=== PATIENT | female | born 1955 | race Caucasian/White ===

== ENCOUNTER 2017-12-22 17:22 | Emergency (ER) | payer SELFPAY ==
--- NOTE | 2017-12-22 18:23 | EDPHYS ---
Physician Documentation [facility] Name: Lisa Acosta Age: 62 yrs Sex: Female : 1955 Arrival Date: 12/22/2017 Time: 17:23 Bed 19 Private MD: ED Physician Gideon Cobos HPI: 12/22 18:12 This 62 yrs old Female presents to ER via Ambulatory with complaints of cp Insect Bite. 18:12 The patient presents with a bite, by an insect. The complaints affect the left gluteal cp fold. Onset: The symptoms/episode began/occurred noticed today. Associated signs and symptoms: Pertinent positives: drainage, Pertinent negatives fever. Historical: - Allergies: 17:40 Bactrim DS; aj - Home Meds: 17:40 metformin 500 mg Oral tab 2 times per day [Active]; morphine 15 mg Oral TbER 1 tab aj every 6 hours [Active]; - PMHx: 17:40 colon cancer (February 10, 2016); Diabetes - NIDDM; Hypertension; aj - PSHx: 17:40 None; aj - Immunization history:: Adult Immunizations up to date. - Social history:: Smoking status: Patient uses tobacco products, smokes one-half pack cigarettes per day. ROS: 18:13 Eyes: Negative for injury, pain, redness, and discharge. cp 18:13 Constitutional: Negative for body aches, chills, fever, poor PO intake. 18:13 ENT: Negative for drainage from ear(s), ear pain, sore throat, difficulty swallowing, difficulty handling secretions. 18:13 Cardiovascular: Negative for chest pain, edema, palpitations. 18:13 Respiratory: Negative for cough, shortness of breath, wheezing. 18:13 Abdomen/GI: Negative for abdominal pain, nausea, vomiting, and diarrhea. 18:13 Skin: Positive for cellulitis, of the left gluteal fold. 18:13 All other systems are negative. Exam: 18:19 Head/Face: Normocephalic, atraumatic. cp 18:19 Constitutional: The patient appears in no acute distress, alert, awake, non-toxic, well developed, well nourished. 18:19 Eyes: Periorbital structures: appear normal, Conjunctiva: normal, no exudate, no injection, Lids and lashes: appear normal, bilaterally. 18:19 ENT: External ear(s): are unremarkable, Nose: is normal, Mouth: is normal. 18:19 Chest/axilla: Inspection: normal, Palpation: is normal, no crepitus, no tenderness. 18:19 Cardiovascular: Rate: normal. 18:19 Respiratory: the patient does not display signs of respiratory distress, Respirations: normal, no use of accessory muscles, no retractions, no splinting, no tachypnea. 18:19 Abdomen/GI: Exam negative for discomfort, distension, guarding, Inspection: abdomen appears normal. 18:19 Skin: cellulitis, that is mild, well demarcated, on the left gluteal fold. Vital Signs: 17:40 BP 97 / 82; Pulse 90; Resp 21; Temp 98.2; Pulse Ox 96% on R/A; Weight 52.62 kg; Height aj 5 ft. 5 in. (165.10 cm); 17:40 Body Mass Index 19.30 (52.62 kg, 165.10 cm) MDM: 18:04 Patient medically screened. cp 18:20 Differential diagnosis: abscess, cellulitis, insect bite. cp 18:22 Data reviewed: vital signs, nurses notes, and as a result, I will discharge patient. cp 18:22 Counseling: I had a detailed discussion with the patient and/or guardian regarding: the cp historical points, exam findings, and any diagnostic results supporting the discharge/admit diagnosis, to return to the emergency department if symptoms worsen or persist or if there are any questions or concerns that arise at home. 12/22 18:18 Order name: Wound Culture cp Administered Medications: No medications were administered Disposition: 19:03 Co-signature as Attending Physician, Gideon Cobos MD. rn Disposition: 12/22/17 18:23 Discharged to Home. Impression: Cellulitis of left lower limb. - Condition is Stable. - Discharge Instructions: Cellulitis. - Prescriptions for Clindamycin HCl 300 mg Oral Capsule - take 1 capsule by ORAL route every 6 hours for 7 days; 28 capsule. - Medication Reconciliation Form, Thank You Letter, Antibiotic Education, Prescription Opioid Use form. - Follow up: Private Physician; When: 2 - 3 days; Reason: Recheck today's complaints. - Problem is new. - Symptoms are unchanged. Signatures: Dispatcher [employer] EDMS Jackson, Gisselle, RN RN Gideon Spencer MD MD rn Page, Corey, PA PA cp Elliott, Andrea, TANI RN ae1
--- NOTE | 2017-12-22 18:23 | ER ---
Nurse's Notes [facility] Name: Lisa Acosta Age: 62 yrs Sex: Female : 1955 Arrival Date: 12/22/2017 Time: 17:23 Bed 19 Private MD: Diagnosis: Cellulitis of left lower limb Presentation: 12/22 17:39 Presenting complaint: Patient states: Abscess to posterior left thigh that started 2 aj days ago. Transition of care: patient was not received from another setting of care. Onset of symptoms was December 20, 2017. Initial Sepsis Screen: Does the patient meet any 2 criteria? No. Patient's initial sepsis screen is negative. Does the patient have a suspected source of infection? No. Patient's initial sepsis screen is negative. Care prior to arrival: None. 17:39 Method Of Arrival: Ambulatory 17:39 Acuity: KIRAN 4 aj Triage Assessment: 17:40 Bite description: bite sustained to left hamstring by an unknown animal, animal aj information: vaccination(s) is not applicable. General: Appears in no apparent distress. comfortable, Behavior is calm, cooperative, appropriate for age. Pain: Complains of pain in left hamstring. Neuro: Level of Consciousness is awake, alert, obeys commands, Oriented to person, place, time, situation. Respiratory: Airway is patent Respiratory effort is even, unlabored, Respiratory pattern is regular, symmetrical. Derm: Skin is intact, is healthy with good turgor, Skin is pink, warm \T\ dry. normal. Derm: Abscess located on left hamstring is dime sized. Historical: - Allergies: 17:40 Bactrim DS; aj - Home Meds: 17:40 metformin 500 mg Oral tab 2 times per day [Active]; morphine 15 mg Oral TbER 1 tab aj every 6 hours [Active]; - PMHx: 17:40 colon cancer (February 10, 2016); Diabetes - NIDDM; Hypertension; aj - PSHx: 17:40 None; aj - Immunization history:: Adult Immunizations up to date. - Social history:: Smoking status: Patient uses tobacco products, smokes one-half pack cigarettes per day. Screenin:17 Abuse screen: Denies threats or abuse. Nutritional screening: No deficits noted. ae1 Tuberculosis screening: No symptoms or risk factors identified. Fall Risk None identified. Assessment: 18:15 General: Appears uncomfortable, slender, unkempt, Behavior is cooperative, anxious. ae1 Pain: Complains of pain in left hamstring. Neuro: Level of Consciousness is awake, alert, obeys commands, Oriented to person, place, time, situation. Cardiovascular: Patient's skin is warm and dry. Respiratory: Airway is patent Respiratory effort is even, unlabored, Respiratory pattern is regular, symmetrical. GI: No signs and/or symptoms were reported involving the gastrointestinal system. : No signs and/or symptoms were reported regarding the genitourinary system. EENT: No signs and/or symptoms were reported regarding the EENT system. Derm: Wound noted left hamstring Wound is Lesion is about the size of a dime with purulent drainage and surrounding redness, mild swelling to the circumference of the lesion. Derm: Musculoskeletal: No signs and/or symptoms reported regarding the musculoskeletal system. Vital Signs: 17:40 BP 97 / 82; Pulse 90; Resp 21; Temp 98.2; Pulse Ox 96% on R/A; Weight 52.62 kg; Height aj 5 ft. 5 in. (165.10 cm); 17:40 Body Mass Index 19.30 (52.62 kg, 165.10 cm) aj ED Course: 17:23 Patient arrived in ED. as 17:40 Triage completed. aj 17:40 Arm band placed on left wrist. Patient placed in an exam room. aj 18:03 Jeb March PA is PHCP. cp 18:03 Gideon Cobos MD is Attending Physician. cp 18:14 Fidencio Pinto, TANI is Primary Nurse. ae1 18:17 Placed in gown. Bed in low position. Call light in reach. Side rails up X 1. Pulse ox ae1 on. NIBP on. Warm blanket given. 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 ae1 18:36 Patient did not have IV access during this emergency room visit. ae1 Administered Medications: No medications were administered Outcome: 18:23 Discharge ordered by . cp 18:36 Discharged to home ambulatory. ae1 18:36 Condition: stable 18:36 Discharge instructions given to patient, Instructed on discharge instructions, follow up and referral plans. medication usage, Demonstrated understanding of instructions, Prescriptions given X 1. 18:37 Patient left the ED. ae1 Addendum: 12/25/2017 10:16 Addendum: Culture Results: Positive wound culture. Bacteria is resistant to, has i w intermediate sensitivity, or is not tested against prescribed antibiotics. Report given to BRE for further evaluation and then to tobacco scrap sifter for follow up with patient. Phone call Attempt #1 called in Doxycycline 100 mg PO BID X 7 days, #14, no refills, called in to [facility]. Signatures: Gisselle Jackson RN RN Aarti Helm Irene, RN RN Jeb Shin PA PA cp Elliott, Andrea, RN RN ae1
== END 2017-12-22 18:37 | disposition home or self-care (01) ==
LOC: ER 17:22
DX: L03.317 Cellulitis of buttock (principal); E11.9 Type 2 diabetes mellitus without complications; I10 Essential (primary) hypertension; Z88.1 Allergy status to other antibiotic agents
CPT/HCPCS: 87070; 87077; 87186; 87205; 99283

== ENCOUNTER 2018-03-14 13:23 | Inpatient (IN) | payer OTHER, SELFPAY ==
[2018-03-14] MEDS ORDERED: NA CHLORIDE 0.9% 1,000 ML ONE ×2 (14:30→21:32)
[2018-03-14 14:53] LABS: ALT/SGPT 14 U/L (12-78); AST/SGOT 16 U/L (15-37); Albumin 3.1 g/dL (3.4-5.0); Alkaline Phosphatase 63 U/L (45-117); BUN Blood Urea Nitrogen 11 mg/dL (7-18); Bicarbonate 27 mmol/L (21-32); Bilirubin Direct < 0.1 mg/dL (0-0.2); Bilirubin Total 0.3 mg/dL (0.2-1.0); Glucose Level 140 mg/dL (74-106); Lipase 63 U/L (73-393); Potassium 3.6 mmol/L (3.5-5.1); Protein, Total 5.8 g/dL (6.4-8.2); Sodium Level 138 mmol/L (136-145)
[2018-03-14 15:03] LABS: Absolute Lymphocytes (CBC) 0.4 K/uL (0.7-4.9); Absolute Monocytes 0.2 K/uL (0.1-1.3); Basophils % 0.4 % (0-1.3); Eosinophils % 0.3 % (0-4.4); Lymphocytes % 6.3 % (15.3-44.8); MCH 37.7 pg (27.0-35.0); MCV 109.7 fL (80-100); MPV 7.8 fL (7.6-11.3); Monocytes % 3.8 % (3.3-12.3); RBC Red Blood Cell Count 1.88 M/uL (3.86-4.86)
[2018-03-14 15:22] LABS: Hematocrit 20.6 % (36.0-45.0)
[2018-03-14 15:34] LABS: Urine Blood 2+ (NEG); Urine Glucose NEGATIVE (NEG); Urine Protein NEGATIVE (NEG); Urine Specific Gravity 1.025 (1.005-1.030); Urine pH 5.5 (5.0-7.0)
[2018-03-14 15:39] LABS: Protime INR 0.96
[2018-03-14 15:46] LABS: Urine Bacteria <20 /HPF (<20)
[2018-03-14 15:47] LABS: Urine Culture Reflex Order NOT NEEDED
--- NOTE | 2018-03-14 17:10 | RAD REPORT ---
EXAM DESCRIPTION: CT - Abdomen Pelvis W Contrast - 03/14/2018 4:38 pm CLINICAL HISTORY: Abdominal pain/hematochezia/colon cancer COMPARISON: 2016 TECHNIQUE: Computed axial tomography of the abdomen pelvis was obtained. 100 cc Isovue-300 was admin istered intravenously. Oral contrast was not requested which limits evaluation of bowel. All CT scans are performed using dose optimization technique as appropriate and may include automated exposure control or mA/KV adjustment according to patient size. FINDINGS: The liver, spleen, pancreas, adrenal and right kidney appear unremarkable. 5 millimeter no nobstructing left renal calculus is present. Gallstones are seen without gallbladder wall thickening. The wall of the rectum is thickened. No perirectal lymph nodes are visualized. The wall of a segment of ascending colon appears thickened The appendix is normal No omental/ mesenteric nodules are seen. A lipoma along the right lateral abdominal wall is unchanged IMPRESSION: The wall of the rectum is thickened. This could indicate a proctitis or recurrent neopla sm Apparent thickening of the the wall of the ascending colon probably secondary to incomplete distentio n with a mass considered less likely Endoscopy may be helpful
[2018-03-14] MEDS ORDERED: ACETAMINOPHEN 500 MG TAB PO PRN (17:39)
--- NOTE | 2018-03-14 17:42 | ER ---
Nurse's Notes [facility] Name: Lisa Acosta Age: 62 yrs Sex: Female : 1955 Arrival Date: 03/14/2018 Time: 13:26 Bed 8 Private MD: None, None Diagnosis: Gastrointestinal hemorrhage, unspecified Presentation: 03/14 13:35 Presenting complaint: Patient states: on third round of treatment for colon cancer, had iw radiation treatment X 2 years ago and was told she may have blood in stool but today she has had large clots of bright and dark red blood. Transition of care: patient was not received from another setting of care. Onset of symptoms was March 14, 2018. Risk Assessment: Do you want to hurt yourself or someone else? Patient reports no desire to harm self or others. Initial Sepsis Screen: Does the patient meet any 2 criteria? No. Patient's initial sepsis screen is negative. Does the patient have a suspected source of infection? No. Patient's initial sepsis screen is negative. Care prior to arrival: None. 13:35 Method Of Arrival: Ambulatory iw 13:35 Acuity: KIRAN 3 iw Historical: - Allergies: 13:39 Bactrim DS; iw - Home Meds: 13:39 morphine 30 mg oral tab every 4 hours [Active]; Hydrocodone-Acetaminophen Oral iw [Active]; metformin 500 mg Oral tab 2 times per day [Active]; 03/15 00:07 ondansetron HCl 4 mg oral tab every 6 hours for Cancer Chemotherapy-Induced Nausea and tl3 Vomiting [Active]; Valtrex 1 gram Oral tab 1 tab 3 times per day for as needed [Active]; nystatin 100,000 unit/mL Oral susp 5 mL 3 times a day [Active]; morphine 15 mg Oral TbER 1 tab every 12 hours [Active]; diphenoxylate-atropine 2.5-0.025 mg Oral tab 2 tabs 2 times per day for Diarrhea [Active]; voltaren gel daily [Active]; bupropion HCl 150 mg Oral TbER 1 tab 2 times per day [Active]; lorazepam 1 mg Oral tab 1 tab 2 times per day for Anxiety [Active]; hydrocodone-acetaminophen 10-325 mg/15 mL(15 mL) oral soln every 6 hours for Pain [Active]; lisinopril 5 mg Oral tab 1 tab once daily [Active]; Lidocaine Viscous 2 % Oral soln 15 mL every 3 hours [Active]; - PMHx: 03/14 13:39 colon cancer (February 10, 2016); Diabetes - NIDDM; Hypertension; iw - PSHx: 13:39 Hysterectomy; Hernia repair; iw - Immunization history:: Adult Immunizations. - Social history:: Smoking status: Patient uses tobacco products, smokes one-half pack cigarettes per day. - Ebola Screening: : Patient negative for fever greater than or equal to 101.5 degrees Fahrenheit, and additional compatible Ebola Virus Disease symptoms Patient denies exposure to infectious person Patient denies travel to an Ebola-affected area in the 21 days before illness onset No symptoms or risks identified at this time. Screenin:45 Abuse screen: Denies threats or abuse. Nutritional screening: No deficits noted. tl3 Tuberculosis screening: No symptoms or risk factors identified. Fall Risk None identified. Assessment: 13:45 General: Appears uncomfortable, slender, well groomed, well developed, well nourished, tl3 Behavior is calm, cooperative, appropriate for age. Pain: Denies pain. Neuro: Level of Consciousness is awake, alert, obeys commands, Oriented to person, place, time, situation, Appropriate for age. Cardiovascular: Heart tones S1 S2 present Patient's skin is warm and dry. Respiratory: Airway is patent Respiratory effort is even, unlabored, Respiratory pattern is regular, symmetrical, Breath sounds are clear bilaterally. GI: Reports rectal bleeding, since yesterday had only one or two episodes but today has had nine or so, clot are bright red, pt on Chemo for colon cancer. : No signs and/or symptoms were reported regarding the genitourinary system. EENT: No signs and/or symptoms were reported regarding the EENT system. Derm: No signs and/or symptoms reported regarding the dermatologic system. 16:14 Reassessment: Patient appears in no apparent distress at this time. No changes from tl3 previously documented assessment. Patient and/or family updated on plan of care and expected duration. Pain level reassessed. Patient is alert, oriented x 3, equal unlabored respirations, skin warm/dry/pink. pt resting quietly. 17:15 Reassessment: Patient appears in no apparent distress at this time. No changes from tl3 previously documented assessment. Patient and/or family updated on plan of care and expected duration. Pain level reassessed. Patient is alert, oriented x 3, equal unlabored respirations, skin warm/dry/pink. pt has made several trips to the restroom for BM with blood clots present, last one was dime sized. 19:00 Reassessment: Patient appears in no apparent distress at this time. No changes from tl3 previously documented assessment. Patient and/or family updated on plan of care and expected duration. Pain level reassessed. Patient is alert, oriented x 3, equal unlabored respirations, skin warm/dry/pink. awaiting room assignment, ER Hold. Vital Signs: 13:39 BP 97 / 77; Pulse 100; Resp 18; Temp 98.0; Pulse Ox 100% on R/A; Weight 50.35 kg; iw Height 5 ft. 5 in. (165.10 cm); Pain 7/10; 13:45 BP 98 / 63; Pulse 73; Resp 18; Pulse Ox 100% on R/A; tl3 16:14 Pulse 74; Resp 18; Pulse Ox 98% ; tl3 17:23 BP 121 / 71; Pulse 84; Resp 18; Pulse Ox 100% ; tl3 18:00 BP 101 / 64; Pulse 87; Resp 18; Pulse Ox 100% ; tl3 19:00 BP 122 / 72; Pulse 98; Resp 16; Pulse Ox 100% ; tl3 07/17 03:59 BP 99 / 66; Pulse 75; Resp 16; Pulse Ox 99% on R/A; mt 06:52 BP 107 / 69; Pulse 95; Resp 18; Pulse Ox 96% on R/A; mt 03/14 13:39 Body Mass Index 18.47 (50.35 kg, 165.10 cm) iw ED Course: 03/14 13:26 Patient arrived in ED. mr 13:26 None, None is Private Physician. mr 13:38 Triage completed. iw 13:39 Arm band placed on. iw 13:41 Ranjeet Malcolm MD is Attending Physician. gs 13:45 Patient has correct armband on for positive identification. Placed in gown. Bed in low tl3 position. Call light in reach. Side rails up X 1. Pulse ox on. NIBP on. 13:45 No provider procedures requiring assistance completed. Inserted saline lock: 20 gauge tl3 in right forearm, using aseptic technique. 13:56 Jenifer Santos, RN is Primary Nurse. tl3 15:27 Notified ED physician of a critical lab result(s). Hgb=7.1, Hct=20.6. iw 16:17 Urine Dipstick--Ancillary (enter results) Sent. tl3 16:[address] tl3 16:39 CT Abd/Pelvis - W/Contrast In Process Unspecified. EDMS 16:39 CT completed. Patient tolerated procedure well. Patient moved back from CT. in 17:41 Thais Viveros MD is Hospitalizing Provider. gs 23:28 Patient admitted, IV remains in place. bb 03/15 05:43 Primary Nurse role handed off by Jenifer Santos RN rg2 Administered Medications: 03/14 14:30 Drug: NS 0.9% 1000 ml Route: IV; Rate: 1 bolus; Site: right forearm; Delivery: Primary tl3 tubing; 16:13 Follow up: IV Status: Completed infusion; IV Intake: 1000ml tl3 Intake: 16:13 IV: 1000ml; Total: 1000ml. tl3 Outcome: 17:42 Decision to Hospitalize by Provider. gs 20:00 Admitted to ER Hold. Please see [facility] for further documentation. 23:28 Condition: unchanged bb 03/15 08:39 Patient left the ED. ae1 Signatures: Dispatcher [employer] EDMS Kay Ardon rg2 Agnes Lin Brenda, RN RN bb Kathy Gotti RN RN Fidencio Pinto RN RN ae1 [place] mt Starr, Gregory, MD MD Jenifer Santos, RN RN tl3 Corrections: (The following items were deleted from the chart) 03/14 16:12 13:45 GI: Reports rectal bleeding, since yesterday had only one or two episodes but tl3 today has had nine or so, clot are bright red tl3 03/15 00:11 03/14 13:39 Home Meds: Ondansetron Oral; iw tl3
--- NOTE | 2018-03-14 17:43 | EDPHYS ---
Physician Documentation [facility] Name: Lisa Acosta Age: 62 yrs Sex: Female : 1955 Arrival Date: 03/14/2018 Time: 13:26 Bed 8 Private MD: None, None ED Physician Ranjeet Malcolm HPI: 03/14 17:58 This 62 yrs old Female presents to ER via Ambulatory with complaints of gs Bloody Stools. 17:58 The patient presents to the emergency department with rectal bleeding, a moderate gs amount. Onset: The symptoms/episode began/occurred yesterday. Abdominal pain: none is appreciated. Modifying factors: The symptoms are alleviated by nothing, the symptoms are aggravated by nothing. Associated signs and symptoms: Pertinent negatives: fever. Severity of symptoms: At their worst the symptoms were moderate in the emergency department the symptoms are unchanged. The patient has experienced similar episodes in the past, a few times. Historical: - Allergies: 13:39 Bactrim DS; iw - Home Meds: 13:39 morphine 30 mg oral tab every 4 hours [Active]; Hydrocodone-Acetaminophen Oral iw [Active]; metformin 500 mg Oral tab 2 times per day [Active]; 03/15 00:07 ondansetron HCl 4 mg oral tab every 6 hours for Cancer Chemotherapy-Induced Nausea and tl3 Vomiting [Active]; Valtrex 1 gram Oral tab 1 tab 3 times per day for as needed [Active]; nystatin 100,000 unit/mL Oral susp 5 mL 3 times a day [Active]; morphine 15 mg Oral TbER 1 tab every 12 hours [Active]; diphenoxylate-atropine 2.5-0.025 mg Oral tab 2 tabs 2 times per day for Diarrhea [Active]; voltaren gel daily [Active]; bupropion HCl 150 mg Oral TbER 1 tab 2 times per day [Active]; lorazepam 1 mg Oral tab 1 tab 2 times per day for Anxiety [Active]; hydrocodone-acetaminophen 10-325 mg/15 mL(15 mL) oral soln every 6 hours for Pain [Active]; lisinopril 5 mg Oral tab 1 tab once daily [Active]; Lidocaine Viscous 2 % Oral soln 15 mL every 3 hours [Active]; - PMHx: 03/14 13:39 colon cancer (February 10, 2016); Diabetes - NIDDM; Hypertension; iw - PSHx: 13:39 Hysterectomy; Hernia repair; iw - Immunization history:: Adult Immunizations. - Social history:: Smoking status: Patient uses tobacco products, smokes one-half pack cigarettes per day. - Ebola Screening: : Patient negative for fever greater than or equal to 101.5 degrees Fahrenheit, and additional compatible Ebola Virus Disease symptoms Patient denies exposure to infectious person Patient denies travel to an Ebola-affected area in the 21 days before illness onset No symptoms or risks identified at this time. ROS: 17:58 All other systems are negative. gs Exam: 17:58 Head/Face: Normocephalic, atraumatic. Eyes: Pupils equal round and reactive to light, gs extra-ocular motions intact. Lids and lashes normal. Conjunctiva and sclera are non-icteric and not injected. Cornea within normal limits. Periorbital areas with no swelling, redness, or edema. ENT: Nares patent. No nasal discharge, no septal abnormalities noted. Tympanic membranes are normal and external auditory canals are clear. Oropharynx with no redness, swelling, or masses, exudates, or evidence of obstruction, uvula midline. Mucous membranes moist. Neck: Trachea midline, no thyromegaly or masses palpated, and no cervical lymphadenopathy. Supple, full range of motion without nuchal rigidity, or vertebral point tenderness. No Meningismus. Chest/axilla: Normal chest wall appearance and motion. Nontender with no deformity. No lesions are appreciated. Cardiovascular: Regular rate and rhythm with a normal S1 and S2. No gallops, murmurs, or rubs. Normal PMI, no JVD. No pulse deficits. Respiratory: Lungs have equal breath sounds bilaterally, clear to auscultation and percussion. No rales, rhonchi or wheezes noted. No increased work of breathing, no retractions or nasal flaring. Abdomen/GI: Soft, non-tender, with normal bowel sounds. No distension or tympany. No guarding or rebound. No evidence of tenderness throughout. Back: No spinal tenderness. No costovertebral tenderness. Full range of motion. Skin: Warm, dry with normal turgor. Normal color with no rashes, no lesions, and no evidence of cellulitis. MS/ Extremity: Pulses equal, no cyanosis. Neurovascular intact. Full, normal range of motion. Neuro: Awake and alert, GCS 15, oriented to person, place, time, and situation. Cranial nerves II-XII grossly intact. Motor strength 5/5 in all extremities. Sensory grossly intact. Cerebellar exam normal. Normal gait. 17:58 Constitutional: The patient appears alert, awake. Vital Signs: 13:39 BP 97 / 77; Pulse 100; Resp 18; Temp 98.0; Pulse Ox 100% on R/A; Weight 50.35 kg; iw Height 5 ft. 5 in. (165.10 cm); Pain 7/10; 13:45 BP 98 / 63; Pulse 73; Resp 18; Pulse Ox 100% on R/A; tl3 16:14 Pulse 74; Resp 18; Pulse Ox 98% ; tl3 17:23 BP 121 / 71; Pulse 84; Resp 18; Pulse Ox 100% ; tl3 18:00 BP 101 / 64; Pulse 87; Resp 18; Pulse Ox 100% ; tl3 19:00 BP 122 / 72; Pulse 98; Resp 16; Pulse Ox 100% ; tl3 03/15 03:59 BP 99 / 66; Pulse 75; Resp 16; Pulse Ox 99% on R/A; mt 06:52 BP 107 / 69; Pulse 95; Resp 18; Pulse Ox 96% on R/A; mt 03/14 13:39 Body Mass Index 18.47 (50.35 kg, 165.10 cm) iw MDM: 03/14 13:51 Patient medically screened. 17:58 Differential diagnosis: gastritis, diverticulitis, hemorrhoids, tumor. Data reviewed: vital signs, nurses notes. Physician consultation: Oswald Martinez MD and will see patient in inpatient room. ED course: last chemo . 17:58 Physician consultation: Thais Viveros MD and will see patient in ED. 03/14 13:55 Order name: Basic Metabolic Panel; Complete Time: 16:02 03/14 13:55 Order name: CBC with Diff; Complete Time: 16:02 03/14 13:55 Order name: Hepatic Function; Complete Time: 16:02 03/14 13:55 Order name: Lipase; Complete Time: 16:02 03/14 13:55 Order name: Urine Microscopic Only; Complete Time: 16:02 03/14 13:55 Order name: Type And Screen 03/14 13:55 Order name: PT-INR; Complete Time: 16:02 03/14 15:25 Order name: Urine Dipstick--Ancillary (enter results) 03/14 15:25 Order name: Urine Dipstick-Ancillary; Complete Time: 16:02 EDND 03/14 15:36 Order name: ABO/RH no charge; Complete Time: 16:02 EDND 03/14 17:43 Order name: Basic Metabolic Panel EDND 03/14 17:43 Order name: Basic Metabolic Panel [facility] 03/14 17:43 Order name: Basic Metabolic Panel [facility] 03/14 17:43 Order name: Basic Metabolic Panel [facility] 03/14 16:03 Order name: CT Abd/Pelvis - W/Contrast; Complete Time: 17:11 03/14 17:43 Order name: CBC with Automated Diff EDND 03/14 17:43 Order name: CBC with Automated Diff [facility]ND 03/14 17:43 Order name: CBC with Automated Diff EDND 03/14 17:43 Order name: CBC with Automated Diff [facility] 03/14 17:43 Order name: Hematocrit [facility] 03/14 17:43 Order name: Hematocrit [facility] 03/14 17:43 Order name: Hematocrit [facility] 03/14 17:43 Order name: Hematocrit [facility] 03/14 17:43 Order name: Hemoglobin [facility] 03/14 17:43 Order name: Hemoglobin [facility] 03/14 17:43 Order name: Hemoglobin [facility] 03/14 17:43 Order name: Hemoglobin EDND 03/14 22:43 Order name: Glucose, Ancillary Testing EDND 03/15 06:59 Order name: Manual Differential [facility] 03/14 13:55 Order name: IV Saline Lock; Complete Time: 15:14 03/14 13:55 Order name: Labs collected and sent; Complete Time: 15:14 03/14 13:55 Order name: Urine Dipstick-Ancillary (obtain specimen); Complete Time: 15:14 03/14 17:43 Order name: CONS Pharmacy Consult [facility] 03/14 17:43 Order name: CONS Physician Consult [facility] 03/14 17:43 Order name: NPO; Complete Time: 19:47 EDMS Administered Medications: 14:30 Drug: NS 0.9% 1000 ml Route: IV; Rate: 1 bolus; Site: right forearm; Delivery: Primary tl3 tubing; 16:13 Follow up: IV Status: Completed infusion; IV Intake: 1000ml tl3 Disposition: 03/14/18 17:42 Hospitalization ordered by Thais Viveros for Inpatient Admission. Preliminary diagnosis is Gastrointestinal hemorrhage, unspecified. - Bed requested for Intensive Care Unit. - Status is Inpatient Admission. ae1 - Condition is Stable. - Problem is an acute exacerbation. - Symptoms have improved. UTI on Admission? No Critical care time excluding procedures: 17:58 Critical care time: Bedside Care: 10 minutes, Consultation: 10 minutes, Family gs Intervention: 10 minutes. Total time: 30 minutes Signatures: Dispatcher [employer] EDMS Kay Ardon rg2 Tania Rabago RN RN Kathy Gotti RN TANI Fidencio Pinto RN RN ae1 Ranjeet Malcolm MD MD Jenifer Santos RN RN tl3 Jazmyne Das Corrections: (The following items were deleted from the chart) 17:49 17:42 Hospitalization Ordered by Thais Viveros MD for Inpatient Admission. Preliminary eb diagnosis is Gastrointestinal hemorrhage, unspecified. Bed requested for Telemetry/MedSurg (Inpatient). Status is Inpatient Admission. Condition is Stable. Problem is an acute exacerbation. Symptoms have improved. UTI on Admission? No. gs 19:24 17:49 03/14/2018 17:42 Hospitalization Ordered by Thais Viveros MD for Inpatient rg2 Admission. Preliminary diagnosis is Gastrointestinal hemorrhage, unspecified. Bed requested for Telemetry/MedSurg (Inpatient). Status is Inpatient Admission. Condition is Stable. Problem is an acute exacerbation. Symptoms have improved. UTI on Admission? No. eb 03/15 00:11 03/14 13:39 Home Meds: Ondansetron Oral; tl3 03/15 05:46 03/14 19:24 03/14/2018 17:42 Hospitalization Ordered by Thais Viveros MD for Inpatient kl Admission. Preliminary diagnosis is Gastrointestinal hemorrhage, unspecified. Bed requested for [facility] ER HOLD. Status is Inpatient Admission. Condition is Stable. Problem is an acute exacerbation. Symptoms have improved. UTI on Admission? No. rg2 03/15 08:39 05:46 03/14/2018 17:42 Hospitalization Ordered by Thais Viveros MD for Inpatient ae1 Admission. Preliminary diagnosis is Gastrointestinal hemorrhage, unspecified. Bed requested for Intensive Care Unit. Status is Inpatient Admission. Condition is Stable. Problem is an acute exacerbation. Symptoms have improved. UTI on Admission? No. kl
[2018-03-14] MEDS ORDERED: D50W 25 GM/50 ML SYRINGE IV PRN (17:57)
[2018-03-14] MEDS ORDERED: GLUCAGON 1 MG/VIAL IM PRN (17:57)
[2018-03-14] MEDS ORDERED: NA CHLORIDE 0.9% 250 ML IV SCH (18:00)
[2018-03-14] MEDS: NA CHLORIDE 0.9% 1,000 ML IV SCH (18:00)
[2018-03-14] MEDS ORDERED: FUROSEMIDE 20 MG/ 2ML VIAL IV SCH (18:50)
[2018-03-14 19:52] LABS: Hematocrit 20.8 % (36.0-45.0)
[2018-03-14] MEDS ORDERED: NA CHLORIDE 0.9% 100 ML IV ONE (20:14)
[2018-03-14] MEDS ORDERED: NA CHLORIDE 0.9% 500 ML ONE (20:31)
[2018-03-14] MEDS: PANTOPRAZOLE 40 MG INJ IVP SCH (21:00)
[2018-03-14] MEDS: INSULIN -REGULAR HUMAN 50 UNIT/0.5 ML ML SQ SCH (21:00)
[2018-03-14 21:19] VITALS: BMI 18.4
[2018-03-14] MEDS ORDERED: HYDROCORTISONE SUC 100 MG INJ IV ONE (21:31)
[2018-03-14] MEDS ORDERED: PANTOPRAZOLE 40 MG INJ ONE (21:32)
[2018-03-14] MEDS ORDERED: NA CHLORIDE 0.9% 250 ML IV ONE (21:36)
[2018-03-14] MEDS ORDERED: HYDROCORTISONE SUC 100 MG INJ ONE (22:20)
[2018-03-15] MEDS ORDERED: FUROSEMIDE 20 MG/ 2ML VIAL ONE (01:25)
[2018-03-15 02:38] LABS: Hematocrit 30.4 % (36.0-45.0)
--- NOTE | 2018-03-15 04:32 | HP ---
Date of Admission: 03/14/2018 Primary Care Physician: Out of town. Chief Complaint: GI bleed. History Of Present Illness: The patient is a 62-year-old female with past medical history of colon cancer diagnosed 2 years ago, currently on chemotherapy at [facility] with last treatment on . The patient comes in with multiple episodes of GI bleeds today with bright red blood per rectum. The patient otherwise denies any nausea, vomiting, fever, or chills. Does report a little bit of lightheadedness. No dizziness or loss of consciousness. The patient's symptoms are constant, moderate, progressively worsening. No alleviating or aggravating factor. The patient came into the ER for further evaluation. Upon workup, her hemoglobin was 7.1. The patient was referred for admission for GI bleed. Dr. Martinez was consulted by the ER, who said he would evaluate the patient. The patient was then referred for admission. Past Medical History: History of colon cancer diagnosed 2 years ago. Currently on chemotherapy, diabetes, and hypertension. Past Surgical History: Hysterectomy and hernia repair bilaterally. Allergies: BACTRIM. Medications: List reviewed. Social History: The patient denies any alcohol use. Does smoke 2 packs per day , now cutting down to less than half a pack per day. Has been smoking for many years. Family History: Sister has leukemia. Review of Systems: An 11-point system reviewed, negative except as per HPI. Physical Examination: Vital Signs: Blood pressure 97/77, pulse 100, respirations 18, temperature 98, O2 100% on room air. General: Awake, alert, oriented x3, some mild distress, appears older than stated age female. HEENT: Normocephalic, atraumatic. PERRLA. EOMI. Dry mucous membranes. Oropharynx is clear. Poor dentition. Conjunctivae are anicteric. Neck: Supple. No JVD. Trachea midline. CV: S1, S2. Positive for murmur. Peripheral pulses are weak bilaterally. Respiratory: Moving air well bilaterally. No wheezing. No stridor. Gastrointestinal: Abdomen is soft. Mild tenderness to palpation in the suprapubic region. No guarding or rigidity. Bowel sounds positive. Extremities: No clubbing, cyanosis, or edema. Neuro: Cranial nerves 2 through 12 intact grossly. No focal neurological deficits. Speech is normal. Strength is symmetric in bilateral upper and lower extremities. Skin: No rashes. Normal skin turgor. Psych: Mood is okay. Affect is full. Insight and judgment are good. Laboratory Data: UA; negative nitrite, negative leukocyte, 5-10 rbc, 10-20 squamous epithelial cells, less than 20 bacteria. Sodium 138, potassium 3.6, chloride 104, CO2 of 27, BUN 11, creatinine 0.5, glucose 140, calcium 8, AST 16 , ALT is 14, albumin 3.1, INR 0.96. WBC 5.6, H and H 7.1 and 20.6, platelets 174. CT scan of the abdomen and pelvis personally reviewed, shows wall of the rectum is thickened. This could indicate a proctitis or recurrent neoplasm, apparent thickening of the wall of the ascending colon, probably secondary to incomplete distention with the mass considered less likely, endoscopy may be helpful. Assessment: A 62-year-old female with; 1. Acute gastrointestinal bleed. 2. Possible colitis. 3. Hypotension. 4. Diabetes mellitus type 2, non-insulin dependent. 5. Gastrointestinal, deep vein thrombosis prophylaxis addressed. No chemical anticoagulation due to gastrointestinal bleed. 6. Acute blood loss anemia: transfuse PRBCs. Monitor HH Plan: Consult GI. The patient will need blood transfusion. We will monitor H and H. Overall prognosis is poor. We will admit to ICU. We will obtain echocardiogram for murmur. MICHELLE Voice ID: [id number] DERIK
[2018-03-15] MEDS: NA CHLORIDE 0.9% 1,000 ML IV SCH ×2 (05:30→15:24)
[2018-03-15] MEDS ORDERED: NA CHLORIDE 0.9% 1,000 ML ONE (06:18)
[2018-03-15 06:19] LABS: Absolute Lymphocytes (CBC) 0.4 K/uL (0.7-4.9); Absolute Monocytes 0.2 K/uL (0.1-1.3); Absolute Neutrophil 2.7 K/uL (1.8-8.0); Basophils % 0.5 % (0-1.3); Eosinophils % 0.1 % (0-4.4); Hematocrit 25.3 % (36.0-45.0); Lymphocytes % 10.8 % (15.3-44.8); MCH 34.6 pg (27.0-35.0); MCV 98.4 fL (80-100); MPV 7.7 fL (7.6-11.3); Monocytes % 7.2 % (3.3-12.3); RBC Red Blood Cell Count 2.57 M/uL (3.86-4.86)
[2018-03-15 06:29] LABS: BUN Blood Urea Nitrogen 9 mg/dL (7-18); Bicarbonate 29 mmol/L (21-32); Glucose Level 128 mg/dL (74-106); Potassium 3.5 mmol/L (3.5-5.1); Sodium Level 141 mmol/L (136-145)
[2018-03-15 06:58] LABS: Platelet Estimate ADEQ
[2018-03-15 06:59] LABS: Anisocytosis 1+; Blood Morphology Comment NOTED (NOT SEEN); Poikilocytosis 1+
[2018-03-15] MEDS: INSULIN -REGULAR HUMAN 50 UNIT/0.5 ML ML SQ SCH ×4 (07:30→20:36)
[2018-03-15] MEDS: PANTOPRAZOLE 40 MG INJ IVP SCH ×2 (08:59→20:14)
--- NOTE | 2018-03-15 15:12 | PN ---
Date of Progress Note: 03/15/2018 Subjective: The patient is seen and examined, chart reviewed, and case discussed with RN. The patient had 1 further episode of bright red blood per rectum. She denies any lightheadedness or dizziness. Transferred up to the ICU this morning. Review of Systems: Negative except as above. Medications: List reviewed. Objective: Vital Signs: Temperature 97.8, heart rate 79, blood pressure 121/78 , respirations 17, O2 saturation 99% on room air. General: Awake, alert, oriented x3. Some mild distress, appears older than stated age. Cachectic female. BMI 18. CV: S1, S2. Positive murmur. Systolic ejection murmur, 3/6. Peripheral pulses present. Respiratory: Moving air well bilaterally. No wheezing. No stridor . Gastrointestinal: Abdomen is soft, nontender, nondistended. Positive bowel sounds. No guarding or rigidity. Extremities: No clubbing, cyanosis, or edema. No calf tenderness. Neuro: Cranial nerves 2 through 12 intact grossly. No focal deficits. Speech is normal. Skin: No rashes. Normal skin turgor. Laboratory Data: Sodium 141, potassium 3.5, chloride 106, CO2 29, BUN 9, creatinine 0.5, glucose 128, and calcium 8. H and H after transfusion went up to 10.6 this morning. WBC 3.3, H and H is 8.9, 25.3, platelets 131, and neutrophils 81%. Assessment And Plan: A 62-year-old female with; 1. Acute gastrointestinal bleed. The patient has bright red blood per rectum. We will keep n.p.o. for now. The patient will likely need scope. Dr. Martinez has been consulted. We will monitor for signs of bleeding. 2. Acute blood loss anemia secondary to above. The patient has been transfused 2 units of PRBCs. We will continue to monitor H and H, transfuse as needed. 3. hypotension. 4. Diabetes mellitus type 2, non-insulin dependent. We will continue with sliding scale insulin and Accu-Cheks. 5. Gastrointestinal and deep venous thrombosis prophylaxis addressed. No chemical anticoagulation due to gastrointestinal bleed. ADDENDUM: Spoke w Dr. Laws. Monitor HH for now, transfuse as needed. No immediate intervention planned. /LINDA Voice ID: [id number] Report ID: [id number] MTDD
[2018-03-15] MEDS ORDERED: DIPHENOX/ATROP SULF 1 TAB PO PRN (17:11)
[2018-03-15] MEDS ORDERED: VALACYCLOVIR 500 MG TAB PO PRN (17:11)
[2018-03-15] MEDS ORDERED: NYSTATIN 500,000 UNIT/5 ML UDC PO PRN (17:11)
[2018-03-15] MEDS ORDERED: BUPROPION HCL XL 150 MG TAB PO PRN (17:11)
[2018-03-15 17:13] LABS: Hematocrit 28.7 % (36.0-45.0)
[2018-03-15] MEDS: METRONIDAZOLE 500mg IVPB 500 MG/100 ML BAG IV SCH (17:30)
[2018-03-15] MEDS: MORPHINE *EXTENDED RELEASE* 15 MG TAB PO PRN (19:54)
[2018-03-15] MEDS: ENSURE ENLIVE 237 ML CAN PO SCH (20:12)
[2018-03-15] MEDS: CIPROFLOXACIN 400mg IV 400 MG/200 ML BAG IV SCH (20:12)
[2018-03-15] MEDS: LIDOCAINE VISCOUS 2% SOLN 15 ML UDC PO SCH (20:14)
[2018-03-16] MEDS: METRONIDAZOLE 500mg IVPB 500 MG/100 ML BAG IV SCH ×3 (01:06→16:56)
[2018-03-16] MEDS: NA CHLORIDE 0.9% 1,000 ML IV SCH (01:07)
[2018-03-16] MEDS: LORAZEPAM 1 MG TABLET PO PRN (02:48)
[2018-03-16 05:20] LABS: Absolute Lymphocytes (CBC) 0.3 K/uL (0.7-4.9); Absolute Monocytes 0.3 K/uL (0.1-1.3); Absolute Neutrophil 3.4 K/uL (1.8-8.0); Basophils % 0.3 % (0-1.3); Eosinophils % 1.2 % (0-4.4); Hematocrit 23.4 % (36.0-45.0); Lymphocytes % 7.6 % (15.3-44.8); MCH 34.8 pg (27.0-35.0); MCV 99.4 fL (80-100); MPV 7.6 fL (7.6-11.3); Monocytes % 7.6 % (3.3-12.3); RBC Red Blood Cell Count 2.36 M/uL (3.86-4.86)
[2018-03-16 07:01] LABS: BUN Blood Urea Nitrogen 7 mg/dL (7-18); Bicarbonate 28 mmol/L (21-32); Glucose Level 114 mg/dL (74-106); Sodium Level 144 mmol/L (136-145)
[2018-03-16 07:11] LABS: Potassium 2.8 mmol/L (3.5-5.1)
[2018-03-16] MEDS: INSULIN -REGULAR HUMAN 50 UNIT/0.5 ML ML SQ SCH ×4 (07:30→21:00)
[2018-03-16] MEDS: MORPHINE *EXTENDED RELEASE* 15 MG TAB PO PRN ×2 (07:38→21:38)
[2018-03-16] MEDS ORDERED: POTASSIUM CL 40 MEQ in NA CHLORIDE 0.9% 500 ML IV SCH (08:00)
[2018-03-16] MEDS: LISINOPRIL 5 MG TAB PO SCH (08:05)
[2018-03-16] MEDS: PANTOPRAZOLE 40 MG INJ IVP SCH ×2 (08:05→21:34)
[2018-03-16] MEDS: CIPROFLOXACIN 400mg IV 400 MG/200 ML BAG IV SCH ×2 (08:06→21:34)
[2018-03-16] MEDS: ENSURE ENLIVE 237 ML CAN PO SCH ×2 (08:06→21:00)
[2018-03-16] MEDS: LIDOCAINE VISCOUS 2% SOLN 15 ML UDC PO SCH ×3 (08:07→21:35)
--- NOTE | 2018-03-16 14:46 | PN ---
Date of Progress Note: 03/16/2018 Subjective: The patient seen and examined. Chart reviewed and case discussed with RN and Dr. Rodger pearce. The patient states her bloody diarrhea is improving and not having any bright red blood, but gurvinder e clots. She feels better. The patient received a total of 2 units of blood yesterday. Review of Systems: Negative except as above. Medications: List reviewed. Physical Examination: Vital signs: Temperature 98.5, heart rate 68, blood pressure 115/98, respirations 15, O2 98% on room air. General: Awake, alert, oriented x3 some mild distress, appears older than her stated age. Cachectic ill-appearing female. CV: S1 and S2. No murmurs. Regular rate and rhythm. Peripheral pulses present. Respiratory: Clear to auscultation bilaterally. No wheezing. No stridor. No use of accessory musc les. Gastrointestinal: Abdomen is soft, nontender, nondistended. Positive bowel sounds. Extremities: No clubbing, cyanosis, edema. Neurologic: Nonfocal. Laboratory Data: Sodium 144, potassium 2.8, chloride 110, CO2 of 28, BUN 7, creatinine 0.4, glucose 114, calcium 8. WBC 4, H and H 8.2 and 23.4, platelets 123, neutrophils 83%. Stool studies pending. Assessment And Plan: A 62-year-old female with: 1.Acute gastrointestinal bleed. The patient's bleeding has slowed down, may be secondary to colitis versus effects of chemotherapy and radiation. GI on the case. The patient had recent complete work up at [facility]. No intervention at this time. 2.Acute blood loss anemia secondary to above. The patient has received 4 units of blood total. We will continue to monitor H and H and transfuse as needed. 3.Hypertension, improving. Blood pressure now stable. 4.Diabetes mellitus type 2, non-insulin dependent with hyperglycemia. Continue sliding scale insuli n, Accu-Cheks. 5.Hypokalemia. We will replace and monitor. Check magnesium level. 6.GI and DVT prophylaxis. PPI and SCDs. No chemical anticoagulation. Plan: Continue IV PPI. We will transfer down to floor. Monitor closely. /LINDA Voice ID: [id number] Report ID: [id number]
[2018-03-17] MEDS: METRONIDAZOLE 500mg IVPB 500 MG/100 ML BAG IV SCH ×3 (00:39→16:42)
[2018-03-17] MEDS: LORAZEPAM 1 MG TABLET PO PRN (00:41)
[2018-03-17 05:27] LABS: BUN Blood Urea Nitrogen 5 mg/dL (7-18); Bicarbonate 30 mmol/L (21-32); Glucose Level 126 mg/dL (74-106); Potassium 3.5 mmol/L (3.5-5.1); Sodium Level 145 mmol/L (136-145)
[2018-03-17 05:32] LABS: Absolute Lymphocytes (CBC) 0.4 K/uL (0.7-4.9); Absolute Monocytes 0.4 K/uL (0.1-1.3); Absolute Neutrophil 2.9 K/uL (1.8-8.0); Basophils % 0.2 % (0-1.3); Eosinophils % 2.4 % (0-4.4); Hematocrit 22.6 % (36.0-45.0); MCH 34.8 pg (27.0-35.0); MCV 100.4 fL (80-100); MPV 7.8 fL (7.6-11.3); Monocytes % 9.8 % (3.3-12.3); RBC Red Blood Cell Count 2.25 M/uL (3.86-4.86)
[2018-03-17] MEDS: INSULIN -REGULAR HUMAN 50 UNIT/0.5 ML ML SQ SCH ×4 (07:30→21:00)
[2018-03-17] MEDS: CIPROFLOXACIN 400mg IV 400 MG/200 ML BAG IV SCH ×2 (09:25→21:46)
[2018-03-17] MEDS: ENSURE ENLIVE 237 ML CAN PO SCH ×2 (09:26→21:47)
[2018-03-17] MEDS: LISINOPRIL 5 MG TAB PO SCH (09:27)
[2018-03-17] MEDS: PANTOPRAZOLE 40 MG INJ IVP SCH ×2 (09:28→21:47)
[2018-03-17] MEDS: LIDOCAINE VISCOUS 2% SOLN 15 ML UDC PO SCH ×3 (09:28→21:47)
[2018-03-17 15:06] LABS: Hematocrit 24.8 % (36.0-45.0)
[2018-03-17] MEDS: MORPHINE *EXTENDED RELEASE* 15 MG TAB PO PRN (16:41)
--- NOTE | 2018-03-17 18:24 | PN ---
Date of Progress Note: 03/17/2018 Subjective: The patient seen and examined. Chart reviewed and case discussed with RN. The patient moved out of ICU yesterday, doing well, had several bouts of diarrhea, however, very little clot blee ding. Review of Systems: Negative except as above. Medications: Reviewed. Physical Examination: Vital Signs: Temperature 97.3, heart rate 72, blood pressure 124/74, respirations 12, O2 of 97% on r oom air. General: Awake, alert, oriented, no acute distress. CV: S1, S2. No murmurs. Respiratory: Moving air well bilaterally. Gastrointestinal: Abdomen is soft. Mild tenderness to palpation in the epigastric region. No rebou nd or guarding. No distention. Bowel sounds positive. Extremities: No clubbing, cyanosis, edema. Neurologic: Nonfocal. Laboratory Data: WBC 3.8, H and H are 7.8 and 22.6, platelets 115, neutrophils 76%. Sodium 145, pot assium 3.5, chloride 112, CO2 of 30, BUN 5, creatinine 0.5, glucose 126, calcium 8.3. C. diff is neg ative. Fecal leukocyte stain is few. Assessment And Plan: A 62-year-old female with: 1.Gastrointestinal bleed, acute, improving. This is likely secondary to chemotherapy and colitis. 2.Acute colitis. We will continue with IV antibiotics. Clostridium difficile ruled out. Stool cul tures pending. 3.Acute blood loss anemia secondary to gastrointestinal bleed, status post 4 units to packed red blo od cells. Continue to monitor H and H. hemoglobin is down to 7.8 today, however, improved overall. We will continue to monitor. 4.Hypotension, improving. Blood pressure now stable. 5.Diabetes mellitus type 2, non-insulin dependent with hyperglycemia. We will continue sliding-scal e insulin. 6.Hypokalemia, replaced. We will continue to monitor. 7.Gastrointestinal, deep vein thrombosis prophylaxis with proton-pump inhibitor and SCDs. No chemic al anticoagulation secondary to gastrointestinal bleed. SA/MODL Voice ID: [id number] Report ID: [id number]
[2018-03-18] MEDS: METRONIDAZOLE 500mg IVPB 500 MG/100 ML BAG IV SCH ×3 (00:43→16:08)
[2018-03-18] MEDS: LORAZEPAM 1 MG TABLET PO PRN ×2 (00:45→22:09)
[2018-03-18] MEDS: INSULIN -REGULAR HUMAN 50 UNIT/0.5 ML ML SQ SCH ×4 (07:30→21:00)
[2018-03-18] MEDS: CIPROFLOXACIN 400mg IV 400 MG/200 ML BAG IV SCH ×2 (08:47→20:27)
[2018-03-18] MEDS: PANTOPRAZOLE 40 MG INJ IVP SCH ×2 (08:48→20:28)
[2018-03-18] MEDS: LIDOCAINE VISCOUS 2% SOLN 15 ML UDC PO SCH ×3 (08:48→20:28)
[2018-03-18] MEDS: LISINOPRIL 5 MG TAB PO SCH (08:48)
[2018-03-18] MEDS: ENSURE ENLIVE 237 ML CAN PO SCH ×2 (08:49→20:27)
[2018-03-18] MEDS ORDERED: VANCOMYCIN 1 GM in NA CHLORIDE 0.9% 500 ML IVPB SCH (09:00)
[2018-03-18] MEDS: VANCOMYCIN/NS 1 gm 1 GM/250 ML BAG IV SCH ×2 (09:39→21:24)
[2018-03-18 10:30] LABS: Absolute Lymphocytes (CBC) 0.3 K/uL (0.7-4.9); Absolute Monocytes 0.4 K/uL (0.1-1.3); Absolute Neutrophil 3.6 K/uL (1.8-8.0); Basophils % 0.1 % (0-1.3); Eosinophils % 1.7 % (0-4.4); Hematocrit 25.6 % (36.0-45.0); Lymphocytes % 7.7 % (15.3-44.8); MCH 34.4 pg (27.0-35.0); MCV 101.1 fL (80-100); MPV 7.9 fL (7.6-11.3); Monocytes % 8.9 % (3.3-12.3); RBC Red Blood Cell Count 2.53 M/uL (3.86-4.86)
[2018-03-18 10:42] LABS: BUN Blood Urea Nitrogen 9 mg/dL (7-18); Bicarbonate 29 mmol/L (21-32); Glucose Level 121 mg/dL (74-106); Potassium 3.6 mmol/L (3.5-5.1); Sodium Level 141 mmol/L (136-145)
[2018-03-18 13:20] LABS: Blood Morphology Comment NOT SEEN (NOT SEEN); Platelet Estimate DECR; Urine White Blood Cell Casts OK
--- NOTE | 2018-03-18 13:31 | PN ---
Date of Progress Note: 03/18/2018 Subjective: The patient is seen and examined, chart reviewed, and case discussed with RN and Dr. Laws. The patient not having any further GI bleed. Feels better. Able to tolerate diet. Review of Systems: Negative except as above. Medications: List reviewed. Objective: Vital Signs: Temperature 97.9, heart rate 73, blood pressure 110/70 , respirations 16, and O2 96% on room air. General: Awake, alert, oriented x3, not in any acute distress. Somewhat ill- appearing, appears older than stated age. Cachectic. BMI 18. CV: S1, S2. No murmurs. Positive murmur, systolic ejection, 3/6. Respiratory: Clear to auscultation bilaterally. No wheezing. Gastrointestinal: Abdomen is soft, nontender, nondistended. Positive bowel sounds. Extremities: No clubbing, cyanosis, edema. Neurologic: Nonfocal. Laboratory Data: WBC 4.4, H and H 8.7 and 25.6, platelets 115, and neutrophils 81%. Sodium 141, potassium 3.6, chloride 106, CO2 29, BUN 9, and creatinine 0.6. Stool culture showing MRSA, sensitive to clinda and vanc. Assessment: A 62-year-old female with; 1. Acute gastrointestinal bleed, resolving, likely secondary to colitis related to chemotherapy. Clostridium difficile ruled out. 2. Acute colitis. Stool culture now showing methicillin-resistant Staphylococcus. We will add vancomycin. We will discontinue Cipro and Flagyl. 3. Acute blood loss anemia secondary to gastrointestinal bleed, status post 4 units PRBCs in total. H and H are stable. No further bleeding. Continue to monitor. 4. Hypotension. Blood pressure improving. 5. Diabetes mellitus type 2, noninsulin dependent with hyperglycemia. Continue sliding scale insulin. 6. Hypokalemia, improved. 7. Gastrointestinal and deep venous thrombosis prophylaxis with PPI and SCDs. No chemical anticoagulation due to gastrointestinal bleed. 8. Thrombocytopenia. Plan: 1. Likely discharge in the next 24-48 hours once improving and the patient tolerating diet. 2. Systolic ejection murmur. We will obtain echocardiogram to rule out any vegetation. /LINDA Voice ID: [id number] Report ID: [id number] DERIK
[2018-03-18] MEDS: MORPHINE *EXTENDED RELEASE* 15 MG TAB PO PRN (16:09)
[2018-03-19] MEDS: METRONIDAZOLE 500mg IVPB 500 MG/100 ML BAG IV SCH ×2 (00:43→10:33)
[2018-03-19 05:31] LABS: Absolute Lymphocytes (CBC) 0.2 K/uL (0.7-4.9); Absolute Monocytes 0.5 K/uL (0.1-1.3); Absolute Neutrophil 2.9 K/uL (1.8-8.0); Basophils % 0.2 % (0-1.3); Eosinophils % 1.6 % (0-4.4); Hematocrit 22.4 % (36.0-45.0); Lymphocytes % 5.4 % (15.3-44.8); MCH 33.8 pg (27.0-35.0); MCV 101.1 fL (80-100); MPV 7.9 fL (7.6-11.3); RBC Red Blood Cell Count 2.22 M/uL (3.86-4.86)
[2018-03-19 05:35] LABS: BUN Blood Urea Nitrogen 11 mg/dL (7-18); Bicarbonate 27 mmol/L (21-32); Glucose Level 124 mg/dL (74-106); Potassium 3.4 mmol/L (3.5-5.1); Sodium Level 143 mmol/L (136-145)
[2018-03-19] MEDS: INSULIN -REGULAR HUMAN 50 UNIT/0.5 ML ML SQ SCH ×4 (07:30→20:50)
[2018-03-19] MEDS: MORPHINE *EXTENDED RELEASE* 15 MG TAB PO PRN ×2 (07:39→19:47)
[2018-03-19 08:24] LABS: Blood Morphology Comment NOT SEEN (NOT SEEN); Platelet Estimate DECR; Urine White Blood Cell Casts OK
[2018-03-19] MEDS: ENSURE ENLIVE 237 ML CAN PO SCH ×2 (09:00→19:48)
[2018-03-19] MEDS: PANTOPRAZOLE 40 MG INJ IVP SCH (09:00)
[2018-03-19] MEDS: LISINOPRIL 5 MG TAB PO SCH (09:00)
[2018-03-19] MEDS: VANCOMYCIN/NS 1 gm 1 GM/250 ML BAG IV SCH (10:00)
[2018-03-19] MEDS: CIPROFLOXACIN 400mg IV 400 MG/200 ML BAG IV SCH (10:33)
[2018-03-19] MEDS: LIDOCAINE VISCOUS 2% SOLN 15 ML UDC PO SCH ×3 (10:34→19:47)
[2018-03-19] MEDS: ONDANSETRON 4 MG/2 ML VIAL IV PRN ×2 (10:34→19:47)
--- NOTE | 2018-03-19 11:41 | P.PN ---
Subjective Date of Service: 03/19/18 Chief Complaint: Anemia GI bleed Subjective: Improving (Patient is improving GI bleeding has stopped he does have a history of anorectal cancer started bleeding after chemotherapy) Review of Systems General: Weakness Physical Examination - Vital Signs Temperature: 98.9 F Blood Pressure: 82/63 Pulse: 72 Respirations: 17 Pulse Ox (%): 95 - Physical Exam General: Alert, Oriented x3 Neck: Supple Respiratory: Clear to auscultation bilaterally Cardiovascular: No edema, Normal S1 S2 Assessment & Plan - Problems (Diagnosis) (1) GIB (gastrointestinal bleeding) Onset Date: 03/15/18 Current Visit: Yes Status: Acute Plan: Patient is 62 years of age with a history of anorectal cancer status post chemotherapy admitted with GI bleeding patient was transfused still anemic continue to monitor transfuse another unit of packed red blood cells no clinical evidence of sepsis possible discharge tomorrow discuss with GI Qualifiers: GI bleed type/associated pathology: anorectal hemorrhage Qualified Code(s) : K62.5 - Hemorrhage of anus and rectum (2) Aortic stenosis Current Visit: Yes Status: Acute Plan: According to Cardiology patient has severe aortic stenosis and will need an outpatient cardiac catheterization report is still pending
[2018-03-19] MEDS ORDERED: NA CHLORIDE 0.9% 250 ML ONE (14:52)
[2018-03-19] MEDS: LORAZEPAM 1 MG TABLET PO PRN (22:03)
[2018-03-20 05:06] LABS: Hematocrit 24.3 % (36.0-45.0); MCH 33.7 pg (27.0-35.0); MCV 98.4 fL (80-100); MPV 8.2 fL (7.6-11.3); RBC Red Blood Cell Count 2.47 M/uL (3.86-4.86)
[2018-03-20] MEDS: INSULIN -REGULAR HUMAN 50 UNIT/0.5 ML ML SQ SCH ×4 (07:30→21:00)
[2018-03-20] MEDS: LISINOPRIL 5 MG TAB PO SCH (08:57)
[2018-03-20] MEDS: MORPHINE *EXTENDED RELEASE* 15 MG TAB PO PRN ×2 (08:57→21:00)
[2018-03-20] MEDS: ENSURE ENLIVE 237 ML CAN PO SCH ×2 (09:00→21:01)
[2018-03-20] MEDS: LIDOCAINE VISCOUS 2% SOLN 15 ML UDC PO SCH ×3 (09:01→21:00)
--- NOTE | 2018-03-20 10:07 | P.PN ---
Subjective Date of Service: 03/20/18 Chief Complaint: Anemia GI bleed Subjective: Worsening (Patient had another episode of GI bleed) Review of Systems Unremarkable Physical Examination - Vital Signs Temperature: 98.3 F Blood Pressure: 90/51 Pulse: 72 Respirations: 18 Pulse Ox (%): 96 - Physical Exam General: Alert, Oriented x3 Respiratory: Clear to auscultation bilaterally Cardiovascular: No edema, Normal pulses Gastrointestinal: Normal bowel sounds, Soft and benign Assessment & Plan - Problems (Diagnosis) (1) GIB (gastrointestinal bleeding) Onset Date: 03/15/18 Current Visit: Yes Status: Acute Plan: Patient is 62 years of age admitted with the anal cancer recurrent episode of GI bleeding discuss with GI Consul general surgery hemoglobin is stable continue to monitor recheck H&H Qualifiers: GI bleed type/associated pathology: anorectal hemorrhage Qualified Code(s) : K62.5 - Hemorrhage of anus and rectum (2) Aortic stenosis Current Visit: Yes Status: Acute Plan: According to Cardiology patient has severe aortic stenosis and will need an outpatient cardiac catheterization report is still pending
[2018-03-20 12:47] LABS: Hematocrit 27.9 % (36.0-45.0)
--- NOTE | 2018-03-20 16:26 | CON ---
Date of Consultation: 03/20/2018 Brief History Of Present Illness: The patient is a 62-year-old female with past medical hi story of anal cancer diagnosed 2 years ago. She has received Angy protocol mitomycin-C radiation tr eatment beginning 2 years ago and is continuously receiving mitomycin-based chemotherapy and received a dose several weeks ago. She is unsure and I am unsure of her exact therapeutic end point. She st ates that she has had her last endoscopy/colonoscopy biopsy approximately 8 months ago, which showed a few cancer cells remaining, but otherwise with good treatment effect. She presents with approximat johnny 2-3 week history of bright red blood per rectum and worsening anal pain. She had 1 episode of di zziness and lightheadedness. No syncopal episodes. No shortness of breath. She came to the [facility] about a week ago with the above-stated complaints of dizziness, fatigue, and bright red blood per r ectum on several occasions and from what she describes a current jelly type stool as well. Her hemog lobin was 7.1. She has been resuscitated with blood products during her admission to the hospital. GI, Dr. Martinez is following her currently as well. Past Medical History: Significant for anal cancer, not colon cancer, on chemotherapy with what sound s like Angy protocol type. She has a history of diabetes and hypertension. Past Surgical History: She had a hysterectomy and bilateral hernia repair in her 20s. Allergies: TO BACTRIM. Social History: She denies alcohol, but does smoke 2 packs per day for 30 plus years. Family History: Sister had leukemia. Home Medications: Include Wellbutrin, Voltaren, diphenoxylate/atropine, viscous lidocaine, lisinopri l, Ativan, Glucophage, MS Contin, morphine, nystatin, Zofran, and Valtrex. Review of Systems: A 10-point review of systems other than HPI denies. Physical Examination: Vital Signs: At the time of my examination, her BMI is 18.2. Her blood pressure is 90/51, pulse is 72, respiratory rate 18, temperature 98.3. General: She is awake, alert, oriented. Psychiatric: She is appropriate and conversive. HEENT: She is normocephalic. Her sclerae are anicteric. Her mucous membranes are moist. Oropharyn x clear. Neck: Supple. No JVD. Chest: Normal expansion and excursion. Cardiovascular: Regular rate and rhythm. Pulmonary: Clear to auscultation bilaterally. Abdomen: Soft, nontender, nondistended. No rebound. No guarding. Anal: Large external anal hemorrhoids and what appears to be small fissures in the area and there is radiation effect to the anus with some soilage of the area. Extremities: No clubbing, cyanosis, or edema. Laboratory Data: She had a laboratory exam, which reveals a white blood cell count of 3.8, hemoglobi n is 8.3 over hematocrit of 24.3, platelet count is 83. She had an abdomen and pelvis CT on 03/14, w [facility] officially read as the wall of the rectum is thickened, could indicate proctitis or recurrent ne oplasm. Apparent thickening of the wall of the ascending colon, probably secondary to incomplete dis tention with a mass considered less likely. Endoscopy may be helpful. Assessment And Plan: This is a 62-year-old female, who comes in with anal pain and anemia with activ e hemorrhoids and likely a fissure of the anus. 1.Continue medical management. 2.Sitz baths t.i.d. and after every bowel movement. 3.Colace p.r.n. as needed for constipation, Metamucil and fiber supplementation b.i.d. 4.We will see how she responds with sitz baths and adjunct will likely be either nifedipine or nifed ipine cream to the anus to help with fissure management, possibly nitroglycerin based ointment for an al sphincter relaxation to allow for healing of the mucosa. However, with radiation effect, I have e xplained that this could be a long protracted course and recovery for her. She is due to get endosco py with Dr. Martinez per his recommendations. I will follow along with you. Thank you for this interesting consult. SHERLY/LINDA Voice ID: [id number] Report ID: [id number]
[2018-03-20] MEDS ORDERED: FUROSEMIDE 20 MG TABLET PO ONE (18:30)
[2018-03-20] MEDS: PSYLLIUM 1 PKT PO SCH (21:00)
[2018-03-20 22:01] VITALS: O2SAT 96
[2018-03-20] MEDS: ONDANSETRON 4 MG/2 ML VIAL IV PRN (22:27)
[2018-03-20] MEDS: LORAZEPAM 1 MG TABLET PO PRN (22:27)
[2018-03-21] MEDS: LORAZEPAM 1 MG TABLET PO PRN (07:27)
[2018-03-21] MEDS: INSULIN -REGULAR HUMAN 50 UNIT/0.5 ML ML SQ SCH ×2 (07:30→11:30)
--- NOTE | 2018-03-21 07:59 | ECHO ---
HEIGHT: 5 ft 5 in WEIGHT: 110 lb 0 oz DATE OF STUDY: 03/18/[address]: Thais Viveros MD 2-DIMENSIONAL: YES M.MODE: YES DOPPLER: YES COLOR FLOW: YES TDS: NO PORTABLE: NO DEFINITY: NO BUBBLE STUDY: NO DIAGNOSIS: MURMUR CARDIAC HISTORY: CATHERIZATION: NO SURGERY: NO PROSTHETIC VALVE: NO PACEMAKER: NO MEASUREMENTS (cm) DIASTOLIC (NORMALS) SYSTOLIC (NORMALS) IVSd 0.9 (0.6-1.2) LA Diam 3.1 (1.9-4.0) LVEF 63% LVIDd 3.9 (3.5-5.7) LVIDs 2.6 (2.0-3.5) %FS 34% LVPWd 1.1 (0.6-1.2) Ao Diam 2.7 (2.0-3.7) 2 DIMENSIONAL ASSESSMENT: RIGHT ATRIUM: NORMAL LEFT ATRIUM: NORMAL RIGHT VENTRICLE: NORMAL LEFT VENTRICLE: NORMAL TRICUSPID VALVE: NORMAL MITRAL VALVE: NORMAL PULMONIC VALVE: NORMAL AORTIC VALVE: STENOTIC PERICARDIAL EFFUSION: NONE AORTIC ROOT: NORMAL LEFT VENTRICULAR WALL MOTION: NORMAL DOPPLER/COLOR FLOW: SEVERE AORTIC STENOSIS. AORTIC VALVE AREA 0.8 CENTIMETERS SQUARED. MAXIMUM GRADIENT 88mmHg. PEAK VELOCITY 4.7 M/SEC COMMENTS: SEVERE AORTIC STENOSIS. AORTIC VALVE AREA 0.8 CENTIMETERS SQUARED. MAXIMUM GRADIENT 88mmHg. NORMAL LEFT VENTRICULAR SIZE AND FUNCTION. NO WALL MOTION ABNORMALITY. TECHNOLOGIST: Amy SEGOVIA
[2018-03-21] MEDS: ENSURE ENLIVE 237 ML CAN PO SCH (09:00)
[2018-03-21] MEDS: PSYLLIUM 1 PKT PO SCH (09:00)
[2018-03-21] MEDS: LISINOPRIL 5 MG TAB PO SCH (09:23)
[2018-03-21] MEDS: MORPHINE *EXTENDED RELEASE* 15 MG TAB PO PRN (09:23)
[2018-03-21] MEDS: LIDOCAINE VISCOUS 2% SOLN 15 ML UDC PO SCH (09:25)
[2018-03-21 14:40] VITALS: BP 92/62
[2018-03-21 16:04] VITALS: TEMP 98.8
--- NOTE | 2018-03-22 03:36 | DS ---
Date of Discharge: 03/21/2018 Consultants: Dr. Ashley with General Surgery, Dr. Martinez with GI. Procedures: None. Admitting Diagnoses: 1. Acute gastrointestinal bleed. 2. Acute blood loss anemia. 3. Colitis. 4. Hypertension. 5. Diabetes mellitus type 2, non-insulin dependent with hyperglycemia. Discharge Diagnoses: 1. Gastrointestinal bleed secondary to anal cancer. 2. Acute colitis, methicillin-resistant Staphylococcus aureus in stool cultures likely contaminant. 3. Acute blood loss anemia, status post transfusions. 4. Hypotension secondary to above. 5. Anal cancer on chemotherapy and radiation therapy at [place]. 6. Diabetes mellitus type 2, non-insulin dependent with hyperglycemia. 7. Hypokalemia, corrected. 8. Thrombocytopenia. 9. Severe aortic stenosis. Hospital Course: The patient is a 62-year-old female with history of anal cancer, receiving treatment in [place], comes in with GI bleed. The patient was found to have hemoglobin of 7.1. The patient did eventually need transfusion of a total of 4 units of PRBCs. GI was consulted, seen by Dr. Martinez and Dr. Laws. No intervention was planned at that time. This is secondary to colitis and radiation and chemotherapy. The patient had improvement in her condition. She was placed on IV antibiotics for colitis. Her stool cultures did show MRSA, which was likely contaminant. The patient has severe fissures and hemorrhoids. Dr. Ashley was also involved in the care of the patient. No surgical intervention at this time. Sitz baths were implemented, which did help improve the patient's condition and she will follow up with him as an outpatient for possible further treatment including nitroglycerin or even Botox injection. The patient otherwise did well. Her C. diff came back negative. Her electrolytes were replaced. Her platelets were low, however did not require any transfusion. The patient was then cleared for discharge. The patient did have murmur, which was evaluated by echocardiogram, which showed severe aortic stenosis. I spoke with Dr. Wood, who stated that the patient will need outpatient followup with them. The patient was then cleared for discharge and was sent home in a stable condition. Activity: As tolerated. Medications: As per medication reconciliation list. Diet: Diabetic diet. Activity: As tolerated. Followup: Follow up with primary care physician in 2-3 days. Follow up with cancer doctor in [place] as scheduled. Follow up with GI, Dr. Martinez, in 1 week. Follow up with surgeon, Dr. Ashley, in 2 weeks. F/up w [employer] Dr. Wood in 2 weeks. Return to ER for worsening condition. Physical Examination: General: Awake, alert, oriented, in no acute distress. CV: S1, S2. No murmurs. Respiratory: Clear to auscultation bilaterally. No wheezing. Gastrointestinal: Abdomen is soft, nontender, nondistended. Positive bowel sounds. Extremities: No clubbing, cyanosis, edema. Neurologic: Nonfocal. Total time spent discharging the patient was 37 minutes. /LINDA Voice ID: [id number] Report ID: [id number] MTDD
== END 2018-03-21 15:00 | disposition home or self-care (01) | DRG 378 ==
LOC: ER 13:23 → ERHOLD 17:39 → 3RD-ICU 03-15 06:49 → 2ND 03-16 11:20
PROVIDERS: ADMIT Family Medicine; ATTEND Family Medicine
PROC: 30233N1 Transfusion of Nonautologous Red Blood Cells into Peripheral Vein, Percutaneous Approach (ICD-10-PCS; principal; 2018-03-14)
DX: K92.2 Gastrointestinal hemorrhage, unspecified (principal); D62 Acute posthemorrhagic anemia; C21.8 Malignant neoplasm of overlapping sites of rectum, anus and anal canal; K52.9 Noninfective gastroenteritis and colitis, unspecified; I95.9 Hypotension, unspecified; E11.65 Type 2 diabetes mellitus with hyperglycemia; E87.6 Hypokalemia; I35.0 Nonrheumatic aortic (valve) stenosis; Z88.1 Allergy status to other antibiotic agents; I10 Essential (primary) hypertension; F17.210 Nicotine dependence, cigarettes, uncomplicated; Z88.2 Allergy status to sulfonamides; Z79.84 Long term (current) use of oral hypoglycemic drugs; D69.6 Thrombocytopenia, unspecified; K64.9 Unspecified hemorrhoids; K60.2 Anal fissure, unspecified
CPT/HCPCS: 36415; 74177; 80048; 80076; 80202; 81003; 81015; 82962; 83690; 84132; 85014; 85018; 85025; 85027; 85610; 86850; 86900; 86901; 87045; 87046; 87077; 87177; 87186; 87209; 87493; 89055; 93306; 94760; 96360; 96361; 99285; C9113; J0744; J1720; J1940; J2405; J3370; J7030; P9016; P9040; Q9967

== ENCOUNTER 2018-10-04 10:44 | Emergency (ER) | payer OTHER ==
[2018-10-04 12:24] LABS: Absolute Lymphocytes (CBC) 0.4 K/uL (0.7-4.9); Absolute Monocytes 0.4 K/uL (0.1-1.3); Basophils % 0.4 % (0-1.3); Eosinophils % 0.4 % (0-4.4); Hematocrit 40.1 % (36.0-45.0); Lymphocytes % 7.2 % (15.3-44.8); MPV 7.2 fL (7.6-11.3); Monocytes % 6.4 % (3.3-12.3); RBC Red Blood Cell Count 3.83 M/uL (3.86-4.86)
[2018-10-04 12:44] LABS: Albumin 4.2 g/dL (3.4-5.0); Bilirubin Total 0.8 mg/dL (0.2-1.0); Potassium 3.7 mmol/L (3.5-5.1); Protein, Total 7.5 g/dL (6.4-8.2)
--- NOTE | 2018-10-04 13:37 | RAD REPORT ---
EXAM DESCRIPTION: RAD - Foot Right 3 View - 10/04/2018 1:30 pm CLINICAL HISTORY: Right foot pain FINDINGS: No fracture or dislocation is seen The bones are osteoporotic. No bony destructive lesions seen
--- NOTE | 2018-10-04 13:56 | ER ---
Nurse's Notes [facility] Name: Lisa Acosta Age: 63 yrs Sex: Female : 1955 Arrival Date: 10/04/2018 Time: 10:47 Bed 19 Private MD: None, None Diagnosis: Cellulitis of toe Presentation: 10/04 10:51 Presenting complaint: Patient states: Redness to top of right 4th toe for 2 months, got aj worse yesterday. Transition of care: patient was not received from another setting of care. Onset of symptoms was October 03, 2018. Risk Assessment: Do you want to hurt yourself or someone else? Patient reports no desire to harm self or others. Initial Sepsis Screen: Does the patient meet any 2 criteria? No. Patient's initial sepsis screen is negative. Does the patient have a suspected source of infection? No. Patient's initial sepsis screen is negative. Care prior to arrival: None. 10:51 Method Of Arrival: Ambulatory aj 10:51 Acuity: KIRAN 4 aj Triage Assessment: 10:53 General: Appears in no apparent distress. comfortable, Behavior is calm, cooperative, aj appropriate for age. Pain: Denies pain. Neuro: Level of Consciousness is awake, alert, obeys commands, Oriented to person, place, time, situation, Appropriate for age. Respiratory: Airway is patent Respiratory effort is even, unlabored, Respiratory pattern is regular, symmetrical. Derm: Skin is intact, is healthy with good turgor, Skin is pink, warm \T\ dry. normal, Wound noted right fourth toe Wound is red. Musculoskeletal: Circulation, motion, and sensation intact. Historical: - Allergies: 10:53 Bactrim DS; aj - Home Meds: 10:53 bupropion HCl 150 mg Oral TbTQ 1 tab 2 times per day [Active]; diphenoxylate-atropine aj 2.5-0.025 mg Oral tab 2 tabs 2 times per day for diarrhea [Active]; hydrocodone-acetaminophen 10-325 mg/15 mL(15 mL) Oral soln every 6 hours for Pain [Active]; Lidocaine Viscous 2 % MM soln 15 mL every 3 hours [Active]; lisinopril 5 mg Oral tab 1 tab once daily [Active]; lorazepam 1 mg Oral tab 1 tab 2 times per day for Anxiety [Active]; metformin 500 mg Oral tab 2 times per day [Active]; morphine 30 mg Oral tab every 4 hours [Active]; morphine 15 mg Oral TbTQ 1 tab every 12 hours [Active]; nystatin 100,000 unit/mL Oral susp 5 mL 3 TIMES A DAY [Active]; ondansetron HCl 4 mg Oral tab every 6 hours for Cancer Chemotherapy-Induced Nausea and Vomiting [Active]; Valtrex 1 gram Oral tab 1 tab 3 times per day for as needed [Active]; voltaren gel daily [Active]; - PMHx: 10:53 colon cancer (February 10, 2016); Diabetes - NIDDM; Hypertension; aj - PSHx: 10:53 Hysterectomy; Hernia repair; aj - Immunization history:: Adult Immunizations up to date, Last tetanus immunization: up to date. - Social history:: Smoking status: Patient uses tobacco products, smokes one pack cigarettes per day. - Ebola Screening: : Patient negative for fever greater than or equal to 101.5 degrees Fahrenheit, and additional compatible Ebola Virus Disease symptoms Patient denies exposure to infectious person Patient denies travel to an Ebola-affected area in the 21 days before illness onset No symptoms or risks identified at this time. Screenin:05 Abuse screen: Denies threats or abuse. Denies injuries from another. Nutritional sv screening: No deficits noted. Tuberculosis screening: No symptoms or risk factors identified. Fall Risk None identified. Assessment: 12:05 General: Appears in no apparent distress. comfortable, slender, Behavior is calm, sv cooperative, appropriate for age. Pain: Denies pain. Neuro: Level of Consciousness is awake, alert, obeys commands, Oriented to person, place, time, situation, Moves all extremities. Full function Gait is steady. Respiratory: Respiratory effort is even, unlabored, Respiratory pattern is regular, symmetrical. Derm: Wound noted right fourth toe Wound is scab noted with redness surrounding it. Other: Pt stated that she had bought some boots and they were rubbing against her toe and that's when she started with the wound. Musculoskeletal: Range of motion: intact in all extremities. 13:10 Reassessment: Patient appears in no apparent distress at this time. No changes from sv previously documented assessment. Patient and/or family updated on plan of care and expected duration. Pain level reassessed. Patient is alert, oriented x 3, equal unlabored respirations, skin warm/dry/pink. 14:24 Reassessment: Patient appears in no apparent distress at this time. No changes from sv previously documented assessment. Patient and/or family updated on plan of care and expected duration. Pain level reassessed. Patient is alert, oriented x 3, equal unlabored respirations, skin warm/dry/pink. Vital Signs: 10:53 BP 157 / 96; Pulse 90; Resp 20; Temp 98.1; Pulse Ox 96% on R/A; Weight 53.52 kg; Height aj 5 ft. 5 in. (165.10 cm); 14:24 BP 142 / 88; Pulse 88; Resp 18; Pulse Ox 97% ; sv 10:53 Body Mass Index 19.64 (53.52 kg, 165.10 cm) aj ED Course: 10:47 Patient arrived in ED. dl4 10:47 None, None is Private Physician. dl4 10:52 Triage completed. aj 10:53 Arm band placed on left wrist. Patient placed in waiting room, Patient notified of wait aj time. 11:33 Jorge Adhikari PA is PHCP. jm 11:33 Gideon Cobos MD is Attending Physician. jmm 12:05 Patient has correct armband on for positive identification. Placed in gown. Bed in low sv position. Call light in reach. Door closed. 12:05 Patient has correct armband on for positive identification. sv 12:08 Sayda Killian, RN is Primary Nurse. sv 12:10 Initial lab(s) drawn, by nj, sent to lab. Inserted saline lock: 20 gauge in right sv forearm, using aseptic technique. Blood collected. Flushed right forearm with 5 ml normal saline. 13:09 Awaiting for x-ray. sv 13:18 X-ray(s) taken. sv 13:30 X-ray completed. Portable x-ray completed in exam room. Patient tolerated procedure jb2 well. 13:31 Foot Right 3 View XRAY In Process Unspecified. EDMS 13:55 Ulises Hyde DPM is Referral Physician. jmm 14:24 No provider procedures requiring assistance completed. IV discontinued, intact, sv bleeding controlled, No redness/swelling at site. Pressure dressing applied. Administered Medications: No medications were administered Outcome: 13:56 Discharge ordered by . jmm 14:24 Discharged to home ambulatory. sv 14:24 Condition: stable 14:24 Discharge instructions given to patient, Instructed on discharge instructions, follow up and referral plans. medication usage, Demonstrated understanding of instructions, follow-up care, medications, Prescriptions given X 3. 14:25 Patient left the ED. sv Signatures: Dispatcher [employer] EDSayda Lara RN RN sv Myers, Amanda, RN RN aj Mickail, Joel, PA PA jmm Buechter, Jesse jbParminder Pimentel dl4
--- NOTE | 2018-10-04 13:57 | EDPHYS ---
Physician Documentation [facility] Name: Lisa Acosta Age: 63 yrs Sex: Female : 1955 Arrival Date: 10/04/2018 Time: 10:47 Bed 19 Private MD: None, None ED Physician Gideon Cobos HPI: 10/04 11:53 This 63 yrs old Female presents to ER via Ambulatory with complaints of Foot jmm Injury. 11:53 The patient presents with swelling. Onset: The symptoms/episode began/occurred today. jmm Modifying factors: The symptoms are alleviated by nothing. the symptoms are aggravated by nothing. Associated signs and symptoms: Pertinent positives: swelling, Pertinent negatives fever, numbness. This is a 63 year old female with a history of colon cancer, dm that presents to the ED with complaints of swelling to her right 4th toe beginning this morning. Patient states she previously had an episode of swelling which resolved after a course of abx this past June. Patient denies fever or chills. Patient's most recent chemo was in July. . Historical: - Allergies: 10:53 Bactrim DS; aj - Home Meds: 10:53 bupropion HCl 150 mg Oral TbTQ 1 tab 2 times per day [Active]; diphenoxylate-atropine aj 2.5-0.025 mg Oral tab 2 tabs 2 times per day for diarrhea [Active]; hydrocodone-acetaminophen 10-325 mg/15 mL(15 mL) Oral soln every 6 hours for Pain [Active]; Lidocaine Viscous 2 % MM soln 15 mL every 3 hours [Active]; lisinopril 5 mg Oral tab 1 tab once daily [Active]; lorazepam 1 mg Oral tab 1 tab 2 times per day for Anxiety [Active]; metformin 500 mg Oral tab 2 times per day [Active]; morphine 30 mg Oral tab every 4 hours [Active]; morphine 15 mg Oral TbTQ 1 tab every 12 hours [Active]; nystatin 100,000 unit/mL Oral susp 5 mL 3 TIMES A DAY [Active]; ondansetron HCl 4 mg Oral tab every 6 hours for Cancer Chemotherapy-Induced Nausea and Vomiting [Active]; Valtrex 1 gram Oral tab 1 tab 3 times per day for as needed [Active]; voltaren gel daily [Active]; - PMHx: 10:53 colon cancer (February 10, 2016); Diabetes - NIDDM; Hypertension; aj - PSHx: 10:53 Hysterectomy; Hernia repair; aj - Immunization history:: Adult Immunizations up to date, Last tetanus immunization: up to date. - Social history:: Smoking status: Patient uses tobacco products, smokes one pack cigarettes per day. - Ebola Screening: : Patient negative for fever greater than or equal to 101.5 degrees Fahrenheit, and additional compatible Ebola Virus Disease symptoms Patient denies exposure to infectious person Patient denies travel to an Ebola-affected area in the 21 days before illness onset No symptoms or risks identified at this time. ROS: 11:53 Constitutional: Negative for fever, chills, and weight loss, Cardiovascular: Negative jmm for chest pain, palpitations, and edema, Respiratory: Negative for shortness of breath, cough, wheezing, and pleuritic chest pain. 11:53 MS/extremity: Positive for pain, swelling. 11:53 All other systems are negative. Exam: 11:53 Constitutional: This is a well developed, well nourished patient who is awake, alert, jmm and in no acute distress. Head/Face: atraumatic. Eyes: EOMI, no conjunctival erythema appreciated ENT: Moist Mucus Membranes Neck: Trachea midline, Supple Chest/axilla: Normal chest wall appearance and motion. Cardiovascular: Regular rate and rhythm. No edema appreciated Respiratory: Normal respirations, no respiratory distress appreciated Abdomen/GI: Non distended, soft Back: Normal ROM 11:53 Skin: erythema and swelling noted to the right 4th toe. < 2 sec distal cap refill, NVI. 11:53 Neuro: Orientation: is normal, Mentation: is normal, Memory: is normal. 11:53 Psych: Behavior/mood is pleasant, cooperative. Vital Signs: 10:53 BP 157 / 96; Pulse 90; Resp 20; Temp 98.1; Pulse Ox 96% on R/A; Weight 53.52 kg; Height aj 5 ft. 5 in. (165.10 cm); 14:24 BP 142 / 88; Pulse 88; Resp 18; Pulse Ox 97% ; sv 10:53 Body Mass Index 19.64 (53.52 kg, 165.10 cm) aj MDM: 11:53 Patient medically screened. etta 13:54 Data reviewed: vital signs, nurses notes. Counseling: I had a detailed discussion with etta the patient and/or guardian regarding: the historical points, exam findings, and any diagnostic results supporting the discharge/admit diagnosis, lab results, radiology results, the need for outpatient follow up, to return to the emergency department if symptoms worsen or persist or if there are any questions or concerns that arise at home. ED course: Patient is alert and non toxic in appearance in the ED. Patient will be prescribed oral antibiotics and advised to closely follow up with podiatry for reevaluation. patient is otherwise given strict return precautions. patient understood and agrees with the plan of care. . 10/04 12:04 Order name: CBC with Diff; Complete Time: 12:27 [facility] 10/04 12:04 Order name: CMP; Complete Time: 12:46 [facility] 10/04 12:04 Order name: Foot Right 3 View XRAY; Complete Time: 13:49 [facility] 10/04 12:04 Order name: Saline Lock; Complete Time: 12:24 [facility] Administered Medications: No medications were administered Disposition: 17:19 Co-signature as Attending Physician, Gideon Cobos MD. rn Disposition: 10/04/18 13:56 Discharged to Home. Impression: Cellulitis of toe. - Condition is Stable. - Discharge Instructions: Cellulitis, Adult. - Prescriptions for Clindamycin HCl 300 mg Oral Capsule - take 1 capsule by ORAL route every 6 hours for 10 days; 40 capsule. Doxycycline Hyclate 100 mg Oral Tablet - take 1 tablet by ORAL route every 12 hours; 20 tablet. Albuterol Sulfate 90 mcg/actuation - inhale 1-2 puff by INHALATION route every 4-6 hours; 1 Inhaler. - Medication Reconciliation Form, Thank You Letter, Antibiotic Education, Prescription Opioid Use form. - Follow up: Ulises Hyde DPM; When: 2 - 3 days; Reason: Recheck today's complaints, Continuance of care, Re-evaluation by your physician. Signatures: Dispatcher [employer] Sayda Tanner RN RN sv Myers, Amanda, RN RN aj Mickail, Joel, PA PA jmm Nieto, Roman, MD MD garnett mechanic: (The following items were deleted from the chart) 14:25 13:56 10/04/2018 13:56 Discharged to Home. Impression: Cellulitis of toe. Condition is sv Stable. Forms are Medication Reconciliation Form, Thank You Letter, Antibiotic Education, Prescription Opioid Use. Follow up: Ulises Hyde; When: 2 - 3 days; Reason: Recheck today's complaints, Continuance of care, Re-evaluation by your physician. etta
[2018-10-04 14:38] VITALS: TEMP 98.1
[2018-10-04 14:41] VITALS: BP 142/88; O2SAT 97
== END 2018-10-04 14:25 | disposition home or self-care (01) ==
LOC: ER 10:44
DX: L03.031 Cellulitis of right toe (principal); E11.9 Type 2 diabetes mellitus without complications; I10 Essential (primary) hypertension; Z88.1 Allergy status to other antibiotic agents; Z79.84 Long term (current) use of oral hypoglycemic drugs; Z85.038 Personal history of other malignant neoplasm of large intestine
CPT/HCPCS: 36415; 80053; 85025; 99284

== ENCOUNTER 2018-11-18 13:45 | Emergency (ER) | payer OTHER ==
--- NOTE | 2018-11-18 15:17 | RAD REPORT ---
EXAM DESCRIPTION: RAD - Chest Pa And Lat (2 Views) - 11/18/2018 3:08 pm CLINICAL HISTORY: Cough and congestion COMPARISON: December 2015 TECHNIQUE: PA and lateral views of the chest were obtained. FINDINGS: The lungs are fibrotic as a baseline. No peripheral mass or consolidation. Interstitial pa ttern is not substantially different from comparison. A right-sided Port-A-Cath has been placed since prior imaging. Diaphragm is flattened with increased retrosternal space. No failure or volume overl oad findings. Heart size is normal and central vasculature is within normal limits. No pleural effus ion or pneumothorax seen. No acute bone findings seen. There is prominent right convex scoliosis wit h the apex in the lower thoracic spine. This matches prior imaging. No aortic abnormality. IMPRESSION: Chronic interstitial lung disease without an acute cardiopulmonary finding seen.
[2018-11-18] MEDS ORDERED: ALBUTEROL 2.5 MG/3 ML NEB SOL ONE (15:29)
[2018-11-18] MEDS ORDERED: IPRATROPIUM BROM 0.5MG/2.5ML ONE (15:29)
[2018-11-18 15:42] LABS: Absolute Lymphocytes (CBC) 0.6 K/uL (0.7-4.9); Absolute Monocytes 0.4 K/uL (0.1-1.3); Absolute Neutrophil 5.2 K/uL (1.8-8.0); Basophils % 0.3 % (0-1.3); Eosinophils % 1.2 % (0-4.4); Hematocrit 38.4 % (36.0-45.0); Lymphocytes % 9.7 % (15.3-44.8); MPV 7.3 fL (7.6-11.3); Monocytes % 6.8 % (3.3-12.3); RBC Red Blood Cell Count 3.64 M/uL (3.86-4.86)
[2018-11-18 15:53] LABS: ALT/SGPT 18 U/L (12-78); AST/SGOT 11 U/L (15-37); Albumin 3.4 g/dL (3.4-5.0); Alkaline Phosphatase 96 U/L (45-117); BUN Blood Urea Nitrogen 8 mg/dL (7-18); Bicarbonate 30 mmol/L (21-32); Bilirubin Total 0.4 mg/dL (0.2-1.0); Glucose Level 166 mg/dL (74-106); Potassium 3.4 mmol/L (3.5-5.1); Protein, Total 6.3 g/dL (6.4-8.2); Sodium Level 139 mmol/L (136-145)
--- NOTE | 2018-11-18 16:11 | EDPHYS ---
Physician Documentation [facility] Name: Lisa Acosta Age: 63 yrs Sex: Female : 1955 Arrival Date: 11/18/2018 Time: 13:46 Bed 23 Private MD: ED Physician Jeb Dietrich HPI: 11/18 15:30 This 63 yrs old Female presents to ER via Ambulatory with complaints of pm1 Congestion, Cough. 15:30 The patient or guardian reports cough, with productive sputum, that is yellow. Onset: pm1 The symptoms/episode began/occurred yesterday. Severity of symptoms: in the emergency department the symptoms are actually worse. Modifying factors: The symptoms are alleviated by nothing, the symptoms are aggravated by nothing. Associated signs and symptoms: Pertinent positives: post nasal drainage, Pertinent negatives: chest pain, diarrhea, ear ache, fever, nausea, rhinorrhea, vomiting. The patient has not experienced similar symptoms in the past. The patient has not recently seen a physician. Patient with post nasal drainage and sinus tenderness and pressure. Patient coughing up post nasal drainage that is yellow. No fevers. Patient also has a wound to right 4th toe that is improved and would like a prior I\T\D to right labia evaluated. No swelling present to labia at the moment, she just feels a small bump. 15:30 Patient currently taking clindamycin from PCP for localized skin infections. pm1 Historical: - Allergies: 14:07 Bactrim DS; ch - PMHx: 14:07 colon cancer (February 10, 2016); Diabetes - NIDDM; Hypertension; 36 radiations and 15 ch months of chemo after colon cancer.; - PSHx: 14:07 Hysterectomy; Hernia repair; ch - Immunization history:: Adult Immunizations up to date. - Social history:: Smoking status: Patient uses tobacco products, denies chronic smoking, but will smoke occasionally. - Ebola Screening: : Patient negative for fever greater than or equal to 101.5 degrees Fahrenheit, and additional compatible Ebola Virus Disease symptoms Patient denies exposure to infectious person Patient denies travel to an Ebola-affected area in the 21 days before illness onset No symptoms or risks identified at this time. ROS: 15:30 Constitutional: Negative for fever, chills, and weight loss, Eyes: Negative for injury, pm1 pain, redness, and discharge, Neck: Negative for injury, pain, and swelling, Cardiovascular: Negative for chest pain, palpitations, and edema. 15:30 Abdomen/GI: Negative for abdominal pain, nausea, vomiting, diarrhea, and constipation, Back: Negative for injury and pain, : Negative for injury, bleeding, discharge, and swelling, MS/Extremity: Negative for injury and deformity, Skin: Negative for injury, rash, and discoloration, Neuro: Negative for headache, weakness, numbness, tingling, and seizure. 15:30 ENT: Positive for sinus congestion, sinus pain, Negative for sore throat, dental pain, difficulty swallowing, difficulty handling secretions, hoarseness. 15:30 Respiratory: Positive for cough, Negative for wheezing. Exam: 15:30 Constitutional: This is a well developed, well nourished patient who is awake, alert, pm1 and in no acute distress. Head/Face: Normocephalic, atraumatic. Eyes: Pupils equal round and reactive to light, extra-ocular motions intact. Lids and lashes normal. Conjunctiva and sclera are non-icteric and not injected. Cornea within normal limits. Periorbital areas with no swelling, redness, or edema. ENT: Nares patent. No nasal discharge, no septal abnormalities noted. Tympanic membranes are normal and external auditory canals are clear. Oropharynx with no redness, swelling, or masses, exudates, or evidence of obstruction, uvula midline. Mucous membranes moist. Neck: Trachea midline, no thyromegaly or masses palpated, and no cervical lymphadenopathy. Supple, full range of motion without nuchal rigidity, or vertebral point tenderness. No Meningismus. Chest/axilla: Normal chest wall appearance and motion. Nontender with no deformity. No lesions are appreciated. Cardiovascular: Regular rate and rhythm with a normal S1 and S2. No gallops, murmurs, or rubs. Normal PMI, no JVD. No pulse deficits. Respiratory: Lungs have equal breath sounds bilaterally, clear to auscultation and percussion. No rales, rhonchi or wheezes noted. No increased work of breathing, no retractions or nasal flaring. Abdomen/GI: Soft, non-tender, with normal bowel sounds. No distension or tympany. No guarding or rebound. No evidence of tenderness throughout. Back: No spinal tenderness. No costovertebral tenderness. Full range of motion. 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 15:30 Skin: Appearance: normal except for affected area, Wound recheck: no absces or cellulitis present to right foot. Healing wound to dorsal aspect of right fourth toe. Vital Signs: 14:07 BP 117 / 91; Pulse 91; Resp 16; Temp 98.6(O); Pulse Ox 97% on R/A; Weight 53.52 kg; ch Height 5 ft. 5 in. (165.10 cm); Pain 6/10; 15:44 BP 121 / 80; Pulse 89; Resp 18; Pulse Ox 100% on R/A; ph 15:50 BP 108 / 80; Pulse 91; Resp 16; Pulse Ox 99% ; lt1 14:07 Body Mass Index 19.64 (53.52 kg, 165.10 cm) ch MDM: 14:20 Patient medically screened. pm1 16:10 Data reviewed: vital signs. Data interpreted: Pulse oximetry: on room air is 99 %. pm1 Interpretation: normal. Counseling: I had a detailed discussion with the patient and/or guardian regarding: the historical points, exam findings, and any diagnostic results supporting the discharge/admit diagnosis, lab results, radiology results, the need for outpatient follow up, to return to the emergency department if symptoms worsen or persist or if there are any questions or concerns that arise at home. 11/18 14:51 Order name: Flu; Complete Time: 16:06 pm1 11/18 14:52 Order name: CBC with Diff pm1 11/18 14:51 Order name: Chest Pa And Lat (2 Views) XRAY; Complete Time: 15:21 pm1 11/18 14:52 Order name: CMP; Complete Time: 16:06 pm1 11/18 14:52 Order name: IV Saline Lock; Complete Time: 15:39 pm1 Administered Medications: 15:25 Drug: Albuterol - atroVENT (3:1) (2.5 mg - 0.5 mg) 3 ml Route: Nebulizer; ph 15:44 Follow up: Response: No adverse reaction ph Disposition: 11/18/18 16:11 Discharged to Home. Impression: Acute sinusitis, Local infection of the skin and subcutaneous tissue, unspecified - right foot. - Condition is Stable. - Discharge Instructions: Sinusitis, Adult. - Prescriptions for Augmentin 875- 125 mg Oral Tablet - take 1 tablet by ORAL route every 12 hours for 10 days; 20 tablet. Albuterol Sulfate 90 mcg/actuation - inhale 1-2 puff by INHALATION route every 4-6 hours; 1 Inhaler. - Medication Reconciliation Form, Thank You Letter, Antibiotic Education, Prescription Opioid Use form. - Follow up: Emergency Department; When: As needed; Reason: Worsening of condition. Follow up: Private Physician; When: 2 - 3 days; Reason: Recheck today's complaints, Continuance of care, Re-evaluation by your physician. - Problem is new. - Symptoms have improved. Addendum: 11/21/2018 07:15 Co-signature as Attending Physician, Jeb Dietrich MD I agree with the assessment and c daugherty plan of care. Signatures: Dispatcher [employer] EDMachelle Cruz RN RN ch Anderson, Corey, MD MD cha Hall, Patricia, RN RN ph Marinas, Patrick, SHIKHA STRIPPING CUTTER AND WINDER pm1 Corrections: (The following items were deleted from the chart) 11/18 16:12 16:11 11/18/2018 16:11 Discharged to Home. Impression: Acute sinusitis. Condition is pm1 Stable. Forms are Medication Reconciliation Form, Thank You Letter, Antibiotic Education, Prescription Opioid Use. Follow up: Emergency Department; When: As needed; Reason: Worsening of condition. Follow up: Private Physician; When: 2 - 3 days; Reason: Recheck today's complaints, Continuance of care, Re-evaluation by your physician. Problem is new. Symptoms have improved. pm1 16:29 16:12 11/18/2018 16:11 Discharged to Home. Impression: Acute sinusitis; Local infection ph of the skin and subcutaneous tissue, unspecified - right foot. Condition is Stable. Discharge Instructions: Sinusitis, Adult. Prescriptions for Augmentin 875-125 mg Oral Tablet - take 1 tablet by ORAL route every 12 hours for 10 days; 20 tablet. and Forms are Medication Reconciliation Form, Thank You Letter, Antibiotic Education, Prescription Opioid Use. Follow up: Emergency Department; When: As needed; Reason: Worsening of condition. Follow up: Private Physician; When: 2 - 3 days; Reason: Recheck today's complaints, Continuance of care, Re-evaluation by your physician. Problem is new. Symptoms have improved. pm1
--- NOTE | 2018-11-18 16:11 | ER ---
Nurse's Notes [facility] Name: Lisa Acosta Age: 63 yrs Sex: Female : 1955 Arrival Date: 11/18/2018 Time: 13:46 Bed 23 Private MD: Diagnosis: Acute sinusitis;Local infection of the skin and subcutaneous tissue, unspecified-right foot Presentation: 11/18 14:04 Presenting complaint: Patient states: cough, congestion, productive cough since yesterday, worse today at 0430 I felt like I couldn't breathe. but I also get staph infections. and my toe has a blister I want it checked. I am a diabetic. as well I had colon cancer and I am getting an abscess down on my genitals. Transition of care: patient was not received from another setting of care. Onset of symptoms was November 18, 2018 at 04:30. Risk Assessment: Do you want to hurt yourself or someone else? Patient reports no desire to harm self or others. Initial Sepsis Screen: Does the patient meet any 2 criteria? No. Patient's initial sepsis screen is negative. Does the patient have a suspected source of infection? No. Patient's initial sepsis screen is negative. Care prior to arrival: None. 14:04 Method Of Arrival: Ambulatory 14:04 Acuity: KIRAN 3 ch Triage Assessment: 14:07 General: Appears in no apparent distress. uncomfortable, Behavior is cooperative, ch appropriate for age, anxious, restless. Historical: - Allergies: 14:07 Bactrim DS; ch - PMHx: 14:07 colon cancer (February 10, 2016); Diabetes - NIDDM; Hypertension; 36 radiations and 15 ch months of chemo after colon cancer.; - PSHx: 14:07 Hysterectomy; Hernia repair; ch - Immunization history:: Adult Immunizations up to date. - Social history:: Smoking status: Patient uses tobacco products, denies chronic smoking, but will smoke occasionally. - Ebola Screening: : Patient negative for fever greater than or equal to 101.5 degrees Fahrenheit, and additional compatible Ebola Virus Disease symptoms Patient denies exposure to infectious person Patient denies travel to an Ebola-affected area in the 21 days before illness onset No symptoms or risks identified at this time. Screenin:35 Abuse screen: Denies threats or abuse. Denies injuries from another. Nutritional ph screening: No deficits noted. Tuberculosis screening: No symptoms or risk factors identified. Fall Risk None identified. Assessment: 14:36 General: Appears in no apparent distress. comfortable, slender, well groomed, Behavior ph is calm, cooperative, appropriate for age. Pain: Denies pain. Neuro: Level of Consciousness is awake, alert, obeys commands, Oriented to person, place, time, situation. 14:36 Cardiovascular: Denies chest pain. Cardiovascular: Capillary refill < 3 seconds ph Patient's skin is warm and dry. Respiratory: Reports shortness of breath at rest cough that is productive, Airway is patent Respiratory effort is even, unlabored, Respiratory pattern is regular, symmetrical, Breath sounds are clear bilaterally. GI: No signs and/or symptoms were reported involving the gastrointestinal system. EENT: Reports nasal congestion nasal discharge pain in forehead, right eye, right cheek, nose, left cheek and left eye. Derm: Skin is healthy with good turgor, Skin is pink, warm \T\ dry. Abscess located on right labia majora and right labia minora is nickel sized, has no drainage, is raised. Musculoskeletal: Circulation, motion, and sensation intact. Range of motion: intact in all extremities. 15:00 Reassessment: Patient appears in no apparent distress at this time. Patient and/or ph family updated on plan of care and expected duration. Pain level reassessed. Patient is alert, oriented x 3, equal unlabored respirations, skin warm/dry/pink. Pt taken for CXR via wheelchair. 15:54 Reassessment: Patient appears in no apparent distress at this time. Patient and/or ph family updated on plan of care and expected duration. Pain level reassessed. Patient is alert, oriented x 3, equal unlabored respirations, skin warm/dry/pink. Pt resting quietly, awaiting lab and CXR results, reports that SOB has improved after neb tx. Vital Signs: 14:07 BP 117 / 91; Pulse 91; Resp 16; Temp 98.6(O); Pulse Ox 97% on R/A; Weight 53.52 kg; ch Height 5 ft. 5 in. (165.10 cm); Pain 6/10; 15:44 BP 121 / 80; Pulse 89; Resp 18; Pulse Ox 100% on R/A; ph 15:50 BP 108 / 80; Pulse 91; Resp 16; Pulse Ox 99% ; lt1 14:07 Body Mass Index 19.64 (53.52 kg, 165.10 cm) ED Course: 13:46 Patient arrived in ED. as 14:06 Triage completed. 14:07 Arm band placed on left wrist. Patient placed in an exam room, on a stretcher. 14:19 Raymond Martin NP is PHCP. pm1 14:19 Jeb Dietrich MD is Attending Physician. pm1 14:34 Rina Browne RN is Primary Nurse. ph 14:35 Patient has correct armband on for positive identification. Placed in gown. Bed in low ph position. Call light in reach. Side rails up X 1. Pulse ox on. NIBP on. Warm blanket given. 14:58 Flu and/or RSV swab sent to lab. lt1 14:59 Flu Sent. lt1 15:05 X-ray completed. Patient tolerated procedure well. Patient moved back from radiology. [facility] 15:06 Chest Pa And Lat (2 Views) XRAY In Process Unspecified. EDMS 15:30 Initial lab(s) drawn, by ca, sent to lab. Inserted saline lock: 22 gauge in right lt1 antecubital area, using aseptic technique. 15:44 No provider procedures requiring assistance completed. ph 16:29 IV discontinued, intact, bleeding controlled, No redness/swelling at site. Pressure ph dressing applied. Administered Medications: 15:25 Drug: Albuterol - atroVENT (3:1) (2.5 mg - 0.5 mg) 3 ml Route: Nebulizer; ph 15:44 Follow up: Response: No adverse reaction ph Outcome: 16:11 Discharge ordered by . pm1 16:29 Patient left the ED. ph 16:29 Discharged to home ambulatory. ph 16:29 Condition: good 16:29 Discharge instructions given to patient, Instructed on discharge instructions, follow up and referral plans. medication usage, Demonstrated understanding of instructions, follow-up care, medications, Prescriptions given X 1. Signatures: Dispatcher [employer] EDMS Machelle Moore RN RN Juju Luna 1 Aarti Palumbo as Rina Browne RN RN Raymond Martin NP DOOR PERSON pm1 Elyssa Carbajal 1
[2018-11-18 16:37] VITALS: TEMP 98.6
[2018-11-18 16:40] VITALS: BP 108/80; O2SAT 99
[2018-11-18 18:51] LABS: Blood Morphology Comment NOTED (NOT SEEN); Macrocytosis 1+; Platelet Estimate ADEQ; Urine White Blood Cell Casts OK
== END 2018-11-18 16:29 | disposition home or self-care (01) ==
LOC: ER 13:45
DX: J01.90 Acute sinusitis, unspecified (principal); L08.9 Local infection of the skin and subcutaneous tissue, unspecified; Z72.0 Tobacco use
CPT/HCPCS: 36415; 71046; 80053; 85025; 87804; 94640; 99284

== ENCOUNTER 2018-12-15 13:26 | Emergency (ER) | payer OTHER ==
--- NOTE | 2018-12-15 14:21 | EDPHYS ---
Physician Documentation [facility] Name: Lisa Acosta Age: 63 yrs Sex: Female : 1955 Arrival Date: 12/15/2018 Time: 13:29 Bed 19 Private MD: ED Physician Ranjeet Malcolm HPI: 12/15 14:10 This 63 yrs old Female presents to ER via Ambulatory with complaints of pm1 Abscess. 14:10 the patient presents with a swollen area of the groin. pm1 14:10 Description: swollen. Onset: The symptoms/episode began/occurred 3 day(s) ago. Possible pm1 cause(s): unknown. Associated signs and symptoms: Pertinent negatives: discharge, drainage, fever. Modifying factors: the symptoms are alleviated by nothing, the symptoms are aggravated by touching. Severity of symptoms: in the emergency department the symptoms are actually worse. The patient has experienced a previous episode, approximately 1 months ago, and the symptoms today are exactly the same, improved with antibiotics given last month. The patient has not recently seen a physician. Historical: - Allergies: 13:30 Bactrim DS; sg - PMHx: 13:30 36 radiations and 15 months of chemo after colon cancer.; colon cancer (February 10, 2016); sg Diabetes - NIDDM; Hypertension; - PSHx: 13:30 Hysterectomy; Hernia repair; sg - Immunization history:: Adult Immunizations unknown. - Social history:: Smoking status: unknown. - Ebola Screening: : No symptoms or risks identified at this time. ROS: 14:10 Constitutional: Negative for fever, chills, and weight loss, Eyes: Negative for injury, pm1 pain, redness, and discharge, ENT: Negative for injury, pain, and discharge, Neck: Negative for injury, pain, and swelling, Cardiovascular: Negative for chest pain, palpitations, and edema, Respiratory: Negative for shortness of breath, cough, wheezing, and pleuritic chest pain, Abdomen/GI: Negative for abdominal pain, nausea, vomiting, diarrhea, and constipation, Back: Negative for injury and pain, MS/Extremity: Negative for injury and deformity. 14:10 : Negative for injury, bleeding, discharge, and swelling. 14:10 Neuro: Negative for headache, weakness, numbness, tingling, and seizure. 14:10 Skin: Positive for swelling, of the groin, Negative for cellulitis, rash. Exam: 14:10 Constitutional: This is a well developed, well nourished patient who is awake, alert, pm1 and in no acute distress. Head/Face: Normocephalic, atraumatic. Neck: Trachea midline, no thyromegaly or masses palpated, and no cervical lymphadenopathy. Supple, full range of motion without nuchal rigidity, or vertebral point tenderness. No Meningismus. Chest/axilla: Normal chest wall appearance and motion. Nontender with no deformity. No lesions are appreciated. Cardiovascular: Regular rate and rhythm with a normal S1 and S2. No gallops, murmurs, or rubs. Normal PMI, no JVD. No pulse deficits. Respiratory: Lungs have equal breath sounds bilaterally, clear to auscultation and percussion. No rales, rhonchi or wheezes noted. No increased work of breathing, no retractions or nasal flaring. Abdomen/GI: Soft, non-tender, with normal bowel sounds. No distension or tympany. No guarding or rebound. No evidence of tenderness throughout. Back: No spinal tenderness. No costovertebral tenderness. Full range of motion. 14:10 MS/ Extremity: Pulses equal, no cyanosis. Neurovascular intact. Full, normal range of motion. 14:10 : Pelvic Exam: External exam: localized phegmon present to left and right labia majora, no flutuance, pointing, surrounding cellulitis, no appreciated Bartholin's cyst, not excoriated, no evidence of foreign body, no lesions, no ulcerations, no warts seen, discharge, is not appreciated, Stephen FREIRE. 14:10 Neuro: Orientation: is normal, Motor: is normal, moves all fours. Vital Signs: 13:29 BP 106 / 58; Pulse 87; Resp 16; Temp 98.3; Pulse Ox 100% ; Weight 61.23 kg; sg MDM: 13:42 Patient medically screened. pm1 14:18 Data reviewed: vital signs. Data interpreted: Pulse oximetry: on room air is 100 %. pm1 Interpretation: normal. Counseling: I had a detailed discussion with the patient and/or guardian regarding: the historical points, exam findings, and any diagnostic results supporting the discharge/admit diagnosis, the need for outpatient follow up, to return to the emergency department if symptoms worsen or persist or if there are any questions or concerns that arise at home. Administered Medications: No medications were administered Disposition: 12/15/18 14:20 Discharged to Home. Impression: Local infection of the skin and subcutaneous tissue, unspecified - groin. - Condition is Stable. - Discharge Instructions: Cellulitis, Adult. - Prescriptions for Keflex 500 mg Oral Capsule - take 1 capsule by ORAL route every 6 hours for 10 days; 40 capsule. Doxycycline Hyclate 100 mg Oral Tablet - take 1 tablet by ORAL route every 12 hours; 20 tablet. - Medication Reconciliation Form, Thank You Letter, Antibiotic Education, Prescription Opioid Use form. - Follow up: Emergency Department; When: As needed; Reason: Worsening of condition. Follow up: Private Physician; When: 2 - 3 days; Reason: Recheck today's complaints, Continuance of care, Re-evaluation by your physician. - Problem is new. - Symptoms have improved. Addendum: 12/18/2018 00:11 Co-signature as Attending Physician, Ranjeet Malcolm MD. g s Signatures: Manfred Breen, RN RN sg Raymond Martin, SHIKHA LEATHER CRAFTER pm1 Stephen Mclaughlin RN RN jl7 Ranjeet Malcolm MD MD Corrections: (The following items were deleted from the chart) 12/15 14:37 14:20 12/15/2018 14:20 Discharged to Home. Impression: Local infection of the skin and jl7 subcutaneous tissue, unspecified - groin. Condition is Stable. Forms are Medication Reconciliation Form, Thank You Letter, Antibiotic Education, Prescription Opioid Use. Follow up: Emergency Department; When: As needed; Reason: Worsening of condition. Follow up: Private Physician; When: 2 - 3 days; Reason: Recheck today's complaints, Continuance of care, Re-evaluation by your physician. Problem is new. Symptoms have improved. pm1 17:02 17:02 Description: swollen, pm1 pm1
--- NOTE | 2018-12-15 14:21 | ER ---
Nurse's Notes [facility] Name: Lisa Acosta Age: 63 yrs Sex: Female : 1955 Arrival Date: 12/15/2018 Time: 13:29 Bed 19 Private MD: Diagnosis: Local infection of the skin and subcutaneous tissue, unspecified-groin Presentation: 12/15 13:29 Presenting complaint: Patient states: I have an abscess that I need to get looked at, i sg think its a pretty bad infection. Transition of care: patient was not received from another setting of care. Onset of symptoms was December 15, 2018. Risk Assessment: Do you want to hurt yourself or someone else? Patient reports no desire to harm self or others. Initial Sepsis Screen: Does the patient meet any 2 criteria? No. Patient's initial sepsis screen is negative. Does the patient have a suspected source of infection? Yes: Skin breakdown/wound. Care prior to arrival: None. 13:29 Method Of Arrival: Ambulatory sg 13:29 Acuity: KIRAN 4 sg Historical: - Allergies: 13:30 Bactrim DS; sg - PMHx: 13:30 36 radiations and 15 months of chemo after colon cancer.; colon cancer (February 10, 2016); sg Diabetes - NIDDM; Hypertension; - PSHx: 13:30 Hysterectomy; Hernia repair; sg - Immunization history:: Adult Immunizations unknown. - Social history:: Smoking status: unknown. - Ebola Screening: : No symptoms or risks identified at this time. Screenin:52 Abuse screen: Denies threats or abuse. Denies injuries from another. Nutritional jl7 screening: No deficits noted. Tuberculosis screening: No symptoms or risk factors identified. Fall Risk None identified. Assessment: 13:52 General: Appears in no apparent distress. uncomfortable, Behavior is calm, cooperative, jl7 appropriate for age. Pain: Complains of pain in left labia majora Quality of pain is described as tender. Neuro: Level of Consciousness is awake, alert, obeys commands, Oriented to person, place, time, situation. Cardiovascular: Patient's skin is warm and dry. Respiratory: Airway is patent Respiratory effort is even, unlabored, Respiratory pattern is regular, symmetrical. : Swelling noted on labia. Derm: Abscess located on left labia majora is dime sized, has no drainage, is red. Vital Signs: 13:29 BP 106 / 58; Pulse 87; Resp 16; Temp 98.3; Pulse Ox 100% ; Weight 61.23 kg; sg ED Course: 13:29 Patient arrived in ED. mr 13:29 Arm band placed on. sg 13:30 Triage completed. sg 13:31 Stephen Mclaughlin RN is Primary Nurse. jl7 13:33 Raymond Martin NP is PHCP. pm1 13:33 Ranjeet Malcolm MD is Attending Physician. pm1 13:45 Patient has correct armband on for positive identification. Placed in gown. Bed in low jl7 position. Call light in reach. Side rails up X 1. 14:36 No provider procedures requiring assistance completed. Patient did not have IV access jl7 during this emergency room visit. Administered Medications: No medications were administered Outcome: 14:20 Discharge ordered by . pm1 14:36 Discharged to home ambulatory, with friend. jl7 14:36 Condition: stable 14:36 Discharge instructions given to patient, family, Instructed on discharge instructions, follow up and referral plans. medication usage, Demonstrated understanding of instructions, follow-up care, medications, Prescriptions given X 2. 14:37 Patient left the ED. jl7 Signatures: Manfred Breen, RN RN Marcia Lin mr Raymond Martin, SHIKHA LICENSED PHYSICAL THERAPY ASSISTANT pm1 Stephen Mclaughlin, TANI jj7
[2018-12-15 14:54] VITALS: BP 106/58; TEMP 98.3; O2SAT 100
== END 2018-12-15 14:37 | disposition home or self-care (01) ==
LOC: ER 13:26
DX: L08.9 Local infection of the skin and subcutaneous tissue, unspecified (principal); I10 Essential (primary) hypertension; Z88.1 Allergy status to other antibiotic agents; Z85.038 Personal history of other malignant neoplasm of large intestine
CPT/HCPCS: 99282

== ENCOUNTER 2019-01-13 13:37 | Emergency (ER) | payer OTHER ==
--- NOTE | 2019-01-13 15:32 | ER ---
Nurse's Notes [facility] Name: Lisa Acosta Age: 63 yrs Sex: Female : 1955 Arrival Date: 01/13/2019 Time: 13:50 Bed 10 Private MD: Diagnosis: Conjunctivitis-Right eye Presentation: 01/13 13:51 Presenting complaint: Patient states: Redness to R eye that began yesterday. Denies ss pain/ itching. Reports dryness. Transition of care: patient was not received from another setting of care. Onset of symptoms was January 12, 2019. Risk Assessment: Do you want to hurt yourself or someone else? Patient reports no desire to harm self or others. Initial Sepsis Screen: Does the patient meet any 2 criteria? No. Patient's initial sepsis screen is negative. Does the patient have a suspected source of infection? No. Patient's initial sepsis screen is negative. Care prior to arrival: None. 13:51 Method Of Arrival: Ambulatory ss 13:51 Acuity: KIRAN 5 ss Historical: - Allergies: 13:52 Bactrim DS; ss - PMHx: 13:52 colon cancer (February 10, 2016); 36 radiations and 15 months of chemo after colon cancer.; ss Diabetes - NIDDM; Hypertension; - PSHx: 13:52 Hysterectomy; Hernia repair; ss - Immunization history:: Adult Immunizations unknown. - Social history:: Smoking status: Patient uses tobacco products, smokes one-half pack cigarettes per day. - Ebola Screening: : Patient denies exposure to infectious person Patient denies travel to an Ebola-affected area in the 21 days before illness onset. Screenin:59 Abuse screen: Denies threats or abuse. Denies injuries from another. Nutritional iw screening: No deficits noted. Tuberculosis screening: No symptoms or risk factors identified. Fall Risk None identified. Assessment: 14:57 General: Appears in no apparent distress. comfortable, Behavior is calm, cooperative. iw Pain: Complains of pain in right eye. Neuro: Level of Consciousness is awake, alert, obeys commands, Oriented to person, place, time, situation. Cardiovascular: Patient's skin is warm and dry. Respiratory: Respiratory effort is even, unlabored, Respiratory pattern is regular, symmetrical. GI: Abdomen is flat. EENT: Eyes redness to right sclera. Denies blurred vision. Derm: Skin is intact, is healthy with good turgor. Musculoskeletal: Range of motion: intact in all extremities. Vital Signs: 13:52 BP 140 / 96; Pulse 93; Resp 18; Temp 98.6(O); Pulse Ox 97% on R/A; Weight 75.75 kg; ss Height 5 ft. 5 in. (165.10 cm); Pain 0/10; 15:40 BP 140 / 88; Pulse 92; Resp 17; Temp 98.2; Pulse Ox 98% on R/A; sg 13:52 Body Mass Index 27.79 (75.75 kg, 165.10 cm) ED Course: 13:50 Patient arrived in ED. as 13:52 Triage completed. ss 13:52 Arm band placed on left wrist. ss 14:57 No provider procedures requiring assistance completed. Patient did not have IV access sg during this emergency room visit. 14:58 Manfred Breen, RN is Primary Nurse. sg 15:08 Raymond Martin [facility]. pm1 15:08 Ranjeet Malcolm MD is Attending Physician. pm1 15:30 Pulse ox on. NIBP on. sg 15:43 Patient has correct armband on for positive identification. Bed in low position. Call sg light in reach. Administered Medications: No medications were administered Outcome: 15:31 Discharge ordered by . pm1 15:40 Discharged to home ambulatory, with friend. sg 15:40 Condition: good 15:40 Discharge instructions given to patient, Instructed on discharge instructions, follow up and referral plans. safety practices, Demonstrated understanding of instructions, follow-up care, Prescriptions given X 1. 15:42 Patient left the ED. dm5 Signatures: Calli Rodriguez RN RN dmManfred Ramírez RN RN sg Martinez, Amelia as Williams, Irene, RN RN Cherelle Gao RN RN Raymond Martin NP STEAM TRAIN DRIVER pm1
--- NOTE | 2019-01-13 15:33 | EDPHYS ---
Physician Documentation [facility] Name: Lisa Acosta Age: 63 yrs Sex: Female : 1955 Arrival Date: 01/13/2019 Time: 13:50 Bed 10 Private MD: ED Physician Ranjeet Malcolm HPI: 01/13 15:30 This 63 yrs old Female presents to ER via Ambulatory with complaints of Eye pm1 Problem. 15:30 The patient is experiencing redness, to the right eye, caused by an unknown mechanism. pm1 Onset: The symptoms/episode began/occurred yesterday. Duration: the symptoms are continuous. Aggravated by nothing. Alleviated by nothing. Associated signs and symptoms: Pertinent negatives: chills, ear ache, fever, headache, runny nose. Patient does not utilize any form of vision correction. Severity of symptoms: in the emergency department the symptoms are unchanged. The patient has not experienced similar symptoms in the past. The patient has not recently seen a physician. Historical: - Allergies: 13:52 Bactrim DS; ss - PMHx: 13:52 colon cancer (February 10, 2016); 36 radiations and 15 months of chemo after colon cancer.; ss Diabetes - NIDDM; Hypertension; - PSHx: 13:52 Hysterectomy; Hernia repair; ss - Immunization history:: Adult Immunizations unknown. - Social history:: Smoking status: Patient uses tobacco products, smokes one-half pack cigarettes per day. - Ebola Screening: : Patient denies exposure to infectious person Patient denies travel to an Ebola-affected area in the 21 days before illness onset. ROS: 15:30 Constitutional: Negative for fever, chills, and weight loss, ENT: Negative for injury, pm1 pain, and discharge. 15:30 Neck: Negative for injury, pain, and swelling, Cardiovascular: Negative for chest pain, palpitations, and edema, Respiratory: Negative for shortness of breath, cough, wheezing, and pleuritic chest pain, Abdomen/GI: Negative for abdominal pain, nausea, vomiting, diarrhea, and constipation, Back: Negative for injury and pain, MS/Extremity: Negative for injury and deformity, Skin: Negative for injury, rash, and discoloration, Neuro: Negative for headache, weakness, numbness, tingling, and seizure. 15:30 Eyes: Positive for itching, matting, redness, Negative for blurry vision, foreign body sensation, pain, swelling, tearing, vision loss, visual disturbance. Exam: 15:30 Constitutional: This is a well developed, well nourished patient who is awake, alert, pm1 and in no acute distress. Head/Face: Normocephalic, atraumatic. 15:30 ENT: Nares patent. No nasal discharge, no septal abnormalities noted. Tympanic membranes are normal and external auditory canals are clear. Oropharynx with no redness, swelling, or masses, exudates, or evidence of obstruction, uvula midline. Mucous membranes moist. Neck: Trachea midline, no thyromegaly or masses palpated, and no cervical lymphadenopathy. Supple, full range of motion without nuchal rigidity, or vertebral point tenderness. No Meningismus. Chest/axilla: Normal chest wall appearance and motion. Nontender with no deformity. No lesions are appreciated. Cardiovascular: Regular rate and rhythm with a normal S1 and S2. No gallops, murmurs, or rubs. Normal PMI, no JVD. No pulse deficits. Respiratory: Lungs have equal breath sounds bilaterally, clear to auscultation and percussion. No rales, rhonchi or wheezes noted. No increased work of breathing, no retractions or nasal flaring. Abdomen/GI: Soft, non-tender, with normal bowel sounds. No distension or tympany. No guarding or rebound. No evidence of tenderness throughout. Back: No spinal tenderness. No costovertebral tenderness. Full range of motion. Skin: Warm, dry with normal turgor. Normal color with no rashes, no lesions, and no evidence of cellulitis. MS/ Extremity: Pulses equal, no cyanosis. Neurovascular intact. Full, normal range of motion. 15:30 Eyes: Periorbital structures: appear normal, Pupils: no acute changes, normal size, normal reaction to light, Extraocular movements: no acute changes, Conjunctiva: injected, in the right eye, subconjunctival hemorrhage(s), seen in the right eye, at 6 o'clock, Corneas: are normal, no evidence of abrasion, no foreign body, Lids and lashes: appear normal, bilaterally. 15:30 Neuro: Orientation: is normal, Motor: is normal, moves all fours, Gait: is steady, at a normal pace, without difficulty. Vital Signs: 13:52 BP 140 / 96; Pulse 93; Resp 18; Temp 98.6(O); Pulse Ox 97% on R/A; Weight 75.75 kg; ss Height 5 ft. 5 in. (165.10 cm); Pain 0/10; 15:40 BP 140 / 88; Pulse 92; Resp 17; Temp 98.2; Pulse Ox 98% on R/A; sg 13:52 Body Mass Index 27.79 (75.75 kg, 165.10 cm) ss MDM: 15:28 Patient medically screened. pm1 15:29 ED course: Appears to be a subconjuctival hemorrhage but patient reports itching with pm1 yellow matting to right eye this AM, therefore will treat as conjunctivitis. . 15:30 Data reviewed: vital signs. Data interpreted: Pulse oximetry: on room air is 97 %. pm1 Interpretation: normal. Counseling: I had a detailed discussion with the patient and/or guardian regarding: the historical points, exam findings, and any diagnostic results supporting the discharge/admit diagnosis, the need for outpatient follow up, to return to the emergency department if symptoms worsen or persist or if there are any questions or concerns that arise at home. Administered Medications: No medications were administered Disposition: 01/13/19 15:31 Discharged to Home. Impression: Conjunctivitis - Right eye. - Condition is Stable. - Discharge Instructions: Bacterial Conjunctivitis, Subconjunctival Hemorrhage. - Prescriptions for Erythromycin 5 mg/gram (0.5 %) Ophthalmic Ointment - apply 1 centimeter by OPHTHALMIC route every 8 hours for 7 days; 1 tube. - Work release form, Medication Reconciliation Form, Thank You Letter, Antibiotic Education, Prescription Opioid Use form. - Follow up: Emergency Department; When: As needed; Reason: Worsening of condition. Follow up: Private Physician; When: 2 - 3 days; Reason: Recheck today's complaints, Continuance of care, Re-evaluation by your physician. - Problem is new. - Symptoms have improved. Addendum: 01/14/2019 16:32 Co-signature as Attending Physician, Ranjeet Malcolm MD. g s Signatures: Calli Rodriguez, RN RN dm5 Cherelle Gao RN RN ss Raymond Martin, SHIKHA HOSE OPERATOR pm1 Ranjeet Malcolm MD MD gs Corrections: (The following items were deleted from the chart) 01/13 15:42 15:31 01/13/2019 15:31 Discharged to Home. Impression: Conjunctivitis - Right eye. dm5 Condition is Stable. Forms are Medication Reconciliation Form, Thank You Letter, Antibiotic Education, Prescription Opioid Use. Follow up: Emergency Department; When: As needed; Reason: Worsening of condition. Follow up: Private Physician; When: 2 - 3 days; Reason: Recheck today's complaints, Continuance of care, Re-evaluation by your physician. Problem is new. Symptoms have improved. pm1
[2019-01-13 16:02] VITALS: BP 140/96; TEMP 98.6; O2SAT 97
== END 2019-01-13 15:42 | disposition home or self-care (01) ==
LOC: ER 13:37
DX: N30.90 Cystitis, unspecified without hematuria (principal); Z88.0 Allergy status to penicillin; Z88.8 Allergy status to other drugs, medicaments and biological substances
CPT/HCPCS: 99283

== ENCOUNTER 2019-03-12 18:07 | Emergency (ER) | payer OTHER ==
[2019-03-12 18:55] LABS: Absolute Lymphocytes (CBC) 0.5 K/uL (0.7-4.9); Basophils % 0.5 % (0-1.3); Hematocrit 39.8 % (36.0-45.0); Lymphocytes % 12.1 % (15.3-44.8); MPV 7.6 fL (7.6-11.3); Monocytes % 9.5 % (3.3-12.3)
[2019-03-12 19:10] LABS: ALT/SGPT 32 U/L (12-78); AST/SGOT 31 U/L (15-37); Albumin 3.6 g/dL (3.4-5.0); Alkaline Phosphatase 92 U/L (45-117); BUN Blood Urea Nitrogen 10 mg/dL (7-18); Bicarbonate 29 mmol/L (21-32); Bilirubin Total 0.5 mg/dL (0.2-1.0); Glucose Level 96 mg/dL (74-106); Potassium 3.6 mmol/L (3.5-5.1); Protein, Total 6.9 g/dL (6.4-8.2); Sodium Level 141 mmol/L (136-145)
--- NOTE | 2019-03-12 19:58 | RAD REPORT ---
EXAM DESCRIPTION: RAD -Hand Left 3 View - 03/12/2019 7:35 pm CLINICAL HISTORY: Left hand pain FINDINGS: Mildly to moderately displaced comminuted fracture involves distal second metacarpal which may be subacute. Osteoporosis Moderate osteoarthritis first carpometacarpal joint No dislocation
[2019-03-12] MEDS ORDERED: HYDROCODONE/APAP 10/325 TAB ONE (20:34)
--- NOTE | 2019-03-12 20:50 | ER ---
Nurse's Notes [facility] Name: Lisa Acosta Age: 63 yrs Sex: Female : 1955 Arrival Date: 03/12/2019 Time: 18:09 Bed 13 Private MD: Diagnosis: 2nd Metacarpal Fracture Presentation: 03/12 18:11 Presenting complaint: Patient states: I woke up with swelling, bruising, and pain to me la1 left hand. Transition of care: patient was not received from another setting of care. Onset of symptoms was March 12, 2019. Risk Assessment: Do you want to hurt yourself or someone else? Patient reports no desire to harm self or others. Initial Sepsis Screen: Does the patient meet any 2 criteria? No. Patient's initial sepsis screen is negative. Does the patient have a suspected source of infection? No. Patient's initial sepsis screen is negative. Care prior to arrival: None. 18:11 Method Of Arrival: Ambulatory la1 18:11 Acuity: KIRAN 3 la1 Historical: - Allergies: 18:12 Bactrim DS; la1 - PMHx: 18:12 36 radiations and 15 months of chemo after colon cancer.; colon cancer (February 10, 2016); la1 Diabetes - NIDDM; Hypertension; - Immunization history:: Adult Immunizations up to date. - Social history:: Smoking status: Patient uses tobacco products, smokes one pack cigarettes per day. - Ebola Screening: : No symptoms or risks identified at this time. Screenin:15 Abuse screen: Denies threats or abuse. Nutritional screening: No deficits noted. rb1 Tuberculosis screening: No symptoms or risk factors identified. Fall Risk None identified. Assessment: 18:15 General: Appears uncomfortable, Behavior is calm, cooperative, Denies fever. Pain: rb1 Complains of pain in left hand Pain currently is 7 out of 10 on a pain scale. Pain began 1 day ago. Neuro: Level of Consciousness is awake, alert, obeys commands, Oriented to person, place, time, situation. Cardiovascular: Capillary refill < 3 seconds is brisk in bilateral fingers. Respiratory: Airway is patent Respiratory effort is even, unlabored, Respiratory pattern is regular, symmetrical. GI: No signs and/or symptoms were reported involving the gastrointestinal system. : No signs and/or symptoms were reported regarding the genitourinary system. Derm: Bruising that is dark purple, on left hand and left forearm. Musculoskeletal: Swelling present in left hand. 19:30 Reassessment: Patient appears in no apparent distress at this time. Patient and/or jb4 family updated on plan of care and expected duration. Pain level reassessed. Patient is alert, oriented x 3, equal unlabored respirations, skin warm/dry/pink. 20:30 Reassessment: Patient appears in no apparent distress at this time. Patient and/or jb4 family updated on plan of care and expected duration. Pain level reassessed. Patient is alert, oriented x 3, equal unlabored respirations, skin warm/dry/pink. 21:09 Reassessment: Patient appears in no apparent distress at this time. Patient and/or jb4 family updated on plan of care and expected duration. Pain level reassessed. Patient is alert, oriented x 3, equal unlabored respirations, skin warm/dry/pink. Patient states feeling better. Vital Signs: 18:12 BP 107 / 79; Pulse 81; Resp 16; Temp 97.6; Pulse Ox 98% on R/A; Weight 53.52 kg; Height la1 5 ft. 0 in. (152.40 cm); 20:00 BP 133 / 87; Pulse 80; Resp 16; Pulse Ox 96% on R/A; jb4 21:00 BP 134 / 97; Pulse 75; Resp 18; Pulse Ox 97% on R/A; jb4 18:12 Body Mass Index 23.05 (53.52 kg, 152.40 cm) la1 ED Course: 18:09 Patient arrived in ED. as 18:12 Triage completed. la1 18:12 Arm band placed on right wrist. la1 18:13 Allyn Dalton, TANI is Primary Nurse. rb1 18:15 Patient has correct armband on for positive identification. Bed in low position. Call rb1 light in reach. Side rails up X 1. Pulse ox on. NIBP on. 18:26 Jorge Adhikari PA is PHCP. m 18:26 Gideon Cobos MD is Attending Physician. jmm 18:45 Inserted saline lock: 22 gauge in right antecubital area, using aseptic technique. rb1 Blood collected. 19:05 Report given to TANI Maya. rb1 19:36 Hand Left 3 View XRAY In Process Unspecified. EDMS 20:47 Orthoglass splint: Ulnar gutter/Boxer splint applied on left forearm. oe 20:48 Osvaldo Kohler MD is Referral Physician. jmm 21:00 No provider procedures requiring assistance completed. IV discontinued, intact, jb4 bleeding controlled, No redness/swelling at site. Administered Medications: 20:20 Drug: [place] 10 mg-325 mg 1 tabs Route: PO; jb4 21:08 Follow up: Response: No adverse reaction; Pain is decreased jb4 Outcome: 20:48 Discharge ordered by MD. jmm 21:00 Discharged to home ambulatory, with family. jb4 21:00 Condition: stable 21:00 Discharge instructions given to patient, family, Instructed on discharge instructions, follow up and referral plans. medication usage, Demonstrated understanding of instructions, follow-up care, medications, Prescriptions given X 1. 21:12 Patient left the ED. jb4 Signatures: Dispatcher [employer] EDMS Jorge Adhikari PA PA Aarti Barreto Lee RN RN la1 Allyn Dalton, TANI RN rb1 Balwinder Bailey RN RN jb4 Hermes Kelly oe Corrections: (The following items were deleted from the chart) 18:31 18:11 Acuity: KIRAN 4 la1 la1
--- NOTE | 2019-03-12 20:50 | EDPHYS ---
Physician Documentation [facility] Name: Lisa Acosta Age: 63 yrs Sex: Female : 1955 Arrival Date: 03/12/2019 Time: 18:09 Bed 13 Private MD: ED Physician Gideon Cobos HPI: 03/12 18:28 This 63 yrs old Female presents to ER via Ambulatory with complaints of Hand jmm Swelling. 18:28 The patient or guardian reports pain, swelling. Onset: The symptoms/episode jmm began/occurred gradually, today. Modifying factors: The symptoms are alleviated by nothing, the symptoms are aggravated by movement. Associated signs and symptoms: Pertinent negatives: fever. This is a 63 year old female with a history of colon cancer that presents to the ED with complaints of left hand swelling. Patient states she felt something hit her hand yesterday while doing yard work. Patient is unsure what hit her. Patient denies fever or chills. . Historical: - Allergies: 18:12 Bactrim DS; la1 - PMHx: 18:12 36 radiations and 15 months of chemo after colon cancer.; colon cancer (February 10, 2016); la1 Diabetes - NIDDM; Hypertension; - Immunization history:: Adult Immunizations up to date. - Social history:: Smoking status: Patient uses tobacco products, smokes one pack cigarettes per day. - Ebola Screening: : No symptoms or risks identified at this time. ROS: 18:28 Constitutional: Negative for fever, chills, and weight loss, Cardiovascular: Negative jmm for chest pain, palpitations, and edema, Respiratory: Negative for shortness of breath, cough, wheezing, and pleuritic chest pain. 18:28 MS/extremity: Positive for pain, swelling. 18:28 All other systems are negative. Exam: 18:28 Constitutional: This is a well developed, well nourished patient who is awake, alert, jmm and in no acute distress. Head/Face: atraumatic. Eyes: EOMI, no conjunctival erythema appreciated ENT: Moist Mucus Membranes Neck: Trachea midline, Supple Chest/axilla: Normal chest wall appearance and motion. Cardiovascular: Regular rate and rhythm. No edema appreciated Respiratory: Normal respirations, no respiratory distress appreciated Back: Normal ROM 18:28 Musculoskeletal/extremity: ROM: intact in all extremities, painful rom noted to the left 2nd mcp joint, the joint is ttp, < 2 sec dist cap refill, compartments are soft, NVI. 18:28 Skin: erythema noted to the dorsum of the left hand, TTP. 18:28 Neuro: Orientation: is normal, Mentation: is normal, Memory: is normal. 18:28 Psych: Behavior/mood is pleasant, cooperative. Vital Signs: 18:12 BP 107 / 79; Pulse 81; Resp 16; Temp 97.6; Pulse Ox 98% on R/A; Weight 53.52 kg; Height la1 5 ft. 0 in. (152.40 cm); 20:00 BP 133 / 87; Pulse 80; Resp 16; Pulse Ox 96% on R/A; jb4 21:00 BP 134 / 97; Pulse 75; Resp 18; Pulse Ox 97% on R/A; jb4 18:12 Body Mass Index 23.05 (53.52 kg, 152.40 cm) la1 Procedures: 20:47 Splinting: Splint applied to left hand using ulnar gutter. applied by tech. Examined by etta me, post splint application: neurovascular intact, 2+ distal pulses palpable, brisk capillary refill noted, Patient tolerated well. MDM: 18:28 Patient medically screened. etta 20:47 Data reviewed: vital signs, nurses notes. Counseling: I had a detailed discussion with etta the patient and/or guardian regarding: the historical points, exam findings, and any diagnostic results supporting the discharge/admit diagnosis, lab results, radiology results, the need for outpatient follow up, to return to the emergency department if symptoms worsen or persist or if there are any questions or concerns that arise at home. ED course: Patient given f/uy info for hand surgery. Patient given compartment syndrome return precautions. Patient understood and agrees with the plan of care. . 03/12 18:31 Order name: CBC with Diff; Complete Time: 18:58 [facility] 03/12 18:31 Order name: CMP; Complete Time: 19:11 [facility] 03/12 18:31 Order name: Hand Left 3 View XRAY; Complete Time: 19:59 [facility] 03/12 18:31 Order name: Saline Lock; Complete Time: 18:51 [facility] 03/12 19:59 Order name: Ulnar Gutter splint; Complete Time: 21:08 [facility] Administered Medications: 20:20 Drug: [place] 10 mg-325 mg 1 tabs Route: PO; jb4 21:08 Follow up: Response: No adverse reaction; Pain is decreased jb4 Disposition: 03/12/19 20:48 Discharged to Home. Impression: 2nd Metacarpal Fracture. - Condition is Stable. - Discharge Instructions: Metacarpal Fracture. - Prescriptions for Tylenol- Codeine #3 300-30 mg Oral Tablet - take 1 tablet by ORAL route every 6 hours As needed; 20 tablet. - Medication Reconciliation Form, Thank You Letter, Antibiotic Education, Prescription Opioid Use form. - Follow up: Osvaldo Kohler MD; When: 1 - 2 days; Reason: Recheck today's complaints, Continuance of care, Re-evaluation by your physician. Addendum: 03/15/2019 15:57 Co-signature as Attending Physician, Gideon Cobos MD. r n Signatures: Dispatcher [employer] EDMS Jorge Adhikari PA PA [facility] Gideon Cobos MD MD rn Attema, Lee, RN RN laBalwinder Santos RN RN jb4 Corrections: (The following items were deleted from the chart) 03/12 21:12 20:48 03/12/2019 20:48 Discharged to Home. Impression: 2nd Metacarpal Fracture. jb4 Condition is Stable. Forms are Medication Reconciliation Form, Thank You Letter, Antibiotic Education, Prescription Opioid Use. Follow up: Osvaldo Kohler; When: 1 - 2 days; Reason: Recheck today's complaints, Continuance of care, Re-evaluation by your physician. [facility]
[2019-03-12 21:22] VITALS: TEMP 97.6
[2019-03-12 21:24] VITALS: BP 134/97; O2SAT 97
== END 2019-03-12 21:12 | disposition home or self-care (01) ==
LOC: ER 18:07
DX: S62.391A Other fracture of second metacarpal bone, left hand, initial encounter for closed fracture (principal); W20.8XXA Other cause of strike by thrown, projected or falling object, initial encounter; Y93.H2 Activity, gardening and landscaping; Y92.007 Garden or yard of unspecified non-institutional (private) residence as the place of occurrence of the external cause; Z88.1 Allergy status to other antibiotic agents; Z85.038 Personal history of other malignant neoplasm of large intestine; F17.210 Nicotine dependence, cigarettes, uncomplicated
CPT/HCPCS: 36415; 80053; 85025; 99284

== ENCOUNTER 2019-03-16 10:07 | Day surgery (SDC) | payer OTHER ==
--- NOTE | 2019-03-15 15:34 | RAD REPORT ---
EXAM DESCRIPTION: RAD - Chest Pa And Lat (2 Views) - 03/15/2019 3:26 pm CLINICAL HISTORY: preop Chest pain. COMPARISON: Chest Pa And Lat (2 Views) dated 11/18/2018; Abdomen Acute Series dated 02/02/2016; CHEST S ADRIENNE VIEW dated 10/29/2015 FINDINGS: Diffuse COPD. A rounded density/ nodularity in the right apex. The heart is normal in size . Dextroscoliosis thoracic spine. IMPRESSION: COPD. Rounded nodule/ density seen in the right apex, new since comparative study. Recommend CT chest follo wup assessment.
[2019-03-15 16:00] LABS: Urine Appearance CLEAR; Urine Bilirubin NEGATIVE (NEG); Urine Blood NEGATIVE (NEG); Urine Color YELLOW; Urine Glucose NEGATIVE (NEG); Urine Protein NEGATIVE (NEG); Urine Specific Gravity <=1.005 (1.005-1.030); Urine Urobilinogen 0.2 mg/dL (0.2-1.0); Urine pH 5.5 (5.0-7.0)
[2019-03-15 16:00] LABS: Absolute Lymphocytes (CBC) 0.6 K/uL (0.7-4.9); Basophils % 0.4 % (0-1.3); Eosinophils % 2.3 % (0-4.4); Lymphocytes % 10.4 % (15.3-44.8); MPV 7.4 fL (7.6-11.3); Monocytes % 12.4 % (3.3-12.3); RBC Red Blood Cell Count 3.97 M/uL (3.86-4.86)
[2019-03-15 16:31] LABS: Urine Microscopic Reflex NO UMIC
[2019-03-15 16:35] LABS: Blood Morphology Comment NOTED (NOT SEEN); Macrocytosis 1+; Platelet Estimate ADEQ; Urine White Blood Cell Casts OK
--- NOTE | 2019-03-16 07:22 | EKG ---
Test Date: 2019-03-15 Test Time: 15:30:13 Bumboater: BABAK MEASUREMENT RESULTS: Intervals: Rate: 82 IN: 142 QRSD: 88 QT: 384 QTc: 448 [place]: P: 65 IN: 142 QRS: 37 T: 57 INTERPRETIVE STATEMENTS: Normal sinus rhythm Possible Left atrial enlargement Borderline ECG Compared to ECG 04/03/2017 21:48:31 Myocardial infarct finding no longer present Electronically Signed On 03-16-19 07:20:41 CDT by Marcial Wood
[2019-03-16] MEDS ORDERED: CEFAZOLIN/SWI 1gm 1 GM/10 ML SYR ONE (10:29)
[2019-03-16] MEDS ORDERED: NA CHLORIDE 0.9% 1,000 ML ONE (10:29)
[2019-03-16] MEDS ORDERED: PROPOFOL 200 MG/20 ML VIAL IV ONE (10:32)
[2019-03-16] MEDS ORDERED: MIDAZOLAM HCL 2 MG/2 ML INJ ONE (10:33)
[2019-03-16] MEDS ORDERED: FENTANYL CITR 100 MCG/2 ML ONE (10:33)
[2019-03-16] MEDS ORDERED: LIDOCAINE 2% MPF 5 ML VIAL ONE (10:33)
[2019-03-16] MEDS ORDERED: ONDANSETRON 4 MG/2 ML VIAL ONE (10:35)
--- NOTE | 2019-03-16 11:12 | RAD REPORT ---
EXAM DESCRIPTION: RAD - Hand Left 2 View - 03/16/2019 11:03 am CLINICAL HISTORY: LEFT SECOND MC PINNING COMPARISON: Hand Left 3 View dated 03/12/2019 FINDINGS: Total fluoro time 0.4 minutes
[2019-03-16 12:43] VITALS: BP 102/70; TEMP 97.6; O2SAT 99
--- NOTE | 2019-03-16 15:50 | OP ---
Surgeon: Osvaldo Kohler MD Preoperative Diagnosis: Fracture of the left index finger, metacarpal head. Postoperative Diagnosis: Fracture of the left index finger, metacarpal head. Procedure Performed: Percutaneous pinning, closed reduction splint. Anesthesia: General. Description Of Procedure: After satisfactory induction of general anesthesia, left arm was prepped w ith DuraPrep, dry sterile drapes placed in the usual manner. The arm was elevated, exsanguinated wit h an Esmarch, tourniquet inflated to 250 mmHg. 0.045 K-wire was placed from distal to proximal with MCP at 90 degrees, reduced the fracture. C-arm was used. K-wires were cut and bent and then tourniq uet released. Dressed with Xeroform, Kerlix, and a splint holding the wrist 10 degrees dorsiflexion, MCP 90, PIP and DIP 0. Patient tolerated the procedure well and returned to Recovery. XIN/LINDA Voice ID: [id number] Report ID: [id number]
== END 2019-03-16 12:30 | disposition home or self-care (01) ==
LOC: OR 10:07
PROVIDERS: ATTEND Specialist
PROC: 0PSQ34Z Reposition Left Metacarpal with Internal Fixation Device, Percutaneous Approach (ICD-10-PCS; principal; 2019-03-16 11:00)
DX: S62.391A Other fracture of second metacarpal bone, left hand, initial encounter for closed fracture (principal); X58.XXXA Exposure to other specified factors, initial encounter
CPT/HCPCS: 26608; 93005; 85025; 36415; 82962 ×2; 81003; 71046; 73120; J2704; J2250; J3010; J0690; J7030; J2405

== ENCOUNTER 2019-05-03 18:01 | Emergency (ER) | payer OTHER ==
[2019-05-03 19:15] LABS: Absolute Lymphocytes (CBC) 0.7 K/uL (0.7-4.9); Basophils % 1.5 % (0-1.3); Hematocrit 41.4 % (36.0-45.0); Lymphocytes % 8.9 % (15.3-44.8); RBC Red Blood Cell Count 3.99 M/uL (3.86-4.86)
[2019-05-03 19:17] LABS: Protime INR 0.9
[2019-05-03 19:19] LABS: Urine Blood 2+ (NEG); Urine Glucose NEGATIVE (NEG); Urine Protein NEGATIVE (NEG); Urine pH 5.5 (5.0-7.0)
--- NOTE | 2019-05-03 19:22 | RAD REPORT ---
EXAM DESCRIPTION: RAD - Chest Single View - 05/03/2019 7:16 pm CLINICAL HISTORY: syncope Chest pain. COMPARISON: Chest Pa And Lat (2 Views) dated 03/15/2019; Chest Pa And Lat (2 Views) dated 11/18/2018; Abdomen Acute Series dated 02/02/2016; CHEST SINGLE VIEW dated 10/29/2015 FINDINGS: Portable technique limits examination quality. The lungs are grossly clear. The heart is normal in size. Mild thoracic dextroscoliosis.Right-sided p ort catheter tip in the SVC. IMPRESSION: No acute intrathoracic process suspected.
[2019-05-03 19:36] LABS: ALT/SGPT 33 U/L (12-78); AST/SGOT 28 U/L (15-37); Albumin 3.8 g/dL (3.4-5.0); Alkaline Phosphatase 117 U/L (45-117); BUN Blood Urea Nitrogen 12 mg/dL (7-18); Bicarbonate 22 mmol/L (21-32); Bilirubin Direct < 0.1 mg/dL (0-0.2); Bilirubin Total 0.2 mg/dL (0.2-1.0); Glucose Level 90 mg/dL (74-106); Magnesium 2.3 mg/dL (1.8-2.4); NT PRO-BNP 244 pg/mL (<125); Protein, Total 7.6 g/dL (6.4-8.2); Sodium Level 140 mmol/L (136-145); Troponin (Emerg Dept Use Only) < 0.02 ng/mL (0.0-0.045)
[2019-05-03 19:52] LABS: Urine Bacteria 20-50 /HPF (<20); Urine Culture Reflex Order REFLEXED
--- NOTE | 2019-05-03 20:29 | RAD REPORT ---
EXAM DESCRIPTION: CT - Head Brain Wo Cont - 05/03/2019 8:20 pm CLINICAL HISTORY: SYNCOPE Headache, drowsiness, syncope COMPARISON: No comparisons TECHNIQUE: All CT scans are performed using dose optimization technique as appropriate and may inclu de automated exposure control or mA/KV adjustment according to patient size. FINDINGS: No intracranial hemorrhage, hydrocephalus or extra-axial fluid collection.No areas of brai n edema or evidence of midline shift. The paranasal sinuses and mastoids are clear. The calvarium is intact. IMPRESSION: No acute intracranial abnormality.
--- NOTE | 2019-05-03 20:33 | RAD REPORT ---
EXAM DESCRIPTION: CT - Chest For Pe Angio - 05/03/2019 8:24 pm CLINICAL HISTORY: Chest pain. syncope COMPARISON: Chest Single View dated 05/03/2019; Chest Pa And Lat (2 Views) dated 03/15/2019; Head Brain Wo Cont dated 05/03/2019 TECHNIQUE: CT angiogram of the pulmonary arteries was performed with MIP. All CT scans are performed using dose optimization technique as appropriate and may include automated exposure control or mA/KV adjustment according to patient size. FINDINGS: No evidence of pulmonary thromboembolism. No acute aortic finding demonstrated. Irregular right apical mass noted measuring 27 x 26 mm. Diffuse COPD is present. No significant pericardial or pleural fluid. Right-sided port catheter noted. No lytic or blastic bone lesion. IMPRESSION: No evidence of pulmonary thromboembolism. COPD with irregular 27 mm right apical mass likely neoplastic in etiology.
[2019-05-03] MEDS ORDERED: NA CHLORIDE 0.9% 1,000 ML ONE (20:54)
--- NOTE | 2019-05-03 21:47 | ER ---
Nurse's Notes [facility] Name: Lisa Acosta Age: 63 yrs Sex: Female : 1955 Arrival Date: 05/03/2019 Time: 18:04 Bed 18 Private MD: Diagnosis: Syncope and collapse Presentation: 05/03 18:06 Presenting complaint: Patient states: i went out in my yard about 330pm today and then tw2 i woke up about 11 minutes later, i blacked out, i just freaked out because Wednesday i got the call that my cancer is back in my pancreas, about 430pm i just blacked out and dont know what happened, but i had 2 drinks before i got here because i was so sad, i am a diabetic as well, i am having pain in my lower stomach, i have had colon cancer before. Transition of care: patient was not received from another setting of care. Onset of symptoms was May 03, 2019. Risk Assessment: Do you want to hurt yourself or someone else? Patient reports no desire to harm self or others. Initial Sepsis Screen: Does the patient meet any 2 criteria? No. Patient's initial sepsis screen is negative. Does the patient have a suspected source of infection? No. Patient's initial sepsis screen is negative. Care prior to arrival: None. 18:06 Method Of Arrival: Wheelchair tw2 18:06 Acuity: KIRAN 3 tw2 18:20 Note pts brother outside ER with can of beer and a cigarette trying to come inside to tw2 see his sister, registration instructed pts brother he cannot have either item on our campus, security notified. Triage Assessment: 18:09 General: Appears in no apparent distress. slender, Behavior is cooperative, appropriate tw2 for age. Pain: Complains of pain in abdomen. Historical: - Allergies: 18:11 Bactrim DS; tw2 18:11 Sulfa (Sulfonamide Antibiotics); tw2 - Home Meds: 18:11 metformin 500 mg Oral tab 2 times per day [Active]; morphine 15 mg Oral TbTQ 1 tab tw2 every 12 hours [Active]; lisinopril 5 mg Oral tab 1 tab once daily [Active]; - PMHx: 18:11 36 radiations and 15 months of chemo after colon cancer.; colon cancer (February 10, 2016); tw2 Diabetes - NIDDM; Hypertension; - Immunization history:: Adult Immunizations. - Social history:: Smoking status: Patient uses tobacco products, smokes one-half pack cigarettes per day. - Ebola Screening: : Patient denies travel to an Ebola-affected area in the 21 days before illness onset. Screenin:10 Abuse screen: Denies threats or abuse. Denies injuries from another. Nutritional jl7 screening: No deficits noted. Tuberculosis screening: No symptoms or risk factors identified. Fall Risk IV access (20 points). Total Souza Fall Scale indicates No Risk (0-24 pts). Assessment: 18:30 General: Appears in no apparent distress. comfortable, Behavior is calm, cooperative, jl7 appropriate for age, Smells of alcohol. Pain: Denies pain. Neuro: Level of Consciousness is awake, alert, obeys commands, Oriented to person, place, time, situation, Moves all extremities. Full function Gait is steady, Speech is normal, Facial symmetry appears normal. Cardiovascular: Patient's skin is warm and dry. Respiratory: Airway is patent Respiratory effort is even, unlabored, Respiratory pattern is regular, symmetrical. Derm: Skin is pink, warm \T\ dry. 19:05 Reassessment: Patient appears in no apparent distress at this time. Patient and/or aa1 family updated on plan of care and expected duration. Pain level reassessed. Patient is alert, oriented x 3, equal unlabored respirations, skin warm/dry/pink. Awaiting blood work results. 20:04 Reassessment: Patient appears in no apparent distress at this time. Patient and/or aa1 family updated on plan of care and expected duration. Pain level reassessed. Patient is alert, oriented x 3, equal unlabored respirations, skin warm/dry/pink. Awaiting CT scan. 21:02 Reassessment: Patient appears in no apparent distress at this time. Patient and/or aa1 family updated on plan of care and expected duration. Pain level reassessed. Patient is alert, oriented x 3, equal unlabored respirations, skin warm/dry/pink. NS bolus infusing. Will reassess for d/c once complete Patient states feeling better. 22:06 Reassessment: Patient appears in no apparent distress at this time. Patient is alert, aa1 oriented x 3, equal unlabored respirations, skin warm/dry/pink. Discussed d/c \T\ f/u instructions with pt; denies questions or concerns at this time. Ambulates to lobby with steady gait Patient denies pain at this time. Patient states feeling better. Vital Signs: 18:08 BP 105 / 79; Pulse 109; Resp 18; Temp 98.4(TE); Pulse Ox 96% on R/A; Weight 52.62 kg tw2 (R); Height 5 ft. 5 in. (165.10 cm); Pain 8/10; 19:05 BP 104 / 83; Pulse 94; Resp 20; Pulse Ox 99% on R/A; Pain 0/10; aa1 20:06 BP 113 / 84; Pulse 91; Resp 20; Temp 98.1; Pulse Ox 98% on R/A; Pain 0/10; aa1 21:02 BP 107 / 68; Pulse 90; Resp 18; Pulse Ox 99% on R/A; Pain 0/10; aa1 22:06 BP 125 / 84; Pulse 89; Resp 18; Temp 98.3; Pulse Ox 100% on R/A; Pain 2/10; aa1 18:08 Body Mass Index 19.30 (52.62 kg, 165.10 cm) tw2 ED Course: 18:04 Patient arrived in ED. mr 18:08 Triage completed. tw2 18:08 Arm band placed on. tw2 18:28 Stephen Mclaughlin, TANI is Primary Nurse. jl7 18:41 Jeb March PA is PHCP. cp 18:41 Gideon Cobos MD is Attending Physician. cp 19:02 EKG done, by ED staff, reviewed by Jeb PRABHAKAR. dh3 19:10 Patient has correct armband on for positive identification. Placed in gown. Bed in low jl7 position. Call light in reach. Side rails up X 1. school bus monitor on. Pulse ox on. NIBP on. Warm blanket given. 19:10 Initial lab(s) drawn, by me, sent to lab. Inserted saline lock: 22 gauge in right jl7 forearm, using aseptic technique. Blood collected. 19:11 Urine collected: clean catch specimen, clear. dh3 19:17 XRAY Chest (1 view) In Process Unspecified. EDMS 19:38 Notified Nurse Practitioner and/or Physician Vice President [employer]ent Management of a critical lab result(s), chava D-dimer 805 Notified primary nurse of D-dimer 805. 20:[address] via stretcher. nj 20:22 CT Head Brain wo Cont In Process Unspecified. EDMS 20:25 CT Chest For PE Angio In Process Unspecified. EDMS 21:02 No provider procedures requiring assistance completed. aa1 21:46 Josue Moseley MD is Referral Physician. cp 21:51 Biju Can MD is Attending Physician. cp 22:06 IV discontinued, intact, bleeding controlled, No redness/swelling at site. Pressure aa1 dressing applied. Administered Medications: 20:56 Drug: NS 0.9% 1000 ml Route: IV; Rate: 1 bolus; Site: right forearm; aa1 Outcome: 21:47 Discharge ordered by MD. cp 22:06 Discharged to home ambulatory. aa1 22:06 Condition: good 22:06 Discharge instructions given to patient, Instructed on discharge instructions, follow up and referral plans. medication usage, Demonstrated understanding of instructions, follow-up care, medications. 22:08 Patient left the ED. aa1 Signatures: Dispatcher [employer] EDMS Alexandra Ugalde, RN RN aa1 Marcia Lin mr Jeb March, PA PA Mary Lou Polanco, RN RN tw2 Balwinder Bailey, RN RN jb4 Maverick Mills Jahala RN RN jl7 Honey Sherman 3 Corrections: (The following items were deleted from the chart) 18:09 18:06 Presenting complaint: Patient states: i went out in my yard about 330pm today and tw2 then i woke up about 11 minutes later, i blacked out, i just freaked out because Wednesday i got the call that my cancer is back in my pancreas, about 430pm i just blacked out and dont know what happened, but i had 2 drinks before i got here because i was so sad, i am a diabetic as well tw2
--- NOTE | 2019-05-03 21:48 | EDPHYS ---
Physician Documentation [facility] Name: Lisa Acosta Age: 63 yrs Sex: Female : 1955 Arrival Date: 05/03/2019 Time: 18:04 Bed 18 Private MD: ED Physician Biju Can HPI: 05/03 19:00 This 63 yrs old Female presents to ER via Wheelchair with complaints of cp Passed Out Prior To Arrival. 19:00 The patient has experienced syncope, lost consciousness. Onset: The symptoms/episode cp began/occurred today. Duration: The patient has had multiple episodes, that last an unknown period of time. Context: occurred at home, while walking in yard, Just prior to the episode the patient experienced no apparent symptoms. Associated injury: The patient did not suffer any apparent associated injury. Associated signs and symptoms: Pertinent negatives: abdominal pain, chest pain, headache, lightheadedness, palpitations, shortness of breath, vomiting, weakness. Current symptoms: Currently, the patient is not experiencing any symptoms. Patient admits to drinking alcohol prior to ED arrival. Historical: - Allergies: 18:11 Bactrim DS; tw2 18:11 Sulfa (Sulfonamide Antibiotics); tw2 - Home Meds: 18:11 metformin 500 mg Oral tab 2 times per day [Active]; morphine 15 mg Oral TbTQ 1 tab tw2 every 12 hours [Active]; lisinopril 5 mg Oral tab 1 tab once daily [Active]; - PMHx: 18:11 36 radiations and 15 months of chemo after colon cancer.; colon cancer (February 10, 2016); tw2 Diabetes - NIDDM; Hypertension; - Immunization history:: Adult Immunizations. - Social history:: Smoking status: Patient uses tobacco products, smokes one-half pack cigarettes per day. - Ebola Screening: : Patient denies travel to an Ebola-affected area in the 21 days before illness onset. ROS: 19:05 Constitutional: Negative for body aches, chills, fever, poor PO intake. cp 19:05 Eyes: Negative for injury, pain, redness, and discharge. cp 19:05 Neck: Negative for pain with movement, pain at rest, stiffness. 19:05 Cardiovascular: Negative for chest pain, edema, palpitations. 19:05 Respiratory: Negative for cough, shortness of breath, wheezing. 19:05 Abdomen/GI: Negative for abdominal pain, nausea, vomiting, and diarrhea, constipation, black/tarry stool, rectal bleeding. 19:05 Back: Negative for pain at rest, pain with movement, radiated pain. 19:05 Neuro: Positive for syncope, Negative for altered mental status, dizziness, headache, seizure activity, weakness. 19:05 All other systems are negative. Exam: 19:10 Constitutional: The patient appears in no acute distress, alert, awake, comfortable, cp non-diaphoretic, non-toxic, well developed, well nourished. 19:10 Head/Face: Normocephalic, atraumatic. cp 19:10 Eyes: Periorbital structures: appear normal, Pupils: equal, round, and reactive to light and accomodation, Extraocular movements: intact throughout, Conjunctiva: normal, no exudate, no injection, Sclera: no appreciated abnormality, Lids and lashes: appear normal, bilaterally. 19:10 ENT: External ear(s): are unremarkable, Ear canal(s): are normal, clear, TM's: dullness, bilaterally, Nose: is normal, Mouth: is normal, Posterior pharynx: is normal, airway is patent, no erythema, no exudate. 19:10 Neck: C-spine: vertebral tenderness, is not appreciated, crepitus, is not appreciated, ROM/movement: is normal, is supple, without pain, no range of motions limitations, no nuchal rigidity. 19:10 Chest/axilla: Inspection: normal, Palpation: is normal, no crepitus, no tenderness. 19:10 Cardiovascular: Rate: normal, Rhythm: regular, Edema: is not appreciated, JVD: is not appreciated. 19:10 Respiratory: the patient does not display signs of respiratory distress, Respirations: normal, no use of accessory muscles, no retractions, no splinting, no tachypnea, labored breathing, is not present, Breath sounds: are clear throughout, no decreased breath sounds, no stridor, no wheezing. 19:10 Abdomen/GI: Inspection: abdomen appears normal, Palpation: abdomen is soft and non-tender, in all quadrants. 19:10 Back: pain, is absent, ROM is normal. 19:10 Skin: no rash present. 19:10 Neuro: Orientation: to person, place \T\ time. Mentation: is normal, Cerebellar function: is grossly normal, Motor: moves all fours, strength is normal, Sensation: is normal, Gait: is steady, at a normal pace, without difficulty. Vital Signs: 18:08 BP 105 / 79; Pulse 109; Resp 18; Temp 98.4(TE); Pulse Ox 96% on R/A; Weight 52.62 kg tw2 (R); Height 5 ft. 5 in. (165.10 cm); Pain 8/10; 19:05 BP 104 / 83; Pulse 94; Resp 20; Pulse Ox 99% on R/A; Pain 0/10; aa1 20:06 BP 113 / 84; Pulse 91; Resp 20; Temp 98.1; Pulse Ox 98% on R/A; Pain 0/10; aa1 21:02 BP 107 / 68; Pulse 90; Resp 18; Pulse Ox 99% on R/A; Pain 0/10; aa1 22:06 BP 125 / 84; Pulse 89; Resp 18; Temp 98.3; Pulse Ox 100% on R/A; Pain 2/10; aa1 18:08 Body Mass Index 19.30 (52.62 kg, 165.10 cm) tw2 MDM: 18:53 Patient medically screened. cp 21:45 Data reviewed: vital signs, nurses notes, lab test result(s), radiologic studies, CT cp scan, plain films. 21:45 Counseling: I had a detailed discussion with the patient and/or guardian regarding: the cp historical points, exam findings, and any diagnostic results supporting the discharge/admit diagnosis, lab results, radiology results, the need for outpatient follow up, a director regulatory compliance, to return to the emergency department if symptoms worsen or persist or if there are any questions or concerns that arise at home. Response to treatment: the patient's symptoms have markedly improved after treatment. Refusal of service: The patient/guardian displays adequate decision making capability and despite a detailed discussion of alternatives, benefits, risks, and consequences refuses: Admission to the hospital for further work-up and treatment. ED course: Patient observed in ED and given IV fluids. Patient clinically sober and refuses admission for continued monitoring. Patient reminded of lung mass and need for f/u. 05/03 18:50 Order name: Basic Metabolic Panel; Complete Time: 19:58 cp 05/03 18:50 Order name: CBC with Diff; Complete Time: 19:58 05/03 19:58 Interpretation: Normal except: MCV 103.6; MPV 7.0; YING% 80.0; LYM% 8.9; BASO% 1.5. / 18:50 Order name: LFT's; Complete Time: 19:58 05/03 18:50 Order name: Magnesium; Complete Time: 19:58 05/03 18:50 Order name: NT PRO-BNP; Complete Time: 19:58 05/03 20:50 Interpretation: Abnormal: NT PRO-BNP 244. cp 05/03 18:50 Order name: PT-INR; Complete Time: 19:58 05/03 18:50 Order name: Troponin (emerg Dept Use Only); Complete Time: 19:58 05/03 18:50 Order name: XRAY Chest (1 view); Complete Time: 20:43 05/03 18:52 Order name: Urine Microscopic Only; Complete Time: 19:58 05/03 20:50 Interpretation: Reviewed. 05/03 18:54 Order name: D-Dimer; Complete Time: 19:58 05/03 19:09 Order name: ETOH Level; Complete Time: 19:58 05/03 19:13 Order name: Urine Dipstick--Ancillary (enter results) [facility] 05/03 19:14 Order name: Urine Dipstick-Ancillary; Complete Time: 19:58 [facility] 05/03 19:58 Interpretation: Normal except: UBLD 2+; UESTR 1+. 05/03 19:55 Order name: Urine Culture [facility] 05/03 18:50 Order name: EKG; Complete Time: 18:51 05/03 18:50 Order name: Cardiac monitoring; Complete Time: 19:05 05/03 18:50 Order name: EKG - Nurse/Tech; Complete Time: 19:05 05/03 18:50 Order name: IV Saline Lock; Complete Time: 19:05 05/03 18:50 Order name: Labs collected and sent; Complete Time: 19:06 05/03 18:50 Order name: O2 Per Protocol; Complete Time: 19:06 05/03 18:50 Order name: O2 Sat Monitoring; Complete Time: 19:06 05/03 18:52 Order name: Urine Dipstick-Ancillary (obtain specimen); Complete Time: 19:05 05/03 19:59 Order name: CT Head Brain wo Cont; Complete Time: 20:43 05/03 20:43 Interpretation: Report reviewed. 05/03 20:00 Order name: CT Chest For PE Angio; Complete Time: 20:43 cp Administered Medications: 20:56 Drug: NS 0.9% 1000 ml Route: IV; Rate: 1 bolus; Site: right forearm; aa1 Disposition: 05/03/19 21:47 Discharged to Home. Impression: Syncope and collapse. - Condition is Stable. - Discharge Instructions: Syncope, Aspirin and Your Heart. - Medication Reconciliation Form, Thank You Letter, Antibiotic Education, Prescription Opioid Use form. - Follow up: Josue Moseley MD; When: 1 - 2 days; Reason: syncope. - Problem is new. - Symptoms have improved. - Notes: take baby aspirin daily Signatures: Dispatcher [employer] EDMS Alexandra Ugalde, RN RN aa1 Jeb March PA PA cp Mary Lou Rivero, RN RN tw2 Corrections: (The following items were deleted from the chart) 22:08 21:47 05/03/2019 21:47 Discharged to Home. Impression: Syncope and collapse. Condition aa1 is Stable. Forms are Medication Reconciliation Form, Thank You Letter, Antibiotic Education, Prescription Opioid Use. Follow up: Josue Moseley; When: 1 - 2 days; Reason: syncope. Problem is new. Symptoms have improved. cp
[2019-05-03 23:11] VITALS: BP 125/84; TEMP 98.3; O2SAT 100
--- NOTE | 2019-05-04 07:34 | EKG ---
Test Date: 2019-05-03 Test Time: 19:02:35 Seismograph Supervisor: MILVIA MEASUREMENT RESULTS: Intervals: Rate: 86 DE: 148 QRSD: 86 QT: 386 QTc: 461 [place]: P: 72 DE: 148 QRS: 28 T: 72 INTERPRETIVE STATEMENTS: Normal sinus rhythm Possible Left atrial enlargement Nonspecific T wave abnormality Abnormal ECG Compared to ECG 03/15/2019 15:30:13 T-wave abnormality now present Electronically Signed On 05-04-19 07:32:51 CDT by Josue Moseley
== END 2019-05-03 22:08 | disposition home or self-care (01) ==
LOC: ER 18:01
DX: R55 Syncope and collapse (principal); F17.210 Nicotine dependence, cigarettes, uncomplicated; I10 Essential (primary) hypertension; E11.9 Type 2 diabetes mellitus without complications; Z88.1 Allergy status to other antibiotic agents; Z88.2 Allergy status to sulfonamides; Z85.038 Personal history of other malignant neoplasm of large intestine
CPT/HCPCS: 93005; 87088; 85025; 87086; 80048; 36415; 80320; 83735; 85610; 85379; 80076; 84484; 83880; 70450; 71275; 71045; 99285; Q9967; J7030; 81003; 81015

== ENCOUNTER 2019-10-11 09:27 | Observation (INO) | payer OTHER ==
--- NOTE | 2019-10-11 10:49 | RAD REPORT ---
EXAM DESCRIPTION: RAD - Chest Single View - 10/11/2019 10:44 am CLINICAL HISTORY: SOB Chest pain. COMPARISON: Chest Single View dated 05/03/2019; Chest Pa And Lat (2 Views) dated 03/15/2019; Chest Pa A nd Lat (2 Views) dated 11/18/2018; Abdomen Acute Series dated 02/02/2016; Chest For Pe Angio dated 019 FINDINGS: Portable technique limits examination quality. Emphysematous changes are present with rounded pulmonary mass in the right apex. Right-sided port cat heter its tip in the SVC. The heart is normal in size. No displaced fractures. IMPRESSION: No acute intrathoracic process suspected.
[2019-10-11 11:09] LABS: Absolute Lymphocytes (CBC) 0.3 K/uL (0.7-4.9); Basophils % 0.3 % (0-1.3); Hematocrit 41.5 % (36.0-45.0); Lymphocytes % 4.9 % (15.3-44.8); MPV 7.7 fL (7.6-11.3)
[2019-10-11 11:16] LABS: Protime INR 0.79
[2019-10-11 11:32] LABS: Albumin 3.4 g/dL (3.4-5.0); Bilirubin Direct 0.2 mg/dL (0-0.2); Bilirubin Total 0.5 mg/dL (0.2-1.0); Magnesium 1.8 mg/dL (1.8-2.4); Potassium 3.3 mmol/L (3.5-5.1); Protein, Total 6.9 g/dL (6.4-8.2); Troponin (Emerg Dept Use Only) 0.26 ng/mL (0.0-0.045)
--- NOTE | 2019-10-11 12:39 | EDPHYS ---
Physician Documentation [facility] Name: Lisa Acosta Age: 64 yrs Sex: Female : 1955 Arrival Date: 10/11/2019 Time: 09:30 Bed 14 Private MD: ED Physician Preet De Souza HPI: 10/11 10:31 This 64 yrs old Female presents to ER via Ambulatory with complaints of Skin snw Sore(s), Ankle Swelling. 10:31 Onset: The symptoms/episode began/occurred acutely. Associated signs and symptoms: The snw patient has no apparent associated signs or symptoms. It is unknown whether or not the patient has had similar symptoms in the past. The patient has not recently seen a physician. Historical: - Allergies: 10:07 Bactrim DS; ca1 10:07 Sulfa (Sulfonamide Antibiotics); ca1 - Home Meds: 10:07 metformin 500 mg Oral tab 2 times per day [Active]; aspirin 81 mg Oral chew 1 tab once ca1 daily [Active]; - PMHx: 10:07 36 radiations and 15 months of chemo after colon cancer.; colon cancer (February 10, 2016); ca1 Diabetes - NIDDM; Hypertension; - PSHx: 10:07 Hysterectomy; Hernia repair; ca1 - Immunization history:: Adult Immunizations up to date, Pneumococcal vaccine is up to date, Flu vaccine is not up to date. - Coronavirus screen:: The patient has NOT traveled to [place] in the past 14 days. The patient has NOT had contact with known/suspected case of Coronavirus?. - Social history:: Smoking status: Patient reports the use of cigarette tobacco products, smokes one pack cigarettes per day. - Ebola Screening: : Patient negative for fever greater than or equal to 101.5 degrees Fahrenheit, and additional compatible Ebola Virus Disease symptoms Patient denies exposure to infectious person Patient denies travel to an Ebola-affected area in the 21 days before illness onset No symptoms or risks identified at this time. ROS: 10:30 Constitutional: Negative for fever, chills, and weight loss, Eyes: Negative for injury, snw pain, redness, and discharge, ENT: Negative for injury, pain, and discharge, Neck: Negative for injury, pain, and swelling, Cardiovascular: Negative for chest pain, palpitations, and edema. 10:30 Abdomen/GI: Negative for abdominal pain, nausea, vomiting, diarrhea, and constipation, Back: Negative for injury and pain, : Negative for injury, bleeding, discharge, and swelling, MS/Extremity: Negative for injury and deformity, Neuro: Negative for headache, weakness, numbness, tingling, and seizure, Psych: Negative for depression, anxiety, suicide ideation, homicidal ideation, and hallucinations. 10:30 Respiratory: Positive for shortness of breath, on exertion. 10:30 Skin: Positive for rash. Exam: 10:29 Constitutional: This is a well developed, well nourished patient who is awake, alert, snw and in no acute distress. Head/Face: Normocephalic, atraumatic. Eyes: Pupils equal round and reactive to light, extra-ocular motions intact. Lids and lashes normal. Conjunctiva and sclera are non-icteric and not injected. Cornea within normal limits. Periorbital areas with no swelling, redness, or edema. ENT: Nares patent. No nasal discharge, no septal abnormalities noted. Tympanic membranes are normal and external auditory canals are clear. Oropharynx with no redness, swelling, or masses, exudates, or evidence of obstruction, uvula midline. Mucous membranes moist. Neck: Trachea midline, no thyromegaly or masses palpated, and no cervical lymphadenopathy. Supple, full range of motion without nuchal rigidity, or vertebral point tenderness. No Meningismus. Chest/axilla: Normal chest wall appearance and motion. Nontender with no deformity. No lesions are appreciated. 10:29 Respiratory: Lungs have equal breath sounds bilaterally, clear to auscultation and percussion. No rales, rhonchi or wheezes noted. No increased work of breathing, no retractions or nasal flaring. Abdomen/GI: Soft, non-tender, with normal bowel sounds. No distension or tympany. No guarding or rebound. No evidence of tenderness throughout. Back: No spinal tenderness. No costovertebral tenderness. Full range of motion. MS/ Extremity: Pulses equal, no cyanosis. Neurovascular intact. Full, normal range of motion. Neuro: Awake and alert, GCS 15, oriented to person, place, time, and situation. Cranial nerves II-XII grossly intact. Motor strength 5/5 in all extremities. Sensory grossly intact. Cerebellar exam normal. Normal gait. Psych: Awake, alert, with orientation to person, place and time. Behavior, mood, and affect are within normal limits. 10:29 Cardiovascular: Rate: normal, Rhythm: regular, Pulses: no pulse deficits are appreciated, Heart sounds: murmur, crescendo - decrescendo, grade 5 over 6, Edema: is not appreciated, JVD: is not appreciated. 10:29 Skin: Appearance: normal except for affected area, petechiae, and are scattered, of the extremities. 10:42 ECG was reviewed by the Attending Physician. snw Vital Signs: 10:07 BP 134 / 94; Pulse 93; Resp 16 S; Temp 97.8(O); Pulse Ox 100% on R/A; Weight 53.52 kg ca1 (R); Height 5 ft. 5 in. (165.10 cm) (R); 11:30 BP 120 / 86; Pulse 91; Resp 18; Pulse Ox 99% on R/A; ph 13:00 BP 122 / 96; Pulse 87; Resp 16; Pulse Ox 99% on R/A; ph 14:00 BP 136 / 108; Pulse 88; Resp 16; Pulse Ox 98% on R/A; ph 15:36 BP 123 / 85; Pulse 89; Resp 18; Pulse Ox 98% on R/A; ph 16:45 BP 124 / 93; Pulse 87; Resp 18; Temp 97.8(TE); Pulse Ox 99% on R/A; ph 10:07 Body Mass Index 19.64 (53.52 kg, 165.10 cm) ca1 MDM: 10:21 Patient medically screened. snw 12:26 Data reviewed: vital signs, nurses notes. Data interpreted: Pulse oximetry: on room air snw is 99 %. Interpretation: normal. Counseling: I had a detailed discussion with the patient and/or guardian regarding: the historical points, exam findings, and any diagnostic results supporting the discharge/admit diagnosis, lab results, radiology results, the need for further work-up and treatment in the hospital. Physician consultation: Danette Soto MD was contacted at 12:15, regarding admission, in the emergency department to see patient at 12:27. 10/11 10:28 Order name: Basic Metabolic Panel snw 10/11 10:28 Order name: CBC with Diff snw 10/11 10:28 Order name: LFT's snw 10/11 10:28 Order name: Magnesium 10/11 10:28 Order name: NT PRO-BNP 10/11 10:28 Order name: PT-INR 10/11 10:28 Order name: Troponin (emerg Dept Use Only) 10/11 10:28 Order name: [facility] 10/11 11:13 Order name: CBC with Automated Diff; Complete Time: 11:14 EDMS 10/11 11:18 Order name: Protime (+INR); Complete Time: 11:22 EDMS 10/11 11:29 Order name: Ammonia; Complete Time: 12:05 EDMS 10/11 11:34 Order name: Basic Metabolic Panel; Complete Time: 12:05 EDMS 10/11 11:34 Order name: Liver (Hepatic) Function; Complete Time: 12:05 EDMS 10/11 11:34 Order name: Troponin (Emerg Dept Use Only); Complete Time: 12:05 EDMS 10/11 10:28 Order name: XRAY Chest (1 view) 10/11 10:28 Order name: EKG; Complete Time: 10:29 w 10/11 10:28 Order name: Cardiac monitoring; Complete Time: 10:32 w 10/11 10:28 Order name: EKG - Nurse/Tech; Complete Time: 11:54 w 10/11 10:28 Order name: IV Saline Lock; Complete Time: 11:54 w 10/11 10:28 Order name: Labs collected and sent; Complete Time: 11:54 w 10/11 10:28 Order name: O2 Per Protocol; Complete Time: 11:54 w 10/11 10:28 Order name: O2 Sat Monitoring; Complete Time: 11:54 w 10/11 10:51 Order name: RAD; Complete Time: 11:05 EDMS 10/11 11:34 Order name: NT PRO-BNP; Complete Time: 12:05 EDMS 10/11 11:34 Order name: Magnesium; Complete Time: 12:05 EDMS 12 12:19 Order name: Urine Drug Screen 10/11 13:18 Order name: Urine Drug Screen; Complete Time: 13:23 EDMS 10/11 14:43 Order name: CT; Complete Time: 14:55 EDMS EC:42 Rate is 79 beats/min. Rhythm is regular. QRS [place] is Normal. SD interval is normal. QT snw interval is normal. Clinical impression: NSR w/ Non-specific ST/T Changes. Interpreted by me. Administered Medications: No medications were administered Disposition: 17:35 Co-signature as Attending Physician, Preet De Souza MD I agree with the assessment and kdr plan of care. Disposition: 10/11/19 12:38 Hospitalization ordered by Danette Soto for Inpatient Admission. Preliminary diagnosis are Chronic obstructive pulmonary disease with (acute) exacerbation, Elevated cardiac enzymes. - Bed requested for Telemetry/MedSurg (Inpatient). - Status is Inpatient Admission. ph - Condition is Stable. - Problem is an acute exacerbation. - Symptoms are unchanged. Signatures: Dispatcher [employer] Shruthi Loo RN RN Preet De Souza MD MD [facility] Elva Dolan, RETAIL MARKETING EXECUTIVE-C RETAIL MARKETING EXECUTIVE-Csnw Rina Browne RN RN Katelynn Chapman RN RN ca1 Corrections: (The following items were deleted from the chart) 15:44 12:38 Hospitalization Ordered by Danette Soto MD for Inpatient Admission. Preliminary dw diagnosis is Chronic obstructive pulmonary disease with (acute) exacerbation; Elevated cardiac enzymes. Bed requested for Telemetry/MedSurg (Inpatient). Status is Inpatient Admission. Condition is Stable. Problem is an acute exacerbation. Symptoms are unchanged. snw 17:04 15:44 10/11/2019 12:38 Hospitalization Ordered by Danette Soto MD for Inpatient Admission. ph Preliminary diagnosis is Chronic obstructive pulmonary disease with (acute) exacerbation; Elevated cardiac enzymes. Bed requested for Telemetry/MedSurg (Inpatient). Status is Inpatient Admission. Condition is Stable. Problem is an acute exacerbation. Symptoms are unchanged. dw
--- NOTE | 2019-10-11 12:39 | ER ---
Nurse's Notes [facility] Name: Lisa Acosta Age: 64 yrs Sex: Female : 1955 Arrival Date: 10/11/2019 Time: 09:30 Bed 14 Private MD: Diagnosis: Chronic obstructive pulmonary disease with (acute) exacerbation;Elevated cardiac enzymes Presentation: 10/11 10:03 Presenting complaint: Patient states: I woke up my ankles are swollen, and red spots on ca1 both legs. I have colon cancer which they say is dormant and I am also diabetic. I am not sure which one is causing all these. Denies fever. Reports feeling clammy, sick and a little SOB. Transition of care: patient was not received from another setting of care. Onset of symptoms was October 11, 2019. Risk Assessment: Do you want to hurt yourself or someone else? Patient reports no desire to harm self or others. Initial Sepsis Screen: Does the patient meet any 2 criteria? No. Patient's initial sepsis screen is negative. Does the patient have a suspected source of infection? No. Patient's initial sepsis screen is negative. Care prior to arrival: None. 10:03 Method Of Arrival: Ambulatory ca1 10:03 Acuity: KIRAN 3 ca1 Historical: - Allergies: 10:07 Bactrim DS; ca1 10:07 Sulfa (Sulfonamide Antibiotics); ca1 - Home Meds: 10:07 metformin 500 mg Oral tab 2 times per day [Active]; aspirin 81 mg Oral chew 1 tab once ca1 daily [Active]; - PMHx: 10:07 36 radiations and 15 months of chemo after colon cancer.; colon cancer (February 10, 2016); ca1 Diabetes - NIDDM; Hypertension; - PSHx: 10:07 Hysterectomy; Hernia repair; ca1 - Immunization history:: Adult Immunizations up to date, Pneumococcal vaccine is up to date, Flu vaccine is not up to date. - Coronavirus screen:: The patient has NOT traveled to [place] in the past 14 days. The patient has NOT had contact with known/suspected case of Coronavirus?. - Social history:: Smoking status: Patient reports the use of cigarette tobacco products, smokes one pack cigarettes per day. - Ebola Screening: : Patient negative for fever greater than or equal to 101.5 degrees Fahrenheit, and additional compatible Ebola Virus Disease symptoms Patient denies exposure to infectious person Patient denies travel to an Ebola-affected area in the 21 days before illness onset No symptoms or risks identified at this time. Screenin:07 Abuse screen: Denies threats or abuse. Denies injuries from another. Nutritional ph screening: No deficits noted. Tuberculosis screening: No symptoms or risk factors identified. Fall Risk None identified. Assessment: 11:00 General: Appears in no apparent distress. comfortable, Behavior is calm, cooperative, ph appropriate for age, Denies fever. Pain: Denies pain. Neuro: Level of Consciousness is awake, alert, obeys commands, Oriented to person, place, time, situation. Cardiovascular: Reports nausea, shortness of breath, Denies chest pain, Capillary refill < 3 seconds in bilateral fingers Patient's skin is warm and dry. Edema is 1+ to left foot and right foot. Respiratory: Airway is patent Respiratory effort is even, unlabored. GI: Reports Patient currently denies abdominal pain, diarrhea, vomiting. Derm: Skin is fragile, is thin, Skin is pink, warm \\T\\ dry. multiple abrasions noted to bilateral arms and legs, pt states, " I guess I scratch them at night.". Musculoskeletal: Circulation, motion, and sensation intact. Range of motion: intact in all extremities. 12:00 Reassessment: Patient appears in no apparent distress at this time. Patient and/or ph family updated on plan of care and expected duration. Pain level reassessed. Patient is alert, oriented x 3, equal unlabored respirations, skin warm/dry/pink. 13:00 Reassessment: Patient appears in no apparent distress at this time. Patient and/or ph family updated on plan of care and expected duration. Pain level reassessed. Patient is alert, oriented x 3, equal unlabored respirations, skin warm/dry/pink. 14:00 Reassessment: Patient appears in no apparent distress at this time. Patient and/or ph family updated on plan of care and expected duration. Pain level reassessed. Patient is alert, oriented x 3, equal unlabored respirations, skin warm/dry/pink. 15:00 Reassessment: Patient appears in no apparent distress at this time. Patient and/or ph family updated on plan of care and expected duration. Pain level reassessed. Patient is alert, oriented x 3, equal unlabored respirations, skin warm/dry/pink. 16:00 Reassessment: Patient appears in no apparent distress at this time. Patient and/or ph family updated on plan of care and expected duration. Pain level reassessed. Patient is alert, oriented x 3, equal unlabored respirations, skin warm/dry/pink. Vital Signs: 10:07 BP 134 / 94; Pulse 93; Resp 16 S; Temp 97.8(O); Pulse Ox 100% on R/A; Weight 53.52 kg ca1 (R); Height 5 ft. 5 in. (165.10 cm) (R); 11:30 BP 120 / 86; Pulse 91; Resp 18; Pulse Ox 99% on R/A; ph 13:00 BP 122 / 96; Pulse 87; Resp 16; Pulse Ox 99% on R/A; ph 14:00 BP 136 / 108; Pulse 88; Resp 16; Pulse Ox 98% on R/A; ph 15:36 BP 123 / 85; Pulse 89; Resp 18; Pulse Ox 98% on R/A; ph 16:45 BP 124 / 93; Pulse 87; Resp 18; Temp 97.8(TE); Pulse Ox 99% on R/A; ph 10:07 Body Mass Index 19.64 (53.52 kg, 165.10 cm) ca1 ED Course: 09:30 Patient arrived in ED. ag5 10:06 Triage completed. ca1 10:07 Arm band placed on right wrist. ca1 10:21 Rina Browne, TANI is Primary Nurse. ph 10:21 Elva Dolan FNP-C is PHCP. snw 10:21 Preet De Souza MD is Attending Physician. snw 10:30 Patient has correct armband on for positive identification. Placed in gown. Bed in low ph position. Call light in reach. Side rails up X 1. Pulse ox on. NIBP on. Door closed. Noise minimized. Warm blanket given. 11:15 Inserted saline lock: 22 gauge in right antecubital area, using aseptic technique. ph 12:37 Danette Soto MD is Hospitalizing Provider. snw 16:47 No provider procedures requiring assistance completed. Patient admitted, IV remains in ph place. 16:49 D Dimer drawn by me and sent to lab. dh3 Administered Medications: No medications were administered Outcome: 12:38 Decision to Hospitalize by Provider. snw 16:57 Admitted to Tele accompanied by tech, via wheelchair, room 212, with chart. ph 16:57 Condition: stable 17:04 Patient left the ED. ph Signatures: Elva Dolan, SENIOR TECHNICAL EDITOR-C SENIOR TECHNICAL EDITOR-Csnw Rina Browne, RN RN [facility] 3 Katelynn Chapman RN RN [facility] Grazyna Jones [facility]
[2019-10-11 13:17] LABS: Barbiturates NEGATIVE (NEGATIVE); Benzodiazepines NEGATIVE (NEGATIVE); Cocaine NEGATIVE (NEGATIVE); METHAMPHETAM NEGATIVE (NEGATIVE); Methadone NEGATIVE (NEGATIVE); Opiates NEGATIVE (NEGATIVE); Phencyclidine NEGATIVE (NEGATIVE); THC Cannibis NEGATIVE (NEGATIVE)
[2019-10-11] MEDS ORDERED: ONDANSETRON 4 MG/2 ML VIAL IV PRN ×2 (13:29→17:43)
[2019-10-11] MEDS ORDERED: ACETAMINOPHEN 500 MG TAB PO PRN ×2 (13:29→17:43)
[2019-10-11] MEDS ORDERED: ALPRAZOLAM 0.25 MG TABLET PO PRN (13:29)
[2019-10-11] MEDS ORDERED: DIPHENHYDRAMINE 25 MG TAB/CAP PO PRN (13:34)
[2019-10-11] MEDS ORDERED: Levofloxacin500mg IV 500 MG/100 ML BAG IV SCH ×2 (14:00→18:30)
[2019-10-11] MEDS ORDERED: IPRATROPIUM BROM 0.5MG/2.5ML NEB SCH (14:00)
[2019-10-11] MEDS ORDERED: ALBUTEROL 2.5 MG/3 ML NEB SOL NEB SCH (14:00)
--- NOTE | 2019-10-11 14:37 | RAD REPORT ---
EXAM DESCRIPTION: CT - Chest Angio - 10/11/2019 2:11 pm CLINICAL HISTORY: SOB COMPARISON: Chest For Pe Angio dated 05/03/2019; Chest Single View dated 10/11/2019 TECHNIQUE: Dynamically enhanced 3 mm thick images of the chest were obtained during administration o f approximately 150mL Isovue 370 IV contrast. Coronal and oblique MIP reconstruction images were gene rated and reviewed. Exam utilizes a protocol to evaluate the pulmonary arterial tree. All CT scans are performed using dose optimization technique as appropriate and may include automated exposure control or mA/KV adjustment according to patient size. FINDINGS: No pulmonary emboli are identified. The aorta as imaged shows no acute or suspicious finding. No pericardial thickening or effusion. In the anterior right upper lobe at the aortic arch level lobulated irregular mass is identified. Mas ses extended to the pleural surface and possibly the chest wall. Mass is approximately 3.6 cm AP x 3. 7 cm TR. This is an increase in size from the April 2019 CT chest. No other worrisome mass. No pleural effusion or pleural thickening. Bilateral mild bronchial wall thi ckening is present. Interstitial pattern is not outside of normal range. No endobronchial lesions see n. No mediastinal or hilar suspicious masses. No chest wall masses or abnormal axillary lymphadenopathy. IMPRESSION: No pulmonary emboli identified. Right upper lobe mass has enlarged since the April 2019 study now measuring 3.6 cm AP x 3.7 cm TR . Mass extends to the lateral pleura and may extend into the chest wall. The chest wall and the mass are isodense. No other mass lesion or abnormal mediastinal process. Bilateral bronchial wall thickening is present and may reflect bronchitis or other viral type infiltr ate.
[2019-10-11] MEDS ORDERED: IPRATROPIUM BROM 0.5MG/2.5ML ONE (14:39)
[2019-10-11] MEDS ORDERED: ALBUTEROL 2.5 MG/3 ML NEB SOL ONE (14:39)
[2019-10-11] MEDS ORDERED: FUROSEMIDE 40 MG/4 ML VIAL IV ONE ×2 (15:00→19:00)
[2019-10-11] MEDS ORDERED: INSULIN -REGULAR HUMAN 50 UNIT/0.5 ML ML SQ SCH (16:30)
--- NOTE | 2019-10-11 17:59 | EKG ---
Test Date: 2019-10-11 Test Time: 10:35:24 Electrostatic Paint Operator: ERICK MEASUREMENT RESULTS: Intervals: Rate: 79 CA: 174 QRSD: 100 QT: 414 QTc: 474 [place]: P: 59 CA: 174 QRS: 13 T: 48 INTERPRETIVE STATEMENTS: Normal sinus rhythm Possible Left atrial enlargement Cannot rule out Anterior infarct, age undetermined Abnormal ECG Compared to ECG 05/03/2019 19:02:35 questionable myocardial infarct finding now present T-wave abnormality no longer present Electronically Signed On 10-11-19 17:58:33 INDUSTRIAL RELATIONS ANALYST by Josue Moseley
[2019-10-11 19:24] LABS: Urine Appearance CLEAR; Urine Bilirubin NEGATIVE (NEG); Urine Blood NEGATIVE (NEG); Urine Color YELLOW; Urine Glucose NEGATIVE (NEG); Urine Protein NEGATIVE (NEG); Urine Urobilinogen 0.2 mg/dL (0.2-1.0); Urine pH 7.5 (5.0-7.0)
[2019-10-11 19:25] LABS: Urine Microscopic Reflex NO UMIC
[2019-10-11] MEDS ORDERED: POTASSIUM CL SA 10 MEQ TAB PO ONE (19:33)
[2019-10-11] MEDS: IPRATROPIUM BROM 0.5MG/2.5ML NEB SCH (19:52)
[2019-10-11] MEDS: ALBUTEROL 2.5 MG/3 ML NEB SOL NEB SCH (19:52)
[2019-10-11 20:07] VITALS: BMI 19.6
[2019-10-11] MEDS: ALPRAZOLAM 0.25 MG TABLET PO PRN (20:49)
[2019-10-11] MEDS: DIPHENHYDRAMINE 25 MG TAB/CAP PO PRN (20:49)
[2019-10-11] MEDS: INSULIN -REGULAR HUMAN 50 UNIT/0.5 ML ML SQ SCH (20:50)
--- NOTE | 2019-10-12 00:03 | HP ---
Date of Admission: 10/11/2019 Chief Complaint: Ankle edema and dyspnea. History Of Present Illness: This patient is a 64-year-old female who presented for ankle swelling and shortness of breath. She has a history of type 2 diabetes, colon cancer, tobacco abuse, and asthma. This patient was diagnosed of colon cancer 1-1/2 years ago, for which she underwent chemotherapy. She did not follow her oncologist for quite a while. She did not receive chemotherapy for quite a few months. Patient has been living by herself. She reported occasional marijuana use. Patient started to experience ankle swelling for last few days. This is associated with some mild pain and tingling. She also reported some exertional dyspnea. Patient reported cough with yellowish sputum for last few days. She also experienced mild fever and sweating. There is no chest pain. No nausea or vomiting. She has chronic diarrhea from colon cancer. She does not have dizziness or syncope. No dysuria or hematuria. In the ED, her vitals are stable. Blood pressure 134/94 , pulse 93, respiratory rate 16, temperature 97.8, oxygen saturation 100% on room air. WBC 6.6, hemoglobin 13.9, sodium 134, and potassium 3.3. Troponin 0.26. Chest x-ray unremarkable. Chest x-ray does not demonstrate acute event. She was admitted for further management. Home Medication: Please see home medication list. Past Medical History: 1. Colon cancer. 2. Type 2 diabetes. 3. Tobacco abuse. 4. Asthma. 5. Marijuana abuse. Surgical History: MediPort placement. Review of Systems: Eleven-point system unremarkable, except mentioned in HPI. Family History: Patient has a family history of cancer. Social History: Patient has been living by herself. She has a history of tobacco abuse and marijuana abuse. She is not alcoholic. Physical Examination: General: Patient awake, alert, in no acute distress. Oriented x3. HEENT: Normocephalic, atraumatic. PERRLA. EOMI. No JVD. Neck: Supple. Chest: Decreased breath sounds. No respiratory distress. No rales or crackles. Heart: Normal S1, S2. Regular rhythm and rate. No murmur. Abdomen: Soft, nontender. Bowel sounds present. Extremities: Trace edema on bilateral ankle. No cyanosis. Neuro: Patient awake and alert, oriented x3. Nonfocal. Skin: Patient has some reddish rashes on bilateral upper and lower extremities with itching. There is some skin lesion likely from scratch. Diagnostic Data: WBC 6.6, hemoglobin 13.9, platelet 166. Sodium 134, potassium 3.3, bicarb 29, glucose 189, magnesium 1.8, AST 119, ALT is 73. Ammonia level less than 10. Troponin 0.26. Assessment And Plan: 1. Dyspnea and lower extremity edema. The etiology is unknown. I will give patient 1 dose of Lasix 40 mg. She has a history of tobacco. Physical examination reviewed. Bilateral decreased breath sounds. I believe she has underlying chronic obstructive pulmonary disease. I started DuoNeb nebulization. Echo was ordered. 2. Elevated troponin. Troponin 0.26. We will follow up. Echo was ordered. May need home stereo equipment installer consult. I started aspirin. 3. Possible bronchopneumonia. Patient reported cough with yellowish sputum. She also complains some fever. CXR is unremakable. I started IV Levaquin empirically. We will screen influenza. 4. Skin rashes. This patient experienced skin rashes on upper and lower extremities, which is itching. I will give Benadryl as needed. I suspect that this is due to allergy versus hygiene issue. 5. Diabetes. We started sliding scale. We will check A1c in the morning. We will review home diabetic medication. 6. Tobacco abuse. I advised her to stop. 7. Possible chronic obstructive pulmonary disease. Patient is never diagnosed of chronic obstructive pulmonary disease. She has decreased breath sound. Highly suspect chronic obstructive pulmonary disease, on DuoNeb nebulization. 8. Colon cancer. This patient has been following oncologist. Instructed her to follow oncologist closely. Further plan will be based on her condition. QT/MODL Voice ID: [id number] MTDD
[2019-10-12] MEDS: IPRATROPIUM BROM 0.5MG/2.5ML NEB SCH ×4 (02:05→20:25)
[2019-10-12] MEDS: ALBUTEROL 2.5 MG/3 ML NEB SOL NEB SCH ×2 (02:05→08:50)
[2019-10-12 05:51] LABS: Absolute Lymphocytes (CBC) 0.5 K/uL (0.7-4.9); Basophils % 0.1 % (0-1.3); Hematocrit 34.8 % (36.0-45.0); Lymphocytes % 10.8 % (15.3-44.8); MPV 8.3 fL (7.6-11.3); RBC Red Blood Cell Count 3.34 M/uL (3.86-4.86)
[2019-10-12 06:44] LABS: ALT/SGPT 50 U/L (12-78); AST/SGOT 46 U/L (15-37); Albumin 2.7 g/dL (3.4-5.0); Alkaline Phosphatase 134 U/L (45-117); BUN Blood Urea Nitrogen 5 mg/dL (7-18); Bicarbonate 31 mmol/L (21-32); Bilirubin Total 0.4 mg/dL (0.2-1.0); Glucose Level 239 mg/dL (74-106); HDL Cholesterol 81 mg/dL (40-60); LDL Cholesterol, Calculated 15 (<130); Magnesium 1.9 mg/dL (1.8-2.4); Phosphorus 3.1 mg/dL (2.5-4.9); Potassium 3.4 mmol/L (3.5-5.1); Protein, Total 5.8 g/dL (6.4-8.2); Sodium Level 138 mmol/L (136-145)
[2019-10-12] MEDS: INSULIN -REGULAR HUMAN 50 UNIT/0.5 ML ML SQ SCH ×4 (07:30→21:00)
[2019-10-12] MEDS ORDERED: POTASSIUM 25 MEQ EFFERV TAB PO ONE (09:00)
[2019-10-12] MEDS ORDERED: ENOXAPARIN 40 MG/0.4 ML SQ SCH ×2 (09:00)
[2019-10-12] MEDS ORDERED: LOPERAMIDE HCL 2 MG CAPSULE PO PRN (09:26)
--- NOTE | 2019-10-12 09:36 | P.PN ---
Subjective Date of Service: 10/12/19 Chief Complaint: ankle edema and SOB Subjective: No new changes, Doing well Review of Systems General: Weakness Eyes: Unremarkable ENT: Unremarkable Respiratory: Cough, Shortness of Breath, SOB with Excertion Cardiovascular: Edema Gastrointestinal: Diarrhea Genitourinary: Unremarkable Musculoskeletal: Pedal edema Integumentary: Rash, Lesions Neurological: Unremarkable Physical Examination - Vital Signs Temperature: 98.4 F Blood Pressure: 116/79 Pulse: 81 Respirations: 17 Pulse Ox (%): 98 - Physical Exam General: Alert, In no apparent distress, Oriented x3, Cooperative HEENT: Atraumatic, Normocephalic, PERRLA, Mucous membr. moist/pink Neck: Supple, 2+ carotid pulse no bruit, JVD not distended, No LAD Respiratory: Normal air movement, Diminished Cardiovascular: No edema, Normal pulses, Regular rate/rhythm, Normal S1 S2 Gastrointestinal: Normal bowel sounds, Soft and benign, Non-distended, No ascites, No tenderness Musculoskeletal: No clubbing, No swelling Integumentary: Rash(es), Skin breakdown, Skin lesion, Other (skin lesions on both b/l upper and lower ext. ) Neurological: Normal gait, Normal speech, Normal strength at 5/5 x4 extr, Normal tone - Studies Laboratory Data (last 24 hrs) 10/11/19 10:55: PT 9.4 L, INR 0.79 10/11/19 10:55: WBC 6.6, Hgb 13.9, Hct 41.5, Plt Count 166 10/11/19 10:55: Sodium 134 L, Potassium 3.3 L, BUN 5 L, Creatinine 0.67, Glucose 189 H, Magnesium 1.8 D, Total Bilirubin 0.5, AST 119 H, ALT 73, Alkaline Phosphatase 169 H Assessment And Plan - Plan Assessment And Plan: 1. Dyspnea and lower extremity edema. The etiology is unknown. Improving after 1 dose of Lasix 40 mg. She has a history of tobacco. Physical examination reviewed. Bilateral decreased breath sounds. I believe she has underlying chronic obstructive pulmonary disease. I started DuoNeb nebulization. Echo was ordered. 2. Elevated troponin. Troponin 0.26->0.18->0.17. Echo was ordered. I started aspirin. Cap Blocker was consulted and planned for stress test. 3. Possible bronchopneumonia. Patient reported cough with yellowish sputum. She also complains some fever. CXR is unremakable. I started IV Levaquin empirically. Influenza screen negative. 4. Right upper lobe mass. It has enlarged since April 2019. It is measuring 3.6 cm x 3.7 cm. She has been followed by oncologist at [place] with Dr. Bravo. I will consult scientist engineer for 2nd opinion. 5 Skin rashes. This patient experienced skin rashes on upper and lower extremities, which is itching. I will give Benadryl as needed. I suspect that this is due to allergy versus hygiene issue. 5. Diabetes. We started sliding scale. Hemoglobin A1c 5.7. Resumed home metformin. 6. Tobacco abuse. I advised her to stop. 7. Possible chronic obstructive pulmonary disease. Patient is never diagnosed of chronic obstructive pulmonary disease. She has decreased breath sound. Highly suspect chronic obstructive pulmonary disease, on DuoNeb nebulization. 8. Colon cancer. This patient has not been compliant to follow her oncologist. Instructed her to follow Dr. Bravo. Further plan will be based on her condition. Discharge Plan: Home Plan to discharge in: 48 Hours - Code Status/Comfort Care Code Status Assessed: Yes Code Status: Full Code Time Spent Managing PTS Care (In Minutes): 30
[2019-10-12] MEDS ORDERED: REGADENOSON 0.4 MG/5 ML SYR IV ONE (09:53)
--- NOTE | 2019-10-12 12:29 | ECHO ---
HEIGHT: 5 ft 5 in WEIGHT: 118 lb 0 oz DATE OF STUDY: 10/12/[address]: Danette Soto MD 2-DIMENSIONAL: YES M.MODE: YES DOPPLER: YES COLOR FLOW: YES TDS: PORTABLE: DEFINITY: BUBBLE STUDY: DIAGNOSIS: SHORTNESS OF BREATH CARDIAC HISTORY: CATHERIZATION: NO SURGERY: NO PROSTHETIC VALVE: NO PACEMAKER: NO MEASUREMENTS (cm) DIASTOLIC (NORMALS) SYSTOLIC (NORMALS) IVSd 1.0 (0.6-1.2) LA Diam 3.3 (1.9-4.0) LVEF 58% LVIDd 4.4 (3.5-5.7) LVIDs 3.1 (2.0-3.5) %FS 30% LVPWd 0.9 (0.6-1.2) Ao Diam 2.6 (2.0-3.7) 2 DIMENSIONAL ASSESSMENT: RIGHT ATRIUM: NORMAL LEFT ATRIUM: NORMAL RIGHT VENTRICLE: NORMAL LEFT VENTRICLE: NORMAL TRICUSPID VALVE: NORMAL MITRAL VALVE: NORMAL PULMONIC VALVE: NORMAL AORTIC VALVE: STENOSIS PERICARDIAL EFFUSION: NONE AORTIC ROOT: NORMAL LEFT VENTRICULAR WALL MOTION: NORMAL DOPPLER/COLOR FLOW: SEVERE AORTIC STENOSIS. PEAK GRADIENT 80 mmHg. MEAN GRADIENT 49 mmHg. ESTIMATED AORTIC VALVE AREA 0.6 CENTIMETERS SQUARED. MILD TRICUSPID REGURGITATION. NORMAL RIGHT VENTRICULAR SYSTOLIC PRESSURE. NO AORTIC REGURGITATION. COMMENTS: NORMAL LEFT VENTRICULAR EJECTION FRACTION. SEVERE AORTIC SCLEROSIS. MILD TRICUSPID REGURGITATION. TECHNOLOGIST: CINDY CLANCY
--- NOTE | 2019-10-12 12:41 | RAD REPORT ---
EXAM DESCRIPTION: NM - Rest Stress Cardiac Imaging - 10/12/2019 12:33 pm CLINICAL HISTORY: CP Chest pain. COMPARISON: No comparisons TECHNIQUE: The patient was administered approximately 10mCi of Tc 99m Sestamibi prior to resting SPE CT imaging of the heart. The patient was then administered approximately 30 mCi of Tc 99m Sestamibi f ollowing exercise or pharmacologic stress. Multiplanar SPECT images were reviewed. FINDINGS: No stress induced ischemic defect is seen to suggest stress induced ischemia. Small fixed defect is seen in the LV apex on rest and stress compatible with scar tissue from prior infarct. The end diastolic volume is 99 ml, the end systolic volume is 59 ml, and the ejection fraction is 41 %. IMPRESSION: No stress induced ischemia. Fixed defect in the region of the LV apex is likely related to scar tissue from prior infarction.
--- NOTE | 2019-10-12 12:42 | TREADPHA ---
DX: CHEST PAIN Date of Study: 10/12/2019 Ht: 5 5 Wt: 118 lb 0 oz Consulting Physician: CHIO MEDICATIONS: TYLENOL, XANAX, PROVENTIL, LOVENOX, NOVOLIN-R, LEVAQUIN, METFORMIN HISTORY: 64 YEAR OLD FEMALE WITH HISTORY OF CANCER, NON-INSULIN DEPENDENT DIABETES MELLITUS, POSITIVE SMOKER. ADMITTED FOR CHEST PAIN. DENIES PAIN AT TIME OF TESTING. PHYSICIAL EXAMINATION: RESTING B.P.: 118/79 RESTING H.R.: 75 RESTING EKG: NORMAL PROTOCOL: PHARMACOLOGIC EXERCISE TIME: 3:30 B.P. AT PEAK STRESS: 120/82 IMPRESSION: LEXISCAN STRESS TEST PERFORMED. CARDIOLITE INJECTED PER PROTOCOL. NO SUPRAVENTRICULAR TACHCARDIA, NO VENTRICULAR TACHYCARDIA, NO ARRHYTHMIA NOTED. PATIENT DENIED CHEST PAIN. TOLERATED WELL. SEE NUCLEAR MEDICINE REPORT. NON-DIAGNOSTIC ELECTROCARDIOGRAM WITH LEXISCAN STRESS.
--- NOTE | 2019-10-12 12:54 | P.CNS ---
Date of Consult: 10/12/19 Reason for Consult: Right upper lobe lung mass Chief Complaint: Right upper lobe lung mass History of Present Illness: Patient is 64 years of age evaluated my me for a right upper lobe lung mass. She complains of some spots all over body swelling of her lower extremities heavy smoker denies any dyspnea cough sputum hemoptysis chest pain as found to have a large right upper lobe lung mass previously treated for colon cancer Allergies Sulfa (Sulfonamide Antibiotics) Allergy (Verified 10/11/19 17:27) Unknown Bactrim DS Allergy (Uncoded 10/11/19 17:27) Unknown Home Medications: Metformin HCl [Glucophage*] 500 mg PO BID 03/15/18 Loperamide HCl [Anti-Diarrheal] 2 mg PO BID PRN 10/12/19 - Past Medical/Surgical History Diabetic: Yes -: DM-2 -: HTN -: COLON CANCER -: Hernia Repair -: Hysterectomy - Family History Father Medical History: Heart disease, Lung disease, Diabetes Mother Medical History: Diabetes Brother Medical History: Diabetes Notes: IDDM Sister Medical History: Blood disorders - Social History Smoking Status: Current every day smoker Alcohol use: No CD- Drugs: No Caffeine use: Yes Place of Residence: Home Review of Systems 10-point ROS is otherwise unremarkable Physical Examination Temp Pulse Resp BP Pulse Ox 98.4 F 81 17 116/79 98 10/12/19 09:41 10/12/19 09:41 10/12/19 09:41 10/12/19 09:41 10/12/19 09:41 General: Alert, In no apparent distress, Oriented x3 Respiratory: Clear to auscultation bilaterally Cardiovascular: No edema, Normal S1 S2, Systolic murmur Gastrointestinal: Normal bowel sounds, Soft and benign - Problems (1) Lung mass Current Visit: Yes Status: Acute Plan: Patient is 64 years of age evaluated by me for a right upper lobe lung mass heavy smoker was likely she has lung cancer the schedule for a fine-needle biopsy of her right upper lobe advice to quit smoking change to inhaled bronchodilator which she could go home with Dc antibiotics and nebulizer she does not have any shortness of breath vital signs are stable discharged home off to the biopsy to follow with me in 1 or 2 weeks she will need an outpatient workup which includes PFTs and a PET scan I have also order an MRI of the brain with contrast in addition to spirometry
--- NOTE | 2019-10-12 13:31 | CON ---
History Of Present Illness: Mrs. Acosta came to the hospital mainly because she was noticing a lot of spots on her skin. Subcutaneous hemorrhages, some of them burst open and she bleeds a little bit. She has noticed them for a few days. She was not having chest pain. Troponins were ordered and the troponins are normal. There were 3 of them, they are all close to the same 0.26, 0.18, 0.17. Patient has no previous history of myocardial infarction or stroke. She has diabetes. She uses tobacco regularly. She has a history of colon cancer. Apparently, there is some question of wide metastasis from the colon cancer. I am not sure about that. I do not think her oncologists are sure yet. Tests are still pending. Physical Examination: Vital Signs: The patient is 5 feet 5, 118 pounds. General: Underweight, alert, oriented, pleasant, not in distress. She has diffuse subcutaneous hemorrhages that I would not call a petechiae. They are really all over arms, shoulders, legs, back, none on the face. Lungs: Reveal bronchial breath sounds. No wheezes. Heart: Reveals a regular rate and rhythm. Systolic murmur consistent with aortic stenosis. Abdomen: Soft. Extremities: No edema, cyanosis, clubbing. Distal pulses are very diminished. I can barely feel radial and pedal pulses. Impression: The patient has coronary heart disease and aortic stenosis Most likely, she seems to have some kind of problem with her clotting, although the clotting numbers look good. Platelet count is slightly low at 128,000. I am worried about paraneoplastic syndrome causing the problem with her clotting. I do not want to do a cardiac cath until we have a fence supervisor to evaluate her for what looks to me like a clotting disorder. We will do a pharmacologic stress test and echo today to see what we learn about her and try and understand the situation with her colon cancer and possible lung metastasis or new primary lung cancer. She would be an unlikely candidate for doing a coronary intervention, or AVR or TAVR. PRINCE/LINDA Voice ID: [id number] Report ID: [id number] DERIK
--- NOTE | 2019-10-12 16:12 | RAD REPORT ---
EXAM DESCRIPTION: MRI - Brain W/Wo Cont - 10/12/2019 3:54 pm CLINICAL HISTORY: Lung mass, history of colon cancer, lightheadedness COMPARISON: None. TECHNIQUE: Sagittal and axial T1-weighted images were obtained. Axial PD/heavily T2-weighted and T2- FLAIR images were obtained along with axial DWI/ADC mapping sequences. Coronal heavily T2 weighted s equence obtained. Axial and coronal post-contrast T1-weighted images were also obtained. A 12 ml Mul tihance contrast following utilized. FINDINGS: No intracranial hemorrhage, mass or acute infarction. There is no edema or shift of midli ne structures. No extra-axial fluid collections. Regalado-matter/white matter junction is preserved. Sig nal voids are seen as a normal finding in the major intracranial vessels. No significant atrophy nicole ges are identifiable. Ventricles are normal. T2/IR hyperintensities are present in the cerebral white matter. Larger areas in the right parietal lobe have corresponding hypointense T1 signal. There is n o associated edema. These are typical for chronic ischemic change. Postcontrast imaging shows no associated enhancement with the white matter signal abnormalities. Ther e are no brain parenchymal or dural enhancement abnormality seen. No sella or supra sella abnormality. No globe or orbital content abnormality. Mastoid air cells and paranasal sinuses are clear. IMPRESSION: Chronic ischemic changes are seen in the cerebral white matter. No intracranial metastatic disease identified. No acute intracranial process.
[2019-10-12] MEDS: METFORMIN HCL 500 MG TAB PO SCH (16:57)
[2019-10-12] MEDS: DULERA 200/5 (MOMETASONE/FORMOTEROL) INHALER IH SCH (21:23)
[2019-10-12] MEDS: ALPRAZOLAM 0.25 MG TABLET PO PRN (21:26)
[2019-10-13] MEDS: IPRATROPIUM BROM 0.5MG/2.5ML NEB SCH ×4 (02:00→19:50)
[2019-10-13 04:35] LABS: Absolute Lymphocytes (CBC) 0.4 K/uL (0.7-4.9); Basophils % 0.3 % (0-1.3); Lymphocytes % 12.6 % (15.3-44.8); MPV 7.5 fL (7.6-11.3); RBC Red Blood Cell Count 3.32 M/uL (3.86-4.86)
[2019-10-13 04:56] LABS: BUN Blood Urea Nitrogen 5 mg/dL (7-18); Bicarbonate 30 mmol/L (21-32); Glucose Level 121 mg/dL (74-106); Potassium 3.8 mmol/L (3.5-5.1); Sodium Level 142 mmol/L (136-145)
[2019-10-13] MEDS: INSULIN -REGULAR HUMAN 50 UNIT/0.5 ML ML SQ SCH ×4 (07:30→20:15)
[2019-10-13] MEDS: METFORMIN HCL 500 MG TAB PO SCH ×2 (08:00→16:33)
[2019-10-13] MEDS: DULERA 200/5 (MOMETASONE/FORMOTEROL) INHALER IH SCH ×2 (08:59→20:16)
[2019-10-13] MEDS ORDERED: POTASSIUM CL SA 10 MEQ TAB PO ONE (09:00)
[2019-10-13] MEDS ORDERED: NA CHLORIDE 0.9% 1,000 ML IV SCH (10:00)
[2019-10-13] MEDS ORDERED: FENTANYL CITR 100 MCG/2 ML ONE (10:41)
[2019-10-13] MEDS ORDERED: MIDAZOLAM HCL 2 MG/2 ML INJ ONE (10:41)
[2019-10-13] MEDS ORDERED: FLUMAZENIL 0.1 MG/ML (5 mL VIAL) IV ONE (10:42)
[2019-10-13] MEDS ORDERED: NA CHLORIDE 0.9% 0 ML ONE (10:42)
[2019-10-13] MEDS ORDERED: NALOXONE 0.4 MG/ML VIAL ONE (10:42)
--- NOTE | 2019-10-13 12:12 | RAD REPORT ---
EXAM DESCRIPTION: CT - Lung Biopsy Perc w/CT - 10/13/2019 11:57 am CLINICAL HISTORY: RUL lung mass, approximately 3.5 cm in size COMPARISON: CT chest study October 11 TECHNIQUE: Patient presents for image guided biopsy of a 3.5 centimeter mass in the anterior right u pper lobe. IV access and physiologic monitors were already in place. The procedure, risks and alterna tives to the procedure were discussed with the patient in detail. After answering all questions both oral and written consent were obtained. A time-out procedure was performed. PT/ PT/INR studies are wi thin normal range. Platelet count within acceptable limits. Patient was adequately off Lovenox therap y. Preliminary imaging again identified the mass. Access site was selected superior to the patient's rig ht side Port-A-Cath. The patient was pre-medicated with Versed at 2.0 milligrams IV and fentanyl 100 micrograms IV. Upper anterior right chest was prepped and draped in the usual sterile fashion. Skin and deeper tissu es were anesthetized with 1% lidocaine. A 16 gauge introducer needle was advanced into the mass using CT guidance. A 17 gauge Qvolve biopsy needle was advanced through the introducer needle into the mass. A total of 3 core biopsies were obtained. All obtained material was given to pathology for cytology/ histology assessment. At the conclusion of the procedure the needle was withdrawn and hemostasis obt ained at the puncture site. A sterile bandage was placed. Post biopsy imaging showed no pulmonary hemorrhage. There is a very minimal 1% pneumothorax. Patient was in no distress. Vital signs were stable throughout the procedure. Conscious sedation time was 30 minutes. The patient was returned to the floor for continued care. Non re- breather mass was to be placed. IMPRESSION: CT-guided biopsy was performed of the previously detailed right upper lobe mass. All obt ained material was given to pathology for cytology/ histology assessment. Patient has a minimal 1% pneumothorax with no pulmonary hemorrhage. Patient was returned to the floor for continued care. Vital signs were stable throughout the procedure.
--- NOTE | 2019-10-13 15:25 | P.PN ---
Subjective Date of Service: 10/13/19 Chief Complaint: Right upper lobe lung mass Subjective: No new changes, Doing well Review of Systems General: Unremarkable Eyes: Unremarkable ENT: Unremarkable Respiratory: Unremarkable Cardiovascular: Unremarkable Gastrointestinal: Unremarkable Genitourinary: Unremarkable Musculoskeletal: Unremarkable Integumentary: Unremarkable Neurological: Unremarkable Physical Examination - Vital Signs Temperature: 97.8 F Blood Pressure: 115/55 Pulse: 64 Respirations: 17 Pulse Ox (%): 100 - Physical Exam General: Alert, In no apparent distress, Oriented x3, Cachectic HEENT: Atraumatic, Normocephalic, PERRLA, Mucous membr. moist/pink Neck: Supple, 2+ carotid pulse no bruit, JVD not distended Respiratory: Clear to auscultation bilaterally, Normal air movement Cardiovascular: No edema, Normal pulses, Regular rate/rhythm, Normal S1 S2, Abnormal S3 Gastrointestinal: Normal bowel sounds, Soft and benign, Non-distended, No ascites Musculoskeletal: No clubbing, No swelling, No contractures, No erythema, No tenderness, No warmth Integumentary: No rashes, No breakdown, No significant lesion, No tenderness/ swelling Neurological: Normal gait, Normal speech, Normal strength at 5/5 x4 extr, Normal tone, Sensation intact, Cranial nerves 3-12 intact, Normal reflexes 2+ - Studies Medications List Reviewed: Yes Assessment And Plan - Plan Assessment And Plan: 10/13/19: Patient is feeling much better. Less short of breath. She underwent CT-guided lung mass biopsy. Chest x-ray was repeated for rule-out complications. Patient can be discharged to home in the morning. 1. Dyspnea and lower extremity edema. The etiology is unknown. Improving after 1 dose of Lasix 40 mg. She has a history of tobacco. Physical examination reviewed. Bilateral decreased breath sounds. I believe she has underlying chronic obstructive pulmonary disease. I started DuoNeb nebulization. ECHO demonstrated normal ejection fraction.. 2. Elevated troponin. Troponin 0.26->0.18->0.17. I started aspirin. Leather Whitener was consulted and ordered for stress test. Her stress test unremarkable 3. Possible bronchopneumonia. Patient reported cough with yellowish sputum. She also complains some fever. CXR is unremakable. I started IV Levaquin empirically. Influenza screen negative. 4. Right upper lobe mass. It has enlarged since April 2019. It is measuring 3.6 cm x 3.7 cm. She has been followed by oncologist at [place] with Dr. Bravo. Supervisor Stripping was consulted and CT-guided biopsy was performed. Biopsy pending. She will follow window glass installer 5 Skin rashes. This patient experienced skin rashes on upper and lower extremities, which is itching. On Benadryl as needed. I suspect that this is due to allergy versus hygiene issue. This is almost resolved 5. Diabetes. We started sliding scale. Hemoglobin A1c 5.7. Resumed home metformin. 6. Tobacco abuse. I advised her to stop. 7. Possible chronic obstructive pulmonary disease. Patient is never diagnosed of chronic obstructive pulmonary disease. She has decreased breath sound. Highly suspect chronic obstructive pulmonary disease, on DuoNeb nebulization. 8. Colon cancer. This patient has not been compliant to follow her oncologist. Instructed her to follow Dr. Bravo. 9. Aortic stenosis. Echo demonstrated severe aortic stenosis. Instruct her to follow camp assistant as outpatient Discharge Plan: Home Plan to discharge in: 24 Hours - Code Status/Comfort Care Code Status Assessed: Yes Code Status: Full Code Time Spent Managing PTS Care (In Minutes): 32
--- NOTE | 2019-10-13 15:30 | RAD REPORT ---
EXAM DESCRIPTION: [facility] Single View10/13/2019 3:07 pm CLINICAL HISTORY: Pneumothorax IMPRESSION: Patient's previously described 1% right pneumothorax is not visualized on this examinat ion
[2019-10-13] MEDS: ALPRAZOLAM 0.25 MG TABLET PO PRN (21:26)
[2019-10-14] MEDS: IPRATROPIUM BROM 0.5MG/2.5ML NEB SCH ×4 (01:30→20:00)
[2019-10-14 06:24] LABS: BUN Blood Urea Nitrogen 6 mg/dL (7-18); Bicarbonate 27 mmol/L (21-32); Glucose Level 110 mg/dL (74-106); Potassium 4.2 mmol/L (3.5-5.1); Sodium Level 142 mmol/L (136-145)
--- NOTE | 2019-10-14 07:05 | RAD REPORT ---
[facility] CLINICAL HISTORY: Lung mass COMPARISON: October 13 FINDINGS: Right upper lobe mass is unchanged A pneumothorax is not visualized Left lung appears clear The heart is normal size. Centri venous line remains in place
[2019-10-14] MEDS: INSULIN -REGULAR HUMAN 50 UNIT/0.5 ML ML SQ SCH ×4 (07:30→20:15)
[2019-10-14] MEDS: METFORMIN HCL 500 MG TAB PO SCH ×2 (08:09→16:21)
[2019-10-14] MEDS: DULERA 200/5 (MOMETASONE/FORMOTEROL) INHALER IH SCH ×2 (08:09→20:08)
[2019-10-14 15:44] LABS: C.diff Antigen/Toxin Ag neg : Tox neg (NEG : NEG)
--- NOTE | 2019-10-14 19:21 | PN ---
Subjective: Currently, patient lying in bed. She looks comfortable. She does not want to go home b ecause she is having a lot of diarrhea and she is concerned that if she goes home because she lives 2 hours away that she wanted to get it under control and she would like to stay overnight. Objective: Vital Signs: Blood pressure 128/76, respiratory rate 18, pulse 84, temperature 98.1. General: Patient is alert and oriented x3, does not look in any distress. HEENT: Atraumatic, normocephalic. PERRLA. Oral mucosa is moist. Neck: Supple. No JVD. No carotid bruits. Chest: Clear to auscultation. Good air entry. Heart: Regular rate and rhythm. S1, S2 normal. No gallop or murmur. Abdomen: Soft, nontender. No masses. No hepatosplenomegaly. Positive bowel sounds. Extremities: No clubbing, cyanosis, or edema. No calf tenderness. Neurologic: Grossly intact. Laboratory Data: Labs today showed CBC with hemoglobin of 11.8, white blood cells 3.3, platelets 132 . Chemistry within normal limits except for carbon dioxide , creatinine 0.38, BUN 6, gluco se 110, calcium 8.3. Assessment And Plan: 1.Dyspnea with lower extremity edema, improved after diuresis. Patient on room air currently. Cont inue DuoNeb. Echocardiogram showed normal ejection fraction. 2.Elevated troponin. Cardiology has seen patient. She already had a stress test, which was unremar kable. She is on aspirin. 3.Right upper lobe mass since April 2018. Biopsy done and pathology is pending. 4.Diabetes mellitus. Hemoglobin A1c 5.7. She is insulin sliding scale and metformin. 5.Tobacco abuse. Advised patient to stop. 6.Chronic obstructive pulmonary disease, possible. There is no official diagnosis. Patient needs t o follow up with Pulmonary as outpatient. 7.History of colon cancer. Patient was not compliant with her oncologist and she was not receiving surveillance. 8.History of aortic stenosis, severe on echo. She will need to follow up with Cardiology as outpati ent. 9.Diarrhea, new today. We will check Clostridium difficile and if negative, we will start Imodium a nd discharge patient tomorrow. BROOKS/LINDA Voice ID: [id number] Report ID: [id number]
[2019-10-14] MEDS: DIPHENHYDRAMINE 25 MG TAB/CAP PO PRN (22:52)
[2019-10-15] MEDS: ALPRAZOLAM 0.25 MG TABLET PO PRN (00:08)
[2019-10-15] MEDS: IPRATROPIUM BROM 0.5MG/2.5ML NEB SCH ×2 (02:10→08:15)
[2019-10-15] MEDS: INSULIN -REGULAR HUMAN 50 UNIT/0.5 ML ML SQ SCH ×2 (07:30→11:30)
[2019-10-15] MEDS: METFORMIN HCL 500 MG TAB PO SCH (08:03)
[2019-10-15] MEDS: DULERA 200/5 (MOMETASONE/FORMOTEROL) INHALER IH SCH (08:03)
[2019-10-15 12:24] VITALS: O2SAT 98
[2019-10-15 13:37] VITALS: BP 122/72; TEMP 97.4
--- NOTE | 2019-10-16 00:49 | DS ---
Date of Discharge: 10/15/2019 Discharge Diagnoses: 1.Dyspnea, resolved. 2.Right upper lobe lung mass, biopsy done, results pending. 3.Diabetes mellitus. 4.Diarrhea, improved. 5.Borderline troponin. 6.History of aortic stenosis. Consult: Dr. Khan. Procedures: 1.CT of the chest done on the day of admission showed right upper lobe mass in large since April 2019, measuring 3.6 x 3.7 cm mass extending to the visceral pleura and makes into the chest wall and mass were either dense, bilateral bronchial wall thickening presented may reflect bronchitis versus viral infection. 2.Echocardiogram done on 08/11 showed normal left ventricular ejection fraction, severe aortic scler osis and stenosis. Mild tricuspid regurgitation. 3.Lung biopsy done on 10/13. Pathology pending. 4.Stress test done on 10/12 showed no stress-induced ischemia. Fixed defects in the region of the L V apex, likely related to scar tissue from prior infection. History Of Present Illness: Please refer to admission note. Hospital Course: Initially, the patient presented with mild shortness of breath which improved appar ently with 1 dose of Lasix. CAT scan of the chest showed right upper lobe mass. Pulmonary consult r equested. Dr. Khan advised to stop antibiotic and start patient on inhaler as well as proceed wi a biopsy. Biopsy was done on , but the result is pending. Dr. Khan decided to discharge patient home. Follow up with him in the outpatient and he will follow up on the pathology report. R efer patient to see Oncology if needed as well as order a PET scan, MRI of the brain for staging if t his was lung cancer. The patient understands this could be also, which was likely a metastatic from her history of colon cancer. The patient had a remote history of colon cancer, but she has not been following or doing any surveillance scans. She do not even recall when was the last time she had a c olonoscopy. In terms of her shortness of breath, there was no PE on CT scan. Echocardiogram done an d showed severe aortic stenosis. We will refer patient to see Cardiology as outpatient. Patient cur rently asymptomatic since she started on an inhaler. Stress test done on the was negative for isc hemia with scarring on the apex from prior VT may be. The patient yesterday had episode of diarrhea. C diff was checked and was negative. She will be discharged today with a p.r.n. Imodium. Discharge Condition: Stable. Discharge Diet: Cardiac. Discharge Followup: With primary physician next week to discuss pathology report. Follow up with Dr Daniela Khan as outpatient for spirometry, PET and MRI if the biopsy is positive. Follow up with [facility] to be evaluated further for her aortic stenosis. We will give her patient phone number. Discharge Physical Examination: Vital Signs: Blood pressure is 131/77, respiratory rate 16, pulse 7 3, temperature 97.6. Patient saturating 98% on room air. General: Alert, oriented x3. Does not look in any distress. HEENT: Atraumatic, normocephalic. PERRLA. Oral mucosa is moist. Neck: Supple. No JVD. No bruits. Chest: Clear to auscultation. Good air entry. Heart: Regular rate and rhythm. S1, S2 normal. No gallop or murmur. Abdomen: Soft, nontender No masses. No hepatosplenomegaly. Positive bowel sounds. Extremities: No clubbing, cyanosis, or edema. No calf tenderness. Neurologic: Grossly intact. Discharge Medications: 1.Dulera 100 mcg/5 mcg inhaler 2 puffs every 12-hour twice a day. 2.Metformin 500 mg twice a day as before. 3.Loperamide or Imodium 2 mg twice a day as needed. 4.Aspirin 81 mg daily. Again, I advised patient strongly to follow up with Dr. Khan to discuss the pathology report. Follow up with Cardiology for her aortic stenosis and PCP immediately after discharge. BROOKS/LINDA Voice ID: [id number] Report ID: [id number]
== END 2019-10-15 13:39 | disposition home or self-care (01) ==
LOC: ER 09:27 → ERHOLD 13:43 → 2ND 16:57
PROVIDERS: ADMIT Internal Medicine; ATTEND Internal Medicine
DX: C78.01 Secondary malignant neoplasm of right lung (principal); E11.9 Type 2 diabetes mellitus without complications; R19.7 Diarrhea, unspecified; I35.0 Nonrheumatic aortic (valve) stenosis; F17.210 Nicotine dependence, cigarettes, uncomplicated; R79.89 Other specified abnormal findings of blood chemistry; Z85.038 Personal history of other malignant neoplasm of large intestine
CPT/HCPCS: 93005; 93017; 93306; 85025 ×3; 80048 ×3; 36415 ×4; 82140; 83735 ×2; 89055; 87177; 84100; 84132; 85610; 80061; 82947 ×12; 80076; 80307 ×8; 88305; 87209; 81003; 87324; 83036; 84484 ×4; 80053; 83880; 87449; 82705; 87804 ×2; 77012; 32405; 71275; 71045 ×3; 70553; 97161; 94640; 94760 ×8; 78452; 99285; Q9967; A9577; J1940; J1650; J2250; J3010; J2785; G0378 ×7; J7030; A9500; J2310; J7606

== ENCOUNTER 2019-11-29 13:31 | Emergency (ER) | payer OTHER ==
--- OUTSIDE RECORDS SUMMARY | 2019-11-29 13:39 | XMS REPORT ---
:1955 [facility] Oswald Maddox [address] [place] [address] Care Team Providers Name Role Phone DAVIDE AGUILAR Unavailable Unavailable BEN GONZALEZ Unavailable Unavailable Problems This patient has no known problems. Allergies, Adverse Reactions, Alerts This patient has no known allergies or adverse reactions. Medications This patient has no known medications. Results Test Description Test Time Test Comments Text Results Atomic Results Result Comments POCT-GLUCOSE METER 2019-11-26 12:13:00 Test Item Value Reference Range Comments POC-GLUCOSE METER (BEAKER) 142 mg/dL 70-110 : TESTED AT [address] (test flkl=8938) [place], [address]: Property Management Coordinator/Marketing Operations Manager [id number] for RAJESH PEPE POCT-GLUCOSE [id number] 08:40:00 Test Item Value Reference Range Comments POC-GLUCOSE METER (BEAKER) 93 mg/dL 70-110 : TESTED AT [address] (test pktj=4587) [facility], [address]: Property Management Coordinator/Marketing Operations Manager [phone] for RAJESH PEPE [id number] 06:28:00 Test Item Value Reference Range Comments PHOSPHORUS (BEAKER) (test vggn=891) 4.3 mg/dL 2.3-4.7 Property Management Coordinator ID - [id number] 06:28:00 Test Item Value Reference Range Comments MAGNESIUM (BEAKER) (test kkme=070) 2.1 mg/dL 1.6-2.6 Property Management Coordinator ID - DBBASIC METABOLIC [id number] 06:28:00 Test Item Value Reference Range Comments SODIUM (BEAKER) (test 140 meq/L 136-145 ewft=216) POTASSIUM (BEAKER) (test 3.8 meq/L 3.5-5.1 peqq=056) CHLORIDE (BEAKER) (test 109 meq/L 98-107 ftqx=331) CO2 (BEAKER) (test 22 meq/L 22-29 piek=422) BLOOD UREA NITROGEN 18 mg/dL 7-21 (BEAKER) (test nihm=160) CREATININE (BEAKER) (test 0.81 mg/dL 0.57-1.25 lenc=833) GLUCOSE RANDOM (BEAKER) 109 mg/dL 70-105 (test vtnz=008) CALCIUM (BEAKER) (test 9.5 mg/dL 8.4-10.2 jmao=890) EGFR (BEAKER) (test 72 mL/min/1.73 sq m ESTIMATED GFR IS NOT aebl=6328) ACCURATE CREATININE CLEARANCE IN PREDICTING GLOMERULAR FILTRATION RATE. ESTIMATED GFR IS NOT APPLICABLE FOR DIALYSIS PATIENTS. Property Management Coordinator ID - [id number] 05:12:00 Test Item Value Reference Range Comments PARTIAL THROMBOPLASTIN TIME (BEAKER) (test 30.3 seconds 22.5-36.0 uuzl=308) PROTHROMBIN [id number] 05:11:00 Test Item Value Reference Range Comments PROTIME (BEAKER) (test jxfr=690) 12.8 seconds 11.9-14.2 INR (BEAKER) (test fgge=777) 1.0 <=5.9 Effective 01/25/2019: PT Reference Range ChangeNew: 11.9-14.2 Previous: 11.7- 14.7RECOMMENDED COUMADIN/WARFARIN INR THERAPY RANGESSTANDARD DOSE: 2.0-3.0 Includes: PROPHYLAXIS for venous thrombosis, systemic embolization; TREATMENT for venous thrombosis and/or pulmonary embolus.HIGH RISK: Target INR is2.5-3.5 for patients wiht mechanical heart valves.CBC (HEMOGRAM ONLY)2019-11-26 05:07:00 Test Item Value Reference Range Comments WHITE BLOOD CELL COUNT (BEAKER) (test adus=526) 6.8 K/ L 3.5-10.5 RED BLOOD CELL COUNT (BEAKER) (test nnmd=195) 3.46 M/ L 3.93-5.22 HEMOGLOBIN (BEAKER) (test iieb=840) 11.5 GM/DL 11.2-15.7 HEMATOCRIT (BEAKER) (test wsmu=942) 35.9 % 34.1-44.9 MEAN CORPUSCULAR VOLUME (BEAKER) (test icjs=867) 103.8 fL 79.4-94.8 MEAN CORPUSCULAR HEMOGLOBIN (BEAKER) (test 33.2 pg 25.6-32.2 iktt=860) MEAN CORPUSCULAR HEMOGLOBIN CONC (BEAKER) (test 32.0 GM/DL 32.2-35.5 bovw=398) RED CELL DISTRIBUTION WIDTH (BEAKER) (test 14.2 % 11.7-14.4 sqgn=385) PLATELET COUNT (BEAKER) (test vjwf=093) 197 K/CU MM 150-450 MEAN PLATELET VOLUME (BEAKER) (test nhal=445) 9.3 fL 9.4-12.3 NUCLEATED RED BLOOD CELLS (BEAKER) (test 0 /100 WBC 0-0 yrve=703) POCT-GLUCOSE [id number] 21:38:00 Test Item Value Reference Range Comments POC-GLUCOSE METER (BEAKER) 141 mg/dL 70-110 : TESTED AT [address] (test uztm=1988) [facility], [address]: Property Management Coordinator/Marketing Operations Manager [id number] for DANIELLE KISER POCT-GLUCOSE [id number] 18:28:00 Test Item Value Reference Range Comments POC-GLUCOSE METER (BEAKER) 94 mg/dL 70-110 : TESTED AT [address] (test qyrv=3120) [facility], [address]: Property Management Coordinator/Marketing Operations Manager [id number] for RAJESH PEPE POCT-GLUCOSE [id number] 17:00:00 Test Item Value Reference Range Comments POC-GLUCOSE METER (BEAKER) 100 mg/dL 70-110 : TESTED AT [address] (test dkla=6764) [facility], [address]: Property Management Coordinator/Marketing Operations Manager [id number] for RUDOLPH MILDRED POCT-GLUCOSE [id number] 12:02:00 Test Item Value Reference Range Comments POC-GLUCOSE METER (BEAKER) 196 mg/dL 70-110 : TESTED AT [address] (test lvpu=2693) [facility], [address]: Property Management Coordinator/Marketing Operations Manager [id number] for HALEY PEPEA POCT-GLUCOSE [id number] 08:12:00 Test Item Value Reference Range Comments POC-GLUCOSE METER (BEAKER) 119 mg/dL 70-110 : TESTED AT [facility] [address] (test zqss=0319) [facility], [address]: Property Management Coordinator/Marketing Operations Manager [id number] for RAJESH PEPE [id number] 05:45:00 Test Item Value Reference Range Comments PHOSPHORUS (BEAKER) (test lnoh=473) 5.2 mg/dL 2.3-4.7 Property Management Coordinator ID - KESHIA [id number] 05:45:00 Test Item Value Reference Range Comments MAGNESIUM (BEAKER) (test prpc=969) 1.9 mg/dL 1.6-2.6 Property Management Coordinator ID - KESHIA LBASIC METABOLIC [id number] 05:45:00 Test Item Value Reference Range Comments SODIUM (BEAKER) (test 141 meq/L 136-145 aiyl=116) POTASSIUM (BEAKER) (test 3.7 meq/L 3.5-5.1 uyzx=743) CHLORIDE (BEAKER) (test 109 meq/L 98-107 vmxd=061) CO2 (BEAKER) (test 22 meq/L 22-29 lcxb=841) BLOOD UREA NITROGEN 20 mg/dL 7-21 (BEAKER) (test crcf=820) CREATININE (BEAKER) (test 0.94 mg/dL 0.57-1.25 wdmt=831) GLUCOSE RANDOM (BEAKER) 122 mg/dL 70-105 (test lhdn=580) CALCIUM (BEAKER) (test 9.5 mg/dL 8.4-10.2 love=087) EGFR (BEAKER) (test 60 mL/min/1.73 sq m ESTIMATED GFR IS NOT igbi=0423) ACCURATE CREATININE CLEARANCE IN PREDICTING GLOMERULAR FILTRATION RATE. ESTIMATED GFR IS NOT APPLICABLE FOR DIALYSIS PATIENTS. Property Management Coordinator ID - KESHIA LPROTHROMBIN TIME/[id number] 05:42:00 Test Item Value Reference Range Comments PROTIME (BEAKER) (test tbmk=741) 13.3 seconds 11.9-14.2 INR (BEAKER) (test ilus=734) 1.0 <=5.9 Effective 01/25/2019: PT Reference Range ChangeNew: 11.9-14.2 Previous: 11.7- 14.7RECOMMENDED COUMADIN/WARFARIN INR THERAPY RANGESSTANDARD DOSE: 2.0-3.0 Includes: PROPHYLAXIS for venous thrombosis, systemic embolization; TREATMENT for venous thrombosis and/or pulmonary embolus.HIGH RISK: Target INR is2.5-3.5 for patients wiht mechanical heart valves.[id number] 05:42:00 Test Item Value Reference Range Comments PARTIAL THROMBOPLASTIN TIME (BEAKER) (test 30.4 seconds 22.5-36.0 qzqy=099) CBC (HEMOGRAM ONLY)2019-11-25 05:08:00 Test Item Value Reference Range Comments WHITE BLOOD CELL COUNT (BEAKER) (test evrh=480) 7.5 K/ L 3.5-10.5 RED BLOOD CELL COUNT (BEAKER) (test zbmm=093) 3.38 M/ L 3.93-5.22 HEMOGLOBIN (BEAKER) (test jkoa=868) 11.5 GM/DL 11.2-15.7 HEMATOCRIT (BEAKER) (test tmpq=767) 35.0 % 34.1-44.9 MEAN CORPUSCULAR VOLUME (BEAKER) (test gtvu=261) 103.6 fL 79.4-94.8 MEAN CORPUSCULAR HEMOGLOBIN (BEAKER) (test 34.0 pg 25.6-32.2 rxgk=697) MEAN CORPUSCULAR HEMOGLOBIN CONC (BEAKER) (test 32.9 GM/DL 32.2-35.5 viin=433) RED CELL DISTRIBUTION WIDTH (BEAKER) (test 14.6 % 11.7-14.4 lmni=388) PLATELET COUNT (BEAKER) (test umix=384) 184 K/CU MM 150-450 MEAN PLATELET VOLUME (BEAKER) (test dgqw=551) 9.5 fL 9.4-12.3 NUCLEATED RED BLOOD CELLS (BEAKER) (test 0 /100 WBC 0-0 chep=188) POCT-GLUCOSE [id number] 21:27:00 Test Item Value Reference Range Comments POC-GLUCOSE METER (BEAKER) 139 mg/dL 70-110 : TESTED AT [place] [address] [address] (test lafg=7276) [facility], [address]: Property Management Coordinator/Marketing Operations Manager [id number] for DANIELLE KISER POCT-GLUCOSE [id number] 12:27:00 Test Item Value Reference Range Comments POC-GLUCOSE METER (BEAKER) 149 mg/dL 70-110 : TESTED AT [address] (test vpux=9972) [facility], [address]: Property Management Coordinator/Marketing Operations Manager [phone] for MILDRED RUDOLPH CT, BRAIN, WITHOUT [id number] 11:04:00FINAL REPORT CT Head without contrast CLINICAL HISTORY: Altered mental statusTECHNIQUE: Contiguous axial CT images through the head without contrast. This exam was performed according to the departmental dose optimization program which includes automated exposure control, adjustment of the mA and/or kV according to the patient size, and/or use of an iterative reconstruction technique. COMPARISON: None FINDINGS: The study is motion degraded despite repeat imaging. As such, acute infarction cannot be excluded. 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 There is no gross evidence for intracranial hemorrhage. There is generalized parenchymal volume loss without hydrocephalus or midline shift. There are atherosclerotic calcifications of the intracranial circulation. The skull appears intact. IMPRESSION: Motion degraded exam as discussed above. Repeat imaging is recommended when the patient is better able to hold still. Signed: Sabiha Castrejon MDReport Verified Date/Time: 11/24/2019 11:04:11 Reading Location: [address] Neuro Reading Room POCT-GLUCOSE [id number] 08:10:00 Test Item Value Reference Range Comments POC-GLUCOSE METER (BEAKER) 112 mg/dL 70-110 : TESTED AT [address] (test ojpn=1697) [facility], [address]: Property Management Coordinator/Marketing Operations Manager [id number] for MILDRED RUDOLPH [id number] 05:13:00 Test Item Value Reference Range Comments PHOSPHORUS (BEAKER) (test dwkm=741) 3.9 mg/dL 2.3-4.7 Property Management Coordinator ID - KESHIA [id number] 05:13:00 Test Item Value Reference Range Comments MAGNESIUM (BEAKER) (test umvx=828) 2.2 mg/dL 1.6-2.6 Property Management Coordinator ID - KESHIA LBASIC METABOLIC [id number] 05:13:00 Test Item Value Reference Range Comments SODIUM (BEAKER) (test 141 meq/L 136-145 bzqr=699) POTASSIUM (BEAKER) (test 3.8 meq/L 3.5-5.1 eseu=248) CHLORIDE (BEAKER) (test 109 meq/L 98-107 vorp=387) CO2 (BEAKER) (test 25 meq/L 22-29 lmwo=756) BLOOD UREA NITROGEN 9 mg/dL 7-21 (BEAKER) (test bbnk=654) CREATININE (BEAKER) (test 0.59 mg/dL 0.57-1.25 smqz=340) GLUCOSE RANDOM (BEAKER) 119 mg/dL 70-105 (test mhkj=874) CALCIUM (BEAKER) (test 9.3 mg/dL 8.4-10.2 bozd=014) EGFR (BEAKER) (test 103 mL/min/1.73 sq m ESTIMATED GFR IS NOT ilym=1279) ACCURATE CREATININE CLEARANCE IN PREDICTING GLOMERULAR FILTRATION RATE. ESTIMATED GFR IS NOT APPLICABLE FOR DIALYSIS PATIENTS. Property Management Coordinator ID - PIYANELY [id number] 05:06:00 Test Item Value Reference Range Comments PARTIAL THROMBOPLASTIN TIME (BEAKER) (test 31.0 seconds 22.5-36.0 puqo=250) PROTHROMBIN [id number] 05:05:00 Test Item Value Reference Range Comments PROTIME (BEAKER) (test kugf=481) 13.5 seconds 11.9-14.2 INR (BEAKER) (test dfsx=554) 1.1 <=5.9 Effective 01/25/2019: PT Reference Range ChangeNew: 11.9-14.2 Previous: 11.7- 14.7RECOMMENDED COUMADIN/WARFARIN INR THERAPY RANGESSTANDARD DOSE: 2.0-3.0 Includes: PROPHYLAXIS for venous thrombosis, systemic embolization; TREATMENT for venous thrombosis and/or pulmonary embolus.HIGH RISK: Target INR is2.5-3.5 for patients wiht mechanical heart valves.CBC (HEMOGRAM ONLY)2019-11-24 04:53:00 Test Item Value Reference Range Comments WHITE BLOOD CELL COUNT (BEAKER) (test wrlq=809) 7.2 K/ L 3.5-10.5 RED BLOOD CELL COUNT (BEAKER) (test ymhg=926) 3.43 M/ L 3.93-5.22 HEMOGLOBIN (BEAKER) (test eifo=490) 11.9 GM/DL 11.2-15.7 HEMATOCRIT (BEAKER) (test qyfb=305) 35.6 % 34.1-44.9 MEAN CORPUSCULAR VOLUME (BEAKER) (test tthe=826) 103.8 fL 79.4-94.8 MEAN CORPUSCULAR HEMOGLOBIN (BEAKER) (test 34.7 pg 25.6-32.2 lloy=138) MEAN CORPUSCULAR HEMOGLOBIN CONC (BEAKER) (test 33.4 GM/DL 32.2-35.5 ynag=213) RED CELL DISTRIBUTION WIDTH (BEAKER) (test 14.6 % 11.7-14.4 wuli=200) PLATELET COUNT (BEAKER) (test ghvs=073) 150 K/CU MM 150-450 MEAN PLATELET VOLUME (BEAKER) (test kywn=204) 9.4 fL 9.4-12.3 NUCLEATED RED BLOOD CELLS (BEAKER) (test 0 /100 WBC 0-0 xxtn=460) POCT-GLUCOSE [id number] 21:40:00 Test Item Value Reference Range Comments POC-GLUCOSE METER (BEAKER) 89 mg/dL 70-110 : TESTED AT [place] [id number] [facility] (test xekk=3848) [facility], [address]: Property Management Coordinator/Marketing Operations Manager [id number] for CLEVELAND TORRES POCT-GLUCOSE [id number] 13:43:00 Test Item Value Reference Range Comments POC-GLUCOSE METER (BEAKER) 100 mg/dL 70-110 : TESTED AT [place] [id number] [facility] (test lrpb=3683) [facility], [address]: Property Management Coordinator/Marketing Operations Manager [id number] for MILDRED RUDOLPH CBC W/PLT COUNT & AUTO [id number] 03:48:00 Test Item Value Reference Range Comments WHITE BLOOD CELL COUNT (BEAKER) (test rsoy=918) 6.4 K/ L 3.5-10.5 RED BLOOD CELL COUNT (BEAKER) (test riex=045) 3.11 M/ L 3.93-5.22 HEMOGLOBIN (BEAKER) (test mnhk=008) 10.5 GM/DL 11.2-15.7 HEMATOCRIT (BEAKER) (test ufgu=557) 31.9 % 34.1-44.9 MEAN CORPUSCULAR VOLUME (BEAKER) (test iyyu=343) 102.6 fL 79.4-94.8 MEAN CORPUSCULAR HEMOGLOBIN (BEAKER) (test 33.8 pg 25.6-32.2 dbph=328) MEAN CORPUSCULAR HEMOGLOBIN CONC (BEAKER) (test 32.9 GM/DL 32.2-35.5 vjbg=407) RED CELL DISTRIBUTION WIDTH (BEAKER) (test 14.6 % 11.7-14.4 kzzu=320) PLATELET COUNT (BEAKER) (test vquo=813) 151 K/CU MM 150-450 MEAN PLATELET VOLUME (BEAKER) (test ygjq=087) 8.9 fL 9.4-12.3 NUCLEATED RED BLOOD CELLS (BEAKER) (test 0 /100 WBC 0-0 bmmp=572) NEUTROPHILS RELATIVE PERCENT (BEAKER) (test 86 % nnji=831) LYMPHOCYTES RELATIVE PERCENT (BEAKER) (test 6 % pvdh=944) MONOCYTES RELATIVE PERCENT (BEAKER) (test 7 % xtfq=249) EOSINOPHILS RELATIVE PERCENT (BEAKER) (test 1 % zjli=648) BASOPHILS RELATIVE PERCENT (BEAKER) (test 0 % ylvz=810) NEUTROPHILS ABSOLUTE COUNT (BEAKER) (test 5.52 K/ L 1.56-6.13 pejd=525) LYMPHOCYTES ABSOLUTE COUNT (BEAKER) (test 0.40 K/ L 1.18-3.74 npsg=768) MONOCYTES ABSOLUTE COUNT (BEAKER) (test 0.42 K/ L 0.24-0.36 zmfe=522) EOSINOPHILS ABSOLUTE COUNT (BEAKER) (test 0.05 K/ L 0.04-0.36 tbxq=140) BASOPHILS ABSOLUTE COUNT (BEAKER) (test 0.01 K/ L 0.01-0.08 phkp=583) IMMATURE GRANULOCYTES-RELATIVE PERCENT (BEAKER) 1 % 0-1 (test apum=6977) [id number] 03:47:00 Test Item Value Reference Range Comments PHOSPHORUS (BEAKER) (test vknx=223) 3.6 mg/dL 2.3-4.7 Property Management Coordinator ID - VARSHA [id number] 03:47:00 Test Item Value Reference Range Comments MAGNESIUM (BEAKER) (test bgqt=917) 2.2 mg/dL 1.6-2.6 Property Management Coordinator ID - VARSHA MBASIC METABOLIC [id number] 03:47:00 Test Item Value Reference Range Comments SODIUM (BEAKER) (test 140 meq/L 136-145 azor=020) POTASSIUM (BEAKER) (test 3.6 meq/L 3.5-5.1 uwme=774) CHLORIDE (BEAKER) (test 109 meq/L 98-107 pucu=546) CO2 (BEAKER) (test 24 meq/L 22-29 xglq=079) BLOOD UREA NITROGEN 7 mg/dL 7-21 (BEAKER) (test qelu=723) CREATININE (BEAKER) (test 0.55 mg/dL 0.57-1.25 dxwc=987) GLUCOSE RANDOM (BEAKER) 118 mg/dL 70-105 (test itxw=328) CALCIUM (BEAKER) (test 8.5 mg/dL 8.4-10.2 omxj=200) EGFR (BEAKER) (test 112 mL/min/1.73 sq m ESTIMATED GFR IS NOT lpsq=3697) ACCURATE CREATININE CLEARANCE IN PREDICTING GLOMERULAR FILTRATION RATE. ESTIMATED GFR IS NOT APPLICABLE FOR DIALYSIS PATIENTS. Property Management Coordinator ID - VARSHA [id number] 03:43:00 Test Item Value Reference Range Comments PARTIAL THROMBOPLASTIN TIME (BEAKER) (test 29.4 seconds 22.5-36.0 wlrf=939) PROTHROMBIN TIME/[id number] 03:42:00 Test Item Value Reference Range Comments PROTIME (BEAKER) (test qoyp=688) 13.6 seconds 11.9-14.2 INR (BEAKER) (test kfzr=931) 1.1 <=5.9 Effective 01/25/2019: PT Reference Range ChangeNew: 11.9-14.2 Previous: 11.7- 14.7RECOMMENDED COUMADIN/WARFARIN INR THERAPY RANGESSTANDARD DOSE: 2.0-3.0 Includes: PROPHYLAXIS for venous thrombosis, systemic embolization; TREATMENT for venous thrombosis and/or pulmonary embolus.HIGH RISK: Target INR is2.5-3.5 for patients wiht mechanical heart valves.[id number] 14:03:00 Test Item Value Reference Range Comments ACTIVATED CLOTTING TIME 400 sec : 74-137 seconds, Baseline: (BEAKER) (test kxtd=550) TESTED AT [address], [address]: Property Management Coordinator/Marketing Operations Manager [id number] for ALISON SHAHID [id number] 14:02:00 Test Item Value Reference Range Comments ACTIVATED CLOTTING TIME 285 sec : 74-137 seconds, Baseline: (BEAKER) (test kfut=237) TESTED AT [address], [address]: Property Management Coordinator/Marketing Operations Manager [id number] for ALISON SHAHID, CHEST, 1 VIEW, NON [id number] 11:37:00Reason for exam:->Post-op TAVRShould this be performed at the bedside?->YesFINAL REPORT TECHNIQUE: Frontal chest radiograph dated 11/22/2019. CLINICAL HISTORY : Post op TAVR COMPARISON STUDY: Chest radiograph and chest CT both dated 2019 IMPRESSION:Right internal jugular venous catheter is seen with the tip projected over the region of the superior vena cava/right atrial junction. Right -sided MediPort is unchanged in position. Stable right upper lobe mass. No pleural effusion or pneumothorax. Cardiomediastinal silhouette is normal in size. An aortic valve stent is in place. No pulmonary edema. No fracture. Signed : Akbar Grahameport Verified Date/Time: 11/22/2019 11:37:14 Reading Location: [address] Radiology Reading Room [id number] 11:08:00 Test Item Value Reference Range Comments PHOSPHORUS (BEAKER) (test ezad=121) 3.5 mg/dL 2.3-4.7 Property Management Coordinator ID - BRIONNA [id number] 11:08:00 Test Item Value Reference Range Comments MAGNESIUM (BEAKER) (test zoil=676) 2.2 mg/dL 1.6-2.6 Property Management Coordinator ID - BRIONNA FBASIC METABOLIC [id number] 11:08:00 Test Item Value Reference Range Comments SODIUM (BEAKER) (test 139 meq/L 136-145 gmve=688) POTASSIUM (BEAKER) (test 3.9 meq/L 3.5-5.1 bwlk=678) CHLORIDE (BEAKER) (test 108 meq/L 98-107 wujm=217) CO2 (BEAKER) (test 26 meq/L 22-29 brwy=498) BLOOD UREA NITROGEN 10 mg/dL 7-21 (BEAKER) (test fihe=672) CREATININE (BEAKER) (test 0.54 mg/dL 0.57-1.25 gwaj=896) GLUCOSE RANDOM (BEAKER) 122 mg/dL 70-105 (test rxpj=599) CALCIUM (BEAKER) (test 8.4 mg/dL 8.4-10.2 efus=978) EGFR (BEAKER) (test 114 mL/min/1.73 sq m ESTIMATED GFR IS NOT aozp=0143) ACCURATE CREATININE CLEARANCE IN PREDICTING GLOMERULAR FILTRATION RATE. ESTIMATED GFR IS NOT APPLICABLE FOR DIALYSIS PATIENTS. Property Management Coordinator ID - BRIONNA [id number] 11:06:00 Test Item Value Reference Range Comments PARTIAL THROMBOPLASTIN TIME (BEAKER) (test 29.9 seconds 22.5-36.0 lxeq=817) PROTHROMBIN [id number] 11:05:00 Test Item Value Reference Range Comments PROTIME (BEAKER) (test ukyo=634) 13.3 seconds 11.9-14.2 INR (BEAKER) (test quro=790) 1.0 <=5.9 Effective 01/25/2019: PT Reference Range ChangeNew: 11.9-14.2 Previous: 11.7- 14.7RECOMMENDED COUMADIN/WARFARIN INR THERAPY RANGESSTANDARD DOSE: 2.0-3.0 Includes: PROPHYLAXIS for venous thrombosis, systemic embolization; TREATMENT for venous thrombosis and/or pulmonary embolus.HIGH RISK: Target INR is2.5-3.5 for patients wiht mechanical heart valves.CBC W/PLT COUNT & AUTO [id number] 11:03:00 Test Item Value Reference Range Comments WHITE BLOOD CELL COUNT (BEAKER) (test qjwu=457) 6.1 K/ L 3.5-10.5 RED BLOOD CELL COUNT (BEAKER) (test talo=968) 2.99 M/ L 3.93-5.22 HEMOGLOBIN (BEAKER) (test qnkr=919) 10.6 GM/DL 11.2-15.7 HEMATOCRIT (BEAKER) (test jglp=592) 31.6 % 34.1-44.9 MEAN CORPUSCULAR VOLUME (BEAKER) (test fteu=851) 105.7 fL 79.4-94.8 MEAN CORPUSCULAR HEMOGLOBIN (BEAKER) (test 35.5 pg 25.6-32.2 pftb=526) MEAN CORPUSCULAR HEMOGLOBIN CONC (BEAKER) (test 33.5 GM/DL 32.2-35.5 yalx=916) RED CELL DISTRIBUTION WIDTH (BEAKER) (test 14.6 % 11.7-14.4 lgkf=619) PLATELET COUNT (BEAKER) (test xbna=723) 140 K/CU MM 150-450 MEAN PLATELET VOLUME (BEAKER) (test lwbc=180) 9.0 fL 9.4-12.3 NUCLEATED RED BLOOD CELLS (BEAKER) (test 0 /100 WBC 0-0 ibzd=882) NEUTROPHILS RELATIVE PERCENT (BEAKER) (test 80 % tdps=590) LYMPHOCYTES RELATIVE PERCENT (BEAKER) (test 9 % kkhy=048) MONOCYTES RELATIVE PERCENT (BEAKER) (test 7 % cerd=297) EOSINOPHILS RELATIVE PERCENT (BEAKER) (test 2 % quxn=620) BASOPHILS RELATIVE PERCENT (BEAKER) (test 0 % aniv=729) NEUTROPHILS ABSOLUTE COUNT (BEAKER) (test 4.93 K/ L 1.56-6.13 doyz=865) LYMPHOCYTES ABSOLUTE COUNT (BEAKER) (test 0.57 K/ L 1.18-3.74 algk=669) MONOCYTES ABSOLUTE COUNT (BEAKER) (test 0.44 K/ L 0.24-0.36 jwec=270) EOSINOPHILS ABSOLUTE COUNT (BEAKER) (test 0.13 K/ L 0.04-0.36 peje=185) BASOPHILS ABSOLUTE COUNT (BEAKER) (test 0.01 K/ L 0.01-0.08 bfwr=901) IMMATURE GRANULOCYTES-RELATIVE PERCENT (BEAKER) 1 % 0-1 (test fnsk=7413) BLOOD GAS, [id number] 10:54:00 Test Item Value Reference Range Comments PH ARTERIAL (BEAKER) (test sznp=136) 7.41 7.35-7.45 PCO2 ARTERIAL (BEAKER) (test shlr=963) 43 mmHg 35-45 PO2 ARTERIAL (BEAKER) (test qxxn=291) 97 mmHg 80-90 O2 SATURATION ARTERIAL (BEAKER) (test xuau=191) 97.5 % 96.0-97.0 HCO3 ARTERIAL (BEAKER) (test mzrm=242) 27 mmol/L 21-29 BASE EXCESS ARTERIAL (BEAKER) (test kkfn=904) 1.9 mmol/L -2.0-3.0 PATIENT TEMPERATURE (BEAKER) (test bsyt=1078) 36.8 C FIO2 (BEAKER) (test sctl=3244) 36.0 % GLUCOSE-STAT [id number] 10:54:00 Test Item Value Reference Range Comments GLUCOSE RANDOM (BEAKER) (test qpir=003) 121 mg/dL 70-110 HGB/HCT (H&H) - STAT [id number] 10:54:00 Test Item Value Reference Range Comments HEMOGLOBIN (BEAKER) (test quvg=795) 11.0 g/dL 12.0-15.0 HEMATOCRIT (BEAKER) (test lwtx=743) 32.0 % 36.0-45.0 SODIUM NA-STAT [id number] 10:53:00 Test Item Value Reference Range Comments SODIUM (BEAKER) (test tswz=754) 137 meq/L 135-148 POTASSIUM-STAT [id number] 10:53:00 Test Item Value Reference Range Comments POTASSIUM (BEAKER) (test ueje=995) 3.7 meq/L 3.6-5.5 CALCIUM, [id number] 10:53:00 Test Item Value Reference Range Comments CALCIUM IONIZED (BEAKER) (test gnxx=566) 1.14 mmol/L 1.12-1.27 PH, BLOOD (BEAKER) (test fabi=4915) 7.41 [id number] 05:57:00 Test Item Value Reference Range Comments PHOSPHORUS (BEAKER) (test mzno=137) 3.5 mg/dL 2.3-4.7 Property Management Coordinator ID - VARSHA [id number] 05:57:00 Test Item Value Reference Range Comments MAGNESIUM (BEAKER) (test lvli=074) 2.0 mg/dL 1.6-2.6 Property Management Coordinator ID - VARSHA MBASIC METABOLIC [id number] 05:57:00 Test Item Value Reference Range Comments SODIUM (BEAKER) (test 141 meq/L 136-145 kjqm=243) POTASSIUM (BEAKER) (test 3.8 meq/L 3.5-5.1 xtws=167) CHLORIDE (BEAKER) (test 109 meq/L 98-107 ubis=914) CO2 (BEAKER) (test 26 meq/L 22-29 erue=375) BLOOD UREA NITROGEN 10 mg/dL 7-21 (BEAKER) (test chhx=453) CREATININE (BEAKER) (test 0.60 mg/dL 0.57-1.25 pmwu=119) GLUCOSE RANDOM (BEAKER) 117 mg/dL 70-105 (test hroj=879) CALCIUM (BEAKER) (test 9.0 mg/dL 8.4-10.2 zzyc=473) EGFR (BEAKER) (test 101 mL/min/1.73 sq m ESTIMATED GFR IS NOT azsu=4278) ACCURATE CREATININE CLEARANCE IN PREDICTING GLOMERULAR FILTRATION RATE. ESTIMATED GFR IS NOT APPLICABLE FOR DIALYSIS PATIENTS. Property Management Coordinator ID - VARSHA [id number] 05:45:00 Test Item Value Reference Range Comments PARTIAL THROMBOPLASTIN TIME (BEAKER) (test 30.2 seconds 22.5-36.0 pevv=703) PROTHROMBIN [id number] 05:44:00 Test Item Value Reference Range Comments PROTIME (BEAKER) (test xnio=690) 13.1 seconds 11.9-14.2 INR (BEAKER) (test zrpa=325) 1.0 <=5.9 Effective 01/25/2019: PT Reference Range ChangeNew: 11.9-14.2 Previous: 11.7- 14.7RECOMMENDED COUMADIN/WARFARIN INR THERAPY RANGESSTANDARD DOSE: 2.0-3.0 Includes: PROPHYLAXIS for venous thrombosis, systemic embolization; TREATMENT for venous thrombosis and/or pulmonary embolus.HIGH RISK: Target INR is2.5-3.5 for patients wiht mechanical heart valves.CBC W/PLT COUNT & AUTO [id number] 05:40:00 Test Item Value Reference Range Comments WHITE BLOOD CELL COUNT (BEAKER) (test yzjr=737) 4.7 K/ L 3.5-10.5 RED BLOOD CELL COUNT (BEAKER) (test iqzs=240) 3.19 M/ L 3.93-5.22 HEMOGLOBIN (BEAKER) (test jaml=311) 10.9 GM/DL 11.2-15.7 HEMATOCRIT (BEAKER) (test zszw=856) 33.3 % 34.1-44.9 MEAN CORPUSCULAR VOLUME (BEAKER) (test gdby=756) 104.4 fL 79.4-94.8 MEAN CORPUSCULAR HEMOGLOBIN (BEAKER) (test 34.2 pg 25.6-32.2 ubqb=020) MEAN CORPUSCULAR HEMOGLOBIN CONC (BEAKER) (test 32.7 GM/DL 32.2-35.5 fpfh=286) RED CELL DISTRIBUTION WIDTH (BEAKER) (test 14.6 % 11.7-14.4 zlst=974) PLATELET COUNT (BEAKER) (test nsun=699) 172 K/CU MM 150-450 MEAN PLATELET VOLUME (BEAKER) (test rnmq=421) 9.7 fL 9.4-12.3 NUCLEATED RED BLOOD CELLS (BEAKER) (test 0 /100 WBC 0-0 ftlq=399) NEUTROPHILS RELATIVE PERCENT (BEAKER) (test 69 % eubi=320) LYMPHOCYTES RELATIVE PERCENT (BEAKER) (test 15 % rpka=040) MONOCYTES RELATIVE PERCENT (BEAKER) (test 13 % rsmw=461) EOSINOPHILS RELATIVE PERCENT (BEAKER) (test 2 % kioy=383) BASOPHILS RELATIVE PERCENT (BEAKER) (test 0 % rttz=734) NEUTROPHILS ABSOLUTE COUNT (BEAKER) (test 3.21 K/ L 1.56-6.13 crvm=220) LYMPHOCYTES ABSOLUTE COUNT (BEAKER) (test 0.68 K/ L 1.18-3.74 ywmx=406) MONOCYTES ABSOLUTE COUNT (BEAKER) (test 0.62 K/ L 0.24-0.36 vbum=319) EOSINOPHILS ABSOLUTE COUNT (BEAKER) (test 0.11 K/ L 0.04-0.36 nuob=677) BASOPHILS ABSOLUTE COUNT (BEAKER) (test 0.01 K/ L 0.01-0.08 pjwf=901) IMMATURE GRANULOCYTES-RELATIVE PERCENT (BEAKER) 0 % 0-1 (test uhsd=6984) POCT-GLUCOSE [id number] 05:14:00 Test Item Value Reference Range Comments POC-GLUCOSE METER (BEAKER) 117 mg/dL 70-110 : TESTED AT [facility] [address] [facility] (test zxdk=0318) [facility], [address]: Property Management Coordinator/Marketing Operations Manager [id number] for MELISSA C[place]AND POCT-GLUCOSE [id number] 21:22:00 Test Item Value Reference Range Comments POC-GLUCOSE METER (BEAKER) 144 mg/dL 70-110 : TESTED AT [address] (test vmoh=2433) [facility], [address]: Property Management Coordinator/Marketing Operations Manager [id number] for CLEVELAND TORRES POCT-GLUCOSE [id number] 18:38:00 Test Item Value Reference Range Comments POC-GLUCOSE METER (BEAKER) 115 mg/dL 70-110 : TESTED AT [address] (test pbin=4477) [facility], [address]: Property Management Coordinator/Marketing Operations Manager [id number] for MILDRED RUDOLPH POCT-GLUCOSE [id number] 12:07:00 Test Item Value Reference Range Comments POC-GLUCOSE METER (BEAKER) 124 mg/dL 70-110 : TESTED AT [address] (test fqem=6247) [facility], [address]: Property Management Coordinator/Marketing Operations Manager [id number] for MILDRED RUDOLPH POCT-GLUCOSE [id number] 08:04:00 Test Item Value Reference Range Comments POC-GLUCOSE METER (BEAKER) 147 mg/dL 70-110 : TESTED AT [address] (test wzxq=9704) [facility], [id number]: Property Management Coordinator/Marketing Operations Manager [id number] for MILDRED RUDOLPH [id number] 05:49:00 Test Item Value Reference Range Comments PHOSPHORUS (BEAKER) (test lpgi=827) 3.7 mg/dL 2.3-4.7 Property Management Coordinator ID - VARSHA [id number] 05:49:00 Test Item Value Reference Range Comments MAGNESIUM (BEAKER) (test rqig=645) 2.0 mg/dL 1.6-2.6 Property Management Coordinator ID - VARSHA MBASIC METABOLIC [id number] 05:49:00 Test Item Value Reference Range Comments SODIUM (BEAKER) (test 141 meq/L 136-145 zloo=568) POTASSIUM (BEAKER) (test 3.5 meq/L 3.5-5.1 rgej=210) CHLORIDE (BEAKER) (test 108 meq/L 98-107 syjw=622) CO2 (BEAKER) (test 29 meq/L 22-29 alfp=507) BLOOD UREA NITROGEN 10 mg/dL 7-21 (BEAKER) (test duwa=242) CREATININE (BEAKER) (test 0.56 mg/dL 0.57-1.25 efdk=426) GLUCOSE RANDOM (BEAKER) 115 mg/dL 70-105 (test kyhw=860) CALCIUM (BEAKER) (test 8.8 mg/dL 8.4-10.2 hiwx=734) EGFR (BEAKER) (test 110 mL/min/1.73 sq m ESTIMATED GFR IS NOT fpnc=5787) ACCURATE CREATININE CLEARANCE IN PREDICTING GLOMERULAR FILTRATION RATE. ESTIMATED GFR IS NOT APPLICABLE FOR DIALYSIS PATIENTS. Property Management Coordinator ID - VARSHA MPOCT-GLUCOSE [id number] 21:18:00 Test Item Value Reference Range Comments POC-GLUCOSE METER (BEAKER) 133 mg/dL 70-110 : TESTED AT [address] (test dnhe=4358) [facility], [address]: Property Management Coordinator/Marketing Operations Manager [id number] for DANIELLE KSIER POCT-GLUCOSE [id number] 17:21:00 Test Item Value Reference Range Comments POC-GLUCOSE METER (BEAKER) 113 mg/dL 70-110 : TESTED AT [address] (test fubq=7829) [facility], [address]: Property Management Coordinator/Marketing Operations Manager [id number] for MILDRED RUDOLPH POCT-GLUCOSE [id number] 12:13:00 Test Item Value Reference Range Comments POC-GLUCOSE METER (BEAKER) 95 mg/dL 70-110 : TESTED AT [address] (test foff=3819) [facility], [address]: Property Management Coordinator/Marketing Operations Manager [id number] for FAINA OSULLIVAN POCT-GLUCOSE [id number] 08:03:00 Test Item Value Reference Range Comments POC-GLUCOSE METER (BEAKER) 140 mg/dL 70-110 : TESTED AT [address] (test zurx=2769) [facility], [address]: Property Management Coordinator/Marketing Operations Manager [id number] for FAINA OSULLIVAN [id number] 06:24:00 Test Item Value Reference Range Comments PHOSPHORUS (BEAKER) (test lzoj=503) 3.9 mg/dL 2.3-4.7 Property Management Coordinator ID Sheridan SCHMITT [id number] 06:24:00 Test Item Value Reference Range Comments MAGNESIUM (BEAKER) (test oggo=054) 2.0 mg/dL 1.6-2.6 Property Management Coordinator ID Sheridan SCHMITT LBASIC METABOLIC [id number] 06:24:00 Test Item Value Reference Range Comments SODIUM (BEAKER) (test 140 meq/L 136-145 balo=038) POTASSIUM (BEAKER) (test 3.4 meq/L 3.5-5.1 qcze=240) CHLORIDE (BEAKER) (test 106 meq/L 98-107 nrgh=861) CO2 (BEAKER) (test 28 meq/L 22-29 ncti=177) BLOOD UREA NITROGEN 11 mg/dL 7-21 (BEAKER) (test tusd=334) CREATININE (BEAKER) (test 0.60 mg/dL 0.57-1.25 ciog=135) GLUCOSE RANDOM (BEAKER) 113 mg/dL 70-105 (test bief=986) CALCIUM (BEAKER) (test 8.7 mg/dL 8.4-10.2 ubgj=684) EGFR (BEAKER) (test 101 mL/min/1.73 sq m ESTIMATED GFR IS NOT emjb=7505) ACCURATE CREATININE CLEARANCE IN PREDICTING GLOMERULAR FILTRATION RATE. ESTIMATED GFR IS NOT APPLICABLE FOR DIALYSIS PATIENTS. Property Management Coordinator ID - PIAYA LPOCT-GLUCOSE [id number] 21:28:00 Test Item Value Reference Range Comments POC-GLUCOSE METER (BEAKER) 137 mg/dL 70-110 : TESTED AT [address] (test zwrk=7993) [facility], [address]: Property Management Coordinator/Marketing Operations Manager [id number] for CLEVELAND TORRES POCT-GLUCOSE [id number] 17:51:00 Test Item Value Reference Range Comments POC-GLUCOSE METER (BEAKER) 115 mg/dL 70-110 : TESTED AT [address] (test odaz=8672) [facility], [address]: Property Management Coordinator/Marketing Operations Manager [id number] for WELSH, ERANDY POCT-GLUCOSE [id number] 12:30:00 Test Item Value Reference Range Comments POC-GLUCOSE METER (BEAKER) 98 mg/dL 70-110 : TESTED AT [address] (test ldjs=6010) [facility], [address]: Property Management Coordinator/Marketing Operations Manager [id number] for WELSH, ERANDY POCT-GLUCOSE [id number] 07:42:00 Test Item Value Reference Range Comments POC-GLUCOSE METER (BEAKER) 88 mg/dL 70-110 : TESTED AT [address] (test ilal=5945) [facility], [address]: Property Management Coordinator/Marketing Operations Manager [id number] for INDIRA WELSH [id number] 06:09:00 Test Item Value Reference Range Comments PHOSPHORUS (BEAKER) (test oxnc=602) 3.7 mg/dL 2.3-4.7 Property Management Coordinator ID - KESHIA [id number] 06:09:00 Test Item Value Reference Range Comments MAGNESIUM (BEAKER) (test zkif=775) 1.9 mg/dL 1.6-2.6 Property Management Coordinator ID - WILFRIDYANELY LBASIC METABOLIC [id number] 06:09:00 Test Item Value Reference Range Comments SODIUM (BEAKER) (test 140 meq/L 136-145 puoo=425) POTASSIUM (BEAKER) (test 3.6 meq/L 3.5-5.1 btwh=119) CHLORIDE (BEAKER) (test 105 meq/L 98-107 zycc=484) CO2 (BEAKER) (test 28 meq/L 22-29 qjlb=005) BLOOD UREA NITROGEN 10 mg/dL 7-21 (BEAKER) (test uqyk=954) CREATININE (BEAKER) (test 0.57 mg/dL 0.57-1.25 srzu=088) GLUCOSE RANDOM (BEAKER) 122 mg/dL 70-105 (test qlgq=369) CALCIUM (BEAKER) (test 8.7 mg/dL 8.4-10.2 ebof=988) EGFR (BEAKER) (test 107 mL/min/1.73 sq m ESTIMATED GFR IS NOT wdku=7692) ACCURATE CREATININE CLEARANCE IN PREDICTING GLOMERULAR FILTRATION RATE. ESTIMATED GFR IS NOT APPLICABLE FOR DIALYSIS PATIENTS. Property Management Coordinator ID - WILFRIDYANELY LPOCT-GLUCOSE [id number] 21:34:00 Test Item Value Reference Range Comments POC-GLUCOSE METER (BEAKER) 122 mg/dL 70-110 : TESTED AT [address] (test tbdi=8582) [facility], [address]: Property Management Coordinator/Marketing Operations Manager [id number] for CLEVELAND TORRES POCT-GLUCOSE [id number] 17:18:00 Test Item Value Reference Range Comments POC-GLUCOSE METER (BEAKER) 139 mg/dL 70-110 : TESTED AT [address] (test pxaw=6890) [facility], [address]: Property Management Coordinator/Marketing Operations Manager [id number] for INDIRA WELSH POCT-GLUCOSE [id number] 12:23:00 Test Item Value Reference Range Comments POC-GLUCOSE METER (BEAKER) 78 mg/dL 70-110 : TESTED AT [facility] [address] [facility] (test qbdy=3041) [facility], [address]: Property Management Coordinator/Marketing Operations Manager [id number] for INDIRA WELSH POCT-GLUCOSE [id number] 07:53:00 Test Item Value Reference Range Comments POC-GLUCOSE METER (BEAKER) 120 mg/dL 70-110 : TESTED AT [facility] [address] [facility] (test pfyi=9448) [facility], [address]: Property Management Coordinator/Marketing Operations Manager [id number] for INDIRA WELSH [id number] 05:52:00 Test Item Value Reference Range Comments PHOSPHORUS (BEAKER) (test arvp=042) 4.0 mg/dL 2.3-4.7 Property Management Coordinator ID - VARSHA [id number] 05:52:00 Test Item Value Reference Range Comments MAGNESIUM (BEAKER) (test nyqk=362) 2.0 mg/dL 1.6-2.6 Property Management Coordinator ID - VARSHA MBASIC METABOLIC [id number] 05:52:00 Test Item Value Reference Range Comments SODIUM (BEAKER) (test 139 meq/L 136-145 xzrv=059) POTASSIUM (BEAKER) (test 3.8 meq/L 3.5-5.1 xtuo=647) CHLORIDE (BEAKER) (test 106 meq/L 98-107 xbfn=701) CO2 (BEAKER) (test 27 meq/L 22-29 plrs=486) BLOOD UREA NITROGEN 9 mg/dL 7-21 (BEAKER) (test nklc=237) CREATININE (BEAKER) (test 0.64 mg/dL 0.57-1.25 jueq=123) GLUCOSE RANDOM (BEAKER) 116 mg/dL 70-105 (test zvkx=374) CALCIUM (BEAKER) (test 8.9 mg/dL 8.4-10.2 iydm=092) EGFR (BEAKER) (test 94 mL/min/1.73 sq m ESTIMATED GFR IS NOT imyb=4761) ACCURATE CREATININE CLEARANCE IN PREDICTING GLOMERULAR FILTRATION RATE. ESTIMATED GFR IS NOT APPLICABLE FOR DIALYSIS PATIENTS. Property Management Coordinator ID - VARSHA MPROTHROMBIN TIME/[id number] 05:51:00 Test Item Value Reference Range Comments PROTIME (BEAKER) (test tczf=133) 12.8 seconds 11.9-14.2 INR (BEAKER) (test myov=626) 1.0 <=5.9 Effective 01/25/2019: PT Reference Range ChangeNew: 11.9-14.2 Previous: 11.7- 14.7RECOMMENDED COUMADIN/WARFARIN INR THERAPY RANGESSTANDARD DOSE: 2.0-3.0 Includes: PROPHYLAXIS for venous thrombosis, systemic embolization; TREATMENT for venous thrombosis and/or pulmonary embolus.HIGH RISK: Target INR is2.5-3.5 for patients wiht mechanical heart valves.PT/[id number] 05:51:00 Test Item Value Reference Range Comments PROTIME (BEAKER) (test aokl=342) 12.8 seconds 11.9-14.2 INR (BEAKER) (test hqqr=026) 1.0 <=5.9 PARTIAL THROMBOPLASTIN TIME (BEAKER) (test 28.5 seconds 22.5-36.0 qlia=162) Effective 01/25/2019: PT Reference Range ChangeNew: 11.9-14.2 Previous: 11.7- 14.7RECOMMENDED COUMADIN/WARFARIN INR THERAPY RANGESSTANDARD DOSE: 2.0-3.0 Includes: PROPHYLAXIS for venous thrombosis, systemic embolization; TREATMENT for venous thrombosis and/or pulmonary embolus.HIGH RISK: Target INR is2.5-3.5 for patients wiht mechanical heart valves.CBC (HEMOGRAM ONLY)2019-11-18 05:25:00 Test Item Value Reference Range Comments WHITE BLOOD CELL COUNT (BEAKER) (test bcrq=430) 4.5 K/ L 3.5-10.5 RED BLOOD CELL COUNT (BEAKER) (test bpyd=456) 3.17 M/ L 3.93-5.22 HEMOGLOBIN (BEAKER) (test drzh=656) 11.0 GM/DL 11.2-15.7 HEMATOCRIT (BEAKER) (test leto=745) 33.3 % 34.1-44.9 MEAN CORPUSCULAR VOLUME (BEAKER) (test vabd=692) 105.0 fL 79.4-94.8 MEAN CORPUSCULAR HEMOGLOBIN (BEAKER) (test 34.7 pg 25.6-32.2 rzda=971) MEAN CORPUSCULAR HEMOGLOBIN CONC (BEAKER) (test 33.0 GM/DL 32.2-35.5 olbo=612) RED CELL DISTRIBUTION WIDTH (BEAKER) (test 14.9 % 11.7-14.4 zljk=928) PLATELET COUNT (BEAKER) (test xjmw=075) 176 K/CU MM 150-450 MEAN PLATELET VOLUME (BEAKER) (test ilnp=039) 8.8 fL 9.4-12.3 NUCLEATED RED BLOOD CELLS (BEAKER) (test 0 /100 WBC 0-0 pinx=864) POCT-GLUCOSE [id number] 21:17:00 Test Item Value Reference Range Comments POC-GLUCOSE METER (BEAKER) 152 mg/dL 70-110 : TESTED AT [address] (test cegh=6618) [facility], [address]: Property Management Coordinator/Marketing Operations Manager [id number] for CLEVELAND TORRES POCT-GLUCOSE [id number] 11:38:00 Test Item Value Reference Range Comments POC-GLUCOSE METER (BEAKER) 111 mg/dL 70-110 : TESTED AT [address] (test gzpx=7705) [facility], [address]: Property Management Coordinator/Marketing Operations Manager [id number] for FREDISYENNY B-TYPE NATRIURETIC FACTOR (BNP)2019-11-16 11:10:00 Test Item Value Reference Range Comments B-TYPE NATRIURETIC PEPTIDE (BEAKER) (test 157 pg/mL 0-100 qsyh=733) Property Management Coordinator ID - AAHAMIDCOMPREHENSIVE METABOLIC [id number] 11:05:00 Test Item Value Reference Range Comments TOTAL PROTEIN (BEAKER) 6.5 gm/dL 6.0-8.3 (test qutp=685) ALBUMIN (BEAKER) (test 3.7 g/dL 3.5-5.0 jpkv=2558) ALKALINE PHOSPHATASE 113 U/L 40-150 (BEAKER) (test rzky=400) BILIRUBIN TOTAL (BEAKER) 0.4 mg/dL 0.2-1.2 (test dcpe=821) SODIUM (BEAKER) (test 137 meq/L 136-145 zddk=370) POTASSIUM (BEAKER) (test 4.0 meq/L 3.5-5.1 hats=945) CHLORIDE (BEAKER) (test 103 meq/L 98-107 ctks=317) CO2 (BEAKER) (test 27 meq/L 22-29 fcnt=843) BLOOD UREA NITROGEN 7 mg/dL 7-21 (BEAKER) (test alef=617) CREATININE (BEAKER) (test 0.66 mg/dL 0.57-1.25 cmbe=636) GLUCOSE RANDOM (BEAKER) 118 mg/dL 70-105 (test vzoe=460) CALCIUM (BEAKER) (test 8.7 mg/dL 8.4-10.2 rhyc=499) AST (SGOT) (BEAKER) (test 28 U/L 5-34 qgrh=681) ALT (SGPT) (BEAKER) (test 26 U/L 6-55 rbfx=268) EGFR (BEAKER) (test 91 mL/min/1.73 sq m ESTIMATED GFR IS NOT xnjf=2395) ACCURATE CREATININE CLEARANCE IN PREDICTING GLOMERULAR FILTRATION RATE. ESTIMATED GFR IS NOT APPLICABLE FOR DIALYSIS PATIENTS. Property Management Coordinator ID - AAHAMIDPROTHROMBIN TIME/[id number] 10:50:00 Test Item Value Reference Range Comments PROTIME (BEAKER) (test yqmf=646) 12.5 seconds 11.9-14.2 INR (BEAKER) (test lewn=365) 1.0 <=5.9 Effective 01/25/2019: PT Reference Range ChangeNew: 11.9-14.2 Previous: 11.7- 14.7RECOMMENDED COUMADIN/WARFARIN INR THERAPY RANGESSTANDARD DOSE: 2.0-3.0 Includes: PROPHYLAXIS for venous thrombosis, systemic embolization; TREATMENT for venous thrombosis and/or pulmonary embolus.HIGH RISK: Target INR is2.5-3.5 for patients wiht mechanical heart valves.CBC W/PLT COUNT & AUTO [id number] 10:44:00 Test Item Value Reference Range Comments WHITE BLOOD CELL COUNT (BEAKER) (test zhkk=090) 6.8 K/ L 3.5-10.5 RED BLOOD CELL COUNT (BEAKER) (test ijea=966) 3.40 M/ L 3.93-5.22 HEMOGLOBIN (BEAKER) (test opsb=776) 11.7 GM/DL 11.2-15.7 HEMATOCRIT (BEAKER) (test ibdn=240) 35.5 % 34.1-44.9 MEAN CORPUSCULAR VOLUME (BEAKER) (test vuah=208) 104.4 fL 79.4-94.8 MEAN CORPUSCULAR HEMOGLOBIN (BEAKER) (test 34.4 pg 25.6-32.2 melu=938) MEAN CORPUSCULAR HEMOGLOBIN CONC (BEAKER) (test 33.0 GM/DL 32.2-35.5 auep=466) RED CELL DISTRIBUTION WIDTH (BEAKER) (test 14.8 % 11.7-14.4 ddlv=751) PLATELET COUNT (BEAKER) (test jzak=090) 213 K/CU MM 150-450 MEAN PLATELET VOLUME (BEAKER) (test bfyc=585) 8.6 fL 9.4-12.3 NUCLEATED RED BLOOD CELLS (BEAKER) (test 0 /100 WBC 0-0 staq=809) NEUTROPHILS RELATIVE PERCENT (BEAKER) (test 81 % ubyd=476) LYMPHOCYTES RELATIVE PERCENT (BEAKER) (test 8 % vjvo=892) MONOCYTES RELATIVE PERCENT (BEAKER) (test 9 % nwhr=403) EOSINOPHILS RELATIVE PERCENT (BEAKER) (test 1 % nwiy=391) BASOPHILS RELATIVE PERCENT (BEAKER) (test 0 % sskh=225) NEUTROPHILS ABSOLUTE COUNT (BEAKER) (test 5.47 K/ L 1.56-6.13 zmji=563) LYMPHOCYTES ABSOLUTE COUNT (BEAKER) (test 0.55 K/ L 1.18-3.74 inhc=427) MONOCYTES ABSOLUTE COUNT (BEAKER) (test 0.61 K/ L 0.24-0.36 phxy=194) EOSINOPHILS ABSOLUTE COUNT (BEAKER) (test 0.06 K/ L 0.04-0.36 fudv=938) BASOPHILS ABSOLUTE COUNT (BEAKER) (test 0.02 K/ L 0.01-0.08 bswu=720) IMMATURE GRANULOCYTES-RELATIVE PERCENT (BEAKER) 1 % 0-1 (test heue=5027) POCT-GLUCOSE [id number] 08:18:00 Test Item Value Reference Range Comments POC-GLUCOSE METER (BEAKER) 141 mg/dL 70-110 : TESTED AT [facility] [address] [place] [address] (test dogt=2678) [facility], [address]: Property Management Coordinator/Marketing Operations Manager [id number] for MURTAZA NASH POCT-GLUCOSE [id number] 22:29:00 Test Item Value Reference Range Comments POC-GLUCOSE METER (BEAKER) 172 mg/dL 70-110 : TESTED AT [facility] [address] [facility] (test efxh=5251) [facility], [address]: Property Management Coordinator/Marketing Operations Manager [id number] for CHEPE DUPREE POCT-GLUCOSE [id number] 18:30:00 Test Item Value Reference Range Comments POC-GLUCOSE METER (BEAKER) 176 mg/dL 70-110 : TESTED AT [facility] [address] [facility] (test xviz=5802) [facility], [address]: Property Management Coordinator/Marketing Operations Manager [id number] for MURTAZA NASH BONE AND/OR JOINT IMAGING, WHOLE [id number] 16:33:00FINAL REPORT PROCEDURE: BONE SCAN, WHOLE BODY CPT CODE: 17164 INDICATION: Lung cancer PROTOCOL: 21.5 mCi of Tc-99m MDP was injected intravenously. Whole body and selected spot images were obtained approximately 3 hours later. FINDINGS: Tracer activity is diffusely moderately increased within the calvarium. There is thoracolumbar kyphoscoliosis. Distribution within the spine is irregular with greater increase in the mid and lower lumbar region. Focal increase is also noted in the right wrist and to a lesser degree's shoulders, sternoclavicular joints, and feet. IMPRESSION: 1. No specific evidence of bony neoplastic disease.2. Kyphoscoliosis and degenerative changes within the spine. Degenerative disease is noted as well in peripheral joints.3. Benign hyperostosis of the skull. Images for comparison/ correlation were recent chest CT. Signed: Tito Boone MDReport Verified Date/ Time: 11/03/2019 16:33:30 Reading Location: [address] Reading Room CT, CTA [id number] 16:18:00Addendum BeginsREPORT STATUS:A I have reviewed the study for nonvascular components. I agree with the nonvascular findings as described. Additional observations are described below: There is left apical lung scarring. This could be a result of old granulomatous disease. A large right upper lobe mass with spiculated/lobulated border, internal calcifications and possible invasionof the anterior chest wall is noted again as described. It measures approximately 3.5 cm AP by 3.8 cm transverse by 5 cm craniocaudad and is worrisome for primary lung cancer. There is central necrosis. There is no significant mediastinal or hilar lymphadenopathy. There is no evidence of lesions in the adrenal glands or liver. There is presence of bilateral diffuse centrilobular type emphysema. The gallbladder is thick walled. At one point it measures 4 mm. There is diffuse wall enhancement. There is presence of a calcified large calculus in the gallbladder. This is worrisome. Further evaluation ofthe gallbladder is recommended with an ultrasound examination. There is dilatation of the common bile duct. Just above the pancreatic head measures approximately 11 mm. There is no apparent obstructivelesion or calculus seen on this examination. Further evaluation should be performed. The gallbladderand the biliary tree can be evaluated best via MRCP examination. There is high density cystic area in the middle pole of the right kidney. This is entirely intramural renal. It measures approximately 2x 2 centimeters. It shows significant contrast enhancement. Precontrast attenuation is 41. Post contrast attenuation value is 72. This is also worrisome. A urological consultation is requested. The study is not optimal for evaluation of the bowel. The cecum and especially the ascending colon appears thick-walled. This is abnormal. The patient has a history of colonic malignancy. Correlation with the clinical history or further evaluation of the ascending colon is recommended. The patient appears to be status post hysterectomy and bilateral salpingo-oophorectomy. Signed: David Mirandaeport Verified Date/Time: 11/03/2019 16:18:17 Reading Location: [facility] P048 Angio Body Reading RoomAddendum EndsFINAL REPORT CT angiography of the thoracoabdominal aorta and pelvic arteries, 02 November 2019 INDICATION: This is a 64 year old female with a diagnosis of aortic stenosis, presents for preprocedure TAVR assessment. TECHNIQUE: Spiral acquisition before and during intravenous contrast administration using a Rich multidetector CT scanner. Images were obtained before and during the dynamic passage of intravenous contrast material. Multi-planar 3-D volume-rendering reconstruction was performed using an independent workstation interactively by the interpreting physician as well as the 3-D specialist for optimal visualisation of the thoracoabdominal aorta, the pelvic arteriesas well as its proximal branches. Please refer to the contrast sheet scanned in the EPIC system for the amount and route of contrast given. This exam was performed according to our departmental dose-optimisation programme, which includes automated exposure control, adjustment of the mA and/or kV according to patient size and/or use of iterative reconstruction technique. Dose modulation, iterative reconstruction, and/or weight based adjustment of the mA/kV was utilized to reduce the radiation dose toas low as reasonably achievable. FINDINGS: VASCULAR: A central venous catheter is identified, with tip identified in the right atrial level. No pericardial effusion is identified. The central pulmonary artery is normal in calibre. The cardiac chambers demonstrate normal atrioventricular and ventriculoarterial concordance, and systemic and pulmonary venous return. The left ventricle is normal in size. No mitral annular calcification is identified. Left atrial size appears to be unremarkable. 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 Coronary artery origins are normal. Calcification is identifiedin the proximal and mid LAD, proximal LCx. Patient has a diagnosis of aortic stenosis. The aortic valve appears to be bicuspid. Correlate with echocardiography. The aortic Agatston score is 3000. Theaortic valve area is 92 mm2. The location of aortic valvular calcification can be seen in reformatted data set sent to PACS. Regarding the aorta, the aortic root is free of calcification. The ascendingthoracic aorta, is also free of calcification. Mild calcification is seen in the transverse arch anddescending thoracic aorta. In the abdominal aorta, scattered calcification is identified. No ectasiaor aneurysmal dilation is seen. There is no evidence of acute aortic pathology, specifically, there is no dissection, intramural hematoma, or contained rupture. The arch vessel branching pattern is normal and the visualised arch vessels are widely patent proximally. The left subclavian artery, has mild calcification identified at its takeoff and is widely patent. At image 20, it measures 6 mm in diameter. The right subclavian artery also has mild calcification identified. At image 13, it measures 5.7 mm in diameter. There are single left and right renal arteries that are widely patent. The coeliacaxis, SMA, and RE are widely patent. The common iliac, external iliac, common femoral, and the visualised superficial femoral arteries , bilaterally, are widely patent, with nonobstructive calcification, seen predominantly in the common iliac level. Dimensions that may be helpful for TAVR as follows: There is no calcification seen in the aortic root/ascending thoracic aorta. The major and minor aortic annulus diameter measures 26.9 and 20.9 mm, respectively. The aortic annulus perimeter measured 76 mm and the cross -sectional area measures 436 mm2. The aortic annulus diameter at the traditional LVOT and coronal LVOT measures 21.9 and 23.1 mm, respectively. For reference purpose, per [employer] S3 brochure, recommendation are as follows: CT area between 273 to 345 mm2 (20 mm valve); 338 to 430 mm2 (23 mm valve); 430 to 546 mm2 (26 mm valve); 540 to 683 mm2 (29 mm valve). For reference purpose, per CoreValve Evolut R brochure, recommendation are as follows: CT perimeter between 56.5-62.8 mm (23 mm valve); 62.8-72.3 mm (26 mm valve); 72.3-81.7 mm ( 29 mm valve); and 81.7-94.2. mm (34 mm valve). For reference purpose, per Anali Edge brochure, recommendation are as follows: 23mm valve is recommended for CT perimeter between 62.8-72.3 mm; diameter between 20-23 mm; or area between 314- 415.5 mm2. For 25mm valve, it is recommended for CT perimeter between 72.3-78.5 mm; diameter between 23-25 mm; or area between 415.5-490.9 mm2. For 27mm valve , it is recommended for CT perimeter between 78.5-84.8 mm;diameter between 25- 27 mm; or area between 490.9-572.6 mm2. Agatston Score is 3000. The aortic valve area is 92. The distance between the take off of the RCA and the annulus (systole): 10.1 mmThe distance between the take off of the LM1 and the annulus (systole): 10.4 mm Sinus of Valsalva orthogonal no diameter, measured in systole, is approximately 29.9 x 34.4 mm. The sinotubular junction measures, 31.6 x 30.5 mm. The aortic root angulation measures 37.5 degrees. The minimal and perpendicular abdominal aortic diameter measure 11.1 and 14.4 mm, respectively. There is no evidence of thoracoabdominal aortic aneurysm or stent placement present. The minimum and the perpendicular left common iliac artery measures 6.7 and 6.8 mm, respectively with mild tortuosity and mild calcific atherosclerosis present. The minimum and the perpendicular left external iliac artery measures 6.1 and 6.2 mm, respectively with minimal tortuosity and no calcific atherosclerosis present. The minimum and the perpendicular left femoral artery measures 70 and 7.5 mm, respectively with no tortuosity and no calcific atherosclerosis present. The minimum and the perpendicular right common iliac artery measures 6.7and 7.0 mm, respectively with mild tortuosity and mild calcific atherosclerosis present. The minimum and the perpendicular right external iliac artery measures 5.2 and 6.1 mm, respectively with minimal tortuosity and no calcific atherosclerosis present. The minimum and the perpendicular right femoral artery measures 7.3 and 7.5 mm, respectively with minimal tortuosity and no calcific atherosclerosis present. NON-VASCULAR: The visualised thyroid gland is unremarkable. The chest wall and mediastinum appear normal ; no significant adenopathy is identified. In fact, patient only has a formal chest CT scan performed a few days ago by the Hand Cutter Apprentice Radiologist. Refer to formal dictation for details, specifically, there is diffuse emphysematous changes, as well as a right upper lobe mass at image 61, measuring at least 3.9 x 3.6 cm in diameter with irregular margin, concern for lung malignancy.Correlate clinically. In the abdomen, the liver and spleen appears unremarkable. The liver edge is smooth. No abnormal enhancing structure is identified. The gallbladder wall is contracted and small gallstones are seen. No biliary ductal dilation is identified. The adrenal glands are not enlarged. The pancreas appears unremarkable. No acute renal pathology is seen and no hydronephrosis or perirenal fluid collection is identified. Small nonobstructive renal stone is identified in the left kidney, at image 69, measure 2 to 3 mm in diameter. In addition, in the posterior aspect of the right kidney,at image 335, a hypodensity is seen, that measure 1.7 x 1.9 cm in diameter. There appears to be enhancement noted after contrast administration. An addendum will be dictated thereafter, for optimal recommendation. Bowel is not well assessed by CT angiography as enteric contrast is not given. No obvious by dilation is identified. No free air is identified abdomen and pelvis. Trace free fluid is identified in the dependent portion of the pelvis. No significant retroperitoneal adenopathy is identified.In the bony windows, no acute bony pathology is identified. However, degenerative changes is noted. No obvious blastic or lytic lesions identified. However, at L3 and L4 level, potential degenerative changes is noted. In fact, a total body bone/joint imaging has been arranged. CONCLUSIONS: 1. Patient has a diagnosis of aortic stenosis. The aortic valve appears to be bicuspid. Correlate with echocardiography. The aortic Agatston Score is 3000 and aortic valve area is 92 mm2. No mitral annular calcification is identified. There is no calcification seen in the ascending thoracic aorta. Dimensions that may be helpful for TAVR as described above. 2. Coronary artery origins are normal. Scattered calcification is seen in the LAD and LCx territories. 3. Pulmonary findings has been described in formal CT scan a few days ago. Refer to formal CT report by Hand Cutter Apprentice Radiologist for details. Pertinentfindings include emphysematous changes as well as lung mass identified in the right upper lobe measure at least 3.9 x 3.6 cm with regular margin. Lung malignancy. 4. Other findings as described above.A hypodensity is identified in the posterior aspect of the right kidney that may demonstrate some enhancement. 5. An addendum will be dictated regarding the non-vascular findings by the Hand Cutter Apprentice Radiologist. Signed: Ricardo Broussard MDReport Verified Date/Time: 11/03/2019 07:39:57 CT, CTA , [id number] 16:18:00Addendum BeginsREPORT STATUS:A I have reviewed the study for nonvascular components. I agree with the nonvascular findings as described. Additional observations are described below: There is left apical lung scarring. This could be a result of old granulomatous disease. A large right upper lobe mass with spiculated/lobulated border, internal calcifications and possible invasionof the anterior chest wall is noted again as described. It measures approximately 3.5 cm AP by 3.8 cm transverse by 5 cm craniocaudad and is worrisome for primary lung cancer. There is central necrosis. There is no significant mediastinal or hilar lymphadenopathy. There is no evidence of lesions in the adrenal glands or liver. There is presence of bilateral diffuse centrilobular type emphysema. The gallbladder is thick walled. At one point it measures 4 mm. There is diffuse wall enhancement. There is presence of a calcified large calculus in the gallbladder. This is worrisome. Further evaluation ofthe gallbladder is recommended with an ultrasound examination. There is dilatation of the common bile duct. Just above the pancreatic head measures approximately 11 mm. There is no apparent obstructivelesion or calculus seen on this examination. Further evaluation should be performed. The gallbladderand the biliary tree can be evaluated best via MRCP examination. There is high density cystic area in the middle pole of the right kidney. This is entirely intramural renal. It measures approximately 2x 2 centimeters. It shows significant contrast enhancement. Precontrast attenuation is 41. Post contrast attenuation value is 72. This is also worrisome. A urological consultation is requested. The study is not optimal for evaluation of the bowel. The cecum and especially the ascending colon appears thick-walled. This is abnormal. The patient has a history of colonic malignancy. Correlation with the clinical history or further evaluation of the ascending colon is recommended. The patient appears to be status post hysterectomy and bilateral salpingo-oophorectomy. Signed: David Miranda MDReport Verified Date/Time: 11/03/2019 16:18:17 Reading Location: [place] [address] Angio Body Reading RoomAddendum EndsFINAL REPORT CT angiography of the thoracoabdominal aorta and pelvic arteries, 02 November 2019 INDICATION: This is a 64 year old female with a diagnosis of aortic stenosis, presents for preprocedure TAVR assessment. TECHNIQUE: Spiral acquisition before and during intravenous contrast administration using a Rich multidetector CT scanner. Images were obtained before and during the dynamic passage of intravenous contrast material. Multi-planar 3-D volume-rendering reconstruction was performed using an independent workstation interactively by the interpreting physician as well as the 3-D specialist for optimal visualisation of the thoracoabdominal aorta, the pelvic arteriesas well as its proximal branches. Please refer to the contrast sheet scanned in the EPIC system for the amount and route of contrast given. This exam was performed according to our departmental dose-optimisation programme, which includes automated exposure control, adjustment of the mA and/or kV according to patient size and/or use of iterative reconstruction technique. Dose modulation, iterative reconstruction, and/or weight based adjustment of the mA/kV was utilized to reduce the radiation dose toas low as reasonably achievable. FINDINGS: VASCULAR: A central venous catheter is identified, with tip identified in the right atrial level. No pericardial effusion is identified. The central pulmonary artery is normal in calibre. The cardiac chambers demonstrate normal atrioventricular and ventriculoarterial concordance, and systemic and pulmonary venous return. The left ventricle is normal in size. No mitral annular calcification is identified. Left atrial size appears to be unremarkable. 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 Coronary artery origins are normal. Calcification is identifiedin the proximal and mid LAD, proximal LCx. Patient has a diagnosis of aortic stenosis. The aortic valve appears to be bicuspid. Correlate with echocardiography. The aortic Agatston score is 3000. Theaortic valve area is 92 mm2. The location of aortic valvular calcification can be seen in reformatted data set sent to PACS. Regarding the aorta, the aortic root is free of calcification. The ascendingthoracic aorta, is also free of calcification. Mild calcification is seen in the transverse arch anddescending thoracic aorta. In the abdominal aorta, scattered calcification is identified. No ectasiaor aneurysmal dilation is seen. There is no evidence of acute aortic pathology, specifically, there is no dissection, intramural hematoma, or contained rupture. The arch vessel branching pattern is normal and the visualised arch vessels are widely patent proximally. The left subclavian artery, has mild calcification identified at its takeoff and is widely patent. At image 20, it measures 6 mm in diameter. The right subclavian artery also has mild calcification identified. At image 13, it measures 5.7 mm in diameter. There are single left and right renal arteries that are widely patent. The coeliacaxis, SMA, and RE are widely patent. The common iliac, external iliac, common femoral, and the visualised superficial femoral arteries , bilaterally, are widely patent, with nonobstructive calcification, seen predominantly in the common iliac level. Dimensions that may be helpful for TAVR as follows: There is no calcification seen in the aortic root/ascending thoracic aorta. The major and minor aortic annulus diameter measures 26.9 and 20.9 mm, respectively. The aortic annulus perimeter measured 76 mm and the cross -sectional area measures 436 mm2. The aortic annulus diameter at the traditional LVOT and coronal LVOT measures 21.9 and 23.1 mm, respectively. For reference purpose, per [employer] S3 brochure, recommendation are as follows: CT area between 273 to 345 mm2 (20 mm valve); 338 to 430 mm2 (23 mm valve); 430 to 546 mm2 (26 mm valve); 540 to 683 mm2 (29 mm valve). For reference purpose, per [employer]Valve Evolut R brochure, recommendation are as follows: CT perimeter between 56.5-62.8 mm (23 mm valve); 62.8-72.3 mm (26 mm valve); 72.3-81.7 mm ( 29 mm valve); and 81.7-94.2. mm (34 mm valve). For reference purpose, per [employer] brochure, recommendation are as follows: 23mm valve is recommended for CT perimeter between 62.8-72.3 mm; diameter between 20-23 mm; or area between 314- 415.5 mm2. For 25mm valve, it is recommended for CT perimeter between 72.3-78.5 mm; diameter between 23-25 mm; or area between 415.5-490.9 mm2. For 27mm valve , it is recommended for CT perimeter between 78.5-84.8 mm;diameter between 25- 27 mm; or area between 490.9-572.6 mm2. Agatston Score is 3000. The aortic valve area is 92. The distance between the take off of the RCA and the annulus (systole): 10.1 mmThe distance between the take off of the LM1 and the annulus (systole): 10.4 mm Sinus of Valsalva orthogonal no diameter, measured in systole, is approximately 29.9 x 34.4 mm. The sinotubular junction measures, 31.6 x 30.5 mm. The aortic root angulation measures 37.5 degrees. The minimal and perpendicular abdominal aortic diameter measure 11.1 and 14.4 mm, respectively. There is no evidence of thoracoabdominal aortic aneurysm or stent placement present. The minimum and the perpendicular left common iliac artery measures 6.7 and 6.8 mm, respectively with mild tortuosity and mild calcific atherosclerosis present. The minimum and the perpendicular left external iliac artery measures 6.1 and 6.2 mm, respectively with minimal tortuosity and no calcific atherosclerosis present. The minimum and the perpendicular left femoral artery measures 70 and 7.5 mm, respectively with no tortuosity and no calcific atherosclerosis present. The minimum and the perpendicular right common iliac artery measures 6.7and 7.0 mm, respectively with mild tortuosity and mild calcific atherosclerosis present. The minimum and the perpendicular right external iliac artery measures 5.2 and 6.1 mm, respectively with minimal tortuosity and no calcific atherosclerosis present. The minimum and the perpendicular right femoral artery measures 7.3 and 7.5 mm, respectively with minimal tortuosity and no calcific atherosclerosis present. NON-VASCULAR: The visualised thyroid gland is unremarkable. The chest wall and mediastinum appear normal ; no significant adenopathy is identified. In fact, patient only has a formal chest CT scan performed a few days ago by the Hand Cutter Apprentice Radiologist. Refer to formal dictation for details, specifically, there is diffuse emphysematous changes, as well as a right upper lobe mass at image 61, measuring at least 3.9 x 3.6 cm in diameter with irregular margin, concern for lung malignancy.Correlate clinically. In the abdomen, the liver and spleen appears unremarkable. The liver edge is smooth. No abnormal enhancing structure is identified. The gallbladder wall is contracted and small gallstones are seen. No biliary ductal dilation is identified. The adrenal glands are not enlarged. The pancreas appears unremarkable. No acute renal pathology is seen and no hydronephrosis or perirenal fluid collection is identified. Small nonobstructive renal stone is identified in the left kidney, at image 69, measure 2 to 3 mm in diameter. In addition, in the posterior aspect of the right kidney,at image 335, a hypodensity is seen, that measure 1.7 x 1.9 cm in diameter. There appears to be enhancement noted after contrast administration. An addendum will be dictated thereafter, for optimal recommendation. Bowel is not well assessed by CT angiography as enteric contrast is not given. No obvious by dilation is identified. No free air is identified abdomen and pelvis. Trace free fluid is identified in the dependent portion of the pelvis. No significant retroperitoneal adenopathy is identified.In the bony windows, no acute bony pathology is identified. However, degenerative changes is noted. No obvious blastic or lytic lesions identified. However, at L3 and L4 level, potential degenerative changes is noted. In fact, a total body bone/joint imaging has been arranged. CONCLUSIONS: 1. Patient has a diagnosis of aortic stenosis. The aortic valve appears to be bicuspid. Correlate with echocardiography. The aortic Agatston Score is 3000 and aortic valve area is 92 mm2. No mitral annular calcification is identified. There is no calcification seen in the ascending thoracic aorta. Dimensions that may be helpful for TAVR as described above. 2. Coronary artery origins are normal. Scattered calcification is seen in the LAD and LCx territories. 3. Pulmonary findings has been described in formal CT scan a few days ago. Refer to formal CT report by Hand Cutter Apprentice Radiologist for details. Pertinentfindings include emphysematous changes as well as lung mass identified in the right upper lobe measure at least 3.9 x 3.6 cm with regular margin. Lung malignancy. 4. Other findings as described above.A hypodensity is identified in the posterior aspect of the right kidney that may demonstrate some enhancement. 5. An addendum will be dictated regarding the non-vascular findings by the Hand Cutter Apprentice Radiologist. Signed: Ricardo Broussard MDReport Verified Date/Time: 11/03/2019 07:39:57 POCT- GLUCOSE [id number] 11:34:00 Test Item Value Reference Range Comments POC-GLUCOSE METER (BEAKER) 109 mg/dL 70-110 : TESTED AT [address] (test ulrn=6563) [facility], [id number]: Property Management Coordinator/Marketing Operations Manager [id number] for MURTAZA NASH POCT-GLUCOSE [id number] 08:10:00 Test Item Value Reference Range Comments POC-GLUCOSE METER (BEAKER) 115 mg/dL 70-110 : TESTED AT [address] (test sznx=0884) [facility], [address]: Property Management Coordinator/Marketing Operations Manager [id number] for MURTAZA NASH CBC W/PLT COUNT & AUTO [id number] 05:57:00 Test Item Value Reference Range Comments WHITE BLOOD CELL COUNT (BEAKER) (test otsj=610) 7.1 K/ L 3.5-10.5 RED BLOOD CELL COUNT (BEAKER) (test uawn=262) 3.24 M/ L 3.93-5.22 HEMOGLOBIN (BEAKER) (test ivep=785) 11.4 GM/DL 11.2-15.7 HEMATOCRIT (BEAKER) (test sufv=033) 34.2 % 34.1-44.9 MEAN CORPUSCULAR VOLUME (BEAKER) (test llja=791) 105.6 fL 79.4-94.8 MEAN CORPUSCULAR HEMOGLOBIN (BEAKER) (test 35.2 pg 25.6-32.2 fcgp=151) MEAN CORPUSCULAR HEMOGLOBIN CONC (BEAKER) (test 33.3 GM/DL 32.2-35.5 xpal=821) RED CELL DISTRIBUTION WIDTH (BEAKER) (test 16.0 % 11.7-14.4 dtbv=160) PLATELET COUNT (BEAKER) (test awzy=091) 221 K/CU MM 150-450 MEAN PLATELET VOLUME (BEAKER) (test ofax=725) 9.5 fL 9.4-12.3 NUCLEATED RED BLOOD CELLS (BEAKER) (test 0 /100 WBC 0-0 ygek=798) NEUTROPHILS RELATIVE PERCENT (BEAKER) (test 83 % zfxu=324) LYMPHOCYTES RELATIVE PERCENT (BEAKER) (test 7 % aphx=150) MONOCYTES RELATIVE PERCENT (BEAKER) (test 9 % qoyc=609) EOSINOPHILS RELATIVE PERCENT (BEAKER) (test 1 % hqdi=541) BASOPHILS RELATIVE PERCENT (BEAKER) (test 0 % ssnx=044) NEUTROPHILS ABSOLUTE COUNT (BEAKER) (test 5.87 K/ L 1.56-6.13 ohoe=727) LYMPHOCYTES ABSOLUTE COUNT (BEAKER) (test 0.52 K/ L 1.18-3.74 zrkt=755) MONOCYTES ABSOLUTE COUNT (BEAKER) (test 0.62 K/ L 0.24-0.36 huef=904) EOSINOPHILS ABSOLUTE COUNT (BEAKER) (test 0.04 K/ L 0.04-0.36 rjma=694) BASOPHILS ABSOLUTE COUNT (BEAKER) (test 0.01 K/ L 0.01-0.08 efwd=214) IMMATURE GRANULOCYTES-RELATIVE PERCENT (BEAKER) 0 % 0-1 (test jayv=8247) [id number] 05:13:00 Test Item Value Reference Range Comments PHOSPHORUS (BEAKER) (test pmmy=102) 3.4 mg/dL 2.3-4.7 Property Management Coordinator ID - KESHIA [id number] 05:13:00 Test Item Value Reference Range Comments MAGNESIUM (BEAKER) (test avvb=835) 2.0 mg/dL 1.6-2.6 Property Management Coordinator ID - PIAYA LCOMPREHENSIVE METABOLIC [id number] 05:13:00 Test Item Value Reference Range Comments TOTAL PROTEIN (BEAKER) 5.8 gm/dL 6.0-8.3 (test ihny=223) ALBUMIN (BEAKER) (test 3.2 g/dL 3.5-5.0 jhza=5118) ALKALINE PHOSPHATASE 97 U/L 40-150 (BEAKER) (test tgif=068) BILIRUBIN TOTAL (BEAKER) 0.4 mg/dL 0.2-1.2 (test boxg=045) SODIUM (BEAKER) (test 137 meq/L 136-145 mdag=946) POTASSIUM (BEAKER) (test 3.6 meq/L 3.5-5.1 fhcm=861) CHLORIDE (BEAKER) (test 107 meq/L 98-107 jvvm=163) CO2 (BEAKER) (test 23 meq/L 22-29 zwlg=215) BLOOD UREA NITROGEN 11 mg/dL 7-21 (BEAKER) (test cwxv=539) CREATININE (BEAKER) (test 0.54 mg/dL 0.57-1.25 rswe=400) GLUCOSE RANDOM (BEAKER) 134 mg/dL 70-105 (test gilj=489) CALCIUM (BEAKER) (test 8.7 mg/dL 8.4-10.2 onmv=865) AST (SGOT) (BEAKER) (test 21 U/L 5-34 orkb=589) ALT (SGPT) (BEAKER) (test 23 U/L 6-55 sqef=195) EGFR (BEAKER) (test 114 mL/min/1.73 sq ESTIMATED GFR IS NOT jrwm=2320) m ACCURATE CREATININE CLEARANCE IN PREDICTING GLOMERULAR FILTRATION RATE. ESTIMATED GFR IS NOT APPLICABLE FOR DIALYSIS PATIENTS. Property Management Coordinator ID - PIAYA LPOCT-GLUCOSE [id number] 22:07:00 Test Item Value Reference Range Comments POC-GLUCOSE METER (BEAKER) 157 mg/dL 70-110 : Notified RN/MD: TESTED AT (test zjnv=9083) [facility] [address] [facility], [address]: Property Management Coordinator/Marketing Operations Manager [id number] for CHEN JACK POCT-GLUCOSE [id number] 17:42:00 Test Item Value Reference Range Comments POC-GLUCOSE METER (BEAKER) 111 mg/dL 70-110 : TESTED AT [address] (test vwpg=9075) [facility], [address]: Property Management Coordinator/Marketing Operations Manager [id number] for YULIA SALAZAR POCT-GLUCOSE [id number] 13:32:00 Test Item Value Reference Range Comments POC-GLUCOSE METER (BEAKER) 125 mg/dL 70-110 : TESTED AT [address] (test putf=7184) [facility], [address]: Property Management Coordinator/Marketing Operations Manager [id number] for YULIA SALAZAR POCT-GLUCOSE [id number] 13:17:00 Test Item Value Reference Range Comments POC-GLUCOSE METER (BEAKER) 123 mg/dL 70-110 : Notified RN/MD: TESTED AT (test msiv=2532) [address], [address]: Property Management Coordinator/Marketing Operations Manager [id number] for MARCO BENAVIDEZ POCT-GLUCOSE [id number] 10:19:00 Test Item Value Reference Range Comments POC-GLUCOSE METER (BEAKER) 116 mg/dL 70-110 : TESTED AT [address] (test fjfq=2339) [facility], [address]: Property Management Coordinator/Marketing Operations Manager [id number] for MARCO BENAVIDEZ [id number] 05:40:00 Test Item Value Reference Range Comments PHOSPHORUS (BEAKER) (test yovg=892) 3.0 mg/dL 2.3-4.7 Property Management Coordinator ID - RAMIRO [id number] 05:40:00 Test Item Value Reference Range Comments MAGNESIUM (BEAKER) (test usin=577) 2.1 mg/dL 1.6-2.6 Property Management Coordinator ID - RAMIRO WCOMPREHENSIVE METABOLIC [id number] 05:40:00 Test Item Value Reference Range Comments TOTAL PROTEIN (BEAKER) 5.6 gm/dL 6.0-8.3 (test wuxy=807) ALBUMIN (BEAKER) (test 3.1 g/dL 3.5-5.0 ellp=2887) ALKALINE PHOSPHATASE 100 U/L 40-150 (BEAKER) (test sxtj=271) BILIRUBIN TOTAL (BEAKER) 0.2 mg/dL 0.2-1.2 (test plvs=476) SODIUM (BEAKER) (test 140 meq/L 136-145 vumh=408) POTASSIUM (BEAKER) (test 3.9 meq/L 3.5-5.1 fqup=464) CHLORIDE (BEAKER) (test 109 meq/L 98-107 qbva=793) CO2 (BEAKER) (test 25 meq/L 22-29 stey=400) BLOOD UREA NITROGEN 10 mg/dL 7-21 (BEAKER) (test gmrc=633) CREATININE (BEAKER) (test 0.57 mg/dL 0.57-1.25 gbix=510) GLUCOSE RANDOM (BEAKER) 162 mg/dL 70-105 (test lloc=032) CALCIUM (BEAKER) (test 8.6 mg/dL 8.4-10.2 garo=748) AST (SGOT) (BEAKER) (test 27 U/L 5-34 dkhk=678) ALT (SGPT) (BEAKER) (test 30 U/L 6-55 iuff=159) EGFR (BEAKER) (test 107 mL/min/1.73 sq ESTIMATED GFR IS NOT eknj=0553) m ACCURATE CREATININE CLEARANCE IN PREDICTING GLOMERULAR FILTRATION RATE. ESTIMATED GFR IS NOT APPLICABLE FOR DIALYSIS PATIENTS. Property Management Coordinator ID - RAMIRO WCBC W/PLT COUNT & AUTO [id number] 05:22:00 Test Item Value Reference Range Comments WHITE BLOOD CELL COUNT (BEAKER) (test cyik=877) 5.7 K/ L 3.5-10.5 RED BLOOD CELL COUNT (BEAKER) (test gjlu=616) 3.28 M/ L 3.93-5.22 HEMOGLOBIN (BEAKER) (test zpcw=886) 11.5 GM/DL 11.2-15.7 HEMATOCRIT (BEAKER) (test hidw=384) 35.1 % 34.1-44.9 MEAN CORPUSCULAR VOLUME (BEAKER) (test obtk=796) 107.0 fL 79.4-94.8 MEAN CORPUSCULAR HEMOGLOBIN (BEAKER) (test 35.1 pg 25.6-32.2 hswz=730) MEAN CORPUSCULAR HEMOGLOBIN CONC (BEAKER) (test 32.8 GM/DL 32.2-35.5 docq=352) RED CELL DISTRIBUTION WIDTH (BEAKER) (test 16.3 % 11.7-14.4 tzxa=872) PLATELET COUNT (BEAKER) (test kuws=485) 207 K/CU MM 150-450 MEAN PLATELET VOLUME (BEAKER) (test kxvg=319) 9.4 fL 9.4-12.3 NUCLEATED RED BLOOD CELLS (BEAKER) (test 0 /100 WBC 0-0 lvhc=746) NEUTROPHILS RELATIVE PERCENT (BEAKER) (test 79 % nysk=256) LYMPHOCYTES RELATIVE PERCENT (BEAKER) (test 10 % qmwn=572) MONOCYTES RELATIVE PERCENT (BEAKER) (test 10 % klzd=975) EOSINOPHILS RELATIVE PERCENT (BEAKER) (test 1 % dnnk=758) BASOPHILS RELATIVE PERCENT (BEAKER) (test 0 % dxxl=485) NEUTROPHILS ABSOLUTE COUNT (BEAKER) (test 4.53 K/ L 1.56-6.13 ndmp=827) LYMPHOCYTES ABSOLUTE COUNT (BEAKER) (test 0.55 K/ L 1.18-3.74 dntk=831) MONOCYTES ABSOLUTE COUNT (BEAKER) (test 0.56 K/ L 0.24-0.36 fzgu=155) EOSINOPHILS ABSOLUTE COUNT (BEAKER) (test 0.05 K/ L 0.04-0.36 hwyz=461) BASOPHILS ABSOLUTE COUNT (BEAKER) (test 0.01 K/ L 0.01-0.08 ifil=793) IMMATURE GRANULOCYTES-RELATIVE PERCENT (BEAKER) 1 % 0-1 (test ngxt=4876) POCT-GLUCOSE [id number] 22:30:00 Test Item Value Reference Range Comments POC-GLUCOSE METER (BEAKER) 173 mg/dL 70-110 : TESTED AT [address] (test bjba=9453) [facility], [id number]: Property Management Coordinator/Marketing Operations Manager [id number] for BIBIANA GALE POCT-GLUCOSE [id number] 13:31:00 Test Item Value Reference Range Comments POC-GLUCOSE METER (BEAKER) 187 mg/dL 70-110 : Notified RN/MD: TESTED AT (test sfgy=1011) [address], [id number]: Property Management Coordinator/Marketing Operations Manager [id number] for MARCO BENAVIDEZ POCT-GLUCOSE [id number] 06:37:00 Test Item Value Reference Range Comments POC-GLUCOSE METER (BEAKER) 130 mg/dL 70-110 : TESTED AT [address] (test ilfw=7381) [facility], [address]: Property Management Coordinator/Marketing Operations Manager [id number] for ISHAN CARMONA [id number] 06:06:00 Test Item Value Reference Range Comments PHOSPHORUS (BEAKER) (test laee=287) 3.8 mg/dL 2.3-4.7 Property Management Coordinator ID - RAMIRO [id number] 06:06:00 Test Item Value Reference Range Comments MAGNESIUM (BEAKER) (test tote=126) 2.1 mg/dL 1.6-2.6 Property Management Coordinator ID - RAMIRO WCOMPREHENSIVE METABOLIC [id number] 06:06:00 Test Item Value Reference Range Comments TOTAL PROTEIN (BEAKER) 5.6 gm/dL 6.0-8.3 (test vste=121) ALBUMIN (BEAKER) (test 3.1 g/dL 3.5-5.0 oplq=8194) ALKALINE PHOSPHATASE 104 U/L 40-150 (BEAKER) (test bljy=070) BILIRUBIN TOTAL (BEAKER) 0.4 mg/dL 0.2-1.2 (test spzh=620) SODIUM (BEAKER) (test 140 meq/L 136-145 jbfw=447) POTASSIUM (BEAKER) (test 3.6 meq/L 3.5-5.1 cecd=922) CHLORIDE (BEAKER) (test 107 meq/L 98-107 tdmd=942) CO2 (BEAKER) (test 28 meq/L 22-29 veyi=296) BLOOD UREA NITROGEN 7 mg/dL 7-21 (BEAKER) (test uhwl=530) CREATININE (BEAKER) (test 0.56 mg/dL 0.57-1.25 xgoh=913) GLUCOSE RANDOM (BEAKER) 126 mg/dL 70-105 (test uegj=411) CALCIUM (BEAKER) (test 8.9 mg/dL 8.4-10.2 atld=149) AST (SGOT) (BEAKER) (test 39 U/L 5-34 ysrd=015) ALT (SGPT) (BEAKER) (test 36 U/L 6-55 lxyp=107) EGFR (BEAKER) (test 110 mL/min/1.73 sq ESTIMATED GFR IS NOT yybe=2847) m ACCURATE CREATININE CLEARANCE IN PREDICTING GLOMERULAR FILTRATION RATE. ESTIMATED GFR IS NOT APPLICABLE FOR DIALYSIS PATIENTS. Property Management Coordinator ID - RAMIRO WPROTHROMBIN [id number] 06:00:00 Test Item Value Reference Range Comments PROTIME (BEAKER) (test zlxg=957) 12.5 seconds 11.9-14.2 INR (BEAKER) (test onyx=382) 1.0 <=5.9 Effective 01/25/2019: PT Reference Range ChangeNew: 11.9-14.2 Previous: 11.7- 14.7RECOMMENDED COUMADIN/WARFARIN INR THERAPY RANGESSTANDARD DOSE: 2.0-3.0 Includes: PROPHYLAXIS for venous thrombosis, systemic embolization; TREATMENT for venous thrombosis and/or pulmonary embolus.HIGH RISK: Target INR is2.5-3.5 for patients wiht mechanical heart valves.CBC W/PLT COUNT & AUTO [id number] 05:30:00 Test Item Value Reference Range Comments WHITE BLOOD CELL COUNT (BEAKER) (test tkwb=647) 4.7 K/ L 3.5-10.5 RED BLOOD CELL COUNT (BEAKER) (test vxlc=393) 3.07 M/ L 3.93-5.22 HEMOGLOBIN (BEAKER) (test merx=024) 10.8 GM/DL 11.2-15.7 HEMATOCRIT (BEAKER) (test dtqy=776) 32.6 % 34.1-44.9 MEAN CORPUSCULAR VOLUME (BEAKER) (test foru=860) 106.2 fL 79.4-94.8 MEAN CORPUSCULAR HEMOGLOBIN (BEAKER) (test 35.2 pg 25.6-32.2 ebki=388) MEAN CORPUSCULAR HEMOGLOBIN CONC (BEAKER) (test 33.1 GM/DL 32.2-35.5 fsdf=619) RED CELL DISTRIBUTION WIDTH (BEAKER) (test 16.3 % 11.7-14.4 iymv=949) PLATELET COUNT (BEAKER) (test nmju=167) 189 K/CU MM 150-450 MEAN PLATELET VOLUME (BEAKER) (test thdw=140) 9.4 fL 9.4-12.3 NUCLEATED RED BLOOD CELLS (BEAKER) (test 0 /100 WBC 0-0 vuxt=324) NEUTROPHILS RELATIVE PERCENT (BEAKER) (test 77 % mhat=256) LYMPHOCYTES RELATIVE PERCENT (BEAKER) (test 10 % wzve=153) MONOCYTES RELATIVE PERCENT (BEAKER) (test 11 % cvcc=654) EOSINOPHILS RELATIVE PERCENT (BEAKER) (test 1 % gdsf=879) BASOPHILS RELATIVE PERCENT (BEAKER) (test 0 % pudd=737) NEUTROPHILS ABSOLUTE COUNT (BEAKER) (test 3.64 K/ L 1.56-6.13 wfwy=312) LYMPHOCYTES ABSOLUTE COUNT (BEAKER) (test 0.49 K/ L 1.18-3.74 atdc=415) MONOCYTES ABSOLUTE COUNT (BEAKER) (test 0.51 K/ L 0.24-0.36 dllr=000) EOSINOPHILS ABSOLUTE COUNT (BEAKER) (test 0.04 K/ L 0.04-0.36 roqu=435) BASOPHILS ABSOLUTE COUNT (BEAKER) (test 0.01 K/ L 0.01-0.08 ydbu=569) IMMATURE GRANULOCYTES-RELATIVE PERCENT (BEAKER) 0 % 0-1 (test flsx=3343) POCT-GLUCOSE [id number] 00:13:00 Test Item Value Reference Range Comments POC-GLUCOSE METER (BEAKER) 148 mg/dL 70-110 : TESTED AT [address] (test hsry=5903) [facility], [address]: Property Management Coordinator/Marketing Operations Manager [id number] for KRISTINE, ISHAN POCT-GLUCOSE [id number] 22:12:00 Test Item Value Reference Range Comments POC-GLUCOSE METER (BEAKER) 140 mg/dL 70-110 : TESTED AT [address] (test zssv=1475) [facility], [address]: Property Management Coordinator/Marketing Operations Manager [id number] for KRISTINE, ISHAN POCT-GLUCOSE [id number] 17:48:00 Test Item Value Reference Range Comments POC-GLUCOSE METER (BEAKER) 136 mg/dL 70-110 : TESTED AT [address] (test rqgt=2390) [facility], [address]: Property Management Coordinator/Marketing Operations Manager [id number] for MELISSA, KEYAIRA POCT-GLUCOSE [id number] 08:06:00 Test Item Value Reference Range Comments POC-GLUCOSE METER (BEAKER) 186 mg/dL 70-110 : TESTED AT [address] (test vawy=3878) [facility], [address]: Property Management Coordinator/Marketing Operations Manager [id number] for MELISSA, KEYAIRA POCT-GLUCOSE [id number] 06:43:00 Test Item Value Reference Range Comments POC-GLUCOSE METER (MIKE) 118 mg/dL 70-110 : TESTED AT [facility] [address] (test fqmx=4492) [facility], [address]: Property Management Coordinator/Marketing Operations Manager [id number] for MESERET MORA CT, CHEST WITH IV CONTRAST- PE TEST [id number] 18:23:00Reason for exam:-& gt;chest painWhat is the patient's sedation requirement?->No SedationFINAL REPORT TECHNIQUE: CT of the chest WITH intravenous contrast (pulmonary embolism protocol). Dose modulation, iterative reconstruction, and/or weight-based adjustment of the mA/kV was utilized to reduce the radiation dose to as low as reasonably achievable. INDICATION: 64- year-old woman with chest pain, shortness of breath, and history of cancer. COMPARISON: Chest radiograph from earlier same date. FINDINGS: LINES/TUBES: The tip of a right internal jugular chest port terminates in the cavoatrial junction. PULMONARY ARTERIES: Proximal to the bifurcation of the main pulmonary artery, the main pulmonary artery is 2.5 cm in diameter. No filling defects within the pulmonary arteries to suggest pulmonary embolus. LUNGS AND AIRWAYS: Trace mucus in the right and left mainstem bronchi with mildly thickened bronchial walsh. Centrilobular emphysema. 3.9 x 3.8 cm mass in the right upper lobe (axial lung window series image 12). 4 mm noncalcified nodule in the left upper lobe (axial lung window series image 13). 3 mm noncalcified nodules in the right lower lobe (axial lung window series images 38 and 44). Mild dependent atelectasis in the left lower lobe. PLEURA: The pleural spaces are clear. HEART AND MEDIASTINUM: The visualized thyroid gland is normal. No significant mediastinal, hilar, or axillary lymphadenopathy. The heart and pericardium are within normal limits. Atherosclerotic calcifications in the thoracic aorta and coronary arteries. SOFT TISSUES AND BONES: Unremarkable. UPPER ABDOMEN: Unremarkable. IMPRESSION:No pulmonary embolus. Centrilobular emphysema with suspected bronchitis. 3.9 cm mass in the right upper lobe, suspicious for primary lung malignancy. Additional differential consideration includes metastasis given the reported history of colon cancer. Indeterminate 3- 4 mm bilateral pulmonary nodules. Signed: Vale Cox MDReport Verified Date /Time:10/30/2019 18:23:35 Reading Location: [facility] C013Y CT Body Reading Room B- TYPE NATRIURETIC FACTOR (BNP)2019-10-30 16:35:00 Test Item Value Reference Range Comments B-TYPE NATRIURETIC PEPTIDE (BEAKER) (test 360 pg/mL 0-100 aukg=226) Property Management Coordinator ID - BSTROPONIN [id number] 16:34:00 Test Item Value Reference Range Comments TROPONIN I (BEAKER) (test qful=620) < ng/mL 0.00-0.03 Troponin I (TnI) levels must be interpreted in the context of the presenting symptoms and the clinical findings. Elevated TnI levels indicate myocardial damage, but are not specific for ischemic heart disease. Elevated TnI levels are seen in patients with other cardiac conditions (including myocarditis and congestive heart failure), and slight TnI elevations occur in patients with other conditions, including sepsis, renal failure, acidosis, acute neurological disease, and persistent tachyarrhythmia.Property Management Coordinator ID - [id number] 16: 28:00 Test Item Value Reference Range Comments MAGNESIUM (BEAKER) (test npkg=557) 1.9 mg/dL 1.6-2.6 Property Management Coordinator ID - BSBASIC METABOLIC [id number] 16:28:00 Test Item Value Reference Range Comments SODIUM (BEAKER) (test 137 meq/L 136-145 hnhy=811) POTASSIUM (BEAKER) (test 3.7 meq/L 3.5-5.1 kgow=719) CHLORIDE (BEAKER) (test 101 meq/L 98-107 lrjh=538) CO2 (BEAKER) (test 31 meq/L 22-29 cnyf=806) BLOOD UREA NITROGEN 5 mg/dL 7-21 (BEAKER) (test ytjr=234) CREATININE (BEAKER) (test 0.65 mg/dL 0.57-1.25 yqem=398) GLUCOSE RANDOM (BEAKER) 106 mg/dL 70-105 (test hqxk=533) CALCIUM (BEAKER) (test 8.8 mg/dL 8.4-10.2 bmtj=867) EGFR (BEAKER) (test 92 mL/min/1.73 sq m ESTIMATED GFR IS NOT etue=7463) ACCURATE CREATININE CLEARANCE IN PREDICTING GLOMERULAR FILTRATION RATE. ESTIMATED GFR IS NOT APPLICABLE FOR DIALYSIS PATIENTS. Property Management Coordinator ID - [id number] 16:26:00 Test Item Value Reference Range Comments PROTIME (BEAKER) (test tkdh=160) 12.0 seconds 11.9-14.2 INR (BEAKER) (test qrzb=751) 0.9 <=5.9 PARTIAL THROMBOPLASTIN TIME (BEAKER) (test 27.7 seconds 22.5-36.0 pypf=135) Effective 01/25/2019: PT Reference Range ChangeNew: 11.9-14.2 Previous: 11.7- 14.7RECOMMENDED COUMADIN/WARFARIN INR THERAPY RANGESSTANDARD DOSE: 2.0-3.0 Includes: PROPHYLAXIS for venous thrombosis, systemic embolization; TREATMENT for venous thrombosis and/or pulmonary embolus.HIGH RISK: Target INR is2.5-3.5 for patients wiht mechanical heart valves.CBC W/PLT COUNT & AUTO [id number] 16:21:00 Test Item Value Reference Range Comments WHITE BLOOD CELL COUNT (BEAKER) (test mrmh=463) 6.2 K/ L 3.5-10.5 RED BLOOD CELL COUNT (BEAKER) (test tohd=173) 3.36 M/ L 3.93-5.22 HEMOGLOBIN (BEAKER) (test atck=119) 11.8 GM/DL 11.2-15.7 HEMATOCRIT (BEAKER) (test wlic=503) 35.2 % 34.1-44.9 MEAN CORPUSCULAR VOLUME (BEAKER) (test obwc=416) 104.8 fL 79.4-94.8 MEAN CORPUSCULAR HEMOGLOBIN (BEAKER) (test 35.1 pg 25.6-32.2 iksj=959) MEAN CORPUSCULAR HEMOGLOBIN CONC (BEAKER) (test 33.5 GM/DL 32.2-35.5 revr=659) RED CELL DISTRIBUTION WIDTH (BEAKER) (test 16.1 % 11.7-14.4 bemx=674) PLATELET COUNT (BEAKER) (test xfhk=101) 168 K/CU MM 150-450 MEAN PLATELET VOLUME (BEAKER) (test eojv=648) 9.0 fL 9.4-12.3 NUCLEATED RED BLOOD CELLS (BEAKER) (test 0 /100 WBC 0-0 acqy=128) NEUTROPHILS RELATIVE PERCENT (BEAKER) (test 81 % lbtg=228) LYMPHOCYTES RELATIVE PERCENT (BEAKER) (test 7 % qzwe=126) MONOCYTES RELATIVE PERCENT (BEAKER) (test 11 % txqy=085) EOSINOPHILS RELATIVE PERCENT (BEAKER) (test 1 % xgsq=454) BASOPHILS RELATIVE PERCENT (BEAKER) (test 0 % gtgb=737) NEUTROPHILS ABSOLUTE COUNT (BEAKER) (test 5.02 K/ L 1.56-6.13 safk=148) LYMPHOCYTES ABSOLUTE COUNT (BEAKER) (test 0.40 K/ L 1.18-3.74 anpa=228) MONOCYTES ABSOLUTE COUNT (BEAKER) (test 0.68 K/ L 0.24-0.36 qmil=787) EOSINOPHILS ABSOLUTE COUNT (BEAKER) (test 0.04 K/ L 0.04-0.36 gyse=767) BASOPHILS ABSOLUTE COUNT (BEAKER) (test 0.01 K/ L 0.01-0.08 yzcu=548) IMMATURE GRANULOCYTES-RELATIVE PERCENT (BEAKER) 1 % 0-1 (test qejp=8178) RAD, CHEST, 1 VIEW, NON [id number] 15:21:00Reason for exam:->chest painFINAL REPORT INDICATION: chest pain COMPARISON: None TECHNIQUE: AP and lateral view of the chest. FINDINGS: Lungs and pleura: Clear lungs. No effusion.Heart and mediastinum: Normal heart size. Unremarkable mediastinal contours.Osseous structures: No acute abnormality.Other: Tipoverlies the SVC. IMPRESSION: No acute intrathoracic abnormality. Signed: Drake Mayo MDReport Verified Date/Time: 10/30/2019 15:21:39 Reading Location: [facility] Radiology Reading Room
--- NOTE | 2019-11-29 14:17 | RAD REPORT ---
EXAM DESCRIPTION: CT - Ct Stroke Brain Wo Cont - 11/29/2019 2:06 pm CLINICAL HISTORY: aphasia COMPARISON: 09/2019 TECHNIQUE: Computed axial tomography of the head was obtained. All CT scans are performed using dose optimization technique as appropriate and may include automated exposure control or mA/KV adjustment according to patient size. FINDINGS: An intracranial bleed is not seen . The ventricles are normal in caliber. No extra-axial fluid collection is noted. 10 mm low-density area is present within the left thalamus. Fluid within the sinuses/ mastoids is not seen. IMPRESSION: 10 millimeter low-density area within the left thalamus consistent with either an acute or subacute infarct Dr Elizabeth of the emergency room was notified at 205 p.m. 11/29/2019
[2019-11-29 14:47] LABS: Absolute Lymphocytes (CBC) 0.8 K/uL (0.7-4.9); Basophils % 0.4 % (0-1.3); Hematocrit 35.5 % (36.0-45.0); Lymphocytes % 13.3 % (15.3-44.8); MPV 7.6 fL (7.6-11.3); RBC Red Blood Cell Count 3.51 M/uL (3.86-4.86)
[2019-11-29 14:51] LABS: Protime INR 0.96
--- NOTE | 2019-11-29 14:52 | RAD REPORT ---
EXAM DESCRIPTION: Saroj Single View11/29/2019 2:36 pm CLINICAL HISTORY: Chest pain COMPARISON: 09/2019 FINDINGS: The lungs appear clear of acute infiltrate. The heart is normal size . A central venous line has its tip in the superior vena cava IMPRESSION: No acute abnormalities displayed
[2019-11-29 14:56] LABS: BUN Blood Urea Nitrogen 12 mg/dL (7-18); Bicarbonate 30 mmol/L (21-32); Glucose Level 123 mg/dL (74-106); Potassium 3.6 mmol/L (3.5-5.1); Sodium Level 142 mmol/L (136-145)
--- NOTE | 2019-11-29 14:56 | ER ---
Nurse's Notes [facility] [place] Name: Lisa Acosta Age: 64 yrs Sex: Female : 1955 Arrival Date: 11/29/2019 Time: 13:37 Bed 6 Private MD: Diagnosis: Cerebral infarction-L thalamic ;Aphasia-expressive Presentation: 11/28 13:42 Chief complaint: Patient states: "I was in the hospital about a week ago for a valve aa5 replacement". Pt's sister reports sx was at [facility] (Jonathan Morillo MD completed surgery). Pt's sister states "since she was in the hospital she seems like she has trouble answering questions and she seems forgetful and it's just getting worse". Pt is A\\T\\O x 4. Coronavirus screen: Patient denies fever greater than 100.4F, cough, shortness of breath, or difficulty breathing. Ebola Screen: Patient negative for fever greater than or equal to 101.5 degrees Fahrenheit, and additional compatible Ebola Virus Disease symptoms. Initial Sepsis Screen: Does the patient meet any 2 criteria? No. Patient's initial sepsis screen is negative. Does the patient have a suspected source of infection? No. Patient's initial sepsis screen is negative. Risk Assessment: Do you want to hurt yourself or someone else? Patient reports no desire to harm self or others. 13:42 Acuity: KIRAN 2 aa5 13:42 Method Of Arrival: Ambulatory aa5 Historical: - Allergies: 13:46 Bactrim DS; aa5 13:46 Sulfa (Sulfonamide Antibiotics); aa5 - PMHx: 13:46 36 radiations and 15 months of chemo after colon cancer.; colon cancer (February 10, 2016); aa5 Diabetes - NIDDM; Hypertension; - PSHx: 13:46 Hysterectomy; Hernia repair; aa5 13:47 Heart Valve replacement; aa5 - Immunization history:: Flu vaccine status is unknown. - Social history:: Smoking status: Patient reports the use of cigarette tobacco products. - Family history:: not pertinent. Screenin:14 Abuse screen: Denies threats or abuse. Nutritional screening: No deficits noted. tw2 Tuberculosis screening: No symptoms or risk factors identified. Fall Risk None identified. 14:32 Patient has been NPO before screening. The patient is alert, able to follow commands. hb The patient does not exhibit slurred or garbled speech The patient is not exhibiting difficulty speaking. The patient does not exhibit difficulty understanding words. The patient is able to swallow own secretions with no drooling or need for suction. Patient tolerated one teaspoon of water. No drooling, immediate coughing, gurgling, or clearing of the throat was noted. The patient tolerated 90mL of water. No drooling, immediate coughing, gurgling, or clearing of the throat was noted. The patient passed the bedside swallow screening. Oral medications may be given as ordered. Contact Physician for further diet orders. Assessment: 14:22 General: Appears in no apparent distress. Behavior is calm, cooperative. Pain: Denies hb pain. Neuro: Level of Consciousness is awake, alert, obeys commands, Oriented to person, place, time, situation, Reports dizziness. Cardiovascular: Heart tones S1 S2 present Capillary refill < 3 seconds Patient's skin is warm and dry. Respiratory: Airway is patent Respiratory effort is even, unlabored, Respiratory pattern is regular, symmetrical, Breath sounds are clear bilaterally. GI: No signs and/or symptoms were reported involving the gastrointestinal system. : No signs and/or symptoms were reported regarding the genitourinary system. EENT: No signs and/or symptoms were reported regarding the EENT system. Derm: Skin is pink, warm \\T\\ dry. Musculoskeletal: No signs and/or symptoms reported regarding the musculoskeletal system. 15:15 Reassessment: Patient appears in no apparent distress at this time. Patient and/or hb family updated on plan of care and expected duration. Pain level reassessed. Patient is alert, oriented x 3, equal unlabored respirations, skin warm/dry/pink. 16:15 Reassessment: Patient appears in no apparent distress at this time. Patient and/or hb family updated on plan of care and expected duration. Pain level reassessed. Patient is alert, oriented x 3, equal unlabored respirations, skin warm/dry/pink. 17:02 Reassessment: Patient appears in no apparent distress at this time. Patient and/or hb family updated on plan of care and expected duration. Pain level reassessed. Patient is alert, oriented x 3, equal unlabored respirations, skin warm/dry/pink. Vital Signs: 13:42 BP 112 / 67; Pulse 72; Resp 16 S; Temp 97.8(TE); Pulse Ox 96% on R/A; aa5 15:00 BP 106 / 76; Pulse 66; Resp 15; Pulse Ox 99% ; hb 16:00 BP 102 / 71; Pulse 68; Resp 16; Pulse Ox 98% on R/A; hb 17:00 BP 112 / 72; Pulse 66; Resp 15; Pulse Ox 99% on R/A; hb NIH Stroke Scale Scores: 14:30 NIHSS Score: 1 hb ED Course: 13:37 Patient arrived in ED. fj1 13:42 Arm band placed on. aa5 13:45 Triage completed. aa5 13:47 Brannon Elizabeth DO is Attending Physician. ms3 13:47 Bed in low position. Call light in reach. Side rails up X2. seed buyer on. Pulse tw2 ox on. NIBP on. 14:00 Hillary Damon, RN is Primary Nurse. hb 14:06 CT Stroke Brain w/o Contrast In Process Unspecified. EDMS 14:20 Inserted Missed attempt(s): 22 gauge in right forearm. Bleeding controlled, band aid hb applied, catheter tip intact. 14:23 Initial lab(s) drawn, by vt, sent to lab. Missed attempt(s): 20 gauge in right wrist. jp3 Bleeding controlled, band aid applied, catheter tip intact. 14:26 Inserted saline lock: 20 gauge in left antecubital area, using aseptic technique. hb ,using aseptic technique. by DUSTIN Blood collected. 14:36 Stroke CXR 1 View In Process Unspecified. EDMS 14:43 EKG done, by dermatology technician. reviewed by Brannon Elizabeth DO. hb 17:18 No provider procedures requiring assistance completed. Patient transferred, IV remains hb in place. Administered Medications: 15:40 Drug: Aspirin 81 mg Route: PO; hb 18:46 Follow up: Response: Medication administered at discharge. hb Outcome: 14:55 ER care complete, transfer ordered by . ms3 17:18 Transferred by ground EMS to [facility]. hb 17:18 Condition: stable 17:18 Instructed on the need for transfer, Demonstrated understanding of instructions. 17:19 Patient left the ED. hb NIH Stroke Scale - NIH Stroke Score Date: 11/29/2019 Time: 14:30 Total Score = 1 1a. Level of Consciousness (LOC) - 0(Alert) 1b. Level of Consciousness (LOC) (Year \\T\\ Age) - 0(Both) 1c. LOC Commands (Open \\T\\ Closes Eyes/Civil Engineering Intern) - 0(Both) 2. Best Gaze (Lateral Gaze Paresis) - 0(Normal) 3. Visual Field Loss - 0(No visual loss) 4. Facial Palsy - 0(Normal) 5a. Left Arm: Motor (10-second hold) - 0(No drift) 5b. Right Arm: Motor (10-second hold) - 0(No drift) 6a. Left Leg: Motor (5-second hold - always test supine) - 0(No drift) 6b. Right Leg: Motor (5-second hold - always test supine) - 0(No drift) 7. Limb Ataxia (finger/nose \\T\\ heel/mckinney - test with eyes open) - 0(Absent) 8. Sensory Loss (pinprick arms/legs/face) - 0(Normal) 9. Best Language: Aphasia (description/naming/reading) - 1(Mild to moderate aphasia) 10. Dysarthria (speech clarity - read or repeat words) - 0(Normal) 11. Extinction and Inattention (visual/tactile/auditory/spatial/personal) - 0(No abnormality) Initials: Signatures: Dispatcher [employer] Allyn Robert, RN RN aa5 Hillary Damon RN RN hb Mary Lou Rivero RN RN tw2 Kartik Villavicencio jp3 [place] Britt fj1 Brannon Elizabeth, DO ms3
--- NOTE | 2019-11-29 14:56 | EDPHYS ---
Physician Documentation [facility] Name: Lisa Acosta Age: 64 yrs Sex: Female : 1955 Arrival Date: 11/29/2019 Time: 13:37 Bed 6 Private MD: ED Physician Brannon Elizabeth HPI: 11/28 14:05 This 64 yrs old Female presents to ER via Ambulatory with complaints of ms3 BALANCE AND OTHER PROBLEMS/COMPLICATIONS THAT SEEM TO BE ASSOCIATED WITH A PROCEDURE THAT WAS HAD A COUPLE OF WEEKS AGO.. 14:05 The patient presents with Difficulty finding words. Onset: The symptoms/episode ms3 began/occurred 2 week(s) ago, Pt states she is having difficulty speaking since she had a procedure on her heart valve.. 14:14 Possible causes:. Associated signs and symptoms: Pertinent positives: Difficulty ms3 speaking, Pertinent negatives: abdominal pain, blurred vision, chest pain, headache, lightheadedness, nausea. Current symptoms: In the emergency department the patient's symptoms are unchanged from the initial presentation. Patient's baseline: Neuro: alert and fully oriented, Motor: no deficits, Ambulation: walks without assistance, Speech: normal. Historical: - Allergies: 13:46 Bactrim DS; aa5 13:46 Sulfa (Sulfonamide Antibiotics); aa5 - PMHx: 13:46 36 radiations and 15 months of chemo after colon cancer.; colon cancer (February 10, 2016); aa5 Diabetes - NIDDM; Hypertension; - PSHx: 13:46 Hysterectomy; Hernia repair; aa5 13:47 Heart Valve replacement; aa5 - Immunization history:: Flu vaccine status is unknown. - Social history:: Smoking status: Patient reports the use of cigarette tobacco products. - Family history:: not pertinent. ROS: 14:14 Constitutional: Negative for fever, and chills. Eyes: Negative for injury, pain, ms3 redness, and discharge, Neck: Negative for injury, pain, and swelling, Cardiovascular: Negative for chest pain, and palpitations. Respiratory: Negative for shortness of breath, cough, wheezing, and pleuritic chest pain, Abdomen/GI: Negative for abdominal pain, nausea, vomiting, diarrhea, and constipation, Back: Negative for injury and pain, Neuro: Negative for headache, weakness, numbness, tingling. Exam: 14:40 Constitutional: This is a well developed, well nourished patient who is awake, alert, ms3 and in no acute distress. Head/Face: Normocephalic, atraumatic. Neck: Trachea midline, no cervical lymphadenopathy. Supple, full range of motion without nuchal rigidity, or vertebral point tenderness. No Meningismus. Chest/axilla: Normal chest wall appearance and motion. Nontender with no deformity. Cardiovascular: Regular rate and rhythm with a normal S1 and S2. No gallops, murmurs, or rubs. Normal PMI, no JVD. No pulse deficits. Respiratory: Lungs have equal breath sounds bilaterally, clear to auscultation and percussion. No rales, rhonchi or wheezes noted. No increased work of breathing, no retractions or nasal flaring. Abdomen/GI: Soft, non-tender, with normal bowel sounds. No distension or tympany. No guarding or rebound. No evidence of tenderness throughout. Back: No spinal tenderness. No costovertebral tenderness. Full range of motion. 14:40 Neuro: Orientation: is normal, appropriate for stated age, to person, place, time \T\ situation. Mentation: is normal, Memory: Cranial nerves: CN II- XII are normal as tested, Motor: is normal, Sensation: is normal, Gait: not tested. 14:51 ECG was reviewed by the Attending Physician. ms3 Vital Signs: 13:42 BP 112 / 67; Pulse 72; Resp 16 S; Temp 97.8(TE); Pulse Ox 96% on R/A; aa5 15:00 BP 106 / 76; Pulse 66; Resp 15; Pulse Ox 99% ; hb 16:00 BP 102 / 71; Pulse 68; Resp 16; Pulse Ox 98% on R/A; hb 17:00 BP 112 / 72; Pulse 66; Resp 15; Pulse Ox 99% on R/A; hb NIH Stroke Scale Scores: 14:30 NIHSS Score: 1 hb MDM: 13:56 Patient medically screened. ms3 14:40 Data reviewed: vital signs, nurses notes, lab test result(s), EKG, radiologic studies, ms3 CT scan, plain films. 14:40 Differential Diagnosis: CVA, electrolyte abnormality, UTI. ms3 14:40 ED course: Radiology called stating L thalamic stroke- acute vs subacute. Pt states sx ms3 began 2 weeks ago. Will transfer pt to [facility] [place]. 15:00 Physician consultation:. ED course: Discussed case with Dr Hogan at [facility] [place]. ms3 Agrees with floor admission. Hospitalist will call back.. 15:06 ED course: Discussed case with hospitalist, Dr Lopez, and he accepts patient.. ms3 15:08 ED course: Discussed transfer with pt. Pt agrees with plan.. ms3 11/28 13:58 Order name: Basic Metabolic Panel; Complete Time: 14:58 ms3 11/28 13:58 Order name: CBC with Diff; Complete Time: 14:55 ms3 11/28 13:58 Order name: Protime (+inr); Complete Time: 14:55 ms3 11/28 13:58 Order name: Ptt, Activated; Complete Time: 14:55 ms3 11/28 13:58 Order name: CT Stroke Brain w/o Contrast; Complete Time: 14:55 ms3 11/28 14:38 Order name: Glucose, Ancillary Testing; Complete Time: 14:55 EDMS 11/28 13:58 Order name: Stroke Swallow Screen; Complete Time: 14:58 ms3 11/28 13:58 Order name: Stroke CXR 1 View; Complete Time: 14:55 ms3 11/28 13:58 Order name: EKG; Complete Time: 13:59 ms3 11/28 13:58 Order name: Accucheck; Complete Time: 14:27 ms3 11/28 13:58 Order name: Cardiac monitoring; Complete Time: 14:27 ms3 11/28 13:58 Order name: EKG - Nurse/Tech; Complete Time: 14:27 ms3 11/28 13:58 Order name: IV Saline Lock; Complete Time: 14:27 ms3 11/28 13:58 Order name: Labs collected and sent; Complete Time: 14:27 ms3 11/28 13:58 Order name: NPO; Complete Time: 14:27 ms3 11/28 13:58 Order name: O2 Per Protocol; Complete Time: 14:27 ms3 11/28 13:58 Order name: O2 Sat Monitoring; Complete Time: 14:27 ms3 EC:40 Rate is 73 beats/min. Rhythm is regular. QRS [place] is Normal. VA interval is normal. QRS ms3 interval is normal. QT interval is normal. T waves are Flattened in leads I, II, III, aVL, aVF, aVR, V4, V5. Clinical impression: NSR w/ Non-specific ST/T Changes. Administered Medications: 15:40 Drug: Aspirin 81 mg Route: PO; hb 18:46 Follow up: Response: Medication administered at discharge. hb Disposition: 15:08 Co-signature as Attending Physician, Brannon Elizabeth DO. ms3 Disposition: 11/29/19 14:[address] [facility]. Diagnosis are Cerebral infarction - L thalamic , Aphasia - expressive. - Reason for transfer: Higher level of care. - Accepting physician is Dr lopez. - Condition is Stable. - Problem is new. - Symptoms are unchanged. NIH Stroke Scale - NIH Stroke Score Date: 11/29/2019 Time: 14:30 Total Score = 1 1a. Level of Consciousness (LOC) - 0(Alert) 1b. Level of Consciousness (LOC) (Year \T\ Age) - 0(Both) 1c. LOC Commands (Open \T\ Closes Eyes/Box Toe Flanger Stitchdowns) - 0(Both) 2. Best Gaze (Lateral Gaze Paresis) - 0(Normal) 3. Visual Field Loss - 0(No visual loss) 4. Facial Palsy - 0(Normal) 5a. Left Arm: Motor (10-second hold) - 0(No drift) 5b. Right Arm: Motor (10-second hold) - 0(No drift) 6a. Left Leg: Motor (5-second hold - always test supine) - 0(No drift) 6b. Right Leg: Motor (5-second hold - always test supine) - 0(No drift) 7. Limb Ataxia (finger/nose \T\ heel/mckinney - test with eyes open) - 0(Absent) 8. Sensory Loss (pinprick arms/legs/face) - 0(Normal) 9. Best Language: Aphasia (description/naming/reading) - 1(Mild to moderate aphasia) 10. Dysarthria (speech clarity - read or repeat words) - 0(Normal) 11. Extinction and Inattention (visual/tactile/auditory/spatial/personal) - 0(No abnormality) Initials: Signatures: Dispatcher [employer] Allyn Robert RN RN aa5 Hillary Damon RN RN Brannon Elizabeth, DO ms3 Corrections: (The following items were deleted from the chart) 15:07 14:55 11/29/2019 14:55 Transfer ordered to [place] [address] [facility]. Diagnosis is Cerebral infarction - L thalamic ; Aphasia - expressive. Reason for transfer: Higher level of care. Accepting physician is [facility]. Condition is Stable. Problem is new. Symptoms are unchanged. ms3 17:19 15:07 11/29/2019 14:55 Transfer ordered to [facility]. Diagnosis is Cerebral infarction - L thalamic ; Aphasia - expressive. Reason for transfer: Higher level of care. Accepting physician is Dr lopez. Condition is Stable. Problem is new. Symptoms are unchanged. ms3
--- NOTE | 2019-11-29 15:28 | EKG ---
Test Date: 2019-11-29 Test Time: 14:34:10 Talent Scout: ERICK MEASUREMENT RESULTS: Intervals: Rate: 73 CA: 174 QRSD: 86 QT: 384 QTc: 423 [place]: P: 64 CA: 174 QRS: 37 T: 240 INTERPRETIVE STATEMENTS: Normal sinus rhythm ST & T wave abnormality, consider inferolateral ischemia Abnormal ECG Compared to ECG 10/11/2019 10:35:24 ST (T wave) deviation now present Possible ischemia now present Myocardial infarct finding no longer present Electronically Signed On 11-29-19 15:27:55 CDT by Marcial Wood
[2019-11-29] MEDS ORDERED: ASPIRIN 81 MG CHEWABLE TABLET ONE (16:28)
[2019-11-29 17:26] VITALS: TEMP 97.8
[2019-11-29 17:30] VITALS: BP 112/72; O2SAT 99
== END 2019-11-29 17:19 | disposition short-term general hospital (02) ==
LOC: ER 13:31
DX: I63.9 Cerebral infarction, unspecified (principal); I10 Essential (primary) hypertension; R29.701 NIHSS score 1; Z72.0 Tobacco use; Z88.1 Allergy status to other antibiotic agents; Z88.2 Allergy status to sulfonamides; Z95.2 Presence of prosthetic heart valve; Z85.038 Personal history of other malignant neoplasm of large intestine
CPT/HCPCS: 36415; 70450; 71045; 80048; 82947; 85025; 85610; 85730; 93005; 99285

== ENCOUNTER 2020-03-24 17:38 | Emergency (ER) | payer OTHER ==
--- OUTSIDE RECORDS SUMMARY | 2020-03-24 17:42 | XMS REPORT | Clinical Summary ---
:[address] [facility] [place], [place] Address [address] [place] [address] Care Team Providers Name Role Phone Pcp Primary Care Provider Unavailable Param Grissom Unavailable Allergies Active Allergy Reactions Severity Noted Date Comments Sulfamethoxazole-Trimethoprim Swelling 11/16/2019 Sulfamethoxazole Anaphylaxis High 04/10/2016 Medications Medication Sig Dispensed Refills Start Date End Date Status metFORMIN Take 500 mg by 0 04/16/2016 Acti ve (GLUCOPHAGE) 500 mouth 2 (two) MG tablet times daily with breakfast and dinner . ascorbic acid, Take 1,000 mg 0 A ctive vitamin C, by mouth daily (VITAMIN C) 1000 . MG tablet mometasone-formote Inhale 2 puffs 0 Active rol (DULERA) 200-5 by mouth via mcg/actuation inhaler 2 (two) inhaler times daily. diphenhydrAMINE-zi Apply topically 28.4 g 0 11/26/201910/29 Active nc acetate 3 (three) times 1 (BENADRYL EXTRA daily as needed STRENGTH) 2-0.1 % for Itching. cream clopidogreL Take 1 tablet 90 tablet 0 12/07/2019 Act krystal (PLAVIX) 75 mg (75 mg total) 1 tablet by mouth daily. atorvastatin Take 1 tablet 90 tablet 0 12/07/2019 Ac tive (LIPITOR) 40 MG (40 mg total) 1 tablet by mouth nightly. valACYclovir Take 1 tablet 30 tablet 0 12/08/2019 Ac tive (VALTREX) 500 MG (500 mg total) tablet by mouth daily. aspirin 81 MG EC Take 1 tablet 90 tablet 1 01/13/2020 01/13/20 2 Active tablet (81 mg total) 1 by mouth daily. nicotine (NICODERM Place 1 patch 28 patch 0 11/04/2019 04/09/ 202 Discontinued CQ) 21 mg/24 hr onto the skin 0 patch daily for 30 days. albuterol HFA Inhale 1 puff 1 Inhaler 0 11/04/2019 D iscontinued (VENTOLIN HFA) 90 by mouth via 0 mcg/actuation inhaler every 6 inhaler (six) hours as needed for Wheezing for up to 30 days. furosemide (LASIX) Take 1 tablet 20 tablet 0 11/04/2019 Discontinued 20 MG tablet (20 mg total) 0 by mouth daily as needed for up to 30 days. traZODone Take 1 tablet 30 tablet 0 11/04/2019 Disco ntinued (DESYREL) 50 MG (50 mg total) 0 tablet by mouth every night as needed for Sleep for up to 30 days. aspirin 81 MG EC Take 81 mg by 0 Discontinued tablet mouth daily. 0 clopidogreL Take 1 tablet 360 tablet 0 11/27/2019 Di scontinued (PLAVIX) 75 mg (75 mg total) 0 tablet by mouth daily. albuterol HFA Inhale 1 puff 1 Inhaler 0 12/07/2019 E xpired (VENTOLIN HFA) 90 by mouth via 0 mcg/actuation inhaler every 6 inhaler (six) hours as needed for Wheezing for up to 30 days. traZODone Take 1 tablet 30 tablet 0 12/07/2019 Expir ed (DESYREL) 50 MG (50 mg total) 0 tablet by mouth every night as needed for Sleep for up to 30 days. warfarin Take 1 tablet 30 tablet 0 12/08/2019 Disco ntinued (COUMADIN, (7.5 mg total) 0 JANTOVEN) 7.5 MG by mouth daily. tablet Active Problems Problem Noted Date PFO (patent foramen ovale) 01/11/2020 Thalamic stroke 11/30/2019 HTN (hypertension) chronic arterial 11/22/2019 Diabetes mellitus, type II (HCC) (home Metformin) 10/29 Genital herpes 11/19/2019 Aortic valve stenosis, severe S/P TAVR (Medtronic Evol ut PRO+ 29mm) ( 11/17/2019 Coselli, 11/22/2019) Malignant neoplasm of upper lobe of right lung 020 COPD exacerbation 10/31/2019 Colorectal cancer (HCC) S/P chemoradiation in 2016 10/2019 Resolved Problems Problem Noted Date Resolved Date SOB (shortness of breath) 10/30/2019 11/22/2019 Encounters Date Type Specialty Care Team Description 01/11/2020 Surgery Minna, TRANSCATHETER C GEORGEURE Helio OF ASD MD Shama 01/11/2020 Anesthesia Event Yoko Olmos MD 01/11/2020 Hospital Encounter Cardiac Intensive Buitrago, Aort ic valve stenosis, severe (Primary Dx); - Care Helio Hypertension, u nspecified type; 01/12/2020 MD Shama PFO (patent for amen ovale); Thalamic stroke ([facility]); Type 2 diabetes mellitus without complication, without long-term current use of insulin ([facility]) 01/11/2020 Travel 01/11/2020 Orders Only General Internal Medicine 01/08/2020 Office Visit Cardiology Minna, Preop cardiovas cular Helio exam (Primary D x) MD Abel Sesay Mae, LVN 01/05/2020 Telephone Cardiology Ash, Pre-op Exam Fransisca Hawley 11/29/2019 Hospital Encounter General Internal Franco Gordon stroke ([facility]); - Medicine MD Yasmine Anticoagulated; 12/07/2019 Nicolasa S/P TAVR (trans catheter aortic valve replacement); Nickolas Arizmendi, Type 2 diabe bushra mellitus without complication, without long- term current use of insulin ([facility]); Essential hypertension; Tito, Aortic valve st enosis, severe; Tania Gay, COPD exacerbat ion (HCC); Malignant neopl asm of upper lobe of right lung (HCC); Cerebrovascular accident (CVA) due to embolism of precerebral artery (HCC); Colorectal canc er (HCC); Malignant neopl asm of lung, unspecified laterality, unspecified part of lung (HCC); Hypertension, u nspecified type; Hyponatremia 11/29/2019 Travel 11/23/2019 Orders Only General Internal Medicine 11/22/2019 Surgery Jonathan Pepper, TRANSCRIMA Morillo MD ER CORE AORTIC VALVE (TAVR/ANN MARIE) 11/22/2019 Anesthesia Event Murphy Kingston AA 11/17/2019 Anesthesia Event Murphy Kingston, EUN 11/17/2019 Hospital Encounter Cardiology Jonathan Pepper Nonrhe umatic aortic valve stenosis (Primary Dx); - MD Yisel COPD exacerbat ion (HCC); 11/26/2019 Lung mass; Malignant neopl asm of upper lobe of right lung (HCC); Severe aortic s tenosis; SOB (shortness of breath); Recurrent genit al herpes; Immunocompromis ed patient ([facility]); Acute respirato ry insufficiency; Type 2 diabetes mellitus without complication, without long-term current use of insulin (HCC); Anemia, unspeci fied type; S/p TAVR (trans catheter aortic valve replacement), bioprosthetic 11/16/2019 Hospital Encounter Jonathan Pepper MD 11/16/2019 Orders Only Cardiology Marina Allan MA 11/07/2019 Documentation Research Winsome Merritt 11/01/2019 Surgery Minna, R & L CATH / CO HUSSAIN Cadet ANGIOS (+/- LV) MD Shama 10/31/2019 Travel 10/30/2019 Hospital Encounter Cardiology Daniel Sinclair SOB (sh ortness of breath) (Primary Dx); - MD Ronnie COPD exacerbation ([facility]); 11/04/2019 Jude Overton Lung mass; MD Coty Smoker; Non-rheumatic a ortic stenosis; Chronic obstruc tive pulmonary disease, unspecified COPD type ([facility]); Nonrheumatic ao rtic valve stenosis; Colorectal canc er ([facility]); Squamous cell l brina cancer, right ([facility]) 10/30/2019 Orders Only General Internal Medicine 10/30/2019 Travel after 03/24/2019 Social History Tobacco Use Types Packs/Day Years Used Date Current Every Day Smoker 0.5 35 Smokeless Tobacco: Never Used Alcohol Use Drinks/Week oz/Week Comments Yes Occasional Sex Assigned at Date Recorded Not on file Job Start Date Occupation Industry Not on file Not on file Not on file Travel History Travel Start Travel End No recent travel history available. Last Filed Vital Signs Vital Sign Reading Time Taken Blood Pressure 129/85 01/12/2020 1:00 PM CDT Pulse 65 01/12/2020 1:00 PM CDT Temperature 36.8 C (98.2 F) 01/12/2020 12:00 PM CDT Respiratory Rate 17 01/12/2020 1:00 PM CDT Oxygen Saturation 99% 01/12/2020 1:00 PM CDT Inhaled Oxygen Concentration 21% 11/24/2019 8:18 AM CDT Weight 56 kg (123 lb 7.3 oz) 01/12/2020 5:00 A M CDT Height 167.6 cm (5' 6") 01/11/2020 6:16 AM CDT Body Mass Index 19.93 01/12/2020 5:00 AM CDT Plan of Treatment Health Maintenance Due Date Last Done Comments BREAST CANCER SCREENING 1955 COLON CANCER SCREENING COLONOSCOPY 1955 PNEUMOCOCCAL VACCINE 2-64 YEARS AT RISK (1 of 1 - 1963 PPSV23) DIABETIC EYE EXAM 1967 DIABETIC FOOT EXAM 1967 URINE MICROALBUMIN 1967 CERVICAL CANCER SCREENING PAP ONLY (Age 21-65) 1978 MEDICARE ANNUAL WELLNESS (YEAR 2 or FIRST YEAR if no 01/29/2019 IPPE) INFLUENZA VACCINE (#1) 2020 HEMOGLOBIN A1C 05/30/2020 11/29/2019 Implants Implanted Type Area Glue Size Machine Operator Device Identifier Shelf Model / Expiration Serial / Date Lot Occl Pfo Amplatzer 25mm 9-[id number]-025 - [id number] IMPLANTS N/A: AGA MED [id number] 08/29/2024 [id number] / Implanted: Qty: 1 on 01/11/2020 by Helio Buitrago MD Heart / [id number] Evolut Pro + Trancatheter Aortic Valve Valves N/A: MEDTRONI C [id number] 05/28/2020 [id number] / Implanted: Qty: 1 on 11/22/2019 by Jonathan Pepper MD Heart [id number] / Procedures Procedure Name Priority Date/Time Associated Comments Diagnosis RHYTHM STRIP - SCAN 01/15/2020 1:50 PM CDT CARDIAC CATH REPORT - 01/15/2020 1:50 SCAN PM CDT 2D ECHO W/ DOPPLER STAT 01/12/2020 9:23 Resul ts for this (CW/PW/COLOR) AM CDT procedure are in the results section. BASIC METABOLIC PANEL Routine 01/12/2020 4:56 Re sults for this (7) AM CDT procedure are i n the results section. CBC (HEMOGRAM ONLY) Routine 01/12/2020 4:55 Resu lts for this AM CDT procedure are i n the results section. XR CHEST 1 VIEW Routine 01/12/2020 3:27 Results for this PORTABLE/BEDSIDE AM CDT procedure a re in the results section. POCT-ACT Routine 01/11/2020 10:51 Results for this AM CDT procedure are i n the results section. CONT WAVE PULSED Routine 01/11/2020 10:00 DOPPLER AM CDT COLOR-FLOW MAPPING Routine 01/11/2020 10:00 AM CDT TRANSCATHETER CLOSURE 01/11/2020 9:41 Patent foramen OF ASD AM CDT ovale Case Notes 6TOP / ANESTHESIA / LINDA / 41 3mgy Special Needs REQ. @ 10AM TRANSESOPHAGEAL ECHO Routine 01/11/2020 9:12 AM CDT ECG 12-LEAD Routine 01/11/2020 7:34 AM CDT Procedure Note - Interface, External Ris In - 01/11/2020 7:45 AM CDT Ventricular Rate 66 BPM Atrial Rate 66 BPM P-R Interval 160 ms QRS Duration 90 ms Q-T Interval 426 ms QTC Calculation(Bazett) 446 ms P Swoope 76 degrees R Swoope 49 degrees T Swoope 51 degrees Normal sinus rhythm Low voltage QRS Borderline ECG When compared with ECG of 11:50, Significant changes have occ urred ECG 12-LEAD STAT 01/11/2020 7:34 AM CDT Resu lts for this procedure are i n the results section . TRANSFUSION SERVICE REPORT - 01/09/2020 5:53 PM CDT SCAN SARS-COV2/RT-PCR ([facility] & REF Routine 01/08/2020 10:31 AM CDT Results for this LABS) procedure are i n the results section . TYPE AND SCREEN, AUTOMATED Routine 01/08/2020 9:29 AM CDT Results for this procedure are i n the results section . PROTHROMBIN TIME/INR STAT 01/08/2020 9:29 AM CDT Results for this procedure are i n the results section . CBC (HEMOGRAM ONLY) STAT 01/08/2020 9:29 AM CDT Results for this procedure are i n the results section . BASIC METABOLIC PANEL (7) STAT 01/08/2020 9:29 AM CDT Results for this procedure are i n the results section . RHYTHM STRIP - SCAN 12/27/2019 12:20 PM CDT RHYTHM STRIP - SCAN 12/08/2019 12:40 PM CDT POCT-GLUCOSE METER Routine 12/07/2019 8:02 AM CDT Results for this procedure are i n the results section . APTT Routine 12/07/2019 3:47 AM CDT Resu lts for this procedure are i n the results section . PROTHROMBIN TIME/INR Routine 12/07/2019 3:47 AM CDT Results for this procedure are i n the results section . CBC (HEMOGRAM ONLY) Routine 12/07/2019 3:47 AM CDT Results for this procedure are i n the results section . POCT-GLUCOSE METER Routine 12/06/2019 9:10 PM CDT Results for this procedure are i n the results section . APTT Routine 12/06/2019 8:30 PM CDT Resu lts for this procedure are i n the results section . POCT-GLUCOSE METER Routine 12/06/2019 5:07 PM CDT Results for this procedure are i n the results section . APTT Routine 12/06/2019 1:08 PM CDT Resu lts for this procedure are i n the results section . POCT-GLUCOSE METER Routine 12/06/2019 11:33 AM CDT Results for this procedure are i n the results section . POCT-GLUCOSE METER Routine 12/06/2019 8:10 AM CDT Results for this procedure are i n the results section . APTT Routine 12/06/2019 5:47 AM CDT Resu lts for this procedure are i n the results section . PROTHROMBIN TIME/INR Routine 12/06/2019 5:47 AM CDT Results for this procedure are i n the results section . CBC (HEMOGRAM ONLY) Routine 12/06/2019 5:47 AM CDT Results for this procedure are i n the results section . BASIC METABOLIC PANEL (7) Routine 12/06/2019 5:47 AM CDT Results for this procedure are i n the results section . APTT Routine 12/05/2019 11:09 PM CDT Resu lts for this procedure are i n the results section . POCT-GLUCOSE METER Routine 12/05/2019 9:20 PM CDT Results for this procedure are i n the results section . ECHOCARDIOGRAM REPORT - SCAN 12/05/2019 9:11 PM CDT APTT Routine 12/05/2019 8:56 PM CDT Resu lts for this procedure are i n the results section . POCT-GLUCOSE METER Routine 12/05/2019 4:22 PM CDT Results for this procedure are i n the results section . POCT-GLUCOSE METER Routine 12/05/2019 1:13 PM CDT Results for this procedure are i n the results section . APTT Routine 12/05/2019 12:35 PM CDT Resu lts for this procedure are i n the results section . TRANSESOPHAGEAL ECHO Routine 12/05/2019 9:26 AM CDT Results for this procedure are i n the results section . POCT-GLUCOSE METER Routine 12/05/2019 7:31 AM CDT Results for this procedure are i n the results section . APTT Routine 12/05/2019 4:33 AM CDT Resu lts for this procedure are i n the results section . PROTHROMBIN TIME/INR Routine 12/05/2019 4:33 AM CDT Results for this procedure are i n the results section . CBC (HEMOGRAM ONLY) Routine 12/05/2019 4:33 AM CDT Results for this procedure are i n the results section . POCT-GLUCOSE METER Routine 12/04/2019 9:01 PM CDT Results for this procedure are i n the results section . POCT-GLUCOSE METER Routine 12/04/2019 4:46 PM CDT Results for this procedure are i n the results section . CONT WAVE PULSED DOPPLER Routine 12/04/2019 2:54 PM CDT COLOR-FLOW MAPPING Routine 12/04/2019 2:54 PM CDT APTT Routine 12/04/2019 2:34 PM CDT Resu lts for this procedure are i n the results section . POCT-GLUCOSE METER Routine 12/04/2019 11:33 AM CDT Results for this procedure are i n the results section . BASIC METABOLIC PANEL (7) Routine 12/04/2019 7:46 AM CDT Results for this procedure are i n the results section . POCT-GLUCOSE METER Routine 12/04/2019 7:36 AM CDT Results for this procedure are i n the results section . PROTHROMBIN TIME/INR Routine 12/04/2019 6:13 AM CDT Results for this procedure are i n the results section . CBC (HEMOGRAM ONLY) Routine 12/04/2019 6:13 AM CDT Results for this procedure are i n the results section . PT/APTT Routine 12/04/2019 6:13 AM CDT Resu lts for this procedure are i n the results section . PT/APTT Routine 12/03/2019 11:33 PM CDT Resu lts for this procedure are i n the results section . POCT-GLUCOSE METER Routine 12/03/2019 9:02 PM CDT Results for this procedure are i n the results section . POCT-GLUCOSE METER Routine 12/03/2019 4:55 PM CDT Results for this procedure are i n the results section . PT/APTT Routine 12/03/2019 4:02 PM CDT Resu lts for this procedure are i n the results section . POCT-GLUCOSE METER Routine 12/03/2019 11:26 AM CDT Results for this procedure are i n the results section . POCT-GLUCOSE METER Routine 12/03/2019 7:40 AM CDT Results for this procedure are i n the results section . PROTHROMBIN TIME/INR Routine 12/03/2019 5:39 AM CDT Results for this procedure are i n the results section . CBC (HEMOGRAM ONLY) Routine 12/03/2019 5:39 AM CDT Results for this procedure are i n the results section . PT/APTT Routine 12/03/2019 5:39 AM CDT Resu lts for this procedure are i n the results section . POCT-GLUCOSE METER Routine 12/02/2019 8:37 PM CDT Results for this procedure are i n the results section . POCT-GLUCOSE METER Routine 12/02/2019 4:23 PM CDT Results for this procedure are i n the results section . POCT-GLUCOSE METER Routine 12/02/2019 12:04 PM CDT Results for this procedure are i n the results section . POCT-GLUCOSE METER Routine 12/02/2019 9:15 AM CDT Results for this procedure are i n the results section . POCT-GLUCOSE METER Routine 12/02/2019 7:40 AM CDT Results for this procedure are i n the results section . CBC (HEMOGRAM ONLY) Routine 12/02/2019 5:16 AM CDT Results for this procedure are i n the results section . PT/APTT Routine 12/02/2019 5:15 AM CDT Resu lts for this procedure are i n the results section . PROTHROMBIN TIME/INR Routine 12/02/2019 5:15 AM CDT Results for this procedure are i n the results section . D-DIMER Routine 12/02/2019 5:15 AM CDT Resu lts for this procedure are i n the results section . APTT Routine 12/01/2019 11:35 PM CDT Resu lts for this procedure are i n the results section . PERIPHERAL VASCULAR REPORT - 12/01/2019 9:20 PM CDT SCAN POCT-GLUCOSE METER Routine 12/01/2019 8:32 PM CDT Results for this procedure are i n the results section . APTT Routine 12/01/2019 5:24 PM CDT Resu lts for this procedure are i n the results section . POCT-GLUCOSE METER Routine 12/01/2019 5:06 PM CDT Results for this procedure are i n the results section . POCT-GLUCOSE METER Routine 12/01/2019 12:39 PM CDT Results for this procedure are i n the results section . APTT Routine 12/01/2019 10:03 AM CDT Resu lts for this procedure are i n the results section . CBC (HEMOGRAM ONLY) Routine 12/01/2019 10:03 AM CDT Results for this procedure are i n the results section . VENOUS DOPPLER LEGS BILATERAL Routine 12/01/2019 9:59 AM CDT Results for this procedure are i n the results section . POCT-GLUCOSE METER Routine 12/01/2019 7:46 AM CDT Results for this procedure are i n the results section . APTT Routine 12/01/2019 12:25 AM CDT Resu lts for this procedure are i n the results section . PT/APTT Routine 11/30/2019 11:21 PM CDT Resu lts for this procedure are i n the results section . ECHOCARDIOGRAM REPORT - SCAN 11/30/2019 9:10 PM CDT POCT-GLUCOSE METER Routine 11/30/2019 9:03 PM CDT Results for this procedure are i n the results section . POCT-GLUCOSE METER Routine 11/30/2019 5:47 PM CDT Results for this procedure are i n the results section . 2D ECHO W/ DOPPLER Routine 11/30/2019 4:13 PM CDT Results for this (CW/PW/COLOR) procedure are in the results section . APTT Routine 11/30/2019 3:29 PM CDT Resu lts for this procedure are i n the results section . POCT-GLUCOSE METER Routine 11/30/2019 12:30 PM CDT Results for this procedure are i n the results section . POCT-GLUCOSE METER Routine 11/30/2019 8:00 AM CDT Results for this procedure are i n the results section . CBC (HEMOGRAM ONLY) Routine 11/30/2019 3:40 AM CDT Results for this procedure are i n the results section . APTT Routine 11/30/2019 3:40 AM CDT Resu lts for this procedure are i n the results section . MR BRAIN WITHOUT IV CONTRAST Routine 11/29/2019 11:06 PM CDT Results for this procedure are i n the results section . MRA NECK WITHOUT IV CONTRAST Routine 11/29/2019 11:06 PM CDT Results for this procedure are i n the results section . MRA HEAD WITHOUT IV CONTRAST Routine 11/29/2019 11:06 PM CDT Results for this procedure are i n the results section . HEMOGLOBIN A1C Routine 11/29/2019 9:09 PM CDT Re sults for this procedure are i n the results section . LIPID PANEL Routine 11/29/2019 9:09 PM CDT Resu lts for this procedure are i n the results section . PLATELET COUNT Routine 11/29/2019 9:09 PM CDT Re sults for this procedure are i n the results section . VITAMIN B12 AND FOLATE Routine 11/29/2019 9:08 PM CDT Results for this procedure are i n the results section . TSH/FREE T4 IF INDICATED Routine 11/29/2019 9:08 PM CDT Results for this procedure are i n the results section . APTT Routine 11/29/2019 9:08 PM CDT Resu lts for this procedure are i n the results section . POCT-GLUCOSE METER Routine 11/29/2019 7:40 PM CDT Results for this procedure are i n the results section . RHYTHM STRIP - SCAN 11/29/2019 11:52 AM CDT RHYTHM STRIP - SCAN 11/27/2019 1:31 PM CDT VASCULAR DIAGRAM -SCAN 11/27/2019 1:31 PM CDT POCT-GLUCOSE METER Routine 11/26/2019 12:01 PM CDT Results for this procedure are i n the results section . POCT-GLUCOSE METER Routine 11/26/2019 8:28 AM CDT Results for this procedure are i n the results section . CBC (HEMOGRAM ONLY) Routine 11/26/2019 4:39 AM CDT Results for this procedure are i n the results section . APTT Routine 11/26/2019 4:39 AM CDT Resu lts for this procedure are i n the results section . PROTHROMBIN TIME/INR Routine 11/26/2019 4:39 AM CDT Results for this procedure are i n the results section . PHOSPHORUS Routine 11/26/2019 4:39 AM CDT Resu lts for this procedure are i n the results section . MAGNESIUM Routine 11/26/2019 4:39 AM CDT Resu lts for this procedure are i n the results section . BASIC METABOLIC PANEL (7) Routine 11/26/2019 4:39 AM CDT Results for this procedure are i n the results section . POCT-GLUCOSE METER Routine 11/25/2019 9:27 PM CDT Results for this procedure are i n the results section . POCT-GLUCOSE METER Routine 11/25/2019 6:16 PM CDT Results for this procedure are i n the results section . POCT-GLUCOSE METER Routine 11/25/2019 11:50 AM CDT Results for this procedure are i n the results section . POCT-GLUCOSE METER Routine 11/25/2019 7:59 AM CDT Results for this procedure are i n the results section . CBC (HEMOGRAM ONLY) Routine 11/25/2019 4:16 AM CDT Results for this procedure are i n the results section . APTT Routine 11/25/2019 4:16 AM CDT Resu lts for this procedure are i n the results section . PROTHROMBIN TIME/INR Routine 11/25/2019 4:16 AM CDT Results for this procedure are i n the results section . PHOSPHORUS Routine 11/25/2019 4:16 AM CDT Resu lts for this procedure are i n the results section . MAGNESIUM Routine 11/25/2019 4:16 AM CDT Resu lts for this procedure are i n the results section . BASIC METABOLIC PANEL (7) Routine 11/25/2019 4:16 AM CDT Results for this procedure are i n the results section . POCT-GLUCOSE METER Routine 11/24/2019 9:15 PM CDT Results for this procedure are i n the results section . POCT-GLUCOSE METER Routine 11/24/2019 12:15 PM CDT Results for this procedure are i n the results section . CT BRAIN WITHOUT IV CONTRAST STAT 11/24/2019 10:45 AM CDT Results for this procedure are i n the results section . POCT-GLUCOSE METER Routine 11/24/2019 7:58 AM CDT Results for this procedure are i n the results section . CBC (HEMOGRAM ONLY) Routine 11/24/2019 4:39 AM CDT Results for this procedure are i n the results section . APTT Routine 11/24/2019 4:39 AM CDT Resu lts for this procedure are i n the results section . PROTHROMBIN TIME/INR Routine 11/24/2019 4:39 AM CDT Results for this procedure are i n the results section . PHOSPHORUS Routine 11/24/2019 4:39 AM CDT Resu lts for this procedure are i n the results section . MAGNESIUM Routine 11/24/2019 4:39 AM CDT Resu lts for this procedure are i n the results section . BASIC METABOLIC PANEL (7) Routine 11/24/2019 4:39 AM CDT Results for this procedure are i n the results section . POCT-GLUCOSE METER Routine 11/23/2019 9:27 PM CDT Results for this procedure are i n the results section . ECHOCARDIOGRAM REPORT - SCAN 11/23/2019 9:11 PM CDT POCT-GLUCOSE METER Routine 11/23/2019 5:19 PM CDT Results for this procedure are i n the results section . POCT-GLUCOSE METER Routine 11/23/2019 1:32 PM CDT Results for this procedure are i n the results section . 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 rate has decreased BY 32 BPM Septal infarct is now Presen t Nonspecific T wave abnormali ty now evident in Inferior leads T wave inversion now evident in Lateral leads ECG 12-LEAD Routine 11/23/2019 11:50 AM Results for this CDT procedure are i n the results section. 2D ECHO W/ DOPPLER STAT 11/23/2019 8:55 AM Re sults for this (CW/PW/COLOR) CDT procedure are in the results section. CBC W/PLT COUNT & AUTO Routine 11/23/2019 3:23 AM Results for this DIFFERENTIAL CDT procedure are i n the results section. APTT Routine 11/23/2019 3:23 AM Results for this CDT procedure are i n the results section. PROTHROMBIN TIME/INR Routine 11/23/2019 3:23 AM Results for this CDT procedure are i n the results section. CBC W/PLT COUNT & AUTO Routine 11/23/2019 3:23 AM Results for this DIFFERENTIAL CDT procedure are i n the results section. PHOSPHORUS Routine 11/23/2019 3:23 AM Results for this CDT procedure are i n the results section. MAGNESIUM Routine 11/23/2019 3:23 AM Results for this CDT procedure are i n the results section. BASIC METABOLIC PANEL Routine 11/23/2019 3:23 AM Results for this (7) CDT procedure are i n the results section. TRANSFUSION SERVICE 11/22/2019 5:50 PM REPORT - SCAN CDT XR CHEST 1 VIEW STAT 11/22/2019 11:09 AM Resul ts for this PORTABLE/BEDSIDE CDT procedure a re in the results section. CBC W/PLT COUNT & AUTO STAT 11/22/2019 10:45 AM Results for this DIFFERENTIAL CDT procedure are i n the results section. HGB/HCT (H&H) - STAT STAT 11/22/2019 10:45 AM Results for this LAB CDT procedure are i n the results section. GLUCOSE-STAT LAB STAT 11/22/2019 10:45 AM Resu lts for this CDT procedure are i n the results section. POTASSIUM-STAT LAB STAT 11/22/2019 10:45 AM Re sults for this CDT procedure are i n the results section. SODIUM NA-STAT LAB STAT 11/22/2019 10:45 AM Re sults for this CDT procedure are i n the results section. BLOOD GAS, ARTERIAL STAT 11/22/2019 10:45 AM R esults for this CDT procedure are i n the results section. APTT STAT 11/22/2019 10:45 AM Results for this CDT procedure are i n the results section. PROTHROMBIN TIME/INR STAT 11/22/2019 10:45 AM Results for this CDT procedure are i n the results section. CALCIUM, IONIZED STAT 11/22/2019 10:45 AM Resu lts for this CDT procedure are i n the results section. RRL CRITICAL LABS STAT 11/22/2019 10:45 AM Res ults for this (ABG,NA,K,H&H,GLUCOSE) CDT proce dure are in the results section. PHOSPHORUS STAT 11/22/2019 10:45 AM Results for this CDT procedure are i n the results section. MAGNESIUM STAT 11/22/2019 10:45 AM Results for this CDT procedure are i n the results section. CBC W/PLT COUNT & AUTO STAT 11/22/2019 10:45 AM Results for this DIFFERENTIAL CDT procedure are i n the results section. BASIC METABOLIC PANEL STAT 11/22/2019 10:45 AM Results for this (7) CDT procedure are i n the results section. POCT-ACT Routine 11/22/2019 9:46 AM Results for this CDT procedure are i n the results section. POCT-ACT Routine 11/22/2019 9:26 AM Results for this CDT procedure are i n the results section. 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 CBC W/PLT COUNT & AUTO Routine 11/22/2019 4:54 R esults for this DIFFERENTIAL AM CDT procedure are i n the results section. APTT Routine 11/22/2019 4:54 Results for this AM CDT procedure are i n the results section. PROTHROMBIN TIME/INR Routine 11/22/2019 4:54 Res ults for this AM CDT procedure are i n the results section. CBC W/PLT COUNT & AUTO Routine 11/22/2019 4:54 R esults for this DIFFERENTIAL AM CDT procedure are i n the results section. PHOSPHORUS Routine 11/22/2019 4:54 Results for this AM CDT procedure are i n the results section. MAGNESIUM Routine 11/22/2019 4:54 Results for this AM CDT procedure are i n the results section. BASIC METABOLIC PANEL Routine 11/22/2019 4:54 Re sults for this (7) AM CDT procedure are i n the results section. POCT-GLUCOSE METER Routine 11/21/2019 9:07 Resul ts for this PM CDT procedure are i n the results section. POCT-GLUCOSE METER Routine 11/21/2019 6:26 Resul ts for this PM CDT procedure are i n the results section. PREPARE RBC Routine 11/21/2019 5:44 Results for this PM CDT procedure are i n the results section. POCT-GLUCOSE METER Routine 11/21/2019 11:55 Resul ts for this AM CDT procedure are i n the results section. POCT-GLUCOSE METER Routine 11/21/2019 7:49 Resul ts for this AM CDT procedure are i n the results section. PHOSPHORUS Routine 11/21/2019 5:08 Results for this AM CDT procedure are i n the results section. MAGNESIUM Routine 11/21/2019 5:08 Results for this AM CDT procedure are i n the results section. BASIC METABOLIC PANEL Routine 11/21/2019 5:08 Re sults for this (7) AM CDT procedure are i n the results section. POCT-GLUCOSE METER Routine 11/20/2019 9:06 Resul ts for this PM CDT procedure are i n the results section. POCT-GLUCOSE METER Routine 11/20/2019 5:09 Resul ts for this PM CDT procedure are i n the results section. POCT-GLUCOSE METER Routine 11/20/2019 12:00 Resul ts for this PM CDT procedure are i n the results section. POCT-GLUCOSE METER Routine 11/20/2019 7:51 Resul ts for this AM CDT procedure are i n the results section. PHOSPHORUS Routine 11/20/2019 5:04 Results for this AM CDT procedure are i n the results section. MAGNESIUM Routine 11/20/2019 5:04 Results for this AM CDT procedure are i n the results section. BASIC METABOLIC PANEL Routine 11/20/2019 5:04 Re sults for this (7) AM CDT procedure are i n the results section. POCT-GLUCOSE METER Routine 11/19/2019 9:15 Resul ts for this PM CDT procedure are i n the results section. POCT-GLUCOSE METER Routine 11/19/2019 5:39 Resul ts for this PM CDT procedure are i n the results section. POCT-GLUCOSE METER Routine 11/19/2019 12:18 Resul ts for this PM CDT procedure are i n the results section. POCT-GLUCOSE METER Routine 11/19/2019 7:30 Resul ts for this AM CDT procedure are i n the results section. PHOSPHORUS Routine 11/19/2019 5:19 Results for this AM CDT procedure are i n the results section. MAGNESIUM Routine 11/19/2019 5:19 Results for this AM CDT procedure are i n the results section. BASIC METABOLIC PANEL Routine 11/19/2019 5:19 Re sults for this (7) AM CDT procedure are i n the results section. POCT-GLUCOSE METER Routine 11/18/2019 9:22 Resul ts for this PM CDT procedure are i n the results section. TRANSFUSION SERVICE 11/18/2019 5:50 REPORT - SCAN PM CDT POCT-GLUCOSE METER Routine 11/18/2019 5:06 Resul ts for this PM CDT procedure are i n the results section. POCT-GLUCOSE METER Routine 11/18/2019 12:10 Resul ts for this PM CDT procedure are i n the results section. POCT-GLUCOSE METER Routine 11/18/2019 7:41 Resul ts for this AM CDT procedure are i n the results section. CBC (HEMOGRAM ONLY) Routine 11/18/2019 5:11 Resu lts for this AM CDT procedure are i n the results section. PROTHROMBIN TIME/INR Routine 11/18/2019 5:11 Res ults for this AM CDT procedure are i n the results section. PT/APTT Routine 11/18/2019 5:11 Results for this AM CDT procedure are i n the results section. PHOSPHORUS Routine 11/18/2019 5:11 Results for this AM CDT procedure are i n the results section. MAGNESIUM Routine 11/18/2019 5:11 Results for this AM CDT procedure are i n the results section. BASIC METABOLIC PANEL Routine 11/18/2019 5:11 Re sults for this (7) AM CDT procedure are i n the results section. POCT-GLUCOSE METER Routine 11/17/2019 9:06 Resul ts for this PM CDT procedure are i n the results section. TRANSFUSION SERVICE 11/17/2019 5:51 REPORT - SCAN PM CDT CARDIAC CATH REPORT - 11/17/2019 5:20 SCAN PM CDT POCT-GLUCOSE METER Routine 11/17/2019 11:26 Resul ts for this AM CDT procedure are i n the results section. PREPARE RBC STAT 11/17/2019 3:53 Results for this AM CDT procedure are i n the results section. CBC W/PLT COUNT & AUTO Routine 11/16/2019 10:32 R esults for this DIFFERENTIAL AM CDT procedure are i n the results section. TYPE AND SCREEN, Routine 11/16/2019 10:32 Results for this AUTOMATED AM CDT procedure are i n the results section. COMPREHENSIVE METABOLIC Routine 11/16/2019 10:32 Results for this PANEL AM CDT procedure are i n the results section. PROTHROMBIN TIME/INR Routine 11/16/2019 10:32 Res ults for this AM CDT procedure are i n the results section. CBC W/PLT COUNT & AUTO Routine 11/16/2019 10:32 R esults for this DIFFERENTIAL AM CDT procedure are i n the results section. B-TYPE NATRIURETIC Routine 11/16/2019 10:32 Resul ts for this FACTOR (BNP) AM CDT procedure are i n the results section. VASCULAR DIAGRAM -SCAN 11/15/2019 4:10 PM CDT RHYTHM STRIP - SCAN 11/06/2019 11:52 AM CDT REPORT OF PROCEDURE - 11/06/2019 11:52 ENDOSCOPY SCAN AM CDT VASCULAR DIAGRAM -SCAN 11/06/2019 11:52 AM CDT CARDIAC CATH REPORT - 11/06/2019 11:52 SCAN AM CDT CARDIAC CATH REPORT - 11/06/2019 11:52 SCAN AM CDT POCT-GLUCOSE METER Routine 11/04/2019 7:40 Resul ts for this AM FOIL [employer]OL[employer] procedure are i n the results section. POCT-GLUCOSE METER Routine 11/03/2019 10:17 Resul ts for this PM FOIL SPOOLER procedure are i n the results section. POCT-GLUCOSE METER Routine 11/03/2019 6:18 Resul ts for this PM FOIL [employer]PO[employer] procedure are i n the results section. NM BONE SCAN WHOLE BODY Routine 11/03/2019 3:57 Results for this PM [employer]IL [employer]PO[employer] procedure are i n the results section. POCT-GLUCOSE METER Routine 11/03/2019 11:20 Resul ts for this AM FOIL [employer]PO[employer] procedure are i n the results section. POCT-GLUCOSE METER Routine 11/03/2019 7:51 Resul ts for this AM FOIL [employer] procedure are i n the results section. CBC W/PLT COUNT & AUTO Routine 11/03/2019 3:56 R esults for this DIFFERENTIAL AM [employer] procedure are i n the results section. PHOSPHORUS Routine 11/03/2019 3:56 Results for this AM FOIL [employer] procedure are i n the results section. MAGNESIUM Routine 11/03/2019 3:56 Results for this AM [employer] procedure are i n the results section. COMPREHENSIVE METABOLIC Routine 11/03/2019 3:56 Results for this PANEL AM [employer]IL [employer] procedure are i n the results section. CBC W/PLT COUNT & AUTO Routine 11/03/2019 3:56 R esults for this DIFFERENTIAL AM [employer] procedure are i n the results section. POCT-GLUCOSE METER Routine 11/02/2019 9:55 Resul ts for this PM [employer] procedure are i n the results section. PERIPHERAL VASCULAR 11/02/2019 9:11 REPORT - SCAN PM FOIL S[employer]ER CTA CHEST Routine 11/02/2019 7:17 Results for this PM [employer] procedure are i n the results section. CTA ABDOMEN & PELVIS Routine 11/02/2019 7:17 Res ults for this PM [employer] procedure are i n the results section. TRANSFUSION SERVICE 11/02/2019 5:52 REPORT - SCAN PM [employer]IL [employer]ER POCT-GLUCOSE METER Routine 11/02/2019 5:30 Resul ts for this PM [employer] procedure are i n the results section. PULMONARY FUNCTION - 11/02/2019 3:02 SCAN PM FOIL S[employer]ER POCT-GLUCOSE METER Routine 11/02/2019 1:16 Resul ts for this PM [employer]IL [employer] procedure are i n the results section. POCT-GLUCOSE METER Routine 11/02/2019 1:06 Resul ts for this PM [employer]IL [employer] procedure are i n the results section. POCT-GLUCOSE METER Routine 11/02/2019 10:08 Resul ts for this AM [employer] procedure are i n the results section. CAROTID DOPPLER Routine 11/02/2019 9:27 Results for this BILATERAL AM [employer] procedure are i n the results section. CBC W/PLT COUNT & AUTO Routine 11/02/2019 4:38 R esults for this DIFFERENTIAL AM [employer] procedure are i n the results section. PHOSPHORUS Routine 11/02/2019 4:38 Results for this AM [employer] procedure are i n the results section. MAGNESIUM Routine 11/02/2019 4:38 Results for this AM [employer] procedure are i n the results section. COMPREHENSIVE METABOLIC Routine 11/02/2019 4:38 Results for this PANEL AM [employer] procedure are i n the results section. CBC W/PLT COUNT & AUTO Routine 11/02/2019 4:38 R esults for this DIFFERENTIAL AM [employer] procedure are i n the results section. POCT-GLUCOSE METER Routine 11/01/2019 10:18 Resul ts for this PM [employer] procedure are i n the results section. ECHOCARDIOGRAM REPORT - 11/01/2019 9:20 SCAN PM FOIL [employer]ER SPIROMETRY Routine 11/01/2019 5:02 Results for this PM [employer] procedure are i n the results section. 2D ECHO W/ DOPPLER STAT 11/01/2019 1:22 Resul ts for this (CW/PW/COLOR) PM [employer] procedure are in the results section. POCT-GLUCOSE METER Routine 11/01/2019 1:20 Resul ts for this PM [employer] procedure are i n the results section. R & L CATH / CORONARY 11/01/2019 7:35 Aortic valve ANGIOS (+/- LV) AM [employer]IL [employer] stenosis, etiology of cardiac valve disease unspecified POCT-GLUCOSE METER Routine 11/01/2019 6:25 Resul ts for this AM [employer] procedure are i n the results section. ABORH, MANUAL STAT 11/01/2019 5:53 Results fo r this AM [employer] procedure are i n the results section. CBC W/PLT COUNT & AUTO Routine 11/01/2019 4:44 R esults for this DIFFERENTIAL AM [employer] procedure are i n the results section. TYPE AND SCREEN, Routine 11/01/2019 4:44 Results for this AUTOMATED AM [employer] procedure are i n the results section. PROTHROMBIN TIME/INR Routine 11/01/2019 4:44 Res ults for this AM [employer] procedure are i n the results section. PHOSPHORUS Routine 11/01/2019 4:44 Results for this AM [employer] procedure are i n the results section. MAGNESIUM Routine 11/01/2019 4:44 Results for this AM [employer] procedure are i n the results section. COMPREHENSIVE METABOLIC Routine 11/01/2019 4:44 Results for this PANEL AM [employer] procedure are i n the results section. CBC W/PLT COUNT & AUTO Routine 11/01/2019 4:44 R esults for this DIFFERENTIAL AM [employer] procedure are i n the results section. POCT-GLUCOSE METER Routine 11/01/2019 12:02 Resul ts for this AM [employer] procedure are i n the results section. POCT-GLUCOSE METER Routine 10/31/2019 10:01 Resul ts for this PM [employer]IL [employer]PO[employer] procedure are i n the results section. POCT-GLUCOSE METER Routine 10/31/2019 5:34 Resul ts for this PM [employer]IL [employer]PO[employer] procedure are i n the results section. POCT-GLUCOSE METER Routine 10/31/2019 7:52 Resul ts for this AM [employer] procedure are i n the results section. POCT-GLUCOSE METER Routine 10/31/2019 6:30 Resul ts for this AM [employer] procedure are i n the results section. VENOUS DOPPLER LEGS STAT 10/30/2019 6:00 Resu lts for this BILATERAL PM [employer]IL [employer] procedure are i n the results section. CT CHEST PE TEST DESIGN STAT 10/30/2019 5:29 Results for this PM [employer] procedure are i n the results section. CBC W/PLT COUNT & AUTO STAT 10/30/2019 4:04 R esults for this DIFFERENTIAL PM [employer] procedure are i n the results section. PT/APTT STAT 10/30/2019 4:04 Results for this PM [employer] procedure are i n the results section. CBC W/PLT COUNT & AUTO STAT 10/30/2019 4:04 R esults for this DIFFERENTIAL PM [employer] procedure are i n the results section. TROPONIN I STAT 10/30/2019 4:04 Results for this PM [employer] procedure are i n the results section. B-TYPE NATRIURETIC STAT 10/30/2019 4:04 Resul ts for this FACTOR (BNP) PM [employer] procedure are i n the results section. MAGNESIUM STAT 10/30/2019 4:04 Results for this PM [employer] procedure are i n the results section. BASIC METABOLIC PANEL STAT 10/30/2019 4:04 Re sults for this (7) PM [employer] procedure are i n the results section. XR CHEST 1 VIEW STAT 10/30/2019 3:16 Results for this PORTABLE/BEDSIDE PM [employer] procedure a re in the results section. ECG 12-LEAD Routine 10/30/2019 1:25 PM FOIL SPOOLER Procedure Note - Interface, External Ris In - 10/30/2019 6:59 PM FOIL SPOOLER Ventricular Rate 88 BPM Atrial Rate 88 BPM P-R Interval 162 ms QRS Duration 92 ms Q-T Interval 384 ms QTC Calculation(Bazett) 464 ms P Swoope 67 degrees R Swoope 32 degrees T Swoope 53 degrees Normal sinus rhythm Possible Left atrial enlarge ment Nonspecific ST abnormality Abnormal ECG No previous ECGs available ECG 12-LEAD STAT 10/30/2019 1:25 PM FOIL SPOOLER Resu lts for this procedure are in the results section . after 03/24/2019 Results RHYTHM STRIP - SCAN (01/15/2020 1:50 PM CDT)Only the most recent of6 results within the time period is included. Narrative Performed At This result has an attachment that is no t available. CARDIAC CATH REPORT - SCAN (01/15/2020 1:50 PM CDT) Narrative Performed At This result has an attachment that is no t available. 2D Echo W/Doppler(CW/PW/Color) (01/12/2020 9:23 AM CDT) Ejection Fraction [facility] Specimen Narrative Performed At Transthoracic Echocardiography Report (T TE) [facility] ECHO HEARTLAB [facility] Demographics Patient NameHYLTON, CARADate of Study01/12/2020 KARINA Female Visit [id number] Room [id number] Number Date of 1955Referring Phys ician Age 64 year(s)[employer] In[employer] Viola Hargrove Interpreting Donato Beth MD Physician Procedure Type of Study TTE procedure:2DECHO W DOPPLER(CW/PW/COLOR) (STAT) Indications:Valvular Disease with change in clinical symptoms and Patent foramen ovale (PFO). Clinical History HGB 11.1 HCT 34.3 % Acid Reflux Asthma Colon Cancer Diabetes II Hypertension TAVR Contrast Medium: Definity. Amount - 2 ml Height: 66 inches Weight: 56.7 kg (125 lbs) BSA: 1.64 m^2 BMI: 20.18 kg/m^2 HR: 72 bpm BP: 121/65 mmHg Summary 1. The left ventricle is chamber size (by vol index) is mildly enlarged. Normal LV wall thickness. All of the LV segments have normal contractility . Estimated LVEF by qualitative assessment is lower limits of normal (55%). Grade 1 diastolic dysfunction (impaired relaxation and low-normal LA pressure). 2. Normal right ventricle structure and function. Normal right atrium. Unable to estimate peak systolic PA pressure; inadequate TR velocity signal. 3. A percutaneous (TAVR) biologic AoV prosthesis is visualized and appears well-seated with normal function by Doppler. AoV dimensionless obstructive index (DOI)) is 0.5. Prosthetic AoV regurgitaton is mild. 4. An PFO septal occluder device appears normally deployed with no evidence of shunting on color Doppler. Previous Study S/p PFO closure device. Signature Findings Technical Quality: Technically adequate exam. Left Ventricle The left ventricle is chamber size (by vol index) is mildly enlarged (female - LVED 62-70ml/m 2). No rmal LV wall thickness. All of the LV se gments daugherty ve normal contractility . Estimated LVEF by qu alitative assessment is normal (55%) . Gr sigrid 1 diastolic dysfunction (impaired re laxation an d low-normal LA pressure). Left AtriumLA size is normal . Right VentricleNormal right ventricle structure and function. Right Atrium Normal right atrium. Atrial SeptumAn PFO septal occluder device appears normally de ployed with no evidence of shunting on c olor Do ppler. Aortic Valve A percutaneous (TAVR) biologic AoV prosthesis is vi sualized . The prosthetic AoV appears we ll-seated wi th normal function by Doppler. Prostheti c AoV re gurgitaton is mild . Prosthetic AR locat ions(s) ar e paravalvular at approximately 5 o''amber ck. . Ao V dimensionless obstructive index (DOI)) is 0.5. Pe ak Grad;16 mmHg,Mean Grad; 8 mmHg. Mitral Valve Mild MV leaflet thickening. Trace mitral re gurgitation. Tricuspid ValveA trace of tricuspid regurgitation. Un able to estimate peak systolic PA pressu re; in adequate TR velocity signal. Pulmonic Valve Normal PV structure and function by limited views an d Doppler. AortaAortic root size (SInus of Valsalva diameter) i s no rmal . PericardiumNo evidence of pericardial effusion. IVC/SVC/PA/PV/PleuralThe estimated RA pressure by IVC dynamics 5-10mmHg . Chambers/Structures Left Atrium LA Volume: 38.58 ml LA Area: 15.79 cm^2 LA Vol. Index: 24 ml/m^2 Left Ventricle LVIDd: 3.94 cm LV Septum Diastolic: 0.92 cm LV PW Diastolic: 0.89 cm LVEDV Gutierrez's:100.64 ml LVESV Gutierrez's:40.18 ml LVEF Gutierrez's: 60.1 %LVEDV I: 61 ml/m^2 LVESVI: 24 ml/m^2 LVOT Diameter: 1.95 cm Doppler/Quantitative Measurements Mitral Valve MV Peak E-Wave: 0.69 m/sMV Peak A-Wave: 1.06 m/s E/A Ratio: 0. 65 Peak Gradient: 1.92 mmHg Deceleration Time: 195.9 msec MV Michael. Peak: Tissue Doppler E' Lateral Velocity: 0.06 m/s E/E': 11.01 Aortic Valve Peak Velocity: 2.07 m/sMean Velocity: 1.51 m/s Peak Gradient: 17.06 mmHgMean Gradient: 9.79 mmHg AV Area (continuity): 1.6 cm^2 AV VTI: 44.88 cm AV DVI: 0.54 LVOT Peak Velocity: 0.77 m/s Peak Gradient: 2.34 mmHg Mean Velocity: 0.58 m/s Mean Gradient: 1.45 mmHg LVOT Diameter: 1.95 cmLVOT VTI: 24.09 cm LVOT Area: 2.99 cm^2LVOT SV:71.91 ml LVOT CO: 5.18 l/min LVOT CI: 3.16 l/min/m^2 Procedure Note Interface, External Ris In - 01/12/2020 11:03 AM CDT Transthoracic Echocardiography Report (TTE) Demographics Patient Name QUIANA VALLADARES Date of Study 01/12/2020 KARINA Gende r Female Visit Number [id number] Race Room Number [id number] Number Date of 1955 Refer ring Physician Age 64 year(s) Sonog marily Beth MD Physi logan Procedure Type of Study TTE procedure:2DECHO W DOPPLE R(CW/PW/COLOR) (STAT) Indications:Valvular Disease with change in clinical symptoms and Patent foramen ovale (PFO). Clinical History HGB 11.1 HCT 34.3 % Acid Reflux Asthma Colon Cancer Diabetes II Hypertension TAVR Contrast Medium: Definity. Amount - 2 ml Height: 66 inches Weight: 56.7 kg (125 l bs) BSA: 1.64 m^2 BMI: 20.18 kg/m^2 HR: 72 bpm BP: 121/65 mmHg Summary 1. The left ventricle is chamber size ( by vol index) is mildly enlarged. Normal LV wall thickness. All of the LV segments have normal contractility . Estimated LVEF by qualitative assessm ent is lower limits of normal (55%). Grade 1 diastolic dysfunction (i mpaired relaxation and low-normal LA pressure). 2. Normal right ventricle structure and function. Normal right atrium. Unable to estimate peak systolic PA pre ssure; inadequate TR velocity signal. 3. A percutaneous (TAVR) biologic AoV p rosthesis is visualized and appears well-seated with normal function by Dop pler. AoV dimensionless obstructive index (DOI)) is 0.5. Prosthetic AoV reg urgitaton is mild. 4. An PFO septal occluder device appear s normally deployed with no evidence of shunting on color Doppler. Previous Study S/p PFO closure device. Signature Findings Technical Quality: Technically adequate exam. Left Ventricle The left ventric le is chamber size (by vol index) is mildly enlarg ed (female - LVED 62-70ml/m2). Normal LV wall t hickness. All of the LV segments have normal cont ractility . Estimated LVEF by qualitative asse ssment is normal (55%) . Grade 1 diastoli c dysfunction (impaired relaxation and low-normal L A pressure). Left Atrium LA size is sherie l . Right Ventricle Normal right [place] tricle structure and function. Right Atrium Normal right atr ium. Atrial Septum An PFO septal oc cluder device appears normally deployed with no evidence of shunting on color Doppler. Aortic Valve A percutaneous ( TAVR) biologic AoV prosthesis is visualized . The prosthetic AoV appears well-seated with normal func tion by Doppler. Prosthetic AoV regurgitaton is mild . Prosthetic AR locations(s) are paravalvular at approximately 5 o''clock. . AoV dimensionles s obstructive index (DOI)) is 0.5. Peak Grad;16 mmH g,Mean Grad; 8 mmHg. Mitral Valve Mild MV leaflet thickening. Trace mitral regurgitation. Tricuspid Valve A trace of tricu spid regurgitation. Unable to estima te peak systolic PA pressure; inadequate TR ve locity signal. Pulmonic Valve Normal PV struct ure and function by limited views and Doppler. Aorta Aortic root size (SInus of Valsalva diameter) is normal . Pericardium No evidence of p ericardial effusion. IVC/SVC/PA/PV/Pleural The estimated RA pressure by IVC dynamics 5-10mmHg . Chambers/Structures Left Atrium LA Volume: 38.58 ml LA Area: 15.79 cm^2 LA Vol. Index: 24 ml/m^2 Left Ventricle LVIDd: 3.94 cm LV Septum Diastolic: 0.92 cm LV PW Diastolic: 0.89 cm LVEDV Gutierrez's:100.64 ml LVESV Gutierrez's:40.18 ml LVEF Gutierrez's: 60.1 % LVEDVI: 61 ml/m^2 LVESVI: 24 ml/m^2 LVOT Diameter: 1.95 cm Doppler/Quantitative Measurements Mitral Valve MV Peak E-Wave: 0.69 m/s M V Peak A-Wave: 1.06 m/s E /A Ratio: 0.65 P eak Gradient: 1.92 mmHg D eceleration Time: 195.9 msec MV Michael. Peak: Tissue Doppler E' Lateral Velocity: 0.06 m/s E /E': 11.01 Aortic Valve Peak Velocity: 2.07 m/s Mean Velocity: 1.51 m/s Peak Gradient: 17.06 mmHg Mean Gradient: 9.79 mmHg AV Area (continuity): 1.6 cm^2 AV VTI: 44.88 cm AV DVI: 0.54 LVOT Peak Velocity: 0.77 m/s Pea k Gradient: 2.34 mmHg Mean Velocity: 0.58 m/s Lin n Gradient: 1.45 mmHg LVOT Diameter: 1.95 cm LVO T VTI: 24.09 cm LVOT Area: 2.99 cm^2 LVO T SV:71.91 ml LVOT CO: 5.18 l/min LVO T CI: 3.16 l/min/m^2 Performing Organization Address [facility] Phone Number [facility] MKCKESSON CPACS Basic metabolic panel (01/12/2020 4:56 AM CDT)Only the most recent of15 results within the time period is included. Sodium 136 136 - 145 meq/L [facility] Potassium 3.7Comment: Specimen slightly 3.5 - 5.1 meq/L I [facility] Chloride 106 98 - 107 meq/L [facility] CO2 22 22 - 29 meq/L [facility] BUN 9 7 - 21 mg/dL [facility] Creatinine 0.67Comment: Specimen 0.57 - 1.25 mg/dL [facility] slightly [facility]olyzed [facility] Glucose 146 (H) 70 - 105 mg/dL [facility] Calcium 8.2 (L) 8.4 - 10.2 mg/dL [facility] EGFR 89Comment: ESTIMATED GFR IS mL/min/1.73 sq m [facility] NOT ACCURATE CREATININE [facility] CLEARANCE IN PREDICTING GLOMERULAR FILTRATION RATE. ESTIMATED GFR IS NOT APPLICABLE FOR DIALYSIS PATIENTS. Specimen Blood Narrative Performed At Job Change Crew Member ID - PIYANELY L [facility] MED ICA CENTER Performing Organization Address City/[facility] Phone Number [place] [phone] [place] [address] CENTER CBC (Hemogram only) (01/12/2020 4:55 AM CDT)Only the most recent of14 results within the time period is included. WBC 4.2 3.5 - 10.5 K/L [facility] RBC 3.45 (L) 3.93 - 5.22 M/L [facility] Hemoglobin 11.1 (L) 11.2 - 15.7 GM/DL [facility] Hematocrit 34.3 34.1 - 44.9 % [facility] MCV 99.4 (H) 79.4 - 94.8 fL [facility] MCH 32.2 25.6 - 32.2 pg [facility] MCHC 32.4 32.2 - 35.5 GM/DL [facility] RDW 14.6 (H) 11.7 - 14.4 % [facility] Platelets 186 150 - 450 K/CU MM [facility] MPV 9.1 (L) 9.4 - 12.3 fL [facility] nRBC 0 0 - 0 /100 WBC [facility] Specimen Blood Performing Organization Address City/State/Zipcode Phone Number [facility] [address] [place] [address] CENTER XR chest 1 view portable / bedside (01/12/2020 3:27 AM CDT)Only the most recent of3 resultswithin the time period is included. Specimen Narrative Performed At FINAL REPORT [facility] ([place], [place]) RAD, CHEST, 1 VIEW, NON DEPT INDICATION: s/p PFO closure, SOB COMPARISON: November 22, 2019 FINDINGS: Portable frontal view of the c hest. IMPRESSION: Support Lines: Right chest Port-A-Cath s table. Previously noted right IJ catheter has been removed. Lungs and pleura: Right upper lobe massl nemo consolidation 4 cm again noted. Left lower lobe and right lung at electasis or scarring.No pneumothorax. Heart and mediastinum: Stable contours. Stable post procedure changes. Additional findings: None. Signed: Silvano Kirby MD Report Verified Date/Time:01/12/2020 04:42:15 Procedure Note Interface, External Ris In - 01/12/2020 4:44 AM CDT FINAL REPORT RAD, CHEST, 1 VIEW, NON DEPT INDICATION: s/p PFO closure, SOB COMPARISON: November 22, 2019 FINDINGS: Portable frontal view of the c hest. IMPRESSION: Support Lines: Right chest Port-A-Cath s table. Previously noted right IJ catheter has been removed. Lungs and pleura: Right upper lobe massl nemo consolidation 4 cm again noted. Left lower lobe and right lung at electasis or scarring. No pneumothorax. Heart and mediastinum: Stable contours. Stable post procedure changes. Additional findings: None. Signed: Silvano Kirby MD Report Verified Date/Time: 01/12/2020 0 4:42:15 Performing Organization Address [facility] Phone Number RIS POC ACTIVATED CLOTTING TIME (01/11/2020 10:51 AM CDT)Only the most recent of3 resultswithin the time period is included. Activated Clotting Time 362Comment: : 74-137 sec [facility] seconds, Baseline: [facility]ED [facility] [address], [address]: Job Change Crew Member/Cartography/Mapping Technician ID = [id number] for TY RODARTE Specimen Blood Performing Organization Address [facility] Phone Number [facility] MEDICAL [address] [place] [address] CENTER Transesophageal echo (01/11/2020 9:12 AM CDT) Ejection Fraction [facility] ECHO HEAR TLAB MKCitymapsON [facility] Specimen Narrative Performed At Transesophageal Echocardiography Report (LINDA) [facility] ECHO HEARTLAB MK[facility]ON CPA Demographics Patient Name QUIANA VALLADARES Date of Study 01/11/2020 KARINA [id number] GenderFem edwin Visit Number [id number] RaceCauc [id number] Number [id number] Number Date of Birth1955 Referring Physician Helio Buitrago MD Age64 year(s) Outdoor Adventure Instructor Rob murphy MD Physician Procedure Type of Study LINDA procedure:TRANSESOPHA GEAL ECHO Indications:Patent foramen ovale (PFO). Clinical History ACID REFLUX,ASTHMA,COLON CANCER,DM,HTN,S/P TAVR 11/22/19 Height: 66 inches Weight: 56.7 kg (125 lbs) BSA: 1.64 m^2 BMI: 20.18 kg/m^2 HR: 73 bpm BP: 147/85 mmHg Summary Procedural LINDA to guide PFO closure by Amplatzer device. Pre procedural LINDA 1. Aneurysmal, hypermobile, redundant interatrial septum is noted. Atrial septal position continuously bows ivig-hz-ozord, consistent with elevated LA pressure. There was a PFO noted. 2. A percutaneous (TAVR) biologic AoV prosthesis is visualized and appears well-seated. Normal leaflet excursion noted. Mild paravalvular aortic regurgitation. 3. Low Normal overall left ventricular systolic function. The right ventricular chamber size and systolic function are within normal limits. 4. No significant pericardial effusion is visualized. Intra and post procedural LINDA 1. Successfully deployed Ampltzer device with no evidence of residual shunting. 2. Stable LV and RV systolic function. 3. No pericardial effusion noted. Signature Findings Rhythm/BP Interventional LINDA (cpt 39233) for guidance of percutaneous intracardiac procedure. LeftNormal left ventricular chamber size. Normal wall thickness. Ventricle Low Normal overall left ventricular systolic function. No apparent segmental wall motion abnormalities. Left Atrium LA is enlarged. LA appendage morphology is simple (wind sock). No LA appendage Thrombus visualized. LA append age velocities are normal range (>40 cm/s) . Right The right ventricular chamber size and systolic function are Ventricle within normal limits. Right AtriumRA size is normal. Atrial Septum Aneurysmal, hypermobile, redundant interatrial septum is noted. Atrial septal position continuously bows [id number], consistent with elevated LA pressure. PF O noted. Aortic ValveA percutaneous (TAVR) biologic AoV prosthesis is visualized . The prosthetic AoV appears well-seated. Mild paravalvular aortic regurgitation. Mitral ValveNormal MV structure and function by available views and Doppler. Tricuspid Normal TV structure and function by available views and Valve Doppler. Unable to estimate peak systolic PA pressure; inadequate TR velocity si gnal. PulmonicNormal PV structure and function by limited views and Valve Doppler. Pericardium No significant pericardial effusion is visualized. Procedure Note Interface, External Ris In - 01/11/2020 8:46 PM CDT Transesophageal Echocardiography Report (LINDA) Demographics Patient Name QUIANA VALLADARES Date of Study 01/11/2020 KARINA Gender Female Visit Number [id number] Race [place] [address] Number Date of 1955 Referri Physician Helio Buitrago MD Age 64 year(s) Baldemar Rivas [facility] Intermd eting Donato Beth MD Physici an Procedure Type of Study LINDA procedure:TRANSESOPHAGEAL ECHO Indications:Patent foramen ovale (PFO). Clinical History ACID REFLUX,ASTHMA,COLON CANCER,DM,HTN,S /P TAVR 11/22/19 Height: 66 inches Weight: 56.7 kg (125 l bs) BSA: 1.64 m^2 BMI: 20.18 kg/m^2 HR: 73 bpm BP: 147/85 mmHg Summary Procedural LINDA to guide PFO closure by Amplatzer device. Pre procedural LINDA 1. Aneurysmal, hypermobile, redundant i nteratrial septum is noted. Atrial septal position continuously bows left- to-right, consistent with elevated LA pressure. There was a PFO noted. 2. A percutaneous (TAVR) biologic AoV p rosthesis is visualized and appears well-seated. Normal leaflet excursion n oted. Mild paravalvular aortic regurgitation. 3. Low Normal overall left ventricular systolic function. The right ventricular chamber size and systolic f unction are within normal limits. 4. No significant pericardial effusion is visualized. Intra and post procedural LINDA 1. Successfully deployed Ampltzer devic e with no evidence of residual shunting. 2. Stable LV and RV systolic function. 3. No pericardial effusion noted. Signature Findings Rhythm/BP Interventional LINDA (cpt 9 3157) for guidance of percutaneous intracardiac procedure. Left Normal left ventricular c hamber size. Normal wall thickness. Ventricle Low Normal overall left v entricular systolic function. No apparent segmental wall m otion abnormalities. Left Atrium LA is enlarged. LA append age morphology is simple (wind sock). No LA appendage Th rombus visualized. LA appendage velocities are normal ran ge (>40 cm/s) . Right The right ventricular charito mber size and systolic function are Ventricle within normal limits. Right Atrium RA size is normal. Atrial Septum Aneurysmal, hypermobile, redundant interatrial septum is noted. Atrial septal posi tion continuously bows [id number]-[id number], consistent with elevated LA pressure. PFO noted. Aortic Valve A percutaneous (TAVR) bio logic AoV prosthesis is visualized . The prosthetic AoV appear s well-seated. Mild paravalvular aortic regurgitation. Mitral Valve Normal MV structure and f unction by available views and Doppler. Tricuspid Normal TV structure and f unction by available views and Valve Doppler. Unable to estimate peak s ystolic PA pressure; inadequate TR velocity signal. Pulmonic Normal PV structure and f unction by limited views and Valve Doppler. Pericardium No significant pericardia l effusion is visualized. Performing Organization Address City/State/Zipcode Phone Number [facility] ECHO HEARTLAB MKCKESSON CPACS ECG 12 lead (01/11/2020 7:34 AM CDT)Only the most recent of3 resultswithin the time period is included. Specimen Narrative Performed At Ventricular Rate 66 BPM [facility] Atrial Rate 66 BPM P-R Interval 160 ms QRS Duration 90 ms Q-T Interval 426 ms QTC Calculation(Bazett) 446 ms P Swoope 76 degrees R Swoope 49 degrees T Swoope 51 degrees Normal sinus rhythm Low voltage QRS Within normal limits When compared with ECG of 23-NOV-2019 11 :50, Significant changes have occurred Confirmed by MD Orellana Roberto ([id number]) on 01/10 1:40:18 PM Procedure Note Interface, External Ris In - 01/11/2020 1:40 PM CDT Ventricular Rate 66 BPM Atrial Rate 66 BPM P-R Interval 160 ms QRS Duration 90 ms Q-T Interval 426 ms QTC Calculation(Bazett) 446 ms P Swoope 76 degrees R Swoope 49 degrees T Swoope 51 degrees Normal sinus rhythm Low voltage QRS Within normal limits When compared with ECG of 23-NOV-2019 11 :50, Significant changes have occurred Confirmed by MD Orellana Roberto ([id number]) on 01/11/2020 1:40:18 PM Performing Organization Address City/[facility] Phone Number [facility] TRANSFUSION SERVICE REPORT - SCAN (01/09/2020 5:53 PM CDT)Only the most recent of5 resultswithin the time period is included. Narrative Performed At This result has an attachment that is no t available. SARS-CoV2/RT-PCR (Asymptomatic ONLY) (01/08/2020 10:31 AM CDT) SARS-COV2/RT-PCR Negative Not Detected, Negative [facility] NON -INTERFACED REFERENCE LABS SARS-COV-2 PERFORMING LAB CPL [facility] N ON-INTERFACED REFERENCE LABS Specimen Other Performing Organization Address City/State/Zipcode Phone Number [facility] NON-INTERFACED REFERENCE LABS Type and screen, automated (01/08/2020 9:29 AM CDT)Only the most recent of3 resultswithin the time period is included. ABO/RH AUTOMATED (BEAKER) O POSITIVE [facility] Ab Scrn NEGATIVE [facility] Specimen Blood Performing Organization Address [facility] Phone Number [address] [phone] Prothrombin time/INR (01/08/2020 9:29 AM CDT)Only the most recent of16 results within the time period is included. Protime 13.7 11.9 - 14.2 seconds [facility] INR 1.1 <=5.9 [facility] Specimen Blood Narrative Performed At Effective 01/25/2019: PT Reference Range [facility] Change New: 11.9-14.2Previous: 11.7-14.7 RECOMMENDED COUMADIN/WARFARIN INR THERAPY RANGES STANDARD DOSE: 2.0-3.0Includes: PROPHYLAXIS for venous thrombosis, systemic embolization; TREATMENT for venous thrombosis and/or pulmonary embolus. HIGH RISK: Target INR is 2.5-3.5 for patients wiht mechanical heart valves. Performing Organization Address [facility] Phone Number [address] [address] CENTER POC-Glucose meter (12/07/2019 8:02 AM CDT)Only the most recent of80 results within the time period is included. POC-Glucose Meter 115 (H)Comment: : TESTED 70 - 110 mg/dL [facility] AT [address], [address]: Job Change Crew Member/Cartography/Mapping Technician ID = [id number] for VIVIANE KINGSTON Specimen Blood Performing Organization Address [facility] Phone Number [address] [phone] CENTER aPTT (12/07/2019 3:47 AM CDT)Only the most recent of22 resultswithin the time period is included. PTT 82.1 (H) 22.5 - 36.0 seconds [facility] Specimen Blood Narrative Performed At While on warfarin. [facility] Performing Organization Address City/State/Zipcode Phone Number [facility] [address] [place] [address] CENTER ECHOCARDIOGRAM REPORT - SCAN (12/05/2019 9:11 PM CDT) Narrative Performed At This result has an attachment that is no t available. Transesophageal echo (12/05/2019 9:26 AM CDT) Ejection Fraction [facility] ECHO HEAR TLAB MKCKESSON CPA Specimen Narrative Performed At Transesophageal Echocardiography Report (LINDA) [facility] ECHO HEARTLAB [facility] CPACS Demographics Patient Name QUIANA VALLADARES Date of Study 12/05/2019 KARINA [id number] GenderFem edwin Visit Number [id number] RaceCauc [id number] Number [id number] Number Date of Birth1955 Referring Physician Helio Buitrago MD Age64 year(s) Outdoor Adventure Instructor Rob murphy MD Physician Fellow Valery Chirinos Procedure Type of Study LINDA procedure:TRANSESOPHA GEAL ECHO Indications:Stroke . Clinical History ACID REFLUX,ASTHMA,CANCER,DMII,HTN,S/P TAVR 11/22/2019 Height: 65 inches Weight: 50.35 kg (111 lbs) BSA: 1.54 m^2 BMI: 18.47 kg/m^2 HR: 52 bpm BP: 109/56 mmHg Procedure Informed Consent LINDA procedure notes Under my direct supervision, intravenous moderate sedation was administered during the course of this procedure, with continuous monitoring of hemodynamic parameters. Moderation sedation was achieved with 3 mgs of Versed and 75 mg of Fentanyl. Monitoring of the patients vital signs, EKG and respiratory status was provided by trained nursing staff during the entire course of the procedures and under my supervision and recoded in the patient's medical record. Total time of sedation was > 30 minutes.. Summary 1. Aneurysmal, hypermobile, redundant interatrial septum is noted. Atrial septal position continuously bows wwxh-yb-czrnl, consistent with elevated LA pressure. Intermittently, with coughing - the interatrial septum would bow to the left. - There was a small amount of right to left shunting with bubble study at rest and with valsalva, but we were unable to capture it to the same degree as was noted on the TTE (which was significant at rest and with valsalva). 2. A percutaneous (TAVR) biologic AoV prosthesis is visualized and appears well-seated. Normal leaflet excursion noted. Mild paravalvular aortic regurgitation. 3. Low Normal overall left ventricular systolic function. The right ventricular chamber size and systolic function are within normal limits. 4. No significant pericardial effusion is visualized. Previous Study Compared to prior study dated 11/30/2019, PFO was better demonstrated on prior study. Signature Findings Rhythm/BPSinus bradycardia during the exam. 3D imaging (cpt 13191) rendering with interpretation was performed. Left Normal left ventricular chamber size. Normal wall thickness. VentricleLow Normal overall left ventricular systolic function. No apparent segmental wall motion abnormalities. Left AtriumLA is enlarged. LA appendage morphology is simple (wind sock). No LA appendage Thrombus visualized. LA appendage velocities are normal range (>40 cm/s) . RightThe right ventricular chamber size and systolic function are Ventriclewithin normal limits. Right Atrium RA size is normal. Atrial Aneurysmal, hypermobile, redundant interatrial septum is Septum noted. Atrial septal position continuously bows [id number]-aa-[id number], consistent with elevated LA pressure. Intermittently, with coughing - the interatrial septum would bow to the l eft. There was a small amount of right to left shunting with bubble study at rest and with valsalva, but we were unable to capture it to the same degree as was noted on the TTE (which was significant at rest and with valsalva). Aortic Valve A percutaneous (TAVR) biologic AoV prosthesis is visualized . The prosthetic AoV appears well-seated. Mild paravalvular aortic regurgitation. Mitral Valve Normal MV structure and function by available views and Doppler. TricuspidNormal TV structure and function by available views and ValveDoppler. Unable to estimate peak systolic PA pressure; inadequate TR velocity sig nal. Pulmonic Normal PV structure and function by limited views and ValveDoppler. AortaAortic root size (SInus of Valsalva diameter) is normal . The aortic sinotubular junction appears normal . Proximal ascending aorta size is normal . Grade 3 plaque (atheroma < 2mm) in the aortic arch. PericardiumNo significant pericardial effusion is visualized. Procedure Note Interface, External Ris In - 12/05/2019 12:16 PM CDT Transesophageal Echocardiography Report (LINDA) Demographics Patient Name QUIANA VALLADARES Date of Study 12/05/2019 KARINA Gender Female Visit Number [id number] Race [place] [address] Number Date of 1955 Referri Physician Helio Buitrago MD Age 64 year(s) Baldemar Zurita Interpr eting Donato Beth MD Physici an Fellow Valery Chirinos Procedure Type of Study LINDA procedure:TRANSESOPHAGEAL ECHO Indications:Stroke . Clinical History ACID REFLUX,ASTHMA,CANCER,DMII,HTN,S/P T AVR 11/22/2019 Height: 65 inches Weight: 50.35 kg (111 lbs) BSA: 1.54 m^2 BMI: 18.47 kg/m^2 HR: 52 bpm BP: 109/56 mmHg Procedure Informed Consent LINDA procedure notes Under my direct supervision, intravenou s moderate sedation was administered during the course of this procedure, with continuous monitoring of hemodynamic parameters. M oderation sedation was achieved with 3 mgs of Versed and 75 mg of Fenta nyl. Monitoring of the patients vital signs, EKG and respiratory status was provided by trained nursing staff during the entire course of the p rocedures and under my supervision and recoded in the patient's medical re cord. Total time of sedation was > 30 minutes.. Summary 1. Aneurysmal, hypermobile, redundant i nteratrial septum is noted. Atrial septal position continuously bows left- to-right, consistent with elevated LA pressure. Intermittently, with cough ing - the interatrial septum would bow to the left. - There was a small amount of right to left shunting with bubble study at rest and with valsalva, but we were fred ble to capture it to the same degree as was noted on the TTE (which w as significant at rest and with valsalva). 2. A percutaneous (TAVR) biologic AoV p rosthesis is visualized and appears well-seated. Normal leaflet excursion n oted. Mild paravalvular aortic regurgitation. 3. Low Normal overall left ventricular systolic function. The right ventricular chamber size and systolic f unction are within normal limits. 4. No significant pericardial effusion is visualized. Previous Study Compared to prior study dated 11/30/2019, PFO was better demonstrated on prior study. Signature Findings Rhythm/BP Sinus bradycardia during t he exam. 3D imaging (cpt 13543) miquel kyeing with interpretation was performed. Left Normal left ventricular ch estefanía size. Normal wall thickness. Ventricle Low Normal overall left ve ntricular systolic function. No apparent segmental wall mo tion abnormalities. Left Atrium LA is enlarged. LA appenda ge morphology is simple (wind sock). No LA appendage Thr ombus visualized. LA appendage velocities are normal rang e (>40 cm/s) . Right The right ventricular heidi prince size and systolic function are Ventricle within normal limits. Right Atrium RA size is normal. Atrial Aneurysmal, hypermobile, r edundant interatrial septum is Septum noted. Atrial septal posit ion continuously bows [id number]-zu-[id number], consistent with elevated LA pressure. Intermittently, with cough ing - the interatrial septum would bow to the left. There was a small amount o f right to left shunting with bubble study at rest and w ith valsalva, but we were unable to capture it to the same deg ree as was noted on the TTE (which was significant at rest an d with valsalva). Aortic Valve A percutaneous (TAVR) biol ogic AoV prosthesis is visualized . The prosthetic AoV appears well-seated. Mild paravalvular aortic r egurgitation. Mitral Valve Normal MV structure and fu nction by available views and Doppler. Tricuspid Normal TV structure and fu nction by available views and Valve Doppler. Unable to estimate peak sy stolic PA pressure; inadequate TR velocity signal. Pulmonic Normal PV structure and fu nction by limited views and Valve Doppler. Aorta Aortic root size (SInus of Valsalva diameter) is normal . The aortic sinotubular neela ction appears normal . Proximal ascending aorta s ize is normal . Grade 3 plaque (atheroma < 2mm) in the aortic arch. Pericardium No significant pericardial effusion is visualized. Performing Organization Address City/State/Zipcode Phone Number [facility] CPACS PT/aPTT (12/04/2019 6:13 AM CDT)Only the most recent of8 resultswithin the time period is included. Protime 15.9 (H) 11.9 - 14.2 seconds [facility] INR 1.3 <=5.9 [facility] PTT 90.4 (H) 22.5 - 36.0 seconds [facility] Specimen Blood Narrative Performed At Effective 01/25/2019: PT Reference Range [facility] Change New: 11.9-14.2Previous: 11.7-14.7 RECOMMENDED COUMADIN/WARFARIN INR THERAPY RANGES STANDARD DOSE: 2.0-3.0Includes: PROPHYLAXIS for venous thrombosis, systemic embolization; TREATMENT for venous thrombosis and/or pulmonary embolus. HIGH RISK: Target INR is 2.5-3.5 for patients wiht mechanical heart valves. While on warfarin. While on warfarin. Performing Organization Address City/State/Zipcode Phone Number [place] [phone] [place], [place] [phone] MCGREW D-dimer (12/02/2019 5:15 AM CDT) D-Dimer, Quant 0.42 <0.50 MG/L FEU [facility] Specimen Blood Narrative Performed At Intended Use: The D-Dimer Assay can be used [facility] to aid in the diagnosis of Deep Vein Thrombosis (DVT) and Pulmonary Embolism Disease (PED). In patients with low pre-test probability, various studies concerning STA Liatest D-dimer test have reported that with a cutoff value of 0.50 MG/L FEU, the Negative Predictive Value (NPV) regarding the exclusion of thrombosis is within 95-100% range. While on warfarin. Performing Organization Address [facility]/Zipcode Phone Number [address] [address] [place] PERIPHERAL VASCULAR REPORT - SCAN (12/01/2019 9:20 PM CDT)Only the most recent of2 resultswithin the time period is included. Narrative Performed At This result has an attachment that is no t available. Venous doppler legs bilateral (12/01/2019 9:59 AM CDT)Only the most recent of2 resultswithin the time period is included. Ejection Fraction [facility] ECHO HEAR TLAB [facility] Specimen Impressions Performed At Right Impression [facility]ART[facility] 1. There is no deep venous obstruction in the common femoral, profunda femoral, femoral, popliteal, posterior tibial or peroneal veins. 2. There is no superficial venous obstruction in the great saphenous vein. Left Impression 1. There is no deep venous obstruction in the common femoral, profunda femoral, femoral, popliteal, posterior tibial or peroneal veins. 2. There is no superficial venous obstruction in the great saphenous vein. Conclusions Summary Venous duplex imaging and compression of the bilateral lower extremities were performed. The veins were adequately visualized. The bilateral venous systems were patent and compressible with no evidence of thrombus. The venous Doppler waveforms were phasic with respiration . Signature Velocities are measured in cm/s ; Diameters are measured in cm Narrative Performed At LAB - Lower Extremities DVT Study [facility]CHO HEARTLAB [facility] Demographics Patient Name QUIANA VALLADARES Date of Study12/01/2019 [id number] 2 Visit Number [id number] Female Accession Number [id number] [facility]1955 [id number] Stuart SonographerNomi Lara [facility] Interpreting Christa Carter Physician Procedure Type of Study: Veins: Lower Extremities DVT Study, VENOUS DOPPLER LEG, BILATERAL. Indications for Study:Stroke and PFO . Patient Status:Routine. Study Location:Portable. Technical Quality:Adequate visualization . Risk Factors History of Disease + +----+ + !Diagnosis!Date!Co mments ! + +----+ + !History/Risk Factors:!!Cancer, HTN, DM ! + +----+ + !Other! !Acid Reflux, Asthma, Heart Cath! + +----+ + Procedure Note Interface, External Ris In - 12/01/2019 1:06 PM CDT PV LAB - Lower Extremities DVT Study Demographics Patient Name QUIANA VALLADARES Da te of Study 12/01/2019 Ag e 64 Visit Number [id number] Ge nder Female Accession Number [id number] Da te of 1955 Referring Nickolas Coffey om Number [id number] Physician MD Nicolasa Outdoor Adventure Instructor Nomi Lara RVT In terpreting Christa Carter Ph ysician Procedure Type of Study: Veins: Lower Extremities DVT Study, MARIA DEL ROSARIO OUS DOPPLER LEG, BILATERAL. Indications for Study:Stroke and PFO . Patient Status:Routine. Study Location:Portable. Technical Quality:Adequate visualization . Risk Factors History of Disease + +----+-------- + !Diagnosis !Date!Comments ! + +----+-------- + !History/Risk Factors: ! !Cancer, HTN, DM ! + +----+-------- + !Other ! !Acid Ref lux, Asthma, Heart Cath ! + +----+-------- + Impressions Right Impression 1. There is no deep venous obstruction i n the common femoral, profunda femoral, femoral, popliteal, posterior t ibial or peroneal veins. 2. There is no superficial venous obstru ction in the great saphenous vein. Left Impression 1. There is no deep venous obstruction i n the common femoral, profunda femoral, femoral, popliteal, posterior t ibial or peroneal veins. 2. There is no superficial venous obstru ction in the great saphenous vein. Conclusions Summary Venous duplex imaging and compression o f the bilateral lower extremities were performed. The veins were adequate ly visualized. The bilateral venous systems were patent and compressible wi th no evidence of thrombus. The venous Doppler waveforms were phasic wi th respiration . Signature Velocities are measured in cm/s ; Diamet ers are measured in cm Performing Organization Address City/State/Zipcode Phone Number [facility] - SCAN (11/30/2019 9:10 PM CDT) Narrative Performed At This result has an attachment that is no t available. 2D Echo W/Doppler(CW/PW/Color) (11/30/2019 4:13 PM CDT) Ejection Fraction [facility] ECHO HEAR TLAB [facility] Specimen Narrative Performed At Transthoracic Echocardiography Report (T TE) [facility]CHO [facility] Demographics Patient Name Viji VALLADARES of Study 11/30/2019 KARINA [id number] Gender Female Visit Number [id number] [id number] Room Number [id number] Number Date of Birth1955Referring Physician Briseida Vo MD Age64 year(s)Outdoor Adventure Instructor Viola Beth MD Physician Procedure Type of Study TTE procedure:2DECHO W DOPPLER(CW/PW/COLOR) (Routine) Indications:Suspected cardiac source of emboli. Clinical History Former Smoker, R/L Cath (11/01/19), TAVR (11/22/19), Colon Cancer, DMII, HTN Contrast Medium: Bubble Study. Height: 65 inches Weight: 50.35 kg (111 lbs) BSA: 1.54 m^2 BMI: 18.47 kg/m^2 HR: 54 bpm BP: 104/65 mmHg Summary 1. The left ventricle is chamber size (by vol index) is mildly enlarged. Normal LV wall thickness. All of the LV segments have low normal contractility . Estimated LVEF by qualitative assessment is lower limits of normal (50-55%). Grade 1 diastolic dysfunction (impaired relaxation with mildly elevated LA pressure). 2. Normal right ventricle structure and function. Normal right atrium. Unable to estimate peak systolic PA pressure; inadequate TR velocity signal. 3. A percutaneous (TAVR) biologic AoV prosthesis is visualized and appears well-seated with normal function by Doppler. AoV dimensionless obstructive index (DOI)) is 0.5. Prosthetic AoV regurgitaton is mild. 4. Hypermobile, redundant interatrial septum is noted. IV saline contrast injection demonstrates a large PFO (patent foramen ovale) at rest and post Valsalva . Previous Study In comparison with the prior exam 11/22/2019 the following changes are noted: PFO noted . Signature Findings Left Ventricle The left ventricle is chamber size (by vol index) is mildly enlarged (female - LVED 62-70ml/m 2). No rmal LV wall thickness. All of the LV se gments daugherty ve low normal contractility . Estimated LVEF by qu alitative assessment is lower limits of normal (5 0-55%) . Grade 1 diastolic dysfunction ( impaired re laxation with mildly elevated LA pressur e). Left AtriumLA size is normal . Right VentricleNormal right ventricle structure and function. Right Atrium Normal right atrium. Atrial SeptumHypermobile, redundant interatrial septum is noted. IV saline contrast injection demonstrates a PFO (p atent foramen ovale) at rest and post Va lsalva . Aortic Valve A percutaneous (TAVR) biologic AoV prosthesis is vi sualized . The prosthetic AoV appears we ll-seated wi th normal function by Doppler. Prostheti c AoV re gurgitaton is mild . Prosthetic AR locat ions(s) ar e paravalvular at approximately 5 o''amber ck. . Ao V dimensionless obstructive index (DOI)) is 0.5. Pe ak Grad;16 mmHg,Mean Grad; 8 mmHg. Mitral Valve Mild MV leaflet thickening. Trace mitral re gurgitation. Tricuspid ValveA trace of tricuspid regurgitation. Un able to estimate peak systolic PA pressu re; in adequate TR velocity signal. Pulmonic Valve Normal PV structure and function by limited views an d Doppler. PericardiumNo evidence of pericardial effusion. IVC/SVC/PA/PV/PleuralThe estimated RA pressure by IVC dynamics 5-10mmHg . Chambers/Structures Left Atrium LA Volume: 36.04 ml LA Area: 15.41 cm^2 LA Vol. Index: 23 ml/m^2 Left Ventricle LVIDd: 4.79 cm LV Septum Diastolic: 1.1 cm LV PW Diastolic: 0.82 cm LVEDV Gutierrez's:122.71 ml LVESV Gutierrez's:60.91 ml LVEF Gutierrez's: 50.1 % LVEDVI: 80 ml/m^2 LVESVI: 40 ml/m^2 LVOT Diameter: 1.91 cm Aorta Ascending Aorta: 3.7 cm Doppler/Quantitative Measurements Mitral Valve MV Peak E-Wave: 0.8 m/s MV Peak A-Wave: 1.04 m/s E/A Ratio: 0. 78 Peak Gradient: 2.59 mmHg Deceleration Time: 237.9 msec MV Michael. Peak: Tissue Doppler E' Lateral Velocity: 0.07 m/s E/E': 11.52 Aortic Valve Peak Velocity: 2 m/s Mean Velocity: 1.31 m/s Peak Gradient: 15.98 mmHgMean Gradient: 7.99 mmHg AV Area (continuity): 1.42 cm^2 AV VTI: 45.35 cm AV DVI: 0.5 LVOT Peak Velocity: 0.78 m/s Peak Gradient: 2.41 mmHg Mean Velocity: 0.52 m/s Mean Gradient: 1.26 mmHg LVOT Diameter: 1.91 cmLVOT VTI: 22.53 cm LVOT Area: 2.87 cm^2LVOT SV:64.52 ml LVOT CO: 3.48 l/min LVOT CI: 2.26 l/min/m^2 Procedure Note Interface, External Ris In - 11/30/2019 5:12 PM CDT Transthoracic Echocardiography Report (TTE) Demographics Patient Name QUIANA VALLADARES Date o Study 11/30/2019 KARINA Gender Female Visit Number [id number] [address] [place] [address] Number Date of 1955 Referr ing Physician Briseida Vo MD Age 64 year(s) Sonogr apher Viola Hargrove Interp reting Donato Beth MD Physic markos Procedure Type of Study TTE procedure:2DECHO W DOPPLE R(CW/PW/COLOR) (Routine) Indications:Suspected cardiac source of emboli. Clinical History Former Smoker, R/L Cath (11/01/19), TAVR ( 11/22/19), Colon Cancer, DMII, HTN Contrast Medium: Bubble Study. Height: 65 inches Weight: 50.35 kg (111 lbs) BSA: 1.54 m^2 BMI: 18.47 kg/m^2 HR: 54 bpm BP: 104/65 mmHg Summary 1. The left ventricle is chamber size ( by vol index) is mildly enlarged. Normal LV wall thickness. All of the LV segments have low normal contractility . Estimated LVEF by quali tative assessment is lower limits of normal (50-55%). Grade 1 diastolic d ysfunction (impaired relaxation with mildly elevated LA pressure). 2. Normal right ventricle structure and function. Normal right atrium. Unable to estimate peak systolic PA pre ssure; inadequate TR velocity signal. 3. A percutaneous (TAVR) biologic AoV p rosthesis is visualized and appears well-seated with normal function by Dop pler. AoV dimensionless obstructive index (DOI)) is 0.5. Prosthetic AoV reg urgitaton is mild. 4. Hypermobile, redundant interatrial s eptum is noted. IV saline contrast injection demonstrates a large PFO (pat ent foramen ovale) at rest and post Valsalva . Previous Study In comparison with the prior exam 2019 the following changes are noted: PFO noted . Signature Findings Left Ventricle The left ventric le is chamber size (by vol index) is mildly enlarg ed (female - LVED 62-70ml/m2). Normal LV wall t hickness. All of the LV segments have low normal contractility . Estimated LVEF by qualitative asse ssment is lower limits of normal (50-55%) . Grade 1 diastolic dysfunction (impaired relaxation with mildly elevated LA pressure). Left Atrium LA size is sherie l . Right Ventricle Normal right maria del rosario tricle structure and function. Right Atrium Normal right atr ium. Atrial Septum Hypermobile, red undant interatrial septum is noted. IV saline contra st injection demonstrates a PFO (patent foramen ovale) at rest and post Valsalva . Aortic Valve A percutaneous ( TAVR) biologic AoV prosthesis is visualized . The prosthetic AoV appears well-seated with normal func tion by Doppler. Prosthetic AoV regurgitaton is mild . Prosthetic AR locations(s) are paravalvular at approximately 5 o''clock. . AoV dimensionles s obstructive index (DOI)) is 0.5. Peak Grad;16 mmH g,Mean Grad; 8 mmHg. Mitral Valve Mild MV leaflet thickening. Trace mitral regurgitation. Tricuspid Valve A trace of tricu spid regurgitation. Unable to estima te peak systolic PA pressure; inadequate TR ve locity signal. Pulmonic Valve Normal PV struct ure and function by limited views and Doppler. Pericardium No evidence of p ericardial effusion. IVC/SVC/PA/PV/Pleural The estimated RA pressure by IVC dynamics 5-10mmHg . Chambers/Structures Left Atrium LA Volume: 36.04 ml LA Area: 15.41 cm^2 LA Vol. Index: 23 ml/m^2 Left Ventricle LVIDd: 4.79 cm LV Septum Diastolic: 1.1 cm LV PW Diastolic: 0.82 cm LVEDV Gutierrez's:122.71 ml LVESV Gutierrez's:60.91 ml LVEF Gutierrez's: 50.1 % LVEDVI: 80 ml/m^2 LVESVI: 40 ml/m^2 LVOT Diameter: 1.91 cm Aorta Ascending Aorta: 3.7 cm Doppler/Quantitative Measurements Mitral Valve MV Peak E-Wave: 0.8 m/s M V Peak A-Wave: 1.04 m/s E /A Ratio: 0.78 P eak Gradient: 2.59 mmHg D eceleration Time: 237.9 msec MV Michael. Peak: Tissue Doppler E' Lateral Velocity: 0.07 m/s E /E': 11.52 Aortic Valve Peak Velocity: 2 m/s Mean Velocity: 1.31 m/s Peak Gradient: 15.98 mmHg Mean Gradient: 7.99 mmHg AV Area (continuity): 1.42 cm^2 AV VTI: 45.35 cm AV DVI: 0.5 LVOT Peak Velocity: 0.78 m/s Pea k Gradient: 2.41 mmHg Mean Velocity: 0.52 m/s Lin n Gradient: 1.26 mmHg LVOT Diameter: 1.91 cm LVO T VTI: 22.53 cm LVOT Area: 2.87 cm^2 LVO T SV:64.52 ml LVOT CO: 3.48 l/min LVO T CI: 2.26 l/min/m^2 Performing Organization Address City/State/Zipcode Phone Number [facility] ECHO HEARTLAB [facility] MR brain without IV contrast (11/29/2019 11:06 PM CDT) Specimen Narrative Performed At FINAL REPORT [facility] MR, BRAIN, WITHOUT CONTRAST, MR, MRA, NE CK, WITHOUT IV CONTRAST, MR, MRA, BRAIN, WITHOUT CONTRAST INDICATION: Ischemic Stroke Evaluation thalamic stroke on CT TECHNIQUE: Multiplanar, multisequence MR images of the brain.3-D time of flight MRA of the cranial and ce rvical circulation. 2-D time of flight MRA of the neck. 3D MIP angiog raphic post-processing was performed. Stenosis evaluation utilized NASCET criteria. COMPARISON: Noncontrast brain CT of the same date FINDINGS: MRI BRAIN: Well-demarcated 2 cm DWI hyperintensity within the medial left thalamus associated with T2 FLAIR hyperi ntensity. Additional 3 mm infarct within the right parietal subcor tical white matter. No midline shift or hydrocephalus. No acute intracranial hemorrhage. Tmax-ri-mwkfthka nonspecific supratentor ial and infratentorial white matter T2 FLAIR hyperintensities. Orbits , globes, paranasal sinuses, mastoid air cells and calvarium are unre markable. MRA BRAIN: Internal carotid arteries: Patent. Middle cerebral arteries: Patent to dist al branches. Anterior cerebral arteries: Intact. Basilar system: Patent vertebrobasilar s ystem. Posterior cerebral arteries:Patent beyon d the quadrigeminal segments. Additional findings: None. MRA NECK: Common carotid arteries: Unremarkable. Bifurcations: No flow-limiting stenosis. Cervical internal carotid arteries: No f low limiting stenosis. Vertebral arteries: Codominant. No origi n or extracranial stenosis. IMPRESSION: Left thalamic acute ischemic infarct. Ad ditional 3 mm right parietal lobe subcortical acute infarct. Mild to moderate chronic microvascular i schemic changes No flow limiting stenosis in the major b ranch vessels of the cervical or cranial circulation. Signed: Silvano Kirby MD Report Verified Date/Time:11/29/2019 23:14:20 Procedure Note Interface, External Ris In - 11/29/2019 11:16 PM CDT FINAL REPORT MR, BRAIN, WITHOUT CONTRAST, MR, MRA, NE CK, WITHOUT IV CONTRAST, MR, MRA, BRAIN, WITHOUT CONTRAST INDICATION: Ischemic Stroke Evaluation thalamic stroke on CT TECHNIQUE: Multiplanar, multisequence MR images of the brain. 3-D time of flight MRA of the cranial and ce rvical circulation. 2-D time of flight MRA of the neck. 3D MIP angiog raphic post-processing was performed. Stenosis evaluation utilized NASCET criteria. COMPARISON: Noncontrast brain CT of the same date FINDINGS: MRI BRAIN: Well-demarcated 2 cm DWI hyperintensity within the medial left thalamus associated with T2 FLAIR hyperi ntensity. Additional 3 mm infarct within the right parietal subcor tical white matter. No midline shift or hydrocephalus. No acute intracranial hemorrhage. Zdbb-eu-qplscejm nonspecific supratentor ial and infratentorial white matter T2 FLAIR hyperintensities. Orbits , globes, paranasal sinuses, mastoid air cells and calvarium are unre markable. MRA BRAIN: Internal carotid arteries: Patent. Middle cerebral arteries: Patent to dist al branches. Anterior cerebral arteries: Intact. Basilar system: Patent vertebrobasilar s ystem. Posterior cerebral arteries:Patent beyon d the quadrigeminal segments. Additional findings: None. MRA NECK: Common carotid arteries: Unremarkable. Bifurcations: No flow-limiting stenosis. Cervical internal carotid arteries: No f low limiting stenosis. Vertebral arteries: Codominant. No origi n or extracranial stenosis. IMPRESSION: Left thalamic acute ischemic infarct. Ad ditional 3 mm right parietal lobe subcortical acute infarct. Mild to moderate chronic microvascular i schemic changes No flow limiting stenosis in the major b ranch vessels of the cervical or cranial circulation. Signed: Silvano Kirby MD Report Verified Date/Time: 11/29/2019 2 3:14:20 Performing Organization Address City/State/Zipcode Phone Number [place] MRA neck without IV contrast (11/29/2019 11:06 PM CDT) Specimen Narrative Performed At FINAL REPORT [place] MR, BRAIN, WITHOUT CONTRAST, MR, MRA, NE CK, WITHOUT IV CONTRAST, MR, MRA, BRAIN, WITHOUT CONTRAST INDICATION: Ischemic Stroke Evaluation thalamic stroke on CT TECHNIQUE: Multiplanar, multisequence MR images of the brain.3-D time of flight MRA of the cranial and ce rvical circulation. 2-D time of flight MRA of the neck. 3D MIP angiog raphic post-processing was performed. Stenosis evaluation utilized NASCET criteria. COMPARISON: Noncontrast brain CT of the same date FINDINGS: MRI BRAIN: Well-demarcated 2 cm DWI hyperintensity within the medial left thalamus associated with T2 FLAIR hyperi ntensity. Additional 3 mm infarct within the right parietal subcor tical white matter. No midline shift or hydrocephalus. No acute intracranial hemorrhage. Pqsf-fc-uqkazymg nonspecific supratentor ial and infratentorial white matter T2 FLAIR hyperintensities. Orbits , globes, paranasal sinuses, mastoid air cells and calvarium are unre markable. MRA BRAIN: Internal carotid arteries: Patent. Middle cerebral arteries: Patent to dist al branches. Anterior cerebral arteries: Intact. Basilar system: Patent vertebrobasilar s ystem. Posterior cerebral arteries:Patent beyon d the quadrigeminal segments. Additional findings: None. MRA NECK: Common carotid arteries: Unremarkable. Bifurcations: No flow-limiting stenosis. Cervical internal carotid arteries: No f low limiting stenosis. Vertebral arteries: Codominant. No origi n or extracranial stenosis. IMPRESSION: Left thalamic acute ischemic infarct. Ad ditional 3 mm right parietal lobe subcortical acute infarct. Mild to moderate chronic microvascular i schemic changes No flow limiting stenosis in the major b ranch vessels of the cervical or cranial circulation. Signed: Silvano Kirby MD Report Verified Date/Time:11/29/2019 23:14:20 Procedure Note Interface, External Ris In - 11/29/2019 11:16 PM CDT FINAL REPORT MR, BRAIN, WITHOUT CONTRAST, MR, MRA, NE CK, WITHOUT IV CONTRAST, MR, MRA, BRAIN, WITHOUT CONTRAST INDICATION: Ischemic Stroke Evaluation thalamic stroke on CT TECHNIQUE: Multiplanar, multisequence MR images of the brain. 3-D time of flight MRA of the cranial and ce rvical circulation. 2-D time of flight MRA of the neck. 3D MIP angiog raphic post-processing was performed. Stenosis evaluation utilized NASCET criteria. COMPARISON: Noncontrast brain CT of the same date FINDINGS: MRI BRAIN: Well-demarcated 2 cm DWI hyperintensity within the medial left thalamus associated with T2 FLAIR hyperi ntensity. Additional 3 mm infarct within the right parietal subcor tical white matter. No midline shift or hydrocephalus. No acute intracranial hemorrhage. Xbnj-be-kliesodb nonspecific supratentor ial and infratentorial white matter T2 FLAIR hyperintensities. Orbits , globes, paranasal sinuses, mastoid air cells and calvarium are unre markable. MRA BRAIN: Internal carotid arteries: Patent. Middle cerebral arteries: Patent to dist al branches. Anterior cerebral arteries: Intact. Basilar system: Patent vertebrobasilar s ystem. Posterior cerebral arteries:Patent beyon d the quadrigeminal segments. Additional findings: None. MRA NECK: Common carotid arteries: Unremarkable. Bifurcations: No flow-limiting stenosis. Cervical internal carotid arteries: No f low limiting stenosis. Vertebral arteries: Codominant. No origi n or extracranial stenosis. IMPRESSION: Left thalamic acute ischemic infarct. Ad ditional 3 mm right parietal lobe subcortical acute infarct. Mild to moderate chronic microvascular i schemic changes No flow limiting stenosis in the major b ranch vessels of the cervical or cranial circulation. Signed: Silvano Kirby MD Report Verified Date/Time: 11/29/2019 2 3:14:20 Performing Organization Address City/State/Zipcode Phone Number [facility] ([place], [place]) MRA head without IV contrast (11/29/2019 11:06 PM CDT) Specimen Narrative Performed At FINAL REPORT [facility] ([place], [place]) MR, BRAIN, WITHOUT CONTRAST, MR, MRA, NE CK, WITHOUT IV CONTRAST, MR, MRA, BRAIN, WITHOUT CONTRAST INDICATION: Ischemic Stroke Evaluation thalamic stroke on CT TECHNIQUE: Multiplanar, multisequence MR images of the brain.3-D time of flight MRA of the cranial and ce rvical circulation. 2-D time of flight MRA of the neck. 3D MIP angiog raphic post-processing was performed. Stenosis evaluation utilized NASCET criteria. COMPARISON: Noncontrast brain CT of the same date FINDINGS: MRI BRAIN: Well-demarcated 2 cm DWI hyperintensity within the medial left thalamus associated with T2 FLAIR hyperi ntensity. Additional 3 mm infarct within the right parietal subcor tical white matter. No midline shift or hydrocephalus. No acute intracranial hemorrhage. Bqry-eg-brtunlri nonspecific supratentor ial and infratentorial white matter T2 FLAIR hyperintensities. Orbits , globes, paranasal sinuses, mastoid air cells and calvarium are unre markable. MRA BRAIN: Internal carotid arteries: Patent. Middle cerebral arteries: Patent to dist al branches. Anterior cerebral arteries: Intact. Basilar system: Patent vertebrobasilar s ystem. Posterior cerebral arteries:Patent beyon d the quadrigeminal segments. Additional findings: None. MRA NECK: Common carotid arteries: Unremarkable. Bifurcations: No flow-limiting stenosis. Cervical internal carotid arteries: No f low limiting stenosis. Vertebral arteries: Codominant. No origi n or extracranial stenosis. IMPRESSION: Left thalamic acute ischemic infarct. Ad ditional 3 mm right parietal lobe subcortical acute infarct. Mild to moderate chronic microvascular i schemic changes No flow limiting stenosis in the major b ranch vessels of the cervical or cranial circulation. Signed: Silvano Kirby MD Report Verified Date/Time:11/29/2019 23:14:20 Procedure Note Interface, External Ris In - 11/29/2019 11:16 PM CDT FINAL REPORT MR, BRAIN, WITHOUT CONTRAST, MR, MRA, NE CK, WITHOUT IV CONTRAST, MR, MRA, BRAIN, WITHOUT CONTRAST INDICATION: Ischemic Stroke Evaluation thalamic stroke on CT TECHNIQUE: Multiplanar, multisequence MR images of the brain. 3-D time of flight MRA of the cranial and ce rvical circulation. 2-D time of flight MRA of the neck. 3D MIP angiog raphic post-processing was performed. Stenosis evaluation utilized NASCET criteria. COMPARISON: Noncontrast brain CT of the same date FINDINGS: MRI BRAIN: Well-demarcated 2 cm DWI hyperintensity within the medial left thalamus associated with T2 FLAIR hyperi ntensity. Additional 3 mm infarct within the right parietal subcor tical white matter. No midline shift or hydrocephalus. No acute intracranial hemorrhage. Pcce-lq-ugjwolmj nonspecific supratentor ial and infratentorial white matter T2 FLAIR hyperintensities. Orbits , globes, paranasal sinuses, mastoid air cells and calvarium are unre markable. MRA BRAIN: Internal carotid arteries: Patent. Middle cerebral arteries: Patent to dist al branches. Anterior cerebral arteries: Intact. Basilar system: Patent vertebrobasilar s ystem. Posterior cerebral arteries:Patent beyon d the quadrigeminal segments. Additional findings: None. MRA NECK: Common carotid arteries: Unremarkable. Bifurcations: No flow-limiting stenosis. Cervical internal carotid arteries: No f low limiting stenosis. Vertebral arteries: Codominant. No origi n or extracranial stenosis. IMPRESSION: Left thalamic acute ischemic infarct. Ad ditional 3 mm right parietal lobe subcortical acute infarct. Mild to moderate chronic microvascular i schemic changes No flow limiting stenosis in the major b ranch vessels of the cervical or cranial circulation. Signed: Silvano Kirby MD Report Verified Date/Time: 11/29/2019 2 3:14:20 Performing Organization Address City/State/Zipcode Phone Number [facility] ([place], [place]) Platelet count (11/29/2019 9:09 PM CDT) Platelets 256 150 - 450 K/CU MM [facility] Specimen Blood Narrative Performed At Job Change Crew [facility] Performing Organization Address City/State/Zipcode Phone Number [facility] MEDICAL [address] [place] [address] CENTER Hemoglobin A1c (11/29/2019 9:09 PM CDT) Hemoglobin A1C 5.7 4.3 - 6.1 % [facility] Specimen Blood Performing Organization Address City/[facility]/Zipcode Phone Number [address] [address] [place] Lipid panel (11/29/2019 9:09 PM CDT) Triglycerides 143 mg/dL [facility] Cholesterol 158 mg/dL [facility] HDL 45 mg/dL [facility] LDL Calculated 84 mg/dL [facility] Specimen Blood Narrative Performed At Triglyceride Reference Range: [facility] Low Risk <150 [id number] High Risk 200-499 Very High Risk>=500 Cholesterol Reference Range: Low Risk <200 [id number] High Risk>240 HDL Cholesterol Reference Range: Low Risk >=60 High Risk <40 LDL Cholesterol Reference Range: Optimal<100 Near Kmlveyg840-330 Xzewowjzmz084-119 Mjfv103-043 Very High >=190 Job Change Crew Member ID - DB Performing Organization Address City/[facility] Phone Number [address] [address] CENTER Vitamin B12 and Folate (11/29/2019 9:08 PM CDT) Vitamin B12 335 213 - 816 pg/mL [facility] Folate 11.7 >=7.0 ng/mL [facility] Specimen Blood Narrative Performed At Job Change Crew Member ID - DB [facility] Performing Organization Address City/[facility]/Zipcode Phone Number [address] [address] CENTER TSH/Free T4 If Indicated (11/29/2019 9:08 PM CDT) TSH 0.87 0.35 - 4.94 uIU/mL [facility] Specimen Blood Narrative Performed At Job Change Crew Member ID - DB [facility] Performing Organization Address City/State/Zipcode Phone Number [facility] [address] [place] [address] CENTER VASCULAR DIAGRAM -SCAN (11/27/2019 1:31 PM CDT)Only the most recent of3 results within the time period is included. Narrative Performed At This result has an attachment that is no t available. Phosphorus (11/26/2019 4:39 AM CDT)Only the most recent of13 resultswithin the time period is included. Phosphorus 4.3 2.3 - 4.7 mg/dL [facility] Specimen Blood Narrative Performed At Job Change Crew Member ID - DB [facility] Performing Organization Address [facility] Phone Number [address] [address] [place] Magnesium (11/26/2019 4:39 AM CDT)Only the most recent of14 resultswithin the time period is included. Magnesium 2.1 1.6 - 2.6 mg/dL [facility] Specimen Blood Narrative Performed At Job Change Crew Member ID - DB [facility] Performing Organization Address City/[facility] Phone Number [phone] [place] CT brain without IV contrast (11/24/2019 10:45 AM CDT) Specimen Narrative Performed At FINAL REPORT [facility] CT Head without contrast CLINICAL HISTORY: Altered mental status TECHNIQUE: Contiguous axial CT images th rough the head without contrast. This exam was performed accord ing to the departmental dose optimization program which includes auto mated exposure control, adjustment of the mA and/or kV according to the patient size, and/or use of an iterative reconstruction techn ique. COMPARISON: None FINDINGS: The study is motion degraded despite rep eat imaging. As such, acute infarction cannot be excluded. 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 There is no gross evidence for intracran ial hemorrhage. There is generalized parenchymal volume loss with out hydrocephalus or midline shift. There are atherosclerotic calcifi cations of the intracranial circulation. The skull appears intact. IMPRESSION: Motion degraded exam as discussed above. Repeat imaging is recommended when the patient is better a ble to hold still. Signed: Sabiha Sun MD Report Verified Date/Time:11/24/2019 11:04:11 Reading Location: [address] Procedure Note Interface, External Ris In - 11/24/2019 11:06 AM CDT FINAL REPORT CT Head without contrast CLINICAL HISTORY: Altered mental status TECHNIQUE: Contiguous axial CT images th rough the head without contrast. This exam was performed accord ing to the departmental dose optimization program which includes auto mated exposure control, adjustment of the mA and/or kV according to the patient size, and/or use of an iterative reconstruction techn ique. COMPARISON: None FINDINGS: The study is motion degraded despite rep eat imaging. As such, acute infarction cannot be excluded. 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 There is no gross evidence for intracran ial hemorrhage. There is generalized parenchymal volume loss with out hydrocephalus or midline shift. There are atherosclerotic calcifi cations of the intracranial circulation. The skull appears intact. IMPRESSION: Motion degraded exam as discussed above. Repeat imaging is recommended when the patient is better a ble to hold still. Signed: Sabiha Sun MD Report Verified Date/Time: 11/24/2019 1 1:04:11 Reading Location: [address] Room Performing Organization Address City/State/Zipcode Phone Number [place] ECHOCARDIOGRAM REPORT - SCAN (11/23/2019 9:11 PM CDT) Narrative Performed At This result has an attachment that is no t available. 2D Echo W/Doppler(CW/PW/Color) (11/23/2019 8:55 AM CDT) Ejection Fraction [facility] ECHO HEAR TLAB MKCKESSON CPA Specimen Narrative Performed At Transthoracic Echocardiography Report (T TE) [facility] ECHO HEARTLAB MKCKESSON CPA Demographics Patient NameHYLTON, QUIANA Date of Study11/23/2019 KARINA Gender Female Visit [id number] Race Long molina [id number] Number Date of 1955 ReferringJoseph Syeda Amato MD Age 64 year(s) SonAndrea Quintero, [facility] Structural Steel Erection Supervisor Remy Beth MD Physician Procedure Type of Study TTE procedure:2DECHO W DOPPLER(CW/PW/COLOR) (STAT) Indications:S/P TAVR. Clinical History HGB 10.5 HCT 31.9 % Asthma, Colon CA, DM, HTN, COPD, , Her pes s/p TAVR (11/22/2019, 29 mm Evolut PRO) Height: 65 inches Weight: 53.52 kg (118 lbs) BSA: 1.58 m^2 BMI: 19.64 kg/m^2 HR: 67 bpm BP: 116/47 mmHg Summary 1. The left ventricle is chamber size (by vol index) is mildly enlarged. Normal LV wall thickness. All of the LV segments have low normal contractility . Estimated LVEF by qualitative assessment is lower limits of normal (50-55%). Grade 1 diastolic dysfunction (impaired relaxation with mildly elevated LA pressure). 2. Normal right ventricle structure and function. Normal right atrium. Unable to estimate peak systolic PA pressure; inadequate TR velocity signal. 3. A percutaneous (TAVR) biologic AoV prosthesis is visualized and appears well-seated with normal function by Doppler. AoV dimensionless obstructive index (DOI)) is 0.53. Prosthetic AoV regurgitaton is mild. Previous Study In comparison with the prior exam 11/01/2019 the following changes are noted: S/P TAVR . Signature Findings Technical Quality: Technically adequate exam. Left Ventricle The left ventricle is chamber size (by vol index) is mildly enlarged (female - LVED 62-70ml/m 2). No rmal LV wall thickness. All of the LV se gments daugherty ve low normal contractility . Estimated LVEF by qu alitative assessment is lower limits of normal (5 0-55%) . Grade 1 diastolic dysfunction ( impaired re laxation with mildly elevated LA pressur e). Left AtriumLA size is normal . Right VentricleNormal right ventricle structure and function. Right Atrium Normal right atrium. Aortic Valve A percutaneous (TAVR) biologic AoV prosthesis is vi sualized . Th e prosthetic AoV appears well-seated wit h normal fu nction by Doppler. Pr osthetic AoV regurgitaton is mild . Pr osthetic AR locations(s) are paravalvula r at ap proximately 5 o''clock. . Ao V dimensionless obstructive index (DOI)) is 0.53 .P eak Grad; 17.7 mmHg,Mean Grad; 8.9 mmHg. Mitral Valve Mild MV leaflet thickening. Trace mitral re gurgitation. Tricuspid ValveA trace of tricuspid regurgitation. Un able to estimate peak systolic PA pressu re; in adequate TR velocity signal. Pulmonic Valve Normal PV structure and function by limited views an d Doppler. AortaAortic root size (SInus of Valsalva diameter) i s no rmal . PericardiumNo evidence of pericardial effusion. IVC/SVC/PA/PV/PleuralThe estimated RA pressure by IVC dynamics 5-10mmHg . Chambers/Structures Left Atrium LA Dimension: 3.96 cmLA Area: 19.35 cm^2 LA Volume: 52.32 ml LA Vol. Index: 33 ml/m^2 Left Ventricle LVIDd: 4.56 cm LV Septum Diastolic: 1.08 cm LV PW Diastolic: 1.04 cm LVEDV Gutierrez's:107.07 ml LVESV Gutierrez's:58.21 ml LVEF Gutierrez's: 50.6 %LVEDV I: 68 ml/m^2 LVESVI: 37 ml/m^2 LVOT Diameter: 1.78 cm Aorta Ao Root S of Ulisses.: 3.15 cm Doppler/Quantitative Measurements Mitral Valve MV Peak E-Wave: 0.98 m/sMV Peak A-Wave: 1.03 m/s E/A Ratio: 0. 95 Peak Gradient: 3.85 mmHg Deceleration Time: 283.4 msec MV Michael. Peak: Tissue Doppler E' Septal Velocity: 0.05 m/sA' Septal Velocity: 0.08 m/s E/E': 18.13 Aortic Valve Peak Velocity: 2.1 m/s Mean Velocity: 1.37 m/s Peak Gradient: 17.7 mmHg Mean Gradient: 8.92 mmHg AV Area (continuity): 1.31 cm^2 AV VTI: 45.48 cm AV DVI: 0.53 LVOT Peak Velocity: 1.06 m/s Peak Gradient: 4.5 mmHg Mean Velocity: 0.63 m/s Mean Gradient: 2.01 mmHg LVOT Diameter: 1.78 cmLVOT VTI: 23.88 cm LVOT Area: 2.49 cm^2LVOT SV:59.39 ml LVOT CO: 3.98 l/min LVOT CI: 2.52 l/min/m^2 Procedure Note Interface, External Ris In - 11/23/2019 3:20 PM CDT Transthoracic Echocardiography Report (TTE) Demographics Patient Name QUIANA VALLADARES Date of Study 11/23/2019 KARINA Gender Female Visit Number [id number] Race Room Num [facility] [id number] Number Date of 1955 Referrin joo Morillo Physicia n MD Shantelle Age 64 year(s) Sonograp her Karla Quintero, [facility] Structural Steel Erection Supervisor Remy Beth MD Physicia n Procedure Type of Study TTE procedure:2DECHO W DOPPLE R(CW/PW/COLOR) (STAT) Indications:S/P TAVR. Clinical History HGB 10.5 HCT 31.9 % Asthma, Colon CA, DM, HTN, COPD, , Her pes s/p TAVR (11/22/2019, 29 mm Evolut PRO) Height: 65 inches Weight: 53.52 kg (118 lbs) BSA: 1.58 m^2 BMI: 19.64 kg/m^2 HR: 67 bpm BP: 116/47 mmHg Summary 1. The left ventricle is chamber size ( by vol index) is mildly enlarged. Normal LV wall thickness. All of the LV segments have low normal contractility . Estimated LVEF by quali tative assessment is lower limits of normal (50-55%). Grade 1 diastolic d ysfunction (impaired relaxation with mildly elevated LA pressure). 2. Normal right ventricle structure and function. Normal right atrium. Unable to estimate peak systolic PA pre ssure; inadequate TR velocity signal. 3. A percutaneous (TAVR) biologic AoV p rosthesis is visualized and appears well-seated with normal function by Dop pler. AoV dimensionless obstructive index (DOI)) is 0.53. Prosthetic AoV re gurgitaton is mild. Previous Study In comparison with the prior exam 020 the following changes are noted: S/P TAVR . Signature Findings Technical Quality: Technically adequate exam. Left Ventricle The left ventric le is chamber size (by vol index) is mildly enlarg ed (female - LVED 62-70ml/m2). Normal LV wall t hickness. All of the LV segments have low normal contractility . Estimated LVEF by qualitative asse ssment is lower limits of normal (50-55%) . Grade 1 diastolic dysfunction (impaired relaxation with mildly elevated LA pressure). Left Atrium LA size is sherie l . Right Ventricle Normal right [place]ia [place] tricle structure and function. Right Atrium Normal right atr ium. Aortic Valve A percutaneous ( TAVR) biologic AoV prosthesis is visualized . The prosthetic A oV appears well-seated with normal function by Dopp ler. Prosthetic AoV r egurgitaton is mild . Prosthetic AR lo cations(s) are paravalvular at approximately 5 o''clock. . AoV dimensionles s obstructive index (DOI)) is 0.53 .Peak Grad; 17.7 mmHg,Mean Grad; 8.9 mmHg. Mitral Valve Mild MV leaflet thickening. Trace mitral regurgitation. Tricuspid Valve A trace of tricu spid regurgitation. Unable to estima te peak systolic PA pressure; inadequate TR ve locity signal. Pulmonic Valve Normal PV struct ure and function by limited views and Doppler. Aorta Aortic root size (SInus of Valsalva diameter) is normal . Pericardium No evidence of p ericardial effusion. IVC/SVC/PA/PV/Pleural The estimated RA pressure by IVC dynamics 5-10mmHg . Chambers/Structures Left Atrium LA Dimension: 3.96 cm LA Area: 19.35 cm^2 LA Volume: 52.32 ml LA Vol. Index: 33 ml/m^2 Left Ventricle LVIDd: 4.56 cm LV Septum Diastolic: 1.08 cm LV PW Diastolic: 1.04 cm LVEDV Gutierrez's:107.07 ml LVESV Gutierrez's:58.21 ml LVEF Gutierrez's: 50.6 % LVEDVI: 68 ml/m^2 LVESVI: 37 ml/m^2 LVOT Diameter: 1.78 cm Aorta Ao Root S of Ulisses.: 3.15 cm Doppler/Quantitative Measurements Mitral Valve MV Peak E-Wave: 0.98 m/s M V Peak A-Wave: 1.03 m/s E /A Ratio: 0.95 P eak Gradient: 3.85 mmHg D eceleration Time: 283.4 msec MV Michael. Peak: Tissue Doppler E' Septal Velocity: 0.05 m/s A ' Septal Velocity: 0.08 m/s E /E': 18.13 Aortic Valve Peak Velocity: 2.1 m/s Mean Velocity: 1.37 m/s Peak Gradient: 17.7 mmHg Mean Gradient: 8.92 mmHg AV Area (continuity): 1.31 cm^2 AV VTI: 45.48 cm AV DVI: 0.53 LVOT Peak Velocity: 1.06 m/s Pea k Gradient: 4.5 mmHg Mean Velocity: 0.63 m/s Lin n Gradient: 2.01 mmHg LVOT Diameter: 1.78 cm LVO T VTI: 23.88 cm LVOT Area: 2.49 cm^2 LVO T SV:59.39 ml LVOT CO: 3.98 l/min LVO T CI: 2.52 l/min/m^2 Performing Organization Address City/State/Zipcode Phone Number [facility] HEARTLAB MKTIMOTHY CPACS CBC with platelet count + automated diff (11/23/2019 3:23 AM CDT)Only the most recent of8 resultswithin the time period is included. WBC 6.4 3.5 - 10.5 K/L [facility] RBC 3.11 (L) 3.93 - 5.22 M/L [facility] Hemoglobin 10.5 (L) 11.2 - 15.7 GM/DL [facility] Hematocrit 31.9 (L) 34.1 - 44.9 % [facility] MCV 102.6 (H) 79.4 - 94.[address] [facility] MCH 33.8 (H) 25.6 - 32.[address] [facility] MCHC 32.9 32.2 - 35.5 GM/DL [facility] RDW 14.6 (H) 11.7 - 14.4 % [facility] Platelets 151 150 - 450 K/CU MM [facility] MPV 8.9 (L) 9.4 - 12.[address] [facility] nRBC 0 0 - 0 /[address] [facility] % Neutros 86 % [facility] % Lymphs 6 % [facility] % Monos 7 % [facility] % Eos 1 % [facility] % Baso 0 % [facility] # Neutros 5.52 1.56 - 6.13 K/L [facility] # Lymphs 0.40 (L) 1.18 - 3.74 K/L [facility] # Monos 0.42 (H) 0.24 - 0.36 K/L [facility] # Eos 0.05 0.04 - 0.36 K/L [facility] # Baso 0.01 0.01 - 0.08 K/L [facility] Immature 1 0 - 1 % [facility] Granulocytes-Relative MEDICAL CE NTER Specimen Blood Performing Organization Address [facility] Phone Number [address] [address] [place] Potassium-Stat Lab (11/22/2019 10:45 AM CDT) Potassium 3.7 3.6 - 5.5 meq/L [facility] Specimen Blood, Arterial Performing Organization Address [facility] Phone Number [address] [address] [place] Sodium Na-Stat Lab (11/22/2019 10:45 AM CDT) Sodium 137 135 - 148 meq/L [facility] Specimen Blood, Arterial Performing Organization Address [facility] Phone Number [address] [address] [place] Glucose-Stat Lab (11/22/2019 10:45 AM CDT) Glucose 121 (H) 70 - 110 mg/dL [facility] Specimen Blood, Arterial Performing Organization Address [facility] Phone Number [address] [address] [place] HGB/HCT (H&H)-Stat Lab (11/22/2019 10:45 AM CDT) Hemoglobin 11.0 (L) 12.0 - 15.0 g/dL [facility] Hematocrit 32.0 (L) 36.0 - 45.0 % [facility] Specimen Blood, Arterial Performing Organization Address City/[facility] Phone Number [address] [address] [place] Calcium, Ionized (11/22/2019 10:45 AM CDT) Calcium, Ion 1.14 1.12 - 1.27 mmol/L [facility] pH, Blood 7.41 [facility] Specimen Blood Performing Organization Address [facility] Phone Number [address] [address] [place] Blood gas, arterial (11/22/2019 10:45 AM CDT) pH, Arterial 7.41 7.35 - 7.45 [facility] pCO2, Arterial 43 35 - 45 mmHg [facility] pO2, Arterial 97 (H) 80 - 90 mmHg [facility] O2 Sat, Arterial 97.5 (H) 96.0 - 97.0 % [facility] HCO3, Arterial 27 21 - 29 mmol/L [facility] Base Excess, Arterial 1.9 -2.0 - 3.0 mmol/L [facility] Patient Temperature 36.8 C [facility] FIO2 36.0 % [facility] Specimen Blood, Arterial Performing Organization Address City/[facility] Phone Number [address] [address] [place] Prepare RBC (11/21/2019 5:44 PM CDT)Only the most recent of2 resultswithin the time period is included. CROSSMATCH COMPATIBLE SAFETRACE TX Unit ABO O Pos SAFETRACE TX UNIT NUMBER [id number] SAFETRACE TX Status READY SAFETRACE TX Blood Bank Product RED BLOOD CELLS SAFETRACE TX PRODUCT CODE [id number] SAFETRACE TX CROSSMATCH COMPATIBLE SAFETRACE TX Unit ABO O Pos SAFETRACE TX UNIT NUMBER [id number] SAFETRACE TX Status READY SAFETRACE TX Blood Bank Product RED BLOOD CELLS SAFETRACE TX PRODUCT CODE [id number] SAFETRACE TX Performing Organization Address City/[facility]/Zipcode Phone Number SAFETRACE TX CARDIAC CATH REPORT - SCAN (11/17/2019 5:20 PM CDT) Narrative Performed At This result has an attachment that is no t available. B-type Natriuretic Factor (BNP) (11/16/2019 10:32 AM CDT)Only the most recent of 2 resultswithin the time period is included. BNP 157 (H) 0 - 100 pg/mL [facility] Specimen Blood Narrative Performed At Job Change Crew Member ID - AAHAMID [facility] Performing Organization Address City/[facility] Phone Number [address] [address] CENTER Comprehensive metabolic panel (11/16/2019 10:32 AM CDT)Only the most recent of4 resultswithin the time period is included. Protein, Total 6.5 6.0 - 8.3 gm/dL [facility] Albumin 3.7 3.5 - 5.0 g/dL [facility] Alkaline Phosphatase 113 40 - 150 U/L [facility] Total Bilirubin 0.4 0.2 - 1.2 mg/dL [facility] Sodium 137 136 - 145 meq/L [facility] Potassium 4.0 3.5 - 5.1 meq/L [facility] Chloride 103 98 - 107 meq/L [facility] CO2 27 22 - 29 meq/L [facility] BUN 7 7 - 21 mg/dL [facility] Creatinine 0.66 0.57 - 1.25 mg/dL [facility] Glucose 118 (H) 70 - 105 mg/dL [facility] Calcium 8.7 8.4 - 10.2 mg/dL [facility] AST 28 5 - 34 U/L [facility] ER ALT 26 6 - 55 U/L [facility] ER EGFR 91Comment: ESTIMATED GFR mL/min/1.[address] [facility] IS NOT ACCURATE [facility] CREATININE CLEARANCE IN PREDICTING GLOMERULAR FILTRATION RATE. ESTIMATED GFR IS NOT APPLICABLE FOR DIALYSIS PATIENTS. Specimen Blood Narrative Performed At Job Change Crew Member ID - AAHAMID [facility] Performing Organization Address City/State/Zipcode Phone Number [place] [phone] [place] [address] CENTER EKG-SCANNED (11/06/2019 11:52 AM CDT) Narrative Performed At This result has an attachment that is no t available. CARDIAC CATH REPORT - SCAN (11/06/2019 11:52 AM CDT) Narrative Performed At This result has an attachment that is no t available. CARDIAC CATH REPORT - SCAN (11/06/2019 11:52 AM CDT) Narrative Performed At This result has an attachment that is no t available. NM bone scan whole body (11/03/2019 3:57 PM FOIL SPOOLER) Specimen Narrative Performed At FINAL REPORT [place] PROCEDURE: BONE SCAN, WHOLE BODY CPT CODE:[id number] INDICATION:Lung cancer PROTOCOL:21.5 mCi of Tc-99m MDP was injected intravenously. Whole body and selected spot images were obtained approximately 3 hours later. FINDINGS: Tracer activity is diffusely moderately increased within the calvarium. There is thoracolu mbar kyphoscoliosis. Distribution within the spine is irregul ar with greater increase in the mid and lower lumbar region. Focal i ncrease is also noted in the right wrist and to a lesser degree's marium ulders, sternoclavicular joints, and feet. IMPRESSION: 1. No specific evidence of bony neoplast ic disease. 2. Kyphoscoliosis and degenerative sun es within the spine. Degenerative disease is noted as well in peripheral joints. 3. Benign hyperostosis of the skull. Images for comparison/correlation were r ecent chest CT. Signed: Blane Booen MD Report Verified Date/Time:11/03/2019 16:33:30 Reading Location: [address] [facility] Reading Room Procedure Note Interface, External Ris In - 11/03/2019 4:35 PM FOIL SPOOLER FINAL REPORT PROCEDURE: BONE SCAN, WHOLE BODY CPT CODE: [id number] INDICATION: Lung cancer PROTOCOL: 21.5 mCi of Tc-99m MDP wa s injected intravenously. Whole body and selected spot images were obtained approximately 3 hours later. FINDINGS: Tracer activity is dif fusely moderately increased within the calvarium. There is thoracolu mbar kyphoscoliosis. Distribution within the spine is irregul ar with greater increase in the mid and lower lumbar region. Focal i ncrease is also noted in the right wrist and to a lesser degree's marium ulders, sternoclavicular joints, and feet. IMPRESSION: 1. No specific evidence of bony neoplast ic disease. 2. Kyphoscoliosis and degenerative sun es within the spine. Degenerative disease is noted as well in peripheral joints. 3. Benign hyperostosis of the skull. Images for comparison/correlation were r ecent chest CT. Signed: Blane Boone MD Report Verified Date/Time: 11/03/2019 1 6:33:30 Reading Location: [address] [facility] Reading Room Performing Organization Address City/State/Zipcode Phone Number [place] CTA chest (11/02/2019 7:17 PM FOIL SPOOLER) Specimen Narrative Performed At Addendum Begins [place] REPORT STATUS:A I have reviewed the study for nonvascula r components. I agree with the nonvascular findings as described. A dditional observations are described below: There is left apical lung scarring. This could be a result of old granulomatous disease. A large right upp er lobe mass with spiculated/lobulated border, internal ca lcifications and possible invasion of the anterior chest wall is n oted again as described. It measures approximately 3.5 cm AP by 3.8 cm transverse by 5 cm craniocaudad and is worrisome for primar y lung cancer. There is central necrosis. There is no significan t mediastinal or hilar lymphadenopathy. There is no evidence of lesions in the adrenal glands or liver. There is presence of bilateral diffuse c entrilobular type emphysema. The gallbladder is thick walled. At one point it measures 4 mm. There is diffuse wall enhancement. There is pr esence of a calcified large calculus in the gallbladder. This is wor risome. Further evaluation of the gallbladder is recommended with an u ltrasound examination. There is dilatation of the common bile duct. J ust above the pancreatic head measures approximately 11 mm. There is n o apparent obstructive lesion or calculus seen on this examination. Fu rther evaluation should be performed. The gallbladder and the bilia ry tree can be evaluated best via MRCP examination. There is high density cystic area in the middle pole of the right kidney. This is entirely intramural león l. It measures approximately 2 x 2 centimeters. It shows significant contrast enhancement. Precontrast attenuation is 41. Post cont rast attenuation value is 72. This is also worrisome. A urological con sultation is requested. The study is not optimal for evaluation of the bowel. The cecum and especially the ascending colon appears t hick-walled. This is abnormal. The patient has a history of c olonic malignancy. Correlation with the clinical history or further evaluation of the ascending colon is recommended. The patient appears to be status post hy sterectomy and bilateral salpingo-oophorectomy. Signed: David Miranda MD Report Verified Date/Time:11/03/2019 16:18:17 Reading Location: [place] [id number] Angio Body Reading Room Addendum Ends FINAL REPORT CT angiography of the thoracoabdominal a bill and pelvic arteries, 02 November 2019 INDICATION: This is a 64 year old female with a diagnosis of aortic stenosis, presents for preprocedure TAVR assessment. TECHNIQUE: Spiral acquisition before and during intravenous contrast administration using a Rich multidete ctor CT scanner. Images were obtained before and during the dynamic p assage of intravenous contrast material.Multi-planar 3-D v olume-rendering reconstruction was performed using an independent works tation interactively by the interpreting physician as well as the 3- D specialist for optimal visualisation of the thoracoabdominal ao rta, the pelvic arteries as well as its proximal branches. Please refer to the contrast sheet scann ed in the [employer] system for the amount and route of contrast given. This exam was performed according to our departmental dose-optimisation programme, which inclu hafsa automated exposure control, adjustment of the mA and/or kV according to patient size and/or use of iterative reconstruction t echnique. Dose modulation, iterative reconstruction, and/or weight based adjustment of the mA/kV was utilized to reduce the radiation dos e to as low as reasonably achievable. FINDINGS: VASCULAR: A central venous catheter is identified, with tip identified in the right atrial level. No pericardial effusion is identified. The central pulmonary artery is normal i n calibre. The cardiac chambers demonstrate normal atrioventricular and ventriculoarterial concordance, and syst emic and pulmonary venous return. The left ventricle is normal in size. No mitral annular calcification is identified. Left atrial size appears to be unremarkable. 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 Coronary artery origins are normal. Calc ification is identified in the proximal and mid LAD, proximal LCx. Patient has a diagnosis of aortic stenos is.The aortic valve appears to be bicuspid. Correlate with echocardi ography. The aortic Agatston score is 3000.The aortic valve area is 92 mm2. The location of aortic valvular calcification can be see n in reformatted data set sent to PACS. Regarding the aorta, the aortic root is free of calcification. The ascending thoracic aorta, is also free o f calcification. Mild calcification is seen in the transverse arch and descending thoracic aorta. In the abdominal aorta, scattered calcification is identified. No ectasia or aneurysmal dilation is see n. There is no evidence of acute aortic pat hology, specifically, there is no dissection, intramural hematoma, o r contained rupture. The arch vessel branching pattern is nor mal and the visualised arch vessels are widely patent proximally. Th e left subclavian artery, has mild calcification identified at its joana eoff and is widely patent. At image 20, it measures 6 mm in diameter. The right subclavian artery also has mild calcification identified. At image 13, it measures 5.7 mm in diameter. There are single left and right renal ar teries that are widely patent. The coeliac axis, SMA, and RE a re widely patent. The common iliac, external iliac, common femoral, and the visualised superficial femoral arteries, bilaterall y, are widely patent, with nonobstructive calcification, seen predo minantly in the common iliac level. Dimensions that may be helpful for TAVR as follows: There is no calcification seen in the ao rtic root/ascending thoracic aorta. The major and minor aortic annulus diame ter measures 26.9 and 20.9 mm, respectively. The aortic annulus per imeter measured 76 mm and the cross-sectional area measures 436 mm2. T he aortic annulus diameter at the traditional LVOT and coronal LVOT me asures 21.9 and 23.1 mm, respectively. For reference purpose, per HENSLEY S3 halley martínez, recommendation are as follows: CT area between 273 to 345 mm2 (20 mm valve); 338 to 430 mm2 (23 mm valve); 430 to 546 mm2 (26 mm ulisses ve); 540 to 683 mm2 (29 mm valve). For reference purpose, per [employer] Elliot lut R noel, recommendation are as follows: CT perime ter between 56.5-62.8 mm (23 mm valve); 62.8-72.3 mm (26 mm valve); 7 2.3-81.7 mm (29 mm valve); and 81.7-94.2. mm (34 mm valve). For reference purpose, per Anali Edge halley martínez, recommendation are as follows: 23mm valve is recommended for C T perimeter between 62.8-72.3 mm; diameter between 20-23 mm; or area b etween 314-415.5 mm2. For 25mm valve, it is recommended for CT per imeter between 72.3-78.5 mm; diameter between 23-25 mm; or area betwe en 415.5-490.9 mm2.For 27mm valve, it is recommended for CT perimete r between 78.5-84.8 mm; diameter between 25-27 mm; or area betwe en 490.9-572.6 mm2. Agatston Score is 3000. The aortic valve area is 92. The distance between the take off of the RCA and the annulus (systole): 10.1 mm The distance between the take off of the LM1 and the annulus (systole): 10.4 mm Sinus of Valsalva orthogonal no diameter , measured in systole, is approximately 29.9 x 34.4 mm. The sinotubular junction measures, 31.6 x 30.5 mm. The aortic root angulation measures 37.5 degrees. The minimal and perpendicular abdominal aortic diameter measure 11.1 and 14.4 mm, respectively. There is no evidence of thoracoabdominal aortic aneurysm or stent placement present. The minimum and the perpendicular left c ommon iliac artery measures 6.7 and 6.8 mm, respectively with mildtortuosity a nd mildcalcific atherosclerosis present. The minimum and the perpendicular left external iliac artery measures 6.1 and 6 .2 mm, respectively with minimaltortuosity and nocalcific atherosclerosis present. The minimum and the perpendicular left femor al artery measures 70 and 7.5 mm, respectively with notortuosity and nocalci fic atherosclerosis present. The minimum and the perpendicular right common iliac artery measures 6.7 and 7.0 mm, respectively with mildtortuosity a nd mildcalcific atherosclerosis present. The minimum and the perpendicular right external iliac artery measures 5.2 and 6 .1 mm, respectively with minimaltortuosity and nocalcific atherosclerosis present. The minimum and the perpendicular right femo ral artery measures 7.3 and 7.5 mm, respectively with minimaltor tuosity and nocalcific atherosclerosis present. NON-VASCULAR: The visualised thyroid gland is unremark able. The chest wall and mediastinum appear no rmal ; no significant adenopathy is identified. In fact, patient only has a formal chest CT scan performed a few days ago by the [employer] Radiologist. Refer to formal dictation for details, specifically, there is diffuse emphysematous changes, as well as a right upper lobe mass at image 61, measuring at least 3.9 x 3.6 cm in diameter with irregular margin , concern for lung malignancy. Correlate clinically. In the abdomen, the liver and spleen anni ears unremarkable. The liver edge is smooth. No abnormal enhancing st ructure is identified. The gallbladder wall is contracted and s mall gallstones are seen. No biliary ductal dilation is identified. The adrenal glands are not enlarged. The pancreas appears unremarka ble. No acute renal pathology is seen and no hydronephrosis or perirenal fluid collection is identified. Small no nobstructive renal stone is identified in the left kidney, at image 69, measure 2 to 3 mm in diameter. In addition, in the posterior aspect of the right kidney, at image 335, a hypodensity is seen, that measure 1.7 x 1.9 cm in diameter. There appears to be enhancement noted af ter contrast administration. An addendum will be dictated thereafter, for optimal recommendation. Bowel is not well assessed by CT angiogr aphy as enteric contrast is not given. No obvious by dilation is kam ntified. No free air is identified abdomen and pe lvis. Trace free fluid is identified in the dependent portion of t he pelvis. No significant retroperitoneal adenopath y is identified. In the bony windows, no acute bony patho logy is identified. However, degenerative changes is noted. No obviou s blastic or lytic lesions identified. However, at L3 and L4 level, potential degenerative changes is noted. In fact, a total body bone/joint imaging has been arranged. CONCLUSIONS: 1. Patient has a diagnosis of aortic stenosis. The aortic valve appears to be bicuspid. Correlate with e chocardiography. The aortic Agatston Score is 3000and aortic ulisses ve area is 92 mm2. No mitral annular calcification is identified. There is no calcification seen in the as cending thoracic aorta. Dimensions that may be helpful for TAVR as described above. 2.Coronary artery origins are normal .Scattered calcification is seen in the LAD and LCx territories. 3.Pulmonary findings has been descri bed in formal CT scan a few days ago. Refer to formal CT report by C onsultant Radiologist for details. Pertinent findings include emphysematous changes as well as lung mass identified in the right upper lobe measu re at least 3.9 x 3.6 cm with regular margin. Lung malignancy. 4.Other findings as described above. A hypodensity is identified in the poste rior aspect of the right kidney that may demonstrate some enhance ment. 5.An addendum will be dictated regar ding the non-vascular findings by the [employer] Tech Radiologist. Signed: Ricardo Broussard MD Report Verified Date/Time:11/03/2019 07:39:57 Procedure Note Interface, External Ris In - 11/03/2019 4:20 PM [employer]IL S[employer] Addendum Begins REPORT STATUS:A I have reviewed the study for nonvascula r components. I agree with the nonvascular findings as described. A dditional observations are described below: There is left apical lung scarring. This could be a result of old granulomatous disease. A large right upp er lobe mass with spiculated/lobulated border, internal ca lcifications and possible invasion of the anterior chest wall is n oted again as described. It measures approximately 3.5 cm AP by 3.8 cm transverse by 5 cm craniocaudad and is worrisome for primar y lung cancer. There is central necrosis. There is no significan t mediastinal or hilar lymphadenopathy. There is no evidence of lesions in the adrenal glands or liver. There is presence of bilateral diffuse c entrilobular type emphysema. The gallbladder is thick walled. At one point it measures 4 mm. There is diffuse wall enhancement. There is pr esence of a calcified large calculus in the gallbladder. This is wor risome. Further evaluation of the gallbladder is recommended with an u ltrasound examination. There is dilatation of the common bile duct. J ust above the pancreatic head measures approximately 11 mm. There is n o apparent obstructive lesion or calculus seen on this examination. Fu rther evaluation should be performed. The gallbladder and the bilia ry tree can be evaluated best via MRCP examination. There is high density cystic area in the middle pole of the right kidney. This is entirely intramural león l. It measures approximately 2 x 2 centimeters. It shows significant contrast enhancement. Precontrast attenuation is 41. Post cont rast attenuation value is 72. This is also worrisome. A urological con sultation is requested. The study is not optimal for evaluation of the bowel. The cecum and especially the ascending colon appears t hick-walled. This is abnormal. The patient has a history of c olonic malignancy. Correlation with the clinical history or further evaluation of the ascending colon is recommended. The patient appears to be status post hy sterectomy and bilateral salpingo-oophorectomy. Signed: David Miranda MD Report Verified Date/Time: 11/03/2019 1 6:18:17 Reading Location: [place] [id number] Angio Body Reading Room Addendum Ends FINAL REPORT CT angiography of the thoracoabdominal a bill and pelvic arteries, 02 November 2019 INDICATION: This is a 64 year old female with a diagnosis of aortic stenosis, presents for preprocedure TAVR assessment. TECHNIQUE: Spiral acquisition before and during intravenous contrast administration using a Rich multidete ctor CT scanner. Images were obtained before and during the dynamic p assage of intravenous contrast material. Multi-planar 3-D vol ume-rendering reconstruction was performed using an independent works tation interactively by the interpreting physician as well as the 3- D specialist for optimal visualisation of the thoracoabdominal ao rta, the pelvic arteries as well as its proximal branches. Please refer to the contrast sheet scann ed in the [employer] system for the amount and route of contrast given. This exam was performed according to our departmental dose-optimisation programme, which inclu hafsa automated exposure control, adjustment of the mA and/or kV according to patient size and/or use of iterative reconstruction t echnique. Dose modulation, iterative reconstruction, and/or weight based adjustment of the mA/kV was utilized to reduce the radiation dos e to as low as reasonably achievable. FINDINGS: VASCULAR: A central venous catheter is identified, with tip identified in the right atrial level. No pericardial effusion is identified. The central pulmonary artery is normal i n calibre. The cardiac chambers demonstrate normal atrioventricular and ventriculoarterial concordance, and syst emic and pulmonary venous return. The left ventricle is normal in size. No mitral annular calcification is identified. Left atrial size appears to be unremarkable. 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 Coronary artery origins are normal. Calc ification is identified in the proximal and mid LAD, proximal LCx. Patient has a diagnosis of aortic stenos is. The aortic valve appears to be bicuspid. Correlate with echocardi ography. The aortic Agatston score is 3000. The aortic valve area is 92 mm2. The location of aortic valvular calcification can be see n in reformatted data set sent to PACS. Regarding the aorta, the aortic root is free of calcification. The ascending thoracic aorta, is also free o f calcification. Mild calcification is seen in the transverse arch and descending thoracic aorta. In the abdominal aorta, scattered calcification is identified. No ectasia or aneurysmal dilation is see n. There is no evidence of acute aortic pat hology, specifically, there is no dissection, intramural hematoma, o r contained rupture. The arch vessel branching pattern is nor mal and the visualised arch vessels are widely patent proximally. Th e left subclavian artery, has mild calcification identified at its joana eoff and is widely patent. At image 20, it measures 6 mm in diameter. The right subclavian artery also has mild calcification identified. At image 13, it measures 5.7 mm in diameter. There are single left and right renal ar teries that are widely patent. The coeliac axis, SMA, and RE a re widely patent. The common iliac, external iliac, common femoral, and the visualised superficial femoral arteries, bilaterall y, are widely patent, with nonobstructive calcification, seen predo minantly in the common iliac level. Dimensions that may be helpful for TAVR as follows: There is no calcification seen in the ao rtic root/ascending thoracic aorta. The major and minor aortic annulus diame ter measures 26.9 and 20.9 mm, respectively. The aortic annulus per imeter measured 76 mm and the cross-sectional area measures 436 mm2. T he aortic annulus diameter at the traditional LVOT and coronal LVOT me asures 21.9 and 23.1 mm, respectively. For reference purpose, per HENSLEY S3 halley martínez, recommendation are as follows: CT area between 273 to 345 mm2 (20 mm valve); 338 to 430 mm2 (23 mm valve); 430 to 546 mm2 (26 mm ulisses ve); 540 to 683 mm2 (29 mm valve). For reference purpose, per [employer] Elliot coleman R noel, recommendation are as follows: CT perime ter between 56.5-62.8 mm (23 mm valve); 62.8-72.3 mm (26 mm valve); 7 2.3-81.7 mm (29 mm valve); and 81.7-94.2. mm (34 mm valve). For reference purpose, per Anali Edge halley martínez, recommendation are as follows: 23mm valve is recommended for C T perimeter between 62.8-72.3 mm; diameter between 20-23 mm; or area b etween 314-415.5 mm2. For 25mm valve, it is recommended for CT per imeter between 72.3-78.5 mm; diameter between 23-25 mm; or area betwe en 415.5-490.9 mm2. For 27mm valve, it is recommended for CT perimete r between 78.5-84.8 mm; diameter between 25-27 mm; or area betwe en 490.9-572.6 mm2. Agatston Score is 3000. The aortic valve area is 92. The distance between the take off of the RCA and the annulus (systole): 10.1 mm The distance between the take off of the LM1 and the annulus (systole): 10.4 mm Sinus of Valsalva orthogonal no diameter , measured in systole, is approximately 29.9 x 34.4 mm. The sinotubular junction measures, 31.6 x 30.5 mm. The aortic root angulation measures 37.5 degrees. The minimal and perpendicular abdominal aortic diameter measure 11.1 and 14.4 mm, respectively. There is no evidence of thoracoabdominal aortic aneurysm or stent placement present. The minimum and the perpendicular left c ommon iliac artery measures 6.7 and 6.8 mm, respectively with mild tortuosity and mild calcific atherosclerosis present. The minimum and the perpendicular left external iliac artery measures 6.1 and 6 .2 mm, respectively with minimal tortuosity and no calcific ath erosclerosis present. The minimum and the perpendicular left femor al artery measures 70 and 7.5 mm, respectively with no tortuosity and no calcific atherosclerosis present. The minimum and the perpendicular right common iliac artery measures 6.7 and 7.0 mm, respectively with mild tortuosity and mild calcific atherosclerosis present. The minimum and the perpendicular right external iliac artery measures 5.2 and 6 .1 mm, respectively with minimal tortuosity and no calcific ath erosclerosis present. The minimum and the perpendicular right femo ral artery measures 7.3 and 7.5 mm, respectively with minimal tortu osity and no calcific atherosclerosis present. NON-VASCULAR: The visualised thyroid gland is unremark able. The chest wall and mediastinum appear no rmal ; no significant adenopathy is identified. In fact, patient only has a formal chest CT scan performed a few days ago by the [employer] Radiologist. Refer to formal dictation for details, specifically, there is diffuse emphysematous changes, as well as a right upper lobe mass at image 61, measuring at least 3.9 x 3.6 cm in diameter with irregular margin , concern for lung malignancy. Correlate clinically. In the abdomen, the liver and spleen anni ears unremarkable. The liver edge is smooth. No abnormal enhancing st ructure is identified. The gallbladder wall is contracted and s mall gallstones are seen. No biliary ductal dilation is identified. The adrenal glands are not enlarged. The pancreas appears unremarka ble. No acute renal pathology is seen and no hydronephrosis or perirenal fluid collection is identified. Small no nobstructive renal stone is identified in the left kidney, at image 69, measure 2 to 3 mm in diameter. In addition, in the posterior aspect of the right kidney, at image 335, a hypodensity is seen, that measure 1.7 x 1.9 cm in diameter. There appears to be enhancement noted af ter contrast administration. An addendum will be dictated thereafter, for optimal recommendation. Bowel is not well assessed by CT angiogr aphy as enteric contrast is not given. No obvious by dilation is kam ntified. No free air is identified abdomen and pe lvis. Trace free fluid is identified in the dependent portion of t he pelvis. No significant retroperitoneal adenopath y is identified. In the bony windows, no acute bony patho logy is identified. However, degenerative changes is noted. No obviou s blastic or lytic lesions identified. However, at L3 and L4 level, potential degenerative changes is noted. In fact, a total body bone/joint imaging has been arranged. CONCLUSIONS: 1. Patient has a diagnosis of aortic s tenosis. The aortic valve appears to be bicuspid. Correlate with e chocardiography. The aortic Agatston Score is 3000 and aortic valve area is 92 mm2. No mitral annular calcification is identified. There is no calcification seen in the as cending thoracic aorta. Dimensions that may be helpful for TAVR as described above. 2. Coronary artery origins are normal. Scattered calcification is seen in the LAD and LCx territories. 3. Pulmonary findings has been describe d in formal CT scan a few days ago. Refer to formal CT report by C onsultant Radiologist for details. Pertinent findings include emphysematous changes as well as lung mass identified in the right upper lobe measu re at least 3.9 x 3.6 cm with regular margin. Lung malignancy. 4. Other findings as described above. A hypodensity is identified in the poste rior aspect of the right kidney that may demonstrate some enhance ment. 5. An addendum will be dictated regardi ng the non-vascular findings by the [employer] Tech Radiologist. 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 I agree with the nonvascular findings as described. A dditional observations are described below: There is left apical lung scarring. This could be a result of old granulomatous disease. A large right upp er lobe mass with spiculated/lobulated border, internal ca lcifications and possible invasion of the anterior chest wall is n oted again as described. It measures approximately 3.5 cm AP by 3.8 cm transverse by 5 cm craniocaudad and is worrisome for primar y lung cancer. There is central necrosis. There is no significan t mediastinal or hilar lymphadenopathy. There is no evidence of lesions in the adrenal glands or liver. There is presence of bilateral diffuse c entrilobular type emphysema. The gallbladder is thick walled. At one point it measures 4 mm. There is diffuse wall enhancement. There is pr esence of a calcified large calculus in the gallbladder. This is wor risome. Further evaluation of the gallbladder is recommended with an u ltrasound examination. There is dilatation of the common bile duct. J ust above the pancreatic head measures approximately 11 mm. There is n o apparent obstructive lesion or calculus seen on this examination. Fu rther evaluation should be performed. The gallbladder and the bilia ry tree can be evaluated best via MRCP examination. There is high density cystic area in the middle pole of the right kidney. This is entirely intramural león l. It measures approximately 2 x 2 centimeters. It shows significant contrast enhancement. Precontrast attenuation is 41. Post cont rast attenuation value is 72. This is also worrisome. A urological con sultation is requested. The study is not optimal for evaluation of the bowel. The cecum and especially the ascending colon appears t hick-walled. This is abnormal. The patient has a history of c olonic malignancy. Correlation with the clinical history or further evaluation of the ascending colon is recommended. The patient appears to be status post hy sterectomy and bilateral salpingo-oophorectomy. Signed: David Miranda MD Report Verified Date/Time:11/03/2019 16:18:17 Reading Location: [place] [id number] Angio Body Reading Room Addendum Ends FINAL REPORT CT angiography of the thoracoabdominal a bill and pelvic arteries, 02 November 2019 INDICATION: This is a 64 year old female with a diagnosis of aortic stenosis, presents for preprocedure TAVR assessment. TECHNIQUE: Spiral acquisition before and during intravenous contrast administration using a Rich multidete ctor CT scanner. Images were obtained before and during the dynamic p assage of intravenous contrast material.Multi-planar 3-D v olume-rendering reconstruction was performed using an independent works tation interactively by the interpreting physician as well as the 3- D specialist for optimal visualisation of the thoracoabdominal ao rta, the pelvic arteries as well as its proximal branches. Please refer to the contrast sheet scann ed in the [employer] system for the amount and route of contrast given. This exam was performed according to our departmental dose-optimisation programme, which inclu hafsa automated exposure control, adjustment of the mA and/or kV according to patient size and/or use of iterative reconstruction t echnique. Dose modulation, iterative reconstruction, and/or weight based adjustment of the mA/kV was utilized to reduce the radiation dos e to as low as reasonably achievable. FINDINGS: VASCULAR: A central venous catheter is identified, with tip identified in the right atrial level. No pericardial effusion is identified. The central pulmonary artery is normal i n calibre. The cardiac chambers demonstrate normal atrioventricular and ventriculoarterial concordance, and syst emic and pulmonary venous return. The left ventricle is normal in size. No mitral annular calcification is identified. Left atrial size appears to be unremarkable. 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 Coronary artery origins are normal. Calc ification is identified in the proximal and mid LAD, proximal LCx. Patient has a diagnosis of aortic stenos is.The aortic valve appears to be bicuspid. Correlate with echocardi ography. The aortic Agatston score is 3000.The aortic valve area is 92 mm2. The location of aortic valvular calcification can be see n in reformatted data set sent to PACS. Regarding the aorta, the aortic root is free of calcification. The ascending thoracic aorta, is also free o f calcification. Mild calcification is seen in the transverse arch and descending thoracic aorta. In the abdominal aorta, scattered calcification is identified. No ectasia or aneurysmal dilation is see n. There is no evidence of acute aortic pat hology, specifically, there is no dissection, intramural hematoma, o r contained rupture. The arch vessel branching pattern is nor mal and the visualised arch vessels are widely patent proximally. Th e left subclavian artery, has mild calcification identified at its joana eoff and is widely patent. At image 20, it measures 6 mm in diameter. The right subclavian artery also has mild calcification identified. At image 13, it measures 5.7 mm in diameter. There are single left and right renal ar teries that are widely patent. The coeliac axis, SMA, and RE a re widely patent. The common iliac, external iliac, common femoral, and the visualised superficial femoral arteries, bilaterall y, are widely patent, with nonobstructive calcification, seen predo minantly in the common iliac level. Dimensions that may be helpful for TAVR as follows: There is no calcification seen in the ao rtic root/ascending thoracic aorta. The major and minor aortic annulus diame ter measures 26.9 and 20.9 mm, respectively. The aortic annulus per imeter measured 76 mm and the cross-sectional area measures 436 mm2. T he aortic annulus diameter at the traditional LVOT and coronal LVOT me asures 21.9 and 23.1 mm, respectively. For reference purpose, per HENSLEY S3 halley martínez, recommendation are as follows: CT area between 273 to 345 mm2 (20 mm valve); 338 to 430 mm2 (23 mm valve); 430 to 546 mm2 (26 mm ulisses ve); 540 to 683 mm2 (29 mm valve). For reference purpose, per [employer] Elliot coleman cohen, recommendation are as follows: CT perime ter between 56.5-62.8 mm (23 mm valve); 62.8-72.3 mm (26 mm valve); 7 2.3-81.7 mm (29 mm valve); and 81.7-94.2. mm (34 mm valve). For reference purpose, per Anali Yani lombardoure, recommendation are as follows: 23mm valve is recommended for C T perimeter between 62.8-72.3 mm; diameter between 20-23 mm; or area b etween 314-415.5 mm2. For 25mm valve, it is recommended for CT per imeter between 72.3-78.5 mm; diameter between 23-25 mm; or area betwe en 415.5-490.9 mm2.For 27mm valve, it is recommended for CT perimete r between 78.5-84.8 mm; diameter between 25-27 mm; or area betwe en 490.9-572.6 mm2. Agatston Score is 3000. The aortic valve area is 92. The distance between the take off of the RCA and the annulus (systole): 10.1 mm The distance between the take off of the LM1 and the annulus (systole): 10.4 mm Sinus of Valsalva orthogonal no diameter , measured in systole, is approximately 29.9 x 34.4 mm. The sinotubular junction measures, 31.6 x 30.5 mm. The aortic root angulation measures 37.5 degrees. The minimal and perpendicular abdominal aortic diameter measure 11.1 and 14.4 mm, respectively. There is no evidence of thoracoabdominal aortic aneurysm or stent placement present. The minimum and the perpendicular left c ommon iliac artery measures 6.7 and 6.8 mm, respectively with mildtortuosity a nd mildcalcific atherosclerosis present. The minimum and the perpendicular left external iliac artery measures 6.1 and 6 .2 mm, respectively with minimaltortuosity and nocalcific atherosclerosis present. The minimum and the perpendicular left femor al artery measures 70 and 7.5 mm, respectively with notortuosity and nocalci fic atherosclerosis present. The minimum and the perpendicular right common iliac artery measures 6.7 and 7.0 mm, respectively with mildtortuosity a nd mildcalcific atherosclerosis present. The minimum and the perpendicular right external iliac artery measures 5.2 and 6 .1 mm, respectively with minimaltortuosity and nocalcific atherosclerosis present. The minimum and the perpendicular right femo ral artery measures 7.3 and 7.5 mm, respectively with minimaltor tuosity and nocalcific atherosclerosis present. NON-VASCULAR: The visualised thyroid gland is unremark able. The chest wall and mediastinum appear no rmal ; no significant adenopathy is identified. In fact, patient only has a formal chest CT scan performed a few days ago by the [employer] Tech Radiologist. Refer to formal dictation for details, specifically, there is diffuse emphysematous changes, as well as a right upper lobe mass at image 61, measuring at least 3.9 x 3.6 cm in diameter with irregular margin , concern for lung malignancy. Correlate clinically. In the abdomen, the liver and spleen anni ears unremarkable. The liver edge is smooth. No abnormal enhancing st ructure is identified. The gallbladder wall is contracted and s mall gallstones are seen. No biliary ductal dilation is identified. The adrenal glands are not enlarged. The pancreas appears unremarka ble. No acute renal pathology is seen and no hydronephrosis or perirenal fluid collection is identified. Small no nobstructive renal stone is identified in the left kidney, at image 69, measure 2 to 3 mm in diameter. In addition, in the posterior aspect of the right kidney, at image 335, a hypodensity is seen, that measure 1.7 x 1.9 cm in diameter. There appears to be enhancement noted af ter contrast administration. An addendum will be dictated thereafter, for optimal recommendation. Bowel is not well assessed by CT angiogr aphy as enteric contrast is not given. No obvious by dilation is kam ntified. No free air is identified abdomen and pe lvis. Trace free fluid is identified in the dependent portion of t he pelvis. No significant retroperitoneal adenopath y is identified. In the bony windows, no acute bony patho logy is identified. However, degenerative changes is noted. No obviou s blastic or lytic lesions identified. However, at L3 and L4 level, potential degenerative changes is noted. In fact, a total body bone/joint imaging has been arranged. CONCLUSIONS: 1. Patient has a diagnosis of aortic stenosis. The aortic valve appears to be bicuspid. Correlate with e chocardiography. The aortic Agatston Score is 3000and aortic ulisses ve area is 92 mm2. No mitral annular calcification is identified. There is no calcification seen in the as cending thoracic aorta. Dimensions that may be helpful for TAVR as described above. 2.Coronary artery origins are normal .Scattered calcification is seen in the LAD and LCx territories. 3.Pulmonary findings has been descri bed in formal CT scan a few days ago. Refer to formal CT report by C onsultant Radiologist for details. Pertinent findings include emphysematous changes as well as lung mass identified in the right upper lobe measu re at least 3.9 x 3.6 cm with regular margin. Lung malignancy. 4.Other findings as described above. A hypodensity is identified in the poste rior aspect of the right kidney that may demonstrate some enhance ment. 5.An addendum will be dictated regar ding the non-vascular findings by the [employer] Tech Radiologist. Signed: Ricardo Broussard MD Report Verified Date/Time:11/03/2019 07:39:57 Procedure Note Interface, External Ris In - 11/03/2019 4:20 PM FOIL SPOOLER Addendum Begins REPORT STATUS:A I have reviewed the study for nonvascula r components. I agree with the nonvascular findings as described. A dditional observations are described below: There is left apical lung scarring. This could be a result of old granulomatous disease. A large right upp er lobe mass with spiculated/lobulated border, internal ca lcifications and possible invasion of the anterior chest wall is n oted again as described. It measures approximately 3.5 cm AP by 3.8 cm transverse by 5 cm craniocaudad and is worrisome for primar y lung cancer. There is central necrosis. There is no significan t mediastinal or hilar lymphadenopathy. There is no evidence of lesions in the adrenal glands or liver. There is presence of bilateral diffuse c entrilobular type emphysema. The gallbladder is thick walled. At one point it measures 4 mm. There is diffuse wall enhancement. There is pr esence of a calcified large calculus in the gallbladder. This is wor risome. Further evaluation of the gallbladder is recommended with an u ltrasound examination. There is dilatation of the common bile duct. J ust above the pancreatic head measures approximately 11 mm. There is n o apparent obstructive lesion or calculus seen on this examination. Fu rther evaluation should be performed. The gallbladder and the bilia ry tree can be evaluated best via MRCP examination. There is high density cystic area in the middle pole of the right kidney. This is entirely intramural león l. It measures approximately 2 x 2 centimeters. It shows significant contrast enhancement. Precontrast attenuation is 41. Post cont rast attenuation value is 72. This is also worrisome. A urological con sultation is requested. The study is not optimal for evaluation of the bowel. The cecum and especially the ascending colon appears t hick-walled. This is abnormal. The patient has a history of c olonic malignancy. Correlation with the clinical history or further evaluation of the ascending colon is recommended. The patient appears to be status post hy sterectomy and bilateral salpingo-oophorectomy. Signed: David Miranda MD Report Verified Date/Time: 11/03/2019 1 6:18:17 Reading Location: [place] [id number] Angio Body Reading Room Addendum Ends FINAL REPORT CT angiography of the thoracoabdominal a bill and pelvic arteries, 02 November 2019 INDICATION: This is a 64 year old female with a diagnosis of aortic stenosis, presents for preprocedure TAVR assessment. TECHNIQUE: Spiral acquisition before and during intravenous contrast administration using a Rich multidete ctor CT scanner. Images were obtained before and during the dynamic p assage of intravenous contrast material. Multi-planar 3-D vol ume-rendering reconstruction was performed using an independent works tation interactively by the interpreting physician as well as the 3- D specialist for optimal visualisation of the thoracoabdominal ao rta, the pelvic arteries as well as its proximal branches. Please refer to the contrast sheet scann ed in the [employer] system for the amount and route of contrast given. This exam was performed according to our departmental dose-optimisation programme, which inclu hafsa automated exposure control, adjustment of the mA and/or kV according to patient size and/or use of iterative reconstruction t echnique. Dose modulation, iterative reconstruction, and/or weight based adjustment of the mA/kV was utilized to reduce the radiation dos e to as low as reasonably achievable. FINDINGS: VASCULAR: A central venous catheter is identified, with tip identified in the right atrial level. No pericardial effusion is identified. The central pulmonary artery is normal i n calibre. The cardiac chambers demonstrate normal atrioventricular and ventriculoarterial concordance, and syst emic and pulmonary venous return. The left ventricle is normal in size. No mitral annular calcification is identified. Left atrial size appears to be unremarkable. 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 Coronary artery origins are normal. Calc ification is identified in the proximal and mid LAD, proximal LCx. Patient has a diagnosis of aortic stenos is. The aortic valve appears to be bicuspid. Correlate with echocardi ography. The aortic Agatston score is 3000. The aortic valve area is 92 mm2. The location of aortic valvular calcification can be see n in reformatted data set sent to PACS. Regarding the aorta, the aortic root is free of calcification. The ascending thoracic aorta, is also free o f calcification. Mild calcification is seen in the transverse arch and descending thoracic aorta. In the abdominal aorta, scattered calcification is identified. No ectasia or aneurysmal dilation is see n. There is no evidence of acute aortic pat hology, specifically, there is no dissection, intramural hematoma, o r contained rupture. The arch vessel branching pattern is nor mal and the visualised arch vessels are widely patent proximally. Th e left subclavian artery, has mild calcification identified at its joana eoff and is widely patent. At image 20, it measures 6 mm in diameter. The right subclavian artery also has mild calcification identified. At image 13, it measures 5.7 mm in diameter. There are single left and right renal ar teries that are widely patent. The coeliac axis, SMA, and RE a re widely patent. The common iliac, external iliac, common femoral, and the visualised superficial femoral arteries, bilaterall y, are widely patent, with nonobstructive calcification, seen predo minantly in the common iliac level. Dimensions that may be helpful for TAVR as follows: There is no calcification seen in the ao rtic root/ascending thoracic aorta. The major and minor aortic annulus diame ter measures 26.9 and 20.9 mm, respectively. The aortic annulus per imeter measured 76 mm and the cross-sectional area measures 436 mm2. T he aortic annulus diameter at the traditional LVOT and coronal LVOT me asures 21.9 and 23.1 mm, respectively. For reference purpose, per HENSLEY Maycol martínez, recommendation are as follows: CT area between 273 to 345 mm2 (20 mm valve); 338 to 430 mm2 (23 mm valve); 430 to 546 mm2 (26 mm ulisses ve); 540 to 683 mm2 (29 mm valve). For reference purpose, per [employer] Elliot coleman cohen, recommendation are as follows: CT perime ter between 56.5-62.8 mm (23 mm valve); 62.8-72.3 mm (26 mm valve); 7 2.3-81.7 mm (29 mm valve); and 81.7-94.2. mm (34 mm valve). For reference purpose, per Anali Yani martínez, recommendation are as follows: 23mm valve is recommended for C T perimeter between 62.8-72.3 mm; diameter between 20-23 mm; or area b etween 314-415.5 mm2. For 25mm valve, it is recommended for CT per imeter between 72.3-78.5 mm; diameter between 23-25 mm; or area betwe en 415.5-490.9 mm2. For 27mm valve, it is recommended for CT perimete r between 78.5-84.8 mm; diameter between 25-27 mm; or area betwe en 490.9-572.6 mm2. Agatston Score is 3000. The aortic valve area is 92. The distance between the take off of the RCA and the annulus (systole): 10.1 mm The distance between the take off of the LM1 and the annulus (systole): 10.4 mm Sinus of Valsalva orthogonal no diameter , measured in systole, is approximately 29.9 x 34.4 mm. The sinotubular junction measures, 31.6 x 30.5 mm. The aortic root angulation measures 37.5 degrees. The minimal and perpendicular abdominal aortic diameter measure 11.1 and 14.4 mm, respectively. There is no evidence of thoracoabdominal aortic aneurysm or stent placement present. The minimum and the perpendicular left c ommon iliac artery measures 6.7 and 6.8 mm, respectively with mild tortuosity and mild calcific atherosclerosis present. The minimum and the perpendicular left external iliac artery measures 6.1 and 6 .2 mm, respectively with minimal tortuosity and no calcific ath erosclerosis present. The minimum and the perpendicular left femor al artery measures 70 and 7.5 mm, respectively with no tortuosity and no calcific atherosclerosis present. The minimum and the perpendicular right common iliac artery measures 6.7 and 7.0 mm, respectively with mild tortuosity and mild calcific atherosclerosis present. The minimum and the perpendicular right external iliac artery measures 5.2 and 6 .1 mm, respectively with minimal tortuosity and no calcific ath erosclerosis present. The minimum and the perpendicular right femo ral artery measures 7.3 and 7.5 mm, respectively with minimal tortu osity and no calcific atherosclerosis present. NON-VASCULAR: The visualised thyroid gland is unremark able. The chest wall and mediastinum appear no rmal ; no significant adenopathy is identified. In fact, patient only has a formal chest CT scan performed a few days ago by the [employer] Tech Radiologist. Refer to formal dictation for details, specifically, there is diffuse emphysematous changes, as well as a right upper lobe mass at image 61, measuring at least 3.9 x 3.6 cm in diameter with irregular margin , concern for lung malignancy. Correlate clinically. In the abdomen, the liver and spleen anni ears unremarkable. The liver edge is smooth. No abnormal enhancing st ructure is identified. The gallbladder wall is contracted and s mall gallstones are seen. No biliary ductal dilation is identified. The adrenal glands are not enlarged. The pancreas appears unremarka ble. No acute renal pathology is seen and no hydronephrosis or perirenal fluid collection is identified. Small no nobstructive renal stone is identified in the left kidney, at image 69, measure 2 to 3 mm in diameter. In addition, in the posterior aspect of the right kidney, at image 335, a hypodensity is seen, that measure 1.7 x 1.9 cm in diameter. There appears to be enhancement noted af ter contrast administration. An addendum will be dictated thereafter, for optimal recommendation. Bowel is not well assessed by CT angiogr aphy as enteric contrast is not given. No obvious by dilation is kam ntified. No free air is identified abdomen and pe lvis. Trace free fluid is identified in the dependent portion of t he pelvis. No significant retroperitoneal adenopath y is identified. In the bony windows, no acute bony patho logy is identified. However, degenerative changes is noted. No obviou s blastic or lytic lesions identified. However, at L3 and L4 level, potential degenerative changes is noted. In fact, a total body bone/joint imaging has been arranged. CONCLUSIONS: 1. Patient has a diagnosis of aortic s tenosis. The aortic valve appears to be bicuspid. Correlate with e chocardiography. The aortic Agatston Score is 3000 and aortic valve area is 92 mm2. No mitral annular calcification is identified. There is no calcification seen in the as cending thoracic aorta. Dimensions that may be helpful for TAVR as described above. 2. Coronary artery origins are normal. Scattered calcification is seen in the LAD and LCx territories. 3. Pulmonary findings has been describe d in formal CT scan a few days ago. Refer to formal CT report by C onsultant Radiologist for details. Pertinent findings include emphysematous changes as well as lung mass identified in the right upper lobe measu re at least 3.9 x 3.6 cm with regular margin. Lung malignancy. 4. Other findings as described above. A hypodensity is identified in the poste rior aspect of the right kidney that may demonstrate some enhance ment. 5. An addendum will be dictated regardi ng the non-vascular findings by the [employer] Tech Radiologist. Signed: Ricardo Broussard MD Report Verified Date/Time: 11/03/2019 0 7:39:57 Performing Organization Address City/State/Zipcode Phone Number [place] PULMONARY FUNCTION - SCAN (11/02/2019 3:02 PM FOIL SPOOLER) Narrative Performed At This result has an attachment that is no t available. Carotid doppler bilateral (11/02/2019 9:27 AM FOIL SPOOLER) Ejection Fraction [facility] ECHO HEAR TLAB [facility] CPACS Specimen Impressions Performed At Right Impression [facility] ECHO HEARTLAB [facility] CPACS 1. There is <50% diameter reduction (approximately 11% by 2-D measurement) in the internal carotid artery with a peak velocity of 69/26 cm/sec and heterogeneous plaque. 2. There is no stenosis in the external carotid artery. 3. The common carotid artery is within normal limits. 4. The vertebral artery flow is antegrad e. 5. The subclavian artery is within normal limits where visualized. Left Impression 1. The internal carotid artery is within normal limits. 2. There is no stenosis in the external carotid artery. 3. The common carotid artery is within normal limits. 4. The vertebral artery flow is antegrad e. 5. The subclavian artery is within normal limits where visualized. Conclusions Summary Carotid duplex scanning and color flow imaging were performed bilaterally. The arteries were adequately visualized. The right internal carotid artery had <50% hemodynamically insignificant stenosis (approximately 11% by 2-D measurement) with heterogeneous plaque. The left internal carotid artery had no areas of stenosis. The vertebral artery flow was antegrade bilaterally. Signature Velocities are measured in cm/s ; Diameters are measured in cm Carotid Right Measurements +---------+----+----+-----+ +--------- + + !Location !PSV !EDV !Angle!%Stenosis 2D !%Stenosis Doppler !Tortuosity ! +---------+----+----+-----+ +--------- + + !Prox CCA !88!40.9!60 ! !! ! +---------+----+----+-----+ +--------- + + !Mid CCA!50.3!!60 ! !! ! +---------+----+----+-----+ +--------- + + !Dist CCA !53.4!33.8!60 ! !! ! +---------+----+----+-----+ +--------- + + !Prox ICA !69.5!26.7!60 !11%!<50% ! ! +---------+----+----+-----+ +--------- + + !Dist ICA !51.9!31.4!60 ! !! ! +---------+----+----+-----+ +--------- + + !Prox ECA !39.3!16.5!60 ! !! ! +---------+----+----+-----+ +--------- + + !Vertebral!39.7!17.7!60 ! !! ! +---------+----+----+-----+ +--------- + + - There is antegrade vertebral flow noted on the right side. - Additional Measurements:ICAPSV/CCAPSV 1.3.ICAEDV/CCAEDV 0.77. Carotid Left Measurements + +----+----+-----+ +---- + + !Location !PSV !EDV !Angle!%Stenosis 2D!%Stenosis Doppler!Tortuosity ! + +----+----+-----+ +---- + + !Prox CCA !88.5!35.2!60 !! ! ! + +----+----+-----+ +---- + + !Dist CCA !76.8!31.1!60 !! ! ! + +----+----+-----+ +---- + + !Prox ICA !57.5!27!60 !!Normal ! ! + +----+----+-----+ +---- + + !Dist ICA !61!33.4!60 !! ! ! + +----+----+-----+ +---- + + !Prox ECA !56.3!21.7!60 !! ! ! + +----+----+-----+ +---- + + !Vertebral!62.1!21.7!60 !! ! ! + +----+----+-----+ +---- + + !Prox Subclavian!63.3!11.1!60 !! ! ! + +----+----+-----+ +---- + + - There is antegrade vertebral flow noted on the left side. - Additional Measurements:ICAPSV/CCAPSV 0.79.ICAEDV/CCAEDV 0.95. Narrative Performed At LAB - Carotid Duplex Study [facility] Demographics Patient Name QUIANA VALLADARES of Study11/02/2019 [id number] Visit Number [id number] Gender Female Accession Number [id number] Date of Birth1955 ReferringMinna TaraNehemias CludpnU479 Eleanor SonographerAmy De La Paz Interpreting Christa Carter , RN, Nikki DE LA CRUZ Procedure Type of Study: Cerebral: Carotid, CAROTID DOPPLER, JOY ATERAL. Indications for Study:Pre op TVAR. Patient Status:Routine. Study Location:Vascular Lab. Technical Quality:Adequate visualization . Risk Factors History of Disease + +----+---- + !Diagnosis !Date!Comments ! + +----+---- + !History/Risk Factors:! !Cancer, HTN, DM ! + +----+---- + Procedure Note Interface, External Ris In - 11/02/2019 6:12 PM FOIL SPOOLER PV LAB - Carotid Duplex Study Demographics Patient Name QUIANA VALLADARES ate of Study 11/02/2019 A ge 64 Visit Number [id number] G lionel Female Accession Number [id number] D ate of 1955 Referring Minna lara Number [id number] Physician [place] Outdoor Adventure Instructor Amy De La Paz I nterpreting Christa Carter RN, RVT P glenny DE LA CRUZ Procedure Type of Study: Cerebral: Carotid, CAROTID DOPPLER, JOY ATERAL. Indications for Study:Pre op TVAR. Patient Status:Routine. Study Location:Vascular Lab. Technical Quality:Adequate visualization . Risk Factors History of Disease + +----+ + !Diagnosis !Date!Comments ! + +----+ + !History/Risk Factors: ! !Cancer, HTN, DM ! + +----+ + Impressions Right Impression 1. There is <50% diameter reduction (anni roximately 11% by 2-D measurement) in the internal carotid artery with a pe ak velocity of 69/26 cm/sec and heterogeneous plaque. 2. There is no stenosis in the external carotid artery. 3. The common carotid artery is within n ormal limits. 4. The vertebral artery flow is antegrad e. 5. The subclavian artery is within sherie l limits where visualized. Left Impression 1. The internal carotid artery is within normal limits. 2. There is no stenosis in the external carotid artery. 3. The common carotid artery is within n ormal limits. 4. The vertebral artery flow is antegrad e. 5. The subclavian artery is within sherie l limits where visualized. Conclusions Summary Carotid duplex scanning and color flow imaging were performed bilaterally. The arteries were adequately visualized . The right internal carotid artery had <50% hemodynamically insignificant stenosis (approximately 11% by 2-D measurement) with heterogeneous plaque. The left internal carotid artery had no areas of stenosis. The vertebral artery flow was antegrade bilaterally. Signature Velocities are measured in cm/s ; Diamet ers are measured in cm Carotid Right Measurements +---------+----+----+-----+ + + + !Location !PSV !EDV !Angle!%Stenosis 2D !%Stenosis Doppler !Tortuosity ! +---------+----+----+-----+ + + + !Prox CCA !88 !40.9!60 ! ! ! ! +---------+----+----+-----+ + + + !Mid CCA !50.3! !60 ! ! ! ! +---------+----+----+-----+ + + + !Dist CCA !53.4!33.8!60 ! ! ! ! +---------+----+----+-----+ + + + !Prox ICA !69.5!26.7!60 !11% !<50% ! ! +---------+----+----+-----+ + + + !Dist ICA !51.9!31.4!60 ! ! ! ! +---------+----+----+-----+ + + + !Prox ECA !39.3!16.5!60 ! ! ! ! +---------+----+----+-----+ + + + !Vertebral!39.7!17.7!60 ! ! ! ! +---------+----+----+-----+ + + + - There is antegrade vertebral flow no nicky on the right side. - Additional Measurements:ICAPSV/CCAPS V 1.3.ICAEDV/CCAEDV 0.77. Carotid Left Measurements + +----+----+-----+------- -----+ + + !Location !PSV !EDV !Angle!%Stenos is 2D!%Stenosis Doppler!Tortuosity ! + +----+----+-----+------- -----+ + + !Prox CCA !88.5!35.2!60 ! ! ! ! + +----+----+-----+------- -----+ + + !Dist CCA !76.8!31.1!60 ! ! ! ! + +----+----+-----+------- -----+ + + !Prox ICA !57.5!27 !60 ! !Normal ! ! + +----+----+-----+------- -----+ + + !Dist ICA !61 !33.4!60 ! ! ! ! + +----+----+-----+------- -----+ + + !Prox ECA !56.3!21.7!60 ! ! ! ! + +----+----+-----+------- -----+ + + !Vertebral !62.1!21.7!60 ! ! ! ! + +----+----+-----+------- -----+ + + !Prox Subclavian!63.3!11.1!60 ! ! ! ! + +----+----+-----+------- -----+ + + - There is antegrade vertebral flow no nicky on the left side. - Additional Measurements:ICAPSV/CCAPS V 0.79.ICAEDV/CCAEDV 0.95. Performing Organization Address City/State/Zipcode Phone Number [facility] ECHOCARDIOGRAM REPORT - SCAN (11/01/2019 9:20 PM FOIL SPOOLER) Narrative Performed At This result has an attachment that is no t available. Pulmonary Funct Lab Spirometry (11/01/2019 5:02 PM FOIL SPOOLER) Narrative Performed At Leny Almonte THERON, HEALTH SAFETY INSTRUCTOR 0205:45 PM [facility] PFT CHARTING REPORT Infection Control/Hand Hygiene procedure s followed throughout the encounter with patient: Yes Patient Identification Method: Patient n simin verified on armband, and Medical record on armband, Is the order complete?: Yes Account ID#: [id number] Patient Name: Quiana Valldaares Birthdate: 1955 Age: 64 y.o.Sex: female Admission Date: 10/30/2019 Patient Status: Inpatient Reasons/Symptom for having the Test?: a history/complaint of a dyspnea Type of study/treatment ordered by physi logan: Bedside Spirometry with bronchodilators Lab Results Component Value Date HGB 10.8 (L) 11/01/2019 Ranges: Adult Male 13 - 16.8 g/dlA dult Female 12 - 15 g/dl 6 Minute Walk (read only) 11/01/2019 020 11/01/2019 Pulse - 86 69 SpO2 98 98 - Study Date: 11/01/19 Study Time: 1702 ASSESSMENT History & Physical Mode of Arrival: Testing was performed at patient bedside Pulse: 82 Resp: 19SPO2: 98 %on RA Pain Assessment Pain:None TESTING/THERAPEUTICS Medications ordered or required for pro cedure: Albuterol, PT EDUCATION/INSTRUCTIONS Barriers to learning: No known barriers to learning. Learning need identified: Yes, Patient/ Family/Guradian was informed of the ordered study by the moy bond Barriers to performing study or treatme nt: Patient has no known disability to perform the study or treat ment. DISCHARGE The study was completed in accordance wi th the physician's order and patient released from the lab withou t adverse outcome. 2D Echo W/Doppler(CW/PW/Color) (11/01/2019 1:22 PM FOIL SPOOLER) Ejection Fraction [facility] Specimen Narrative Performed At Transthoracic Echocardiography Report (T TE) [facility] Demographics Patient Name QUIANA VALLADARES Date of Study 11/01/2019 KARINA [id number] GenderFem edwin Visit Number [id number] RaceCauc [id number] m Number [id number] Number Date of Birth1955 Referring Physician Helio Buitrago MD Age64 year(s) Outdoor Adventure Instructor Delmar Odonnell ms CS Mani Poole Deborasandra InterpretingStPhysician JONO Lewis Procedure Type of Study TTE procedure:2DECHO W DOPPLER(CW/PW/COLOR) (STAT) Indications:Routine follow up of valve stenosis with no clinical change. Clinical History HGB 10.8 HCT 32.6 % , COLORECTAL CA (S/P CHEMORADIATION 2015), NEWLY DX LUNG MASS, COPD, R/L CATH (11/01/19) Height: 65 inches Weight: 52.62 kg (116 lbs) BSA: 1.57 m^2 BMI: 19.3 kg/m^2 HR: 80 bpm BP: 120/75 mmHg Summary HGB 10.8 HCT 32.6 % 1. Normal LV size and function. All segments contract low normally. LVEF is lower limits of normal (50-55%) . 2. Normal RV size and function. 3. Severe aortic stenosis. AoV area at rest by continuity equation is in the range of 0.66 cm2 AoV resting Peak/Mean Gradient 84.66/54 .08mmHg. 4. Estimated peak systolic pressure is at least 30-35 mmHg. 5. Grade 1 diastolic dysfunction (impaired relaxation and low-normal LA pressure) Previous Study No prior exam available for comparison. Signature Findings Left Ventricle The left ventricle is chamber size (by vol index) is moderately enlarged (female - LVED vol -7 1-80ml/m2). No rmal LV wall thickness. Al l of the LV segments contract low normal ly . Gl obal LV systolic function lower limits o f normal . LV EF by Gutierrez's method of disk assessmen t is lo wer limits of normal (50-55%) . Th e LVEF was measured using Gutierrez's bi-p klarissa me thod of disk . Gr sigrid 1 diastolic dysfunction (impaired re laxation an d low-normal LA pressure). Left AtriumLA size is mildly enlarged (35-41 ml/m2) . Right VentricleThe right ventricular chamber size and systolic fu nction are within normal limits. Right Atrium RA cavity size is normal . Aortic Valve Severe AoV cusp calcification. Ao V cusp mobility is severely decreased . Se chito aortic stenosis. Ao V area at rest by continuity equation is in the ra nge of 0.66 cm2. Ao V resting dimensionless obstructive inde x (DOI) 0. 19. Ao V resting Peak/Mean Gradient 84.66/54.08 mmHg. Mitral Valve Mild mitral annular calcification. Tricuspid ValveMild tricuspid regurgitation. Pe ak systolic pressure may be underestimat ed; pa rtial TR signal. Es timated peak systolic pressure is at lissette st 30-35 mm Hg. Pulmonic Valve PV is not well visualized; function appears normal by Doppler visualized. AortaAortic root size (SInus of Valsalva diameter) i s no rmal . PericardiumNo significant pericardial effusion is visualized. IVC/SVC/PA/PV/PleuralThe estimated RA pressure by IVC dynamics 5-10mmHg . Th e right upper pulmonary vein (RUPV) is n ormal . Chambers/Structures Left Atrium LA Volume: 59.81 mlLA Area: 16.6 cm^2 LA Vol. Index: 38 ml/m^2 Left Ventricle LVIDd: 4.39 cm LV Septum Diastolic: 1.11 cm LV PW Diastolic: 0.93 cm LVEDV Gutierrez's:112.22 mlLV Length: 7.74 cm LVESV Guteirrez's:55.95 ml LVEF Gutierrez's: 50.2 % LVEDVI: 71 ml/m^2 LVESVI: 36 ml/m^2 LVOT Diameter: 2.13 cm Right Atrium RA Vol. (Sngl Plane): 3 8.31 ml Right Ventricle RV Diast Dim.: 3.91 cm TAPS E: 2.51 cm Aorta Ao Root S of Ulisses.: 2.87 cm Doppler/Quantitative Measurements Mitral Valve MV Peak E-Wave: 0.74 m/sMV Peak A-Wave: 1.19 m/s E/A Ratio: 0. 63 Peak Gradient : 2.2 mmHg Deceleration Time: 266.9 msec MV Michael. Peak: Tissue Doppler E' Septal Velocity: 0.08 m/sE/E': 9.21 E' Lateral Velocity: 0.09 m/s Aortic Valve Peak Velocity: 4.6 m/s Mean Velocity: 3.47 m/s Peak Gradient: 84.66 mmHgMean Gradient: 54.08 mmHg AV Area (continuity): 0.66 cm^2 AV VTI: 110.58 cm AV DVI: 0.19 LVOT Peak Velocity: 0.8 m/sPeak Gradient: 2.53 mmHg Mean Velocity: 0.66 m/s Mean Gradient: 1.84 mmHg LVOT Diameter: 2.13 cmLVOT VTI: 20.51 cm LVOT Area: 3.56 cm^2LVOT SV:73.05 ml LVOT CO: 5.84 l/min LVOT CI: 3.72 l/min/m^2 Tricuspid Valve TR Velocity: 2.39 m/s TR Gradient: 22.84 mmHg Procedure Note Interface, External Ris In - 11/01/2019 4:22 PM FOIL SPOOLER Transthoracic Echocardiography Report (TTE) Demographics Patient Name QUIANA VALLADARES Date of Study 11/01/2019 KARINA Gender Female Visit Number [id number] Race [facility] [id number] Number Date of 1955 Referri Physician Helio Buitrago MD Age 64 year(s) Sonogra pher Delmar Gotti [facility] Structural Steel Erection Supervisor Asaf Rankin Interpr etiKeara Shaver MD Procedure Type of Study TTE procedure:2DECHO W DOPPLE R(CW/PW/COLOR) (STAT) Indications:Routine follow up of valve s tenosis with no clinical change. Clinical History HGB 10.8 HCT 32.6 % , COLORECTAL CA (S/P CHEMORADIATION 20 16), NEWLY DX LUNG MASS, COPD, R/L CATH (11/01/19) Height: 65 inches Weight: 52.62 kg (116 lbs) BSA: 1.57 m^2 BMI: 19.3 kg/m^2 HR: 80 bpm BP: 120/75 mmHg Summary HGB 10.8 HCT 32.6 % 1. Normal LV size and function. All seg ments contract low normally. LVEF is lower limits of normal (50-55%) . 2. Normal RV size and function. 3. Severe aortic stenosis. AoV area at rest by continuity equation is in the range of 0.66 cm2 AoV resting Peak/Mean Gradient 84.66/54 .08mmHg. 4. Estimated peak systolic pressure is at least 30-35 mmHg. 5. Grade 1 diastolic dysfunction (impai red relaxation and low-normal LA pressure) Previous Study No prior exam available for comparison. Signature Findings Left Ventricle The left ventric le is chamber size (by vol index) is moderately en larged (female - LVED vol -71-80ml/m2). Normal LV wall t hickness. All of the LV se gments contract low normally . Global LV systol ic function lower limits of normal . LVEF by Gutierrez' s method of disk assessment is lower limits of normal (50-55%) . The LVEF was lin sured using Gutierrez's bi-plane method of disk . Grade 1 diastoli c dysfunction (impaired relaxation and low-normal L A pressure). Left Atrium LA size is mildl y enlarged (35-41 ml/m2) . Right Ventricle The right ventri cular chamber size and systolic function are wit hin normal limits. Right Atrium RA cavity size i s normal . Aortic Valve Severe AoV cusp calcification. AoV cusp mobilit y is severely decreased . Severe aortic st enosis. AoV area at rest by continuity equation is in the range of 0.66 cm 2. AoV resting dime nsionless obstructive index (DOI) 0.19. AoV resting Peak /Mean Gradient 84.66/54.08mmHg. Mitral Valve Mild mitral margarito lar calcification. Tricuspid Valve Mild tricuspid r egurgitation. Peak systolic pr essure may be underestimated; partial TR signa l. Estimated peak s ystolic pressure is at least 30-35 mmHg. Pulmonic Valve PV is not well v isualized; function appears normal by Doppler visua lized. Aorta Aortic root size (SInus of Valsalva diameter) is normal . Pericardium No significant p ericardial effusion is visualized. IVC/SVC/PA/PV/Pleural The estimated RA pressure by IVC dynamics 5-10mmHg . The right upper pulmonary vein (RUPV) is normal . Chambers/Structures Left Atrium LA Volume: 59.81 ml LA Area: 16.6 cm^2 LA Vol. Index: 38 ml/m^2 Left Ventricle LVIDd: 4.39 cm LV Septum Diastolic: 1.11 cm LV PW Diastolic: 0.93 cm LVEDV Gutierrez's:112.22 ml LV Length: 7.74 cm LVESV Gutierrez's:55.95 ml LVEF Gutierrez's: 50.2 % LVEDVI: 71 ml/m^2 LVESVI: 36 ml/m^2 LVOT Diameter: 2.13 cm Right Atrium RA Vol. (Sngl Plane): 38.31 ml Right Ventricle RV Diast Dim.: 3.91 cm TAPSE: 2.51 cm Aorta Ao Root S of Ulisses.: 2.87 cm Doppler/Quantitative Measurements Mitral Valve MV Peak E-Wave: 0.74 m/s M V Peak A-Wave: 1.19 m/s E /A Ratio: 0.63 P eak Gradient: 2.2 mmHg D eceleration Time: 266.9 msec MV Michael. Peak: Tissue Doppler E' Septal Velocity: 0.08 m/s E /E': 9.21 E' Lateral Velocity: 0.09 m/s Aortic Valve Peak Velocity: 4.6 m/s Mean Velocity: 3.47 m/s Peak Gradient: 84.66 mmHg Mean Gradient: 54.08 mmHg AV Area (continuity): 0.66 cm^2 AV VTI: 110.58 cm AV DVI: 0.19 LVOT Peak Velocity: 0.8 m/s Pea k Gradient: 2.53 mmHg Mean Velocity: 0.66 m/s Lin n Gradient: 1.84 mmHg LVOT Diameter: 2.13 cm LVO T VTI: 20.51 cm LVOT Area: 3.56 cm^2 LVO T SV:73.05 ml LVOT CO: 5.84 l/min LVO T CI: 3.72 l/min/m^2 Tricuspid Valve TR Velocity: 2.39 m/s TR Gradient: 22.84 mmHg Performing Organization Address City/[facility] Phone Number [facility] ABORH, manual (11/01/2019 5:53 AM FOIL SPOOLER) ABO Grouping O [facility], [place] Rh Factor POS [facility], [place] Specimen Blood Performing Organization Address City/[facility] Hospitalc[facility]y Phone Number [facility] [address] [place] [address] CT chest for pulmonary embolus (10/30/2019 5:29 PM FOIL SPOOLER) Specimen Narrative Performed At FINAL REPORT [facility] TECHNIQUE: CT of the chest WITH intraven ous contrast (pulmonary embolism protocol). Dose modulation, ite rative reconstruction, and/or weight-based adjustment of the mA/kV was utilized to reduce the radiation dose to as low as reasonably a chievable. INDICATION: 64-year-old woman with chest pain, shortness of breath, and history of cancer. COMPARISON: Chest radiograph from [facility] same date. FINDINGS: LINES/TUBES: The tip of a right internal jugular chest port terminates in the cavoatrial junction. PULMONARY ARTERIES: Proximal to the bifu rcation of the main pulmonary artery, the main pulmonary artery is 2.5 cm in diameter.No filling defects within the pulmonary arteries to suggest pulmonary embolus. LUNGS AND AIRWAYS: Trace mucus in the ri ght and left mainstem bronchi with mildly thickened bronchial walsh. C entrilobular emphysema. 3.9 x 3.8 cm mass in the right upper lobe (axi al lung window series image 12). 4 mm noncalcified nodule in the lef t upper lobe (axial lung window series image 13). 3 mm noncalcifi ed nodules in the right lower lobe (axial lung window series images 38 and 44). Mild dependent atelectasis in the left lower lobe. PLEURA: The pleural spaces are clear. HEART AND MEDIASTINUM: The visualized th yroid gland is normal. No significant mediastinal, hilar, or axill perla lymphadenopathy. The heart and pericardium are within normal limits. Atherosclerotic calcifications in the thoracic aorta and coronary arteries. SOFT TISSUES AND BONES: Unremarkable. UPPER ABDOMEN: Unremarkable. IMPRESSION: No pulmonary embolus. Centrilobular emphysema with suspected b ronchitis. 3.9 cm mass in the right upper lobe, romeo picious for primary lung malignancy. Additional differential cons ideration includes metastasis given the reported history of colon canc er. Indeterminate 3-4 mm bilateral pulmonary nodules. Signed: Vale Cox MD Report Verified Date/Time:10/30/2019 18:23:35 Reading Location: [address] Body R ding Room Procedure Note Interface, External Ris In - 10/30/2019 6:25 PM FOIL SPOOLER FINAL REPORT TECHNIQUE: CT of the chest WITH intraven ous contrast (pulmonary embolism protocol). Dose modulation, ite rative reconstruction, and/or weight-based adjustment of the mA/kV was utilized to reduce the radiation dose to as low as reasonably a chievable. INDICATION: 64-year-old woman with chest pain, shortness of breath, and history of cancer. COMPARISON: Chest radiograph from [facility] same date. FINDINGS: LINES/TUBES: The tip of a right internal jugular chest port terminates in the cavoatrial junction. PULMONARY ARTERIES: Proximal to the bifu rcation of the main pulmonary artery, the main pulmonary artery is 2.5 cm in diameter. No filling defects within the pulmonary arteries to suggest pulmonary embolus. LUNGS AND AIRWAYS: Trace mucus in the ri ght and left mainstem bronchi with mildly thickened bronchial walsh. C entrilobular emphysema. 3.9 x 3.8 cm mass in the right upper lobe (axi al lung window series image 12). 4 mm noncalcified nodule in the lef t upper lobe (axial lung window series image 13). 3 mm noncalcifi ed nodules in the right lower lobe (axial lung window series images 38 and 44). Mild dependent atelectasis in the left lower lobe. PLEURA: The pleural spaces are clear. HEART AND MEDIASTINUM: The visualized th yroid gland is normal. No significant mediastinal, hilar, or axill perla lymphadenopathy. The heart and pericardium are within normal limits. Atherosclerotic calcifications in the thoracic aorta and coronary arteries. SOFT TISSUES AND BONES: Unremarkable. UPPER ABDOMEN: Unremarkable. IMPRESSION: No pulmonary embolus. Centrilobular emphysema with suspected b ronchitis. 3.9 cm mass in the right upper lobe, romeo picious for primary lung malignancy. Additional differential cons ideration includes metastasis given the reported history of colon canc er. Indeterminate 3-4 mm bilateral pulmonary nodules. Signed: Vale Cox MD Report Verified Date/Time: 10/30/2019 1 8:23:35 Reading Location: [facility] [id number] CT Body R eading Room Performing Organization Address City/State/Zipcode Phone Number [facility] RIS Troponin I (10/30/2019 4:04 PM FOIL SPOOLER) Troponin I <0.01 0.00 - 0.03 ng/mL [facility] Specimen Blood Narrative Performed At Troponin I (TnI) levels must be interpreted [facility] in the context of the presenting symptoms and the clinical findings. Elevated TnI levels indicate myocardial damage, but are not specific for ischemic heart disease. Elevated TnI levels are seen in patients with other cardiac conditions (including myocarditis and congestive heart failure), and slight TnI elevations occur in patients with other conditions, including sepsis, renal failure, acidosis, acute neurological disease, and persistent tachyarrhythmia. Job Change Crew Member ID - BS Performing Organization Address City/State/Zipcode Phone Number [address] [address] CENTER after 03/24/2019 Insurance Payer Benefit Plan / Group Subscriber ID Type Phone A ddress MEDICARE MEDICARE A B xxxxxxxxxxx Medicare CDC REVIEW CDC REVIEW xxxxxxxx [address] [place], [place] [phone] Advance Directives For more information, please contact:[place] [id number] [place], [place] [phone] Code Status Date Activated Date Inactivated Comments Full Code 01/11/2020 6:46 AM 01/12/2020 4:51 PM This code status was determined by: Patient Full Code 12/05/2019 9:38 AM 12/07/2019 4:40 PM This code status was determined by: Patient Full Code 11/29/2019 8:09 PM 12/05/2019 9:37 AM This code status was determined by: Patient Full Code 11/17/2019 12:30 PM 11/26/2019 5:38 PM This code status was determined by: Patient Full Code 11/17/2019 8:30 AM 11/17/2019 12:30 PM This code status was determined by: Patient
--- OUTSIDE RECORDS SUMMARY | 2020-03-24 17:47 | XMS REPORT | Continuity of Care Document ---
:1955 Author Organization [facility] t Address [address] [place] [address] [address] [place] [address] Care Team Providers Name Role Phone Pcp Primary Care Physician Unavailable Rodrigo Buitrago MD Attending Clinician Nickolas DE LA CRUZ Attending Clinician RODRIGO BUITRAGO Attending Clinician Unavailable Abel VOGEL Attending Clinician Unavailable Chandan Aleman Attending Clinician Unavailable Yasmine Cartagena MD Attending Clinician Zayda Mcbride MD Attending Clinician Deidra Francis MD Attending Clinician Yasmine CARTAGENA Attending Clinician Unavailable Yisel Aguilar MD Attending Clinician Sabiha Bauman Attending Clinician YISEL AGUILAR Attending Clinician Unavailable Jerrell PATEL I Attending Clinician Unavailable René Attending Clinician Unavailable Ronnie Gonzalez MD Attending Clinician Coty Overton MD Attending Clinician RONNIE GONZALEZ Attending Clinician Unavailable RODRIGO BUITRAGO Admitting Clinician Unavailable ZAYDA MCBRIDE Admitting Clinician Unavailable YISEL AGUILAR Admitting Clinician Unavailable Coty OVERTON Admitting Clinician Unavailable Payers Payer Name Policy Policy Number Effective Expiration Source Type Date Date MEDICAREMEDICARE A xxxxxxxxxxx [facility] CDC REVIEWCDC xxxxxxxx [facility] REVIEWxxxxxxxxPO ANGELIQUE [facility] [id number] [place] Problems Condition Condition Condition Status Onset Resolution Last Treating Co mments Source Name Details Category Date Date Treatment Clinician Date PFO PFO Disease Active [facility] (patent (patent 5-14 [facility] foramen foramen 00:00: Medical ovale) ovale) 00 Center Thalamic Thalamic Disease Active 2019- [facility] stroke stroke 4-02 [facility] - [facility] Medical 00 [place] HTN HTN Disease Active [facility] (hypertens (hypertens 3-25 Kristi kes - ion) ion) 00:00: Medical chronic chronic 00 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 Aguilar, Shantelle, 11/22/2019 11/22/2019 ) ) Malignant Malignant Disease Active [facility] neoplasm neoplasm 3-07 [facility] - of upper of upper 00:00: Medica l lobe of lobe of 00 [place] right lung right lung COPD COPD Disease Active [facility] exacerbati exacerbati 3-03 Kristi kes - on on 00:00: Medical 00 [place] Colorectal Colorectal Disease Active [facility] cancer cancer 3-03 [facility] - (HCC) S/P (HCC) S/P 00:00: Medi hamlet chemoradia chemoradia 00 Ce nter tion in tion in 2016 2016 History of Past Illness Condition Condition Condition Status Onset Resolution Last Treating Co mments Source Name Details Category Date Date Treatment Clinician Date SOB SOB Disease Resolve 2019-11-22 2019-11-[address] [facility] (shortness (shortness d 3-02 00:00:00 11:35:28 [facility] - of breath) of breath) 00:00: Me dical [address] [place] [address] Allergies, Adverse Reactions, Alerts Allergy Allergy Status Severity Reaction(s) Onset Inactive Treating Comm ents Source Name Type Date Date Clinician Sulfamet Propensi Active Swelling [facility] hoxazole ty to 3-19 [facility] - -Trimeth adverse 00:00: Medical oprim reaction 00 Center s Sulfamet Propensi Active Anaphylaxis [facility] hoxazole ty to 8-12 [facility] - adverse 00:00: Medical reaction 00 Center s Social History Social Habit Start Date Stop Date Quantity Comments Source Sex Assigned At [facility] Cigarettes smoked 2020-01-15 2020-01-15 [facility] - current (pack per 00:00:00 00:00:00 [facility] Center day) - Reported Cigarette pack-years 2020-01-15 2020-01-15 [facility] - 00:00:00 00:00:00 [facility] Alcohol Comment 2019-11-16 2019-11-16 Occasional [facility] - 00:00:00 00:00:00 [facility] Smoking Status Start Date Stop Date Source Current every day smoker 2020-01-15 00:00:00 [facility] Medications Ordered Filled Start Stop Current Ordering Indication Dosage Frequency Signature Comments Components Source Medication Medication Date Date Medication? Clinician (SIG) Name Name aspirin 81 2020- Yes 81mg QD Take [address] [facility] MG EC 5-16 05-16 tablet (81 [facility] - tablet 00:00: 23:59 mg total) Medic al 00 :00 by mouth Center daily. valACYclovi Yes 500mg QD Take [address] [facility] r (VALTREX) 4-10 tablet [facility] - 500 MG 00:00: (500 mg Medical tablet 00 total) by Center mouth daily. warfarin 2019- No 7.5mg QD Take 1 [facility] (COUMADIN, 4-10 05-15 tablet [facility] - JANTOVEN) 00:00: 00:00 (7.5 mg Medi hamlet 7.5 MG 00 :00 total) by Center tablet mouth daily. aspirin 81 2020- No 81mg QD Take [address] MG EC -05 03-09 by mouth [facility] - tablet 11:27: 00:00 daily. Medical 38 :00 Center clopidogreL 2020- No 75mg QD Take [address] [facility] (PLAVIX) 75 12-06 tablet (75 L ukes - mg tablet 00:00: 23:59 mg total) Me dical 00 :00 by mouth Center daily. atorvastati 2019- No 40mg QD Take [address] [facility] n (LIPITOR) 12-06- tablet (40 L ukes - 40 MG 00:00: 23:59 mg total) Medica l tablet 00 :00 by mouth Center nightly. albuterol 2019-2019- No 1{puff} Inhale [address] HFA 12-06 puff by [facility] - (VENTOLIN 00:00: 23:59 mouth via Me dical HFA) 90 00 :00 inhaler Center mcg/actuati every 6 on inhaler (six) hours as needed for Wheezing for up to 30 days. traZODone 2019- No 50mg Take 1 [facility] (DESYREL) 12-06 tablet (50 Stephanie es - 50 MG 00:00: 23:59 mg total) Medica l tablet 00 :00 by mouth Center every night as needed for Sleep for up to 30 days. clopidogreL 2019- No 75mg QD Take [address] [facility] (PLAVIX) 75 30 -09 tablet (75 L ukes - mg tablet 00:00: 00:00 mg total) Me dical 00 :00 by mouth Center daily. diphenhydrA 2020- No Apply [facility] MINE-zinc 11-25 03-29 topically Luke [facility] - acetate 00:00: 23:59 3 (three) Medi hamlet (BENADRYL 00 :00 times Center EXTRA daily as STRENGTH) needed for 2-0.1 % Itching. cream mometasone- 2019-0 Yes 2{puff} Q.5D Inhale [address] formoterol 3-19 puffs by [facility] - (DULERA) 10:36: mouth via Medi hamlet 200-5 24 inhaler 2 Center mcg/actuati (two) on inhaler times daily. ascorbic 2019-0 Yes 1000mg QD Take 1,[address] acid, 3-19 mg by [facility] - vitamin C, 10:33: mouth Medica l (VITAMIN C) 53 daily . Cente r 1000 MG tablet nicotine 2019-2019- No 1{patch Q24H Place [address] (NICODERM 3-07 04-09 } patch onto Stephanie es - CQ) 21 00:00: 00:00 the skin Medica l mg/24 hr 00 :00 daily for Center patch 30 days. albuterol No 1{puff} Inhale [address] [facility] HFA 11-03 puff by [facility] - (VENTOLIN 00:00: 00:00 mouth via Me dical HFA) 90 00 :00 inhaler Center mcg/actuati every 6 on inhaler (six) hours as needed for Wheezing for up to 30 days. traZODone No 50mg Take 1 [facility] (DESYREL) 11-03 tablet (50 Stephanie es - 50 MG 00:00: 00:00 mg total) Medica l tablet 00 :00 by mouth Center every night as needed for Sleep for up to 30 days. furosemide No 20mg Take [address] [facility] (LASIX) 20 11-03 tablet (20 Kristi kes - MG tablet 00:00: 00:00 mg total) Me dical 00 :00 by mouth Center daily as needed for up to 30 days. metFORMIN Yes 500mg Take [address] [facility] [facility] (GLUCOPHAGE 8-18 mg by [facility] - ) 500 MG 00:00: mouth 2 Medica l tablet 00 (two) Center times daily with breakfast and dinner . Vital Signs Vital Name Observation Time Observation Value Comments Source Systolic blood 2020-01-12 13:00:00 129 mm[Hg] [facility] Diastolic blood 2020-01-12 13:00:00 85 mm[Hg] [facility] Heart rate 2020-01-12 13:00:00 65 /min [facility] Respiratory rate 2020-01-12 13:00:00 17 /min [facility] Oxygen saturation in 2020-01-12 13:00:00 99 /min [facility] Arterial blood by Medical Ce nter Pulse oximetry Body temperature 2020-01-12 12:00:00 36.78 Gracia [facility] Body weight Measured 2020-01-12 05:00:00 56 kg [facility] BMI 2020-01-12 05:00:00 19.93 kg/m2 [facility] Body height 2020-01-11 06:16:00 167.6 cm [facility] Procedures Procedure Date / Time Performing Clinician Source Performed RHYTHM STRIP - SCAN 2020-01-15 13:50:19 Provider, [facility] CARDIAC CATH REPORT - SCAN 2020-01-15 13:50:17 Provider, [facility] 2D ECHO W/ DOPPLER 2020-01-12 09:23:02 Helio Buitrago [facility] (CW/PW/COLOR) [facility] BASIC METABOLIC PANEL (7) 2020-01-12 04:56:00 [facility] CBC (HEMOGRAM ONLY) 2020-01-12 04:55:00 [facility] XR CHEST 1 VIEW 2020-01-12 03:27:00 [facility] PORTABLE/BEDSIDE Medical Center POCT-ACT 2020-01-11 10:51:00 Helio Buitrago [facility] COLOR-FLOW MAPPING 2020-01-11 10:00:20 Helio Buitrago [facility] CONT WAVE PULSED DOPPLER 2020-01-11 10:00:[address] [facility] TRANSCATHETER CLOSURE OF 2020-01-11 09:41:[address] [facility] ASD [facility] TRANSESOPHAGEAL ECHO 2020-01-11 09:12:59 Helio Buitrago [facility] ECG 12-LEAD 2020-01-11 07:34:20 Unknown, Hl7 Doctor [facility] TRANSFUSION SERVICE REPORT 2020-01-09 17:53:54 Provider, [facility] SARS-COV2/RT-PCR ([facility] & 2020-01-08 10:31:00 Helio Buitrago [facility] - REF LABS) [facility] BASIC METABOLIC PANEL (7) 2020-01-08 09:29:00 Helio Buitrago [facility] CBC (HEMOGRAM ONLY) 2020-01-08 09:29:00 Buitrago [facility] PROTHROMBIN TIME/INR 2020-01-08 09:29:00 [facility] TYPE AND SCREEN, AUTOMATED 2020-01-08 09:29:00 Minna [facility] RHYTHM STRIP - SCAN 2019-12-27 12:20:32 Provider, [facility] RHYTHM STRIP - SCAN 2019-12-08 12:40:21 Provider, [facility] POCT-GLUCOSE METER 2019-12-07 08:02:00 Tito [facility] CBC (HEMOGRAM ONLY) 2019-12-07 03:47:00 Briseida Vo [facility] PROTHROMBIN TIME/INR 2019-12-07 03:47:00 Bjorn Klein [facility] APTT 2019-12-07 03:47:00 Tito [facility] POCT-GLUCOSE METER 2019-12-06 21:10:00 Tito [facility] APTT 2019-12-06 20:30:00 Tito [facility] POCT-GLUCOSE METER 2019-12-06 17:07:00 Tito [facility] APTT 2019-12-06 13:08:00 Briseida Vo [facility] POCT-GLUCOSE METER 2019-12-06 11:33:00 Tania Francis [facility] POCT-GLUCOSE METER 2019-12-06 08:10:00 Tito [place] Deidra [facility] BASIC METABOLIC PANEL (7) 2019-12-06 05:47:00 Minna Helio [facility] CBC (HEMOGRAM ONLY) 2019-12-06 05:47:00 Briseida Vo [facility] PROTHROMBIN TIME/INR 2019-12-06 05:47:00 Bjorn Klein [facility] APTT 2019-12-06 05:47:00 Tito, [facility] APTT 2019-12-05 23:09:00 Tito, [facility] POCT-GLUCOSE METER 2019-12-05 21:20[facility] - 2019-12-05 21:11:06 Compa Egan [facility] APTT 2019-12-05 20:56:00 Tito [facility] POCT-GLUCOSE METER 2019-12-05 16:22:00 Tito [facility] POCT-GLUCOSE METER 2019-12-05 13:13:00 Tito [facility] APTT 2019-12-05 12:35:00 Briseida Vo [facility] TRANSESOPHAGEAL ECHO 2019-12-05 09:26:16 Elizabeth Buitragoherme [facility] POCT-GLUCOSE METER 2019-12-05 07:31:00 Tito [facility] CBC (HEMOGRAM ONLY) 2019-12-05 04:33:00 Briseida Vo [facility] PROTHROMBIN TIME/INR 2019-12-05 04:33:00 Bjorn Klein [facility] APTT 2019-12-05 04:33:00 Briseida Vo [facility] POCT-GLUCOSE METER 2019-12-04 21:01:00 Tito [facility] POCT-GLUCOSE METER 2019-12-04 16:46:00 Tito [facility] COLOR-FLOW MAPPING 2019-12-04 14:54:50 Minna [facility] CONT WAVE PULSED DOPPLER 2019-12-04 14:54:[address] [facility] APTT 2019-12-04 14:34:00 Briseida Vo [facility] POCT-GLUCOSE METER 2019-12-04 11:33:00 Tania Francis [facility] BASIC METABOLIC PANEL (7) 2019-12-04 07:46:00 Tania Francis [facility] POCT-GLUCOSE METER 2019-12-04 07:36:00 Tania Francis [facility] PT/APTT 2019-12-04 06:13:00 [facility] 2019-12-04 06:13:00 Briseida Vo [facility] PROTHROMBIN TIME/INR 2019-12-04 06:13:00 Bjorn Klein [facility] PT/APTT 2019-12-03 23:33:00 Nicolasa [facility] POCT-GLUCOSE METER 2019-12-03 21:02:00 Nicolasa [facility] POCT-GLUCOSE METER 2019-12-03 16:55:00 Nicolasa, [facility] PT/APTT 2019-12-03 16:02:00 Nicolasa [facility] POCT-GLUCOSE METER 2019-12-03 11:26:00 Nicolasa [facility] POCT-GLUCOSE METER 2019-12-03 07:40:00 Nicolasa [facility] PT/APTT 2019-12-03 05:39:00 Nicolasa [facility] CBC (HEMOGRAM ONLY) 2019-12-03 05:39:00 Briseida Vo [facility] PROTHROMBIN TIME/INR 2019-12-03 05:39:00 Bjorn Klein [facility] POCT-GLUCOSE METER 2019-12-02 20:37:00 Nicolasa [facility] POCT-GLUCOSE METER 2019-12-02 16:23:00 Nicolasa [facility] POCT-GLUCOSE METER 2019-12-02 12:04:00 Nicolasa [facility] POCT-GLUCOSE METER 2019-12-02 09:15:00 Nicolasa [facility] POCT-GLUCOSE METER 2019-12-02 07:40:00 Nicolasa [facility] CBC (HEMOGRAM ONLY) 2019-12-02 05:16:00 Briseida Vo [facility] D-DIMER 2019-12-02 05:15:00 Manfred Parra [facility] PROTHROMBIN TIME/INR 2019-12-02 05:15:00 Bjorn Klein [facility] PT/APTT 2019-12-02 05:15:00 Nicolasa [facility] APTT 2019-12-01 23:35:00 Briseida Vo [facility] PERIPHERAL VASCULAR REPORT 2019-12-01 21:20:08 Compa Egan [facility] POCT-GLUCOSE METER 2019-12-01 20:32:00 Nicolasa [facility] APTT 2019-12-01 17:24:00 Briseida Vo [facility] POCT-GLUCOSE METER 2019-12-01 17:06:00 Nicolasa [facility] POCT-GLUCOSE METER 2019-12-01 12:39:00 [facility] ([facility] ONLY[facility] 2019-12-01 10:03:00 Briseida Vo [facility] APTT 2019-12-01 10:03:00 Nicolasa [facility] VENOUS DOPPLER LEGS 2019-12-01 09:59:00 Manfred Parra I [facility] POCT-GLUCOSE METER 2019-12-01 07:46:00 Nicolasa [facility] APTT 2019-12-01 00:25:00 Nicolasa [facility] PT/APTT 2019-11-30 23:21:00 Nicolasa [facility] ECHOCARDIOGRAM REPORT - 2019-11-30 21:10:41 Jignesh, Compa SANTORO I [facility] POCT-GLUCOSE METER 2019-11-30 21:03:00 Nicolasa [facility] POCT-GLUCOSE METER 2019-11-30 17:47:00 Nicolasa [facility] 2D ECHO W/ DOPPLER 2019-11-30 16:13:17 Briseida Vo [facility] (CW/PW/COLOR) [facility] APTT 2019-11-30 15:29:00 Briseida Vo [facility] POCT-GLUCOSE METER 2019-11-30 12:30:00 Nicolasa [facility] POCT-GLUCOSE METER 2019-11-30 08:00:00 Franco Cartagena [facility] APTT 2019-11-30 03:40:00 Franco Cartagena [facility] CBC (HEMOGRAM ONLY) 2019-11-30 03:40:00 Briseida Vo [facility] MRA HEAD WITHOUT IV 2019-11-29 23:06:[address] [facility] MRA NECK WITHOUT IV 2019-11-29 23:06:[address] [facility] MR BRAIN WITHOUT IV 2019-11-29 23:06:[address] [facility] PLATELET COUNT 2019-11-29 21:09:00 Briseida Vo [facility] LIPID PANEL 2019-11-29 21:09:00 Briseida Vo [facility] HEMOGLOBIN A1C 2019-11-29 21:09:00 Briseida Vo [facility] APTT 2019-11-29 21:08:00 Briseida Vo [facility] TSH/FREE T4 IF INDICATED 2019-11-29 21:08:00 Briseida Vo [facility] VITAMIN B12 AND FOLATE 2019-11-29 21:08:00 [facility] POCT-GLUCOSE METER 2019-11-29 19:40:00 Franco Cartagena [facility] RHYTHM STRIP - SCAN 2019-11-29 11:52:24 Provider, [facility] RHYTHM STRIP - SCAN 2019-11-27 13:31:11 Provider, [facility] VASCULAR DIAGRAM -SCAN 2019-11-27 13:31:02 Provider, [facility] POCT-GLUCOSE METER 2019-11-26 12:01:00 Shantelle [facility] POCT-GLUCOSE METER 2019-11-26 08:28:00 [facility] BASIC METABOLIC PANEL (7) 2019-11-26 04:39:00 Amos Tavares [facility] MAGNESIUM 2019-11-26 04:39:00 Amos Tavares [facility] PHOSPHORUS 2019-11-26 04:39:00 Amos Tavares [facility] PROTHROMBIN TIME/INR 2019-11-26 04:39:00 Lennox [facility] APTT 2019-11-26 04:39:00 Lennox [facility] CBC (HEMOGRAM ONLY) 2019-11-26 04:39:00 Stephany-Do [facility] POCT-GLUCOSE METER 2019-11-25 21:27:00 [facility] 2019-11-25 18:16:00 [facility] POCT-GLUCOSE METER 2019-11-25 11:50:00 [facility] POCT-GLUCOSE METER 2019-11-25 07:59:00 [facility] BASIC METABOLIC PANEL (7) 2019-11-25 04:16:00 Amos Tavares [facility] MAGNESIUM 2019-11-25 04:16:00 Amos Tavares [facility] PHOSPHORUS 2019-11-25 04:16:00 [facility]/INR 2019-11-25 04:16:00 [facility] APTT 2019-11-25 04:16:00 [facility] CBC (HEMOGRAM ONLY) 2019-11-25 04:16:00 [facility] POCT-GLUCOSE METER 2019-11-24 21:15:00 [facility] POCT-GLUCOSE METER 2019-11-24 12:15:[address] [facility] CT BRAIN WITHOUT IV 2019-11-24 10:45:00 [facility] POCT-GLUCOSE METER 2019-11-24 07:58:00 [facility] BASIC METABOLIC PANEL (7) 2019-11-24 04:39:00 Amos Tavares [facility] MAGNESIUM 2019-11-24 04:39:00 Amos Tavares [facility] PHOSPHORUS 2019-11-24 04:39:00 Amos Tavares [facility] PROTHROMBIN TIME/INR 2019-11-24 04:39:00 Hudefi [facility] APTT 2019-11-24 04:39:00 [facility] CBC (HEMOGRAM ONLY) 2019-11-24 04:39:00 Stephany-Debbie Do [facility] POCT-GLUCOSE METER 2019-11-23 21:27:00 [facility] ECHOCARDIOGRAM REPORT - 2019-11-23 21:11:05 Provider, Default Blake [facility] POCT-GLUCOSE METER 2019-11-23 17:19:00 [facility] POCT-GLUCOSE METER 2019-11-23 13:32:00 [facility] ECG 12-LEAD 2019-11-23 11:50:37 Unknown, Hl7 Doctor [facility] 2D ECHO W/ DOPPLER 2019-11-23 08:55:[address] [facility] (CW/PW/COLOR) [facility] BASIC METABOLIC PANEL (7) 2019-11-23 03:23:00 Amos Tavares [facility] MAGNESIUM 2019-11-23 03:23:00 Amos Tavares [facility] PHOSPHORUS 2019-11-23 03:23:00 Amos Tavares [facility] PROTHROMBIN TIME/INR 2019-11-23 03:23:00 [facility] APTT 2019-11-23 03:23:00 [facility] CBC W/PLT COUNT & AUTO 2019-11-23 03:23:00 [facility] TRANSFUSION SERVICE REPORT 2019-11-22 17:50:20 Provider, Default [facility] XR CHEST 1 VIEW 2019-11-22 11:09:00 Wally Bruno [facility] PORTABLE/BEDSIDE Medical Center BASIC METABOLIC PANEL (7) 2019-11-22 10:45:00 Wally Bruno [facility] MAGNESIUM 2019-11-22 10:45:00 Kiana, Wally [facility] PHOSPHORUS 2019-11-22 10:45:00 Kiana, Wally [facility] CALCIUM, IONIZED 2019-11-22 10:45:00 Kiana, Wally [place] [facility] PROTHROMBIN TIME/INR 2019-11-22 10:45:00 Kiana, Wally Zurita [facility] APTT 2019-11-22 10:45:00 Kiana, Wally [facility] BLOOD GAS, ARTERIAL 2019-11-22 10:45:00 Kiana, Wally Zur[place] [facility] SODIUM NA-STAT LAB 2019-11-22 10:45:00 Kiana, Wally [facility] POTASSIUM-STAT LAB 2019-11-22 10:45:00 Kiana, Wally [facility] GLUCOSE-STAT LAB 2019-11-22 10:45:00 Kiana, Wally Zur[place] [facility] HGB/HCT (H&H) - STAT LAB 2019-11-22 10:45:00 Kiana, Wally [place] [facility] CBC W/PLT COUNT & AUTO 2019-11-22 10:45:00 Kiana, Wally [facility] POCT-ACT 2019-11-22 09:46:00 [facility] POCT-ACT 2019-11-22 09:26:00 Shantelle [facility] REPLACEMENT,TRANSCATHETER 2019-11-22 08:00:00 Jonathan Agiular I [facility] AORTIC VALVE [facility] (TAVR/ANN MARIE) POCT-GLUCOSE METER 2019-11-22 05:02:00 Shantelle [facility] BASIC METABOLIC PANEL (7) 2019-11-22 04:54:00 Amos Tavares [facility] MAGNESIUM 2019-11-22 04:54:00 Amos Tavares [facility] PHOSPHORUS 2019-11-22 04:54:00 Amos Tavares [facility] PROTHROMBIN TIME/INR 2019-11-22 04:54:00 Cirilo [facility] APTT 2019-11-22 04:54:00 [facility] CBC W/PLT COUNT & AUTO 2019-11-22 04:54:00 [facility] POCT-GLUCOSE METER 2019-11-21 21:07:00 [facility]UCOSE METER 2019-11-21 18:26:00 [facility] RBC 2019-11-21 17:44:[facility]SE [facility]ER 2019-11-21 11:55:00 [facility] POCT-GLUCOSE METER 2019-11-21 07:49:00 [facility] BASIC METABOLIC PANEL (7) 2019-11-21 05:08:00 Amos Tavares [facility] MAGNESIUM 2019-11-21 05:08:00 Amos Tavares [facility] PHOSPHORUS 2019-11-21 05:08:00 Amos Tavares [facility] POCT-GLUCOSE METER 2019-11-20 21:06:00 Shantelle [facility] POCT-GLUCOSE METER 2019-11-20 17:09:00 [facility]UCOSE METER 2019-11-20 12:00:00 [facility] POCT-GLUCOSE METER 2019-11-20 07:51:00 [facility] BASIC METABOLIC PANEL (7) 2019-11-20 05:04:00 Amos Tavares [facility] MAGNESIUM 2019-11-20 05:04:00 Amos Tavares [facility] PHOSPHORUS 2019-11-20 05:04:00 Amos Tavares [facility] POCT-GLUCOSE METER 2019-11-19 21:15:00 Shantelle [facility] POCT-GLUCOSE METER 2019-11-19 17:39:00 Shantelle [facility] POCT-GLUCOSE METER 2019-11-19 12:18:00 Cosvaldemar [facility] POCT-GLUCOSE METER 2019-11-19 07:30:00 Shantelle [facility] BASIC METABOLIC PANEL (7) 2019-11-19 05:19:00 Amos Tavares [facility] MAGNESIUM 2019-11-19 05:19:00 Amos Tavares [facility] PHOSPHORUS 2019-11-19 05:19:00 Amos Tavares [facility] POCT-GLUCOSE METER 2019-11-18 21:22:00 Shantelle [facility] TRANSFUSION SERVICE REPORT 2019-11-18 17:50:44 Jignesh [facility] POCT-GLUCOSE METER 2019-11-18 17:06:00 [facility]SE MET[facility] 2019-11-18 12:10:00 [facility] POCT-GLUCOSE METER 2019-11-18 07:41:00 Shantelle [facility] BASIC METABOLIC PANEL (7) 2019-11-18 05:11:00 Amos Tavares [facility] MAGNESIUM 2019-11-18 05:11:00 Amos Tavares [facility] PHOSPHORUS 2019-11-18 05:11:00 Amos Tavares [facility] PT/APTT 2019-11-18 05:11:00 Amos Tavares [facility] PROTHROMBIN TIME/INR 2019-11-18 05:11:00 BlairAmos pierce [facility] CBC (HEMOGRAM ONLY) 2019-11-18 05:11:00 BlairkariAmos Polo [facility] POCT-GLUCOSE METER 2019-11-17 21:06:00 [facility]SFUSION SERVICE REPORT 2019-11-17 17:51:57 Provider, [facility] - - SCAN [facility] CARDIAC CATH REPORT - SCAN 2019-11-17 17:20:03 Provider, [facility] POCT-GLUCOSE METER 2019-11-17 11:26:00 Shantelle [facility] PREPARE RBC 2019-11-17 03:53:00 [facility] B-TYPE NATRIURETIC FACTOR 2019-11-16 10:32:00 Raven [facility] (BNP) [facility] PROTHROMBIN TIME/INR 2019-11-16 10:32:00 Raven [facility] COMPREHENSIVE METABOLIC 2019-11-16 10:32:00 Raven [facility] TYPE AND SCREEN, AUTOMATED 2019-11-16 10:32:00 Raven [facility] CBC W/PLT COUNT & AUTO 2019-11-16 10:32:00 Raven [facility] VASCULAR DIAGRAM -SCAN 2019-11-15 16:10:52 Provider, [facility] RHYTHM STRIP - SCAN 2019-11-06 11:52:53 Provider, [facility] REPORT OF PROCEDURE - 2019-11-06 11:52:51 Provider, [facility] ENDOSCOPY SCAN [facility] VASCULAR DIAGRAM -SCAN 2019-11-06 11:52:47 Provider, [facility] CARDIAC CATH REPORT - SCAN 2019-11-06 11:52:39 Provider, [facility] CARDIAC CATH REPORT - SCAN 2019-11-06 11:52:37 Provider, [facility] POCT-GLUCOSE METER 2019-11-04 07:40:00 Adio, Jude Ansari [facility] POCT-GLUCOSE METER 2019-11-03 22:17:00 Adio, Jude Ansari [facility] POCT-GLUCOSE METER 2019-11-03 18:18:00 Adio, Jude Ansari [facility] NM BONE SCAN WHOLE BODY 2019-11-03 15:57:00 Adio, Jude Ansari [facility] POCT-GLUCOSE METER 2019-11-03 11:20:00 Adio, Jude Ansari [facility] POCT-GLUCOSE METER 2019-11-03 07:51:00 Adio, Jude Ansari [facility] COMPREHENSIVE METABOLIC 2019-11-03 03:56:00 Farrah Bhakta [facility] MAGNESIUM 2019-11-03 03:56:00 Farrah Bhakta [facility] PHOSPHORUS 2019-11-03 03:56:00 Farrah Bhakta [facility] CBC W/PLT COUNT & AUTO 2019-11-03 03:56:00 Farrah Bhakta [facility] POCT-GLUCOSE METER 2019-11-02 21:55:00 Jude Overton [facility] PERIPHERAL VASCULAR REPORT 2019-11-02 21:11:20 Provider, [facility] CTA ABDOMEN & PELVIS 2019-11-02 19:17:00 Minna Helio [facility] CTA CHEST 2019-11-02 19:17:00 Minna [facility] TRANSFUSION SERVICE REPORT 2019-11-02 17:52:21 Provider, [facility] POCT-GLUCOSE METER 2019-11-02 17:30:00 Jude Overton [facility] PULMONARY FUNCTION - SCAN 2019-11-02 15:02:13 Provider, [facility] POCT-GLUCOSE METER 2019-11-02 13:16:00 Jude Overton [facility] POCT-GLUCOSE METER 2019-11-02 13:06:00 Brooklynn, Jude Ansari [facility] POCT-GLUCOSE METER 2019-11-02 10:08:00 Brooklynn, Jude Ansari [facility] CAROTID DOPPLER BILATERAL 2019-11-02 09:27:00 Helio Buitrago [facility] COMPREHENSIVE METABOLIC 2019-11-02 04:38:00 Farrah Bhakta [facility] MAGNESIUM 2019-11-02 04:38:00 Farrah Bhakta [facility] PHOSPHORUS 2019-11-02 04:38:00 Farrah Bhakta [facility] CBC W/PLT COUNT & AUTO 2019-11-02 04:38:00 Farrah Bhakta [facility] POCT-GLUCOSE METER 2019-11-01 22:18:00 Jude Overton [facility] ECHOCARDIOGRAM REPORT - 2019-11-01 21:20:03 Provider, [facility] I [facility] SPIROMETRY 2019-11-01 17:02:00 Helio Buitrago [facility] 2D ECHO W/ DOPPLER 2019-11-01 13:22:01 [facility] POCT-GLUCOSE METER 2019-11-01 13:20:00 Jude Overton [facility] R & L CATH / CORONARY 2019-11-01 07:35:00 Helio Buitrago [facility] - ANGIOS (+/- LV) [facility] POCT-GLUCOSE METER 2019-11-01 06:25:00 Jude Overton [facility] ABORH, MANUAL 2019-11-01 05:53:00 Sangeetha Gunderson [facility] COMPREHENSIVE METABOLIC 2019-11-01 04:44:00 Farrah Bhakta Kyerewaa [facility] MAGNESIUM 2019-11-01 04:44:00 [facility] 2019-11-01 04:44:00 [facility] PROTHROMBIN TIME/INR 2019-11-01 04:44:00 Minna [facility] TYPE AND SCREEN, AUTOMATED 2019-11-01 04:44:00 Minna [facility] CBC W/PLT COUNT & AUTO 2019-11-01 04:44:00 Farrah Bhakta [facility] POCT-GLUCOSE METER 2019-11-01 00:02:00 Adguillermo, [facility] POCT-GLUCOSE METER 2019-10-31 22:01:00 Adio, [facility] POCT-GLUCOSE METER 2019-10-31 17:34:00 Adio, [facility] POCT-GLUCOSE METER 2019-10-31 07:52:00 Adio, [facility] POCT-GLUCOSE METER 2019-10-31 06:30:00 [facility] VENOUS DOPPLER LEGS 2019-10-30 18:00:00 Daniel Gonzalez [facility] CHEST PE TEST DESIGN 2019-10-30 17:29:00 Daniel Gonzalez [facility] BASIC METABOLIC PANEL (7) 2019-10-30 16:04:00 Bjorn Umana [facility] MAGNESIUM 2019-10-30 16:04:00 Dong [facility] B-TYPE NATRIURETIC FACTOR 2019-10-30 16:04:00 Dong [facility] (BNP) [facility] TROPONIN I 2019-10-30 16:04:00 Dong [facility] PT/APTT 2019-10-30 16:04:00 DongBjorn [facility] CBC W/PLT COUNT & AUTO 2019-10-30 16:04:[address] [facility] [facility] XR CHEST 1 VIEW 2019-10-30 15:16:[address] [facility] - PORTABLE[facility]BEDSIDE Medical Center ECG 12-LEAD 2019-10-30 13:25:58 Unknown, Hl7 Doctor [facility] Plan of Care Planned Activity Planned Date Details Comments Source Future Scheduled 2020-05-[address] [facility] Test 00:00:00 measurement Medical Center (procedure) [code = 02334460] Future Scheduled 2020-04-30 INFLUENZA VACCINE (#1) [facility] 00:[facility]00 [code = INFLUENZA Medical Ce nter VACCINE (#1)] Future Scheduled 2019-01-[address] [facility] - Test 00:00:00 WELLNESS (YEAR 2 or Medical Center FIRST YEAR if no IPPE) [code = MEDICARE ANNUAL WELLNESS (YEAR 2 or FIRST YEAR if no IPPE)] Future Scheduled [address] [facility] Test 00:00:00 [facility] cervix (procedure) [code = 444968491] Future Scheduled [address] DIABETIC EYE EXAM [facility] - Test 00:00:00 [code = DIABETIC EYE Medical Center EXAM] Future Scheduled [address] [facility] - Test 00:00:00 examination Medical Center (regime/therapy) [code = 603973783] Future Scheduled 1967 Urine screening for [facility] - Test 00:00:00 protein (procedure) Medical Center [code = 751204105] Future Scheduled [address] [facility] - Test 00:00:00 2-64 YEARS AT RISK (1 Medica l Center of 1 - PPSV23) [code = PNEUMOCOCCAL VACCINE 2-64 YEARS AT RISK (1 of 1 - PPSV23)] Future Scheduled [address] [facility] Test 00:00:00 [facility] breast (procedure) [code = 489042568] Future Scheduled [address] [facility] Test 00:00:00 [facility] colon (procedure) [code = 229067815] Results Test Test Test Results Result Source Description Time Comments Comments 2D Echo 2019-12- Ejection FractionSLEH ECHO [facility]/Doppler(CW/PW 15 HEART[facility] MKCKESSON [facility] - /Color) 11:03:32 CPACSInterface, External Ris Medical In - 01/12/2020 11:03 AM Center CDTTransthoracic Echocardiography Report (TTE) Demographics Patient Name QUIANA VALLADARES Date of Study 01/12/2020 KARINA Gender Female Visit Number [id number] Race Room Number 6102 Number Date of 1955 Referring Physician Age 64 year(s) Swager Operator Viola Hargrove Interpreting Donato Beth MD Physician Procedure Type of Study TTE procedure:2DECHO W DOPPLER(CW/PW/COLOR) (STAT) Indications:Valvular Disease with change in clinical symptoms and Patentforamen ovale (PFO).Clinical HistoryHGB 11.1HCT 34.3 %Acid RefluxAsthmaColon CancerDiabetes IIHypertensionTAVRContrast Medium: Definity. Amount - 2 mlHeight: 66 inches Weight: 56.7 kg (125 lbs) BSA: 1.64 m^2 BMI: 20.18 kg/m^2HR: 72 bpm BP: 121/65 mmHg Summary 1. [...] Previous Study S/p PFO closure device. Signature ------ ------ Findings Technical Quality: Technically adequate exam. Left Ventricle The left ventricle is chamber size (by vol index) is mildly enlarged (female - LVED 62-70ml/m2). Normal LV wall thickness. All of the LV segments have normal contractility . Estimated LVEF by qualitative assessment is normal (55%) . Grade 1 diastolic dysfunction (impaired relaxation and low-normal LA pressure). Left Atrium LA size is normal . Right Ventricle Normal right ventricle structure and function. Right Atrium Normal right atrium. Atrial Septum An PFO septal occluder device appears normally deployed with no evidence of shunting on color Doppler. Aortic Valve A percutaneous (TAVR) biologic AoV prosthesis is visualized . The prosthetic AoV appears well-seated with normal function by Doppler. Prosthetic AoV regurgitaton is mild . Prosthetic AR locations(s) are paravalvular at approximately 5 o''clock. . AoV dimensionless obstructive index (DOI)) is 0.5. Peak Grad;16 mmHg,Mean Grad; 8 mmHg. Mitral Valve Mild MV leaflet thickening. Trace mitral regurgitation. Tricuspid Valve A trace of tricuspid regurgitation. Unable to estimate peak systolic PA pressure; inadequate TR velocity signal. Pulmonic Valve Normal PV structure and function by limited views and Doppler. Aorta Aortic root size (SInus of Valsalva diameter) is normal . Pericardium No evidence of pericardial effusion. IVC/SVC/PA/PV/Pleural The estimated RA pressure by [...] Mitral Valve MV Peak E-Wave: 0.69 m/s MV Peak A-Wave: 1.06 m/s E/A Ratio: 0.65 Peak Gradient: 1.92 mmHg Deceleration Time: 195.9 msec MV Michael. Peak: Tissue Doppler E' Lateral Velocity: 0.06 m/s E/E': 11.01 Aortic Valve Peak Velocity: 2.07 m/s Mean Velocity: 1.51 m/s Peak Gradient: 17.06 mmHg Mean Gradient: 9.79 mmHg AV Area (continuity): 1.6 cm^2 AV VTI: 44.88 cm AV DVI: 0.54 LVOT Peak Velocity: 0.77 m/s Peak Gradient: 2.34 mmHg Mean Velocity: 0.58 m/s Mean Gradient: 1.45 mmHg LVOT Diameter: 1.95 cm LVOT VTI: 24.09 cm LVOT Area: 2.99 cm^2 LVOT SV:71.91 ml LVOT CO: 5.18 l/min LVOT CI: 3.16 l/min/m^2 Basic metabolic panel 2020-01-12 05:44:00 Test Item Value Reference Range Interpretation Comme nts Sodium (test code = 136 meq/L 437-809 0873-2) Potassium (test code = 3.7 meq/L 3.5-5.1 Speci men slightly 2823-3) hemolyzed Chloride (test code = 106 meq/L 98-107 2075-0) CO2 (test code = 2027-9) 22 meq/L 22-29 BUN (test code = 3094-0) 9 mg/dL 7-21 Creatinine (test code = 0.67 mg/dL 0.57-1.25 Spec imen slightly 2160-0) hemolyzed Glucose (test code = 146 mg/dL 70-105 H 2345-7) Calcium (test code = 8.2 mg/dL 8.4-10.2 L 31346-7) EGFR (test code = 67195-1) 89 mL/min/1.73 sq m ESTIMATED GFR IS NOT ACCURATE CREATININE GARY KENYETTA IN PREDICTING GLOMERULAR FILT RATION RATE. ESTIMATED GFR IS NOT APPLICAB LE FOR DIALYSIS PATIEN TS. JANETTE (test code = JANETET) Fur Finisher ID - PIAYA L Lab Interpretation (test Abnormal code = 19443-8) [facility] [id number] 05:44:00 Test Item Value Reference Range Interpretation Comments SODIUM (BEAKER) 136 meq/L 136-145 (test code = 381) POTASSIUM (BEAKER) 3.7 meq/L 3.5-5.1 Specimen slightly (test code = 379) hemolyzed CHLORIDE (BEAKER) 106 meq/L 98-107 (test code = 382) CO2 (BEAKER) (test 22 meq/L 22-29 code = 355) BLOOD UREA NITROGEN 9 mg/dL 7-21 (BEAKER) (test code = 354) CREATININE (BEAKER) 0.67 mg/dL 0.57-1.25 Specimen slightly (test code = 358) hemolyzed GLUCOSE RANDOM 146 mg/dL 70-105 H (BEAKER) (test code = 652) CALCIUM (BEAKER) 8.2 mg/dL 8.4-10.2 L (test code = 697) EGFR (BEAKER) (test 89 mL/min/1.73 ESTIMA AMANDA GFR IS code = 1092) sq m NOT ACCURATE CREATININE CLEARANCE IN PREDICTING GLOMERULAR FILTRATION RATE . ESTIMATED GFR I S NOT APPLICABLE FOR DIALYSIS PATIEN TS. Fur Finisher ID - PIAYA LCBC (Hemogram only)2020-01-12 05:09:00 Test Item Value Reference Range Interpretation Comments WBC (test code = 6690-2) 4.2 3.5- 10.5 K/L RBC (test code = 789-8) 3.45 3.93- 5.22 M/L L MCHC (test code = 786-4) 32.4 32.2- 35.5 GM/DL L Hematocrit (test code = 4544-3) 34.3 % 34.1-44.9 MCV (test code = 787-2) 99.4 fL 79.4-94.8 H MCH (test code = 785-6) 32.2 pg 25.6-32.2 RDW (test code = 788-0) 14.6 % 11.7-14.4 H Platelets (test code = 777-3) 186 150- 450 K/CU MM MPV (test code = 01814-8) 9.1 fL 9.4-12.3 L nRBC (test code = 413) 0 0- 0 /100 WBC Lab Interpretation (test code = Abnormal 63117-8) [facility] (HEMOGRAM ONLY)2020-01-12 05:09:00 Test Item Value Reference Range Interpretation Comments WHITE BLOOD CELL COUNT (BEAKER) 4.2 K/ L 3.5-10.5 (test code = 775) RED BLOOD CELL COUNT (BEAKER) 3.45 M/ L 3.93-5.22 L (test code = 761) HEMOGLOBIN (BEAKER) (test code = 11.1 GM/DL 11.2-15.7 L 410) HEMATOCRIT (BEAKER) (test code = 34.3 % 34.1-44.9 411) MEAN CORPUSCULAR VOLUME (BEAKER) 99.4 fL 79.4-94.8 H (test code = 753) MEAN CORPUSCULAR HEMOGLOBIN 32.2 pg 25.6-32.2 (BEAKER) (test code = 751) MEAN CORPUSCULAR HEMOGLOBIN CONC 32.4 GM/DL 32.2-35.5 (BEAKER) (test code = 752) RED CELL DISTRIBUTION WIDTH 14.6 % 11.7-14.4 H (BEAKER) (test code = 412) PLATELET COUNT (BEAKER) (test 186 K/CU MM 150-450 code = 756) MEAN PLATELET VOLUME (BEAKER) 9.1 fL 9.4-12.3 L (test code = 754) NUCLEATED RED BLOOD CELLS 0 /100 WBC 0-0 (BEAKER) (test code = 413) RAD, CHEST, 1 VIEW, NON [id number] 04:42:00Reason for exam:->s/p PFO closure, SOBShould this be performed at the bedside?->YesFINAL REPORT RAD, CHEST, 1 VIEW, NON DEPT INDICATION: s/p PFO closure, SOB COM PARISON: November 22, 2019 FINDINGS: Portable frontal view of the chest. IMPRESSION: Support Lines: Right chest Port-A-Cath stable. Previously noted right IJ catheter has been removed. Lungs and pleura: Right upper lobe masslike consolidation 4 cm again noted. Left lower lobe and right lung atelectasis or scarring. No pneumothorax.Heart and mediastinum: Stable contours. Stable post procedure changes.Additional findings: None. Signed: Silvano Bruce MDReport Verified Date/Time: 01/12/2020 04:42:15 XR chest 1 view portable / bedside 2020-01-12 04:42:00Interface, External Ris In - 01/12/2020 4:44 AM CDTFINAL REPORT RAD, CHEST, 1 VIEW, NON DEPT INDICATION: s/p PFO closure, SOB COMPARISON: November 22, 2019 FINDINGS: Portable frontal view of the chest. IMPRESSION: Support Lines: Right chest Port-A-Cath stable. Previously noted right IJ catheter has been removed. Lungs and pleura: Right upper lobe masslike consolidation 4 cm again noted. Left lower lobe and right lung atelectasis or scarring. No pneumothorax.Heart and mediastinum: Stable contours. Stable post procedure changes.Additional findings: None. Signed: Silvano Bruce MDReport Verified Date/Time: 01/12/2020 04:42:15 [facility] [id number] 20:46:03Ejection [facility] ECHO HEARTLAB MKCKESSON CPACSInterface, External Ris In - 01/11/2020 8:46 PM C DTTransesophageal Echocardiography Report (LINDA) Demographics Patient Name QUIANA VALLADARES Date of Study 01/11/2020 KARINA Gender Female Visit Number [id number] Race Room Number 6102 Number Date of 1955 Referring Physician Helio Buitrago MD Age 64 year(s) Swager Operator Rob Beth MD Physician Procedure Type of Study LINDA procedure:TRANSESOPHAGEAL ECHO Indications:Patent foramen ovale (PFO).Clinical HistoryACID REFLUX,ASTHMA,COLON CANCER,DM,HTN,S/P TAVR 11/22/19Height: 66 inches Weight: 56.7 kg (125 lbs) BSA: 1.64 m^2 BMI: 20.18 kg/m^2HR: 73 bpm BP: 147/85 mmHg Summary Procedural LINDA to guide PFO closure by Amplatzer device. Pre procedural LINDA 1. Aneurysmal, hypermobile, redundant interatrial septum is noted. Atrial septal position jim nuously bows [id number], consistent with elevated LA pressure. There was [...] noted. Signature Findings Rhythm/BP Interventional LINDA (cpt 94634) for guidance of percutaneous intracardiac procedure. Left Normal left ventricular chamber size. Normal [...] is noted. Atrial septal position continuously bows [id number], consistent with elevated LA pressure. PFO noted. Aortic Valve A percutaneous (TAVR) biologic AoV prosthesis is visualized . The prosthetic AoV appears well-seated. Mild paravalvular aortic regurgitation. Mitral Valve Normal MV structure and function byavailable views and Doppler. Tricuspid Normal TV structure and function by available views and Valve Doppler. Unable to estimate peak systolic PA pressure; inadequate TR velocity signal. Pulmonic Normal PV structure and function by limited views and Valve Doppler. Pericardium No significant pericardial effusion is visualized.[facility] 12 [id number] 13:40:23Interface, External Ris In - 01/11/2020 1:40 PM CDTVentricular Rate 66 BPMAtrial Rate 66 BPMP-R Interval 160 msQRS Duration 90 msQ-T Interval 426 msQTC Calculation(Bazett) 446 msP [place] 76 degreesR [place] 49 degreesT [place] 51 degreesNormal sinus rhythmLow voltage QRSWithin normal limitsWhen compared withECG of 23-NOV-2019 11:50,Significant changes have occurredConfirmed by MD Orellana Roberto ([id number]) on 01/11/2020 1:40:18 [facility] ACTIVATED CLOTTING [id number] 11:12:00 Test Item Value Reference Range Interpretation Comments Activated Clotting Time 362 sec : 74 -137 seconds, (test code = 441) Baseline: TESTED AT [address], [address]: Fur Finisher/Techni logan ID = [id number] for TY BHATT [facility][id number] 11:12:00 Test Item Value Reference Range Interpretation Comments ACTIVATED CLOTTING TIME 362 sec : 74 -137 seconds, (BEAKER) (test code = Baseli ne: TESTED AT 441) [facility] [address] [facility], [address]: Fur Finisher/Techni logan ID = [id number] for TY BHATT SARS-CoV2/RT-PCR (Asymptomatic ONLY)2020-01-09 16:43:00 Test Item Value Reference Range Interpretation Comments SARS-COV2/RT-PCR (test code = Negative Not Detected, Negative 71733-9) SARS-COV-2 PERFORMING LAB CPL (test code = 39328-9) [facility] REF LABS)2020-01-09 16:43:00 Test Item Value Reference Range Interpretation Comments SARS-COV2/RT-PCR (test code = Negative Not Detected, Negative 5781859) SARS-COV-2 PERFORMING LAB CPL (test code = 3015946) Type and screen, [id number] 10:33:00 Test Item Value Reference Range Interpretation Comments ABO/RH AUTOMATED (BEAKER) (test O POSITIVE code = 2260) Ab Scrn (test code = 890-4) NEGATIVE [facility] [id number] 10:02:00 Test Item Value Reference Range Interpretation Comments SODIUM (BEAKER) 137 meq/L 136-145 (test code = 381) POTASSIUM (BEAKER) 4.3 meq/L 3.5-5.1 (test code = 379) CHLORIDE (BEAKER) 105 meq/L 98-107 (test code = 382) CO2 (BEAKER) (test 28 meq/L 22-29 code = 355) BLOOD UREA NITROGEN 11 mg/dL 7-21 (BEAKER) (test code = 354) CREATININE (BEAKER) 0.64 mg/dL 0.57-1.25 (test code = 358) GLUCOSE RANDOM 94 mg/dL 70-105 (BEAKER) (test code = 652) CALCIUM (BEAKER) 8.6 mg/dL 8.4-10.2 (test code = 697) EGFR (BEAKER) (test 94 mL/min/1.73 ESTIMA AMANDA GFR IS code = 1092) sq m NOT ACCURATE CREATININE CLEARANCE IN PREDICTING GLOMERULAR FILTRATION RATE . ESTIMATED GFR I S NOT APPLICABLE FOR DIALYSIS PATIEN TS. Fur Finisher ID - VARSHA [facility] (HEMOGRAM ONLY)2020-01-08 10:00:00 Test Item Value Reference Range Interpretation Comments WHITE BLOOD CELL COUNT (BEAKER) 6.4 K/ L 3.5-10.5 (test code = 775) RED BLOOD CELL COUNT (BEAKER) 3.42 M/ L 3.93-5.22 L (test code = 761) HEMOGLOBIN (BEAKER) (test code = 11.2 GM/DL 11.2-15.7 410) HEMATOCRIT (BEAKER) (test code = 34.3 % 34.1-44.9 411) MEAN CORPUSCULAR VOLUME (BEAKER) 100.3 fL 79.4-94.8 H (test code = 753) MEAN CORPUSCULAR HEMOGLOBIN 32.7 pg 25.6-32.2 H (BEAKER) (test code = 751) MEAN CORPUSCULAR HEMOGLOBIN CONC 32.7 GM/DL 32.2-35.5 (BEAKER) (test code = 752) RED CELL DISTRIBUTION WIDTH 14.4 % 11.7-14.4 (BEAKER) (test code = 412) PLATELET COUNT (BEAKER) (test 205 K/CU MM 150-450 code = 756) MEAN PLATELET VOLUME (BEAKER) 9.0 fL 9.4-12.3 L (test code = 754) NUCLEATED RED BLOOD CELLS 0 /100 WBC 0-0 (BEAKER) (test code = 413) Prothrombin time/[id number] 09:55:00 Test Item Value Reference Range Interpretation Comments Protime (test code = 13.7 11.9- 14.2 5902-2) seconds INR (test code = 1.1 <=5.9 6301-6) JANETTE (test code = JANETTE) Effective 01/25/2019: PT Reference Range ChangeNew: 11.9-14.2 Previous: 11.7-14.7 RECOMMENDED COUMADIN/WARFARIN INR THERAPY RANGESSTANDARD DOSE: 2.0-3.0 Includes: PROPHYLAXIS for venous thrombosis, systemic embolization; TREATMENT for venous thrombosis and/or pulmonary embolus.HIGH RISK: Target INR is 2.5-3.5 for patients wiht mechanical heart valves. Lab Interpretation Normal (test code = 66590-1) [facility] CampusPROTHROMBIN TIME/[id number] 09:55:00 Test Item Value Reference Range Interpretation Comments PROTIME (BEAKER) (test code = 13.7 seconds 11.9-14.2 759) INR (BEAKER) (test code = 370) 1.1 <=5.9 Effective 01/25/2019: PT Reference Range ChangeNew: 11.9-14.2 Previous: 11.7- 14.7RECOMMENDED COUMADIN/WARFARIN INR THERAPY RANGESSTANDARD DOSE: 2.0-3.0 Includes: PROPHYLAXIS for venous thrombosis, systemic embolization; TREATMENT for venous thrombosis and/or pulmonary embolus.HIGH RISK: Target INR is2.5-3.5 for patients wiht mechanical heart valves.POC-Glucose [id number] 08:22:00 Test Item Value Reference Range Interpretation Comments POC-Glucose Meter (test 115 mg/dL 70-110 H : TE STED AT [facility] code = 1538) [address] [facility], [address]: Fur Finisher/Techni logan ID = [id number] for VIVIANE KINGSTON Lab Interpretation (test Abnormal code = 60327-5) [facility]SE [id number] 08:22:00 Test Item Value Reference Range Interpretation Comments POC-GLUCOSE METER 115 mg/dL 70-110 H : TESTED A T [facility] [address] (BEAKER) (test code = LORELEI Jordan [facility], [address]) [address]: Fur Finisher/Techni logan ID = [id number] for VIVIANE PEREZ [id number] 04:20:00 Test Item Value Reference Range Interpretation Comments PTT (test code = 82.1 22.5- 36.0 seconds H 52786-3) JANETTE (test code = JANETTE) While on warfarin. Lab Interpretation (test Abnormal code = 22529-1) [facility] CampusAPTT2020-04-09 04:20:00 Test Item Value Reference Range Interpretation Comments PARTIAL THROMBOPLASTIN TIME 82.1 seconds 22.5-36.0 H (BEAKER) (test code = 760) While on warfarin.PROTHROMBIN TIME/[id number] 04:18:00 Test Item Value Reference Range Interpretation Comments PROTIME (BEAKER) (test code = 18.5 seconds 11.9-14.2 H 759) INR (AKER) (test code = 370) 1.6 <=5.9 Effective 01/25/2019: PT Reference Range ChangeNew: 11.9-14.2 Previous: 11.7- 14.7RECOMMENDED COUMADIN/WARFARIN INR THERAPY RANGESSTANDARD DOSE: 2.0-3.0 Includes: PROPHYLAXIS for venous thrombosis, systemic embolization; TREATMENT for venous thrombosis and/or pulmonary embolus.HIGH RISK: Target INR is2.5-3.5 for patients wiht mechanical heart valves.While on warfarin.CBC (HEMOGRAM ONLY) 2019-12-07 04:06:00 Test Item Value Reference Range Interpretation Comments WHITE BLOOD CELL COUNT (BEAKER) 5.9 K/ L 3.5-10.5 (test code = 775) RED BLOOD CELL COUNT (BEAKER) 3.00 M/ L 3.93-5.22 L (test code = 761) HEMOGLOBIN (BEAKER) (test code = 10.1 GM/DL 11.2-15.7 L 410) HEMATOCRIT (BEAKER) (test code = 30.3 % 34.1-44.9 L 411) MEAN CORPUSCULAR VOLUME (BEAKER) 101.0 fL 79.4-94.8 H (test code = 753) MEAN CORPUSCULAR HEMOGLOBIN 33.7 pg 25.6-32.2 H (BEAKER) (test code = 751) MEAN CORPUSCULAR HEMOGLOBIN CONC 33.3 GM/DL 32.2-35.5 (BEAKER) (test code = 752) RED CELL DISTRIBUTION WIDTH 13.7 % 11.7-14.4 (BEAKER) (test code = 412) PLATELET COUNT (BEAKER) (test 295 K/CU MM 150-450 code = 756) MEAN PLATELET VOLUME (BEAKER) 9.4 fL 9.4-12.3 (test code = 754) NUCLEATED RED BLOOD CELLS 0 /100 WBC 0-0 (BEAKER) (test code = 413) POCT-GLUCOSE [id number] 21:22:00 Test Item Value Reference Range Interpretation Comments POC-GLUCOSE METER 139 mg/dL 70-110 H : TESTED A T [facility] 6720 (BEAKER) (test code = [facility], 1538) [address]: Fur Finisher/Techni logan ID = [id number] for DE NNIS, ANNIE [id number] 20:50:00 Test Item Value Reference Range Interpretation Comments PARTIAL THROMBOPLASTIN TIME 69.4 seconds 22.5-36.0 H (BEAKER) (test code = 760) POCT-GLUCOSE [id number] 17:20:00 Test Item Value Reference Range Interpretation Comments POC-GLUCOSE METER 134 mg/dL 70-110 H : TESTED A T [facility] 6720 (BEAKER) (test code [facility], = 1538) [id number]: Fur Finisher/Techni logan ID = [id number] for DAYNE BAPTISTE [id number] 13:35:00 Test Item Value Reference Range Interpretation Comments PARTIAL THROMBOPLASTIN TIME 73.2 seconds 22.5-36.0 H (BEAKER) (test code = 760) POCT-GLUCOSE [id number] 11:44:00 Test Item Value Reference Range Interpretation Comments POC-GLUCOSE METER 81 mg/dL 70-110 : TESTED A T [facility] 6720 (BEAKER) (test code [facility], = 1538) [id number]: Fur Finisher/Techni logan ID = [id number] for DAYNE BAPTISTE POCT-GLUCOSE [id number] 08:22:00 Test Item Value Reference Range Interpretation Comments POC-GLUCOSE METER 105 mg/dL 70-110 : TESTED A T [facility] 6720 (BEAKER) (test code [facility], = 1538) [id number]: Fur Finisher/Techni logan ID = [id number] for DAYNE BAPTISTE [id number] 06:26:00 Test Item Value Reference Range Interpretation Comments PARTIAL THROMBOPLASTIN TIME 97.4 seconds 22.5-36.0 H (BEAKER) (test code = 760) While on warfarin.PROTHROMBIN [id number] 06:24:00 Test Item Value Reference Range Interpretation Comments PROTIME (BEAKER) (test code = 17.4 seconds 11.9-14.2 H 759) INR (BEAKER) (test code = 370) 1.5 <=5.9 Effective 01/25/2019: PT Reference Range ChangeNew: 11.9-14.2 Previous: 11.7- 14.7RECOMMENDED COUMADIN/WARFARIN INR THERAPY RANGESSTANDARD DOSE: 2.0-3.0 Includes: PROPHYLAXIS for venous thrombosis, systemic embolization; TREATMENT for venous thrombosis and/or pulmonary embolus.HIGH RISK: Target INR is2.5-3.5 for patients wiht mechanical heart valves.While on warfarin.BASIC METABOLIC [id number] 06:22:00 Test Item Value Reference Range Interpretation Comments SODIUM (BEAKER) 140 meq/L 136-145 (test code = 381) POTASSIUM (BEAKER) 3.8 meq/L 3.5-5.1 (test code = 379) CHLORIDE (BEAKER) 110 meq/L 98-107 H (test code = 382) CO2 (BEAKER) (test 22 meq/L 22-29 code = 355) BLOOD UREA NITROGEN 12 mg/dL 7-21 (BEAKER) (test code = 354) CREATININE (BEAKER) 0.61 mg/dL 0.57-1.25 (test code = 358) GLUCOSE RANDOM 110 mg/dL 70-105 H (BEAKER) (test code = 652) CALCIUM (BEAKER) 9.0 mg/dL 8.4-10.2 (test code = 697) EGFR (BEAKER) (test 99 mL/min/1.73 ESTIMA AMANDA GFR IS code = 1092) sq m NOT ACCURATE CREATININE CLEARANCE IN PREDICTING GLOMERULAR FILTRATION RATE . ESTIMATED GFR I S NOT APPLICABLE FOR DIALYSIS PATIEN TS. Fur Finisher ID - [id number] (HEMOGRAM ONLY)2019-12-06 05:55:00 Test Item Value Reference Range Interpretation Comments WHITE BLOOD CELL COUNT (BEAKER) 6.6 K/ L 3.5-10.5 (test code = 775) RED BLOOD CELL COUNT (BEAKER) 3.13 M/ L 3.93-5.22 L (test code = 761) HEMOGLOBIN (BEAKER) (test code = 10.4 GM/DL 11.2-15.7 L 410) HEMATOCRIT (BEAKER) (test code = 31.8 % 34.1-44.9 L 411) MEAN CORPUSCULAR VOLUME (BEAKER) 101.6 fL 79.4-94.8 H (test code = 753) MEAN CORPUSCULAR HEMOGLOBIN 33.2 pg 25.6-32.2 H (BEAKER) (test code = 751) MEAN CORPUSCULAR HEMOGLOBIN CONC 32.7 GM/DL 32.2-35.5 (BEAKER) (test code = 752) RED CELL DISTRIBUTION WIDTH 13.7 % 11.7-14.4 (BEAKER) (test code = 412) PLATELET COUNT (BEAKER) (test 281 K/CU MM 150-450 code = 756) MEAN PLATELET VOLUME (BEAKER) 9.1 fL 9.4-12.3 L (test code = 754) NUCLEATED RED BLOOD CELLS 0 /100 WBC 0-0 (BEAKER) (test code = 413) [id number] 23:28:00 Test Item Value Reference Range Interpretation Comments PARTIAL THROMBOPLASTIN TIME 41.2 seconds 22.5-36.0 H (BEAKER) (test code = 760) POCT-GLUCOSE [id number] 21:32:00 Test Item Value Reference Range Interpretation Comments POC-GLUCOSE METER 123 mg/dL 70-110 H : TESTED A T [facility] 67[facility] ([facility]) (test code = [facility]INE Jordan [facility], 1538) [address]: Fur Finisher/Techni logan ID = [id number] for DE ANNIE [address] [id number] 21:24:00 Test Item Value Reference Range Interpretation Comments PARTIAL THROMBOPLASTIN TIME 75.2 seconds 22.5-36.0 H (BEAKER) (test code = 760) POCT-GLUCOSE [id number] 16:35:00 Test Item Value Reference Range Interpretation Comments POC-GLUCOSE METER 174 mg/dL 70-110 H : Notified RN/MD: TESTED ([facility]) ([facility] = 1538) [facility], [address]: Fur Finisher/Techni logan ID = [id number] for TSEG GAI, TSIGHEREDA POCT-GLUCOSE [id number] 13:25:00 Test Item Value Reference Range Interpretation Comments POC-GLUCOSE METER 136 mg/dL 70-110 H : TESTED A T [facility] ([facility]) (test code [facility], = 1538) [address]: Fur Finisher/Techni logan ID = [id number] for TSEG GAI, TSIGHEREDA [id number] 13:02:00 Test Item Value Reference Range Interpretation Comments PARTIAL THROMBOPLASTIN TIME 102.3 seconds 22.5-36.0 H ([facility]) (test code = 760) Transesophageal [id number] 12:16:29Ejection FractionSLEH ECHO HEARTLAB MKCKESSON CPACSInterface, External Ris In - 12/05/2019 12:16 PM C DTTransesophageal Echocardiography Report (LINDA) Demographics Patient Name QUIANA VALLADARES Date of Study 12/05/2019 KARINA Gender Female Visit Number [id number] Race Room Number 2223 Number Date of 1955 Referring Physician Helio Buitrago MD Age 64 year(s) Swager Operator Rob Zurita Interpreting Donato Beth MD Physician Fellow Valery Chirinos Procedure Type of Study LINDA procedure:TRANSESOPHAGEAL ECHO Indications:Stroke .Clinical HistoryACID REFLUX,ASTHMA,CANCER,DMII,HTN,S/P TAVR 11/22/2019Height: 65 inches Weight: 50.35 kg (111 lbs) BSA: 1.54 m^2 BMI: 18.47 kg/m^2HR: 52 bpm BP: 109/56 mmHg Procedure Informed [...] course of the procedures and under my s upervision and recoded in the patient's medical record. Total time of sedation was > 30 minutes.. Summary 1. Aneurysmal, hypermobile, redundant interatrial septum is noted. Atrial septal position continuously bows vfav-xn-fzsms, consistent with elevated LA pressure. Intermittently, with coughing -the interatrial septum would bow to the left. [...] appears well-seated. Normal leaflet excursion noted. Mild paraval vular aortic regurgitation. 3. Low Normal overall left ventricular systolic function. The right ventricular chamber size and systolic function are within normal limits. 4. No significant pericardial effusion is visualized. Previous Study Compared to prior study dated 11/30/2019, PFO was better demonstrated on prior study. Signature Findings Rhythm/BP Sinus bradycardia during the exam. 3D imaging (cpt 42232) rendering with interpretation was performed. Left Normal left ventricular chamber size. Normal wall thickness. Ventricle Low Normal overall left ventricular systolic function. No apparent segmental wall motion abnormalities. Left Atrium LA is enlarged. LA appendage morphology is simple (wind sock). Amalia appendage Thrombus visualized. LA appendage velocities are normal range (>40 cm/s) . Right The right ventricular chamber size and systolic function are Ventricle within normal limits. Right Atrium RA size is normal. Atrial Aneurysmal, hypermobile, redundant interatrial septum is Septum noted. Atrial septal position continuously bows amkq-ka-naome, consistent with elevated LA pressure. Intermittently, with coughing - the interatrial septum would bow to the left. There was a small amount of right [...] systolic PA pressure; inadequate TR velocity signal. Pulmonic Normal PV structure and function by limited views and Valve Doppler. Aorta Aortic root size(SInus of Valsalva diameter) is normal . The aortic sinotubular junction appears normal. Proximal ascending aorta size is normal . Grade 3 plaque (atheroma < 2mm) in the aortic arch. Pericardium No significant pericardial effusion is visualized.[facility] POCT-GLUCOSE [id number] 07:44:00 Test Item Value Reference Range Interpretation Comments POC-GLUCOSE METER 122 mg/dL 70-110 H : TESTED A T [facility] 6720 ([employer]) (test code [facility], = 1538) [id number]: Fur Finisher/Techni logan ID = [id number] for DAYNE BAPTISTE [id number] 05:43:00 Test Item Value Reference Range Interpretation Comments PARTIAL THROMBOPLASTIN TIME 63.8 seconds 22.5-36.0 H (BEAKER) (test code = 760) While on warfarin.PROTHROMBIN [id number] 05:42:00 Test Item Value Reference Range Interpretation Comments PROTIME (BEAKER) (test code = 16.7 seconds 11.9-14.2 H 759) INR (BEAKER) (test code = 370) 1.4 <=5.9 Effective 01/25/2019: PT Reference Range ChangeNew: 11.9-14.2 Previous: 11.7- 14.7RECOMMENDED COUMADIN/WARFARIN INR THERAPY RANGESSTANDARD DOSE: 2.0-3.0 Includes: PROPHYLAXIS for venous thrombosis, systemic embolization; TREATMENT for venous thrombosis and/or pulmonary embolus.HIGH RISK: Target INR is2.5-3.5 for patients wiht mechanical heart valves.While on warfarin.CBC (HEMOGRAM ONLY) 2019-12-05 05:26:00 Test Item Value Reference Range Interpretation Comments WHITE BLOOD CELL COUNT (BEAKER) 7.0 K/ L 3.5-10.5 (test code = 775) RED BLOOD CELL COUNT (BEAKER) 3.15 M/ L 3.93-5.22 L (test code = 761) HEMOGLOBIN (BEAKER) (test code = 10.8 GM/DL 11.2-15.7 L 410) HEMATOCRIT (BEAKER) (test code = 32.6 % 34.1-44.9 L 411) MEAN CORPUSCULAR VOLUME (BEAKER) 103.5 fL 79.4-94.8 H (test code = 753) MEAN CORPUSCULAR HEMOGLOBIN 34.3 pg 25.6-32.2 H (BEAKER) (test code = 751) MEAN CORPUSCULAR HEMOGLOBIN CONC 33.1 GM/DL 32.2-35.5 (BEAKER) (test code = 752) RED CELL DISTRIBUTION WIDTH 13.6 % 11.7-14.4 (BEAKER) (test code = 412) PLATELET COUNT (BEAKER) (test 284 K/CU MM 150-450 code = 756) MEAN PLATELET VOLUME (BEAKER) 9.6 fL 9.4-12.3 (test code = 754) NUCLEATED RED BLOOD CELLS 0 /100 WBC 0-0 (BEAKER) (test code = 413) POCT-GLUCOSE [id number] 21:15:00 Test Item Value Reference Range Interpretation Comments POC-GLUCOSE METER 131 mg/dL 70-110 H : TESTED A T [facility] 6720 (BEAKER) (test code = [facility], 1538) [address]: Fur Finisher/Techni logan ID = [id number] for DE NNIS, ANNIE POCT-GLUCOSE [id number] 17:03:00 Test Item Value Reference Range Interpretation Comments POC-GLUCOSE METER 115 mg/dL 70-110 H : TESTED A T [facility] 6720 (BEAKER) (test code [facility], = 1538) [address]: Fur Finisher/Techni logan ID = [id number] for DAYNE BAPTISTE [id number] 15:42:00 Test Item Value Reference Range Interpretation Comments PARTIAL THROMBOPLASTIN TIME 79.2 seconds 22.5-36.0 H (BEAKER) (test code = 760) POCT-GLUCOSE [id number] 11:47:00 Test Item Value Reference Range Interpretation Comments POC-GLUCOSE METER 106 mg/dL 70-110 : TESTED A T [facility] 6720 (BEAKER) (test code [facility], = 1538) [address]: Fur Finisher/Techni logan ID = [id number] for DECLAN BAPTISTEA BASIC METABOLIC [id number] 08:29:00 Test Item Value Reference Range Interpretation Comments SODIUM (BEAKER) 131 meq/L 136-145 L (test code = 381) POTASSIUM (BEAKER) 4.2 meq/L 3.5-5.1 Specimen slightly (test code = 379) hemolyzed CHLORIDE (BEAKER) 101 meq/L 98-107 (test code = 382) CO2 (BEAKER) (test 25 meq/L 22-29 code = 355) BLOOD UREA NITROGEN 12 mg/dL 7-21 (BEAKER) (test code = 354) CREATININE (BEAKER) 0.58 mg/dL 0.57-1.25 Specimen slightly (test code = 358) hemolyzed GLUCOSE RANDOM 107 mg/dL 70-105 H (BEAKER) (test code = 652) CALCIUM (BEAKER) 9.0 mg/dL 8.4-10.2 (test code = 697) EGFR (BEAKER) (test 105 mL/min/1.73 ESTIM ATED GFR IS code = 1092) sq m NOT ACCURATE CREATININE CLEARANCE IN PREDICTING GLOMERULAR FILTRATION RATE . ESTIMATED GFR I S NOT APPLICABLE FOR DIALYSIS PATIEN TS. Fur Finisher ID - EMERSONPOCT-GLUCOSE [id number] 08:24:00 Test Item Value Reference Range Interpretation Comments POC-GLUCOSE METER 111 mg/dL 70-110 H : TESTED A T [facility] 6720 (BEAKER) (test code [facility], = 1538) [address]: Fur Finisher/Techni logan ID = [id number] for DAYNE BAPTISTE [id number] 08:04:00 Test Item Value Reference Range Interpretation Comments Protime (test code = 15.9 11.9- 14.2 H 5902-2) seconds INR (test code = 1.3 <=5.9 6301-6) PTT (test code = 90.4 22.5- 36.0 H 13299-7) seconds JANETTE (test code = JANETTE) Effective 01/25/2019: PT Reference Range ChangeNew: 11.9-14.2 Previous: 11.7-14.7 RECOMMENDED COUMADIN/WARFARIN INR THERAPY RANGESSTANDARD DOSE: 2.0-3.0 Includes: PROPHYLAXIS for venous thrombosis, systemic embolization; TREATMENT for venous thrombosis and/or pulmonary embolus.HIGH RISK: Target INR is 2.5-3.5 for patients wiht mechanical heart valves. While on warfarin.While on warfarin. Lab Interpretation Abnormal (test code = 05995-3) [id number] 08:04:00 Test Item Value Reference Range Interpretation Comments PROTIME (BEAKER) (test code = 15.9 seconds 11.9-14.2 H 759) INR (BEAKER) (test code = 370) 1.3 <=5.9 PARTIAL THROMBOPLASTIN TIME 90.4 seconds 22.5-36.0 H (BEAKER) (test code = 760) Effective 01/25/2019: PT Reference Range ChangeNew: 11.9-14.2 Previous: 11.7- 14.7RECOMMENDED COUMADIN/WARFARIN INR THERAPY RANGESSTANDARD DOSE: 2.0-3.0 Includes: PROPHYLAXIS for venous thrombosis, systemic embolization; TREATMENT for venous thrombosis and/or pulmonary embolus.HIGH RISK: Target INR is2.5-3.5 for patients wiht mechanical heart valves.While on warfarin.While on warfarin. PROTHROMBIN [id number] 08:02:00 Test Item Value Reference Range Interpretation Comments PROTIME (BEAKER) (test code = 15.9 seconds 11.9-14.2 H 759) INR (BEAKER) (test code = 370) 1.3 <=5.9 Effective 01/25/2019: PT Reference Range ChangeNew: 11.9-14.2 Previous: 11.7- 14.7RECOMMENDED COUMADIN/WARFARIN INR THERAPY RANGESSTANDARD DOSE: 2.0-3.0 Includes: PROPHYLAXIS for venous thrombosis, systemic embolization; TREATMENT for venous thrombosis and/or pulmonary embolus.HIGH RISK: Target INR is2.5-3.5 for patients wiht mechanical heart valves.CBC (HEMOGRAM ONLY)2019-12-04 07:53:00 Test Item Value Reference Range Interpretation Comments WHITE BLOOD CELL COUNT (BEAKER) 6.1 K/ L 3.5-10.5 (test code = 775) RED BLOOD CELL COUNT (BEAKER) 3.23 M/ L 3.93-5.22 L (test code = 761) HEMOGLOBIN (BEAKER) (test code = 10.8 GM/DL 11.2-15.7 L 410) HEMATOCRIT (BEAKER) (test code = 32.6 % 34.1-44.9 L 411) MEAN CORPUSCULAR VOLUME (BEAKER) 100.9 fL 79.4-94.8 H (test code = 753) MEAN CORPUSCULAR HEMOGLOBIN 33.4 pg 25.6-32.2 H (BEAKER) (test code = 751) MEAN CORPUSCULAR HEMOGLOBIN CONC 33.1 GM/DL 32.2-35.5 (BEAKER) (test code = 752) RED CELL DISTRIBUTION WIDTH 13.6 % 11.7-14.4 (BEAKER) (test code = 412) PLATELET COUNT (BEAKER) (test 301 K/CU MM 150-450 code = 756) MEAN PLATELET VOLUME (BEAKER) 9.4 fL 9.4-12.3 (test code = 754) NUCLEATED RED BLOOD CELLS 0 /100 WBC 0-0 (BEAKER) (test code = 413) [id number] 23:55:00 Test Item Value Reference Range Interpretation Comments PROTIME (BEAKER) (test code = 14.8 seconds 11.9-14.2 H 759) INR (BEAKER) (test code = 370) 1.2 <=5.9 PARTIAL THROMBOPLASTIN TIME 98.2 seconds 22.5-36.0 H (BEAKER) (test code = 760) Effective 01/25/2019: PT Reference Range ChangeNew: 11.9-14.2 Previous: 11.7- 14.7RECOMMENDED COUMADIN/WARFARIN INR THERAPY RANGESSTANDARD DOSE: 2.0-3.0 Includes: PROPHYLAXIS for venous thrombosis, systemic embolization; TREATMENT for venous thrombosis and/or pulmonary embolus.HIGH RISK: Target INR is2.5-3.5 for patients wiht mechanical heart valves.POCT-GLUCOSE [id number] 21:15:00 Test Item Value Reference Range Interpretation Comments POC-GLUCOSE METER 112 mg/dL 70-110 H : TESTED A T [facility] 6720 (BEAKER) (test code = [place], 1538) [address]: Fur Finisher/Techni logan ID = [id number] for CIELO HERNANDEZ PT/[id number] 17:19:00 Test Item Value Reference Range Interpretation Comments PROTIME (BEAKER) (test code = 14.0 seconds 11.9-14.2 759) INR (BEAKER) (test code = 370) 1.1 <=5.9 PARTIAL THROMBOPLASTIN TIME 89.9 seconds 22.5-36.0 H (BEAKER) (test code = 760) Effective 01/25/2019: PT Reference Range ChangeNew: 11.9-14.2 Previous: 11.7- 14.7RECOMMENDED COUMADIN/WARFARIN INR THERAPY RANGESSTANDARD DOSE: 2.0-3.0 Includes: PROPHYLAXIS for venous thrombosis, systemic embolization; TREATMENT for venous thrombosis and/or pulmonary embolus.HIGH RISK: Target INR is2.5-3.5 for patients wiht mechanical heart valves.POCT-GLUCOSE [id number] 17:06:00 Test Item Value Reference Range Interpretation Comments POC-GLUCOSE METER 143 mg/dL 70-110 H : TESTED A T [facility] 6720 (BEAKER) (test code = [facility], 1538) [address]: Fur Finisher/Techni logan ID = [id number] for MATIAS CASTELLANO, SHANIQUA POCT-GLUCOSE [id number] 11:39:00 Test Item Value Reference Range Interpretation Comments POC-GLUCOSE METER 128 mg/dL 70-110 H : TESTED A T [facility] 6720 (BEAKER) (test code = [facility], 1538) [address]: Fur Finisher/Techni logan ID = [id number] for MATIAS CASTELLANO, JUANJOSETERA POCT-GLUCOSE [id number] 08:01:00 Test Item Value Reference Range Interpretation Comments POC-GLUCOSE METER 96 mg/dL 70-110 : TESTED A T [facility] 6720 (BEAKER) (test code = [facility], 1538) [address]1987: Fur Finisher/Techni logan ID = [id number] for SHANIQUA FERRER PT/[id number] 06:28:00 Test Item Value Reference Range Interpretation Comments PROTIME (BEAKER) (test code = 14.1 seconds 11.9-14.2 759) INR (BEAKER) (test code = 370) 1.1 <=5.9 PARTIAL THROMBOPLASTIN TIME 106.5 seconds 22.5-36.0 H (BEAKER) (test code = 760) Effective 01/25/2019: PT Reference Range ChangeNew: 11.9-14.2 Previous: 11.7- 14.7RECOMMENDED COUMADIN/WARFARIN INR THERAPY RANGESSTANDARD DOSE: 2.0-3.0 Includes: PROPHYLAXIS for venous thrombosis, systemic embolization; TREATMENT for venous thrombosis and/or pulmonary embolus.HIGH RISK: Target INR is2.5-3.5 for patients wiht mechanical heart valves.While on warfarin.While on warfarin. PROTHROMBIN TIME/[id number] 06:12:00 Test Item Value Reference Range Interpretation Comments PROTIME (BEAKER) (test code = 14.1 seconds 11.9-14.2 759) INR (BEAKER) (test code = 370) 1.1 <=5.9 Effective 01/25/2019: PT Reference Range ChangeNew: 11.9-14.2 Previous: 11.7- 14.7RECOMMENDED COUMADIN/WARFARIN INR THERAPY RANGESSTANDARD DOSE: 2.0-3.0 Includes: PROPHYLAXIS for venous thrombosis, systemic embolization; TREATMENT for venous thrombosis and/or pulmonary embolus.HIGH RISK: Target INR is2.5-3.5 for patients wiht mechanical heart valves.CBC (HEMOGRAM ONLY)2019-12-03 05:59:00 Test Item Value Reference Range Interpretation Comments WHITE BLOOD CELL COUNT (BEAKER) 6.0 K/ L 3.5-10.5 (test code = 775) RED BLOOD CELL COUNT (BEAKER) 3.21 M/ L 3.93-5.22 L (test code = 761) HEMOGLOBIN (BEAKER) (test code = 10.6 GM/DL 11.2-15.7 L 410) HEMATOCRIT (BEAKER) (test code = 32.7 % 34.1-44.9 L 411) MEAN CORPUSCULAR VOLUME (BEAKER) 101.9 fL 79.4-94.8 H (test code = 753) MEAN CORPUSCULAR HEMOGLOBIN 33.0 pg 25.6-32.2 H (BEAKER) (test code = 751) MEAN CORPUSCULAR HEMOGLOBIN CONC 32.4 GM/DL 32.2-35.5 (BEAKER) (test code = 752) RED CELL DISTRIBUTION WIDTH 13.5 % 11.7-14.4 (BEAKER) (test code = 412) PLATELET COUNT (BEAKER) (test 289 K/CU MM 150-450 code = 756) MEAN PLATELET VOLUME (BEAKER) 9.2 fL 9.4-12.3 L (test code = 754) NUCLEATED RED BLOOD CELLS 0 /100 WBC 0-0 (BEAKER) (test code = 413) POCT-GLUCOSE [id number] 20:49:00 Test Item Value Reference Range Interpretation Comments POC-GLUCOSE METER 102 mg/dL 70-110 : TESTED A T [facility] 6720 (BEAKER) (test code = [place], 1538) [address]: Fur Finisher/Techni logan ID = [id number] for CIELO HERNANDEZ POCT-GLUCOSE [id number] 18:32:00 Test Item Value Reference Range Interpretation Comments POC-GLUCOSE METER 132 mg/dL 70-110 H : TESTED A T [facility] 6720 (BEAKER) (test code = [facility], [facility]8) [address]: Fur Finisher/Techni logan ID = [id number] for AK INSONU, PEEWEE POCT-GLUCOSE [id number] 18:28:00 Test Item Value Reference Range Interpretation Comments POC-GLUCOSE METER 85 mg/dL 70-110 : TESTED A T [facility] 6720 (BEAKER) (test code = [facility], 1538) 98[address]: Fur Finisher/Techni logan ID = [id number] for LUPE TAYO, PEEWEE POCT-GLUCOSE [id number] 18:26:00 Test Item Value Reference Range Interpretation Comments POC-GLUCOSE METER 111 mg/dL 70-110 H : TESTED A T [facility] 6720 (BEAKER) (test code = [facility], [facility]8) [address]: Fur Finisher/Techni logan ID = [id number] for Sebastian Soto POCT-GLUCOSE [id number] 18:24:00 Test Item Value Reference Range Interpretation Comments POC-GLUCOSE METER 104 mg/dL 70-110 : TESTED A T [facility] 6720 (BEAKER) (test code = [facility], [facility]8) [id number]: Fur Finisher/Techni logan ID = [id number] for AK INSONU, PEEWEE [id number] 06:50:00 Test Item Value Reference Range Interpretation Comments D-Dimer, Quant (test code 0.42 <0.50 MG/L FEU = 83054-2) JANETTE (test code = JANETTE) Intended Use: The D-Dimer Assay can be used to aid in the diagnosis of Deep Vein Thrombosis (DVT) and Pulmonary Embolism Disease (PED).In patients with low pre-test probability, various studies concerning STA Liatest D-dimer test have reported that with a cutoff value of 0.50 MG/L FEU, the Negative Predictive Value (NPV) regarding the exclusion of thrombosis is within 95-100% range.While on warfarin. Lab Interpretation (test Normal code = 31557-7) [id number] 06:50:00 Test Item Value Reference Range Interpretation Comments D-DIMER QUANTITATIVE (BEAKER) 0.42 MG/L FEU <0.50 (test code = 671) Intended Use: The D-Dimer Assay can be used to aid in the diagnosis of Deep Vein Thrombosis (DVT) and Pulmonary Embolism Disease (PED).In patients with low pre- test probability, various studies concerning STA Liatest D-dimer test have reported that with a cutoff value of 0.50 MG/L FEU, the Negative Predictive Value (NPV) regarding the exclusion of thrombosis is within 95-100% range.While on warfarin.PT/[id number] 06:49:00 Test Item Value Reference Range Interpretation Comments PROTIME (BEAKER) (test code = 13.2 seconds 11.9-14.2 759) INR (BEAKER) (test code = 370) 1.0 <=5.9 PARTIAL THROMBOPLASTIN TIME 77.5 seconds 22.5-36.0 H (BEAKER) (test code = 760) Effective 01/25/2019: PT Reference Range ChangeNew: 11.9-14.2 Previous: 11.7- 14.7RECOMMENDED COUMADIN/WARFARIN INR THERAPY RANGESSTANDARD DOSE: 2.0-3.0 Includes: PROPHYLAXIS for venous thrombosis, systemic embolization; TREATMENT for venous thrombosis and/or pulmonary embolus.HIGH RISK: Target INR is2.5-3.5 for patients wiht mechanical heart valves.While on warfarin.While on warfarin. PROTHROMBIN TIME/[id number] 06:47:00 Test Item Value Reference Range Interpretation Comments PROTIME (BEAKER) (test code = 13.2 seconds 11.9-14.2 759) INR (BEAKER) (test code = 370) 1.0 <=5.9 Effective 01/25/2019: PT Reference Range ChangeNew: 11.9-14.2 Previous: 11.7- 14.7RECOMMENDED COUMADIN/WARFARIN INR THERAPY RANGESSTANDARD DOSE: 2.0-3.0 Includes: PROPHYLAXIS for venous thrombosis, systemic embolization; TREATMENT for venous thrombosis and/or pulmonary embolus.HIGH RISK: Target INR is2.5-3.5 for patients wiht mechanical heart valves.CBC (HEMOGRAM ONLY)2019-12-02 06:40:00 Test Item Value Reference Range Interpretation Comments WHITE BLOOD CELL COUNT (BEAKER) 5.3 K/ L 3.5-10.5 (test code = 775) RED BLOOD CELL COUNT (BEAKER) 3.09 M/ L 3.93-5.22 L (test code = 761) HEMOGLOBIN (BEAKER) (test code = 10.6 GM/DL 11.2-15.7 L 410) HEMATOCRIT (BEAKER) (test code = 31.6 % 34.1-44.9 L 411) MEAN CORPUSCULAR VOLUME (BEAKER) 102.3 fL 79.4-94.8 H (test code = 753) MEAN CORPUSCULAR HEMOGLOBIN 34.3 pg 25.6-32.2 H (BEAKER) (test code = 751) MEAN CORPUSCULAR HEMOGLOBIN CONC 33.5 GM/DL 32.2-35.5 (BEAKER) (test code = 752) RED CELL DISTRIBUTION WIDTH 13.8 % 11.7-14.4 (BEAKER) (test code = 412) PLATELET COUNT (BEAKER) (test 297 K/CU MM 150-450 code = 756) MEAN PLATELET VOLUME (BEAKER) 9.5 fL 9.4-12.3 (test code = 754) NUCLEATED RED BLOOD CELLS 0 /100 WBC 0-0 (BEAKER) (test code = 413) [id number] 01:34:00 Test Item Value Reference Range Interpretation Comments PARTIAL THROMBOPLASTIN TIME 91.6 seconds 22.5-36.0 H (BEAKER) (test code = 760) POCT-GLUCOSE [id number] 20:46:00 Test Item Value Reference Range Interpretation Comments POC-GLUCOSE METER 118 mg/dL 70-110 H : TESTED A T [facility] 67[address] (BEAKER) (test code = [place], [address]38) [id number]: Fur Finisher/Techni logan ID = [id number] for DE NNIS, ANNIE [id number] 17:59:00 Test Item Value Reference Range Interpretation Comments PARTIAL THROMBOPLASTIN TIME 78.3 seconds 22.5-36.0 H (BEAKER) (test code = 760) POCT-GLUCOSE [id number] 17:22:00 Test Item Value Reference Range Interpretation Comments POC-GLUCOSE METER 144 mg/dL 70-110 H : TESTED A T [facility] 67[address] (MIKE) (test code = [place], [address]38) [id number]: Fur Finisher/Techni logan ID = [id number] for PEEWEE OTERO Venous doppler legs [id number] 13:05:55Ejection FractionSLEH ECHO HEARTLAB MKCKESSON CPACSRight Impression1. There is no deep venous obstruction in the common femoral, profundafemoral, femoral, popliteal, posterior tibial or peroneal veins.2. There is no superficial venous obstruction in the great saphenous vein.Left Impression1. There is no deep venous obstruction in the common femoral, profundafemoral, femoral, popliteal, posterior tibial or peroneal veins.2. There is no superficial venous obstruction in the great saphenous vein. Conclusions Summary Venous duplex imaging and compression of the bilateral lower extremities were performed. The veins were adequately visualized. The bilateral venous systems were patent and compressiblewith no evidence of thrombus. The venous Doppler waveforms were phasic with respiration . Signature Velocities are measured in cm/s ; Diameters are measured in cm Interface, External Ris In - 12/01/2019 1:06 PM CDTPV LAB - Lower Extremities DVT Study Demographics Patient Name QUIANA VALLADARES Date of Study 12/01/2019 Age 64 Visit Number [id number] Gender Female Accession Number [id number] Date of 1955 Referring [facility] Room Number 2223 Physician MD Nicolasa Swager Operator Nomi Lara RVT Interpreting Christa Carter Physician ProcedureType of Study: Veins: Lower Extremities DVT Study, VENOUS DOPPLER LEG, BILATERAL. Indications for Study:Stroke and PFO .Patient Status:Routine.Study Location:Portable.Technical Quality:Adequate visualization.Risk FactorsHistoryof Disease+ +----+ --+!Diagnosis !Date!Comments !+ +----+-------- +!History/Risk Factors: ! !Cancer, HTN, DM !+ +----+ +!Ot her ! !Acid Reflux, Asthma, Heart Cath !+ +----+------- +ImpressionsRight Impression1. There is no deep venous obstruction in the common femoral, profundafemoral, femoral, popliteal, posterior tibial or peroneal veins.2. There is no superficial venous obstruction in the great saphenous vein.Left Impression1. There is no deep venous obstruction in the common femoral, profundafemoral, femoral, popliteal, posterior tibial or peroneal veins.2. There is no superficial venous obstruction in the great saphenous vein. Conclusions Summary Venous duplex imaging and compression of the bilateral lower extremities were performed. The veins were adequately visualized. The bilateral venous systems were patent and compressible with no evidence of thrombus. The venous Doppler waveforms were phasic with respiration . Signature --- Velocities are measured in cm/s ; Diameters are measured in [facility] POCT-GLUCOSE [id number] 12:55:00 Test Item Value Reference Range Interpretation Comments POC-GLUCOSE METER 100 mg/dL 70-110 : [facility] (BEAKER) (test code = [facility], 1538) [id number]: Fur Finisher/Techni logan ID = [id number] for PEEWEE OTERO [id number] 10:36:00 Test Item Value Reference Range Interpretation Comments PARTIAL THROMBOPLASTIN TIME 52.8 seconds 22.5-36.0 H (BEAKER) (test code = 760) CBC (HEMOGRAM ONLY)2019-12-01 10:34:00 Test Item Value Reference Range Interpretation Comments WHITE BLOOD CELL COUNT (BEAKER) 6.4 K/ L 3.5-10.5 (test code = 775) RED BLOOD CELL COUNT (BEAKER) 3.31 M/ L 3.93-5.22 L (test code = 761) HEMOGLOBIN (BEAKER) (test code = 11.1 GM/DL 11.2-15.7 L 410) HEMATOCRIT (BEAKER) (test code = 33.5 % 34.1-44.9 L 411) MEAN CORPUSCULAR VOLUME (BEAKER) 101.2 fL 79.4-94.8 H (test code = 753) MEAN CORPUSCULAR HEMOGLOBIN 33.5 pg 25.6-32.2 H (BEAKER) (test code = 751) MEAN CORPUSCULAR HEMOGLOBIN CONC 33.1 GM/DL 32.2-35.5 (BEAKER) (test code = 752) RED CELL DISTRIBUTION WIDTH 13.5 % 11.7-14.4 (BEAKER) (test code = 412) PLATELET COUNT (BEAKER) (test 271 K/CU MM 150-450 code = 756) MEAN PLATELET VOLUME (BEAKER) 9.1 fL 9.4-12.3 L (test code = 754) NUCLEATED RED BLOOD CELLS 0 /100 WBC 0-0 (BEAKER) (test code = 413) POCT-GLUCOSE [id number] 08:11:00 Test Item Value Reference Range Interpretation Comments POC-GLUCOSE METER 99 mg/dL 70-110 : TESTED A [employer] [facility] 67[address] (BEAKER) (test code = [place], [address]) [id number]: Fur Finisher/Techni logan ID = [id number] for PEEWEE WILSON [id number] 02:54:00 Test Item Value Reference Range Interpretation Comments PARTIAL THROMBOPLASTIN TIME 42.2 seconds 22.5-36.0 H (BEAKER) (test code = 760) [id number] 00:16:00 Test Item Value Reference Range Interpretation Comments PROTIME (BEAKER) (test code = 13.4 seconds 11.9-14.2 759) INR (BEAKER) (test code = 370) 1.1 <=5.9 PARTIAL THROMBOPLASTIN TIME 152.4 seconds 22.5-36.0 HH (BEAKER) (test code = 760) Effective 01/25/2019: PT Reference Range ChangeNew: 11.9-14.2 Previous: 11.7- 14.7RECOMMENDED COUMADIN/WARFARIN INR THERAPY RANGESSTANDARD DOSE: 2.0-3.0 Includes: PROPHYLAXIS for venous thrombosis, systemic embolization; TREATMENT for venous thrombosis and/or pulmonary embolus.HIGH RISK: Target INR is2.5-3.5 for patients wiht mechanical heart valves.POCT-GLUCOSE [id number] 21:16:00 Test Item Value Reference Range Interpretation Comments POC-GLUCOSE METER 125 mg/dL 70-110 H : TESTED A T [facility] 6720 (BEAKER) (test code = [place], [address]) [id number]: Fur Finisher/Techni logan ID = [id number] for DE NNIS, ANNIE POCT-GLUCOSE [id number] 18:00:00 Test Item Value Reference Range Interpretation Comments POC-GLUCOSE METER 126 mg/dL 70-110 H : TESTED A T [facility] 6720 ([employer]) (test code = [place], [address]38) [id number]: Fur Finisher/Techni logan ID = [id number] for RO MAMIE SHIRLEY 2D Echo W/Doppler(CW/PW/Color)2019-11-30 17:12:06Ejection FractionSLEH ECHO HEARTLAB MKCKESSON CPACSInterface, External Ris In - 11/30/2019 5:12 PM C DTTransthoracic Echocardiography Report (TTE) Demographics Patient Name QUIANA VALLADARES Date ofStudy 11/30/2019 KARINA Gender Female Visit Number [id number] Race Room Number 2223 Number Date of 1955 Referring Physician Briseida blunt MD Age 64 year(s) Swager Operator Viola Hargrove Interpreting Donato Beth MD Physician Procedure Type of Study TTE procedure:2DSHAMIRO Charlie SHEPHERD(CW/PW/COLOR) (Routine) Indications:Suspected cardiac source of emboli.Clinical HistoryFormer Smoker, R/L Cath (11/01/19), TAVR (11/22/19), Colon Cancer, DMII, HTNContrast Medium: Bubble Study.Height: 65 inches Weight: 50.35 kg (111 lbs) BSA: 1.54 m^2 BMI: 18.47 kg/m^2HR: 54 bpm BP: 104/65 mmHg Summary 1. The left ventricle is chamber size (by vol index) is mildly enlarged. Normal LV wall thickness. All of the LV segments have low normal contractility . Estimated LVEF by qualitative assessment islower limits of normal (50-55%). Grade 1 diastolic dysfunction (impaired relaxation with mildly elevated LA pressure). 2. Normal right ventricle structure and function. Normal right atrium. Unable to estimate peak systolic PA pressure; inadequate TR velocity signal. 3. A percutaneous (TAVR) biologicAoV prosthesis is visualized and appears well-seated with [...] size (by vol index) is mildly enlarged (female- LVED 62-70ml/m2). Normal LV wall thickness. All of the LV segments have low normal contractility . Estimated LVEF by qualitative assessment is lower limits of normal (50-55%) . Grade 1 diastolic dysfunction (impaired relaxation with mildly elevated LA pressure). Left AtriumLA size is normal . Right Ventricle Normal right ventricle structure and function. Right Atrium Normal right atrium. Atrial Septum Hypermobile, redundant interatrial septumis noted. IV saline contrast injection demonstrates a PFO (patent foramen ovale) at rest and post Valsalva . Aortic Valve A percutaneous (TAVR) biologic AoV prosthesis is visualized . The prosthetic AoV appears well-seated with normal function by Doppler. Prosthetic AoV regurgitaton is mild . Prosthetic AR locations(s) are paravalvular at approximately 5 o''clock. . AoV dimensionless obstructive index (DOI)) is 0.5. Peak Grad;16 mmHg,Mean Grad; 8 mmHg. Mitral Valve Mild MV leaflet thickening. Trace mitral regurgitation. Tricuspid Valve A trace of tricuspid regurgitation. Unable to estimate peak systolic PA pressure; inadequate TR velocity signal. Pulmonic Valve Normal PV structure and function by limited views and Doppler. Pericardium No evidence of pericardial effusion. IVC/SVC/PA/PV/Pleural The estimated RA pressure by IVC dynamics 5-10mmHg . Tania mbers/Structures Left Atrium LA Volume: 36.04 ml LA [...] MV Peak A-Wave: 1.04 m/s E/A Ratio: 0.78 Peak Gradient: 2.59 mmHg Deceleration Time: 237.9 msec MV Michael. Peak: Tissue Doppler E' Lateral Velocity: 0.07 m/s E/E': 11.52Aortic Valve Peak Velocity: 2 m/s Mean Velocity: 1.31 m/s Peak Gradient: 15.98 mmHg Mean Gradient: 7.99 mmHg AV Area (continuity): 1.42 cm^2 AV VTI: 45.35 cm AV DVI: 0.5 LVOT Peak Velocity: 0.78 m/s Peak Gradient: 2.41 mmHg Mean Velocity: 0.52 m/s Mean Gradient: 1.26 mmHg LVOT Diameter: 1.91 cm LVOT VTI: 22.53 cm LVOT Area: 2.87 cm^2 LVOT SV:64.52 ml LVOT CO: 3.48 l/min LVOT CI: 2.26 l/min/m^2CH[facility] HospitalAPTT2020-[facility] 16:10:00 Test Item Value Reference Range Interpretation Comments PARTIAL THROMBOPLASTIN TIME 28.0 seconds 22.5-36.0 (BEAKER) (test code = 760) POCT-GLUCOSE [id number] 12:43:00 Test Item Value Reference Range Interpretation Comments POC-GLUCOSE METER 94 mg/dL 70-110 : TESTED A T [facility] 6720 (BEAKER) ([facility] = [facility] [place], [address]) [id number]: Fur Finisher/Techni logan ID = [id number] for MAMIE RIGGS POCT-GLUCOSE [id number] 08:13:00 Test Item Value Reference Range Interpretation Comments POC-GLUCOSE METER 121 mg/dL 70-110 H : TESTED A T [facility] 6720 (BEAKER) (test code = [place] [facility], 1538) [id number]: Fur Finisher/Techni logan ID = [id number] for MAMIE UMAÑA [id number] 04:38:00 Test Item Value Reference Range Interpretation Comments PARTIAL THROMBOPLASTIN TIME 42.1 seconds 22.5-36.0 H (BEAKER) (test code = 760) CBC (HEMOGRAM ONLY)2019-11-30 04:22:00 Test Item Value Reference Range Interpretation Comments WHITE BLOOD CELL COUNT (BEAKER) 6.4 K/ L 3.5-10.5 (test code = 775) RED BLOOD CELL COUNT (BEAKER) 3.26 M/ L 3.93-5.22 L (test code = 761) HEMOGLOBIN (BEAKER) (test code = 11.2 GM/DL 11.2-15.7 410) HEMATOCRIT (BEAKER) (test code = 33.2 % 34.1-44.9 L 411) MEAN CORPUSCULAR VOLUME (BEAKER) 101.8 fL 79.4-94.8 H (test code = 753) MEAN CORPUSCULAR HEMOGLOBIN 34.4 pg 25.6-32.2 H (BEAKER) (test code = 751) MEAN CORPUSCULAR HEMOGLOBIN CONC 33.7 GM/DL 32.2-35.5 (BEAKER) (test code = 752) RED CELL DISTRIBUTION WIDTH 13.7 % 11.7-14.4 (BEAKER) (test code = 412) PLATELET COUNT (BEAKER) (test 272 K/CU MM 150-450 code = 756) MEAN PLATELET VOLUME (BEAKER) 9.4 fL 9.4-12.3 (test code = 754) NUCLEATED RED BLOOD CELLS 0 /100 WBC 0-0 (BEAKER) (test code = 413) MR, MRA, BRAIN, WITHOUT [id number] 23:14:00Reason for exam:->Ischemic Stroke EvaluationFINAL REPORT MR, BRAIN, WITHOUT CONTRAST, MR, MRA, NECK, WITHOUT IV CONTRAST, MR, MRA, BRAIN, WITHOUT CONTRAST INDICATION: Ischemic Stroke Evaluationthalamic stroke on CT TECHNIQUE: Multiplanar, multisequence MR images of the brain. 3-D time of flight MRA of the cranial and cervical circulation. 2-D time of flight MRA of the neck. 3D MIP angiographic post-processing was performed. Stenosis evaluation utilized NASCET criteria. COMPARISON: Noncontrast brain CT of the same date FINDINGS: MRI BRAIN: Well-demarcated 2 cm DWI hyperintensity within the medial left thalamus associated with T2 FLAIR hyperintensity. Additional 3 mm infarct within the right parietal subcortical white matter. No midline shift or hydrocephalus. No acute intracranial hemorrhage. Etob-vo-etmztgua nonspecific supratentorial and infratentorial white matter T2 FLAIR hyperintensities. Orbits, globes, paranasal sinuses, mastoid air cells and calvarium are unremarkable. MRA BRAIN:Internal carotid arteries: Patent. Middle cerebral arteries: Patent to distal branches.Anterior cerebral arteries: Intact.Basilar system: Patent vertebrobasilar system.Posterior cerebral arteries:Patent beyond the quadrigeminalsegments.Additional findings: None. MRA NECK:Common carotid arteries: Unremarkable. Bifurcations: Noflow-limiting stenosis. Cervical internal carotid arteries: No flow limiting stenosis.Vertebral arteries: Codominant. No origin or extracranial stenosis. IMPRESSION: Left thalamic acute ischemic infarct. Additional 3 mm right parietal lobe subcortical acute infarct. Mild to moderate chronic microvascular ischemic changes No flow limiting stenosis in the major branch vessels of the cervical or cranial circulation. Signed: Silvano Bruce MDReport Verified Date/Time: 11/29/2019 23:14:20 MR, MRA, NECK, WITHOUT IV [id number] 23:14:00Reason for exam:->Ischemic Stroke EvaluationFINAL REPORT MR, BRAIN, WITHOUT CONTRAST, MR, MRA, NECK, WITHOUT IV CONTRAST, MR, MRA, BRAIN, WITHOUT CONTRAST INDICATION: Ischemic Stroke Evaluationthalamic stroke on CT TECHNIQUE: Multiplanar, multisequence MR images of the brain. 3-D time of flight MRA of the cranial and cervical circulation. 2-D time of flight MRA of the neck. 3D MIP angiographic post-processing was performed. Stenosis evaluation utilized NASCET criteria. COMPARISON: Noncontrast brain CT of the same date FINDINGS: MRI BRAIN: Well-demarcated 2 cm DWI hyperintensity within the medial left thalamus associated with T2 FLAIR hyperintensity. Additional 3 mm infarct within the right parietal subcortical white matter. No midline shift or hydrocephalus. No acute intracranial hemorrhage. Sdmd-ig-utferhck nonspecific supratentorial and infratentorial white matter T2 FLAIR hyperintensities. Orbits, globes, paranasal sinuses, mastoid air cells and calvarium are unremarkable. MRA BRAIN:Internal carotid arteries: Patent. Middle cerebral arteries: Patent to distal branches.Anterior cerebral arteries: Intact.Basilar system: Patent vertebrobasilar system.Posterior cerebral arteries:Patent beyond the quadrigeminalsegments.Additional findings: None. MRA NECK:Common carotid arteries: Unremarkable. Bifurcations: Noflow-limiting stenosis. Cervical internal carotid arteries: No flow limiting stenosis.Vertebral arteries: Codominant. No origin or extracranial stenosis. IMPRESSION: Left thalamic acute ischemic infarct. Additional 3 mm right parietal lobe subcortical acute infarct. Mild to moderate chronic microvascular ischemic changes No flow limiting stenosis in the major branch vessels of the cervical or cranial circulation. Signed: Silvano Bruce MDReport Verified Date/Time: 11/29/2019 23:14:20 MR, BRAIN, WITHOUT [id number] 23:14:00Reason for exam:->Ischemic Stroke EvaluationFINAL REPORT MR, BRAIN, WITHOUT CONTRAST, MR, MRA, NECK, WITHOUT IV CONTRAST, MR, MRA, BRAIN, WITHOUT CONTRAST INDICATION: Ischemic Stroke Evaluationthalamic stroke on CT TECHNIQUE: Multiplanar, multisequence MR images of the brain. 3-D time of flight MRA of the cranial and cervical circulation. 2-D time of flight MRA of the neck. 3D MIP angiographic post-processing was performed. Stenosis evaluation utilized NASCET criteria. COMPARISON: Noncontrast brain CT of the same date FINDINGS: MRI BRAIN: Well- demarcated 2 cm DWI hyperintensity within the medial left thalamus associated with T2 FLAIR hyperintensity. Additional 3 mm infarct within the right parietal subcortical white matter. No midline shift or hydrocephalus. No acute intracranial hemorrhage. Wjxr-xq-irngrigj nonspecific supratentorial and infratentorial white matter T2 FLAIR hyperintensities. Orbits, globes, paranasal sinuses, mastoid air cells and calvarium are unremarkable. MRA BRAIN:Internal carotid arteries: Patent. Middle cerebral arteries: Patent to distal branches.Anterior cerebral arteries: Intact.Basilar system: Patent vertebrobasilar system.Posterior cerebral arteries:Patent beyond the quadrigeminalsegments.Additional findings: None. MRA NECK:Common carotid arteries: Unremarkable. Bifurcations: Noflow-limiting stenosis. Cervical internal carotid arteries: No flow limiting stenosis.Vertebral arteries: Codominant. No origin or extracranial stenosis. IMPRESSION: Left thalamic acute ischemic infarct. Additional 3 mm right parietal lobe subcortical acute infarct. Mild to moderate chronic microvascular ischemic changes No flow limiting stenosis in the major branch vessels of the cervical or cranial circulation. Signed: Silvano Bruce MDReport Verified Date/Time: 11/29/2019 23:14:20 MRA head without IV [id number] 23:14:00Interface, External Ris In - 11/29/2019 11:16 PM CDTFINAL REPORT MR, BRAIN,WITHOUT CONTRAST, MR, MRA, NECK, WITHOUT IV CONTRAST, MR, MRA, BRAIN, WITHOUT CONTRAST INDICATION: Ischemic Stroke Evaluationthalamic stroke on CT TECHNIQUE: Multiplanar, multisequence MR images of thebrain. 3-D time of flight MRA of the cranial and cervical circulation. 2-D time of flight MRA of the neck. 3D MIP angiographic post-processing was performed. Stenosis evaluation utilized NASCET criteria. COMPARISON: Noncontrast brain CT of the same date FINDINGS: MRI BRAIN: Well-demarcated 2 cm DWI hyperintensity within the medial left thalamus associated with T2 FLAIR hyperintensity. Additional 3 mm infarct within the right parietal subcortical white matter. No midline shift or hydrocephalus. No a cute intracranial hemorrhage. Bnbk-oz-zmjivmua nonspecific supratentorial and infratentorial white matter T2 FLAIR hyperintensities. Orbits, globes, paranasal sinuses, mastoid air cells and calvarium are unremarkable. MRA BRAIN:Internal carotid arteries: Patent. Middle cerebral arteries: Patent to distal branches.Anterior cerebral arteries: Intact.Basilar system: Patent vertebrobasilar system.Posterior cerebral arteries:Patent beyond the quadrigeminal segments.Additional findings: None. MRA NECK:Common carotid arteries: Unremarkable. Bifurcations: No flow-limiting stenosis. Cervical internal carotid arteries: No flow limiting stenosis.Vertebral arteries: Codominant. No origin or extracranial stenosis. IMPRESSION: Left thalamic acute ischemic infarct. Additional 3 mm right parietal lobe subcortical acute infarct. Mild to moderate chronic microvascular ischemic changes No flow limiting stenosis in the major branch vessels of the cervical or cranial circulation. Signed: Silvano Bruce MDReport Verified Date/Time: 11/29/2019 23:14:20 [facility] [id number] 23:14:00Interface, External Ris In - 11/29/2019 11:16 PM CDTFINAL REPORT MR, BRAIN,WITHOUT CONTRAST, MR, MRA, NECK, WITHOUT IV CONTRAST, MR, MRA, BRAIN, WITHOUT CONTRAST INDICATION: Ischemic Stroke Evaluationthalamic stroke on CT TECHNIQUE: Multiplanar, multisequence MR images of thebrain. 3-D time of flight MRA of the cranial and cervical circulation. 2-D time of flight MRA of the neck. 3D MIP angiographic post-processing was performed. Stenosis evaluation utilized NASCET criteria. COMPARISON: Noncontrast brain CT of the same date FINDINGS: MRI BRAIN: Well-demarcated 2 cm DWI hyperintensity within the medial left thalamus associated with T2 FLAIR hyperintensity. Additional 3 mm infarct within the right parietal subcortical white matter. No midline shift or hydrocephalus. No acute intracranial hemorrhage. Mqbt-is-vungkpsn nonspecific supratentorial and infratentorial white matter T2 FLAIR hyperintensities. Orbits, globes, paranasal sinuses, mastoid air cells and calvarium are unremarkable. MRA BRAIN:Internal carotid arteries: Patent. Middle cerebral arteries: Patent to distal branches.Anterior cerebral arteries: Intact.Basilar system: Patent vertebrobasilar system.Posterior cerebral arteries:Patent beyond the quadrigeminal segments.Additional findings: None. MRA NECK:Common carotid arteries: Unremarkable. Bifurcations: No flow-limiting stenosis. Cervical internal carotid arteries: No flow limiting stenosis.Vertebral arteries: Codominant. No origin or extracranial stenosis. IMPRESSION: Left thalamic acute ischemic infarct. Additional 3 mm right parietal lobe subcortical acute infarct. Mild to moderate chronic microvascular ischemic changes No flow limiting stenosis in the major branch vessels of the cervical or cranial circulation. Signed: Silvano Bruce MDRadamort Verified Date/Time: 11/29/2019 23:14:20 [facility] [id number] 23:14:00Interface, External Ris In - 11/29/2019 11:16 PM CDTFINAL REPORT MR, BRAIN,WITHOUT CONTRAST, MR, MRA, NECK, WITHOUT IV CONTRAST, MR, MRA, BRAIN, WITHOUT CONTRAST INDICATION: Ischemic Stroke Evaluationthalamic stroke on CT TECHNIQUE: Multiplanar, multisequence MR images of thebrain. 3-D time of flight MRA of the cranial and cervical circulation. 2-D time of flight MRA of the neck. 3D MIP angiographic post-processing was performed. Stenosis evaluation utilized NASCET criteria. COMPARISON: Noncontrast brain CT of the same date FINDINGS: MRI BRAIN: Well-demarcated 2 cm DWI hyperintensity within the medial left thalamus associated with T2 FLAIR hyperintensity. Additional 3 mm infarct within the right parietal subcortical white matter. No midline shift or hydrocephalus. No acute intracranial hemorrhage. Buvx-ll-hvmpzclh nonspecific supratentorial and infratentorial white matter T2 FLAIR hyperintensities. Orbits, globes, paranasal sinuses, mastoid air cells and calvarium are unremarkable. MRA BRAIN:Internal carotid arteries: Patent. Middle cerebral arteries: Patent to distal branches.Anterior cerebral arteries: Intact.Basilar system: Patent vertebrobasilar system.Posterior cerebral arteries:Patent beyond the quadrigeminal segments.Additional findings: None. MRA NECK:Common carotid arteries: Unremarkable. Bifurcations: No flow-limiting stenosis. Cervical internal carotid arteries: No flow limiting stenosis.Vertebral arteries: Codominant. No origin or extracranial stenosis. IMPRESSION: Left thalamic acute ischemic infarct. Additional 3 mm right parietal lobe subcortical acute infarct. Mild to moderate chronic microvascular ischemic changes No flow limiting stenosis in the major branch vessels of the cervical or cranial circulation. Signed: Silvano Bruce MDReport Verified Date/Time: 11/29/2019 23:14:20 [facility] If [id number] 22:52:00 Test Item Value Reference Range Interpretation Comments TSH (test code = 29311-0) 0.87 0.35- 4.94 uIU/mL JANETTE (test code = JANETTE) Fur Finisher ID - DB Lab Interpretation (test Normal code = 69234-0) [facility] [id number] 22:52:00 Test Item Value Reference Range Interpretation Comments Vitamin B12 (test code = 335 pg/mL 823-710 1491-9) Folate (test code = 2284-8) 11.7 ng/mL >=7.0 JANETTE (test code = JANETTE) Fur Finisher ID - DB Lab Interpretation (test Normal code = 94058-6) [facility] T4 IF [id number] 22:52:00 Test Item Value Reference Range Interpretation Comments THYROID STIMULATING HORMONE 0.87 uIU/mL 0.35-4.94 (BEAKER) (test code = 772) Fur Finisher ID - DBVITAMIN B12 AND [id number] 22:52:00 Test Item Value Reference Range Interpretation Comments VITAMIN B12 (BEAKER) (test code = 335 pg/mL 213-816 774) FOLATE (BEAKER) (test code = 362) 11.7 ng/mL >=7.0 Fur Finisher ID - DBHemoglobin [id number] 22:12:00 Test Item Value Reference Range Interpretation Comments Hemoglobin A1C (test code = 4548-4) 5.7 % 4.3-6.1 Lab Interpretation (test code = Normal 99872-9) [facility] [id number] 22:12:00 Test Item Value Reference Range Interpretation Comments HEMOGLOBIN A1C (BEAKER) (test code = 5.7 % 4.3-6.1 368) Lipid [id number] 21:49:00 Test Item Value Reference Range Interpretation Comments Triglycerides (test 143 mg/dL code = 2571-8) Cholesterol (test code 158 mg/dL = 2093-3) HDL (test code = 45 mg/dL 5-9) LDL Calculated (test 84 mg/dL code = 07154-8) JANETTE (test code = JANETTE) Triglyceride Reference Range: Low Risk <150 Borderline 150-199 High Risk 200-499 Very High Risk >=500 Cholesterol Reference Range: Low Risk <200 Borderline 200-239 High Risk >240 HDL Cholesterol Reference Range: Low Risk >=60 High Risk <40 LDL Cholesterol Reference Range: Optimal <100 Near Optimal 100-129 Borderline 130-159 High 160-189 Very High >=190 Fur Finisher ID - DB [facility] [id number] 21:49:00 Test Item Value Reference Range Interpretation Comments TRIGLYCERIDES (BEAKER) (test code = 143 mg/dL 540) CHOLESTEROL (BEAKER) (test code = 158 mg/dL 631) HDL CHOLESTEROL (BEAKER) (test code 45 mg/dL = 976) LDL CHOLESTEROL CALCULATED ([facility]) 84 mg/dL (test code = 633) Triglyceride Reference Range: Low Risk <150 Borderline 150-199 High Risk 200-499 Very High Risk >=500Cholesterol Reference Range: Low Risk <200 Borderline 200-239 High Risk >240HDL Cholesterol Reference Range: Low Risk >=60 High Risk <40LDL Cholesterol Reference Range: Optimal <100 Near Optimal 100-129 Borderline 130-159 High 160-189 Very High >=190 Fur Finisher ID - [id number] 21:41:00 Test Item Value Reference Range Interpretation Comments PARTIAL THROMBOPLASTIN TIME 29.8 seconds 22.5-36.0 (BEAKER) (test code = 760) 6 hours after starting heparin infusion and as indicated per sliding scale Platelet [id number] 21:32:00 Test Item Value Reference Range Interpretation Comments Platelets (test code = 256 150- 450 K/CU MM 777-3) JANETTE (test code = JANETTE) Fur Finisher ID - [id number] Lab Interpretation (test Normal code = 99422-3) [facility]ATELET [id number] 21:32:00 Test Item Value Reference Range Interpretation Comments PLATELET COUNT (BEAKER) (test 256 K/CU MM 150-450 code = 756) Fur Finisher ID - [id number]-GLUCOSE [id number] 20:07:00 Test Item Value Reference Range Interpretation Comments POC-GLUCOSE METER 114 mg/dL 70-110 H : TESTED A T [facility] 6720 (BEAKER) (test code = [facility], 1538) 88594: Fur Finisher/Techni logan ID = [id number] for AZIZA HILTON POCT-GLUCOSE [id number] 12:13:00 Test Item Value Reference Range Interpretation Comments POC-GLUCOSE METER 142 mg/dL 70-110 H : TESTED A T [facility] 6720 (BEAKER) (test code = [facility], 1538) 86395: Fur Finisher/Techni logan ID = [id number] for RAJESH MIMS POCT-GLUCOSE [id number] 08:40:00 Test Item Value Reference Range Interpretation Comments POC-GLUCOSE METER 93 mg/dL 70-110 : TESTED A T [facility] 6720 (BEAKER) (test code = [facility], 1538) 53663: Fur Finisher/Techni logan ID = [id number] for MURIEL MORRISSEYWITHA [id number] 06:28:00 Test Item Value Reference Range Interpretation Comments Magnesium (test code = 2.1 mg/dL 1.6-2.6 41257-1) JANETTE (test code = JANETTE) Fur Finisher ID - DB Lab Interpretation (test Normal code = 83582-8) [facility]osphorus[facility] 06:28:00 Test Item Value Reference Range Interpretation Comments Phosphorus (test code = 4.3 mg/dL 2.3-4.7 2777-1) JANETTE (test code = JANETTE) Fur Finisher ID - DB Lab Interpretation (test Normal code = 46537-2) [facility]PHOSPHORUS2020-03-29 06:28:00 Test Item Value Reference Range Interpretation Comments PHOSPHORUS (BEAKER) (test code = 4.3 mg/dL 2.3-4.7 604) Fur Finisher ID - [id number] 06:28:00 Test Item Value Reference Range Interpretation Comments MAGNESIUM (BEAKER) (test code = 2.1 mg/dL 1.6-2.6 627) Fur Finisher ID - DBBASIC METABOLIC [id number] 06:28:00 Test Item Value Reference Range Interpretation Comments SODIUM (BEAKER) 140 meq/L 136-145 (test code = 381) POTASSIUM (BEAKER) 3.8 meq/L 3.5-5.1 (test code = 379) CHLORIDE (BEAKER) 109 meq/L 98-107 H (test code = 382) CO2 (BEAKER) (test 22 meq/L 22-29 code = 355) BLOOD UREA NITROGEN 18 mg/dL 7-21 (BEAKER) (test code = 354) CREATININE (BEAKER) 0.81 mg/dL 0.57-1.25 (test code = 358) GLUCOSE RANDOM 109 mg/dL 70-105 H (BEAKER) (test code = 652) CALCIUM (BEAKER) 9.5 mg/dL 8.4-10.2 (test code = 697) EGFR (BEAKER) (test 72 mL/min/1.73 ESTIMA AMANDA GFR IS code = 1092) sq m NOT ACCURATE CREATININE CLEARANCE IN PREDICTING GLOMERULAR FILTRATION RATE . ESTIMATED GFR I S NOT APPLICABLE FOR DIALYSIS PATIEN TS. Fur Finisher ID - [id number] 05:12:00 Test Item Value Reference Range Interpretation Comments PARTIAL THROMBOPLASTIN TIME 30.3 seconds 22.5-36.0 (BEAKER) (test code = 760) PROTHROMBIN [id number] 05:11:00 Test Item Value Reference Range Interpretation Comments PROTIME (BEAKER) (test code = 12.8 seconds 11.9-14.2 759) INR (BEAKER) (test code = 370) 1.0 <=5.9 Effective 01/25/2019: PT Reference Range ChangeNew: 11.9-14.2 Previous: 11.7- 14.7RECOMMENDED COUMADIN/WARFARIN INR THERAPY RANGESSTANDARD DOSE: 2.0-3.0 Includes: PROPHYLAXIS for venous thrombosis, systemic embolization; TREATMENT for venous thrombosis and/or pulmonary embolus.HIGH RISK: Target INR is2.5-3.5 for patients wiht mechanical heart valves.CBC (HEMOGRAM ONLY)2019-11-26 05:07:00 Test Item Value Reference Range Interpretation Comments WHITE BLOOD CELL COUNT (BEAKER) 6.8 K/ L 3.5-10.5 (test code = 775) RED BLOOD CELL COUNT (BEAKER) 3.46 M/ L 3.93-5.22 L (test code = 761) HEMOGLOBIN (BEAKER) (test code = 11.5 GM/DL 11.2-15.7 410) HEMATOCRIT (BEAKER) (test code = 35.9 % 34.1-44.9 411) MEAN CORPUSCULAR VOLUME (BEAKER) 103.8 fL 79.4-94.8 H (test code = 753) MEAN CORPUSCULAR HEMOGLOBIN 33.2 pg 25.6-32.2 H (BEAKER) (test code = 751) MEAN CORPUSCULAR HEMOGLOBIN CONC 32.0 GM/DL 32.2-35.5 L (BEAKER) (test code = 752) RED CELL DISTRIBUTION WIDTH 14.2 % 11.7-14.4 (BEAKER) (test code = 412) PLATELET COUNT (BEAKER) (test 197 K/CU MM 150-450 code = 756) MEAN PLATELET VOLUME (BEAKER) 9.3 fL 9.4-12.3 L (test code = 754) NUCLEATED RED BLOOD CELLS 0 /100 WBC 0-0 (BEAKER) (test code = 413) POCT-GLUCOSE [id number] 21:38:00 Test Item Value Reference Range Interpretation Comments POC-GLUCOSE METER 141 mg/dL 70-110 H : TESTED A T [facility] 6720 (BEAKER) (test code = [facility], 153) 39347: Fur Finisher/Techni logan ID = [id number] for DANIELLE CARTER SE POCT-GLUCOSE [id number] 18:28:00 Test Item Value Reference Range Interpretation Comments POC-GLUCOSE METER 94 mg/dL 70-110 : TESTED A T [facility] 6720 (BEAKER) (test code = [facility], 153) 61968: Fur Finisher/Techni logan ID = [id number] for RAJESH MORRISSEY POCT-GLUCOSE [id number] 17:00:00 Test Item Value Reference Range Interpretation Comments POC-GLUCOSE METER 100 mg/dL 70-110 : TESTED A T [facility] 6720 (BEAKER) (test code = [facility], 153) 71632: Fur Finisher/Techni logan ID = [id number] for KELLY RUDOLPH POCT-GLUCOSE [id number] 12:02:00 Test Item Value Reference Range Interpretation Comments POC-GLUCOSE METER 196 mg/dL 70-110 H : TESTED A T [facility] 6720 (BEAKER) (test code = [facility] [place], 1538) 818[address]: Fur Finisher/Techni logan ID = [id number] for MOOKIE NTER, MURIELWITHA POCT-GLUCOSE [id number] 08:12:00 Test Item Value Reference Range Interpretation Comments POC-GLUCOSE METER 119 mg/dL 70-110 H : TESTED A T [facility] 6720 (BEAKER) (test code = [facility] [place], 1538) 67[address]: Fur Finisher/Techni logan ID = [id number] for MOOKIE NTER, HIWITHA [id number] 05:45:00 Test Item Value Reference Range Interpretation Comments PHOSPHORUS (BEAKER) (test code = 5.2 mg/dL 2.3-4.7 H 604) Fur Finisher ID - KESHIA [id number] 05:45:00 Test Item Value Reference Range Interpretation Comments MAGNESIUM (BEAKER) (test code = 1.9 mg/dL 1.6-2.6 627) Fur Finisher ID - KESHIA LBASIC METABOLIC [id number] 05:45:00 Test Item Value Reference Range Interpretation Comments SODIUM (BEAKER) 141 meq/L 136-145 (test code = 381) POTASSIUM (BEAKER) 3.7 meq/L 3.5-5.1 (test code = 379) CHLORIDE (BEAKER) 109 meq/L 98-107 H (test code = 382) CO2 (BEAKER) (test 22 meq/L 22-29 code = 355) BLOOD UREA NITROGEN 20 mg/dL 7-21 (BEAKER) (test code = 354) CREATININE (BEAKER) 0.94 mg/dL 0.57-1.25 (test code = 358) GLUCOSE RANDOM 122 mg/dL 70-105 H (BEAKER) (test code = 652) CALCIUM (BEAKER) 9.5 mg/dL 8.4-10.2 (test code = 697) EGFR (BEAKER) (test 60 mL/min/1.73 ESTIMA AMANDA GFR IS code = 1092) sq m NOT ACCURATE CREATININE CLEARANCE IN PREDICTING GLOMERULAR FILTRATION RATE . ESTIMATED GFR I S NOT APPLICABLE FOR DIALYSIS PATIEN TS. Fur Finisher ID - KESHIA LPROTHROMBIN TIME/[id number] 05:42:00 Test Item Value Reference Range Interpretation Comments PROTIME (BEAKER) (test code = 13.3 seconds 11.9-14.2 759) INR (BEAKER) (test code = 370) 1.0 <=5.9 Effective 01/25/2019: PT Reference Range ChangeNew: 11.9-14.2 Previous: 11.7- 14.7RECOMMENDED COUMADIN/WARFARIN INR THERAPY RANGESSTANDARD DOSE: 2.0-3.0 Includes: PROPHYLAXIS for venous thrombosis, systemic embolization; TREATMENT for venous thrombosis and/or pulmonary embolus.HIGH RISK: Target INR is2.5-3.5 for patients wiht mechanical heart valves.[id number] 05:42:00 Test Item Value Reference Range Interpretation Comments PARTIAL THROMBOPLASTIN TIME 30.4 seconds 22.5-36.0 (BEAKER) (test code = 760) CBC (HEMOGRAM ONLY)2019-11-25 05:08:00 Test Item Value Reference Range Interpretation Comments WHITE BLOOD CELL COUNT (BEAKER) 7.5 K/ L 3.5-10.5 (test code = 775) RED BLOOD CELL COUNT (BEAKER) 3.38 M/ L 3.93-5.22 L (test code = 761) HEMOGLOBIN (BEAKER) (test code = 11.5 GM/DL 11.2-15.7 410) HEMATOCRIT (BEAKER) (test code = 35.0 % 34.1-44.9 411) MEAN CORPUSCULAR VOLUME (BEAKER) 103.6 fL 79.4-94.8 H (test code = 753) MEAN CORPUSCULAR HEMOGLOBIN 34.0 pg 25.6-32.2 H (BEAKER) (test code = 751) MEAN CORPUSCULAR HEMOGLOBIN CONC 32.9 GM/DL 32.2-35.5 (BEAKER) (test code = 752) RED CELL DISTRIBUTION WIDTH 14.6 % 11.7-14.4 H (BEAKER) (test code = 412) PLATELET COUNT (BEAKER) (test 184 K/CU MM 150-450 code = 756) MEAN PLATELET VOLUME (BEAKER) 9.5 fL 9.4-12.3 (test code = 754) NUCLEATED RED BLOOD CELLS 0 /100 WBC 0-0 (BEAKER) (test code = 413) POCT-GLUCOSE [id number] 21:27:00 Test Item Value Reference Range Interpretation Comments POC-GLUCOSE METER 139 mg/dL 70-110 H : TESTED A T [facility] 6720 (BEAKER) (test code = [facility], 1538) 53696: Fur Finisher/Techni logan ID = [id number] for DANIELLE CARTER SE POCT-GLUCOSE [id number] 12:27:00 Test Item Value Reference Range Interpretation Comments POC-GLUCOSE METER 149 mg/dL 70-110 H : TESTED A T [facility] 6720 (BEAKER) (test code = LORELEI Jordan [facility], 1538) 81137: Fur Finisher/Techni logna ID = [id number] for KELLY RUDOLPH CT, BRAIN, WITHOUT [id number] 11:04:00FINAL REPORT CT Head without contrast CLINICAL HISTORY: Altered mental status TECHNIQUE: Contiguous axial CT images through the head [...] 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 There is no gross evidence for intracranial hemorrhage. There is generalized parenchymal volume loss without hydrocephalus or midline shift. There are atherosclerotic calcifications of the intracranial circulation. The skull appears intact. IMPRESSION: Motion degraded exam as discussed above. Repeat imaging is recommended when the patient is better able to hold still. 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 There is no gross evidence for intracranial hemorrhage. There is generalized parenchymal volume loss without hydrocephalus or midline shift. There are atherosclerotic calcifications of the intracranial circulation. Theskull appears intact. IMPRESSION: Motion degraded exam as discussed above. Repeat imaging is recommen ded when the patient is better able to hold still. Signed: Sabiha Iyer MDReport Verified Date/Time: 11/24/2019 11:04:11 Reading Location: [address] [facility] [id number] 08:10:00 Test Item Value Reference Range Interpretation Comments POC-GLUCOSE METER 112 mg/dL 70-110 H : TESTED A T [facility] 6720 (BEAKER) (test code = LORELEI Jordan [facility], 1538) 63207: Fur Finisher/Techni logan ID = [id number] for KELLY RUDOLPH [id number] 05:13:00 Test Item Value Reference Range Interpretation Comments PHOSPHORUS (BEAKER) (test code = 3.9 mg/dL 2.3-4.7 604) Fur Finisher ID - WILFRIDYANELY [id number] 05:13:00 Test Item Value Reference Range Interpretation Comments MAGNESIUM (BEAKER) (test code = 2.2 mg/dL 1.6-2.6 627) Fur Finisher ID - KESHIA LBASIC METABOLIC [id number] 05:13:00 Test Item Value Reference Range Interpretation Comments SODIUM (BEAKER) 141 meq/L 136-145 (test code = 381) POTASSIUM (BEAKER) 3.8 meq/L 3.5-5.1 (test code = 379) CHLORIDE (BEAKER) 109 meq/L 98-107 H (test code = 382) CO2 (BEAKER) (test 25 meq/L 22-29 code = 355) BLOOD UREA NITROGEN 9 mg/dL 7-21 (BEAKER) (test code = 354) CREATININE (BEAKER) 0.59 mg/dL 0.57-1.25 (test code = 358) GLUCOSE RANDOM 119 mg/dL 70-105 H (BEAKER) (test code = 652) CALCIUM (BEAKER) 9.3 mg/dL 8.4-10.2 (test code = 697) EGFR (BEAKER) (test 103 mL/min/1.73 ESTIM ATED GFR IS code = 1092) sq m NOT ACCURATE CREATININE CLEARANCE IN PREDICTING GLOMERULAR FILTRATION RATE . ESTIMATED GFR I S NOT APPLICABLE FOR DIALYSIS PATIEN TS. Fur Finisher ID - PIAYA [id number] 05:06:00 Test Item Value Reference Range Interpretation Comments PARTIAL THROMBOPLASTIN TIME 31.0 seconds 22.5-36.0 (BEAKER) (test code = 760) PROTHROMBIN TIME/[id number] 05:05:00 Test Item Value Reference Range Interpretation Comments PROTIME (BEAKER) (test code = 13.5 seconds 11.9-14.2 759) INR (BEAKER) (test code = 370) 1.1 <=5.9 Effective 01/25/2019: PT Reference Range ChangeNew: 11.9-14.2 Previous: 11.7- 14.7RECOMMENDED COUMADIN/WARFARIN INR THERAPY RANGESSTANDARD DOSE: 2.0-3.0 Includes: PROPHYLAXIS for venous thrombosis, systemic embolization; TREATMENT for venous thrombosis and/or pulmonary embolus.HIGH RISK: Target INR is2.5-3.5 for patients wiht mechanical heart valves.CBC (HEMOGRAM ONLY)2019-11-24 04:53:00 Test Item Value Reference Range Interpretation Comments WHITE BLOOD CELL COUNT (BEAKER) 7.2 K/ L 3.5-10.5 (test code = 775) RED BLOOD CELL COUNT (BEAKER) 3.43 M/ L 3.93-5.22 L (test code = 761) HEMOGLOBIN (BEAKER) (test code = 11.9 GM/DL 11.2-15.7 410) HEMATOCRIT (BEAKER) (test code = 35.6 % 34.1-44.9 411) MEAN CORPUSCULAR VOLUME (BEAKER) 103.8 fL 79.4-94.8 H (test code = 753) MEAN CORPUSCULAR HEMOGLOBIN 34.7 pg 25.6-32.2 H (BEAKER) (test code = 751) MEAN CORPUSCULAR HEMOGLOBIN CONC 33.4 GM/DL 32.2-35.5 (BEAKER) (test code = 752) RED CELL DISTRIBUTION WIDTH 14.6 % 11.7-14.4 H (BEAKER) (test code = 412) PLATELET COUNT (BEAKER) (test 150 K/CU MM 150-450 code = 756) MEAN PLATELET VOLUME (BEAKER) 9.4 fL 9.4-12.3 (test code = 754) NUCLEATED RED BLOOD CELLS 0 /100 WBC 0-0 (BEAKER) (test code = 413) POCT-GLUCOSE [id number] 21:40:00 Test Item Value Reference Range Interpretation Comments POC-GLUCOSE METER 89 mg/dL 70-110 : TESTED A T [facility] 6720 ([facility]) (test code = LORELEI Jordan [facility], 1538) 31911: Fur Finisher/Techni logan ID = [id number] for [place] DIAMOND 2D Echo W/Doppler(CW/PW/Color)2019-11-23 15:20:12Ejection FractionSLEH ECHO HEARTLAB MKCKESSON CPACSInterface, External Ris In - 11/23/2019 3:20 PM C DTTransthoracic Echocardiography Report (TTE) Demographics Patient Name QUIANA VALLADARES Date of Study 11/23/2019 KARINA Gender Female Visit Number [id number] Race Room Number 2CV24 Number Date of 1955 Referring Jonathan Morillo Physician MD Shantelle Age 64 year(s) 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 The left ventricle is chamber size (by vol index) is mildly enlarged. Normal LV wall thickness. All of the LV segments have low normal con tractility . Estimated LVEF by qualitative assessment is [...] changes are noted: S/P TAVR . Signature - Findings Technical Quality: Technically adequate exam. Left Ventricle The left ventricle is chamber size (by vol index) is mildly enlarged (female - LVED 62-70ml/m2). Normal LV wall thickness. All of the LV segments have low normal contractility . Estimated LVEF by qualitative assessment is lower limits of normal (50-55%) . Grade 1 diastolic dysfunction (impaired relaxation with mildly elevated LA pressure). Left Atrium LA size is normal . Right Ventricle Normal right ventricle structure and function. Right Atrium Normal right atrium. Aortic Valve A percutaneous (TAVR) biologic AoV prosthesis is visualized . The prosthetic AoV appears well-seated with normal function by Doppler. Prosthetic AoV regurgitaton is mild . Prosthetic AR locations(s) are paravalvular at approximately 5 o''clock. . AoV dimensionless obstructive index (DOI)) is 0.53 .Peak Grad; 17.7 mmHg,Mean Grad; 8.9 mmHg. Mitral Valve Mild MV leaflet thickening. Trace mitral regurgitation. Tricuspid Valve A trace of tricuspid regurgitation. Unable to estimate peak systolic PA pressure; inadequate TR velocity signal. Pulmonic Valve Normal PV structure and function by limited views and Doppler. Aorta Aortic root size (SInus of Valsalva diameter) is normal . Pericardium No evidence of pericardial effusion. IVC/SVC/PA/PV/Pleural The estimated RA pressure by IVC dynamics 5-10mmHg . Chambers/Structures Left Atrium LA Dimension: 3.96 cm LA Area: 19.35 cm^2 LA Volume: 52.32 ml LA Vol. Index:33 ml/m^2 Left Ventricle LVIDd: 4.56 cm LV Septum Diastolic: 1.08 cm LV PW Diastolic: 1.04 cm LVEDV Gutierrez's:107.07 ml LVESV Gutierrez's:58.21 ml LVEF Gutierrez's: 50.6 % LVEDVI: 68ml/m^2 LVESVI: 37 ml/m^2 LVOT Diameter: 1.78 cm Aorta Ao Root S of Xenia.: 3.15 cm Doppler/Quantitative Measurements Mitral Valve MV Peak E-Wave: 0.98 m/s MV Peak A-Wave: 1.03 m/s E/A Ratio: 0.95 Peak Gradient: 3.85 mmHg Deceleration Time: 283.4 msec MV Michael. Peak: Tissue Doppler E' Septal Velocity: 0.05 m/s A' Septal Velocity: 0.08 m/s E/E': 18.13 Aortic Valve Peak Velocity: 2.1 m/s Mean Velocity: 1.37 m/s Peak Gradient: 17.7 mmHg Mean Gradient: 8.92 mmHg AV Area (continuity): 1.31 cm^2 AV VTI: 45.48 cm AV DVI: 0.53 LVOT Peak Velocity: 1.06 m/s Peak Gradient: 4.5 mmHg Mean Velocity: 0.63 m/s Mean Gradient: 2.01 mmHg LVOT Diameter: 1.78 cm LVOT VTI: 23.88 cm LVOT Area: 2.49 cm^2 LVOT SV:59.39 ml LVOT CO: 3.98 l/min LVOT CI: 2.52 l/min/m^[facility] [id number] 13:43:00 Test Item Value Reference Range Interpretation Comments POC-GLUCOSE METER 100 mg/dL 70-110 : TESTED A T [facility] 6720 (BEAKER) (test code = [place], 1538) [address]: Fur Finisher/Techni logan ID = [id number] for KELLY RDUOLPH CBC with platelet count + automated [id number] 03:48:00 Test Item Value Reference Range Interpretation Comments WBC (test code = 6690-2) 6.4 3.5- 10.5 K/L RBC (test code = 789-8) 3.11 3.93- 5.22 M/L L MCHC (test code = 786-4) 32.9 32.2- 35.5 GM/DL L Hematocrit (test code = 4544-3) 31.9 % 34.1-44.9 L MCV (test code = 787-2) 102.6 fL 79.4-94.8 H MCH (test code = 785-6) 33.8 pg 25.6-32.2 H RDW (test code = 788-0) 14.6 % 11.7-14.4 H Platelets (test code = 777-3) 151 150- 450 K/CU MM MPV (test code = 31452-7) 8.9 fL 9.4-12.3 L nRBC (test code = 413) 0 0- 0 /100 WBC % Neutros (test code = 429) 86 % % Lymphs (test code = 430) 6 % % Monos (test code = 431) 7 % % Eos (test code = 432) 1 % % Baso (test code = 437) 0 % # Neutros (test code = 670) 5.52 1.56- 6.13 K/L # Lymphs (test code = 414) 0.40 1.18- 3.74 K/L L # Monos (test code = 415) 0.42 0.24- 0.36 K/L H # Eos (test code = 416) 0.05 0.04- 0.36 K/L # Baso (test code = 417) 0.01 0.01- 0.08 K/L Immature Granulocytes-Relative 1 % 0-1 (test code = 2801) Lab Interpretation (test code = Abnormal 43034-3) [facility] W/PLT COUNT & AUTO [id number] 03:48:00 Test Item Value Reference Range Interpretation Comments WHITE BLOOD CELL COUNT (BEAKER) 6.4 K/ L 3.5-10.5 (test code = 775) RED BLOOD CELL COUNT (BEAKER) 3.11 M/ L 3.93-5.22 L (test code = 761) HEMOGLOBIN (BEAKER) (test code = 10.5 GM/DL 11.2-15.7 L 410) HEMATOCRIT (BEAKER) (test code = 31.9 % 34.1-44.9 L 411) MEAN CORPUSCULAR VOLUME (BEAKER) 102.6 fL 79.4-94.8 H (test code = 753) MEAN CORPUSCULAR HEMOGLOBIN 33.8 pg 25.6-32.2 H (BEAKER) (test code = 751) MEAN CORPUSCULAR HEMOGLOBIN CONC 32.9 GM/DL 32.2-35.5 (BEAKER) (test code = 752) RED CELL DISTRIBUTION WIDTH 14.6 % 11.7-14.4 H (BEAKER) (test code = 412) PLATELET COUNT (BEAKER) (test 151 K/CU MM 150-450 code = 756) MEAN PLATELET VOLUME (BEAKER) 8.9 fL 9.4-12.3 L (test code = 754) NUCLEATED RED BLOOD CELLS 0 /100 WBC 0-0 (BEAKER) (test code = 413) NEUTROPHILS RELATIVE PERCENT 86 % (BEAKER) (test code = 429) LYMPHOCYTES RELATIVE PERCENT 6 % (BEAKER) (test code = 430) MONOCYTES RELATIVE PERCENT 7 % (BEAKER) (test code = 431) EOSINOPHILS RELATIVE PERCENT 1 % (BEAKER) (test code = 432) BASOPHILS RELATIVE PERCENT 0 % (BEAKER) (test code = 437) NEUTROPHILS ABSOLUTE COUNT 5.52 K/ L 1.56-6.13 (BEAKER) (test code = 670) LYMPHOCYTES ABSOLUTE COUNT 0.40 K/ L 1.18-3.74 L (BEAKER) (test code = 414) MONOCYTES ABSOLUTE COUNT (BEAKER) 0.42 K/ L 0.24-0.36 H (test code = 415) EOSINOPHILS ABSOLUTE COUNT 0.05 K/ L 0.04-0.36 (BEAKER) (test code = 416) BASOPHILS ABSOLUTE COUNT (BEAKER) 0.01 K/ L 0.01-0.08 (test code = 417) IMMATURE GRANULOCYTES-RELATIVE 1 % 0-1 PERCENT (BEAKER) (test code = 2801) [id number] 03:47:00 Test Item Value Reference Range Interpretation Comments PHOSPHORUS (BEAKER) (test code = 3.6 mg/dL 2.3-4.7 604) Fur Finisher ID - VARSHA [id number] 03:47:00 Test Item Value Reference Range Interpretation Comments MAGNESIUM (BEAKER) (test code = 2.2 mg/dL 1.6-2.6 627) Fur Finisher ID - VARSHA MBASIC METABOLIC [id number] 03:47:00 Test Item Value Reference Range Interpretation Comments SODIUM (BEAKER) 140 meq/L 136-145 (test code = 381) POTASSIUM (BEAKER) 3.6 meq/L 3.5-5.1 (test code = 379) CHLORIDE (BEAKER) 109 meq/L 98-107 H (test code = 382) CO2 (BEAKER) (test 24 meq/L 22-29 code = 355) BLOOD UREA NITROGEN 7 mg/dL 7-21 (BEAKER) (test code = 354) CREATININE (BEAKER) 0.55 mg/dL 0.57-1.25 L (test code = 358) GLUCOSE RANDOM 118 mg/dL 70-105 H (BEAKER) (test code = 652) CALCIUM (BEAKER) 8.5 mg/dL 8.4-10.2 (test code = 697) EGFR (BEAKER) (test 112 mL/min/1.73 ESTIM ATED GFR IS code = 1092) sq m NOT ACCURATE CREATININE CLEARANCE IN PREDICTING GLOMERULAR FILTRATION RATE . ESTIMATED GFR I S NOT APPLICABLE FOR DIALYSIS PATIEN TS. Fur Finisher ID - VARSHA [id number] 03:43:00 Test Item Value Reference Range Interpretation Comments PARTIAL THROMBOPLASTIN TIME 29.4 seconds 22.5-36.0 (BEAKER) (test code = 760) PROTHROMBIN [id number] 03:42:00 Test Item Value Reference Range Interpretation Comments PROTIME (BEAKER) (test code = 13.6 seconds 11.9-14.2 759) INR (BEAKER) (test code = 370) 1.1 <=5.9 Effective 01/25/2019: PT Reference Range ChangeNew: 11.9-14.2 Previous: 11.7- 14.7RECOMMENDED COUMADIN/WARFARIN INR THERAPY RANGESSTANDARD DOSE: 2.0-3.0 Includes: PROPHYLAXIS for venous thrombosis, systemic embolization; TREATMENT for venous thrombosis and/or pulmonary embolus.HIGH RISK: Target INR is2.5-3.5 for patients wiht mechanical heart valves.[id number] 14:03:00 Test Item Value Reference Range Interpretation Comments ACTIVATED CLOTTING TIME 400 sec : 74 -137 seconds, (BEAKER) (test code = Baseli ne: TESTED AT 441) [facility] [address] [place] [address], [facility] 30: Fur Finisher/Techni logan ID = [id number] for ALISON BROUSSARD [id number] 14:02:00 Test Item Value Reference Range Interpretation Comments ACTIVATED CLOTTING TIME 285 sec : 74 -137 seconds, (BEAKER) (test code = Baseli ne: TESTED AT 441) [address], [facility] 30: Fur Finisher/Techni logan ID = [id number] for ALISON BROUSSARD RAD, CHEST, 1 VIEW, NON [id number] 11:37:00Reason for exam:->Post-op TAVRShould this be performed at the bedside?->YesFINAL REPORT TECHNIQUE: Frontal chest radiograph dated 11/22/2019. CLINICAL HISTORY: Post op TAVR COMPARISON STUDY: Chest radiograph and chest CT both dated 10/30/2019 IMPRESSION:Right internal jugular venous catheter is seen with the tip projected over the region of the superior vena cava/right atrial junction. Right-sided MediPort is unchanged in position. Stable right upper lobe mass. No pleural effusion or pneumothorax. Cardiomediastinal silhouette is normal in size. An aortic valve stent is in place. No pulmonary edema. No fracture. Signed: Akbar Graham Verified Date/Time: 11/22/2019 11:37:14 Reading Location: [address] Radiology Reading Room [id number] 11:08:00 Test Item Value Reference Range Interpretation Comments PHOSPHORUS (BEAKER) (test code = 3.5 mg/dL 2.3-4.7 604) Fur Finisher ID - BRIONNA [id number] 11:08:00 Test Item Value Reference Range Interpretation Comments MAGNESIUM (BEAKER) (test code = 2.2 mg/dL 1.6-2.6 627) Fur Finisher ID Sheridan STATON FBASIC METABOLIC [id number] 11:08:00 Test Item Value Reference Range Interpretation Comments SODIUM (BEAKER) 139 meq/L 136-145 (test code = 381) POTASSIUM (BEAKER) 3.9 meq/L 3.5-5.1 (test code = 379) CHLORIDE (BEAKER) 108 meq/L 98-107 H (test code = 382) CO2 (BEAKER) (test 26 meq/L 22-29 code = 355) BLOOD UREA NITROGEN 10 mg/dL 7-21 (BEAKER) (test code = 354) CREATININE (BEAKER) 0.54 mg/dL 0.57-1.25 L (test code = 358) GLUCOSE RANDOM 122 mg/dL 70-105 H (BEAKER) (test code = 652) CALCIUM (BEAKER) 8.4 mg/dL 8.4-10.2 (test code = 697) EGFR (BEAKER) (test 114 mL/min/1.73 ESTIM ATED GFR IS code = 1092) sq m NOT ACCURATE CREATININE CLEARANCE IN PREDICTING GLOMERULAR FILTRATION RATE . ESTIMATED GFR I S NOT APPLICABLE FOR DIALYSIS PATIEN TS. Fur Finisher ID Sheridan STATON [id number] 11:06:00 Test Item Value Reference Range Interpretation Comments PARTIAL THROMBOPLASTIN TIME 29.9 seconds 22.5-36.0 (BEAKER) (test code = 760) PROTHROMBIN [id number] 11:05:00 Test Item Value Reference Range Interpretation Comments PROTIME (BEAKER) (test code = 13.3 seconds 11.9-14.2 759) INR (BEAKER) (test code = 370) 1.0 <=5.9 Effective 01/25/2019: PT Reference Range ChangeNew: 11.9-14.2 Previous: 11.7- 14.7RECOMMENDED COUMADIN/WARFARIN INR THERAPY RANGESSTANDARD DOSE: 2.0-3.0 Includes: PROPHYLAXIS for venous thrombosis, systemic embolization; TREATMENT for venous thrombosis and/or pulmonary embolus.HIGH RISK: Target INR is2.5-3.5 for patients wiht mechanical heart valves.CBC W/PLT COUNT & AUTO [id number] 11:03:00 Test Item Value Reference Range Interpretation Comments WHITE BLOOD CELL COUNT (BEAKER) 6.1 K/ L 3.5-10.5 (test code = 775) RED BLOOD CELL COUNT (BEAKER) 2.99 M/ L 3.93-5.22 L (test code = 761) HEMOGLOBIN (BEAKER) (test code = 10.6 GM/DL 11.2-15.7 L 410) HEMATOCRIT (BEAKER) (test code = 31.6 % 34.1-44.9 L 411) MEAN CORPUSCULAR VOLUME (BEAKER) 105.7 fL 79.4-94.8 H (test code = 753) MEAN CORPUSCULAR HEMOGLOBIN 35.5 pg 25.6-32.2 H (BEAKER) (test code = 751) MEAN CORPUSCULAR HEMOGLOBIN CONC 33.5 GM/DL 32.2-35.5 (BEAKER) (test code = 752) RED CELL DISTRIBUTION WIDTH 14.6 % 11.7-14.4 H (BEAKER) (test code = 412) PLATELET COUNT (BEAKER) (test 140 K/CU MM 150-450 L code = 756) MEAN PLATELET VOLUME (BEAKER) 9.0 fL 9.4-12.3 L (test code = 754) NUCLEATED RED BLOOD CELLS 0 /100 WBC 0-0 (BEAKER) (test code = 413) NEUTROPHILS RELATIVE PERCENT 80 % (BEAKER) (test code = 429) LYMPHOCYTES RELATIVE PERCENT 9 % (BEAKER) (test code = 430) MONOCYTES RELATIVE PERCENT 7 % (BEAKER) (test code = 431) EOSINOPHILS RELATIVE PERCENT 2 % (BEAKER) (test code = 432) BASOPHILS RELATIVE PERCENT 0 % (BEAKER) (test code = 437) NEUTROPHILS ABSOLUTE COUNT 4.93 K/ L 1.56-6.13 (BEAKER) (test code = 670) LYMPHOCYTES ABSOLUTE COUNT 0.57 K/ L 1.18-3.74 L (BEAKER) (test code = 414) MONOCYTES ABSOLUTE COUNT (BEAKER) 0.44 K/ L 0.24-0.36 H (test code = 415) EOSINOPHILS ABSOLUTE COUNT 0.13 K/ L 0.04-0.36 (BEAKER) (test code = 416) BASOPHILS ABSOLUTE COUNT (BEAKER) 0.01 K/ L 0.01-0.08 (test code = 417) IMMATURE GRANULOCYTES-RELATIVE 1 % 0-1 PERCENT (BEAKER) (test code = 2801) Blood gas, [id number] 10:54:00 Test Item Value Reference Range Interpretation Comments pH, Arterial (test code = 2744-1) 7.41 7.35-7.45 pCO2, Arterial (test code = 43 35- 45 mmHg 2019-03) pO2, Arterial (test code = 2703-7) 97 80- 90 mmHg H O2 Sat, Arterial (test code = 97.5 % 96-97 H 6) HCO3, Arterial (test code = 27 mmol/L 21-29 1959-4) Base Excess, Arterial (test code = 1.9 mmol/L -2-3 1925-7) Patient Temperature (test code = 36.8 C 8310-5) FIO2 (test code = 1819) 36 % Lab Interpretation (test code = Abnormal 12315-2) [facility] [id number] 10:54:00 Test Item Value Reference Range Interpretation Comments Hemoglobin (test code = 786-4) 11.0 g/dL 12-15 L Hematocrit (test code = 4544-3) 32.0 % 36-45 L Lab Interpretation (test code = Abnormal 49854-1) [facility] [id number] 10:54:00 Test Item Value Reference Range Interpretation Comments Glucose (test code = 2345-7) 121 mg/dL 70-110 H Lab Interpretation (test code = Abnormal 70282-2) [facility] [id number] 10:54:00 Test Item Value Reference Range Interpretation Comments PH ARTERIAL (BEAKER) (test code = 7.41 7.35-7.45 383) PCO2 ARTERIAL (BEAKER) (test code 43 mmHg 35-45 = 384) PO2 ARTERIAL (BEAKER) (test code = 97 mmHg 80-90 H 385) O2 SATURATION ARTERIAL (BEAKER) 97.5 % 96.0-97.0 H (test code = 386) HCO3 ARTERIAL (BEAKER) (test code 27 mmol/L 21-29 = 388) BASE EXCESS ARTERIAL (BEAKER) 1.9 mmol/L -2.0-3.0 (test code = 387) PATIENT TEMPERATURE (BEAKER) (test 36.8 C code = 1818) FIO2 (BEAKER) (test code = 1819) 36.0 % GLUCOSE-STAT [id number] 10:54:00 Test Item Value Reference Range Interpretation Comments GLUCOSE RANDOM (BEAKER) (test code 121 mg/dL 70-110 H = 652) HGB/HCT (H&H) - STAT [id number] 10:54:00 Test Item Value Reference Range Interpretation Comments HEMOGLOBIN (BEAKER) (test code = 11.0 g/dL 12.0-15.0 L 410) HEMATOCRIT (BEAKER) (test code = 32.0 % 36.0-45.0 L 411) Calcium, [id number] 10:53:00 Test Item Value Reference Range Interpretation Comments Calcium, Ion (test code = 1994-3) 1.14 mmol/L 1.12-1.27 pH, Blood (test code = 17698-3) 7.41 [facility] [id number] 10:53:00 Test Item Value Reference Range Interpretation Comments Sodium (test code = 2951-2) 137 meq/L 135-148 Lab Interpretation (test code = Normal 22335-2) [facility] [id number] 10:53:00 Test Item Value Reference Range Interpretation Comments Potassium (test code = 2823-3) 3.7 meq/L 3.6-5.5 Lab Interpretation (test code = Normal 42305-8) [facility] [id number] 10:53:00 Test Item Value Reference Range Interpretation Comments SODIUM (BEAKER) (test code = 381) 137 meq/L 135-148 POTASSIUM-STAT [id number] 10:53:00 Test Item Value Reference Range Interpretation Comments POTASSIUM (BEAKER) (test code = 3.7 meq/L 3.6-5.5 379) CALCIUM, [id number] 10:53:00 Test Item Value Reference Range Interpretation Comments CALCIUM IONIZED (BEAKER) (test 1.14 mmol/L 1.12-1.27 code = 698) PH, BLOOD (BEAKER) (test code = 7.41 1810) [id number] 05:57:00 Test Item Value Reference Range Interpretation Comments PHOSPHORUS (BEAKER) (test code = 3.5 mg/dL 2.3-4.7 604) Fur Finisher ID - VARSHA [id number] 05:57:00 Test Item Value Reference Range Interpretation Comments MAGNESIUM (BEAKER) (test code = 2.0 mg/dL 1.6-2.6 627) Fur Finisher ID - VARSHA MBASIC METABOLIC [id number] 05:57:00 Test Item Value Reference Range Interpretation Comments SODIUM (BEAKER) 141 meq/L 136-145 (test code = 381) POTASSIUM (BEAKER) 3.8 meq/L 3.5-5.1 (test code = 379) CHLORIDE (BEAKER) 109 meq/L 98-107 H (test code = 382) CO2 (BEAKER) (test 26 meq/L 22-29 code = 355) BLOOD UREA NITROGEN 10 mg/dL 7-21 (BEAKER) (test code = 354) CREATININE (BEAKER) 0.60 mg/dL 0.57-1.25 (test code = 358) GLUCOSE RANDOM 117 mg/dL 70-105 H (BEAKER) (test code = 652) CALCIUM (BEAKER) 9.0 mg/dL 8.4-10.2 (test code = 697) EGFR (BEAKER) (test 101 mL/min/1.73 ESTIM ATED GFR IS code = 1092) sq m NOT ACCURATE CREATININE CLEARANCE IN PREDICTING GLOMERULAR FILTRATION RATE . ESTIMATED GFR I S NOT APPLICABLE FOR DIALYSIS PATIEN TS. Fur Finisher ID - VARSHA [id number] 05:45:00 Test Item Value Reference Range Interpretation Comments PARTIAL THROMBOPLASTIN TIME 30.2 seconds 22.5-36.0 (BEAKER) (test code = 760) PROTHROMBIN [id number] 05:44:00 Test Item Value Reference Range Interpretation Comments PROTIME (BEAKER) (test code = 13.1 seconds 11.9-14.2 759) INR (BEAKER) (test code = 370) 1.0 <=5.9 Effective 01/25/2019: PT Reference Range ChangeNew: 11.9-14.2 Previous: 11.7- 14.7RECOMMENDED COUMADIN/WARFARIN INR THERAPY RANGESSTANDARD DOSE: 2.0-3.0 Includes: PROPHYLAXIS for venous thrombosis, systemic embolization; TREATMENT for venous thrombosis and/or pulmonary embolus.HIGH RISK: Target INR is2.5-3.5 for patients wiht mechanical heart valves.CBC W/PLT COUNT & AUTO [id number] 05:40:00 Test Item Value Reference Range Interpretation Comments WHITE BLOOD CELL COUNT (BEAKER) 4.7 K/ L 3.5-10.5 (test code = 775) RED BLOOD CELL COUNT (BEAKER) 3.19 M/ L 3.93-5.22 L (test code = 761) HEMOGLOBIN (BEAKER) (test code = 10.9 GM/DL 11.2-15.7 L 410) HEMATOCRIT (BEAKER) (test code = 33.3 % 34.1-44.9 L 411) MEAN CORPUSCULAR VOLUME (BEAKER) 104.4 fL 79.4-94.8 H (test code = 753) MEAN CORPUSCULAR HEMOGLOBIN 34.2 pg 25.6-32.2 H (BEAKER) (test code = 751) MEAN CORPUSCULAR HEMOGLOBIN CONC 32.7 GM/DL 32.2-35.5 (BEAKER) (test code = 752) RED CELL DISTRIBUTION WIDTH 14.6 % 11.7-14.4 H (BEAKER) (test code = 412) PLATELET COUNT (BEAKER) (test 172 K/CU MM 150-450 code = 756) MEAN PLATELET VOLUME (BEAKER) 9.7 fL 9.4-12.3 (test code = 754) NUCLEATED RED BLOOD CELLS 0 /100 WBC 0-0 (BEAKER) (test code = 413) NEUTROPHILS RELATIVE PERCENT 69 % (BEAKER) (test code = 429) LYMPHOCYTES RELATIVE PERCENT 15 % (BEAKER) (test code = 430) MONOCYTES RELATIVE PERCENT 13 % (BEAKER) (test code = 431) EOSINOPHILS RELATIVE PERCENT 2 % (BEAKER) (test code = 432) BASOPHILS RELATIVE PERCENT 0 % (BEAKER) (test code = 437) NEUTROPHILS ABSOLUTE COUNT 3.21 K/ L 1.56-6.13 (BEAKER) (test code = 670) LYMPHOCYTES ABSOLUTE COUNT 0.68 K/ L 1.18-3.74 L (BEAKER) (test code = 414) MONOCYTES ABSOLUTE COUNT (BEAKER) 0.62 K/ L 0.24-0.36 H (test code = 415) EOSINOPHILS ABSOLUTE COUNT 0.11 K/ L 0.04-0.36 (BEAKER) (test code = 416) BASOPHILS ABSOLUTE COUNT (BEAKER) 0.01 K/ L 0.01-0.08 (test code = 417) IMMATURE GRANULOCYTES-RELATIVE 0 % 0-1 PERCENT (BEAKER) (test code = 2801) POCT-GLUCOSE [id number] 05:14:00 Test Item Value Reference Range Interpretation Comments POC-GLUCOSE METER 117 mg/dL 70-110 H : TESTED A T [facility] 6720 (BEAKER) (test code = [facility], 153) [address]: Fur Finisher/Techni logan ID = [id number] for DA VIS, [place] POCT-GLUCOSE [id number] 21:22:00 Test Item Value Reference Range Interpretation Comments POC-GLUCOSE METER 144 mg/dL 70-110 H : TESTED A T [facility] 6720 (BEAKER) (test code = [facility], 153) [address]: Fur Finisher/Techni logan ID = [id number] for DA VIS, [place] POCT-GLUCOSE [id number] 18:38:00 Test Item Value Reference Range Interpretation Comments POC-GLUCOSE METER 115 mg/dL 70-110 H : TESTED A T [facility] 6720 (BEAKER) (test code = [facility], 153) [address]: Fur Finisher/Techni logan ID = [id number] for KELLY RUDOLPH Prepare [id number] 17:44:00 Test Item Value Reference Range Interpretation Comments CROSSMATCH (test code = 2264) COMPATIBLE Unit ABO (test code = O Pos 0053320) UNIT NUMBER (test code = [id number] 934-0) Status (test code = 7891674) READY Blood Bank Product (test code RED BLOOD CELLS = 2263) PRODUCT CODE (test code = F5981E75 933-2) [facility] [id number] 12:07:00 Test Item Value Reference Range Interpretation Comments POC-GLUCOSE METER 124 mg/dL 70-110 H : TESTED A T [facility] 6720 (BEAKER) (test code = LORELEI Jordan [facility], 1538) [address]: Fur Finisher/Techni logan ID = [id number] for KELLY RUDOLPH POCT-GLUCOSE [id number] 08:04:00 Test Item Value Reference Range Interpretation Comments POC-GLUCOSE METER 147 mg/dL 70-110 H : TESTED A T [facility] 6720 (BEAKER) (test code = [facility] Nikki [facility], 1538) [address]: Fur Finisher/Techni logan ID = [id number] for KELLY RUDOLPH [id number] 05:49:00 Test Item Value Reference Range Interpretation Comments PHOSPHORUS (BEAKER) (test code = 3.7 mg/dL 2.3-4.7 604) Fur Finisher ID - VARSHA [id number] 05:49:00 Test Item Value Reference Range Interpretation Comments MAGNESIUM (BEAKER) (test code = 2.0 mg/dL 1.6-2.6 627) Fur Finisher ID - VARSHA MBASIC METABOLIC [id number] 05:49:00 Test Item Value Reference Range Interpretation Comments SODIUM (BEAKER) 141 meq/L 136-145 (test code = 381) POTASSIUM (BEAKER) 3.5 meq/L 3.5-5.1 (test code = 379) CHLORIDE (BEAKER) 108 meq/L 98-107 H (test code = 382) CO2 (BEAKER) (test 29 meq/L 22-29 code = 355) BLOOD UREA NITROGEN 10 mg/dL 7-21 (BEAKER) (test code = 354) CREATININE (BEAKER) 0.56 mg/dL 0.57-1.25 L (test code = 358) GLUCOSE RANDOM 115 mg/dL 70-105 H (BEAKER) (test code = 652) CALCIUM (BEAKER) 8.8 mg/dL 8.4-10.2 (test code = 697) EGFR (BEAKER) (test 110 mL/min/1.73 ESTIM ATED GFR IS code = 1092) sq m NOT ACCURATE CREATININE CLEARANCE IN PREDICTING GLOMERULAR FILTRATION RATE . ESTIMATED GFR I S NOT APPLICABLE FOR DIALYSIS PATIEN TS. Fur Finisher ID - VARSHA MPOCT-GLUCOSE [id number] 21:18:00 Test Item Value Reference Range Interpretation Comments POC-GLUCOSE METER 133 mg/dL 70-110 H : TESTED A T [facility] 6720 (BEAKER) (test code = [facility], 1538) [address]: Fur Finisher/Techni logan ID = [id number] for DANIELLE CARTER SE POCT-GLUCOSE [id number] 17:21:00 Test Item Value Reference Range Interpretation Comments POC-GLUCOSE METER 113 mg/dL 70-110 H : TESTED A T [facility] 6720 (BEAKER) (test code = [facility], 1538) [address]: Fur Finisher/Techni logan ID = [id number] for KELLY RUDOLPH POCT-GLUCOSE [id number] 12:13:00 Test Item Value Reference Range Interpretation Comments POC-GLUCOSE METER 95 mg/dL 70-110 : TESTED A T [facility] 6720 (BEAKER) (test code = [facility], 1538) [address]: Fur Finisher/Techni logan ID = [id number] for FAINA MORGAN POCT-GLUCOSE [id number] 08:03:00 Test Item Value Reference Range Interpretation Comments POC-GLUCOSE METER 140 mg/dL 70-110 H : TESTED A T [facility] 6720 (BEAKER) (test code = [facility], 1538) 56858: Fur Finisher/Techni logan ID = [id number] for FAINA FOSTER [id number] 06:24:00 Test Item Value Reference Range Interpretation Comments PHOSPHORUS (BEAKER) (test code = 3.9 mg/dL 2.3-4.7 604) Fur Finisher ID - KESHIA [id number] 06:24:00 Test Item Value Reference Range Interpretation Comments MAGNESIUM (BEAKER) (test code = 2.0 mg/dL 1.6-2.6 627) Fur Finisher ID - KESHIA LBASIC METABOLIC [id number] 06:24:00 Test Item Value Reference Range Interpretation Comments SODIUM (BEAKER) 140 meq/L 136-145 (test code = 381) POTASSIUM (BEAKER) 3.4 meq/L 3.5-5.1 L (test code = 379) CHLORIDE (BEAKER) 106 meq/L 98-107 (test code = 382) CO2 (BEAKER) (test 28 meq/L 22-29 code = 355) BLOOD UREA NITROGEN 11 mg/dL 7-21 (BEAKER) (test code = 354) CREATININE (BEAKER) 0.60 mg/dL 0.57-1.25 (test code = 358) GLUCOSE RANDOM 113 mg/dL 70-105 H (BEAKER) (test code = 652) CALCIUM (BEAKER) 8.7 mg/dL 8.4-10.2 (test code = 697) EGFR (BEAKER) (test 101 mL/min/1.73 ESTIM ATED GFR IS code = 1092) sq m NOT ACCURATE CREATININE CLEARANCE IN PREDICTING GLOMERULAR FILTRATION RATE . ESTIMATED GFR I S NOT APPLICABLE FOR DIALYSIS PATIEN TS. Fur Finisher ID - PIAYA LPOCT-GLUCOSE [id number] 21:28:00 Test Item Value Reference Range Interpretation Comments POC-GLUCOSE METER 137 mg/dL 70-110 H : TESTED A T [facility] 6720 ([email or web address]) (test code = [facility], 153) 324[address]: Fur Finisher/Techni logan ID = [id number] for DA VIS, [place] POCT-GLUCOSE [id number] 17:51:00 Test Item Value Reference Range Interpretation Comments POC-GLUCOSE METER 115 mg/dL 70-110 H : TESTED A T [facility] 6720 (BEAKER) (test code = [facility], 1538) 6[address]: Fur Finisher/Techni logan ID = [id number] for ZA VALA, ERANDY POCT-GLUCOSE [id number] 12:30:00 Test Item Value Reference Range Interpretation Comments POC-GLUCOSE METER 98 mg/dL 70-110 : TESTED A T [facility] 6720 (BEAKER) (test code = [facility] [employer] [facility], 1538) 45097: Fur Finisher/Techni logan ID = [id number] for ZAVA LA, ERANDY POCT-GLUCOSE [id number] 07:42:00 Test Item Value Reference Range Interpretation Comments POC-GLUCOSE METER 88 mg/dL 70-110 : TESTED A T [facility] 6720 (BEAKER) (test code = [facility], 1538) 15156: Fur Finisher/Techni logan ID = [id number] for INDIRA MOODY [id number] 06:09:00 Test Item Value Reference Range Interpretation Comments PHOSPHORUS (BEAKER) (test code = 3.7 mg/dL 2.3-4.7 604) Fur Finisher ID Sheridan SCHMITT [id number] 06:09:00 Test Item Value Reference Range Interpretation Comments MAGNESIUM (BEAKER) (test code = 1.9 mg/dL 1.6-2.6 627) Fur Finisher ID - KESHIA LBASIC METABOLIC [id number] 06:09:00 Test Item Value Reference Range Interpretation Comments SODIUM (BEAKER) 140 meq/L 136-145 (test code = 381) POTASSIUM (BEAKER) 3.6 meq/L 3.5-5.1 (test code = 379) CHLORIDE (BEAKER) 105 meq/L 98-107 (test code = 382) CO2 (BEAKER) (test 28 meq/L 22-29 code = 355) BLOOD UREA NITROGEN 10 mg/dL 7-21 (BEAKER) (test code = 354) CREATININE (BEAKER) 0.57 mg/dL 0.57-1.25 (test code = 358) GLUCOSE RANDOM 122 mg/dL 70-105 H (BEAKER) (test code = 652) CALCIUM (BEAKER) 8.7 mg/dL 8.4-10.2 (test code = 697) EGFR (BEAKER) (test 107 mL/min/1.73 ESTIM ATED GFR IS code = 1092) sq m NOT ACCURATE CREATININE CLEARANCE IN PREDICTING GLOMERULAR FILTRATION RATE . ESTIMATED GFR I S NOT APPLICABLE FOR DIALYSIS PATIEN TS. Fur Finisher ID - KESHIA LPOCT-GLUCOSE [id number] 21:34:00 Test Item Value Reference Range Interpretation Comments POC-GLUCOSE METER 122 mg/dL 70-110 H : TESTED A T [facility] 6720 (BEAKER) (test code = [facility], 1538) 89448: Fur Finisher/Techni logan ID = [id number] for [place] PANG POCT-GLUCOSE [id number] 17:18:00 Test Item Value Reference Range Interpretation Comments POC-GLUCOSE METER 139 mg/dL 70-110 H : TESTED A T [facility] 6720 (BEAKER) (test code = [facility], 1538) 42131: Fur Finisher/Techni logan ID = [id number] for INDIRA SCHERER POCT-GLUCOSE [id number] 12:23:00 Test Item Value Reference Range Interpretation Comments POC-GLUCOSE METER 78 mg/dL 70-110 : TESTED A T [facility] 6720 (BEAKER) (test code = [facility], 1538) 63784: Fur Finisher/Techni logan ID = [id number] for INDIRA MOODY POCT-GLUCOSE [id number] 07:53:00 Test Item Value Reference Range Interpretation Comments POC-GLUCOSE METER 120 mg/dL 70-110 H : TESTED A T [facility] 6720 (BEAKER) (test code = [facility], 1538) 20335: Fur Finisher/Techni logan ID = [id number] for INDIRA SCHERER [id number] 05:52:00 Test Item Value Reference Range Interpretation Comments PHOSPHORUS (BEAKER) (test code = 4.0 mg/dL 2.3-4.7 604) Fur Finisher ID - VARSHA [id number] 05:52:00 Test Item Value Reference Range Interpretation Comments MAGNESIUM (BEAKER) (test code = 2.0 mg/dL 1.6-2.6 627) Fur Finisher ID - VARSHA MBASIC METABOLIC [id number] 05:52:00 Test Item Value Reference Range Interpretation Comments SODIUM (BEAKER) 139 meq/L 136-145 (test code = 381) POTASSIUM (BEAKER) 3.8 meq/L 3.5-5.1 (test code = 379) CHLORIDE (BEAKER) 106 meq/L 98-107 (test code = 382) CO2 (BEAKER) (test 27 meq/L 22-29 code = 355) BLOOD UREA NITROGEN 9 mg/dL 7-21 (BEAKER) (test code = 354) CREATININE (BEAKER) 0.64 mg/dL 0.57-1.25 (test code = 358) GLUCOSE RANDOM 116 mg/dL 70-105 H (BEAKER) (test code = 652) CALCIUM (BEAKER) 8.9 mg/dL 8.4-10.2 (test code = 697) EGFR (BEAKER) (test 94 mL/min/1.73 ESTIMA AMANDA GFR IS code = 1092) sq m NOT ACCURATE CREATININE CLEARANCE IN PREDICTING GLOMERULAR FILTRATION RATE . ESTIMATED GFR I S NOT APPLICABLE FOR DIALYSIS PATIEN TS. Fur Finisher ID - VARSHA MPROTHROMBIN [id number] 05:51:00 Test Item Value Reference Range Interpretation Comments PROTIME (BEAKER) (test code = 12.8 seconds 11.9-14.2 759) INR (BEAKER) (test code = 370) 1.0 <=5.9 Effective 01/25/2019: PT Reference Range ChangeNew: 11.9-14.2 Previous: 11.7- 14.7RECOMMENDED COUMADIN/WARFARIN INR THERAPY RANGESSTANDARD DOSE: 2.0-3.0 Includes: PROPHYLAXIS for venous thrombosis, systemic embolization; TREATMENT for venous thrombosis and/or pulmonary embolus.HIGH RISK: Target INR is2.5-3.5 for patients wiht mechanical heart valves.[id number] 05:51:00 Test Item Value Reference Range Interpretation Comments PROTIME (BEAKER) (test code = 12.8 seconds 11.9-14.2 759) INR (BEAKER) (test code = 370) 1.0 <=5.9 PARTIAL THROMBOPLASTIN TIME 28.5 seconds 22.5-36.0 (BEAKER) (test code = 760) Effective 01/25/2019: PT Reference Range ChangeNew: 11.9-14.2 Previous: 11.7- 14.7RECOMMENDED COUMADIN/WARFARIN INR THERAPY RANGESSTANDARD DOSE: 2.0-3.0 Includes: PROPHYLAXIS for venous thrombosis, systemic embolization; TREATMENT for venous thrombosis and/or pulmonary embolus.HIGH RISK: Target INR is2.5-3.5 for patients wiht mechanical heart valves.CBC (HEMOGRAM ONLY)2019-11-18 05:25:00 Test Item Value Reference Range Interpretation Comments WHITE BLOOD CELL COUNT (BEAKER) 4.5 K/ L 3.5-10.5 (test code = 775) RED BLOOD CELL COUNT (BEAKER) 3.17 M/ L 3.93-5.22 L (test code = 761) HEMOGLOBIN (BEAKER) (test code = 11.0 GM/DL 11.2-15.7 L 410) HEMATOCRIT (BEAKER) (test code = 33.3 % 34.1-44.9 L 411) MEAN CORPUSCULAR VOLUME (BEAKER) 105.0 fL 79.4-94.8 H (test code = 753) MEAN CORPUSCULAR HEMOGLOBIN 34.7 pg 25.6-32.2 H (BEAKER) (test code = 751) MEAN CORPUSCULAR HEMOGLOBIN CONC 33.0 GM/DL 32.2-35.5 (BEAKER) (test code = 752) RED CELL DISTRIBUTION WIDTH 14.9 % 11.7-14.4 H (BEAKER) (test code = 412) PLATELET COUNT (BEAKER) (test 176 K/CU MM 150-450 code = 756) MEAN PLATELET VOLUME (BEAKER) 8.8 fL 9.4-12.3 L (test code = 754) NUCLEATED RED BLOOD CELLS 0 /100 WBC 0-0 (BEAKER) (test code = 413) POCT-GLUCOSE [id number] 21:17:00 Test Item Value Reference Range Interpretation Comments POC-GLUCOSE METER 152 mg/dL 70-110 H : TESTED A T [facility] 6720 (BEAKER) (test code = [facility], 1538) [id number]: Fur Finisher/Techni logan ID = [id number] for [place]AND PANG POCT-GLUCOSE [id number] 11:38:00 Test Item Value Reference Range Interpretation Comments POC-GLUCOSE METER 111 mg/dL 70-110 H : TESTED A T [facility] 6720 (BEAKER) (test code = [facility], 1538) 452[address]: Fur Finisher/Techni logan ID = [id number] for JOELLE RHONDA YENNY B-type Natriuretic Factor (BNP)2019-11-16 11:10:00 Test Item Value Reference Range Interpretation Comments BNP (test code = 18674-6) 157 pg/mL 0-100 H JANETTE (test code = JANETTE) Fur Finisher ID - [id number] Lab Interpretation (test Abnormal code = 05127-8) [facility] (BNP)2019-11-16 11:10:00 Test Item Value Reference Range Interpretation Comments B-TYPE NATRIURETIC PEPTIDE (BEAKER) 157 pg/mL 0-100 H (test code = 700) Fur Finisher ID - AADANIEComprehensive metabolic [id number] 11:05:00 Test Item Value Reference Range Interpretation Comments Protein, Total (test 6.5 6.0- 8.3 gm/dL code = 2885-2) Albumin (test code = 3.7 g/dL 3.5-5 33097-0) Alkaline Phosphatase 113 U/L 40-150 (test code = 6768-6) Total Bilirubin (test 0.4 mg/dL 0.2-1.2 code = 1975-2) Sodium (test code = 137 meq/L 817-555 7389-2) Potassium (test code = 4.0 meq/L 3.5-5.1 2823-3) Chloride (test code = 103 meq/L 98-107 2075-0) CO2 (test code = 27 meq/L 22-29 2028-9) BUN (test code = 7 mg/dL 7-21 3094-0) Creatinine (test code 0.66 mg/dL 0.57-1.25 = 2160-0) Glucose (test code = 118 mg/dL 70-105 H 2345-7) Calcium (test code = 8.7 mg/dL 8.4-10.2 77426-6) AST (test code = 28 U/L 5-34 1920-8) ALT (test code = 26 U/L 6-55 1742-6) EGFR (test code = 91 mL/min/1.73 sq m [facility] [place] [address]-4) NOT ACCURATE CREATININE CLEARANCE IN PREDICTING GLOMERULAR FILTRATION RATE . ESTIMATED GFR I S NOT APPLICABLE FOR DIALYSIS PATIENTS. JANETTE (test code = JANETTE) Fur Finisher ID - AAHAMID Lab Interpretation Abnormal (test code = 27731-0) [facility]COMPRE[facility]ENSIVE METABOLIC [id number] 11:05:00 Test Item Value Reference Range Interpretation Comments TOTAL PROTEIN 6.5 gm/dL 6.0-8.3 (BEAKER) (test code = 770) ALBUMIN (BEAKER) 3.7 g/dL 3.5-5.0 (test code = 1145) ALKALINE PHOSPHATASE 113 U/L 40-150 (BEAKER) (test code = 346) BILIRUBIN TOTAL 0.4 mg/dL 0.2-1.2 (BEAKER) (test code = 377) SODIUM (BEAKER) (test 137 meq/L 136-145 code = 381) POTASSIUM (BEAKER) 4.0 meq/L 3.5-5.1 (test code = 379) CHLORIDE (BEAKER) 103 meq/L 98-107 (test code = 382) CO2 (BEAKER) (test 27 meq/L 22-29 code = 355) BLOOD UREA NITROGEN 7 mg/dL 7-21 (BEAKER) (test code = 354) CREATININE (BEAKER) 0.66 mg/dL 0.57-1.25 (test code = 358) GLUCOSE RANDOM 118 mg/dL 70-105 H (BEAKER) (test code = 652) CALCIUM (BEAKER) 8.7 mg/dL 8.4-10.2 (test code = 697) AST (SGOT) (BEAKER) 28 U/L 5-34 (test code = 353) ALT (SGPT) (BEAKER) 26 U/L 6-55 (test code = 347) EGFR (BEAKER) (test 91 mL/min/1.73 ESTIMA AMANDA GFR IS code = 1092) sq m NOT ACCURATE CREATININE CLEARANCE IN PREDICTING GLOMERULAR FILTRATION RATE . ESTIMATED GFR I S NOT APPLICABLE FOR DIALYSIS PATIEN TS. Fur Finisher ID - AAHAMIDPROTHROMBIN TIME/[id number] 10:50:00 Test Item Value Reference Range Interpretation Comments PROTIME (BEAKER) (test code = 12.5 seconds 11.9-14.2 759) INR (BEAKER) (test code = 370) 1.0 <=5.9 Effective 01/25/2019: PT Reference Range ChangeNew: 11.9-14.2 Previous: 11.7- 14.7RECOMMENDED COUMADIN/WARFARIN INR THERAPY RANGESSTANDARD DOSE: 2.0-3.0 Includes: PROPHYLAXIS for venous thrombosis, systemic embolization; TREATMENT for venous thrombosis and/or pulmonary embolus.HIGH RISK: Target INR is2.5-3.5 for patients wiht mechanical heart valves.CBC W/PLT COUNT & AUTO [id number] 10:44:00 Test Item Value Reference Range Interpretation Comments WHITE BLOOD CELL COUNT (BEAKER) 6.8 K/ L 3.5-10.5 (test code = 775) RED BLOOD CELL COUNT (BEAKER) 3.40 M/ L 3.93-5.22 L (test code = 761) HEMOGLOBIN (BEAKER) (test code = 11.7 GM/DL 11.2-15.7 410) HEMATOCRIT (BEAKER) (test code = 35.5 % 34.1-44.9 411) MEAN CORPUSCULAR VOLUME (BEAKER) 104.4 fL 79.4-94.8 H (test code = 753) MEAN CORPUSCULAR HEMOGLOBIN 34.4 pg 25.6-32.2 H (BEAKER) (test code = 751) MEAN CORPUSCULAR HEMOGLOBIN CONC 33.0 GM/DL 32.2-35.5 (BEAKER) (test code = 752) RED CELL DISTRIBUTION WIDTH 14.8 % 11.7-14.4 H (BEAKER) (test code = 412) PLATELET COUNT (BEAKER) (test 213 K/CU MM 150-450 code = 756) MEAN PLATELET VOLUME (BEAKER) 8.6 fL 9.4-12.3 L (test code = 754) NUCLEATED RED BLOOD CELLS 0 /100 WBC 0-0 (BEAKER) (test code = 413) NEUTROPHILS RELATIVE PERCENT 81 % (BEAKER) (test code = 429) LYMPHOCYTES RELATIVE PERCENT 8 % (BEAKER) (test code = 430) MONOCYTES RELATIVE PERCENT 9 % (BEAKER) (test code = 431) EOSINOPHILS RELATIVE PERCENT 1 % (BEAKER) (test code = 432) BASOPHILS RELATIVE PERCENT 0 % (BEAKER) (test code = 437) NEUTROPHILS ABSOLUTE COUNT 5.47 K/ L 1.56-6.13 (BEAKER) (test code = 670) LYMPHOCYTES ABSOLUTE COUNT 0.55 K/ L 1.18-3.74 L (BEAKER) (test code = 414) MONOCYTES ABSOLUTE COUNT (BEAKER) 0.61 K/ L 0.24-0.36 H (test code = 415) EOSINOPHILS ABSOLUTE COUNT 0.06 K/ L 0.04-0.36 (BEAKER) (test code = 416) BASOPHILS ABSOLUTE COUNT (BEAKER) 0.02 K/ L 0.01-0.08 (test code = 417) IMMATURE GRANULOCYTES-RELATIVE 1 % 0-1 PERCENT (BEAKER) (test code = 2801) POCT-GLUCOSE [id number] 08:18:00 Test Item Value Reference Range Interpretation Comments POC-GLUCOSE METER 141 mg/dL 70-110 H : TESTED A T [facility] 6720 (BEAKER) (test code = LORELEI Jordan [facility], 1538) [address]: Fur Finisher/Techni logan ID = [id number] for MATHUR MURTAZA WEINER POCT-GLUCOSE [id number] 22:29:00 Test Item Value Reference Range Interpretation Comments POC-GLUCOSE METER 172 mg/dL 70-110 H : TESTED A T [facility] 6720 (BEAKER) (test code = [facility] Nikki [facility], 1538) [address]: Fur Finisher/Techni logan ID = [id number] for PH CHEPE LUBIN POCT-GLUCOSE [id number] 18:30:00 Test Item Value Reference Range Interpretation Comments POC-GLUCOSE METER 176 mg/dL 70-110 H : TESTED A T [facility] 6720 (BEAKER) (test code = [facility] Nikki [facility], 1538) [address]22[address]: Fur Finisher/Techni lgoan ID = [id number] for MATHUR MURTAZA WEINER BONE AND/OR JOINT IMAGING, WHOLE [id number] 16:33:00FINAL REPORT PROCEDURE: BONE SCAN, WHOLE BODY CPT CODE: 81480 PAT CATION: Lung cancer PROTOCOL: 21.5 mCi of Tc-99m [...] of the skull. Images for comparison/correlation were recent chest CT. Signed: Blane Townsend MDReport Verified Date/Time: 11/03/2019 16:33:30 Reading Location: [address] [place] [address] Reading Room NM bone scan whole [id number] 16:33:00Interface, External Ris In - 11/03/2019 4:35 PM CSTFINAL REPORT PROCEDURE: BONE SCAN, WHOLE BODY CPT CODE: 16615 INDICATION: Lung cancer PROTOCOL: 21.5 mCi of [...] of the skull. Images for comparison/correlation were recent chest CT. Signed: Blane Townsend MDReport Verified Date/Time: 11/03/2019 16:33:30 Reading Location: [address] [facility] [id number] 16:18:00Addendum BeginsREPORT STATUS:A I have reviewed the study for nonvascular components. I agree with the nonvascular findings as described. Additional observations are described below: There is left apical lung scarring. This could be a result of old granulomatous disease. A large r ight upper lobe mass with spiculated/lobulated border, internal [...] to be status post hysterectomy and bilateral salpingo- oophorectomy. Signed: David Miranda Verified Date/Time: 11/03/2019 16:18:17 Reading Location: [place] [address] Angio Body Reading RoomAddendum EndsFINAL REPORT CT [...] the dynamic passage of intravenous contrast material. Multi- planar 3-D volume-rendering reconstruction was performed using an [...] femoral, and the visualised superficial femoral arteries, bilaterally, are widely patent, with nonobstructive calcification, seen predominantly in the common iliac level. Dimensions that may be helpful for TAVR as follows: There is no calcification seen in the aortic root/ascending thoracic aorta. The major and minor aortic annulus diameter measures 26.9 and 20.9 mm, respectively. The aortic annulus perimeter measured 76 mm and the cross-sectional area measures 436 mm2. The aortic annulus [...] 62.8-72.3 mm (26 mm valve); 72.3-81.7 mm (29 mm valve); and 81.7-94.2. mm (34 mm valve). For reference purpose, per Analius Yani cohen, recommendation are as follows: 23mm valve is recommended for CT perimeter between 62.8-72.3 mm; diameter between 20-23 mm; or area between 314-415.5 mm2. For 25mm valve, it is recommended for CT perimeter between 72.3-78.5 mm; diameter between 23-25 mm; or area between 415.5-490.9 mm2. For 27mm valve, it is recommended for CT perimeter between 78.5-84.8 mm;diameter between 25-27 mm; or area between 490.9- 572.6 mm2. Agatston Score is 3000. The aortic [...] iliac artery measures 6.1 and 6.2 mm, res pectively with minimal tortuosity and no calcific atherosclerosis [...] performed a few days ago by the Security Architect Radiologist. Refer to formal dictation for details, [...] The gallbladder wall is contracted and small ga llstones are seen. No biliary ductal dilation is [...] area is 92 mm2. No mitral annular calci fication is identified. There is no calcification seen in the ascending thoracic aorta. Dimensions that may be helpful for TAVR as described above. 2. Coronary artery origins are normal. Scattered calcification is seen in the LAD and LCx territories. 3. Pulmonary findings has been described in formal CT scan a few days ago. Refer to formal CT report by Security Architect Radiologist for details. Pertinentfindings include emphysematous changes [...] dictated regarding the non-vascular findings by the Security Architect Radiologist. Signed: Ricardo Broussard MDReport Verified Date/Time: 11/03/2019 07:39:57 CT, CTA, [id number] 16:18:00Addendum BeginsREPORT STATUS:A I have reviewed the study for nonvascular compo nents. I agree with the nonvascular findings as [...] status post hysterectomy and bilateral salpingo-oophorectomy. Signed: NicaJeffreyir MDReport Verified Date/Time: 11/03/2019 16:18:17 Reading Location: [facility] P[address] Angio Body Reading RoomAddendum EndsFINAL REPORT [...] The cardiac chambers demonstrate normal atrioventricular and ventriculo arterial concordance, and systemic and pulmonary venous return. [...] femoral, and the visualised superficial femoral arteries, bilaterally, are widely patent, with nonobstructive calcification, seen predominantly in the common iliac level. Dimensions that may be helpful for TAVR as follows: There is no calcification seen in the aortic root/ascending thoracic aorta. The major and minor aortic annulus diameter measures 26.9 and 20.9 mm, respectively. The aortic annulus perimeter measured 76 mm and the cross-sectional area measures 436 mm2. The aortic annulus [...] 62.8-72.3 mm (26 mm valve); 72.3-81.7 mm (29 mm valve); and 81.7-94.2. mm (34 mm valve). For reference purpose, per [employer] brochure, recommendation are as follows: 23mm valve is recommended for CT perimeter between 62.8-72.3 mm; diameter between 20- 23 mm; or area between 314-415.5 mm2. For 25mm valve, it is recommended for CT perimeter between 72.3-78.5 mm; diameter between 23-25 mm; or area between 415.5-490.9 mm2. For 27mm valve, it is recommended for CT perimeter between 78.5-84.8 mm;diameter between 25-27 mm; or area between 490.9-572.6 mm2. Agatston [...] mm, respectively. There is no evidence of thoracoabd ominal aortic aneurysm or stent placement present. The minimum and the perpendicular left common iliac artery measures 6.7 and 6.8 mm, respectively with mild tortuosity and mild calcific atherosclerosis present. The minimum and the perpendicular left external iliac artery measures 6.1 and 6.2 mm, res pectively with minimal tortuosity and no calcific atherosclerosis [...] performed a few days ago by the Security Architect Radiologist. Refer to formal dictation for details, [...] The gallbladder wall is contracted and small ga llstones are seen. No biliary ductal dilation is [...] area is 92 mm2. No mitral annular calci fication is identified. There is no calcification seen in the ascending thoracic aorta. Dimensions that may be helpful for TAVR as described above. 2. Coronary artery origins are normal. Scattered calcification is seen in the LAD and LCx territories. 3. Pulmonary findings has been described in formal CT scan a few days ago. Refer to formal CT report by Security Architect Radiologist for details. Pertinentfindings include emphysematous changes [...] dictated regarding the non-vascular findings by the Security Architect Radiologist. Signed: Ricardo Broussard MDReport Verified Date/Time: 11/03/2019 07:39:57 POCT-GLUCOSE [id number] 11:34:00 Test Item Value Reference Range Interpretation Comments POC-GLUCOSE METER 109 mg/dL 70-110 : TESTED A T [facility] 6720 ([employer]) (test code = [employer] [place], 1538) [id number]: Fur Finisher/Techni logan ID = [id number] for MURTAZA MEDINA POCT-GLUCOSE [id number] 08:10:00 Test Item Value Reference Range Interpretation Comments POC-GLUCOSE METER 115 mg/dL 70-110 H : TESTED A T [facility] 6720 ([employer]) (test code = [employer] [place], 1538) 80[address]: Fur Finisher/Techni logan ID = [id number] for MURTAZA MEDINA CTA abdomen & [id number] 07:39:00Interface, External Ris In - 11/03/2019 4:20 PM CSTAddendum BeginsREPORT STATUS:A I have reviewed the study for nonvascular components. I agree with the nonvascular findings as described. Additional observations are described below: There is left apical lung scarring. This could be a result of old granulomatous disease. A large right upper lobe mass with spiculated/lobulated border, internal calcifications and possible invasion of the anterior chest wall is noted again as described. It measures approximately 3.5 cm AP by 3.8 cm transverse by 5 cm craniocaudad and is worrisome for primary lung cancer. There is central necrosis. There is no significant mediastinal or hilar lymphadenopathy. There is no evidence of lesions in the adrenal glands or liver. There is presence of bi lateral diffuse centrilobular type emphysema. The gallbladder is thick walled. At one point it measures 4 mm. There is diffuse wall enhancement. There is presence of a calcified large calculus in the gallbladder. This is worrisome. Further evaluation of the gallbladder is recommended with an ultrasound examination. There is dilatation of the common bile duct. Just above the pancreatic head measures approximately 11 mm. There is no apparent obstructive lesion or calculus seen on this examination. Further evaluation should be performed. The gallbladder and the biliary tree can be evaluated best via MRCP examination. There is high density cystic area in the middle pole of the right kidney. This is entirely intramural renal. It measures approximately 2 x 2 centimeters. [...] Mirandaeport Verified Date/Time: 11/03/2019 16:18:17 Reading Location: [place] [address] Angio Body Reading RoomAddendum EndsFINAL REPORT CT angiography of the thoracoabdominal aorta and pelvic arteries, 02 November 2019 INDICATION: This is a 64 year old female with a diagnosis of aortic stenosis, presents for preprocedure TAVR assessment. TECHNIQUE:Spiral acquisition before and during intravenous contrast administration using a Rich multidetector CT scanner. Images were obtained before and during the dynamic passage of intravenous contrast material. Multi-planar 3-D volume-rendering reconstruction was performed using an independent workstation interactively by the interpreting physician as well as the 3-D specialist for optimal visualisation of the thoracoabdominal aorta, the pelvic arteries as well as its proximal branches. Please refer to the contrast sheet scanned in the EPIC system for the amount and route of contrast given. This examwas performed according to our departmental dose-optimisation programme, which includes automated exposure control, adjustment of the mA and/or kV according to patient size and/or use of iterative reconstruction technique. Dose modulation, iterative reconstruction, and/or weight based adjustment of the mA/kV was utilized to reduce the radiation dose to as low as reasonably achievable. FINDINGS: VASCULAR: A central venous catheter is identified, with tip identified in the right atrial level. No peric ardial effusion is identified. The central pulmonary artery is normal in calibre. The cardiac chambers demonstrate normal atrioventricular and ventriculoarterial concordance, and systemic and pulmonaryvenous return. The left ventricle is normal in size. No mitral annular calcification is identified. Left atrial size appears to be unremarkable. 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 Coronary artery origins are normal. Calcification is identified in the proximal and mid LAD, proximal LCx. Patient has a diagnosis of aortic stenosis. The aortic valve appears to be bicuspid. Correlate with echoca rdiography. The aortic Agatston score is 3000. The aortic valve area is 92 mm2. The location of aortic valvular calcification can be seen in reformatted data set sent to PACS. Regarding the aorta, theaortic root is free of calcification. The ascending thoracic aorta, is also free of calcification. Mild calcification is seen in the transverse arch and descending thoracic aorta. In the abdominal aorta, scattered calcification is identified. No ectasia or aneurysmal dilation is seen. There is no evidence of acute aortic pathology, specifically, there is no dissection, intramural hematoma, or contained rupture. The arch vessel branching pattern is normal and the visualised arch vessels are widely patent proximally. The left subclavian artery, has mild calcification identified at its takeoff and iswidely patent. At image 20, it measures 6 mm in diameter. The right subclavian artery also has mild calcification identified. At image 13, it measures 5.7 mm in diameter. There are single left and right renal arteries that are widely patent. The coeliac axis, SMA, and RE are widely patent. The commo n iliac, external iliac, common femoral, and the visualised superficial femoral arteries, bilaterally, are widely patent, with nonobstructive calcification, seen predominantly in the common iliac level. Dimensions that may be helpful for TAVR as follows: There is no calcification seen in the aortic root/ascending thoracic aorta. The major and minor aortic annulus diameter measures 26.9 and 20.9 mm, respectively. The aortic annulus perimeter measured 76 mm and the cross-sectional area measures 436 mm2. The aortic annulus [...] 62.8-72.3 mm (26 mm valve); 72.3-81.7 mm (29 mm valve); and 81.7-94.2. mm [...] or area between 415.5-490.9 mm2. For 27mm valve, it is recommended for CT perimeter between 78.5-84.8 mm; diameter between 25-27 mm; or area between 490.9-572.6 mm2. Agatston Score is 3000. The aortic valve area is 92. The distance between the take offof the RCA and the annulus (systole): 10.1 [...] calcific atherosclerosis present. The minimum and the p erpendicular right common iliac artery measures 6.7 and 7.0 mm, respectively with mild tortuosity and mild calcific atherosclerosis present. The minimum and the perpendicular right external iliac artery measures 5.2 and 6.1 mm, respectively with minimal tortuosity and no calcific atherosclerosis present. The minimum and the perpendicular right femoral artery measures 7.3 and 7.5 mm, respectivelywith minimal tortuosity and no calcific atherosclerosis present. NON-VASCULAR: The visualised thyroid gland is unremarkable. The chest wall and mediastinum appear normal ; no significant adenopathy is identified. In fact, patient only has a formal chest CT scan performed a few days ago by the Consult ant Radiologist. Refer to formal dictation for details, specifically, there is diffuse emphysematouschanges, as well as a right upper lobe mass at image 61, measuring at least 3.9 x 3.6 cm in diameterwith irregular margin, concern for lung malignancy. Correlate clinically. In the abdomen, the liver and spleen appears unremarkable. The liver edge is smooth. No abnormal enhancing structure is identified. The gallbladder wall is contracted and small gallstones are seen. No biliary ductal dilation isidentified. The adrenal glands are not enlarged. The pancreas appears unremarkable. No acute renalpathology is seen and no hydronephrosis or perirenal [...] the pelvis. No significant retroperitoneal adenopathy is identified. In the bony windows, no acute bony pathology is identified. However, degenerative changes is noted. No obvious blastic or lytic lesions identified. However, at L3 and L4 level, potential degenerative changes is noted. In fact, a total body bone/jointimaging has been arranged. CONCLUSIONS: 1. Patient has a diagnosis of aortic stenosis. The aortic valve appears to be bicuspid. Correlate with echocardiography. The aortic Agatston Score is 3000 andaortic valve area is 92 mm2. No mitral [...] ago. Refer to formal CT report by Security Architect Radiologist for details. Pertinent findings include emphysematous changes as well as lung mass identified in the right upper lobe measure at least 3.9 x 3.6 cm with regular margin. Lung malignancy. 4. Other findings as described above. A hypodensity is identified in the posterior aspect of the right kidney that may demonstrate some enhancement. 5. An addendum will be dictated regarding the non-vascular findings by the Security Architect Radiologist. Signed: Ricardo Broussard [facility] ed Date/Time: 11/03/2019 07:39:57 [facility] 07[facility]39:00Interface, External Ris In - 11/03/2019 4:20 PM CSTAddendum BeginsREPORT STATUS:A I have reviewed the study for nonvascular components. I agree with the nonvascular findings as described. Additional observations are described below: There is left apical lung scarring. This could be a result of old granulomatous disease. A large right upper lobe mass with spiculated/lobulated border, internal calcifications and possible invasion of the anterior chest wall is noted again [...] the gallbladder. This is worrisome. Further evaluation of the gallbladder is recommended with an ultrasound examination. There is dilatation of the common bile duct. Just above the pancreatic head measures approximately 11 mm. There is no apparent obstructive lesion or calculus seen on this examination. Further evaluation should be performed. The gallbladder and the biliary tree can be evaluated best via MRCP examination. There is high density cystic area in the middle pole of the right kidney. This is entirely intramural renal. It measures approximately 2 x 2 centimeters. [...] to be status post hysterectomy and bilateral salpingo- oophorectomy. Signed: David Miranda Verified Date/Time: 11/03/2019 16:18:17 Reading Location: [place] [address] Angio Body Reading RoomAddendum EndsFINAL REPORT CT angiography of the thoracoabdominal aorta and pelvic arteries, 02 November 2019 INDICATION: This is a 64 year old female with a diagnosis of aortic stenosis, presents for preprocedure TAVR assessment. TECHNIQUE:Spiral acquisition before and during intravenous contrast administration using a Rich multidetector CT scanner. Images were obtained before and during the dynamic passage of intravenous contrast material. Multi- planar 3-D volume-rendering reconstruction was performed using an independent workstation interactively by the interpreting physician as well as the 3-D specialist for optimal visualisation of the thoracoabdominal aorta, the pelvic arteries as well as its [...] dose to as low as reasonably achievable. FINDINGS: VASCULAR: A central venous catheter is identified, with tip identified in the right atrial level. No pericardial effusion is identified. The central pulmonary artery is normal in calibre. The cardiac chambers demonstrate normal atrioventricular and ventriculoarterial concordance, and systemic and pulmonaryvenous return. The left ventricle is normal in size. No mitral annular calcification is identified. Left atrial size appears to be unremarkable. 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 Coronary artery origins are normal. Calcification is identified in the proximal and mid LAD, proximal LCx. Patient has a diagnosis of aortic stenosis. The aortic valve appears to be bicuspid. Correlate with echocardiography. The aortic Agatston score is 3000. The aortic valve area is 92 mm2. The location of aortic valvular calcification can be seen in reformatted data set sent to PACS. Regarding the aorta, theaortic root is free of calcification. The ascending thoracic aorta, is also free of calcification. Mild calcification is seen in the transverse arch and descending thoracic aorta. In the abdominal aorta, scattered calcification is identified. No ectasia or aneurysmal dilation is seen. There is no evidence of acute aortic pathology, specifically, there is no dissection, intramural hematoma, or contained rupture. The arch vessel branching pattern is normal and the visualised arch vessels are widely patent proximally. The left subclavian artery, has mild calcification identified at its takeoff and iswidely patent. At image 20, it measures 6 mm in diameter. The right subclavian artery also has mild calcification identified. At image 13, it measures 5.7 mm in diameter. There are single left and right renal arteries that are widely patent. The coeliac axis, SMA, and RE are widely patent. The common iliac, external iliac, common femoral, and the visualised superficial femoral arteries, bilaterally, are widely patent, with nonobstructive calcification, seen predominantly in the common iliac level. Dimensions that may be helpful for TAVR as follows: There is no calcification seen in the aortic root/ascending thoracic aorta. The major and minor aortic annulus diameter measures 26.9 and 20.9 mm, re spectively. The aortic annulus perimeter measured 76 mm and the cross-sectional area measures 436 mm2. The aortic annulus [...] 62.8-72.3 mm (26 mm valve); 72.3-81.7 mm (29 mm valve); and 81.7- 94.2. mm (34 mm valve). For reference purpose, per Anlai cohen, recomm endation are as follows: 23mm valve is recommended for CT perimeter between 62.8-72.3 mm; diameter between 20-23 mm; or area between 314-415.5 mm2. For 25mm valve, it is recommended for CT perimeter between 72.3-78.5 mm; diameter between 23-25 mm; or area between 415.5-490.9 mm2. For 27mm valve, it is recommended for CT perimeter between 78.5-84.8 mm; diameter between 25-27 mm; or area between 490.9-572.6 mm2. Agatston Score is 3000. The aortic valve area is 92. The distance between the take offof the RCA and the annulus (systole): 10.1 mmThe distance between the take off of the LM1 and the annulus (systole): 10.4 mm Sinus of Valsalva orthogonal no diameter, measured in systole, is approximate ly 29.9 x 34.4 mm. The sinotubular junction [...] femoral artery measures 7.3 and 7.5 mm, respectivelywith minimal tortuosity and no calcific atherosclerosis present. NON-VASCULAR: The visualised thyroid gland is unremarkable. The chest wall and mediastinum appear normal ; no significant adenopathy is identified. In fact, patient only has a formal chest CT scan performed a few days ago by the Security Architect Radiologist. Refer to formal dictation for details, specifically, there is diffuse emphysematouschanges, as well as a right upper lobe mass at image 61, measuring at least 3.9 x 3.6 cm in diameterwith irregular margin, concern for lung malignancy. Correlate clinically. In the abdomen, the liver and spleen appears unremarkable. The liver edge is smooth. No abnormal enhancing structure is identified. The gallbladder wall is contracted and small gallstones are seen. No biliary ductal dilation is identified. The adrenal glands are not enlarged. The pancreas appears unremarkable. No acute renalpathology is seen and no hydronephrosis or perirenal [...] Bowel is not well assessed by CT cameron ography as enteric contrast is not given. No obvious by dilation is identified. No free air is identified abdomen and pelvis. Trace free fluid is identified in the dependent portion of the pelvis. No significant retroperitoneal adenopathy is identified. In the bony windows, no acute bony pathology is identified. However, degenerative changes is noted. No obvious blastic or lytic lesions identified. However, at L3 and L4 level, potential degenerative changes is noted. In fact, a total body bone/jointimaging has been arranged. CONCLUSIONS: 1. Patient has a diagnosis of aortic stenosis. The aortic valve appears to be bicuspid. Correlate with echocardiography. The aortic Agatston Score is 3000 andaortic valve area is 92 mm2. No mitral [...] ago. Refer to formal CT report by Security Architect Radiologist for details. Pertinent findings include emphysematous changes as well as lung mass identified in the right upper lobe measure at least 3.9 x 3.6 cm with regular margin. Lung malignancy. 4. Other findings as described above. A hypodensity is identified in the posterior aspect of the right kidney that may demonstrate some enhancement. 5. An addendum will be dictated regarding the non-vascular findings by the Security Architect Radiologist. Signed: Ricardo Broussard MDReport Verified Date/Time: 11/03/2019 07:39:57 [facility] W/PLT COUNT & AUTO DIFFERENTIAL 2019-11-03 05:57:00 Test Item Value Reference Range Interpretation Comments WHITE BLOOD CELL COUNT (BEAKER) 7.1 K/ L 3.5-10.5 (test code = 775) RED BLOOD CELL COUNT (BEAKER) 3.24 M/ L 3.93-5.22 L (test code = 761) HEMOGLOBIN (BEAKER) (test code = 11.4 GM/DL 11.2-15.7 410) HEMATOCRIT (BEAKER) (test code = 34.2 % 34.1-44.9 411) MEAN CORPUSCULAR VOLUME (BEAKER) 105.6 fL 79.4-94.8 H (test code = 753) MEAN CORPUSCULAR HEMOGLOBIN 35.2 pg 25.6-32.2 H (BEAKER) (test code = 751) MEAN CORPUSCULAR HEMOGLOBIN CONC 33.3 GM/DL 32.2-35.5 (BEAKER) (test code = 752) RED CELL DISTRIBUTION WIDTH 16.0 % 11.7-14.4 H (BEAKER) (test code = 412) PLATELET COUNT (BEAKER) (test 221 K/CU MM 150-450 code = 756) MEAN PLATELET VOLUME (BEAKER) 9.5 fL 9.4-12.3 (test code = 754) NUCLEATED RED BLOOD CELLS 0 /100 WBC 0-0 (BEAKER) (test code = 413) NEUTROPHILS RELATIVE PERCENT 83 % (BEAKER) (test code = 429) LYMPHOCYTES RELATIVE PERCENT 7 % (BEAKER) (test code = 430) MONOCYTES RELATIVE PERCENT 9 % (BEAKER) (test code = 431) EOSINOPHILS RELATIVE PERCENT 1 % (BEAKER) (test code = 432) BASOPHILS RELATIVE PERCENT 0 % (BEAKER) (test code = 437) NEUTROPHILS ABSOLUTE COUNT 5.87 K/ L 1.56-6.13 (BEAKER) (test code = 670) LYMPHOCYTES ABSOLUTE COUNT 0.52 K/ L 1.18-3.74 L (BEAKER) (test code = 414) MONOCYTES ABSOLUTE COUNT (BEAKER) 0.62 K/ L 0.24-0.36 H (test code = 415) EOSINOPHILS ABSOLUTE COUNT 0.04 K/ L 0.04-0.36 (BEAKER) (test code = 416) BASOPHILS ABSOLUTE COUNT (BEAKER) 0.01 K/ L 0.01-0.08 (test code = 417) IMMATURE GRANULOCYTES-RELATIVE 0 % 0-1 PERCENT (BEAKER) (test code = 2801) [id number] 05:13:00 Test Item Value Reference Range Interpretation Comments PHOSPHORUS (BEAKER) (test code = 3.4 mg/dL 2.3-4.7 604) Fur Finisher ID - PIAYA [id number] 05:13:00 Test Item Value Reference Range Interpretation Comments MAGNESIUM (BEAKER) (test code = 2.0 mg/dL 1.6-2.6 627) Fur Finisher ID - PIAYA LCOMPREHENSIVE METABOLIC [id number] 05:13:00 Test Item Value Reference Range Interpretation Comments TOTAL PROTEIN 5.8 gm/dL 6.0-8.3 L (BEAKER) (test code = 770) ALBUMIN (BEAKER) 3.2 g/dL 3.5-5.0 L (test code = 1145) ALKALINE PHOSPHATASE 97 U/L 40-150 (BEAKER) (test code = 346) BILIRUBIN TOTAL 0.4 mg/dL 0.2-1.2 (BEAKER) (test code = 377) SODIUM (BEAKER) (test 137 meq/L 136-145 code = 381) POTASSIUM (BEAKER) 3.6 meq/L 3.5-5.1 (test code = 379) CHLORIDE (BEAKER) 107 meq/L 98-107 (test code = 382) CO2 (BEAKER) (test 23 meq/L 22-29 code = 355) BLOOD UREA NITROGEN 11 mg/dL 7-21 (BEAKER) (test code = 354) CREATININE (BEAKER) 0.54 mg/dL 0.57-1.25 L (test code = 358) GLUCOSE RANDOM 134 mg/dL 70-105 H (BEAKER) (test code = 652) CALCIUM (BEAKER) 8.7 mg/dL 8.4-10.2 (test code = 697) AST (SGOT) (BEAKER) 21 U/L 5-34 (test code = 353) ALT (SGPT) (BEAKER) 23 U/L 6-55 (test code = 347) EGFR (BEAKER) (test 114 ESTIMATE D GFR IS code = 1092) mL/min/1.73 sq NOT ACCURA TE m CREATININE CLEARANCE IN PREDICTING GLOMERULAR FILTRATION RATE . ESTIMATED GFR I S NOT APPLICABLE FOR DIALYSIS PATIEN TS. Fur Finisher ID - PIAYA LPOCT-GLUCOSE [id number] 22:07:00 Test Item Value Reference Range Interpretation Comments POC-GLUCOSE METER 157 mg/dL 70-110 H : Notified RN/MD: (MIKE) (test code = TESTED AT [facility] 6720 1538) [facility], [id number]: Fur Finisher/Techni logan ID = [id number] for CHEN LI Carotid doppler [id number] 18:11:58Ejection FractionSLEH ECHO HEARTLAB MKCKESSON CPACSRight Impression1. There is <50% diameter reduction (approximately 11% by 2-D measurement)in the internal carotid artery with a peak velocity of 69/26 cm/sec andheterogeneous plaque.2. There is no stenosis in the external carotid artery.3. The common carotid artery is within normal limits.4. The vertebral artery flow is antegrade.5. The subclavianartery is within normal limits where visualized.Left Impression1. The internal carotid artery is within normal limits.2. There is no stenosis in the external carotid artery.3. The common carotid arteryis within normal limits.4. The vertebral artery flow is antegrade.5. The subclavian artery is withinnormal limits where visualized. Conclusions Summary Carotid duplex scanning and color flow imaging were performed bilaterally. The arteries were adequately visualized. The right internal carotid artery had <50% hemodynamically insignificant stenosis (approximately 11% by 2-D measurement) with heterogeneous plaque. The left internal carotid artery had no areas of stenosis. The vertebral artery flow was antegrade bilaterally. Signature --- Velocities are measured in cm/s ; Diameters are measured in cm Carotid Right Measurements+---------+----+----+-----+ + + +!Location !PSV !EDV !Angle!%Stenosis 2D !%Stenosis Doppler !Tortuosity ! +---------+----+----+-----+ + + +!Pro x CCA !88 !40.9!60 ! ! ! !+---------+----+----+-----+ +--------- + +!Mid CCA !50.3! !60 ! ! ! !+---------+----+----+-----+ + + +!Di st CCA !53.4!33.8!60 ! ! ! !+---------+----+----+-----+ +-------- + +!Prox ICA !69.5!26.7!60 !11% !<50% ! !+---------+----+----+-----+ + + +!Di st ICA !51.9!31.4!60 ! ! ! !+---------+----+----+-----+ +---- + +!Prox ECA !39.3!16.5!60 ! ! ! !+---------+----+----+-----+ + + +!Ve rtebral!39.7!17.7!60 ! ! ! !+---------+----+----+-----+ + + + - There is antegrade vertebral flow noted on the right side. - Additional Measurements:ICAPSV/CCAPSV 1.3.ICAEDV/CCAEDV 0.77. Carotid Left Measurements+ -+----+----+-----+ + + +!Location !PSV !EDV !Angle!%Stenosis 2D!%Stenosis Doppler!Tortuosity !+ +----+----+-----+ + +- +!Prox CCA !88.5!35.2!60 ! ! ! !+ --+----+----+-----+ + + +!Dist CCA !76.8!31.1!60 ! ! ! !+ +----+----+-----+ + + +!Prox ICA !57.5!27 !60 ! !Normal ! !+ ---+----+----+-----+ + + +!Dist ICA !61 !33.4!60 ! ! ! !+ +----+----+-----+ + + +!Prox ECA !56.3!21.7!60 ! ! ! !+ ----+----+----+-----+ + + +!Vertebral !62.1!21.7!60 ! ! ! !+ +----+----+-----+ + -+ +!Prox Subclavian!63.3!11.1!60 ! ! ! !+ -----+----+----+-----+ + + + - There is antegrade vertebral flow noted on the left side. - Additional Measurements:ICAPSV/CCAPSV 0.79.ICAEDV/CCAEDV 0.95. Interface, External Ris In - 11/02/2019 6:12 PM [facility] LAB - Carotid Duplex Study Demographics Patient Name QUIANA VALLADARES Date of Study 11/02/2019 Age 64 Visit Number [id number] Gender Female Accession Number [id number] Date of 1955 Referring Minna Cadet Room Number C634 Physician Rodrigo Swager Operator Amy De La Paz Interpreting Christa Carter RN, T Physician ProcedureType of Study: Cerebral: Carotid, CAROTID DOPPLER, BILATERAL. Indications for Study:Pre op TVAR.Patient Status:Routine.Study Location:Vascular Lab.Technical Quality:Adequate visualization.Risk FactorsHistory of Disease+----- +----+ +!Diagnosis !Date!Comments !+ +----+ +!History/Risk Factors: ! !Cancer, HTN, DM !+---- +----+ +Impressio nsRight Impression1.There is <50% diameter reduction (approximately 11% by 2- D measurement)in the internal carotid artery with a peak velocity of 69/26 cm/sec andheterogeneous plaque.2. There is no stenosis in the external carotid artery.3. The common carotid artery is within normal limits.4. The vertebral artery flowis antegrade.5. The subclavian artery is within normal limits where visualized.Left Impression1. Theinternal carotid artery is within normal limits.2. There is no stenosis in the external carotid artery.3. The common carotid artery is within normal limits.4. The vertebral artery flow is antegrade.5. The subclavian artery is within normal limits [...] in cm/s ; Diameters are measured in cmCarotid Right Measurements+---------+----+----+- ----+ + + +!Location !PSV !EDV !Angle!%Stenosis 2D !%Stenosis Doppler !Tortuosity !+---------+----+----+-----+ + +-------- ---+!Prox CCA !88 !40.9!60 ! ! ! !+---------+----+----+ -----+ + + +!Mid CCA !50.3! !60 ! ! ! !+---------+----+----+-----+ + +------- ----+!Dist CCA !53.4!33.8!60 ! ! ! !+---------+----+---- +-----+ + + +!Prox ICA !69.5!26.7!60 !11% !<50% ! !+---------+----+----+-----+ + +--- --------+!Dist ICA !51.9!31.4!60 ! ! ! !+---------+----+ ----+-----+ + + +!Prox ECA !39.3!16.5!60 ! ! ! !+---------+----+----+-----+ + +-- ---------+!Vertebral!39.7!17.7!60 ! ! ! !+---------+---- +----+-----+ + + + - There is antegrade vertebral flow noted on the right side. - Additional Measurements:ICAPSV/CCAPSV 1.3.ICAEDV/CCAEDV 0.77.Carotid Left M easurements+ +----+----+-----+ + +----- ------+!Location !PSV !EDV !Angle!%Stenosis 2D!%Stenosis Doppler!Tortuosity !+ +----+----+-----+------ ------+ + +!Prox CCA !88.5!35.2!60 ! ! ! !+ +----+----+-----+ + + +!Di st CCA !76.8!31.1!60 ! ! ! !+ +----+----+-----+----- -------+ + +!Prox ICA !57.5!27 !60 ! !Normal! !+ +----+----+-----+ + + +!Di st ICA !61 !33.4!60 ! ! ! !+ +----+----+-----+---- --------+ + +!Prox ECA !56.3!21.7!60 ! ! ! !+ +----+----+-----+ + + +!Ve rtebral !62.1!21.7!60 ! ! ! !+ +----+----+-----+--- ---------+ + +!Prox Subclavian!63.3!11.1!60 ! ! ! !+ +----+----+-----+ + + + - Thereis antegrade vertebral flow noted on the left side. - Additional Measurements:ICAPSV/CCAPSV 0.79.ICAEDV/CCAEDV 0.95.[facility] POCT-GLUCOSE [id number] 17:42:00 Test Item Value Reference Range Interpretation Comments POC-GLUCOSE METER 111 mg/dL 70-110 H : [facility]ER[facility] (test code = [facility], 1538) [address]: Fur Finisher/Techni logan ID = [id number] for YULIA OJEDA POCT-GLUCOSE [id number] 13:32:00 Test Item Value Reference Range Interpretation Comments POC-GLUCOSE METER 125 mg/dL 70-110 H : [facility] ([facility]AKER[facility] (test code = [facility], 1538) [address]: Fur Finisher/Techni logan ID = [id number] for YULIA OJEDA POCT-GLUCOSE [id number] 13:17:00 Test Item Value Reference Range Interpretation Comments POC-GLUCOSE METER 123 mg/dL 70-110 H : Notified RN/MD: ([facility]) (test code = TESTED AT [place] [id number] 1538) [facility], [address]: Fur Finisher/Techni logan ID = [id number] for NADIA LANTIGUA, COSHA POCT-GLUCOSE [id number] 10:19:00 Test Item Value Reference Range Interpretation Comments POC-GLUCOSE METER 116 mg/dL 70-110 H : [facility] (BEAKER) (test code = [facility], 1538) [address]: Fur Finisher/Techni logan ID = [id number] for NADIA OMAS, COSHA [id number] 05:40:00 Test Item Value Reference Range Interpretation Comments PHOSPHORUS (BEAKER) (test code = 3.0 mg/dL 2.3-4.7 604) Fur Finisher ID - RAMIRO [id number] 05:40:00 Test Item Value Reference Range Interpretation Comments MAGNESIUM (BEAKER) (test code = 2.1 mg/dL 1.6-2.6 627) Fur Finisher ID - RAMIRO WCOMPREHENSIVE METABOLIC [id number] 05:40:00 Test Item Value Reference Range Interpretation Comments TOTAL PROTEIN 5.6 gm/dL 6.0-8.3 L (BEAKER) (test code = 770) ALBUMIN (BEAKER) 3.1 g/dL 3.5-5.0 L (test code = 1145) ALKALINE PHOSPHATASE 100 U/L 40-150 (BEAKER) (test code = 346) BILIRUBIN TOTAL 0.2 mg/dL 0.2-1.2 (BEAKER) (test code = 377) SODIUM (BEAKER) (test 140 meq/L 136-145 code = 381) POTASSIUM (BEAKER) 3.9 meq/L 3.5-5.1 (test code = 379) CHLORIDE (BEAKER) 109 meq/L 98-107 H (test code = 382) CO2 (BEAKER) (test 25 meq/L 22-29 code = 355) BLOOD UREA NITROGEN 10 mg/dL 7-21 (BEAKER) (test code = 354) CREATININE (BEAKER) 0.57 mg/dL 0.57-1.25 (test code = 358) GLUCOSE RANDOM 162 mg/dL 70-105 H (BEAKER) (test code = 652) CALCIUM (BEAKER) 8.6 mg/dL 8.4-10.2 (test code = 697) AST (SGOT) (BEAKER) 27 U/L 5-34 (test code = 353) ALT (SGPT) (BEAKER) 30 U/L 6-55 (test code = 347) EGFR (BEAKER) (test 107 ESTIMATE D GFR IS code = 1092) mL/min/1.73 sq NOT ACCURA TE m CREATININE CLEARANCE IN PREDICTING GLOMERULAR FILTRATION RATE . ESTIMATED GFR I S NOT APPLICABLE FOR DIALYSIS PATIEN TS. Fur Finisher ID - RAMIRO WCBC W/PLT COUNT & AUTO [id number] 05:22:00 Test Item Value Reference Range Interpretation Comments WHITE BLOOD CELL COUNT (BEAKER) 5.7 K/ L 3.5-10.5 (test code = 775) RED BLOOD CELL COUNT (BEAKER) 3.28 M/ L 3.93-5.22 L (test code = 761) HEMOGLOBIN (BEAKER) (test code = 11.5 GM/DL 11.2-15.7 410) HEMATOCRIT (BEAKER) (test code = 35.1 % 34.1-44.9 411) MEAN CORPUSCULAR VOLUME (BEAKER) 107.0 fL 79.4-94.8 H (test code = 753) MEAN CORPUSCULAR HEMOGLOBIN 35.1 pg 25.6-32.2 H (BEAKER) (test code = 751) MEAN CORPUSCULAR HEMOGLOBIN CONC 32.8 GM/DL 32.2-35.5 (BEAKER) (test code = 752) RED CELL DISTRIBUTION WIDTH 16.3 % 11.7-14.4 H (BEAKER) (test code = 412) PLATELET COUNT (BEAKER) (test 207 K/CU MM 150-450 code = 756) MEAN PLATELET VOLUME (BEAKER) 9.4 fL 9.4-12.3 (test code = 754) NUCLEATED RED BLOOD CELLS 0 /100 WBC 0-0 (BEAKER) (test code = 413) NEUTROPHILS RELATIVE PERCENT 79 % (BEAKER) (test code = 429) LYMPHOCYTES RELATIVE PERCENT 10 % (BEAKER) (test code = 430) MONOCYTES RELATIVE PERCENT 10 % (BEAKER) (test code = 431) EOSINOPHILS RELATIVE PERCENT 1 % (BEAKER) (test code = 432) BASOPHILS RELATIVE PERCENT 0 % (BEAKER) (test code = 437) NEUTROPHILS ABSOLUTE COUNT 4.53 K/ L 1.56-6.13 (BEAKER) (test code = 670) LYMPHOCYTES ABSOLUTE COUNT 0.55 K/ L 1.18-3.74 L (BEAKER) (test code = 414) MONOCYTES ABSOLUTE COUNT (BEAKER) 0.56 K/ L 0.24-0.36 H (test code = 415) EOSINOPHILS ABSOLUTE COUNT 0.05 K/ L 0.04-0.36 (BEAKER) (test code = 416) BASOPHILS ABSOLUTE COUNT (BEAKER) 0.01 K/ L 0.01-0.08 (test code = 417) IMMATURE GRANULOCYTES-RELATIVE 1 % 0-1 PERCENT (BEAKER) (test code = 2801) POCT-GLUCOSE [id number] 22:30:00 Test Item Value Reference Range Interpretation Comments POC-GLUCOSE METER 173 mg/dL 70-110 H : TESTED A T [facility] 6720 (BEAKER) (test code = [place], 1538) [address]: Fur Finisher/Techni logan ID = [id number] for BIBIANA ACOSTA Pulmonary Funct Lab [id number] 17:02:00Leny Almonte, ROUSTABOUT PUSHER, PUMP TESTER 11/01/2019 5:[address] [facility] PFT CHARTING REPORT Infection Control/Hand Hygiene procedures followed throughout the encounter with patient: YesPatient Identification Method: Patient name verified on armband, and Medical record on armband, Is the order complete?: Yes Account ID#: [id number] Name: Quiana Valladares Birthdate: 1955 Age: 64 y.o. Sex: female Admission Date: 10/30/2019 Patient Status: Inpatient Reasons/Symptom for having the Test?: a history/complaint of a dyspnea Type of study/treatment ordered by physician: Bedside Spirometry with bronchodilators Lab Results Component Value Date HGB 10.8 (L) 11/01/2019 Ranges: Adult Male 13 - 16.8 g/dl Adult Female 12 - 15 g/dl 6 Minute Walk (read only) 11/01/2019 11/01/2019 11/01/2019 Pulse - 86 69 SpO2 98 98 - StudyDate: 11/01/19 Study Time: 1702 ASSESSMENT History & Physical Mode of Arrival: Testing was performed at patient bedside Pulse: 82 Resp: 19 SPO2: 98 % on RA Pain Assessment Pain:None TESTING/THERAPEUTICS Medications ordered or required for procedure: Albuterol, PT EDUCATION/INSTRUCTIONS Barriers to learning: No known barriers to learning. Learning need identified: Yes, Patient/Family/Guradian was informed of the ordered study by the physician Barriers to performing study or treatment: Patient has no known disability to perform the study or treatment. DISCHARGE The study was completed in accordance with the physician's order and patient released from the lab without adverse outcome.[facility] W/Doppler(CW/PW/Color)2019-11-01 16:21:59Ejection FractionSLEH ECHO HEARTLAB MKCKESSON CPACSInterface, External Ris In - 11/01/2019 4:22 PM CSTTransthoracic Echocardiography Report (TTE) Demographics Patient Name QUIANA VALLADARES Date of Study 11/01/2019 KARINA Gender Female Visit Number [id number] Race Room Number C634-2 Number Date of 1955 Referring Physician Helio Buitrago MD Age 64 year(s) Swager Operator Delmar Gotti [facility] Machine Quilt Stuffer Asaf Rankin Interpreting Physician JONO Deluca Procedure Type of Study TTE procedure:2DECHO W DOPPLER(CW/PW/COLOR) (STAT) Indications:Routine follow up of valve stenosis with no clinical change.Clinical HistoryHGB 10.8HCT 32.6 %, COLORECTAL CA (S/P CHEMORADIATION 2015), NEWLY DX LUNG MASS, COPD, R/LCATH (11/01/19)Height: 65 inches Weight: 52.62 kg (116 lbs) BSA: 1.57 m^2 BMI: 19.3 kg/m^2HR: 80 bpm BP: 120/75 mmHg Summary HGB 10.8 HCT 32.6 % 1. Normal LV size and function. Allsegments contract low normally. LVEF is lower limits of normal (50-55%) . 2. Normal RV size and function. 3. Severe aortic stenosis. AoV area at rest by continuity equation is in the range of 0.66 cm2 AoV resting Peak/Mean Gradient 84.66/54.08mmHg. 4. Estimated peak systolic pressure is at least 30-35 mmHg. 5. Grade 1 diastolic dysfunction (impaired relaxation and low-normal LA pressure) Previous Study No prior exam available for comparison. Signature Findings Left Ventricle The left ventricle is chamber size (by vol index) is moderately enlarged (female - LVED vol -71-80ml/m2). Normal LVwall thickness. All of the LV segments contract low normally . Global LV systolic function lower limits of normal . LVEF by Gutierrez's method of disk assessment is lower limits of normal (50- 55%) . The LVEF was measured using Gutierrez's bi-plane method of disk . Grade 1 diastolic dysfunction (impaired relaxation and low-normal LA pressure). Left Atrium LA size is mildly enlarged (35-41ml/m2) . Right Ventricle The right ventricular chamber size and systolic function are within normal limits. Right Atrium RA cavity size is normal . Aortic Valve Severe AoV cusp calcification. AoV cusp mobility is severely decreased . Severe aortic stenosis. AoV area at rest by continuity equation is in the range of 0.66 cm2. AoV resting dimensionless obstructive index (DOI) 0.19. AoV resting Peak/Mean Gradient 84.66/54.08mmHg. Mitral Valve Mild mitral annular calcification. Tricuspid Valve Mild tricuspid regurgitation. Peak systolic pressure maybe underestimated; partial TR signal. Estimated peak systolic pressure is at least 30-35 mmHg. Pulmonic Valve PV is not well visualized; function appears normal by Doppler visualized. Aorta Aortic root size (SInus of Valsalva diameter) is normal . Pericardium No significant pericardial effusion is visualized. IVC/SVC/PA/PV/Pleural The estimated RA [...] 2.51 cm Aorta Ao Root S of Xenia.: 2.87 cm Doppler/Quantitative Measurements Mitral Valve MV Peak E-Wave: 0.74 m/s MV Peak A-Wave: 1.19 m/sE/A Ratio: 0.63 Peak Gradient: 2.2 mmHg Deceleration Time: 266.9 msec MV Michael. Peak: Tissue Doppler E' Septal Velocity: 0.08 m/s E/E': 9.21 E' Lateral Velocity: 0.09 m/s Aortic Valve Peak Velocity: 4.6 m/s Mean Velocity: 3.47 m/s Peak Gradient: 84.66 mmHg Mean Gradient: 54.08 mmHgAV Area (continuity): 0.66 cm^2 AV VTI: 110.58 cm AV DVI: 0.19 LVOT Peak Velocity: 0.8 m/s Peak Gradient: 2.53 mmHg Mean Velocity: 0.66 m/s Mean Gradient: 1.84 mmHg LVOT Diameter: 2.13 cm LVOT VTI: 20.51 cm LVOT Area: 3.56 cm^2 LVOT SV:73.05 ml LVOT CO: 5.84 l/min LVOT CI: 3.72 l/min/m^2 Tricuspid Valve TR Velocity: 2.39 m/s TRGradient: 22.84 mmHgCHI [facility] CampusCT-GLUCOSE [id number] 13:31:00 Test Item Value Reference Range Interpretation Comments POC-GLUCOSE METER 187 mg/dL 70-110 H : Not[facility] RN[facility]MD: [facility] (test code = TESTED AT [place] [address] 1538) [facility], [address]: Fur Finisher/Techni logan ID = [id number] for MARCO RIVERA, [id number] 06:53:00 Test Item Value Reference Range Interpretation Comments ABO Grouping (test code = 2588) O Rh Factor (test code = 2589) POS [facility] CampusCT-GLUCOSE [id number] 06:37:00 Test Item Value Reference Range Interpretation Comments POC-GLUCOSE METER 130 mg/dL 70-110 H : TESTED A T [place] [address] ([facility]) (test code = LORELEI Jordan [facility], 1538) [address]: Fur Finisher/Techni logan ID = [id number] for ISHAN JENSEN [id number] 06:06:00 Test Item Value Reference Range Interpretation Comments PHOSPHORUS ([facility]) (test code = 3.8 mg/dL 2.3-4.7 604) Fur Finisher ID - RAMIRO [id number] 06:06:00 Test Item Value Reference Range Interpretation Comments MAGNESIUM ([facility]) (test code = 2.1 mg/dL 1.6-2.6 627) Fur Finisher ID - RAMIRO WCOMPREHENSIVE METABOLIC [id number] 06:06:00 Test Item Value Reference Range Interpretation Comments TOTAL PROTEIN 5.6 gm/dL 6.0-8.3 L (BEAKER) (test code = 770) ALBUMIN (BEAKER) 3.1 g/dL 3.5-5.0 L (test code = 1145) ALKALINE PHOSPHATASE 104 U/L 40-150 (BEAKER) (test code = 346) BILIRUBIN TOTAL 0.4 mg/dL 0.2-1.2 (BEAKER) (test code = 377) SODIUM (BEAKER) (test 140 meq/L 136-145 code = 381) POTASSIUM (BEAKER) 3.6 meq/L 3.5-5.1 (test code = 379) CHLORIDE (BEAKER) 107 meq/L 98-107 (test code = 382) CO2 (BEAKER) (test 28 meq/L 22-29 code = 355) BLOOD UREA NITROGEN 7 mg/dL 7-21 (BEAKER) (test code = 354) CREATININE (BEAKER) 0.56 mg/dL 0.57-1.25 L (test code = 358) GLUCOSE RANDOM 126 mg/dL 70-105 H (BEAKER) (test code = 652) CALCIUM (BEAKER) 8.9 mg/dL 8.4-10.2 (test code = 697) AST (SGOT) (BEAKER) 39 U/L 5-34 H (test code = 353) ALT (SGPT) (BEAKER) 36 U/L 6-55 (test code = 347) EGFR (BEAKER) (test 110 ESTIMATE D GFR IS code = 1092) mL/min/1.73 sq NOT ACCURA TE m CREATININE CLEARANCE IN PREDICTING GLOMERULAR FILTRATION RATE . ESTIMATED GFR I S NOT APPLICABLE FOR DIALYSIS PATIEN TS. Fur Finisher ID - RAMIRO WPROTHROMBIN [id number] 06:00:00 Test Item Value Reference Range Interpretation Comments PROTIME (BEAKER) (test code = 12.5 seconds 11.9-14.2 759) INR (BEAKER) (test code = 370) 1.0 <=5.9 Effective 01/25/2019: PT Reference Range ChangeNew: 11.9-14.2 Previous: 11.7- 14.7RECOMMENDED COUMADIN/WARFARIN INR THERAPY RANGESSTANDARD DOSE: 2.0-3.0 Includes: PROPHYLAXIS for venous thrombosis, systemic embolization; TREATMENT for venous thrombosis and/or pulmonary embolus.HIGH RISK: Target INR is2.5-3.5 for patients wiht mechanical heart valves.CBC W/PLT COUNT & AUTO [id number] 05:30:00 Test Item Value Reference Range Interpretation Comments WHITE BLOOD CELL COUNT (BEAKER) 4.7 K/ L 3.5-10.5 (test code = 775) RED BLOOD CELL COUNT (BEAKER) 3.07 M/ L 3.93-5.22 L (test code = 761) HEMOGLOBIN (BEAKER) (test code = 10.8 GM/DL 11.2-15.7 L 410) HEMATOCRIT (BEAKER) (test code = 32.6 % 34.1-44.9 L 411) MEAN CORPUSCULAR VOLUME (BEAKER) 106.2 fL 79.4-94.8 H (test code = 753) MEAN CORPUSCULAR HEMOGLOBIN 35.2 pg 25.6-32.2 H (BEAKER) (test code = 751) MEAN CORPUSCULAR HEMOGLOBIN CONC 33.1 GM/DL 32.2-35.5 (BEAKER) (test code = 752) RED CELL DISTRIBUTION WIDTH 16.3 % 11.7-14.4 H (BEAKER) (test code = 412) PLATELET COUNT (BEAKER) (test 189 K/CU MM 150-450 code = 756) MEAN PLATELET VOLUME (BEAKER) 9.4 fL 9.4-12.3 (test code = 754) NUCLEATED RED BLOOD CELLS 0 /100 WBC 0-0 (BEAKER) (test code = 413) NEUTROPHILS RELATIVE PERCENT 77 % (BEAKER) (test code = 429) LYMPHOCYTES RELATIVE PERCENT 10 % (BEAKER) (test code = 430) MONOCYTES RELATIVE PERCENT 11 % (BEAKER) (test code = 431) EOSINOPHILS RELATIVE PERCENT 1 % (BEAKER) (test code = 432) BASOPHILS RELATIVE PERCENT 0 % (BEAKER) (test code = 437) NEUTROPHILS ABSOLUTE COUNT 3.64 K/ L 1.56-6.13 (BEAKER) (test code = 670) LYMPHOCYTES ABSOLUTE COUNT 0.49 K/ L 1.18-3.74 L (BEAKER) (test code = 414) MONOCYTES ABSOLUTE COUNT (BEAKER) 0.51 K/ L 0.24-0.36 H (test code = 415) EOSINOPHILS ABSOLUTE COUNT 0.04 K/ L 0.04-0.36 (BEAKER) (test code = 416) BASOPHILS ABSOLUTE COUNT (BEAKER) 0.01 K/ L 0.01-0.08 (test code = 417) IMMATURE GRANULOCYTES-RELATIVE 0 % 0-1 PERCENT (BEAKER) (test code = 2801) POCT-GLUCOSE [id number] 00:13:00 Test Item Value Reference Range Interpretation Comments POC-GLUCOSE METER 148 mg/dL 70-110 H : TESTED A T [facility] 6720 (BEAKER) (test code = [facility], [facility]8) [address]: Fur Finisher/Techni logan ID = [id number] for PE ISIAH, ISHAN POCT-GLUCOSE [id number] 22:12:00 Test Item Value Reference Range Interpretation Comments POC-GLUCOSE METER 140 mg/dL 70-110 H : TESTED A T [facility] 6720 (BEAKER) (test code = [facility], [facility]8) [address]: Fur Finisher/Techni logan ID = [id number] for PE ISIAH, ISHAN POCT-GLUCOSE [id number] 17:48:00 Test Item Value Reference Range Interpretation Comments POC-GLUCOSE METER 136 mg/dL 70-110 H : TESTED A T [facility] 6720 (BEAKER) (test code = [facility], [facility]8) [address]: Fur Finisher/Techni logan ID = [id number] for DA VIS, KEYAIRA POCT-GLUCOSE [id number] 08:06:00 Test Item Value Reference Range Interpretation Comments POC-GLUCOSE METER 186 mg/dL 70-110 H : TESTED A T [facility] 6720 (BEAKER) (test code = [facility], [facility]8) [address]: Fur Finisher/Techni logan ID = [id number] for DA VIS, KEYAIRA POCT-GLUCOSE [id number] 06:43:00 Test Item Value Reference Range Interpretation Comments POC-GLUCOSE METER 118 mg/dL 70-110 H : TESTED A T [facility] 6720 (BEAKER) (test code = [facility], [facility]8) [address]: Fur Finisher/Techni logan ID = [id number] for MESERET IVORY CT, CHEST WITH IV CONTRAST- PE TEST [id number] 18:23:00Reason for exam:- >chest painWhat is the patient's sedation requirement?->No SedationFINAL REPORT TECHNIQUE: CT of the chest WITH intravenous contrast (pulmonary embolism protocol). Dose modulation, iterative reconstruction, and/or weight-based adjustment of the mA/kV was utilized to reduce the radiation dose to as low as reasonably achievable. INDICATION: 64-yea r-old woman with chest pain, shortness of breath, [...] visualized thyroid gland is normal. No significant medias tinal, hilar, or axillary lymphadenopathy. The heart and pericardium are within normal limits. Atherosclerotic calcifications in the thoracic aorta and coronary arteries. SOFT TISSUES AND BONES: Unremarkable. UPPER ABDOMEN: Unremarkable. IMPRESSION:No pulmonary embolus. Centrilobular emphysema with suspected bronchitis. 3.9 cm mass in the right upper lobe, suspicious for primary lung malignancy. Additional differential consideration includes metastasis given the reported history of colon cancer. Indeterminate 3-4 mm bilateral pulmonary nodules. Signed: Vale Cox MDReport Verified Date/Time:10/30/2019 18:23:35 Reading Location: [facility] B1 C013Y CT Body Reading Room CT chest for pulmonary embolus 2019-10-30 18:23:00Interface, External Ris In - 10/30/2019 6:25 PM CSTFINAL REPORT TECHNIQUE: CT of the chest WITH intravenous contrast (pulmonary embolism protocol). Dose modulation, iterative rec onstruction, and/or weight-based adjustment of the mA/kV was utilized to reduce the radiation dose to as low as reasonably achievable. INDICATION: 64-year-old woman with chest pain, shortness [...] the reported history of colon cancer. Indeterminate 3-4 mm bilateral pulmonary nodules. Signed: Vale Cox MDReport Verified Date/Time: 10/30/2019 18:23:35 Reading Location: [facility] C013Y CT Body [facility] NATRIURETIC FACTOR (BNP)2019-10-30 16:35:00 Test Item Value Reference Range Interpretation Comments B-TYPE NATRIURETIC PEPTIDE (BEAKER) 360 pg/mL 0-100 H (test code = 700) Fur Finisher ID - BSTroponin [id number] 16:34:00 Test Item Value Reference Range Interpretation Comments Troponin I (test code = <0.01 0-0.03 72552-4) JANETTE (test code = JANETTE) Troponin I (TnI) levels must be interpreted [...] failure, acidosis, acute neurological disease, and persistent tachyarrhythmia.Opera tor ID - BS Lab Interpretation (test Normal code = 78075-5) [facility] [id number] 16:34:00 Test Item Value Reference Range Interpretation Comments TROPONIN I (BEAKER) (test code = 397) < ng/mL 0.00-0.03 Troponin I (TnI) levels [...] failure, acidosis, acute neurological disease, and persistent tachyarrhythmia.Fur Finisher ID - [id number] 16:28:00 Test Item Value Reference Range Interpretation Comments MAGNESIUM (BEAKER) (test code = 1.9 mg/dL 1.6-2.6 627) Fur Finisher ID - BSBASIC METABOLIC [id number] 16:28:00 Test Item Value Reference Range Interpretation Comments SODIUM (BEAKER) 137 meq/L 136-145 (test code = 381) POTASSIUM (BEAKER) 3.7 meq/L 3.5-5.1 (test code = 379) CHLORIDE (BEAKER) 101 meq/L 98-107 (test code = 382) CO2 (BEAKER) (test 31 meq/L 22-29 H code = 355) BLOOD UREA NITROGEN 5 mg/dL 7-21 L (BEAKER) (test code = 354) CREATININE (BEAKER) 0.65 mg/dL 0.57-1.25 (test code = 358) GLUCOSE RANDOM 106 mg/dL 70-105 H (BEAKER) (test code = 652) CALCIUM (BEAKER) 8.8 mg/dL 8.4-10.2 (test code = 697) EGFR (BEAKER) (test 92 mL/min/1.73 ESTIMA AMANDA GFR IS code = 1092) sq m NOT ACCURATE CREATININE CLEARANCE IN PREDICTING GLOMERULAR FILTRATION RATE . ESTIMATED GFR I S NOT APPLICABLE FOR DIALYSIS PATIEN TS. Fur Finisher ID - [id number] 16:26:00 Test Item Value Reference Range Interpretation Comments PROTIME (BEAKER) (test code = 12.0 seconds 11.9-14.2 759) INR (BEAKER) (test code = 370) 0.9 <=5.9 PARTIAL THROMBOPLASTIN TIME 27.7 seconds 22.5-36.0 (BEAKER) (test code = 760) Effective 01/25/2019: PT Reference Range ChangeNew: 11.9-14.2 Previous: 11.7- 14.7RECOMMENDED COUMADIN/WARFARIN INR THERAPY RANGESSTANDARD DOSE: 2.0-3.0 Includes: PROPHYLAXIS for venous thrombosis, systemic embolization; TREATMENT for venous thrombosis and/or pulmonary embolus.HIGH RISK: Target INR is2.5-3.5 for patients wiht mechanical heart valves.CBC W/PLT COUNT & AUTO [id number] 16:21:00 Test Item Value Reference Range Interpretation Comments WHITE BLOOD CELL COUNT (BEAKER) 6.2 K/ L 3.5-10.5 (test code = 775) RED BLOOD CELL COUNT (BEAKER) 3.36 M/ L 3.93-5.22 L (test code = 761) HEMOGLOBIN (BEAKER) (test code = 11.8 GM/DL 11.2-15.7 410) HEMATOCRIT (BEAKER) (test code = 35.2 % 34.1-44.9 411) MEAN CORPUSCULAR VOLUME (BEAKER) 104.8 fL 79.4-94.8 H (test code = 753) MEAN CORPUSCULAR HEMOGLOBIN 35.1 pg 25.6-32.2 H (BEAKER) (test code = 751) MEAN CORPUSCULAR HEMOGLOBIN CONC 33.5 GM/DL 32.2-35.5 (BEAKER) (test code = 752) RED CELL DISTRIBUTION WIDTH 16.1 % 11.7-14.4 H (BEAKER) (test code = 412) PLATELET COUNT (BEAKER) (test 168 K/CU MM 150-450 code = 756) MEAN PLATELET VOLUME (BEAKER) 9.0 fL 9.4-12.3 L (test code = 754) NUCLEATED RED BLOOD CELLS 0 /100 WBC 0-0 (BEAKER) (test code = 413) NEUTROPHILS RELATIVE PERCENT 81 % (BEAKER) (test code = 429) LYMPHOCYTES RELATIVE PERCENT 7 % (BEAKER) (test code = 430) MONOCYTES RELATIVE PERCENT 11 % (BEAKER) (test code = 431) EOSINOPHILS RELATIVE PERCENT 1 % (BEAKER) (test code = 432) BASOPHILS RELATIVE PERCENT 0 % (BEAKER) (test code = 437) NEUTROPHILS ABSOLUTE COUNT 5.02 K/ L 1.56-6.13 (BEAKER) (test code = 670) LYMPHOCYTES ABSOLUTE COUNT 0.40 K/ L 1.18-3.74 L (BEAKER) (test code = 414) MONOCYTES ABSOLUTE COUNT (BEAKER) 0.68 K/ L 0.24-0.36 H (test code = 415) EOSINOPHILS ABSOLUTE COUNT 0.04 K/ L 0.04-0.36 (BEAKER) (test code = 416) BASOPHILS ABSOLUTE COUNT (BEAKER) 0.01 K/ L 0.01-0.08 (test code = 417) IMMATURE GRANULOCYTES-RELATIVE 1 % 0-1 PERCENT (BEAKER) (test code = 2801) RAD, CHEST, 1 VIEW, NON [id number] 15:21:00Reason for exam:->chest pain FINAL REPORT INDICATION: chest pain COMPARISON: None TECHNIQUE: AP and lateral view of the chest. FINDINGS: Lungs and pleura: Clear lungs. No effusion.Heart and mediastinum: Normal heart size. Unremarkable mediastinal contours.Osseous structures: No acute abnormality.Other: Tip overlies the SVC. IMPRESSION: No acute intrathoracic abnormality. Signed: Arlyn Persaud MDReport Verified Date/Time: 10/30/2019 15:21:39 Reading Location: [facility] Radiology Reading Room
[2020-03-24] MEDS ORDERED: HYDROCODONE/APAP 10/325 TAB ONE (18:30)
[2020-03-24] MEDS ORDERED: DIAZEPAM 5 MG TABLET ONE (18:31)
[2020-03-24] MEDS ORDERED: IBUPROFEN 400 MG TAB ONE (18:31)
--- NOTE | 2020-03-24 18:51 | RAD REPORT ---
EXAM DESCRIPTION: RAD - Lumbar Spine 3 Views - 03/24/2020 6:35 pm CLINICAL HISTORY: Back pain FINDINGS: Moderate scoliosis No fracture or dislocation is seen. Marked spondylosis L2-3 consisting of disc space narrowing, subchondral sclerosis and osteophytes
--- NOTE | 2020-03-24 18:52 | RAD REPORT ---
EXAM DESCRIPTION: RAD - Pelvis - 03/24/2020 6:34 pm CLINICAL HISTORY: Pelvic pain status post injury FINDINGS: No fracture or dislocation is seen. The bones are osteoporotic If the patient continues to have symptoms to suggest an occult fracture then MRI would be recommended
--- NOTE | 2020-03-24 18:58 | EDPHYS ---
Physician Documentation [facility] Name: Lisa Acosta Age: 64 yrs Sex: Female : 1955 Arrival Date: 03/24/2020 Time: 17:40 Bed 17 Private MD: FADI Physician Jeb Dietrich HPI: 03/24 18:14 This 64 yrs old Female presents to ER via Ambulatory with complaints of Fall charito Injury, Leg Pain, Foot Pain. 18:14 Details of fall: The patient fell from an upright position, while walking. Onset: The charito symptoms/episode began/occurred 2 day(s) ago. Associated injuries: The patient sustained injury to the low back, decreased range of motion, pain. Severity of symptoms: At their worst the symptoms were mild, moderate, in the emergency department the symptoms are unchanged. The patient has not experienced similar symptoms in the past. Historical: - Allergies: 17:48 Bactrim DS; hb 17:48 Sulfa (Sulfonamide Antibiotics); hb - Home Meds: 17:48 aspirin 81 mg Oral chew 1 tab once daily [Active]; metformin 500 mg Oral tab 2 times hb per day [Active]; - PMHx: 17:48 36 radiations and 15 months of chemo after colon cancer.; colon cancer (February 10, 2016); hb Diabetes - NIDDM; Hypertension; - PSHx: 17:48 Hysterectomy; Hernia repair; Heart Valve replacement; hb - Immunization history:: Adult Immunizations up to date. - Social history:: Smoking status: Patient reports the use of cigarette tobacco products, smokes one-half pack cigarettes per day. ROS: 18:15 Constitutional: Negative for fever, chills, and weight loss, Eyes: Negative for injury, charito pain, redness, and discharge, ENT: Negative for injury, pain, and discharge, Neck: Negative for injury, pain, and swelling, Cardiovascular: Negative for chest pain, palpitations, and edema, Respiratory: Negative for shortness of breath, cough, wheezing, and pleuritic chest pain, Abdomen/GI: Negative for abdominal pain, nausea, vomiting, diarrhea, and constipation, : Negative for injury, bleeding, discharge, and swelling, MS/Extremity: Negative for injury and deformity, Skin: Negative for injury, rash, and discoloration, Neuro: Negative for headache, weakness, numbness, tingling, and seizure. 18:15 Back: Positive for decreased range of motion, pain at rest, pain with movement, of the lumbar area and sacrum. Exam: 18:15 Constitutional: This is a well developed, well nourished patient who is awake, alert, charito and in no acute distress. Head/Face: Normocephalic, atraumatic. Eyes: Pupils equal round and reactive to light, extra-ocular motions intact. Lids and lashes normal. Conjunctiva and sclera are non-icteric and not injected. Cornea within normal limits. Periorbital areas with no swelling, redness, or edema. ENT: Nares patent. No nasal discharge, no septal abnormalities noted. Tympanic membranes are normal and external auditory canals are clear. Oropharynx with no redness, swelling, or masses, exudates, or evidence of obstruction, uvula midline. Mucous membranes moist. Neck: Trachea midline, no thyromegaly or masses palpated, and no cervical lymphadenopathy. Supple, full range of motion without nuchal rigidity, or vertebral point tenderness. No Meningismus. Chest/axilla: Normal chest wall appearance and motion. Nontender with no deformity. No lesions are appreciated. Cardiovascular: Regular rate and rhythm with a normal S1 and S2. No gallops, murmurs, or rubs. Normal PMI, no JVD. No pulse deficits. Respiratory: Lungs have equal breath sounds bilaterally, clear to auscultation and percussion. No rales, rhonchi or wheezes noted. No increased work of breathing, no retractions or nasal flaring. Abdomen/GI: Soft, non-tender, with normal bowel sounds. No distension or tympany. No guarding or rebound. No evidence of tenderness throughout. Female : Normal external genitalia. Skin: Warm, dry with normal turgor. Normal color with no rashes, no lesions, and no evidence of cellulitis. MS/ Extremity: Pulses equal, no cyanosis. Neurovascular intact. Full, normal range of motion. Neuro: Awake and alert, GCS 15, oriented to person, place, time, and situation. Cranial nerves II-XII grossly intact. Motor strength 5/5 in all extremities. Sensory grossly intact. Cerebellar exam normal. Normal gait. Psych: Awake, alert, with orientation to person, place and time. Behavior, mood, and affect are within normal limits. 18:15 Back: pain, that is moderate, ROM is painful, normal spinal alignment noted, CVA tenderness, is absent, vertebral tenderness, is not appreciated. Vital Signs: 17:46 BP 148 / 88; Pulse 112; Resp 16; Temp 98.2; Pulse Ox 100% on R/A; Weight 58.97 kg; hb Height 5 ft. 5 in. (165.10 cm); Pain 10/10; 19:05 BP 92 / 65; Pulse 98; Resp 18; Temp 98.3(TE); Pulse Ox 100% on R/A; Pain 4/10; ks7 17:46 Body Mass Index 21.63 (58.97 kg, 165.10 cm) hb MDM: 17:53 Patient medically screened. [facility] 18:18 Data reviewed: vital signs, nurses notes. [facility] 18:24 Differential diagnosis: bursitis, arthritis, strain, chronic back pain, Fatigue charito Fracture. Differential diagnosis: contusion, fracture, sprain, strain. Data interpreted: monitoring analyst: rate is 112 beats/min, rhythm is regular, Pulse oximetry: on room air is 100 %. Test interpretation: by ED physician or midlevel provider: plain radiologic studies. Counseling: I had a detailed discussion with the patient and/or guardian regarding: the historical points, exam findings, and any diagnostic results supporting the discharge/admit diagnosis, lab results, radiology results, the need for outpatient follow up. 18:55 ED course: pt stable, pain improved, will dc and pt will follow up . [facility] 03/24 18:14 Order name: Pelvis XRAY [facility] 03/24 18:14 Order name: Lumbar Spine (3 Views) XRAY [facility] Administered Medications: 18:23 Drug: [place] 10 mg-325 mg 1 tabs Route: PO; ks7 18:23 Drug: Motrin 400 mg Route: PO; ks7 18:24 Drug: Valium 5 mg Route: PO; ks7 Disposition: 03/24/20 18:57 Discharged to Home. Impression: Fall due to bumping against object, Low back pain, Scoliosis. - Condition is Stable. - Discharge Instructions: Back Pain, Adult, Chronic Back Pain, Musculoskeletal Pain, Back Injury Prevention, Wdai-[id number], Back Pain, Adult, Zprd-[id number]. - Prescriptions for Tylenol- Codeine #3 300-30 mg Oral Tablet - take 2 tablets by ORAL route every 6 hours As needed; 24 tablet. Motrin IB 200 mg Oral Tablet - take 2 tablet by ORAL route every 6 hours As needed as needed with food; 30 tablet. Cyclobenzaprine 5 mg Oral Tablet - take 1 tablet by ORAL route 3 times per day As needed; 15 tablet. - Medication Reconciliation Form, Thank You Letter, Antibiotic Education, Prescription Opioid Use form. - Follow up: Private Physician; When: 2 - 3 days; Reason: Recheck today's complaints, Continuance of care, Re-evaluation by your physician. - Problem is new. - Symptoms have improved. Signatures: Dispatcher [employer] EDMS Jeb Dietrich MD MD cha Baxter, Heather, RN RN Arabella Jordan RN RN ks7 Corrections: (The following items were deleted from the chart) 19:09 18:57 03/24/2020 18:57 Discharged to Home. Impression: Fall due to bumping against ks7 object; Low back pain; Scoliosis. Condition is Stable. Forms are Medication Reconciliation Form, Thank You Letter, Antibiotic Education, Prescription Opioid Use. Follow up: Private Physician; When: 2 - 3 days; Reason: Recheck today's complaints, Continuance of care, Re-evaluation by your physician. Problem is new. Symptoms have improved. charito
--- NOTE | 2020-03-24 18:58 | ER ---
Nurse's Notes [facility] Name: Lsia Acosta Age: 64 yrs Sex: Female : 1955 Arrival Date: 03/24/2020 Time: 17:40 Bed 17 Private MD: Diagnosis: Fall due to bumping against object;Low back pain;Scoliosis Presentation: 03/24 17:46 Chief complaint: Bilateral hip and lower leg pain after mechanical fall from standing 8 hb days ago. Denies other injuries. Negative LOC. Coronavirus screen: Proceed with normal triage. Ebola Screen: No symptoms or risks identified at this time. Initial Sepsis Screen: Does the patient meet any 2 criteria? No. Patient's initial sepsis screen is negative. Does the patient have a suspected source of infection? No. Patient's initial sepsis screen is negative. Risk Assessment: Do you want to hurt yourself or someone else? Patient reports no desire to harm self or others. Onset of symptoms was March 16, 2020. 17:46 Method Of Arrival: Ambulatory 17:46 Acuity: KIRAN 4 hb Triage Assessment: 18:10 General: Appears in no apparent distress. uncomfortable, slender, Behavior is calm, ks7 cooperative. Pain: Complains of pain in left leg Pain currently is 8 out of 10 on a pain scale. Quality of pain is described as aching, sharp, Pain began 8 days ago. Musculoskeletal: Reports pain in left leg from fall 8 days ago. pt denies dizziness, reports mechanical fall, tripped on her dog while carrying groceries. Historical: - Allergies: 17:48 Bactrim DS; hb 17:48 Sulfa (Sulfonamide Antibiotics); hb - Home Meds: 17:48 aspirin 81 mg Oral chew 1 tab once daily [Active]; metformin 500 mg Oral tab 2 times hb per day [Active]; - PMHx: 17:48 36 radiations and 15 months of chemo after colon cancer.; colon cancer (February 10, 2016); hb Diabetes - NIDDM; Hypertension; - PSHx: 17:48 Hysterectomy; Hernia repair; Heart Valve replacement; hb - Immunization history:: Adult Immunizations up to date. - Social history:: Smoking status: Patient reports the use of cigarette tobacco products, smokes one-half pack cigarettes per day. Screenin:12 Abuse screen: Denies threats or abuse. Denies injuries from another. Nutritional ks7 screening: No deficits noted. Tuberculosis screening: No symptoms or risk factors identified. Fall Risk None identified. Assessment: 18:12 General: Reports pt comes in for continued pain to L leg after mechanical fall 8 days ks7 ago. aaox4, ambulatory. 19:05 Reassessment: Patient states feeling better. pain improved. ks7 Vital Signs: 17:46 BP 148 / 88; Pulse 112; Resp 16; Temp 98.2; Pulse Ox 100% on R/A; Weight 58.97 kg; hb Height 5 ft. 5 in. (165.10 cm); Pain 10/10; 19:05 BP 92 / 65; Pulse 98; Resp 18; Temp 98.3(TE); Pulse Ox 100% on R/A; Pain 4/10; ks7 17:46 Body Mass Index 21.63 (58.97 kg, 165.10 cm) hb ED Course: 17:40 Patient arrived in ED. ag5 17:48 Triage completed. hb 17:48 Arm band placed on. hb 17:53 Jeb Dietrich MD is Attending Physician. charito 18:06 Arabella Jordan, TANI is Primary Nurse. ks7 18:12 Patient has correct armband on for positive identification. Bed in low position. Call ks7 light in reach. Side rails up X2. 18:12 No provider procedures requiring assistance completed. Patient did not have IV access ks7 during this emergency room visit. 18:24 Patient moved to radiology. ks7 18:24 Lumbar Spine (3 Views) XRAY Sent. ks7 18:24 Pelvis XRAY Sent. ks7 18:34 Pelvis XRAY In Process Unspecified. EDMS 18:34 Lumbar Spine (3 Views) XRAY In Process Unspecified. EDMS 19:05 Resting quietly. ks7 Administered Medications: 18:23 Drug: [place] 10 mg-325 mg 1 tabs Route: PO; ks7 18:23 Drug: Motrin 400 mg Route: PO; ks7 18:24 Drug: Valium 5 mg Route: PO; ks7 Outcome: 18:57 Discharge ordered by . charito 19:05 Discharged to home ambulatory. ks7 19:05 Condition: improved 19:05 Discharge instructions given to patient, Instructed on discharge instructions, medication usage, Demonstrated understanding of instructions, medications, Prescriptions given X 3. 19:09 Patient left the ED. ks7 Signatures: Dispatcher [employer] EDWA Jeb Dietrich MD MD cha Baxter, Heather, RN RN Grazyna Abreu Kathleen, RN RN ks7
[2020-03-24 19:16] VITALS: O2SAT 100
[2020-03-24 19:18] VITALS: BP 92/65; TEMP 98.3
== END 2020-03-24 19:09 | disposition home or self-care (01) ==
LOC: ER 17:38
DX: M41.9 Scoliosis, unspecified (principal); W18.00XA Striking against unspecified object with subsequent fall, initial encounter; Y93.01 Activity, walking, marching and hiking; Y92.9 Unspecified place or not applicable; I10 Essential (primary) hypertension; E11.9 Type 2 diabetes mellitus without complications; F17.210 Nicotine dependence, cigarettes, uncomplicated; Z88.1 Allergy status to other antibiotic agents; Z88.2 Allergy status to sulfonamides; Z79.82 Long term (current) use of aspirin; Z95.4 Presence of other heart-valve replacement; Z85.038 Personal history of other malignant neoplasm of large intestine
CPT/HCPCS: 72100; 72170; 99283

== ENCOUNTER 2020-04-01 19:24 | Inpatient (IN) | payer OTHER ==
--- OUTSIDE RECORDS SUMMARY | 2020-04-01 19:29 | XMS REPORT | Clinical Summary ---
:1955 Author Organization [facility] Address [address] [place] [address] Care Team Providers Name Role Phone Pcp [...] PFO (patent for amen ovale); Thalamic stroke ([facility]); Type 2 diabetes mellitus without complication, without long-term current use of insulin ([facility]) 01/11/2020 Travel 01/11/2020 Orders Only General Internal Medicine 01/08/2020 Office Visit Cardiology Minna, Preop cardiovas cular Helio exam (Primary D x) MD Abel Sesay Mae, LVN 01/05/2020 Telephone Cardiology Ash, Pre-op Exam Fransisca Hawley 11/29/2019 Hospital Encounter General Internal Franco Gordon stroke ([facility]); - Medicine MD Yasmine Anticoagulated; 12/07/2019 Nicolasa S/P TAVR (trans catheter aortic valve replacement); Nickolas Arizmendi, Type 2 diabe bushra mellitus without complication, without long- term current use of insulin ([facility]); Essential hypertension; Tito, Aortic valve st [...] Recurrent genit al herpes; Immunocompromis ed patient ([facility]); Acute respirato ry insufficiency; Type 2 [...] (Primary Dx); - MD Ronnie COPD exacerbation ([facility]); 11/04/2019 Jude Overton Lung mass; MD Coty Smoker; Non-rheumatic a ortic stenosis; Chronic obstruc tive pulmonary disease, unspecified COPD type ([facility]); Nonrheumatic ao rtic valve stenosis; Colorectal canc er ([facility]); Squamous cell l brina cancer, right (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 Device Identifier Shelf Model / Expiration Serial / Date Lot Occl Pfo Amplatzer 25mm 9-[id number]-025 - [id number] IMPLANTS N/A: AGA MED [id number] 08/29/2024 9-[id number]-025 / Implanted: Qty: 1 on 01/11/2020 by Helio Buitrago MD Heart / [id number] Evolut Pro + Trancatheter Aortic Valve Valves N/A: MEDTRONI C [id number] 05/28/2020 [id number] / Implanted: Qty: 1 on 11/22/2019 by Jonathan Pepper MD Heart [id number] / Procedures Procedure Name Priority Date/Time Associated [...] 426 ms QTC Calculation(Bazett) 446 ms P Groton 76 degrees R Groton 49 degrees T Groton 51 degrees Normal sinus rhythm Low voltage [...] 438 ms QTC Calculation(Bazett) 422 ms R Groton 8 degrees T Groton 199 degrees Junctional rhythm Septal infarct , age undeter mined ST & T wave abnormality, 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 POCT-GLUCOSE METER Routine 11/03/2019 10:17 Resul ts for this PM [employer]BAL REGULATORY AFFAIRS MANAGER procedure are i n the results section. POCT-GLUCOSE METER Routine 11/03/2019 6:18 Resul ts for this PM [employer]LOBAL REGULATORY AFFAIRS MANAGER procedure are i n the results section. NM BONE SCAN WHOLE BODY Routine 11/03/2019 3:57 Results for this PM [employer] REGULATORY AFFAIRS MANAGER procedure are i n the results section. POCT-GLUCOSE METER Routine 11/03/2019 11:20 Resul ts for this AM [employer]BAL REGULATORY AFFAIRS MANAGER procedure are i n the results section. POCT-GLUCOSE METER Routine 11/03/2019 7:51 Resul ts for this AM [employer]BAL REGULATORY AFFAIRS MANAGER procedure are i n the results section. CBC W/PLT COUNT & AUTO Routine 11/03/2019 3:56 R esults for this DIFFERENTIAL AM GLOBAL REGULATORY AFFAIRS MANAGER procedure are i n the results section. PHOSPHORUS Routine 11/03/2019 3:56 Results for this AM GLOBAL REGULATORY AFFAIRS MANAGER procedure are i n the results section. MAGNESIUM Routine 11/03/2019 3:56 Results for this AM GLOBAL REGULATORY AFFAIRS MANAGER procedure are i n the results section. COMPREHENSIVE METABOLIC Routine 11/03/2019 3:56 Results for this PANEL AM GLOBAL REGULATORY AFFAIRS MANAGER procedure are i n the results section. CBC W/PLT COUNT & AUTO Routine 11/03/2019 3:56 R esults for this DIFFERENTIAL AM G[employer]BAL REGULATORY AFFAIRS MANAGER procedure are i n the results section. POCT-GLUCOSE METER Routine 11/02/2019 9:55 Resul ts for this PM [employer]LOBAL REGULATORY AFFAIRS MANAGER procedure are i n the results section. PERIPHERAL VASCULAR 11/02/2019 9:11 REPORT - SCAN PM GLOBAL REGULATORY AFFAIRS MANAGER CTA CHEST Routine 11/02/2019 7:17 Results for this PM GLOBAL REGULATORY AFFAIRS MANAGER procedure are i n the results section. CTA ABDOMEN & PELVIS Routine 11/02/2019 7:17 Res ults for this PM [employer]BAL REGULATORY AFFAIRS MANAGER procedure are i n the results section. TRANSFUSION SERVICE 11/02/2019 5:52 REPORT - SCAN PM [employer]BAL REGULATORY AFFAIRS MANAGER POCT-GLUCOSE METER Routine 11/02/2019 5:30 Resul ts for this PM [employer] REGULATORY AFFAIRS MANAGER procedure are i n the results section. PULMONARY FUNCTION - 11/02/2019 3:02 SCAN PM [employer]BAL REGULATORY AFFAIRS MANAGER POCT-GLUCOSE METER Routine 11/02/2019 1:16 Resul ts for this PM [employer] REGULATORY AFFAIRS MANAGER procedure are i n the results section. POCT-GLUCOSE METER Routine 11/02/2019 1:06 Resul ts for this PM [employer] REGULATORY AFFAIRS MANAGER procedure are i n the results section. POCT-GLUCOSE METER Routine 11/02/2019 10:08 Resul ts for this AM [employer]BAL REGULATORY AFFAIRS MANAGER procedure are i n the results section. CAROTID DOPPLER Routine 11/02/2019 9:27 Results for this BILATERAL AM [employer] REGULATORY AFFAIRS MANAGER procedure are i n the results section. CBC W/PLT COUNT & AUTO Routine 11/02/2019 4:38 R esults for this DIFFERENTIAL AM [employer] REGULATORY AFFAIRS MANAGER procedure are i n the results section. PHOSPHORUS Routine 11/02/2019 4:38 Results for this AM GLOBAL REGULATORY AFFAIRS MANAGER procedure are i n the results section. MAGNESIUM Routine 11/02/2019 4:38 Results for this AM [employer]BAL REGULATORY AFFAIRS MANAGER procedure are i n the results section. COMPREHENSIVE METABOLIC Routine 11/02/2019 4:38 Results for this PANEL AM GLOBAL REGULATORY AFFAIRS MANAGER procedure are i n the results section. CBC W/PLT COUNT & AUTO Routine 11/02/2019 4:38 R esults for this DIFFERENTIAL AM [employer]BAL REGULATORY AFFAIRS MANAGER procedure are i n the results section. POCT-GLUCOSE METER Routine 11/01/2019 10:18 Resul ts for this PM [employer] REGULATORY AFFAIRS MANAGER procedure are i n the results section. ECHOCARDIOGRAM REPORT - 11/01/2019 9:20 SCAN PM GLOBAL REGULATORY AFFAIRS MANAGER SPIROMETRY Routine 11/01/2019 5:02 Results for this PM [employer]BAL REGULATORY AFFAIRS MANAGER procedure are i n the results section. 2D ECHO W/ DOPPLER STAT 11/01/2019 1:22 Resul ts for this (CW/PW/COLOR) PM [employer] REGULATORY AFFAIRS MANAGER procedure are in the results section. POCT-GLUCOSE METER Routine 11/01/2019 1:20 Resul ts for this PM [employer]BAL REGULATORY AFFAIRS MANAGER procedure are i n the results section. R & L CATH / CORONARY 11/01/2019 7:35 Aortic valve ANGIOS (+/- LV) AM GLOBAL REGULATORY AFFAIRS MANAGER stenosis, etiology of cardiac valve disease unspecified POCT-GLUCOSE METER Routine 11/01/2019 6:25 Resul ts for this AM GLOBAL REGULATORY AFFAIRS MANAGER procedure are i n the results section. ABORH, MANUAL STAT 11/01/2019 5:53 Results fo r this AM GLOBAL REGULATORY AFFAIRS MANAGER procedure are i n the results section. CBC W/PLT COUNT & AUTO Routine 11/01/2019 4:44 R esults for this DIFFERENTIAL AM GLOBAL REGULATORY AFFAIRS MANAGER procedure are i n the results section. TYPE AND SCREEN, Routine 11/01/2019 4:44 Results for this AUTOMATED AM GLOBAL REGULATORY AFFAIRS MANAGER procedure are i n the results section. PROTHROMBIN TIME/INR Routine 11/01/2019 4:44 Res ults for this AM GLOBAL REGULATORY AFFAIRS MANAGER procedure are i n the results section. PHOSPHORUS Routine 11/01/2019 4:44 Results for this AM [employer] REGULATORY AFFAIRS MANAGER procedure are i n the results section. MAGNESIUM Routine 11/01/2019 4:44 Results for this AM GLOBAL REGULATORY AFFAIRS MANAGER procedure are i n the results section. COMPREHENSIVE METABOLIC Routine 11/01/2019 4:44 Results for this PANEL AM [employer]BAL REGULATORY AFFAIRS MANAGER procedure are i n the results section. CBC W/PLT COUNT & AUTO Routine 11/01/2019 4:44 R esults for this DIFFERENTIAL AM [employer] REGULATORY AFFAIRS MANAGER procedure are i n the results section. POCT-GLUCOSE METER Routine 11/01/2019 12:02 Resul ts for this AM GLOBAL REGULATORY AFFAIRS MANAGER procedure are i n the results section. POCT-GLUCOSE METER Routine 10/31/2019 10:01 Resul ts for this PM [employer] REGULATORY AFFAIRS MANAGER procedure are i n the results section. POCT-GLUCOSE METER Routine 10/31/2019 5:34 Resul ts for this PM [employer]BAL REGULATORY AFFAIRS MANAGER procedure are i n the results section. POCT-GLUCOSE METER Routine 10/31/2019 7:52 Resul ts for this AM GLOBAL REGULATORY AFFAIRS MANAGER procedure are i n the results section. POCT-GLUCOSE METER Routine 10/31/2019 6:30 Resul ts for this AM GLOBAL REGULATORY AFFAIRS MANAGER procedure are i n the results section. VENOUS DOPPLER LEGS STAT 10/30/2019 6:00 Resu lts for this BILATERAL PM GLOBAL REGULATORY AFFAIRS MANAGER procedure are i n the results section. CT CHEST PE TEST DESIGN STAT 10/30/2019 5:29 Results for this PM GLOBAL REGULATORY AFFAIRS MANAGER procedure are i n the results section. CBC W/PLT COUNT & AUTO STAT 10/30/2019 4:04 R esults for this DIFFERENTIAL PM GLOBAL REGULATORY AFFAIRS MANAGER procedure are i n the results section. PT/APTT STAT 10/30/2019 4:04 Results for this PM GLOBAL REGULATORY AFFAIRS MANAGER procedure are i n the results section. CBC W/PLT COUNT & AUTO STAT 10/30/2019 4:04 R esults for this DIFFERENTIAL PM GLOBAL REGULATORY AFFAIRS MANAGER procedure are i n the results section. TROPONIN I STAT 10/30/2019 4:04 Results for this PM [employer] REGULATORY AFFAIRS MANAGER procedure are i n the results section. B-TYPE NATRIURETIC STAT 10/30/2019 4:04 Resul ts for this FACTOR (BNP) PM G[employer]BAL REGULATORY AFFAIRS MANAGER procedure are i n the results section. MAGNESIUM STAT 10/30/2019 4:04 Results for this PM [employer] REGULATORY AFFAIRS MANAGER procedure are i n the results section. BASIC METABOLIC PANEL STAT 10/30/2019 4:04 Re sults for this (7) PM GLOBAL REGULATORY AFFAIRS MANAGER procedure are i n the results section. XR CHEST 1 VIEW STAT 10/30/2019 3:16 Results for this PORTABLE/BEDSIDE PM GLOBAL REGULATORY AFFAIRS MANAGER procedure a re in the results section. ECG 12-LEAD Routine 10/30/2019 1:25 PM GLOBAL REGULATORY AFFAIRS MANAGER Procedure Note - Interface, External Ris In - 10/30/2019 6:59 PM GLOBAL REGULATORY AFFAIRS MANAGER Ventricular Rate 88 BPM Atrial Rate 88 BPM P-R Interval 162 ms QRS Duration 92 ms Q-T Interval 384 ms QTC Calculation(Bazett) 464 ms P Groton 67 degrees R Groton 32 degrees T Groton 53 degrees Normal sinus rhythm Possible Left atrial enlarge ment Nonspecific ST abnormality Abnormal ECG No previous ECGs available ECG 12-LEAD STAT 10/30/2019 1:25 PM GLOBAL REGULATORY AFFAIRS MANAGER Resu lts for this procedure are in the results section . after 04/01/2019 Results RHYTHM STRIP - SCAN (01/15/2020 1:50 [...] W/Doppler(CW/PW/Color) (01/12/2020 9:23 AM CDT) Ejection Fraction [facility] ECHO HEAR TLAB MKCKESSON [facility] Specimen Narrative Performed At Transthoracic Echocardiography Report (T TE) [facility] ECHO HEARTLAB CKESSON [facility] Demographics Patient NameHYLTON, CARADate of Study01/12/2020 KARINA Female Visit [id number] Room [id number] Number Date of 1955Referring Phys ician Age 64 year(s)Mainspring Winder Viola Hargrove Interpreting Donato Beth MD Physician [...] 01/12/2020 KARINA Gende r Female Visit Number [id number] Race Room Number 6102 Number Date of [...] T CI: 3.16 l/min/m^2 Performing Organization Address [facility] Phone Number [facility] ECHO HEARTLAB MKCKESSON CPACS Basic metabolic panel (01/12/2020 4:56 AM CDT)Only the most recent of15 results within the time period is included. Sodium 136 136 - 145 meq/L [facility] Potassium 3.7Comment: Specimen slightly 3.5 - 5.1 meq/L I [facility] hem[facility]Van [facility]ess campus Chloride 106 98 - 107 meq/L [facility] CO2 22 22 - 29 meq/L [facility] BUN 9 7 - 21 mg/dL [facility] Creatinine 0.67Comment: Specimen 0.57 - 1.25 mg/dL [facility]zed [facility] Glucose 146 (H) 70 - 105 mg/dL [facility] Calcium 8.2 (L) 8.4 - 10.2 mg/dL [facility] EGFR 89Comment: ESTIMATED GFR IS mL/min/1.73 sq m [facility] NOT ACCURATE CREATININE [facility] CLEARANCE IN PREDICTING GLOMERULAR FILTRATION RATE. ESTIMATED GFR IS NOT APPLICABLE FOR DIALYSIS PATIENTS. Specimen Blood Narrative Performed At Sales Engineer ID - PIYANELY L [facility] MED ICA CENTER Performing Organization Address City/[facility] Phone Number [place] [phone] [place] [address] CENTER CBC (Hemogram only) (01/12/2020 4:55 AM CDT)Only the most recent of14 results within the time period is included. WBC 4.2 3.5 - 10.5 K/L [facility] RBC 3.45 (L) 3.93 - 5.22 M/L [facility] Hemoglobin 11.1 (L) 11.2 - 15.7 GM/DL [facility] Hematocrit 34.3 34.1 - 44.9 % [facility] MCV 99.4 (H) 79.4 - 94.8 fL [facility] MCH 32.2 25.6 - 32.2 pg [facility] MCHC 32.4 32.2 - 35.5 GM/DL [facility] RDW 14.6 (H) 11.7 - 14.4 % [facility] Platelets 186 150 - 450 K/CU MM [facility] MPV 9.1 (L) 9.4 - 12.3 fL [facility] nRBC 0 0 - 0 /100 WBC [facility] Specimen Blood Performing Organization Address City/State/Zipcode Phone Number [facility] [address] [place] [address] CENTER XR chest 1 view portable / bedside (01/12/2020 3:27 AM CDT)Only the most recent of3 resultswithin the time period is included. Specimen Narrative Performed At FINAL REPORT [facility] RAD, CHEST, 1 VIEW, NON DEPT INDICATION: [...] Date/Time: 01/12/2020 0 4:42:15 Performing Organization Address [facility] Centercoct Phone Number RIS POC ACTIVATED CLOTTING TIME (01/11/2020 10:51 AM CDT)Only the most recent of3 resultswithin the time period is included. Activated Clotting Time 362Comment: : 74-137 sec [facility] seconds, Baseline: TESTED [facility] [address], [address]: Sales Engineer/Leather Stamper ID = [id number] for TY RODARTE Specimen Blood Performing Organization Address [facility] Centercode Phone Number [facility] MEDICAL [address] [place] [id number] CENTER Transesophageal echo (01/11/2020 9:12 AM CDT) Ejection Fraction [facility] ECHO HEAR TLAB [facility]AirizuON [facility] Specimen Narrative Performed At Transesophageal Echocardiography Report (LINDA) [facility] ECHO HEARTLAB MKCKESSON [facility] Demographics Patient Name QUIANA VALLADARES Date of Study 01/11/2020 KARINA [id number] GenderFem dewin Visit Number [id number] RaceCauc [id number] Number [id number] Number Date of Birth1955 Referring Physician Helio Buitrago MD Age64 year(s) Mainspring Winder Rob murphy MD Physician Procedure Type of [...] is noted. Atrial septal position continuously bows ljos-kt-[id number], consistent with elevated LA pressure. There was [...] noted. Signature Findings Rhythm/BP Interventional LINDA (cpt 81176) for guidance of percutaneous intracardiac procedure. LeftNormal [...] is noted. Atrial septal position continuously bows kpxt-cn-oahjh, consistent with elevated LA pressure. PF O [...] Study 01/11/2020 KARINA Gender Female Visit Number [id number] Race [place] [address] Number Date of 1955 Referri Physician Helio Buitrago MD Age 64 year(s) Baldemar Rivas [facility] Interia eting Donato Beth MD Physici an Procedure [...] Signature Findings Rhythm/BP Interventional LINDA (cpt 9 9068) for guidance of percutaneous intracardiac procedure. Left [...] noted. Atrial septal posi tion continuously bows jxhm-hq-[id number], consistent with elevated LA pressure. PFO noted. [...] visualized. Performing Organization Address City/State/Zipcode Phone Number [facility] ECHO HEARTLAB [facility] ECG 12 lead (01/11/2020 7:34 AM CDT)Only the most recent of3 resultswithin the time period is included. Specimen Narrative Performed At Ventricular Rate 66 BPM [facility] Atrial Rate 66 BPM P-R Interval 160 ms QRS Duration 90 ms Q-T Interval 426 ms QTC Calculation(Bazett) 446 ms P Groton 76 degrees R Groton 49 degrees T Groton 51 degrees Normal sinus rhythm Low voltage [...] 426 ms QTC Calculation(Bazett) 446 ms P Groton 76 degrees R Groton 49 degrees T Groton 51 degrees Normal sinus rhythm Low voltage QRS Within normal limits When compared with ECG of 23-NOV-2019 11 :50, Significant changes have occurred Confirmed by MD Orellana Roberto ([id number]) on 01/11/2020 1:40:18 PM Performing Organization Address City/[facility] Cent[facility]ode Phone Number [facility] TRANSFUSION SERVICE REPORT - SCAN (01/09/2020 5:53 PM CDT)Only the most recent of5 resultswithin the time period is included. Narrative Performed At This result has an attachment that is no t available. SARS-CoV2/RT-PCR (Asymptomatic ONLY) (01/08/2020 10:31 AM CDT) SARS-COV2/RT-PCR Negative Not Detected, Negative [facility] NON -INTERFACED REFERENCE LABS SARS-COV-2 PERFORMING LAB CPL [facility] N ON-INTERFACED REFERENCE LABS Specimen Other Performing Organization Address City/State/Zipcode Phone Number [facility] NON-INTERFACED REFERENCE LABS Type and screen, automated (01/08/2020 9:29 AM CDT)Only the most recent of3 resultswithin the time period is included. ABO/RH AUTOMATED (BEAKER) O POSITIVE [facility] Ab Scrn NEGATIVE [facility] Specimen Blood Performing Organization Address [facility] Centercode Phone Number [address] [phone] Prothrombin time/INR (01/08/2020 9:29 AM CDT)Only the most recent of16 results within the time period is included. Protime 13.7 11.9 - 14.2 seconds [facility] INR 1.1 <=5.9 [facility] Specimen Blood Narrative Performed At Effective 01/25/2019: PT Reference Range [facility] Change New: 11.9-14.2Previous: 11.7-14.7 RECOMMENDED COUMADIN/WARFARIN INR THERAPY RANGES STANDARD DOSE: 2.0-3.0Includes: PROPHYLAXIS for venous thrombosis, systemic embolization; TREATMENT for venous thrombosis and/or pulmonary embolus. HIGH RISK: Target INR is 2.5-3.5 for patients wiht mechanical heart valves. Performing Organization Address [facility] Phone Number [address] [address] CENTER POC-Glucose meter (12/07/2019 8:02 AM CDT)Only the most recent of80 results within the time period is included. POC-Glucose Meter 115 (H)Comment: : TESTED 70 - 110 mg/dL [facility] AT [address], [address]: Sales Engineer/Leather Stamper ID = [id number] for VIVIANE KINGSTON Specimen Blood Performing Organization Address [facility] Centercode Phone Number [address] [phone] CENTER aPTT (12/07/2019 3:47 AM CDT)Only the most recent of22 resultswithin the time period is included. PTT 82.1 (H) 22.5 - 36.0 seconds [facility] Specimen Blood Narrative Performed At While on warfarin. [facility] Performing Organization Address City/State/Zipcode Phone Number [facility] [address] [place] [address] CENTER ECHOCARDIOGRAM REPORT - SCAN (12/05/2019 9:11 PM CDT) Narrative Performed At This result has an attachment that is no t available. Transesophageal echo (12/05/2019 9:26 AM CDT) Ejection Fraction [facility] ECHO HEAR TLAB [facility]ON [facility] Specimen Narrative Performed At Transesophageal Echocardiography Report (LINDA) [facility] ECHO HEARTLAB [facility] Demographics Patient Name QUIANA VALLADARES Date of Study 12/05/2019 KARINA [id number] GenderFem edwin Visit Number [id number] RaceCauc [id number] m Number [id number] Number Date of Birth1955 Referring Physician Helio Buitrago MD Age64 year(s) Mainspring Winder Rob murphy MD Physician Fellow Valery Chirinos [...] is noted. Atrial septal position continuously bows odbj-ll-dvvjk, consistent with elevated LA pressure. Intermittently, with [...] bradycardia during the exam. 3D imaging (cpt 74849) rendering with interpretation was performed. Left Normal [...] Septum noted. Atrial septal position continuously bows wyut-zu-usivw, consistent with elevated LA pressure. Intermittently, with [...] Study 12/05/2019 KARINA Gender Female Visit Number [id number] Race [place] [address] Number Date of 1955 Referri Physician Helio [...] during t he exam. 3D imaging (cpt 74016) miquel kyeing with interpretation was performed. Left [...] noted. Atrial septal posit ion continuously bows yaed-he-gamau, consistent with elevated LA pressure. Intermittently, with [...] Protime 15.9 (H) 11.9 - 14.2 seconds [facility] INR 1.3 <=5.9 [facility] PTT 90.4 (H) 22.5 - 36.0 seconds [facility] Specimen Blood Narrative Performed At Effective 01/25/2019: PT Reference Range [facility] Change New: 11.9-14.2Previous: 11.7-14.7 RECOMMENDED COUMADIN/WARFARIN INR THERAPY RANGES STANDARD DOSE: 2.0-3.0Includes: PROPHYLAXIS for venous thrombosis, systemic embolization; TREATMENT for venous thrombosis and/or pulmonary embolus. HIGH RISK: Target INR is 2.5-3.5 for patients wiht mechanical heart valves. While on warfarin. While on warfarin. Performing Organization Address City/State/Zipcode Phone Number [address] [phone] [place], [place] [phone] [facility] D-dimer (12/02/2019 5:15 AM CDT) D-Dimer, Quant 0.42 <0.50 MG/L FEU [facility] Specimen Blood Narrative Performed At Intended Use: The D-Dimer Assay can be used [facility] to aid in the diagnosis of Deep Vein Thrombosis (DVT) and Pulmonary Embolism Disease (PED). In patients with low pre-test probability, various studies concerning STA Liatest D-dimer test have reported that with a cutoff value of 0.50 MG/L FEU, the Negative Predictive Value (NPV) regarding the exclusion of thrombosis is within 95-100% range. While on warfarin. Performing Organization Address [facility]/Zipcode Phone Number [address] [address] [facility] PERIPHERAL VASCULAR REPORT - SCAN (12/01/2019 9:20 PM CDT)Only the most recent of2 resultswithin the time period is included. Narrative Performed At This result has an attachment that is no t available. Venous doppler legs bilateral (12/01/2019 9:59 AM CDT)Only the most recent of2 resultswithin the time period is included. Ejection Fraction [facility] ECHO HEAR TLAB [facility] Specimen Impressions Performed At Right Impression [facility] 1. There is no deep venous [...] At LAB - Lower Extremities DVT Study [facility] ECHO HEARTLAB [facility] Demographics Patient Name QUIANA VALLADARES Date of Study12/01/2019 [id number] Age8 2 Visit Number [id number] Female Accession Number [id number] of Birth1955 [facility] [id number] MD Stuart SonographerNomi Lara [facility] Interpreting Christa Carter Physician Procedure Type of [...] Study 12/01/2019 Ag e 64 Visit Number [id number] Ge nder Female Accession Number [id number] Da te of 1955 Referring Nickolas Coffey om Number [id number] Physician MD Nicolasa Mainspring Winder Nomi Lara RVT In terpreting Christa Carter [...] cm Performing Organization Address City/State/Zipcode Phone Number [facility] E[facility] REPORT - SCAN (11/30/2019 9:10 PM CDT) Narrative Performed At This result has an attachment that is no t available. 2D Echo W/Doppler(CW/PW/Color) (11/30/2019 4:13 PM CDT) Ejection Fraction [facility] Specimen Narrative Performed At Transthoracic Echocardiography Report (T TE) [facility] Patient Name Viji VALLADARES of Study 11/30/2019 KARINA [id number] Gender Female Visit Number [id number] [id number] Room Number [id number] Number Date of Birth1955Referring Physician Briseida Vo MD Age64 year(s)Mainspring Winder Viola Beth MD Physician Procedure Type of [...] Study 11/30/2019 KARINA Gender Female Visit Number [id number] Race [place] [address] Number Date of 1955 Referr ing Physician [...] Address City/State/Zipcode Phone Number [facility] MR brain without IV contrast (11/29/2019 11:06 PM CDT) Specimen Narrative Performed At FINAL REPORT Subtext [facility] MR, BRAIN, WITHOUT CONTRAST, MR, MRA, [...] shift or hydrocephalus. No acute intracranial hemorrhage. Zesp-lc-pilxcrqi nonspecific supratentor ial and infratentorial white matter [...] shift or hydrocephalus. No acute intracranial hemorrhage. Kukn-sh-ojhzaxjk nonspecific supratentor ial and infratentorial white matter [...] 3:14:20 Performing Organization Address City/State/Zipcode Phone Number [employer] MRA neck without IV contrast (11/29/2019 11:06 PM CDT) Specimen Narrative Performed At FINAL REPORT [employer] MR, BRAIN, WITHOUT CONTRAST, MR, MRA, NE [...] shift or hydrocephalus. No acute intracranial hemorrhage. Kken-gg-jmpiaoty nonspecific supratentor ial and infratentorial white matter [...] shift or hydrocephalus. No acute intracranial hemorrhage. Jxxz-yv-odeunvkt nonspecific supratentor ial and infratentorial white matter [...] 3:14:20 Performing Organization Address City/State/Zipcode Phone Number [facility] MRA head without IV contrast (11/29/2019 11:06 PM CDT) Specimen Narrative Performed At FINAL REPORT [facility] MR, BRAIN, WITHOUT CONTRAST, MR, MRA, NE [...] shift or hydrocephalus. No acute intracranial hemorrhage. Oseb-jg-irbfxtsx nonspecific supratentor ial and infratentorial white matter [...] shift or hydrocephalus. No acute intracranial hemorrhage. Rltz-mh-qcacaali nonspecific supratentor ial and infratentorial white matter [...] 3:14:20 Performing Organization Address City/State/Zipcode Phone Number [facility] Platelet count (11/29/2019 9:09 PM CDT) Platelets 256 150 - 450 K/CU MM [facility] Specimen Blood Narrative Performed At Sales Engineer ID - [id number] [facility] Performing Organization Address City/State/Zipcode Phone Number [facility] [address] [place] [address] CENTER Hemoglobin A1c (11/29/2019 9:09 PM CDT) Hemoglobin A1C 5.7 4.3 - 6.1 % [facility] Specimen Blood Performing Organization Address City/[facility]/Zipcode Phone Number [address] [address] [place] Lipid panel (11/29/2019 9:09 PM CDT) Triglycerides 143 mg/dL [facility] Cholesterol 158 mg/dL [facility] HDL 45 mg/dL [facility] LDL Calculated 84 mg/dL [facility] Specimen Blood Narrative Performed At Triglyceride Reference Range: [facility] Low Risk <150 [id number] High Risk 200-499 Very High Risk>=500 Cholesterol Reference Range: Low Risk <200 Wtutjcffxd411-055 High Risk>240 HDL Cholesterol Reference Range: Low Risk >=60 High Risk <40 LDL Cholesterol Reference Range: Optimal<100 Near Vypeyoa704-655 Hcqdfkbdsz575-715 Qcgf625-014 Very High >=190 Sales Engineer ID - DB Performing Organization Address City/[facility] Phone Number [address] [address] CENTER Vitamin B12 and Folate (11/29/2019 9:08 PM CDT) Vitamin B12 335 213 - 816 pg/mL [facility] Folate 11.7 >=7.0 ng/mL [facility] Specimen Blood Narrative Performed At Sales Engineer ID - DB [facility] Performing Organization Address City/[facility]/Zipcode Phone Number [address] [address] CENTER TSH/Free T4 If Indicated (11/29/2019 9:08 PM CDT) TSH 0.87 0.35 - 4.94 uIU/mL [facility] Specimen Blood Narrative Performed At Sales Engineer ID - DB [facility] Performing Organization Address City/State/Zipcode Phone Number [facility] [address] [place] [address] CENTER VASCULAR DIAGRAM -SCAN (11/27/2019 1:31 PM CDT)Only the most recent of3 results within the time period is included. Narrative Performed At This result has an attachment that is no t available. Phosphorus (11/26/2019 4:39 AM CDT)Only the most recent of13 resultswithin the time period is included. Phosphorus 4.3 2.3 - 4.7 mg/dL [facility] Specimen Blood Narrative Performed At Sales Engineer ID - DB [facility] Performing Organization Address [facility] Centercode Phone Number [address] [address] [place] Magnesium (11/26/2019 4:39 AM CDT)Only the most recent of14 resultswithin the time period is included. Magnesium 2.1 1.6 - 2.6 mg/dL [facility] Specimen Blood Narrative Performed At Sales Engineer ID - DB [facility] Performing Organization Address City/[facility] Cent[facility]ode Phone Number [phone] [place] CT brain without IV contrast (11/24/2019 10:45 AM CDT) Specimen Narrative Performed At FINAL REPORT Subtext [facility] CT Head without contrast CLINICAL HISTORY: [...] MD Report Verified Date/Time:11/24/2019 11:04:11 Reading Location: [address] Procedure Note Interface, External Ris In [...] Verified Date/Time: 11/24/2019 1 1:04:11 Reading Location: [address] Room Performing Organization Address City/State/Zipcode Phone Number [employer] ECHOCARDIOGRAM REPORT - SCAN (11/23/2019 9:11 PM CDT) Narrative Performed At This result has an attachment that is no t available. 2D Echo W/Doppler(CW/PW/Color) (11/23/2019 8:55 AM CDT) Ejection Fraction [facility] Specimen Narrative Performed At Transthoracic Echocardiography Report (T TE) [facility] Demographics Patient NameHYLTON, QUIANA Date of Study11/23/2019 KARINA Gender Female Visit [id number] Race Long molina [id number] Number Date of 1955 ReferringJoseph Syeda Amato MD Age 64 year(s) SonAndrea Quintero, [facility] Mft Remy Beth MD Physician Procedure Type of [...] Study 11/23/2019 KARINA Gender Female Visit Number [id number] Race [id number] Number Date of 1955 Referrin joo Morillo Physicia n MD Shantelle Age 64 year(s) Sonograp her Karla Quintero, [facility] Mft Remy Beth MD Physicia n Procedure Type [...] included. WBC 6.4 3.5 - 10.5 K/L [facility] RBC 3.11 (L) 3.93 - 5.22 M/L [facility] Hemoglobin 10.5 (L) 11.2 - 15.7 GM/DL [facility] Hematocrit 31.9 (L) 34.1 - 44.9 % [facility] MCV 102.6 (H) 79.4 - 94.8 fL [facility] MCH 33.8 (H) 25.6 - 32.2 pg [facility] MCHC 32.9 32.2 - 35.5 GM/DL [facility] RDW 14.6 (H) 11.7 - 14.4 % [facility] Platelets 151 150 - 450 K/CU MM [facility] MPV 8.9 (L) 9.4 - 12.3 fL [facility] nRBC 0 0 - 0 /100 WBC [facility] % Neutros 86 % [facility] % Lymphs 6 % [facility] % Monos 7 % [facility] % Eos 1 % [facility] % Baso 0 % [facility] # Neutros 5.52 1.56 - 6.13 K/L [facility] # Lymphs 0.40 (L) 1.18 - 3.74 K/L [facility] # Monos 0.42 (H) 0.24 - 0.36 K/L [facility] # Eos 0.05 0.04 - 0.36 K/L [facility] # Baso 0.01 0.01 - 0.08 K/L [facility] Immature 1 0 - 1 % [facility] Granulocytes-Relative [facility] Specimen Blood Performing Organization Address [facility] Centercode Phone Number [address] [address] [place] Potassium-Stat Lab (11/22/2019 10:45 AM CDT) Potassium 3.7 3.6 - 5.5 meq/L [facility] Specimen Blood, Arterial Performing Organization Address [facility] Phone Number [address] [address] [place] Sodium Na-Stat Lab (11/22/2019 10:45 AM CDT) Sodium 137 135 - 148 meq/L [facility] Specimen Blood, Arterial Performing Organization Address [facility] Phone Number [address] [address] [place] Glucose-Stat Lab (11/22/2019 10:45 AM CDT) Glucose 121 (H) 70 - 110 mg/dL [facility] Specimen Blood, Arterial Performing Organization Address [facility] Phone Number [address] [address] [place] HGB/HCT (H&H)-Stat Lab (11/22/2019 10:45 AM CDT) Hemoglobin 11.0 (L) 12.0 - 15.0 g/dL [facility] Hematocrit 32.0 (L) 36.0 - 45.0 % [facility] Specimen Blood, Arterial Performing Organization Address City/[facility] Centercode Phone Number [address] [address] [place] Calcium, Ionized (11/22/2019 10:45 AM CDT) Calcium, Ion 1.14 1.12 - 1.27 mmol/L [facility] pH, Blood 7.41 [facility] Specimen Blood Performing Organization Address [facility] Centercode Phone Number [address] [address] [place] Blood gas, arterial (11/22/2019 10:45 AM CDT) pH, Arterial 7.41 7.35 - 7.45 [facility] pCO2, Arterial 43 35 - 45 mmHg [facility] pO2, Arterial 97 (H) 80 - 90 mmHg [facility] O2 Sat, Arterial 97.5 (H) 96.0 - 97.0 % [facility] HCO3, Arterial 27 21 - 29 mmol/L [facility] Base Excess, Arterial 1.9 -2.0 - 3.0 mmol/L [facility] Patient Temperature 36.8 C [facility] FIO2 36.0 % [facility] Specimen Blood, Arterial Performing Organization Address City/[facility] Centercode Phone Number [address] [address] [place] Prepare RBC (11/21/2019 5:44 PM CDT)Only the most recent of2 resultswithin the time period is included. CROSSMATCH COMPATIBLE SAFETRACE TX Unit ABO O Pos SAFETRACE TX UNIT NUMBER [id number] SAFETRACE TX Status READY SAFETRACE TX Blood Bank Product RED BLOOD CELLS SAFETRACE TX PRODUCT CODE [id number] SAFETRACE TX CROSSMATCH COMPATIBLE SAFETRACE TX Unit ABO O Pos SAFETRACE TX UNIT NUMBER [id number] SAFETRACE TX Status READY SAFETRACE TX Blood Bank Product RED BLOOD CELLS SAFETRACE TX PRODUCT CODE [id number] SAFETRACE TX Performing Organization Address City/[facility]/Zipcode Phone Number SAFETRACE TX CARDIAC CATH REPORT - SCAN (11/17/2019 5:20 PM CDT) Narrative Performed At This result has an attachment that is no t available. B-type Natriuretic Factor (BNP) (11/16/2019 10:32 AM CDT)Only the most recent of 2 resultswithin the time period is included. BNP 157 (H) 0 - 100 pg/mL [facility] Specimen Blood Narrative Performed At Sales Engineer ID - AAHAMID [facility] Performing Organization Address City/[facility] Centercoct Phone Number [address] [address] CENTER Comprehensive metabolic panel (11/16/2019 10:32 AM CDT)Only the most recent of4 resultswithin the time period is included. Protein, Total 6.5 6.0 - 8.3 gm/dL [facility] Albumin 3.7 3.5 - 5.0 g/dL [facility] Alkaline Phosphatase 113 40 - 150 U/L [facility] Total Bilirubin 0.4 0.2 - 1.2 mg/dL [facility] Sodium 137 136 - 145 meq/L [facility] Potassium 4.0 3.5 - 5.1 meq/L [facility] Chloride 103 98 - 107 meq/L [facility] CO2 27 22 - 29 meq/L [facility] BUN 7 7 - 21 mg/dL [facility] Creatinine 0.66 0.57 - 1.25 mg/dL [facility] ER Glucose 118 (H) 70 - 105 mg/dL [facility] ER Calcium 8.7 8.4 - 10.2 mg/dL [facility] ER AST 28 5 - 34 U/L [facility]ICAL [facility] ER ALT 26 6 - 55 U/L [facility] ER EGFR 91Comment: ESTIMATED GFR mL/min/1.[address] [facility] IS NOT ACCURATE [facility] CREATININE CLEARANCE IN PREDICTING GLOMERULAR FILTRATION RATE. ESTIMATED GFR IS NOT APPLICABLE FOR DIALYSIS PATIENTS. Specimen Blood Narrative Performed At Sales Engineer ID - AAHAMID [facility] Performing Organization Address City/State/Zipcode Phone Number [place] [phone] [place] [address] CENTER EKG-SCANNED (11/06/2019 11:52 AM CDT) Narrative [...] bone scan whole body (11/03/2019 3:57 PM GLOBAL REGULATORY AFFAIRS MANAGER) Specimen Narrative Performed At FINAL REPORT [employer] PROCEDURE: BONE SCAN, WHOLE BODY CPT CODE:91687 INDICATION:Lung cancer PROTOCOL:21.5 mCi of Tc-99m MDP [...] CT. Signed: Blane Boone MD Report Verified Date/Time:11/03/2019 16:33:30 Reading Location: [address] [employer] [facility] Reading Room Procedure Note Interface, External Ris In - 11/03/2019 4:35 PM GLOBAL REGULATORY AFFAIRS MANAGER FINAL REPORT PROCEDURE: BONE SCAN, WHOLE BODY CPT CODE: 23150 INDICATION: Lung cancer PROTOCOL: 21.5 mCi of [...] Verified Date/Time: 11/03/2019 1 6:33:30 Reading Location: [address] [employer] [facility] Reading Room Performing Organization Address City/State/Zipcode Phone Number [employer] CTA chest (11/02/2019 7:17 PM GLOBAL REGULATORY AFFAIRS MANAGER) Specimen Narrative Performed At Addendum Begins [employer] REPORT STATUS:A I have reviewed the study [...] MD Report Verified Date/Time:11/03/2019 16:18:17 Reading Location: [place] [id number] Angio Body Reading Room Addendum Ends FINAL [...] the contrast sheet scann ed in the [employer] system for the amount and route of [...] performed a few days ago by the Teachers Aide Radiologist. Refer to formal dictation for details, [...] regar ding the non-vascular findings by the Teachers Aide Radiologist. Signed: Ricardo Broussard MD Report Verified Date/Time:11/03/2019 07:39:57 Procedure Note Interface, External Ris In - 11/03/2019 4:20 PM GLOBAL REGULATORY AFFAIRS MANAGER Addendum Begins REPORT STATUS:A I have reviewed [...] Verified Date/Time: 11/03/2019 1 6:18:17 Reading Location: [place] [address] Angio Body Reading Room Addendum Ends FINAL [...] the contrast sheet scann ed in the [employer] system for the amount and route of [...] performed a few days ago by the Teachers Aide Radiologist. Refer to formal dictation for details, [...] regardi ng the non-vascular findings by the Teachers Aide Radiologist. Signed: Ricardo Broussard MD Report Verified Date/Time: 11/03/2019 0 7:39:57 Performing Organization Address City/State/Zipcode Phone Number [employer] CTA abdomen & pelvis (11/02/2019 7:17 PM GLOBAL REGULATORY AFFAIRS MANAGER) Specimen Narrative Performed At Addendum Begins GE [...] MD Report Verified Date/Time:11/03/2019 16:18:17 Reading Location: [place] [id number] Angio Body Reading Room Addendum Ends FINAL [...] the contrast sheet scann ed in the [employer] system for the amount and route of [...] performed a few days ago by the Teachers Aide Radiologist. Refer to formal dictation for details, [...] regar ding the non-vascular findings by the Teachers Aide Radiologist. Signed: Ricardo Broussard MD Report Verified Date/Time:11/03/2019 07:39:57 Procedure Note Interface, External Ris In - 11/03/2019 4:20 PM GLOBAL REGULATORY AFFAIRS MANAGER Addendum Begins REPORT STATUS:A I have reviewed [...] Verified Date/Time: 11/03/2019 1 6:18:17 Reading Location: [place] [address] Angio Body Reading Room Addendum Ends FINAL [...] performed a few days ago by the Teachers Aide Radiologist. Refer to formal dictation for details, [...] regardi ng the non-vascular findings by the Teachers Aide Radiologist. Signed: Ricardo Broussard MD Report Verified Date/Time: 11/03/2019 0 7:39:57 Performing Organization Address City/State/Zipcode Phone Number [employer] PULMONARY FUNCTION - SCAN (11/02/2019 3:02 PM GLOBAL REGULATORY AFFAIRS MANAGER) Narrative Performed At This result has an attachment that is no t available. Carotid doppler bilateral (11/02/2019 9:27 AM GLOBAL REGULATORY AFFAIRS MANAGER) Ejection Fraction [facility] Specimen Impressions Performed At Right Impression [facility] 1. There [...] Performed At LAB - Carotid Duplex Study [facility] Demographics Patient Name QUIANA VALLADARES of Study11/02/2019 [id number] Visit Number [id number] Gender Female Accession Number [id number] Date of Birth1955 ReferringMinna TaraNehemias [id number] Eleanor SonographerAmy De La Paz Interpreting Christa [...] External Ris In - 11/02/2019 6:12 PM GLOBAL REGULATORY AFFAIRS MANAGER PV LAB - Carotid Duplex Study Demographics Patient Name QUIANA VALLADARES ate of Study 11/02/2019 A ge 64 Visit Number [id number] G lionel Female Accession Number [id number] D ate of 1955 Referring Minna lara Number [id number] Physician Sesay Mainspring Winder Amy De La Paz I nterpreting Christa [...] City/State/Zipcode Phone Number [facility] ECHOCARDIOGRAM REPORT - SCAN (11/01/2019 9:20 PM GLOBAL REGULATORY AFFAIRS MANAGER) Narrative Performed At This result has an attachment that is no t available. Pulmonary Funct Lab Spirometry (11/01/2019 5:02 PM GLOBAL REGULATORY AFFAIRS MANAGER) Narrative Performed At Leny Almonte THERON, SHEET COMBINING OPERATOR 0205:45 PM [facility] PFT CHARTING REPORT Infection Control/Hand Hygiene procedure s followed throughout the encounter with patient: Yes Patient Identification Method: Patient n simin verified on armband, and Medical record on armband, Is the order complete?: Yes Account ID#: [id number] Patient Name: Quiana Valladares Birthdate: 1955 Age: 64 y.o.Sex: female Admission [...] outcome. 2D Echo W/Doppler(CW/PW/Color) (11/01/2019 1:22 PM GLOBAL REGULATORY AFFAIRS MANAGER) Ejection Fraction [facility] Specimen Narrative Performed At Transthoracic Echocardiography Report (T TE) [facility] Demographics Patient Name QUIANA VALLADARES Date of Study 11/01/2019 KARINA [id number] GenderFem edwin Visit Number [id number] RaceCauc [id number] m Number [id number] Number Date of Birth1955 Referring Physician Helio Buitrago MD Age64 year(s) Mainspring Winder Delmar Odonnell ms CS Mani Poole Deborasandra [...] LVEDV Gutierrez's:112.22 mlLV Length: 7.74 cm LVESV Gutierrez's:55.95 ml LVEF [...] External Ris In - 11/01/2019 4:22 PM GLOBAL REGULATORY AFFAIRS MANAGER Transthoracic Echocardiography Report (TTE) Demographics Patient Name QUIANA VALLADARES Date of Study 11/01/2019 KARINA Gender Female Visit Number [id number] Race [facility] [id number] Number Date of 1955 Referri Physician Helio Buitrago MD Age 64 year(s) Sonogra pher Delmar Gotti [facility] Mft Asaf Rankin Interpr etiKeara Shaver MD Procedure [...] TR Gradient: 22.84 mmHg Performing Organization Address City/[facility] Cent[facility]ode Phone Number [facility] ABORH, manual (11/01/2019 5:53 AM GLOBAL REGULATORY AFFAIRS MANAGER) ABO Grouping O [facility] Rh Factor POS [facility] Specimen Blood Performing Organization Address City/[facility] Phone Number [facility] [address] [place] [address] CT chest for pulmonary embolus (10/30/2019 5:29 PM GLOBAL REGULATORY AFFAIRS MANAGER) Specimen Narrative Performed At FINAL REPORT Subtext [facility] TECHNIQUE: CT of the chest WITH intraven ous contrast (pulmonary embolism protocol). Dose modulation, ite rative reconstruction, and/or weight-based adjustment of the mA/kV was utilized to reduce the radiation dose to as low as reasonably a chievable. INDICATION: 64-year-old woman with chest pain, shortness of breath, and history of cancer. COMPARISON: Chest radiograph from [facility] same date. FINDINGS: LINES/TUBES: The tip of [...] MD Report Verified Date/Time:10/30/2019 18:23:35 Reading Location: [address] Body R ding Room Procedure Note Interface, External Ris In - 10/30/2019 6:25 PM GLOBAL REGULATORY AFFAIRS MANAGER FINAL REPORT TECHNIQUE: CT of the chest WITH intraven ous contrast (pulmonary embolism protocol). Dose modulation, ite rative reconstruction, and/or weight-based adjustment of the mA/kV was utilized to reduce the radiation dose to as low as reasonably a chievable. INDICATION: 64-year-old woman with chest pain, shortness of breath, and history of cancer. COMPARISON: Chest radiograph from [facility] same date. FINDINGS: LINES/TUBES: The tip of [...] Verified Date/Time: 10/30/2019 1 8:23:35 Reading Location: [facility] [id number] CT Body R eading Room Performing Organization Address City/State/Zipcode Phone Number Subtext RIS Troponin I (10/30/2019 4:04 PM GLOBAL REGULATORY AFFAIRS MANAGER) Troponin I <0.01 0.00 - 0.03 ng/mL [facility] Specimen Blood Narrative Performed At Troponin I (TnI) levels must be interpreted [facility] in the context of the presenting [...] acidosis, acute neurological disease, and persistent tachyarrhythmia. Sales Engineer ID - BS Performing Organization Address City/State/Zipcode Phone Number [address] [address] CENTER after 04/01/2019 Insurance Payer Benefit Plan / Group Subscriber ID Type Phone A ddress MEDICARE MEDICARE A B xxxxxxxxxxx Medicare CDC REVIEW CDC REVIEW xxxxxxxx [address] [place], [place] [phone] Advance Directives For more information, please contact:[id number] [place], [place] [phone] Code Status Date Activated Date Inactivated Comments [...]
--- OUTSIDE RECORDS SUMMARY | 2020-04-01 19:34 | XMS REPORT | Continuity of Care Document ---
:1955 Author Organization [facility] t Address [address] [place] [address] [address] [place] [address] Care Team Providers Name Role Phone Pcp [...] xxxxxxxx [facility] RE[facility]PO ANGELIQUE Solorzano [facility] [id number] Olar Problems Condition Condition Condition Status Onset Resolution Last Treating Co mments Source Name Details Category Date Date Treatment Clinician Date PFO PFO Disease Active [facility] (patent (patent 5-14 [facility] - foramen foramen 00:00: Medical ovale) ovale) 00 Center Thalamic Thalamic Disease Active 2019- [facility]02 [facility] - [facility] Medical 00 [facility] HTN HTN Disease Active [facility] (hypertens (hypertens 3-25 Kristi kes - ion) ion) 00:00: Medical chronic chronic 00 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, mellitus, 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 00:00: Medical (HCC) (HCC) 00 Center (home (home Metformin) Metformin) Genital Genital Disease Active [facility] herpes herpes 3-22 [facility] - 00:00: Medical 00 [place] Aortic Aortic Disease Active [facility] valve [...] Medica l lobe of lobe of 00 O[facility] right lung right lung COPD COPD Disease Active [facility] exacerbati exacerbati 3-03 Kristi kes - on on 00:00: Medical 00 Olar Colorectal Colorectal Disease Active C [facility] [...] of breath) of breath) 00:00: Me dical [address] [place] [address] Allergies, Adverse Reactions, Alerts Allergy Allergy Status [...] Date Quantity Comments Source Sex Assigned At [facility] Cigarettes smoked 2020-01-15 2020-01-15 [facility] - current (pack per 00:00:00 00:00:00 [facility] Center day) - Reported Cigarette pack-years 2020-01-15 2020-01-15 [facility] - 00:00:00 00:00:00 [facility] Alcohol Comment 2019-11-16 2019-11-[address] [facility] - 00:00:00 00:00:00 [facility] Smoking Status Start Date Stop Date Source Current every day smoker 2020-01-15 00:00:00 [facility] Medications Ordered Filled Start Stop Current Ordering [...] [address] [facility] HFA 11-03 puff by [facility] Source - (VENTOLIN 00:00: 00:00 mouth via Me [...] [address] [facility] (GLUCOPHAGE 8-18 mg by LuVision Source - ) 500 MG 00:00: mouth 2 Medica l tablet 00 (two) Center times daily with breakfast and dinner . Vital Signs Vital Name Observation Time Observation Value Comments Source Systolic blood 2020-01-12 13:00:00 129 mm[Hg] [facility] Diastolic blood 2020-01-12 13:00:00 85 mm[Hg] [facility] S t [facility] Heart rate 2020-01-12 13:00:00 65 /min [facility] Respiratory rate 2020-01-12 13:00:00 17 /min [facility] Oxygen saturation in 2020-01-12 13:00:00 99 /min [facility] Arterial blood by Medical Ce nter Pulse oximetry Body temperature 2020-01-12 12:00:00 36.78 Gracia [facility] Body weight Measured 2020-01-12 05:00:00 56 kg [facility] BMI 2020-01-12 05:00:00 19.93 kg/m2 [facility] Body height 2020-01-11 06:16:00 167.6 cm [facility] Procedures Procedure Date / Time Performing Clinician Source Performed RHYTHM STRIP - SCAN 2020-01-15 13:50:19 Provider, [facility] CARDIAC CATH REPORT - SCAN 2020-01-15 13:50:17 Provider, [facility] 2D ECHO W/ DOPPLER 2020-01-12 09:23:[address] [facility] (CW/PW/COLOR) [facility] BASIC METABOLIC PANEL (7) 2020-01-12 04:56:00 [facility] CBC (HEMOGRAM ONLY) 2020-01-12 04:55:00 [facility] XR CHEST 1 VIEW 2020-01-12 03:27:00 [facility] PORTABLE/BEDSIDE Medical Center POCT-ACT 2020-01-11 10:51:00 Helio Buitrago [facility] COLOR-FLOW MAPPING 2020-01-11 10:00:[address] [facility] CONT WAVE PULSED DOPPLER 2020-01-11 10:00:[address] [facility] TRANSCATHETER CLOSURE OF 2020-01-11 09:41:00 Helio Buitrago [facility] ASD [facility] TRANSESOPHAGEAL ECHO 2020-01-11 09:12:59 Helio Buitrago [facility] ECG 12-LEAD 2020-01-11 07:34:20 Unknown, Hl7 Doctor [facility] TRANSFUSION SERVICE REPORT 2020-01-09 17:53:54 Provider, [facility] SARS-COV2/RT-PCR ([facility] & 2020-01-08 10:31:00 Helio Buitrago [facility] - REF LABS) [facility] BASIC METABOLIC PANEL (7) 2020-01-08 09:29:00 Helio Buitrago [facility] CBC (HEMOGRAM ONLY) 2020-01-08 09:29:00 Buitrago [facility] PROTHROMBIN TIME/INR 2020-01-08 09:29:00 [facility] TYPE AND SCREEN, AUTOMATED 2020-01-08 09:29:00 Minna [facility] RHYTHM STRIP - SCAN 2019-12-27 12:20:32 Provider, [facility] RHYTHM STRIP - SCAN 2019-12-08 12:40:21 Provider, [facility] POCT-GLUCOSE METER 2019-12-07 08:02:00 Tito [facility] CBC (HEMOGRAM ONLY) 2019-12-07 03:47:00 Briseida Vo [facility] PROTHROMBIN TIME/INR 2019-12-07 03:47:00 Bjorn Klein [facility] APTT 2019-12-07 03:47:00 Tito [facility] POCT-GLUCOSE METER 2019-12-06 21:10:00 Tito [facility] APTT 2019-12-06 20:30:00 Tito [facility] POCT-GLUCOSE METER 2019-12-06 17:07:00 Tito [facility] APTT 2019-12-06 13:08:00 Briseida Vo [facility] POCT-GLUCOSE METER 2019-12-06 11:33:00 Tania Francis [facility] POCT-GLUCOSE METER 2019-12-06 08:10:00 Tito Bolivar Deidra [facility] BASIC METABOLIC PANEL (7) 2019-12-06 05:47:00 Minna Helio [facility] CBC (HEMOGRAM ONLY) 2019-12-06 05:47:00 Briseida Vo [facility] PROTHROMBIN TIME/INR 2019-12-06 05:47:00 Bjorn Klein [facility] APTT 2019-12-06 05:47:00 Tito, [facility] APTT 2019-12-05 23:09:00 Tito, [facility] POCT-GLUCOSE METER 2019-12-05 [facility]:20[facility] - 2019-12-05 21:11:06 Compa Egan [facility] APTT 2019-12-05 20:56:00 Tito [facility] POCT-GLUCOSE METER 2019-12-05 16:22:00 Tito [facility] POCT-GLUCOSE METER 2019-12-05 13:13:00 Tito [facility] APTT 2019-12-05 12:35:00 Briseida Vo [facility] TRANSESOPHAGEAL ECHO 2019-12-05 09:26:16 Elizabeth Buitragoherme [facility] POCT-GLUCOSE METER 2019-12-05 07:31:00 Tito [facility] CBC (HEMOGRAM ONLY) 2019-12-05 04:33:00 Briseida Vo [facility] PROTHROMBIN TIME/INR 2019-12-05 04:33:00 Bjorn Klein [facility] APTT 2019-12-05 04:33:00 Briseida Vo [facility] POCT-GLUCOSE METER 2019-12-04 21:01:00 Tito [facility] POCT-GLUCOSE METER 2019-12-04 16:46:00 Tito [facility] COLOR-FLOW MAPPING 2019-12-04 14:54:50 Minna [facility] CONT WAVE PULSED DOPPLER 2019-12-04 14:54:[address] [facility] APTT 2019-12-04 14:34:00 Briseida Vo [facility] POCT-GLUCOSE METER 2019-12-04 11:33:00 Tania Francis [facility] BASIC METABOLIC PANEL (7) 2019-12-04 07:46:00 Tania Francis [facility] POCT-GLUCOSE METER 2019-12-04 07:36:00 Tania Francis [facility] PT/APTT 2019-12-04 06:13:00 [facility] ([facility] 2019-12-04 06:13:00 Briseida Vo [facility] PROTHROMBIN TIME/INR 2019-12-04 06:13:00 Bjorn Klein [facility] PT/APTT 2019-12-03 23:33:00 Nicolasa [facility] POCT-GLUCOSE METER 2019-12-03 21:02:00 Nicolasa [facility] POCT-GLUCOSE METER 2019-12-03 16:55:00 Nicolasa, [facility] PT/APTT 2019-12-03 16:02:00 Nicolasa [facility] POCT-GLUCOSE METER 2019-12-03 11:26:00 Nicolasa [facility] POCT-GLUCOSE METER 2019-12-03 07:40:00 Nicolasa [facility] PT/APTT 2019-12-03 05:39:00 Nicolasa [facility] CBC (HEMOGRAM ONLY) 2019-12-03 05:39:00 Briseida Vo [facility] PROTHROMBIN TIME/INR 2019-12-03 05:39:00 Bjorn Klein [facility] POCT-GLUCOSE METER 2019-12-02 20:37:00 Nicolasa [facility] POCT-GLUCOSE METER 2019-12-02 16:23:00 Nicolasa [facility] POCT-GLUCOSE METER 2019-12-02 12:04:00 Nicolasa [facility] POCT-GLUCOSE METER 2019-12-02 09:15:00 Nicolasa [facility] POCT-GLUCOSE METER 2019-12-02 07:40:00 Nicolasa [facility] CBC (HEMOGRAM ONLY) 2019-12-02 05:16:00 Briseida Vo [facility] D-DIMER 2019-12-02 05:15:00 Manfred Parra [facility] PROTHROMBIN TIME/INR 2019-12-02 05:15:00 Bjorn Klein [facility] PT/APTT 2019-12-02 05:15:00 Nicolasa [facility] APTT 2019-12-01 23:35:00 Briseida Vo [facility] PERIPHERAL VASCULAR REPORT 2019-12-01 21:20:08 Compa Egan [facility] POCT-GLUCOSE METER 2019-12-01 20:32:00 Nicolasa [facility] APTT 2019-12-01 17:24:00 Briseida Vo [facility] POCT-GLUCOSE METER 2019-12-01 17:06:00 Nicolasa [facility] POCT-GLUCOSE METER 2019-12-01 12:39:00 [facility] 2019-12-01 10:03:00 Briseida Vo [facility] APTT 2019-12-01 10:03:00 Nicolasa [facility] VENOUS DOPPLER LEGS 2019-12-01 09:59:00 Manfred Parra I [facility] POCT-GLUCOSE METER 2019-12-01 07:46:00 Nicolasa [facility] APTT 2019-12-01 00:25:00 Nicolasa [facility] PT/APTT 2019-11-30 23:21:00 Nicolasa [facility] ECHOCARDIOGRAM REPORT - 2019-11-30 21:10:41 Jignesh, Compa SANTORO I [facility] POCT-GLUCOSE METER 2019-11-30 21:03:00 Nicolasa [facility] POCT-GLUCOSE METER 2019-11-30 17:47:00 Nicolasa [facility] 2D ECHO W/ DOPPLER 2019-11-30 16:13:17 Briseida Vo [facility] (CW/PW/COLOR) [facility] APTT 2019-11-30 15:29:00 Briseida Vo [facility] POCT-GLUCOSE METER 2019-11-30 12:30:00 Nicolasa [facility] POCT-GLUCOSE METER 2019-11-30 08:00:00 Franco Cartagena [facility] APTT 2019-11-30 03:40:00 Franco Cartagena [facility] CBC (HEMOGRAM ONLY) 2019-11-30 03:40:00 Briseida Vo [facility] MRA HEAD WITHOUT IV 2019-11-29 23:06:00 Briseida Vo [facility] MRA NECK WITHOUT IV 2019-11-29 23:06:00 Briseida Vo [facility] MR BRAIN WITHOUT IV 2019-11-29 23:06:00 Briseida Vo [facility] PLATELET COUNT 2019-11-29 21:09:00 Briseida Vo [facility] LIPID PANEL 2019-11-29 21:09:00 Briseida Vo [facility] HEMOGLOBIN A1C 2019-11-29 21:09:00 Brsieida Vo [facility] APTT 2019-11-29 21:08:00 Briseida Vo [facility] TSH/FREE T4 IF INDICATED 2019-11-29 21:08:00 Briseida Vo [facility] VITAMIN B12 AND FOLATE 2019-11-29 21:08:00 [facility] POCT-GLUCOSE METER 2019-11-29 19:40:00 Franco Cartagena [facility] RHYTHM STRIP - SCAN 2019-11-29 11:52:24 Provider, [facility] RHYTHM STRIP - SCAN 2019-11-27 13:31:11 Provider, [facility] VASCULAR DIAGRAM -SCAN 2019-11-27 13:31:02 Provider, [facility] POCT-GLUCOSE METER 2019-11-26 12:01:00 Shantelle [facility] POCT-GLUCOSE METER 2019-11-26 08:28:00 [facility] BASIC METABOLIC PANEL (7) 2019-11-26 04:39:00 Amos Tavares [facility] MAGNESIUM 2019-11-26 04:39:00 Amos Tavares [facility] PHOSPHORUS 2019-11-26 04:39:00 Amos Tavares [facility] PROTHROMBIN TIME/INR 2019-11-26 04:39:00 [facility] [facility] APTT 2019-11-26 04:39:00 [facility] CBC (HEMOGRAM ONLY) 2019-11-26 04:39:00 Stephany-Do Lewis [facility] POCT-GLUCOSE METER 2019-11-25 21:27:00 [facility] POCT-GLUCOSE METER 2019-11-25 18:16:00 [facility] POCT-GLUCOSE METER 2019-11-25 11:50:00 [facility] POCT-GLUCOSE METER 2019-11-25 07:59:00 [facility] BASIC METABOLIC PANEL (7) 2019-11-25 04:16:00 Amos Tavares [facility] MAGNESIUM 2019-11-25 04:16:00 Amos Tavares [facility] PHOSPHORUS 2019-11-25 04:16:00 [facility]/INR 2019-11-25 04:16:00 [facility] APTT 2019-11-25 04:16:00 [facility] CBC (HEMOGRAM ONLY) 2019-11-25 04:16:00 [facility] POCT-GLUCOSE METER 2019-11-24 21:15:00 [facility] POCT-GLUCOSE METER 2019-11-24 12:15:[address] [facility] [address] BRAIN WITHOUT IV 2019-11-24 10:45:00 [facility] POCT-GLUCOSE METER 2019-11-24 07:58:00 [facility] BASIC METABOLIC PANEL (7) 2019-11-24 04:39:00 Amos Tavares [facility] MAGNESIUM 2019-11-24 04:39:00 Amos Tavares [facility] PHOSPHORUS 2019-11-24 04:39:00 Amos Tavares [facility] PROTHROMBIN TIME/INR 2019-11-24 04:39:00 Hudefi [facility] APTT 2019-11-24 04:39:00 [facility] CBC (HEMOGRAM ONLY) 2019-11-24 04:39:00 Stephany-Debbie Do [facility] POCT-GLUCOSE METER 2019-11-23 21:27:00 [facility] ECHOCARDIOGRAM REPORT - 2019-11-23 21:11:05 Provider, Default Blake [facility] POCT-GLUCOSE METER 2019-11-23 17:19:00 [facility] POCT-GLUCOSE METER 2019-11-23 13:32:00 [facility] ECG 12-LEAD 2019-11-23 11:50:37 Unknown, Hl7 Doctor [facility] 2D ECHO W/ DOPPLER 2019-11-23 08:55:00 [facility] (CW/PW/COLOR) [facility] BASIC METABOLIC PANEL (7) 2019-11-23 03:23:00 Amos Tavares [facility] MAGNESIUM 2019-11-23 03:23:00 Amos Tavares [facility] PHOSPHORUS 2019-11-23 03:23:00 Amos Tavares [facility] PROTHROMBIN TIME/INR 2019-11-23 03:23:00 [facility] APTT 2019-11-23 03:23:00 [facility] CBC W/PLT COUNT & AUTO 2019-11-23 03:23:00 [facility] TRANSFUSION SERVICE REPORT 2019-11-22 17:50:20 Provider, Default [facility] XR CHEST 1 VIEW 2019-11-22 11:09:[address] [facility] PORTABLE/BEDSIDE Medical Center BASIC METABOLIC PANEL (7) 2019-11-22 10:45:00 Wally Bruno [facility] MAGNESIUM 2019-11-22 10:45:00 Kiana, Wally Zurita [facility] PHOSPHORUS 2019-11-22 10:45:00 Kiana, Wally Zurita [facility] CALCIUM, IONIZED 2019-11-22 10:45:00 Kiana, Wally Zurita [facility] PROTHROMBIN TIME/INR 2019-11-22 10:45:00 Kiana, Wally Zurita [facility] APTT 2019-11-22 10:45:00 Kiana, Wally Zurita [facility] BLOOD GAS, ARTERIAL 2019-11-22 10:45:00 Kiana, Wally Zurita [facility] SODIUM NA-STAT LAB 2019-11-22 10:45:00 Kiana, Wally Zurita [facility] POTASSIUM-STAT LAB 2019-11-22 10:45:00 Kiana, Wally Zurita [facility] GLUCOSE-STAT LAB 2019-11-22 10:45:00 Kiana, Wally Zurita [facility] HGB/HCT (H&H) - STAT LAB 2019-11-22 10:45:00 Kiana, Wally Zurita [facility] CBC W/PLT COUNT & AUTO 2019-11-22 10:45:00 Kiana, Wally [facility] POCT-ACT 2019-11-22 09:46:00 [facility] POCT-ACT 2019-11-22 09:26:00 Shantelle [facility] REPLACEMENT,TRANSCATHETER 2019-11-22 08:00:[address] [facility] AORTIC VALVE [facility] (TAVR/ANN MARIE) POCT-GLUCOSE METER 2019-11-22 05:02:00 Shantelle [facility] BASIC METABOLIC PANEL (7) 2019-11-22 04:54:00 Amos Tavares [facility] MAGNESIUM 2019-11-22 04:54:00 Amos Tavares [facility] PHOSPHORUS 2019-11-22 04:54:00 Amos Tavares [facility] PROTHROMBIN TIME/INR 2019-11-22 04:54:00 Cirilo [facility] APTT 2019-11-22 04:54:00 [facility] CBC W/PLT COUNT & AUTO 2019-11-22 04:54:[address] [facility] POCT-GLUCOSE METER 2019-11-21 21:07:00 [facility] POCT-GLUCOSE METER 2019-11-21 18:26:00 [facility] PREPARE RBC 2019-11-21 17:44:[facility] PO[facility]SE METER 2019-11-21 11:55:00 [facility] POCT-GLUCOSE METER 2019-11-21 07:49:00 [facility] BASIC METABOLIC PANEL (7) 2019-11-21 05:08:00 Amos Tavares [facility] MAGNESIUM 2019-11-21 05:08:00 Amos Tavares [facility] PHOSPHORUS 2019-11-21 05:08:00 Amos Tavares [facility] POCT-GLUCOSE METER 2019-11-20 21:06:00 Shantelle [facility] POCT-GLUCOSE METER 2019-11-20 17:09:00 [facility]SE [facility]ER 2019-11-20 12:00:00 [facility] POCT-GLUCOSE METER 2019-11-20 07:51:00 [facility] BASIC METABOLIC PANEL (7) 2019-11-20 05:04:00 Amos Tavares [facility] MAGNESIUM 2019-11-20 05:04:00 Amos Tavares [facility] PHOSPHORUS 2019-11-20 05:04:00 Amos Tavares [facility] POCT-GLUCOSE METER 2019-11-19 21:15:00 Shantelle [facility] POCT-GLUCOSE METER 2019-11-19 17:39:00 Shantelle [facility] POCT-GLUCOSE METER 2019-11-19 12:18:00 Cosvaldemar [facility] POCT-GLUCOSE METER 2019-11-19 07:30:00 Shantelle [facility] BASIC METABOLIC PANEL (7) 2019-11-19 05:19:00 Amos Tavares [facility] MAGNESIUM 2019-11-19 05:19:00 Amos Tavares [facility] PHOSPHORUS 2019-11-19 05:19:00 Amos Tavares [facility] POCT-GLUCOSE METER 2019-11-18 21:22:00 Shantelle [facility] TRANSFUSION SERVICE REPORT 2019-11-18 17:50:44 Jignesh [facility] POCT-GLUCOSE METER 2019-11-18 17:06:00 [facility] POCT-GLUCOSE METER 2019-11-18 12:10:00 [facility] POCT-GLUCOSE METER 2019-11-18 07:41:00 Shantelle [facility] BASIC METABOLIC PANEL (7) 2019-11-18 05:11:00 Amos Tavares [facility] MAGNESIUM 2019-11-18 05:11:00 Amos Tavares [facility] PHOSPHORUS 2019-11-18 05:11:00 Amos Tavares [facility] PT/APTT 2019-11-18 05:11:00 Amos Tavares [facility] PROTHROMBIN TIME/INR 2019-11-18 05:11:00 BlairAmos pierce [facility] CBC (HEMOGRAM ONLY) 2019-11-18 05:11:00 BlairkariAmos Polo [facility] POCT-GLUCOSE METER 2019-11-17 21:06:00 [facility]SF[facility]ION SERVICE REPORT 2019-11-17 17:51:57 Provider, [facility] - - SCAN [facility] CARDIAC CATH REPORT - SCAN 2019-11-17 17:20:03 Provider, [facility] POCT-GLUCOSE METER 2019-11-17 11:26:00 Shantelle [facility] PREPARE RBC 2019-11-17 03:53:00 [facility]-TYPE NATRIURETIC FACTOR 2019-11-16 10:32:00 Raven [facility] (BNP) [facility] PROTHROMBIN TIME/INR 2019-11-16 10:32:00 Raven [facility] COMPREHENSIVE METABOLIC 2019-11-16 10:32:00 Raven [facility] TYPE AND SCREEN, AUTOMATED 2019-11-16 10:32:00 Raven [facility] CBC W/PLT COUNT & AUTO 2019-11-16 10:32:00 Raven [facility] VASCULAR DIAGRAM -SCAN 2019-11-15 16:10:52 Provider, [facility] RHYTHM STRIP - SCAN 2019-11-06 11:52:53 Provider, [facility] REPORT OF PROCEDURE - 2019-11-06 11:52:51 Provider, [facility] ENDOSCOPY SCAN [facility] VASCULAR DIAGRAM -SCAN 2019-11-06 11:52:47 Provider, [facility] CARDIAC CATH REPORT - SCAN 2019-11-06 11:52:39 Provider, [facility] CARDIAC CATH REPORT - SCAN 2019-11-06 11:52:37 Provider, [facility] POCT-GLUCOSE METER 2019-11-04 07:40:00 Adio, Jude Ansari [facility] POCT-GLUCOSE METER 2019-11-03 22:17:00 Adio, Jude Ansari [facility] POCT-GLUCOSE METER 2019-11-03 18:18:00 Adio, Jude Ansari [facility] NM BONE SCAN WHOLE BODY 2019-11-03 15:57:00 Adio, Jude Ansari [facility] POCT-GLUCOSE METER 2019-11-03 11:20:00 Adio, Jude Ansari [facility] POCT-GLUCOSE METER 2019-11-03 07:51:00 Adio, Jude Ansari [facility] COMPREHENSIVE METABOLIC 2019-11-03 03:56:00 Farrah Bhakta [facility] MAGNESIUM 2019-11-03 03:56:00 Farrah Bhakta [facility] PHOSPHORUS 2019-11-03 03:56:00 Farrah Bhakta [facility] CBC W/PLT COUNT & AUTO 2019-11-03 03:56:[address] [facility] POCT-GLUCOSE METER 2019-11-02 21:55:00 Jude Overton [facility] PERIPHERAL VASCULAR REPORT 2019-11-02 21:11:20 Provider, [facility] CTA ABDOMEN & PELVIS 2019-11-02 19:17:00 Minna Helio [facility] CTA CHEST 2019-11-02 19:17:00 Minna [facility] TRANSFUSION SERVICE REPORT 2019-11-02 17:52:21 Provider, [facility] POCT-GLUCOSE METER 2019-11-02 17:30:00 Jude Overton [facility] PULMONARY FUNCTION - SCAN 2019-11-02 15:02:13 Provider, [facility] POCT-GLUCOSE METER 2019-11-02 13:16:00 Jude Overton [facility] POCT-GLUCOSE METER 2019-11-02 13:06:00 Brooklynn, Jude Ansari [facility] POCT-GLUCOSE METER 2019-11-02 10:08:00 Brooklynn, Jude Ansari [facility] CAROTID DOPPLER BILATERAL 2019-11-02 09:27:00 Helio Buitrago [facility] COMPREHENSIVE METABOLIC 2019-11-02 04:38:00 Farrah Bhakta [facility] MAGNESIUM 2019-11-02 04:38:00 Farrah Bhakta [facility] PHOSPHORUS 2019-11-02 04:38:00 Farrah Bhakta [facility] CBC W/PLT COUNT & AUTO 2019-11-02 04:38:[address] [facility] POCT-GLUCOSE METER 2019-11-01 22:18:00 Jude Overton [facility] ECHOCARDIOGRAM REPORT - 2019-11-01 21:20:03 Provider, [facility] I [facility] SPIROMETRY 2019-11-01 17:02:00 Helio Buitrago [facility] 2D ECHO W/ DOPPLER 2019-11-01 13:22:01 [facility] POCT-GLUCOSE METER 2019-11-01 13:20:00 Jude Overton [facility] R & L CATH / CORONARY 2019-11-01 07:35:00 Helio Buitrago [facility] - ANGIOS (+/- LV) [facility] POCT-GLUCOSE METER 2019-11-01 06:25:00 Jude Overton [facility] ABORH, MANUAL 2019-11-01 05:53:00 Sangeetha Gunderson [facility] COMPREHENSIVE METABOLIC 2019-11-01 04:44:00 Farrah Bhakta Kyerewaa [facility] MAGNESIUM 2019-11-01 04:44:00 [facility] PHOS[facility] 2019-11-01 04:44:00 [facility] PROT[facility] TIME/INR 2019-11-01 04:44:00 Minna [facility] TYPE AND SCREEN, AUTOMATED 2019-11-01 04:44:00 Minna [facility] CBC W/PLT COUNT & AUTO 2019-11-01 04:44:[address] [facility] POCT-GLUCOSE METER 2019-11-01 00:02:00 Adguillermo, [facility] POCT-GLUCOSE METER 2019-10-31 22:01:00 Adio, [facility] POCT-GLUCOSE METER 2019-10-31 17:34:00 Adio, [facility] POCT-GLUCOSE METER 2019-10-31 07:52:00 Adio, [facility] POCT-GLUCOSE METER 2019-10-31 06:30:00 [facility] VENOUS DOPPLER LEGS 2019-10-30 18:00:00 Daniel Gonzalez [facility] CT CHEST PE TEST DESIGN 2019-10-30 17:29:00 Daniel Gonzalez [facility] BASIC METABOLIC PANEL (7) 2019-10-30 16:04:00 Bjorn Umana [facility] MAGNESIUM 2019-10-30 16:04:00 Dong [facility] B-TYPE NATRIURETIC FACTOR 2019-10-30 16:04:00 Dong [facility] (BNP) [facility] TROPONIN I 2019-10-30 16:04:00 Dong [facility] PT/APTT 2019-10-30 16:04:00 DongBjorn [facility] CBC W/PLT COUNT & AUTO 2019-10-30 16:04:[address] [facility] XR CHEST 1 VIEW 2019-10-30 15:16:[address] [facility] - PORTABLE/BEDSIDE [facility] ECG 12-LEAD 2019-10-30 13:25:58 Unknown, Hl7 Doctor [facility] - [facility] Plan of Care Planned Activity Planned Date Details Comments Source Future Scheduled 2020-05-[address] [facility] - Test 00:00:00 measurement Medical Center (procedure) [code = 88688505] Future Scheduled 2020-04-30 INFLUENZA VACCINE (#1) C [...] es - Test 00:00:00 [facility] cervix (procedure) [code = 473414631] Future Scheduled 1965 DIABETIC EYE EXAM [facility] - Test 00:00:00 [code = DIABETIC EYE Medical Center EXAM] Future Scheduled [address] [facility] - Test 00:00:00 examination Medical Center (regime/therapy) [code = 516161149] Future Scheduled 1967 Urine screening for [facility] - Test 00:00:00 protein (procedure) Medical Center [code = 065068944] Future Scheduled [address] [facility] - Test 00:00:00 2-64 YEARS AT RISK (1 Medica l Center of 1 - PPSV23) [code = PNEUMOCOCCAL VACCINE 2-64 YEARS AT RISK (1 of 1 - PPSV23)] Future Scheduled [address] [facility] - Test 00:00[facility]00 [facility] breast (procedure) [code = 326402509] Future Scheduled [address] [facility] - Test 00:00:00 [facility] colon (procedure) [code = 417263064] Results Test Test Test Results Result Source Description Time Comments Comments 2D Echo 2019-12- Ejection FractionSLEH ECHO [facility] W/Doppler(CW/PW 15 HEART[facility] MKCKESSON L ukes - /Color) 11:03:32 CPACSInterface, External Ris Medical In - 01/12/2020 11:03 AM Center CDTTransthoracic Echocardiography Report (TTE) Demographics Patient Name QUIANA VALLADARES Date of Study 01/12/2020 KARINA Gender Female Visit Number [id number] Race Room Number 6102 Number Date of 1955 Referring Physician Age 64 year(s) 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 ESTIMATED GFR IS NOT APPLICAB LE FOR DIALYSIS PATIEN TS. JANETTE (test code = JANETTE) Power Equipment Mechanics Instructor ID - PIAYA L Lab Interpretation (test Abnormal code = 25698-9) [facility] METABOLIC [id number] 05:44:00 Test Item Value Reference Range Interpretation [...] S NOT APPLICABLE FOR DIALYSIS PATIEN TS. Power Equipment Mechanics Instructor ID - PIAYA LCBC (Hemogram only)2020-01-12 05:09:00 [...] 450 K/CU MM MPV (test code = 01652-1) 9.1 fL 9.4-12.3 L nRBC (test code = 413) 0 0- 0 /100 WBC Lab Interpretation (test code = Abnormal 61316-5) [facility] (HEMOGRAM ONLY)2020-01-12 05:09:00 Test Item Value Reference [...] = 413) RAD, CHEST, 1 VIEW, NON [id number] 04:42:00Reason for exam:->s/p PFO closure, SOBShould this [...] Silvano Bruce MDReport Verified Date/Time: 01/12/2020 04:42:15 [facility] [id number] 20:46:03Ejection [facility] ECHO HEARTLAB MKCKESSON CPACSInterface, External Ris In - 01/11/2020 8:46 PM C DTTransesophageal Echocardiography Report (LINDA) Demographics Patient Name QUIANA VALLADARES Date of Study 01/11/2020 KARINA Gender Female Visit Number [id number] Race Room Number 6102 Number Date of 1955 Referring Physician Helio Buitrago MD Age 64 year(s) Gas 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 Atrial septal position jim nuously bows irbh-bn-etcki, consistent with elevated LA pressure. There was [...] noted. Signature Findings Rhythm/BP Interventional LINDA (cpt 39058) for guidance of percutaneous intracardiac procedure. Left [...] is noted. Atrial septal position continuously bows vzxf-dp-wwxnl, consistent with elevated LA pressure. PFO noted. [...] Doppler. Pericardium No significant pericardial effusion is visualized.[facility]ilion[facility] 12 [id number] 13:40:23Interface, External Ris In - 01/11/2020 1:40 PM CDTVentricular Rate 66 BPMAtrial Rate 66 BPMP-R Interval 160 msQRS Duration 90 msQ-T Interval 426 msQTC Calculation(Bazett) 446 msP [place] 76 degreesR [place] 49 degreesT [place] 51 degreesNormal sinus rhythmLow voltage QRSWithin normal limitsWhen compared withECG of 23-NOV-2019 11:50,Significant changes have occurredConfirmed by MD Orellana Roberto ([id number]) on 01/11/2020 1:40:18 [facility] ACTIVATED CLOTTING [id number] 11:12:00 Test Item Value Reference Range Interpretation Comments Activated Clotting Time 362 sec : 74 -137 seconds, (test code = 441) Baseline: TESTED AT [address], [address]: Power Equipment Mechanics Instructor/Techni logan ID = [id number] for TY BHATT [facility]ilionPOCT-[id number] 11:12:00 Test Item Value Reference Range Interpretation Comments ACTIVATED CLOTTING TIME 362 sec : 74 -137 seconds, (BEAKER) (test code = Baseli ne: TESTED AT [address]) [facility] [address] [facility], [address]: Power Equipment Mechanics Instructor/Techni logan ID = [id number] for TY BHATT SARS-CoV2/RT-PCR (Asymptomatic ONLY)2020-01-09 16:43:00 Test Item Value Reference Range Interpretation Comments SARS-COV2/RT-PCR (test code = Negative Not Detected, Negative 71719-9) SARS-COV-2 PERFORMING LAB CPL (test code = 23204-1) [facility] (HS & REF LABS)2020-01-09 16:43:00 Test Item Value Reference Range Interpretation Comments SARS-COV2/RT-PCR (test code = Negative Not Detected, Negative 3367047) SARS-COV-2 PERFORMING LAB CPL (test code = 1672109) Type and screen, [id number] 10:33:00 Test Item Value Reference Range Interpretation Comments ABO/RH AUTOMATED (BEAKER) (test O POSITIVE code = 2260) Ab Scrn (test code = 890-4) [facility]GATIVE [facility] [id number] 10:02:00 Test Item Value Reference Range Interpretation [...] S NOT APPLICABLE FOR DIALYSIS PATIEN TS. Power Equipment Mechanics Instructor ID - VARSHA MCBC (HEMOGRAM ONLY)2020-01-08 10:00:00 [...] 0-0 (BEAKER) (test code = 413) Prothrombin time/[id number] 09:55:00 Test Item Value Reference Range Interpretation [...] valves. Lab Interpretation Normal (test code = 47021-2) [facility]ilionPROTHROMBIN TIME/[id number] 09:55:00 Test Item Value Reference Range Interpretation [...] is2.5-3.5 for patients wiht mechanical heart valves.POC-Glucose [id number] 08:22:00 Test Item Value Reference Range Interpretation Comments POC-Glucose Meter (test 115 mg/dL 70-110 H : TE STED AT [facility] code = 1538) [address] [facility], [address]: Power Equipment Mechanics Instructor/Techni logan ID = [id number] for VIVIANE KINGSTON Lab Interpretation (test Abnormal code = 98080-8) [facility]ilionPOCT-GLUCOSE [id number] 08:22:00 Test Item Value Reference Range Interpretation Comments POC-GLUCOSE METER 115 mg/dL 70-110 H : TESTED A T [facility] [address] (BEAKER) (test code = LORELEI Jordan [facility], 1538) [address]: Power Equipment Mechanics Instructor/Techni logan ID = [id number] for VIVIANE PEREZ [id number] 04:20:00 Test Item Value Reference Range Interpretation Comments PTT (test code = 82.1 22.5- 36.0 seconds H 24711-9) JANETTE (test code = JANETTE) While on warfarin. Lab Interpretation (test Abnormal code = 60382-2) [facility]ilionAPTT2020-04-09 04:20:00 Test Item Value Reference Range Interpretation Comments PARTIAL THROMBOPLASTIN TIME 82.1 seconds 22.5-36.0 H (BEAKER) (test code = 760) While on warfarin.PROTHROMBIN TIME/[id number] 04:18:00 Test Item Value Reference Range Interpretation [...] 0-0 (BEAKER) (test code = 413) POCT-GLUCOSE [id number] 21:22:00 Test Item Value Reference Range Interpretation Comments POC-GLUCOSE METER 139 mg/dL 70-110 H : TESTED A T [facility] 67[address] (BEAKER) ([facility] = [facility], 1538) [address]: Power Equipment Mechanics Instructor/Techni logan ID = [id number] for DE NNIS, ANNIE [id number] 20:50:00 Test Item Value Reference Range Interpretation Comments PARTIAL THROMBOPLASTIN TIME 69.4 seconds 22.5-36.0 H (BEAKER) (test code = 760) POCT-GLUCOSE [id number] 17:20:00 Test Item Value Reference Range Interpretation Comments POC-GLUCOSE METER 134 mg/dL 70-110 H : TESTED A T [facility] 6720 (BEAKER) (test code [facility], = 1538) [address]: Power Equipment Mechanics Instructor/Techni logan ID = [id number] for DAYNE BAPTISTE [id number] 13:35:00 Test Item Value Reference Range Interpretation Comments PARTIAL THROMBOPLASTIN TIME 73.2 seconds 22.5-36.0 H (BEAKER) (test code = 760) POCT-GLUCOSE [id number] 11:44:00 Test Item Value Reference Range Interpretation Comments POC-GLUCOSE METER 81 mg/dL 70-110 : TESTED A T [facility] 6720 (BEAKER) (test code [facility], = 1538) [address]: Power Equipment Mechanics Instructor/Techni logan ID = [id number] for DAYNE BAPTISTE POCT-GLUCOSE [id number] 08:22:00 Test Item Value Reference Range Interpretation Comments POC-GLUCOSE METER 105 mg/dL 70-110 : TESTED A T [facility] 6720 (BEAKER) (test code [facility], = 1538) [address]: Power Equipment Mechanics Instructor/Techni logan ID = [id number] for DAYNE BAPTISTE [id number] 06:26:00 Test Item Value Reference Range Interpretation Comments PARTIAL THROMBOPLASTIN TIME 97.4 seconds 22.5-36.0 H (BEAKER) (test code = 760) While on warfarin.PROTHROMBIN TIME/[id number] 06:24:00 Test Item Value Reference Range Interpretation [...] wiht mechanical heart valves.While on warfarin.BASIC METABOLIC [id number] 06:22:00 Test Item Value Reference Range Interpretation [...] S NOT APPLICABLE FOR DIALYSIS PATIEN TS. Power Equipment Mechanics Instructor ID - VARSHA MCBC (HEMOGRAM ONLY)2019-12-06 05:55:00 [...] WBC 0-0 (BEAKER) (test code = 413) [id number] 23:28:00 Test Item Value Reference Range Interpretation Comments PARTIAL THROMBOPLASTIN TIME 41.2 seconds 22.5-36.0 H (BEAKER) (test code = 760) POCT-GLUCOSE [id number] 21:32:00 Test Item Value Reference Range Interpretation Comments POC-GLUCOSE METER 123 mg/dL 70-110 H : TESTED A T [facility] [address] ([facility]) (test code = [facility]ASMINE Jordan [facility], 1538) [address]: Power Equipment Mechanics Instructor/Techni logan ID = [id number] for DE ANNIE WAY [id number] 21:24:00 Test Item Value Reference Range Interpretation Comments PARTIAL THROMBOPLASTIN TIME 75.2 seconds 22.5-36.0 H (BEAKER) (test code = 760) POCT-GLUCOSE [id number] 16:35:00 Test Item Value Reference Range Interpretation Comments POC-GLUCOSE METER 174 mg/dL 70-110 H : Notified RN/MD: TESTED ([facility]) ([facility] = 1538) [facility], [address]: Power Equipment Mechanics Instructor/Techni logan ID = [id number] for TSEG GAI, TSIGHEREDA POCT-GLUCOSE [id number] 13:25:00 Test Item Value Reference Range Interpretation Comments POC-GLUCOSE METER 136 mg/dL 70-110 H : TESTED A T [facility] [address] ([facility]) ([facility], = 1538) [address]: Power Equipment Mechanics Instructor/Techni logan ID = [id number] for TSEG GAI, TSIGHEREDA [id number] 13:02:00 Test Item Value Reference Range Interpretation Comments PARTIAL THROMBOPLASTIN TIME 102.3 seconds 22.5-36.0 H ([facility]) (test code = 760) Transesophageal [id number] 12:16:29Ejection FractionSLEH ECHO HEARTLAB MKCKESSON CPACSInterface, External Ris In - 12/05/2019 12:16 PM C DTTransesophageal Echocardiography Report (LINDA) Demographics Patient Name QUIANA VALLADARES Date of Study 12/05/2019 KARINA Gender Female Visit Number [id number] Race Room Number 2223 Number Date of 1955 Referring Physician Helio Buitrago MD Age 64 year(s) Gas Main Fitter Helper Rob Zurita Interpreting Donato Beth MD Physician [...] is noted. Atrial septal position continuously bows culw-ha-jjtwe, consistent with elevated LA pressure. Intermittently, with [...] bradycardia during the exam. 3D imaging (cpt 99330) rendering with interpretation was performed. Left Normal [...] Septum noted. Atrial septal position continuously bows ayaw-dt-ojguq, consistent with elevated LA pressure. Intermittently, with [...] arch. Pericardium No significant pericardial effusion is visualized.[facility] POCT-GLUCOSE [id number] 07:44:00 Test Item Value Reference Range Interpretation Comments POC-GLUCOSE METER 122 mg/dL 70-110 H : TESTED A T [facility] [address] ([employer]) (test code [facility], = 1538) [address]: Power Equipment Mechanics Instructor/Techni logan ID = [id number] for DAYNE BAPTISTE [id number] 05:43:00 Test Item Value Reference Range Interpretation Comments PARTIAL THROMBOPLASTIN TIME 63.8 seconds 22.5-36.0 H (BEAKER) (test code = 760) While on warfarin.PROTHROMBIN TIME/[id number] 05:42:00 Test Item Value Reference Range Interpretation [...] 0-0 (BEAKER) (test code = 413) POCT-GLUCOSE [id number] 21:15:00 Test Item Value Reference Range Interpretation Comments POC-GLUCOSE METER 131 mg/dL 70-110 H : TESTED A T [facility] 67[address] (BEAKER) (test code = [facility], 1538) [address]: Power Equipment Mechanics Instructor/Techni logan ID = [id number] for DE NNIS, ANNIE POCT-GLUCOSE [id number] 17:03:00 Test Item Value Reference Range Interpretation Comments POC-GLUCOSE METER 115 mg/dL 70-110 H : TESTED A T [facility] 6720 (BEAKER) (test code [facility], = 1538) [address]: Power Equipment Mechanics Instructor/Techni logan ID = [id number] for DAYNE BAPTISTE [id number] 15:42:00 Test Item Value Reference Range Interpretation Comments PARTIAL THROMBOPLASTIN TIME 79.2 seconds 22.5-36.0 H (BEAKER) (test code = 760) POCT-GLUCOSE [id number] 11:47:00 Test Item Value Reference Range Interpretation Comments POC-GLUCOSE METER 106 mg/dL 70-110 : TESTED A T [facility] 6720 (BEAKER) (test code [facility], = 1538) 24[address]: Power Equipment Mechanics Instructor/Techni logan ID = [id number] for DECLAN BAPTISTEA BASIC METABOLIC [id number] 08:29:00 Test Item Value Reference Range Interpretation [...] S NOT APPLICABLE FOR DIALYSIS PATIEN TS. Power Equipment Mechanics Instructor ID - EMERSONPOCT-GLUCOSE [id number] 08:24:00 Test Item Value Reference Range Interpretation Comments POC-GLUCOSE METER 111 mg/dL 70-110 H : TESTED A T [facility] [address] (BEAKER) (test code [facility], = 1538) [address]: Power Equipment Mechanics Instructor/Techni logan ID = [id number] for DAYNE BAPTISTE PT/[id number] 08:04:00 Test Item Value Reference Range Interpretation Comments Protime (test code = 15.9 11.9- 14.2 H 5902-2) seconds INR (test code = 1.3 <=5.9 6301-6) PTT (test code = 90.4 22.5- 36.0 H 81155-9) seconds JANETTE (test code = JANETTE) Effective 01/25/2019: PT Reference Range ChangeNew: 11.9-14.2 Previous: 11.7-14.7 RECOMMENDED COUMADIN/WARFARIN INR THERAPY RANGESSTANDARD DOSE: 2.0-3.0 Includes: PROPHYLAXIS for venous thrombosis, systemic embolization; TREATMENT for venous thrombosis and/or pulmonary embolus.HIGH RISK: Target INR is 2.5-3.5 for patients wiht mechanical heart valves. While on warfarin.While on warfarin. Lab Interpretation Abnormal (test code = 83933-6) [facility]ilionPT/[id number] 08:04:00 Test Item Value Reference Range Interpretation [...] heart valves.While on warfarin.While on warfarin. PROTHROMBIN TIME/[id number] 08:02:00 Test Item Value Reference Range Interpretation [...] WBC 0-0 (BEAKER) (test code = 413) [id number] 23:55:00 Test Item Value Reference Range Interpretation [...] is2.5-3.5 for patients wiht mechanical heart valves.POCT-GLUCOSE [id number] 21:15:00 Test Item Value Reference Range Interpretation Comments POC-GLUCOSE METER 112 mg/dL 70-110 H : TESTED A T [facility] [address] (BEAKER) (test code = [place], 1538) [address]: Power Equipment Mechanics Instructor/Techni logan ID = [id number] for CIELO HERNANDEZ PT/[id number] 17:19:00 Test Item Value Reference Range Interpretation [...] is2.5-3.5 for patients wiht mechanical heart valves.POCT-GLUCOSE [id number] 17:06:00 Test Item Value Reference Range Interpretation Comments POC-GLUCOSE METER 143 mg/dL 70-110 H : TESTED A T [facility] 6720 (BEAKER) (test code = [facility], 1538) 227[address]: Power Equipment Mechanics Instructor/Techni logan ID = [id number] for MATIAS CASTELLANO, SHANIQUA POCT-GLUCOSE [id number] 11:39:00 Test Item Value Reference Range Interpretation Comments POC-GLUCOSE METER 128 mg/dL 70-110 H : TESTED A T [facility] 6720 (BEAKER) (test code = [facility], 1538) 54[address]: Power Equipment Mechanics Instructor/Techni logan ID = [id number] for MATIAS CASTELLANO, JUANJOSETERA POCT-GLUCOSE [id number] 08:01:00 Test Item Value Reference Range Interpretation Comments POC-GLUCOSE METER 96 mg/dL 70-110 : TESTED A T [facility] 6720 (BEAKER) (test code = [facility], 1538) [address]: Power Equipment Mechanics Instructor/Techni logan ID = [id number] for SHANIQUA FERRER PT/[id number] 06:28:00 Test Item Value Reference Range Interpretation [...] heart valves.While on warfarin.While on warfarin. PROTHROMBIN TIME/[id number] 06:12:00 Test Item Value Reference Range Interpretation [...] 0-0 (BEAKER) (test code = 413) POCT-GLUCOSE [id number] 20:49:00 Test Item Value Reference Range Interpretation Comments POC-GLUCOSE METER 102 mg/dL 70-110 : TESTED A T [facility] [address] (BEAKER) (test code = [place], 1538) [address]: Power Equipment Mechanics Instructor/Techni logan ID = [id number] for CIELO HERNANDEZ POCT-GLUCOSE [id number] 18:32:00 Test Item Value Reference Range Interpretation Comments POC-GLUCOSE METER 132 mg/dL 70-110 H : TESTED A T [facility] 6720 (BEAKER) (test code = [facility], [facility]) [address]: Power Equipment Mechanics Instructor/Techni logan ID = [id number] for AK INSONU, PEEWEE POCT-GLUCOSE [id number] 18:28:00 Test Item Value Reference Range Interpretation Comments POC-GLUCOSE METER 85 mg/dL 70-110 : TESTED A T [facility] 6720 (BEAKER) (test code = [facility], 1538) 25688: Power Equipment Mechanics Instructor/Techni logan ID = [id number] for LUPE TAYO, PEEWEE POCT-GLUCOSE [id number] 18:26:00 Test Item Value Reference Range Interpretation Comments POC-GLUCOSE METER 111 mg/dL 70-110 H : TESTED A T [facility] 6720 (BEAKER) (test code = [facility], [facility]) [address]2860: Power Equipment Mechanics Instructor/Techni logan ID = [id number] for Sebastian Soto POCT-GLUCOSE [id number] 18:24:00 Test Item Value Reference Range Interpretation Comments POC-GLUCOSE METER 104 mg/dL 70-110 : TESTED A T [facility] 6720 (BEAKER) (test code = [facility], [facility]) 48441: Power Equipment Mechanics Instructor/Techni logan ID = [id number] for AK INSONU, PEEWEE [id number] 06:50:00 Test Item Value Reference Range Interpretation Comments D-Dimer, Quant (test code 0.42 <0.50 MG/L FEU = 91887-2) JANETTE (test code = JANETTE) Intended Use: [...] warfarin. Lab Interpretation (test Normal code = 29573-6) [facility]ilionD-[id number] 06:50:00 Test Item Value Reference Range Interpretation [...] of thrombosis is within 95-100% range.While on warfarin.PT/[id number] 06:49:00 Test Item Value Reference Range Interpretation [...] heart valves.While on warfarin.While on warfarin. PROTHROMBIN TIME/[id number] 06:47:00 Test Item Value Reference Range Interpretation [...] WBC 0-0 (BEAKER) (test code = 413) [id number] 01:34:00 Test Item Value Reference Range Interpretation Comments PARTIAL THROMBOPLASTIN TIME 91.6 seconds 22.5-36.0 H (BEAKER) (test code = 760) POCT-GLUCOSE [id number] 20:46:00 Test Item Value Reference Range Interpretation Comments POC-GLUCOSE METER 118 mg/dL 70-110 H : TESTED A T [facility] [address] (BEAKER) (test code = [place], 1538) [address]: Power Equipment Mechanics Instructor/Techni logan ID = [id number] for DE NNIS, ANNIE [id number] 17:59:00 Test Item Value Reference Range Interpretation Comments PARTIAL THROMBOPLASTIN TIME 78.3 seconds 22.5-36.0 H (BEAKER) (test code = 760) POCT-GLUCOSE [id number] 17:22:00 Test Item Value Reference Range Interpretation Comments POC-GLUCOSE METER 144 mg/dL 70-110 H : TESTED A T [facility] [address] (MIKE) (test code = [place] [place], 1538) [address]: Power Equipment Mechanics Instructor/Techni logan ID = [id number] for PEEWEE OTERO Venous doppler legs [id number] 13:05:55Ejection FractionSLEH ECHO HEARTLAB MKCKESSON CPACSRight Impression1. [...] of Study 12/01/2019 Age 64 Visit Number [id number] Gender Female Accession Number [id number] Date of 1955 Referring [facility] Room Number 2223 Physician MD Nicolasa Gas Main Fitter Helper Nomi Lara RVT Interpreting Christa Carter Physician [...] in cm/s ; Diameters are measured in [facility] POCT-GLUCOSE [id number] 12:55:00 Test Item Value Reference Range Interpretation Comments POC-GLUCOSE METER 100 mg/dL 70-110 : [facility]ER[facility] (test code = [facility], 1538) 53163: Power Equipment Mechanics Instructor/Techni logan ID = [id number] for PEEWEE OTERO [id number] 10:36:00 Test Item Value Reference Range Interpretation [...] 0-0 (BEAKER) (test code = 413) POCT-GLUCOSE [id number] 08:11:00 Test Item Value Reference Range Interpretation Comments POC-GLUCOSE METER 99 mg/dL 70-110 : TESTED [facility] 6720 (BEAKER) (test code = [place], 1538) 72793: Power Equipment Mechanics Instructor/Techni logan ID = [id number] for PEEWEE WILSON [id number] 02:54:00 Test Item Value Reference Range Interpretation Comments PARTIAL THROMBOPLASTIN TIME 42.2 seconds 22.5-36.0 H (BEAKER) (test code = 760) [id number] 00:16:00 Test Item Value Reference Range Interpretation [...] is2.5-3.5 for patients wiht mechanical heart valves.POCT-GLUCOSE [id number] 21:16:00 Test Item Value Reference Range Interpretation Comments POC-GLUCOSE METER 125 mg/dL 70-110 H : TESTED A T [facility] 6720 (BEAKER) (test code = [place], 1538) 23394: Power Equipment Mechanics Instructor/Techni logan ID = [id number] for DE NNIS, ANNIE POCT-GLUCOSE [id number] 18:00:00 Test Item Value Reference Range Interpretation Comments POC-GLUCOSE METER 126 mg/dL 70-110 H : TESTED A T [facility] 6720 ([employer]) (test code = [place], 1538) 14573: Power Equipment Mechanics Instructor/Techni logan ID = [id number] for RO MAMIE SHIRLEY 2D Echo W/Doppler(CW/PW/Color)2019-11-30 17:12:06Ejection FractionSLEH ECHO HEARTLAB MKCKESSON CPACSInterface, External Ris In - 11/30/2019 5:12 PM C DTTransthoracic Echocardiography Report (TTE) Demographics Patient Name QUIANA VALLADARES Date ofStudy 11/30/2019 KARINA Gender Female Visit Number [id number] Race Room Number 2223 Number Date of 1955 Referring Physician Briseida blunt MD Age 64 year(s) Gas Main Fitter Helper Viola Hargrove Interpreting Donato Beth MD Physician [...] CO: 3.48 l/min LVOT CI: 2.26 l/min/m^2[facility] 16:10:00 Test Item Value Reference Range Interpretation Comments PARTIAL THROMBOPLASTIN TIME 28.0 seconds 22.5-36.0 (BEAKER) (test code = 760) POCT-GLUCOSE [id number] 12:43:00 Test Item Value Reference Range Interpretation Comments POC-GLUCOSE METER 94 mg/dL 70-110 : TESTED A T [facility] 6720 (BEAKER) (test code = [facility] [place], 1538) 069[address]: Power Equipment Mechanics Instructor/Techni olgan ID = [id number] for MAMIE RIGGS POCT-GLUCOSE [id number] 08:13:00 Test Item Value Reference Range Interpretation Comments POC-GLUCOSE METER 121 mg/dL 70-110 H : TESTED A T [facility] 6720 (BEAKER) (test code = LORELEI [place] [facility], 1538) 45829: Power Equipment Mechanics Instructor/Techni logan ID = [id number] for MAMIE UMAÑA [id number] 04:38:00 Test Item Value Reference Range Interpretation [...] code = 413) MR, MRA, BRAIN, WITHOUT [id number] 23:14:00Reason for exam:->Ischemic Stroke EvaluationFINAL REPORT MR, [...] shift or hydrocephalus. No acute intracranial hemorrhage. Gayd-jd-idxcntlo nonspecific supratentorial and infratentorial white matter T2 [...] 11/29/2019 23:14:20 MR, MRA, NECK, WITHOUT IV [id number] 23:14:00Reason for exam:->Ischemic Stroke EvaluationFINAL REPORT MR, [...] shift or hydrocephalus. No acute intracranial hemorrhage. Pxwz-uj-olmgktzk nonspecific supratentorial and infratentorial white matter T2 [...] Verified Date/Time: 11/29/2019 23:14:20 MR, BRAIN, WITHOUT [id number] 23:14:00Reason for exam:->Ischemic Stroke EvaluationFINAL REPORT MR, [...] shift or hydrocephalus. No acute intracranial hemorrhage. Jnix-yy-aqbyjyiz nonspecific supratentorial and infratentorial white matter T2 [...] Date/Time: 11/29/2019 23:14:20 MRA head without IV [id number] 23:14:00Interface, External Ris In - 11/29/2019 11:16 [...] or hydrocephalus. No a cute intracranial hemorrhage. Xacy-rl-jygqqhyj nonspecific supratentorial and infratentorial white matter T2 [...] Silvano Bruce MDReport Verified Date/Time: 11/29/2019 23:14:20 [facility] [id number] 23:14:00Interface, External Ris In - 11/29/2019 11:16 [...] shift or hydrocephalus. No acute intracranial hemorrhage. Qowe-ax-pjfznkyr nonspecific supratentorial and infratentorial white matter T2 [...] Silvano Bruce MDRadamort Verified Date/Time: 11/29/2019 23:14:20 [facility] CenterMR brain without IV [id number] 23:14:00Interface, External Ris In - 11/29/2019 11:16 [...] shift or hydrocephalus. No acute intracranial hemorrhage. Xdhx-ux-xdlsdmqb nonspecific supratentorial and infratentorial white matter T2 [...] Silvano Bruce MDReport Verified Date/Time: 11/29/2019 23:14:20 [facility] CenterTS/Free T4 If [id number] 22:52:00 Test Item Value Reference Range Interpretation Comments TSH (test code = 56302-4) 0.87 0.35- 4.94 uIU/mL JANETTE (test code = JANETTE) Power Equipment Mechanics Instructor ID - DB Lab Interpretation (test Normal code = 30184-8) [facility]ilionVitamin B12 and [id number] 22:52:00 Test Item Value Reference Range Interpretation Comments Vitamin B12 (test code = 335 pg/mL 040-852 3436-9) Folate (test code = 2284-8) 11.7 ng/mL >=7.0 JANETTE (test code = JANETTE) Power Equipment Mechanics Instructor ID - DB Lab Interpretation (test Normal code = 75279-5) [facility]ilionTS/FREE T4 IF [id number] 22:52:00 Test Item Value Reference Range Interpretation Comments THYROID STIMULATING HORMONE 0.87 uIU/mL 0.35-4.94 (BEAKER) (test code = 772) Power Equipment Mechanics Instructor ID - DBVITAMIN B12 AND [id number] 22:52:00 Test Item Value Reference Range Interpretation Comments VITAMIN B12 (BEAKER) (test code = 335 pg/mL 213-816 774) FOLATE (BEAKER) (test code = 362) 11.7 ng/mL >=7.0 Power Equipment Mechanics Instructor ID - DBHemoglobin [id number] 22:12:00 Test Item Value Reference Range Interpretation Comments Hemoglobin A1C (test code = 4548-4) 5.7 % 4.3-6.1 Lab Interpretation (test code = Normal 06590-1) [facility]ilionHEMOGLOBIN [id number] 22:12:00 Test Item Value Reference Range Interpretation Comments HEMOGLOBIN A1C (BEAKER) (test code = 5.7 % 4.3-6.1 368) Lipid [id number] 21:49:00 Test Item Value Reference Range Interpretation Comments Triglycerides (test 143 mg/dL code = 2571-8) Cholesterol (test code 158 mg/dL = 2093-3) HDL (test code = 45 mg/dL 5-9) LDL Calculated (test 84 mg/dL code = 02449-7) JANETTE (test code = JANETTE) Triglyceride Reference Range: Low Risk <150 Borderline 150-199 High Risk 200-499 Very High Risk >=500 Cholesterol Reference Range: Low Risk <200 Borderline 200-239 High Risk >240 HDL Cholesterol Reference Range: Low Risk >=60 High Risk <40 LDL Cholesterol Reference Range: Optimal <100 Near Optimal 100-129 Borderline 130-159 High 160-189 Very High >=190 Power Equipment Mechanics Instructor ID - DB [facility] PavilionLIPID [id number] 21:49:00 Test Item Value Reference Range Interpretation Comments TRIGLYCERIDES (BEAKER) (test code = 143 mg/dL 540) CHOLESTEROL (BEAKER) (test code = 158 mg/dL 631) HDL CHOLESTEROL (BEAKER) (test code 45 mg/dL = 976) LDL CHOLESTEROL CALCULATED ([facility]) 84 mg/dL (test code = 633) Triglyceride Reference Range: Low Risk <150 Borderline 150-199 High Risk 200-499 Very High Risk >=500Cholesterol Reference Range: Low Risk <200 Borderline 200-239 High Risk >240HDL Cholesterol Reference Range: Low Risk >=60 High Risk <40LDL Cholesterol Reference Range: Optimal <100 Near Optimal 100-129 Borderline 130-159 High 160-189 Very High >=190 Power Equipment Mechanics Instructor ID - [id number] 21:41:00 Test Item Value Reference Range Interpretation Comments PARTIAL THROMBOPLASTIN TIME 29.8 seconds 22.5-36.0 (BEAKER) (test code = 760) 6 hours after starting heparin infusion and as indicated per sliding scale Platelet [id number] 21:32:00 Test Item Value Reference Range Interpretation Comments Platelets (test code = 256 150- 450 K/CU MM 777-3) JANETTE (test code = JANETTE) Power Equipment Mechanics Instructor ID - [id number] Lab Interpretation (test Normal code = 14646-3) [facility] PavilionPLATELET [id number] 21:32:00 Test Item Value Reference Range Interpretation Comments PLATELET COUNT (BEAKER) (test 256 K/CU MM 150-450 code = 756) Power Equipment Mechanics Instructor ID - [id number]-GLUCOSE [id number] 20:07:00 Test Item Value Reference Range Interpretation Comments POC-GLUCOSE METER 114 mg/dL 70-110 H : TESTED A T [facility] 6720 (BEAKER) (test code = [facility], 1538) 41911: Power Equipment Mechanics Instructor/Techni logan ID = [id number] for AZIZA HILTON POCT-GLUCOSE [id number] 12:13:00 Test Item Value Reference Range Interpretation Comments POC-GLUCOSE METER 142 mg/dL 70-110 H : TESTED A T [facility] 6720 (BEAKER) (test code = [facility], 1538) 12732: Power Equipment Mechanics Instructor/Techni logan ID = [id number] for RAJESH MIMS POCT-GLUCOSE [id number] 08:40:00 Test Item Value Reference Range Interpretation Comments POC-GLUCOSE METER 93 mg/dL 70-110 : TESTED A T [facility] 6720 (BEAKER) (test code = [facility], 1538) 40367: Power Equipment Mechanics Instructor/Techni logan ID = [id number] for MURIEL MORRISSEYWITHA [id number] 06:28:00 Test Item Value Reference Range Interpretation Comments Magnesium (test code = 2.1 mg/dL 1.6-2.6 49310-3) JANETTE (test code = JANETTE) Power Equipment Mechanics Instructor ID - DB Lab Interpretation (test Normal code = 87797-1) [facility]ilionPhosphorus2020-03-29 06:28:00 Test Item Value Reference Range Interpretation Comments Phosphorus (test code = 4.3 mg/dL 2.3-4.7 2777-1) JANETTE (test code = JANETTE) Power Equipment Mechanics Instructor ID - DB Lab Interpretation (test Normal code = 98497-8) [facility] PavilionPHOSPHORUS2020-03-29 06:28:00 Test Item Value Reference Range Interpretation Comments PHOSPHORUS (BEAKER) (test code = 4.3 mg/dL 2.3-4.7 604) Power Equipment Mechanics Instructor ID - [id number] 06:28:00 Test Item Value Reference Range Interpretation Comments MAGNESIUM (BEAKER) (test code = 2.1 mg/dL 1.6-2.6 627) Power Equipment Mechanics Instructor ID - DBBASIC METABOLIC [id number] 06:28:00 Test Item Value Reference Range Interpretation [...] S NOT APPLICABLE FOR DIALYSIS PATIEN TS. Power Equipment Mechanics Instructor ID - [id number] 05:12:00 Test Item Value Reference Range Interpretation Comments PARTIAL THROMBOPLASTIN TIME 30.3 seconds 22.5-36.0 (BEAKER) (test code = 760) PROTHROMBIN TIME/[id number] 05:11:00 Test Item Value Reference Range Interpretation [...] 0-0 (BEAKER) (test code = 413) POCT-GLUCOSE [id number] 21:38:00 Test Item Value Reference Range Interpretation Comments POC-GLUCOSE METER 141 mg/dL 70-110 H : TESTED A T [facility] 6720 (BEAKER) (test code = [facility], 153) 40627: Power Equipment Mechanics Instructor/Techni logan ID = [id number] for DANIELLE CARTER SE POCT-GLUCOSE [id number] 18:28:00 Test Item Value Reference Range Interpretation Comments POC-GLUCOSE METER 94 mg/dL 70-110 : TESTED A T [facility] 6720 (BEAKER) (test code = [facility], 153) 75504: Power Equipment Mechanics Instructor/Techni logan ID = [id number] for RAJESH MORRISSEY POCT-GLUCOSE [id number] 17:00:00 Test Item Value Reference Range Interpretation Comments POC-GLUCOSE METER 100 mg/dL 70-110 : TESTED A T [facility] 6720 (BEAKER) (test code = [facility], 153) 31352: Power Equipment Mechanics Instructor/Techni logan ID = [id number] for KELLY RUDOLPH POCT-GLUCOSE [id number] 12:02:00 Test Item Value Reference Range Interpretation Comments POC-GLUCOSE METER 196 mg/dL 70-110 H : TESTED A T [facility] 6720 (BEAKER) (test code = [place], 1538) 42208: Power Equipment Mechanics Instructor/Techni logan ID = [id number] for MOOKIE NTER, MURIELWITHA POCT-GLUCOSE [id number] 08:12:00 Test Item Value Reference Range Interpretation Comments POC-GLUCOSE METER 119 mg/dL 70-110 H : TESTED A T [facility] 6720 (BEAKER) (test code = [place], 1538) 43782: Power Equipment Mechanics Instructor/Techni logan ID = [id number] for MOOKIE NTER, HIWITHA [id number] 05:45:00 Test Item Value Reference Range Interpretation Comments PHOSPHORUS (BEAKER) (test code = 5.2 mg/dL 2.3-4.7 H 604) Power Equipment Mechanics Instructor ID - KESHIA [id number] 05:45:00 Test Item Value Reference Range Interpretation Comments MAGNESIUM (BEAKER) (test code = 1.9 mg/dL 1.6-2.6 627) Power Equipment Mechanics Instructor ID - KESHIA LBASIC METABOLIC [id number] 05:45:00 Test Item Value Reference Range Interpretation [...] S NOT APPLICABLE FOR DIALYSIS PATIEN TS. Power Equipment Mechanics Instructor ID - KESHIA LPROTHROMBIN TIME/[id number] 05:42:00 Test Item Value Reference Range Interpretation [...] INR is2.5-3.5 for patients wiht mechanical heart valves.[id number] 05:42:00 Test Item Value Reference Range Interpretation [...] 0-0 (BEAKER) (test code = 413) POCT-GLUCOSE [id number] 21:27:00 Test Item Value Reference Range Interpretation Comments POC-GLUCOSE METER 139 mg/dL 70-110 H : TESTED A T [facility] 6720 (BEAKER) (test code = LORELEI Jordan [facility], 1538) 25671: Power Equipment Mechanics Instructor/Techni logan ID = [id number] for DANIELLE CARTER SE POCT-GLUCOSE [id number] 12:27:00 Test Item Value Reference Range Interpretation Comments POC-GLUCOSE METER 149 mg/dL 70-110 H : TESTED A T [facility] 6720 (BEAKER) (test code = LORELEI Jordan [facility], 1538) 64666: Power Equipment Mechanics Instructor/Techni logan ID = [id number] for KELLY RUDOLPH CT, BRAIN, WITHOUT [id number] 11:04:00FINAL REPORT CT Head without contrast CLINICAL [...] MDReport Verified Date/Time: 11/24/2019 11:04:11 Reading Location: [facility] B1 C013V Neuro Reading Room CT brain without IV [id number] 11:04:00Interface, External Ris In - 11/24/2019 11:06 [...] MDReport Verified Date/Time: 11/24/2019 11:04:11 Reading Location: [address] Neuro [facility] [id number] 08:10:00 Test Item Value Reference Range Interpretation Comments POC-GLUCOSE METER 112 mg/dL 70-110 H : TESTED A T [facility] 6720 (BEAKER) (test code = LORELEI Jordan [facility], 1538) 44955: Power Equipment Mechanics Instructor/Techni logan ID = [id number] for KELLY RUDOLPH [id number] 05:13:00 Test Item Value Reference Range Interpretation Comments PHOSPHORUS (BEAKER) (test code = 3.9 mg/dL 2.3-4.7 604) Power Equipment Mechanics Instructor ID - WILFRIDYANELY [id number] 05:13:00 Test Item Value Reference Range Interpretation Comments MAGNESIUM (BEAKER) (test code = 2.2 mg/dL 1.6-2.6 627) Power Equipment Mechanics Instructor ID - KESHIA LBASIC METABOLIC [id number] 05:13:00 Test Item Value Reference Range Interpretation [...] S NOT APPLICABLE FOR DIALYSIS PATIEN TS. Power Equipment Mechanics Instructor ID - PIAYA [id number] 05:06:00 Test Item Value Reference Range Interpretation Comments PARTIAL THROMBOPLASTIN TIME 31.0 seconds 22.5-36.0 (BEAKER) (test code = 760) PROTHROMBIN TIME/[id number] 05:05:00 Test Item Value Reference Range Interpretation [...] 0-0 (BEAKER) (test code = 413) POCT-GLUCOSE [id number] 21:40:00 Test Item Value Reference Range Interpretation Comments POC-GLUCOSE METER 89 mg/dL 70-110 : TESTED A T [facility] 6720 ([facility]) (test code = LORELEI Jordan [facility], 1538) 30700: Power Equipment Mechanics Instructor/Techni logan ID = [id number] for CLEVELAND DIAMOND 2D Echo W/Doppler(CW/PW/Color)2019-11-23 15:20:12Ejection FractionSLEH ECHO HEARTLAB MKCKESSON CPACSInterface, External Ris In - 11/23/2019 3:20 PM C DTTransthoracic Echocardiography Report (TTE) Demographics Patient Name QUIANA VALLADARES Date of Study 11/23/2019 KARINA Gender Female Visit Number [id number] Race Room Number 2CV24 Number Date of 1955 Referring Jonathan Morillo Physician MD Shantelle Age 64 year(s) 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 6720 (BEAKER) (test code = [place], 1538) 49180: Power Equipment Mechanics Instructor/Techni logan ID = [id number] for KELLY RUDOLPH CBC with platelet count + automated [id number] 03:48:00 Test Item Value Reference Range Interpretation [...] 450 K/CU MM MPV (test code = 69872-8) 8.9 fL 9.4-12.3 L nRBC (test code [...] 2801) Lab Interpretation (test code = Abnormal 53751-4) [facility] W/PLT COUNT & AUTO [id number] 03:48:00 Test Item Value Reference Range Interpretation [...] 0-1 PERCENT (BEAKER) (test code = 2801) [id number] 03:47:00 Test Item Value Reference Range Interpretation Comments PHOSPHORUS (BEAKER) (test code = 3.6 mg/dL 2.3-4.7 604) Power Equipment Mechanics Instructor ID - VARSHA [id number] 03:47:00 Test Item Value Reference Range Interpretation Comments MAGNESIUM (BEAKER) (test code = 2.2 mg/dL 1.6-2.6 627) Power Equipment Mechanics Instructor ID - VARSHA MBASIC METABOLIC [id number] 03:47:00 Test Item Value Reference Range Interpretation [...] S NOT APPLICABLE FOR DIALYSIS PATIEN TS. Power Equipment Mechanics Instructor ID - VARSHA [id number] 03:43:00 Test Item Value Reference Range Interpretation Comments PARTIAL THROMBOPLASTIN TIME 29.4 seconds 22.5-36.0 (BEAKER) (test code = 760) PROTHROMBIN TIME/[id number] 03:42:00 Test Item Value Reference Range Interpretation [...] INR is2.5-3.5 for patients wiht mechanical heart valves.WEUR-[id number] 14:03:00 Test Item Value Reference Range Interpretation Comments ACTIVATED CLOTTING TIME 400 sec : 74 -137 seconds, (BEAKER) (test code = Baseli ne: TESTED AT 441) [facility] [address] [place] [address], [facility] 30: Power Equipment Mechanics Instructor/Techni logan ID = [id number] for ALISON BROUSSARD [id number] 14:02:00 Test Item Value Reference Range Interpretation Comments ACTIVATED CLOTTING TIME 285 sec : 74 -137 seconds, (BEAKER) (test code = Baseli ne: TESTED AT 441) [address], [facility] 30: Power Equipment Mechanics Instructor/Techni logan ID = [id number] for ALISON BROUSSARD RAD, CHEST, 1 VIEW, NON [id number] 11:37:00Reason for exam:->Post-op TAVRShould this be performed [...] Graham Verified Date/Time: 11/22/2019 11:37:14 Reading Location: [address] Radiology Reading Room [id number] 11:08:00 Test Item Value Reference Range Interpretation Comments PHOSPHORUS (BEAKER) (test code = 3.5 mg/dL 2.3-4.7 604) Power Equipment Mechanics Instructor ID - BRIONNA [id number] 11:08:00 Test Item Value Reference Range Interpretation Comments MAGNESIUM (BEAKER) (test code = 2.2 mg/dL 1.6-2.6 627) Power Equipment Mechanics Instructor ID Sheridan STATON FBASIC METABOLIC [id number] 11:08:00 Test Item Value Reference Range Interpretation [...] S NOT APPLICABLE FOR DIALYSIS PATIEN TS. Power Equipment Mechanics Instructor ID Sheridan STATON [id number] 11:06:00 Test Item Value Reference Range Interpretation Comments PARTIAL THROMBOPLASTIN TIME 29.9 seconds 22.5-36.0 (BEAKER) (test code = 760) PROTHROMBIN TIME/[id number] 11:05:00 Test Item Value Reference Range Interpretation [...] mechanical heart valves.CBC W/PLT COUNT & AUTO [id number] 11:03:00 Test Item Value Reference Range Interpretation [...] (BEAKER) (test code = 2801) Blood gas, [id number] 10:54:00 Test Item Value Reference Range Interpretation [...] % Lab Interpretation (test code = Abnormal 91283-7) [facility]ilionHGB/HCT (H&H)-Stat [id number] 10:54:00 Test Item Value Reference Range Interpretation Comments Hemoglobin (test code = 786-4) 11.0 g/dL 12-15 L Hematocrit (test code = 4544-3) 32.0 % 36-45 L Lab Interpretation (test code = Abnormal 07000-2) [facility]ilionGlucose-Stat [id number] 10:54:00 Test Item Value Reference Range Interpretation Comments Glucose (test code = 2345-7) 121 mg/dL 70-110 H Lab Interpretation (test code = Abnormal 62656-6) [facility]ilionBLOOD GAS, [id number] 10:54:00 Test Item Value Reference Range Interpretation [...] (test code = 1819) 36.0 % GLUCOSE-STAT [id number] 10:54:00 Test Item Value Reference Range Interpretation Comments GLUCOSE RANDOM (BEAKER) (test code 121 mg/dL 70-110 H = 652) HGB/HCT (H&H) - STAT [id number] 10:54:00 Test Item Value Reference Range Interpretation Comments HEMOGLOBIN (BEAKER) (test code = 11.0 g/dL 12.0-15.0 L 410) HEMATOCRIT (BEAKER) (test code = 32.0 % 36.0-45.0 L 411) Calcium, [id number] 10:53:00 Test Item Value Reference Range Interpretation Comments Calcium, Ion (test code = 1994-3) 1.14 mmol/L 1.12-1.27 pH, Blood (test code = 28592-2) 7.41 [facility] [id number] 10:53:00 Test Item Value Reference Range Interpretation Comments Sodium (test code = 2951-2) 137 meq/L 135-148 Lab Interpretation (test code = Normal 17899-0) [facility]ilionPotassium-Stat [id number] 10:53:00 Test Item Value Reference Range Interpretation Comments Potassium (test code = 2823-3) 3.7 meq/L 3.6-5.5 Lab Interpretation (test code = Normal 59517-7) [facility] CenterODIUM NA-STAT [id number] 10:53:00 Test Item Value Reference Range Interpretation Comments SODIUM (BEAKER) (test code = 381) 137 meq/L 135-148 POTASSIUM-STAT [id number] 10:53:00 Test Item Value Reference Range Interpretation Comments POTASSIUM (BEAKER) (test code = 3.7 meq/L 3.6-5.5 379) CALCIUM, [id number] 10:53:00 Test Item Value Reference Range Interpretation Comments CALCIUM IONIZED (BEAKER) (test 1.14 mmol/L 1.12-1.27 code = 698) PH, BLOOD (BEAKER) (test code = 7.41 1810) [id number] 05:57:00 Test Item Value Reference Range Interpretation Comments PHOSPHORUS (BEAKER) (test code = 3.5 mg/dL 2.3-4.7 604) Power Equipment Mechanics Instructor ID - VARSHA [id number] 05:57:00 Test Item Value Reference Range Interpretation Comments MAGNESIUM (BEAKER) (test code = 2.0 mg/dL 1.6-2.6 627) Power Equipment Mechanics Instructor ID - VARSHA MBASIC METABOLIC [id number] 05:57:00 Test Item Value Reference Range Interpretation [...] S NOT APPLICABLE FOR DIALYSIS PATIEN TS. Power Equipment Mechanics Instructor ID - VARSHA [id number] 05:45:00 Test Item Value Reference Range Interpretation Comments PARTIAL THROMBOPLASTIN TIME 30.2 seconds 22.5-36.0 (BEAKER) (test code = 760) PROTHROMBIN TIME/[id number] 05:44:00 Test Item Value Reference Range Interpretation [...] mechanical heart valves.CBC W/PLT COUNT & AUTO [id number] 05:40:00 Test Item Value Reference Range Interpretation [...] PERCENT (BEAKER) (test code = 2801) POCT-GLUCOSE [id number] 05:14:00 Test Item Value Reference Range Interpretation Comments POC-GLUCOSE METER 117 mg/dL 70-110 H : TESTED A T [facility] 6720 (BEAKER) (test code = [place] [facility], 153) 28188: Power Equipment Mechanics Instructor/Techni logan ID = [id number] for DA VIS, [place] POCT-GLUCOSE [id number] 21:22:00 Test Item Value Reference Range Interpretation Comments POC-GLUCOSE METER 144 mg/dL 70-110 H : TESTED A T [facility] 6720 (BEAKER) (test code = [facility], 153) 74410: Power Equipment Mechanics Instructor/Techni logan ID = [id number] for DA VIS, [place] POCT-GLUCOSE [id number] 18:38:00 Test Item Value Reference Range Interpretation Comments POC-GLUCOSE METER 115 mg/dL 70-110 H : TESTED A T [facility] 6720 (BEAKER) (test code = [facility], 153) 58267: Power Equipment Mechanics Instructor/Techni logan ID = [id number] for KELLY RUDOLPH Prepare [id number] 17:44:00 Test Item Value Reference Range Interpretation Comments CROSSMATCH (test code = 2264) COMPATIBLE Unit ABO (test code = O Pos 9472321) UNIT NUMBER (test code = U199975039309 934-0) Status (test code = 6426787) READY Blood Bank Product (test code RED BLOOD CELLS = 2263) PRODUCT CODE (test code = T3877K60 933-2) [facility] [id number] 12:07:00 Test Item Value Reference Range Interpretation Comments POC-GLUCOSE METER 124 mg/dL 70-110 H : TESTED A T [facility] 6720 (BEAKER) (test code = LORELEI Jordan [facility], 1538) 66079: Power Equipment Mechanics Instructor/Techni logan ID = [id number] for KELLY RUDOLPH POCT-GLUCOSE [id number] 08:04:00 Test Item Value Reference Range Interpretation Comments POC-GLUCOSE METER 147 mg/dL 70-110 H : TESTED A T [facility] 6720 (BEAKER) (test code = [facility] Nikki [facility], 1538) 86374: Power Equipment Mechanics Instructor/Techni logan ID = [id number] for KELLY RUDOLPH [id number] 05:49:00 Test Item Value Reference Range Interpretation Comments PHOSPHORUS (BEAKER) (test code = 3.7 mg/dL 2.3-4.7 604) Power Equipment Mechanics Instructor ID - VARSHA [id number] 05:49:00 Test Item Value Reference Range Interpretation Comments MAGNESIUM (BEAKER) (test code = 2.0 mg/dL 1.6-2.6 627) Power Equipment Mechanics Instructor ID - VARSHA MBASIC METABOLIC [id number] 05:49:00 Test Item Value Reference Range Interpretation [...] S NOT APPLICABLE FOR DIALYSIS PATIEN TS. Power Equipment Mechanics Instructor ID - VARSHA MPOCT-GLUCOSE [id number] 21:18:00 Test Item Value Reference Range Interpretation Comments POC-GLUCOSE METER 133 mg/dL 70-110 H : TESTED A T [facility] 6720 (BEAKER) (test code = [facility], 1538) 03698: Power Equipment Mechanics Instructor/Techni logan ID = [id number] for DANIELLE CARTER SE POCT-GLUCOSE [id number] 17:21:00 Test Item Value Reference Range Interpretation Comments POC-GLUCOSE METER 113 mg/dL 70-110 H : TESTED A T [facility] 6720 (BEAKER) (test code = [facility], 1538) 26477: Power Equipment Mechanics Instructor/Techni logan ID = [id number] for KELLY RUDOLPH POCT-GLUCOSE [id number] 12:13:00 Test Item Value Reference Range Interpretation Comments POC-GLUCOSE METER 95 mg/dL 70-110 : TESTED A T [facility] 6720 (BEAKER) (test code = [facility], 1538) 59339: Power Equipment Mechanics Instructor/Techni logan ID = [id number] for FAINA MORGAN POCT-GLUCOSE [id number] 08:03:00 Test Item Value Reference Range Interpretation Comments POC-GLUCOSE METER 140 mg/dL 70-110 H : TESTED A T [facility] 6720 (BEAKER) (test code = [facility], 1538) 66435: Power Equipment Mechanics Instructor/Techni logan ID = [id number] for FAINA FOSTER [id number] 06:24:00 Test Item Value Reference Range Interpretation Comments PHOSPHORUS (BEAKER) (test code = 3.9 mg/dL 2.3-4.7 604) Power Equipment Mechanics Instructor ID - KESHIA [id number] 06:24:00 Test Item Value Reference Range Interpretation Comments MAGNESIUM (BEAKER) (test code = 2.0 mg/dL 1.6-2.6 627) Power Equipment Mechanics Instructor ID - KESHIA LBASIC METABOLIC [id number] 06:24:00 Test Item Value Reference Range Interpretation [...] S NOT APPLICABLE FOR DIALYSIS PATIEN TS. Power Equipment Mechanics Instructor ID - PIAYA LPOCT-GLUCOSE [id number] 21:28:00 Test Item Value Reference Range Interpretation Comments POC-GLUCOSE METER 137 mg/dL 70-110 H : TESTED A T [facility] 6720 (BEKapost) (test code = [facility], 153) 14734: Power Equipment Mechanics Instructor/Techni logan ID = [id number] for DA VIS, [place] POCT-GLUCOSE [id number] 17:51:00 Test Item Value Reference Range Interpretation Comments POC-GLUCOSE METER 115 mg/dL 70-110 H : TESTED A T [facility] 6720 (BEAKER) (test code = [facility], 1538) 40365: Power Equipment Mechanics Instructor/Techni logan ID = [id number] for ZA VALA, ERANDY POCT-GLUCOSE [id number] 12:30:00 Test Item Value Reference Range Interpretation Comments POC-GLUCOSE METER 98 mg/dL 70-110 : TESTED A T [facility] 6720 (BEAKER) (test code = [facility] EXFO [facility], 1538) 59078: Power Equipment Mechanics Instructor/Techni logan ID = [id number] for ZAVA LA, ERANDY POCT-GLUCOSE [id number] 07:42:00 Test Item Value Reference Range Interpretation Comments POC-GLUCOSE METER 88 mg/dL 70-110 : TESTED A T [facility] 6720 (BEAKER) (test code = [facility], 1538) 58109: Power Equipment Mechanics Instructor/Techni logan ID = [id number] for INDIRA MOODY [id number] 06:09:00 Test Item Value Reference Range Interpretation Comments PHOSPHORUS (BEAKER) (test code = 3.7 mg/dL 2.3-4.7 604) Power Equipment Mechanics Instructor ID Sheridan SCHMITT [id number] 06:09:00 Test Item Value Reference Range Interpretation Comments MAGNESIUM (BEAKER) (test code = 1.9 mg/dL 1.6-2.6 627) Power Equipment Mechanics Instructor ID - KESHIA LBASIC METABOLIC [id number] 06:09:00 Test Item Value Reference Range Interpretation [...] S NOT APPLICABLE FOR DIALYSIS PATIEN TS. Power Equipment Mechanics Instructor ID - KESHIA LPOCT-GLUCOSE [id number] 21:34:00 Test Item Value Reference Range Interpretation Comments POC-GLUCOSE METER 122 mg/dL 70-110 H : TESTED A T [facility] 6720 (BEAKER) (test code = [facility], 1538) 56122: Power Equipment Mechanics Instructor/Techni logan ID = [id number] for [place] PANG POCT-GLUCOSE [id number] 17:18:00 Test Item Value Reference Range Interpretation Comments POC-GLUCOSE METER 139 mg/dL 70-110 H : TESTED A T [facility] 6720 (BEAKER) (test code = [facility], 1538) 19044: Power Equipment Mechanics Instructor/Techni logan ID = [id number] for INDIRA SCHERER POCT-GLUCOSE [id number] 12:23:00 Test Item Value Reference Range Interpretation Comments POC-GLUCOSE METER 78 mg/dL 70-110 : TESTED A T [facility] 6720 (BEAKER) (test code = [facility], 1538) 30878: Power Equipment Mechanics Instructor/Techni logan ID = [id number] for INDIRA MOODY POCT-GLUCOSE [id number] 07:53:00 Test Item Value Reference Range Interpretation Comments POC-GLUCOSE METER 120 mg/dL 70-110 H : TESTED A T [facility] 6720 (BEAKER) (test code = [facility], 1538) 07358: Power Equipment Mechanics Instructor/Techni logan ID = [id number] for INDIRA SCHERER [id number] 05:52:00 Test Item Value Reference Range Interpretation Comments PHOSPHORUS (BEAKER) (test code = 4.0 mg/dL 2.3-4.7 604) Power Equipment Mechanics Instructor ID - VARSHA [id number] 05:52:00 Test Item Value Reference Range Interpretation Comments MAGNESIUM (BEAKER) (test code = 2.0 mg/dL 1.6-2.6 627) Power Equipment Mechanics Instructor ID - VARSHA MBASIC METABOLIC [id number] 05:52:00 Test Item Value Reference Range Interpretation [...] S NOT APPLICABLE FOR DIALYSIS PATIEN TS. Power Equipment Mechanics Instructor ID - VARSHA MPROTHROMBIN TIME/[id number] 05:51:00 Test Item Value Reference Range Interpretation [...] INR is2.5-3.5 for patients wiht mechanical heart valves.PT/[id number] 05:51:00 Test Item Value Reference Range Interpretation [...] 0-0 (BEAKER) (test code = 413) POCT-GLUCOSE [id number] 21:17:00 Test Item Value Reference Range Interpretation Comments POC-GLUCOSE METER 152 mg/dL 70-110 H : TESTED A T [facility] 6720 (BEAKER) (test code = [facility], 1538) 02500: Power Equipment Mechanics Instructor/Techni logan ID = [id number] for [place] PANG POCT-GLUCOSE [id number] 11:38:00 Test Item Value Reference Range Interpretation Comments POC-GLUCOSE METER 111 mg/dL 70-110 H : TESTED A T [facility] 6720 (BEAKER) (test code = [facility], 1538) 78421: Power Equipment Mechanics Instructor/Techni logan ID = [id number] for JOELLE RHONDA YENNY B-type Natriuretic Factor (BNP)2019-11-16 11:10:00 Test Item Value Reference Range Interpretation Comments BNP (test code = 15465-3) 157 pg/mL 0-100 H JANETTE (test code = JANETTE) Power Equipment Mechanics Instructor ID - AAISACID Lab Interpretation (test Abnormal code = 86891-6) [facility]ilion[facility]-TYPE NATRIURETIC FACTOR (BNP)2019-11-16 11:10:00 Test Item Value Reference Range Interpretation Comments B-TYPE NATRIURETIC PEPTIDE (BEAKER) 157 pg/mL 0-100 H (test code = 700) Power Equipment Mechanics Instructor ID - AADANIEComprehensive metabolic [id number] 11:05:00 Test Item Value Reference Range Interpretation Comments Protein, Total (test 6.5 6.0- 8.3 gm/dL code = 2885-2) Albumin (test code = 3.7 g/dL 3.5-5 35725-8) Alkaline Phosphatase 113 U/L 40-150 (test code = 6768-6) Total Bilirubin (test 0.4 mg/dL 0.2-1.2 code = 1975-2) Sodium (test code = 137 meq/L 139-120 1331-2) Potassium (test code = 4.0 meq/L 3.5-5.1 2823-3) Chloride (test code = 103 meq/L 98-107 2075-0) CO2 (test code = 27 meq/L 22-29 2028-9) BUN (test code = 7 mg/dL 7-21 3094-0) Creatinine (test code 0.66 mg/dL 0.57-1.25 = 2160-0) Glucose (test code = 118 mg/dL 70-105 H 2345-7) Calcium (test code = 8.7 mg/dL 8.4-10.2 88029-9) AST (test code = 28 U/L 5-34 1920-8) ALT (test code = 26 U/L 6-55 1742-6) EGFR (test code = 91 mL/min/1.73 sq [place] [address]-1) NOT ACCURATE CREATININE CLEARANCE IN PREDICTING GLOMERULAR FILTRATION RATE . ESTIMATED GFR I S NOT APPLICABLE FOR DIALYSIS PATIENTS. JANETTE (test code = JANETTE) Power Equipment Mechanics Instructor ID - AAHAMID Lab Interpretation Abnormal (test code = 05823-1) [facility]ilionCOMPREHENSIVE METABOLIC [id number] 11:05:00 Test Item Value Reference Range Interpretation [...] S NOT APPLICABLE FOR DIALYSIS PATIEN TS. Power Equipment Mechanics Instructor ID - AAHAMIDPROTHROMBIN TIME/[id number] 10:50:00 Test Item Value Reference Range Interpretation [...] mechanical heart valves.CBC W/PLT COUNT & AUTO [id number] 10:44:00 Test Item Value Reference Range Interpretation [...] PERCENT (BEAKER) (test code = 2801) POCT-GLUCOSE [id number] 08:18:00 Test Item Value Reference Range Interpretation Comments POC-GLUCOSE METER 141 mg/dL 70-110 H : TESTED A T [facility] 6720 (BEAKER) (test code = LORELEI Jordan [facility], 1538) 20710: Power Equipment Mechanics Instructor/Techni logan ID = [id number] for MATHUR MURTAZA WEINER POCT-GLUCOSE [id number] 22:29:00 Test Item Value Reference Range Interpretation Comments POC-GLUCOSE METER 172 mg/dL 70-110 H : TESTED A T [facility] 6720 (BEAKER) (test code = [facility] Nikki [facility], 1538) 76762: Power Equipment Mechanics Instructor/Techni logan ID = [id number] for PH CHEPE LUBIN POCT-GLUCOSE [id number] 18:30:00 Test Item Value Reference Range Interpretation Comments POC-GLUCOSE METER 176 mg/dL 70-110 H : TESTED A T [facility] 6720 (BEAKER) (test code = [facility] Nikki [facility], 1538) 59268: Power Equipment Mechanics Instructor/Techni logan ID = [id number] for MATHUR MURTAZA WEINER BONE AND/OR JOINT IMAGING, WHOLE [id number] 16:33:00FINAL REPORT PROCEDURE: BONE SCAN, WHOLE BODY CPT CODE: 08221 PAT CATION: Lung cancer PROTOCOL: 21.5 mCi [...] MDReport Verified Date/Time: 11/03/2019 16:33:30 Reading Location: [address] [place] [address] Reading Room NM bone scan whole [id number] 16:33:00Interface, External Ris In - 11/03/2019 4:35 PM CSTFINAL REPORT PROCEDURE: BONE SCAN, WHOLE BODY CPT CODE: 83445 INDICATION: Lung cancer PROTOCOL: 21.5 mCi of [...] MDReport Verified Date/Time: 11/03/2019 16:33:30 Reading Location: [address] Reading [facility] [id number] 16:18:00Addendum BeginsREPORT STATUS:A I have reviewed the [...] Miranda Verified Date/Time: 11/03/2019 16:18:17 Reading Location: [place] [address] Angio Body Reading RoomAddendum EndsFINAL REPORT CT [...] performed a few days ago by the Video Game Developer Radiologist. Refer to formal dictation for details, [...] ago. Refer to formal CT report by Video Game Developer Radiologist for details. Pertinentfindings include emphysematous changes [...] dictated regarding the non-vascular findings by the Video Game Developer Radiologist. Signed: Ricardo Broussard MDReport Verified Date/Time: 11/03/2019 07:39:57 CT, CTA, [id number] 16:18:00Addendum BeginsREPORT STATUS:A I have reviewed the [...] MDReport Verified Date/Time: 11/03/2019 16:18:17 Reading Location: [facility] P048 Angio Body Reading RoomAddendum EndsFINAL REPORT [...] performed a few days ago by the Video Game Developer Radiologist. Refer to formal dictation for details, [...] ago. Refer to formal CT report by Video Game Developer Radiologist for details. Pertinentfindings include emphysematous changes [...] dictated regarding the non-vascular findings by the Video Game Developer Radiologist. Signed: Ricardo Broussard MDReport Verified Date/Time: 11/03/2019 07:39:57 POCT-GLUCOSE [id number] 11:34:00 Test Item Value Reference Range Interpretation Comments POC-GLUCOSE METER 109 mg/dL 70-110 : TESTED A T [facility] 6720 ([employer]) (test code = [employer] [place], 1538) 22430: Power Equipment Mechanics Instructor/Techni logan ID = [id number] for MURTAZA MEDINA POCT-GLUCOSE [id number] 08:10:00 Test Item Value Reference Range Interpretation Comments POC-GLUCOSE METER 115 mg/dL 70-110 H : TESTED A T [facility] 6720 ([employer]) (test code = [employer] [place], 1538) 18956: Power Equipment Mechanics Instructor/Techni logan ID = [id number] for MURTAZA MEDINA CTA abdomen & [id number] 07:39:00Interface, External Ris In - 11/03/2019 4:20 [...] Mirandaeport Verified Date/Time: 11/03/2019 16:18:17 Reading Location: [place] [address] Angio Body Reading RoomAddendum EndsFINAL REPORT CT [...] ago. Refer to formal CT report by Video Game Developer Radiologist for details. Pertinent findings include emphysematous [...] dictated regarding the non-vascular findings by the Video Game Developer Radiologist. Signed: Ricardo Broussard [facility] ed Date/Time: 11/03/2019 07:39:57 [facility] 2019-11-03 07:39:00Interface, External Ris In - [...] Miranda Verified Date/Time: 11/03/2019 16:18:17 Reading Location: [place] [address] Angio Body Reading RoomAddendum EndsFINAL REPORT CT [...] mm valve). For reference purpose, per Anali cohen, recomm endation are as follows: 23mm [...] performed a few days ago by the Video Game Developer Radiologist. Refer to formal dictation for details, [...] ago. Refer to formal CT report by Video Game Developer Radiologist for details. Pertinent findings include emphysematous [...] dictated regarding the non-vascular findings by the Video Game Developer Radiologist. Signed: Ricardo Broussard MDReport Verified Date/Time: 11/03/2019 07:39:57 [facility] W/PLT COUNT & AUTO DIFFERENTIAL 2019-11-03 05:57:00 [...] 0-1 PERCENT (BEAKER) (test code = 2801) [id number] 05:13:00 Test Item Value Reference Range Interpretation Comments PHOSPHORUS (BEAKER) (test code = 3.4 mg/dL 2.3-4.7 604) Power Equipment Mechanics Instructor ID - PIAYA [id number] 05:13:00 Test Item Value Reference Range Interpretation Comments MAGNESIUM (BEAKER) (test code = 2.0 mg/dL 1.6-2.6 627) Power Equipment Mechanics Instructor ID - PIAYA LCOMPREHENSIVE METABOLIC [id number] 05:13:00 Test Item Value Reference Range Interpretation [...] S NOT APPLICABLE FOR DIALYSIS PATIEN TS. Power Equipment Mechanics Instructor ID - PIAYA LPOCT-GLUCOSE [id number] 22:07:00 Test Item Value Reference Range Interpretation Comments POC-GLUCOSE METER 157 mg/dL 70-110 H : Notified RN/MD: (MIKE) (test code = TESTED AT [facility] 6720 1538) [facility], [address]: Power Equipment Mechanics Instructor/Techni logan ID = [id number] for CHEN LI Carotid doppler [id number] 18:11:58Ejection FractionSLEH ECHO HEARTLAB MKCKESSON CPACSRight Impression1. [...] of Study 11/02/2019 Age 64 Visit Number [id number] Gender Female Accession Number [id number] Date of 1955 Referring Minna Cadet Room Number C634 Physician Rodrigo Gas Main Fitter Helper Amy De La Paz Interpreting Christa Carter [...] the left side. - Additional Measurements:ICAPSV/CCAPSV 0.79.ICAEDV/CCAEDV 0.95.[facility] POCT-GLUCOSE [id number] 17:42:00 Test Item Value Reference Range Interpretation Comments POC-GLUCOSE METER 111 mg/dL 70-110 H : [facility] (test code = [facility], 1538) 56625: Power Equipment Mechanics Instructor/Techni logan ID = [id number] for YULIA OJEDA POCT-GLUCOSE [id number] 13:32:00 Test Item Value Reference Range Interpretation Comments POC-GLUCOSE METER 125 mg/dL 70-110 H : [facility] (BEAKER) (test code = [facility], 1538) 01259: Power Equipment Mechanics Instructor/Techni logan ID = [id number] for YULIA OJEDA POCT-GLUCOSE [id number] 13:17:00 Test Item Value Reference Range Interpretation Comments POC-GLUCOSE METER 123 mg/dL 70-110 H : Notified RN/MD: ([facility]) (test code = TESTED AT [place] [id number] 1538) [facility], [address]: Power Equipment Mechanics Instructor/Techni logan ID = [id number] for NADIA LANTIGUA, COSHA POCT-GLUCOSE [id number] 10:19:00 Test Item Value Reference Range Interpretation Comments POC-GLUCOSE METER 116 mg/dL 70-110 H : [facility] (BEAKER[facility] (test code = [facility], 1538) 13565: Power Equipment Mechanics Instructor/Techni logan ID = [id number] for NADIA OMAS, COSHA [id number] 05:40:00 Test Item Value Reference Range Interpretation Comments PHOSPHORUS (BEAKER) (test code = 3.0 mg/dL 2.3-4.7 604) Power Equipment Mechanics Instructor ID - RAMIRO [id number] 05:40:00 Test Item Value Reference Range Interpretation Comments MAGNESIUM (BEAKER) (test code = 2.1 mg/dL 1.6-2.6 627) Power Equipment Mechanics Instructor ID - RAMIRO WCOMPREHENSIVE METABOLIC [id number] 05:40:00 Test Item Value Reference Range Interpretation [...] S NOT APPLICABLE FOR DIALYSIS PATIEN TS. Power Equipment Mechanics Instructor ID - RAMIRO WCBC W/PLT COUNT & AUTO [id number] 05:22:00 Test Item Value Reference Range Interpretation [...] PERCENT (BEAKER) (test code = 2801) POCT-GLUCOSE [id number] 22:30:00 Test Item Value Reference Range Interpretation Comments POC-GLUCOSE METER 173 mg/dL 70-110 H : TESTED A T [facility] 6720 (BEAKER) (test code = [place], 1538) [address]: Power Equipment Mechanics Instructor/Techni logan ID = [id number] for BIBIANA ACOSTA Pulmonary Funct Lab [id number] 17:02:00Leny Almonte, SUPERVISOR, INSTALLER TECHNICIAN 11/01/2019 5:45 [facility] PFT CHARTING REPORT Infection Control/Hand Hygiene procedures followed throughout the encounter with patient: YesPatient Identification Method: Patient name verified on armband, and Medical record on armband, Is the order complete?: Yes Account ID#: [id number] Name: Quiana Valladares Birthdate: 1955 Age: 64 [...] patient released from the lab without adverse outcome.[facility]2D Echo W/Doppler(CW/PW/Color)2019-11-01 16:21:59Ejection FractionSLEH ECHO HEARTLAB MKCKESSON CPACSInterface, External Ris In - 11/01/2019 4:22 PM CSTTransthoracic Echocardiography Report (TTE) Demographics Patient Name QUIANA VALLADARES Date of Study 11/01/2019 KARINA Gender Female Visit Number [id number] Race Room Number C634-2 Number Date of 1955 Referring Physician Helio Buitrago MD Age 64 year(s) Gas Main Fitter Helper Delmar Gotti [facility] Pressure Controller Asaf Rankin Interpreting Physician JONO Deluca Procedure [...] TR Velocity: 2.39 m/s TRGradient: 22.84 mmHgCHI Pomerado HospitalCT-GLUCOSE [id number] 13:31:00 Test Item Value Reference Range Interpretation Comments POC-GLUCOSE METER 187 mg/dL 70-110 H : Notified RN/MD: ([facility] (test code = TESTED AT [place] [address] 1538) [facility], [address]: Power Equipment Mechanics Instructor/Techni logan ID = [id number] for MARCO RIVERA, [id number] 06:53:00 Test Item Value Reference Range Interpretation Comments ABO Grouping (test code = 2588) O Rh Factor (test code = 2589) POS [facility]CT[facility] [id number] 06:37:00 Test Item Value Reference Range Interpretation Comments POC-GLUCOSE METER 130 mg/dL 70-110 H : TESTED A T [place] [address] ([facility]) (test code = LORELEI Jordan [facility], 1538) [address]: Power Equipment Mechanics Instructor/Techni logan ID = [id number] for ISHAN JENSEN [id number] 06:06:00 Test Item Value Reference Range Interpretation Comments PHOSPHORUS ([facility]) (test code = 3.8 mg/dL 2.3-4.7 604) Power Equipment Mechanics Instructor ID - RAMIRO [id number] 06:06:00 Test Item Value Reference Range Interpretation Comments MAGNESIUM ([facility]) (test code = 2.1 mg/dL 1.6-2.6 627) Power Equipment Mechanics Instructor ID - RAMIRO WCOMPREHENSIVE METABOLIC [id number] 06:06:00 Test Item Value Reference Range Interpretation [...] S NOT APPLICABLE FOR DIALYSIS PATIEN TS. Power Equipment Mechanics Instructor ID - RAMIRO WPROTHROMBIN TIME/[id number] 06:00:00 Test Item Value Reference Range Interpretation [...] mechanical heart valves.CBC W/PLT COUNT & AUTO [id number] 05:30:00 Test Item Value Reference Range Interpretation [...] PERCENT (BEAKER) (test code = 2801) POCT-GLUCOSE [id number] 00:13:00 Test Item Value Reference Range Interpretation Comments POC-GLUCOSE METER 148 mg/dL 70-110 H : TESTED A T [facility] 6720 (BEAKER) (test code = [facility], [facility]) [address]: Power Equipment Mechanics Instructor/Techni logan ID = [id number] for PE ISIAH, ISHAN POCT-GLUCOSE [id number] 22:12:00 Test Item Value Reference Range Interpretation Comments POC-GLUCOSE METER 140 mg/dL 70-110 H : TESTED A T [facility] 6720 (BEAKER) (test code = [facility], [facility]) [address]: Power Equipment Mechanics Instructor/Techni logan ID = [id number] for PE ISIAH, ISHAN POCT-GLUCOSE [id number] 17:48:00 Test Item Value Reference Range Interpretation Comments POC-GLUCOSE METER 136 mg/dL 70-110 H : TESTED A T [facility] 6720 (BEAKER) (test code = [facility], [facility]) [address]: Power Equipment Mechanics Instructor/Techni logan ID = [id number] for DA VIS, KEYAIRA POCT-GLUCOSE [id number] 08:06:00 Test Item Value Reference Range Interpretation Comments POC-GLUCOSE METER 186 mg/dL 70-110 H : TESTED A T [facility] 6720 (BEAKER) (test code = [facility], [facility]) [address]72: Power Equipment Mechanics Instructor/Techni logan ID = [id number] for DA VIS, KEYAIRA POCT-GLUCOSE [id number] 06:43:00 Test Item Value Reference Range Interpretation Comments POC-GLUCOSE METER 118 mg/dL 70-110 H : TESTED A T [facility] 6720 (BEAKER) (test code = [facility], [facility]) [address]: Power Equipment Mechanics Instructor/Techni logan ID = [id number] for MESERET IVORY CT, CHEST WITH IV CONTRAST- PE TEST [id number] 18:23:00Reason for exam:- >chest painWhat is the [...] [facility] MDReport Verified Date/Time:10/30/2019 18:23:35 Reading Location: [facility] B1 C013Y CT Body Reading Room CT [...] MDReport Verified Date/Time: 10/30/2019 18:23:35 Reading Location: [facility] C013Y CT [facility]BNP)2019-10-30 16:35:00 Test Item Value Reference Range Interpretation Comments B-TYPE NATRIURETIC PEPTIDE (BEAKER) 360 pg/mL 0-100 H (test code = 700) Power Equipment Mechanics Instructor ID - BSTroponin [id number] 16:34:00 Test Item Value Reference Range Interpretation Comments Troponin I (test code = <0.01 0-0.03 12135-0) JANETTE (test code = JANETTE) Troponin I [...] BS Lab Interpretation (test Normal code = 26439-4) [facility] [id number] 16:34:00 Test Item Value Reference Range Interpretation [...] failure, acidosis, acute neurological disease, and persistent tachyarrhythmia.Power Equipment Mechanics Instructor ID - [id number] 16:28:00 Test Item Value Reference Range Interpretation Comments MAGNESIUM (BEAKER) (test code = 1.9 mg/dL 1.6-2.6 627) Power Equipment Mechanics Instructor ID - BSBASIC METABOLIC [id number] 16:28:00 Test Item Value Reference Range Interpretation [...] S NOT APPLICABLE FOR DIALYSIS PATIEN TS. Power Equipment Mechanics Instructor ID - [id number] 16:26:00 Test Item Value Reference Range Interpretation [...] mechanical heart valves.CBC W/PLT COUNT & AUTO [id number] 16:21:00 Test Item Value Reference Range Interpretation [...] = 2801) RAD, CHEST, 1 VIEW, NON [id number] 15:21:00Reason for exam:->chest pain FINAL REPORT INDICATION: chest pain COMPARISON: None TECHNIQUE: AP and lateral view of the chest. FINDINGS: Lungs and pleura: Clear lungs. No effusion.Heart and mediastinum: Normal heart size. Unremarkable mediastinal contours.Osseous structures: No acute abnormality.Other: Tip overlies the SVC. IMPRESSION: No acute intrathoracic abnormality. Signed: Arlyn Persaud MDReport Verified Date/Time: 10/30/2019 15:21:39 Reading Location: [facility] Radiology Reading Room
[2020-04-01] MEDS ORDERED: NA CHLORIDE 0.9% 1,000 ML ONE ×3 (20:19→23:49)
--- NOTE | 2020-04-01 20:30 | RAD REPORT ---
EXAM DESCRIPTION: ROSALBADeet Single View04/01/2020 8:14 pm CLINICAL HISTORY: sob COMPARISON: September 2019 FINDINGS: Right upper lobe mass appears mildly enlarged Left lung clear of acute infiltrate Heart is normal size A central venous catheter has its tip in superior vena cava
--- NOTE | 2020-04-01 20:35 | RAD REPORT ---
EXAM DESCRIPTION: CT - Head Brain Wo Cont - 04/01/2020 8:14 pm CLINICAL HISTORY: Dizziness COMPARISON: November 2019 TECHNIQUE: Computed axial tomography of the head was obtained. IV contrast was not requested. All CT scans are performed using dose optimization technique as appropriate and may include automated exposure control or mA/KV adjustment according to patient size. FINDINGS: An intracranial bleed is not seen . The ventricles are normal in caliber. No extra-axial fluid collection is noted. 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 . Mild low-density within deep and subcortical white matter probably ischemic changes secondary to smal l vessel disease Fluid within the sinuses/ mastoids is not seen. IMPRESSION: No acute intracranial abnormality is seen. If patient's symptoms persist MRI of the bra in would be recommended.
[2020-04-01 20:49] LABS: Absolute Lymphocytes (CBC) 0.6 K/uL (0.7-4.9); Hematocrit 30.8 % (36.0-45.0); Lymphocytes % 5.3 % (15.3-44.8); MPV 7.8 fL (7.6-11.3); RBC Red Blood Cell Count 3.58 M/uL (3.86-4.86)
[2020-04-01 20:52] LABS: Albumin 2.5 g/dL (3.4-5.0); Bilirubin Direct 0.3 mg/dL (0-0.2); Bilirubin Total 0.8 mg/dL (0.2-1.0); Potassium 3.4 mmol/L (3.5-5.1); Protein, Total 7.8 g/dL (6.4-8.2)
[2020-04-01 21:06] LABS: Protime INR 0.97
[2020-04-01 21:19] LABS: Anisocytosis 2+; Blood Morphology Comment NOTED (NOT SEEN); Platelet Estimate ADEQ
--- NOTE | 2020-04-01 23:12 | ER ---
Nurse's Notes [facility] Name: Lisa Acosta Age: 64 yrs Sex: Female : 1955 Arrival Date: 04/01/2020 Time: 19:29 Bed Treatment Private MD: Diagnosis: Hypotension, unspecified;Left sided colitis with rectal bleeding Presentation: 04/01 19:32 Chief complaint: Patient states: "I don't feel good. I feel tired, Can't stay awake" ca1 SOB at rest. Denies cough and fever. Denies N/V. Reports diarrhea. Coronavirus screen: Client denies travel out of the [place] in the last 14 days. diarrhea, fatigue, shortness of breath, Client presents with at least one sign or symptom that may indicate coronavirus-19. Standard/surgical mask placed on the client. Provider contacted for isolation considerations. Ebola Screen: Patient negative for fever greater than or equal to 101.5 degrees Fahrenheit, and additional compatible Ebola Virus Disease symptoms Patient denies exposure to infectious person. Patient denies travel to an Ebola-affected area in the 21 days before illness onset. No symptoms or risks identified at this time. Initial Sepsis Screen: Does the patient meet any 2 criteria? No. Patient's initial sepsis screen is negative. Does the patient have a suspected source of infection? No. Patient's initial sepsis screen is negative. Risk Assessment: Do you want to hurt yourself or someone else? Patient reports no desire to harm self or others. Onset of symptoms was April 01, 2020. 19:32 Method Of Arrival: Wheelchair ca1 19:32 Acuity: KIRAN 3 ca1 19:43 Acuity: KIRAN 2 ca1 Historical: - Allergies: 19:35 Bactrim DS; ca1 19:35 Sulfa (Sulfonamide Antibiotics); ca1 - Home Meds: 23:52 aspirin 81 mg Oral chew 1 tab once daily [Active]; metformin 500 mg Oral tab 2 times mg2 per day [Active]; - PMHx: 19:35 36 radiations and 15 months of chemo after colon cancer.; colon cancer (February 10, 2016); ca1 Diabetes - NIDDM; Hypertension; - PSHx: 19:35 Hysterectomy; Hernia repair; Heart Valve replacement; ca1 - Immunization history:: Adult Immunizations up to date. - Social history:: Smoking status: Patient reports the use of cigarette tobacco products, smokes one pack cigarettes per day. - Family history:: not pertinent. - Hospitalizations: : No recent hospitalization is reported. Screenin:13 Abuse screen: Denies threats or abuse. Denies injuries from another. Nutritional mg2 screening: No deficits noted. Tuberculosis screening: No symptoms or risk factors identified. Fall Risk IV access (20 points). Assessment: 20:05 General: Appears in no apparent distress. comfortable, Behavior is calm, cooperative. mg2 Pain: Denies pain. Neuro: Level of Consciousness is awake, obeys commands, lethargic, Oriented to person, place, time, situation. Cardiovascular: Capillary refill < 3 seconds Patient's skin is warm and dry. 20:05 Respiratory: Airway is patent Respiratory effort is even, unlabored, Respiratory mg2 pattern is regular, symmetrical. GI: No signs and/or symptoms were reported involving the gastrointestinal system. : No signs and/or symptoms were reported regarding the genitourinary system. EENT: No signs and/or symptoms were reported regarding the EENT system. Derm: Skin old wound in the left arm with band aids. Musculoskeletal: Circulation, motion, and sensation intact. Capillary refill < 3 seconds. 20:14 Reassessment: sent to CT Scan via stretcher. mg2 22:11 Reassessment: updated- [id number]. mg2 23:06 Reassessment: Patient appears in no apparent distress at this time. Patient and/or mg2 family updated on plan of care and expected duration. Pain level reassessed. Patient is alert, oriented x 3, equal unlabored respirations, skin warm/dry/pink. 23:47 Reassessment: seen by Dr Hernandez-hospitalist and patient agreed to be hospitalized. mg2 04/02 00:32 Reassessment: patient's blood pressure is in low side. dr Hernandez informed and ordered mg2 to give 1 L NS bolus. 01:26 Reassessment: informed Dr Hernandez about the patient's low blood pressure and he agreed mg2 to shift the patient to the floor. patient's MAP is above 65. 03:10 Reassessment: debra Matute RN reports pt transported back to ED for ER hold sg status due to hypotension, ordering Levophed at this time, pt to be ER hold. 03:28 Reassessment: notified pt ER hold VS at this time. sg Vital Signs: 04/01 19:32 BP 109 / 96; Pulse 92; Resp 18 S; Temp 97.9(O); Pulse Ox 99% on R/A; Weight 56.7 kg ca1 (R); Height 5 ft. 4 in. (162.56 cm) (R); 19:43 BP 89 / 65; ca1 20:19 BP 93 / 63; Pulse 79; Resp 18; Pulse Ox 99% on R/A; mg2 21:22 BP 89 / 61; Pulse 87; Resp 18; Pulse Ox 100% on R/A; mg2 22:30 BP 96 / 70; Pulse 94; Resp 18; Pulse Ox 99% on R/A; mg2 23:06 BP 99 / 48; Pulse 94; Resp 18; Pulse Ox 97% on R/A; mg2 04/02 00:44 BP 83 / 60; Pulse 100; Resp 18; Pulse Ox 100% on 3 lpm NC; mg2 01:26 BP 88 / 68; Pulse 98; Resp 18; Pulse Ox 100% on 3 lpm NC; mg2 03:20 BP 70 / 48; Pulse 92; Resp 17; Pulse Ox 100% on 3 lpm NC; sg 04:04 BP 97 / 64; Pulse 90; Resp 16; Pulse Ox 100% on 3 lpm NC; sg 04/01 19:32 Body Mass Index 21.46 (56.70 kg, 162.56 cm) ca1 ED Course: 04/01 19:29 Patient arrived in ED. ca1 19:35 Triage completed. ca1 19:35 Arm band placed on right wrist. ca1 19:49 Gideon Cobos MD is Attending Physician. rn 19:52 Kimani Alamo, TANI is Primary Nurse. mg2 20:13 XRAY Chest (1 view) In Process Unspecified. EDMS 20:13 Inserted saline lock: 20 gauge in right forearm, using aseptic technique. Blood ds4 collected. by FADI Leonard tech. 20:14 CT Head Brain wo Cont In Process Unspecified. EDMS 20:14 Patient has correct armband on for positive identification. equipment monitor phototypesetting on. Pulse mg2 ox on. NIBP on. Door closed. Warm blanket given. 20:14 Inserted saline lock: 20 gauge in left antecubital area, using aseptic technique. Blood mg2 collected. 21:22 Served as a user experience architect during rectal exam. Patient admitted, IV remains in place. mg2 22:19 CT Abd/Pelvis - IV Contrast Only In Process Unspecified. EDMS 23:09 Urine Culture Sent. ds4 23:09 Urine Microscopic Only Sent. ds4 23:10 Jonathan Hernandez is Hospitalizing Provider. rn 23:30 Urine Microscopic Only Sent. ds4 23:30 Urine Culture Sent. ds4 23:31 Urine Dipstick--Ancillary (enter results) Sent. ds4 04/02 01:30 Inserted saline lock: 20 gauge in left hand, using aseptic technique. mg2 02:58 Primary Nurse role handed off by Kimani Alamo RN sg Administered Medications: 04/01 20:20 Drug: NS 0.9% 1000 ml Route: IV; Rate: 1000 ml; Site: right forearm; mg2 04/02 00:45 Follow up: Response: No adverse reaction; IV Status: Completed infusion; IV Intake: mg2 1000ml 04/01 21:21 Drug: NS 0.9% 1000 ml Route: IV; Rate: 1000 ml; Site: right forearm; mg2 23:47 Follow up: Response: No adverse reaction; IV Status: Completed infusion; IV Intake: mg2 1000ml 23:28 Drug: Zofran (Ondansetron) 4 mg Route: IVP; Site: right antecubital; mg2 04/02 00:44 Follow up: Response: No adverse reaction mg2 04/01 23:30 Drug: Flagyl 500 mg Volume: 100 ml; Route: IVPB; Rate: 200 ml/hr; Infused Over: 30 mg2 mins; Site: right antecubital; 04/02 00:45 Follow up: Response: No adverse reaction; IV Status: Completed infusion; IV Intake: mg2 200ml 04/01 23:30 Drug: Tylenol 650 mg Route: PO; mg2 04/02 00:45 Follow up: Response: No adverse reaction mg2 04/01 23:35 Drug: Cipro 400 mg Volume: 200 ml; Route: IVPB; Infused Over: 60 mins; Site: right mg2 antecubital; 04/02 00:45 Follow up: Response: No adverse reaction; IV Status: Completed infusion; IV Intake: mg2 100ml 04/01 23:46 Drug: NS 0.9% 1000 ml Route: IV; Rate: 100 ml/hr; Site: right antecubital; mg2 04/02 00:45 Follow up: Response: No adverse reaction; IV Status: Completed infusion; IV Intake: mg2 1000ml 00:33 Drug: NS 0.9% 500 ml Route: IV; Rate: bolus; Site: right antecubital; mg2 01:29 Follow up: Response: No adverse reaction; IV Status: Completed infusion; IV Intake: mg2 500ml 00:44 Drug: NS 0.9% 500 ml Route: IV; Rate: bolus; Site: right antecubital; mg2 01:29 Follow up: Response: No adverse reaction; IV Status: Completed infusion; IV Intake: mg2 500ml Point of Care Testing: Guaiac: 04/01 21:21 Stool Guaiac: Positive; Stool Hemoccult Control: Pass; rn 21:22 Stool Guaiac: Positive; Stool Hemoccult Control: Pass; mg2 Intake: 23:47 IV: 1000ml; Total: 1000ml. mg2 04/02 00:45 IV: 1000ml; Total: 2000ml. mg2 00:45 IV: 200ml; Total: 2200ml. mg2 00:45 IV: 100ml; Total: 2300ml. mg2 00:45 IV: 1000ml; Total: 3300ml. mg2 01:29 IV: 500ml; Total: 3800ml. mg2 01:29 IV: 500ml; Total: 4300ml. mg2 Outcome: 04/01 23:11 Decision to Hospitalize by Provider. rn 04/02 01:27 Admitted to Med/surg accompanied by tech, via wheelchair, room 228, with oxygen, with mg2 chart, Report called to TANI Marion Condition: stable Instructed on the need for admit, Demonstrated understanding of instructions. 01:35 Patient left the ED. mg2 07:40 Admitted to ICU accompanied by nurse, via stretcher, room treatment room in ED, with mg2 oxygen, on monitor, with chart, Report called to Ma. Swapna RN 07:40 Condition: stable 07:40 Instructed on the need for admit, Demonstrated understanding of instructions. Signatures: Dispatcher [employer] EDMS Manfred Breen RN TANI Gideon Cobos MD MD rn Calderon, Audri, RN RN aa5 Horacio Mcmahan4 Kimani Alamo RN RN mg2 Katelynn Chapman RN RN ca1 Corrections: (The following items were deleted from the chart) 04/01 19:47 19:32 Chief complaint: Patient states: "I don't feel good. I feel tired, Can't stay ca1 awake" SOB at rest. Denies cough and fever. Denies N/V. Reports diarrhea ca1 20:32 20:13 Inserted saline lock: 20 gauge in right antecubital area, using aseptic ds4 technique. Blood collected. by Horacio, extractions technologist mg2 21:22 20:13 No provider procedures requiring assistance completed. mg2 mg2 04/02 18:58 18:55 Patient left the ED. aa5 aa5
--- NOTE | 2020-04-01 23:13 | EDPHYS ---
Physician Documentation [facility] Name: Lisa Acosta Age: 64 yrs Sex: Female : 1955 Arrival Date: 04/01/2020 Time: 19:29 Bed Treatment Private MD: ED Physician Gideon Cobos HPI: 04/01 19:58 This 64 yrs old Female presents to ER via Wheelchair with complaints of rn dizziness, weakness. 19:58 The patient presents with dizziness, feeling faint, generalized weakness. Onset: The rn symptoms/episode began/occurred 2 week(s) ago. Modifying factors: The symptoms are alleviated by nothing, the symptoms are aggravated by standing up, changing position. Severity of symptoms: At their worst the symptoms were moderate in the emergency department the symptoms are unchanged. It is unknown whether or not the patient has had similar symptoms in the past. Reports 2 weeks of generalized weakness, fatigue, dizziness. Denies sob or chest pain/abd pain/vomiting/diarrhea. NO head injury recently. No fever. + smoker and chronic cough. No urinary symptoms. No longer getting chemo/radiation. . Historical: - Allergies: 19:35 Bactrim DS; ca1 19:35 Sulfa (Sulfonamide Antibiotics); ca1 - Home Meds: 23:52 aspirin 81 mg Oral chew 1 tab once daily [Active]; metformin 500 mg Oral tab 2 times mg2 per day [Active]; - PMHx: 19:35 36 radiations and 15 months of chemo after colon cancer.; colon cancer (February 10, 2016); ca1 Diabetes - NIDDM; Hypertension; - PSHx: 19:35 Hysterectomy; Hernia repair; Heart Valve replacement; ca1 - Immunization history:: Adult Immunizations up to date. - Social history:: Smoking status: Patient reports the use of cigarette tobacco products, smokes one pack cigarettes per day. - Family history:: not pertinent. - Hospitalizations: : No recent hospitalization is reported. ROS: 19:58 Constitutional: Negative for fever, chills, and weight loss, Eyes: Negative for injury, rn pain, redness, and discharge, Neck: Negative for injury, pain, and swelling, Cardiovascular: Negative for chest pain, palpitations, and edema, Respiratory: Negative for shortness of breath,wheezing, and pleuritic chest pain, Abdomen/GI: Negative for abdominal pain, nausea, vomiting, diarrhea, and constipation, Back: Negative for injury and pain, : Negative for injury, bleeding, discharge, and swelling, MS/Extremity: Negative for injury and deformity, Skin: Negative for injury, rash, and discoloration, Neuro: Negative for headache, numbness, tingling, and seizure. Exam: 19:58 Constitutional: Thin female, no acute distress, appears sleepy but awake Head/Face: rn Normocephalic, atraumatic. ENT: dry MM Neck: Trachea midline, no masses palpated, and no cervical lymphadenopathy. Supple, full range of motion without nuchal rigidity, or vertebral point tenderness. No Meningismus. Cardiovascular: Regular rate and rhythm. No pulse deficits. Respiratory: No increased work of breathing, no retractions or nasal flaring. Abdomen/GI: soft, non-tender Skin: + linear petechial lesions bilateral lower extremities MS/ Extremity: Pulses equal, no cyanosis. Neurovascular intact. Full, normal range of motion. Equal circumference. Neuro: Awake and alert, GCS 15, oriented to person, place, time, and situation. Cranial nerves II-XII grossly intact. Motor strength 4/5 in all extremities. Sensory grossly intact. 20:39 ECG was reviewed by the Attending Physician. rn Vital Signs: 19:32 BP 109 / 96; Pulse 92; Resp 18 S; Temp 97.9(O); Pulse Ox 99% on R/A; Weight 56.7 kg ca1 (R); Height 5 ft. 4 in. (162.56 cm) (R); 19:43 BP 89 / 65; ca1 20:19 BP 93 / 63; Pulse 79; Resp 18; Pulse Ox 99% on R/A; mg2 21:22 BP 89 / 61; Pulse 87; Resp 18; Pulse Ox 100% on R/A; mg2 22:30 BP 96 / 70; Pulse 94; Resp 18; Pulse Ox 99% on R/A; mg2 23:06 BP 99 / 48; Pulse 94; Resp 18; Pulse Ox 97% on R/A; mg2 08/04 00:44 BP 83 / 60; Pulse 100; Resp 18; Pulse Ox 100% on 3 lpm NC; mg2 01:26 BP 88 / 68; Pulse 98; Resp 18; Pulse Ox 100% on 3 lpm NC; mg2 03:20 BP 70 / 48; Pulse 92; Resp 17; Pulse Ox 100% on 3 lpm NC; sg 04:04 BP 97 / 64; Pulse 90; Resp 16; Pulse Ox 100% on 3 lpm NC; sg 04/01 19:32 Body Mass Index 21.46 (56.70 kg, 162.56 cm) ca1 MDM: 04/01 19:49 Patient medically screened. rn 23:09 Differential diagnosis: generalized weakness, hypovolemia, idiopathic dizziness, rn sepsis, dehydration, colitis, proctitis, recurrent cancer. Data reviewed: vital signs, nurses notes, lab test result(s), radiologic studies, CT scan, plain films, and as a result, I will admit patient. Counseling: I had a detailed discussion with the patient and/or guardian regarding: the historical points, exam findings, and any diagnostic results supporting the discharge/admit diagnosis, lab results, radiology results, the need for further work-up and treatment in the hospital. Admission orders: after a detailed discussion of the patient's condition and case, the admit orders are written by me. ED course: Pt with possible infectious process in abdomen/rectum vs recurrent colon cancer, + mucous stool + for blood on exam, will admit for abx and GI consultation. BP improving with fluids, admitted to Dr. Hernandez. . 04/01 19:56 Order name: Basic Metabolic Panel; Complete Time: 21:10 rn 04/01 19:56 Order name: CBC with Diff; Complete Time: 22:21 rn 04/01 19:56 Order name: Hepatic Function; Complete Time: 21:10 rn 04/01 19:56 Order name: Lipase; Complete Time: 21:10 rn 04/01 19:56 Order name: Type And Screen; Complete Time: 23:08 rn 04/01 19:56 Order name: Protime (+inr); Complete Time: 21:10 rn 04/01 19:56 Order name: Ptt, Activated; Complete Time: 21:10 rn 04/01 19:56 Order name: Procalcitonin; Complete Time: 22:21 rn 04/01 19:56 Order name: Blood Culture Adult (2) rn 04/01 19:56 Order name: Lactate; Complete Time: 22:21 rn 04/01 19:57 Order name: AMMONIA; Complete Time: 21:10 rn 04/01 20:55 Order name: Manual Differential; Complete Time: 22:21 EDMS 04/01 23:08 Order name: Urine Microscopic Only; Complete Time: 00:24 ds4 04/01 23:08 Order name: Urine Culture ds4 04/01 23:09 Order name: Urine Dipstick--Ancillary (enter results); Complete Time: 00:24 ds4 04/02 00:32 Order name: Lactate Sepsis 2 HR Follow-up; Complete Time: 00:32 EDMS 04/02 02:59 Order name: Glucose, Ancillary Testing; Complete Time: 04:01 EDMS 04/02 04:25 Order name: Lactate EDMS 04/02 04:30 Order name: Thyroid Stimulating Hormone EDMS 04/02 06:59 Order name: CBC with Automated Diff EDMS 04/02 07:08 Order name: Basic Metabolic Panel EDMS 04/02 07:08 Order name: Phosphorus EDMS 04/02 07:08 Order name: Magnesium EDMS 04/02 08:11 Order name: Glucose, Ancillary Testing EDMS 04/02 10:37 Order name: CBC Smear Scan EDMS 04/02 11:35 Order name: Glucose, Ancillary Testing EDMS 04/02 14:34 Order name: Gram Stain--Aerobic Bottle EDMS 04/02 14:34 Order name: Gram Stain--Anaerobic Bottle EDMS 04/02 14:37 Order name: Gram Stain--Aerobic Bottle EDMS 04/02 14:37 Order name: Gram Stain--Anaerobic Bottle EDMS 04/01 19:56 Order name: IV Saline Lock; Complete Time: 20:12 rn 04/01 19:56 Order name: Labs collected and sent; Complete Time: 20:12 rn 04/01 19:56 Order name: XRAY Chest (1 view); Complete Time: 20:37 rn /03 19:56 Order name: EKG; Complete Time: 19:57 rn 04/01 19:56 Order name: EKG - Nurse/Tech; Complete Time: 20:32 rn /03 20:01 Order name: CT Head Brain wo Cont; Complete Time: 20:37 rn /03 21:18 Order name: CT Abd/Pelvis - IV Contrast Only rn 04/02 00:18 Order name: CONS Physician Consult EDMS 04/02 16:47 Order name: Glucose, Ancillary Testing EDMS EC:39 Rate is 78 beats/min. Rhythm is regular. QRS [place] is Normal. [place] interval is normal. QRS rn interval is normal. QT interval is normal. No Q waves. T waves are Normal. No ST changes noted. Clinical impression: Normal ECG. Interpreted by me. Reviewed by me. Administered Medications: 20:20 Drug: NS 0.9% 1000 ml Route: IV; Rate: 1000 ml; Site: right forearm; mg2 04/02 00:45 Follow up: Response: No adverse reaction; IV Status: Completed infusion; IV Intake: mg2 1000ml 04/01 21:21 Drug: NS 0.9% 1000 ml Route: IV; Rate: 1000 ml; Site: right forearm; mg2 23:47 Follow up: Response: No adverse reaction; IV Status: Completed infusion; IV Intake: mg2 1000ml 23:28 Drug: Zofran (Ondansetron) 4 mg Route: IVP; Site: right antecubital; mg2 04/02 00:44 Follow up: Response: No adverse reaction mg2 04/01 23:30 Drug: Flagyl 500 mg Volume: 100 ml; Route: IVPB; Rate: 200 ml/hr; Infused Over: 30 mg2 mins; Site: right antecubital; 04/02 00:45 Follow up: Response: No adverse reaction; IV Status: Completed infusion; IV Intake: mg2 200ml 04/01 23:30 Drug: Tylenol 650 mg Route: PO; mg2 04/02 00:45 Follow up: Response: No adverse reaction mg2 04/01 23:35 Drug: Cipro 400 mg Volume: 200 ml; Route: IVPB; Infused Over: 60 mins; Site: right mg2 antecubital; 04/02 00:45 Follow up: Response: No adverse reaction; IV Status: Completed infusion; IV Intake: mg2 100ml 04/01 23:46 Drug: NS 0.9% 1000 ml Route: IV; Rate: 100 ml/hr; Site: right antecubital; mg2 04/02 00:45 Follow up: Response: No adverse reaction; IV Status: Completed infusion; IV Intake: mg2 1000ml 00:33 Drug: NS 0.9% 500 ml Route: IV; Rate: bolus; Site: right antecubital; mg2 01:29 Follow up: Response: No adverse reaction; IV Status: Completed infusion; IV Intake: mg2 500ml 00:44 Drug: NS 0.9% 500 ml Route: IV; Rate: bolus; Site: right antecubital; mg2 01:29 Follow up: Response: No adverse reaction; IV Status: Completed infusion; IV Intake: mg2 500ml Point of Care Testing: Guaiac: 04/01 21:21 Stool Guaiac: Positive; Stool Hemoccult Control: Pass; rn 21:22 Stool Guaiac: Positive; Stool Hemoccult Control: Pass; mg2 Disposition: 04/01/20 23:11 Hospitalization ordered by Jonathan Hernandez for Inpatient Admission. Preliminary diagnosis are Hypotension, unspecified, Left sided colitis with rectal bleeding. - Bed requested for [facility] ER HOLD. - Status is Inpatient Admission. aa5 - Condition is Stable. - Problem is new. - Symptoms have improved. Signatures: Dispatcher [employer] EDMS Juju Mercado RN TANI Gideon Cobos MD MD rn Calderon, Audri RN TANI aa5 Kimani Alamo RN RN mg2 Katelynn Chapman RN TANI ca1 Corrections: (The following items were deleted from the chart) 23:36 23:11 Hospitalization Ordered by Jonathan Hernandez for Inpatient Admission. Preliminary mw diagnosis is Hypotension, unspecified; Left sided colitis with rectal bleeding. Bed requested for Telemetry/MedSurg (Inpatient). Status is Inpatient Admission. Condition is Stable. Problem is new. Symptoms have improved. rn 04/02 01:35 08 23:36 04/01/2020 23:11 Hospitalization Ordered by Jonathan Hernandez for Inpatient mg2 Admission. Preliminary diagnosis is Hypotension, unspecified; Left sided colitis with rectal bleeding. Bed requested for Telemetry/MedSurg (Inpatient). Status is Inpatient Admission. Condition is Stable. Problem is new. Symptoms have improved. mw 04/02 03:07 01:35 04/01/2020 23:11 Hospitalization Ordered by Jonathan Hernandez for Inpatient mw Admission. Preliminary diagnosis is Hypotension, unspecified; Left sided colitis with rectal bleeding. Bed requested for Telemetry/MedSurg (Inpatient). Status is Inpatient Admission. Condition is Stable. Problem is new. Symptoms have improved. mg2 18:55 03:07 04/01/2020 23:11 Hospitalization Ordered by Jonathan Hernandez for Inpatient aa5 Admission. Preliminary diagnosis is Hypotension, unspecified; Left sided colitis with rectal bleeding. Bed requested for [facility] ER HOLD. Status is Inpatient Admission. Condition is Stable. Problem is new. Symptoms have improved. mw
[2020-04-01] MEDS ORDERED: ACETAMINOPHEN 325 MG TABLET ONE (23:28)
[2020-04-01] MEDS ORDERED: ONDANSETRON 4 MG/2 ML VIAL ONE (23:29)
[2020-04-01] MEDS ORDERED: CIPROFLOXACIN 400mg IV 400 MG/200 ML BAG IV ONE (23:29)
[2020-04-01] MEDS ORDERED: METRONIDAZOLE 500mg IVPB 500 MG/100 ML BAG IV ONE (23:29)
[2020-04-02 00:02] LABS: Urine Bacteria >50 /HPF (<20); Urine Culture Reflex Order NOT NEEDED
[2020-04-02 00:04] LABS: Urine Blood 2+ (NEG); Urine Glucose NEGATIVE (NEG)
[2020-04-02 00:05] LABS: Urine Protein 1+ (NEG); Urine pH 5.5 (5.0-7.0)
--- NOTE | 2020-04-02 00:12 | P.HP ---
Certification for Inpatient Patient admitted to: Inpatient With expected LOS: >2 Midnights Practitioner: I am a practitioner with admitting privileges, knowledge of patient current condition, hospital course, and medical plan of care. Services: Services provided to patient in accordance with Admission requirements found in Title 42 Section 412.3 of the Code of Federal Regulations Patient History Date of Service: 04/02/20 Reason for admission: Lightheadedness History of Present Illness: 64-year-old woman with a medical history diabetes mellitus type 2, history of colon cancer status post chemotherapy in the past presented emergency department with a complaint of generalized weakness, lightheadedness, nausea, general malaise about 2 weeks duration. Patient reports falling 2 weeks ago. She was in the emergency department 1 week ago because of the fall. Imaging done and the report any fracture. Patient was discharged home. She reports feeling lightheaded today. Patient was hypotensive in the ED with systolic blood pressure in the 80s. She was given IV normal saline bolus which improved her systolic blood pressure to the 90s. She was complaining of abdominal pain. CT abdomen and pelvis done report thickened of a segment of colon which may indicate proctitis, malignancy not ruled out. CT abdomen and pelvis also reports possible metastatic lesion in the liver and the right kidney. Her lactic acid is elevated to 4.8. Patient is admitted for further management. Allergies Sulfa (Sulfonamide Antibiotics) Allergy (Verified 10/11/19 17:27) Unknown Bactrim DS Allergy (Uncoded 10/11/19 17:27) Unknown Home Medications: Metformin HCl [Glucophage*] 500 mg PO BID 03/15/18 Loperamide HCl [Anti-Diarrheal] 2 mg PO BID PRN 10/12/19 Aspirin [Aspir-Low] 81 mg PO DAILY #30 tablet. 10/15/19 - Past Medical/Surgical History Diabetic: Yes -: DM-2 -: HTN -: COLON CANCER -: Hernia Repair -: Hysterectomy - Family History Father -: Heart disease, Lung disease, Diabetes Mother -: Diabetes Brother -: Diabetes Notes: IDDM Sister -: Blood disorders - Social History Alcohol use: No CD- Drugs: No Caffeine use: Yes Review of Systems Other: Except as the all other systems reviewed and negative. Physical Examination - Physical Exam General: Alert, In no apparent distress, Oriented x3 HEENT: Mucous membr. moist/pink, Sclerae nonicteric Neck: Supple, JVD not distended Respiratory: Clear to auscultation bilaterally, Normal air movement Cardiovascular: No edema, Regular rate/rhythm, Normal S1 S2 Capillary refill: <2 Seconds Gastrointestinal: Normal bowel sounds, Soft and benign, No tenderness Musculoskeletal: No swelling, No erythema Integumentary: No rashes, No erythema Neurological: Normal strength at 5/5 x4 extr, Cranial nerves 3-12 intact - Studies Laboratory Data (last 24 hrs) 04/01/20 20:00: PT 11.5, INR 0.97, APTT 31.6 04/01/20 20:00: WBC 10.5, Hgb 10.3 L, Hct 30.8 L, Plt Count 129 L 04/01/20 20:00: Sodium 133 L, Potassium 3.4 L, BUN 16, Creatinine 0.97, Glucose 109 H, Total Bilirubin 0.8, AST 46 H, ALT 23, Alkaline Phosphatase 145 H, Lipase 27 L Assessment and Plan - Problems (Diagnosis) (1) Near syncope Current Visit: Yes Status: Acute (2) Hypotension Current Visit: Yes Status: Acute (3) Multiple lesions of metastatic malignancy Current Visit: Yes Status: Acute (4) History of colon cancer Current Visit: Yes Status: Acute (5) Anemia Current Visit: Yes Status: Acute (6) UTI (urinary tract infection) Current Visit: Yes Status: Acute - Plan Admit to the medical floor Resuscitated with IV normal saline. Start IV Rocephin for UTI Check orthostatics vitals Telemetry. Hold BP meds Hold metformin Blood glucose management with insulin sliding scale Monitor electrolytes and renal function. Consult hematology oncology - Advance Directives Does patient have a Living Will: No Does patient have a Durable POA for Healthcare: No
[2020-04-02] MEDS ORDERED: NA CHLORIDE 0.9% 1,000 ML ONE ×3 (00:45→20:29)
[2020-04-02] MEDS ORDERED: ONDANSETRON 4 MG/2 ML VIAL IV PRN (01:51)
[2020-04-02] MEDS ORDERED: NA CHLORIDE 0.9% 1,000 ML IV SCH (01:51)
[2020-04-02] MEDS ORDERED: NA CHLORIDE 0.9% 250 ML IV ONE (02:35)
[2020-04-02 02:36] VITALS: BMI 20.5
[2020-04-02] MEDS ORDERED: CEFTRIAXONE/SWI 1gm 1 GM/10 ML SYR IV SCH (03:00)
[2020-04-02] MEDS ORDERED: NOREPINEPHRINE 4mg/D5W 250mL 4 MG/250 ML BAG IV ONE (05:00)
[2020-04-02] MEDS ORDERED: NOREPINEPHRINE 4 MG in D5W 250 ML IV PRN (05:40)
[2020-04-02 06:50] LABS: BUN Blood Urea Nitrogen 12 mg/dL (7-18); Bicarbonate 23 mmol/L (21-32); Glucose Level 92 mg/dL (74-106); Magnesium 2.2 mg/dL (1.8-2.4); Phosphorus 2.7 mg/dL (2.5-4.9); Potassium 3.5 mmol/L (3.5-5.1); Sodium Level 140 mmol/L (136-145)
[2020-04-02 06:56] LABS: Absolute Lymphocytes (CBC) 0.3 K/uL (0.7-4.9); Basophils % 0.2 % (0-1.3); Hematocrit 25.1 % (36.0-45.0); Lymphocytes % 4.2 % (15.3-44.8); MPV 7.6 fL (7.6-11.3)
[2020-04-02] MEDS: INSULIN -REGULAR HUMAN 50 UNIT/0.5 ML ML SQ SCH ×4 (07:30→21:00)
[2020-04-02] MEDS ORDERED: POTASSIUM CL SA 10 MEQ TAB PO ONE ×2 (08:18→09:25)
--- NOTE | 2020-04-02 08:18 | P.PN ---
Date of Service: 04/02/20 Patient seen and examined. She was persistently hypotensive. Patient started on Levophed drip after she had gotten 3,250 ml NS bolus. UA suggest the presence of UTI. Patient is awake and alert. Will change antibiotics to IV cefepime and vanco. Continue Levophed and titrate Continue IV hydration Patient to be seen by hematology oncology for abdominal metastasis. Drop in hemoglobin noted. Follow CBC and transfuse p.r.n. for hemoglobin less than 7.
[2020-04-02] MEDS ORDERED: CEFEPIME 1 GM/VIAL IV SCH (09:00)
[2020-04-02] MEDS: NA CHLORIDE 0.9% 1,000 ML IV SCH ×2 (09:16→16:24)
[2020-04-02] MEDS: VANCOMYCIN/NS 1 gm 1 GM/250 ML BAG IVPB SCH ×2 (09:24→21:00)
[2020-04-02] MEDS: CEFEPIME/SWI 1gm 10 ML IV SCH ×2 (09:25→21:00)
[2020-04-02] MEDS ORDERED: CEFEPIME 2 GM VIAL ONE (09:28)
[2020-04-02] MEDS ORDERED: VANCOMYCIN 1 GM/VIAL ONE ×2 (09:29→20:25)
[2020-04-02] MEDS ORDERED: NS 0.9% VIAL 0 ML ONE (09:31)
[2020-04-02] MEDS ORDERED: NA CHLORIDE 0.9% 0 ML ONE (09:31)
[2020-04-02 10:36] LABS: Anisocytosis 2+; Blood Morphology Comment NOTED (NOT SEEN); Platelet Estimate DECR; Urine White Blood Cell Casts OK
--- NOTE | 2020-04-02 11:02 | EKG ---
Test Date: 2020-04-01 Test Time: 20:32:17 Organ Grinder: MG MEASUREMENT RESULTS: Intervals: Rate: 78 MO: 154 QRSD: 100 QT: 408 QTc: 465 Filion: P: 66 MO: 154 QRS: 38 T: 44 INTERPRETIVE STATEMENTS: Normal sinus rhythm Possible Anterior infarct, age undetermined Abnormal ECG Compared to ECG 04/01/2020 20:31:31 No significant changes Electronically Signed On 04-02-20 11:01:00 CDT by Marcial Wood
[2020-04-02] MEDS ORDERED: HYDROMORPHONE HCL 1 MG/ML INJ IV ONE (11:12)
[2020-04-02] MEDS ORDERED: HYDROMORPHONE HCL 1 MG/ML INJ ONE (11:29)
[2020-04-02] MEDS: HYDROCODONE/APAP 5/325 MG TAB PO PRN (17:09)
[2020-04-02] MEDS ORDERED: HYDROCODONE/APAP 5/325 MG TAB ONE (17:19)
[2020-04-02] MEDS ORDERED: NA CHLORIDE 0.9% 250 ML ONE (20:26)
[2020-04-02] MEDS ORDERED: INSULIN -REGULAR HUMAN 50 UNIT/0.5 ML ML ONE (21:27)
[2020-04-03] MEDS: HYDROCODONE/APAP 5/325 MG TAB PO PRN ×4 (00:34→18:50)
[2020-04-03] MEDS ORDERED: HYDROCODONE/APAP 5/325 MG TAB ONE ×4 (00:41→19:00)
[2020-04-03 04:48] LABS: Absolute Lymphocytes (CBC) 0.3 K/uL (0.7-4.9); Basophils % 0.2 % (0-1.3); Lymphocytes % 5.3 % (15.3-44.8); MPV 7.5 fL (7.6-11.3); RBC Red Blood Cell Count 2.58 M/uL (3.86-4.86)
[2020-04-03 04:56] LABS: BUN Blood Urea Nitrogen 9 mg/dL (7-18); Bicarbonate 26 mmol/L (21-32); Glucose Level 142 mg/dL (74-106); Magnesium 1.8 mg/dL (1.8-2.4); Potassium 3.4 mmol/L (3.5-5.1); Sodium Level 138 mmol/L (136-145)
[2020-04-03 05:03] LABS: Protime INR 1.08
[2020-04-03] MEDS ORDERED: MAGNESIUM SULFATE 1 gm IVPB 1 GM/100 ML BAG IV ONE ×2 (05:12→06:37)
--- NOTE | 2020-04-03 05:24 | P.PN ---
Subjective Date of Service: 04/03/20 Chief Complaint: Lightheadedness Patient reports feeling much better today. She is off Levophed. Blood pressure has improved. Patient is afebrile. She has good urine output. Physical Examination - Vital Signs Temperature: 98.8 F Blood Pressure: 111/61 Pulse: 80 Respirations: 14 Pulse Ox (%): 94 - Physical Exam General: Alert, In no apparent distress HEENT: Mucous membr. moist/pink Neck: Supple, JVD not distended Respiratory: Clear to auscultation bilaterally, Normal air movement Cardiovascular: No edema, Regular rate/rhythm, Normal S1 S2, No murmurs Gastrointestinal: Normal bowel sounds, Soft and benign, Non-distended, No tenderness Musculoskeletal: No erythema Integumentary: No rashes, No erythema Neurological: Other (Nonfocal) Assessment And Plan - Current Problems (Diagnosis) (1) Near syncope Current Visit: Yes Status: Acute (2) Hypotension Current Visit: Yes Status: Acute (3) Multiple lesions of metastatic malignancy Current Visit: Yes Status: Acute (4) History of colon cancer Current Visit: Yes Status: Acute (5) Anemia Current Visit: Yes Status: Acute (6) UTI (urinary tract infection) Current Visit: Yes Status: Acute - Plan Continue IV fluid Continue current antibiotics Telemetry. Obtain echocardiogram Drop in hemoglobin noted. Monitor CBC and transfuse for hemoglobin less than 7. Hold BP meds Hold metformin Blood glucose management with insulin sliding scale Monitor electrolytes and renal function. CT-guided biopsy of liver metastasis at the infection has been adequately treated. Most likely as an outpatient. Case discussed with the oncologist-Dr. Chris.
[2020-04-03] MEDS ORDERED: NA CHLORIDE 0.9% 1,000 ML ONE ×2 (06:23→16:44)
[2020-04-03] MEDS ORDERED: POTASSIUM CL SA 10 MEQ TAB PO ONE ×2 (06:30→06:37)
[2020-04-03] MEDS: NA CHLORIDE 0.9% 1,000 ML IV SCH ×3 (06:35→16:35)
[2020-04-03] MEDS: POTASS/SODIUM PHOSPHATE 1 PKT POWD.PACK PO SCH ×3 (06:48→10:05)
[2020-04-03] MEDS ORDERED: POTASS/SODIUM PHOSPHATE 1 PKT POWD.PACK ONE (06:50)
[2020-04-03] MEDS: INSULIN -REGULAR HUMAN 50 UNIT/0.5 ML ML SQ SCH ×4 (07:30→20:20)
--- NOTE | 2020-04-03 08:39 | RAD REPORT ---
EXAM DESCRIPTION: Abdomen Pelvis W Contrast CLINICAL HISTORY: GI BLEED COMPARISON: None Available TECHNIQUE: Contiguous axial images of the abdomen and pelvis were obtained after the administration of intravenous contrast followed by reconstruction images.This exam was performed according to our de partmental dose-optimization program, which includes automated exposure control, adjustment of the mA and/or kV according to patient size and/or use of iterative reconstruction technique. FINDINGS: Linear opacities of the lower lungs may represent scar versus subsegmental atelectasis. In creased opacity in the dependent portion of the lungs may represent atelectasis. There is a hiatal he rnia. There is 3.2 cm mass within the right hepatic parenchyma, axial image 25, 1 cm mass at the righ t hepatic lobe, image 11, 2.8 cm mass adjacent to the left portal vein, and left hepatic lobe measuri ng 1.2 cm. There is mucosal thickening of the rectum, malignancy cannot be excluded. Area of abnormal attenuation within the mid and lower right kidney measuring approximately 6.1 cm wor risome for malignancy. Possibility of an infectious process cannot be completely excluded. Correlatio n with laboratory data recommended. Appendix was not visualized, there is no pericecal inflammation. There is a nonobstructive stone within the left kidney. There are gallstones within the gallbladder. The gallbladder is otherwise unremarkable by CT criteria. Deformity of the endplates and intervertebr al disc space at L3-L4 compatible with discitis of unknown age. The spleen, pancreas and left kidney are otherwise within normal limits. There is no hydronephrosis Adrenal glands are within normal limits. Aorta is of normal caliber and tapering. There is no free fl uid in the abdomen or pelvis. There is no bowel obstruction. IMPRESSION: Mucosal thickening of the rectum could be secondary to an infectious process/colitis. Ma lignancy cannot be excluded.. Hepatic masses compatible with metastatic disease. Right renal mass worrisome for malignancy. Infectious process cannot be completely excluded. Correlat ion with laboratory data recommended. Discitis at the L3/L4 of unknown age. Electronically signed by: Mirza Way MD 04/01/2020 10:44 PM CDT Due to temporary technical issues with the PACS/Fluency reporting system, reports are being signed by the in house radiologist without review as a courtesy to ensure prompt reporting. The interpreting r adiologist is fully responsible for the content of the report.
[2020-04-03] MEDS: CEFEPIME/SWI 1gm 10 ML IV SCH ×2 (10:06→20:26)
[2020-04-03] MEDS: VANCOMYCIN/NS 1 gm 1 GM/250 ML BAG IVPB SCH ×2 (10:06→20:51)
[2020-04-04] MEDS: NA CHLORIDE 0.9% 1,000 ML IV SCH ×4 (00:20→21:02)
[2020-04-04] MEDS: HYDROCODONE/APAP 5/325 MG TAB PO PRN ×4 (00:20→18:46)
[2020-04-04] MEDS ORDERED: HYDROCODONE/APAP 5/325 MG TAB ONE ×4 (00:29→18:21)
[2020-04-04] MEDS ORDERED: NA CHLORIDE 0.9% 1,000 ML ONE ×3 (00:29→21:06)
[2020-04-04 05:06] LABS: Absolute Lymphocytes (CBC) 0.4 K/uL (0.7-4.9); Basophils % 0.2 % (0-1.3); MPV 7.9 fL (7.6-11.3); RBC Red Blood Cell Count 2.44 M/uL (3.86-4.86)
[2020-04-04 05:16] LABS: Hematocrit 20.9 % (36.0-45.0)
[2020-04-04 05:17] LABS: BUN Blood Urea Nitrogen 4 mg/dL (7-18); Bicarbonate 26 mmol/L (21-32); Glucose Level 115 mg/dL (74-106); Magnesium 1.8 mg/dL (1.8-2.4); Potassium 3.5 mmol/L (3.5-5.1); Sodium Level 137 mmol/L (136-145)
[2020-04-04] MEDS ORDERED: POTASSIUM CL SA 10 MEQ TAB PO ONE ×2 (05:55→06:00)
[2020-04-04] MEDS ORDERED: MAGNESIUM SULFATE 1 gm IVPB 1 GM/100 ML BAG IV ONE ×2 (05:55→06:00)
[2020-04-04] MEDS: POTASS/SODIUM PHOSPHATE 1 PKT POWD.PACK PO SCH ×3 (06:10→07:57)
[2020-04-04] MEDS ORDERED: NA CHLORIDE 0.9% 250 ML ONE (06:35)
[2020-04-04] MEDS: INSULIN -REGULAR HUMAN 50 UNIT/0.5 ML ML SQ SCH ×4 (07:30→21:00)
[2020-04-04] MEDS: VANCOMYCIN/NS 1 gm 1 GM/250 ML BAG IVPB SCH (08:30)
[2020-04-04] MEDS: CEFEPIME/SWI 1gm 10 ML IV SCH ×2 (08:35→21:01)
[2020-04-04 11:58] LABS: Hematocrit 24.6 % (36.0-45.0)
--- NOTE | 2020-04-04 18:14 | P.PN ---
Subjective Date of Service: 04/04/20 Chief Complaint: Lightheadedness Subjective: Improving (Patient is reporting dysuria but it's much improved.) Physical Examination - Vital Signs Temperature: 98.8 F Blood Pressure: 116/69 Pulse: 79 Respirations: 16 Pulse Ox (%): 100 - Physical Exam General: Alert, In no apparent distress, Cooperative HEENT: Atraumatic, Normocephalic, EOMI Neck: Supple Respiratory: Clear to auscultation bilaterally, Normal air movement Cardiovascular: Regular rate/rhythm, Normal S1 S2, Other, Systolic murmur Gastrointestinal: Normal bowel sounds, Soft and benign, Non-distended Musculoskeletal: No clubbing, No swelling, No contractures, No erythema, No tenderness, No warmth Integumentary: No rashes, No breakdown, No significant lesion, No tenderness/swelling, No erythema, No warmth, No cyanosis Neurological: Normal speech, Sensation intact, Normal affect - Studies Microbiology Data (last 24 hrs): 04/01/20 20:00 Blood - Blood Aerobic Blood Culture - Final Enterococcus Faecalis 04/01/20 20:00 Blood - Blood Blood Culture Gram Stain - Final 04/01/20 20:00 Blood - Blood Anaerobic Blood Culture - Final Enterococcus Faecalis 04/01/20 20:00 Blood - Blood Gram Stain - Final 04/01/20 20:15 Blood - Blood Aerobic Blood Culture - Final Enterococcus Faecalis 04/01/20 20:15 Blood - Blood Blood Culture Gram Stain - Final 04/01/20 20:15 Blood - Blood Anaerobic Blood Culture - Final Enterococcus Faecalis 04/01/20 20:15 Blood - Blood Gram Stain - Final 04/01/20 22:50 Clean Catch Urine Marble Count - Final >100,000 CFU/ML. 04/01/20 22:50 Clean Catch Urine - Final Escherichia Coli Assessment & Plan - Problems (Diagnosis) (1) Septic shock Current Visit: Yes Status: Acute (2) History of colon cancer Current Visit: Yes Status: Acute (3) Multiple lesions of metastatic malignancy Current Visit: Yes Status: Acute (4) Near syncope Current Visit: Yes Status: Acute (5) UTI (urinary tract infection) Current Visit: Yes Status: Acute (6) Aortic stenosis Current Visit: No Status: Acute (7) Diabetes mellitus type II, non insulin dependent Onset Date: 09/23/15 Current Visit: No Status: Chronic (8) Hiatal hernia with GERD Current Visit: No Status: Chronic Physician Review Additional Text: Assessment Patient is a 64 year old female with type II diabetes mellitus, aortic stenosis s/p recent TAVR, colon cancer s/p chemotherapy who presented to the hospital with pre-syncopal symptoms, dysuria. Developed septic shock and required vasopressors while in the ICU. Work up so far has yielded E. coli UTI and bacteremia with enteroccous faecalis, 2/2. She has been weaned off pressors. In addition, CT abdomen and pelvis showed metastatic lesions to the liver Septic shock E. coli UTI Enteroccous faecalis bacteremia Metastatic lesions to liver Recent TAVR Suspected infective endocarditis Anemia Type II diabetes PLAN: Transfuse pRBC for Hb < 7 Continue vancomycin for suspected infective endocarditis Continue cefepime for UTI CT guided liver biopsy of liver mets NPO after midnigiht, check AM labs and coag panel Downgraded to general floor with telemetry She will need at least 6-weeks for infective endocarditis She will also need to follow up with Hematology upon discharge
[2020-04-04] MEDS: VANCOMYCIN 1.25 GM in NA CHLORIDE 0.9% 250 ML IVPB SCH (21:01)
[2020-04-04] MEDS ORDERED: ATORVASTATIN 20 MG TAB ONE (21:08)
[2020-04-04] MEDS ORDERED: MORPHINE 2 MG/ML SYR IV ONE (23:01)
[2020-04-05] MEDS: HYDROCODONE/APAP 5/325 MG TAB PO PRN ×4 (00:42→20:27)
[2020-04-05] MEDS ORDERED: HYDROCODONE/APAP 5/325 MG TAB ONE ×3 (00:51→14:18)
[2020-04-05] MEDS ORDERED: HYDROCODONE/APAP 5/325 MG TAB PO ONE (01:19)
[2020-04-05 04:56] LABS: Absolute Lymphocytes (CBC) 0.5 K/uL (0.7-4.9); Basophils % 0.2 % (0-1.3); Hematocrit 25.5 % (36.0-45.0); Lymphocytes % 3.9 % (15.3-44.8); MPV 7.6 fL (7.6-11.3); RBC Red Blood Cell Count 2.92 M/uL (3.86-4.86)
[2020-04-05 05:23] LABS: Protime INR 1.13
[2020-04-05 05:28] LABS: BUN Blood Urea Nitrogen 5 mg/dL (7-18); Bicarbonate 25 mmol/L (21-32); Glucose Level 135 mg/dL (74-106); Magnesium 1.6 mg/dL (1.8-2.4); Phosphorus 2.7 mg/dL (2.5-4.9); Potassium 3.7 mmol/L (3.5-5.1); Sodium Level 137 mmol/L (136-145)
[2020-04-05] MEDS ORDERED: KCL 20 MEQ/100 mL IVPB 20 MEQ/100 ML BAG IV SCH (06:00)
[2020-04-05] MEDS ORDERED: MAGNESIUM SULFATE 1 gm IVPB 1 GM/100 ML BAG IV ONE ×2 (06:29→07:00)
[2020-04-05 07:11] LABS: Anisocytosis 1+; Blood Morphology Comment NOTED (NOT SEEN); Platelet Estimate DECR; Rouleau NOTED
[2020-04-05] MEDS: INSULIN -REGULAR HUMAN 50 UNIT/0.5 ML ML SQ SCH ×4 (07:30→21:00)
[2020-04-05] MEDS ORDERED: KCL 20 MEQ/100 mL IVPB 20 MEQ/100 ML BAG IV ONE (07:51)
[2020-04-05] MEDS: VANCOMYCIN 1.25 GM in NA CHLORIDE 0.9% 250 ML IVPB SCH ×2 (09:23→20:22)
[2020-04-05] MEDS: CEFEPIME/SWI 1gm 10 ML IV SCH ×3 (09:23→20:23)
[2020-04-05] MEDS ORDERED: FENTANYL CITR 100 MCG/2 ML ONE (11:30)
[2020-04-05] MEDS ORDERED: MIDAZOLAM HCL 2 MG/2 ML INJ ONE (11:30)
[2020-04-05] MEDS ORDERED: NA CHLORIDE 0.9% 1,000 ML ONE ×2 (11:31→14:32)
--- NOTE | 2020-04-05 12:04 | P.CNS ---
Date of Consult: 04/05/20 Subjective: Patient is a 64-year-old female with past medical history of diabetes myelitis and colon cancer status post chemotherapy who presents with generalized weakness, lightheadedness, nausea, general malaise for about 2 weeks. Patient presented the ED about a week ago after she took a fall. Imaging done did not show fracture. Patient found to have leukocytosis which I have been consulted for. Abd CT showed hepatic mass, Patient down for a liver biopsy at this time. I spoke with the nurse who reports, patient has some c onfusion and complains of generalized pain. Denies fever, nausea and diarrhea. history obtained through medical records. - Past Medical/Surgical History Diabetic: Yes -: DM-2 -: HTN -: COLON CANCER -: Hernia Repair -: Hysterectomy - Family History Father -: Heart disease, Lung disease, Diabetes Mother -: Diabetes Brother -: Diabetes Notes: IDDM Sister -: Blood disorders - Social History Alcohol use: No CD- Drugs: No Caffeine use: Yes Allergies Sulfa (Sulfonamide Antibiotics) Allergy (Verified 04/03/20 21:11) Itching/Hives/Rash sulfamethoxazole [From Bactrim] Allergy (Verified 04/03/20 21:11) Itching/Hives/Rash trimethoprim [From Bactrim] Allergy (Verified 04/03/20 21:11) Itching/Hives/Rash Active Medications Acetaminophen (Tylenol -Extra Strength) 500 mg PO Q4HP PRN PRN Reason: TEMP > 100' F Stop: 05/02/20 01:52 Hydrocodone Bitart/Acetaminophen ([place] 5/325) 1 tab PO Q6H PRN PRN Reason: Pain scale 5-7 (Moderate) Stop: 05/02/20 01:52 Last Admin: 04/05/20 06:21 Dose: 1 tab Documented by: Hydromorphone HCl (Dilaudid) 1 mg IV Q4H PRN PRN Reason: Pain scale 8-10 (Severe) Stop: 05/05/20 10:17 Sodium Chloride (Ns 1000 Ml Ivbag) 1,000 mls @ 125 mls/hr IV .Q8H [facility] Stop: 05/02/20 08:24 Last Admin: 04/04/20 21:02 Dose: 1,000 mls Documented by: Cefepime HCl (Maxipime 1 Gm/10 Ml Ivp) 10 mls @ 200 mls/hr IV Q12HR [facility] Stop: 05/02/20 09:01 Last Admin: 04/05/20 09:23 Dose: 10 mls Documented by: Vancomycin HCl 1.25 gm/ Sodium (Chloride) 250 mls @ 150 mls/hr IVPB Q12HR [facility] Stop: 05/04/20 21:01 Last Admin: 04/05/20 09:23 Dose: 250 mls Documented by: Insulin Human Regular (Novolin -R) 0 unit SQ ACHS [facility]; Protocol Stop: 05/02/20 07:31 Last Admin: 04/05/20 07:30 Dose: Not Given Documented by: Lidocaine (Aspercreme 4% Patch) 1 patch TOP DAILY [facility] Stop: 05/05/20 11:01 Ondansetron HCl (Zofran) 4 mg IV Q6HP PRN PRN Reason: NAUSEA / VOMITING Stop: 05/02/20 01:52 Sodium Chloride (Normal Saline Flush) 10 ml IV BID [facility] Stop: 05/02/20 09:01 Last Admin: 04/05/20 09:27 Dose: 10 ml Documented by: Objective: Temp Pulse Resp BP Pulse Ox 98.2 F 74 20 132/76 98 04/05/20 07:24 04/05/20 07:24 04/05/20 07:24 04/05/20 07:24 04/05/20 07:24 Labs: Sodium 137, potassium 3.7, BUN 5, creatinine 0.45, albumin 2.5, WBC 12.4, hemoglobin 8.4, hematocrit 25.5 ABD/Pelvis CT 04/01: EXAM DESCRIPTION: Abdomen Pelvis W Contrast CLINICAL HISTORY: GI BLEED COMPARISON: None Available TECHNIQUE: Contiguous axial images of the abdomen and pelvis were obtained after the administration of intravenous contrast followed by reconstruction images.This exam was performed according to our departmental dose-optimization program, which includes automated exposure control, adjustment of the mA and/or kV according to patient size and/or use of iterative reconstruction technique. FINDINGS: Linear opacities of the lower lungs may represent scar versus subsegmental atelectasis. Increased opacity in the dependent portion of the lungs may represent atelectasis. There is a hiatal hernia. There is 3.2 cm mass within the right hepatic parenchyma, axial image 25, 1 cm mass at the right hepatic lobe, image 11, 2.8 cm mass adjacent to the left portal vein, and left hepatic lobe measuring 1.2 cm. There is mucosal thickening of the rectum, malignancy cannot be excluded. Area of abnormal attenuation within the mid and lower right kidney measuring approximately 6.1 cm worrisome for malignancy. Possibility of an infectious process cannot be completely excluded. Correlation with laboratory data recommended. Appendix was not visualized, there is no pericecal inflammation. There is a nonobstructive stone within the left kidney. There are gallstones within the gallbladder. The gallbladder is otherwise unremarkable by CT criteria. Deformity of the endplates and intervertebral disc space at L3-L4 compatible with discitis of unknown age. The spleen, pancreas and left kidney are otherwise within normal limits. There is no hydronephrosis Adrenal glands are within normal limits. Aorta is of normal caliber and tapering. There is no free fluid in the abdomen or pelvis. There is no bowel obstruction. IMPRESSION: Mucosal thickening of the rectum could be secondary to an infectious process/colitis. Malignancy cannot be excluded.. Hepatic masses compatible with metastatic disease. Right renal mass worrisome for malignancy. Infectious process cannot be completely excluded. Correlation with laboratory data recommended. Discitis at the L3/L4 of unknown age. Electronically signed by: Mirza Way MD 04/01/2020 10:44 PM CDT Due to temporary technical issues with the PACS/Fluency reporting system, reports are being signed by the in house radiologist without review as a courtesy to ensure prompt reporting. The interpreting radiologist is fully responsible for the content of the report. Assessment and plan: Leukocytosis UTI, urine culture shows E. Coli, sensitive to Maxipime Bacteremia secondary to Enterococcus Faecalis, sensitive to Vancomycin Recommend to continue Maxipime and Vancomycin for total of 2 weeks from negative blood cultures Will repeat blood cultures today Anemia/Thrombocytopenia, Abd/Pelvis CT shows possible metastatic disease Hepatic mass, awaiting results from liver biopsy Protein calorie malnourished Diabetes mellitus, monitor glycemic control Will continue to monitor Thank you for consult Patient discussed with Dr. Conklin
--- NOTE | 2020-04-05 12:16 | RAD REPORT ---
EXAM DESCRIPTION: CT - Liver Biopsy Perc CT - 04/05/2020 12:04 pm CLINICAL HISTORY: r/o malignancy Multiple liver masses, suspected metastatic disease. COMPARISON: Abdomen Pelvis W Contrast dated 04/01/2020 FINDINGS: Preoperative diagnosis: Liver masses, suspect metastasis. Post operative diagnosis: Same Conscious Sedation: 45 minutes of IV conscious sedation utilizing fentanyl and midazolam was performe d.. Patient was continuously monitored by nursing staff. Contrast used: NONE Estimated blood loss: less than 5 mL Specimens: 3 x 2 cm 18 gauge core biopsy specimen The patient was placed prone on the table and the right upper quadrant area was prepped and draped in the usual sterile fashion. 1% lidocaine was infiltrated into the subcutaneous tissues for local anes thesia. Under computed tomographic guidance, a 17 gauge introducer was advanced into the largest lesi on inferior right lobe of the liver. Subsequently, a 18 gauge, 10 cm long, 20 mm throw core biopsy gu n was advanced into the lesion and 3 cores were obtained. Postprocedure imaging demonstrated no complications. Samples were given to pathology for analysis. Th e patient tolerated the procedure without immediate complication and transferred to the recovery room in stable condition. IMPRESSION: Successful CT-guided biopsy of right lobe liver mass. 45 minutes of IV conscious sedation was utilized. All CT scans are performed using dose optimization technique as appropriate and may include automated exposure control or mA/KV adjustment according to patient size.
--- NOTE | 2020-04-05 12:39 | P.PN ---
Subjective Date of Service: 04/05/20 Chief Complaint: Lightheadedness Subjective: Improving (Patient is complaining of back pain this morning. Lidocaine patch and dilaudid ordered. She is NPO for CT guided liver biopsy today.) Physical Examination - Vital Signs Temperature: 98.2 F Blood Pressure: 132/76 Pulse: 74 Respirations: 20 Pulse Ox (%): 98 - Physical Exam General: Cooperative, Cachectic, Moderate distress HEENT: Atraumatic, Normocephalic, EOMI Neck: Supple Respiratory: Clear to auscultation bilaterally, Normal air movement Cardiovascular: No edema, Regular rate/rhythm, Systolic murmur Gastrointestinal: Normal bowel sounds, Soft and benign, Non-distended, No tenderness Musculoskeletal: No clubbing, No swelling, No contractures, No erythema, No tenderness, No warmth Integumentary: No rashes, No breakdown, No significant lesion, No tenderness/swelling, No erythema, No warmth, No cyanosis Neurological: Normal speech, Sensation intact, Normal affect - Studies Microbiology Data (last 24 hrs): 04/01/20 20:00 Blood - Blood Aerobic Blood Culture - Final Enterococcus Faecalis 04/01/20 20:00 Blood - Blood Blood Culture Gram Stain - Final 04/01/20 20:00 Blood - Blood Anaerobic Blood Culture - Final Enterococcus Faecalis 04/01/20 20:00 Blood - Blood Gram Stain - Final 04/01/20 20:15 Blood - Blood Aerobic Blood Culture - Final Enterococcus Faecalis 04/01/20 20:15 Blood - Blood Blood Culture Gram Stain - Final 04/01/20 20:15 Blood - Blood Anaerobic Blood Culture - Final Enterococcus Faecalis 04/01/20 20:15 Blood - Blood Gram Stain - Final 04/01/20 22:50 Clean Catch Urine [place] Count - Final >100,000 CFU/ML. 04/01/20 22:50 Clean Catch Urine - Final Escherichia Coli Assessment & Plan - Problems (Diagnosis) (1) Septic shock Current Visit: Yes Status: Acute (2) History of colon cancer Current Visit: Yes Status: Acute (3) Multiple lesions of metastatic malignancy Current Visit: Yes Status: Acute (4) Near syncope Current Visit: Yes Status: Acute (5) UTI (urinary tract infection) Current Visit: Yes Status: Acute (6) Aortic stenosis Current Visit: No Status: Acute (7) Diabetes mellitus type II, non insulin dependent Onset Date: 09/23/15 Current Visit: No Status: Chronic (8) Hiatal hernia with GERD Current Visit: No Status: Chronic Physician Review Additional Text: Assessment Patient is a 64 year old female with type II diabetes mellitus, aortic stenosis s/p recent TAVR, colon cancer s/p chemotherapy who presented to the hospital with pre-syncopal symptoms, dysuria. Developed septic shock and required vasopressors while in the ICU. Work up so far has yielded E. coli UTI and bacteremia with enteroccous faecalis, 2/2. She has been weaned off pressors. In addition, CT abdomen and pelvis showed metastatic lesions to the liver Septic shock E. coli UTI Enteroccous faecalis bacteremia Metastatic lesions to liver Recent TAVR Suspected infective endocarditis Anemia Type II diabetes PLAN: CT guided liver biopsy Continue vancomycin and cefepime for suspected infective endocarditis Continue cefepime for UTI ID has been consulted Optimize pain regimen Downgrade to general floor with telemetry She will need at least 6-weeks for infective endocarditis She will also need to follow up with Hematology, ID and possibly cardiology upon discharge
[2020-04-05] MEDS: LIDOCAINE 4% PATCH TOP SCH (13:44)
[2020-04-05] MEDS ORDERED: LIDOCAINE 4% PATCH ONE (13:52)
[2020-04-05] MEDS: NA CHLORIDE 0.9% 1,000 ML IV SCH ×3 (14:24→23:51)
[2020-04-05] MEDS: HYDROMORPHONE HCL 1 MG/ML INJ IV PRN ×2 (17:23→23:50)
[2020-04-06 06:05] LABS: BUN Blood Urea Nitrogen 4 mg/dL (7-18); Bicarbonate 26 mmol/L (21-32); Glucose Level 144 mg/dL (74-106); Magnesium 1.9 mg/dL (1.8-2.4); Potassium 3.3 mmol/L (3.5-5.1); Sodium Level 137 mmol/L (136-145)
[2020-04-06] MEDS: INSULIN -REGULAR HUMAN 50 UNIT/0.5 ML ML SQ SCH ×4 (07:30→21:00)
[2020-04-06] MEDS: LIDOCAINE 4% PATCH TOP SCH (08:47)
[2020-04-06] MEDS: NA CHLORIDE 0.9% 1,000 ML IV SCH ×3 (08:47→20:50)
[2020-04-06] MEDS: VANCOMYCIN 1.25 GM in NA CHLORIDE 0.9% 250 ML IVPB SCH ×2 (08:48→22:03)
[2020-04-06] MEDS ORDERED: POTASSIUM CL SA 10 MEQ TAB PO ONE ×2 (09:00→15:22)
[2020-04-06 10:34] LABS: Absolute Lymphocytes (CBC) 0.5 K/uL (0.7-4.9); Basophils % 0.3 % (0-1.3); Hematocrit 22.8 % (36.0-45.0); Lymphocytes % 4.7 % (15.3-44.8); MPV 7.6 fL (7.6-11.3); RBC Red Blood Cell Count 2.66 M/uL (3.86-4.86)
--- NOTE | 2020-04-06 14:30 | P.PN ---
Subjective Date of Service: 04/06/20 Chief Complaint: Lightheadedness Subjective: Improving (No acute events overnight. CT guided liver biopsy well tolerated. I discussed CT findings of abdominal metastasis) Physical Examination - Vital Signs Temperature: 98.4 F Blood Pressure: 128/71 Pulse: 79 Respirations: 18 Pulse Ox (%): 95 - Physical Exam General: Alert, Cooperative, Mild distress HEENT: Atraumatic, Normocephalic, EOMI Neck: Supple Respiratory: Clear to auscultation bilaterally, Normal air movement Cardiovascular: No edema, Regular rate/rhythm, Systolic murmur Gastrointestinal: Other, Tenderness Musculoskeletal: No clubbing, No swelling, No contractures, No erythema, No tenderness, No warmth Integumentary: No rashes, No breakdown, No significant lesion, No tenderness/swelling, No erythema, No warmth, No cyanosis Neurological: Normal speech, Sensation intact, Normal affect Assessment & Plan - Problems (Diagnosis) (1) Septic shock Current Visit: Yes Status: Acute (2) History of colon cancer Current Visit: Yes Status: Acute (3) Multiple lesions of metastatic malignancy Current Visit: Yes Status: Acute (4) Near syncope Current Visit: Yes Status: Acute (5) UTI (urinary tract infection) Current Visit: Yes Status: Acute (6) Aortic stenosis Current Visit: No Status: Acute (7) Diabetes mellitus type II, non insulin dependent Onset Date: 09/23/15 Current Visit: No Status: Chronic (8) Hiatal hernia with GERD Current Visit: No Status: Chronic Physician Review Additional Text: Assessment Patient is a 64 year old female with type II diabetes mellitus, aortic stenosis s/p recent TAVR, colon cancer s/p chemotherapy who presented to the hospital with pre-syncopal symptoms, dysuria. Developed septic shock and required vasopressors while in the ICU. Work up so far has yielded E. coli UTI and bacteremia with enteroccous faecalis, 2/2. She has been weaned off pressors. In addition, CT abdomen and pelvis showed metastatic lesions to the liver. CT guided liver biopsy on 04/05. Pathology pending. Septic shock E. coli UTI Enteroccous faecalis bacteremia Metastatic lesions to liver Recent TAVR Suspected infective endocarditis Anemia Type II diabetes PLAN: Follow up repeat blood cultures Continue vancomycin and cefepime for suspected infective endocarditis Will most likely require long-term IV antibiotics ID is on board I discussed plan of care with case management and possible need for OP IV abx. Optimize pain regimen Downgrade to general floor with telemetry She will need at least 6-weeks for infective endocarditis She will also need to follow up with Hematology, ID and possibly cardiology upon discharge
[2020-04-06] MEDS: HYDROCODONE/APAP 5/325 MG TAB PO PRN ×2 (16:23→22:07)
[2020-04-06] MEDS: CEFEPIME/SWI 1gm 10 ML IV SCH (20:51)
[2020-04-06] MEDS ORDERED: POTASSIUM 25 MEQ EFFERV TAB PO ONE (21:38)
[2020-04-07 06:02] LABS: BUN Blood Urea Nitrogen 4 mg/dL (7-18); Bicarbonate 25 mmol/L (21-32); Glucose Level 116 mg/dL (74-106); Potassium 3.7 mmol/L (3.5-5.1); Sodium Level 137 mmol/L (136-145)
[2020-04-07] MEDS: INSULIN -REGULAR HUMAN 50 UNIT/0.5 ML ML SQ SCH ×4 (07:30→21:00)
[2020-04-07] MEDS: CEFEPIME/SWI 1gm 10 ML IV SCH ×2 (08:23→20:50)
[2020-04-07] MEDS: HYDROCODONE/APAP 5/325 MG TAB PO PRN ×2 (08:24→20:50)
[2020-04-07] MEDS: LIDOCAINE 4% PATCH TOP SCH (08:24)
[2020-04-07] MEDS: NA CHLORIDE 0.9% 1,000 ML IV SCH ×2 (08:27→18:19)
[2020-04-07 08:50] LABS: Absolute Lymphocytes (CBC) 0.4 K/uL (0.7-4.9); Basophils % 0.3 % (0-1.3); Hematocrit 22.8 % (36.0-45.0); Lymphocytes % 3.6 % (15.3-44.8); MPV 7.7 fL (7.6-11.3); RBC Red Blood Cell Count 2.62 M/uL (3.86-4.86)
[2020-04-07] MEDS ORDERED: POTASSIUM 25 MEQ EFFERV TAB PO ONE (09:00)
[2020-04-07] MEDS: VANCOMYCIN 1.25 GM in NA CHLORIDE 0.9% 250 ML IVPB SCH ×2 (09:20→20:50)
[2020-04-07] MEDS ORDERED: HEPARIN SOD 100 UNIT/ML FLUSH IV PRN (10:07)
--- NOTE | 2020-04-07 11:57 | P.PN ---
Subjective Date of Service: 04/07/20 Chief Complaint: Lightheadedness Subjective: No new changes (Feeling much better. BLOOD cultures still positive.) Physical Examination - Vital Signs Temperature: 98.2 F Blood Pressure: 135/68 Pulse: 75 Respirations: 16 Pulse Ox (%): 96 - Physical Exam General: Alert, In no apparent distress, Cooperative HEENT: Atraumatic, Normocephalic, EOMI Neck: Supple Respiratory: Clear to auscultation bilaterally, Normal air movement Cardiovascular: Normal pulses, Regular rate/rhythm, Normal S1 S2, Systolic murmur Gastrointestinal: Normal bowel sounds, Soft and benign, Distended, Hepatosplenomegaly, Hepatomegaly Musculoskeletal: No clubbing, No swelling, No contractures, No erythema, No tenderness, No warmth Neurological: Normal speech, Sensation intact, Normal affect Assessment & Plan - Problems (Diagnosis) (1) Septic shock Current Visit: Yes Status: Acute (2) History of colon cancer Current Visit: Yes Status: Acute (3) Multiple lesions of metastatic malignancy Current Visit: Yes Status: Acute (4) Near syncope Current Visit: Yes Status: Acute (5) UTI (urinary tract infection) Current Visit: Yes Status: Acute (6) Aortic stenosis Current Visit: No Status: Acute (7) Diabetes mellitus type II, non insulin dependent Onset Date: 09/23/15 Current Visit: No Status: Chronic (8) Hiatal hernia with GERD Current Visit: No Status: Chronic Physician Review Additional Text: Assessment Patient is a 64 year old female with type II diabetes mellitus, aortic stenosis s/p recent TAVR, colon cancer s/p chemotherapy who presented to the hospital with pre-syncopal symptoms, dysuria. Developed septic shock and required vasopressors while in the ICU. Work up so far has yielded E. coli UTI and bacteremia with enteroccous faecalis, 2/. She has been weaned off pressors. Her blood cultures, however, are still positive. In addition, CT abdomen and pelvis showed metastatic lesions to the liver. CT guided liver biopsy on 04/05. Pathology pending. Septic shock E. coli UTI Enteroccous faecalis bacteremia Metastatic lesions to liver Recent TAVR Suspected infective endocarditis Anemia Type II diabetes PLAN: Follow up repeat blood cultures inlcuding from the port Continue vancomycin and cefepime for suspected infective endocarditis Will most likely require long-term IV antibiotics ID and mental health social worker on board I discussed plan of care with case management and possible need for at least 6- weeks for infective endocarditis Optimize pain regimen She will also need to follow up with Hematology, ID and possibly cardiology upon discharge
[2020-04-07] MEDS ORDERED: HEPARIN 500 UNIT/5 ML SYR IV PRN (12:05)
[2020-04-08 04:34] LABS: BUN Blood Urea Nitrogen 3 mg/dL (7-18); Bicarbonate 26 mmol/L (21-32); Glucose Level 115 mg/dL (74-106); Potassium 3.3 mmol/L (3.5-5.1); Sodium Level 140 mmol/L (136-145)
[2020-04-08] MEDS: ACETAMINOPHEN 500 MG TAB PO PRN ×2 (05:11→16:47)
[2020-04-08] MEDS: NA CHLORIDE 0.9% 1,000 ML IV SCH ×2 (05:11→08:24)
[2020-04-08] MEDS ORDERED: POTASSIUM 25 MEQ EFFERV TAB PO ONE (06:20)
[2020-04-08 07:26] LABS: Absolute Lymphocytes (CBC) 0.4 K/uL (0.7-4.9); Basophils % 0.9 % (0-1.3); Hematocrit 22.8 % (36.0-45.0); Lymphocytes % 3.1 % (15.3-44.8); MPV 7.7 fL (7.6-11.3); RBC Red Blood Cell Count 2.65 M/uL (3.86-4.86)
[2020-04-08] MEDS: INSULIN -REGULAR HUMAN 50 UNIT/0.5 ML ML SQ SCH ×4 (07:30→21:09)
[2020-04-08] MEDS: VANCOMYCIN 1.25 GM in NA CHLORIDE 0.9% 250 ML IVPB SCH ×2 (09:00→21:10)
[2020-04-08] MEDS: CEFEPIME/SWI 1gm 10 ML IV SCH ×2 (09:12→21:10)
[2020-04-08] MEDS: LIDOCAINE 4% PATCH TOP SCH (09:12)
[2020-04-08] MEDS ORDERED: TRAMADOL HCL 50 MG TAB PO PRN (11:16)
[2020-04-08] MEDS ORDERED: HYDROCODONE/APAP 7.5/325 MG TAB ONE (12:01)
--- NOTE | 2020-04-08 12:57 | P.PN ---
Subjective Date of Service: 04/08/20 Primary Care Provider: unknown Chief Complaint: Lightheadedness Subjective: Improving Physical Examination - Vital Signs Temperature: 96.9 F Blood Pressure: 142/66 Pulse: 78 Respirations: 17 Pulse Ox (%): 96 - Physical Exam General: Alert, Cooperative HEENT: Atraumatic Neck: Supple Respiratory: Clear to auscultation bilaterally Cardiovascular: Normal pulses, Regular rate/rhythm Gastrointestinal: Normal bowel sounds, Non-distended Musculoskeletal: No tenderness, No warmth Integumentary: No warmth, No cyanosis Neurological: Normal speech, Normal strength at 5/5 x4 extr, Normal tone, Normal affect - Studies Medications List Reviewed: Yes Assessment & Plan Physician Review Additional Text: Impression: Septic shock secondary to UTI-urine culture positive for E coli and bacteremia with blood culture positive for Enterococcus faecalis, suspect infective endocarditis History of recent TAVR Anemia of chronic disease Diabetes mellitus type 2 [id number] Metastatic liver disease with history of colon cancer status post chemotherapy, status post liver biopsy performed 04/05/2020 Plan: Septic shock secondary to UTI-urine culture positive for E coli and bacteremia with blood culture positive for Enterococcus faecalis, suspect infective endocarditis: Patient much improved. Continue to monitor closely. Patient on IV vancomycin 1.25 g IV twice daily. Await recommendations by infectious disease for antibiotic choice, dose, and duration. Will discuss with infectious disease. Awaiting repeat culture results. PICC line has been ordered as the patient will likely require long-term IV antibiotic therapy. Suspect patient to continue with IV antibiotic therapy for 2-6 weeks. Will review blood cultures and urine culture. Will discontinue IV fluids. Monitor blood pressure closely. Social work working on skilled placement to continue antibiotic therapy. History of recent TAVR: Overall stable. Anemia of chronic disease: Will transfuse 1 unit of blood. Maintain hemoglobin above 8.0. Will check prior records. Diabetes mellitus type 2 [id number]: Continue to hold metformin. Monitor Accu-Cheks and sliding scale. Will continue to monitor closely. Prior A1c well controlled. Will check A1c. Metastatic liver disease with history of colon cancer status post chemotherapy, status post liver biopsy performed 04/05/2020: Awaiting biopsy report. Will discuss with Oncology. Will provide DVT prophylaxis-heparin. Time Spent Managing Pts Care (In Minutes): 55
[2020-04-08] MEDS ORDERED: NA CHLORIDE 0.9% 250 ML ONE (16:27)
--- NOTE | 2020-04-08 18:03 | P.PN ---
Date of Service: 04/08/20 Subjective: Patient is a 64-year-old female with past medical history of diabetes myelitis and colon cancer status post chemotherapy who presents with generalized weakness, lightheadedness, nausea, general malaise for about 2 weeks. Patient presented the ED about a week ago after she took a fall. Imaging done did not show fracture. Patient found to have leukocytosis which I have been consulted for. Abd CT showed hepatic mass, liver biopsy obtained. Patient examined at bedside. Reports still weak/lightheaded with ambulation. Denies nausea, diarrhea, dysuria and fever. Objective: Temp Pulse Resp BP Pulse Ox 97.6 F 82 18 125/78 95 04/08/20 16:00 04/08/20 16:00 04/08/20 16:00 04/08/20 16:00 04/08/20 16:00 Labs: Sodium 140, potassium 3.3, BUN 3, creatinine 0.40, albumin 2.5, WBC 12.1, hemoglobin 7.5, hematocrit 22.8 ABD/Pelvis CT 04/01: EXAM DESCRIPTION: Abdomen Pelvis W Contrast CLINICAL HISTORY: GI BLEED COMPARISON: None Available TECHNIQUE: Contiguous axial images of the abdomen and pelvis were obtained after the administration of intravenous contrast followed by reconstruction images.This exam was performed according to our departmental dose-optimization program, which includes automated exposure control, adjustment of the mA and/or kV according to patient size and/or use of iterative reconstruction technique. FINDINGS: Linear opacities of the lower lungs may represent scar versus subsegmental atelectasis. Increased opacity in the dependent portion of the lungs may represent atelectasis. There is a hiatal hernia. There is 3.2 cm mass within the right hepatic parenchyma, axial image 25, 1 cm mass at the right hepatic lobe, image 11, 2.8 cm mass adjacent to the left portal vein, and left hepatic lobe measuring 1.2 cm. There is mucosal thickening of the rectum, malignancy cannot be excluded. Area of abnormal attenuation within the mid and lower right kidney measuring approximately 6.1 cm worrisome for malignancy. Possibility of an infectious process cannot be completely excluded. Correlation with laboratory data recommended. Appendix was not visualized, there is no pericecal inflammation. There is a nonobstructive stone within the left kidney. There are gallstones within the gallbladder. The gallbladder is otherwise unremarkable by CT criteria. Deformity of the endplates and intervertebral disc space at L3-L4 compatible with discitis of unknown age. The spleen, pancreas and left kidney are otherwise within normal limits. There is no hydronephrosis Adrenal glands are within normal limits. Aorta is of normal caliber and tapering. There is no free fluid in the abdomen or pelvis. There is no bowel obstruction. IMPRESSION: Mucosal thickening of the rectum could be secondary to an infectious process/colitis. Malignancy cannot be excluded.. Hepatic masses compatible with metastatic disease. Right renal mass worrisome for malignancy. Infectious process cannot be completely excluded. Correlation with laboratory data recommended. Discitis at the L3/L4 of unknown age. Electronically signed by: Mirza Way MD 04/01/2020 10:44 PM CDT Due to temporary technical issues with the PACS/Fluency reporting system, reports are being signed by the in house radiologist without review as a courte sy to ensure prompt reporting. The interpreting radiologist is fully responsible for the content of the report. Assessment and plan: Leukocytosis UTI, urine culture shows E. Coli, sensitive to Maxipime Bacteremia secondary to Enterococcus Faecalis, sensitive to Vancomycin Recommend to continue Maxipime for total of 7 days and Vancomycin for total of 2 weeks from negative blood cultures Anemia/Thrombocytopenia, Abd/Pelvis CT shows possible metastatic disease Hepatic mass, liver biopsy obtained Protein calorie malnourished Diabetes mellitus, monitor glycemic control Will continue to monitor Patient discussed with Dr. Conklin
[2020-04-08] MEDS: HYDROCODONE/APAP 7.5/325 MG TAB PO PRN (18:52)
[2020-04-08] MEDS ORDERED: POTASSIUM CL SA 10 MEQ TAB PO ONE (20:00)
[2020-04-08] MEDS ORDERED: CEFEPIME 1 GM/VIAL IV SCH (21:00)
[2020-04-08 21:03] LABS: Hematocrit 28.6 % (36.0-45.0)
[2020-04-08] MEDS: HEPARIN 5000 UNIT/ML 1 ML VIAL SQ SCH (21:08)
[2020-04-09 04:15] LABS: Absolute Lymphocytes (CBC) 0.6 K/uL (0.7-4.9); Basophils % 0.3 % (0-1.3); Hematocrit 29.5 % (36.0-45.0); Lymphocytes % 4.1 % (15.3-44.8); MPV 7.9 fL (7.6-11.3); RBC Red Blood Cell Count 3.44 M/uL (3.86-4.86)
[2020-04-09 04:27] LABS: BUN Blood Urea Nitrogen 5 mg/dL (7-18); Bicarbonate 28 mmol/L (21-32); Glucose Level 98 mg/dL (74-106); Magnesium 1.7 mg/dL (1.8-2.4); Potassium 3.9 mmol/L (3.5-5.1); Sodium Level 139 mmol/L (136-145)
[2020-04-09 04:54] LABS: Anisocytosis 2+; Blood Morphology Comment NOTED (NOT SEEN); Platelet Estimate ADEQ; Polychromasia 1+
[2020-04-09] MEDS: INSULIN -REGULAR HUMAN 50 UNIT/0.5 ML ML SQ SCH ×4 (07:30→21:00)
[2020-04-09] MEDS: HEPARIN 5000 UNIT/ML 1 ML VIAL SQ SCH ×2 (09:00→21:46)
[2020-04-09] MEDS ORDERED: MAGNESIUM SULFATE 1 gm IVPB 1 GM/100 ML BAG IV ONE (09:00)
[2020-04-09] MEDS ORDERED: POTASSIUM CL SA 10 MEQ TAB PO ONE (09:00)
--- NOTE | 2020-04-09 10:09 | P.PN ---
Date of Service: 04/09/20 Subjective: Patient is a 64-year-old female with past medical history of diabetes myelitis and colon cancer status post chemotherapy who presents with generalized weakness, lightheadedness, nausea, general malaise for about 2 weeks. Patient presented the ED about a week ago after she took a fall. Imaging done did not show fracture. Patient found to have leukocytosis which I have been consulted for. Abd CT showed hepatic mass, liver biopsy obtained. Patient examined at bedside. Reports still weak/lightheaded with ambulation. Patient also reports pain to left calf. Objective: Temp Pulse Resp BP Pulse Ox 98.2 F 83 18 128/64 92 04/09/20 08:00 04/09/20 08:00 04/09/20 08:00 04/09/20 08:00 04/09/20 08:00 Labs: Sodium 139, potassium 3.9, BUN 5, creatinine 0.55, albumin 2.5, WBC 15.5, hemoglobin 9.7, hematocrit 29.5 ABD/Pelvis CT 04/01: EXAM DESCRIPTION: Abdomen Pelvis W Contrast CLINICAL HISTORY: GI BLEED COMPARISON: None Available TECHNIQUE: Contiguous axial images of the abdomen and pelvis were obtained after the administration of intravenous contrast followed by reconstruction images.This exam was performed according to our departmental dose-optimization program, which includes automated exposure control, adjustment of the mA and/or kV according to patient size and/or use of iterative reconstruction technique. FINDINGS: Linear opacities of the lower lungs may represent scar versus subsegmental atelectasis. Increased opacity in the dependent portion of the lungs may represent atelectasis. There is a hiatal hernia. There is 3.2 cm mass within the right hepatic parenchyma, axial image 25, 1 cm mass at the right hepatic lobe, image 11, 2.8 cm mass adjacent to the left portal vein, and left hepatic lobe measuring 1.2 cm. There is mucosal thickening of the rectum, malignancy cannot be excluded. Area of abnormal attenuation within the mid and lower right kidney measuring approximately 6.1 cm worrisome for malignancy. Possibility of an infectious process cannot be completely excluded. Correlation with laboratory data recommended. Appendix was not visualized, there is no pericecal inflammation. There is a nonobstructive stone within the left kidney. There are gallstones within the gallbladder. The gallbladder is otherwise unremarkable by CT criteria. Deformity of the endplates and intervertebral disc space at L3-L4 compatible with discitis of unknown age. The spleen, pancreas and left kidney are otherwise within normal limits. There is no hydronephrosis Adrenal glands are within normal limits. Aorta is of normal caliber and tapering. There is no free fluid in the abdomen or pelvis. There is no bowel obstruction. IMPRESSION: Mucosal thickening of the rectum could be secondary to an infectious process/colitis. Malignancy cannot be excluded.. Hepatic masses compatible with metastatic disease. Right renal mass worrisome for malignancy. Infectious process cannot be completely excluded. Correlation with laboratory data recommended. Discitis at the L3/L4 of unknown age. Electronically signed by: Mirza Way MD 04/01/2020 10:44 PM CDT Due to temporary technical issues with the PACS/Fluency reporting system, reports are being signed by the in house radiologist without review as a courtesy to ensure prompt reporting. The interpreting radiologist is fully responsible for the content of the report. Assessment and plan: Leukocytosis UTI, urine culture shows E. Coli, Maxipime day 7, repeat cultures 04/09 pending Bacteremia secondary to Enterococcus Faecalis, sensitive to Vancomycin, repeat cultures 04/07 positive, will repeat blood cultures today 04/09 Recommend to continue Maxipime for total of 7 days and Vancomycin for total of 2 weeks from negative blood cultures Anemia/Thrombocytopenia, Abd/Pelvis CT shows possible metastatic disease Hepatic mass, liver biopsy obtained Protein calorie malnourished Diabetes mellitus, monitor glycemic control Will continue to monitor Patient discussed with Dr. Conklin
[2020-04-09] MEDS: VANCOMYCIN 1.25 GM in NA CHLORIDE 0.9% 250 ML IVPB SCH (10:21)
[2020-04-09] MEDS: LIDOCAINE 4% PATCH TOP SCH (10:22)
[2020-04-09] MEDS: CEFEPIME/SWI 1gm 10 ML IV SCH ×2 (10:22→21:47)
--- NOTE | 2020-04-09 14:04 | P.PN ---
Subjective Date of Service: 04/09/20 Primary Care Provider: unknown Chief Complaint: Lightheadedness Subjective: Other (Patient doing better. Still without PICC line.) Physical Examination - Vital Signs Temperature: 97.8 F Blood Pressure: 128/68 Pulse: 80 Respirations: 18 Pulse Ox (%): 95 - Physical Exam General: Alert HEENT: Atraumatic Neck: Supple Respiratory: Clear to auscultation bilaterally, Normal air movement Cardiovascular: Normal pulses, Regular rate/rhythm Integumentary: Other (Nurse practitioner reported some tenderness to the left lower extremity calf) Neurological: Normal speech, Normal strength at 5/5 x4 extr, Normal tone - Studies Medications List Reviewed: Yes Assessment & Plan Discharge Plan: Other (prison facility) Plan to discharge in: 24 Hours Physician Review Additional Text: Impression: Septic shock secondary to UTI-urine culture positive for E coli and bacteremia with blood culture positive for Enterococcus faecalis, suspect infective endocarditis History of recent TAVR Anemia of chronic disease Diabetes mellitus type 2 [id number] Metastatic liver disease with history of colon cancer status post chemotherapy, status post liver biopsy performed 04/05/2020 Plan: Septic shock secondary to UTI-urine culture positive for E coli and bacteremia with blood culture positive for Enterococcus faecalis, suspect infective endocarditis: Blood culture still positive. Continue with antibiotic treatment. Patient to finish up UTI treatment today. Can discontinue Maxipime tomorrow. Continue with IV vancomycin. Patient still requires PICC line. Will need to continue with IV vancomycin for at least 2 weeks after blood culture is negative. Will obtain echocardiogram to evaluate for endocarditis. Will discuss with infectious disease on other possible causes. Will also discuss with cardiology. Social work working to get patient approved for skilled placement to continue IV antibiotic therapy. History of recent TAVR: Overall stable. Anemia of chronic disease: Patient transfused. Hemoglobin stable. Continue to maintain hemoglobin above 8.0. Diabetes mellitus type 2 [id number]: Continue to hold metformin. Monitor Accu-Cheks and sliding scale. Will continue to monitor closely. Prior A1c well controlled. Will check A1c. Metastatic liver disease with history of colon cancer status post chemotherapy, status post liver biopsy performed 04/05/2020: Awaiting biopsy report. Will discuss with Oncology. Will provide DVT prophylaxis-heparin. Time Spent Managing Pts Care (In Minutes): 55
[2020-04-09] MEDS: HYDROCODONE/APAP 7.5/325 MG TAB PO PRN (21:45)
[2020-04-09] MEDS: GLUCERNA SHAKE 237 ML CAN PO SCH (21:47)
[2020-04-10 04:43] LABS: Absolute Lymphocytes (CBC) 0.6 K/uL (0.7-4.9); Basophils % 0.3 % (0-1.3); Hematocrit 27.9 % (36.0-45.0); Lymphocytes % 3.9 % (15.3-44.8); MPV 7.7 fL (7.6-11.3); RBC Red Blood Cell Count 3.28 M/uL (3.86-4.86)
[2020-04-10 04:58] LABS: BUN Blood Urea Nitrogen 6 mg/dL (7-18); Bicarbonate 28 mmol/L (21-32); Glucose Level 127 mg/dL (74-106); Phosphorus 3.2 mg/dL (2.5-4.9); Potassium 3.7 mmol/L (3.5-5.1); Sodium Level 138 mmol/L (136-145)
[2020-04-10] MEDS: VANCOMYCIN/NS 1 gm 1 GM/250 ML BAG IV SCH ×2 (05:18→17:01)
[2020-04-10] MEDS: INSULIN -REGULAR HUMAN 50 UNIT/0.5 ML ML SQ SCH ×4 (07:30→21:00)
[2020-04-10] MEDS: HEPARIN 5000 UNIT/ML 1 ML VIAL SQ SCH ×2 (08:51→22:20)
[2020-04-10] MEDS: LIDOCAINE 4% PATCH TOP SCH (08:52)
[2020-04-10] MEDS: HYDROCODONE/APAP 7.5/325 MG TAB PO PRN ×3 (08:52→22:21)
[2020-04-10] MEDS: CEFEPIME/SWI 1gm 10 ML IV SCH ×2 (08:52→22:21)
[2020-04-10] MEDS: GLUCERNA SHAKE 237 ML CAN PO SCH ×2 (08:53→22:22)
[2020-04-10] MEDS ORDERED: POTASSIUM CL SA 10 MEQ TAB PO ONE (09:00)
--- NOTE | 2020-04-10 11:50 | RAD REPORT ---
EXAM DESCRIPTION: US - Extremity Venous Uni Ltd - 04/10/2020 10:50 am CLINICAL HISTORY: Left calf pain, evaluate for DVT COMPARISON: None. TECHNIQUE: Real-time sonographic evaluation of the left lower extremity deep venous system was perfo rmed. FINDINGS: Normal compressibility, flow augmentation, phasic flow and spontaneous flow are identified in the left lower extremity common femoral, superficial femoral, popliteal and posterior tibial vein s. No intraluminal filling defects seen. During the course of the examination echogenic material was observed in the popliteal artery lumen wa s narrowed. No flow could be seen in the posterior tibial artery. Monophasic waveform pattern seen in the common femoral artery. Significant atherosclerotic changes are seen in the walsh. IMPRESSION: No DVT in the left lower extremity. Thrombus in the popliteal artery is evident and no flow could be seen in the posterior tibial artery at the ankle. Correlation is needed with any evidence for arterial symptoms. This was not a full jim rial examination.
--- NOTE | 2020-04-10 13:12 | ECHO ---
HEIGHT: 5 ft 5 in WEIGHT: 123 lb 0 oz DATE OF STUDY: 04/10/[address]: Rafi Bates DO 2-DIMENSIONAL: YES M.MODE: YES DOPPLER: YES COLOR FLOW: YES TDS: NO PORTABLE: NO DEFINITY: NO BUBBLE STUDY: NO DIAGNOSIS: ENDOCARDITIS CARDIAC HISTORY: CATHERIZATION: NO SURGERY: NO PROSTHETIC VALVE: NO PACEMAKER: NO MEASUREMENTS (cm) DIASTOLIC (NORMALS) SYSTOLIC (NORMALS) IVSd 1.1 (0.6-1.2) LA Diam (1.9-4.0) LVEF 51% LVIDd 4.1 (3.5-5.7) LVIDs 3.0 (2.0-3.5) %FS 26% LVPWd 0.9 (0.6-1.2) Ao Diam 2.4 (2.0-3.7) 2 DIMENSIONAL ASSESSMENT: RIGHT ATRIUM: NORMAL LEFT ATRIUM: NOMRAL RIGHT VENTRICLE: NORMAL LEFT VENTRICLE: NORMAL TRICUSPID VALVE: NORMAL MITRAL VALVE: MITRAL ANNULAR CALCIFICATION PULMONIC VALVE: NORMAL AORTIC VALVE: STENOTIC PERICARDIAL EFFUSION: TRACE AORTIC ROOT: NORMAL LEFT VENTRICULAR WALL MOTION: NORMAL. DOPPLER/COLOR FLOW: SEVERE AORTIC STENOSIS. AREA .9 CENTIMETER SQUARED. COMMENTS: SEVERE AORTIC STENOSIS - AREA 0.9 CENTIMETERS SQUARED. TRACE OF PERICARDIAL EFFUSION. CANNOT RULE OUT VEGETATION. SUGGEST A TRANSESOPHAGEAL ECHOCARDIOGRAM IF CLINIALLY SUSPECTED. NORMAL EJECTION FRACTION. TECHNOLOGIST: CINDY VALDEZ
--- NOTE | 2020-04-10 14:02 | P.PN ---
Subjective Date of Service: 04/10/20 Primary Care Provider: unknown Chief Complaint: Lightheadedness Subjective: Doing well Physical Examination - Vital Signs Temperature: 97.7 F Blood Pressure: 110/66 Pulse: 82 Respirations: 18 Pulse Ox (%): 94 - Physical Exam General: Alert HEENT: Atraumatic Neck: Supple Respiratory: Clear to auscultation bilaterally, Normal air movement Cardiovascular: Normal pulses, Regular rate/rhythm Gastrointestinal: Normal bowel sounds Neurological: Normal speech, Normal strength at 5/5 x4 extr, Normal tone, Normal affect - Studies Medications List Reviewed: Yes Assessment & Plan Discharge Plan: Other (Skilled placement facility) Plan to discharge in: 48 Hours Physician Review Additional Text: Impression: Septic shock secondary to UTI-urine culture positive for E coli and bacteremia with blood culture positive for Enterococcus faecalis, suspect infective endocarditis versus etiology from rectal region History of recent TAVR with noted severe aortic stenosis Anemia of chronic disease Diabetes mellitus type 2 [id number] Metastatic liver disease with history of colon cancer status post chemotherapy, status post liver biopsy performed 04/05/2020 Plan: Septic shock secondary to UTI-urine culture positive for E coli and bacteremia with blood culture positive for Enterococcus faecalis, suspect infective endocarditis versus etiology from rectal region: Blood cultures reviewed. Awaiting most recent blood cultures. Will continue with IV vancomycin. Case discussed at length with infectious disease. Infectious disease suspects bacteremia related to colitis. Original CT scan of the lower rectal region showed mucosal thickening of the rectum. Malignancy cannot be ruled out. Will discuss with Oncology. Continue IV vancomycin. Patient will need at least 2 weeks of IV and vancomycin after blood culture negative. Echocardiogram shows significant aortic stenosis. Case discussed with cardiology. Patient may require transesophageal echocardiogram for further evaluation. Cardiology did mention this will not change the course or need for antibiotic therapy. Therefore will continue with process of IV antibiotic therapy. PICC line to be placed today. Continue to pursue skilled placement verses long-term acute care facility placement. Will discuss with social work. History of recent TAVR with noted severe aortic stenosis: Echocardiogram shows severe aortic stenosis. Normal ejection fraction noted. Trace per car fusion no nicky. Patient may require transesophageal echo in the future. Will monitor closely. Case discussed at length with cardiology. Continue as above Anemia of chronic disease: Patient transfused. Hemoglobin stable. Continue to maintain hemoglobin above 8.0. Diabetes mellitus type 2 [id number]: Continue to hold metformin. Monitor Accu-Cheks and sliding scale. Will continue to monitor closely. Prior A1c well controlled. Will check A1c. Metastatic liver disease with history of colon cancer status post chemotherapy, status post liver biopsy performed 04/05/2020: Awaiting biopsy report. Will discuss with Oncology. Will provide DVT prophylaxis-heparin. Original CT scan showed mucosal thickening of the rectum. This may be infectious process versus colitis versus malignancy. Hepatic masses compatible with metastatic disease. Will discuss with Oncology. Discitis at the L3/L4 of unknown age. Time Spent Managing Pts Care (In Minutes): 55
--- NOTE | 2020-04-10 14:41 | P.PN ---
Date of Service: 04/10/20 Subjective: Patient is a 64-year-old female with past medical history of diabetes myelitis and colon cancer status post chemotherapy who presents with generalized weakness, lightheadedness, nausea, general malaise for about 2 weeks. Patient presented the ED about a week ago after she took a fall. Imaging done did not show fracture. Patient found to have leukocytosis which I have been consulted for. Abd CT showed hepatic mass, liver biopsy obtained. Patient examined at bedside. Patient has been up with physical therapy. Reports still weak with ambulation and having pain to left calf. Objective: Temp Pulse Resp BP Pulse Ox 97.7 F 82 18 110/66 94 04/10/20 14:02 04/10/20 14:02 04/10/20 14:02 04/10/20 14:02 04/10/20 14:02 Labs: Sodium 138, potassium 3.7, BUN 6, creatinine 0.51, albumin 2.5, WBC 14.4, hemoglobin 9.0, hematocrit 27.9 ABD/Pelvis CT 04/01: EXAM DESCRIPTION: Abdomen Pelvis W Contrast CLINICAL HISTORY: GI BLEED COMPARISON: None Available TECHNIQUE: Contiguous axial images of the abdomen and pelvis were obtained after the administration of intravenous contrast followed by reconstruction images.This exam was performed according to our departmental dose-optimization program, which includes automated exposure control, adjustment of the mA and/or kV according to patient size and/or use of iterative reconstruction technique. FINDINGS: Linear opacities of the lower lungs may represent scar versus subsegmental atelectasis. Increased opacity in the dependent portion of the lungs may represent atelectasis. There is a hiatal hernia. There is 3.2 cm mass within the right hepatic parenchyma, axial image 25, 1 cm mass at the right hepatic lobe, image 11, 2.8 cm mass adjacent to the left portal vein, and left hepatic lobe measuring 1.2 cm. There is mucosal thickening of the rectum, malignancy cannot be excluded. Area of abnormal attenuation within the mid and lower right kidney measuring approximately 6.1 cm worrisome for malignancy. Possibility of an infectious process cannot be completely excluded. Correlation with laboratory data r ecommended. Appendix was not visualized, there is no pericecal inflammation. There is a nonobstructive stone within the left kidney. There are gallstones within the gallbladder. The gallbladder is otherwise unremarkable by CT criteria. Deformity of the endplates and intervertebral disc space at L3-L4 compatible with discitis of unknown age. The spleen, pancreas and left kidney are otherwise within normal limits. There is no hydronephrosis Adrenal glands are within normal limits. Aorta is of normal caliber and tapering. There is no free fluid in the abdomen or pelvis. There is no bowel obstruction. IMPRESSION: Mucosal thickening of the rectum could be secondary to an infectious process/colitis. Malignancy cannot be excluded.. Hepatic masses compatible with metastatic disease. Right renal mass worrisome for malignancy. Infectious process cannot be completely excluded. Correlation with laboratory data recommended. Discitis at the L3/L4 of unknown age. Electronically signed by: Mirza Way MD 04/01/2020 10:44 PM CDT Due to temporary technical issues with the PACS/Fluency reporting system, reports are being signed by the in house radiologist without review as a courtesy to ensure prompt reporting. The interpreting radiologist is fully responsible for the content of the report. Assessment and plan: Leukocytosis UTI, urine culture shows E. Coli, finished 7 days of Maxipime, can discontinue Bacteremia secondary to Enterococcus Faecalis, most likely from rectosigmoid area, sensitive to Vancomycin Recommend to continue Vancomycin for total of 2 weeks from negative blood cultures Anemia/Thrombocytopenia, Abd/Pelvis CT shows possible metastatic disease Hepatic mass, liver biopsy obtained Protein calorie malnourished Diabetes mellitus, monitor glycemic control Will continue to monitor Patient discussed with Dr. Conklin
[2020-04-11 06:30] LABS: Absolute Lymphocytes (CBC) 0.8 K/uL (0.7-4.9); Basophils % 0.7 % (0-1.3); Hematocrit 28.9 % (36.0-45.0); Lymphocytes % 5.9 % (15.3-44.8); MPV 8.2 fL (7.6-11.3); RBC Red Blood Cell Count 3.39 M/uL (3.86-4.86)
[2020-04-11 06:34] LABS: BUN Blood Urea Nitrogen 6 mg/dL (7-18); Bicarbonate 28 mmol/L (21-32); Glucose Level 112 mg/dL (74-106); Magnesium 2.1 mg/dL (1.8-2.4); Potassium 3.8 mmol/L (3.5-5.1); Sodium Level 139 mmol/L (136-145)
[2020-04-11] MEDS: VANCOMYCIN/NS 1 gm 1 GM/250 ML BAG IV SCH ×2 (06:43→18:00)
[2020-04-11] MEDS: INSULIN -REGULAR HUMAN 50 UNIT/0.5 ML ML SQ SCH ×4 (07:30→21:00)
--- NOTE | 2020-04-11 08:36 | RAD REPORT ---
EXAM DESCRIPTION: RAD - Chest Single View - 04/11/2020 3:21 am CLINICAL HISTORY: Device placement PICC line placement IMPRESSION: PICC line with its tip in the distal superior vena cava
[2020-04-11] MEDS ORDERED: POTASSIUM CL SA 10 MEQ TAB PO ONE (09:00)
[2020-04-11] MEDS: GLUCERNA SHAKE 237 ML CAN PO SCH ×2 (09:00→21:07)
[2020-04-11] MEDS: LIDOCAINE 4% PATCH TOP SCH (09:21)
[2020-04-11] MEDS: HEPARIN 5000 UNIT/ML 1 ML VIAL SQ SCH ×2 (09:23→21:07)
[2020-04-11] MEDS: CEFEPIME/SWI 1gm 10 ML IV SCH ×2 (09:24→21:06)
--- NOTE | 2020-04-11 09:40 | P.PN ---
Date of Service: 04/11/20 Subjective: Patient is a 64-year-old female with past medical history of diabetes myelitis and colon cancer status post chemotherapy who presents with generalized weakness, lightheadedness, nausea, general malaise for about 2 weeks. Patient presented the ED about a week ago after she took a fall. Imaging done did not show fracture. Patient found to have leukocytosis which I have been consulted for. Abd CT showed hepatic mass, liver biopsy obtained. Patient examined at bedside. No new changes. Objective: Temp Pulse Resp BP Pulse Ox 97.9 F 75 16 125/76 94 04/11/20 04:00 04/11/20 04:00 04/11/20 04:00 04/11/20 04:00 04/11/20 04:00 Labs: Sodium 139, potassium 3.8, BUN 6, creatinine 0.51, albumin 2.5, WBC 14.3, hemoglobin 9.4, hematocrit 28.9 ABD/Pelvis CT 04/01: EXAM DESCRIPTION: Abdomen Pelvis W Contrast CLINICAL HISTORY: GI BLEED COMPARISON: None Available TECHNIQUE: Contiguous axial images of the abdomen and pelvis were obtained after the administration of intravenous contrast followed by reconstruction images.This exam was performed according to our departmental dose-optimization program, which includes automated exposure control, adjustment of the mA and/or kV according to patient size and/or use of iterative reconstruction technique. FINDINGS: Linear opacities of the lower lungs may represent scar versus subsegmental atelectasis. Increased opacity in the dependent portion of the lungs may represent atelectasis. There is a hiatal hernia. There is 3.2 cm mass within the right hepatic parenchyma, axial image 25, 1 cm mass at the right hepatic lobe, image 11, 2.8 cm mass adjacent to the left portal vein, and left hepatic lobe measuring 1.2 cm. There is mucosal thickening of the rectum, malignancy cannot be excluded. Area of abnormal attenuation within the mid and lower right kidney measuring approximately 6.1 cm worrisome for malignancy. Possibility of an infectious process cannot be completely excluded. Correlation with laboratory data recommended. Appendix was not visualized, there is no pericecal inflammation. There is a nonobstructive stone within the left kidney. There are gallstones within the gallbladder. The gallbladder is otherwise unremarkable by CT criteria. Deformity of the endplates and intervertebral disc space at L3-L4 compatible with discitis of unknown age. The spleen, pancreas and left kidney are otherwise within normal limits. There is no hydronephrosis Adrenal glands are within normal limits. Aorta is of normal caliber and tapering. There is no free fluid in the abdomen or pelvis. There is no bowel obstruction. IMPRESSION: Mucosal thickening of the rectum could be secondary to an infectious process/colitis. Malignancy cannot be excluded.. Hepatic masses compatible with metastatic disease. Right renal mass worrisome for malignancy. Infectious process cannot be completely excluded. Correlation with laboratory data recommended. Discitis at the L3/L4 of unknown age. Extremity venous study LLE 04/09: EXAM DESCRIPTION: US - Extremity Venous Uni Ltd - 04/10/2020 10:50 am CLINICAL HISTORY: Left calf pain, evaluate for DVT COMPARISON: None. TECHNIQUE: Real-time sonographic evaluation of the left lower extremity deep venous system was performed. FINDINGS: Normal compressibility, flow augmentation, phasic flow and spontaneous flow are identified in the left lower extremity common femoral, superficial femoral, popliteal and posterior tibial veins. No intraluminal filling defects seen. During the course of the examination echogenic material was observed in the popliteal artery lumen was narrowed. No flow could be seen in the posterior ti bial artery. Monophasic waveform pattern seen in the common femoral artery. Significant atherosclerotic changes are seen in the walsh. IMPRESSION: No DVT in the left lower extremity. Thrombus in the popliteal artery is evident and no flow could be seen in the posterior tibial artery at the ankle. Correlation is needed with any evidence for arterial symptoms. This was not a full arterial examination. ROS: General: Awake, alert, oriented CV: S1,S2 RESP: Good breath sounds ABD: nontender, bowel sounds present Extremities: Tenderness to LLE, no edema warmth or swelling Assessment and plan: Leukocytosis UTI, urine culture shows E. Coli, finished 8 days of Maxipime, can discontinue Bacteremia secondary to Enterococcus Faecalis, most likely from rectosigmoid area, Vancomycin day 8 Recommend to continue Vancomycin for total of 2 weeks from negative blood cultures Anemia/Thrombocytopenia, Abd/Pelvis CT shows possible metastatic disease Hepatic mass, liver biopsy obtained Protein calorie malnourished Diabetes mellitus, monitor glycemic control Patient would benefit from LTAC facility or IV antibiotics Will continue to monitor Patient discussed with Dr. Conklin
--- NOTE | 2020-04-11 13:15 | P.PN ---
Subjective Date of Service: 04/11/20 Primary Care Provider: unknown Chief Complaint: Lightheadedness Subjective: Improving Physical Examination - Vital Signs Temperature: 97.7 F Blood Pressure: 131/77 Pulse: 84 Respirations: 18 Pulse Ox (%): 93 - Physical Exam General: Alert HEENT: Atraumatic Neck: Supple Respiratory: Clear to auscultation bilaterally, Normal air movement Cardiovascular: Normal pulses, Regular rate/rhythm Gastrointestinal: Normal bowel sounds Neurological: Normal speech, Normal strength at 5/5 x4 extr, Normal tone - Studies Medications List Reviewed: Yes Assessment & Plan Discharge Plan: LTAC Plan to discharge in: 24 Hours Physician Review Additional Text: Impression: Septic shock secondary to UTI-urine culture positive for E coli and bacteremia with blood culture positive for Enterococcus faecalis, suspect infective endocarditis versus etiology from rectal region History of recent TAVR with noted severe aortic stenosis Anemia of chronic disease Diabetes mellitus type 2 [id number] Metastatic liver disease with history of colon cancer status post chemotherapy, status post liver biopsy performed 04/05/2020 Plan: Septic shock secondary to UTI-urine culture positive for E coli and bacteremia with blood culture positive for Enterococcus faecalis, suspect infective endocarditis versus etiology from rectal region: Awaiting most recent blood culture. Continue IV antibiotic therapy vancomycin for total of 2 weeks. Also getting Maxipime for UTI. Will discuss with infectious disease on when to discontinue Maxipime. Repeat urine culture negative. I suspect this can be possibly discontinued. Due to complexity of her blood cultures, will recommend long-term acute care facility placement. Patient in agreement. PICC line now in place. Patient will also benefit with physical therapy as well. Infectious disease suspects bacteremia related to colitis. Original CT scan of the lower rectal region showed mucosal thickening of the rectum. Malignancy cannot be ruled out. Will discuss with Oncology. She apparently had been seen for colon cancer in [facility]. Her last colonoscopy was about 2 years ago. She has not followed up with Oncology in the area. Will discuss with social work to help with transfer to long-term acute care facility. History of recent TAVR with noted severe aortic stenosis: Echocardiogram shows severe aortic stenosis. Normal ejection fraction noted. Trace pericardial noted. Patient may require transesophageal echo in the future. No need for intervention at this time. Will monitor closely. Case discussed at length with cardiology. Continue as above Anemia of chronic disease: Patient transfused. Hemoglobin stable. Continue to maintain hemoglobin above 8.0. Diabetes mellitus type 2 [id number]: Continue to hold metformin. B lood sugars well controlled with sliding scale. Monitor Accu-Cheks and sliding scale. Will continue to monitor closely. Prior A1c well controlled. Will check A1c. Metastatic liver disease with history of colon cancer status post chemotherapy, status post liver biopsy performed 04/05/2020: Awaiting biopsy report. Will discuss with Oncology. Will provide DVT prophylaxis-heparin. Original CT scan showed mucosal thickening of the rectum. This may be infectious process versus colitis versus malignancy. Hepatic masses compatible with metastatic disease. Patient will need colonoscopy as an outpatient. Last colonoscopy 2 years ago. Time Spent Managing Pts Care (In Minutes): 55
[2020-04-11] MEDS: HYDROCODONE/APAP 7.5/325 MG TAB PO PRN (21:24)
[2020-04-12] MEDS: VANCOMYCIN/NS 1 gm 1 GM/250 ML BAG IV SCH ×2 (05:00→18:23)
[2020-04-12 06:16] LABS: BUN Blood Urea Nitrogen 6 mg/dL (7-18); Bicarbonate 30 mmol/L (21-32); Glucose Level 113 mg/dL (74-106); Potassium 3.5 mmol/L (3.5-5.1); Sodium Level 139 mmol/L (136-145)
[2020-04-12] MEDS: INSULIN -REGULAR HUMAN 50 UNIT/0.5 ML ML SQ SCH ×4 (07:30→20:00)
--- NOTE | 2020-04-12 08:14 | P.PN ---
Date of Service: 04/12/20 Subjective: Patient is a 64-year-old female with past medical history of diabetes myelitis and colon cancer status post chemotherapy who presents with generalized weakness, lightheadedness, nausea, general malaise for about 2 weeks. Patient presented the ED about a week ago after she took a fall. Imaging done did not show fracture. Patient found to have leukocytosis which I have been consulted for. Abd CT showed hepatic mass, liver biopsy obtained. Patient examined at bedside. No new changes. Objective: Temp Pulse Resp BP Pulse Ox 97.6 F 80 18 130/70 93 04/12/20 04:00 04/12/20 04:00 04/12/20 04:00 04/12/20 04:00 04/12/20 04:00 Labs: Sodium 139, potassium 3.5, BUN 6, creatinine 0.38, albumin 2.5, WBC 14.3, hemoglobin 9.4, hematocrit 28.9 ABD/Pelvis CT 04/01: EXAM DESCRIPTION: Abdomen Pelvis W Contrast CLINICAL HISTORY: GI BLEED COMPARISON: None Available TECHNIQUE: Contiguous axial images of the abdomen and pelvis were obtained after the administration of intravenous contrast followed by reconstruction images.This exam was performed according to our departmental dose-optimization program, which includes automated exposure control, adjustment of the mA and/or kV according to patient size and/or use of iterative reconstruction technique. FINDINGS: Linear opacities of the lower lungs may represent scar versus subsegmental atelectasis. Increased opacity in the dependent portion of the lungs may represent atelectasis. There is a hiatal hernia. There is 3.2 cm mass within the right hepatic parenchyma, axial image 25, 1 cm mass at the right hepatic lobe, image 11, 2.8 cm mass adjacent to the left portal vein, and left hepatic lobe measuring 1.2 cm. There is mucosal thickening of the rectum, malignancy cannot be excluded. Area of abnormal attenuation within the mid and lower right kidney measuring approximately 6.1 cm worrisome for malignancy. Possibility of an infectious process cannot be completely excluded. Correlation with laboratory data recommended. Appendix was not visualized, there is no pericecal inflammation. There is a nonobstructive stone within the left kidney. There are gallstones within the gallbladder. The gallbladder is otherwise unremarkable by CT criteria. Deformity of the endplates and intervertebral disc space at L3-L4 compatible with discitis of unknown age. The spleen, pancreas and left kidney are otherwise within normal limits. There is no hydronephrosis Adrenal glands are within normal limits. Aorta is of normal caliber and tapering. There is no free fluid in the abdomen or pelvis. There is no bowel obstruction. IMPRESSION: Mucosal thickening of the rectum could be secondary to an infectious process/colitis. Malignancy cannot be excluded.. Hepatic masses compatible with metastatic disease. Right renal mass worrisome for malignancy. Infectious process cannot be completely excluded. Correlation with laboratory data recommended. Discitis at the L3/L4 of unknown age. Extremity venous study LLE 04/09: EXAM DESCRIPTION: US - Extremity Venous Uni Ltd - 04/10/2020 10:50 am CLINICAL HISTORY: Left calf pain, evaluate for DVT COMPARISON: None. TECHNIQUE: Real-time sonographic evaluation of the left lower extremity deep venous system was performed. FINDINGS: Normal compressibility, flow augmentation, phasic flow and spontaneous flow are identified in the left lower extremity common femoral, superficial femoral, popliteal and posterior tibial veins. No intraluminal filling defects seen. During the course of the examination echogenic material was observed in the popliteal artery lumen was narrowed. No flow could be seen in the posterior ti bial artery. Monophasic waveform pattern seen in the common femoral artery. Significant atherosclerotic changes are seen in the walsh. IMPRESSION: No DVT in the left lower extremity. Thrombus in the popliteal artery is evident and no flow could be seen in the posterior tibial artery at the ankle. Correlation is needed with any evidence for arterial symptoms. This was not a full arterial examination. ROS: General: Awake, alert, oriented CV: S1,S2 RESP: Good breath sounds ABD: nontender, bowel sounds present Extremities: Tenderness to LLE improving, no edema warmth or swelling Assessment and plan: Leukocytosis UTI, urine culture shows E. Coli, finished 9 days of Maxipime, can discontinue Bacteremia secondary to Enterococcus Faecalis, most likely from rectosigmoid area Recommend to continue Vancomycin for total of 2 weeks from negative blood cultures on 04/10, Vancomycin day 3 Anemia/Thrombocytopenia, Abd/Pelvis CT shows possible metastatic disease Hepatic mass, liver biopsy obtained Protein calorie malnourished Diabetes mellitus, monitor glycemic control Patient would benefit from LTAC facility or IV antibiotics Will continue to monitor Patient discussed with Dr. Conklin
[2020-04-12] MEDS: HEPARIN 5000 UNIT/ML 1 ML VIAL SQ SCH ×2 (08:49→20:14)
[2020-04-12] MEDS: CEFEPIME/SWI 1gm 10 ML IV SCH (08:49)
[2020-04-12] MEDS: LIDOCAINE 4% PATCH TOP SCH (08:50)
[2020-04-12] MEDS: GLUCERNA SHAKE 237 ML CAN PO SCH ×2 (08:50→20:14)
[2020-04-12] MEDS ORDERED: POTASSIUM CL SA 10 MEQ TAB PO ONE (09:00)
--- NOTE | 2020-04-12 09:38 | P.PN ---
Subjective Date of Service: 04/12/20 Primary Care Provider: unknown Chief Complaint: Lightheadedness Subjective: Doing well Physical Examination - Vital Signs Temperature: 98.4 F Blood Pressure: 136/72 Pulse: 83 Respirations: 16 Pulse Ox (%): 92 - Physical Exam General: Alert, Cooperative HEENT: Atraumatic Neck: Supple Respiratory: Clear to auscultation bilaterally Cardiovascular: Normal pulses Neurological: Normal speech, Normal strength at 5/5 x4 extr, Normal tone - Studies Medications List Reviewed: Yes Assessment & Plan Discharge Plan: LTAC Plan to discharge in: 24 Hours Physician Review Additional Text: Impression: Septic shock secondary to UTI-urine culture positive for E coli and bacteremia with blood culture positive for Enterococcus faecalis, suspect infective endo carditis versus etiology from rectal region History of recent TAVR with noted severe aortic stenosis Anemia of chronic disease Diabetes mellitus type 2 [id number] Metastatic liver disease with history of colon cancer status post chemotherapy, status post liver biopsy performed 04/05/2020 Plan: Septic shock secondary to UTI-urine culture positive for E coli and bacteremia with blood culture positive for Enterococcus faecalis, suspect infective endocarditis versus etiology from rectal region: Most recent blood culture negative. Continue IV antibiotic therapy vancomycin for 2 weeks. Will consider discontinuing Maxipime as patient completed treatment for UTI. Due to complexity of medical problems, will recommend long-term acute care facility placement to address multiple issues. Patient in agreement. PICC line now in place. Patient will also benefit with physical therapy as well. Infectious disease suspects bacteremia related to colitis. Original CT scan of the lower rectal region showed mucosal thickening of the rectum. Malignancy cannot be ruled out. Will discuss with Oncology. She apparently had been seen for colon cancer in [facility]. Her last colonoscopy was about 2 years ago. She has not followed up with Oncology in the area. Awaiting liver biopsy pathology to provide oncology and plan of care. Will discuss with social work to help with transfer to long-term acute care facility. History of recent TAVR with noted severe aortic stenosis: Echocardiogram shows severe aortic stenosis. Normal ejection fraction noted. Trace pericardial noted. Patient may require transesophageal echo in the future. No need for intervention at this time. Will monitor closely. Case discussed at length with cardiology. Continue as above Anemia of chronic disease: Patient transfused. Hemoglobin stable. Continue to maintain hemoglobin above 8.0. Diabetes mellitus type 2 [id number]: Continue to hold metformin. Blood sugars well controlled with sliding scale. Monitor Accu-Cheks and sliding scale. Will continue to monitor closely. Prior A1c well controlled. Will check A1c. Metastatic liver disease with history of colon cancer status post chemotherapy, status post liver biopsy performed 04/05/2020: Awaiting biopsy report. Will discuss with Oncology. Will provide DVT prophylaxis-heparin. Original CT scan showed mucosal thickening of the rectum. This may be infectious process versus colitis versus malignancy. Hepatic masses compatible with metastatic disease. Patient will need colonoscopy as an outpatient. Last colonoscopy 2 years ago. Time Spent Managing Pts Care (In Minutes): 55
--- NOTE | 2020-04-12 11:02 | P.DS ---
Admission Date: 04/02/20 Discharge Date: 04/12/20 Primary Care Provider: unknown Disposition: TRANSFER TO SNF - MEDICAL Discharge Condition: GOOD Reason for Admission: Lightheadedness Consultations: Radiology-Dr. Khan Infectious disease-Dr. Conklin Procedures: CT Head: FINDINGS: An intracranial bleed is not seen . The ventricles are normal in caliber. No extra-axial fluid collection is noted. 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 . Mild low-density within deep and subcortical white matter probably ischemic changes secondary to small vessel disease Fluid within the sinuses/ mastoids is not seen. IMPRESSION: No acute intracranial abnormality is seen. CT scan: FINDINGS: Linear opacities of the lower lungs may represent scar versus subsegmental atelectasis. Increased opacity in the dependent portion of the lungs may represent atelectasis. There is a hiatal hernia. There is 3.2 cm mass within the right hepatic parenchyma, axial image 25, 1 cm mass at the right hepatic lobe, image 11, 2.8 cm mass adjacent to the left portal vein, and left hepatic lobe measuring 1.2 cm. There is mucosal thickening of the rectum, malignancy cannot be excluded. Area of abnormal attenuation within the mid and lower right kidney measuring approximately 6.1 cm worrisome for malignancy. Possibility of an infectious process cannot be completely excluded. Correlation with laboratory data recommended. Appendix was not visualized, there is no pericecal inflammation. There is a nonobstructive stone within the left kidney. There are gallstones within the gallbladder. The gallbladder is otherwise unremarkable by CT criteria. Deformity of the endplates and intervertebral disc space at L3-L4 compatible with discitis of unknown age. The spleen, pancreas and left kidney are otherwise within normal limits. There is no hydronephrosis Adrenal glands are within normal limits. Aorta is of normal caliber and tapering. There is no free fluid in the abdomen or pelvis. There is no bowel obstruction. IMPRESSION: Mucosal thickening of the rectum could be secondary to an infe ctious process/colitis. Malignancy cannot be excluded.. Hepatic masses compatible with metastatic disease. Right renal mass worrisome for malignancy. Infectious process cannot be completely excluded. Correlation with laboratory data recommended. Discitis at the L3/L4 of unknown age. Venous doppler: FINDINGS: Normal compressibility, flow augmentation, phasic flow and spontan eous flow are identified in the left lower extremity common femoral, superficial femoral, popliteal and posterior tibial veins. No intraluminal filling defects seen. During the course of the examination echogenic material was observed in the popliteal artery lumen was narrowed. No flow could be seen in the posterior tibial artery. Monophasic waveform pattern seen in the common femoral artery. Significant atherosclerotic changes are seen in the walsh. IMPRESSION: No DVT in the left lower extremity. Thrombus in the popliteal artery is evident and no flow could be seen in the posterior tibial artery at the ankle. Correlation is needed with any evidence for arterial symptoms. This was not a full arterial examination. ECHO: EF 51% FINDINGS: Normal compressibility, flow augmentation, phasic flow and spontaneous flow are identified in the left lower extremity common femoral, superficial femoral, popliteal and posterior tibial veins. No intraluminal filling defects seen. During the course of the examination echogenic material was observed in the popliteal artery lumen was narrowed. No flow could be seen in the posterior tibial artery. Monophasic waveform pattern seen in the common femoral artery. Significant atherosclerotic changes are seen in the walsh. IMPRESSION: No DVT in the left lower extremity. Thrombus in the popliteal artery is evident and no flow could be seen in the posterior tibial artery at the ankle. Correlation is needed with any evidence for arterial symptoms. This was not a full arterial examination. Medical Problem List: Septic shock secondary to UTI-urine culture positive for E coli and bacteremia with blood culture positive for Enterococcus faecalis, suspect infective endocarditis versus etiology from rectal region History of recent TAVR with noted severe aortic stenosis Anemia of chronic disease Diabetes mellitus type 2 [id number] Metastatic liver disease with history of colon cancer status post chemotherapy, status post liver biopsy performed 04/05/2020 PVD with thrombus in the popliteal artery Right renal mass 6 cm likely malignant Chronic back pain Brief History of Present Illness: 64-year-old female presented with weakness, dizziness. Patient found to have UTI with sepsis. Patient admitted for further evaluation and treatment. Hospital Course: Patient presented with septic shock secondary to UTI and bacteremia. Urine culture was positive for E coli. Blood culture positive for enterococcus faecalis. Infectious Disease was consulted. Patient was placed on vancomycin and Maxipime. Initial CT scan showed lower rectal region mucosa thickening of the rectum. Patient with history of colon cancer. Infectious Disease suspects bacteremia likely related to this area. Patient had been seen in [facility] by oncology. Her last colonoscopy was 2 years ago. She has not followed up in the area. CT scan also revealed hepatic masses suspicious for metastatic disease. Liver biopsy was performed during her stay. Pathology pending at this time. PICC line was placed as the patient would require long-term IV antibiotic therapy. 2 post blood cultures were positive. A 3rd blood culture was finally negative. Patient has received treatment for UTI. No need for further Maxipime. Infectious Disease recommends to continue IV vancomycin for 2 weeks. Recommend to recheck blood culture at that time. If negative vancomycin and PICC line can be discontinued. Currently IV vancomycin 1 g twice daily is ordered. Patient will continue with IV antibiotic therapy at [facility]. I will consult Dr. Saldivar to establish care and to follow her at the [facility]. He will continue to manage the vancomycin. Recommend vanc trough to be obtained prior to the 4th dose and lab-BMP twice a week. Further adjustment and monitoring can be done by Dr. Saldivar. Concerning the metastatic liver disease with possible reoccurrence of colon cancer. Liver biopsy done on 04/05/2020. Pathology pending at this time. If abnormal will recommend to establish care with Oncology locally to further address. Patient will likely require colonoscopy as an outpatient to further address. Patient also has a right renal mass 6 cm in size. This is worrisome for cancer. This will need to be further evaluated as an outpatient. Patient will likely require Urology evaluation and possible surgery. This can be further addressed by oncology as an outpatient for plan of care once liver pathology reported. History of TAVR. Echocardiogram shows normal ejection fraction but severe aortic stenosis noted. Trace pericardial fusion noted. Case discussed with cardiology. LINDA would be recommended to evaluate for endocarditis but since the patient is on antibiotic therapy there is no need for that at this time. Recommend to recheck echocardiogram in 1 month to monitor her progress. Recommend follow up with cardiology as an outpatient to further address her severe aortic stenosis. Patient may continue with a 1500 fluid restriction. Patient will likely require CV surgery evaluation as an outpatient to further address. this can be done with the help of Cardiology as an outpatient. Patient with anemia chronic disease. Patient was transfused in her stay. This is overall stable. Recommend to monitor CBC closely. Patient may continue with multi vitamin daily. Patient with diabetes mellitus type 2. Patient previously on metformin. This has been held. Blood sugars well controlled at this time with diet. Recommend to discontinue metformin at this time. Continue to monitor blood sugars at least twice daily. Recommend to maintain blood sugars less 140 fasting and less 200 after meals. If blood sugars remain above 200 then metformin can be restarted. This can be further monitored and addressed by PCP. Patient also had venous Doppler to the lower extremity. Thrombus in the popliteal artery is evident. Patient likely with PVD. Are tear Doppler performed to further evaluate. Will start aspirin 81 mg daily. This can be further addressed by CV surgery. Patient with chronic pain. Will provide medication at discharge Vital Signs/Physical Exam: Temp Pulse Resp BP Pulse Ox 98.4 F 83 16 136/72 92 04/12/20 09:38 04/12/20 09:38 04/12/20 09:38 04/12/20 09:38 04/12/20 09:38 General: Alert, In no apparent distress, Oriented x3, Cooperative HEENT: Atraumatic Neck: Supple Respiratory: Clear to auscultation bilaterally, Normal air movement Cardiovascular: Normal pulses, Regular rate/rhythm Gastrointestinal: Normal bowel sounds, No masses, No rebound, No guarding Neurological: Normal speech, Normal strength at 5/5 x4 extr, Normal tone, Normal affect Laboratory Data at Discharge: WBC 14.3 K/uL (4.3-10.9) H 04/11/20 05:48 Hgb 9.4 g/dL (12.0-15.0) L 04/11/20 05:48 Hct 28.9 % (36.0-45.0) L 04/11/20 05:48 Plt Count 179 K/uL (152-406) 04/11/20 05:48 PT 13.3 SECONDS (9.5-12.5) H 04/05/20 04:29 INR 1.13 04/05/20 04:29 APTT 34.0 SECONDS (24.3-36.9) 04/05/20 04:29 Sodium 139 mmol/L (136-145) 04/12/20 04:54 Potassium 3.5 mmol/L (3.5-5.1) 04/12/20 04:54 BUN 6 mg/dL (7-18) L 04/12/20 04:54 Creatinine 0.38 mg/dL (0.55-1.3) L 04/12/20 04:54 Glucose 113 mg/dL (74-106) H 04/12/20 04:54 Phosphorus 3.2 mg/dL (2.5-4.9) 04/10/20 04:31 Magnesium 2.1 mg/dL (1.8-2.4) 04/11/20 05:48 Total Bilirubin 0.8 mg/dL (0.2-1.0) 04/01/20 20:00 AST 46 U/L (15-37) H 04/01/20 20:00 ALT 23 U/L (12-78) 04/01/20 20:00 Alkaline Phosphatase 145 U/L (45-117) H 04/01/20 20:00 Lipase 27 U/L (73-393) L 04/01/20 20:00 Home Medications: Aspirin [Aspirin EC 81 MG] 81 mg PO DAILY #90 tablet. 04/12/20 Malcom Yanez [Glucerna*] 237 ml PO BID #60 can 04/12/20 Lactobacillus Acidophilus [Acidophilus Lactobacilli] 1 each PO BID #60 capsule 04/12/20 Lidocaine 4% Patch [Lidoderm 5% Patch*] 1 patch TOP DAILY #30 patch 04/12/20 Multivit with Calcium,Iron,Min [Multiple Vitamins For Women] 1 each PO DAILY #90 tablet 04/12/20 traMADol HCL [Ultram*] 50 mg PO TID PRN #30 tab 04/12/20 New Medications: Lactobacillus Acidophilus [Acidophilus Lactobacilli] 1 each PO BID #60 capsule Aspirin [Aspirin EC 81 MG] 81 mg PO DAILY #[address] tablet.[address] Malcom Yanez [Glucerdelmi*] 237 ml PO BID #60 can Lidocaine 4% Patch [Lidoderm 5% Patch*] 1 patch TOP DAILY #30 patch Multivit with Calcium,Iron,Min [Multiple Vitamins For Women] 1 each PO DAILY #90 tablet traMADol HCL [Ultram*] 50 mg PO TID PRN #30 tab PRN Reason: PAIN Patient Discharge Instructions: 1. Patient will be transferred to skilled facility. 2. Patient presented with septic shock secondary to UTI and bacteremia. Urine culture was positive for E coli. Blood culture positive for enterococcus faecalis. Infectious Disease was consulted. Patient was placed on vancomycin and Maxipime. Initial CT scan showed lower rectal region mucosa thickening of the rectum. Patient with history of colon cancer. Infectious Disease suspects bacteremia likely related to this area. Patient had been seen in [facility] by oncology. Her last colonoscopy was 2 years ago. She has not followed up in the area. CT scan also revealed hepatic masses suspicious for metastatic disease. Liver biopsy was performed during her stay. Pathology pending at this time. PICC line was placed as the patient would require long-term IV antibiotic therapy. 2 post blood cultures were positive. A 3rd blood culture was finally negative. Patient has received treatment for UTI. No need for further Maxipime. Infectious Disease recommends to continue IV vancomycin for 2 weeks. Recommend to recheck blood culture at that time. If negative vancomycin and PICC line can be discontinued. Currently IV vancomycin 1 g twice daily is ordered. Patient will continue with IV antibiotic therapy at [facility]. I will consult Dr. Saldivar to establish care and to follow her at the [facility]. He will continue to manage the vancomycin. Recommend vanc trough to be obtained prior to the 4th dose and lab-BMP twice a week. Further adjustment and monitoring can be done by Dr. Saldivar. 3. Concerning the metastatic liver disease with possible reoccurrence of colon cancer. Liver biopsy done on 04/05/2020. Pathology pending at this time. If abnormal will recommend to establish care with Oncology locally to further address. Patient will likely require colonoscopy as an outpatient to further address. Patient also has a right renal mass 6 cm in size. This is worrisome for cancer. This will need to be further evaluated as an outpatient. Patient will likely require Urology evaluation and possible surgery. This can be further addressed by oncology as an outpatient for plan of care once liver pathology reported. 4. History of TAVR. Echocardiogram shows normal ejection fraction but severe aortic stenosis noted. Trace pericardial fusion noted. Case discussed with cardiology. LINDA would be recommended to evaluate for endocarditis but since the patient is on antibiotic therapy there is no need for that at this time. Recommend to recheck echocardiogram in 1 month to monitor her progress. Recommend follow up with cardiology as an outpatient to further address her severe aortic stenosis. Patient may continue with a 1500 fluid restriction. Patient will likely require CV surgery evaluation as an outpatient to further address. this can be done with the help of Cardiology as an outpatient. 5. Patient with anemia chronic disease. Patient was transfused in her stay. This is overall stable. Recommend to monitor CBC closely. Patient may continue with multi vitamin daily. 6. Patient with diabetes mellitus type 2. Patient previously on metformin. This has been held. Blood sugars well controlled at this time with diet. Recommend to discontinue metformin at this time. Continue to monitor blood sugars at least twice daily. Recommend to maintain blood sugars less 140 fasting and less 200 after meals. If blood sugars remain above 200 then metformin can be restarted. This can be further monitored and addressed by PCP. 7. Patient also had venous Doppler to the lower extremity. Thrombus in the popliteal artery is evident. Patient likely with PVD. Are tear Doppler performed to further evaluate. Will start aspirin 81 mg daily. This can be further addressed by CV surgery. 8. Patient with chronic pain. Will provide medication at discharge Diet: AHA Activity: Ad good Time spent managing pt's care (in minutes): 55
--- NOTE | 2020-04-12 16:47 | P.CNS ---
Date of Consult: 04/12/20 Patient is a pleasant woman admitted to the hospital on 04/02 with sepsis most likely from a UTI. She grew E coli in her urine. and e fecalis in multiple blood culture bottles. The patient had a previous history of colon cancer. she was found to have a liver mass which was biopsied under ct guidance. The patient is currently doing well. She was seen by Dr Antunez. Is going to be transfered to [facility] for vancomycin and meropenem. The patient needs follow up on the liver biopsy and she did have a renal cyst. Will folllow up with her in [facility]. She had signs of a infract that was present in November. Will need to work on risk factor modification of this patient as well.
--- NOTE | 2020-04-12 22:49 | RAD REPORT ---
EXAM DESCRIPTION: US - Lower Extremity Arterial Bilat - 04/12/2020 10:37 pm CLINICAL HISTORY: evaluate for PVD Leg pain, claudication COMPARISON: No comparisons TECHNIQUE: Bilateral lower extremity arterial Doppler examination was performed with waveform tracin g and ankle brachial pressure measurements. FINDINGS: Symmetric brachial pressure measurements are noted. Triphasic waveforms are seen throughout the right lower extremity. Monophasic waveforms with diminish ed amplitude noted throughout the left lower extremity arterial system. A large atherosclerotic plaqu e is present in the left common femoral artery. Right ankle brachial index measures 1.4, normal. Left ankle brachial index could not be accurately obtained due to lack of compressibility. IMPRESSION: Diffuse monophasic waveforms with blunted amplitude throughout the left lower extremity arterial system. This may be related to a large atherosclerotic plaque in the left common femoral art clive.
[2020-04-13] MEDS: VANCOMYCIN/NS 1 gm 1 GM/250 ML BAG IV SCH (05:28)
[2020-04-13] MEDS: INSULIN -REGULAR HUMAN 50 UNIT/0.5 ML ML SQ SCH (07:30)
[2020-04-13] MEDS: HEPARIN 5000 UNIT/ML 1 ML VIAL SQ SCH (08:27)
[2020-04-13] MEDS: GLUCERNA SHAKE 237 ML CAN PO SCH (08:27)
[2020-04-13] MEDS: LIDOCAINE 4% PATCH TOP SCH (08:27)
[2020-04-13] MEDS ORDERED: ASPIRIN EC 81 MG TAB PO SCH (09:00)
[2020-04-13 09:04] VITALS: O2SAT 93
[2020-04-13 09:34] VITALS: BP 167/84; TEMP 98
== END 2020-04-13 10:16 | DRG 871 ==
LOC: ER 19:24 → ERHOLD 04-02 00:16 → 2ND 04-02 01:29 → ERHOLD 04-02 03:00 → 2ND 04-05 15:39
PROVIDERS: ADMIT Internal Medicine; ATTEND Family Medicine
PROC: 0FB13ZX Excision of Right Lobe Liver, Percutaneous Approach, Diagnostic (ICD-10-PCS; 2020-04-05)
PROC: 30233N1 Transfusion of Nonautologous Red Blood Cells into Peripheral Vein, Percutaneous Approach (ICD-10-PCS; 2020-04-08)
PROC: 02HV33Z Insertion of Infusion Device into Superior Vena Cava, Percutaneous Approach (ICD-10-PCS; principal; 2020-04-11)
DX: A41.9 Sepsis, unspecified organism (principal); R65.21 Severe sepsis with septic shock; I33.0 Acute and subacute infective endocarditis; N39.0 Urinary tract infection, site not specified; C78.7 Secondary malignant neoplasm of liver and intrahepatic bile duct; E46 Unspecified protein-calorie malnutrition; I74.3 Embolism and thrombosis of arteries of the lower extremities; K44.9 Diaphragmatic hernia without obstruction or gangrene; I35.0 Nonrheumatic aortic (valve) stenosis; I10 Essential (primary) hypertension; K21.9 Gastro-esophageal reflux disease without esophagitis; B96.20 Unspecified Escherichia coli [E. coli] as the cause of diseases classified elsewhere; B95.2 Enterococcus as the cause of diseases classified elsewhere; D69.6 Thrombocytopenia, unspecified; R16.0 Hepatomegaly, not elsewhere classified; D63.8 Anemia in other chronic diseases classified elsewhere; N28.1 Cyst of kidney, acquired; E11.51 Type 2 diabetes mellitus with diabetic peripheral angiopathy without gangrene; G89.29 Other chronic pain; M54.9 Dorsalgia, unspecified; R06.02 Shortness of breath; Z85.038 Personal history of other malignant neoplasm of large intestine; Z79.82 Long term (current) use of aspirin; Z79.84 Long term (current) use of oral hypoglycemic drugs; Z79.899 Other long term (current) drug therapy; Z68.20 Body mass index [BMI] 20.0-20.9, adult; Z90.710 Acquired absence of both cervix and uterus; Z88.1 Allergy status to other antibiotic agents; Z20.828 Contact with and (suspected) exposure to other viral communicable diseases
CPT/HCPCS: 36415; 36430; 36569; 47000; 70450; 71045; 74177; 80048; 80076; 80202; 81003; 81015; 82140; 82378; 82947; 83036; 83605; 83690; 83735; 84100; 84132; 84145; 84443; 85014; 85018; 85025; 85610; 85730; 86850; 86900; 86901; 87040; 87077; 87086; 87088; 87186; 87205; 88307; 93005; 93306; 93925; 93971; 96361; 96365; 96375; 97110; 97112; 97116; 97161; 97530; 97542; 99285; J0692; J0696; J0744; J1170; J1642; J1644; J2250; J2270; J2405; J3010; J3370; J3475; J3480; J7030; J7050; P9016; Q9967; U0002

== ENCOUNTER 2020-04-23 16:21 | Emergency (ER) | payer OTHER ==
--- OUTSIDE RECORDS SUMMARY | 2020-04-23 16:34 | XMS REPORT | Clinical Summary ---
:1955 Author Organization [facility] Address [address] [place] [address] Care Team Providers Name Role Phone Pcp [...] (Medtronic Evol ut PRO+ 29mm) ( 11/17/2019 Shantelle, 11/22/2019) Malignant neoplasm of upper lobe of right lung 020 COPD exacerbation 10/31/2019 Colorectal cancer (HCC) S/P chemoradiation in 2016 10/2019 Resolved Problems Problem Noted Date Resolved Date SOB (shortness of breath) 10/30/2019 11/22/2019 Encounters Date Type Specialty Care Team Description 04/03/2020 Lab Requisition Lab 01/11/2020 Surgery ASHLEE BuitragoATHETER C GEORGEURE Helio OF ASD MD Shama 01/11/2020 Anesthesia Event Yoko Olmos MD 01/11/2020 Hospital Encounter Cardiac Intensive Buitrago, Aort ic valve stenosis, severe (Primary Dx); - Care Helio Hypertension, u nspecified type; 01/12/2020 MD Shama PFO (patent for amen ovale); Thalamic stroke ([facility]); Type 2 diabetes mellitus without complication, without long-term current use of insulin ([facility]) 01/11/2020 Travel 01/11/2020 Orders Only General Internal Medicine 01/08/2020 Office Visit Cardiology Minna, Preop cardiovas cular Helio exam (Primary D x) MD Abel Sesay Mae, LVN 01/05/2020 Telephone Cardiology Ash, Pre-op Exam Fransisca Hawley 11/29/2019 Hospital Encounter General Internal Franco Gordon stroke ([facility]); - Medicine MD Yasmine Anticoagulated; 12/07/2019 Nicolasa S/P TAVR (trans catheter aortic valve replacement); Nickolas Arizmendi, Type 2 diabe bushra mellitus without complication, without long- term current use of insulin ([facility]); Essential hypertension; Tito, Aortic valve st enosis, severe; Tania Gay, COPD exacerbat ion ([facility]); Malignant neopl asm of upper lobe of right lung (HCC); Cerebrovascular accident (CVA) due to embolism of precerebral artery (HCC); Colorectal canc er (HCC); Malignant neopl asm of lung, unspecified laterality, unspecified part of lung (HCC); Hypertension, u nspecified type; Hyponatremia 11/29/2019 Travel 11/23/2019 Orders Only General Internal Medicine 11/22/2019 Surgery Jonathan Pepper, MAGALI Morillo MD ER CORE AORTIC VALVE (TAVR/ANN MARIE) 11/22/2019 Anesthesia Event Murphy Kingston, EUN 11/17/2019 Anesthesia Event Murphy Kingston, EUN 11/17/2019 Hospital Encounter Cardiology oJnathan Pepper Nonrhe umatic aortic valve stenosis (Primary Dx); - MD Yisel COPD exacerbat ion ([facility]); 11/26/2019 Lung mass; Malignant neopl asm of upper lobe of right lung (HCC); Severe aortic s tenosis; SOB (shortness of breath); Recurrent genit al herpes; Immunocompromis ed patient ([facility]); Acute respirato ry insufficiency; Type 2 diabetes [...] - MD Ronnie COPD exacerbation ([facility]); 11/04/2019 Jude Overton Lung mass; MD Coty Smoker; Non-rheumatic a ortic stenosis; Chronic obstruc tive pulmonary disease, unspecified COPD type ([facility]); Nonrheumatic ao rtic valve stenosis; Colorectal canc er ([facility]); Squamous cell l brina cancer, right ([facility]) 10/30/2019 Orders Only General Internal Medicine 10/30/2019 Travel after 04/23/2019 Social History Tobacco Use Types Packs/Day Years [...] VACCINE (#1) 2020 HEMOGLOBIN A1C 05/30/2020 11/29/2019 LIPID PANEL 11/28/2022 11/29/2019 Implants Implanted Type Area Oncologist Device Identifier Shelf Model / Expiration Serial / Date Lot Occl Pfo Amplatzer 25mm 9-[id number]-025 - [id number] IMPLANTS N/A: [facility] MED [id number] 08/29/2024 9-[id number] / Implanted: Qty: 1 on 01/11/2020 by Helio Buitrago MD Heart / [id number] Evolut Pro + Trancatheter Aortic Valve Valves N/A: MEDTRONI C [id number] 05/28/2020 EVPROPLUS-29US / Implanted: Qty: 1 on 11/22/2019 by Jonathan Pepper MD Heart [id number] / Procedures Procedure Name Priority Date/Time Associated Comments Diagnosis SARS-COV2/RT-PCR ([facility] Routine 04/02/2020 9:50 R esults for this & REF LABS) PM CDT procedure are i n the results section. RHYTHM STRIP - SCAN 01/15/2020 1:50 PM [...] 426 ms QTC Calculation(Bazett) 446 ms P Phil Campbell 76 degrees R Phil Campbell 49 degrees T Phil Campbell 51 degrees Normal sinus rhythm Low voltage [...] 438 ms QTC Calculation(Bazett) 422 ms R Phil Campbell 8 degrees T Phil Campbell 199 degrees Junctional rhythm Septal infarct , age undeter mined ST & T wave abnormality, con clothing busheler lateral ischemia Abnormal ECG When compared with [...] 11/04/2019 7:40 Resul ts for this AM SHOE MAKER procedure are i n the results section. POCT-GLUCOSE METER Routine 11/03/2019 10:17 Resul ts for this PM SHOE MAKER procedure are i n the results section. POCT-GLUCOSE METER Routine 11/03/2019 6:18 Resul ts for this PM SHOE MAKER procedure are i n the results section. NM BONE SCAN WHOLE BODY Routine 11/03/2019 3:57 Results for this PM SHOE MAKER procedure are i n the results section. POCT-GLUCOSE METER Routine 11/03/2019 11:20 Resul ts for this AM SHOE MAKER procedure are i n the results section. POCT-GLUCOSE METER Routine 11/03/2019 7:51 Resul ts for this AM SHOE MAKER procedure are i n the results section. CBC W/PLT COUNT & AUTO Routine 11/03/2019 3:56 R esults for this DIFFERENTIAL AM SHOE MAKER procedure are i n the results section. PHOSPHORUS Routine 11/03/2019 3:56 Results for this AM SHOE MAKER procedure are i n the results section. MAGNESIUM Routine 11/03/2019 3:56 Results for this AM SHOE MAKER procedure are i n the results section. COMPREHENSIVE METABOLIC Routine 11/03/2019 3:56 Results for this PANEL AM SHOE MAKER procedure are i n the results section. CBC W/PLT COUNT & AUTO Routine 11/03/2019 3:56 R esults for this DIFFERENTIAL AM SHOE MAKER procedure are i n the results section. POCT-GLUCOSE METER Routine 11/02/2019 9:55 Resul ts for this PM SHOE MAKER procedure are i n the results section. PERIPHERAL VASCULAR 11/02/2019 9:11 REPORT - SCAN PM SHOE MAKER CTA CHEST Routine 11/02/2019 7:17 Results for this PM SHOE MAKER procedure are i n the results section. CTA ABDOMEN & PELVIS Routine 11/02/2019 7:17 Res ults for this PM SHOE MAKER procedure are i n the results section. TRANSFUSION SERVICE 11/02/2019 5:52 REPORT - SCAN PM SHOE MAKER POCT-GLUCOSE METER Routine 11/02/2019 5:30 Resul ts for this PM SHOE MAKER procedure are i n the results section. PULMONARY FUNCTION - 11/02/2019 3:02 SCAN PM SHOE MAKER POCT-GLUCOSE METER Routine 11/02/2019 1:16 Resul ts for this PM SHOE MAKER procedure are i n the results section. POCT-GLUCOSE METER Routine 11/02/2019 1:06 Resul ts for this PM SHOE MAKER procedure are i n the results section. POCT-GLUCOSE METER Routine 11/02/2019 10:08 Resul ts for this AM SHOE MAKER procedure are i n the results section. CAROTID DOPPLER Routine 11/02/2019 9:27 Results for this BILATERAL AM SHOE MAKER procedure are i n the results section. CBC W/PLT COUNT & AUTO Routine 11/02/2019 4:38 R esults for this DIFFERENTIAL AM SHOE MAKER procedure are i n the results section. PHOSPHORUS Routine 11/02/2019 4:38 Results for this AM SHOE MAKER procedure are i n the results section. MAGNESIUM Routine 11/02/2019 4:38 Results for this AM SHOE MAKER procedure are i n the results section. COMPREHENSIVE METABOLIC Routine 11/02/2019 4:38 Results for this PANEL AM SHOE MAKER procedure are i n the results section. CBC W/PLT COUNT & AUTO Routine 11/02/2019 4:38 R esults for this DIFFERENTIAL AM SHOE MAKER procedure are i n the results section. POCT-GLUCOSE METER Routine 11/01/2019 10:18 Resul ts for this PM SHOE MAKER procedure are i n the results section. ECHOCARDIOGRAM REPORT - 11/01/2019 9:20 SCAN PM SHOE MAKER SPIROMETRY Routine 11/01/2019 5:02 Results for this PM SHOE MAKER procedure are i n the results section. 2D ECHO W/ DOPPLER STAT 11/01/2019 1:22 Resul ts for this (CW/PW/COLOR) PM SHOE MAKER procedure are in the results section. POCT-GLUCOSE METER Routine 11/01/2019 1:20 Resul ts for this PM SHOE MAKER procedure are i n the results section. R & L CATH / CORONARY 11/01/2019 7:35 Aortic valve ANGIOS (+/- LV) AM SHOE MAKER stenosis, etiology of cardiac valve disease unspecified POCT-GLUCOSE METER Routine 11/01/2019 6:25 Resul ts for this AM SHOE MAKER procedure are i n the results section. ABORH, MANUAL STAT 11/01/2019 5:53 Results fo r this AM SHOE MAKER procedure are i n the results section. CBC W/PLT COUNT & AUTO Routine 11/01/2019 4:44 R esults for this DIFFERENTIAL AM SHOE MAKER procedure are i n the results section. TYPE AND SCREEN, Routine 11/01/2019 4:44 Results for this AUTOMATED AM SHOE MAKER procedure are i n the results section. PROTHROMBIN TIME/INR Routine 11/01/2019 4:44 Res ults for this AM SHOE MAKER procedure are i n the results section. PHOSPHORUS Routine 11/01/2019 4:44 Results for this AM SHOE MAKER procedure are i n the results section. MAGNESIUM Routine 11/01/2019 4:44 Results for this AM SHOE MAKER procedure are i n the results section. COMPREHENSIVE METABOLIC Routine 11/01/2019 4:44 Results for this PANEL AM SHOE MAKER procedure are i n the results section. CBC W/PLT COUNT & AUTO Routine 11/01/2019 4:44 R esults for this DIFFERENTIAL AM SHOE MAKER procedure are i n the results section. POCT-GLUCOSE METER Routine 11/01/2019 12:02 Resul ts for this AM SHOE MAKER procedure are i n the results section. POCT-GLUCOSE METER Routine 10/31/2019 10:01 Resul ts for this PM SHOE MAKER procedure are i n the results section. POCT-GLUCOSE METER Routine 10/31/2019 5:34 Resul ts for this PM SHOE MAKER procedure are i n the results section. POCT-GLUCOSE METER Routine 10/31/2019 7:52 Resul ts for this AM SHOE MAKER procedure are i n the results section. POCT-GLUCOSE METER Routine 10/31/2019 6:30 Resul ts for this AM SHOE MAKER procedure are i n the results section. VENOUS DOPPLER LEGS STAT 10/30/2019 6:00 Resu lts for this BILATERAL PM SHOE MAKER procedure are i n the results section. CT CHEST PE TEST DESIGN STAT 10/30/2019 5:29 Results for this PM SHOE MAKER procedure are i n the results section. CBC W/PLT COUNT & AUTO STAT 10/30/2019 4:04 R esults for this DIFFERENTIAL PM SHOE MAKER procedure are i n the results section. PT/APTT STAT 10/30/2019 4:04 Results for this PM SHOE MAKER procedure are i n the results section. CBC W/PLT COUNT & AUTO STAT 10/30/2019 4:04 R esults for this DIFFERENTIAL PM SHOE MAKER procedure are i n the results section. TROPONIN I STAT 10/30/2019 4:04 Results for this PM SHOE MAKER procedure are i n the results section. B-TYPE NATRIURETIC STAT 10/30/2019 4:04 Resul ts for this FACTOR (BNP) PM SHOE MAKER procedure are i n the results section. MAGNESIUM STAT 10/30/2019 4:04 Results for this PM SHOE MAKER procedure are i n the results section. BASIC METABOLIC PANEL STAT 10/30/2019 4:04 Re sults for this (7) PM SHOE MAKER procedure are i n the results section. XR CHEST 1 VIEW STAT 10/30/2019 3:16 Results for this PORTABLE/BEDSIDE PM SHOE MAKER procedure a re in the results section. ECG 12-LEAD Routine 10/30/2019 1:25 PM SHOE MAKER Procedure Note - Interface, External Ris In - 10/30/2019 6:59 PM SHOE MAKER Ventricular Rate 88 BPM Atrial Rate 88 BPM P-R Interval 162 ms QRS Duration 92 ms Q-T Interval 384 ms QTC Calculation(Bazett) 464 ms P Phil Campbell 67 degrees R Phil Campbell 32 degrees T Phil Campbell 53 degrees Normal sinus rhythm Possible Left atrial enlarge ment Nonspecific ST abnormality Abnormal ECG No previous ECGs available ECG 12-LEAD STAT 10/30/2019 1:25 PM SHOE MAKER Resu lts for this procedure are in the results section . after 04/23/2019 Results SARS-CoV2/RT-PCR ([facility]) (04/02/2020 9:50 PM CDT)Only the most recent of2 resultswithin the time period is included. SARS-COV2/RT-PCR Negative Not Detected, Negative, [facility] See external report for MEDICAL CENTER linked test SARS-COV-2 PERFORMING LAB [facility] Specimen Other Narrative Performed At Negative result for this test determines that [facility] SARS-CoV-2 RNA was not present in the specimen above the Limit of Detection (LOD).However, Negative results do not preclude SARS-CoV-2 infection and should not be used as the sole basis for treatment or patient management decisions. Negative results must be combined with clinical observations, patient history, and epidemiological information. A false negative result may occur if a specimen is improperly collected, transported or handled.A false negative result should be considered if patient's recent exposures or clinical presentation indicate that COVID-19 (SARS-CoV-2) is likely and diagnostic tests for other causes of illness are negative.Re-testing should be considered in cases of suspected false negatives. The limit of detection for this assay is 800 copies/mL. This SARS CoV-2 test is a real-time RT-PCR test intended for the qualitative detection of nucleic acid from SARS-CoV-2 in a nasopharyngeal swab specimen collected from individuals suspected of COVID-19 by their healthcare provider. This test has not been Food and Drug Administration (FDA) cleared or approved.This is a modified version of an approved Emergency Use Authorization (EUA) and is in the process of review by the FDA. Once authorized by the FDA, the issued EUA will be effective until the declaration that circumstances exist justifying the authorization of the emergency use of in vitro diagnostic tests for detection and/or diagnosis of COVID-19 is terminated under Section 564(b)(2) of the Act or the EUA is revoked under Section 564(g) of the Act. Fact Sheet for Healthcare Providers: https://www.[employer].com/sites/default/files/pro duct/documents/Fact_Sheet_HC_Providers_Ly_SA RS-CoV-2.pdf Fact Sheet for Healthcare Patients: https://www.[employer]/sites/default/files/pro duct/documents/Fact_Sheet_Patients_Lyra_SARS-C oV-2.pdf Performing Laboratory: [address] [address] Performing Organization Address City/State/Zipcode Phone Number [facility]ICAL [address] [place] [phone] CENTER RHYTHM STRIP - SCAN (01/15/2020 1:50 PM CDT)Only the most recent of6 results within the time period is included. Narrative Performed At This result has an attachment that is no t available. CARDIAC CATH REPORT - SCAN (01/15/2020 1:50 PM CDT) Narrative Performed At This result has an attachment that is no t available. 2D Echo W/Doppler(CW/PW/Color) (01/12/2020 9:23 AM CDT) Ejection Fraction [facility] ECHO HEAR TLAB MKCKESSON CPACS Specimen Narrative Performed At Transthoracic Echocardiography Report (T TE) [facility] ECHO HEARTLAB [facility] CPACS Demographics Patient NameHYLTON, CARADate of Study01/12/2020 KARINA Female Visit [id number] Room [id number] Number Date of 1955Referring Phys ician Age 64 year(s)Mining Speculator Viola Hargrove Interpreting Donato Beth MD Physician [...] QUIANA VALLADARES Date of Study 01/12/2020 KARINA Genbah Female Visit Number [id number] Race Room Number 6102 Number Date of 1955 Refer ring Physician Age 64 year(s) Sonog rapher Viola Hargrove Inter preting Donato Beth MD Physi logan Procedure Type of [...] T CI: 3.16 l/min/m^2 Performing Organization Address City/State/Zipcode Phone Number [facility] ECHO HEARTLAB [facility] CPACS Basic metabolic panel (01/12/2020 4:56 AM CDT)Only the most recent of15 results within the time period is included. Sodium 136 136 - 145 meq/L [facility] Potassium 3.7Comment: Specimen slightly 3.5 - 5.1 meq/L [facility] Chloride 106 98 - 107 meq/L [facility] CO2 22 22 - 29 meq/L [facility] BUN 9 7 - 21 mg/dL [facility] Creatinine 0.67Comment: Specimen 0.57 - 1.25 mg/dL [facility] slightly hemolyzed [facility] Glucose 146 (H) 70 - 105 mg/dL [facility] Calcium 8.2 (L) 8.4 - 10.2 mg/dL [facility] EGFR 89Comment: ESTIMATED GFR IS mL/min/1.73 sq m [facility] NOT ACCURATE CREATININE [facility] CLEARANCE IN PREDICTING GLOMERULAR FILTRATION RATE. ESTIMATED GFR IS NOT APPLICABLE FOR DIALYSIS PATIENTS. Specimen Blood Narrative Performed At Stretching Machine Tender Frame ID - PIAYA L [facility] ICAL [facility]ENTER Performing Organization Address City/State/[facility] Servicescode Phone Number [facility] [address] [place] [address] CENTER CBC (Hemogram only) (01/12/2020 4:55 AM CDT)Only the most recent of14 results within the time period is included. WBC 4.2 3.5 - 10.5 K/L [facility] RBC 3.45 (L) 3.93 - 5.22 M/L [facility] Hemoglobin 11.1 (L) 11.2 - 15.7 GM/DL [facility] Hematocrit 34.3 34.1 - 44.9 % [facility] MCV 99.4 (H) 79.4 - 94.8 fL [facility] MCH 32.2 25.6 - 32.2 pg [facility] MCHC 32.4 32.2 - 35.5 GM/DL [facility] RDW 14.6 (H) 11.7 - 14.4 % [facility] Platelets 186 150 - 450 K/CU MM [facility] MPV 9.1 (L) 9.4 - 12.3 fL [facility] nRBC 0 0 - 0 /100 WBC [facility] Specimen Blood Performing Organization Address City/[facility]/Zipcode Phone Number [facility] [address] [place] [address] CENTER XR chest 1 view portable / bedside (01/12/2020 3:27 AM CDT)Only the most recent of3 resultswithin the time period is included. Specimen Narrative Performed At FINAL REPORT [employer] RAD, CHEST, 1 VIEW, NON DEPT INDICATION: [...] Date/Time: 01/12/2020 0 4:42:15 Performing Organization Address City/State/Zipcode Phone Number [employer] POC ACTIVATED CLOTTING TIME (01/11/2020 10:51 AM CDT)Only the most recent of3 resultswithin the time period is included. Activated Clotting Time 362Comment: : 74-137 sec [facility] seconds, Baseline: TESTED [facility] [address] [facility], [id number]: Stretching Machine Tender Frame/Ammonium Sulfate Operator ID = [id number] for TY RODARTE Specimen Blood Performing Organization Address City/State/Zipcode Phone Number [facility]OR[facility] [address] [phone] CENTER Transesophageal echo (01/11/2020 9:12 AM CDT) Ejection Fraction [facility] ECHO HEAR TLAB [facility] Specimen Narrative Performed At Transesophageal Echocardiography Report (LINDA) [facility] ECHO HEARTLAB [facility] Demographics Patient Name QUIANA VALLADARES Date of Study 01/11/2020 KARINA [id number] GenderFem edwin Visit Number [id number] RaceCauc [id number] m Number [id number] Number Date of Birth1955 Referring Physician Helio Buitrago MD Age64 year(s) Mining Speculator Rob murphy MD Physician Procedure Type of [...] is noted. Atrial septal position continuously bows [id number]-[id number]-[id number], consistent with elevated LA pressure. There was [...] noted. Signature Findings Rhythm/BP Interventional LINDA (cpt 31781) for guidance of percutaneous intracardiac procedure. LeftNormal [...] is noted. Atrial septal position continuously bows ohmy-hu-xbbjx, consistent with elevated LA pressure. PF O [...] Study 01/11/2020 KARINA Gender Female Visit Number [id number] Race Room [place] [address] Number Date of 1955 Referri Physician Helio Buitrago MD Age 64 year(s) Baldemar Zurita Interpr dao Beth MD Physici an Procedure Type of Study LINDA procedure:TRANSESOPHAGEAL ECHO Indications:Patent foramen ovale (PFO). Clinical History ACID REFLUX,ASTHMA,COLON CANCER,DM,HTN,S /P TAVR 11/22/19 Height: 66 inches Weight: 56.7 kg (125 l bs) BSA: 1.64 m^2 BMI: 20.18 kg/m^2 HR: 73 bpm BP: 147/85 mmHg Summary Procedural LINAD to guide PFO closure by Amplatzer device. [...] Signature Findings Rhythm/BP Interventional LINDA (cpt 9 3355) for guidance of percutaneous intracardiac procedure. Left [...] noted. Atrial septal posi tion continuously bows vrfy-[id number]-hdtdg, consistent with elevated LA pressure. PFO noted. [...] l effusion is visualized. Performing Organization Address City/[facility] ServicesAgile Therapeuticsnv Phone Number [facility] ECHO HEARTLAB [facility] CPACS ECG 12 lead (01/11/2020 7:34 AM CDT)Only the most recent of3 resultswithin the time period is included. Specimen Narrative Performed At Ventricular Rate 66 BPM [employer] Atrial Rate 66 BPM P-R Interval 160 ms QRS Duration 90 ms Q-T Interval 426 ms QTC Calculation(Bazett) 446 ms P Phil Campbell 76 degrees R Phil Campbell 49 degrees T Phil Campbell 51 degrees Normal sinus rhythm Low voltage QRS Within normal limits When compared with ECG of 23-NOV-2019 11 :50, Significant changes have occurred Confirmed by MD Orellana Roberto ([id number]) on 01/10 1:40:18 PM Procedure Note Interface, External Ris In - 01/11/2020 1:40 PM CDT Ventricular Rate 66 BPM Atrial Rate 66 BPM P-R Interval 160 ms QRS Duration 90 ms Q-T Interval 426 ms QTC Calculation(Bazett) 446 ms P Phil Campbell 76 degrees R Phil Campbell 49 degrees T Phil Campbell 51 degrees Normal sinus rhythm Low voltage QRS Within normal limits When compared with ECG of 23-NOV-2019 11 :50, Significant changes have occurred Confirmed by MD Orellana Roberto ([id number]) on 01/11/2020 1:40:18 PM Performing Organization Address City/[facility]/[employer] Phone Number [employer] TRANSFUSION SERVICE REPORT - SCAN (01/09/2020 5:53 PM CDT)Only the most recent of5 resultswithin the time period is included. Narrative Performed At This result has an attachment that is no t available. Type and screen, automated (01/08/2020 9:29 AM CDT)Only the most recent of3 resultswithin the time period is included. ABO/RH AUTOMATED (BEAKER) O POSITIVE [facility] Ab Scrn NEGATIVE [facility] Specimen Blood Performing Organization Address [facility] Phone Number [address] [address] Prothrombin time/INR (01/08/2020 9:29 AM CDT)Only the most recent of16 results within the time period is included. Protime 13.7 11.9 - 14.2 seconds [facility] INR 1.1 <=5.9 [facility] Specimen Blood Narrative Performed At Effective 01/25/2019: PT Reference Range [facility] Change New: 11.9-14.2Previous: 11.7-14.7 RECOMMENDED COUMADIN/WARFARIN INR THERAPY RANGES STANDARD DOSE: 2.0-3.0Includes: PROPHYLAXIS for venous thrombosis, systemic embolization; TREATMENT for venous thrombosis and/or pulmonary embolus. HIGH RISK: Target INR is 2.5-3.5 for patients wiht mechanical heart valves. Performing Organization Address [facility] Phone Number [address] [phone] CENTER POC-Glucose meter (12/07/2019 8:02 AM CDT)Only the most recent of80 results within the time period is included. POC-Glucose Meter 115 (H)Comment: : TESTED 70 - 110 mg/dL [facility] AT [address], [address]: Stretching Machine Tender Frame/Ammonium Sulfate Operator ID = [id number] for VIVIANE KINGSTON Specimen Blood Performing Organization Address [facility]/State/Zipcode Phone Number [facility] [address] [place] [address] CENTER aPTT (12/07/2019 3:47 AM CDT)Only the most recent of22 resultswithin the time period is included. PTT 82.1 (H) 22.5 - 36.0 seconds [facility] Specimen Blood Narrative Performed At While on warfarin. [facility] Performing Organization Address City/State/Zipcode Phone Number [facility] [address] [place] [address] CENTER ECHOCARDIOGRAM REPORT - SCAN (12/05/2019 9:11 PM CDT) Narrative Performed At This result has an attachment that is no t available. Transesophageal echo (12/05/2019 9:26 AM CDT) Ejection Fraction [facility] ECHO HEAR TLAB MKCKESSON CPA Specimen Narrative Performed At Transesophageal Echocardiography Report (LINDA) [facility] ECHO HEARTLAB [facility] CPACS Demographics Patient Name QUIANA VALLADARES Date of Study 12/05/2019 KARINA [id number] GenderFem edwin Visit Number [id number] RaceCauc [id number] m Number [id number] Number Date of Birth1955 Referring Physician Helio Buitrago MD Age64 year(s) Mining Speculator Rob murphy MD Physician Fellow Valery Chirinos [...] is noted. Atrial septal position continuously bows trgz-pr-krrpr, consistent with elevated LA pressure. Intermittently, with [...] bradycardia during the exam. 3D imaging (cpt 25280) rendering with interpretation was performed. Left Normal [...] Septum noted. Atrial septal position continuously bows vhfr-sr-jjwtg, consistent with elevated LA pressure. Intermittently, with [...] Study 12/05/2019 KARINA Gender Female Visit Number [id number] Race [place] [address] Number Date of 1955 Referri Physician Helio Buitrago MD Age 64 year(s) Baldemar Rivas [facility] Parminder Interpr eting Donato Beth MD Physici an [...] during t he exam. 3D imaging (cpt 95159) miquel dering with interpretation was performed. Left Normal left [...] noted. Atrial septal posit ion continuously bows zxqw-lp-qlisi, consistent with elevated LA pressure. Intermittently, with [...] City/State/Zipcode Phone Number [facility] ECHO HEARTLAB [facility] PT/aPTT (12/04/2019 6:13 AM CDT)Only the most recent of8 resultswithin the time period is included. Protime 15.9 (H) 11.9 - 14.2 seconds [facility] INR 1.3 <=5.9 [facility] PTT 90.4 (H) 22.5 - 36.0 seconds [facility] Specimen Blood Narrative Performed At Effective 01/25/2019: PT Reference Range [facility] Change New: 11.9-14.2Previous: 11.7-14.7 RECOMMENDED COUMADIN/WARFARIN INR THERAPY RANGES STANDARD DOSE: 2.0-3.0Includes: PROPHYLAXIS for venous thrombosis, systemic embolization; TREATMENT for venous thrombosis and/or pulmonary embolus. HIGH RISK: Target INR is 2.5-3.5 for patients wiht mechanical heart valves. While on warfarin. While on warfarin. Performing Organization Address City/State/Zipcode Phone Number [address] [address] [place] D-dimer (12/02/2019 5:15 AM CDT) D-Dimer, Quant 0.42 <0.50 MG/L FEU [facility] Specimen Blood Narrative Performed At Intended Use: The D-Dimer Assay can be used [facility] to aid in the diagnosis of Deep Vein Thrombosis (DVT) and Pulmonary Embolism Disease (PED). In patients with low pre-test probability, various studies concerning STA Liatest D-dimer test have reported that with a cutoff value of 0.50 MG/L FEU, the Negative Predictive Value (NPV) regarding the exclusion of thrombosis is within 95-100% range. While on warfarin. Performing Organization Address City/[facility]/Zipcode Phone Number [address] [address] [place] PERIPHERAL VASCULAR REPORT - SCAN (12/01/2019 9:20 PM CDT)Only the most recent of2 resultswithin the time period is included. Narrative Performed At This result has an attachment that is no t available. Venous doppler legs bilateral (12/01/2019 9:59 AM CDT)Only the most recent of2 resultswithin the time period is included. Ejection Fraction [facility] ECHO HEAR TLAB [facility] CPACS Specimen Impressions Performed At Right Impression [facility] ECHO HEARTLAB [facility] CPACS 1. There is no deep venous obstruction [...] are measured in cm Narrative Performed At PV LAB - Lower Extremities DVT Study [facility] ECHO HEARTLAB [facility] Demographics Patient Name QUIANA VALLADARES Date of Study12/01/2019 [id number] Age8 2 Visit Number [id number] Female Accession Number [id number] of Birth1955 [id number] MD Stuart SonographerNomi Lara [facility] Interpreting Christa Carter Physician Procedure Type of [...] Study 12/01/2019 Ag e 64 Visit Number [id number] Ge nder Female Accession Number [id number] Da te of 1955 Referring Nickolas Coffey om Number 2223 Physician MD Nicolasa Mining Speculator Nomi Lara T In terpreting Christa Carter, Ph ysician Procedure Type of Study: Veins: [...] cm Performing Organization Address City/State/Zipcode Phone Number [facility] ECHO HEARTLAB Sonda41 ECHOCARDIOGRAM REPORT - SCAN (11/30/2019 9:10 PM CDT) Narrative Performed At This result has an attachment that is no t available. 2D Echo W/Doppler(CW/PW/Color) (11/30/2019 4:13 PM CDT) Ejection Fraction [facility] ECHO HEAR TLAB [employer] Specimen Narrative Performed At Transthoracic Echocardiography Report (T TE) [facility] ECHO HEARTLAB [employer] [facility] Demographics Patient Name Viji VALLADARES of Study 11/30/2019 KARINA [id number] Gender Female Visit Number [id number] [id number] Room Number 2223 Number Date of Birth1955Referring Physician Briseida Vo MD Age64 year(s)Mining Speculator Viola Beth MD Physician Procedure Type of [...] Demographics Patient Name QUIANA VALLADARES Date o f Study 11/30/2019 KARINA Gender Female Visit Number [id number] Race Room N [facility] 2223 Number Date of 1955 Referr ing Physician [...] T CI: 2.26 l/min/m^2 Performing Organization Address City/State/[facility] Phone Number [facility] [place] HEARTLAB MKCK[facility]ON [facility] MR brain without IV contrast (11/29/2019 11:06 PM CDT) Specimen Narrative Performed At FINAL REPORT [employer] [facility] MR, BRAIN, WITHOUT CONTRAST, MR, MRA, NE [...] shift or hydrocephalus. No acute intracranial hemorrhage. Sbxy-zb-jjfvcckx nonspecific supratentor ial and infratentorial white matter [...] shift or hydrocephalus. No acute intracranial hemorrhage. Vtbq-tv-rpokborh nonspecific supratentor ial and infratentorial white matter [...] 3:14:20 Performing Organization Address City/State/Zipcode Phone Number [facility] MRA neck without IV contrast (11/29/2019 11:06 PM CDT) Specimen Narrative Performed At FINAL REPORT [facility] MR, BRAIN, WITHOUT CONTRAST, MR, MRA, NE [...] shift or hydrocephalus. No acute intracranial hemorrhage. Jkvm-ht-uncxoupv nonspecific supratentor ial and infratentorial white matter [...] shift or hydrocephalus. No acute intracranial hemorrhage. Rrtn-qp-wbghmtdy nonspecific supratentor ial and infratentorial white matter [...] 3:14:20 Performing Organization Address City/State/Zipcode Phone Number [employer] [facility] MRA head without IV contrast (11/29/2019 11:06 PM CDT) Specimen Narrative Performed At FINAL REPORT [employer] MR, BRAIN, WITHOUT CONTRAST, MR, MRA, NE [...] shift or hydrocephalus. No acute intracranial hemorrhage. Demp-bs-pdcgplbu nonspecific supratentor ial and infratentorial white matter [...] shift or hydrocephalus. No acute intracranial hemorrhage. Gjjb-zq-wxrizaxp nonspecific supratentor ial and infratentorial white matter [...] 3:14:20 Performing Organization Address City/State/Zipcode Phone Number RIS Platelet count (11/29/2019 9:09 PM CDT) Platelets 256 150 - 450 K/CU MM [facility] Specimen Blood Narrative Performed At Stretching Machine Tender Frame ID - 6000 [facility] Performing Organization Address City/State/Zipcode Phone Number [address] [address] CENTER Hemoglobin A1c (11/29/2019 9:09 PM CDT) Hemoglobin A1C 5.7 4.3 - 6.1 % [facility] Specimen Blood Performing Organization Address City/[facility]/Zipcode Phone Number [address] [address] CENTER Lipid panel (11/29/2019 9:09 PM CDT) Triglycerides 143 mg/dL [facility] Cholesterol 158 mg/dL [facility] HDL 45 mg/dL [facility] LDL Calculated 84 mg/dL [facility] Specimen Blood Narrative Performed At Triglyceride Reference Range: [facility] Low Risk <150 [id number] High Risk 200-499 Very High Risk>=500 Cholesterol Reference Range: Low Risk <200 Brzjqdeyvh618-105 High Risk>240 HDL Cholesterol Reference Range: Low Risk >=60 High Risk <40 LDL Cholesterol Reference Range: Optimal<100 Near Rozpzbq515-813 Dvxnmfoqsv100-934 Iftk684-316 Very High >=190 Stretching Machine Tender Frame ID - DB Performing Organization Address City/[facility] Services[facility] Phone Number [address] [address] CENTER Vitamin B12 and Folate (11/29/2019 9:08 PM CDT) Vitamin B12 335 213 - 816 pg/mL [facility] Folate 11.7 >=7.0 ng/mL [facility] Specimen Blood Narrative Performed At Stretching Machine Tender Frame ID - DB [facility] Performing Organization Address City/State/Zipcode Phone Number [address] [address] CENTER TSH/Free T4 If Indicated (11/29/2019 9:08 PM CDT) TSH 0.87 0.35 - 4.94 uIU/mL [facility] Specimen Blood Narrative Performed At Stretching Machine Tender Frame ID - DB [facility] Performing Organization Address [facility] Servicesconv Phone Number [address] [address] [place] VASCULAR DIAGRAM -SCAN (11/27/2019 1:31 PM CDT)Only the most recent of3 results within the time period is included. Narrative Performed At This result has an attachment that is no t available. Phosphorus (11/26/2019 4:39 AM CDT)Only the most recent of13 resultswithin the time period is included. Phosphorus 4.3 2.3 - 4.7 mg/dL [facility] Specimen Blood Narrative Performed At Stretching Machine Tender Frame ID - DB [facility] Performing Organization Address [facility] Phone Number [address] [phone] [place] Magnesium (11/26/2019 4:39 AM CDT)Only the most recent of14 resultswithin the time period is included. Magnesium 2.1 1.6 - 2.6 mg/dL [facility] Specimen Blood Narrative Performed At Stretching Machine Tender Frame ID - DB [facility] Performing Organization Address [facility] Phone Number [address] [address] [place] [address] brain without IV contrast (11/24/2019 10:45 AM CDT) Specimen Narrative Performed At FINAL REPORT [facility] CT Head without contrast CLINICAL HISTORY: Altered [...] MD Report Verified Date/Time:11/24/2019 11:04:11 Reading Location: [address] Room Procedure Note Interface, External Ris In [...] Verified Date/Time: 11/24/2019 1 1:04:11 Reading Location: [address] Room Performing Organization Address City/State/Zipcode Phone Number [facility] ECHOCARDIOGRAM REPORT - SCAN (11/23/2019 9:11 PM CDT) Narrative Performed At This result has an attachment that is no t available. 2D Echo W/Doppler(CW/PW/Color) (11/23/2019 8:55 AM CDT) Ejection Fraction [facility] ECHO HEAR TLAB [facility] Specimen Narrative Performed At Transthoracic Echocardiography Report (T TE) [facility] ECHO [facility]LAB [facility] Demographics Patient NameQUIANA VALLADARES Date of Study11/23/2019 KARINA Gender Female Visit [id number] Race Caucasi an [id number] Number Date of 1955 ReferringJoseph Syeda Amato MD Age 64 year(s) SonographKeagan Quintero [facility] Human Resources Trainer Remy Beth MD Physician Procedure Type of [...] Study 11/23/2019 KARINA Gender Female Visit Number [id number] Race Room Num [facility] 2CV24 Number Date of 1955 Referrin g Jonathan Morillo Physicjuany n MD Shantelle Age 64 year(s) Sonograp her Karla Quintero RDCS Human Resources Trainer Remy Beth MD Physicia n Procedure Type [...] Phone Number [facility] ECHO HEARTLAB [facility] CPACS CBC with platelet count + automated diff (11/23/2019 3:23 AM CDT)Only the most recent of8 resultswithin the time period is included. WBC 6.4 3.5 - 10.5 K/L [facility] RBC 3.11 (L) 3.93 - 5.22 M/L [facility] Hemoglobin 10.5 (L) 11.2 - 15.7 GM/DL [facility] Hematocrit 31.9 (L) 34.1 - 44.9 % [facility] MCV 102.6 (H) 79.4 - 94.[address] [facility] MCH 33.8 (H) 25.6 - 32.2 pg [facility] MCHC 32.9 32.2 - 35.5 GM/DL [facility] RDW 14.6 (H) 11.7 - 14.4 % [facility] Platelets 151 150 - 450 K/CU MM [facility] MPV 8.9 (L) 9.4 - 12.3 fL [facility] nRBC 0 0 - 0 /100 WBC [facility] % Neutros 86 % [facility] % Lymphs 6 % [facility] % Monos 7 % [facility] % Eos 1 % [facility] % Baso 0 % [facility] # Neutros 5.52 1.56 - 6.13 K/L [facility] # Lymphs 0.40 (L) 1.18 - 3.74 K/L [facility] # Monos 0.42 (H) 0.24 - 0.36 K/L [facility] # Eos 0.05 0.04 - 0.36 K/L [facility] # Baso 0.01 0.01 - 0.08 K/L [facility] Immature 1 0 - 1 % [facility] Granulocytes-Relative MEDICAL CE NTER Specimen Blood Performing Organization Address City/[facility] Services[facility] Phone Number [address] [address] [place] Potassium-Stat Lab (11/22/2019 10:45 AM CDT) Potassium 3.7 3.6 - 5.5 meq/L [facility] Specimen Blood, Arterial Performing Organization Address City/[facility] Services[facility] Phone Number [address] [address] [place] Sodium Na-Stat Lab (11/22/2019 10:45 AM CDT) Sodium 137 135 - 148 meq/L [facility] Specimen Blood, Arterial Performing Organization Address City/[facility]/Zipcode Phone Number [address] [address] CENTER Glucose-Stat Lab (11/22/2019 10:45 AM CDT) Glucose 121 (H) 70 - 110 mg/dL [facility] Specimen Blood, Arterial Performing Organization Address City/State/Zipcode Phone Number [facility] [address] [phone] [place] HGB/HCT (H&H)-Stat Lab (11/22/2019 10:45 AM CDT) Hemoglobin 11.0 (L) 12.0 - 15.0 g/dL [facility] Hematocrit 32.0 (L) 36.0 - 45.0 % [facility] Specimen Blood, Arterial Performing Organization Address City/[facility] Services[facility] Phone Number [address] [address] [place] Calcium, Ionized (11/22/2019 10:45 AM CDT) Calcium, Ion 1.14 1.12 - 1.27 mmol/L [facility] pH, Blood 7.41 [facility] Specimen Blood Performing Organization Address [facility] Phone Number [address] [address] [place] Blood gas, arterial (11/22/2019 10:45 AM CDT) pH, Arterial 7.41 7.35 - 7.45 [facility] pCO2, Arterial 43 35 - 45 mmHg [facility] pO2, Arterial 97 (H) 80 - 90 mmHg [facility] O2 Sat, Arterial 97.5 (H) 96.0 - 97.0 % [facility] HCO3, Arterial 27 21 - 29 mmol/L [facility] Base Excess, Arterial 1.9 -2.0 - 3.0 mmol/L [place] [facility] Patient Temperature 36.8 C [facility] FIO2 36.0 % [facility] Specimen Blood, Arterial Performing Organization Address City/[facility] Servicesconv Phone Number [address] [place] [address] CENTER Prepare RBC (11/21/2019 5:44 PM CDT)Only the most recent of2 resultswithin the time period is included. CROSSMATCH COMPATIBLE SAFETRACE TX Unit ABO O Pos SAFETRACE TX UNIT NUMBER [id number] SAFETRACE TX Status READY SAFETRACE TX Blood Bank Product RED BLOOD CELLS SAFETRACE TX PRODUCT CODE [id number] SAFETRACE TX CROSSMATCH COMPATIBLE SAFETRACE TX Unit ABO O Pos SAFETRACE TX UNIT NUMBER [id number] SAFETRACE TX Status READY SAFETRACE TX Blood Bank Product RED BLOOD CELLS SAFETRACE TX PRODUCT CODE [id number] SAFETRACE TX Performing Organization Address [facility] Services[facility] Phone Number SAFETRACE TX CARDIAC CATH REPORT - SCAN (11/17/2019 5:20 PM CDT) Narrative Performed At This result has an attachment that is no t available. B-type Natriuretic Factor (BNP) (11/16/2019 10:32 AM CDT)Only the most recent of 2 resultswithin the time period is included. BNP 157 (H) 0 - 100 pg/mL [facility] Specimen Blood Narrative Performed At Stretching Machine Tender Frame ID - AAISACID [facility] Performing Organization Address [facility] Phone Number [address] [address] CENTER Comprehensive metabolic panel (11/16/2019 10:32 AM CDT)Only the most recent of4 resultswithin the time period is included. Protein, Total 6.5 6.0 - 8.3 gm/dL [facility] Albumin 3.7 3.5 - 5.0 g/dL [facility] Alkaline Phosphatase 113 40 - 150 U/L [facility] Total Bilirubin 0.4 0.2 - 1.2 mg/dL [facility] Sodium 137 136 - 145 meq/L [facility] Potassium 4.0 3.5 - 5.1 meq/L [facility] Chloride 103 98 - 107 meq/L [facility] CO2 27 22 - 29 meq/L [facility] BUN 7 7 - 21 mg/dL [facility] Creatinine 0.66 0.57 - 1.25 mg/dL [facility] Glucose 118 (H) 70 - 105 mg/dL [facility] Calcium 8.7 8.4 - 10.2 mg/dL [facility] AST 28 5 - 34 U/L [facility] ER ALT 26 6 - 55 U/L [facility] ER EGFR 91Comment: ESTIMATED GFR mL/min/1.73 sq m [facility] IS NOT ACCURATE [facility]ATIN[facility] CLEARANCE IN PREDICTING GLOMERULAR FILTRATION RATE. ESTIMATED GFR IS NOT APPLICABLE FOR DIALYSIS PATIENTS. Specimen Blood Narrative Performed At Stretching Machine Tender Frame ID - AAHAMID [facility] Performing Organization Address City/State/Zipcode Phone Number [facility] [address] [place] [address] CENTER EKG-SCANNED (11/06/2019 11:52 AM CDT) Narrative [...] bone scan whole body (11/03/2019 3:57 PM SHOE MAKER) Specimen Narrative Performed At FINAL REPORT [facility] PROCEDURE: BONE SCAN, WHOLE BODY CPT CODE:[id number] INDICATION:Lung cancer PROTOCOL:21.5 mCi of Tc-99m MDP [...] MD Report Verified Date/Time:11/03/2019 16:33:30 Reading Location: [address] [facility] Reading Room Procedure Note Interface, External Ris In - 11/03/2019 4:35 PM SHOE MAKER FINAL REPORT PROCEDURE: BONE SCAN, WHOLE BODY CPT CODE: [id number] INDICATION: Lung cancer PROTOCOL: 21.5 mCi of [...] Verified Date/Time: 11/03/2019 1 6:33:30 Reading Location: [address] [employer] Reading Room Performing Organization Address City/State/Zipcode Phone Number RIS CTA chest (11/02/2019 7:17 PM SHOE MAKER) Specimen Narrative Performed At Addendum Begins RIS REPORT STATUS:A I have reviewed the [...] MD Report Verified Date/Time:11/03/2019 16:18:17 Reading Location: [place] [address] Angio Body Reading Room Addendum Ends FINAL [...] the contrast sheet scann ed in the [employer] system for the amount and route of [...] reference purpose, per [employer] Elliot lut R narenchsamreen, recommendation are as follows: CT perime ter [...] performed a few days ago by the Network Administrator Radiologist. Refer to formal dictation for details, [...] regar ding the non-vascular findings by the Network Administrator Radiologist. Signed: Ricardo Broussard MD Report Verified Date/Time:11/03/2019 07:39:57 Procedure Note Interface, External Ris In - 11/03/2019 4:20 PM SHOE MAKER Addendum Begins REPORT STATUS:A I have reviewed [...] Verified Date/Time: 11/03/2019 1 6:18:17 Reading Location: [facility] P048 Angio Body Reading Room Addendum Ends FINAL [...] the contrast sheet scann ed in the [employer] system for the amount and route of [...] respectively. For reference purpose, per HENSLEY S3 br tanya, recommendation are as follows: CT area between 273 to 345 mm2 (20 mm valve); 338 to 430 mm2 (23 mm valve); 430 to 546 mm2 (26 mm ulisses ve); 540 to 683 mm2 (29 mm valve). For reference purpose, per [employer] Elliot lut R brochsamreen, recommendation are as follows: CT perime ter [...] performed a few days ago by the Network Administrator Radiologist. Refer to formal dictation for details, [...] regardi ng the non-vascular findings by the Network Administrator Radiologist. Signed: Ricardo Broussard MD Report Verified Date/Time: 11/03/2019 0 7:39:57 Performing Organization Address City/State/Zipcode Phone Number [facility] CTA abdomen & pelvis (11/02/2019 7:17 PM SHOE MAKER) Specimen Narrative Performed At Addendum Begins [employer] RIS REPORT STATUS:A I have reviewed the [...] MD Report Verified Date/Time:11/03/2019 16:18:17 Reading Location: [place] [id number] Angio Body Reading Room Addendum Ends FINAL [...] respectively. For reference purpose, per HENSLEY S3 br ochure, recommendation are as follows: CT area between [...] performed a few days ago by the Network Administrator Radiologist. Refer to formal dictation for details, [...] not given. No obvious by dilation is kma ntified. No free air is identified abdomen [...] regar ding the non-vascular findings by the Network Administrator Radiologist. Signed: Ricardo Broussard MD Report Verified Date/Time:11/03/2019 07:39:57 Procedure Note Interface, External Ris In - 11/03/2019 4:20 PM SHOE MAKER Addendum Begins REPORT STATUS:A I have reviewed [...] Verified Date/Time: 11/03/2019 1 6:18:17 Reading Location: [place] [address] Angio Body Reading Room Addendum Ends FINAL [...] the contrast sheet scann ed in the [employer] system for the amount and route of [...] performed a few days ago by the Network Administrator Radiologist. Refer to formal dictation for details, [...] regardi ng the non-vascular findings by the Network Administrator Radiologist. Signed: Ricardo Broussard MD Report Verified Date/Time: 11/03/2019 0 7:39:57 Performing Organization Address City/State/Zipcode Phone Number [employer] PULMONARY FUNCTION - SCAN (11/02/2019 3:02 PM SHOE MAKER) Narrative Performed At This result has an attachment that is no t available. Carotid doppler bilateral (11/02/2019 9:27 AM SHOE MAKER) Ejection Fraction [facility] ECHO HEAR TLAB [facility] CPACS Specimen Impressions Performed At Right Impression [facility] 1. There is <50% diameter reduction (approximately [...] Additional Measurements:ICAPSV/CCAPSV 0.79.ICAEDV/CCAEDV 0.95. Narrative Performed At PV LAB - Carotid Duplex Study [facility] ECHO HEARTLAB [facility] Demographics Patient Name QUIANA VALLADARES of Study11/02/2019 [id number] Visit Number [id number] Gender Female Accession Number [id number] Date of Birth1955 [facility] [address] [facility] [place] SonographerAmy De La Paz Interpreting Christa Carter , TANI, Nikki DE LA CRUZ Procedure Type of Study: Cerebral: Carotid, CAROTID DOPPLER, JOY ATERAL. Indications for Study:Pre op TVAR. Patient Status:Routine. Study Location:Vascular Lab. Technical Quality:Adequate visualization . Risk Factors History of Disease + +----+---- + !Diagnosis !Date!Comments ! + +----+---- + !History/Risk Factors:! !Cancer, HTN, DM ! + +----+---- + Procedure Note Interface, External Ris In - 11/02/2019 6:12 PM SHOE MAKER PV LAB - Carotid Duplex Study Demographics Patient Name QUIANA VALLADARES dallin of Study 11/02/2019 A 64 Visit Number [id number] G lionel Female Accession Number [id number] D ate of 1955 Referring Minna Jordan oom Number [id number] Physician Sh[employer] Mining Speculator Amy De La Paz I nterpreting Christa [...] 0.95. Performing Organization Address City/State/Zipcode Phone Number [facility] ECHO HEARTLAB [facility] CPA ECHOCARDIOGRAM REPORT - SCAN (11/01/2019 9:20 PM SHOE MAKER) Narrative Performed At This result has an attachment that is no t available. Pulmonary Funct Lab Spirometry (11/01/2019 5:02 PM SHOE MAKER) Narrative Performed At Leny Almonte RRT, TIRE ROOM SUPERVISOR 0205:45 PM [facility] PFT CHARTING REPORT Infection Control/Hand Hygiene procedure s followed throughout the encounter with patient: Yes Patient Identification Method: Patient n simin verified on armband, and Medical record on armband, Is the order complete?: Yes Account ID#: [id number] Patient Name: Quiana Valladares Birthdate: 1955 Age: [...] outcome. 2D Echo W/Doppler(CW/PW/Color) (11/01/2019 1:22 PM SHOE MAKER) Ejection Fraction [facility] ECHO HEAR TLAB [facility] CPACS Specimen Narrative Performed At Transthoracic Echocardiography Report (T TE) [facility] ECHO HEARTLAB [facility] Demographics Patient Name QUIANA VALLADARES Date of Study 11/01/2019 KARINA [id number] GenderFem edwin Visit Number [id number] RaceMi kaye [id number] m Number [id number] Number Date of Birth1955 Referring Physician Helio Buitrago MD Age64 year(s) Mining Speculator Delmar Odonnell ms [facility] CinditIzosam Rankin InterpretingPhysician JONO Deluca Procedure Type of Study TTE [...] External Ris In - 11/01/2019 4:22 PM SHOE MAKER Transthoracic Echocardiography Report (TTE) Demographics Patient Name QUIANA VALALDARES Date of Study 11/01/2019 KARINA Gender Female Visit Number [id number] Race Room [facility] [id number] Number Date of 1955 Referri Physician Helio Buitrago MD Age 64 year(s) Sonogra gricelda Gotti [facility] Human Resources Trainer Asaf Rankin Interpr eting Keara Deluca MD Procedure Type of Study TTE procedure:2DECHO W DOPPLE R(CW/PW/COLOR) (STAT) Indications:Routine follow up of valve s tenosis with no clinical change. Clinical History HGB 10.8 HCT 32.6 % , COLORECTAL CA (S/P CHEMORADIATION ), NEWLY DX LUNG MASS, COPD, R/L CATH [...] TR Gradient: 22.84 mmHg Performing Organization Address City/[facility] Phone Number [facility] ECHO HEARTLAB [facility] CPACS [place]H, manual (11/01/2019 5:53 AM SHOE MAKER) ABO Grouping O [facility] Rh Factor POS [facility] Specimen Blood Performing Organization Address [facility] Phone Number [facility] [address] [place] [address] CT chest for pulmonary embolus (10/30/2019 5:29 PM SHOE MAKER) Specimen Narrative Performed At FINAL REPORT [employer] [facility] TECHNIQUE: CT of the chest WITH intraven ous contrast (pulmonary embolism protocol). Dose modulation, ite rative reconstruction, and/or weight-based adjustment of the mA/kV was utilized to reduce the radiation dose to as low as reasonably a chievable. INDICATION: 64-year-old woman with chest pain, shortness of breath, and history of cancer. COMPARISON: Chest radiograph from [facility] same date. FINDINGS: LINES/TUBES: The tip of [...] MD Report Verified Date/Time:10/30/2019 18:23:35 Reading Location: [facility] C0Y CT Body R [facility] Room Procedure Note Interface, External Ris In - 10/30/2019 6:25 PM SHOE MAKER FINAL REPORT TECHNIQUE: CT of the chest WITH intraven ous contrast (pulmonary embolism protocol). Dose modulation, ite rative reconstruction, and/or weight-based adjustment of the mA/kV was utilized to reduce the radiation dose to as low as reasonably a chievable. INDICATION: 64-year-old woman with chest pain, shortness of breath, and history of cancer. COMPARISON: Chest radiograph from [facility] same date. FINDINGS: LINES/TUBES: The tip of [...] Verified Date/Time: 10/30/2019 1 8:23:35 Reading Location: [facility] C013Y CT Body R [facility] Room Performing Organization Address City/State/Zipcode Phone Number GE RIS Troponin I (10/30/2019 4:04 PM SHOE MAKER) Troponin I <0.01 0.00 - 0.03 ng/mL [facility] Specimen Blood Narrative Performed At Troponin I (TnI) levels must be interpreted [facility] in the context of the presenting [...] acidosis, acute neurological disease, and persistent tachyarrhythmia. Stretching Machine Tender Frame ID - BS Performing Organization Address City/State/Zipcode Phone Number LORIR HERNÁNDEZ [facility] [address] [place] [address] CENTER after 04/23/2019 Insurance Payer Benefit Plan / Group Subscriber ID Type Phone A ddress MEDICARE MEDICARE A B xxxxxxxxxxx Medicare CDC REVIEW CDC REVIEW xxxxxxxx [address] [place], [place] [phone] Advance Directives For more information, please contact:LORRI Byers [id number] [place], [place] [phone] Code Status Date Activated Date Inactivated Comments [...]
--- OUTSIDE RECORDS SUMMARY | 2020-04-23 16:38 | XMS REPORT | Continuity of Care Document ---
:1955 Author Organization [facility] t Address [address] [place] [address] [address]. [address] [place] [address] Care Team Providers Name Role Phone Pcp [...] xxxxxxxx [facility] RE[facility]PO ANGELIQUE Solorzano Medical [phone] [place] Problems Condition Condition Condition Status Onset Resolution Last Treating Co mments Source Name Details Category Date Date Treatment Clinician Date PFO PFO Disease Active [facility] (patent (patent 5-14 [facility] - foramen foramen 00:00: Medical ovale) ovale) 00 Center Thalamic Thalamic Disease Active 2019- [facility] stroke stroke 4[facility]02 [facility] - [facility]: Medical 00 [place] HTN HTN Disease Active [facility] (hypertens (hypertens 3-25 Kristi kes - ion) ion) 00:00: Medical chronic chronic 00 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, mellitus, 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 00:00: Medical (HCC) (HCC) 00 Center (home (home Metformin) Metformin) Genital Genital Disease Active [facility] herpes herpes 3-22 [facility] - 00:00: Medical 00 [place] Aortic Aortic Disease Active [facility] valve [...] Medica l lobe of lobe of 00 [place] right lung right lung COPD COPD Disease Active [facility] exacerbati exacerbati 3-03 Kristi kes - on on 00:00: Medical 00 [place] Colorectal Colorectal Disease Active C [facility] [...] of breath) of breath) 00:00: Me dical [address] [place] [address] Allergies, Adverse Reactions, Alerts Allergy Allergy Status [...] Date Quantity Comments Source Sex Assigned At [facility] - [facility] Cigarettes smoked 2020-01-15 2020-01-15 [facility] - current (pack per 00:00:00 00:00:00 [facility] Center day) - Reported Cigarette pack-years 2020-01-15 2020-01-15 [facility] - 00:00:00 00:00:00 [facility] Alcohol Comment 2019-11-16 2019-11-16 Occasional [facility] - 00:00:00 00:00:00 [facility] Smoking Status Start Date Stop Date Source Current every day smoker 2020-01-15 00:00:00 [facility] Medications Ordered Filled Start Stop Current Ordering Indication Dosage Frequency Signature Comments Components Source Medication Medication Date Date Medication? Clinician (SIG) Name Name aspirin 81 No 81mg QD Take [address] [facility] MG [...] by Center tablet mouth daily. aspirin 81 2019- No 81mg QD Take [address] MG EC 12-06- by mouth [facility] - tablet 11:27: 00:00 daily. Medical 38 :00 Center clopidogreL No 75mg QD Take [address] [facility] [...] [address] [facility] HFA 11-03 puff by Parse - (VENTOLIN 00:00: 00:00 mouth via Me [...] [address] [facility] (GLUCOPHAGE 8-18 mg by LuParse - ) 500 MG 00:00: mouth 2 Medica l tablet 00 (two) Center times daily with breakfast and dinner . Vital Signs Vital Name Observation Time Observation Value Comments Source Systolic blood 2020-01-12 13:00:00 129 mm[Hg] [facility] Diastolic blood 2020-01-12 13:00:00 85 mm[Hg] [facility] S t [facility] Heart rate 2020-01-12 13:00:00 65 /min [facility] Respiratory rate 2020-01-12 13:00:00 17 /min [facility] Oxygen saturation in 2020-01-12 13:00:00 99 /min [facility] Arterial blood by Medical Ce nter Pulse oximetry Body temperature 2020-01-12 12:00:00 36.78 Gracia [facility] Body weight Measured 2020-01-12 05:00:00 56 kg [facility] BMI 2020-01-12 05:00:00 19.93 kg/m2 [facility] Body height 2020-01-11 06:16:00 167.6 cm [facility] Procedures Procedure Date / Time Performing Clinician Source Performed SARS-COV2/RT-PCR ([facility] & 2020-04-02 21:50:00 [facility] REF LABS) [facility] RHYTHM STRIP - SCAN 2020-01-15 13:50:19 Provider, [facility] CARDIAC CATH REPORT - SCAN 2020-01-15 13:50:17 Provider, [facility] 2D ECHO W/ DOPPLER 2020-01-12 09:23:02 [facility] (CW/PW/COLOR) [facility] BASIC METABOLIC PANEL (7) 2020-01-12 04:56:00 [facility] CBC (HEMOGRAM ONLY) 2020-01-12 04:55:00 [facility] XR CHEST 1 VIEW 2020-01-12 03:27:[address] [facility] PORTABLE/BEDSIDE [facility] Center POCT-ACT 2020-01-11 10:51:00 Helio Buitrago [facility] s [facility] COLOR-FLOW MAPPING 2020-01-11 10:00:20 [place] [facility] CONT WAVE PULSED DOPPLER 2020-01-11 10:00:20 Helio Buitrago I [facility] TRANSCATHETER CLOSURE OF 2020-01-11 09:41:00 Helio Buitrago I [facility] TRANSESOPHAGEAL ECHO 2020-01-11 09:12:59 Minna Helio [facility] ECG 12-LEAD 2020-01-11 07:34:20 Unknown, Hl7 Doctor [facility] TRANSFUSION SERVICE REPORT 2020-01-09 17:53:54 Provider, Compa [facility] SARS-COV2/RT-PCR ([facility] & 2020-01-08 10:31:00 Helio Buitrago I [facility] - REF LABS) [facility] BASIC METABOLIC PANEL (7) 2020-01-08 09:29:[address] [facility] CBC (HEMOGRAM ONLY) 2020-01-08 09:29:00 Minna [facility] PROTHROMBIN TIME/INR 2020-01-08 09:29:00 Minna [facility] TYPE AND SCREEN, AUTOMATED 2020-01-08 09:29:00 Minna [facility] RHYTHM STRIP - SCAN 2019-12-27 12:20:32 Provider, [facility] RHYTHM STRIP - SCAN 2019-12-08 12:40:21 Provider, [facility] POCT-GLUCOSE METER 2019-12-07 08:02:00 Tito [facility] CBC (HEMOGRAM ONLY) 2019-12-07 03:47:00 Briseida Vo [facility] PROTHROMBIN TIME/INR 2019-12-07 03:47:00 Bjorn Klein [facility] APTT 2019-12-07 03:47:00 Tito [facility] POCT-GLUCOSE METER 2019-12-06 21:10:00 Tito [facility] APTT 2019-12-06 20:30:00 Tito [facility] POCT-GLUCOSE METER 2019-12-06 17:07:00 Tito [facility] APTT 2019-12-06 13:08:00 Briseida Vo [facility] POCT-GLUCOSE METER 2019-12-06 11:33:00 Tito Tania Ann [facility] POCT-GLUCOSE METER 2019-12-06 08:10:00 Tito [facility] BASIC METABOLIC PANEL (7) 2019-12-06 05:47:[address] [facility] CBC (HEMOGRAM ONLY) 2019-12-06 05:47:00 Briseida Vo [facility] PROTHROMBIN TIME/INR 2019-12-06 05:47:00 Bjorn Klein [facility] APTT 2019-12-06 05:47:00 Tania Francis [facility] APTT 2019-12-05 23:09:00 Tito [facility] POCT-GLUCOSE METER 2019-12-05 21:20[facility] - 2019-12-05 21:11:06 Provider, Compa I [facility] APTT 2019-12-05 20:56:00 Tito [facility] POCT-GLUCOSE METER 2019-12-05 16:22:00 Tito [facility] POCT-GLUCOSE METER 2019-12-05 13:13:00 Tito [facility] APTT 2019-12-05 12:35:00 Briseida Vo [facility] TRANSESOPHAGEAL ECHO 2019-12-05 09:26:16 Minna [facility] POCT-GLUCOSE METER 2019-12-05 07:31:00 Tito [facility] CBC (HEMOGRAM ONLY) 2019-12-05 04:33:00 Briseida Vo [facility] PROTHROMBIN TIME/INR 2019-12-05 04:33:00 Bjorn Klein [facility] APTT 2019-12-05 04:33:00 Briseida Vo [facility] POCT-GLUCOSE METER 2019-12-04 21:01:00 Tito [facility] POCT-GLUCOSE METER 2019-12-04 16:46:00 Tito [facility] COLOR-FLOW MAPPING 2019-12-04 14:54:50 [facility] WAVE PULSED DOPPLER 2019-12-04 14:54:50 Helio Buitrago CH I [facility] APTT 2019-12-04 14:34:00 Briseida Vo [facility] POCT-GLUCOSE METER 2019-12-04 11:33:00 Tania Francis [facility] BASIC METABOLIC PANEL (7) 2019-12-04 07:46:00 Tania Francis [facility] POCT-GLUCOSE METER 2019-12-04 07:36:00 Tania Francis [facility] PT/APTT 2019-12-04 06:13:00 Nicolasa [facility] CBC (HEMOGRAM ONLY) 2019-12-04 06:13:00 Briseida Vo [facility] PROTHROMBIN TIME/INR 2019-12-04 06:13:00 Bjorn Klein [facility] PT/APTT 2019-12-03 23:33:00 Nicolasa [facility] POCT-GLUCOSE METER 2019-12-03 21:02:00 Nicolasa [facility] POCT-GLUCOSE METER 2019-12-03 16:55:00 Nicolasa [facility] PT/APTT 2019-12-03 16:02:00 Nicolasa [facility] POCT-GLUCOSE METER 2019-12-03 11:26:00 Nicolasa [facility] POCT-GLUCOSE METER 2019-12-03 07:40:00 Nicolasa [facility] PT/APTT 2019-12-03 05:39:00 Nicolasa [facility] CBC (HEMOGRAM ONLY) 2019-12-03 05:39:00 Briseida Vo [facility] PROTHROMBIN TIME/INR 2019-12-03 05:39:00 Bjorn Klein [facility] POCT-GLUCOSE METER 2019-12-02 20:37:00 Nicolasa [facility] POCT-GLUCOSE METER 2019-12-02 16:23:00 Nicolasa [facility] POCT-GLUCOSE METER 2019-12-02 12:04:00 Nicolasa [facility] POCT-GLUCOSE METER 2019-12-02 09:15:00 Nicolasa [facility] POCT-GLUCOSE METER 2019-12-02 07:40:00 Nicolasa [facility] CBC (HEMOGRAM ONLY) 2019-12-02 05:16:00 Briseida Vo [facility] D-DIMER 2019-12-02 05:15:00 Manfred Parra [facility] PROTHROMBIN TIME/INR 2019-12-02 05:15:00 Bjorn Klein [facility] PT/APTT 2019-12-02 05:15:00 Nicolasa [facility] APTT 2019-12-01 23:35:00 Briseida Vo [facility] PERIPHERAL VASCULAR REPORT 2019-12-01 21:20:[address] [facility] POCT-GLUCOSE METER 2019-12-01 20:32:00 Nicolasa [facility] APTT 2019-12-01 17:24:00 Briseida Vo [facility] POCT-GLUCOSE METER 2019-12-01 17:06:00 Nicolasa [facility] POCT-GLUCOSE METER 2019-12-01 12:39:00 Nicolasa [facility] CBC (HEMOGRAM ONLY) 2019-12-01 10:03:00 Briseida Vo [facility] APTT 2019-12-01 10:03:00 Nicolasa [facility] VENOUS DOPPLER LEGS 2019-12-01 09:59:00 Manfred Parra [facility] POCT-GLUCOSE METER 2019-12-01 07:46:00 Nicolasa [facility] APTT 2019-12-01 00:25:00 Nicolasa [facility] PT/APTT 2019-11-30 23:21:00 Nicolasa [facility] ECHOCARDIOGRAM REPORT - 2019-11-30 21:10:41 Compa Egan [facility] POCT-GLUCOSE METER 2019-11-30 21:03:00 Nicolasa [facility] POCT-GLUCOSE METER 2019-11-30 17:47:00 Nicolasa [facility] 2D ECHO W/ DOPPLER 2019-11-30 16:13:[address] [facility] (CW/PW/COLOR) [facility] APTT 2019-11-30 15:29:00 Briseida Vo [facility] POCT-GLUCOSE METER 2019-11-30 12:30:00 Nicolasa [facility] POCT-GLUCOSE METER 2019-11-30 08:00:00 Franco Cartagena [facility] APTT 2019-11-30 03:40:00 Franco Cartagena [facility] CBC (HEMOGRAM ONLY) 2019-11-30 03:40:00 Briseida Vo [facility] MRA HEAD WITHOUT IV 2019-11-29 23:06:00 Briseida Vo [facility] MRA NECK WITHOUT IV 2019-11-29 23:06:00 Briseida Vo [facility] MR BRAIN WITHOUT IV 2019-11-29 23:06:00 Briseida Vo [facility] PLATELET COUNT 2019-11-29 21:09:00 Briseida Vo [facility] LIPID PANEL 2019-11-29 21:09:00 Briseida Vo [facility] HEMOGLOBIN A1C 2019-11-29 21:09:00 Briseida Vo [facility] APTT 2019-11-29 21:08:00 Briseida Vo [facility] TSH/FREE T4 IF INDICATED 2019-11-29 21:08:00 Briseida Vo [facility] VITAMIN B12 AND FOLATE 2019-11-29 21:08:00 Briseida Vo [facility] POCT-GLUCOSE METER 2019-11-29 19:40:00 Franco Cartagena [facility] RHYTHM STRIP - SCAN 2019-11-29 11:52:24 Provider, [facility] RHYTHM STRIP - SCAN 2019-11-27 13:31:11 Provider, [facility] VASCULAR DIAGRAM -SCAN 2019-11-27 13:31:02 Provider, [facility] POCT-GLUCOSE METER 2019-11-26 12:01:[address] [facility] POCT-GLUCOSE METER 2019-11-26 08:28:[address] [facility] BASIC METABOLIC PANEL (7) 2019-11-26 04:39:00 Amos Tavares [facility] MAGNESIUM 2019-11-26 04:39:00 Amos Tavares [facility] PHOSPHORUS 2019-11-26 04:39:00 Amos Tavares [facility] PROTHROMBIN TIME/INR 2019-11-26 04:39:00 Cirilo [facility] APTT 2019-11-26 04:39:00 Lennox [facility] CBC (HEMOGRAM ONLY) 2019-11-26 04:39:00 [facility] POCT-GLUCOSE METER 2019-11-25 21:27:00 [facility] POCT-[facility]UCOSE METER 2019-11-25 18:16:00 [facility] POCT-GLUCOSE METER 2019-11-25 11:50:00 [facility] POCT-GLUCOSE METER 2019-11-25 07:59:00 [facility] BASIC METABOLIC PANEL (7) 2019-11-25 04:16:00 Amos Tavares [facility] MAGNESIUM 2019-11-25 04:16:00 Amos Tavares [facility] PHOSPHORUS 2019-11-25 04:16:00 Amos Tavares [facility] PROTHROMBIN TIME/INR 2019-11-25 04:16:00 [facility] APTT 2019-11-25 04:16:00 [facility] CBC (HEMOGRAM ONLY) 2019-11-25 04:16:00 [facility], [facility] POCT-GLUCOSE METER 2019-11-24 21:15:00 [facility] POCT-GLUCOSE METER 2019-11-24 12:15:[address] BRAIN WITHOUT IV 2019-11-24 10:45:00 [facility], [facility] POCT-GLUCOSE METER 2019-11-24 07:58:00 [facility] BASIC METABOLIC PANEL (7) 2019-11-24 04:39:00 Amos Tavares [facility] MAGNESIUM 2019-11-24 04:39:00 Amos Tavares [facility] PHOSPHORUS 2019-11-24 04:39:00 Amos Tavares [facility] PROTHROMBIN TIME/INR 2019-11-24 04:39:[address] [facility] APTT 2019-11-24 04:39:00 [facility] CBC (HEMOGRAM ONLY) 2019-11-24 04:39:00 Stephany-Smart, Simah [facility] POCT-GLUCOSE METER 2019-11-23 21:27:00 [facility] ECHOCARDIOGRAM REPORT - 2019-11-23 21:11:05 Provider, Compa [facility] POCT-GLUCOSE METER 2019-11-23 17:19:00 [facility] POCT-GLUCOSE METER 2019-11-23 13:32:00 [facility] ECG 12-LEAD 2019-11-23 11:50:37 Unknown, Hl7 Doctor [facility] 2D ECHO W/ DOPPLER 2019-11-23 08:55:00 Amos Tavares [facility] (CW/PW/COLOR) [facility] BASIC METABOLIC PANEL (7) 2019-11-23 03:23:00 Amos Tavares [facility] MAGNESIUM 2019-11-23 03:23:00 Amos Tavares [facility] PHOSPHORUS 2019-11-23 03:23:00 Amos Tavares [facility] PROTHROMBIN TIME/INR 2019-11-23 03:23:[address] [facility] APTT 2019-11-23 03:23:00 [facility] CBC W/PLT COUNT & AUTO 2019-11-23 03:23:00 [facility] TRANSFUSION SERVICE REPORT 2019-11-22 17:50:20 Provider, Default [facility] - - [facility] XR CHEST 1 VIEW 2019-11-22 11:09:00 Wally Bruno [facility] PORTABLE/BEDSIDE Medical [place] BASIC METABOLIC PANEL (7) 2019-11-22 10:45:00 Kiana, Wally lester [facility] MAGNESIUM 2019-11-22 10:45:00 Kiana, Wally Zurita [facility] PHOSPHORUS 2019-11-22 10:45:00 Kiana, Wally Zurita [facility] CALCIUM, IONIZED 2019-11-22 10:45:00 Kiana, Wally Zurita [facility] PROTHROMBIN TIME/INR 2019-11-22 10:45:00 Kiana, Wally Zurita [facility] APTT 2019-11-22 10:45:00 Kiana, Wally Zurita [facility] BLOOD GAS, ARTERIAL 2019-11-22 10:45:00 Kiana, Wally Zurita [facility] SODIUM NA-STAT LAB 2019-11-22 10:45:00 Kiana, Wally Zurita [facility] POTASSIUM-STAT LAB 2019-11-22 10:45:00 Kiana, Wally Zurita [facility] GLUCOSE-STAT LAB 2019-11-22 10:45:00 Kiana, Wally Zurita [facility] HGB/HCT (H&H) - STAT LAB 2019-11-22 10:45:00 Kiana, Wally Zurita [facility] CBC W/PLT COUNT & AUTO 2019-11-22 10:45:00 KianaWally nelson [facility] POCT-ACT 2019-11-22 09:46:00 Jonathan Aguilar [facility] POCT-ACT 2019-11-22 09:26:00 Jonathan Aguilar [facility] REPLACEMENT,TRANSCATHETER 2019-11-22 08:00:00 Jonathan Aguilar [facility] AORTIC VALVE [facility] (TAVR/ANN MARIE) POCT-GLUCOSE METER 2019-11-22 05:02:00 Jonathan Aguilar [facility] BASIC METABOLIC PANEL (7) 2019-11-22 04:54:00 Amos Tavares [facility] MAGNESIUM 2019-11-22 04:54:00 ChaitanyaAmos [facility] PHOSPHORUS 2019-11-22 04:54:00 Amos Tavares Polo [facility] PROTHROMBIN TIME/INR 2019-11-22 04:54:00 Cirilo [facility] APTT 2019-11-22 04:54:00 Cirilo [facility] CBC W/PLT COUNT & AUTO 2019-11-22 04:54:00 [facility] POCT-GLUCOSE METER 2019-11-21 21:07:[address] [facility] POCT-GLUCOSE METER 2019-11-21 18:26:[address] [facility] PREPARE RBC 2019-11-21 17:44:00 Shantelle [facility] POCT-GLUCOSE METER 2019-11-21 11:55:[address] [facility] POCT-GLUCOSE METER 2019-11-21 07:49:00 [facility] BASIC METABOLIC PANEL (7) 2019-11-21 05:08:00 Amos Tavares [facility] MAGNESIUM 2019-11-21 05:08:00 Amos Tavares [facility] PHOSPHORUS 2019-11-21 05:08:00 Amos Tavares [facility] POCT-GLUCOSE METER 2019-11-20 21:06:[address] [facility] POCT-GLUCOSE METER 2019-11-20 17:09:[address] [facility] POCT-GLUCOSE METER 2019-11-20 12:00:[address] [facility] POCT-GLUCOSE METER 2019-11-20 07:51:00 [facility] BASIC METABOLIC PANEL (7) 2019-11-20 05:04:00 Amos Tavares [facility] MAGNESIUM 2019-11-20 05:04:00 Amos Tavares [facility] PHOSPHORUS 2019-11-20 05:04:00 Amos Tavares [facility] POCT-GLUCOSE METER 2019-11-19 21:15:[address] [facility] POCT-GLUCOSE METER 2019-11-19 17:39:[address] [facility] POCT-GLUCOSE METER 2019-11-19 12:18:[address] [facility] POCT-GLUCOSE METER 2019-11-19 07:30:[address] [facility] BASIC METABOLIC PANEL (7) 2019-11-19 05:19:00 Amos Tavares [facility] MAGNESIUM 2019-11-19 05:19:00 Amos Tavares [facility] PHOSPHORUS 2019-11-19 05:19:00 Amos Tavares [facility] POCT-GLUCOSE METER 2019-11-18 21:22:[address] [facility] TRANSFUSION SERVICE REPORT 2019-11-18 17:50:44 Jignesh [facility] POCT-GLUCOSE METER 2019-11-18 17:06:[address] [facility] POCT-GLUCOSE METER 2019-11-18 12:10:[address] [facility] POCT-GLUCOSE METER 2019-11-18 07:41:[address] [facility] BASIC METABOLIC PANEL (7) 2019-11-18 05:11:00 Amos Tavares [facility] MAGNESIUM 2019-11-18 05:11:00 Amos Tavares [facility] PHOSPHORUS 2019-11-18 05:11:00 Amos Tavares [facility] PT/APTT 2019-11-18 05:11:00 AngelaAmos haas [facility] PROTHROMBIN TIME/INR 2019-11-18 05:11:00 BlairAmos pierce [facility] CBC (HEMOGRAM ONLY) 2019-11-18 05:11:00 Amos Tavares [facility] POCT-GLUCOSE METER 2019-11-17 21:06:[address] [facility] TRANSFUSION SERVICE REPORT 2019-11-17 17:51:57 Provider, [facility] - - SCAN [facility] CARDIAC CATH REPORT - SCAN 2019-11-17 17:20:03 Provider, [facility] POCT-GLUCOSE METER 2019-11-17 11:26:[address] [facility] PREPARE RBC 2019-11-17 03:53:00 Shantelle [facility] B-TYPE NATRIURETIC FACTOR 2019-11-16 10:32:00 Raven [facility] (BNP) [facility] PROTHROMBIN TIME/INR 2019-11-16 10:32:00 Raven [facility] COMPREHENSIVE METABOLIC 2019-11-16 10:32:00 Raven [facility] TYPE AND SCREEN, AUTOMATED 2019-11-16 10:32:00 Raven [facility] CBC W/PLT COUNT & AUTO 2019-11-16 10:32:00 Raven [facility] VASCULAR DIAGRAM -SCAN 2019-11-15 16:10:52 Provider, [facility] RHYTHM STRIP - SCAN 2019-11-06 11:52:53 Provider, [facility] REPORT OF PROCEDURE - 2019-11-06 11:52:51 Provider, [facility] ENDOSCOPY SCAN [facility] VASCULAR DIAGRAM -SCAN 2019-11-06 11:52:47 Provider, [facility] CARDIAC CATH REPORT - SCAN 2019-11-06 11:52:39 Provider, [facility] CARDIAC CATH REPORT - SCAN 2019-11-06 11:52:37 Provider, Compa [facility] POCT-GLUCOSE METER 2019-11-04 07:40:00 AdJdue li [facility] POCT-GLUCOSE METER 2019-11-03 22:17:00 Adguillermo, Jude Ansari [facility] POCT-GLUCOSE METER 2019-11-03 18:18:00 Adguillermo, Jude Ansari [facility] NM BONE SCAN WHOLE BODY 2019-11-03 15:57:00 Adguillermo, uJde Ansari I [facility] POCT-GLUCOSE METER 2019-11-03 11:20:00 Adguillermo, Jude Ansari [facility] POCT-GLUCOSE METER 2019-11-03 07:51:00 Jude Overton [facility] COMPREHENSIVE METABOLIC 2019-11-03 03:56:00 Farrah Bhakta [facility] MAGNESIUM 2019-11-03 03:56:00 Farrah Bhakta [facility] PHOSPHORUS 2019-11-03 03:56:00 [facility] CBC W/PLT COUNT & AUTO 2019-11-03 03:56:00 Farrah Bhakta [facility] POCT-GLUCOSE METER 2019-11-02 21:55:00 Jude Overton [facility] PERIPHERAL VASCULAR REPORT 2019-11-02 21:11:20 Provider, [facility] CTA ABDOMEN & PELVIS 2019-11-02 19:17:00 Minna [facility] CTA CHEST 2019-11-02 19:17:00 Minna [facility] TRANSFUSION SERVICE REPORT 2019-11-02 17:52:21 Provider, [facility] POCT-GLUCOSE METER 2019-11-02 17:30:00 Jude Overton [facility] PULMONARY FUNCTION - SCAN 2019-11-02 15:02:13 Provider, Default [facility] POCT-GLUCOSE METER 2019-11-02 13:16:00 Adguillermo, Jude Ansari [facility] POCT-GLUCOSE METER 2019-11-02 13:06:00 Brooklynn, Jude Ansari [facility] POCT-GLUCOSE METER 2019-11-02 10:08:00 Brooklynn, Jude Ansari [facility] CAROTID DOPPLER BILATERAL 2019-11-02 09:27:[address] [facility] COMPREHENSIVE METABOLIC 2019-11-02 04:38:00 Farrah [facility] MAGNESIUM 2019-11-02 04:38:00 Farrah Bhakta [facility] PHOSPHORUS 2019-11-02 04:38:00 Farrah Bhakta [facility] CBC W/PLT COUNT & AUTO 2019-11-02 04:38:00 Farrah Bhakta [facility] POCT-GLUCOSE METER 2019-11-01 22:18:00 Jude Overton [facility] ECHOCARDIOGRAM REPORT - 2019-11-01 21:20:03 Provider, Default [facility] I [facility] SPIROMETRY 2019-11-01 17:02:00 Helio [facility]ago [facility] Center 2D ECHO W/ DOPPLER 2019-11-01 13:22:01 Helio Buitrago [facility] - (CW/PW/COLOR) [facility] POCT-GLUCOSE METER 2019-11-01 13:20:00 Jude Overton [facility] R & L CATH / CORONARY 2019-11-01 07:35:00 Helio Buitrago [facility] - ANGIOS (+/- LV) [facility] POCT-GLUCOSE METER 2019-11-01 06:25:00 Jude Overton [facility] ABORH, MANUAL 2019-11-01 05:53:00 Sangeetha Gunderson [facility] COMPREHENSIVE METABOLIC 2019-11-01 04:44:00 Farrah Bhakta [facility] MAGNESIUM 2019-11-01 04:44:00 Farrah Bhakta [facility] PHOSPHORUS 2019-11-01 04:44:00 Farrah Bhakta [facility] PROTHROMBIN TIME/INR 2019-11-01 04:44:00 Minna [facility] TYPE AND SCREEN, AUTOMATED 2019-11-01 04:44:00 Minna [facility] CBC W/PLT COUNT & AUTO 2019-11-01 04:44:00 Farrah Bhakta [facility] POCT-GLUCOSE METER 2019-11-01 00:02:00 Adio, [facility] POCT-GLUCOSE METER 2019-10-31 22:01:00 Adio, [facility] POCT-GLUCOSE METER 2019-10-31 17:34:00 Adio, [facility] POCT-GLUCOSE METER 2019-10-31 07:52:00 Adio, [facility] POCT-GLUCOSE METER 2019-10-31 06:30:00 [place] [facility] VENOUS DOPPLER LEGS 2019-10-30 18:00:00 Daniel Gonzalez [facility] CT CHEST PE TEST DESIGN 2019-10-30 17:29:00 Daniel Gonzalez [facility] BASIC METABOLIC PANEL (7) 2019-10-30 16:04:00 Bjorn Umana [facility] MAGNESIUM 2019-10-30 16:04:00 Bjorn Umana [facility] B-TYPE NATRIURETIC FACTOR 2019-10-30 16:04:00 Bjorn Umana [facility] (BNP) [facility] TROPONIN I 2019-10-30 16:04:00 Bjorn Umana [facility] PT/APTT 2019-10-30 16:04:00 Dong Bjorn Britt [facility] Medical [place] CBC W/PLT COUNT & AUTO 2019-10-30 16:04:00 Dong Bjorn Britt [facility] DIFFERENTIAL Medical Center XR CHEST 1 VIEW 2019-10-30 15:16:00 Dong Bjorn Mike es - PORTABLE/BEDSIDE Medical Center ECG 12-LEAD 2019-10-30 13:25:58 Unknown, Hl7 Doctor [facility] L ukes [facility] Plan of Care Planned Activity Planned Date Details Comments Source Future Scheduled 2022-11-[address] [facility] - Test 00:00:00 (procedure) [code = Medical Center 23039486] Future Scheduled 2020-05-[address] [facility] - Test 00:00:00 measurement [facility] Center (procedure) [code = 55102481] Future Scheduled 2020-04-30 INFLUENZA VACCINE (#1) C [...] es - Test 00:00:00 malignant neoplasm of [facility] cervix (procedure) [code = 120867060] Future Scheduled 1965 DIABETIC EYE EXAM [facility] - Test 00:00:00 [code = DIABETIC EYE Medical Center EXAM] Future Scheduled [address] [facility] - Test 00:00:00 examination Medical Center (regime/therapy) [code = 031665314] Future Scheduled 1967 Urine screening for [facility] - Test 00:00:00 protein (procedure) Medical Center [code = 872250704] Future Scheduled [address] [facility] - Test 00:00:00 2-64 YEARS AT RISK (1 Medica l Center of 1 - PPSV23) [code = PNEUMOCOCCAL VACCINE 2-64 YEARS AT RISK (1 of 1 - PPSV23)] Future Scheduled [address] [facility] - Test 00:00:00 malignant neoplasm of [facility] breast (procedure) [code = 870751922] Future Scheduled [address] [facility] - Test 00:00:00 malignant neoplasm of [facility] colon (procedure) [code = 433728738] Results Test Description Test Time Test Comments Results Result Comments Source SARS-CoV2/RT-PCR ([facility]) 2020-04-03 19:28:00 Test Item Value Reference Range Interpretation Comme nts SARS-COV2/RT-PCR (test code = Negative Not Detected, 89688-9) Negative, See external report for linked test SARS-COV-2 PERFORMING LAB [facility] BETSEY (test code = 70179-0) JANETTE (test code = JANETTE) Negative result for this test determines that SARS-CoV-2 RNA was not present in the specimen above the Limit of Detection (LOD). However, Negative results do not preclude SARS-CoV-2 infection and should not be used as the sole basis for treatment or patient management decisions. Negative results must be combined with clinical observations, patient history, and epidemiological information. A false negative result may occur if a specimen is improperly collected, transported or handled. A false negative result should be considered if patient's recent exposures or clinical presentation indicate that COVID-19 (SARS-CoV-2) is likely and diagnostic tests for other causes of illness are negative. Re-testing should be considered in cases of suspected [...] Food and Drug Administration (FDA) cleared or approved. This is a modified version of an approved [...] of the Act. Fact Sheet for Healthcare Providers:https://www.[employer]Castic. com/sites/default/files/produ ct/documents/Fact_Sheet_HC_Pr ngulrtx_Zrca_XOLF-ViG-2.pdf Fact Sheet for Healthcare Patients:https://www.[employer].Pro Stream + om/sites/default/files/produc t/documents/Fact_Sheet_Garcia coombsxf_Gcjb_WUPJ-HyM-0.pdf Performing Laboratory:[facility]ARS-COV2/RT-PCR ([facility])2020-04-03 19:28:00 Test Item Value Reference Range Interpretation Comments SARS-COV2/RT-PCR (test Negative Not Detected, Negative, code = 9818219) See external report for linked test SARS-COV-2 PERFORMING LAB [facility] (test code = 0030461) Negative result for this test determines that SARS-CoV-2 RNA was not present in the specimen above the Limit of Detection (LOD). However, Negative results do not preclude SARS-CoV-2 infection and should not be used as the sole basis for treatment or patient management decisions. Negative results mustbe combined with clinical observations, patient history, and epidemiological information. A false negative result may occur if a specimen is improperly collected, transported or handled. A false negative result should be considered if patient's recent exposures or clinical presentation indicate that COVID-19 (SARS-CoV-2) is likely and diagnostic tests for other causes of illness are negative. Re-testing should be considered in cases of suspected false negatives.The limit of detection for this assay is 800 copies/mL.This SARS CoV-2 test is a real-time RT-PCR test intended for the qualitative detection of nucleic acid from SARS-CoV-2 in a nasopharyngeal swab specimen collected from individuals susp ected of COVID-19 by their healthcare provider.This test has not been Food and Drug Administration (FDA) cleared or approved. This is a modified version of an approved [...] is revoked under Section 564(g) of the Act.Fact Sheet for Healthcare Providers:https://www.[employer]/sites/default/files/product/documents/Fact_Shewaldo copeq_EI_Tdlpoyqzr_Rzkk_PTMB-MlI-2.pdfFact Sheet for Healthcare Patients:https://www.[employer]/sites/default/files/product/ documents/Fmka_Vfrxa_Cbenljxn_Tpqm_FCOM-NnD-9.pdfPerforming Laboratory:[facility], [place] [address]S Echo W/Doppler(CW/PW/Color)2020-01-12 11:03:32Ejection FractionSLEH ECHO HEARTLAB MKCKESSON CPACSInterface, External Ris In - 01/12/2020 11:03 AM CDTTransthoracic Echocardiography Report (TTE) Demographics Patient Name QUIANA VALLADARES Date of Study 01/12/2020 KARINA Gender Female Visit Number [id number] Race Room Number 6102 Number Date of 1955 Referring Physician Age 64 year(s) Online Advertising Manager Viola Hargrove Interpreting Donato Beth MD Physician Procedure Type of Study TTE procedure:2DECHO W DOPPLER(CW/PW/COLOR) (STAT) Indications:Valvular Disease withchange in clinical symptoms and Patentforamen ovale (PFO).Clinical HistoryHGB 11.1HCT 34.3 %Acid RefluxAsthmaColon CancerDiabetes IIHypertensionTAVRContrast Medium: Definity. Amount - 2 mlHeight: 66 inches Weight: 56.7 kg (125 lbs) BSA: 1.64 m^2 BMI: 20.18 kg/m^2HR: 72 bpm BP: 121/65 mmHg Summary 1. The left ventricle is chamber size (by vol index) is mildly enlarged. Normal LV wall thickness. All ofthe LV segments have normal contractility . Estimated LVEF by qualitative assessment is lower limitsof normal (55%). Grade 1 diastolic dysfunction (impaired relaxation and low-normal LA pressure). 2.Normal right ventricle structure and function. Normal right atrium. Unable to estimate peak systolicPA pressure; inadequate TR velocity signal. 3. A [...] approximately 5 o''clock. . AoV dimensionless obstructive index(DOI)) is 0.5. Peak Grad;16 mmHg,Mean Grad; 8 mmHg. Mitral Valve Mild MV leaflet thickening. Trace mitral regurgitation. Tricuspid ValveA trace of tricuspid regurgitation. Unable to estimate [...] LVOT CO: 5.18 l/min LVOT CI: 3.16 l/min/m^2[facility] metabolic [id number] 05:44:00 Test Item Value Reference Range Interpretation Comments Sodium (test code = 136 meq/L 369-429 4517-2) Potassium (test code = 3.7 meq/L 3.5-5.1 Speci men slightly 2823-3) hemolyzed Chloride (test code = 106 meq/L 98-107 2075-0) CO2 (test code = 22 meq/L 22-29 2027-9) BUN (test code = 9 mg/dL 7-21 3094-0) Creatinine (test code 0.67 mg/dL 0.57-1.25 Specim en slightly = 2160-0) hemolyzed Glucose (test code = 146 mg/dL 70-105 H 2345-7) Calcium (test code = 8.2 mg/dL 8.4-10.2 L 93182-3) EGFR (test code = 89 mL/min/1.73 [place] [address]-5) NOT ACCURATE CREATININE CLEARANCE IN PREDICTING GLOMERULAR FILTRATION RATE . ESTIMATED GFR I S NOT APPLICABLE FOR DIALYSIS PATIENTS. JANETTE (test code = JANETTE) Chief Vendor Quality ID - KESHIA Walsh Lab Interpretation Abnormal (test code = 29330-8) [facility] METABOLIC [id number] 05:44:00 Test Item Value Reference Range Interpretation Comments SODIUM (BEAKER) 136 meq/L 136-145 (test code = 381) POTASSIUM (BEAKER) 3.7 meq/L 3.5-5.1 Specimen slightly (test code = 379) hemolyzed CHLORIDE (BEAKER) 106 meq/L 98-107 (test code = 382) CO2 (BEAKER) (test 22 meq/L -29 code = 355) BLOOD UREA NITROGEN 9 [...] S NOT APPLICABLE FOR DIALYSIS PATIEN TS. Chief Vendor Quality ID - KESHIA LCBC (Hemogram only)2020-01-12 05:09:00 Test Item Value [...] 450 K/CU MM MPV (test code = 23085-7) 9.1 fL 9.4-12.3 L nRBC (test code = 413) 0 0- 0 /100 WBC Lab Interpretation (test code = Abnormal 40025-1) [facility] (HEMOGRAM ONLY)2020-01-12 05:09:00 Test Item Value [...] = 413) RAD, CHEST, 1 VIEW, NON [id number] 04:42:00Reason for exam:->s/p PFO closure, SOBShould this [...] procedure changes.Additional findings: None. Signed: Silvano Bruce MDRadamort Verified Date/Time: 01/12/2020 04:42:15 [facility] [id number] 20:46:03Ejection FractionSLE ECHO HEARTLAB MKCKESSON CPACSInterface, External Ris In - 01/11/2020 8:46 PM C DTTransesophageal Echocardiography Report (LINDA) Demographics Patient Name QUIANA VALLADARES Date of Study 01/11/2020 KARINA Gender Female Visit Number [id number] Race Room Number 6102 Number Date of 1955 Referring Physician Helio Buitrago MD Age 64 year(s) Online Advertising Manager Rob Zurita Interpreting Donato Beth MD Physician Procedure Type [...] noted. Atrial septal position jim nuously bows zftt-bh-nlxwz, consistent with elevated LA pressure. There was [...] noted. Signature Findings Rhythm/BP Interventional LINDA (cpt 34011) for guidance of percutaneous intracardiac procedure. Left [...] is noted. Atrial septal position continuously bows tpob-py-fcirt, consistent with elevated LA pressure. PFO noted. [...] Doppler. Pericardium No significant pericardial effusion is visualized.[facility] 12 [id number] 13:40:23Interface, External Ris In - 01/11/2020 1:40 PM CDTVentricular Rate 66 BPMAtrial Rate 66 BPMP-R Interval 160 msQRS Duration 90 msQ-T Interval 426 msQTC Calculation(Bazett) 446 msP Ipava 76 degreesR Ipava 49 degreesT Ipava 51 degreesNormal sinus rhythmLow voltage QRSWithin normal limitsWhen compared withECG of 23-NOV-2019 11:50,Significant changes have occurredConfirmed by MD Orellana Roberto ([id number]) on 01/11/2020 1:40:18 [facility] ACTIVATED CLOTTING [id number] 11:12:00 Test Item Value Reference Range Interpretation Comments Activated Clotting Time 362 sec : 74 -137 seconds, (test code = 441) Baseline: TESTED AT [facility] [address] [facility], [facility] 30: Chief Vendor Quality/Techni logan ID = [id number] for TY BHATT [facility]-[id number] 11:12:00 Test Item Value Reference Range Interpretation Comments ACTIVATED CLOTTING TIME 362 sec : 74 -137 seconds, (BEAKER) (test code = Baseli ne: TESTED AT 441) [facility] [address] [place], [address]: Chief Vendor Quality/Techni logan ID = [id number] for TY BHATT SARS-COV2/RT-PCR ([facility])2020-01-09 16:43:00 Test Item Value Reference Range Interpretation Comments SARS-COV2/RT-PCR (test code = Negative Not Detected, Negative 3577476) SARS-COV-2 PERFORMING LAB [facility] (test code = 4490698) Type and screen, [id number] 10:33:00 Test Item Value Reference Range Interpretation Comments ABO/RH AUTOMATED (BEAKER) (test O POSITIVE code = 2260) Ab Scrn (test code = 890-4) NEGATIVE [facility] METABOLIC [id number] 10:02:00 Test Item Value Reference Range Interpretation [...] S NOT APPLICABLE FOR DIALYSIS PATIEN TS. Chief Vendor Quality ID - VARSHA [facility]BC (HEMOGRAM ONLY)2020-01-08 10:00:00 [...] 0-0 (BEAKER) (test code = 413) Prothrombin time/[id number] 09:55:00 Test Item Value Reference Range Interpretation [...] valves. Lab Interpretation Normal (test code = 15903-1) [facility] HospitalPROTHROMBIN TIME/[id number] 09:55:00 Test Item Value Reference Range Interpretation [...] is2.5-3.5 for patients wiht mechanical heart valves.POC-Glucose [id number] 08:22:00 Test Item Value Reference Range Interpretation Comments POC-Glucose Meter (test 115 mg/dL 70-110 H : TE STED AT [facility] code = 1538) [address] [facility], [address]: Chief Vendor Quality/Techni logan ID = [id number] for VIVIANE KINGSTON Lab Interpretation (test Abnormal code = 95448-0) [facility] HospitalPOCT[facility]SE [id number] 08:22:00 Test Item Value Reference Range Interpretation Comments POC-GLUCOSE METER 115 mg/dL 70-110 H : TESTED A T [facility] [address] (BEAKER) (test code = LORELEI Jordan [facility], 1538) [address]: Chief Vendor Quality/Techni logan ID = [id number] for VIVIANE PEREZ [id number] 04:20:00 Test Item Value Reference Range Interpretation Comments PTT (test code = 82.1 22.5- 36.0 seconds H 55361-4) JANETTE (test code = JANETTE) While on warfarin. Lab Interpretation (test Abnormal code = 48446-1) [facility] HospitalAPTT2020-04-09 04:20:00 Test Item Value Reference Range Interpretation Comments PARTIAL THROMBOPLASTIN TIME 82.1 seconds 22.5-36.0 H (BEAKER) (test code = 760) While on warfarin.PROTHROMBIN TIME/[id number] 04:18:00 Test Item Value Reference Range Interpretation [...] 0-0 (BEAKER) (test code = 413) POCT-GLUCOSE [id number] 21:22:00 Test Item Value Reference Range Interpretation Comments POC-GLUCOSE METER 139 mg/dL 70-110 H : TESTED A T [facility] [address] (BEAKER) (test code = LORELEI [place], 1538) [address]: Chief Vendor Quality/Techni logan ID = [id number] for GOLD MARIA INESLAUREN ANNIE [id number] 20:50:00 Test Item Value Reference Range Interpretation Comments PARTIAL THROMBOPLASTIN TIME 69.4 seconds 22.5-36.0 H (BEAKER) (test code = 760) POCT-GLUCOSE [id number] 17:20:00 Test Item Value Reference Range Interpretation Comments POC-GLUCOSE METER 134 mg/dL 70-110 H : TESTED A T [facility] [address] (BEAKER) (test code [facility], = 1538) [address]: Chief Vendor Quality/Techni logan ID = [id number] for DAYNE BAPTISTE [id number] 13:35:00 Test Item Value Reference Range Interpretation Comments PARTIAL THROMBOPLASTIN TIME 73.2 seconds 22.5-36.0 H (BEAKER) (test code = 760) POCT-GLUCOSE [id number] 11:44:00 Test Item Value Reference Range Interpretation Comments POC-GLUCOSE METER 81 mg/dL 70-110 : TESTED A T [facility] [address] (BEAKER) (test code [facility], = 1538) [address]: Chief Vendor Quality/Techni logan ID = [id number] for DECLAN BAPTISTEA POCT-GLUCOSE [id number] 08:22:00 Test Item Value Reference Range Interpretation Comments POC-GLUCOSE METER 105 mg/dL 70-110 : TESTED A T [facility] [address] (BEAKER) (test code [facility], = 1538) [address]: Chief Vendor Quality/Techni logan ID = [id number] for GARDENIAG DECLAN WALTONA [id number] 06:26:00 Test Item Value Reference Range Interpretation Comments PARTIAL THROMBOPLASTIN TIME 97.4 seconds 22.5-36.0 H (BEAKER) (test code = 760) While on warfarin.PROTHROMBIN TIME/[id number] 06:24:00 Test Item Value Reference Range Interpretation [...] wiht mechanical heart valves.While on warfarin.BASIC METABOLIC [id number] 06:22:00 Test Item Value Reference Range Interpretation [...] S NOT APPLICABLE FOR DIALYSIS PATIEN TS. Chief Vendor Quality ID - VARSHA [facility] (HEMOGRAM ONLY)2019-12-06 05:55:00 Test Item Value Reference [...] 150-450 code = 756) MEAN PLATELET VOLUME (AKER) 9.1 fL 9.4-12.3 L (test code = 754) NUCLEATED RED BLOOD CELLS 0 /100 WBC 0-0 (BEAKER) (test code = 413) [id number] 23:28:00 Test Item Value Reference Range Interpretation Comments PARTIAL THROMBOPLASTIN TIME 41.2 seconds 22.5-36.0 H ([facility]) (test code = 760) POCT-GLUCOSE [id number] 21:32:00 Test Item Value Reference Range Interpretation Comments POC-GLUCOSE METER 123 mg/dL 70-110 H : [facility]) (test code = LORELEI Jordan [facility], 1538) [address]: Chief Vendor Quality/Techni logan ID = [id number] for DE NNIS, ANNIE [id number] 21:24:00 Test Item Value Reference Range Interpretation Comments PARTIAL THROMBOPLASTIN TIME 75.2 seconds 22.5-36.0 H ([facility]) (test code = 760) POCT-GLUCOSE [id number] 16:35:00 Test Item Value Reference Range Interpretation Comments POC-GLUCOSE METER 174 mg/dL 70-110 H : Notified RN/MD: TESTED ([facility]) (test code AT [facility] 67[address] [facility] = 1538) [facility], [address] 30: Chief Vendor Quality/Techni logan ID = [id number] for TSEG GAI, TSIGHEREDA POCT-GLUCOSE [id number] 13:25:00 Test Item Value Reference Range Interpretation Comments POC-GLUCOSE METER 136 mg/dL 70-110 H : [facility]) (test code KORINA [facility], = 1538) [address]: Chief Vendor Quality/Techni logan ID = [id number] for TSEG GAI, TSIGHEREDA [id number] 13:02:00 Test Item Value Reference Range Interpretation Comments PARTIAL THROMBOPLASTIN TIME 102.3 seconds 22.5-36.0 H ([facility]) (test code = 760) Transesophageal [id number] 12:16:29Ejection FractionSLEH ECHO HEARTLAB MKCKESSON CPACSInterface, External Ris In - 12/05/2019 12:16 PM C DTTransesophageal Echocardiography Report (LINDA) Demographics Patient Name QUIANA VALLADARES Date of Study 12/05/2019 KARINA Gender Female Visit Number [id number] Race Room Number 2223 Number Date of 1955 Referring Physician Helio Buitrago MD Age 64 year(s) Online Advertising Manager Rob Zurita Interpreting Donato Beth MD Physician [...] is noted. Atrial septal position continuously bows pcwc-zi-vrobm, consistent with elevated LA pressure. Intermittently, with [...] bradycardia during the exam. 3D imaging (cpt 75607) rendering with interpretation was performed. Left Normal [...] Septum noted. Atrial septal position continuously bows pzht-pj-yvqab, consistent with elevated LA pressure. Intermittently, with [...] arch. Pericardium No significant pericardial effusion is visualized.[facility] POCT-GLUCOSE [id number] 07:44:00 Test Item Value Reference Range Interpretation Comments POC-GLUCOSE METER 122 mg/dL 70-110 H : TESTED A T [facility] [address] (BEAKER) (test code KORINA [facility], = 1538) [address]: Chief Vendor Quality/Techni logan ID = [id number] for DAYNE BAPTISTE [id number] 05:43:00 Test Item Value Reference Range Interpretation Comments PARTIAL THROMBOPLASTIN TIME 63.8 seconds 22.5-36.0 H (BEAKER) (test code = 760) While on warfarin.PROTHROMBIN TIME/[id number] 05:42:00 Test Item Value Reference Range Interpretation [...] 0-0 (BEAKER) (test code = 413) POCT-GLUCOSE [id number] 21:15:00 Test Item Value Reference Range Interpretation Comments POC-GLUCOSE METER 131 mg/dL 70-110 H : TESTED A T [facility] [address] (BEAKER) (test code = [facility], 1538) [address]: Chief Vendor Quality/Techni logan ID = [id number] for DE NNIS, ANNIE POCT-GLUCOSE [id number] 17:03:00 Test Item Value Reference Range Interpretation Comments POC-GLUCOSE METER 115 mg/dL 70-110 H : TESTED A T [facility] [address] (BEAKER) (test code [facility], = 1538) [address]: Chief Vendor Quality/Techni logan ID = [id number] for DAYNE BAPTISTE [id number] 15:42:00 Test Item Value Reference Range Interpretation Comments PARTIAL THROMBOPLASTIN TIME 79.2 seconds 22.5-36.0 H (AKER) (test code = 760) POCT-GLUCOSE [id number] 11:47:00 Test Item Value Reference Range Interpretation Comments POC-GLUCOSE METER 106 mg/dL 70-110 : TESTED A T [facility] [address] (BEAKER) (test code [facility], = 1538) [address]: Chief Vendor Quality/Techni logan ID = [id number] for GARDENIAG GADECLAN LozanoA BASIC METABOLIC [id number] 08:29:00 Test Item Value Reference Range Interpretation Comments SODIUM (BEAKER) 131 meq/L 136-145 L (test code = 381) POTASSIUM (BEAKER) 4.2 meq/L 3.5-5.1 Specimen slightly (test code = 379) hemolyzed CHLORIDE (BEAKER) 101 meq/L 98-107 (test code = 382) CO2 (BEAKER) (test 25 meq/L - code = 355) BLOOD UREA NITROGEN 12 [...] S NOT APPLICABLE FOR DIALYSIS PATIEN TS. Chief Vendor Quality ID - EVELYNCT-GLUCOSE [id number] 08:24:00 Test Item Value Reference Range Interpretation Comments POC-GLUCOSE METER 111 mg/dL 70-110 H : TESTED A T [facility] [address] (BEAKER) (test code [facility], = 1538) [address]: Chief Vendor Quality/Techni logan ID = [id number] for DAYNE BAPTISTE PT/[id number] 08:04:00 Test Item Value Reference Range Interpretation Comments Protime (test code = 15.9 11.9- 14.2 H 5902-2) seconds INR (test code = 1.3 <=5.9 6301-6) PTT (test code = 90.4 22.5- 36.0 H 70850-9) seconds JANETTE (test code = JANETTE) Effective 01/25/2019: PT Reference Range ChangeNew: 11.9-14.2 Previous: 11.7-14.7 RECOMMENDED COUMADIN/WARFARIN INR THERAPY RANGESSTANDARD DOSE: 2.0-3.0 Includes: PROPHYLAXIS for venous thrombosis, systemic embolization; TREATMENT for venous thrombosis and/or pulmonary embolus.HIGH RISK: Target INR is 2.5-3.5 for patients wiht mechanical heart valves. While on warfarin.While on warfarin. Lab Interpretation Abnormal (test code = 45556-1) [facility]PT/[id number] 08:04:00 Test Item Value Reference Range Interpretation [...] heart valves.While on warfarin.While on warfarin. PROTHROMBIN TIME/[id number] 08:02:00 Test Item Value Reference Range Interpretation [...] WBC 0-0 (BEAKER) (test code = 413) PT/[id number] 23:55:00 Test Item Value Reference Range Interpretation [...] is2.5-3.5 for patients wiht mechanical heart valves.POCT-GLUCOSE [id number] 21:15:00 Test Item Value Reference Range Interpretation Comments POC-GLUCOSE METER 112 mg/dL 70-110 H : TESTED A T [facility] [address] (BEAKER) (test code = [place], 1538) [address]: Chief Vendor Quality/Techni logan ID = [id number] for CILEO HERNANDEZ PT/[id number] 17:19:00 Test Item Value Reference Range Interpretation [...] is2.5-3.5 for patients wiht mechanical heart valves.POCT-GLUCOSE [id number] 17:06:00 Test Item Value Reference Range Interpretation Comments POC-GLUCOSE METER 143 mg/dL 70-110 H : TESTED A T [facility] 6720 (BEAKER) (test code = [facility], 1538) 48183: Chief Vendor Quality/Techni logan ID = [id number] for AN GRAY, JUANJOSETERA POCT-GLUCOSE [id number] 11:39:00 Test Item Value Reference Range Interpretation Comments POC-GLUCOSE METER 128 mg/dL 70-110 H : TESTED A T [facility] 6720 (BEAKER) (test code = [facility], 1538) 38906: Chief Vendor Quality/Techni logan ID = [id number] for AN GRAY, JUANJOSETERA POCT-GLUCOSE [id number] 08:01:00 Test Item Value Reference Range Interpretation Comments POC-GLUCOSE METER 96 mg/dL 70-110 : TESTED A T [facility] 6720 (BEAKER) (test code = [facility], 1538) 57627: Chief Vendor Quality/Techni logan ID = [id number] for MILI MON[place], JUANJOSETERA PT/[id number] 06:28:00 Test Item Value Reference Range Interpretation [...] heart valves.While on warfarin.While on warfarin. PROTHROMBIN TIME/[id number] 06:12:00 Test Item Value Reference Range Interpretation [...] 0-0 (BEAKER) (test code = 413) POCT-GLUCOSE [id number] 20:49:00 Test Item Value Reference Range Interpretation Comments POC-GLUCOSE METER 102 mg/dL 70-110 : TESTED A T [facility] 6720 (BEAKER) (test code = [facility], [facility]) 07803: Chief Vendor Quality/Techni logan ID = [id number] for DO VE, CHEKARA POCT-GLUCOSE [id number] 18:32:00 Test Item Value Reference Range Interpretation Comments POC-GLUCOSE METER 132 mg/dL 70-110 H : TESTED A T [facility] 6720 (BEAKER) (test code = [facility], [facility]) 11891: Chief Vendor Quality/Techni logan ID = [id number] for AK INSONU, PEEWEE POCT-GLUCOSE [id number] 18:28:00 Test Item Value Reference Range Interpretation Comments POC-GLUCOSE METER 85 mg/dL 70-110 : TESTED A T [facility] 6720 (BEAKER) (test code = [facility], [facility]) 84323: Chief Vendor Quality/Techni logan ID = [id number] for LUPE TAYO, PEEWEE POCT-GLUCOSE [id number] 18:26:00 Test Item Value Reference Range Interpretation Comments POC-GLUCOSE METER 111 mg/dL 70-110 H : TESTED A T [facility] 6720 (BEAKER) (test code = [facility], [facility]) 16304: Chief Vendor Quality/Techni logan ID = [id number] for Sebastian Soto POCT-GLUCOSE [id number] 18:24:00 Test Item Value Reference Range Interpretation Comments POC-GLUCOSE METER 104 mg/dL 70-110 : TESTED A T [facility] 6720 (BEAKER) (test code = [facility], [facility]) 55931: Chief Vendor Quality/Techni logan ID = [id number] for AK INSONU, PEEWEE [id number] 06:50:00 Test Item Value Reference Range Interpretation Comments D-Dimer, Quant (test code 0.42 <0.50 MG/L FEU = 34421-7) JANETTE (test code = JANETTE) Intended Use: [...] warfarin. Lab Interpretation (test Normal code = 50427-3) [id number] 06:50:00 Test Item Value Reference Range Interpretation [...] of thrombosis is within 95-100% range.While on warfarin.PT/[id number] 06:49:00 Test Item Value Reference Range Interpretation [...] heart valves.While on warfarin.While on warfarin. PROTHROMBIN TIME/[id number] 06:47:00 Test Item Value Reference Range Interpretation [...] WBC 0-0 (BEAKER) (test code = 413) [id number] 01:34:00 Test Item Value Reference Range Interpretation Comments PARTIAL THROMBOPLASTIN TIME 91.6 seconds 22.5-36.0 H (BEAKER) (test code = 760) POCT-GLUCOSE [id number] 20:46:00 Test Item Value Reference Range Interpretation Comments POC-GLUCOSE METER 118 mg/dL 70-110 H : TESTED A T [facility] 6720 (BEAKER) (test code = [place], 1538) 25869: Chief Vendor Quality/Techni logan ID = [id number] for DE MARIA INESLAUREN ANNIE [id number] 17:59:00 Test Item Value Reference Range Interpretation Comments PARTIAL THROMBOPLASTIN TIME 78.3 seconds 22.5-36.0 H (MIKE) (test code = 760) POCT-GLUCOSE [id number] 17:22:00 Test Item Value Reference Range Interpretation Comments POC-GLUCOSE METER 144 mg/dL 70-110 H : TESTED A T [facility] 6720 (MIKE) (test code = [place], 1538) 85918: Chief Vendor Quality/Techni logan ID = [id number] for PEEWEE OTERO Venous doppler legs [id number] 13:05:55Ejection FractionSLE ECHO HEARTLAB MKCKESSON CPACSRight Impression1. There is [...] of Study 12/01/2019 Age 64 Visit Number [id number] Gender Female Accession Number [id number] Date of 1955 Referring Nickolas Ku Room Number 2223 Physician MD Nicolasa Online Advertising Manager Nomi Lara [facility] Interpreting Physician JONO Kowalski ProcedureType of Study: Veins: Lower Extremities DVT [...] in cm/s ; Diameters are measured in [facility] POCT-GLUCOSE [id number] 12:55:00 Test Item Value Reference Range Interpretation Comments POC-GLUCOSE METER 100 mg/dL 70-110 : TESTED A T [facility] 6720 ([facility]) (test code = [place] [facility], 1538) 25618: Chief Vendor Quality/Techni logan ID = [id number] for PEEWEE OTERO [id number] 10:36:00 Test Item Value Reference Range Interpretation Comments PARTIAL THROMBOPLASTIN TIME 52.8 seconds 22.5-36.0 H ([facility]) (test code = 760) CBC (HEMOGRAM ONLY)2019-12-01 10:34:00 Test Item Value Reference Range Interpretation Comments WHITE BLOOD CELL COUNT ([facility]) 6.4 K/ L 3.5-10.5 (test code = 775) RED BLOOD CELL COUNT ([facility]) 3.31 M/ L 3.93-5.22 L (test code = 761) HEMOGLOBIN (AKER) (test code = 11.1 GM/DL 11.2-15.7 L [...] 0-0 (BEAKER) (test code = 413) POCT-GLUCOSE [id number] 08:11:00 Test Item Value Reference Range Interpretation Comments POC-GLUCOSE METER 99 mg/dL 70-110 : [facility] (test code = [place] [facility], 1538) 25884: Chief Vendor Quality/Techni logan ID = [id number] for PEEWEE WILSON [id number] 02:54:00 Test Item Value Reference Range Interpretation Comments PARTIAL THROMBOPLASTIN TIME 42.2 seconds 22.5-36.0 H (BEAKER) (test code = 760) PT/[id number] 00:16:00 Test Item Value Reference Range Interpretation [...] is2.5-3.5 for patients wiht mechanical heart valves.POCT-GLUCOSE [id number] 21:16:00 Test Item Value Reference Range Interpretation Comments POC-GLUCOSE METER 125 mg/dL 70-110 H : TESTED A T [facility] 6720 (BEAKER) (test code = [place], 1538) 93884: Chief Vendor Quality/Techni logan ID = [id number] for DE NNLAUREN ANNIE POCT-GLUCOSE [id number] 18:00:00 Test Item Value Reference Range Interpretation Comments POC-GLUCOSE METER 126 mg/dL 70-110 H : TESTED A T [facility] 6720 (BEAKER) (test code = [place] [facility], 1538) 96055: Chief Vendor Quality/Techni logan ID = [id number] for RO MAMIE SHIRLEY 2D Echo W/Doppler(CW/PW/Color)2019-11-30 17:12:06Ejection FractionSLEH ECHO HEARTLAB MKCKESSON CPACSInterface, External Ris In - 11/30/2019 5:12 PM C DTTransthoracic Echocardiography Report (TTE) Demographics Patient Name QUIANA VALLADARES Date ofStudy 11/30/2019 KARINA Gender Female Visit Number [id number] Race Room Number [id number] Number Date of 1955 Referring Physician Briseida blunt MD Age 64 year(s) Online Advertising Manager Viola Hargrove Interpreting Donato Beth MD Physician Procedure Type of Study TTE procedure:2DECHO W D OPPLER(CW/PW/COLOR) (Routine) Indications:Suspected cardiac source of emboli.Clinical HistoryFormer [...] LVOT CO: 3.48 l/min LVOT CI: 2.26 l/min/m^2C[facility] GardenaAPTT2020-04-02 16:10:00 Test Item Value Reference Range Interpretation Comments PARTIAL THROMBOPLASTIN TIME 28.0 seconds 22.5-36.0 (BEAKER) (test code = 760) POCT-GLUCOSE [id number] 12:43:00 Test Item Value Reference Range Interpretation Comments POC-GLUCOSE METER 94 mg/dL 70-110 : TESTED A T [facility] 6720 (BEAKER) (test code = [facility], 1538) 68002: Chief Vendor Quality/Techni logan ID = [id number] for MAMIE RIGGS POCT-GLUCOSE [id number] 08:13:00 Test Item Value Reference Range Interpretation Comments POC-GLUCOSE METER 121 mg/dL 70-110 H : TESTED A T [facility] 6720 (BEAKER) (test code = [facility], 1538) 34991: Chief Vendor Quality/Techni logan ID = [id number] for MAMIE UMAÑA [id number] 04:38:00 Test Item Value Reference Range Interpretation [...] code = 413) MR, MRA, BRAIN, WITHOUT [id number] 23:14:00Reason for exam:->Ischemic Stroke EvaluationFINAL REPORT MR, [...] shift or hydrocephalus. No acute intracranial hemorrhage. Mlfb-gj-irebxbjp nonspecific supratentorial and infratentorial white matter T2 [...] the cervical or cranial circulation. Signed: Silvano Bruceort Verified Date/Time: 11/29/2019 23:14:20 MR, MRA, NECK, WITHOUT IV [id number] 23:14:00Reason for exam:->Ischemic Stroke EvaluationFINAL REPORT MR, [...] shift or hydrocephalus. No acute intracranial hemorrhage. Ezmm-gu-uluzicrh nonspecific supratentorial and infratentorial white matter T2 [...] cervical or cranial circulation. Signed: Silvano Bruce MDRepsaint luke[facility] hospital Verified Date/Time: 11/29/2019 23:14:20 MR, BRAIN, WITHOUT [id number] 23:14:00Reason for exam:->Ischemic Stroke EvaluationFINAL REPORT MR, [...] shift or hydrocephalus. No acute intracranial hemorrhage. Iuet-ar-spzbekon nonspecific supratentorial and infratentorial white matter T2 [...] Date/Time: 11/29/2019 23:14:20 MRA head without IV [id number] 23:14:00Interface, External Ris In - 11/29/2019 11:16 [...] or hydrocephalus. No a cute intracranial hemorrhage. Hovw-bi-lpkirxkm nonspecific supratentorial and infratentorial white matter T2 [...] Silvano Bruce MDReport Verified Date/Time: 11/29/2019 23:14:20 [facility] without IV [id number] 23:14:00Interface, External Ris In - 11/29/2019 11:16 [...] shift or hydrocephalus. No acute intracranial hemorrhage. Rhrt-ce-pnalplby nonspecific supratentorial and infratentorial white matter T2 [...] Silvano Bruce MDReport Verified Date/Time: 11/29/2019 23:14:20 [facility] HospitalMR brain without IV [id number] 23:14:00Interface, External Ris In - 11/29/2019 11:16 [...] shift or hydrocephalus. No acute intracranial hemorrhage. Hesx-ap-aexqpagi nonspecific supratentorial and infratentorial white matter T2 [...] Silvano Bruce MDReport Verified Date/Time: 11/29/2019 23:14:20 [facility] HospitalTSH/Free T4 If [id number] 22:52:00 Test Item Value Reference Range Interpretation Comments TSH (test code = 18177-5) 0.87 0.35- 4.94 uIU/mL JANETTE (test code = JANETTE) Chief Vendor Quality ID - DB Lab Interpretation (test Normal code = 13181-4) [facility] HospitalVitamin B12 and [id number] 22:52:00 Test Item Value Reference Range Interpretation Comments Vitamin B12 (test code = 335 pg/mL 313-695 9349-9) Folate (test code = 2284-8) 11.7 ng/mL >=7.0 JANETTE (test code = JANETTE) Chief Vendor Quality ID - DB Lab Interpretation (test Normal code = 68054-7) [facility] HospitalTS/FREE T4 IF [id number] 22:52:00 Test Item Value Reference Range Interpretation Comments THYROID STIMULATING HORMONE 0.87 uIU/mL 0.35-4.94 (BEAKER) (test code = 772) Chief Vendor Quality ID - DBVITAMIN B12 AND [id number] 22:52:00 Test Item Value Reference Range Interpretation Comments VITAMIN B12 (BEAKER) (test code = 335 pg/mL 213-816 774) FOLATE (BEAKER) (test code = 362) 11.7 ng/mL >=7.0 Chief Vendor Quality ID - DBHemoglobin [id number] 22:12:00 Test Item Value Reference Range Interpretation Comments Hemoglobin A1C (test code = 4548-4) 5.7 % 4.3-6.1 Lab Interpretation (test code = Normal 01225-9) [facility] HospitalHEMOGLOBIN [id number] 22:12:00 Test Item Value Reference Range Interpretation Comments HEMOGLOBIN A1C (BEAKER) (test code = 5.7 % 4.3-6.1 368) Lipid [id number] 21:49:00 Test Item Value Reference Range Interpretation Comments Triglycerides (test 143 mg/dL code = 2571-8) Cholesterol (test code 158 mg/dL = 2093-3) HDL (test code = 45 mg/dL 2085-9) LDL Calculated (test 84 mg/dL code = 81525-8) JANETTE (test code = JANETTE) Triglyceride Reference Range: Low Risk <150 Borderline 150-199 High Risk 200-499 Very High Risk >=500 Cholesterol Reference Range: Low Risk <200 Borderline 200-239 High Risk >240 HDL Cholesterol Reference Range: Low Risk >=60 High Risk <40 LDL Cholesterol Reference Range: Optimal <100 Near Optimal 100-129 Borderline 130-159 High 160-189 Very High >=190 Chief Vendor Quality ID - DB [facility] HospitalLIPID [id number] 21:49:00 Test Item Value Reference Range Interpretation Comments TRIGLYCERIDES (BEAKER) (test code = 143 mg/dL 540) CHOLESTEROL (BEAKER) (test code = 158 mg/dL 631) HDL CHOLESTEROL (BEAKER) (test code 45 mg/dL = 976) LDL CHOLESTEROL CALCULATED (BEAKER) 84 mg/dL (test code = 633) Triglyceride Reference Range: Low Risk <150 Borderline 150-199 High Risk 200-499 Very High Risk >=500Cholesterol Reference Range: Low Risk <200 Borderline 200-239 High Risk >240HDL Cholesterol Reference Range: Low Risk >=60 High Risk <40LDL Cholesterol Reference Range: Optimal <100 Near Optimal 100-129 Borderline 130-159 High 160-189 Very High >=190 Chief Vendor Quality ID - [id number] 21:41:00 Test Item Value Reference Range Interpretation Comments PARTIAL THROMBOPLASTIN TIME 29.8 seconds 22.5-36.0 (BEAKER) (test code = 760) 6 hours after starting heparin infusion and as indicated per sliding scale Platelet [id number] 21:32:00 Test Item Value Reference Range Interpretation Comments Platelets (test code = 256 150- 450 K/CU MM 777-3) JANETTE (test code = JANETTE) Chief Vendor Quality ID - [id number] Lab Interpretation (test Normal code = 07785-3) [facility] HospitalPLATELET [id number] 21:32:00 Test Item Value Reference Range Interpretation Comments PLATELET COUNT (BEAKER) (test 256 K/CU MM 150-450 code = 756) Chief Vendor Quality ID - [id number]-GLUCOSE [id number] 20:07:00 Test Item Value Reference Range Interpretation Comments POC-GLUCOSE METER 114 mg/dL 70-110 H : TESTED A T [facility] 6720 (BEAKER) (test code = [facility], 1538) 73695: Chief Vendor Quality/Techni logan ID = [id number] for AZIZA HILTON POCT-GLUCOSE [id number] 12:13:00 Test Item Value Reference Range Interpretation Comments POC-GLUCOSE METER 142 mg/dL 70-110 H : TESTED A T [facility] 6720 (BEAKER) (test code = [facility], 1538) 40690: Chief Vendor Quality/Techni logan ID = [id number] for RAJESH MIMS POCT-GLUCOSE [id number] 08:40:00 Test Item Value Reference Range Interpretation Comments POC-GLUCOSE METER 93 mg/dL 70-110 : TESTED A T [facility] 6720 (BEAKER) (test code = [facility], 1538) 29373: Chief Vendor Quality/Techni logan ID = [id number] for MURIEL MORRISSEYWITHChandan [id number] 06:28:00 Test Item Value Reference Range Interpretation Comments Magnesium (test code = 2.1 mg/dL 1.6-2.6 98629-2) JANETTE (test code = JANETTE) Chief Vendor Quality ID - DB Lab Interpretation (test Normal code = 00988-7) [facility] HospitalPhosphorus2020-03-29 06:28:00 Test Item Value Reference Range Interpretation Comments Phosphorus (test code = 4.3 mg/dL 2.3-4.7 2777-1) JANETTE (test code = JANETTE) Chief Vendor Quality ID - DB Lab Interpretation (test Normal code = 70328-1) [facility] HospitalPHOSPHORUS2020-03-29 06:28:00 Test Item Value Reference Range Interpretation Comments PHOSPHORUS (BEAKER) (test code = 4.3 mg/dL 2.3-4.7 604) Chief Vendor Quality ID - [id number] 06:28:00 Test Item Value Reference Range Interpretation Comments MAGNESIUM (BEAKER) (test code = 2.1 mg/dL 1.6-2.6 627) Chief Vendor Quality ID - DBBASIC METABOLIC [id number] 06:28:00 Test Item Value Reference Range Interpretation [...] S NOT APPLICABLE FOR DIALYSIS PATIEN TS. Chief Vendor Quality ID - [id number] 05:12:00 Test Item Value Reference Range Interpretation Comments PARTIAL THROMBOPLASTIN TIME 30.3 seconds 22.5-36.0 (BEAKER) (test code = 760) PROTHROMBIN TIME/[id number] 05:11:00 Test Item Value Reference Range Interpretation [...] 0-0 (BEAKER) (test code = 413) POCT-GLUCOSE [id number] 21:38:00 Test Item Value Reference Range Interpretation Comments POC-GLUCOSE METER 141 mg/dL 70-110 H : TESTED A T [facility] 6720 (BEAKER) (test code = [facility], 153) 39863: Chief Vendor Quality/Techni logan ID = [id number] for DANIELLE CARTER SE POCT-GLUCOSE [id number] 18:28:00 Test Item Value Reference Range Interpretation Comments POC-GLUCOSE METER 94 mg/dL 70-110 : TESTED A T [facility] 6720 (BEAKER) (test code = [facility], 153) 87506: Chief Vendor Quality/Techni logan ID = [id number] for RAJESH MORRISSEY POCT-GLUCOSE [id number] 17:00:00 Test Item Value Reference Range Interpretation Comments POC-GLUCOSE METER 100 mg/dL 70-110 : TESTED A T [facility] 6720 (BEAKER) (test code = [facility], 1538) 98908: Chief Vendor Quality/Techni logan ID = [id number] for KELLY RUDOLPH POCT-GLUCOSE [id number] 12:02:00 Test Item Value Reference Range Interpretation Comments POC-GLUCOSE METER 196 mg/dL 70-110 H : TESTED A T [facility] 6720 (BEAKER) (test code = [place] [facility], 1538) 59103: Chief Vendor Quality/Techni logan ID = [id number] for MURIEL MIMSWITHA POCT-GLUCOSE [id number] 08:12:00 Test Item Value Reference Range Interpretation Comments POC-GLUCOSE METER 119 mg/dL 70-110 H : TESTED A T [facility] 6720 (BEAKER) (test code = [facility], 1538) 66121: Chief Vendor Quality/Techni logan ID = [id number] for MOOKIE SUAREZ, MURIELWITHA [id number] 05:45:00 Test Item Value Reference Range Interpretation Comments PHOSPHORUS (BEAKER) (test code = 5.2 mg/dL 2.3-4.7 H 604) Chief Vendor Quality ID - KESHIA [id number] 05:45:00 Test Item Value Reference Range Interpretation Comments MAGNESIUM (BEAKER) (test code = 1.9 mg/dL 1.6-2.6 627) Chief Vendor Quality ID - KESHIA LBASIC METABOLIC [id number] 05:45:00 Test Item Value Reference Range Interpretation [...] S NOT APPLICABLE FOR DIALYSIS PATIEN TS. Chief Vendor Quality ID - PIAYA LPROTHROMBIN TIME/[id number] 05:42:00 Test Item Value Reference Range Interpretation [...] INR is2.5-3.5 for patients wiht mechanical heart valves.[id number] 05:42:00 Test Item Value Reference Range Interpretation [...] 0-0 (BEAKER) (test code = 413) POCT-GLUCOSE [id number] 21:27:00 Test Item Value Reference Range Interpretation Comments POC-GLUCOSE METER 139 mg/dL 70-110 H : TESTED A T [facility] 6720 (BEAKER) (test code = [facility], 1538) 21891: Chief Vendor Quality/Techni logan ID = [id number] for DANIELLE CARTER SE POCT-GLUCOSE [id number] 12:27:00 Test Item Value Reference Range Interpretation Comments POC-GLUCOSE METER 149 mg/dL 70-110 H : TESTED A T [facility] 6720 (BEAKER) (test code = [facility], 1538) 35862: Chief Vendor Quality/Techni logan ID = [id number] for KELLY RUDOLPH CT, BRAIN, WITHOUT [id number] 11:04:00FINAL REPORT CT Head without contrast CLINICAL [...] MDReport Verified Date/Time: 11/24/2019 11:04:11 Reading Location: [facility] C013V Neuro Reading Room CT brain without IV [id number] 11:04:00Interface, External Ris In - 11/24/2019 11:06 [...] MDReport Verified Date/Time: 11/24/2019 11:04:11 Reading Location: [address] Neuro Reading [facility] [id number] 08:10:00 Test Item Value Reference Range Interpretation Comments POC-GLUCOSE METER 112 mg/dL 70-110 H : [facility] (test code = LORELEI Jordan [facility], 1538) 31352: Chief Vendor Quality/Techni logan ID = [id number] for KELLY RUDOLPH [id number] 05:13:00 Test Item Value Reference Range Interpretation Comments PHOSPHORUS (BEAKER) (test code = 3.9 mg/dL 2.3-4.7 604) Chief Vendor Quality ID - KESHIA [id number] 05:13:00 Test Item Value Reference Range Interpretation Comments MAGNESIUM (BEAKER) (test code = 2.2 mg/dL 1.6-2.6 627) Chief Vendor Quality ID - KESHIA LBASIC METABOLIC [id number] 05:13:00 Test Item Value Reference Range Interpretation [...] S NOT APPLICABLE FOR DIALYSIS PATIEN TS. Chief Vendor Quality ID - PIYANELY [id number] 05:06:00 Test Item Value Reference Range Interpretation Comments PARTIAL THROMBOPLASTIN TIME 31.0 seconds 22.5-36.0 (BEAKER) (test code = 760) PROTHROMBIN TIME/[id number] 05:05:00 Test Item Value Reference Range Interpretation [...] 0-0 (BEAKER) (test code = 413) POCT-GLUCOSE [id number] 21:40:00 Test Item Value Reference Range Interpretation Comments POC-GLUCOSE METER 89 mg/dL 70-110 : TESTED A T [facility] 6720 ([facility]) (test code = [facility] Nikki [facility], 1538) 74919: Chief Vendor Quality/Techni logan ID = [id number] for CLEVELAND DIAMOND 2D Echo W/Doppler(CW/PW/Color)2019-11-23 15:20:12Ejection FractionSLEH ECHO HEARTLAB MKCKESSON CPACSInterface, External Ris In - 11/23/2019 3:20 PM C DTTransthoracic Echocardiography Report (TTE) Demographics Patient Name QUIANA VALLADARES Date of Study 11/23/2019 KARINA Gender Female Visit Number [id number] Race Room Number 2CV24 Number Date of 1955 Referring Jonathan Morillo Physician MD Shantelle Age 64 year(s) Online Advertising Manager Karla Quintero [facility] Air Shovel Operator Remy Arizmendi Interpreting Donato Beth MD Physician [...] LVOT CO: 3.98 l/min LVOT CI: 2.52 l/min/m^2[facility] POCT-GLUCOSE [id number] 13:43:00 Test Item Value Reference Range Interpretation Comments POC-GLUCOSE METER 100 mg/dL 70-110 : TESTED A T [facility] 6720 (BEAKER) (test code = [place], 1538) 95251: Chief Vendor Quality/Techni logan ID = [id number] for KELLY RUDOLPH CBC with platelet count + automated [id number] 03:48:00 Test Item Value Reference Range Interpretation [...] 450 K/CU MM MPV (test code = 09993-9) 8.9 fL 9.4-12.3 L nRBC (test code [...] 2801) Lab Interpretation (test code = Abnormal 74944-9) [facility] W/PLT COUNT & AUTO [id number] 03:48:00 Test Item Value Reference Range Interpretation [...] 0-1 PERCENT (BEAKER) (test code = 2801) [id number] 03:47:00 Test Item Value Reference Range Interpretation Comments PHOSPHORUS (BEAKER) (test code = 3.6 mg/dL 2.3-4.7 604) Chief Vendor Quality ID - VARSHA [id number] 03:47:00 Test Item Value Reference Range Interpretation Comments MAGNESIUM (BEAKER) (test code = 2.2 mg/dL 1.6-2.6 627) Chief Vendor Quality ID - VARSHA MBASIC METABOLIC [id number] 03:47:00 Test Item Value Reference Range Interpretation [...] S NOT APPLICABLE FOR DIALYSIS PATIEN TS. Chief Vendor Quality ID - VARSHA [id number] 03:43:00 Test Item Value Reference Range Interpretation Comments PARTIAL THROMBOPLASTIN TIME 29.4 seconds 22.5-36.0 (BEAKER) (test code = 760) PROTHROMBIN TIME/[id number] 03:42:00 Test Item Value Reference Range Interpretation [...] INR is2.5-3.5 for patients wiht mechanical heart valves.GZEK-[id number] 14:03:00 Test Item Value Reference Range Interpretation Comments ACTIVATED CLOTTING TIME 400 sec : 74 -137 seconds, (BEAKER) (test code = Baseli ne: TESTED AT 441) [address], [facility] 30: Chief Vendor Quality/Techni logan ID = [id number] for ALISON BROUSSARD [id number] 14:02:00 Test Item Value Reference Range Interpretation Comments ACTIVATED CLOTTING TIME 285 sec : 74 -137 seconds, (BEAKER) (test code = Baseli ne: TESTED AT 441) [address], [facility] 30: Chief Vendor Quality/Techni logan ID = [id number] for ALISON BROUSSARD RAD, CHEST, 1 VIEW, NON [id number] 11:37:00Reason for exam:->Post-op TAVRShould this be performed [...] Graham Verified Date/Time: 11/22/2019 11:37:14 Reading Location: [address] Radiology Reading Room [id number] 11:08:00 Test Item Value Reference Range Interpretation Comments PHOSPHORUS (BEAKER) (test code = 3.5 mg/dL 2.3-4.7 604) Chief Vendor Quality ID - BRIONNA [id number] 11:08:00 Test Item Value Reference Range Interpretation Comments MAGNESIUM (BEAKER) (test code = 2.2 mg/dL 1.6-2.6 627) Chief Vendor Quality ID - BRIONNA FBASIC METABOLIC [id number] 11:08:00 Test Item Value Reference Range Interpretation [...] S NOT APPLICABLE FOR DIALYSIS PATIEN TS. Chief Vendor Quality ID - BRIONNA [id number] 11:06:00 Test Item Value Reference Range Interpretation Comments PARTIAL THROMBOPLASTIN TIME 29.9 seconds 22.5-36.0 (BEAKER) (test code = 760) PROTHROMBIN [id number] 11:05:00 Test Item Value Reference Range Interpretation [...] mechanical heart valves.CBC W/PLT COUNT & AUTO [id number] 11:03:00 Test Item Value Reference Range Interpretation [...] (BEAKER) (test code = 2801) Blood gas, [id number] 10:54:00 Test Item Value Reference Range Interpretation Comments pH, Arterial (test code = 2744-1) 7.41 7.35-7.45 pCO2, Arterial (test code = 43 35- 45 mmHg 2019-03) pO2, Arterial (test code = 2703-7) 97 80- 90 mmHg H O2 Sat, Arterial (test code = 97.5 % 96-97 H 2707-6) HCO3, Arterial (test code = 27 mmol/L 21-29 1960-4) Base Excess, Arterial (test code = 1.9 mmol/L -2-3 1925-7) Patient Temperature (test code = 36.8 C 8310-5) FIO2 (test code = 1819) 36 % Lab Interpretation (test code = Abnormal 06426-2) [facility] [id number] 10:54:00 Test Item Value Reference Range Interpretation Comments Hemoglobin (test code = 786-4) 11.0 g/dL 12-15 L Hematocrit (test code = 4544-3) 32.0 % 36-45 L Lab Interpretation (test code = Abnormal 69614-5) [facility] [id number] 10:54:00 Test Item Value Reference Range Interpretation Comments Glucose (test code = 2345-7) 121 mg/dL 70-110 H Lab Interpretation (test code = Abnormal 15861-1) [facility]BLO[facility] GAS, [id number] 10:54:00 Test Item Value Reference Range Interpretation [...] (test code = 1819) 36.0 % GLUCOSE-STAT [id number] 10:54:00 Test Item Value Reference Range Interpretation Comments GLUCOSE RANDOM (BEAKER) (test code 121 mg/dL 70-110 H = 652) HGB/HCT (H&H) - STAT [id number] 10:54:00 Test Item Value Reference Range Interpretation Comments HEMOGLOBIN (BEAKER) (test code = 11.0 g/dL 12.0-15.0 L 410) HEMATOCRIT (BEAKER) (test code = 32.0 % 36.0-45.0 L 411) Calcium, [id number] 10:53:00 Test Item Value Reference Range Interpretation Comments Calcium, Ion (test code = 1994-3) 1.14 mmol/L 1.12-1.27 pH, Blood (test code = 31799-2) 7.41 [facility] [id number] 10:53:00 Test Item Value Reference Range Interpretation Comments Sodium (test code = 2951-2) 137 meq/L 135-148 Lab Interpretation (test code = Normal 45437-7) [facility]assium[facility] [id number] 10:53:00 Test Item Value Reference Range Interpretation Comments Potassium (test code = 2823-3) 3.7 meq/L 3.6-5.5 Lab Interpretation (test code = Normal 30968-5) [facility] [id number] 10:53:00 Test Item Value Reference Range Interpretation Comments SODIUM (BEAKER) (test code = 381) 137 meq/L 135-148 POTASSIUM-STAT [id number] 10:53:00 Test Item Value Reference Range Interpretation Comments POTASSIUM (BEAKER) (test code = 3.7 meq/L 3.6-5.5 379) CALCIUM, [id number] 10:53:00 Test Item Value Reference Range Interpretation Comments CALCIUM IONIZED (BEAKER) (test 1.14 mmol/L 1.12-1.27 code = 698) PH, BLOOD (BEAKER) (test code = 7.41 1810) [id number] 05:57:00 Test Item Value Reference Range Interpretation Comments PHOSPHORUS (BEAKER) (test code = 3.5 mg/dL 2.3-4.7 604) Chief Vendor Quality ID - VARSHA [id number] 05:57:00 Test Item Value Reference Range Interpretation Comments MAGNESIUM (BEAKER) (test code = 2.0 mg/dL 1.6-2.6 627) Chief Vendor Quality ID Sheridan MADDOX MBASIC METABOLIC [id number] 05:57:00 Test Item Value Reference Range Interpretation [...] S NOT APPLICABLE FOR DIALYSIS PATIEN TS. Chief Vendor Quality ID - VARSHA [id number] 05:45:00 Test Item Value Reference Range Interpretation Comments PARTIAL THROMBOPLASTIN TIME 30.2 seconds 22.5-36.0 (BEAKER) (test code = 760) PROTHROMBIN TIME/[id number] 05:44:00 Test Item Value Reference Range Interpretation [...] mechanical heart valves.CBC W/PLT COUNT & AUTO [id number] 05:40:00 Test Item Value Reference Range Interpretation [...] PERCENT (BEAKER) (test code = 2801) POCT-GLUCOSE [id number] 05:14:00 Test Item Value Reference Range Interpretation Comments POC-GLUCOSE METER 117 mg/dL 70-110 H : TESTED A T [facility] 6720 (BEAKER) (test code = [facility], 153) 64735: Chief Vendor Quality/Techni logan ID = [id number] for DA VIS, [place] POCT-GLUCOSE [id number] 21:22:00 Test Item Value Reference Range Interpretation Comments POC-GLUCOSE METER 144 mg/dL 70-110 H : TESTED A T [facility] 6720 (BEAKER) (test code = [facility], 153) 89045: Chief Vendor Quality/Techni logan ID = [id number] for DA VIS, [place] POCT-GLUCOSE [id number] 18:38:00 Test Item Value Reference Range Interpretation Comments POC-GLUCOSE METER 115 mg/dL 70-110 H : TESTED A T [facility] 6720 (BEAKER) (test code = [facility], 153) 01525: Chief Vendor Quality/Techni logan ID = [id number] for KELLY RUDOLPH Prepare [id number] 17:44:00 Test Item Value Reference Range Interpretation Comments CROSSMATCH (test code = 2264) COMPATIBLE Unit ABO (test code = O Pos 0228436) UNIT NUMBER (test code = [id number] 934-0) Status (test code = 4003423) READY Blood Bank Product (test code RED BLOOD CELLS = 2263) PRODUCT CODE (test code = A3696U61 933-2) [facility]PO[facility] [id number] 12:07:00 Test Item Value Reference Range Interpretation Comments POC-GLUCOSE METER 124 mg/dL 70-110 H : TESTED A T [facility] 6720 (BEAKER) (test code = [facility], 1538) 31909: Chief Vendor Quality/Techni logan ID = [id number] for KELLY RUDOLPH POCT-GLUCOSE [id number] 08:04:00 Test Item Value Reference Range Interpretation Comments POC-GLUCOSE METER 147 mg/dL 70-110 H : TESTED A T [facility] 6720 (BEAKER) (test code = [facility], 1538) 25552: Chief Vendor Quality/Techni logan ID = [id number] for KELLY RUDOLPH [id number] 05:49:00 Test Item Value Reference Range Interpretation Comments PHOSPHORUS (BEAKER) (test code = 3.7 mg/dL 2.3-4.7 604) Chief Vendor Quality ID - VARSHA [id number] 05:49:00 Test Item Value Reference Range Interpretation Comments MAGNESIUM (BEAKER) (test code = 2.0 mg/dL 1.6-2.6 627) Chief Vendor Quality ID - VARSHA MBASIC METABOLIC [id number] 05:49:00 Test Item Value Reference Range Interpretation [...] S NOT APPLICABLE FOR DIALYSIS PATIEN TS. Chief Vendor Quality ID - VARSHA MPOCT-GLUCOSE [id number] 21:18:00 Test Item Value Reference Range Interpretation Comments POC-GLUCOSE METER 133 mg/dL 70-110 H : TESTED A T [facility] 6720 (BEAKER) (test code = [facility], 1538) 67080: Chief Vendor Quality/Techni logan ID = [id number] for DANIELLE CARTER SE POCT-GLUCOSE [id number] 17:21:00 Test Item Value Reference Range Interpretation Comments POC-GLUCOSE METER 113 mg/dL 70-110 H : TESTED A T [facility] 6720 (BEAKER) (test code = [facility], 1538) 75545: Chief Vendor Quality/Techni logan ID = [id number] for KELLY RUDOLPH POCT-GLUCOSE [id number] 12:13:00 Test Item Value Reference Range Interpretation Comments POC-GLUCOSE METER 95 mg/dL 70-110 : TESTED A T [facility] 6720 (BEAKER) (test code = [facility], 1538) 27656: Chief Vendor Quality/Techni logan ID = [id number] for FAINA MORGAN POCT-GLUCOSE [id number] 08:03:00 Test Item Value Reference Range Interpretation Comments POC-GLUCOSE METER 140 mg/dL 70-110 H : TESTED A T [facility] 6720 (BEAKER) (test code = [facility], 1538) 45039: Chief Vendor Quality/Techni logan ID = [id number] for FAINA FOSTER [id number] 06:24:00 Test Item Value Reference Range Interpretation Comments PHOSPHORUS (BEAKER) (test code = 3.9 mg/dL 2.3-4.7 604) Chief Vendor Quality ID - KESHIA [id number] 06:24:00 Test Item Value Reference Range Interpretation Comments MAGNESIUM (BEAKER) (test code = 2.0 mg/dL 1.6-2.6 627) Chief Vendor Quality ID - KESHIA LBASIC METABOLIC [id number] 06:24:00 Test Item Value Reference Range Interpretation [...] S NOT APPLICABLE FOR DIALYSIS PATIEN TS. Chief Vendor Quality ID - PIAYA LPOCT-GLUCOSE [id number] 21:28:00 Test Item Value Reference Range Interpretation Comments POC-GLUCOSE METER 137 mg/dL 70-110 H : TESTED A T [facility] 6720 (BEAKER) (test code = [facility], 1538) 39797: Chief Vendor Quality/Techni logan ID = [id number] for DA VIS, [place] POCT-GLUCOSE [id number] 17:51:00 Test Item Value Reference Range Interpretation Comments POC-GLUCOSE METER 115 mg/dL 70-110 H : TESTED A T [facility] 6720 (BEAKER) (test code = [facility] [employer] [facility], 1538) 69482: Chief Vendor Quality/Techni logan ID = [id number] for ZA VALA, ERANDY POCT-GLUCOSE [id number] 12:30:00 Test Item Value Reference Range Interpretation Comments POC-GLUCOSE METER 98 mg/dL 70-110 : TESTED A T [facility] 6720 (BEAKER) (test code = [facility], 1538) 23088: Chief Vendor Quality/Techni logan ID = [id number] for ZAVA LA, ERANDY POCT-GLUCOSE [id number] 07:42:00 Test Item Value Reference Range Interpretation Comments POC-GLUCOSE METER 88 mg/dL 70-110 : TESTED A T [facility] 6720 (BEAKER) (test code = [facility], 1538) 41764: Chief Vendor Quality/Techni logan ID = [id number] for INDIRA MOODY [id number] 06:09:00 Test Item Value Reference Range Interpretation Comments PHOSPHORUS (BEAKER) (test code = 3.7 mg/dL 2.3-4.7 604) Chief Vendor Quality ID - KESHIA [id number] 06:09:00 Test Item Value Reference Range Interpretation Comments MAGNESIUM (BEAKER) (test code = 1.9 mg/dL 1.6-2.6 627) Chief Vendor Quality ID - KESHIA LBASIC METABOLIC [id number] 06:09:00 Test Item Value Reference Range Interpretation [...] S NOT APPLICABLE FOR DIALYSIS PATIEN TS. Chief Vendor Quality ID - KESHIA LPOCT-GLUCOSE [id number] 21:34:00 Test Item Value Reference Range Interpretation Comments POC-GLUCOSE METER 122 mg/dL 70-110 H : TESTED A T [facility] 6720 (BEAKER) (test code = [facility] [place], 1538) 11957: Chief Vendor Quality/Techni logan ID = [id number] for [place] POCT-GLUCOSE [id number] 17:18:00 Test Item Value Reference Range Interpretation Comments POC-GLUCOSE METER 139 mg/dL 70-110 H : TESTED A T [facility] 6720 (BEAKER) (test code = [facility], 1538) 46841: Chief Vendor Quality/Techni logan ID = [id number] for INDIRA SCHERER POCT-GLUCOSE [id number] 12:23:00 Test Item Value Reference Range Interpretation Comments POC-GLUCOSE METER 78 mg/dL 70-110 : TESTED A T [facility] 6720 (BEAKER) (test code = [facility], 1538) 97329: Chief Vendor Quality/Techni logan ID = [id number] for INDIRA MOODY POCT-GLUCOSE [id number] 07:53:00 Test Item Value Reference Range Interpretation Comments POC-GLUCOSE METER 120 mg/dL 70-110 H : TESTED A T [facility] 6720 (BEAKER) (test code = [facility], 1538) 15919: Chief Vendor Quality/Techni logan ID = [id number] for RYAN SCHERERNDKalyan [id number] 05:52:00 Test Item Value Reference Range Interpretation Comments PHOSPHORUS (BEAKER) (test code = 4.0 mg/dL 2.3-4.7 604) Chief Vendor Quality ID Sheridan MADDOX [id number] 05:52:00 Test Item Value Reference Range Interpretation Comments MAGNESIUM (BEAKER) (test code = 2.0 mg/dL 1.6-2.6 627) Chief Vendor Quality ID Sheridan MADDOX MBASIC METABOLIC [id number] 05:52:00 Test Item Value Reference Range Interpretation [...] S NOT APPLICABLE FOR DIALYSIS PATIEN TS. Chief Vendor Quality ID - VARSHA MPROTHROMBIN TIME/[id number] 05:51:00 Test Item Value Reference Range Interpretation [...] INR is2.5-3.5 for patients wiht mechanical heart valves.PT/[id number] 05:51:00 Test Item Value Reference Range Interpretation [...] 0-0 (BEAKER) (test code = 413) POCT-GLUCOSE [id number] 21:17:00 Test Item Value Reference Range Interpretation Comments POC-GLUCOSE METER 152 mg/dL 70-110 H : TESTED A T [facility] 6720 (BEAKER) (test code = [facility], 153) 42358: Chief Vendor Quality/Techni logan ID = [id number] for DA DAILY [place] POCT-GLUCOSE [id number] 11:38:00 Test Item Value Reference Range Interpretation Comments POC-GLUCOSE METER 111 mg/dL 70-110 H : TESTED A T [facility] 6720 (BEAKER) (test code = [facility], 153) 26905: Chief Vendor Quality/Techni logan ID = [id number] for JOELLE ELLIS YENNY B-type Natriuretic Factor (BNP)2019-11-16 11:10:00 Test Item Value Reference Range Interpretation Comments BNP (test code = 95567-6) 157 pg/mL 0-100 H JANETTE (test code = JANETTE) Chief Vendor Quality ID - AAHAMID Lab Interpretation (test Abnormal code = 01943-4) [facility] NATRIURETIC FACTOR (BNP)2019-11-16 11:10:00 Test Item Value Reference Range Interpretation Comments B-TYPE NATRIURETIC PEPTIDE (BEAKER) 157 pg/mL 0-100 H (test code = 700) Chief Vendor Quality ID - AAHAMIDComprehensive metabolic [id number] 11:05:00 Test Item Value Reference Range Interpretation Comments Protein, Total (test 6.5 6.0- 8.3 gm/dL code = 2885-2) Albumin (test code = 3.7 g/dL 3.5-5 07906-8) Alkaline Phosphatase 113 U/L 40-150 (test code = 6768-6) Total Bilirubin (test 0.4 mg/dL 0.2-1.2 code = 1975-2) Sodium (test code = 137 meq/L 753-724 9109-2) Potassium (test code = 4.0 meq/L 3.5-5.1 2823-3) Chloride (test code = 103 meq/L 98-107 2075-0) CO2 (test code = 27 meq/L 22-29 2028-9) BUN (test code = 7 mg/dL 7-21 3094-0) Creatinine (test code 0.66 mg/dL 0.57-1.25 = 2160-0) Glucose (test code = 118 mg/dL 70-105 H 2345-7) Calcium (test code = 8.7 mg/dL 8.4-10.2 78781-5) AST (test code = 28 U/L 5-34 1920-8) ALT (test code = 26 U/L 6-55 1742-6) EGFR (test code = 91 mL/min/1.73 [place] [address]-8) NOT ACCURATE CREATININE CLEARANCE IN PREDICTING GLOMERULAR FILTRATION RATE . ESTIMATED GFR I S NOT APPLICABLE FOR DIALYSIS PATIENTS. JANETTE (test code = JANETTE) Chief Vendor Quality ID - AAHAMID Lab Interpretation Abnormal (test code = 92548-0) [facility] HospitalCOMPREHENSIVE METABOLIC [id number] 11:05:00 Test Item Value Reference Range Interpretation [...] S NOT APPLICABLE FOR DIALYSIS PATIEN TS. Chief Vendor Quality ID - AAHAMIDPROTHROMBIN TIME/[id number] 10:50:00 Test Item Value Reference Range Interpretation [...] mechanical heart valves.CBC W/PLT COUNT & AUTO [id number] 10:44:00 Test Item Value Reference Range Interpretation [...] PERCENT (BEAKER) (test code = 2801) POCT-GLUCOSE [id number] 08:18:00 Test Item Value Reference Range Interpretation Comments POC-GLUCOSE METER 141 mg/dL 70-110 H : TESTED A T [facility] 6720 (BEAKER) (test code = LORELEI Jordan [facility], 1538) 33689: Chief Vendor Quality/Techni logan ID = [id number] for MATHUR MURTAZA WEINER POCT-GLUCOSE [id number] 22:29:00 Test Item Value Reference Range Interpretation Comments POC-GLUCOSE METER 172 mg/dL 70-110 H : TESTED A T [facility] 6720 (BEAKER) (test code = [facility], 1538) 44585: Chief Vendor Quality/Techni logan ID = [id number] for PH CHEPE LUBIN POCT-GLUCOSE [id number] 18:30:00 Test Item Value Reference Range Interpretation Comments POC-GLUCOSE METER 176 mg/dL 70-110 H : TESTED A T [facility] 6720 (BEAKER) (test code = [facility], 1538) 91904: Chief Vendor Quality/Techni logan ID = [id number] for MATHUR MURTAZA WEINER BONE AND/OR JOINT IMAGING, WHOLE [id number] 16:33:00FINAL REPORT PROCEDURE: BONE SCAN, WHOLE BODY CPT CODE: 53185 PAT CATION: Lung cancer PROTOCOL: 21.5 mCi [...] MDReport Verified Date/Time: 11/03/2019 16:33:30 Reading Location: [address] [address] Nuc Med Reading Room NM bone scan whole [id number] 16:33:00Interface, External Ris In - 11/03/2019 4:35 PM CSTFINAL REPORT PROCEDURE: BONE SCAN, WHOLE BODY CPT CODE: 96513 INDICATION: Lung cancer PROTOCOL: 21.5 mCi of [...] MDReport Verified Date/Time: 11/03/2019 16:33:30 Reading Location: [address] [address]B [facility] [id number] 16:18:00Addendum BeginsREPORT STATUS:A I have reviewed the [...] hysterectomy and bilateral salpingo- oophorectomy. Signed: David Mirandaeport Verified Date/Time: 11/03/2019 16:18:17 Reading Location: [place] [address] Angio Body Reading RoomAddendum EndsFINAL REPORT CT [...] performed a few days ago by the Truss Assembler Radiologist. Refer to formal dictation for details, [...] ago. Refer to formal CT report by Truss Assembler Radiologist for details. Pertinentfindings include emphysematous changes [...] dictated regarding the non-vascular findings by the Truss Assembler Radiologist. Signed: Ricardo Broussard MDReport Verified Date/Time: 11/03/2019 07:39:57 CT, CTA, [id number] 16:18:00Addendum BeginsREPORT STATUS:A I have reviewed the [...] hysterectomy and bilateral salpingo-oophorectomy. Signed: David Miranda Verified Date/Time: 11/03/2019 16:18:17 Reading Location: [place] [address] Angio Body Reading RoomAddendum EndsFINAL REPORT CT [...] valve). For reference purpose, per Anali cohen, recommendation are as follows: 23mm valve [...] performed a few days ago by the Truss Assembler Radiologist. Refer to formal dictation for details, [...] ago. Refer to formal CT report by Truss Assembler Radiologist for details. Pertinentfindings include emphysematous changes [...] dictated regarding the non-vascular findings by the Truss Assembler Radiologist. Signed: Ricardo Broussard MDReport Verified Date/Time: 11/03/2019 07:39:57 POCT-GLUCOSE [id number] 11:34:00 Test Item Value Reference Range Interpretation Comments POC-GLUCOSE METER 109 mg/dL 70-110 : TESTED A T [facility]20 ([employer]) (test code = [employer] [facility], 1538) 17555: Chief Vendor Quality/Techni logan ID = [id number] for MURTAZA MEDINA POCT-GLUCOSE [id number] 08:10:00 Test Item Value Reference Range Interpretation Comments POC-GLUCOSE METER 115 mg/dL 70-110 H : TESTED A T [facility] 6720 ([employer]) (test code = [place], 1538) 0[address]: Chief Vendor Quality/Techni logan ID = [id number] for MURTAZA MEDINA CTA abdomen & [id number] 07:39:00Interface, External Ris In - 11/03/2019 4:20 [...] MDReport Verified Date/Time: 11/03/2019 16:18:17 Reading Location: [place] [address] Angio Body Reading RoomAddendum EndsFINAL REPORT CT [...] valve). For reference purpose, per Anali Edge brochsamreen, recommendation are as follows: 23mm valve is [...] ago. Refer to formal CT report by Truss Assembler Radiologist for details. Pertinent findings include emphysematous [...] dictated regarding the non-vascular findings by the Truss Assembler Radiologist. Signed: Ricardo Broussard [facility] ed Date/Time: 11/03/2019 07:39:57 [facility] chest 2019-11-03 07:39:00Interface, External Ris In - [...] hysterectomy and bilateral salpingo- oophorectomy. Signed: David Mirandaort Verified Date/Time: 11/03/2019 16:18:17 Reading Location: [place] [address] Angio Body Reading RoomAddendum EndsFINAL REPORT CT [...] For reference purpose, per [employer] neol, recommendation are as follows: CT perimeter between 56.5-62.8 mm (23 mm valve); 62.8-72.3 mm (26 mm valve); 72.3-81.7 mm (29 mm valve); and 81.7- 94.2. mm (34 mm valve). For reference purpose, per Anali Edge noel, recomm endation are as follows: 23mm valve [...] performed a few days ago by the Truss Assembler Radiologist. Refer to formal dictation for details, [...] ago. Refer to formal CT report by Truss Assembler Radiologist for details. Pertinent findings include emphysematous [...] dictated regarding the non-vascular findings by the Truss Assembler Radiologist. Signed: Ricardo Broussardeport Verified Date/Time: 11/03/2019 07:39:57 [facility] W/PLT COUNT & AUTO DIFFERENTIAL 2019-11-03 [...] 0-1 PERCENT (BEAKER) (test code = 2801) [id number] 05:13:00 Test Item Value Reference Range Interpretation Comments PHOSPHORUS (BEAKER) (test code = 3.4 mg/dL 2.3-4.7 604) Chief Vendor Quality ID - PIAYA [id number] 05:13:00 Test Item Value Reference Range Interpretation Comments MAGNESIUM (BEAKER) (test code = 2.0 mg/dL 1.6-2.6 627) Chief Vendor Quality ID - PIAYA LCOMPREHENSIVE METABOLIC [id number] 05:13:00 Test Item Value Reference Range Interpretation [...] S NOT APPLICABLE FOR DIALYSIS PATIEN TS. Chief Vendor Quality ID - PIAYA LPOCT-GLUCOSE [id number] 22:07:00 Test Item Value Reference Range Interpretation Comments POC-GLUCOSE METER 157 mg/dL 70-110 H : Notified RN/: (MIKE) (test code = TESTED AT [facility] 8800 4974) [facility], [address]: Chief Vendor Quality/Techni logan ID = [id number] for SA CHEN WETZEL Carotid doppler [id number] 18:11:58Ejection FractionSLEH ECHO HEARTLAB MKCKESSON CPACSRight Impression1. [...] of Study 11/02/2019 Age 64 Visit Number [id number] Gender Female Accession Number [id number] Date of 1955 Referring Minna Cadet Room Number C634 Physician [employer] Ad[employer] Manager Amy De La Paz Interpreting Christa Carter RN, RVT Physician ProcedureType of Study: Cerebral: Carotid, CAROTID [...] the left side. - Additional Measurements:ICAPSV/CCAPSV 0.79.ICAEDV/CCAEDV 0.95.[facility] POCT-GLUCOSE [id number] 17:42:00 Test Item Value Reference Range Interpretation Comments POC-GLUCOSE METER 111 mg/dL 70-110 H : TESTED A T [facility] 6720 ([facility]) (test code = [facility], 153) 16548: Chief Vendor Quality/Techni logan ID = [id number] for TAWNYA FARAH, YULIA POCT-GLUCOSE [id number] 13:32:00 Test Item Value Reference Range Interpretation Comments POC-GLUCOSE METER 125 mg/dL 70-110 H : [facility] (test code = [facility], 1538) 91165: Chief Vendor Quality/Techni logan ID = [id number] for TAWNYA FARAH, YULIA POCT-GLUCOSE [id number] 13:17:00 Test Item Value Reference Range Interpretation Comments POC-GLUCOSE METER 123 mg/dL 70-110 H : Notified RN/MD: ([facility]) (test code = TESTED AT [place] [address]38) [facility], [address]: Chief Vendor Quality/Techni logan ID = [id number] for NADIA LANTIGUA, COSHA POCT-GLUCOSE [id number] 10:19:00 Test Item Value Reference Range Interpretation Comments POC-GLUCOSE METER 116 mg/dL 70-110 H : TESTED A [facility] 6720 ([facility]) (test code = [facility], 153) [address]: Chief Vendor Quality/Techni logan ID = [id number] for TH OMAS, COSHA [id number] 05:40:00 Test Item Value Reference Range Interpretation Comments PHOSPHORUS (BEAKER) (test code = 3.0 mg/dL 2.3-4.7 604) Chief Vendor Quality ID - RAMIRO [id number] 05:40:00 Test Item Value Reference Range Interpretation Comments MAGNESIUM (BEAKER) (test code = 2.1 mg/dL 1.6-2.6 627) Chief Vendor Quality ID - RAMIRO WCOMPREHENSIVE METABOLIC [id number] 05:40:00 Test Item Value Reference Range Interpretation [...] S NOT APPLICABLE FOR DIALYSIS PATIEN TS. Chief Vendor Quality ID - RAMIRO WCBC W/PLT COUNT & AUTO [id number] 05:22:00 Test Item Value Reference Range Interpretation [...] PERCENT (BEAKER) (test code = 2801) POCT-GLUCOSE [id number] 22:30:00 Test Item Value Reference Range Interpretation Comments POC-GLUCOSE METER 173 mg/dL 70-110 H : TESTED A T [facility] 6720 (BEAKER) (test code = [place], 1538) [address]: Chief Vendor Quality/Techni logan ID = [id number] for BIBIANA ACOSTA [facility] [id number] 17:02:00Leny Almonte, THERON, EXIT BOOTH AGENT 11/01/2019 5:45 [facility] PFT CHARTING REPORT Infection Control/Hand Hygiene procedures followed throughout the encounter with patient: YesPatient Identification Method: Patient name verified on armband, and Medical record on armband, Is the order complete?: Yes Account ID#: [id number] Name: Quiana Valladares Birthdate: 1955 Age: 64 [...] patient released from the lab without adverse outcome.[facility] W/Doppler(CW/PW/Color)2019-11-01 16:21:59Ejection FractionSLEH ECHO HEARTLAB MKCKESSON CPACSInterface, External Ris In - 11/01/2019 4:22 PM CSTTransthoracic Echocardiography Report (TTE) Demographics Patient Name QUIANA VALLADARES Date of Study 11/01/2019 KARINA Gender Female Visit Number [id number] Race Room Number C634-2 Number Date of 1955 Referring Physician Helio Buitrago MD Age 64 year(s) Online Advertising Manager Larsbeba Gotti [facility] Air Shovel Operator Asaf Rankin Interpreting Physician JONO Deluca Procedure [...] TR Velocity: 2.39 m/s TRGradient: 22.84 mmHgCHI [facility] NuysCT-GLUCOSE [id number] 13:31:00 Test Item Value Reference Range Interpretation Comments POC-GLUCOSE METER 187 mg/dL 70-110 H : Notified RN/MD: (MIKE) (test code = TESTED AT [facility] 67[address] 1538) [facility], [address]: Chief Vendor Quality/Techni logan ID = [id number] for MARCO RIVERA, [id number] 06:53:00 Test Item Value Reference Range Interpretation Comments ABO Grouping (test code = 2588) O Rh Factor (test code = 2589) POS [facility]ys[facility]SE [id number] 06:37:00 Test Item Value Reference Range Interpretation Comments POC-GLUCOSE METER 130 mg/dL 70-110 H : TESTED A T [facility] (test code = [facility], 1538) [address]: Chief Vendor Quality/Techni logan ID = [id number] for ISHAN JENSEN [id number] 06:06:00 Test Item Value Reference Range Interpretation Comments PHOSPHORUS (SOFIEAKER) (test code = 3.8 mg/dL 2.3-4.7 604) Chief Vendor Quality ID - RAMIRO [id number] 06:06:00 Test Item Value Reference Range Interpretation Comments MAGNESIUM (BEAKER) (test code = 2.1 mg/dL 1.6-2.6 627) Chief Vendor Quality ID - RAMIRO WCOMPREHENSIVE METABOLIC [id number] 06:06:00 Test Item Value Reference Range Interpretation [...] S NOT APPLICABLE FOR DIALYSIS PATIEN TS. Chief Vendor Quality ID Sheridan RUBIO WPROTHROMBIN TIME/[id number] 06:00:00 Test Item Value Reference Range Interpretation [...] mechanical heart valves.CBC W/PLT COUNT & AUTO [id number] 05:30:00 Test Item Value Reference Range Interpretation [...] PERCENT (BEAKER) (test code = 2801) POCT-GLUCOSE [id number] 00:13:00 Test Item Value Reference Range Interpretation Comments POC-GLUCOSE METER 148 mg/dL 70-110 H : TESTED A T [facility] 6720 (BEAKER) (test code = [facility], [facility]8) [address]: Chief Vendor Quality/Techni logan ID = [id number] for PE ISIAH, IHSAN POCT-GLUCOSE [id number] 22:12:00 Test Item Value Reference Range Interpretation Comments POC-GLUCOSE METER 140 mg/dL 70-110 H : TESTED A T [facility] 6720 (BEAKER) (test code = [facility], [facility]) [address]: Chief Vendor Quality/Techni logan ID = [id number] for PE ISIAH, ISHAN POCT-GLUCOSE [id number] 17:48:00 Test Item Value Reference Range Interpretation Comments POC-GLUCOSE METER 136 mg/dL 70-110 H : TESTED A T [facility] 6720 (BEAKER) (test code = [facility], 1538) [address]: Chief Vendor Quality/Techni logan ID = [id number] for DA VIS, KEYAIRA POCT-GLUCOSE [id number] 08:06:00 Test Item Value Reference Range Interpretation Comments POC-GLUCOSE METER 186 mg/dL 70-110 H : TESTED A T [facility] 6720 (BEAKER) (test code = [facility], 1538) [address]: Chief Vendor Quality/Techni logan ID = [id number] for DA VIS, KEYAIRA POCT-GLUCOSE [id number] 06:43:00 Test Item Value Reference Range Interpretation Comments POC-GLUCOSE METER 118 mg/dL 70-110 H : TESTED A T [facility] 6720 (MIKE) (test code = [place], 1538) [address]: Chief Vendor Quality/Techni logan ID = [id number] for MESERET IVORY CT, CHEST WITH IV CONTRAST- PE TEST [id number] 18:23:00Reason for exam:- >chest painWhat is the [...] Cox MDReport Verified Date/Time:10/30/2019 18:23:35 Reading Location: [place] [address]Y CT Body Reading Room CT chest for [...] MDReport Verified Date/Time: 10/30/2019 18:23:35 Reading Location: [facility] B1 C013Y CT Body Reading [facility] NATRI[facility] FA[facility] (BNP)2019-10-30 16:35:00 Test Item Value Reference Range Interpretation Comments B-TYPE NATRIURETIC PEPTIDE (BEAKER) 360 pg/mL 0-100 H (test code = 700) Chief Vendor Quality ID - BSTroponin [id number] 16:34:00 Test Item Value Reference Range Interpretation Comments Troponin I (test code = <0.01 0-0.03 68613-9) JANETTE (test code = JANETTE) Troponin I [...] BS Lab Interpretation (test Normal code = 23857-5) [facility] [id number] 16:34:00 Test Item Value Reference Range Interpretation [...] failure, acidosis, acute neurological disease, and persistent tachyarrhythmia.Chief Vendor Quality ID - [id number] 16:28:00 Test Item Value Reference Range Interpretation Comments MAGNESIUM (BEAKER) (test code = 1.9 mg/dL 1.6-2.6 627) Chief Vendor Quality ID - BSBASIC METABOLIC [id number] 16:28:00 Test Item Value Reference Range Interpretation [...] S NOT APPLICABLE FOR DIALYSIS PATIEN TS. Chief Vendor Quality ID - [id number] 16:26:00 Test Item Value Reference Range Interpretation [...] mechanical heart valves.CBC W/PLT COUNT & AUTO [id number] 16:21:00 Test Item Value Reference Range Interpretation [...] = 2801) RAD, CHEST, 1 VIEW, NON [id number] 15:21:00Reason for exam:->chest pain FINAL REPORT INDICATION: chest pain COMPARISON: None TECHNIQUE: AP and lateral view of the chest. FINDINGS: Lungs and pleura: Clear lungs. No effusion.Heart and mediastinum: Normal heart size. Unremarkable mediastinal contours.Osseous structures: No acute abnormality.Other: Tip overlies the SVC. IMPRESSION: No acute intrathoracic abnormality. Signed: Arlyn Persaud Verified Date/Time: 10/30/2019 15:21:39 Reading Location: [facility] Radiology Reading Room
[2020-04-23] MEDS ORDERED: NA CHLORIDE 0.9% 1,000 ML ONE (17:03)
[2020-04-23 17:21] LABS: Absolute Lymphocytes (CBC) 0.9 K/uL (0.7-4.9); Basophils % 0.2 % (0-1.3); Hematocrit 24.7 % (36.0-45.0); Lymphocytes % 6.8 % (15.3-44.8); MPV 7.4 fL (7.6-11.3); RBC Red Blood Cell Count 2.93 M/uL (3.86-4.86)
[2020-04-23 17:34] LABS: Protime INR 1.23
--- NOTE | 2020-04-23 17:50 | RAD REPORT ---
EXAM DESCRIPTION: RAD - Chest Single View - 04/23/2020 5:04 pm CLINICAL HISTORY: feet swelling COMPARISON: Portable chest April 11 TECHNIQUE: AP portable chest image was obtained 04/23/2020 5:04 pm . FINDINGS: Large right upper lung field mass is again noted not substantially different over the shor t interval. Right pleural effusion has developed. Left pleural effusion and left lung base parenchyma l opacification not clearly different from comparison. Cardiac silhouette is enlarged from either charito mber enlargement or pericardial effusion. No acute vascular engorgement. Right-sided Port-A-Cath is i n place. No pneumothorax. No acute bony abnormality seen. No acute aortic findings suspected. IMPRESSION: Small right pleural effusion new from prior imaging. Large right upper lobe mass not clearly different from short interval April 11 imaging. Left pleural and parenchymal opacification also without clear change.
[2020-04-23 17:52] LABS: ALT/SGPT 26 U/L (12-78); AST/SGOT 40 U/L (15-37); Alkaline Phosphatase 147 U/L (45-117); BUN Blood Urea Nitrogen 7 mg/dL (7-18); Bicarbonate 26 mmol/L (21-32); Bilirubin Direct 0.1 mg/dL (0-0.2); Bilirubin Total 0.3 mg/dL (0.2-1.0); Glucose Level 155 mg/dL (74-106); Magnesium 1.7 mg/dL (1.8-2.4); NT PRO-BNP 1805 pg/mL (<125); Potassium 2.9 mmol/L (3.5-5.1); Protein, Total 7.2 g/dL (6.4-8.2); Sodium Level 140 mmol/L (136-145); Troponin (Emerg Dept Use Only) < 0.02 ng/mL (0.0-0.045)
--- NOTE | 2020-04-23 17:58 | RAD REPORT ---
EXAM DESCRIPTION: CT - Chest For Pe Angio - 04/23/2020 5:31 pm CLINICAL HISTORY: DYSPNEA COMPARISON: CT chest October 11, 2019, portable chest April 23, portable chest April 11 TECHNIQUE: Dynamically enhanced 3 mm thick images of the chest were obtained during administration o f approximately 150mL Isovue 370 IV contrast. Coronal and oblique MIP reconstruction images were gene rated and reviewed. Exam utilizes a protocol to evaluate the pulmonary arterial tree. All CT scans are performed using dose optimization technique as appropriate and may include automated exposure control or mA/KV adjustment according to patient size. FINDINGS: No pulmonary emboli are identified. No acute aortic finding. Since the September CT study the patient has undergone aortic stenting across the aortic valve and into the proximal portion of the ascending aorta. Pericardial effusion 15 mm in thickness is present. Large right upper lobe mass is again noted. Mass measures 5.9 cm AP x 6.2 cm TR on the current examin ation. This is substantial growth from September. The mass does not appear significantly different fro m the 2 most recent portable chest films. There is further extension into the anterolateral pleura an d chest wall along the superior extent of the mass. Large left pleural effusion has developed. Minima l right pleural effusion is present. Partial atelectasis seen in the left lower lobe. A 14 millimeter left lower lobe nodule (image 60/132) has developed since September CT study. In the inferior aspect of the right upper lobe (image 56/132) there is a new 9 mm subpleural pulmonary nodule. No pneumothor ax. No new or progressive mediastinal or hilar process. No chest wall masses or abnormal axillary lymphad enopathy. Bony degenerative change present. No clearly pathologic bone process. Limited liver imaging shows several hypodense lesions up to 3.8 cm in size. Only 50% of the liver is imaged. IMPRESSION: No pulmonary emboli identified. Known right upper lobe mass is substantially larger than February CT study. The mass is not substanti ally different from the 2 most recent portable chest films. A large left pleural effusion is present with partial left lower lobe atelectasis. Minimal right pleu ral effusion present. Significant pericardial effusion up to 15 mm in thickness.
[2020-04-23] MEDS ORDERED: POTASSIUM 25 MEQ EFFERV TAB ONE (18:31)
--- NOTE | 2020-04-23 18:35 | RAD REPORT ---
EXAM DESCRIPTION: US - Extremity Venous Uni Ltd - 04/23/2020 6:10 pm CLINICAL HISTORY: SWELLING COMPARISON: None. TECHNIQUE: Real-time sonographic evaluation of the right lower extremity deep venous systems was per formed. FINDINGS: Normal compressibility, flow augmentation, phasic flow and spontaneous flow are identified in the right lower extremity common femoral, superficial femoral, popliteal and posterior tibial vei ns. No intraluminal filling defects seen. IMPRESSION: No DVT in the right lower extremity.
--- NOTE | 2020-04-23 18:42 | RAD REPORT ---
EXAM DESCRIPTION: US - Lower Extremity Artery Uni Ltd - 04/23/2020 6:10 pm CLINICAL HISTORY: discoloration COMPARISON: Lower Extremity Arterial Bilat dated 04/12/2020 TECHNIQUE: Doppler evaluation of the left lower extremity arterial tree performed. Waveforms and fermín ocity values were obtained along with visual inspection. FINDINGS: Monophasic waveform pattern was seen along the entire length of the left lower extremity. Waveforms are dampened. Left dorsalis pedis artery was patent. No waveform could be confirmed in the posterior tibial artery. No focal occlusion site identified. No flow restricting lesions seen. Athero sclerotic changes are present. IMPRESSION: Monophasic waveform along the entire length of the left lower extremity. This pattern is frequently seen with significant flow restricting disease of the aorta or left iliac vasculature. Blood flow could not be confirmed in the left posterior tibial artery at the ankle.
[2020-04-23] MEDS ORDERED: HEPARIN/D5W 25,000 UNIT/500 ML BAG IV ONE (19:06)
--- NOTE | 2020-04-23 19:14 | EDPHYS ---
Physician Documentation [facility] Name: Lisa Acosta Age: 64 yrs Sex: Female : 1955 Arrival Date: 04/23/2020 Time: 16:24 Bed 13 Private MD: FADI Physician Jeb Dietrich HPI: 04/23 17:31 This 64 yrs old Female presents to ER via Ambulatory with complaints of Feet kb Swelling. 17:31 The patient has shortness of breath at rest. Onset: The symptoms/episode began/occurred kb today. Duration: The symptoms are continuous. The patient's shortness of breath has no apparent modifying factors. Associated signs and symptoms: Pertinent positives: swelling to legs, Pertinent negatives: chest pain, dizziness, fever, numbness in extremities. Severity of symptoms: At their worst the symptoms were moderate in the emergency department the symptoms are unchanged. The patient has not experienced similar symptoms in the past. The patient has not recently seen a physician. Pt reports swelling to her feet that started 3 days ago, shortness of breath started today. Historical: - Allergies: 16:39 Bactrim DS; ll1 16:39 Sulfa (Sulfonamide Antibiotics); ll1 - PMHx: 16:39 Diabetes - NIDDM; colon cancer (February 10, 2016); 36 radiations and 15 months of chemo ll1 after colon cancer.; Hypertension; - PSHx: 16:39 Hysterectomy; Hernia repair; Heart Valve replacement; ll1 - Immunization history:: Flu vaccine is up to date. - Social history:: Smoking status: Patient reports the use of cigarette tobacco products, smokes one-half pack cigarettes per day, Patient uses alcohol, only on a social basis. "two drinks today". Patient/guardian denies using street drugs. ROS: 17:29 Constitutional: Negative for fever, chills, and weight loss, Abdomen/GI: Negative for kb abdominal pain, nausea, vomiting, diarrhea, and constipation, Back: Negative for injury and pain, Skin: Negative for injury, rash, and discoloration, Neuro: Negative for headache, weakness, numbness, tingling, and seizure. 17:29 Cardiovascular: Positive for edema, Negative for chest pain, orthopnea, palpitations, paroxysmal nocturnal dyspnea. 17:29 Respiratory: Positive for shortness of breath, Negative for cough, dyspnea on exertion, hemoptysis, orthopnea, pleurisy, sputum production, wheezing. 17:29 MS/extremity: Positive for swelling. Exam: 17:29 Constitutional: This is a well developed, well nourished patient who is awake, alert, kb and in no acute distress. Head/Face: Normocephalic, atraumatic. Chest/axilla: Normal chest wall appearance and motion. Nontender with no deformity. No lesions are appreciated. Cardiovascular: Regular rate and rhythm with a normal S1 and S2. No gallops, murmurs, or rubs. Normal PMI, no JVD. No pulse deficits. Respiratory: Lungs have equal breath sounds bilaterally, clear to auscultation and percussion. No rales, rhonchi or wheezes noted. No increased work of breathing, no retractions or nasal flaring. Abdomen/GI: Soft, non-tender, with normal bowel sounds. No distension or tympany. No guarding or rebound. No evidence of tenderness throughout. Skin: Warm, dry with normal turgor. Normal color with no rashes, no lesions, and no evidence of cellulitis. Neuro: Awake and alert, GCS 15, oriented to person, place, time, and situation. Cranial nerves II-XII grossly intact. Motor strength 5/5 in all extremities. Sensory grossly intact. Cerebellar exam normal. Normal gait. 17:29 Cardiovascular: Edema: 2+ edema to level of right foot and right toes. 17:29 Musculoskeletal/extremity: Perfusion: the extremity is cool, pale, noted to have sluggish capillary refill. Vital Signs: 16:36 BP 87 / 36; Pulse 103; Resp 20; Temp 98.6; Pulse Ox 98% ; Pain 8/10; ll1 18:14 BP 111 / 69; Pulse 100; Resp 20; Pulse Ox 100% on R/A; jr10 18:22 Weight 53.5 kg; jr10 19:00 BP 125 / 70; Pulse 97; Resp 21; Pulse Ox 100% on R/A; vc 20:00 BP 141 / 51; Pulse 97; Resp 24; Pulse Ox 100% on R/A; vc 20:58 BP 158 / 78; Pulse 89; Resp 18; Temp 97.8(O); Pulse Ox 100% on R/A; vc MDM: 16:35 Patient medically screened. kb 17:29 Data reviewed: vital signs, nurses notes. Data interpreted: Pulse oximetry: on room air kb is 98 %. Interpretation: normal. 18:31 ED course: Transfer initiated to [facility] for acute arterial ischemia of left leg kb and pericardial effusion. . 18:49 ED course: Pt accepted for consult by vascular surgeon at [facility]. Requests kb heparin drip be started at this time. 20:35 Counseling: I had a detailed discussion with the patient and/or guardian regarding: the kb historical points, exam findings, and any diagnostic results supporting the discharge/admit diagnosis, lab results, radiology results, the need to transfer to another facility. ED course: Pt accepted to CCU by Dr Buitrago at [facility]. 04/23 16:46 Order name: Basic Metabolic Panel; Complete Time: 17:54 kb 04/23 16:46 Order name: CBC with Diff; Complete Time: 17:26 kb 04/23 16:46 Order name: LFT's; Complete Time: 17:54 kb 04/23 16:46 Order name: Magnesium; Complete Time: 17:54 kb 04/23 16:46 Order name: NT PRO-BNP; Complete Time: 17:54 kb 04/23 16:46 Order name: PT-INR; Complete Time: 17:47 kb 04/23 16:27 Order name: Chest Single View XRAY; Complete Time: 17:54 snw 04/23 16:46 Order name: Troponin (emerg Dept Use Only); Complete Time: 17:54 kb 04/23 16:50 Order name: CT Chest For PE Angio; Complete Time: 18:01 kb 04/23 16:50 Order name: US Extremity Venous Unilateral Ltd; Complete Time: 18:36 kb 04/23 16:58 Order name: TS; Complete Time: 20:23 snw 04/23 16:58 Order name: TSH; Complete Time: 18:17 snw 04/23 20:23 Order name: Ptt, Activated; Complete Time: 21:31 vc 04/23 21:28 Order name: CREATININE WHOLE BLOOD; Complete Time: 21:31 EDMS 04/23 16:46 Order name: EKG; Complete Time: 16:47 kb 04/23 16:46 Order name: Cardiac monitoring; Complete Time: 17:16 kb 04/23 16:46 Order name: EKG - Nurse/Tech; Complete Time: 17:16 kb 04/23 16:46 Order name: IV Saline Lock; Complete Time: 17:16 kb 04/23 16:46 Order name: Labs collected and sent; Complete Time: 17:16 kb 04/23 16:46 Order name: O2 Per Protocol; Complete Time: 16:51 kb 04/23 16:46 Order name: O2 Sat Monitoring; Complete Time: 16:50 kb 04/23 17:23 Order name: Lower Extremity Artery Uni Ltd; Complete Time: 18:43 kb Administered Medications: 17:15 Drug: NS 0.9% 1000 ml Route: IV; Rate: 1000 ml; Site: right forearm; jr10 19:00 Follow up: IV Status: Completed infusion; IV Intake: 1000ml vc 18:24 Drug: Potassium Effervescent Tablet 50 mEq Route: PO; jr10 18:53 Follow up: Response: No adverse reaction jr10 19:14 Drug: Heparin (WI-Bolus No thrombolytic) - HEParin 60 units/kg {Co-Signature: vc jr10 (Magda Dunham RN).} Route: IVP; Site: right forearm; 21:07 Follow up: Response: No adverse reaction vc 19:16 Drug: Heparin (WI Drip) 12 units/kg/hr - (HEParin 37585 units, D5W 500 ml) jr10 {Co-Signature: vc (Magda Dunham RN).} Route: IV; Rate: calculated rate; Site: right forearm; Disposition: 04/24 09:18 Co-signature as Attending Physician, Jeb Dietrich MD I agree with the assessment and charito plan of care. Disposition: 04/23/20 19:14 Transfer ordered to [facility]. Diagnosis are acute arterial ischemia - left leg, Pericardial effusion (noninflammatory), Hypokalemia. - Reason for transfer: Higher level of care. - Accepting physician is Dr Buitrago. - Condition is Stable. - Problem is new. - Symptoms are unchanged. Signatures: Dispatcher [employer] Angela Nagel, SOLO-Yaw BANDA-Jeb Yeboah MD MD cha Calcote, Vanessa, RN RN vc Lewis, Lynsay, RN RN ll1 Mely Lin RN RN jr10 Magda Calcote RN vc Corrections: (The following items were deleted from the chart) 04/23 18:23 17:29 Musculoskeletal/extremity: Perfusion: the extremity is pale, kb kb 18:52 18:49 ED course: Pt accepted for consult by vascular surgeon at [facility]. kb kb 20:35 19:14 04/23/2020 19:14 Transfer ordered to [facility]. kb Diagnosis is acute arterial ischemia - left leg; Pericardial effusion (noninflammatory); Hypokalemia. Reason for transfer: Higher level of care. Accepting physician is ST Perez. Condition is Stable. Problem is new. Symptoms are unchanged. kb 22:10 20:35 04/23/2020 19:14 Transfer ordered to [facility]. vc Diagnosis is acute arterial ischemia - left leg; Pericardial effusion (noninflammatory); Hypokalemia. Reason for transfer: Higher level of care. Accepting physician is Dr Buitrago. Condition is Stable. Problem is new. Symptoms are unchanged. kb
--- NOTE | 2020-04-23 19:14 | ER ---
Nurse's Notes [facility] Name: Lisa Acosta Age: 64 yrs Sex: Female : 1955 Arrival Date: 04/23/2020 Time: 16:24 Bed 13 Private MD: Diagnosis: acute arterial ischemia - left leg;Pericardial effusion (noninflammatory);Hypokalemia Presentation: 04/23 16:36 Chief complaint: Patient states: Bilateral feet swelling for 3 days. + fatigue, ll1 weakness, and slight SOB. No fever or cough. Coronavirus screen: Client denies travel out of the [place] in the last 14 days. shortness of breath, At this time, the client does not indicate any symptoms associated with coronavirus-19. The client reports previous COVID testing was negative. Ebola Screen: Patient denies travel to an Ebola-affected area in the 21 days before illness onset. Initial Sepsis Screen: Does the patient meet any 2 criteria? HR > 90 bpm. Risk Assessment: Do you want to hurt yourself or someone else? Patient reports no desire to harm self or others. Onset of symptoms was April 20, 2020. 16:36 Method Of Arrival: Ambulatory ll1 16:36 Acuity: KIRAN 2 ll1 Historical: - Allergies: 16:39 Bactrim DS; ll1 16:39 Sulfa (Sulfonamide Antibiotics); ll1 - PMHx: 16:39 Diabetes - NIDDM; colon cancer (February 10, 2016); 36 radiations and 15 months of chemo ll1 after colon cancer.; Hypertension; - PSHx: 16:39 Hysterectomy; Hernia repair; Heart Valve replacement; ll1 - Immunization history:: Flu vaccine is up to date. - Social history:: Smoking status: Patient reports the use of cigarette tobacco products, smokes one-half pack cigarettes per day, Patient uses alcohol, only on a social basis. "two drinks today". Patient/guardian denies using street drugs. Screenin:16 Abuse screen: Denies threats or abuse. Denies injuries from another. Nutritional jr10 screening: No deficits noted. Tuberculosis screening: No symptoms or risk factors identified. Fall Risk IV access (20 points). Assessment: 17:15 General: Appears in no apparent distress. Behavior is appropriate for age. Pain: Denies jr10 pain. Neuro: No deficits noted. Level of Consciousness is awake, alert, obeys commands, Oriented to person, place, time, situation, Appropriate for age. Cardiovascular: Reports shortness of breath, Denies chest pain, Capillary refill is > 3 seconds in left toes Pulses are absent in left posterior tibial artery and left dorsalis pedis artery pt noted to have no palpable pulse in left lower extremity, attempted doppler to pedal and tibial area without pulses noted; significant discoloration noted with increased cap refill; pt denies numbness, tingling or pain to extremity, foot is warm; pt reports discoloration that began yesterday; SHIKHA Pereira notified and aware of assessment finding Edema is 2+ to right ankle, right foot and right toes pitting to right ankle, right foot and right toes Rhythm is regular. Respiratory: Reports shortness of breath at rest on exertion Airway is patent Respiratory effort is even, unlabored, Respiratory pattern is regular, symmetrical, the patient has mild shortness of breath Denies cough, pain with respiration, pain with cough, pain with movement. GI: Reports decreased appetite Patient currently denies bloody stool, diarrhea, intolerance of fluids, intolerance of food, nausea, vomiting. : No deficits noted. No signs and/or symptoms were reported regarding the genitourinary system. EENT: No deficits noted. No signs and/or symptoms were reported regarding the EENT system. Derm: Skin is mottled, left lower leg since yesterday. Musculoskeletal: Capillary refill is > 3 seconds, in left toes. Reports weakness in generalized Denies pain in, left leg. 17:36 Reassessment: Pt family contact information: Maria Teresa [phone]. jr10 19:00 Reassessment: Patient appears in no apparent distress at this time. Patient and/or vc family updated on plan of care and expected duration. Pain level reassessed. Assumed care from TANI Boone Patient states symptoms have not improved. 20:00 Reassessment: Patient appears in no apparent distress at this time. Patient and/or vc family updated on plan of care and expected duration. Pain level reassessed. Patient is alert, oriented x 3, equal unlabored respirations, skin warm/dry/pink. Patient states symptoms have not improved. 20:25 Reassessment: Reassessment: Patient laying with eyes closed, chest rising and falling vc equally. 20:59 Reassessment: Patient and/or family updated on plan of care and expected duration. Pain vc level reassessed. Patient is alert, oriented x 3, equal unlabored respirations, skin warm/dry/pink. 21:30 Reassessment: Patients PTT at 113.7, heparin drip paused for 60 minutes, to be vc restarted at 450 units/hr. Vital Signs: 16:36 BP 87 / 36; Pulse 103; Resp 20; Temp 98.6; Pulse Ox 98% ; Pain 8/10; ll1 18:14 BP 111 / 69; Pulse 100; Resp 20; Pulse Ox 100% on R/A; jr10 18:22 Weight 53.5 kg; jr10 19:00 BP 125 / 70; Pulse 97; Resp 21; Pulse Ox 100% on R/A; vc 20:00 BP 141 / 51; Pulse 97; Resp 24; Pulse Ox 100% on R/A; vc 20:58 BP 158 / 78; Pulse 89; Resp 18; Temp 97.8(O); Pulse Ox 100% on R/A; vc ED Course: 16:24 Patient arrived in ED. ag5 16:35 [facility] kb 16:35 Jeb Dietrich MD is Attending Physician. kb 16:38 Triage completed. ll1 16:39 Arm band placed on Patient placed in an exam room, on a stretcher. ll1 16:50 Mely Lin, RN is Primary Nurse. jr10 17:02 Radiology exam delayed due to IV insertion attempt and/or patient not having vm2 appropriate IV at this time. 17:04 Chest Single View XRAY In Process Unspecified. EDMS 17:16 Patient has correct armband on for positive identification. Placed in gown. Bed in low jr10 position. Call light in reach. Side rails up X2. investment advisor on. Pulse ox on. NIBP on. 17:17 No provider procedures requiring assistance completed. Inserted saline lock: 20 gauge jr10 in right forearm, using aseptic technique. IV is patent, is intact, with fluids infusing freely, with good blood return, Flushed. 17:32 CT Chest For PE Angio In Process Unspecified. EDMS 18:11 US Extremity Venous Unilateral Ltd In Process Unspecified. EDMS 18:11 US Lower Extremity Artery Uni Ltd In Process Unspecified. EDMS 18:37 Assisted to bedside commode. jp3 18:45 T\\T\\S collected, blood band applied to patient. jp3 22:00 Patient admitted, IV remains in place. vc Administered Medications: 17:15 Drug: NS 0.9% 1000 ml Route: IV; Rate: 1000 ml; Site: right forearm; jr10 19:00 Follow up: IV Status: Completed infusion; IV Intake: 1000ml vc 18:24 Drug: Potassium Effervescent Tablet 50 mEq Route: PO; jr10 18:53 Follow up: Response: No adverse reaction jr10 19:14 Drug: Heparin (MD-Bolus No thrombolytic) - HEParin 60 units/kg {Co-Signature: vc jr10 (Magda Dunham RN).} Route: IVP; Site: right forearm; 21:07 Follow up: Response: No adverse reaction vc 19:16 Drug: Heparin (MD Drip) 12 units/kg/hr - (HEParin 16502 units, D5W 500 ml) jr {Co-Signature: vc (Magda Dunham RN).} Route: IV; Rate: calculated rate; Site: right forearm; Intake: 19:00 IV: 1000ml; Total: 1000ml. vc Outcome: 19:14 ER care complete, transfer ordered by . kb 22:10 Patient left the ED. vc 22:10 Transferred by ground EMS to [facility], Transfer form completed. vc X-rays sent w/ patient. 22:10 Condition: stable 22:10 Instructed on the need for transfer. Signatures: Dispatcher [employer] EDMS Angela Ferguson, LARRY CLINICAL DENTAL TECHNICIAN-Stacia Duran2 Kartik Villavicencio jp3 Grazyna Jones ag5 Magda Dunham RN RN Sharron Hoffman RN RN ll1 Mely Lin RN RN jr10 Magda Dunham RN, vc Corrections: (The following items were deleted from the chart) 19:30 18:22 55.79 kg; jr10 jr10 21:00 20:25 Reassessment: vc vc 21:00 20:54 Reassessment: Patient appears in no apparent distress at this time. Patient vc and/or family updated on plan of care and expected duration. Pain level reassessed. Patient states symptoms have not improved. vc
[2020-04-23] MEDS ORDERED: HEPARIN 5000 UNIT/ML 1 ML VIAL ONE (19:16)
--- NOTE | 2020-04-24 07:33 | EKG ---
Test Date: 2020-04-23 Test Time: 17:15:50 Engineering Scientist: SHELL MEASUREMENT RESULTS: Intervals: Rate: 88 WI: 130 QRSD: 80 QT: 466 QTc: 563 [place]: P: 50 WI: 130 QRS: 36 T: 25 INTERPRETIVE STATEMENTS: Sinus rhythm with occasional premature ventricular complexes Septal infarct, age undetermined Prolonged QT Abnormal ECG Compared to ECG 04/09/2020 06:34:08 Ventricular premature complex(es) now present Myocardial infarct finding now present Prolonged QT interval now present Electronically Signed On 04-24-20 07:32:30 CDT by Marcial Wood
[2020-04-27 18:02] VITALS: O2SAT 100
[2020-04-27 18:05] VITALS: BP 158/78; TEMP 97.8
== END 2020-04-23 22:10 | disposition short-term general hospital (02) ==
LOC: ER 16:21
DX: I31.3 Pericardial effusion (noninflammatory) (principal); I99.8 Other disorder of circulatory system; E87.6 Hypokalemia; F17.210 Nicotine dependence, cigarettes, uncomplicated; Z88.1 Allergy status to other antibiotic agents; Z85.038 Personal history of other malignant neoplasm of large intestine
CPT/HCPCS: 96361; 93005; 85025; 80048; 36415; 86900; 83735; 86850; 85610; 82565; 86901; 80076; 85730; 84443; 84484; 83880; 71275; 71045; 93926; 93971; 96374; 99285; Q9967; J1644 ×2; J7030

== ENCOUNTER 2020-05-06 01:07 | Inpatient (IN) | payer OTHER ==
--- OUTSIDE RECORDS SUMMARY | 2020-05-06 01:12 | XMS REPORT | Clinical Summary ---
:1955 Author Organization [facility] Address [address] [place] [address] Care Team Providers Name Role Phone Pcp Primary Care Provider Unavailable Param Grissom Unavailable Allergies Active Allergy Reactions Severity Noted Date Comments Sulfamethoxazole-Trimethoprim Swelling 11/16/2019 Sulfamethoxazole Anaphylaxis High 04/10/2016 Medications Medication Sig Dispensed Refills Start End Date Status Date metFORMIN Take 500 mg by 0 Activ e (GLUCOPHAGE) 500 mouth 2 (two) times 6 MG tablet daily with breakfast and dinner . ascorbic acid, Take 1,000 mg by 0 Active vitamin C, mouth daily . (VITAMIN C) 1000 MG tablet mometasone-formot Inhale 2 puffs by 0 Active tim (DULERA) mouth via inhaler 2 200-5 (two) times daily. mcg/actuation inhaler diphenhydrAMINE-z Apply topically 3 28.4 g 0 10/29 Active inc acetate (three) times daily 0 21 (BENADRYL EXTRA as needed for STRENGTH) 2-0.1 % Itching. cream clopidogreL Take 1 tablet (75 90 tablet 0 12/07/19 Active (PLAVIX) 75 mg mg total) by mouth 0 21 tablet daily. atorvastatin Take 1 tablet (40 90 tablet 0 12/07/19 Active (LIPITOR) 40 MG mg total) by mouth 0 21 tablet nightly. valACYclovir Take 1 tablet (500 30 tablet 0 Active (VALTREX) 500 MG mg total) by mouth 0 tablet daily. enoxaparin Inject 0.5 mLs (50 15 mL 0 06/02/20 Active (LOVENOX) 60 mg total) 0 20 mg/0.6 mL Syrg subcutaneously daily for 30 days. clopidogreL Take 1 tablet (75 30 tablet 11 05/03/20 Active (PLAVIX) 75 mg mg total) by mouth 0 [address]. [address] 1 patch onto 28 patch 0 12/07/19 D iscontinued (NICODERM CQ) 21 the skin daily for 0 20 mg/24 hr patch 30 days. albuterol HFA Inhale 1 puff by 1 Inhaler 0 12/07/19 Discontinued (VENTOLIN HFA) 90 mouth via inhaler 0 20 mcg/actuation every 6 (six) hours inhaler as needed for Wheezing for up to 30 days. furosemide Take 1 tablet (20 20 tablet 0 11/26/19 D iscontinued (LASIX) 20 MG mg total) by mouth 0 20 tablet daily as needed for up to 30 days. traZODone Take 1 tablet (50 30 tablet 0 12/07/19 Di scontinued (DESYREL) 50 MG mg total) by mouth 0 20 tablet every night as needed for Sleep for up to 30 days. aspirin 81 MG EC Take 81 mg by mouth 0 05/19 Discontinued tablet daily. 20 clopidogreL Take 1 tablet (75 360 tablet 0 12/07/19 Discontinued (PLAVIX) 75 mg mg total) by mouth 0 20 tablet daily. albuterol HFA Inhale 1 puff by 1 Inhaler 0 01/06/20 (VENTOLIN HFA) 90 mouth via inhaler 0 20 mcg/actuation every 6 (six) hours inhaler as needed for Wheezing for up to 30 days. traZODone Take 1 tablet (50 30 tablet 0 01/06/20 Ex pired (DESYREL) 50 MG mg total) by mouth 0 20 tablet every night as needed for Sleep for up to 30 days. warfarin Take 1 tablet (7.5 30 tablet 0 01/12/20 D iscontinued (COUMADIN, mg total) by mouth 0 20 JANTOVEN) 7.5 MG daily. tablet aspirin 81 MG EC Take 1 tablet (81 90 tablet 1 05/03 Discontinued tablet mg total) by mouth 0 20 daily. Active Problems Problem Noted Date Critical lower limb ischemia 04/24/2020 PFO (patent foramen ovale) 01/11/2020 Thalamic stroke [...] Encounters Date Type Specialty Care Team Description 04/29/2020 Surgery Pallister, VENOGRAM Braeden Salas MD 04/24/2020 Surgery Pallister, THROMBECTOMY-LO WER Braeden Salas MD 04/24/2020 Anesthesia Event Eliu Chandler AA 04/24/2020 Travel 04/23/2020 Hospital Encounter Cardiology Antonio Buitrago l cancer (HCC); - Helio Critical lower limb ischemia; 05/03/2020 MD Shama Malignant neoplasm of upper lobe of righ t lung (HCC); Melody Caballero Aortic valve stenosis, severe; MD Tri Liver metastases (HCC); Gadicherla, Type 2 diabetes mellitus without complication, without long-term current use of insulin (HCC) Zhane Wright MD 04/03/2020 Lab Requisition Lab 01/11/2020 Surgery [place]na TRANSCATHETER C LOSURE Helio OF ASD MD Shama 01/11/2020 Anesthesia Event Yoko Olmos MD 01/11/2020 Hospital Encounter Cardiac Intensive Minna, Aort ic valve stenosis, severe (Primary Dx); - Care Helio Hypertension, u nspecified type; 01/12/2020 MD Shama PFO (patent for amen ovale); Thalamic stroke (HCC); Type 2 diabetes mellitus without complication, without long-term current use of insulin (HCC) 01/11/2020 Travel 01/11/2020 Orders Only General Internal Medicine 01/08/2020 Office Visit Cardiology Minna, Preop cardiovas cular Helio exam (Primary D x) MD Abel Sesay Mae, LVN 01/05/2020 Telephone Cardiology Ash, Pre-op Exam Fransisca Hawley 11/29/2019 Hospital Encounter General Internal Heidi Franco Bg herbert stroke ([facility]); - Le Underwood MD Anticoagulated; 12/07/2019 Nicolasa, S/P TAVR (trans catheter aortic valve replacement); Nickolas Arizmendi, Type 2 diabe bushra mellitus without complication, without long- term current use of insulin ([facility]); Essential hypertension; Tito, Aortic valve st enosis, severe; Tania Gay, COPD exacerbat ion ([facility]); Malignant neopl asm of upper lobe of right lung ([facility]); Cerebrovascular accident (CVA) due to embolism of precerebral artery ([facility]); Colorectal canc er ([facility]); Malignant neopl asm of lung, unspecified laterality, unspecified part of lung ([facility]); Hypertension, u nspecified type; Hyponatremia 11/29/2019 Travel 11/23/2019 Orders Only General Internal Medicine 11/22/2019 Surgery Jonathan Pepper REPLACEMENT, TRANSCATHET MD Yisel ER CORE AORTIC VALVE (TAVR/ANN MARIE) 11/22/2019 Anesthesia Event Murphy Hardy AA 11/17/2019 Anesthesia Event Murphy Hardy AA 11/17/2019 Hospital Encounter Cardiology Jonathan Pepper Nonrhe umatic aortic valve stenosis (Primary Dx); - MD Yisel COPD exacerbat ion ([facility]); 11/26/2019 Lung mass; Malignant neopl asm of upper lobe of right lung ([facility]); Severe aortic s tenosis; SOB (shortness of breath); Recurrent genit al herpes; Immunocompromis ed patient ([facility]); Acute respirato ry insufficiency; Type 2 diabetes mellitus without complication, without long-term current use of insulin ([facility]); Anemia, unspeci fied type; S/p TAVR (trans catheter aortic valve replacement), bioprosthetic 11/16/2019 Hospital Encounter Jonathan Pepper MD 11/16/2019 Orders Only Cardiology Marina Allan MA 11/07/2019 Documentation Research Winsome Merritt 11/01/2019 Surgery Minna, R & L CATH / CO RONARY Helio ANGIOS (+/- LV) MD Shama 10/31/2019 Travel 10/30/2019 Hospital Encounter Cardiology Daniel Sinclair SOB (sh ortness of breath) (Primary Dx); - MD Ronnie COPD exacerbation (HCC); 11/04/2019 Jude Overton Lung mass; MD Coty Smoker; Non-rheumatic a ortic stenosis; Chronic obstruc tive pulmonary disease, unspecified COPD type (HCC); Nonrheumatic ao rtic valve stenosis; Colorectal canc er (HCC); Squamous cell l brina cancer, right (HCC) 10/30/2019 Orders Only General Internal Medicine 10/30/2019 Travel after 05/06/2019 Social History Tobacco Use Types Packs/Day Years [...] Vital Sign Reading Time Taken Blood Pressure 122/75 05/03/2020 11:00 AM CDT Pulse 94 05/03/2020 11:00 AM CDT Temperature 36.7 C (98.1 F) 05/03/2020 11:00 AM CDT Respiratory Rate 18 05/03/2020 11:00 AM CDT Oxygen Saturation 98% 05/03/2020 11:00 AM CDT Inhaled Oxygen Concentration 21% 11/24/2019 8:18 AM CDT Weight 51.4 kg (113 lb 5.1 oz) 04/28/2020 8:22 AM CDT Height 165.1 cm (5' 5") 04/23/2020 11:15 PM CDT Body Mass Index 18.86 04/28/2020 8:22 AM CDT Plan of Treatment Health Maintenance Due Date Last Done Comments BREAST CANCER SCREENING 1955 COLON CANCER SCREENING COLONOSCOPY 1955 PNEUMOCOCCAL VACCINE 2-64 YEARS AT RISK (1 of 3 - 1963 PCV13) DIABETIC EYE EXAM 1967 DIABETIC FOOT EXAM 1967 URINE MICROALBUMIN 1967 CERVICAL CANCER SCREENING PAP ONLY (Age 21-65) 1978 MEDICARE ANNUAL WELLNESS (YEAR 2 or FIRST YEAR if no 01/29/2019 IPPE) INFLUENZA VACCINE (#1) 2020 HEMOGLOBIN A1C 05/30/2020 11/29/2019 LIPID PANEL 11/28/2022 11/29/2019 Implants Implanted Type Area Flavorer Device Shelf Model / Identifier Expiration Serial / Date Lot Occl Pfo Amplatzer 25mm 9-[id number] - [id number] IMPLANTS N/A: Marta rt AGA MED [id number] 08/29/2024 [id number] / Implanted: Qty: 1 on 01/11/2020 by Helio Buitrago MD / [id number] [facility] Knit Gld [id number] - [id number] IMPLANTS Le ft: GETINGE [id number] 11/27/2024 [id number] / Implanted: Qty: 1 on 04/24/2020 by Braeden Ludwig MD Arterial IND:MAQUET:CV [id number] / 20D22 Stent Innova [id number] - [id number] IMPLANTS Left : Leg BOSTON [id number] 02/03/2025 [id number] / Implanted: Qty: 1 on 04/29/2020 by Braeden Ludwig MD SCI:PERIPHERAL / INTERV [id number] Evolut Pro + Trancatheter Aortic Valve Valves N/A: Heart ME DTRONIC [id number] 05/28/2020 [id number] / Implanted: Qty: 1 on 11/22/2019 by Jonathan Pepper MD [id number] / Procedures Procedure Name Priority Date/Time Associated Diagnosis Comme nts POCT-GLUCOSE METER Routine 05/03/2020 11:05 Resul ts for this AM CDT procedure are i n the results section. POCT-GLUCOSE METER Routine 05/03/2020 7:51 Resul ts for this AM CDT procedure are i n the results section. POCT-GLUCOSE METER Routine 05/02/2020 9:21 Resul ts for this PM CDT procedure are i n the results section. POCT-GLUCOSE METER Routine 05/02/2020 3:50 Resul ts for this PM CDT procedure are i n the results section. BASIC METABOLIC Routine 05/02/2020 1:42 Results for this PANEL (7) PM CDT procedure are i n the results section. POCT-GLUCOSE METER Routine 05/02/2020 11:58 Resul ts for this AM CDT procedure are i n the results section. POCT-GLUCOSE METER Routine 05/02/2020 8:06 Resul ts for this AM CDT procedure are i n the results section. POCT-GLUCOSE METER Routine 05/01/2020 9:20 Resul ts for this PM CDT procedure are i n the results section. POCT-GLUCOSE METER Routine 05/01/2020 4:25 Resul ts for this PM CDT procedure are i n the results section. POCT-GLUCOSE METER Routine 05/01/2020 11:58 Resul ts for this AM CDT procedure are i n the results section. POCT-GLUCOSE METER Routine 05/01/2020 6:49 Resul ts for this AM CDT procedure are i n the results section. CBC (HEMOGRAM ONLY) Routine 04/30/2020 10:16 Resu lts for this PM CDT procedure are i n the results section. POCT-GLUCOSE METER Routine 04/30/2020 9:00 Resul ts for this PM CDT procedure are i n the results section. TRANSFUSION SERVICE 04/30/2020 6:10 REPORT - SCAN PM CDT POCT-GLUCOSE METER Routine 04/30/2020 4:45 Resul ts for this PM CDT procedure are i n the results section. POCT-GLUCOSE METER Routine 04/30/2020 12:01 Resul ts for this PM CDT procedure are i n the results section. POCT-GLUCOSE METER Routine 04/30/2020 7:13 Resul ts for this AM CDT procedure are i n the results section. POCT-GLUCOSE METER Routine 04/29/2020 9:02 Resul ts for this PM CDT procedure are i n the results section. POCT-GLUCOSE METER Routine 04/29/2020 4:18 Resul ts for this PM CDT procedure are i n the results section. CBC (HEMOGRAM ONLY) STAT 04/29/2020 1:51 Resu lts for this PM CDT procedure are i n the results section. POCT-GLUCOSE METER Routine 04/29/2020 12:07 Resul ts for this PM CDT procedure are i n the results section. PREPARE 04/29/2020 10:07 Results for this LEUKO-REDUCED RBC AM CDT procedure are in the results section. VENOGRAM 04/29/2020 10:02 Peripheral vascular AM CDT disease, unspecified (HCC) Case Notes (2)CASE 1005 / 27mgy POCT-GLUCOSE METER Routine 04/29/2020 7:17 AM Re sults for this CDT procedure are i n the results section. CBC W/PLT COUNT & AUTO Routine 04/29/2020 4:23 AM Results for this DIFFERENTIAL CDT procedure are i n the results section. TYPE AND SCREEN, Routine 04/29/2020 4:23 AM Resu lts for this AUTOMATED CDT procedure are i n the results section. CBC W/PLT COUNT & AUTO Routine 04/29/2020 4:23 AM Results for this DIFFERENTIAL CDT procedure are i n the results section. PT/APTT Routine 04/29/2020 4:23 AM Results for this CDT procedure are i n the results section. BASIC METABOLIC PANEL (7) Routine 04/29/2020 4:23 AM Results for this CDT procedure are i n the results section. POCT-GLUCOSE METER Routine 04/28/2020 9:12 PM Re sults for this CDT procedure are i n the results section. SARS-COV2/RT-PCR ([facility] & STAT 04/28/2020 7:10 PM Results for this REF LABS) CDT procedure are i n the results section. POCT-GLUCOSE METER Routine 04/28/2020 4:28 PM Re sults for this CDT procedure are i n the results section. POCT-GLUCOSE METER Routine 04/28/2020 11:39 AM Re sults for this CDT procedure are i n the results section. CT CHEST WITH IV CONTRAST Routine 04/28/2020 7:57 AM Results for this CDT procedure are i n the results section. POCT-GLUCOSE METER Routine 04/28/2020 6:43 AM Re sults for this CDT procedure are i n the results section. CBC (HEMOGRAM ONLY) Routine 04/28/2020 4:15 AM R esults for this CDT procedure are i n the results section. POCT-GLUCOSE METER Routine 04/27/2020 8:55 PM Re sults for this CDT procedure are i n the results section. POCT-GLUCOSE METER Routine 04/27/2020 4:03 PM Re sults for this CDT procedure are i n the results section. POCT-GLUCOSE METER Routine 04/27/2020 11:28 AM Re sults for this CDT procedure are i n the results section. POCT-GLUCOSE METER Routine 04/27/2020 7:09 AM Re sults for this CDT procedure are i n the results section. POCT-GLUCOSE METER Routine 04/26/2020 8:55 PM Re sults for this CDT procedure are i n the results section. TRANSFUSION SERVICE 04/26/2020 6:00 PM REPORT - SCAN CDT POCT-GLUCOSE METER Routine 04/26/2020 4:22 PM Re sults for this CDT procedure are i n the results section. PV ARTERIAL ARTURO STAT 04/26/2020 12:55 PM Resul ts for this UNILATERAL CDT procedure are i n the results section. POCT-GLUCOSE METER Routine 04/26/2020 10:58 AM Re sults for this CDT procedure are i n the results section. MR BRAIN WITH & WITHOUT Routine 04/26/2020 8:38 AM Results for this IV CONTRAST CDT procedure are i n the results section. POCT-GLUCOSE METER Routine 04/26/2020 7:01 AM Re sults for this CDT procedure are i n the results section. CBC W/PLT COUNT & AUTO Routine 04/26/2020 3:54 AM Results for this DIFFERENTIAL CDT procedure are i n the results section. CARCINOEMBRYONIC ANTIGEN Routine 04/26/2020 3:54 AM Results for this (CEA) CDT procedure are i n the results section. BASIC METABOLIC PANEL (7) Routine 04/26/2020 3:54 AM Results for this CDT procedure are i n the results section. CBC W/PLT COUNT & AUTO Routine 04/26/2020 3:54 AM Results for this DIFFERENTIAL CDT procedure are i n the results section. APTT Routine 04/26/2020 3:54 AM Results for this CDT procedure are i n the results section. PREPARE LEUKO-REDUCED RBC STAT 04/25/2020 11:54 PM Results for this CDT procedure are i n the results section. APTT Routine 04/25/2020 11:12 PM Results for this CDT procedure are i n the results section. POCT-GLUCOSE METER Routine 04/25/2020 9:15 PM Re sults for this CDT procedure are i n the results section. TRANSFUSION SERVICE 04/25/2020 6:02 PM REPORT - SCAN CDT POCT-GLUCOSE METER Routine 04/25/2020 4:57 PM Re sults for this CDT procedure are i n the results section. APTT Routine 04/25/2020 3:27 PM Results for this CDT procedure are i n the results section. POCT-GLUCOSE METER Routine 04/25/2020 2:37 PM Re sults for this CDT procedure are i n the results section. APTT Routine 04/25/2020 9:03 AM Results for this CDT procedure are i n the results section. POCT-GLUCOSE METER Routine 04/25/2020 7:33 AM Re sults for this CDT procedure are i n the results section. CBC W/PLT COUNT & AUTO Routine 04/25/2020 3:38 AM Results for this DIFFERENTIAL CDT procedure are i n the results section. MAGNESIUM Routine 04/25/2020 3:38 AM Results for this CDT procedure are i n the results section. BASIC METABOLIC PANEL (7) Routine 04/25/2020 3:38 AM Results for this CDT procedure are i n the results section. CBC W/PLT COUNT & AUTO Routine 04/25/2020 3:38 AM Results for this DIFFERENTIAL CDT procedure are i n the results section. APTT Routine 04/25/2020 3:38 AM Results for this CDT procedure are i n the results section. POCT-GLUCOSE METER Routine 04/24/2020 11:26 PM Re sults for this CDT procedure are i n the results section. CBC (HEMOGRAM ONLY) Routine 04/24/2020 9:10 PM R esults for this CDT procedure are i n the results section. APTT Routine 04/24/2020 9:10 PM Results for this CDT procedure are i n the results section. 2D ECHO W/ DOPPLER STAT 04/24/2020 6:50 PM Re sults for this (CW/PW/COLOR) CDT procedure are in the results section. HEMOGLOBIN AND HEMATOCRIT STAT 04/24/2020 6:03 PM Results for this CDT procedure are i n the results section. BASIC METABOLIC PANEL (7) STAT 04/24/2020 6:03 PM Results for this CDT procedure are i n the results section. BLOOD GAS, ARTERIAL 04/24/2020 5:27 PM R esults for this CDT procedure are i n the results section. PREPARE RBC STAT 04/24/2020 5:14 PM Results for this CDT procedure are i n the results section. POCT-ACT Routine 04/24/2020 3:37 PM Results for this CDT procedure are i n the results section. POCT-ACT Routine 04/24/2020 2:57 PM Results for this CDT procedure are i n the results section. HGB/HCT (H&H) - STAT LAB STAT 04/24/2020 2:56 PM Results for this CDT procedure are i n the results section. GLUCOSE-STAT LAB STAT 04/24/2020 2:56 PM Resu lts for this CDT procedure are i n the results section. POTASSIUM-STAT LAB STAT 04/24/2020 2:56 PM Re sults for this CDT procedure are i n the results section. SODIUM NA-STAT LAB STAT 04/24/2020 2:56 PM Re sults for this CDT procedure are i n the results section. BLOOD GAS, ARTERIAL STAT 04/24/2020 2:56 PM R esults for this CDT procedure are i n the results section. CALCIUM, IONIZED STAT 04/24/2020 2:56 PM Resu lts for this CDT procedure are i n the results section. RRL CRITICAL LABS STAT 04/24/2020 2:56 PM Res ults for this (ABG,NA,K,H&H,GLUCOSE) CDT proce dure are in the results section. BYPASS,FEMORAL-FEMORAL 04/24/2020 2:15 PM Limb ischem ia CDT THROMBECTOMY-LOWER 04/24/2020 2:15 PM Limb ischemia CDT XR CHEST 1 VIEW Routine 04/24/2020 1:09 PM Resul ts for this PORTABLE/BEDSIDE CDT procedure a re in the results section. TRANSFUSE LEUKO-REDUCED Routine 04/24/2020 12:02 PM RED BLOOD CELLS CDT MAGNESIUM Routine 04/24/2020 12:01 PM Results for this CDT procedure are i n the results section. POTASSIUM Routine 04/24/2020 12:01 PM Results for this CDT procedure are i n the results section. HEMOGLOBIN AND HEMATOCRIT Routine 04/24/2020 12:01 PM Results for this CDT procedure are i n the results section. POCT-GLUCOSE METER Routine 04/24/2020 11:50 AM Re sults for this CDT procedure are i n the results section. CT BRAIN WITH & WITHOUT STAT 04/24/2020 11:10 AM Results for this IV CONTRAST CDT procedure are i n the results section. CT/CTA AAA AND RUNOFF STAT 04/24/2020 11:10 AM Results for this CDT procedure are i n the results section. ARTERIAL DOPPLER LEG, STAT 04/24/2020 7:54 AM Results for this LEFT CDT procedure are i n the results section. PREPARE LEUKO-REDUCED RBC Routine 04/24/2020 6:48 AM Results for this CDT procedure are i n the results section. APTT Routine 04/24/2020 6:48 AM Results for this CDT procedure are i n the results section. CBC W/PLT COUNT & AUTO Routine 04/24/2020 4:55 AM Results for this DIFFERENTIAL CDT procedure are i n the results section. BASIC METABOLIC PANEL (7) Routine 04/24/2020 4:55 AM Results for this CDT procedure are i n the results section. CBC W/PLT COUNT & AUTO Routine 04/24/2020 4:55 AM Results for this DIFFERENTIAL CDT procedure are i n the results section. SARS-COV2/RT-PCR ([facility] & Routine 04/24/2020 4:55 AM Results for this REF LABS) CDT procedure are i n the results section. POCT-GLUCOSE METER Routine 04/24/2020 12:59 AM Re sults for this CDT procedure are i n the results section. CBC W/PLT COUNT & AUTO Routine 04/23/2020 11:26 PM Results for this DIFFERENTIAL CDT procedure are i n the results section. TYPE AND SCREEN, Routine 04/23/2020 11:26 PM Resu lts for this AUTOMATED CDT procedure are i n the results section. COMPREHENSIVE METABOLIC Routine 04/23/2020 11:26 PM Results for this PANEL CDT procedure are i n the results section. MAGNESIUM Routine 04/23/2020 11:26 PM Results for this CDT procedure are i n the results section. PT/APTT Routine 04/23/2020 11:26 PM Results for this CDT procedure are i n the results section. CBC W/PLT COUNT & AUTO Routine 04/23/2020 11:26 PM Results for this DIFFERENTIAL CDT procedure are i n the results section. SARS-COV2/RT-PCR ([facility] & Routine 04/02/2020 9:50 PM Results for this REF LABS) CDT procedure are i n the results section. RHYTHM STRIP - SCAN 01/15/2020 1:50 PM CDT CARDIAC CATH REPORT - 01/15/2020 1:50 PM SCAN CDT 2D ECHO W/ DOPPLER STAT 01/12/2020 9:23 AM Re sults for this (CW/PW/COLOR) CDT procedure are in the results section. BASIC METABOLIC PANEL (7) Routine 01/12/2020 4:56 AM Results for this CDT procedure are i n the results section. CBC (HEMOGRAM ONLY) Routine 01/12/2020 4:55 AM R esults for this CDT procedure are i n the results section. XR CHEST 1 VIEW Routine 01/12/2020 3:27 AM Resul ts for this PORTABLE/BEDSIDE CDT procedure a re in the results section. POCT-ACT Routine 01/11/2020 10:51 AM Results for this CDT procedure are i n the results section. 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 POCT-GLUCOSE METER Routine 11/03/2019 10:17 Resul ts for this PM SYNTHETIC STAPLE EXTRUDER procedure are i n the results section. POCT-GLUCOSE METER Routine 11/03/2019 6:18 Resul ts for this PM SYNTHETIC STAPLE EXTRUDER procedure are i n the results section. NM BONE SCAN WHOLE BODY Routine 11/03/2019 3:57 Results for this PM SYNTHETIC STAPLE EXTRUDER procedure are i n the results section. POCT-GLUCOSE METER Routine 11/03/2019 11:20 Resul ts for this AM SYNTHETIC STAPLE EXTRUDER procedure are i n the results section. POCT-GLUCOSE METER Routine 11/03/2019 7:51 Resul ts for this AM SYNTHETIC STAPLE EXTRUDER procedure are i n the results section. CBC W/PLT COUNT & AUTO Routine 11/03/2019 3:56 R esults for this DIFFERENTIAL AM SYNTHETIC STAPLE EXTRUDER procedure are i n the results section. PHOSPHORUS Routine 11/03/2019 3:56 Results for this AM SYNTHETIC STAPLE EXTRUDER procedure are i n the results section. MAGNESIUM Routine 11/03/2019 3:56 Results for this AM SYNTHETIC STAPLE EXTRUDER procedure are i n the results section. COMPREHENSIVE METABOLIC Routine 11/03/2019 3:56 Results for this PANEL AM SYNTHETIC STAPLE EXTRUDER procedure are i n the results section. CBC W/PLT COUNT & AUTO Routine 11/03/2019 3:56 R esults for this DIFFERENTIAL AM SYNTHETIC STAPLE EXTRUDER procedure are i n the results section. POCT-GLUCOSE METER Routine 11/02/2019 9:55 Resul ts for this PM SYNTHETIC STAPLE EXTRUDER procedure are i n the results section. PERIPHERAL VASCULAR 11/02/2019 9:11 REPORT - SCAN PM SYNTHETIC STAPLE EXTRUDER CTA CHEST Routine 11/02/2019 7:17 Results for this PM SYNTHETIC STAPLE EXTRUDER procedure are i n the results section. CTA ABDOMEN & PELVIS Routine 11/02/2019 7:17 Res ults for this PM SYNTHETIC STAPLE EXTRUDER procedure are i n the results section. TRANSFUSION SERVICE 11/02/2019 5:52 REPORT - SCAN PM SYNTHETIC STAPLE EXTRUDER POCT-GLUCOSE METER Routine 11/02/2019 5:30 Resul ts for this PM SYNTHETIC STAPLE EXTRUDER procedure are i n the results section. PULMONARY FUNCTION - 11/02/2019 3:02 SCAN PM SYNTHETIC STAPLE EXTRUDER POCT-GLUCOSE METER Routine 11/02/2019 1:16 Resul ts for this PM SYNTHETIC STAPLE EXTRUDER procedure are i n the results section. POCT-GLUCOSE METER Routine 11/02/2019 1:06 Resul ts for this PM SYNTHETIC STAPLE EXTRUDER procedure are i n the results section. POCT-GLUCOSE METER Routine 11/02/2019 10:08 Resul ts for this AM SYNTHETIC STAPLE EXTRUDER procedure are i n the results section. CAROTID DOPPLER Routine 11/02/2019 9:27 Results for this BILATERAL AM SYNTHETIC STAPLE EXTRUDER procedure are i n the results section. CBC W/PLT COUNT & AUTO Routine 11/02/2019 4:38 R esults for this DIFFERENTIAL AM SYNTHETIC STAPLE EXTRUDER procedure are i n the results section. PHOSPHORUS Routine 11/02/2019 4:38 Results for this AM SYNTHETIC STAPLE EXTRUDER procedure are i n the results section. MAGNESIUM Routine 11/02/2019 4:38 Results for this AM SYNTHETIC STAPLE EXTRUDER procedure are i n the results section. COMPREHENSIVE METABOLIC Routine 11/02/2019 4:38 Results for this PANEL AM SYNTHETIC STAPLE EXTRUDER procedure are i n the results section. CBC W/PLT COUNT & AUTO Routine 11/02/2019 4:38 R esults for this DIFFERENTIAL AM SYNTHETIC STAPLE EXTRUDER procedure are i n the results section. POCT-GLUCOSE METER Routine 11/01/2019 10:18 Resul ts for this PM SYNTHETIC STAPLE EXTRUDER procedure are i n the results section. ECHOCARDIOGRAM REPORT - 11/01/2019 9:20 SCAN PM SYNTHETIC STAPLE EXTRUDER SPIROMETRY Routine 11/01/2019 5:02 Results for this PM SYNTHETIC STAPLE EXTRUDER procedure are i n the results section. 2D ECHO W/ DOPPLER STAT 11/01/2019 1:22 Resul ts for this (CW/PW/COLOR) PM SYNTHETIC STAPLE EXTRUDER procedure are in the results section. POCT-GLUCOSE METER Routine 11/01/2019 1:20 Resul ts for this PM SYNTHETIC STAPLE EXTRUDER procedure are i n the results section. R & L CATH / CORONARY 11/01/2019 7:35 Aortic valve ANGIOS (+/- LV) AM SYNTHETIC STAPLE EXTRUDER stenosis, etiology of cardiac valve disease unspecified POCT-GLUCOSE METER Routine 11/01/2019 6:25 Resul ts for this AM SYNTHETIC STAPLE EXTRUDER procedure are i n the results section. ABORH, MANUAL STAT 11/01/2019 5:53 Results fo r this AM SYNTHETIC STAPLE EXTRUDER procedure are i n the results section. CBC W/PLT COUNT & AUTO Routine 11/01/2019 4:44 R esults for this DIFFERENTIAL AM SYNTHETIC STAPLE EXTRUDER procedure are i n the results section. TYPE AND SCREEN, Routine 11/01/2019 4:44 Results for this AUTOMATED AM SYNTHETIC STAPLE EXTRUDER procedure are i n the results section. PROTHROMBIN TIME/INR Routine 11/01/2019 4:44 Res ults for this AM SYNTHETIC STAPLE EXTRUDER procedure are i n the results section. PHOSPHORUS Routine 11/01/2019 4:44 Results for this AM SYNTHETIC STAPLE EXTRUDER procedure are i n the results section. MAGNESIUM Routine 11/01/2019 4:44 Results for this AM SYNTHETIC STAPLE EXTRUDER procedure are i n the results section. COMPREHENSIVE METABOLIC Routine 11/01/2019 4:44 Results for this PANEL AM SYNTHETIC STAPLE EXTRUDER procedure are i n the results section. CBC W/PLT COUNT & AUTO Routine 11/01/2019 4:44 R esults for this DIFFERENTIAL AM SYNTHETIC STAPLE EXTRUDER procedure are i n the results section. POCT-GLUCOSE METER Routine 11/01/2019 12:02 Resul ts for this AM SYNTHETIC STAPLE EXTRUDER procedure are i n the results section. POCT-GLUCOSE METER Routine 10/31/2019 10:01 Resul ts for this PM SYNTHETIC STAPLE EXTRUDER procedure are i n the results section. POCT-GLUCOSE METER Routine 10/31/2019 5:34 Resul ts for this PM SYNTHETIC STAPLE EXTRUDER procedure are i n the results section. POCT-GLUCOSE METER Routine 10/31/2019 7:52 Resul ts for this AM SYNTHETIC STAPLE EXTRUDER procedure are i n the results section. POCT-GLUCOSE METER Routine 10/31/2019 6:30 Resul ts for this AM SYNTHETIC STAPLE EXTRUDER procedure are i n the results section. VENOUS DOPPLER LEGS STAT 10/30/2019 6:00 Resu lts for this BILATERAL PM SYNTHETIC STAPLE EXTRUDER procedure are i n the results section. CT CHEST PE TEST DESIGN STAT 10/30/2019 5:29 Results for this PM SYNTHETIC STAPLE EXTRUDER procedure are i n the results section. CBC W/PLT COUNT & AUTO STAT 10/30/2019 4:04 R esults for this DIFFERENTIAL PM SYNTHETIC STAPLE EXTRUDER procedure are i n the results section. PT/APTT STAT 10/30/2019 4:04 Results for this PM SYNTHETIC STAPLE EXTRUDER procedure are i n the results section. CBC W/PLT COUNT & AUTO STAT 10/30/2019 4:04 R esults for this DIFFERENTIAL PM SYNTHETIC STAPLE EXTRUDER procedure are i n the results section. TROPONIN I STAT 10/30/2019 4:04 Results for this PM SYNTHETIC STAPLE EXTRUDER procedure are i n the results section. B-TYPE NATRIURETIC STAT 10/30/2019 4:04 Resul ts for this FACTOR (BNP) PM SYNTHETIC STAPLE EXTRUDER procedure are i n the results section. MAGNESIUM STAT 10/30/2019 4:04 Results for this PM SYNTHETIC STAPLE EXTRUDER procedure are i n the results section. BASIC METABOLIC PANEL STAT 10/30/2019 4:04 Re sults for this (7) PM SYNTHETIC STAPLE EXTRUDER procedure are i n the results section. XR CHEST 1 VIEW STAT 10/30/2019 3:16 Results for this PORTABLE/BEDSIDE PM SYNTHETIC STAPLE EXTRUDER procedure a re in the results section. ECG 12-LEAD Routine 10/30/2019 1:25 PM SYNTHETIC STAPLE EXTRUDER Procedure Note - Interface, External Ris In - 10/30/2019 6:59 PM SYNTHETIC STAPLE EXTRUDER Ventricular Rate 88 BPM Atrial Rate 88 BPM P-R Interval 162 ms QRS Duration 92 ms Q-T Interval 384 ms QTC Calculation(Bazett) 464 ms P [place] 67 degrees R [place] 32 degrees T [place] 53 degrees Normal sinus rhythm Possible Left atrial enlarge ment Nonspecific ST abnormality Abnormal ECG No previous ECGs available ECG 12-LEAD STAT 10/30/2019 1:25 PM SYNTHETIC STAPLE EXTRUDER Resu lts for this procedure are in the results section . after 05/06/2019 Results POC-Glucose meter (05/03/2020 11:05 AM CDT)Only the most recent of117 results within the time period is included. POC-Glucose Meter 131 (H)Comment: : TESTED 70 - 110 mg/dL [facility] [address], [id number]: Senior Software Tester/Theatre Arts Professor ID = [id number] for INDIRA WELSH Specimen Blood Performing Organization Address [facility] Phone Number [address] [address] [place] Basic Metabolic Panel (05/02/2020 1:42 PM CDT)Only the most recent of21 results within the time period is included. Sodium 136 136 - 145 meq/L [facility] Potassium 4.2 3.5 - 5.1 meq/L [facility] Chloride 98 98 - 107 meq/L [facility] CO2 29 22 - 29 meq/L [facility] BUN 15 7 - 21 mg/dL [facility] Creatinine 0.70 0.57 - 1.25 mg/dL [facility] Glucose 147 (H) 70 - 105 mg/dL [facility] Calcium 9.0 8.4 - 10.2 mg/dL [facility] EGFR 85Comment: ESTIMATED GFR IS mL/min/1.73 sq m [facility] NOT ACCURATE CREATININE TX DICAL CENTER CLEARANCE IN PREDICTING GLOMERULAR FILTRATION RATE. ESTIMATED GFR IS NOT APPLICABLE FOR DIALYSIS PATIENTS. Specimen Blood Narrative Performed At Senior Software Tester ID - [id number] [facility] Performing Organization Address [facility]/Zipcode Phone Number [address] [address] [place] CBC (Hemogram only) (04/30/2020 10:16 PM CDT)Only the most recent of18 results within the time period is included. WBC 10.1 3.5 - 10.5 K/L [facility] RBC 2.70 (L) 3.93 - 5.22 M/L [facility] Hemoglobin 7.4 (L) 11.2 - 15.7 GM/DL [facility] Hematocrit 24.2 (L) 34.1 - 44.9 % [facility] MCV 89.6 79.4 - 94.8 fL [facility] MCH 27.4 25.6 - 32.2 pg [facility] MCHC 30.6 (L) 32.2 - 35.5 GM/DL [facility] RDW 18.6 (H) 11.7 - 14.4 % [facility] Platelets 290 150 - 450 K/CU MM [facility] MPV 9.6 9.4 - 12.3 fL [facility] nRBC 0 0 - 0 /100 WBC [facility] Specimen Blood Performing Organization Address City/State/Zipcode Phone Number [facility] [address] [place] [address] [place] TRANSFUSION SERVICE REPORT - SCAN (04/30/2020 6:10 PM CDT)Only the most recent of8 resultswithin the time period is included. Narrative Performed At This result has an attachment that is no t available. Prepare Leuko-Red RBC (04/29/2020 10:07 AM CDT)Only the most recent of3 results within the time period is included. CROSSMATCH COMPATIBLE SAFETRACE TX Unit ABO O Pos SAFETRACE TX UNIT NUMBER [id number] SAFETRACE TX Status READY SAFETRACE TX Blood Bank Product RED BLOOD CELLS SAFETRACE TX PRODUCT CODE [id number] SAFETRACE TX Specimen Other Performing Organization Address [facility] Phone Number SAFETRACE TX Type and screen, automated (04/29/2020 4:23 AM CDT)Only the most recent of5 resultswithin the time period is included. ABO/RH AUTOMATED (BEAKER) O POSITIVE [facility] Ab Scrn NEGATIVE [facility] Specimen Blood Performing Organization Address [facility] Facility[facility] Phone Number [facility] [address] [place] [address] [phone] PT/aPTT (04/29/2020 4:23 AM CDT)Only the most recent of10 resultswithin the time period is included. Protime 14.9 (H) 11.9 - 14.2 seconds [facility] INR 1.20 <=5.90 [facility] PTT 44.7 (H) 22.5 - 36.0 seconds [facility] Specimen Blood Narrative Performed At Effective 01/25/2019: PT Reference Range [facility] Change New: 11.9-14.2Previous: 11.7-14.7 RECOMMENDED COUMADIN/WARFARIN INR THERAPY RANGES STANDARD DOSE: 2.0-3.0Includes: PROPHYLAXIS for venous thrombosis, systemic embolization; TREATMENT for venous thrombosis and/or pulmonary embolus. HIGH RISK: Target INR is 2.5-3.5 for patients wiht mechanical heart valves. Performing Organization Address [facility] Facility[facility] Phone Number [facility] [address] [place] [address] CENTER CBC with platelet count + automated diff (04/29/2020 4:23 AM CDT)Only the most recent of13 resultswithin the time period is included. WBC 7.4 3.5 - 10.5 K/L [facility] RBC 2.81 (L) 3.93 - 5.22 M/L [facility] Hemoglobin 7.7 (L) 11.2 - 15.7 GM/DL [facility] Hematocrit 25.6 (L) 34.1 - 44.9 % [facility] MCV 91.1 79.4 - 94.8 fL [facility] MCH 27.4 25.6 - 32.2 pg [facility] MCHC 30.1 (L) 32.2 - 35.5 GM/DL [facility] RDW 18.8 (H) 11.7 - 14.4 % [facility] Platelets 223 150 - 450 K/CU MM [facility] MPV 9.3 (L) 9.4 - 12.3 fL [facility] nRBC 0 0 - 0 /100 WBC [facility] % Neutros 80 % [facility] % Lymphs 7 % [facility] % Monos 10 % [facility] % Eos 2 % [facility] % Baso 0 % [facility] # Neutros 5.95 1.56 - 6.13 K/L [facility] # Lymphs 0.53 (L) 1.18 - 3.74 K/L [facility] # Monos 0.75 (H) 0.24 - 0.36 K/L [facility] # Eos 0.14 0.04 - 0.36 K/L [facility] # Baso 0.01 0.01 - 0.08 K/L [facility] Immature Granulocytes-Relative 1 0 - 1 % C HI [facility] Specimen Blood Performing Organization Address City/State/Zipcode Phone Number [facility] [address] [address] CENTER SARS-CoV2/RT-PCR (Asymptomatic ONLY) (04/28/2020 7:10 PM CDT)Only the most recent of4 resultswithin the time period is included. SARS-COV2/RT-PCR Negative Not Detected, Negative, [facility] See external report for MEDICAL CENTER linked test SARS-COV-2 PERFORMING LAB [facility] Specimen Other Narrative Performed At Negative result for this test determines that [facility] SARS-CoV-2 RNA was not present in the [...] the Act. Fact Sheet for Healthcare Providers: https://www.Mobilitrix.Latest Medical/sites/default/files/pro duct/documents/Fact_Sheet_HC_Providers_Betsey_SA RS-CoV-2.pdf Fact Sheet for Healthcare Patients: https://www.SeroMatch/sites/default/files/pro duct/documents/Fact_Sheet_Patients_Lyra_SARS-C oV-2.pdf Performing Laboratory: [facility] [address] [facility] [place] [address] Performing Organization Address City/State/Zipcode Phone Number [address] [phone] CENTER CT chest with IV contrast (04/28/2020 7:57 AM CDT) Specimen Narrative Performed At FINAL REPORT [employer] TECHNIQUE: CT scan of the chest WITH int ravenous contrast. Dose modulation, iterative reconstruction, an d/or weight-based adjustment of the mA/kV was utilized to reduce the radiation dose to as low as reasonably achievable. INDICATION: Lung cancer, non-small cell, staging. COMPARISON: Outside facility CT from 03/31. FINDINGS: LINES/TUBES: Right chest port with tip a t the superior cavoatrial junction. LUNGS AND AIRWAYS: Moderate centrilobula r emphysema. A mass in the right upper lobe measures 5.5 x 5.2 cm. A satellite nodule in the right upper lobe measures 0.7 cm on axia l image 23. Left basilar atelectasis. PLEURA: Small left pleural effusion. HEART AND MEDIASTINUM: The visualized th yroid gland is normal. No significant mediastinal, hilar, or axill perla lymphadenopathy. Interval decrease in size of the pericardial effu celsa with a small residual pericardial effusion and a thick, enhanc ing wall. Prior transarterial aortic valve replacement. There appears to be an interatrial occlusion device. At least moderate calc ification of the left anterior descending and left circumflex coronary arteries. SOFT TISSUES AND BONES: A fat density ma ss of the right lower chest wall measures 5 cm and is consistent wit h a lipoma. Rightward convex curvature of the thoracic spine. Moderat e degenerative changes of the partially visualized cervical spine. The irregularity of a partially visualized inferior endplate and the lum bar spine is indeterminate but likely degenerative and similar to t he CT from 11/02/2019 There is scalloping of the undersurface of the right anterior second rib with likely underlying fracture. UPPER ABDOMEN: Four masses in the liver are most concerning for metastases and measure up to 4.7 cm. A m ass in the right kidney is hypoenhancing, appears invasive, and lin sures 6.4 cm. There is irregularity of the wall is superior mes enteric artery. IMPRESSION: 1.A right upper lobe lung mass measures 5.5 x 5.2 cm and has an adjacent 0.7 cm satellite nodule which i s consistent with a metastasis in the same lobe. Additional metastases are located in the liver. The right renal mass is invasive, has increased in size, and also most consistent with a metastasis f rom the lung cancer. 2.The right upper lobe lung mass likely involves the right anterior second rib with an underlying pathologic fracture. 3.The pericardial effusion has decreased in size and is now small. The enhancing pericardial wall could be due to pericardial spread of tumor, although indeterminate. 4.Small left pleural effusion with adjac ent atelectasis. 5.Moderate pulmonary emphysema. 6.Irregularity of the wall of the superi or mesenteric artery with at least moderate narrowing, most likely du e to atherosclerosis. Signed: Naomi Callahan MD Report Verified Date/Time:04/28/2020 08:44:31 [place] Location: [facility] B1 C013Y CT Body R eading Room Procedure Note Interface, External Ris In - 04/28/2020 8:47 AM CDT FINAL REPORT TECHNIQUE: CT scan of the chest WITH int ravenous contrast. Dose modulation, iterative reconstruction, an d/or weight-based adjustment of the mA/kV was utilized to reduce the radiation dose to as low as reasonably achievable. INDICATION: Lung cancer, non-small cell, staging. COMPARISON: Outside facility CT from 03/31. FINDINGS: LINES/TUBES: Right chest port with tip a t the superior cavoatrial junction. LUNGS AND AIRWAYS: Moderate centrilobula r emphysema. A mass in the right upper lobe measures 5.5 x 5.2 cm. A satellite nodule in the right upper lobe measures 0.7 cm on axia l image 23. Left basilar atelectasis. PLEURA: Small left pleural effusion. HEART AND MEDIASTINUM: The visualized th yroid gland is normal. No significant mediastinal, hilar, or axill perla lymphadenopathy. Interval decrease in size of the pericardial effu celsa with a small residual pericardial effusion and a thick, enhanc ing wall. Prior transarterial aortic valve replacement. There appears to be an interatrial occlusion device. At least moderate calc ification of the left anterior descending and left circumflex coronary arteries. SOFT TISSUES AND BONES: A fat density ma ss of the right lower chest wall measures 5 cm and is consistent wit h a lipoma. Rightward convex curvature of the thoracic spine. Moderat e degenerative changes of the partially visualized cervical spine. The irregularity of a partially visualized inferior endplate and the lum bar spine is indeterminate but likely degenerative and similar to t he CT from 11/02/2019 There is scalloping of the undersurface of the right anterior second rib with likely underlying fracture. UPPER ABDOMEN: Four masses in the liver are most concerning for metastases and measure up to 4.7 cm. A m ass in the right kidney is hypoenhancing, appears invasive, and lin sures 6.4 cm. There is irregularity of the wall is superior mes enteric artery. IMPRESSION: 1.A right upper lobe lung mass measures 5.5 x 5.2 cm and has an adjacent 0.7 cm satellite nodule which i s consistent with a metastasis in the same lobe. Additional metastases are located in the liver. The right renal mass is invasive, has increased in size, and also most consistent with a metastasis f rom the lung cancer. 2.The right upper lobe lung mass likely involves the right anterior second rib with an underlying pathologic fracture. 3.The pericardial effusion has decreased in size and is now small. The enhancing pericardial wall could be due to pericardial spread of tumor, although indeterminate. 4.Small left pleural effusion with adjac ent atelectasis. 5.Moderate pulmonary emphysema. 6.Irregularity of the wall of the superi or mesenteric artery with at least moderate narrowing, most likely du e to atherosclerosis. Signed: Naomi Callahan MD Report Verified Date/Time: 04/28/2020 0 8:44:31 [place] Location: [facility] B1 C013Y CT Body R eading Room Performing Organization Address City/State/Zipcode Phone Number [employer] RIS ARTURO's with PT and DP doppler unilateral (04/26/2020 12:55 PM CDT) Ejection Fraction [facility] ECHO HEAR TLAB [facility] CPA Specimen Impressions Performed At Right Impression [facility]ART[facility] CPACS 1. The posterior tibial and dorsalis pedis arteries are patent with normal triphasic Doppler waveforms. 2. The PT pressure is 146 mmHg with an ARTURO of 1.13 and the DP pressure is 155 mmHg with an ARTURO of 1.20, within nor mal range. 3. The great toe pressure is 71 mmHg with an abnormal TBI of 0.55. 4. The digits have adequate flow by PPG waveforms. Left Impression 1. The posterior tibial artery has no audible Doppler waveform and the dorsalis pedis artery is patent with monophasic Doppler waveforms. 2. The PT pressure is 0 mmHg with an ARTURO of 0 and the DP pressure is 59 mmHg with an ARTURO of 0.46, in the severe obstruction range. 3. The TBI is not obtained due to absenc e of flow. 4. The first, second and fourth digits have no flow and the third and fifth digits have decreased flow by PPG wavefo sudhakar. Conclusions Summary Arterial pressures and Doppler waveforms were performed bilaterally. Adequate Doppler waveforms were obtained. Doppler waveforms were triphasic on the right. The left posterior tibial artery has no audible Doppler waveform and the left dorsalis pedis artery had monophasic Doppler waveforms. The right ARTURO's were in the normal range. The left PT ARTURO was not obtained due to absence of flow and the DP ARTURO was in the severe obstruction range. The right TBI was abnormal. The left TBI was not obtained due to absence of flow. The right digits had adequate flow by PPG waveforms. The left first, second and fourth digits had no flow and the third and fifth digits had decreased flow by PPG waveforms. Signature Velocities are measured in cm/s ; Diameters are measured in cm Narrative Performed At [facility] - Lower Extremity Arterial Proced ure [facility]CHO HEART[facility] Demographics Patient NameViji VALLADARES of Study 04/26/2020 BRAVO VELASQUEZ 64 Visit [id number] Female of 1955 Referring Zhane M Room Number 1005 Physician Nai Scientific Software Engineer Ena Carter T Physician Procedure Type of Study: Extremities Arteries: Lower Extremity Arterial Procedure, ARTERIAL (ARTURO'S W/DOPPLER) ONLY. Indications for Study:S/P revascularizat ion . Patient Status:STAT. Study Location:Vascular Lab. Technical Quality:Adequate visualization . - Results were reported to:Dr. Naidu dt @ [id number]. Risk Factors History of Disease + +----+ + !Diagnosis!Date!Co mments ! + +----+ + !History/Risk Factors:!!Cancer, HTN, DM ! + +----+ + !Other! !Acid Reflux, Asthma, Heart Cath! + +----+ + Procedure Note Interface, External Ris In - 04/26/2020 5:25 PM CDT [facility] - Lower Extremity Arterial Procedure Demographics Patient Name QUIANA VALLADARES Raymond e of Study 04/26/2020 KARINA Age 64 Visit Number [id number] Gen kye Female Accession Number [id number] Raymond e of 1955 Referring Zhane Aram Alcaraz m Number [id number] Physician Nai Scientific Software Engineer Ena Suggs Int erpreting Christa Carter, T Christina bond MD Procedure Type of Study: Extremities Arteries: Lower Extremity A rterial Procedure, ARTERIAL (ARTURO'S W/DOPPLER) ONLY. Indications for Study:S/P revascularizat ion . Patient Status:STAT. Study Location:Vascular Lab. Technical Quality:Adequate visualization . - Results were reported to:Dr. Marcum @ [id number]. Risk Factors History of Disease + +----+-------- + !Diagnosis !Date!Comments ! + +----+-------- + !History/Risk Factors: ! !Cancer, HTN, DM ! + +----+-------- + !Other ! !Acid Ref lux, Asthma, Heart Cath ! + +----+-------- + Impressions Right Impression 1. The posterior tibial and dorsalis ped is arteries are patent with normal triphasic Doppler waveforms. 2. The PT pressure is 146 mmHg with an A BI of 1.13 and the DP pressure is 155 mmHg with an ARTURO of 1.20, within nor mal range. 3. The great toe pressure is 71 mmHg wit h an abnormal TBI of 0.55. 4. The digits have adequate flow by PPG waveforms. Left Impression 1. The posterior tibial artery has no au dible Doppler waveform and the dorsalis pedis artery is patent with mon ophasic Doppler waveforms. 2. The PT pressure is 0 mmHg with an ARTURO of 0 and the DP pressure is 59 mmHg with an ARTURO of 0.46, in the severe obstr uction range. 3. The TBI is not obtained due to absenc e of flow. 4. The first, second and fourth digits h ave no flow and the third and fifth digits have decreased flow by PPG wavefo sudhakar. Conclusions Summary Arterial pressures and Doppler waveform s were performed bilaterally. Adequate Doppler waveforms were obtaine d. Doppler waveforms were triphasic on the right. The left posterior tibial artery has no audible Doppler waveform and the left dorsalis pedis ar cami had monophasic Doppler waveforms. The right ARTURO's were in the normal range. The left PT ARTURO was not obtained due to absence of flow and the DP ARTURO was in the severe obstruction range. The right TBI was ab normal. The left TBI was not obtained due to absence of flow. The ri ght digits had adequate flow by PPG waveforms. The left first, second and f ourth digits had no flow and the third and fifth digits had decreased fl ow by PPG waveforms. Signature Velocities are measured in cm/s ; Diamet ers are measured in cm Performing Organization Address City/State/Zipcode Phone Number [facility] MR brain without & with IV contrast (04/26/2020 8:38 AM CDT) Specimen Narrative Performed At FINAL REPORT [employer] MRI Brain with and without contrast Clinical History: Brain mass or lesion, follow-up brain lesion on ct head, history lung ca ncer and rectal cancer Technique: MRI of the brain utilizing ax ial T1, T2, FLAIR, GRE, DWI, sagittal T1; and postgadolinium axial, s agittal, and coronal T1-weighted images. Comparisons: CT 04/25/2020, MRI 11/29/2019 Findings: There is an 8 mm ring-enhancing lesion i n the right midfrontal lobe (axial image 18), corresponding to the C T abnormality. There is a suspected 7 mm ring-enhancing lesion in the medial left cerebellum disease sagittal image 14), although it lies within an area of phase encoding artifact. There is a 2 mm enhan cing lesion in the left posterior cerebellum (axial image 6). The right midfrontal and the left position classification specialist ior cerebellar lesion demonstrated corresponding FLAIR signal abnormality. There are a few new foci of FLAIR signal abnormality in the bilateral cerebral hemispheres and possibly in the cerebell um, without corresponding abnormal enhancement. There is no evidence of acute infarct or hemorrhage. The previously acute medial left thalamic infarct is no w chronic. 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 There is generalized parenchymal volume loss without hydrocephalus or midline shift. There are no extra-axial fluid collections. The craniocervical junction is preserved. Th e major intracranial flow-voids appear patent. The calvarial marrow signal is heterogen eous with a few suspected subcentimeter foci of enhancement. IMPRESSION: At least one ring-enhancing lesion in th e supratentorium and one or two in the posterior fossa, compatible w ith metastatic disease. A few new foci of nonenhancing FLAIR sig nal abnormality in the bilateral cerebral hemispheres and possi latasha the cerebellum may represent nonenhancing metastases. Alter natively, they could represent areas of ischemic or nonischem ic demyelination. 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 Signed: Sabiha Sun MD Report Verified Date/Time:04/26/2020 08:53:19 [place] Location: [address] Room Procedure Note Interface, External Ris In - 04/26/2020 8:56 AM CDT FINAL REPORT MRI Brain with and without contrast Clinical History: Brain mass or lesion, follow-up brain lesion on ct head, history lung ca ncer and rectal cancer Technique: MRI of the brain utilizing ax ial T1, T2, FLAIR, GRE, DWI, sagittal T1; and postgadolinium axial, s agittal, and coronal T1-weighted images. Comparisons: CT 04/25/2020, MRI 11/29/2019 Findings: There is an 8 mm ring-enhancing lesion i n the right midfrontal lobe (axial image 18), corresponding to the C T abnormality. There is a suspected 7 mm ring-enhancing lesion in the medial left cerebellum disease sagittal image 14), although it lies within an area of phase encoding artifact. There is a 2 mm enhan cing lesion in the left posterior cerebellum (axial image 6). The right midfrontal and the left position classification specialist ior cerebellar lesion demonstrated corresponding FLAIR signal abnormality. There are a few new foci of FLAIR signal abnormality in the bilateral cerebral hemispheres and possibly in the cerebell um, without corresponding abnormal enhancement. There is no evidence of acute infarct or hemorrhage. The previously acute medial left thalamic infarct is no w chronic. 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 There is generalized parenchymal volume loss without hydrocephalus or midline shift. There are no extra-axial fluid collections. The craniocervical junction is preserved. Th e major intracranial flow-voids appear patent. The calvarial marrow signal is heterogen eous with a few suspected subcentimeter foci of enhancement. IMPRESSION: At least one ring-enhancing lesion in th e supratentorium and one or two in the posterior fossa, compatible w ith metastatic disease. A few new foci of nonenhancing FLAIR sig nal abnormality in the bilateral cerebral hemispheres and possi latasha the cerebellum may represent nonenhancing metastases. Alter natively, they could represent areas of ischemic or nonischem ic demyelination. 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 Signed: Sabiha Sun MD Report Verified Date/Time: 04/26/2020 0 8:53:19 [place] Location: [facility] Room Performing Organization Address City/[facility] Phone Number [facility] aPTT (04/26/2020 3:54 AM CDT)Only the most recent of29 resultswithin the time period is included. PTT 103.5 (H) 22.5 - 36.0 seconds [facility] Specimen Blood Performing Organization Address [facility] Phone Number [address] [address] CENTER Carcinoembryonic Antigen (CEA) (04/26/2020 3:54 AM CDT) CEA, SERUM 2.7 0.0 - 5.0 ng/mL [facility] Specimen Blood Narrative Performed At Senior Software Tester ID - VARSHA Chiu [facility] Performing Organization Address [facility] Phone Number [address] [address] CENTER Magnesium (04/25/2020 3:38 AM CDT)Only the most recent of17 resultswithin the time period is included. Magnesium 2.2 1.6 - 2.6 mg/dL [facility] Specimen Blood Narrative Performed At Senior Software Tester ID - GONZALO [facility] Performing Organization Address [facility] Phone Number [address] [address] CENTER 2D Echo W/Doppler(CW/PW/Color) (04/24/2020 6:50 PM CDT) Ejection Fraction [facility] Specimen Narrative Performed At Transthoracic Echocardiography Report (T TE) [facility] Demographics Patient NameQUIANA VALLADARES Date of Study04/24/2020 KARINA Gender Female Visit [id number] Race Caucasi an [id number] Number Date of 1955 ReferringGubriana fernandes MD Age 64 year(s) SonographerAbed Raoul Interpreting Donato Beth MD Physician FellowDoll ALLISON Betancourt Procedure Type of Study TTE procedure:2DECHO W DOPPLER(CW/PW/COLOR) (STAT) Indications:Suspected Pericardial condit ions. Clinical History HGB 6.6 HCT 22.9 % CANCER DM HTN PFO CORONARY ANGIO TAVR PFO CLOSER 01/11/20 Height: 65 inches Weight: 53.07 kg (117 lbs) BSA: 1.58 m^2 BMI: 19.47 kg/m^2 HR: 80 bpm BP: 124/65 mmHg Summary 1. The left ventricle is chamber size (by vol index) is normal. All of the LV segments contract normally . LVEF by Gutierrez's method of disk assessment is normal (55-60%) . Grade 1 diastolic dysfunction (impaired relaxation and low-normal LA pressure). LA size is normal (16-34 ml/m2) . 2. The right ventricular chamber size and systolic function are within normal limits. RA size is normal. Unable to estimate peak systolic PA pressure; inadequate TR velocity signal . 3. A percutaneous (TAVR) biologic AoV prosthesis is visualized and appears well-seated with normal function by Doppler. There appears to be mild to moderately thickened aortic valve leaflets. AoV resting dimensionless obstructive index (DOI) - 0.51. AoV area at rest by continuity equation is in the range of 1.69 cm2. . A trace of aortic regurgitation. 4. An atrial septal occluder device appears normally deployed. No residual shunting noted. Previous Study In comparison with the prior exam 12/2019 the following changes are noted: Mild to moderately thickened prosthetic aortic valve leaflets. Signature Findings Rhythm/BPRegular sinus rhythm during the exam. Left Ventricle The LV endocardium is adequately visualized. The le ft ventricle is chamber size (by vol ind ex) is no rmal (female - LVED vol - 29-61ml/m2). A ll of the LV segments contract normally . LVEF by Sim pson's me thod of disk assessment is normal (55-60 %) . Gr sigrid 1 diastolic dysfunction (impaired re laxation an d low-normal LA pressure). Left AtriumLA is well visualized. LA size is normal (16-34 ml/m2) . Right VentricleThe right ventricular chamber size and systolic fu nction are within normal limits. Right Atrium RA size is normal. Atrial SeptumAn atrial septal occluder device appears normally de ployed. No residual shunting noted. Aortic Valve A percutaneous (TAVR) biologic AoV prosthesis is vi sualized . A trace of aortic regurgitati on. The pr osthetic AoV appears well-seated with no rmal fu nction by Doppler. there appears to be m ild to mo derately thickened aortic valve leaflets . Ao V resting dimensionless obstructive inde x (DOI) - 0. 51. Ao V area at rest by continuity equation is in the ra nge of 1.69 cm2. Mitral Valve Normal MV structure and function by available view s an d Doppler. Tricuspid ValveNormal TV structure and function by available view s an d Doppler. Un able to estimate peak systolic PA pressu re; in adequate TR velocity signal. Pulmonic Valve Normal PV structure and function by limited views an d Doppler. AortaAortic root size (SInus of Valsalva diameter) i s in determinate (not well seen) . PericardiumA moderate circumferential pericardial effusion is pr esent . Gr eatest pericardial end-diastolic size is approx. 1. 1 cm. Pe ricardial tamponade physiology is not ev ident . IVC/SVC/PA/PV/PleuralThe IVC is <2.1cm and >50% collapsible suggestive of RAP of 3 mm Hg. Chambers/Structures Left Atrium LA Volume: 26.83 ml LA Area: 15.42 cm^2 LA Vol. Index: 17 ml/m^2 Left Ventricle LVIDd: 4.54 cm LVEDV:57.55 ml LVIDs: 3.1 cm LV Septum Diastolic: 0.96 cm LV PW Diastolic: 0.9 cm LV FS: 31.7 % LVEDV Gutierrez's:82.3 ml LVESV Gutierrez's:34.04 ml LVEDVI: 52 ml/m^2 LVEF Gutierrez's: 58.6 % LVESVI: 22 ml/m^2 LVOT Diameter: 2.05 cm Right Ventricle RVOT VTI: 14.41 cm TAPSE: 1.86 cm Doppler/Quantitative Measurements Mitral Valve MV Peak E-Wave: 0.85 m/sMV Peak A-Wave: 1.23 m/s E/A Ratio: 0. 7 Mean Velocity: 0.57 m/s Peak Gradient: 2.92 mmHg Mean Gradient: 1.71 mmHgDeceleration Time: 237.9 msec Area (continuity): 2.4 cm^2 MV VTI: 27.17 cm MV Michael. Peak: 1.28 m/s Tissue Doppler E' Septal Velocity: 0.04 m/sA' Septal Velocity: 0.08 m/s E' Lateral Velocity: 0.04 m/s A' Lateral Velocity: 0.09 m/s E/E': 21.62 Aortic Valve Peak Velocity: 1.97 m/sMean Velocity: 1.34 m/s Peak Gradient: 15.49 mmHgMean Gradient: 8.14 mmHg AV Area (continuity): 1.69 cm^2 AV VTI: 38.49 cm AV DVI: 0.51 LVOT Peak Velocity: 0.93 m/s Peak Gradient: 3.43 mmHg Mean Velocity: 0.53 m/s Mean Gradient: 1.42 mmHg LVOT Diameter: 2.05 cmLVOT VTI: 19.77 cm LVOT Area: 3.3 cm^2 LVOT SV:65.22 ml LVOT CO: 5.22 l/min LVOT CI: 3.3 l/min/m^2 RVOT RVOT VTI (PW): 16.81 cm Pulmonic Valve Peak Velocity: 1.3 m/sPeak Gradient: 6.71 mmHg Mean Velocity: 0.63 m/s Mean Gradient: 1.59 mmHg Procedure Note Interface, External Ris In - 04/25/2020 10:53 AM CDT Transthoracic Echocardiography Report (TTE) Demographics Patient Name QUIANA VALLADARES Date o f Study 04/24/2020 KARINA Gender Female Visit Number [id number] [place] [id number] Number Date of 1955 Referr ary Buitrago MD Age 64 year(s) Sonogr apher Abed Raoul Interp reting MD Devon Ibrahim Fellow ALLISON White Procedure Type of Study TTE procedure:2DECHO W DOPPLE R(CW/PW/COLOR) (STAT) Indications:Suspected Pericardial condit ions. Clinical History HGB 6.6 HCT 22.9 % CANCER DM HTN PFO CORONARY ANGIO TAVR PFO CLOSER 01/11/20 Height: 65 inches Weight: 53.07 kg (117 lbs) BSA: 1.58 m^2 BMI: 19.47 kg/m^2 HR: 80 bpm BP: 124/65 mmHg Summary 1. The left ventricle is chamber size ( by vol index) is normal. All of the LV segments contract normally . LVEF by Gutierrez's method of disk assessment is normal (55-60%) . Grade 1 diastolic dysfunction (impaired relaxation and low-normal LA pressure). LA size is normal (16-34 ml/m2) . 2. The right ventricular chamber size a nd systolic function are within normal limits. RA size is normal. Unabl e to estimate peak systolic PA pressure; inadequate TR velocity signal . 3. A percutaneous (TAVR) biologic AoV p rosthesis is visualized and appears well-seated with normal function by Dop pler. There appears to be mild to moderately thickened aortic valve leafl ets. AoV resting dimensionless obstructive index (DOI) - 0.51. AoV are a at rest by continuity equation is in the range of 1.69 cm2. . A trace of aortic regurgitation. 4. An atrial septal occluder device anni ears normally deployed. No residual shunting noted. Previous Study In comparison with the prior exam 0 the following changes are noted: Mild to moderately thickened prosthetic aortic valve leaflets. Signature Findings Rhythm/BP Regular sinus rh ythm during the exam. Left Ventricle The LV endocardi um is adequately visualized. The left ventricle i s chamber size (by vol index) is normal (female - LVED vol - 29-61ml/m2). All of the LV segments cont ract normally . LVEF by Gutierrez's method of disk a ssessment is normal (55-60%) . Grade 1 diastoli c dysfunction (impaired relaxation and low-normal L A pressure). Left Atrium LA is well visua lized. LA size is sherie l (16-34 ml/m2) . Right Ventricle The right ventri cular chamber size and systolic function are wit hin normal limits. Right Atrium RA size is sherie l. Atrial Septum An atrial septal occluder device appears normally deployed. No res idual shunting noted. Aortic Valve A percutaneous ( TAVR) biologic AoV prosthesis is visualized . A t race of aortic regurgitation. The prosthetic AoV a ppears well-seated with normal function by Dopp ler. there appears to be mild to moderately thick ened aortic valve leaflets. AoV resting dime nsionless obstructive index (DOI) - 0.51. AoV area at rest by continuity equation is in the range of 1.69 cm 2. Mitral Valve Normal MV struct ure and function by available views and Doppler. Tricuspid Valve Normal TV struct ure and function by available views and Doppler. Unable to estima te peak systolic PA pressure; inadequate TR ve locity signal. Pulmonic Valve Normal PV struct ure and function by limited views and Doppler. Aorta Aortic root size (SInus of Valsalva diameter) is indeterminate (n ot well seen) . Pericardium A moderate circu mferential pericardial effusion is present . Greatest pericar dial end-diastolic size is approx. 1.1 cm. Pericardial tamp onade physiology is not evident . IVC/SVC/PA/PV/Pleural The IVC is <2.1c m and >50% collapsible suggestive of RAP of 3 mm H g. Chambers/Structures Left Atrium LA Volume: 26.83 ml LA Area: 15.42 cm^2 LA Vol. Index: 17 ml/m^2 Left Ventricle LVIDd: 4.54 cm LVEDV:57.55 ml LVIDs: 3.1 cm LV Septum Diastolic: 0.96 cm LV PW Diastolic: 0.9 cm LV FS: 31.7 % LVEDV Gutierrez's:82.3 ml LVESV Gutierrez's:34.04 ml LVEDVI: 52 ml/m^2 LVEF Gutierrez's: 58.6 % LVESVI: 22 ml/m^2 LVOT Diameter: 2.05 cm Right Ventricle RVOT VTI: 14.41 cm TAPSE: 1.86 cm Doppler/Quantitative Measurements Mitral Valve MV Peak E-Wave: 0.85 m/s M V Peak A-Wave: 1.23 m/s E /A Ratio: 0.7 Mean Velocity: 0.57 m/s P eak Gradient: 2.92 mmHg Mean Gradient: 1.71 mmHg D eceleration Time: 237.9 msec A mandy (continuity): 2.4 cm^2 M V VTI: 27.17 cm MV Michael. Peak: 1.28 m/s Tissue Doppler E' Septal Velocity: 0.04 m/s A ' Septal Velocity: 0.08 m/s E' Lateral Velocity: 0.04 m/s A ' Lateral Velocity: 0.09 m/s E /E': 21.62 Aortic Valve Peak Velocity: 1.97 m/s Mean Velocity: 1.34 m/s Peak Gradient: 15.49 mmHg Mean Gradient: 8.14 mmHg AV Area (continuity): 1.69 cm^2 AV VTI: 38.49 cm AV DVI: 0.51 LVOT Peak Velocity: 0.93 m/s Pea k Gradient: 3.43 mmHg Mean Velocity: 0.53 m/s Lin n Gradient: 1.42 mmHg LVOT Diameter: 2.05 cm LVO T VTI: 19.77 cm LVOT Area: 3.3 cm^2 LVO T SV:65.22 ml LVOT CO: 5.22 l/min LVO T CI: 3.3 l/min/m^2 RVOT RVOT VTI (PW): 16.81 cm Pulmonic Valve Peak Velocity: 1.3 m/s Pea k Gradient: 6.71 mmHg Mean Velocity: 0.63 m/s Lin n Gradient: 1.59 mmHg Performing Organization Address City/[facility] Phone Number [facility] Hemoglobin and hematocrit (04/24/2020 6:03 PM CDT)Only the most recent of2 resultswithin the time period is included. Hemoglobin 7.8 (L) 11.2 - 15.7 GM/DL [facility] Hematocrit 26.0 (L) 34.1 - 44.9 % [facility] Specimen Blood Narrative Performed At Senior Software Tester ID - [id number] [facility] Performing Organization Address [facility] Phone Number [address] [address] CENTER Blood gas, arterial (04/24/2020 5:27 PM CDT)Only the most recent of3 results within the time period is included. pH, Arterial 7.45 7.35 - 7.45 [facility] pCO2, Arterial 42 35 - 45 mmHg [facility] pO2, Arterial 87 80 - 90 mmHg [facility] O2 Sat, Arterial 97.2 (H) 96.0 - 97.0 % [facility] HCO3, Arterial 29 21 - 29 mmol/L [facility] Base Excess, Arterial 4.0 (H) -2.0 - 3.0 mmol/L [facility] Patient Temperature 36.0 C [facility] FIO2 28.0 % [facility] Specimen Blood, Arterial Performing Organization Address City/[facility] Phone Number [address] [phone] CENTER Prepare RBC (04/24/2020 5:14 PM CDT)Only the most recent of3 resultswithin the time period is included. CROSSMATCH COMPATIBLE SAFETRACE TX Unit ABO O Pos SAFETRACE TX UNIT NUMBER [id number] SAFETRACE TX Status RETURNED FROM ISSUE SAFETRACE TX Blood Bank Product RED BLOOD CELLS SAFETRACE TX PRODUCT CODE [id number] SAFETRACE TX CROSSMATCH COMPATIBLE SAFETRACE TX Unit ABO O Pos SAFETRACE TX UNIT NUMBER [id number] SAFETRACE TX Status RETURNED FROM ISSUE SAFETRACE TX Blood Bank Product RED BLOOD CELLS SAFETRACE TX PRODUCT CODE [id number] SAFETRACE TX Performing Organization Address [facility] Phone Number SAFETRACE TX POC ACTIVATED CLOTTING TIME (04/24/2020 3:37 PM CDT)Only the most recent of5 resultswithin the time period is included. Activated Clotting Time 246Comment: : 74-137 sec [facility] seconds, Baseline: TESTED [facility] AT [address], [address]: Senior Software Tester/Theatre Arts Professor ID = [id number] for JAYASHREEGREGORIO JERAMY Specimen Blood Performing Organization Address City/[facility]/Zipcode Phone Number [address] [phone] CENTER Potassium-Stat Lab (04/24/2020 2:56 PM CDT)Only the most recent of2 results within the time period is included. Potassium 4.3 3.6 - 5.5 meq/L [facility] Specimen Blood, Arterial Performing Organization Address City/State/[facility] Phone Number [address] [address] [place] Sodium Na-Stat Lab (04/24/2020 2:56 PM CDT)Only the most recent of2 results within the time period is included. Sodium 134 (L) 136 - 145 meq/L [facility] Specimen Blood, Arterial Performing Organization Address [facility] Phone Number [address] [address] [place] Glucose-Stat Lab (04/24/2020 2:56 PM CDT)Only the most recent of2 resultswithin the time period is included. Glucose 123 (H) 70 - 110 mg/dL [facility] Specimen Blood, Arterial Performing Organization Address [facility] Phone Number [address] [address] [place] HGB/HCT (H&H)-Stat Lab (04/24/2020 2:56 PM CDT)Only the most recent of2 resultswithin the time period is included. Hemoglobin 8.8 (L) 12.0 - 15.0 g/dL [facility] Hematocrit 26.0 (L) 36.0 - 45.0 % [facility] Specimen Blood, Arterial Performing Organization Address [facility] Phone Number [address] [address] [place] Calcium, Ionized (04/24/2020 2:56 PM CDT)Only the most recent of2 resultswithin the time period is included. Calcium, Ion 1.08 (L) 1.12 - 1.27 mmol/L [facility] pH, Blood 7.40 [facility] Specimen Blood Performing Organization Address [facility] Phone Number [place] [address] [place] [address] CENTER XR chest 1 view portable / bedside (04/24/2020 1:09 PM CDT)Only the most recent of4 resultswithin the time period is included. Specimen Narrative Performed At FINAL REPORT GE RIS RAD, CHEST, 1 VIEW, NON DEPT INDICATION: lung mass COMPARISON: January 12, 2020 FINDINGS: Portable frontal view of the c hest. IMPRESSION: Support Lines: Port-A-Cath tip overlies the atriocaval junction Lungs and pleura: Masses present within the right upper lobe. New small left effusion and adjacent atelect asis No pneumothorax. Heart and mediastinum: Stable contours. Additional findings: None. Signed: Arlyn Persaud MD Report Verified Date/Time:04/24/2020 13:18:46 [place] [facility] [place] Room Procedure Note Interface, External Ris In - 04/24/2020 1:21 PM CDT FINAL REPORT RAD, CHEST, 1 VIEW, NON DEPT INDICATION: lung mass COMPARISON: January 12, 2020 FINDINGS: Portable frontal view of the c hest. IMPRESSION: Support Lines: Port-A-Cath tip overlies the atriocaval junction Lungs and pleura: Masses present within the right upper lobe. New small left effusion and adjacent atelect asis No pneumothorax. Heart and mediastinum: Stable contours. Additional findings: None. Signed: Arlyn Persaud MD Report Verified Date/Time: 04/24/2020 1 3:18:46 [place] Location: [employer] [place] Room Performing Organization Address City/State/Zipcode Phone Number [facility] Transfuse Leuko-Red RBC (04/24/2020 12:02 PM CDT)Only the most recent of2 resultswithin the time period is included.Potassium (04/24/2020 12:01 PM CDT) Potassium 4.1 3.5 - 5.1 meq/L [facility] Specimen Blood Narrative Performed At Senior Software Tester ID - JESSICA C [facility] Performing Organization Address City/State/Zipcode Phone Number [facility] [address] [place] [address] brain without & with IV contrast (04/24/2020 11:10 AM CDT) Specimen Narrative Performed At FINAL REPORT [facility] RIS CT Head with and without contrast CLINICAL HISTORY: Neoplasm: head, metast atic TECHNIQUE: Contiguous axial images throu gh the head with and without contrast. This exam was performed accord ing to the departmental dose optimization program which includes auto mated exposure control, adjustment of the mA and/or kV according to the patient size, and/or use of an iterative reconstruction techn ique. COMPARISON: None FINDINGS: There is a faint 3 mm focus of enhanceme nt in the right midfrontal lobe. Subtle 3 mm enhancement may also b e seen in the left mid frontal lobe. There is no CT evidence of acute infarct or acute hemorrhage. A chronic left thalamic infarct is again s een. A small chronic right cerebellar infarct is again seen. There is periventricular and subcortical white matter hypodensity which is nonspecific but compatible with chronic microvascular ischemic change. There are atherosclerot ic calcifications of the intracranial circulation. There is gener alized parenchymal volume loss without hydrocephalus, midline shif t, or apparent mass effect. There are no extra-axial fluid collectio ns. The skull is intact. IMPRESSION: Suspected small foci of enhancement in t he bilateral frontal lobes. Given the history, metastatic disease is suspected. However, gadolinium enhanced MRI brain is recomme nded for more definitive evaluation. Chronic left thalamic and right cerebell ar infarcts. Signed: Sabiha Sun MD Report Verified Date/Time:04/24/2020 11:22:40 Reading Location: [address] Procedure Note Interface, External Ris In - 04/24/2020 11:24 AM CDT FINAL REPORT CT Head with and without contrast CLINICAL HISTORY: Neoplasm: head, metast atic TECHNIQUE: Contiguous axial images throu gh the head with and without contrast. This exam was performed accord ing to the departmental dose optimization program which includes auto mated exposure control, adjustment of the mA and/or kV according to the patient size, and/or use of an iterative reconstruction techn ique. COMPARISON: None FINDINGS: There is a faint 3 mm focus of enhanceme nt in the right midfrontal lobe. Subtle 3 mm enhancement may also b e seen in the left mid frontal lobe. There is no CT evidence of acute infarct or acute hemorrhage. A chronic left thalamic infarct is again s een. A small chronic right cerebellar infarct is again seen. There is periventricular and subcortical white matter hypodensity which is nonspecific but compatible with chronic microvascular ischemic change. There are atherosclerot ic calcifications of the intracranial circulation. There is gener alized parenchymal volume loss without hydrocephalus, midline shif t, or apparent mass effect. There are no extra-axial fluid collectio ns. The skull is intact. IMPRESSION: Suspected small foci of enhancement in t he bilateral frontal lobes. Given the history, metastatic disease is suspected. However, gadolinium enhanced MRI brain is recomme nded for more definitive evaluation. Chronic left thalamic and right cerebell ar infarcts. Signed: Sabiha Sun MD Report Verified Date/Time: 04/24/2020 1 1:22:40 Reading Location: [facility] B1 [id number] [facility] Room Performing Organization Address City/State/Zipcode Phone Number [employer] CTA AAA and Runoff (04/24/2020 11:10 AM CDT) Specimen Narrative Performed At Addendum Begins [facility] RIS REPORT STATUS:A ADDENDUM: Study reviewed by radiology. Agree with the nonvascular findings as described below. Multiple hepatic and right renal hypoden se masses are consistent with neoplastic processes. Signed: Daniel Carcamo MD Report Verified Date/Time:04/24/2020 14:17:51 Reading Location: [facility] Mammo Reading Ro om Addendum Ends FINAL REPORT CT angiography of the abdominal aorta an d runoff, 24-Apr-20 INDICATION: This is a 64 year old female with ischaemic leg presents for assessment. 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 Patient has left lower limb ischemia. TECHNIQUE: Spiral acquisition before and during intravenous contrast administration using a Siemens multidete ctor CT scanner. Images were obtained before and during the dynamic p assage of intravenous contrast material.Multi-planar 3-D v olume-rendering reconstruction was performed using an independent works tation interactively by the interpreting physician as well as the 3- D specialist for optimal visualisation of the abdominal aorta, pe lvic arteries, and its proximal branches. Please refer to the [...] as low as reasonably achievable. FINDINGS: VASCULAR: The TAVR is partially visualised incompl ete assessed in the precontrast series. The PFO closure miguel ce is partially visualised and incompletely assessed. Circumferenti al pericardial effusion identified, [id number] in nature. The Hounsfield unit is greater than 10 in the precontrast serie s suggesting it is not simple in nature. Correlate clinically. It is d ifficult to be certain if there is any pericardial enhancement as patient already has contrast exposure. The distal descending thoracic aorta is unremarkable. The abdominal aorta has scattered calcific and noncalc ific atherosclerosis identified. No ectasia or aneurysmal dil ation is seen. The abdominal aorta is normal in course, calibre and contour.There is no evidence of acute aortic pathology , specifically, there is no dissection, intramural hematoma, or cont ained rupture. Quantitative dimensions of the abdominal aorta are as follows: 1.9 cm at the mesenteric segment; 1.8 cm at the renal segment,; and 1.8 cm at the aortic bifurcation. Single left and two right renal arteries are seen that are widely patent. The accessory right renal artery is tiny in calibre. The coeliac axis widely patent. The SMA is w idely patent proximally, however, at image 91, dilation is identi fied with maximum diameter estimated to be approximately 13 mm, wit h substantial intraluminal thrombus identified the patent lumen has a minimum luminal diameter of 1 to 2 mm. The length of the dilation is approximately 2.5 cm. Thereafter, and not well localized dilat ion is seen, at image 100, of up to 7 mm in diameter. Remainder of the the SMA is seen to be patent. Please see snapshot for details. The RE is patent. In the left, whilst the ostium of the le ft common iliac artery is patent thereafter majority of the left c ommon iliac, and the left external iliac artery are not filled by contrast indicating occlusion. Acuity cannot be commented up on. Correlate regarding with clinical history. The reference diameter of the left external iliac artery is approximately 9 mm at image 19 1, without contrast enhancement, and the left common iliac a rtery at image 171 is estimated to be approximately 11 to 12 m m. The length of the occlusion is approximately 10 to 11 cm. The left common femoral artery is patent . The left SFA is patent though is a small calibre vessel when compared to the right SFA, with average diameter of about 2 to 2.5 mm. The left profunda system is unremarkable. The proximal half of the left popliteal artery is patent. However, remainder of the the popliteal artery at the level of the left knee joint is not filled by contrast indicati ng occlusion. Again acuity is difficult to comment upon. Correlate wit h clinical history. In the left lower extremity, the left an terior tibial artery seen to be patent but a small calibre vessel and the dorsalis pedis artery is well seen. Enhancement of the tibioperon eal trunk is suboptimal. Enhancement of the peroneal artery is hill boptimal. Faint enhancement of the left posterior tibial artery is i dentified in the distal half of the artery as well as the plantar arc h is seen distally. In the right, the right common iliac, an d the right external iliac artery are seen to be patent with nonobs tructive calcific lesion seen in the right common iliac level. The rig ht common femoral artery is unremarkable. The right SFA is widely patent. The righ t profunda system is unremarkable. The right popliteal arteri es unremarkable. In the right lower extremity, the right anterior tibial artery is widely patent and the dorsalis pedis art clive is well seen. The right tibioperoneal trunk is patent though the right peroneal artery has very limited enhancement identified gentry cating significant diffuse disease. The right posterior tibial jim ry is widely patent and the plantar arch is seen distally. NONVASCULAR Trace right basal pleural effusion is id entified. Left pleural effusion is identified in the available images. In the abdomen, the liver and spleen has no acute abnormality is identified. However, hypodensity is iden tified in the right hepatic lobe, at image 83 measuring 4.3 x 3.5 cm in diameter. This is incompletely characterise. In addition, three smaller hypodensities also identified in the liver. See annota tion in PACS for details. In the presence of significant past medical history, the concern is of possible metastatic lesion. The gallbladder appears unremarkable. Th e adrenal glands are not enlarged. The pancreas have no gross abn ormality seen. The left kidney is unremarkable. No hydr onephrosis or perirenal fluid collection is seen. There is a hypodensi ty identified involving the majority of the lower half of the the ri ght kidney, and there is some contrast enhancement identified. Note, e maria del rosario in the precontrast series, contrast is present in the bilat eral renal pelvis indicating patient had recent contrast exposure. Ti ssue characterisation is limited in this dedicated arterial exami nation. Again, concern for potential malignancy in the right kidney . An addendum will be dictated thereafter, if needed, if dedic ated cross sectional imaging is required. Bowel is not well assessed by CT angiogr aphy as enteric contrast is not given. No obvious bowel dilation is identified. No free air or free fluid is identified abdomen and pel vis. The bladder is full of contrast. The [place] is not identified. No abnormal adnexal mass is seen. No free a ir free fluid seen in the abdomen and pelvis. No significant retro peritoneal adenopathy is identified. In the bony windows, no acute bony patho logy is seen. Some degenerative changes is noted especially at L2-3 and L4 level. Mild scoliosis is identified. In the availabl e images, no obvious lytic or blastic lesion is seen though an addendu m will be dictated regarding the L3 and L4 level, if needed. In addit ion, addendum will be dictated regarding the finding in the ri ght sacral level at image 184. CONCLUSIONS: 1.Mild to moderate circumferential p leural effusion and by Hounsfield unit measurement, the effusio n appears not to be simple atelectasis is greater than 20. Correlat e clinically. 2. Abdominal aorta is normal in course a nd calibre with some atherosclerosis identified. No hanging a therosclerosis is appreciated. There is no evidence of acu te aortic pathology, specifically, there is no dissection, in tramural hematoma, or contained rupture. 3.The pertinent finding in the pelvi s is the tortuosity of the left common iliac artery and the left externa l iliac artery is occluded, length of 10 to 11 cm. Acuity cannot be commented upon. The left common femoral artery and the l eft SFA and the proximal half of the left popliteal artery is patent. The left SFA is somewhat small in calibre when compared to the co rresponding right SFA. The distal half of the left popliteal ar cami is not filled by contrast. At least one vessel runoff in the left l ower extremity. 4. Refer to the above regarding the stat us of the right peripheral arteries. 5. Other findings as described above. Bibasal pleural effusion left greater th an right. A 4.3 x 3.5 cm mass is identified in the right hepatic lobe incompletely characterise. In addition, there is also hypodensity identified in the lower half of the righ t kidney that measure 5.7 x 6.6 x 7.7 cm. Taking account of patient' s past medical history, concern is of potential metastatic lesio ns. However, addendum will be dictated thereafter if dedicated cross-s ectional imaging could be performed for further tissue characteris ation, if the above has not been investigated by outside facility. 6.An addendum will be dictated regar ding the non-vascular findings by the Slitter [employer] Slotter Operator Radiologist. Pertinent vascular findings were relayed to first year resident of the vascular surgery service at 11:50 AM . Signed: Ricardo Broussard MD Report Verified Date/Time:04/24/2020 11:55:01 Reading Location: [facility] B1 P027 CT Reading Room Procedure Note Interface, External Ris In - 04/24/2020 2:20 PM CDT Addendum Begins REPORT STATUS:A ADDENDUM: Study reviewed by radiology. Agree with the nonvascular findings as described below. Multiple hepatic and right renal hypoden se masses are consistent with neoplastic processes. Signed: Daniel Carcamo MD Report Verified Date/Time: 04/24/2020 1 4:17:51 Reading Location: [facility] Mammo Reading Ro om Addendum Ends FINAL REPORT CT angiography of the abdominal aorta an trevon runoff, 24-Apr-20 INDICATION: This is a 64 year old female with ischaemic leg presents for assessment. 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 Patient has left lower limb ischemia. TECHNIQUE: Spiral acquisition before and during intravenous contrast administration using a Siemens multidete ctor CT scanner. Images were obtained before and during the dynamic p assage of intravenous contrast material. Multi-planar 3-D vol ume-rendering reconstruction was performed using an independent works tation interactively by the interpreting physician as well as the 3- D specialist for optimal visualisation of the abdominal aorta, pe lvic arteries, and its proximal branches. Please refer to the [...] as low as reasonably achievable. FINDINGS: VASCULAR: The TAVR is partially visualised incompl ete assessed in the precontrast series. The PFO closure miguel ce is partially visualised and incompletely assessed. Circumferenti al pericardial effusion identified, [id number] in nature. The Hounsfield unit is greater than 10 in the precontrast serie s suggesting it is not simple in nature. Correlate clinically. It is d ifficult to be certain if there is any pericardial enhancement as patient already has contrast exposure. The distal descending thoracic aorta is unremarkable. The abdominal aorta has scattered calcific and noncalc ific atherosclerosis identified. No ectasia or aneurysmal dil ation is seen. The abdominal aorta is normal in course, calibre and contour. There is no evidence of acute aortic pathology , specifically, there is no dissection, intramural hematoma, or cont ained rupture. Quantitative dimensions of the abdominal aorta are as follows: 1.9 cm at the mesenteric segment; 1.8 cm at the renal segment,; and 1.8 cm at the aortic bifurcation. Single left and two right renal arteries are seen that are widely patent. The accessory right renal artery is tiny in calibre. The coeliac axis widely patent. The SMA is w idely patent proximally, however, at image 91, dilation is identi fied with maximum diameter estimated to be approximately 13 mm, wit h substantial intraluminal thrombus identified the patent lumen has a minimum luminal diameter of 1 to 2 mm. The length of the dilation is approximately 2.5 cm. Thereafter, and not well localized dilat ion is seen, at image 100, of up to 7 mm in diameter. Remainder of the the SMA is seen to be patent. Please see snapshot for details. The RE is patent. In the left, whilst the ostium of the le ft common iliac artery is patent thereafter majority of the left c ommon iliac, and the left external iliac artery are not filled by contrast indicating occlusion. Acuity cannot be commented up on. Correlate regarding with clinical history. The reference diameter of the left external iliac artery is approximately 9 mm at image 19 1, without contrast enhancement, and the left common iliac a rtery at image 171 is estimated to be approximately 11 to 12 m m. The length of the occlusion is approximately 10 to 11 cm. The left common femoral artery is patent . The left SFA is patent though is a small calibre vessel when compared to the right SFA, with average diameter of about 2 to 2.5 mm. The left profunda system is unremarkable. The proximal half of the left popliteal artery is patent. However, remainder of the the popliteal artery at the level of the left knee joint is not filled by contrast indicati ng occlusion. Again acuity is difficult to comment upon. Correlate wit h clinical history. In the left lower extremity, the left an terior tibial artery seen to be patent but a small calibre vessel and the dorsalis pedis artery is well seen. Enhancement of the tibioperon eal trunk is suboptimal. Enhancement of the peroneal artery is hill boptimal. Faint enhancement of the left posterior tibial artery is i dentified in the distal half of the artery as well as the plantar arc h is seen distally. In the right, the right common iliac, an d the right external iliac artery are seen to be patent with nonobs tructive calcific lesion seen in the right common iliac level. The rig ht common femoral artery is unremarkable. The right SFA is widely patent. The righ t profunda system is unremarkable. The right popliteal arteri es unremarkable. In the right lower extremity, the right anterior tibial artery is widely patent and the dorsalis pedis art clive is well seen. The right tibioperoneal trunk is patent though the right peroneal artery has very limited enhancement identified gentry cating significant diffuse disease. The right posterior tibial jim ry is widely patent and the plantar arch is seen distally. NONVASCULAR Trace right basal pleural effusion is id entified. Left pleural effusion is identified in the available images. In the abdomen, the liver and spleen has no acute abnormality is identified. However, hypodensity is iden tified in the right hepatic lobe, at image 83 measuring 4.3 x 3.5 cm in diameter. This is incompletely characterise. In addition, three smaller hypodensities also identified in the liver. See annota tion in PACS for details. In the presence of significant past medical history, the concern is of possible metastatic lesion. The gallbladder appears unremarkable. Th e adrenal glands are not enlarged. The pancreas have no gross abn ormality seen. The left kidney is unremarkable. No hydr onephrosis or perirenal fluid collection is seen. There is a hypodensi ty identified involving the majority of the lower half of the the ri ght kidney, and there is some contrast enhancement identified. Note, e mar[place] rosario in the precontrast series, contrast is present in the bilat eral renal pelvis indicating patient had recent contrast exposure. Ti ssue characterisation is limited in this dedicated arterial exami nation. Again, concern for potential malignancy in the right kidney . An addendum will be dictated thereafter, if needed, if dedic ated cross sectional imaging is required. Bowel is not well assessed by CT angiogr aphy as enteric contrast is not given. No obvious bowel dilation is identified. No free air or free fluid is identified abdomen and pel vis. The bladder is full of contrast. The [place] is not identified. No abnormal adnexal mass is seen. No free a ir free fluid seen in the abdomen and pelvis. No significant retro peritoneal adenopathy is identified. In the bony windows, no acute bony patho logy is seen. Some degenerative changes is noted especially at L2-3 and L4 level. Mild scoliosis is identified. In the availabl e images, no obvious lytic or blastic lesion is seen though an addendu m will be dictated regarding the L3 and L4 level, if needed. In addit ion, addendum will be dictated regarding the finding in the ri ght sacral level at image 184. CONCLUSIONS: 1. Mild to moderate circumferential ple ural effusion and by Hounsfield unit measurement, the effusio n appears not to be simple atelectasis is greater than 20. Correlat e clinically. 2. Abdominal aorta is normal in course a nd calibre with some atherosclerosis identified. No hanging a therosclerosis is appreciated. There is no evidence of acu te aortic pathology, specifically, there is no dissection, in tramural hematoma, or contained rupture. 3. The pertinent finding in the pelvis is the tortuosity of the left common iliac artery and the left externa l iliac artery is occluded, length of 10 to 11 cm. Acuity cannot be commented upon. The left common femoral artery and the l eft SFA and the proximal half of the left popliteal artery is patent. The left SFA is somewhat small in calibre when compared to the co rresponding right SFA. The distal half of the left popliteal ar cami is not filled by contrast. At least one vessel runoff in the left l ower extremity. 4. Refer to the above regarding the stat us of the right peripheral arteries. 5. Other findings as described above. Bibasal pleural effusion left greater th an right. A 4.3 x 3.5 cm mass is identified in the right hepatic lobe incompletely characterise. In addition, there is also hypodensity identified in the lower half of the righ t kidney that measure 5.7 x 6.6 x 7.7 cm. Taking account of patient' s past medical history, concern is of potential metastatic lesio ns. However, addendum will be dictated thereafter if dedicated cross-s ectional imaging could be performed for further tissue characteris ation, if the above has not been investigated by outside facility. 6. An addendum will be dictated regardi ng the non-vascular findings by the Slitter Creaser Slotter Operator Radiologist. Pertinent vascular findings were relayed to first year resident of the vascular surgery service at 11:50 AM . Signed: Ricardo Broussard MD Report Verified Date/Time: 04/24/2020 1 1:55:01 Reading Location: [place] [address] CT Reading Room Performing Organization Address City/State/Zipcode Phone Number [employer] [facility] Arterial doppler leg, left (04/24/2020 7:54 AM CDT) [facility] ECHO HEAR TLAB [facility] Specimen Impressions Performed At [facility] ECHO HEARTLAB [facility] Left Impression 1. The common femoral, profunda femoral, superficial femoral and proximal popliteal arteries are patent with low velocity monophasic Doppler waveforms. 2. The mid to distal popliteal, posterior tibial and peroneal arteries are occluded. 3. The anterior tibial artery is patent with low velocity monophasic Doppler waveforms. Conclusions Summary Arterial duplex was performed on the left lower extremity. The arteries were small in caliber. There was monophasic Doppler waveforms in the common femoral artery, suggestive of a more proximal obstruction. The profunda femoral, superficial femoral and proximal popliteal arteries were patent. The mid to distal popliteal, posterior tibial and peroneal arteries were occluded. The anterior tibial artery was patent. Signature Velocities are measured in cm/s ; Diameters are measured in cm LE Duplex Measurements Right Left + + + + + + + + + + !Location ! !PSV !EDV !Waveform! !PSV!EDV !Waveform ! + + + + + + + + + + !Mid Common Femoral ! !31.5 !! ! + + +-- + + + !Prox PFA ! !38.3 !! ! + + +-- + + + !Prox SFA ! !21.1 !! ! + + +-- + + + !Mid SFA ! !38.8 !! ! + + +-- + + + !Dist SFA ! !21.6 !! ! + + +-- + + + !Prox Popliteal ! !13.8 !! ! + + +-- + + + !Mid Popliteal ! !0 ! ! ! + + +-- + + + !Dist Popliteal ! !0 ! ! ! + + +-- + + + !Prox FRUIT OR NUT FARMWORKER ! !0 ! ! ! + + +-- + + + !Mid FRUIT OR NUT FARMWORKER ! !0 ! ! ! + + +-- + + + !Dist FRUIT OR NUT FARMWORKER ! !0 ! ! ! + + +-- + + + !Prox LUL ! !14.4 !! ! + + +-- + + + !Mid LUL ! !12.1 !! ! + + +-- + + + !Dist LUL ! !13.2 !! ! + + +-- + + + !Prox Peroneal ! !0 ! ! ! + + +-- + + + !Mid Peroneal ! !0 ! ! ! + + +-- + + + !Dist Peroneal ! !0 ! ! ! + + +-- + + + Narrative Performed At LAB - Lower Extremity Arterial Duplex [facility] Demographics Patient NameQUIANA VALLADARES Date of Study04/24/2020 BRAVO VELASQUEZ Age64 Visit [id number] Gender Female Date of Birth1955 Referring Minna Rowan Number 1005 Physician Shama Scientific Software Engineer Ena Suggs T Interpreting Christa Carter , Physician Procedure Type of Study: Extremities Arteries: Lower Extremities Arterial Duplex, ARTERIAL DOPPLER LEG, LEFT. Indications for Study:Critical limb isch emia. Patient Status:STAT. Study Location:Portable. Technical Quality:Adequate visualization . - Results were reported to:Dr. Hunter @ 4709. Risk Factors History of Disease + +----+ + !Diagnosis!Date!Co mments ! + +----+ + !History/Risk Factors:!!Cancer, HTN, DM ! + +----+ + !Other! !Acid Reflux, Asthma, Heart Cath! + +----+ + Procedure Note Interface, External Ris In - 04/26/2020 7:34 AM CDT PV LAB - Lower Extremity Arterial Duplex Demographics Patient Name QUIANA VALLADARES te of Study 04/24/2020 KARINA Ag e 64 Visit Number [id number] Ge nder Female Accession Number [id number] Da te of 1955 Referring Minna Coffey om Number 1005 Physician Shama Scientific Software Engineer Ena Suggs T In terpreting Christa Carter, Ph ysician Procedure Type of Study: Extremities Arteries: Lower Extremities Arterial Duplex, ARTERIAL DOPPLER LEG, LEFT. Indications for Study:Critical limb isch emia. Patient Status:STAT. Study Location:Portable. Technical Quality:Adequate visualization . - Results were reported to:Dr. Yu r @ 1408. Risk Factors History of Disease + +----+-------- + !Diagnosis !Date!Comments ! + +----+-------- + !History/Risk Factors: ! !Cancer, HTN, DM ! + +----+-------- + !Other ! !Acid Ref lux, Asthma, Heart Cath ! + +----+-------- + Impressions Left Impression 1. The common femoral, profunda femoral, superficial femoral and proximal popliteal arteries are patent with low v elocity monophasic Doppler waveforms. 2. The mid to distal popliteal, posterio r tibial and peroneal arteries are occluded. 3. The anterior tibial artery is patent with low velocity monophasic Doppler waveforms. Conclusions Summary Arterial duplex was performed on the [facility] lower extremity. The arteries were small in caliber. There was monoph asic Doppler waveforms in the common femoral artery, suggestive of a more proximal obstruction. The profunda femoral, superficial femoral a nd proximal popliteal arteries were patent. The mid to distal popliteal, po sterior tibial and peroneal arteries were occluded. The anterior ti bial artery was patent. Signature Velocities are measured in cm/s ; Diamet ers are measured in cm LE Duplex Measurements Right Left + + + + + + + + + + !Location ! !PSV !EDV !Waveform ! !PSV !EDV !Waveform ! + + + + + + + + + + !Mid Common Femoral ! !31.5 ! ! ! + + + + + + !Prox HERVE ! !38.3 ! ! ! + + + + + + !Prox LIDIA ! !21.1 ! ! ! + + + + + + !Mid SFA ! !38.8 ! ! ! + + + + + + !Dist SFA ! !21.6 ! ! ! + + + + + + !Prox Popliteal ! !13.8 ! ! ! + + + + + + !Mid Popliteal ! !0 ! ! ! + + + + + + !Dist Popliteal ! !0 ! ! ! + + + + + + !Prox FRUIT OR NUT FARMWORKER ! !0 ! ! ! + + + + + + !Mid FRUIT OR NUT FARMWORKER ! !0 ! ! ! + + + + + + !Dist FRUIT OR NUT FARMWORKER ! !0 ! ! ! + + + + + + !Prox LUL ! !14.4 ! ! ! + + + + + + !Mid LUL ! !12.1 ! ! ! + + + + + + !Dist LUL ! !13.2 ! ! ! + + + + + + !Prox Peroneal ! !0 ! ! ! + + + + + + !Mid Peroneal ! !0 ! ! ! + + + + + + !Dist Peroneal ! !0 ! ! ! + + + + + + Performing Organization Address City/State/[facility] Phone Number [facility] Comprehensive metabolic panel (04/23/2020 11:26 PM CDT)Only the most recent of5 resultswithin the time period is included. Protein, Total 6.6 6.0 - 8.3 gm/dL [facility] Albumin 2.8 (L) 3.5 - 5.0 g/dL [facility] Alkaline Phosphatase 132 40 - 150 U/L [facility] Total Bilirubin 0.3 0.2 - 1.2 mg/dL [facility] Sodium 139 136 - 145 meq/L [facility] Potassium 3.9 3.5 - 5.1 meq/L [facility] Chloride 99 98 - 107 meq/L [facility] CO2 30 (H) 22 - 29 meq/L [facility] BUN 9 7 - 21 mg/dL [facility] ER Creatinine 0.68 0.57 - 1.25 mg/dL [facility] ER Glucose 150 (H) 70 - 105 mg/dL [facility] ER Calcium 8.0 (L) 8.4 - 10.2 mg/dL [facility] ER AST 29 5 - 34 U/L [facility] ER ALT 24 6 - 55 U/L [facility] ER EGFR 88Comment: ESTIMATED GFR mL/min/1.73 sq m [facility] IS NOT ACCURATE [facility] CREATININE CLEARANCE IN PREDICTING GLOMERULAR FILTRATION RATE. ESTIMATED GFR IS NOT APPLICABLE FOR DIALYSIS PATIENTS. Specimen Blood Narrative Performed At Senior Software Tester ID - PIAYA L [facility] Performing Organization Address City/State/Zipcode Phone Number [place] [phone] [place] [address] CENTER RHYTHM STRIP - SCAN (01/15/2020 1:50 [...] W/Doppler(CW/PW/Color) (01/12/2020 9:23 AM CDT) Ejection Fraction [facility] TLAB [facility] Specimen Narrative Performed At Transthoracic Echocardiography Report (T TE) [facility] Demographics Patient NameHYLTON, CARADate of Study01/12/2020 KARINA Female Visit [id number] Room [id number] Number Date of 1955Referring Shashank ceballos Age 64 year(s)Scientific Software Engineer Viola Hargrove Interpreting Donato Beth MD Physician [...] 01/12/2020 KARINA Gende r Female Visit Number [id number] Race Room Number 6102 Number Date of 1955 Refer ring Physician Age 64 year(s) Sonog rapher Viola Beth MD Physi logan Procedure Type of [...] l/min/m^2 Performing Organization Address City/State/Zipcode Phone Number [facility] Transesophageal echo (01/11/2020 9:12 AM CDT) Ejection Fraction [facility] T[facility] Specimen Narrative Performed At Transesophageal Echocardiography Report (LINDA) [facility] Demographics Patient Name QUIANA VALLADARES Date of Study 01/11/2020 KARINA [id number] GenderFem edwin Visit Number [id number] RaceCauc [id number] m Number 6102 Number Date of Birth1955 Referring Physician Helio Buitrago MD Age64 year(s) Scientific Software Engineer Rob Zurita InterpretingDonato murphy MD Physician Procedure Type of Study [...] is noted. Atrial septal position continuously bows euav-nl-fpaol, consistent with elevated LA pressure. There was [...] noted. Signature Findings Rhythm/BP Interventional LINDA (cpt 96878) for guidance of percutaneous intracardiac procedure. LeftNormal [...] is noted. Atrial septal position continuously bows lpor-hi-dndjc, consistent with elevated LA pressure. PF O [...] Study 01/11/2020 KARINA Gender Female Visit Number [id number] Race [place] [address] Number Date of 1955 Referri Physician Helio Buitrago MD Age 64 year(s) Baldemar Rivas [facility] Interpr eting Donato Beth MD Physici an Procedure [...] noted. Atrial septal posi tion continuously bows uehd-uq-ehxst, consistent with elevated LA pressure. PFO noted. [...] l effusion is visualized. Performing Organization Address City/[facility]/Zipcode Phone Number [facility] ECG 12 lead (01/11/2020 7:34 AM CDT)Only the most recent of3 resultswithin the time period is included. Specimen Narrative Performed At Ventricular Rate 66 BPM [employer] Atrial Rate 66 BPM P-R Interval 160 ms QRS Duration 90 ms Q-T Interval 426 ms QTC Calculation(Bazett) 446 ms P [place] 76 degrees R [place] 49 degrees T [place] 51 degrees Normal sinus rhythm Low voltage [...] 426 ms QTC Calculation(Bazett) 446 ms P [place] 76 degrees R [place] 49 degrees T [place] 51 degrees Normal sinus rhythm Low voltage QRS Within normal limits When compared with ECG of 23-NOV-2019 11 :50, Significant changes have occurred Confirmed by MD Orellana Roberto ([id number]) on 01/11/2020 1:40:18 PM Performing Organization Address City/[facility] Phone Number [employer] Prothrombin time/INR (01/08/2020 9:29 AM CDT)Only the most recent of16 results within the time period is included. Protime 13.7 11.9 - 14.2 seconds [facility] INR 1.1 <=5.9 [facility] Specimen Blood Narrative Performed At Effective 01/25/2019: PT Reference Range [facility] Change New: 11.9-14.2Previous: 11.7-14.7 RECOMMENDED COUMADIN/WARFARIN INR THERAPY RANGES STANDARD DOSE: 2.0-3.0Includes: PROPHYLAXIS for venous thrombosis, systemic embolization; TREATMENT for venous thrombosis and/or pulmonary embolus. HIGH RISK: Target INR is 2.5-3.5 for patients wiht mechanical heart valves. Performing Organization Address City/State/Zipcode Phone Number [facility] [address] [place] [address] CENTER ECHOCARDIOGRAM REPORT - SCAN (12/05/2019 9:11 PM CDT) Narrative Performed At This result has an attachment that is no t available. Transesophageal echo (12/05/2019 9:26 AM CDT) Ejection Fraction [facility] TLAB [facility] Specimen Narrative Performed At Transesophageal Echocardiography Report (LINDA) [facility] Demographics Patient Name QUIANA VALLADARES Date of Study 12/05/2019 KARINA [id number] [facility]Fem [facility] Visit Number [id number] RaceCauc [id number] m Number [id number] Number Date of Birth1955 Referring Physician Helio Buitrago MD Age64 year(s) Scientific Software Engineer Rob murphy MD Physician Fellow Valery Chirinos [...] is noted. Atrial septal position continuously bows xwqi-rn-ejjlj, consistent with elevated LA pressure. Intermittently, with [...] Rhythm/BPSinus bradycardia during the exam. 3D imaging ([facility] 304[address]) rendering with interpretation was performed. Left Normal [...] Septum noted. Atrial septal position continuously bows mnsx-ni-vimcz, consistent with elevated LA pressure. Intermittently, with [...] Study 12/05/2019 KARINA Gender Female Visit Number [id number] Race Room [place] 825473 Number Date of 1955 Referri Physician Helio Buitrago MD Age 64 year(s) Baldemar Rivas [facility] Interpr eting Donato Beth MD Physici an [...] during t he exam. 3D imaging (cpt 35648) miquel kyeing with interpretation was performed. Left [...] noted. Atrial septal posit ion continuously bows fhwi-sp-yyrgl, consistent with elevated LA pressure. Intermittently, with [...] City/State/Zipcode Phone Number [facility] D-dimer (12/02/2019 5:15 AM CDT) D-Dimer, Quant 0.42 <0.50 MG/L FEU [facility] Specimen Blood Narrative Performed At Intended Use: The D-Dimer Assay can be used [facility] to aid in the diagnosis of Deep Vein Thrombosis (DVT) and Pulmonary Embolism Disease (PED). In patients with low pre-test probability, various studies concerning STA Liatest D-dimer test have reported that with a cutoff value of 0.50 MG/L FEU, the Negative Predictive Value (NPV) regarding the exclusion of thrombosis is within 95-100% range. While on warfarin. Performing Organization Address City/[facility]/[employer] Phone Number [facility] [address] [place] [address] CENTER PERIPHERAL VASCULAR REPORT - SCAN (12/01/2019 9:20 PM CDT)Only the most recent of2 resultswithin the time period is included. Narrative Performed At This result has an attachment that is no t available. Venous doppler legs bilateral (12/01/2019 9:59 AM CDT)Only the most recent of2 resultswithin the time period is included. [facility] ECHO HEAR TLAB [facility] Specimen Impressions Performed At Right Impression [facility] 1. There is [...] PV LAB - Lower Extremities DVT Study [facility] Demographics Patient Name QUIANA VALLADARES Date of Study12/01/2019 [id number] Age8 2 Visit Number [id number] Female Accession Number [id number] of Birth1955 Nu KuRoom Number 2223 MD Stuart SonographerNomi Lara [facility] Interpreting Christa Carter Physician Procedure Type [...] DVT Study Demographics Patient Name QUIANA VALLADARES Manjinder hung of Study 12/01/2019 e 64 Visit Number [id number] nder Female Accession Number [id number] Da te of 1955 Referring Nickolas Coffey Number 2223 Physician MD Nicolasa Scientific Software Engineer Nomi Lara T In terpreting Christa Carter, [...] cm Performing Organization Address City/State/Zipcode Phone Number [facility] [employer] [facility] ECHOCARDIOGRAM REPORT - SCAN (11/30/2019 9:10 PM CDT) Narrative Performed At This result has an attachment that is no t available. 2D Echo W/Doppler(CW/PW/Color) (11/30/2019 4:13 PM CDT) Ejection Fraction [facility] TLAB [employer] [facility] Specimen Narrative Performed At Transthoracic Echocardiography Report (T TE) [facility] [employer] [facility] [facility] Demographics Patient Name Viji VALLADARES of Study 11/30/2019 KARINA [id number] Gender Female Visit Number [id number] [id number] Room Number 2223 Number Date of Birth1955Referring Physician Briseida Vo MD Age64 year(s)Scientific Software Engineer Viola Hargrove [facility] MD Physician Procedure Type of Study [...] Study 11/30/2019 KARINA Gender Female Visit Number [id number] Race Room [address] [place] [address] Number Date of 1955 Referr ing Physician [...] T CI: 2.26 l/min/m^2 Performing Organization Address City/State/[facility] Phone Number [facility] [place] [facility] MKTIMOTHY [facility] MR brain without IV contrast (11/29/2019 11:06 PM CDT) Specimen Narrative Performed At FINAL REPORT [facility] MR, BRAIN, WITHOUT CONTRAST, MR, MRA, NE [...] shift or hydrocephalus. No acute intracranial hemorrhage. Puhs-pi-arlcawwv nonspecific supratentor ial and infratentorial white matter [...] cervical or cranial circulation. Signed: Silvano Bruce MD Report Verified Date/Time:11/29/2019 23:14:20 Procedure Note [...] shift or hydrocephalus. No acute intracranial hemorrhage. Imhk-bv-sebkdyqj nonspecific supratentor ial and infratentorial white matter [...] cervical or cranial circulation. Signed: Silvano Bruce MD Report Verified Date/Time: 11/29/2019 2 3:14:20 Performing Organization Address City/State/Zipcode Phone Number [employer] MRA neck without IV contrast (11/29/2019 11:06 PM CDT) Specimen Narrative Performed At FINAL REPORT [employer] MR, BRAIN, WITHOUT CONTRAST, MR, MRA, NE [...] shift or hydrocephalus. No acute intracranial hemorrhage. Foef-nk-mjradptz nonspecific supratentor ial and infratentorial white matter [...] cervical or cranial circulation. Signed: Silvano Bruce MD Report Verified Date/Time:11/29/2019 23:14:20 Procedure Note [...] shift or hydrocephalus. No acute intracranial hemorrhage. Uxiy-no-alqvwhlg nonspecific supratentor ial and infratentorial white matter [...] cervical or cranial circulation. Signed: Silvano Bruce MD Report Verified Date/Time: 11/29/2019 2 3:14:20 Performing Organization Address City/State/Zipcode Phone Number [employer] MRA head without IV contrast (11/29/2019 11:06 PM CDT) Specimen Narrative Performed At FINAL REPORT [employer] MR, BRAIN, WITHOUT CONTRAST, MR, MRA, NE [...] shift or hydrocephalus. No acute intracranial hemorrhage. Huse-fy-lehopazw nonspecific supratentor ial and infratentorial white matter [...] cervical or cranial circulation. Signed: Silvano Bruce MD Report Verified Date/Time:11/29/2019 23:14:20 Procedure Note [...] shift or hydrocephalus. No acute intracranial hemorrhage. Stdd-mo-bwacsuru nonspecific supratentor ial and infratentorial white matter [...] cervical or cranial circulation. Signed: Silvano Bruce MD Report Verified Date/Time: 11/29/2019 2 3:14:20 Performing Organization Address City/[facility]/Zipcode Phone Number RIS Platelet count (11/29/2019 9:09 PM CDT) Platelets 256 150 - 450 K/CU MM [facility] Specimen Blood Narrative Performed At Senior Software Tester ID - [id number] [facility] Performing Organization Address City/[facility]/Zipcode Phone Number [address] [address] CENTER Hemoglobin A1c (11/29/2019 9:09 PM CDT) Hemoglobin A1C 5.7 4.3 - 6.1 % [facility] Specimen Blood Performing Organization Address City/[facility]/Zipcode Phone Number [address] [address] CENTER Lipid panel (11/29/2019 9:09 PM CDT) Triglycerides 143 mg/dL [facility] Cholesterol 158 mg/dL [facility] HDL 45 mg/dL [facility] LDL Calculated 84 mg/dL [facility] Specimen Blood Narrative Performed At Triglyceride Reference Range: [facility] Low Risk <150 Bgtejqjzyh863-291 High Risk 200-499 Very High Risk>=500 Cholesterol Reference Range: Low Risk <200 Nczfppghzx698-439 High Risk>240 HDL Cholesterol Reference Range: Low Risk >=60 High Risk <40 LDL Cholesterol Reference Range: Optimal<100 Near Ghikniq545-653 Btnqqcfpxo844-117 Dwyp237-736 Very High >=190 Senior Software Tester ID - DB Performing Organization Address [facility] Phone Number [address] [address] [place] Vitamin B12 and Folate (11/29/2019 9:08 PM CDT) Vitamin B12 335 213 - 816 pg/mL [facility] Folate 11.7 >=7.0 ng/mL [facility] Specimen Blood Narrative Performed At Senior Software Tester ID - [facility] Performing Organization Address [facility] Phone Number [address] [address] [place] TSH/Free T4 If Indicated (11/29/2019 9:08 PM CDT) TSH 0.87 0.35 - 4.94 uIU/mL [facility] Specimen Blood Narrative Performed At Senior Software Tester ID - [facility] Performing Organization Address [facility] Phone Number [address] [address] [place] VASCULAR DIAGRAM -SCAN (11/27/2019 1:31 PM CDT)Only the most recent of3 results within the time period is included. Narrative Performed At This result has an attachment that is no t available. Phosphorus (11/26/2019 4:39 AM CDT)Only the most recent of13 resultswithin the time period is included. Phosphorus 4.3 2.3 - 4.7 mg/dL [facility] Specimen Blood Narrative Performed At Senior Software Tester ID - [facility] Performing Organization Address City/[facility] Phone Number [address] [place] [address] brain without IV contrast (11/24/2019 10:45 AM CDT) Specimen Narrative Performed At FINAL REPORT RIS CT Head without contrast CLINICAL HISTORY: Altered [...] MD Report Verified Date/Time:11/24/2019 11:04:11 [place] Location: [address] Room Procedure Note Interface, External Ris [...] Verified Date/Time: 11/24/2019 1 1:04:11 [place] Location: [address] Room Performing Organization Address City/State/Zipcode Phone Number GE [facility]IS ECHOCARDIOGRAM REPORT - SCAN (11/23/2019 9:11 PM CDT) Narrative Performed At This result has an attachment that is no t available. 2D Echo W/Doppler(CW/PW/Color) (11/23/2019 8:55 AM CDT) Ejection Fraction [facility] TLAB [facility] Specimen Narrative Performed At Transthoracic Echocardiography Report (T TE) [facility] Demographics Patient NameHYLTQUIANA JOSUE Date of Study11/23/2019 KARINA Gender Female Visit [id number] Race Caucasi an [id number] Number Date of 1955 ReferringJoseph Syeda Amato MD Age 64 year(s) SonAndrea Quintero [facility] Data Processing Control Clerk Remy Beth MD Physician Procedure Type of [...] Study 11/23/2019 KARINA Gender Female Visit Number [id number] Race Room [facility] 2CV24 Number Date of 1955 Felix Pepper MD Age 64 year(s) Sonograp her Karladelmi Quintero, [facility] Data Processing Control Clerk Remy Beth MD Physicia n Procedure Type [...] T CI: 2.52 l/min/m^2 Performing Organization Address City/[facility]/Zipcode Phone Number [facility] CARDIAC CATH REPORT - SCAN (11/17/2019 5:20 PM CDT) Narrative Performed At This result has an attachment that is no t available. B-type Natriuretic Factor (BNP) (11/16/2019 10:32 AM CDT)Only the most recent of 2 resultswithin the time period is included. BNP 157 (H) 0 - 100 pg/mL [facility] Specimen Blood Narrative Performed At Senior Software Tester ID - AAHAMID [facility] Performing Organization Address [facility] Phone Number [facility] MEDICAL [address] [place] [address] CENTER EKG-SCANNED (11/06/2019 11:52 AM CDT) Narrative [...] bone scan whole body (11/03/2019 3:57 PM SYNTHETIC STAPLE EXTRUDER) Specimen Narrative Performed At FINAL REPORT [facility] PROCEDURE: BONE SCAN, WHOLE BODY CPT CODE:[id number] INDICATION:Lung cancer PROTOCOL:21.5 mCi of Tc-99m MDP [...] were r ecent chest CT. Signed: Blane Townsend MD Report Verified Date/Time:11/03/2019 16:33:30 [place] Location: [address] Reading Room Procedure Note Interface, External Ris In - 11/03/2019 4:35 PM SYNTHETIC STAPLE EXTRUDER FINAL REPORT PROCEDURE: BONE SCAN, WHOLE BODY CPT CODE: 22637 INDICATION: Lung cancer PROTOCOL: 21.5 mCi of [...] were r ecent chest CT. Signed: Blane Townsend MD Report Verified Date/Time: 11/03/2019 1 6:33:30 [place] Location: [address] Med [place] Room Performing Organization Address City/State/Zipcode Phone Number [employer] CTA chest (11/02/2019 7:17 PM SYNTHETIC STAPLE EXTRUDER) Specimen Narrative Performed At Addendum Begins GE [...] MD Report Verified Date/Time:11/03/2019 16:18:17 [place] Location: [place] [address] Angio Body Reading Room Addendum Ends FINAL [...] the contrast sheet scann ed in the Fast Orientation system for the amount and route of [...] reference purpose, per [employer] Elliot lut R brochure, recommendation are as follows: CT perime ter between 56.5-62.8 mm (23 mm valve); 62.8-72.3 mm (26 mm valve); 7 2.3-81.7 mm (29 mm valve); and 81.7-94.2. mm (34 mm valve). For reference purpose, per Anali Edge br tanya, recommendation are as follows: 23mm valve is [...] performed a few days ago by the Slitter Creaser Slotter Operator Radiologist. Refer to formal dictation for details, [...] regar ding the non-vascular findings by the Slitter Creaser Slotter Operator Radiologist. Signed: Ricardo Broussard MD Report Verified Date/Time:11/03/2019 07:39:57 Procedure Note Interface, External Ris In - 11/03/2019 4:20 PM SYNTHETIC STAPLE EXTRUDER Addendum Begins REPORT STATUS:A I have reviewed [...] Verified Date/Time: 11/03/2019 1 6:18:17 Reading Location: [facility] P048 Angio Body Reading Room Addendum Ends [...] the contrast sheet scann ed in the Fast Orientation system for the amount and route of [...] mm valve). For reference purpose, per Anali martínez, recommendation are as follows: 23mm valve [...] performed a few days ago by the Slitter Creaser Slotter Operator Radiologist. Refer to formal dictation for details, [...] regardi ng the non-vascular findings by the Slitter Creaser Slotter Operator Radiologist. Signed: Ricardo Broussard MD Report Verified Date/Time: 11/03/2019 0 7:39:57 Performing Organization Address City/State/Zipcode Phone Number [employer] CTA abdomen & pelvis (11/02/2019 7:17 PM SYNTHETIC STAPLE EXTRUDER) Specimen Narrative Performed At Addendum Begins [facility] RIS REPORT STATUS:A I have reviewed the [...] MD Report Verified Date/Time:11/03/2019 16:18:17 Reading Location: [place] [address] Angio Body Reading Room Addendum Ends FINAL [...] the contrast sheet scann ed in the Fast Orientation system for the amount and route of [...] valve). For reference purpose, per Analius Yani martínez, recommendation are as follows: 23mm [...] performed a few days ago by the Slitter Creaser Slotter Operator Radiologist. Refer to formal dictation for details, [...] regar ding the non-vascular findings by the Slitter Creaser Slotter Operator Radiologist. Signed: Ricardo Broussard MD Report Verified Date/Time:11/03/2019 07:39:57 Procedure Note Interface, External Ris In - 11/03/2019 4:20 PM SYNTHETIC STAPLE EXTRUDER Addendum Begins REPORT STATUS:A I have reviewed [...] Verified Date/Time: 11/03/2019 1 6:18:17 Reading Location: [place] [address] Angio Body Reading Room Addendum Ends FINAL [...] the contrast sheet scann ed in the Fast Orientation system for the amount and route of [...] performed a few days ago by the Slitter Creaser Slotter Operator Radiologist. Refer to formal dictation for details, [...] regardi ng the non-vascular findings by the Slitter Creaser Slotter Operator Radiologist. Signed: Ricardo Broussard MD Report Verified Date/Time: 11/03/2019 0 7:39:57 Performing Organization Address City/State/Zipcode Phone Number [employer] PULMONARY FUNCTION - SCAN (11/02/2019 3:02 PM SYNTHETIC STAPLE EXTRUDER) Narrative Performed At This result has an attachment that is no t available. Carotid doppler bilateral (11/02/2019 9:27 AM SYNTHETIC STAPLE EXTRUDER) Ejection Fraction [facility] Specimen Impressions Performed At Right Impression [facility] 1. There is [...] At PV LAB - Carotid Duplex Study [facility] Demographics Patient Name QUIANA VALLADARES of Study11/02/2019 [id number] Visit Number [id number] Gender Female Accession Number [id number] Date of Birth1955 [facility] [id number] Eleanro SonographerAmy De La Paz Interpreting Christa Carter , RN, RVCourtney DE LA CRUZ Procedure Type of Study: Cerebral: Carotid, CAROTID DOPPLER, JOY ATERAL. Indications for Study:Pre op TVAR. Patient Status:Routine. Study Location:Vascular Lab. Technical Quality:Adequate visualization . Risk Factors History of Disease + +----+---- + !Diagnosis !Date!Comments ! + +----+---- + !History/Risk Factors:! !Cancer, HTN, DM ! + +----+---- + Procedure Note Interface, External Ris In - 11/02/2019 6:12 PM SYNTHETIC STAPLE EXTRUDER PV LAB - Carotid Duplex Study Demographics Patient Name QUIANA VALLADARES ate of Study 11/02/2019 A ge 64 Visit Number [id number] G lionel Female Accession Number [id number] D ate of 1955 Referring Minna goelom Number [id number] Physician Shama Scientific Software Engineer Amy De La Paz I nterpreting Christa [...] 0.95. Performing Organization Address City/State/Zipcode Phone Number [facility] ECHOCARDIOGRAM REPORT - SCAN (11/01/2019 9:20 PM SYNTHETIC STAPLE EXTRUDER) Narrative Performed At This result has an attachment that is no t available. Pulmonary Funct Lab Spirometry (11/01/2019 5:02 PM SYNTHETIC STAPLE EXTRUDER) Narrative Performed At Leny Almonte, CARDROOM WORKER, CAR DESIGNER 0205:45 PM [facility] PFT CHARTING REPORT Infection Control/Hand Hygiene procedure s followed throughout the encounter with patient: Yes Patient Identification Method: Patient n simin verified on armband, and Medical record on armband, Is the order complete?: Yes Account ID#: [id number] Patient Name: Quiana Valladares Birthdate: 1955 Age: [...] informed of the ordered study by the christina bond Barriers to performing study or treatme nt: Patient has no known disability to perform the study or treat ment. DISCHARGE The study was completed in accordance wi th the physician's order and patient released from the lab withou t adverse outcome. 2D Echo W/Doppler(CW/PW/Color) (11/01/2019 1:22 PM SYNTHETIC STAPLE EXTRUDER) Ejection Fraction [facility] Specimen Narrative Performed At Transthoracic Echocardiography Report (T TE) [facility] Dem[facility] Patient Name QUIANA VALLADARES Date of Study 11/01/2019 KARINA [id number] GenderFem edwin Visit Number [id number] RaceCauc [id number] m Number [id number] Number Date of Birth1955 Referring Physician Helio Buitrago MD Age64 year(s) Scientific Software Engineer Delmar Odonnell ms [facility] AnalystIzoPhysician JONO Quinones Procedure Type of Study TTE procedure:2DECHO W [...] External Ris In - 11/01/2019 4:22 PM SYNTHETIC STAPLE EXTRUDER Transthoracic Echocardiography Report (TTE) Demographics Patient Name QUIANA VALLADARES Date of Study 11/01/2019 KARINA Gender Female Visit Number [id number] Race [facility] [id number] Number Date of 1955 Referri Physician Helio Buitrago MD Age 64 year(s) Sonogra pher Mekco Shen [facility] Data Processing Control Clerk Asaf Zulema Deborasandra Interpr eting Keara Deluca MD Procedure Type of Study TTE procedure:2DECHO W DOPPLE R(CW/PW/COLOR) (STAT) Indications:Routine follow up of valve s tenosis with no clinical change. Clinical History HGB 10.8 HCT 32.6 % , COLORECTAL CA (S/P ), NEWLY DX LUNG MASS, COPD, R/L [...] TR Gradient: 22.84 mmHg Performing Organization Address City/[facility] Phone Number [facility] ABORH, manual (11/01/2019 5:53 AM SYNTHETIC STAPLE EXTRUDER) ABO Grouping O [facility] Rh Factor POS [facility] Specimen Blood Performing Organization Address [facility] Phone Number [facility] [address] [place] [address] CT chest for pulmonary embolus (10/30/2019 5:29 PM SYNTHETIC STAPLE EXTRUDER) Specimen Narrative Performed At FINAL REPORT [employer] TECHNIQUE: CT of the chest WITH intraven ous contrast (pulmonary embolism protocol). Dose modulation, ite rative reconstruction, and/or weight-based adjustment of the mA/kV was utilized to reduce the radiation dose to as low as reasonably a chievable. INDICATION: 64-year-old woman with chest pain, shortness of breath, and history of cancer. COMPARISON: Chest radiograph from [facility] same date. FINDINGS: LINES/TUBES: The tip [...] MD Report Verified Date/Time:10/30/2019 18:23:35 Reading Location: [facility] C013Y CT Body R ding Room Procedure Note Interface, External Ris In - 10/30/2019 6:25 PM SYNTHETIC STAPLE EXTRUDER FINAL REPORT TECHNIQUE: CT of the chest WITH intraven ous contrast (pulmonary embolism protocol). Dose modulation, ite rative reconstruction, and/or weight-based adjustment of the mA/kV was utilized to reduce the radiation dose to as low as reasonably a chievable. INDICATION: 64-year-old woman with chest pain, shortness of breath, and history of cancer. COMPARISON: Chest radiograph from [facility] same date. FINDINGS: LINES/TUBES: The tip [...] Date/Time: 10/30/2019 1 8:23:35 Reading Location: [facility] C013Y CT Body R eading Room Performing Organization Address City/State/Zipcode Phone Number [facility] RIS Troponin I (10/30/2019 4:04 PM SYNTHETIC STAPLE EXTRUDER) Troponin I <0.01 0.00 - 0.03 ng/mL [facility] Specimen Blood Narrative Performed At Troponin I (TnI) levels must be interpreted [facility] in the context of the presenting symptoms and the clinical findings. Elevated TnI levels indicate myocardial damage, but are not specific for ischemic heart disease. Elevated TnI levels are seen in patients with other cardiac conditions (including myocarditis and congestive heart failure), and slight TnI elevations occur in patients with other conditions, including sepsis, renal failure, acidosis, acute neurological disease, and persistent tachyarrhythmia. Senior Software Tester ID - BS Performing Organization Address City/State/Zipcode Phone Number LORRI PLATT [place] [employer] [facility] [address] [place] [address] CENTER after 05/06/2019 Insurance Payer Benefit Plan / Group Subscriber ID Type Phone A ddress MEDICARE MEDICARE A B xxxxxxxxxxx Medicare CDC REVIEW CDC REVIEW xxxxxxxx [address] [place], [place] [phone] Advance Directives For more information, please contact:LORRI Muñoz [employer] [id number] [place], [place] [phone] Code Status Date Activated Date Inactivated Comments Full Code 04/24/2020 12:29 AM 05/03/2020 5:20 PM This code status was determined by: Patient Full Code 01/11/2020 6:46 AM 01/12/2020 4:51 [...]
--- OUTSIDE RECORDS SUMMARY | 2020-05-06 01:20 | XMS REPORT | Continuity of Care Document ---
:1955 Author Organization [facility] t Address [address] [place] [address] [address]. [address] [place] [address] Care Team Providers Name Role Phone Pcp Primary Care Physician Unavailable Rodrigo Buitrago MD Attending Clinician Tri Caballero MD Attending Clinician Adriana Trimble MD Attending Clinician [phone] Josue Ludwig MD Attending Clinician Chandan Serra Attending Clinician Unavailable RODRIGO BUITRAGO Attending Clinician Unavailable Nickolas DE LA CRUZ Attending Clinician Abel VOGEL Attending Clinician Unavailable Chandan Aleman [...] Date MEDICAREMEDICARE A xxxxxxxxxxx [facility] CDC REVIEWCDC xxxxxxxx [facility] REVIEWxxxxxxxxPO [place], [place] Medical [id number] Center Problems Condition Condition Condition Status Onset Resolution Last Treating Co mments Source Name Details Category Date Date Treatment Clinician Date Critical Critical Disease [facility] lower limb 8-26 Kristi kes - ischemia ischemia 00:00: Medica l 00 Center PFO PFO Disease Active [facility] (patent (patent 514 [facility] - foramen foramen 00:00: Medical ovale) ovale) 00 [place] 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 4-02 [facility] - 00:[facility]: Medical 00 [place] HTN HTN Disease Active [facility] (hypertens (hypertens 3-25 Kristi kes - ion) ion) 00:00: Medical chronic chronic 00 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, mellitus, 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 00:00: Medical (HCC) (HCC) 00 Center (home (home Metformin) Metformin) Genital Genital Disease Active [facility] herpes herpes 3-22 [facility] - 00:00: Medical 00 [place] Aortic Aortic Disease Active [facility] valve [...] Medica l lobe of lobe of 00 [place] right lung right lung COPD COPD Disease Active [facility] exacerbati exacerbati 3-03 Kristi kes - on on 00:00: Medical 00 Center Colorectal Colorectal Disease Active [facility] cancer cancer 3-03 [facility] - (HCC) S/P (HCC) S/P 00:00: Medi hamlet chemoradia chemoradia 00 Ce nter tion in tion in 2015 2015 History of Past Illness Condition Condition Condition Status Onset Resolution Last Treating Co mments Source Name Details Category Date Date Treatment Clinician Date SOB SOB Disease Resolve 2019-11-22 2019-11-[address] [facility] (shortness (shortness d 02 00:00:00 11:35:28 [facility] - of breath) of breath) 00:00: Me dical 00 Center Allergies, Adverse Reactions, Alerts Allergy Allergy Status Severity Reaction(s) Onset Inactive Treating Comm ents Source Name Type Date Date Clinician Sulfamet Propensi Active Swelling [facility] hoxazole ty to 3-19 [facility] - -Trimeth adverse 00:00: Medical oprim reaction 00 [place] s Sulfamet Propensi Active Anaphylaxis [facility] hoxazole ty to 8-12 [facility] - adverse 00:00: Medical reaction 00 [place] s Social History Social Habit Start Date Stop Date Quantity Comments Source Sex Assigned At [facility] Cigarettes smoked 2020-04-30 2020-04-30 [facility] - current (pack per 00:00:00 00:00:00 [facility] day) - Reported Cigarette pack-years 2020-04-30 2020-04-30 [facility] - 00:00:00 00:00:00 [facility] Alcohol Comment 2019-11-16 2019-11-16 [facility] - 00:00:00 00:00:00 [facility] Smoking Status Start Date Stop Date Source Current every day smoker 2020-04-30 00:00:00 [facility] Medications Ordered Filled Start Stop Current Ordering Indication Dosage Frequency Signature Comments Components Source Medication Medication Date Date Medication? Clinician (SIG) Name Name clopidogreL 2020- Yes 75mg QD Take [address] [facility] (PLAVIX) 75 05-03 09-04 tablet (75 L ukes - mg tablet 00:00: 23:59 mg total) Me dical 00 :00 by mouth [place] daily. enoxaparin 2019- Yes 50mg Q24H Inject 0.[address] [facility] (LOVENOX) 05-03 10-04 mLs (50 mg Stephanie es - 60 mg/0.6 00:00: 23:59 total) Medic al mL Syrg 00 :00 subcutaneo [place] usly daily for 30 days. aspirin 81 2020-0 2020- No 81mg QD Take [address] [facility] MG EC -16 05-03 tablet (81 [facility] - tablet 00:00: 00:00 mg total) Medic al 00 :00 by mouth Center daily. valACYclovi 2020-0 Yes 500mg QD Take [address] [facility] r (VALTREX) 4-10 tablet [facility] - 500 MG 00:00: (500 mg Medical tablet 00 total) by Center mouth daily. warfarin 2019- No 7.5mg QD Take 1 [facility] (COUMADIN, 4-10 05-15 tablet [facility] - JANTOVEN) 00:00: 00:00 (7.5 mg Medi hamlet 7.5 MG 00 :00 total) by Center tablet mouth daily. aspirin 81 No 81mg QD Take [address] [address] MG EC 12-06 by mouth [facility] - tablet 11:27: 00:00 daily. Medical 38 :00 Center clopidogreL No 75mg QD Take [address] [facility] (PLAVIX) 75 12-06- tablet (75 L ukes - mg tablet 00:00: 23:59 mg total) Me dical 00 :00 by mouth Center daily. atorvastati No 40mg QD Take [address] [facility] n (LIPITOR) 12-06- tablet (40 L ukes - 40 MG 00:00: 23:59 mg total) Medica l tablet 00 :00 by mouth Center nightly. albuterol 2019- No 1{puff} Inhale [address] [address] HFA 12-06 puff by [facility] - (VENTOLIN 00:00: 23:59 mouth via Me dical HFA) 90 00 :00 inhaler Center mcg/actuati every 6 on inhaler (six) hours as needed for Wheezing for up to 30 days. traZODone 2019- No 50mg Take 1 [facility] (DESYREL) 12-06-09 tablet (50 Stephanie es - 50 MG 00:00: 23:59 mg total) Medica l tablet 00 :00 by mouth Center every night as needed for Sleep for up to 30 days. clopidogreL No 75mg QD Take [address] [facility] (PLAVIX) 75 3-30 -09 tablet (75 L ukes - mg tablet 00:00: 00:00 mg total) Me dical 00 :00 by mouth Center daily. diphenhydrA 2020- No Apply [facility] MINE-zinc 11-25 topically Luke s - acetate 00:00: 23:59 3 (three) Medi hamlet (BENADRYL 00 :00 times Center EXTRA daily as STRENGTH) needed for 2-0.1 % Itching. cream mometasone- Yes 2{puff} Q.5D Inhale [address] formoterol 3-19 puffs by [facility] - (DULERA) 10:36: mouth via Medi hamlet 200-5 24 inhaler 2 Center mcg/actuati (two) on inhaler times daily. ascorbic Yes 1000mg QD Take 1,[address] acid, 3-19 mg by [place]ash - vitamin C, 10:33: mouth Medica l (VITAMIN C) 53 daily . Cente r 1000 MG tablet nicotine 2019- No 1{patch Q24H Place [address] (NICODERM 11-03 } patch onto Stephanie es - CQ) 21 00:00: 00:00 the skin Medica l mg/24 hr 00 :00 daily for Center patch 30 days. albuterol 2019- No 1{puff} Inhale [address] HFA 11-03 puff by [facility] - (VENTOLIN 00:00: 00:00 mouth via Me [...] Sleep for up to 30 days. furosemide 2019- No 20mg Take [address] [facility] [facility] (LASIX) 20 11-03 tablet (20 Kristi kes - MG tablet 00:00: 00:00 mg total) Me dical 00 :00 by mouth Center daily as needed for up to 30 days. metFORMIN Yes 500mg Take [address] [facility] [facility] (GLUCOPHAGE 8-18 mg by [facility] - ) 500 MG 00:00: mouth 2 Medica l tablet 00 (two) Center times daily with breakfast and dinner . Vital Signs Vital Name Observation Time Observation Value Comments Source Systolic blood 2020-05-03 11:00:00 122 mm[Hg] [facility] Diastolic blood 2020-05-03 11:00:00 75 mm[Hg] [facility] Heart rate 2020-05-03 11:00:00 94 /min [facility] Body temperature 2020-05-03 11:00:00 36.72 Gracia [facility] Respiratory rate 2020-05-03 11:00:00 18 /min [facility] Oxygen saturation in 2020-05-03 11:00:00 98 /min [facility] Arterial blood by Medical Ce nter Pulse oximetry Body weight Measured 2020-04-28 08:22:00 51.4 kg [facility] BMI 2020-04-28 08:22:00 18.86 kg/m2 [facility] Body height 2020-04-23 23:15:00 165.1 cm [facility] Procedures Procedure Date / Time Performing Clinician Source Performed POCT-GLUCOSE METER 2020-05-03 11:05:00 [facility] POCT-GLUCOSE METER 2020-05-03 07:51:00 [facility] POCT-GLUCOSE METER 2020-05-02 21:21:00 [facility] POCT-GLUCOSE METER 2020-05-02 15:50:00 [facility] BASIC METABOLIC PANEL (7) 2020-05-02 13:42:00 [facility] POCT-GLUCOSE METER 2020-05-02 11:58:00 [facility] POCT-GLUCOSE METER 2020-05-02 08:06:00 [facility] POCT-GLUCOSE METER 2020-05-01 21:20:00 [facility] POCT-GLUCOSE METER 2020-05-01 16:25:00 [facility] POCT-GLUCOSE METER 2020-05-01 11:58:00 [facility] POCT-GLUCOSE METER 2020-05-01 06:49:00 [facility] CBC (HEMOGRAM ONLY) 2020-04-30 22:16:00 Connor Dominiqueанна [facility] POCT-GLUCOSE METER 2020-04-30 21:00:00 [facility] TRANSFUSION SERVICE REPORT 2020-04-30 18:10:31 Compa Egan [facility] POCT-GLUCOSE METER 2020-04-30 16:45:00 [facility] POCT-GLUCOSE METER 2020-04-30 12:01:00 [facility] POCT-GLUCOSE METER 2020-04-30 07:13:00 [facility] POCT-GLUCOSE METER 2020-04-29 21:02:00 [facility] POCT-GLUCOSE METER 2020-04-29 16:18:00 [facility] CBC (HEMOGRAM ONLY) 2020-04-29 13:51:00 Robert Garcia [facility] POCT-GLUCOSE METER 2020-04-29 12:07:00 [facility] PREPARE LEUKO-REDUCED RBC 2020-04-29 10:07:00 [facility] VENOGRAM 2020-04-29 10:02:00 [facility] POCT-GLUCOSE METER 2020-04-29 07:17:00 [facility] BASIC METABOLIC PANEL (7) 2020-04-29 04:23:00 Jose Luis Mckeon [facility] PT/APTT 2020-04-29 04:23:00 Jose Luis Mckeon [facility] TYPE AND SCREEN, AUTOMATED 2020-04-29 04:23:00 Jose Luis Mckeon [facility] CBC W/PLT COUNT & AUTO 2020-04-29 04:23:00 Jose Luis Mckeon [facility] POCT-GLUCOSE METER 2020-04-28 21:12:00 [facility] SARS-COV2/RT-PCR ([facility] & 2020-04-28 19:10:00 Paris Marcum [facility] - REF LABS) [facility] POCT-GLUCOSE METER 2020-04-28 16:28:00 [facility] POCT-GLUCOSE METER 2020-04-28 11:39:[address] [facility] [address] CHEST WITH IV CONTRAST 2020-04-28 07:57:00 [facility] POCT-GLUCOSE METER 2020-04-28 06:43:00 [facility] CBC (HEMOGRAM ONLY) 2020-04-28 04:15:00 Connor Dominique [facility] POCT-GLUCOSE METER 2020-04-27 20:55:00 [facility] 2020-04-27 16:03:00 [facility] POCT-GLUCOSE METER 2020-04-27 11:28:00 [facility] POCT-GLUCOSE METER 2020-04-27 07:09:00 [facility]UCOSE METER 2020-04-26 20:55:00 Gadicherin [facility] TRANSFUSION SERVICE REPORT 2020-04-26 18:00:20 Provider, Compa [facility] POCT-GLUCOSE METER 2020-04-26 16:22:00 Gadicherin [facility] PV ARTERIAL ARTURO UNILATERAL 2020-04-26 12:55:00 Paris Marcum [facility] POCT-GLUCOSE METER 2020-04-26 10:58:00 Gadicherin [facility] MR BRAIN WITH & WITHOUT IV 2020-04-26 08:38:00 Melody Caballero [facility] POCT-GLUCOSE METER 2020-04-26 07:01:00 Gadicherin, [facility] APTT 2020-04-26 03:54:00 Braeden Ludwig [facility] BASIC METABOLIC PANEL (7) 2020-04-26 03:54:00 Helio Buitrago [facility] CARCINOEMBRYONIC ANTIGEN 2020-04-26 03:54:00 Ricardo Nava [facility] ([facility] CBC W/PLT COUNT & AUTO 2020-04-26 03:54:00 Gene Bolanos [facility] PREPARE LEUKO-REDUCED RBC 2020-04-25 23:54:00 Jose Luis Mckeon [facility] APTT 2020-04-25 23:12:00 Gadicherin [facility] POCT-GLUCOSE METER 2020-04-25 21:15:00 [facility] 2020-04-25 18:02:13 Provider, Compa [facility] POCT-GLUCOSE METER 2020-04-25 16:57:00 Gadicherin, [facility] APTT 2020-04-25 15:27:00 [facility] POCT-GLUCOSE METER 2020-04-25 14:37:00 Gadarcadioersteven [facility] APTT 2020-04-25 09:03:00 [facility] 2020-04-25 07:33:00 Gadicherin [facility] APTT 2020-04-25 03:38:00 Dominique[facility] BASIC [facility]ABOLIC PANEL (7) 2020-04-25 03:38:00 Helio Buitrago [facility] MAGNESIUM 2020-04-25 03:38:00 [facility] W/[facility]T [facility] & AUTO 2020-04-25 03:38:00 Gene Bolanos [facility] POCT-GLUCOSE METER 2020-04-24 23:26:00 Nai [facility] APTT 2020-04-24 21:10:00 Gene Bolanos [facility] CBC (HEMOGRAM ONLY) 2020-04-24 21:10:00 Dominique, Connor [facility] 2D ECHO W/ DOPPLER 2020-04-24 18:50:24 Elisa Patel [facility] (CW/PW/COLOR) [facility] BASIC METABOLIC PANEL (7) 2020-04-24 18:03:00 Nathaniel Vera [facility] HEMOGLOBIN AND HEMATOCRIT 2020-04-24 18:03:00 Nathaniel Vera [facility] BLOOD GAS, ARTERIAL 2020-04-24 17:27:00 [facility] 2020-04-24 17:14:00 Braeden Ludwig [facility] POCT-ACT 2020-04-24 15:37:00 Melody Caballero [facility] POCT-ACT 2020-04-24 14:57:00 Melody Caballero [facility] CALCIUM, IONIZED 2020-04-24 14:56:10 Mart Burnett [facility] BLOOD GAS, ARTERIAL 2020-04-24 14:56:10 Mart Burnett [facility] SODIUM NA-STAT LAB 2020-04-24 14:56:10 Mart Burnett [facility] POTASSIUM-STAT LAB 2020-04-24 14:56:10 Mart Burnett [facility] GLUCOSE-STAT LAB 2020-04-24 14:56:10 Mart Burnett [facility] HGB/HCT (H&H) - STAT LAB 2020-04-24 14:56:10 Mart Burnett [facility] THROMBECTOMY-LOWER 2020-04-24 14:15:00 Braeden Ludwig [facility] BYPASS,FEMORAL-FEMORAL 2020-04-24 14:15:00 Vani Braeden [facility] XR CHEST 1 VIEW 2020-04-24 13:09:00 Melody Caballero [facility] PORTABLE/BEDSIDE [facility] TRANSFUSE LEUKO-REDUCED RED 2020-04-24 12:02:21 Gene Bolanos [facility] BLOOD CELLS [facility] HEMOGLOBIN AND HEMATOCRIT 2020-04-24 12:01:00 Jose Luis Mckeon [facility] POTASSIUM 2020-04-24 12:01:00 Helio Buitrago [facility] MAGNESIUM 2020-04-24 12:01:00 Helio Buitrago [facility] POCT-GLUCOSE METER 2020-04-24 11:50:00 Melody Caballero [facility] CT/CTA AAA AND RUNOFF 2020-04-24 11:10:00 Jose Luis Mckeon I [facility] CT BRAIN WITH & WITHOUT IV 2020-04-24 11:10:00 Jose Luis Mckeon [facility] ARTERIAL DOPPLER LEG, LEFT 2020-04-24 07:54:[address] [facility] APTT 2020-04-24 06:48:00 Gene Bolanos [facility] PREPARE LEUKO-REDUCED RBC 2020-04-24 06:48:00 Gene Bolanos ael [facility] SARS-COV2/RT-PCR ([facility] & 2020-04-24 04:55:00 Helio Buitrago [facility] - REF LABS) [facility] BASIC METABOLIC PANEL (7) 2020-04-24 04:55:00 Helio Buitrago [facility] CBC W/PLT COUNT & AUTO 2020-04-24 04:55:00 Gene Bolanos [facility] POCT-GLUCOSE METER 2020-04-24 00:59:00 Helio Buitrago [facility] PT/APTT 2020-04-23 23:26:00 Gene Bolanos [facility] MAGNESIUM 2020-04-23 23:26:00 Gene Bolanos [facility] COMPREHENSIVE METABOLIC 2020-04-23 23:26:00 Gene Bolanos [facility] TYPE AND SCREEN, AUTOMATED 2020-04-23 23:26:00 Gene Bolanos [facility] CBC W/PLT COUNT & AUTO 2020-04-23 23:26:00 Gene Bolanos [facility] SARS-COV2/RT-PCR ([facility] & 2020-04-02 21:50:00 [facility] REF LABS) [facility] RHYTHM STRIP - SCAN 2020-01-15 13:50:19 Provider, Default [facility] CARDIAC CATH REPORT - SCAN 2020-01-15 13:50:17 Provider, Default [facility] 2D ECHO W/ DOPPLER 2020-01-12 09:23:02 Helio Buitrago [facility] - (CW/PW/COLOR) [facility] BASIC METABOLIC PANEL (7) 2020-01-12 04:56:00 [facility] ([facility] ONLY[facility] 2020-01-12 04:55:00 Randall [facility] XR CHEST 1 VIEW 2020-01-12 03:27:00 RandallLia [facility] PORTABLE/BEDSIDE Medical [place] POCT-ACT 2020-01-11 10:51:00 [facility] COLOR-FLOW MAPPING 2020-01-11 10:00:20 Minna [facility] CONT WAVE PULSED DOPPLER 2020-01-11 10:00:20 [facility]HETER CLOSURE OF 2020-01-11 09:41:00 Helio Buitrago [facility] ASD [facility] TRANSESOPHAGEAL ECHO 2020-01-11 09:12:59 Minna [facility] ECG 12-LEAD 2020-01-11 07:34:20 Unknown, Hl7 Doctor [facility] TRANSFUSION SERVICE REPORT 2020-01-09 17:53:54 Provider, [facility] SARS-COV2/RT-PCR ([facility] & 2020-01-08 10:31:00 Helio Buitrago [facility] - REF LABS) [facility] BASIC METABOLIC PANEL (7) 2020-01-08 09:29:00 Helio Buitrago [facility] CBC (HEMOGRAM ONLY) 2020-01-08 09:29:00 Minna [facility] PROTHROMBIN TIME/INR 2020-01-08 09:29:00 Theodore [facility] TYPE AND SCREEN, AUTOMATED 2020-01-08 09:29:00 Theodore [facility] RHYTHM STRIP - SCAN 2019-12-27 12:20:32 Provider, [facility] RHYTHM STRIP - SCAN 2019-12-08 12:40:21 Provider, [facility] POCT-GLUCOSE METER 2019-12-07 08:02:00 Tito [facility] CBC (HEMOGRAM ONLY) 2019-12-07 03:47:00 Briseida Vo [facility] PROTHROMBIN TIME/INR 2019-12-07 03:47:00 Bjorn Klein [facility] APTT 2019-12-07 03:47:00 Tito, [facility] POCT-GLUCOSE METER 2019-12-06 21:10:00 Tito, [facility] APTT 2019-12-06 20:30:00 Tito, [facility] POCT-GLUCOSE METER 2019-12-06 [facility]:07[facility] 2019-12-06 13:08:00 Briseida Vo [facility] POCT-GLUCOSE METER 2019-12-06 11:33:00 Tito, [facility] POCT-GLUCOSE METER 2019-12-06 08:10:00 [facility] BASIC METABOLIC PANEL (7) 2019-12-06 05:47:00 Helio Buitrago [facility] CBC (HEMOGRAM ONLY) 2019-12-06 05:47:00 Briseida Vo [facility] PROTHROMBIN TIME/INR 2019-12-06 05:47:00 Bjorn Klein [facility] APTT 2019-12-06 05:47:00 Tito [facility] APTT 2019-12-05 23:09:00 [facility] POCT-GLUCOSE METER 2019-12-05 21:20:00 [facility] ECHOCARDIOGRAM REPORT - 2019-12-05 21:11:06 Provider, Compa SANTORO I [facility] APTT 2019-12-05 20:56:00 [facility] POCT-GLUCOSE METER 2019-12-05 16:22:00 Tania Francis [facility] POCT-GLUCOSE METER 2019-12-05 13:13:00 Tania Francis [facility] APTT 2019-12-05 12:35:00 Briseida Vo [facility] TRANSESOPHAGEAL ECHO 2019-12-05 09:26:16 Helio Buitrago [facility] POCT-GLUCOSE METER 2019-12-05 07:31:00 Tania Francis [facility] CBC (HEMOGRAM ONLY) 2019-12-05 04:33:00 Briseida Vo [facility] PROTHROMBIN TIME/INR 2019-12-05 04:33:00 Bjorn Klein [facility] APTT 2019-12-05 04:33:00 Briseida Vo [facility] POCT-GLUCOSE METER 2019-12-04 21:01:00 Tania Francis [facility] POCT-GLUCOSE METER 2019-12-04 16:46:00 Tito Tania Ann [facility] COLOR-FLOW MAPPING 2019-12-04 14:54:50 Minna Helio [facility] CONT WAVE PULSED DOPPLER 2019-12-04 14:54:50 Helio Buitrago [facility] APTT 2019-12-04 14:34:00 Briseida Vo [facility] POCT-GLUCOSE METER 2019-12-04 11:33:00 Tania Francis [facility] BASIC METABOLIC PANEL (7) 2019-12-04 07:46:00 Tania Francis [facility] POCT-GLUCOSE METER 2019-12-04 07:36:00 Tania Francis [facility] PT/APTT 2019-12-04 06:13:00 Nickolas Mcbride [facility] CBC (HEMOGRAM ONLY) 2019-12-04 06:13:00 Briseida Vo [facility] PROTHROMBIN TIME/INR 2019-12-04 06:13:00 Bjorn Klein [facility] PT/APTT 2019-12-03 23:33:00 Nicolasa [facility] POCT-GLUCOSE METER 2019-12-03 21:02:00 Nicolasa [facility] POCT-GLUCOSE METER 2019-12-03 16:55:00 Nicolasa, [facility] PT/APTT 2019-12-03 16:02:00 Nicolasa [facility] POCT-GLUCOSE METER 2019-12-03 11:26:00 Nicolasa, [facility] POCT-GLUCOSE METER 2019-12-03 07:40:00 Nicolasa, [facility] PT/APTT 2019-12-03 05:39:00 Nicolasa [facility] CBC (HEMOGRAM ONLY) 2019-12-03 05:39:00 Briseida Vo [facility] PROTHROMBIN TIME/INR 2019-12-03 05:39:00 Bjorn Klein [facility] POCT-GLUCOSE METER 2019-12-02 20:37:00 Nicolasa [facility] POCT-GLUCOSE METER 2019-12-02 16:23:00 Nicolasa, [facility] POCT-GLUCOSE METER 2019-12-02 12:04:00 Nicolasa, [facility] POCT-GLUCOSE METER 2019-12-02 09:15:00 Nicolasa, [facility] POCT-GLUCOSE METER 2019-12-02 07:40:00 Nicolasa, [facility] CBC (HEMOGRAM ONLY) 2019-12-02 05:16:00 Briseida Vo [facility] D-DIMER 2019-12-02 05:15:00 Manfred Parra [facility] PROTHROMBIN TIME/INR 2019-12-02 05:15:00 Bjorn Klein [facility] PT/APTT 2019-12-02 05:15:00 Nicolasa [facility] APTT 2019-12-01 23:35:00 Briseida Vo [facility] PERIPHERAL VASCULAR REPORT 2019-12-01 21:20:08 Provider, [facility] POCT-GLUCOSE METER 2019-12-01 20:32:00 Nicolasa [facility] APTT 2019-12-01 17:24:00 Briseida Vo [facility] POCT-GLUCOSE METER 2019-12-01 17:06:00 Nicolasa [facility] POCT-GLUCOSE METER 2019-12-01 12:39:00 Nicolasa [facility] CBC (HEMOGRAM ONLY) 2019-12-01 10:03:00 Briseida Vo [facility] APTT 2019-12-01 10:03:00 Nicolasa [facility] VENOUS DOPPLER LEGS 2019-12-01 09:59:00 Manfred Parra [facility] POCT-GLUCOSE METER 2019-12-01 07:46:00 Nicolasa [facility] APTT 2019-12-01 00:25:00 Nicolasa [facility] PT/APTT 2019-11-30 23:21:00 Nicolasa [facility] ECHOCARDIOGRAM REPORT - 2019-11-30 21:10:41 Provider, [facility] POCT-GLUCOSE METER 2019-11-30 21:03:00 Nicolasa, [facility] POCT-GLUCOSE METER 2019-11-30 17:47:00 Nicolasa [facility] 2D ECHO W/ DOPPLER 2019-11-30 16:13:17 Briseida Vo [facility] (CW/PW/COLOR) [facility] APTT 2019-11-30 15:29:00 Briseida Vo [facility] POCT-GLUCOSE METER 2019-11-30 12:30:00 Nicolasa [facility] POCT-GLUCOSE METER 2019-11-30 08:00:00 Franco Cartagena [facility] APTT 2019-11-30 03:40:00 Franco Cartagena [facility] CBC (HEMOGRAM ONLY) 2019-11-30 03:40:00 Briseida Vo [facility] MRA HEAD WITHOUT IV 2019-11-29 23:06:00 Briseida Vo [facility] MRA NECK WITHOUT IV 2019-11-29 23:06:00 Briseida Vo [facility] MR BRAIN WITHOUT IV 2019-11-29 23:06:00 Briseida Vo [facility] PLATELET COUNT 2019-11-29 21:09:00 Briseida Vo [facility] LIPID PANEL 2019-11-29 21:09:00 Briseida Vo [facility] HEMOGLOBIN A1C 2019-11-29 21:09:00 Briseida Vo [facility] APTT 2019-11-29 21:08:00 Briseida Vo [facility] TSH/FREE T4 IF INDICATED 2019-11-29 21:08:00 Briseida Vo [facility] VITAMIN B12 AND FOLATE 2019-11-29 21:08:00 Briseida Vo [facility] POCT-GLUCOSE METER 2019-11-29 19:40:00 Franco Cartagena [facility] RHYTHM STRIP - SCAN 2019-11-29 11:52:24 Provider, [facility] RHYTHM STRIP - SCAN 2019-11-27 13:31:11 Provider, [facility] VASCULAR DIAGRAM -SCAN 2019-11-27 13:31:02 Provider, [facility] POCT-GLUCOSE METER 2019-11-26 12:01:00 [facility] 2019-11-26 08:28:00 [facility] BASIC METABOLIC PANEL (7) 2019-11-26 04:39:00 Amos Tavares [facility] MAGNESIUM 2019-11-26 04:39:00 Amos Tavares [facility] PHOSPHORUS 2019-11-26 04:39:00 Amos Tavares [facility] PROTHROMBIN TIME/INR 2019-11-26 04:39:00 [facility] 2019-11-26 04:39:00 [facility] CBC (HEMOGRAM ONLY) 2019-11-26 04:39:00 Stephany-Smart, Simah [facility] POCT-GLUCOSE METER 2019-11-25 21:27:00 [facility] POCT-GLUCOSE METER 2019-11-25 18:16:00 [facility] POCT-GLUCOSE METER 2019-11-25 11:50:00 [facility] POCT-GLUCOSE METER 2019-11-25 07:59:00 [facility] BASIC METABOLIC PANEL (7) 2019-11-25 04:16:00 Amos Tavares [facility] MAGNESIUM 2019-11-25 04:16:00 GoAmos pierce Polo [facility] PHOSPHORUS 2019-11-25 04:16:00 Amos Tavares Polo [facility] PROTHROMBIN TIME/INR 2019-11-25 04:16:00 Hudefi, [facility] APTT 2019-11-25 04:16:00 [facility] (HEMO[facility] ONLY) 2019-11-25 04:16:00 [facility] PO[facility]-GLUCOSE METER 2019-11-24 21:15:00 [facility] POCT-GLUCOSE METER 2019-11-24 12:15:[address] BRAIN WITHOUT IV 2019-11-24 10:45:00 [facility] POCT-GLUCOSE METER 2019-11-24 07:58:00 [facility] BASIC [facility]OLIC PANEL (7) 2019-11-24 04:39:00 Amos Tavares [facility] MAGNESIUM 2019-11-24 04:39:00 GoAmos pierce Polo [facility] PHOSPHORUS 2019-11-24 04:39:00 [facility] PROTHROMBIN TIME/INR 2019-11-24 04:39:00 [facility] APTT 2019-11-24 04:39:00 [facility] CBC (HEMOGRAM ONLY) 2019-11-24 04:39:00 [facility] PO[facility]UCOSE METER 2019-11-23 21:27:00 [facility] ECHOCARDIOGRAM REPORT - 2019-11-23 21:11:05 Provider, [facility] POCT-GLUCOSE METER 2019-11-23 17:19:00 Coselli, [facility] POCT-GLUCOSE METER 2019-11-23 13:32:00 Shantelle [facility] ECG 12-LEAD 2019-11-23 11:50:37 Unknown, Hl7 Doctor [facility] 2D ECHO W/ DOPPLER 2019-11-23 08:55:00 Amos Tavares [facility] (CW/PW/COLOR) [facility] BASIC METABOLIC PANEL (7) 2019-11-23 03:23:00 Amos Tavares [facility] MAGNESIUM 2019-11-23 03:23:00 Amos Tavares [facility] PHOSPHORUS 2019-11-23 03:23:00 Amos Tavares [facility] PROTHROMBIN TIME/INR 2019-11-23 03:23:[address] [facility] APTT 2019-11-23 03:23:[address] [facility] CBC W/PLT COUNT & AUTO 2019-11-23 03:23:00 [facility] TRANSFUSION SERVICE REPORT 2019-11-22 17:50:20 ProviderCompa [facility] - - SCAN Scanning [facility] XR CHEST 1 VIEW 2019-11-22 11:09:00 Wally Bruno [facility] PORTABLE/BEDSIDE Medical Center BASIC METABOLIC PANEL (7) 2019-11-22 10:45:00 Wally Bruno [facility] MAGNESIUM 2019-11-22 10:45:00 KianaWally nelson [facility] PHOSPHORUS 2019-11-22 10:45:00 Wally Bruno [facility] CALCIUM, IONIZED 2019-11-22 10:45:00 KianaWally nelson [facility] PROTHROMBIN TIME/INR 2019-11-22 10:45:00 KianaWally nelson [facility] APTT 2019-11-22 10:45:00 Wally Bruno [facility] BLOOD GAS, ARTERIAL 2019-11-22 10:45:00 Wally Bruno [facility] SODIUM NA-STAT LAB 2019-11-22 10:45:00 KianaWally nelson [facility] POTASSIUM-STAT LAB 2019-11-22 10:45:00 KianaWally nelson [facility] GLUCOSE-STAT LAB 2019-11-22 10:45:00 Wally Bruno [facility] HGB/HCT (H&H) - STAT LAB 2019-11-22 10:45:00 KianaWally nleson [facility] CBC W/PLT COUNT & AUTO 2019-11-22 10:45:00 Wally Bruno [facility] POCT-ACT 2019-11-22 09:46:00 [facility] POCT-ACT 2019-11-22 09:26:00 [facility] REPLACEMENT,TRANSCATHETER 2019-11-22 08:00:[address] [facility] AORTIC VALVE [facility] (TAVR/ANN MARIE) POCT-GLUCOSE METER 2019-11-22 05:02:00 Shantelle [facility] BASIC METABOLIC PANEL (7) 2019-11-22 04:54:00 Amos Tavares [facility] MAGNESIUM 2019-11-22 04:54:00 Amos Tavares [facility] PHOSPHORUS 2019-11-22 04:54:00 Amos Tavares [facility] PROTHROMBIN TIME/INR 2019-11-22 04:54:00 Lennox [facility] APTT 2019-11-22 04:54:00 Lennox [facility] CBC W/PLT COUNT & AUTO 2019-11-22 04:54:00 Cirilo [facility] POCT-GLUCOSE METER 2019-11-21 21:07:00 Shantelle [facility] POCT-GLUCOSE METER 2019-11-21 18:26:00 Coselli, [facility] PREPARE RBC 2019-11-21 17:44:00 [facility]valdemar [facility] POCT-GLUCOSE METER 2019-11-21 11:55:00 Coselli [facility] POCT-GLUCOSE METER 2019-11-21 07:49:00 Shantelle [facility] BASIC METABOLIC PANEL (7) 2019-11-21 05:08:00 Amos Taavres [facility] MAGNESIUM 2019-11-21 05:08:00 Amos Tavares [facility] PHOSPHORUS 2019-11-21 05:08:00 Amos Tavares [facility] POCT-GLUCOSE METER 2019-11-20 21:06:00 Shantelle [facility] POCT-GLUCOSE METER 2019-11-20 17:09:00 Shantelle [facility] POCT-GLUCOSE METER 2019-11-20 12:00:00 Allieelli [facility] POCT-GLUCOSE METER 2019-11-20 07:51:00 Shantelle [facility] BASIC METABOLIC PANEL (7) 2019-11-20 05:04:00 Amos Tavares [facility] MAGNESIUM 2019-11-20 05:04:00 Amos Tavares [facility] PHOSPHORUS 2019-11-20 05:04:00 Amos Tavares [facility] POCT-GLUCOSE METER 2019-11-19 21:15:00 Coselli [facility] POCT-GLUCOSE METER 2019-11-19 17:39:00 Coselli, [facility] POCT-GLUCOSE METER 2019-11-19 12:18:00 Coselli, [facility] POCT-GLUCOSE METER 2019-11-19 07:30:00 Shantelle [facility] BASIC METABOLIC PANEL (7) 2019-11-19 05:19:00 Amos Tavares [facility] MAGNESIUM 2019-11-19 05:19:00 Amos Tavares [facility] PHOSPHORUS 2019-11-19 05:19:00 Amos Tavares [facility] POCT-GLUCOSE METER 2019-11-18 21:22:00 [facility] TRANSFUSION SERVICE REPORT 2019-11-18 17:50:44 Provider, [facility] - SCAN [facility] POCT-GLUCOSE METER 2019-11-18 17:06:00 [facility]SE METER 2019-11-18 12:10:00 [facility] POCT-GLUCOSE METER 2019-11-18 07:41:00 [facility] BASIC METABOLIC PANEL (7) 2019-11-18 05:11:00 Amos Tavares [facility] MAGNESIUM 2019-11-18 05:11:00 Amos Tavares [facility] PHOSPHORUS 2019-11-18 05:11:00 Amos Tavares [facility] PT/APTT 2019-11-18 05:11:00 Amos Tavares [facility] PROTHROMBIN TIME/INR 2019-11-18 05:11:[address] [facility] CBC (HEMOGRAM ONLY) 2019-11-18 05:11:00 Amos Tavares [facility] POCT-GLUCOSE METER 2019-11-17 21:06:00 [facility] TRANSFUSION SERVICE REPORT 2019-11-17 17:51:57 Provider, [facility] - - SCAN [facility] CARDIAC CATH REPORT - SCAN 2019-11-17 17:20:03 Provider, [facility] POCT-GLUCOSE METER 2019-11-17 11:26:00 Shantelle [facility] PREPARE RBC 2019-11-17 03:53:00 [facility] B-TYPE NATRIURETIC FACTOR 2019-11-16 10:32:00 Raven [facility] (BNP) [facility] PROTHROMBIN TIME/INR 2019-11-16 10:32:00 Carbajal [facility] COMPREHENSIVE METABOLIC 2019-11-16 10:32:00 Carbajal, Pete [facility] TYPE AND SCREEN, AUTOMATED 2019-11-16 10:32:00 Carbajal [facility] CBC W/PLT COUNT & AUTO 2019-11-16 10:32:00 Raven [facility] VASCULAR DIAGRAM -SCAN 2019-11-15 16:10:52 Provider, [facility] RHYTHM STRIP - SCAN 2019-11-06 11:52:53 Provider, [facility] REPORT OF PROCEDURE - 2019-11-06 11:52:51 Provider, [facility] ENDOSCOPY SCAN [facility] VASCULAR DIAGRAM -SCAN 2019-11-06 11:52:47 Provider, [facility] CARDIAC CATH REPORT - SCAN 2019-11-06 11:52:39 Provider, [facility] CARDIAC CATH REPORT - SCAN 2019-11-06 11:52:37 Provider, [facility] POCT-GLUCOSE METER 2019-11-04 07:40:00 AdJay liilola RDaniela [facility] POCT-GLUCOSE METER 2019-11-03 22:17:00 Brooklynn, Titilola R. [facility] POCT-GLUCOSE METER 2019-11-03 18:18:00 Brooklynn, Jude RDaniela [facility] NM BONE SCAN WHOLE BODY 2019-11-03 15:57:00 Brooklynn, Jude Ansari [facility] POCT-GLUCOSE METER 2019-11-03 11:20:00 Brooklynn, Jude RDaniela [facility] POCT-GLUCOSE METER 2019-11-03 07:51:00 Jude Overton [facility] COMPREHENSIVE METABOLIC 2019-11-03 03:56:00 Farrah Bhakta [facility] MAGNESIUM 2019-11-03 03:56:00 Farrah Bhakta [facility] PHOSPHORUS 2019-11-03 03:56:00 Farrah Bhakta [facility] CBC W/PLT COUNT & AUTO 2019-11-03 03:56:00 Farrah Bhakta [facility] POCT-GLUCOSE METER 2019-11-02 21:55:00 Jude Overton [facility] PERIPHERAL VASCULAR REPORT 2019-11-02 21:11:20 Provider, [facility] CTA ABDOMEN & PELVIS 2019-11-02 19:17:00 [facility]ST 2019-11-02 19:17:00 Minna [facility] TRANSFUSION SERVICE REPORT 2019-11-02 17:52:21 Provider, [facility] POCT-GLUCOSE METER 2019-11-02 17:30:00 Jude Overton [facility] PULMONARY FUNCTION - SCAN 2019-11-02 15:02:13 Provider, [facility] POCT-GLUCOSE METER 2019-11-02 13:16:00 Jude Overton [facility] POCT-GLUCOSE METER 2019-11-02 13:06:00 Jude Overton [facility] POCT-GLUCOSE METER 2019-11-02 10:08:00 Jude Overton [facility] CAROTID DOPPLER BILATERAL 2019-11-02 09:27:00 Helio Buitrago [facility] COMPREHENSIVE METABOLIC 2019-11-02 04:38:00 Farrah Bhakta [facility] MAGNESIUM 2019-11-02 04:38:00 Farrah Bhakta [facility] PHOSPHORUS 2019-11-02 04:38:00 [facility] CBC W/PLT COUNT & AUTO 2019-11-02 04:38:00 Farrah Bhakta [facility] POCT-GLUCOSE METER 2019-11-01 22:18:00 Jude Overton [facility] ECHOCARDIOGRAM REPORT - 2019-11-01 21:20:03 Provider, Default [facility] SCAN Scanning [facility] SPIROMETRY 2019-11-01 17:02:00 Minna [facility] 2D ECHO W/ DOPPLER 2019-11-01 13:22:01 Minna [facility] - (CW/PW/COLOR) [facility] POCT-GLUCOSE METER 2019-11-01 13:20:00 Jude Overton [facility] R & L CATH / CORONARY 2019-11-01 07:35:00 Minna [facility] - ANGIOS (+/- LV) [facility] POCT-GLUCOSE METER 2019-11-01 06:25:00 Jude Overton [facility] ABORH, MANUAL 2019-11-01 05:53:00 Sangeetha Gunderson [facility] COMPREHENSIVE METABOLIC 2019-11-01 04:44:00 Farrah Bhakta [facility] MAGNESIUM 2019-11-01 04:44:00 [facility] 2019-11-01 04:44:00 Farrah Bhakta [facility] PROTHROMBIN TIME/INR 2019-11-01 04:44:00 Minna [facility] TYPE AND SCREEN, AUTOMATED 2019-11-01 04:44:00 Minna [facility] CBC W/PLT COUNT & AUTO 2019-11-01 04:44:00 Farrah Bhakta [facility] POCT-GLUCOSE METER 2019-11-01 00:02:00 Adio, [facility] POCT-GLUCOSE METER 2019-10-31 22:01:00 Adio[facility] POCT-GLUCOSE METER 2019-10-31 17:34:00 Adio, [place] [facility] POCT-GLUCOSE METER 2019-10-31 07:52:00 Adio, [facility] POCT-GLUCOSE METER 2019-10-31 06:30:00 [facility] VENOUS DOPPLER LEGS 2019-10-30 18:00:00 Daniel Gonzalez [facility] CT CHEST PE TEST DESIGN 2019-10-30 17:29:00 Daniel Gonzalez [facility] BASIC METABOLIC PANEL (7) 2019-10-30 16:04:00 [facility] MAGNESIUM 2019-10-30 16:04:00 [facility] B-TYPE NATRIURETIC FACTOR 2019-10-30 16:04:00 [facility] (BNP) [facility] TROPONIN I 2019-10-30 16:04:00 [facility] PT/APTT 2019-10-30 16:04:00 [facility] CBC W/PLT COUNT & AUTO 2019-10-30 16:04:00 [facility] XR CHEST 1 VIEW 2019-10-30 15:16:00 [facility] PORTABLE/BEDSIDE Medical Center ECG 12-LEAD 2019-10-30 13:25:58 Unknown, Hl7 Doctor [facility] Plan of Care Planned Activity Planned Date Details Comments Source Future Scheduled 2022-11-28 Lipid panel [facility] s - Test 00:00:00 (procedure) [code = Medical Center 37772978] Future Scheduled 2020-05-30 Hemoglobin A1c [facility] - Test 00:00:00 measurement Medical Center (procedure) [code = 93674082] Future Scheduled 2020-04-30 INFLUENZA VACCINE (#1) C [...] es - Test 00:00:00 [facility] cervix (procedure) [code = 931836985] Future Scheduled 1965 DIABETIC EYE EXAM [facility] - Test 00:00:00 [code = DIABETIC EYE Medical Center EXAM] Future Scheduled [address] - Test 00:00:00 examination Medical Center (regime/therapy) [code = 326420176] Future Scheduled 1967 Urine screening for [facility] - Test 00:00:00 protein (procedure) Medical Center [code = 476258450] Future Scheduled [address] [facility] - Test 00:00:00 2-64 YEARS AT RISK (1 [facility] Center of 3 - PCV13) [code = PNEUMOCOCCAL VACCINE 2-64 YEARS AT RISK (1 of 3 - PCV13)] Future Scheduled [address] [facility] - Test 00:00:00 [facility] breast (procedure) [code = 365041035] Future Scheduled [address] [facility] - Test 00:00:00 [facility] colon (procedure) [code = 018178920] Results Test Description Test Time Test Comments Results Result Comments Source POC-Glucose meter 2020-05-03 11:16:00 Test Item Value Reference Range Interpretation Comme nts POC-Glucose Meter (test code = 131 mg/dL 70-110 H : TESTED AT [facility] [address] [address]) [facility], [facility] 30: Provider Enrollment Specialist/Techni logan ID = [id number] for INDIRA WELSH Lab Interpretation (test code = Abnormal 74141-4) [facility] [id number] 11:16:00 Test Item Value Reference Range Interpretation Comments POC-GLUCOSE METER 131 mg/dL 70-110 H : TESTED A T [facility] 6720 (BEAKER) (test code = [facility], 1538) [address]: Provider Enrollment Specialist/Techni logan ID = [id number] for INDIRA SCHERER POCT-GLUCOSE [id number] 10:07:00 Test Item Value Reference Range Interpretation Comments POC-GLUCOSE METER 117 mg/dL 70-110 H : TESTED A T [facility] 67[address] (BEAKER) (test code = [facility], 1538) 18674: Provider Enrollment Specialist/Techni logan ID = [id number] for RYAN SCHERERNDKalyan POCT-GLUCOSE [id number] 21:32:00 Test Item Value Reference Range Interpretation Comments POC-GLUCOSE METER 124 mg/dL 70-110 H : TESTED A T [facility] 67[address] (BEAKER) (test code = [facility], 1538) 06883: Provider Enrollment Specialist/Techni logan ID = [id number] for Kailyn Parks POCT-GLUCOSE [id number] 16:01:00 Test Item Value Reference Range Interpretation Comments POC-GLUCOSE METER 121 mg/dL 70-110 H : TESTED A T [facility] [address] (BEAKER) (test code = [facility], 1538) 33845: Provider Enrollment Specialist/Techni logan ID = [id number] for KELLY RUDOLPH Basic Metabolic [id number] 14:10:00 Test Item Value Reference Range Interpretation Comments Sodium (test code = 136 meq/L 510-758 9310-2) Potassium (test code = 4.2 meq/L 3.5-5.1 2823-3) Chloride (test code = 98 meq/L 98-107 2075-0) CO2 (test code = 29 meq/L 22-29 8-9) BUN (test code = 15 mg/dL 7-21 3094-0) Creatinine (test code 0.70 mg/dL 0.57-1.25 = 2160-0) Glucose (test code = 147 mg/dL 70-105 H 2345-7) Calcium (test code = 9.0 mg/dL 8.4-10.2 42410-5) EGFR (test code = 85 mL/min/1.73 [place] [address]-8) NOT ACCURATE CREATININE CLEARANCE IN PREDICTING GLOMERULAR FILTRATION RATE . ESTIMATED GFR I S NOT APPLICABLE FOR DIALYSIS PATIENTS. JANETTE (test code = JANETTE) Provider Enrollment Specialist ID - [id number] Lab Interpretation Abnormal (test code = 43042-3) [facility] METABOLIC [id number] 14:10:00 Test Item Value Reference Range Interpretation Comments SODIUM (BEAKER) 136 meq/L 136-145 (test code = 381) POTASSIUM (BEAKER) 4.2 meq/L 3.5-5.1 (test code = 379) CHLORIDE (BEAKER) 98 meq/L 98-107 (test code = 382) CO2 (BEAKER) (test 29 meq/L 22-29 code = 355) BLOOD UREA NITROGEN 15 mg/dL 7-21 (BEAKER) (test code = 354) CREATININE (BEAKER) 0.70 mg/dL 0.57-1.25 (test code = 358) GLUCOSE RANDOM 147 mg/dL 70-105 H (BEAKER) (test code = 652) CALCIUM (BEAKER) 9.0 mg/dL 8.4-10.2 (test code = 697) EGFR (BEAKER) (test 85 mL/min/1.73 ESTIMA AMANDA GFR IS code = 1092) sq m NOT ACCURATE CREATININE CLEARANCE IN PREDICTING GLOMERULAR FILTRATION RATE . ESTIMATED GFR I S NOT APPLICABLE FOR DIALYSIS PATIEN TS. Provider Enrollment Specialist ID - NTPPOCT-GLUCOSE [id number] 12:10:00 Test Item Value Reference Range Interpretation Comments POC-GLUCOSE METER 139 mg/dL 70-110 H : TESTED A T [facility] 6720 (BEAKER) (test code = [facility], 1538) 30806: Provider Enrollment Specialist/Techni logan ID = [id number] for KELLY RUDOLPH POCT-GLUCOSE [id number] 08:19:00 Test Item Value Reference Range Interpretation Comments POC-GLUCOSE METER 111 mg/dL 70-110 H : TESTED A T [facility] 67[address] (BEAKER) (test code = [facility], 1538) 42942: Provider Enrollment Specialist/Techni logan ID = [id number] for KELLY RUDOLPH POCT-GLUCOSE [id number] 21:31:00 Test Item Value Reference Range Interpretation Comments POC-GLUCOSE METER 123 mg/dL 70-110 H : TESTED A T [facility] 67[address] (BEAKER) (test code = [facility], 1538) 78012: Provider Enrollment Specialist/Techni logan ID = [id number] for CLEVELAND PANG POCT-GLUCOSE [id number] 16:36:00 Test Item Value Reference Range Interpretation Comments POC-GLUCOSE METER 98 mg/dL 70-110 : TESTED A T [facility] 67[address] (BEAKER) (test code = [facility], 1538) 29086: Provider Enrollment Specialist/Techni logan ID = [id number] for Tenzin Saldanan POCT-GLUCOSE [id number] 12:09:00 Test Item Value Reference Range Interpretation Comments POC-GLUCOSE METER 133 mg/dL 70-110 H : TESTED A T [facility] 6720 (BEAKER) (test code = [facility], 1538) 37978: Provider Enrollment Specialist/Techni logan ID = [id number] for Do gonzalez Jerel POCT-GLUCOSE [id number] 07:00:00 Test Item Value Reference Range Interpretation Comments POC-GLUCOSE METER 128 mg/dL 70-110 H : TESTED A T [facility] 6720 (BEAKER) (test code = [facility], 1538) 42833: Provider Enrollment Specialist/Techni logan ID = [id number] for Do brendaguez, Jerel CBC (Hemogram only)2020-04-30 22:31:00 Test Item Value Reference Range Interpretation Comments WBC (test code = 6690-2) 10.1 3.5- 10.5 K/L RBC (test code = 789-8) 2.70 3.93- 5.22 M/L L MCHC (test code = 786-4) 30.6 32.2- 35.5 GM/DL L Hematocrit (test code = 4544-3) 24.2 % 34.1-44.9 L MCV (test code = 787-2) 89.6 fL 79.4-94.8 MCH (test code = 785-6) 27.4 pg 25.6-32.2 RDW (test code = 788-0) 18.6 % 11.7-14.4 H Platelets (test code = 777-3) 290 150- 450 K/CU MM MPV (test code = 06425-9) 9.6 fL 9.4-12.3 nRBC (test code = 413) 0 0- 0 /100 WBC Lab Interpretation (test code = Abnormal 72397-1) [facility] (HEMOGRAM ONLY)2020-04-30 22:31:00 Test Item Value Reference Range Interpretation Comments WHITE BLOOD CELL COUNT (BEAKER) 10.1 K/ L 3.5-10.5 (test code = 775) RED BLOOD CELL COUNT (BEAKER) 2.70 M/ L 3.93-5.22 L (test code = 761) HEMOGLOBIN (BEAKER) (test code = 7.4 GM/DL 11.2-15.7 L 410) HEMATOCRIT (BEAKER) (test code = 24.2 % 34.1-44.9 L 411) MEAN CORPUSCULAR VOLUME (BEAKER) 89.6 fL 79.4-94.8 (test code = 753) MEAN CORPUSCULAR HEMOGLOBIN 27.4 pg 25.6-32.2 (BEAKER) (test code = 751) MEAN CORPUSCULAR HEMOGLOBIN CONC 30.6 GM/DL 32.2-35.5 L (BEAKER) (test code = 752) RED CELL DISTRIBUTION WIDTH 18.6 % 11.7-14.4 H (BEAKER) (test code = 412) PLATELET COUNT (BEAKER) (test 290 K/CU MM 150-450 code = 756) MEAN PLATELET VOLUME (BEAKER) 9.6 fL 9.4-12.3 (test code = 754) NUCLEATED RED BLOOD CELLS 0 /100 WBC 0-0 (BEAKER) (test code = 413) POCT-GLUCOSE [id number] 21:13:00 Test Item Value Reference Range Interpretation Comments POC-GLUCOSE METER 132 mg/dL 70-110 H : TESTED A T [facility] 6720 (BEAKER) (test code = LORELEI VENTURA, 1538) 63899: Provider Enrollment Specialist/Techni logan ID = [id number] for CLEVELAND PANG POCT-GLUCOSE [id number] 16:56:00 Test Item Value Reference Range Interpretation Comments POC-GLUCOSE METER 120 mg/dL 70-110 H : TESTED A T [facility] 6720 (BEAKER) (test code = [facility], 1538) 27723: Provider Enrollment Specialist/Techni logan ID = [id number] for [place] LLIAMS, TYNEKA POCT-GLUCOSE [id number] 12:15:00 Test Item Value Reference Range Interpretation Comments POC-GLUCOSE METER 158 mg/dL 70-110 H : TESTED A T [facility] 6720 (BEAKER) (test code = [facility], 1538) 22105: Provider Enrollment Specialist/Techni logan ID = [id number] for [place] LLIAMS, TYNEKA POCT-GLUCOSE [id number] 07:25:00 Test Item Value Reference Range Interpretation Comments POC-GLUCOSE METER 132 mg/dL 70-110 H : TESTED A T [facility] 6720 (BEAKER) (test code = [facility], 153) 18776: Provider Enrollment Specialist/Techni logan ID = [id number] for [place] LLIAMS, TYNEKA POCT-GLUCOSE [id number] 21:14:00 Test Item Value Reference Range Interpretation Comments POC-GLUCOSE METER 165 mg/dL 70-110 H : TESTED A T [facility] 6720 (BEAKER) (test code = [facility], 1538) 89130: Provider Enrollment Specialist/Techni logan ID = [id number] for Kailyn Parks POCT-GLUCOSE [id number] 16:29:00 Test Item Value Reference Range Interpretation Comments POC-GLUCOSE METER 150 mg/dL 70-110 H : TESTED A T [facility] 6720 (BEAKER) (test code = [facility], 1538) 94876: Provider Enrollment Specialist/Techni logan ID = [id number] for INDIRA SCHERER CBC (HEMOGRAM ONLY)2020-04-29 14:17:00 Test Item Value Reference Range Interpretation Comments WHITE BLOOD CELL COUNT (BEAKER) 8.2 K/ L 3.5-10.5 (test code = 775) RED BLOOD CELL COUNT (BEAKER) 3.11 M/ L 3.93-5.22 L (test code = 761) HEMOGLOBIN (BEAKER) (test code = 8.6 GM/DL 11.2-15.7 L 410) HEMATOCRIT (BEAKER) (test code = 28.8 % 34.1-44.9 L 411) MEAN CORPUSCULAR VOLUME (BEAKER) 92.6 fL 79.4-94.8 (test code = 753) MEAN CORPUSCULAR HEMOGLOBIN 27.7 pg 25.6-32.2 (BEAKER) (test code = 751) MEAN CORPUSCULAR HEMOGLOBIN CONC 29.9 GM/DL 32.2-35.5 L (BEAKER) (test code = 752) RED CELL DISTRIBUTION WIDTH 18.8 % 11.7-14.4 H (BEAKER) (test code = 412) PLATELET COUNT (BEAKER) (test 273 K/CU MM 150-450 code = 756) MEAN PLATELET VOLUME (BEAKER) 9.5 fL 9.4-12.3 (test code = 754) NUCLEATED RED BLOOD CELLS 0 /100 WBC 0-0 (BEAKER) (test code = 413) POCT-GLUCOSE [id number] 12:18:00 Test Item Value Reference Range Interpretation Comments POC-GLUCOSE METER 82 mg/dL 70-110 : TESTED A T [facility] 6720 ([facility]) (test code = LORELEI [place], 1538) 15942: Provider Enrollment Specialist/Techni logan ID = [id number] for INDIRA MOODY SARS-CoV2/RT-PCR (Asymptomatic ONLY)2020-04-29 10:54:00 Test Item Value Reference Range Interpretation Comments SARS-COV2/RT-PCR Negative Not Detected, (test code = Negative, See 53211-4) external report for linked test SARS-COV-2 [facility] PERFORMING LAB (test code = 88352-3) JANETTE (test code = Negative result for this JANETTE) test determines that SARS-CoV-2 RNA was not [...] of the Act. Fact Sheet for Healthcare Providers:https://www.ClearDATA/sites/default/f cheryl/product/documents/F act_Sheet_HC_Providers_L vcf_QOUN-VjV-7.pdf Fact Sheet for Healthcare Patients:https://www.wireWAX/sites/default/fi les/product/documents/Fa ct_Sheet_Patients_Lyra_S ARS-CoV-2.pdf Performing Laboratory:[place] [address] [address]OV2/RT-PCR ([facility])2020-04-29 10:54:00 Test Item Value Reference Range Interpretation Comments SARS-COV2/RT-PCR (test Negative Not Detected, Negative, code = 7665674) See external report for linked test SARS-COV-2 PERFORMING LAB [facility] (test code = 0912462) Negative result for this test determines that [...] 564(g) of the Act.Fact Sheet for Healthcare Providers:https://www.Tribotek.Tapas Media/sites/default/files/product/documents/Fact_Shee y_YJ_Tqahkmgdq_Xldo_LOEJ-HfG-8.pdfFact Sheet for Healthcare Patients:https://www.Tribotek.[employer]/sites/default/files/product/ documents/Cqzf_Jirht_Cfzycogh_Vtil_DRNM-ZvV-1.pdfPerforming Laboratory:[facility], [place] [address]Fcklsgg Leuko-Red RBC 2020-04-29 10:07:00 Test Item Value Reference Range Interpretation Comments CROSSMATCH (test code = 2264) COMPATIBLE Unit ABO (test code = O Pos 7357639) UNIT NUMBER (test code = E114091397489 934-0) Status (test code = 1505167) READY Blood Bank Product (test code RED BLOOD CELLS = 2263) PRODUCT CODE (test code = Q6109X28 933-2) [facility] [id number] 07:28:00 Test Item Value Reference Range Interpretation Comments POC-GLUCOSE METER 107 mg/dL 70-110 : TESTED A T [facility] 6720 (BEAKER) (test code = LORELEI Jordan [facility], 1538) 86350: Provider Enrollment Specialist/Techni logan ID = [id number] for INDIRA SCHERER CBC with platelet count + automated [id number] 06:02:00 Test Item Value Reference Range Interpretation Comments WBC (test code = 6690-2) 7.4 3.5- 10.5 K/L RBC (test code = 789-8) 2.81 3.93- 5.22 M/L L MCHC (test code = 786-4) 30.1 32.2- 35.5 GM/DL L Hematocrit (test code = 4544-3) 25.6 % 34.1-44.9 L MCV (test code = 787-2) 91.1 fL 79.4-94.8 MCH (test code = 785-6) 27.4 pg 25.6-32.2 RDW (test code = 788-0) 18.8 % 11.7-14.4 H Platelets (test code = 777-3) 223 150- 450 K/CU MM MPV (test code = 38461-7) 9.3 fL 9.4-12.3 L nRBC (test code = 413) 0 0- 0 /100 WBC % Neutros (test code = 429) 80 % % Lymphs (test code = 430) 7 % % Monos (test code = 431) 10 % % Eos (test code = 432) 2 % % Baso (test code = 437) 0 % # Neutros (test code = 670) 5.95 1.56- 6.13 K/L # Lymphs (test code = 414) 0.53 1.18- 3.74 K/L L # Monos (test code = 415) 0.75 0.24- 0.36 K/L H # Eos (test code = 416) 0.14 0.04- 0.36 K/L # Baso (test code = 417) 0.01 0.01- 0.08 K/L Immature Granulocytes-Relative 1 % 0-1 (test code = 2801) Lab Interpretation (test code = Abnormal 51893-4) [facility] & AUTO [id number] 06:02:00 Test Item Value Reference Range Interpretation Comments WHITE BLOOD CELL COUNT (BEAKER) 7.4 K/ L 3.5-10.5 (test code = 775) RED BLOOD CELL COUNT (BEAKER) 2.81 M/ L 3.93-5.22 L (test code = 761) HEMOGLOBIN (BEAKER) (test code = 7.7 GM/DL 11.2-15.7 L 410) HEMATOCRIT (BEAKER) (test code = 25.6 % 34.1-44.9 L 411) MEAN CORPUSCULAR VOLUME (BEAKER) 91.1 fL 79.4-94.8 (test code = 753) MEAN CORPUSCULAR HEMOGLOBIN 27.4 pg 25.6-32.2 (BEAKER) (test code = 751) MEAN CORPUSCULAR HEMOGLOBIN CONC 30.1 GM/DL 32.2-35.5 L (BEAKER) (test code = 752) RED CELL DISTRIBUTION WIDTH 18.8 % 11.7-14.4 H (BEAKER) (test code = 412) PLATELET COUNT (BEAKER) (test 223 K/CU MM 150-450 code = 756) MEAN [...] (test code = 437) NEUTROPHILS ABSOLUTE COUNT 5.95 K/ L 1.56-6.13 (BEAKER) (test code = 670) LYMPHOCYTES ABSOLUTE COUNT 0.53 K/ L 1.18-3.74 L (BEAKER) (test code = 414) MONOCYTES ABSOLUTE COUNT (BEAKER) 0.75 K/ L 0.24-0.36 H (test code = 415) EOSINOPHILS ABSOLUTE COUNT 0.14 K/ L 0.04-0.36 (BEAKER) (test code = 416) BASOPHILS ABSOLUTE COUNT (BEAKER) 0.01 K/ L 0.01-0.08 (test code = 417) IMMATURE GRANULOCYTES-RELATIVE 1 % 0-1 PERCENT (BEAKER) (test code = 2801) BASIC METABOLIC [id number] 05:47:00 Test Item Value Reference Range Interpretation Comments SODIUM (BEAKER) 136 meq/L 136-145 (test code = 381) POTASSIUM (BEAKER) 3.3 meq/L 3.5-5.1 L (test code = 379) CHLORIDE (BEAKER) 100 meq/L 98-107 (test code = 382) CO2 (BEAKER) (test 29 meq/L 22-29 code = 355) BLOOD UREA NITROGEN 8 mg/dL 7-21 (BEAKER) (test code = 354) [...] S NOT APPLICABLE FOR DIALYSIS PATIEN TS. Provider Enrollment Specialist ID - PIAYA LPT/[id number] 05:37:00 Test Item Value Reference Range Interpretation Comments Protime (test code = 14.9 11.9- 14.2 H 5902-2) seconds INR (test code = 1.20 <=5.90 6301-6) PTT (test code = 44.7 22.5- 36.0 H 58849-0) seconds JANETTE (test code = JANETTE) Effective 01/25/2019: PT Reference Range ChangeNew: 11.9-14.2 Previous: 11.7-14.7 RECOMMENDED COUMADIN/WARFARIN INR THERAPY RANGESSTANDARD DOSE: 2.0-3.0 Includes: PROPHYLAXIS for venous thrombosis, systemic embolization; TREATMENT for venous thrombosis and/or pulmonary embolus.HIGH RISK: Target INR is 2.5-3.5 for patients wiht mechanical heart valves. Lab Interpretation Abnormal (test code = 90322-7) [facility] HospitalPT/[id number] 05:37:00 Test Item Value Reference Range Interpretation Comments PROTIME (BEAKER) (test code = 14.9 seconds 11.9-14.2 H 759) INR (BEAKER) (test code = 370) 1.20 <=5.90 PARTIAL THROMBOPLASTIN TIME 44.7 seconds 22.5-36.0 H (BEAKER) (test code = 760) Effective 01/25/2019: PT Reference Range ChangeNew: 11.9-14.2 Previous: 11.7- 14.7RECOMMENDED COUMADIN/WARFARIN INR THERAPY RANGESSTANDARD DOSE: 2.0-3.0 Includes: PROPHYLAXIS for venous thrombosis, systemic embolization; TREATMENT for venous thrombosis and/or pulmonary embolus.HIGH RISK: Target INR is2.5-3.5 for patients wiht mechanical heart valves.Type and screen, [id number] 05:22:00 Test Item Value Reference Range Interpretation Comments ABO/RH AUTOMATED (BEAKER) (test O POSITIVE code = 2260) Ab Scrn (test code = 890-4) NEGATIVE [facility] [id number] 21:23:00 Test Item Value Reference Range Interpretation Comments POC-GLUCOSE METER 185 mg/dL 70-110 H : TESTED A T [facility] 6720 (BEAKER) (test code = [employer] [facility], 1538) 18638: Provider Enrollment Specialist/Techni logan ID = [id number] for Kailyn Parks POCT-GLUCOSE [id number] 16:39:00 Test Item Value Reference Range Interpretation Comments POC-GLUCOSE METER 110 mg/dL 70-110 : TESTED A T [facility] 6720 (BEAKER) (test code = [facility], 1538) 13552: Provider Enrollment Specialist/Techni logan ID = [id number] for HU NTER, HIWITHA POCT-GLUCOSE [id number] 11:50:00 Test Item Value Reference Range Interpretation Comments POC-GLUCOSE METER 172 mg/dL 70-110 H : TESTED A T [facility] 6720 (BEAKER) (test code = [employer] [facility], 1538) 16085: Provider Enrollment Specialist/Techni logan ID = [id number] for HU NTER, HIWITHA CT, CHEST, WITH [id number] 08:44:00Pl include adrenalsUnlisted Reason for Exam - Click Yes and Enter Reason Below->NoFINAL REPORT TECHNIQUE: CT scan of the chest WITH intravenous contrast. Dose m odulation, iterative reconstruction, and/or weight-based adjustment of the mA/kV was utilized to reduce the radiation dose to as low as reasonably achievable. INDICATION: Lung cancer, non-small cell, staging. COMPARISON: Outside facility CT from 04/23/2020. FINDINGS: LINES/TUBES: Right chest port with tip at the superior cavoatrial junction. LUNGS AND AIRWAYS: Moderate centrilobular emphysema. A mass in the right upper lobe measures 5.5 x 5.2 cm. A satellite nodule in the right upper lobe measures 0.7 cm on axial image 23. Left basilar atelectasis. PLEURA: Small left pleural effusion. HEART AND MEDIASTINUM: The visualized thyroid gland is normal. No significant mediastinal, hilar, or axillary lymphadenopathy. Interval decrease in size of the pericardial effusion with a small residual pericardialeffusion and a thick, enhancing wall. Prior transarterial aortic valve replacement. There appears jin an interatrial occlusion device. At least moderate calcification of the left anterior descending and left circumflex coronary arteries. SOFT TISSUES AND BONES: A fat density mass of the right lower chest wall measures 5 cm and is consistent with a lipoma. Rightward convex curvature of the thoracic spine. Moderate degenerative changes of the partially visualized cervical spine. The irregularity of a partially visualized inferior endplate and the lumbar spine is indeterminate but likely degenerative and similar to the CT from 11/02/2019 There is scalloping of the undersurface of the right anterior second rib with likely underlying fracture. UPPER ABDOMEN: Four masses in the liver are most concerning for metastases and measure up to 4.7 cm. A mass in the right kidney is hypoenhancing, appears invasive, and measures 6.4 cm. There is irregularity of the wall is superior mesenteric artery. IMPRESSION: 1.A right upper lobe lung mass measures 5.5 x 5.2 cm and has an adjacent 0.7 cm satellite nodule which is consistent with a metastasis in the same lobe. Additional metastases are located in the liver. The right renal mass is invasive, has increased in size, and also most consistent with a metastasisfrom the lung cancer. 2.The right upper lobe lung mass likely involves the right anterior second ribwith an underlying pathologic fracture. 3.The pericardial effusion has decreased in size and is now small. The enhancing pericardial wall could be due to pericardial spread of tumor, although indeterminate. 4.Small left pleural effusion with adjacent atelectasis. 5.Moderate pulmonary emphysema. 6.Irregularity of the wall of the superior mesenteric artery with at least moderate narrowing, most likely due to atherosclerosis. Signed: Naomi Callahan MDReport Verified Date/Time: 04/28/2020 08:44:31 Reading Location: [facility] C013Y CT Body Reading Room CT chest with IV contrast 2020-04-28 08:44:00Interface, External Ris In - 04/28/2020 8:47 AM CDTFINAL REPORT TECHNIQUE: CT scan of the chest WITH intravenous contrast. Dose modulation, iterative reconstruction, and/or weight-based adjustment of the mA/kV was utilized to reduce the radiation dose to as low as reasonably achievable. INDICATION: Lung cancer, non-small cell, staging. COMPARISON: Outside facility CT from 04/23/2020. FINDINGS: LINES/TUBES: Right chest port with tip at the superior cavoatrial junction. LUNGS AND AIRWAYS: Moderate centrilobular emphysema. A mass in the right upper lobe measures 5.5 x 5.2 cm. A satellite nodule in the right upper lobe measures 0.7 cm on axial image 23. Left basilar atelectasis. PLEURA: Small left pleural effusion. HEART AND MEDIASTINUM: The visualized thyroid gland is normal. No significant mediastinal, hilar, or axillary lymphadenopathy. Interval decrease in size of the pericardial effusion with a small residual pericardial effusion and a thick, enhancing wall. Prior transarterial aortic valve replacement. There appears to be an interatrial occlusion device. At least moderate calcification of the left anterior descending and left circumflex coronary arteries. SOFT TISSUES AND BONES: A fat density mass of the right lower chest wall measures 5 cm and is consistent with alipoma. Rightward convex curvature of the thoracic spine. Moderate degenerative changes of the partially visualized cervical spine. The irregularity of a partially visualized inferior endplate and the lumbar spine is indeterminate but likely degenerative and similar to the CT from 11/02/2019 There is scalloping of the undersurface of the right anterior second rib with likely underlying fracture. UPPER ABDOMEN: Four masses in the liver are most concerning for metastases and measure up to 4.7 cm. A massin the right kidney is hypoenhancing, appears invasive, and measures 6.4 cm. There is irregularity of the wall is superior mesenteric artery. IMPRESSION: 1.A right upper lobe lung mass measures 5.5 x 5.2 cm and has an adjacent 0.7 cm satellite nodule which is consistent with a metastasis in the same lobe. Additional metastases are located in the liver. The right renal mass is invasive, has increasedin size, and also most consistent with a metastasis from the lung cancer. 2.The right upper lobe lung mass likely involves the right anterior second rib with an underlying pathologic fracture. 3.The pericardial effusion has decreased in size and is now small. The enhancing pericardial wall could be due to pericardial spread of tumor, although indeterminate. 4.Small left pleural effusion with adjacent atelectasis. 5.Moderate pulmonary emphysema. 6.Irregularity of the wall of the superior mesenteric artery with at least moderate narrowing, most likely due to atherosclerosis. Signed: Naomi Callahan MDReport Verified Date/Time: 04/28/2020 08:44:31 Reading Location: [address] Body Reading [facility] [id number] 06:56:00 Test Item Value Reference Range Interpretation Comments POC-GLUCOSE METER 136 mg/dL 70-110 H : TESTED A T [facility] 6720 (BEAKER) (test code = LORELEI Jordan [facility], 1538) 81544: Provider Enrollment Specialist/Techni logan ID = [id number] for RAJESH MIMS CBC (HEMOGRAM ONLY)2020-04-28 04:26:00 Test Item Value Reference Range Interpretation Comments WHITE BLOOD CELL COUNT (BEAKER) 9.3 K/ L 3.5-10.5 (test code = 775) RED BLOOD CELL COUNT (BEAKER) 2.88 M/ L 3.93-5.22 L (test code = 761) HEMOGLOBIN (BEAKER) (test code = 7.9 GM/DL 11.2-15.7 L 410) HEMATOCRIT (BEAKER) (test code = 26.0 % 34.1-44.9 L 411) MEAN CORPUSCULAR VOLUME (BEAKER) 90.3 fL 79.4-94.8 (test code = 753) MEAN CORPUSCULAR HEMOGLOBIN 27.4 pg 25.6-32.2 (BEAKER) (test code = 751) MEAN CORPUSCULAR HEMOGLOBIN CONC 30.4 GM/DL 32.2-35.5 L (BEAKER) (test code = 752) RED CELL DISTRIBUTION WIDTH 19.1 % 11.7-14.4 H (BEAKER) (test code = 412) PLATELET COUNT (BEAKER) (test 200 K/CU MM 150-450 code = 756) MEAN PLATELET VOLUME (BEAKER) 8.9 fL 9.4-12.3 L (test code = 754) NUCLEATED RED BLOOD CELLS 0 /100 WBC 0-0 (BEAKER) (test code = 413) POCT-GLUCOSE [id number] 21:07:00 Test Item Value Reference Range Interpretation Comments POC-GLUCOSE METER 137 mg/dL 70-110 H : TESTED A T [facility] 6720 (BEAKER) (test code = [facility], 1538) 10655: Provider Enrollment Specialist/Techni logan ID = [id number] for GO NZALES III, AMANDA POCT-GLUCOSE [id number] 16:14:00 Test Item Value Reference Range Interpretation Comments POC-GLUCOSE METER 111 mg/dL 70-110 H : TESTED A T [facility] 6720 (BEAKER) (test code = [facility], 1538) 32376: Provider Enrollment Specialist/Techni logan ID = [id number] for ZA VALA, ERANDY POCT-GLUCOSE [id number] 11:39:00 Test Item Value Reference Range Interpretation Comments POC-GLUCOSE METER 183 mg/dL 70-110 H : TESTED A T [facility] 6720 (BEAKER) (test code = [facility], 1538) 40936: Provider Enrollment Specialist/Techni logan ID = [id number] for ZA VALA, ERANDY POCT-GLUCOSE [id number] 07:20:00 Test Item Value Reference Range Interpretation Comments POC-GLUCOSE METER 119 mg/dL 70-110 H : TESTED A T [facility] 6720 (BEAKER) (test code = [facility], 1538) 83119: Provider Enrollment Specialist/Techni logan ID = [id number] for ZA VALA, ERANDY POCT-GLUCOSE [id number] 21:07:00 Test Item Value Reference Range Interpretation Comments POC-GLUCOSE METER 167 mg/dL 70-110 H : TESTED Chandan Mac [facility] 6720 (MIKE) (test code = [facility] [place], 1538) 80320: Provider Enrollment Specialist/Techni logan ID = [id number] for GO NZALES III, AMANDA ARTURO's with PT and DP doppler [id number] 17:25:25Ejection FractionSLEH ECHO HEARTLAB MKCKESSON CPACSRight Impression1. The posterior tibial and dorsal is pedis arteries are patent with normaltriphasic Doppler waveforms.2. The PT pressure is 146 mmHg with an ARTURO of 1.13 and the DP pressure is155 mmHg with an ARTURO of 1.20, within normal range.3. The great toe pressure is 71 mmHg with an abnormal TBI of 0.55.4. The digits have adequate flow by PPG waveforms.Left Impression1. The posterior tibial artery has no audible Doppler waveform and thedorsalis pedis artery is patent with monophasic Doppler waveforms.2. The PT pressure is 0 mmHg with an ARTURO of 0 and the DP pressure is 59 mmHgwith an ARTURO of 0.46, in the severe obstruction range.3. The TBI is not obtained due to absence of flow.4. The first, second and fourth digits have no flow and the third and fifthdigits have decreased flow by PPG waveforms. Conclusions Summary Arterial pressures and Doppler waveforms were performed bilaterally. Adequate Doppler waveforms were obtained. Doppler waveformswere triphasic on the right. The left posterior [...] in cm Interface, External Ris In - 04/26/2020 5:25 PM CDTPV LAB - Lower Extremity Arterial Procedure Demographics Patient Name QUIANA VALLADARES Date of Study 04/26/2020 KARINA Age 64 Visit Number [id number] Gender Female Accession Number [id number] Date of 1955 Referring Zhane M Room Number 1005 Physician Nai Manager Customer Ena Suggs Interpreting Christa Carter T Physician ProcedureType of Study: Extremities Arteries: Lower Extremity Arterial Procedure, ARTERIAL (ARTURO'S W/DOPPLER) ONLY. Indications for Study:S/P revascularization .Patient Status:STAT.Study Location:Vascular Lab.Technical Quality:Adequate visualization. - Results were reported to:Dr. Marcum @ 3510.Risk FactorsHistory of Disease+----- +----+ +!Diagnosis !Date!Comments !+ +----+ +!History/Risk Factors: ! !Cancer, HTN, DM !+---- +----+ +!Other ! !Acid Reflux, Asthma, Heart Cath !+ +----+ +ImpressionsRight Impression1. The posterior tibial and dorsalis pedis arteries are patent with normaltriphasic Doppler waveforms.2. The PT pressure is 146 mmHg with an ARTURO of 1.13 and the DP pressure is155 mmHg with an ARTURO of 1.20, within normal range.3. The great toe pressure is 71 mmHg with an abnormal TBI of 0.55.4. The digits have adequate flow by PPG waveforms.Left Impression1. The posterior tibial artery has no audible Doppler waveform and thedorsalis pedis artery is patent with monophasic Doppler waveforms.2. The PT pressure is 0 mmHg with an ARTURO of 0 and the DP pressureis 59 mmHgwith an ARTURO of 0.46, in the severe obstruction range.3. The TBI is not obtained due to absence of flow.4. The first, second and fourth digits have no flow and the third and fifthdigits have decreased flow by PPG waveforms. Conclusions Summary Arterial pressures and Doppler waveforms [...] was in the severe obstruction range. The rightTBI was abnormal. The left TBI was not obtained due to absence of flow. The right digits had adequate flow by PPG waveforms. The left first, second and fourth digits had no flow and the third and fifthdigits had decreased flow by PPG waveforms. Signature Velocities are measured in cm/s ; Diameters are measured in cm[facility] POCT-GLUCOSE [id number] 16:33:00 Test Item Value Reference Range Interpretation Comments POC-GLUCOSE METER 144 mg/dL 70-110 H : TESTED A T [facility] 6720 ([employer]ry[employer]) (test code = [employer] [facility], 1538) 27830: Provider Enrollment Specialist/Techni logan ID = [id number] for INDRIA SCHERER POCT-GLUCOSE [id number] 11:09:00 Test Item Value Reference Range Interpretation Comments POC-GLUCOSE METER 146 mg/dL 70-110 H : TESTED A T [facility] 6720 (D[employer]ad) (test code = [employer] [facility], 1538) 75556: Provider Enrollment Specialist/Techni logan ID = [id number] for INDIRA SCHERER MR, BRAIN, [id number] 08:53:00Unlisted Reason for Exam - Click Yes and Enter Reason Below->YesUnlisted Reason for Exam->brain lesion on ct head, history lung cancer and rectal cancerAnesthesia:->NoneFINAL REPORT MRI Brain with and without contrast Clinical History: Brain mass or lesion, follow-upbrain lesion on ct head, history lung cancer and rectal cancer Technique: MRI ofthe brain utilizing axial T1, T2, FLAIR, GRE, DWI, sagittal T1; and postgadolinium axial, sagittal, and coronal T1-weighted images. Comparisons: CT 04/25/2020, MRI 11/29/2019 Findings: There is an 8 mm ring- enhancing lesion in the right midfrontal lobe (axial image 18), corresponding to the CT abnormality. There is a suspected 7 mm ring-enhancing lesion in the medial left cerebellum disease sagittal image 14), although it lies within an area of phase encoding artifact. There is a 2 mm enhancing lesion in the left posterior cerebellum (axial image 6). The right midfrontal and the left posterior cerebellar lesion demonstrated corresponding FLAIR signal abnormality. There are a few new foci of FLAIR signal abnormality in the bilateral cerebral hemispheres and possibly in the cerebellum, without corresponding abnormal enhancement. There is no evidence of acute infarct or hemorrhage. 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 There is generalized parenchymal volume loss without hydrocephalus or midline shift. There are no extra-axial fluid collections. The craniocervical junction is preserved. The major intracranial flow-voids appear patent. The calvarial marrow signal is heterogeneous with a few suspected subcentimeter foci of enhancement. IMPRESSION: At least one ring-enhancing lesion in the supratentorium and one or two in the posterior fossa, compatible with metastatic disease. A few new foci of nonenhancing FLAIR signal abnormality in the bilateral cerebral hemispheres and possibly the cerebellum may represent nonenhancing metastases. Alternatively, they could represent areas of ischemic or nonischemic demyelination. 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 Signed: Sabiha Iyer MDReport Verified Date/Time: 04/26/2020 08:53:19 Reading Location: [address] Neuro Reading Room MR brain without & with IV contrast 2020-04-26 08:53:00Interface, External Ris In - 04/26/2020 8:56 AM CDTFINAL REPORT MRI Brain with and without contrast Clinical History: Brain mass or lesion, follow-upbrain lesion on ct head, history lung cancer and rectal cancer Technique: MRI of the brain utilizing axial T1, T2, FLAIR, GRE, DWI, sagittal T1; and postgadolinium axial, sagittal, and coronal T1-weighted images. Comparisons: CT 04/25/2020, MRI 11/29/2019 Findings: There is an 8 mm ring-enhancing lesion in the right midfrontal lobe (axial image 18), corresponding to the CT abnormality. There is a suspected 7 mm ring-enhancing lesion in the medial left cerebellum disease sagittal image 14), although it lies within an area of phase encoding artifact. There is a 2 mm enhancing lesion in the left posterior cerebellum (axial image 6).The right midfrontal and the left posterior cerebellar lesion demonstrated corresponding FLAIR signal abnormality. There are a few new foci of FLAIR signal abnormality in the bilateral cerebral hemispheres and possibly in the cerebellum, without corresponding abnormal enhancement. There is no evidence of acute infarct or hemorrhage. 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 There is generalized parenchymal volume loss without hydrocephalus or midline shift. There areno extra-axial fluid collections. The craniocervical junction is preserved. The major intracranial fl ow-voids appear patent. The calvarial marrow signal is heterogeneous with a few suspected subcentimeter foci of enhancement. IMPRESSION: At least one ring- enhancing lesion in the supratentorium and one or two in the posterior fossa, compatible with metastatic disease. A few new foci of nonenhancing FLAIR signal abnormality in the bilateral cerebral hemispheres and possibly the cerebellum may represent nonenhancing metastases. Alternatively, they could represent areas of ischemic or nonischemic demyelination. 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 Signed: Sabiha Iyer MDReport Verified Date/Time: 04/26/2020 08:53:19 Reading Location: [address] Neuro [facility], [id number] 07:34:47Ejection FractionSEASTERN [facility] Left Impression1. The common femoral, profunda femoral, superficial femoral and proximalpopliteal arteries are patent with low velocity monophasic Dopplerwaveforms.2. The mid to distal popliteal, posterior tibial and peroneal arteries areoccluded.3. The anterior tibial artery is patent with low velocity monophasic Dopplerwaveforms. Conclusions Summary Arterial duplex was performed on the left lower extremity. The arteries were small in caliber. There was monophasic Doppler waveforms in the common femoral artery, suggestive of a more proximal obstruction. The profunda femoral, superficial femoral and proximal popliteal arteries were patent. Themid to distal popliteal, posterior tibial and peroneal arteries were occluded. The anterior tibial artery was patent. Signature Velocities are measured in cm/s ; Diameters are measured in cm LE Duplex Measurements Right Left + + + + + + +- + + + !Location ! !PSV !EDV !Waveform ! !PSV !EDV !Waveform ! + + + + + + + + + + !Mid Common Femoral ! !31.5 ! ! ! + + + +--------- ---------+ + !Prox PFA ! !38.3 ! ! ! + + + + + + !Prox SFA ! !21.1 ! ! ! + + + + + + !Mid SFA ! !38.8 ! ! ! + + + + + + !Dist SFA ! !21.6 ! ! ! + + + + + + !Prox Popliteal ! !13.8 ! ! ! + + + + + + !Mid Popliteal ! !0 ! ! ! + + + -------+ + + !Dist Popliteal ! !0! ! ! + + + +------ + + !Prox LEGAL PARAPROFESSIONAL! !0 ! ! ! + + + + + + !Mid LEGAL PARAPROFESSIONAL ! !0 ! ! ! + + + + + + !Dist LEGAL PARAPROFESSIONAL ! !0 ! ! ! + + + + + + !Prox LUL ! !14.4 ! ! ! + + + + + + !Mid LUL ! !12.1 ! ! ! + + + + + + !Dist LUL ! !13.2 ! ! ! + + +--------- + + + !Prox Peroneal ! !0 ! ! ! + + + +--- + + !Mid Peroneal ! !0 ! ! ! + + + + + + !Dist Peroneal ! !0 ! ! ! + + + + + + Interface, External Ris In - 04/26/2020 7:34 AM CDTPV LAB - Lower Extremity Arterial Du plex Demographics Patient Name QUIANA VALLADARES Date of Study 04/24/2020 KARINA Age 64 Visit Number [id number] Gender Female Accession Number [id number] Date of 1955 Referring [facility] Room Number 1005 Physician Rodrigo Manager Customer Ena Suggs T Interpreting Christa Carter, Physician ProcedureType of Study: Extremities Arteries: Lower Extremities Arterial Duplex, ARTERIAL DOPPLER LEG, LEFT. Indications for Study:Critical limb ischemia.Patient Status:STAT.Study Loc ation:Portable.Technical Quality:Adequate visualization. - Results were reported to:Dr. Hunter @ 2054.Risk FactorsHistory of Disease+ +----+ --------+!Diagnosis !Date!Comments !+ +----+ +!History/Risk Factors: ! !Cancer, HTN, DM !+ +----+ ---------+!Other ! !Acid Reflux, Asthma, Heart Cath !+ +----+ +ImpressionsLeft Impression1. The commonfemoral, profunda femoral, superficial femoral and proximalpopliteal arteries are patent with low velocity monophasic Dopplerwaveforms.2. The mid to distal popliteal, posterior tibial and peroneal arteries areoccluded.3. The anterior tibial artery is patent with low velocity monophasic Dopplerwaveforms. Conclusions Summary Arterial duplex was performed on the left lower extremity. The arteries weresmall in caliber. There was monophasic Doppler waveforms in the common femoral artery, suggestive ofa more proximal obstruction. The profunda femoral, superficial femoral and proximal popliteal arteries were patent. The mid to distal popliteal, posterior tibial and peroneal arteries were occluded. The anterior tibial artery was patent. Signature Velocities are measured in cm/s ; Diameters are measured in cmLE Duplex Measurements Right Left + + + + + + + + + + !Location ! !PSV !EDV !Waveform ! !PSV !EDV !Waveform ! + + + + + + + + + + !Mid Common Femoral ! !31.5 ! ! ! + + + -------+ + + !Prox PFA ! !38.3! ! ! + + + +------ + + !Prox SFA! !21.1 ! ! ! + + + [...] ! !0 ! ! ! + + +--------- + + + !Prox LEGAL PARAPROFESSIONAL ! !0 ! ! ! + + + +--- + + !Mid LEGAL PARAPROFESSIONAL ! !0 ! ! ! + + + + + + !Dist LEGAL PARAPROFESSIONAL ! !0 ! ! ! + + + + + + !Prox LUL ! !14.4 ! ! ! + + + + + + !Mid LUL ! !12.1 ! ! ! +------- + + + + + !Dist LUL ! !13.2 ! ! ! + + + + + + !Prox Peroneal !!0 ! ! ! + + + + + + !Mid Peroneal ! !0 ! ! ! + + + + + + !Dist Peroneal ! !0 ! ! ! + + + + + +[facility] [id number] 07:11:00 Test Item Value Reference Range Interpretation Comments POC-GLUCOSE METER 161 mg/dL 70-110 H : TESTED A T [place] [address] (BEAKER) (test code = [facility], 1538) [address]: Provider Enrollment Specialist/Techni logan ID = [id number] for INDIRA SCHERER POC ACTIVATED CLOTTING [id number] 06:20:00 Test Item Value Reference Range Interpretation Comments Activated Clotting Time 246 sec : 74 -137 seconds, (test code = 441) Baseline: TESTED AT [address], [address]: Provider Enrollment Specialist/Techni logan ID = [id number] for JERAMY GUARDADO [id number] 06:20:00 Test Item Value Reference Range Interpretation Comments ACTIVATED CLOTTING TIME 246 sec : 74 -137 seconds, (BEAKER) (test code = Baseli ne: TESTED AT 441) [facility] [address] [place] [address], [address]: Provider Enrollment Specialist/Techni logan ID = [id number] for JERAMY GUARDADO [id number] 06:20:00 Test Item Value Reference Range Interpretation Comments ACTIVATED CLOTTING TIME 252 sec : 74 -137 seconds, (BEAKER) (test code = Baseli ne: TESTED AT 441) [address], [address]: Provider Enrollment Specialist/Techni logan ID = [id number] for NG DEMETRI KIM Carcinoembryonic Antigen (CEA)2020-04-26 06:03:00 Test Item Value Reference Range Interpretation Comments CEA, SERUM (test code = 2.7 ng/mL 0-5 9-6) AJNETTE (test code = JANETTE) Provider Enrollment Specialist ASIA Chiu Lab Interpretation (test Normal code = 00247-5) [facility] (CEA)2020-04-26 06:03:00 Test Item Value Reference Range Interpretation Comments CARCINOEMBRYONIC ANTIGEN (BEAKER) 2.7 ng/mL 0.0-5.0 (test code = 685) Provider Enrollment Specialist ID - VARSHA MBASIC METABOLIC [id number] 05:18:00 Test Item Value Reference Range Interpretation Comments SODIUM (BEAKER) 137 meq/L 136-145 (test code = 381) POTASSIUM (BEAKER) 3.9 meq/L 3.5-5.1 (test code = 379) CHLORIDE (BEAKER) 100 meq/L 98-107 (test code = 382) CO2 (BEAKER) (test 28 meq/L 22-29 code = 355) BLOOD UREA NITROGEN 6 mg/dL 7-21 L (BEAKER) (test code = 354) CREATININE (BEAKER) 0.61 mg/dL 0.57-1.25 (test code = 358) GLUCOSE RANDOM 137 mg/dL 70-105 H (BEAKER) (test code = 652) CALCIUM (BEAKER) 8.4 mg/dL 8.4-10.2 (test code = 697) EGFR (BEAKER) (test 99 mL/min/1.73 ESTIMA AMANDA GFR IS code = 1092) sq m NOT ACCURATE CREATININE CLEARANCE IN PREDICTING GLOMERULAR FILTRATION RATE . ESTIMATED GFR I S NOT APPLICABLE FOR DIALYSIS PATIEN TS. Provider Enrollment Specialist ID - [id number] 05:01:00 Test Item Value Reference Range Interpretation Comments PTT (test code = 11961-6) 103.5 22.5- 36.0 seconds H Lab Interpretation (test code = Abnormal 89025-5) [facility] 05:01:00 Test Item Value Reference Range Interpretation Comments PARTIAL THROMBOPLASTIN TIME 103.5 seconds 22.5-36.0 H (BEAKER) (test code = 760) CBC W/PLT COUNT & AUTO [id number] 04:56:00 Test Item Value Reference Range Interpretation Comments WHITE BLOOD CELL COUNT (BEAKER) 10.4 K/ L 3.5-10.5 (test code = 775) RED BLOOD CELL COUNT (BEAKER) 2.88 M/ L 3.93-5.22 L (test code = 761) HEMOGLOBIN (BEAKER) (test code = 8.0 GM/DL 11.2-15.7 L 410) HEMATOCRIT (BEAKER) (test code = 26.5 % 34.1-44.9 L 411) MEAN CORPUSCULAR VOLUME (BEAKER) 92.0 fL 79.4-94.8 (test code = 753) MEAN CORPUSCULAR HEMOGLOBIN 27.8 pg 25.6-32.2 (BEAKER) (test code = 751) MEAN CORPUSCULAR HEMOGLOBIN CONC 30.2 GM/DL 32.2-35.5 L (BEAKER) (test code = 752) RED CELL DISTRIBUTION WIDTH 19.1 % 11.7-14.4 H (BEAKER) (test code = 412) PLATELET COUNT (BEAKER) (test 242 K/CU MM 150-450 code = 756) MEAN PLATELET VOLUME (BEAKER) 9.5 fL 9.4-12.3 (test code = 754) NUCLEATED RED BLOOD CELLS 0 /100 WBC 0-0 (BEAKER) (test code = 413) NEUTROPHILS RELATIVE PERCENT 87 % (BEAKER) (test code = 429) LYMPHOCYTES RELATIVE PERCENT 6 % (BEAKER) (test code = 430) MONOCYTES RELATIVE PERCENT 6 % (BEAKER) (test code = 431) EOSINOPHILS RELATIVE PERCENT 1 % (BEAKER) (test code = 432) BASOPHILS RELATIVE PERCENT 0 % (BEAKER) (test code = 437) NEUTROPHILS ABSOLUTE COUNT 9.10 K/ L 1.56-6.13 H (BEAKER) (test code = 670) LYMPHOCYTES ABSOLUTE COUNT 0.58 K/ L 1.18-3.74 L (BEAKER) (test code = 414) MONOCYTES ABSOLUTE COUNT (BEAKER) 0.57 K/ L 0.24-0.36 H (test code = 415) EOSINOPHILS ABSOLUTE COUNT 0.08 K/ L 0.04-0.36 (BEAKER) (test code = 416) BASOPHILS ABSOLUTE COUNT (BEAKER) 0.01 K/ L 0.01-0.08 (test code = 417) IMMATURE GRANULOCYTES-RELATIVE 1 % 0-1 PERCENT (BEAKER) (test code = 2801) [id number] 23:37:00 Test Item Value Reference Range Interpretation Comments PARTIAL THROMBOPLASTIN TIME 52.4 seconds 22.5-36.0 H (BEAKER) (test code = 760) POCT-GLUCOSE [id number] 21:26:00 Test Item Value Reference Range Interpretation Comments POC-GLUCOSE METER 174 mg/dL 70-110 H : TESTED A T [facility] 6720 (BEAKER) (test code = [facility], 1538) [address]: Provider Enrollment Specialist/Techni logan ID = [id number] for PE VANI BARRETT POCT-GLUCOSE [id number] 17:09:00 Test Item Value Reference Range Interpretation Comments POC-GLUCOSE METER 167 mg/dL 70-110 H : TESTED A T [facility] 6720 (BEAKER) (test code = [facility] Nikki [facility], 1538) [address]: Provider Enrollment Specialist/Techni logan ID = [id number] for JUAN C BELTRAN [id number] 16:17:00 Test Item Value Reference Range Interpretation Comments PARTIAL THROMBOPLASTIN TIME 51.8 seconds 22.5-36.0 H (BEAKER) (test code = 760) POCT-GLUCOSE [id number] 14:58:00 Test Item Value Reference Range Interpretation Comments POC-GLUCOSE METER 124 mg/dL 70-110 H : TESTED A T [facility] 6720 (BEAKER) (test code = [facility], 1538) [address]: Provider Enrollment Specialist/Techni logan ID = [id number] for JUAN C BELTRAN 2D Echo W/Doppler(CW/PW/Color)2020-04-25 10:53:46Ejection FractionSLEH ECHO HEARTLAB MKCKESSON CPACSInterface, External Ris In - 04/25/2020 10:53 AM C DTTransthoracic Echocardiography Report (TTE) Demographics Patient Name QUIANA VALLADARES Date ofStudy 04/24/2020 KARINA Gender Female Visit Number [id number] Race Room Number 6213 Number Date of 1955 Referring Helio Sesay Physician MD Minna 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 The left ventricle is chamber size (by vol index) is normal. All of the LV segments contract normally . LVEF by Gutierrez's method of disk assessment is normal (55- 60%) . Grade 1 diastolic dysfunction (impaired relaxation and low-normal LA pressure). LA size is normal (16-34 ml/m2) . 2. The right ventricular chamber size and systolic function are within normal limits. RA size is normal. Unable to estimate peak systolic PA pressure; inadequate TR velocity signal. 3. A percutaneous (TAVR) biologic AoV prosthesis is visualized and appears well- seated with normal function by Doppler. There appears to be mild to moderately thickened aortic valve leaflets. AoV resting dimensionless obstructive index (DOI) - 0.51. AoV area at rest by continuity equation is in the range of 1.69 cm2. . A trace ofaortic regurgitation. 4. An atrial septal occluder device appears normally deployed. No residual shunting noted. Previous Study In comparison with the prior exam 12/2019 the following changes are noted: Mild to moderately thickened prosthetic aortic valve leaflets. Signature Findings Rhythm/BP Regular sinus rhythm during the exam. Left Ventricle The LV endocardium is adequately visualized. The left ventricle is chamber size (by vol index) is normal (female - LVED vol - 29-61ml/m2). All of the LV segments contract normally . LVEF by Gutierrez's method of disk assessment is normal (55-60%) . Grade 1 diastolic dysfunction (impaired relaxation and low-normal LA pressure). Left Atrium LA is well visualized. LA size is normal (16-34 ml/m2) . Right Ventricle The right ventricularchamber size and systolic function are within normal limits. Right Atrium RA size is normal. Atrial Septum An atrial septal occluder device appears normally deployed. No residual shunting noted. Aortic Valve A percutaneous (TAVR) biologic AoV prosthesis is visualized . A trace of aortic regurgitation.The prosthetic AoV appears well-seated with normal function by Doppler. there appears to be mild to moderately thickened aortic valve leaflets. AoV resting dimensionless obstructive index (DOI) - 0.51. AoV area at rest by continuity equation is in the range of 1.69 cm2. Mitral Valve Normal MV structure and function by available views and Doppler. Tricuspid Valve Normal TV structure and function by available views and Doppler. Unable to estimate peak systolic PA pressure; inadequate TR velocity signal. Pulmonic Valve Normal PV structure and function by limited views and Doppler. Aorta Aortic root size (SInus of Valsalva diameter) is indeterminate (not well s een) . Pericardium A moderate circumferential pericardial effusion is present . Greatest pericardial end-diastolic size is approx. 1.1 cm. Pericardial tamponade physiology is not evident . IVC/SVC/PA/PV/Pleural The IVC is <2.1cm and >50% collapsible suggestive of RAP of 3 mm Hg. Chambers/Structures Left Atrium LA Volume: 26.83 ml LA Area: 15.42 cm^2 LA Vol. Index: 17 ml/m^2 Left Ventricle LVIDd: 4.54 cm LVEDV:57.55 ml LVIDs: 3.1 cm LV Septum Diastolic: 0.96 cm LV PW Diastolic: 0.9 cm LVFS: 31.7 % LVEDV Gutierrez's:82.3 ml LVESV Gutierrez's:34.04 ml LVEDVI: 52 ml/m^2LVEF Gutierrez's: 58.6 % LVESVI: 22 ml/m^2 LVOT Diameter: 2.05 cm Right Ventricle RVOT VTI: 14.41 cm TAPSE: 1.86 cm Doppler/Quantitative Measurements Mitral Valve MV Peak E-Wave: 0.85 m/s MV Peak A-Wave: 1.23 m/s E/A Ratio: 0.7 Mean Velocity: 0.57 m/s Peak Gradient: 2.92 mmHg Mean Gradient: 1.71 mmHg Deceleration Time: 237.9 msec Area (continuity): 2.4 cm^2 MV VTI: 27.17 cm MV Michael. Peak: 1.28 m/s Tissue Doppler E' Septal Velocity: 0.04 m/s A' Septal Velocity: 0.08 m/s E' Lateral Velocity: 0.04 m/s A' Lateral Velocity: 0.09 m/s E/E': 21.62 Aortic Valve Peak Velocity: 1.97 m/s Mean Velocity: 1.34 m/s Peak Gradient: 15.49mmHg Mean Gradient: 8.14 mmHg AV Area (continuity): 1.69 cm^2 AV VTI: 38.49 cm AV DVI: 0.51 LVOT Peak Velocity: 0.93 m/s Peak Gradient: 3.43 mmHg Mean Velocity: 0.53 m/s Mean Gradient: 1.42 mmHg LVOT Diameter: 2.05 cm LVOT VTI: 19.77 cm LVOT Area:3.3 cm^2 LVOT SV:65.22 ml LVOT CO: 5.22 l/min LVOT CI: 3.3 l/min/m^2 RVOT RVOT VTI (PW): 16.81 cm Pulmonic Valve Peak Velocity: 1.3 m/s Peak Gradient: 6.71 mmHg Mean Velocity: 0.63 m/s Mean Gradient: 1.59 mmHgProvidence Mission HospitalAPTT 2020-04-25 09:38:00 Test Item Value Reference Range Interpretation Comments PARTIAL THROMBOPLASTIN TIME 73.4 seconds 22.5-36.0 H (MIKE) (test code = 760) POCT-GLUCOSE [id number] 07:45:00 Test Item Value Reference Range Interpretation Comments POC-GLUCOSE METER 136 mg/dL 70-110 H : TESTED A T [facility] 6720 (MIKE) (test code = [place] [place], 1538) [address]: Provider Enrollment Specialist/Techni logan ID = [id number] for REJI STUART [id number] 04:05:00 Test Item Value Reference Range Interpretation Comments Magnesium (test code = 2.2 mg/dL 1.6-2.6 13187-5) JANETTE (test code = JANETTE) Provider Enrollment Specialist ID - [id number] Lab Interpretation (test Normal code = 20105-0) [facility] HospitalMAGN[facility]IUM2020-08-27 04:05:00 Test Item Value Reference Range Interpretation Comments MAGNESIUM (BEAKER) (test code = 2.2 mg/dL 1.6-2.6 627) Provider Enrollment Specialist ID - NTPBASIC METABOLIC [id number] 04:05:00 Test Item Value Reference Range Interpretation Comments SODIUM (BEAKER) 135 meq/L 136-145 L (test code = 381) POTASSIUM (BEAKER) 4.1 meq/L 3.5-5.1 (test code = 379) CHLORIDE (BEAKER) 102 meq/L 98-107 (test code = 382) CO2 (BEAKER) (test 28 meq/L 22-29 code = 355) BLOOD UREA NITROGEN 7 mg/dL 7-21 (BEAKER) (test code = 354) CREATININE (BEAKER) 0.53 mg/dL 0.57-1.25 L (test code = 358) GLUCOSE RANDOM 118 mg/dL 70-105 H (BEAKER) (test code = 652) CALCIUM (BEAKER) 8.1 mg/dL 8.4-10.2 L (test code = 697) EGFR (BEAKER) (test 117 mL/min/1.73 ESTIM ATED GFR IS code = 1092) sq m NOT ACCURATE CREATININE CLEARANCE IN PREDICTING GLOMERULAR FILTRATION RATE . ESTIMATED GFR I S NOT APPLICABLE FOR DIALYSIS PATIEN TS. Provider Enrollment Specialist ID - [id number] 04:00:00 Test Item Value Reference Range Interpretation Comments PARTIAL THROMBOPLASTIN TIME 54.7 seconds 22.5-36.0 H (BEAKER) (test code = 760) 6 hours after starting heparin infusion and as indicated per sliding scaleCBC W/PLT COUNT & AUTO [id number] 03:58:00 Test Item Value Reference Range Interpretation Comments WHITE BLOOD CELL COUNT (BEAKER) 12.6 K/ L 3.5-10.5 H (test code = 775) RED BLOOD CELL COUNT (BEAKER) 2.72 M/ L 3.93-5.22 L (test code = 761) HEMOGLOBIN (BEAKER) (test code = 7.5 GM/DL 11.2-15.7 L 410) HEMATOCRIT (BEAKER) (test code = 25.2 % 34.1-44.9 L 411) MEAN CORPUSCULAR VOLUME (BEAKER) 92.6 fL 79.4-94.8 (test code = 753) MEAN CORPUSCULAR HEMOGLOBIN 27.6 pg 25.6-32.2 (BEAKER) (test code = 751) MEAN CORPUSCULAR HEMOGLOBIN CONC 29.8 GM/DL 32.2-35.5 L (BEAKER) (test code = 752) RED CELL DISTRIBUTION WIDTH 19.2 % 11.7-14.4 H (BEAKER) (test code = 412) PLATELET COUNT (BEAKER) (test 226 K/CU MM 150-450 code = 756) MEAN PLATELET VOLUME (BEAKER) 9.2 fL 9.4-12.3 L (test code = 754) NUCLEATED RED BLOOD CELLS 0 /100 WBC 0-0 (BEAKER) (test code = 413) NEUTROPHILS RELATIVE PERCENT 90 % (BEAKER) (test code = 429) LYMPHOCYTES RELATIVE PERCENT 4 % (BEAKER) (test code = 430) MONOCYTES RELATIVE PERCENT 5 % (BEAKER) (test code = 431) EOSINOPHILS RELATIVE PERCENT 1 % (BEAKER) (test code = 432) BASOPHILS RELATIVE PERCENT 0 % (BEAKER) (test code = 437) NEUTROPHILS ABSOLUTE COUNT 11.30 K/ L 1.56-6.13 H (BEAKER) (test code = 670) LYMPHOCYTES ABSOLUTE COUNT 0.49 K/ L 1.18-3.74 L (BEAKER) (test code = 414) MONOCYTES ABSOLUTE COUNT (BEAKER) 0.60 K/ L 0.24-0.36 H (test code = 415) EOSINOPHILS ABSOLUTE COUNT 0.08 K/ L 0.04-0.36 (BEAKER) (test code = 416) BASOPHILS ABSOLUTE COUNT (BEAKER) 0.01 K/ L 0.01-0.08 (test code = 417) IMMATURE GRANULOCYTES-RELATIVE 1 % 0-1 PERCENT (BEAKER) (test code = 2801) POCT-GLUCOSE [id number] 23:37:00 Test Item Value Reference Range Interpretation Comments POC-GLUCOSE METER 210 mg/dL 70-110 H : [facility] (BEAKER) (test code = [place], 1538) [address]: Provider Enrollment Specialist/Techni logan ID = [id number] for Idania Stephens [id number] 21:25:00 Test Item Value Reference Range Interpretation Comments PARTIAL THROMBOPLASTIN TIME 42.4 seconds 22.5-36.0 H (BEAKER) (test code = 760) Prior to initiating heparinCBC (HEMOGRAM ONLY)2020-04-24 21:17:00 Test Item Value Reference Range Interpretation Comments WHITE BLOOD CELL COUNT (BEAKER) 12.2 K/ L 3.5-10.5 H (test code = 775) RED BLOOD CELL COUNT (BEAKER) 2.75 M/ L 3.93-5.22 L (test code = 761) HEMOGLOBIN (BEAKER) (test code = 7.7 GM/DL 11.2-15.7 L 410) HEMATOCRIT (BEAKER) (test code = 25.4 % 34.1-44.9 L 411) MEAN CORPUSCULAR VOLUME (BEAKER) 92.4 fL 79.4-94.8 (test code = 753) MEAN CORPUSCULAR HEMOGLOBIN 28.0 pg 25.6-32.2 (BEAKER) (test code = 751) MEAN CORPUSCULAR HEMOGLOBIN CONC 30.3 GM/DL 32.2-35.5 L (BEAKER) (test code = 752) RED CELL DISTRIBUTION WIDTH 18.7 % 11.7-14.4 H (BEAKER) (test code = 412) PLATELET COUNT (BEAKER) (test 223 K/CU MM 150-450 code = 756) MEAN PLATELET VOLUME (BEAKER) 9.1 fL 9.4-12.3 L (test code = 754) NUCLEATED RED BLOOD CELLS 0 /100 WBC 0-0 (BEAKER) (test code = 413) BASIC METABOLIC [id number] 18:32:00 Test Item Value Reference Range Interpretation Comments SODIUM (BEAKER) 136 meq/L 136-145 (test code = 381) POTASSIUM (BEAKER) 4.1 meq/L 3.5-5.1 (test code = 379) CHLORIDE (BEAKER) 103 meq/L 98-107 (test code = 382) CO2 (BEAKER) (test 27 meq/L 22-29 code = 355) BLOOD UREA NITROGEN 7 mg/dL 7-21 (BEAKER) (test code = 354) CREATININE (BEAKER) 0.56 mg/dL 0.57-1.25 L (test code = 358) GLUCOSE RANDOM 132 mg/dL 70-105 H (BEAKER) (test code = 652) CALCIUM (BEAKER) 8.1 mg/dL 8.4-10.2 L (test code = 697) EGFR (BEAKER) (test 110 mL/min/1.73 ESTIM ATED GFR IS code = 1092) sq m NOT ACCURATE CREATININE CLEARANCE IN PREDICTING GLOMERULAR FILTRATION RATE . ESTIMATED GFR I S NOT APPLICABLE FOR DIALYSIS PATIEN TS. Provider Enrollment Specialist ID - [id number] and [id number] 18:16:00 Test Item Value Reference Range Interpretation Comments Hemoglobin (test code = 7.8 11.2- 15.7 GM/DL L 786-4) Hematocrit (test code = 26.0 % 34.1-44.9 L 4544-3) JANETTE (test code = JANETTE) Provider Enrollment Specialist ID - [id number] Lab Interpretation (test Abnormal code = 03763-6) [facility] [id number] 18:16:00 Test Item Value Reference Range Interpretation Comments HEMOGLOBIN (BEAKER) (test code = 7.8 GM/DL 11.2-15.7 L 410) HEMATOCRIT (BEAKER) (test code = 26.0 % 34.1-44.9 L 411) Provider Enrollment Specialist ID - [id number] gas, [id number] 17:37:00 Test Item Value Reference Range Interpretation Comments pH, Arterial (test code = 2744-1) 7.45 7.35-7.45 pCO2, Arterial (test code = 42 35- 45 mmHg 2019-03) pO2, Arterial (test code = 2703-7) 87 80- 90 mmHg O2 Sat, Arterial (test code = 97.2 % 96-97 H 2707-6) HCO3, Arterial (test code = 29 mmol/L 21-29 1959-4) Base Excess, Arterial (test code = 4.0 mmol/L -2-3 H 192-7) Patient Temperature (test code = 36.0 C 8310-5) FIO2 (test code = 1819) 28 % Lab Interpretation (test code = Abnormal 32785-8) [facility], [id number] 17:37:00 Test Item Value Reference Range Interpretation Comments PH ARTERIAL (BEAKER) (test code = 7.45 7.35-7.45 383) PCO2 ARTERIAL (BEAKER) (test code 42 mmHg 35-45 = 384) PO2 ARTERIAL (BEAKER) (test code = 87 mmHg 80-90 385) O2 SATURATION ARTERIAL (BEAKER) 97.2 % 96.0-97.0 H (test code = 386) HCO3 ARTERIAL (BEAKER) (test code 29 mmol/L 21-29 = 388) BASE EXCESS ARTERIAL (BEAKER) 4.0 mmol/L -2.0-3.0 H (test code = 387) PATIENT TEMPERATURE (BEAKER) (test 36.0 C code = 1818) FIO2 (BEAKER) (test code = 1819) 28.0 % Prepare [id number] 17:14:00 Test Item Value Reference Range Interpretation Comments CROSSMATCH (test code = COMPATIBLE 4) Unit ABO (test code = O Pos 5903225) UNIT NUMBER (test code = [id number] 934-0) Status (test code = RETURNED FROM ISSUE 9296540) Blood Bank Product (test RED BLOOD CELLS code = 2263) PRODUCT CODE (test code = C4256I95 933-2) [facility], [id number] 15:12:00 Test Item Value Reference Range Interpretation Comments Calcium, Ion (test code = 1994-3) 1.08 mmol/L 1.12-1.27 L pH, Blood (test code = 69177-4) 7.40 Lab Interpretation (test code = Abnormal 15823-7) [facility]&H[facility]Stat [id number] 15:12:00 Test Item Value Reference Range Interpretation Comments Hemoglobin (test code = 786-4) 8.8 g/dL 12-15 L Hematocrit (test code = 4544-3) 26.0 % 36-45 L Lab Interpretation (test code = Abnormal 99566-1) [facility] [id number] 15:12:00 Test Item Value Reference Range Interpretation Comments Glucose (test code = 2345-7) 123 mg/dL 70-110 H Lab Interpretation (test code = Abnormal 72295-3) [facility] [id number] 15:12:00 Test Item Value Reference Range Interpretation Comments Sodium (test code = 2951-2) 134 meq/L 136-145 L Lab Interpretation (test code = Abnormal 94651-6) [facility], [id number] 15:12:00 Test Item Value Reference Range Interpretation Comments PH ARTERIAL (BEAKER) (test code = 7.38 7.35-7.45 383) PCO2 ARTERIAL (BEAKER) (test code 50 mmHg 35-45 H = 384) PO2 ARTERIAL (BEAKER) (test code = 122 mmHg 80-90 H 385) O2 SATURATION ARTERIAL (BEAKER) 98.2 % 96.0-97.0 H (test code = 386) HCO3 ARTERIAL (BEAKER) (test code 29 mmol/L 21-29 = 388) BASE EXCESS ARTERIAL (BEAKER) 3.5 mmol/L -2.0-3.0 H (test code = 387) PATIENT TEMPERATURE (BEAKER) (test 38.0 C code = 1818) FIO2 (BEAKER) (test code = 1819) 50.0 % SODIUM NA-STAT [id number] 15:12:00 Test Item Value Reference Range Interpretation Comments SODIUM (BEAKER) (test code = 381) 134 meq/L 136-145 L GLUCOSE-STAT [id number] 15:12:00 Test Item Value Reference Range Interpretation Comments GLUCOSE RANDOM (BEAKER) (test code 123 mg/dL 70-110 H = 652) HGB/HCT (H&H) - STAT [id number] 15:12:00 Test Item Value Reference Range Interpretation Comments HEMOGLOBIN (BEAKER) (test code = 8.8 g/dL 12.0-15.0 L 410) HEMATOCRIT (BEAKER) (test code = 26.0 % 36.0-45.0 L 411) CALCIUM, [id number] 15:12:00 Test Item Value Reference Range Interpretation Comments CALCIUM IONIZED (BEAKER) (test 1.08 mmol/L 1.12-1.27 L code = 698) PH, BLOOD (BEAKER) (test code = 7.40 1810) Potassium-Stat [id number] 15:10:00 Test Item Value Reference Range Interpretation Comments Potassium (test code = 2823-3) 4.3 meq/L 3.6-5.5 Lab Interpretation (test code = Normal 25539-9) [facility]OT[facility]UM-STAT [id number] 15:10:00 Test Item Value Reference Range Interpretation Comments POTASSIUM (SOFIEAKER) (test code = 4.3 meq/L 3.6-5.5 379) CT, CTA AAA, W/ JOY.EXT.[id number] 14:17:00Addendum BeginsREPORT STATUS:A ADDENDUM: Study reviewed by radiology. Agree with the nonvascular findings as described below. Multiple hepatic and right renal hypodense massesare consistent with neoplastic processes. Signed: Daniel Carcamo MDReport Verified Date/Time: 04/24/2020 14:17:51 Reading Location: [facility] Mammo Reading RoomAddendum EndsFINAL REPORT CT angiography of the abdominal aorta and runoff, 24-Apr-20 INDICATION: This is a 64 year old female with ischaemic leg presents for assessment. Per notes, patient has TAVR in October 2019, stroke,and PFO closure in November 2019, and past history of colon cancer with chemoradiation in 2015, and left upper lobe mass biopsy in December 2019 suggesting adenocarcinoma. Patient has left lower limb ischemia.TECHNIQUE: Spiral acquisition before and during intravenous contrast administration using a Siemens multidetector CT scanner. Images were obtained before and during the dynamic passage of intravenous contrast material. Multi- planar 3-D volume-rendering reconstruction was performed using an independent workstation interactively by the interpreting physician as well as the 3-D specialist for optimal visualisation of the abdominal aorta, pelvic arteries, and its proximal branches. Please refer to the contrast sheet scanned in the EPIC system for the amount and route of contrast given. This exam was performed according to our departmental dose-optimisation programme, which includes automated exposurecontrol, adjustment of the mA and/or kV according to patient size and/or use of iterative reconstruction technique. Dose modulation, iterative reconstruction, and/or weight based adjustment of the mA/kV was utilized to reduce the radiation dose to as low as reasonably achievable. FINDINGS: VASCULAR: The TAVR is partially visualised incomplete assessed in the precontrast series. The PFO closure device is partially visualised and incompletely assessed. Circumferential pericardial effusion identified, mhgu-lq-psjgpsly in nature. The Hounsfield unit is greater than 10 in the precontrast series suggesting it is not simple in nature. Correlate clinically. It is difficult to be certain if there is any pericardial enhancement as patient already has contrast exposure. The distal descending thoracic aortais unremarkable. The abdominal aorta has scattered calcific and noncalcific atherosclerosis identified. No ectasia or aneurysmal dilation is seen. The abdominal aorta is normal in course, calibre and contour. There is no evidence of acute aortic pathology, specifically, there is no dissection, intramural hematoma, or contained rupture. Quantitative dimensions of the abdominal aorta are as follows: 1.9 cm at the mesenteric segment; 1.8 cm at the renal segment,; and 1.8 cm at the aortic bifurcation. Single left and two right renal arteries are seen that are widely patent. The accessory right renal artery is tiny in calibre. The coeliac axis widely patent. The SMA is widely patent proximally, however, at image 91, dilation is identified with maximum diameter estimated to be approximately 13 mm, with substantial intraluminal thrombus identified the patent lumen has a minimum luminal diameter of 1 to 2 mm. The length of the dilation is approximately 2.5 cm. Thereafter, and not well localized dilation is seen, at image 100, of up to 7 mm in diameter. Remainder of the the SMA is seen to be patent. Please see snapshot for details. The RE is patent. In the left, whilst the ostium of the left common iliac artery is patent thereafter majority of the left common iliac, and the left external iliac artery are not filled by contrast indicating occlusion. Acuity cannot be commented upon. Correlate rega rding with clinical history. The reference diameter of the left external iliac artery is approximately 9 mm at image 191, without contrast enhancement, and the left common iliac artery at image 171 is estimated to be approximately 11 to 12 mm. The length of the occlusion is approximately 10 to 11 cm. The left common femoral artery is patent. The left SFA is patent though is a small calibre vessel when compared to the right SFA, with average diameter of about 2 to 2.5 mm. The left profunda system isunremarkable. The proximal half of the left popliteal artery is patent. However, remainder of the the popliteal artery at the level of the left knee joint is not filled by contrast indicating occlusion. Again acuity is difficult to comment upon. Correlate with clinical history. In the left lower extremity, the left anterior tibial artery seen to be patent but a small calibre vessel and the dorsalispedis artery is well seen. Enhancement of the tibioperoneal trunk is suboptimal. Enhancement of the peroneal artery is suboptimal. Faint enhancement of the left posterior tibial artery is identified inthe distal half of the artery as well as the plantar arch is seen distally. In the right, the right common iliac, and the right external iliac artery are seen to be patent with nonobstructive calcific lesion seen in the right common iliac level. The right common femoral artery is unremarkable. The right SFA is widely patent. The right profunda system is unremarkable. The right popliteal arteries unremarkable. In the right lower extremity, the right anterior tibial artery is widely patent and the dorsalis pedis artery is well seen. The right tibioperoneal trunk is patent though the right peroneal artery has very limited enhancement identified indicating significant diffuse disease. The right processing assistant ior tibial artery is widely patent and the plantar arch is seen distally. NONVASCULAR Trace right basal pleural effusion is identified. Left pleural effusion is identified in the available images. In the abdomen, the liver and spleen has no acute abnormality is identified. However, hypodensity is iden tified in the right hepatic lobe, at image 83 measuring 4.3 x 3.5 cm in diameter. This is incompletely characterise. In addition, three smaller hypodensities also identified in the liver. See annotation in PACS for details. In the presence of significant past medical history, the concern is of possible metastatic lesion. The gallbladder appears unremarkable. The adrenal glands are not enlarged. The pancreas have no gross abnormality seen. The left kidney is unremarkable. No hydronephrosis or perirenal fluid collection is seen. There is a hypodensity identified involving the majority of the lower half of the the right kidney, and there is some contrast enhancement identified. Note, even in the precontrast series, contrast is present in the bilateral renal pelvis indicating patient had recent contrast exposure. Tissue characterisation is limited in this dedicated arterial examination. Again, concern for potential malignancy in the right kidney. An addendum will be dictated thereafter, if needed,if dedicated cross sectional imaging is required. Bowel is not well assessed by CT angiography as enteric contrast is not given. No obvious bowel dilation is identified. No free air or free fluid is identified abdomen and pelvis. The bladder is full of contrast. The uterus is not identified. No abnormal adnexal mass is seen. No free air free fluid seen in the abdomen and pelvis. No significant retroperitoneal adenopathy is identified. In the bony windows, no acute bony pathology is seen. Some degenerative changes is noted especially at L2-3 and L4 level. Mild scoliosis is identified. In the available images, no obvious lytic or blastic lesion is seen though an addendum will be dictated regarding the L3 and L4 level, if needed. In addition, addendum will be dictated regarding the finding in the right sacral level at image 184. CONCLUSIONS: 1. Mild to moderate circumferential pleural effusion andby Hounsfield unit measurement, the effusion appears not to be simple atelectasis is greater than 20. Correlate clinically. 2. Abdominal aorta is normal in course and calibre with some atherosclerosis identified. No hanging atherosclerosis is appreciated. There is no evidence of acute aortic pathology, specifically, there is no dissection, intramural hematoma, or contained rupture. 3. The pertinent finding in the pelvis is the tortuosity of the left common iliac artery and the left external iliac artery is occluded, length of 10 to 11 cm. Acuity cannot be commented upon. The left common femoral artery and the left SFA and the proximal half of the left popliteal artery is patent. The left SFA is somewhat small in calibre when compared to the corresponding right SFA. The distal half of the left popliteal artery is not filled by contrast. At least one vessel runoff in the left lower extremity. 4.Refer to the above regarding the status of the right peripheral arteries. 5. Other findings as described above. Bibasal pleural effusion left greater than right. A 4.3 x 3.5 cm mass is identified in the right hepatic lobe incompletely characterise. In addition, there is also hypodensity identified in the lower half of the right kidney that measure 5.7 x 6.6 x 7.7 cm. Taking account of patient's past medical history, concern is of potential metastatic lesions. However, addendum will be dictated thereafter if dedicated cross-sectional imaging could be performed for further tissue characterisation, ifthe above has not been investigated by outside facility. 6. An addendum will be dictated regarding the non-vascular findings by the [employer] Radiologist. Pertinent vascular findings were relayed to first year resident of the vascular surgery service at 11:50 AM. Signed: Ricardo Broussard MDReport Verified Date/Time: 04/24/2020 11:55:01 Reading Location: [place] [address] [address] Reading Room RAD, CHEST, 1 VIEW, NON [id number] 13:18:00Reason for exam:->lung massShould this be performed at the bedside?->YesFINAL REPORT RAD, CHEST, 1 VIEW, NON DEPT INDICATION: lung mass COMPARISON: January 12, 2020 FINDINGS: Portable frontal view of the chest. IMPRESSION: Support Lines: Port-A-Cath tip overlies the atriocaval junction Lungs and pleura: Masses present within the right upper lobe. Newsmall left effusion and adjacent atelectasis No pneumothorax.Heart and mediastinum: Stable contours.Additional findings: None. Signed: Arlyn Persaud Verified Date/Time: 04/24/2020 13:18:46 Reading Location: [facility] Radiology Reading Room XR chest 1 view portable / [id number] 13:18:00Interface, External Ris In - 04/24/2020 1:21 PM CDTFINAL REPORT RAD, CHEST, 1 VIEW, NON DEPT INDICATION: lung mass COMPARISON: January 12, 2020 FINDINGS: Portable frontal view of the chest. IMPRESSION: Support Lines: Port-A-Cath tip overlies the atriocaval junction Lungs and pleura: Masses present within the right upper lobe. New small left effusion and adjacent atelectasis No pneumothorax.Heart and mediastinum: Stable contours.Additional findings: None. Signed: Alryn Persaud Verified Date/Time: 04/24/2020 13:18:46 Reading Location: [facility] Rad[facility] 12[facility]54[facility]00 Test Item Value Reference Range Interpretation Comments Potassium (test code = 4.1 meq/L 3.5-5.1 2823-3) JANETTE (test code = JANETTE) Provider Enrollment Specialist ID - JESSICA Tidwell Lab Interpretation (test Normal code = 96312-2) [facility]2020-08-26 12:54:00 Test Item Value Reference Range Interpretation Comments POTASSIUM (BEAKER) (test code = 4.1 meq/L 3.5-5.1 379) Provider Enrollment Specialist ID - JESSICA [id number] 12:54:00 Test Item Value Reference Range Interpretation Comments MAGNESIUM (BEAKER) (test code = 2.2 mg/dL 1.6-2.6 627) Provider Enrollment Specialist ID - JESSICA CHEMOGLOBIN AND [id number] 12:15:00 Test Item Value Reference Range Interpretation Comments HEMOGLOBIN (BEAKER) (test code = 8.3 GM/DL 11.2-15.7 L 410) HEMATOCRIT (BEAKER) (test code = 27.7 % 34.1-44.9 L 411) Provider Enrollment Specialist ID - [id number]-COV2/RT-PCR ([facility])2020-04-24 12:06:00 Test Item Value Reference Range Interpretation Comments SARS-COV2/RT-PCR (test Negative Not Detected, Negative, code = 7055139) See external report for linked test SARS-COV-2 PERFORMING LAB [facility] (test code = 9812171) Negative result for this test determines that [...] 564(g) of the Act.Fact Sheet for Healthcare Providers:https://www.[employer]/sites/default/files/product/documents/Fact_Shee h_DP_Zdlvjozfo_Wkqd_YZCN-FkE-0.pdfFact Sheet for Healthcare Patients:https://www.[employer] [facility]/sites/default/files/product/ documents/Ohwh_Jrryr_Jeulehqv_Ekvp_KEWQ-QsS-9.pdfPerforming Laboratory:[facility], [place] [address]TIYA-RLTVOJV METER 2020-04-24 12:03:00 Test Item Value Reference Range Interpretation Comments POC-GLUCOSE METER 85 mg/dL 70-110 : TESTED A T [facility] 67[address] ([address]) (test code = LORELEI Nikki [facility], 1538) [address]: Provider Enrollment Specialist/Techni logan ID = [id number] for ROSE LINO CTA AAA and [id number] 11:55:00Interface, External Ris In - 04/24/2020 2:20 PM CDTAddendum BeginsREPORT STATUS:A ADDENDUM: Study reviewed by radiology. Agree with the nonvascular findings as described below. Multiple hepatic and right renal hypodense masses are consistent with neoplastic processes. Signed: Daniel Carcamo MDReport Verified Date/Time: 04/24/2020 14:17:51 [facility] RoomAddendum EndsFINAL REPORT CT angiography of the abdominal aorta and runoff, 24-Apr-20 INDICATION: This is a 64 year old female with ischaemic leg presents for assessment. 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 Patient has left lower limb ischemia. TECHNIQUE: Spiral acquisition before and during intravenous contrast administration using a Siemens multidetector CT scanner. Images were obtained before and during the dynamic passage of intravenous contrast material. Multi-planar 3-D volume-rendering reconstruction was performed using an independent workstation interactively by the interpreting physician as well as the 3-D specialist for optimal visualisation of the abdominal aorta, pelvic arteries, and its proximal branches. Please refer to the contrast sheet scanned in the EPIC system for theamount and route of contrast given. This exam was performed according to our departmental dose-optimisation programme, which includes automated exposure control, adjustment of the mA and/or kV according to patient size and/or use of iterative reconstruction technique. Dose modulation, iterative reconstruction, and/or weight based adjustment of the mA/kV was utilized to reduce the radiation dose to aslow as reasonably achievable. FINDINGS: VASCULAR: The TAVR is partially visualised incomplete assessed in the precontrast series. The PFO closure device is partially visualised and incompletely assessed. Circumferential pericardial effusion identified, vfwu-te-brcbqszg in nature. The Hounsfield unit is greater than 10 in the precontrast series suggesting it is not simple in nature. Correlate clinically. It is difficult to be certain if there is any pericardial enhancement as patient already has contrast exposure. The distal descending thoracic aorta is unremarkable. The abdominal aorta has scattered calcific and noncalcific atherosclerosis identified. No ectasia or aneurysmal dilation is seen. The abdominal aorta is normal in course, calibre and contour. There is no evidence of acute aortic pathology, specifically, there is no dissection, intramural hematoma, or contained rupture. Quantitative dimensions of the abdominal aorta are as follows: 1.9 cm at the mesenteric segment; 1.8 cm at therenal segment,; and 1.8 cm at the aortic bifurcation. Single left and two right renal arteries are seen that are widely patent. The accessory right renal artery is tiny in calibre. The coeliac axis widely patent. The SMA is widely patent proximally, however, at image 91, dilation is identified with maximum diameter estimated to be approximately 13 mm, with substantial intraluminal thrombus identifiedthe patent lumen has a minimum luminal diameter of 1 to 2 mm. The length of the dilation is approximately 2.5 cm. Thereafter, and not well localized dilation is seen, at image 100, of up to 7 mm in diameter. Remainder of the the SMA is seen to be patent. Please see snapshot for details. The RE is patent. In the left, whilst the ostium of the left common iliac artery is patent thereafter majority of the left common iliac, and the left external iliac artery are not filled by contrast indicating occlusion. Acuity cannot be commented upon. Correlate regarding with clinical history. The reference diameter of the left external iliac artery is approximately 9 mm at image 191, without contrast enhancement, and the left common iliac artery at image 171 is estimated to be approximately 11 to 12 mm. The length of the occlusion is approximately 10 to 11 cm. The left common femoral artery is patent. The left SFA is patent though is a small calibre vessel when compared to the right SFA, with average diameter of about 2 to 2.5 mm. The left profunda system is unremarkable. The proximal half of the left popliteal artery is patent. However, remainder of the the popliteal artery at the level of the left kneejoint is not filled by contrast indicating occlusion. Again acuity is difficult to comment upon. Correlate with clinical history. In the left lower extremity, the left anterior tibial artery seen to be patent but a small calibre vessel and the dorsalis pedis artery is well seen. Enhancement of the tibioperoneal trunk is suboptimal. Enhancement of the peroneal artery is suboptimal. Faint enhancement of the left posterior tibial artery is identified in the distal half of the artery as well as the plantar arch is seen distally. In the right, the right common iliac, and the right external iliac arteryare seen to be patent with nonobstructive calcific lesion seen in the right common iliac level. The right common femoral artery is unremarkable. The right SFA is widely patent. The right profunda system is unremarkable. The right popliteal arteries unremarkable. In the right lower extremity, the right anterior tibial artery is widely patent and the dorsalis pedis artery is well seen. The right tibioperoneal trunk is patent though the right peroneal artery has very limited enhancement identified indicating significant diffuse disease. The right posterior tibial artery is widely patent and the plantar arch is seen distally. NONVASCULAR Trace right basal pleural effusion is identified. Left pleural effusion is identified in the available images. In the abdomen, the liver and spleen has no acute abnormality is identified. However, hypodensity is identified in the right hepatic lobe, at image 83 measuring 4.3 x 3.5 cm in diameter. This is incompletely characterise. In addition, three smaller hypodensities also identified in the liver. See annotation in PACS for details. In the presence of significant past medical history, the concern is of possible metastatic lesion. The gallbladder appears unremarkable. The adrenal glands are not enlarged. The pancreas have no gross abnormality seen. The leftkidney is unremarkable. No hydronephrosis or perirenal fluid collection is seen. There is a hypodensity identified involving the majority of the lower half of the the right kidney, and there is some contrast enhancement identified. Note, even in the precontrast series, contrast is present in the bilateral renal pelvis indicating patient had recent contrast exposure. Tissue characterisation is limitedin this dedicated arterial examination. Again, concern for potential malignancy in the right kidney.An addendum will be dictated thereafter, if needed, if dedicated cross sectional imaging is required. Bowel is not well assessed by CT angiography as enteric contrast is not given. No obvious bowel dilation is identified. No free air or free fluid is identified abdomen and pelvis. The bladder is full of contrast. The uterus is not identified. No abnormal adnexal mass is seen. No free air free fluid seen in the abdomen and pelvis. No significant retroperitoneal adenopathy is identified. In the bony windows, no acute bony pathology is seen. Some degenerative changes is noted especially at L2-3 and X9isdlg. Mild scoliosis is identified. In the available images, no obvious lytic or blastic lesion is seen though an addendum will be dictated regarding the L3 and L4 level, if needed. In addition, addendum will be dictated regarding the finding in the right sacral level at image 184. CONCLUSIONS: 1. Mild to moderate circumferential pleural effusion and by Hounsfield unit measurement, the effusion appears not to be simple atelectasis is greater than 20. Correlate clinically. 2. Abdominal aorta is normal in course and calibre with some atherosclerosis identified. No hanging atherosclerosis is appreciated. There is no evidence of acute aortic pathology, specifically, there is no dissection, intramural hematoma, or contained rupture. 3. The pertinent finding in the pelvis is the tortuosity of the left common iliac artery and the left external iliac artery is occluded, length of 10 to 11 cm. Acuitycannot be commented upon. The left common femoral artery and the left SFA and the proximal half of the left popliteal artery is patent. The left SFA is somewhat small in calibre when compared to the corresponding right SFA. The distal half of the left popliteal artery is not filled by contrast. At least one vessel runoff in the left lower extremity. 4. Refer to the above regarding the status of the right peripheral arteries. 5. Other findings as described above. Bibasal pleural effusion left greaterthan right. A 4.3 x 3.5 cm mass is identified in the right hepatic lobe incompletely characterise. In addition, there is also hypodensity identified in the lower half of the right kidney that measure 5.7 x 6.6 x 7.7 cm. Taking account of patient's past medical history, concern is of potential metastatic lesions. However, addendum will be dictated thereafter if dedicated cross-sectional imaging could be performed for further tissue characterisation, if the above has not been investigated by outside fa cility. 6. An addendum will be dictated regarding the non-vascular findings by the Wet Process Miller Radiologist. Pertinent vascular findings were relayed to first year resident of the vascular surgery service at 11:50 AM. Signed: Ricardo Broussard MDReport Verified Date/Time: 04/24/2020 11:55:01 Reading Location: [place] [address] [address] Reading Room 02:17 [facility], [id number] 11:22:00Unlisted Reason for Exam - Click Yes and Enter Reason Below->NoFINAL REPORT CT Head with and without contrast CLINICAL HISTORY: Neoplasm: head, metastatic TECHNIQUE: Contiguous axial images through the head with and without contrast. This exam was performed according to the departmental dose optimization program which includes automated exposure control, adjustment of the mA and/or kV according to the patient size, and/or use of an iterative reconstruction technique. COMPARISON: None FINDINGS: There is a faint 3 mm focus of enhancement inthe right midfrontal lobe. Subtle 3 mm enhancement may also be seen in the left mid frontal lobe. There is no CT evidence of acute infarct or acute hemorrhage. A chronic left thalamic infarct is again seen. A small chronic right cerebellar infarct is again seen. There is periventricular and subcortical white matter hypodensity which is nonspecific but compatible with chronic microvascular ischemic change. There are atherosclerotic calcifications of the intracranial circulation. There is generalizedparenchymal volume loss without hydrocephalus, midline shift, or apparent mass effect. There are no extra-axial fluid collections. The skull is intact. IMPRESSION: Suspected small foci of enhancement in the bilateral frontal lobes. Given the history, metastatic disease is suspected. However, gadolinium enhanced MRI brain is recommended for more definitive evaluation. Chronic left thalamic and right cerebellar infarcts. Signed: Sabiha Iyer Verified Date/Time: 04/24/2020 11:22:40 Reading Location: [address] Neuro Reading Room brain without & with IV [id number] 11:22:00Interface, External Ris In - 04/24/2020 11:[address] Head with and without contrast CLINICAL HISTORY: Neoplasm: head, metastatic TECHNIQUE: Contiguous axial imagesthrough the head with and without contrast. This exam was performed according to the departmental dose optimization program which includes automated exposure control, adjustment of the mA and/or kV according to the patient size, and/or use of an iterative reconstruction technique. COMPARISON: None FINDINGS: There is a faint 3 mm focus of enhancement in the right midfrontal lobe. Subtle 3 mm enhancement may also be seen in the left mid frontal lobe. There is no CT evidence of acute infarct or acute hemorrhage. A chronic left thalamic infarct is again seen. A small chronic right cerebellar infarct isagain seen. There is periventricular and subcortical white matter hypodensity which is nonspecific but compatible with chronic microvascular ischemic change. There are atherosclerotic calcifications of the intracranial circulation. There is generalized parenchymal volume loss without hydrocephalus, midline shift, or apparent mass effect. There are no extra-axial fluid collections. The skull is intact. IMPRESSION: Suspected small foci of enhancement in the bilateral frontal lobes. Given the history,metastatic disease is suspected. However, gadolinium enhanced MRI brain is recommended for more definitive evaluation. Chronic left thalamic and right cerebellar infarcts. Signed: Sabiha Iyer MDRjailene Verified Date/Time: 04/24/2020 11:22:40 Reading Location: [address] Neuro [facility] 07[facility]00 Test Item Value Reference Range Interpretation Comments PARTIAL THROMBOPLASTIN TIME 52.0 seconds 22.5-36.0 H (BEAKER) (test code = 760) 6 hours after starting heparin infusion and as indicated per sliding scaleBASIC METABOLIC [id number] 06:18:00 Test Item Value Reference Range Interpretation Comments SODIUM (BEAKER) 138 meq/L 136-145 (test code = 381) POTASSIUM (BEAKER) 3.7 meq/L 3.5-5.1 Specimen slightly (test code = 379) hemolyzed CHLORIDE (BEAKER) 98 meq/L 98-107 (test code = 382) CO2 (BEAKER) (test 31 meq/L 22-29 H code = 355) BLOOD UREA NITROGEN 7 mg/dL 7-21 (BEAKER) (test code = 354) CREATININE (BEAKER) 0.64 mg/dL 0.57-1.25 Specimen slightly (test code = 358) hemolyzed GLUCOSE RANDOM 176 mg/dL 70-105 H (BEAKER) (test code = 652) CALCIUM (BEAKER) 7.9 mg/dL 8.4-10.2 L (test code = 697) EGFR (BEAKER) (test 94 mL/min/1.73 ESTIMA AMANDA GFR IS code = 1092) sq m NOT ACCURATE CREATININE CLEARANCE IN PREDICTING GLOMERULAR FILTRATION RATE . ESTIMATED GFR I S NOT APPLICABLE FOR DIALYSIS PATIEN TS. Provider Enrollment Specialist ID - EDASICBC W/PLT COUNT & AUTO [id number] 05:48:00 Test Item Value Reference Range Interpretation Comments WHITE BLOOD CELL COUNT (BEAKER) 10.3 K/ L 3.5-10.5 (test code = 775) RED BLOOD CELL COUNT (BEAKER) 2.49 M/ L 3.93-5.22 L (test code = 761) HEMOGLOBIN (BEAKER) (test code = 6.6 GM/DL 11.2-15.7 L 410) HEMATOCRIT (BEAKER) (test code = 22.9 % 34.1-44.9 L 411) MEAN CORPUSCULAR VOLUME (BEAKER) 92.0 fL 79.4-94.8 (test code = 753) MEAN CORPUSCULAR HEMOGLOBIN 26.5 pg 25.6-32.2 (BEAKER) (test code = 751) MEAN CORPUSCULAR HEMOGLOBIN CONC 28.8 GM/DL 32.2-35.5 L (BEAKER) (test code = 752) RED CELL DISTRIBUTION WIDTH 20.0 % 11.7-14.4 H (BEAKER) (test code = 412) PLATELET COUNT (BEAKER) (test 294 K/CU MM 150-450 code = 756) MEAN PLATELET VOLUME (BEAKER) 9.5 fL 9.4-12.3 (test code = 754) NUCLEATED RED BLOOD CELLS 0 /100 WBC 0-0 (BEAKER) (test code = 413) NEUTROPHILS RELATIVE PERCENT 86 % (BEAKER) (test code = 429) LYMPHOCYTES RELATIVE PERCENT 7 % (BEAKER) (test code = 430) MONOCYTES RELATIVE PERCENT 6 % (BEAKER) (test code = 431) EOSINOPHILS RELATIVE PERCENT 1 % (BEAKER) (test code = 432) BASOPHILS RELATIVE PERCENT 0 % (BEAKER) (test code = 437) NEUTROPHILS ABSOLUTE COUNT 8.81 K/ L 1.56-6.13 H (BEAKER) (test code = 670) LYMPHOCYTES ABSOLUTE COUNT 0.68 K/ L 1.18-3.74 L (BEAKER) (test code = 414) MONOCYTES ABSOLUTE COUNT (BEAKER) 0.57 K/ L 0.24-0.36 H (test code = 415) EOSINOPHILS ABSOLUTE COUNT 0.12 K/ L 0.04-0.36 (BEAKER) (test code = 416) BASOPHILS ABSOLUTE COUNT (BEAKER) 0.02 K/ L 0.01-0.08 (test code = 417) IMMATURE GRANULOCYTES-RELATIVE 1 % 0-1 PERCENT (BEAKER) (test code = 2801) POCT-GLUCOSE [id number] 01:11:00 Test Item Value Reference Range Interpretation Comments POC-GLUCOSE METER 144 mg/dL 70-110 H : TESTED A T [facility] 6720 (BEAKER) (test code = [place], 1538) [address]: Provider Enrollment Specialist/Techni logan ID = [id number] for jolene Idania Comprehensive metabolic [id number] 23:56:00 Test Item Value Reference Range Interpretation Comments Protein, Total (test 6.6 6.0- 8.3 gm/dL code = 2885-2) Albumin (test code = 2.8 g/dL 3.5-5 L 02368-9) Alkaline Phosphatase 132 U/L 40-150 (test code = 6768-6) Total Bilirubin (test 0.3 mg/dL 0.2-1.2 code = 1975-2) Sodium (test code = 139 meq/L 947-272 7704-2) Potassium (test code = 3.9 meq/L 3.5-5.1 2823-3) Chloride (test code = 99 meq/L 98-107 2075-0) CO2 (test code = 30 meq/L 22-29 H 2028-9) BUN (test code = 9 mg/dL 7-21 3094-0) Creatinine (test code 0.68 mg/dL 0.57-1.25 = 2160-0) Glucose (test code = 150 mg/dL 70-105 H 2345-7) Calcium (test code = 8.0 mg/dL 8.4-10.2 L 14904-6) AST (test code = 29 U/L 5-34 1920-8) ALT (test code = 24 U/L 6-55 1742-6) EGFR (test code = 88 mL/min/1.73 [place] [address]-3) NOT ACCURATE CREATININE CLEARANCE IN PREDICTING GLOMERULAR FILTRATION RATE . ESTIMATED GFR I S NOT APPLICABLE FOR DIALYSIS PATIENTS. JANETTE (test code = JANETTE) Provider Enrollment Specialist ID - PIAYA L Lab Interpretation Abnormal (test code = 11559-6) [facility]:56[facility]00 Test Item Value Reference Range Interpretation Comments MAGNESIUM (BEAKER) (test code = 1.8 mg/dL 1.6-2.6 627) Provider Enrollment Specialist ID - PIAYA LCOMPREHENSIVE METABOLIC [id number] 23:56:00 Test Item Value Reference Range Interpretation Comments TOTAL PROTEIN 6.6 gm/dL 6.0-8.3 (BEAKER) (test code = 770) ALBUMIN (BEAKER) 2.8 g/dL 3.5-5.0 L (test code = 1145) ALKALINE PHOSPHATASE 132 U/L 40-150 (BEAKER) (test code = 346) BILIRUBIN TOTAL 0.3 mg/dL 0.2-1.2 (BEAKER) (test code = 377) SODIUM (BEAKER) (test 139 meq/L 136-145 code = 381) POTASSIUM (BEAKER) 3.9 meq/L 3.5-5.1 (test code = 379) CHLORIDE (BEAKER) 99 meq/L 98-107 (test code = 382) CO2 (BEAKER) (test 30 meq/L 22-29 H code = 355) BLOOD UREA NITROGEN 9 mg/dL 7-21 (BEAKER) (test code = 354) CREATININE (BEAKER) 0.68 mg/dL 0.57-1.25 (test code = 358) GLUCOSE RANDOM 150 mg/dL 70-105 H (BEAKER) (test code = 652) CALCIUM (BEAKER) 8.0 mg/dL 8.4-10.2 L (test code = 697) AST (SGOT) (BEAKER) 29 U/L 5-34 (test code = 353) ALT (SGPT) (BEAKER) 24 U/L 6-55 (test code = 347) EGFR (BEAKER) (test 88 mL/min/1.73 ESTIMA AMANDA GFR IS code = 1092) sq m NOT ACCURATE CREATININE CLEARANCE IN PREDICTING GLOMERULAR FILTRATION RATE . ESTIMATED GFR I S NOT APPLICABLE FOR DIALYSIS PATIEN TS. Provider Enrollment Specialist ID - PIAYA LPT/[id number] 23:47:00 Test Item Value Reference Range Interpretation Comments PROTIME (BEAKER) (test code = 15.0 seconds 11.9-14.2 H 759) INR (BEAKER) (test code = 370) 1.21 <=5.90 PARTIAL THROMBOPLASTIN TIME 48.5 seconds 22.5-36.0 H (BEAKER) (test code = 760) Effective 01/25/2019: PT Reference Range ChangeNew: 11.9-14.2 Previous: 11.7- 14.7RECOMMENDED COUMADIN/WARFARIN INR THERAPY RANGESSTANDARD DOSE: 2.0-3.0 Includes: PROPHYLAXIS for venous thrombosis, systemic embolization; TREATMENT for venous thrombosis and/or pulmonary embolus.HIGH RISK: Target INR is2.5-3.5 for patients wiht mechanical heart valves.CBC W/PLT COUNT & AUTO [id number] 23:40:00 Test Item Value Reference Range Interpretation Comments WHITE BLOOD CELL COUNT (BEAKER) 13.4 K/ L 3.5-10.5 H (test code = 775) RED BLOOD CELL COUNT (BEAKER) 2.70 M/ L 3.93-5.22 L (test code = 761) HEMOGLOBIN (BEAKER) (test code = 7.3 GM/DL 11.2-15.7 L 410) HEMATOCRIT (BEAKER) (test code = 24.0 % 34.1-44.9 L 411) MEAN CORPUSCULAR VOLUME (BEAKER) 88.9 fL 79.4-94.8 (test code = 753) MEAN CORPUSCULAR HEMOGLOBIN 27.0 pg 25.6-32.2 (BEAKER) (test code = 751) MEAN CORPUSCULAR HEMOGLOBIN CONC 30.4 GM/DL 32.2-35.5 L (BEAKER) (test code = 752) RED CELL DISTRIBUTION WIDTH 19.9 % 11.7-14.4 H (BEAKER) (test code = 412) PLATELET COUNT (BEAKER) (test 313 K/CU MM 150-450 code = 756) MEAN PLATELET VOLUME (BEAKER) 8.8 fL 9.4-12.3 L (test code = 754) NUCLEATED RED BLOOD CELLS 0 /100 WBC 0-0 (BEAKER) (test code = 413) NEUTROPHILS RELATIVE PERCENT 88 % (BEAKER) (test code = 429) LYMPHOCYTES RELATIVE PERCENT 6 % (BEAKER) (test code = 430) MONOCYTES RELATIVE PERCENT 5 % (BEAKER) (test code = 431) EOSINOPHILS RELATIVE PERCENT 0 % (BEAKER) (test code = 432) BASOPHILS RELATIVE PERCENT 0 % (BEAKER) (test code = 437) NEUTROPHILS ABSOLUTE COUNT 11.69 K/ L 1.56-6.13 H (BEAKER) (test code = 670) LYMPHOCYTES ABSOLUTE COUNT 0.83 K/ L 1.18-3.74 L (BEAKER) (test code = 414) MONOCYTES ABSOLUTE COUNT (BEAKER) 0.68 K/ L 0.24-0.36 H (test code = 415) EOSINOPHILS ABSOLUTE COUNT 0.03 K/ L 0.04-0.36 L (BEAKER) (test code = 416) BASOPHILS ABSOLUTE COUNT (BEAKER) 0.02 K/ L 0.01-0.08 (test code = 417) IMMATURE GRANULOCYTES-RELATIVE 1 % 0-1 PERCENT (BEAKER) (test code = 2801) SARS-COV2/RT-PCR ([facility])2020-04-03 19:28:00 Test Item Value Reference Range Interpretation Comments SARS-COV2/RT-PCR (test Negative Not Detected, Negative, code = 0773306) See external report for linked test SARS-COV-2 PERFORMING LAB [facility] BETSEY (test code = 2262174) Negative result for this test determines that [...] 564(g) of the Act.Fact Sheet for Healthcare Providers:https://www.[employer]reo[employer] Sciencesidel.com/sites/default/files/product/documents/Fact_Shee e_TH_Pmjmnhkmt_Kbhc_BTFW-SiD-3.pdfFact Sheet for Healthcare Patients:https://www.[employer] Sciencesidel.com/sites/default/files/product/ documents/Lloj_Ubtxo_Tritmjnl_Zfdg_ZVKN-RuM-6.pdfPerforming Laboratory:[facility], [place] [address]I Echo W/Doppler(CW/PW/Color)2020-01-12 11:03:32Ejection FractionSLEH ECHO HEARTLAB MKCKESSON CPACSInterface, External Ris In - 01/12/2020 11:03 AM CDTTransthoracic Echocardiography Report (TTE) Demographics Patient Name QUIANA VALLADARES Date of Study 01/12/2020 KARINA Gender Female Visit Number [id number] Race Room Number 6102 Number Date of 1955 Referring Physician Age 64 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 Customer Viola Hargrove Interpreting Donato Beth MD Physician [...] CO: 5.18 l/min LVOT CI: 3.16 l[facility]min/m^2[facility]OLIC [id number] 05:44:00 Test Item Value Reference Range Interpretation [...] S NOT APPLICABLE FOR DIALYSIS PATIEN TS. Provider Enrollment Specialist ID - PIAYA LCBC (HEMOGRAM ONLY)2020-01-12 05:09:00 Test Item Value Reference [...] = 413) RAD, CHEST, 1 VIEW, NON [id number] 04:42:00Reason for exam:->s/p PFO closure, SOBShould this [...] Silvano Bruce MDReport Verified Date/Time: 01/12/2020 04:42:15 Transesophageal [id number] 20:46:03 Ejection FractionSLEH ECHO HEARTLAB MKCKESSJOSELO CPACSInterface, External Ris In - 01/11/2020 8:46 PM CDTTransesophageal Echocardiography Report (LINDA) Demographics Patient Name QUIANA VALLADARES Date of Study 01/11/2020 KARINA Gender Female Visit Number [id number] Race Room Number 6102 Number Date of 1955 Referring Physician Helio Buitrago MD Age 64 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 Customer Rob Zurita Interpreting Donato Beth MD Physician [...] is noted. Atrial septal position continuously bows efel-sd-mbsvl, consistent with elevated LA pressure. There was [...] noted. Signature Findings Rhythm/BP Interventional LINDA (cpt 77248) for guidance of percutaneous intracardiac procedure. Left [...] is noted. Atrial septal position continuously bows lreu-mr-dqeon, consistent with elevated LA pressure. PFO noted. [...] Doppler. Pericardium No significant pericardial effusion is visualized.[facility] 12 [id number] 13:40:23Interface, External Ris In - 01/11/2020 1:40 PM CDTVentricular Rate 66 BPMAtrial Rate 66 BPMP-R Interval 160 msQRS Duration 90 msQ-T Interval 426 msQTC Calculation(Bazett) 446 msP [place] 76 degreesR [place] 49 degreesT [place] 51 degreesNormal sinus rhythmLow voltage QRSWithin normal limitsWhen compared withECG of 23-NOV-2019 11:50,Significant changes have occurredConfirmed by MD Orellana Roberto ([id number]) on 01/11/2020 1:40:18 [facility]-[id number] 11:12:00 Test Item Value Reference Range Interpretation Comments ACTIVATED CLOTTING TIME 362 sec : 74 -137 seconds, (BEAKER) (test code = Baseli ne: TESTED AT 441) [facility] [address] [place], [address]: Provider Enrollment Specialist/Techni logan ID = [id number] for TY BHATT SARS-COV2/RT-PCR ([facility])2020-01-09 16:43:00 Test Item Value Reference Range Interpretation Comments SARS-COV2/RT-PCR (test code = Negative Not Detected, Negative 7351562) SARS-COV-2 PERFORMING LAB [facility] (test code = 8186917) BASIC METABOLIC [id number] 10:02:00 Test Item Value Reference Range Interpretation [...] S NOT APPLICABLE FOR DIALYSIS PATIEN TS. Provider Enrollment Specialist ID - VARSHA MCBC (HEMOGRAM ONLY)2020-01-08 10:00:00 [...] 0-0 (BEAKER) (test code = 413) Prothrombin time/[id number] 09:55:00 Test Item Value Reference Range Interpretation [...] valves. Lab Interpretation Normal (test code = 40501-9) [facility] Hospital[facility]HROMBIN TIME/[id number] 09:55:00 Test Item Value Reference Range Interpretation [...] is2.5-3.5 for patients wiht mechanical heart valves.POCT-GLUCOSE [id number] 08:22:00 Test Item Value Reference Range Interpretation Comments POC-GLUCOSE METER 115 mg/dL 70-110 H : TESTED A T [facility] 6720 (BEAKER) (test code = [place], 1538) [address]: Provider Enrollment Specialist/Techni logan ID = [id number] for VIVIANE PEREZ [id number] 04:20:00 Test Item Value Reference Range Interpretation Comments PARTIAL THROMBOPLASTIN TIME 82.1 seconds 22.5-36.0 H (BEAKER) (test code = 760) While on warfarin.PROTHROMBIN TIME/[id number] 04:18:00 Test Item Value Reference Range Interpretation Comments PROTIME (BEAKER) (test code = 18.5 seconds 11.9-14.2 H 759) INR (BEAKER) (test code = 370) 1.6 <=5.9 Effective [...] 0-0 (BEAKER) (test code = 413) POCT-GLUCOSE [id number] 21:22:00 Test Item Value Reference Range Interpretation Comments POC-GLUCOSE METER 139 mg/dL 70-110 H : TESTED A T [facility] 6720 ([facility]) (test code = [facility], 1538) [address]: Provider Enrollment Specialist/Techni logan ID = [id number] for DE ANNIE [address] [id number] 20:50:00 Test Item Value Reference Range Interpretation Comments PARTIAL THROMBOPLASTIN TIME 69.4 seconds 22.5-36.0 H (AKER) (test code = 760) POCT-GLUCOSE [id number] 17:20:00 Test Item Value Reference Range Interpretation Comments POC-GLUCOSE METER 134 mg/dL 70-110 H : TESTED A T [facility] 6720 ([facility]) (test code [facility], = 1538) [address]: Provider Enrollment Specialist/Techni logan ID = [id number] for TSEG GAI, TSIGHEREDA [id number] 13:35:00 Test Item Value Reference Range Interpretation Comments PARTIAL THROMBOPLASTIN TIME 73.2 seconds 22.5-36.0 H (AKER) (test code = 760) POCT-GLUCOSE [id number] 11:44:00 Test Item Value Reference Range Interpretation Comments POC-GLUCOSE METER 81 mg/dL 70-110 : TESTED A T [facility] 6720 ([facility]) (test code [facility], = 1538) [address]: Provider Enrollment Specialist/Techni logan ID = [id number] for TSEG GAI, TSIGHEREDA POCT-GLUCOSE [id number] 08:22:00 Test Item Value Reference Range Interpretation Comments POC-GLUCOSE METER 105 mg/dL 70-110 : TESTED A T [facility] 6720 (BEAKER) (test code [facility], = 1538) [address]: Provider Enrollment Specialist/Techni logan ID = [id number] for DAYNE BAPTISTE [id number] 06:26:00 Test Item Value Reference Range Interpretation Comments PARTIAL THROMBOPLASTIN TIME 97.4 seconds 22.5-36.0 H (BEAKER) (test code = 760) While on warfarin.PROTHROMBIN TIME/[id number] 06:24:00 Test Item Value Reference Range Interpretation [...] wiht mechanical heart valves.While on warfarin.BASIC METABOLIC [id number] 06:22:00 Test Item Value Reference Range Interpretation [...] S NOT APPLICABLE FOR DIALYSIS PATIEN TS. Provider Enrollment Specialist ID - VARSHA MCBC (HEMOGRAM ONLY)2019-12-06 05:55:00 [...] WBC 0-0 (BEAKER) (test code = 413) [id number] 23:28:00 Test Item Value Reference Range Interpretation Comments PARTIAL THROMBOPLASTIN TIME 41.2 seconds 22.5-36.0 H (BEAKER) (test code = 760) POCT-GLUCOSE [id number] 21:32:00 Test Item Value Reference Range Interpretation Comments POC-GLUCOSE METER 123 mg/dL 70-110 H : TESTED A T [facility] 6720 (BEAKER) (test code = [place], 1538) [address]: Provider Enrollment Specialist/Techni logan ID = [id number] for DE NNIS, ANNIE [id number] 21:24:00 Test Item Value Reference Range Interpretation Comments PARTIAL THROMBOPLASTIN TIME 75.2 seconds 22.5-36.0 H (MIKE) (test code = 760) POCT-GLUCOSE [id number] 16:35:00 Test Item Value Reference Range Interpretation Comments POC-GLUCOSE METER 174 mg/dL 70-110 H : Notified RN/MD: TESTED (MIKE) (test code AT [facility] [address] [facility] = 1538) [facility], [address]: Provider Enrollment Specialist/Techni logan ID = [id number] for TSEG GAI, TSIGHEREDA POCT-GLUCOSE [id number] 13:25:00 Test Item Value Reference Range Interpretation Comments POC-GLUCOSE METER 136 mg/dL 70-110 H : TESTED A T [facility] 6720 (MIKE) (test code [facility], = 1538) [address]: Provider Enrollment Specialist/Techni logan ID = [id number] for TSEG GAI, TSIGHEREDA [id number] 13:02:00 Test Item Value Reference Range Interpretation Comments PARTIAL THROMBOPLASTIN TIME 102.3 seconds 22.5-36.0 H (MIKE) (test code = 760) Transesophageal [id number] 12:16:29Ejection FractionSLEH ECHO HEARTLAB MKCKESSON CPACSInterface, External Ris In - 12/05/2019 12:16 PM C DTTransesophageal Echocardiography Report (LINDA) Demographics Patient Name QUIANA VALLADARES Date of Study 12/05/2019 KARINA Gender Female Visit Number [id number] Race Room Number 2223 Number Date of 1955 Referring Physician Helio Buitrago MD Age 64 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 Customer Rob Zurita Interpreting Donato Beth MD Physician [...] is noted. Atrial septal position continuously bows kwuz-ev-npsnp, consistent with elevated LA pressure. Intermittently, with [...] bradycardia during the exam. 3D imaging (cpt 41123) rendering with interpretation was performed. Left Normal [...] Septum noted. Atrial septal position continuously bows kiyr-qo-ecoaz, consistent with elevated LA pressure. Intermittently, with [...] arch. Pericardium No significant pericardial effusion is visualized.[facility] POCT-GLUCOSE [id number] 07:44:00 Test Item Value Reference Range Interpretation Comments POC-GLUCOSE METER 122 mg/dL 70-110 H : TESTED A T [facility] 6720 (MIKE) (test code [facility], = 1538) 81954: Provider Enrollment Specialist/Techni logan ID = [id number] for DAYNE BAPTISTE [id number] 05:43:00 Test Item Value Reference Range Interpretation Comments PARTIAL THROMBOPLASTIN TIME 63.8 seconds 22.5-36.0 H (BEAKER) (test code = 760) While on warfarin.PROTHROMBIN TIME/[id number] 05:42:00 Test Item Value Reference Range Interpretation [...] 0-0 (BEAKER) (test code = 413) POCT-GLUCOSE [id number] 21:15:00 Test Item Value Reference Range Interpretation Comments POC-GLUCOSE METER 131 mg/dL 70-110 H : TESTED A T [facility] 6720 (BEAKER) (test code = [place], 1538) 70562: Provider Enrollment Specialist/Techni logan ID = [id number] for DE NNIS, ANNIE POCT-GLUCOSE [id number] 17:03:00 Test Item Value Reference Range Interpretation Comments POC-GLUCOSE METER 115 mg/dL 70-110 H : TESTED A T [facility] 6720 (BEAKER) (test code [facility], = 1538) 15196: Provider Enrollment Specialist/Techni logan ID = [id number] for DAYNE BAPTISTE [id number] 15:42:00 Test Item Value Reference Range Interpretation Comments PARTIAL THROMBOPLASTIN TIME 79.2 seconds 22.5-36.0 H (BEAKER) (test code = 760) POCT-GLUCOSE [id number] 11:47:00 Test Item Value Reference Range Interpretation Comments POC-GLUCOSE METER 106 mg/dL 70-110 : TESTED A T [facility] 6720 (BEAKER) (test code [facility], = 1538) 04436: Provider Enrollment Specialist/Techni logan ID = [id number] for DAYNE BAPTISTE BASIC METABOLIC [id number] 08:29:00 Test Item Value Reference Range Interpretation [...] S NOT APPLICABLE FOR DIALYSIS PATIEN TS. Provider Enrollment Specialist ID - EMERSONPOCT-GLUCOSE [id number] 08:24:00 Test Item Value Reference Range Interpretation Comments POC-GLUCOSE METER 111 mg/dL 70-110 H : TESTED A T [facility] 6720 (BEAKER) (test code [facility], = 1538) 54473: Provider Enrollment Specialist/Techni logan ID = [id number] for DAYNE BAPTISTE PT/[id number] 08:04:00 Test Item Value Reference Range Interpretation [...] heart valves.While on warfarin.While on warfarin. PROTHROMBIN TIME/[id number] 08:02:00 Test Item Value Reference Range Interpretation [...] WBC 0-0 (BEAKER) (test code = 413) PT/[id number] 23:55:00 Test Item Value Reference Range Interpretation [...] is2.5-3.5 for patients wiht mechanical heart valves.POCT-GLUCOSE [id number] 21:15:00 Test Item Value Reference Range Interpretation Comments POC-GLUCOSE METER 112 mg/dL 70-110 H : TESTED Chandan T [facility] 6720 (BEAKER) (test code = [place], 1538) 83238: Provider Enrollment Specialist/Techni logan ID = [id number] for CIELO HERNANDEZ PT/[id number] 17:19:00 Test Item Value Reference Range Interpretation [...] is2.5-3.5 for patients wiht mechanical heart valves.POCT-GLUCOSE [id number] 17:06:00 Test Item Value Reference Range Interpretation Comments POC-GLUCOSE METER 143 mg/dL 70-110 H : TESTED A T [facility] 6720 (BEAKER) (test code = [facility], 1538) 20604: Provider Enrollment Specialist/Techni logan ID = [id number] for AN DERSON, SHANTERA POCT-GLUCOSE [id number] 11:39:00 Test Item Value Reference Range Interpretation Comments POC-GLUCOSE METER 128 mg/dL 70-110 H : TESTED A T [facility] 6720 (BEAKER) (test code = [facility], 1538) 09349: Provider Enrollment Specialist/Techni logan ID = [id number] for AN DERSON, SHANTERA POCT-GLUCOSE [id number] 08:01:00 Test Item Value Reference Range Interpretation Comments POC-GLUCOSE METER 96 mg/dL 70-110 : TESTED A T [facility] 6720 (BEAKER) (test code = [facility], 1538) 46850: Provider Enrollment Specialist/Techni logan ID = [id number] for MILI RSJOSELO, SHANTERA PT/[id number] 06:28:00 Test Item Value Reference Range Interpretation [...] heart valves.While on warfarin.While on warfarin. PROTHROMBIN TIME/[id number] 06:12:00 Test Item Value Reference Range Interpretation [...] 150-450 code = 756) MEAN PLATELET VOLUME ([facility]) 9.2 fL 9.4-12.3 L (test code = 754) NUCLEATED RED BLOOD CELLS 0 /100 WBC 0-0 ([facility]) (test code = 413) POCT-GLUCOSE [id number] 20:49:00 Test Item Value Reference Range Interpretation Comments POC-GLUCOSE METER 102 mg/dL 70-110 : TESTED A T [facility] 6720 ([facility]) (test code = [facility], 1538) 13475: Provider Enrollment Specialist/Techni logan ID = [id number] for DO VE, CHEKARA POCT-GLUCOSE [id number] 18:32:00 Test Item Value Reference Range Interpretation Comments POC-GLUCOSE METER 132 mg/dL 70-110 H : TESTED A T [facility] 6720 ([facility]) (test code = [facility], [facility]8) 29743: Provider Enrollment Specialist/Techni logan ID = [id number] for AK INSONU, PEEWEE POCT-GLUCOSE [id number] 18:28:00 Test Item Value Reference Range Interpretation Comments POC-GLUCOSE METER 85 mg/dL 70-110 : TESTED A T [facility] 6720 ([facility]) (test code = [facility], 1538) 70908: Provider Enrollment Specialist/Techni logan ID = [id number] for LUPE TAYO, PEEWEE POCT-GLUCOSE [id number] 18:26:00 Test Item Value Reference Range Interpretation Comments POC-GLUCOSE METER 111 mg/dL 70-110 H : TESTED A T [facility] 6720 ([facility]) (test code = [facility], 1538) 69397: Provider Enrollment Specialist/Techni logan ID = [id number] for Ri ni, Sebastian POCT-GLUCOSE [id number] 18:24:00 Test Item Value Reference Range Interpretation Comments POC-GLUCOSE METER 104 mg/dL 70-110 : TESTED A T [facility] 6720 ([facility]) (test code = [facility], 1538) 70588: Provider Enrollment Specialist/Techni logan ID = [id number] for AK INSONU, PEEWEE [id number] 06:50:00 Test Item Value Reference Range Interpretation Comments D-Dimer, Quant (test code 0.42 <0.50 MG/L FEU = 25609-3) JANETTE (test code = JANETTE) Intended Use: [...] warfarin. Lab Interpretation (test Normal code = 55486-9) [id number] 06:50:00 Test Item Value Reference Range Interpretation [...] of thrombosis is within 95-100% range.While on warfarin.PT/[id number] 06:49:00 Test Item Value Reference Range Interpretation [...] heart valves.While on warfarin.While on warfarin. PROTHROMBIN TIME/[id number] 06:47:00 Test Item Value Reference Range Interpretation [...] WBC 0-0 (BEAKER) (test code = 413) [id number] 01:34:00 Test Item Value Reference Range Interpretation Comments PARTIAL THROMBOPLASTIN TIME 91.6 seconds 22.5-36.0 H (BEAKER) (test code = 760) POCT-GLUCOSE [id number] 20:46:00 Test Item Value Reference Range Interpretation Comments POC-GLUCOSE METER 118 mg/dL 70-110 H : TESTED A T [facility] 6720 (MIKE) (test code = [place], 1538) 66557: Provider Enrollment Specialist/Techni logan ID = [id number] for ANNIE BARCENAS [id number] 17:59:00 Test Item Value Reference Range Interpretation Comments PARTIAL THROMBOPLASTIN TIME 78.3 seconds 22.5-36.0 H (MIKE) (test code = 760) POCT-GLUCOSE [id number] 17:22:00 Test Item Value Reference Range Interpretation Comments POC-GLUCOSE METER 144 mg/dL 70-110 H : TESTED A T [facility] 6720 (MIKE) (test code = [place], 1538) 75118: Provider Enrollment Specialist/Techni logan ID = [id number] for PEEWEE OTERO Venous doppler legs [id number] 13:05:55Ejection FractionSLE ECHO HEARTLAB MKCKESSON CPACSRight Impression1. [...] of Study 12/01/2019 Age 64 Visit Number [id number] Gender Female Accession Number [id number] Date of 1955 [facility] Number 2223 Physician MD Nicolasa Manager Customer Nomi Lara T Interpreting Christa Carter Physician ProcedureType of Study: [...] in cm/s ; Diameters are measured in [facility] POCT-GLUCOSE [id number] 12:55:00 Test Item Value Reference Range Interpretation Comments POC-GLUCOSE METER 100 mg/dL 70-110 : TESTED A T [facility] 6720 (MIKE) (test code = [place], 1538) 39925: Provider Enrollment Specialist/Techni logan ID = [id number] for PEEWEE OTERO [id number] 10:36:00 Test Item Value Reference Range Interpretation Comments PARTIAL THROMBOPLASTIN TIME 52.8 seconds 22.5-36.0 H (MIKE) (test code = 760) CBC (HEMOGRAM ONLY)2019-12-01 [...] 0-0 (BEAKER) (test code = 413) POCT-GLUCOSE [id number] 08:11:00 Test Item Value Reference Range Interpretation Comments POC-GLUCOSE METER 99 mg/dL 70-110 : TESTED A T [facility] 6720 (BEAKER) (test code = [place], 1538) 44079: Provider Enrollment Specialist/Techni logan ID = [id number] for PEEWEE WILSON [id number] 02:54:00 Test Item Value Reference Range Interpretation Comments PARTIAL THROMBOPLASTIN TIME 42.2 seconds 22.5-36.0 H (BEAKER) (test code = 760) PT/[id number] 00:16:00 Test Item Value Reference Range Interpretation [...] is2.5-3.5 for patients wiht mechanical heart valves.POCT-GLUCOSE [id number] 21:16:00 Test Item Value Reference Range Interpretation Comments POC-GLUCOSE METER 125 mg/dL 70-110 H : TESTED A T [facility] 6720 (Dryad) (test code = [employer] [facility], 1538) 10283: Provider Enrollment Specialist/Techni logan ID = [id number] for DE NNIS, ANNIE POCT-GLUCOSE [id number] 18:00:00 Test Item Value Reference Range Interpretation Comments POC-GLUCOSE METER 126 mg/dL 70-110 H : TESTED A T [facility] 6720 (Dryad) (test code = [employer] [facility], 1538) 64973: Provider Enrollment Specialist/Techni logan ID = [id number] for RO HEAVENLYMAMIE GARRETT 2D Echo W/Doppler(CW/PW/Color)2019-11-30 17:12:06Ejection FractionSLE ECHO HEARTLAB MKCKESSON CPACSInterface, External Ris In - 11/30/2019 5:12 PM C DTTransthoracic Echocardiography Report (TTE) Demographics Patient Name QUIANA VALLADARES Date ofStudy 11/30/2019 KARINA Gender Female Visit Number [id number] Race Room Number 2223 Number Date of 1955 Referring Physician Briseida blunt MD Age 64 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 Customer Viola Hargrove Interpreting Donato Beth MD Physician [...] CO: 3.48 l/min LVOT CI: 2.26 l/min/m^2[facility]APTT2020-04-02 16:10:00 Test Item Value Reference Range Interpretation Comments PARTIAL THROMBOPLASTIN TIME 28.0 seconds 22.5-36.0 (BEAKER) (test code = 760) POCT-GLUCOSE [id number] 12:43:00 Test Item Value Reference Range Interpretation Comments POC-GLUCOSE METER 94 mg/dL 70-110 : TESTED A T [facility] 6720 (BEAKER) (test code = [facility], 1538) 04181: Provider Enrollment Specialist/Techni logan ID = [id number] for THOR ERS, KONGECA POCT-GLUCOSE [id number] 08:13:00 Test Item Value Reference Range Interpretation Comments POC-GLUCOSE METER 121 mg/dL 70-110 H : TESTED A T [facility] 6720 (BEAKER) (test code = [facility], 1538) 96140: Provider Enrollment Specialist/Techni logan ID = [id number] for KALYANI DGERS, KONGECA [id number] 04:38:00 Test Item Value Reference Range Interpretation [...] code = 413) MR, MRA, BRAIN, WITHOUT [id number] 23:14:00Reason for exam:->Ischemic Stroke EvaluationFINAL REPORT MR, [...] shift or hydrocephalus. No acute intracranial hemorrhage. Bwzl-ek-mfpetvii nonspecific supratentorial and infratentorial white matter T2 [...] cervical or cranial circulation. Signed: Silvano Bruce Verified Date/Time: 11/29/2019 23:14:20 MR, MRA, NECK, WITHOUT IV [id number] 23:14:00Reason for exam:->Ischemic Stroke EvaluationFINAL REPORT MR, [...] shift or hydrocephalus. No acute intracranial hemorrhage. Vtok-ko-ffdoyyrt nonspecific supratentorial and infratentorial white matter T2 [...] cervical or cranial circulation. Signed: Silvano Bruce Verified Date/Time: 11/29/2019 23:14:20 MR, BRAIN, WITHOUT [id number] 23:14:00Reason for exam:->Ischemic Stroke EvaluationFINAL REPORT MR, [...] shift or hydrocephalus. No acute intracranial hemorrhage. Xjwz-fw-yocgqnrt nonspecific supratentorial and infratentorial white matter T2 [...] Date/Time: 11/29/2019 23:14:20 MRA head without IV [id number] 23:14:00Interface, External Ris In - 11/29/2019 11:16 [...] or hydrocephalus. No a cute intracranial hemorrhage. Damc-xf-jdiekdqk nonspecific supratentorial and infratentorial white matter T2 [...] Silvano Bruce MDReport Verified Date/Time: 11/29/2019 23:14:20 [facility] [id number] 23:14:00Interface, External Ris In - 11/29/2019 11:16 [...] shift or hydrocephalus. No acute intracranial hemorrhage. Tczl-kh-ztfbkolr nonspecific supratentorial and infratentorial white matter T2 [...] Silvano Bruce MDReport Verified Date/Time: 11/29/2019 23:14:20 [facility]MR [facility] without IV [id number] 23:14:00Interface, External Ris In - 11/29/2019 11:16 [...] shift or hydrocephalus. No acute intracranial hemorrhage. Zpcu-fo-gumseqhh nonspecific supratentorial and infratentorial white matter T2 [...] Silvano Bruce MDReport Verified Date/Time: 11/29/2019 23:14:20 [facility]/Free T4 If [id number] 22:52:00 Test Item Value Reference Range Interpretation Comments TSH (test code = 28121-9) 0.87 0.35- 4.94 uIU/mL JANETTE (test code = JANETTE) Provider Enrollment Specialist ID - DB Lab Interpretation (test Normal code = 01426-1) [facility] HospitalVitamin B12 and [id number] 22:52:00 Test Item Value Reference Range Interpretation Comments Vitamin B12 (test code = 335 pg/mL 547-958 9033-9) Folate (test code = 2284-8) 11.7 ng/mL >=7.0 JANETTE (test code = JANETTE) Provider Enrollment Specialist ID - DB Lab Interpretation (test Normal code = 26971-9) [facility] HospitalTS/FREE T4 IF [id number] 22:52:00 Test Item Value Reference Range Interpretation Comments THYROID STIMULATING HORMONE 0.87 uIU/mL 0.35-4.94 (BEAKER) (test code = 772) Provider Enrollment Specialist ID - DBVITAMIN B12 AND [id number] 22:52:00 Test Item Value Reference Range Interpretation Comments VITAMIN B12 (BEAKER) (test code = 335 pg/mL 213-816 774) FOLATE (BEAKER) (test code = 362) 11.7 ng/mL >=7.0 Provider Enrollment Specialist ID - DBHemoglobin [id number] 22:12:00 Test Item Value Reference Range Interpretation Comments Hemoglobin A1C (test code = 4548-4) 5.7 % 4.3-6.1 Lab Interpretation (test code = Normal 56349-5) [facility] HospitalHEMOGLOBIN [id number] 22:12:00 Test Item Value Reference Range Interpretation Comments HEMOGLOBIN A1C (BEAKER) (test code = 5.7 % 4.3-6.1 368) Lipid [id number] 21:49:00 Test Item Value Reference Range Interpretation Comments Triglycerides (test 143 mg/dL code = 2571-8) Cholesterol (test code 158 mg/dL = 2093-3) HDL (test code = 45 mg/dL 2085-9) LDL Calculated (test 84 mg/dL code = 81626-0) JANETTE (test code = JANETTE) Triglyceride Reference Range: Low Risk <150 Borderline 150-199 High Risk 200-499 Very High Risk >=500 Cholesterol Reference Range: Low Risk <200 Borderline 200-239 High Risk >240 HDL Cholesterol Reference Range: Low Risk >=60 High Risk <40 LDL Cholesterol Reference Range: Optimal <100 Near Optimal 100-129 Borderline 130-159 High 160-189 Very High >=190 Provider Enrollment Specialist ID - DB [facility] HospitalLIPID [id number] 21:49:00 Test Item Value Reference Range Interpretation [...] Borderline 130-159 High 160-189 Very High >=190 Provider Enrollment Specialist ID - [id number] 21:41:00 Test Item Value Reference Range Interpretation Comments PARTIAL THROMBOPLASTIN TIME 29.8 seconds 22.5-36.0 (BEAKER) (test code = 760) 6 hours after starting heparin infusion and as indicated per sliding scale Platelet [id number] 21:32:00 Test Item Value Reference Range Interpretation Comments Platelets (test code = 256 150- 450 K/CU MM 777-3) JANETTE (test code = JANETTE) Provider Enrollment Specialist ID - [id number] Lab Interpretation (test Normal code = 83692-0) [facility] HospitalPLATELET [id number] 21:32:00 Test Item Value Reference Range Interpretation Comments PLATELET COUNT (BEAKER) (test 256 K/CU MM 150-450 code = 756) Provider Enrollment Specialist ID - [id number]-GLUCOSE [id number] 20:07:00 Test Item Value Reference Range Interpretation Comments POC-GLUCOSE METER 114 mg/dL 70-110 H : TESTED A T [facility] 6720 (BEAKER) (test code = [facility], 1538) 93532: Provider Enrollment Specialist/Techni logan ID = [id number] for AZIZA HILTON POCT-GLUCOSE [id number] 12:13:00 Test Item Value Reference Range Interpretation Comments POC-GLUCOSE METER 142 mg/dL 70-110 H : TESTED A T [facility] 6720 (BEAKER) (test code = [facility], 1538) 42198: Provider Enrollment Specialist/Techni logan ID = [id number] for MOOKIE SUAREZ, MURIELWITHA POCT-GLUCOSE [id number] 08:40:00 Test Item Value Reference Range Interpretation Comments POC-GLUCOSE METER 93 mg/dL 70-110 : TESTED A T [facility] 6720 (BEAKER) (test code = [facility], 1538) 75115: Provider Enrollment Specialist/Techni logan ID = [id number] for THEE ALCAZAR, HIWITHA [id number] 06:28:00 Test Item Value Reference Range Interpretation Comments Phosphorus (test code = 4.3 mg/dL 2.3-4.7 2777-1) JANETTE (test code = JANETTE) Provider Enrollment Specialist ID - DB Lab Interpretation (test Normal code = 77179-9) [facility] HospitalPHOSPHORUS2020-03-29 06:28:00 Test Item Value Reference Range Interpretation Comments PHOSPHORUS (BEAKER) (test code = 4.3 mg/dL 2.3-4.7 604) Provider Enrollment Specialist ID - [id number] 06:28:00 Test Item Value Reference Range Interpretation Comments MAGNESIUM (BEAKER) (test code = 2.1 mg/dL 1.6-2.6 627) Provider Enrollment Specialist ID - DBBASIC METABOLIC [id number] 06:28:00 Test Item Value Reference Range Interpretation [...] S NOT APPLICABLE FOR DIALYSIS PATIEN TS. Provider Enrollment Specialist ID - [id number] 05:12:00 Test Item Value Reference Range Interpretation Comments PARTIAL THROMBOPLASTIN TIME 30.3 seconds 22.5-36.0 (BEAKER) (test code = 760) PROTHROMBIN TIME/[id number] 05:11:00 Test Item Value Reference Range Interpretation [...] 0-0 (BEAKER) (test code = 413) POCT-GLUCOSE [id number] 21:38:00 Test Item Value Reference Range Interpretation Comments POC-GLUCOSE METER 141 mg/dL 70-110 H : TESTED A T [facility] 6720 (BEAKER) (test code = [facility], 153) 60617: Provider Enrollment Specialist/Techni logan ID = [id number] for DANIELLE CARTER SE POCT-GLUCOSE [id number] 18:28:00 Test Item Value Reference Range Interpretation Comments POC-GLUCOSE METER 94 mg/dL 70-110 : TESTED A T [facility] 6720 (BEAKER) (test code = [facility], 153) 98035: Provider Enrollment Specialist/Techni logan ID = [id number] for RAJESH MORRISSEY POCT-GLUCOSE [id number] 17:00:00 Test Item Value Reference Range Interpretation Comments POC-GLUCOSE METER 100 mg/dL 70-110 : TESTED A T [facility] 6720 (BEAKER) (test code = [facility], 1538) 46581: Provider Enrollment Specialist/Techni logan ID = [id number] for KELLY RUDOLPH POCT-GLUCOSE [id number] 12:02:00 Test Item Value Reference Range Interpretation Comments POC-GLUCOSE METER 196 mg/dL 70-110 H : TESTED A T [facility] 6720 (BEAKER) (test code = [facility], 1538) 81612: Provider Enrollment Specialist/Techni logan ID = [id number] for MURIEL MIMSWITHA POCT-GLUCOSE [id number] 08:12:00 Test Item Value Reference Range Interpretation Comments POC-GLUCOSE METER 119 mg/dL 70-110 H : TESTED A T [facility] 6720 (BEAKER) (test code = [facility], 153) 65692: Provider Enrollment Specialist/Techni logan ID = [id number] for MOOKIE SUAREZ, MURIELWITHA [id number] 05:45:00 Test Item Value Reference Range Interpretation Comments PHOSPHORUS (BEAKER) (test code = 5.2 mg/dL 2.3-4.7 H 604) Provider Enrollment Specialist ID - KESHIA [id number] 05:45:00 Test Item Value Reference Range Interpretation Comments MAGNESIUM (BEAKER) (test code = 1.9 mg/dL 1.6-2.6 627) Provider Enrollment Specialist ID - KESHIA LBASIC METABOLIC [id number] 05:45:00 Test Item Value Reference Range Interpretation [...] S NOT APPLICABLE FOR DIALYSIS PATIEN TS. Provider Enrollment Specialist ID - PIAYA LPROTHROMBIN TIME/[id number] 05:42:00 Test Item Value Reference Range Interpretation [...] INR is2.5-3.5 for patients wiht mechanical heart valves.[id number] 05:42:00 Test Item Value Reference Range Interpretation [...] 0-0 (BEAKER) (test code = 413) POCT-GLUCOSE [id number] 21:27:00 Test Item Value Reference Range Interpretation Comments POC-GLUCOSE METER 139 mg/dL 70-110 H : TESTED A T [facility] 6720 (BEAKER) (test code = [facility], 1538) 16060: Provider Enrollment Specialist/Techni logan ID = [id number] for DANIELEL CARTER SE POCT-GLUCOSE [id number] 12:27:00 Test Item Value Reference Range Interpretation Comments POC-GLUCOSE METER 149 mg/dL 70-110 H : TESTED A T [facility] 6720 (BEAKER) (test code = [facility], 1538) 61098: Provider Enrollment Specialist/Techni logan ID = [id number] for KELLY RUDOLPH CT, BRAIN, WITHOUT [id number] 11:04:00FINAL REPORT CT Head without contrast CLINICAL [...] MDReport Verified Date/Time: 11/24/2019 11:04:11 Reading Location: [facility] C013V Neuro Reading Room CT brain without IV [id number] 11:04:00Interface, External Ris In - 11/24/2019 11:06 [...] MDReport Verified Date/Time: 11/24/2019 11:04:11 Reading Location: [address] Neuro [facility] [id number] 08:10:00 Test Item Value Reference Range Interpretation Comments POC-GLUCOSE METER 112 mg/dL 70-110 H : [facility]20 (BEAKER) (test code = [place], 1538) 43604: Provider Enrollment Specialist/Techni logan ID = [id number] for KELLY RUDOLPH [id number] 05:13:00 Test Item Value Reference Range Interpretation Comments PHOSPHORUS (BEAKER) (test code = 3.9 mg/dL 2.3-4.7 604) Provider Enrollment Specialist ID - KESHIA [id number] 05:13:00 Test Item Value Reference Range Interpretation Comments MAGNESIUM (BEAKER) (test code = 2.2 mg/dL 1.6-2.6 627) Provider Enrollment Specialist ID - KESHIA LBASIC METABOLIC [id number] 05:13:00 Test Item Value Reference Range Interpretation [...] S NOT APPLICABLE FOR DIALYSIS PATIEN TS. Provider Enrollment Specialist ID - PIAYA [id number] 05:06:00 Test Item Value Reference Range Interpretation Comments PARTIAL THROMBOPLASTIN TIME 31.0 seconds 22.5-36.0 (BEAKER) (test code = 760) PROTHROMBIN TIME/[id number] 05:05:00 Test Item Value Reference Range Interpretation [...] 0-0 (BEAKER) (test code = 413) POCT-GLUCOSE [id number] 21:40:00 Test Item Value Reference Range Interpretation Comments POC-GLUCOSE METER 89 mg/dL 70-110 : TESTED A T [facility] 6720 ([facility]) (test code = [place]ORE[place] [facility], 1538) 11374: Provider Enrollment Specialist/Techni logan ID = [id number] for CLEVELAND DIAMOND 2D Echo W/Doppler(CW/PW/Color)2019-11-23 15:20:12Ejection FractionSLEH ECHO HEARTLAB MKCKESSON CPACSInterface, External Ris In - 11/23/2019 3:20 PM C DTTransthoracic Echocardiography Report (TTE) Demographics Patient Name QUIANA VALLADARES Date of Study 11/23/2019 KARINA Gender Female Visit Number [id number] Race Room Number 2CV24 Number Date of 1955 Referring Jonathan Morillo Physician MD Shantelle 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 64 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 Customer Karla Quintero [facility] Photogrammetry Airplane Pilot Remy Arizmendi Interpreting Donato Beth MD Physician [...] CO: 3.98 l/min LVOT CI: 2.52 l/min/m^2[facility] POCT-GLUCOSE [id number] 13:43:00 Test Item Value Reference Range Interpretation Comments POC-GLUCOSE METER 100 mg/dL 70-110 : TESTED A T [facility] 6720 (BEAKER) (test code = [place], 1538) [address]: Provider Enrollment Specialist/Techni logan ID = [id number] for KELLY RUDOLPH CBC W/PLT COUNT & AUTO [id number] 03:48:00 Test Item Value Reference Range Interpretation [...] 0-1 PERCENT (BEAKER) (test code = 2801) [id number] 03:47:00 Test Item Value Reference Range Interpretation Comments PHOSPHORUS (BEAKER) (test code = 3.6 mg/dL 2.3-4.7 604) Provider Enrollment Specialist ID - VARSHA [id number] 03:47:00 Test Item Value Reference Range Interpretation Comments MAGNESIUM (BEAKER) (test code = 2.2 mg/dL 1.6-2.6 627) Provider Enrollment Specialist ID - VARSHA MBASIC METABOLIC [id number] 03:47:00 Test Item Value Reference Range Interpretation [...] S NOT APPLICABLE FOR DIALYSIS PATIEN TS. Provider Enrollment Specialist ID - VARSHA [id number] 03:43:00 Test Item Value Reference Range Interpretation Comments PARTIAL THROMBOPLASTIN TIME 29.4 seconds 22.5-36.0 (BEAKER) (test code = 760) PROTHROMBIN [id number] 03:42:00 Test Item Value Reference Range Interpretation [...] INR is2.5-3.5 for patients wiht mechanical heart valves.[id number] 14:03:00 Test Item Value Reference Range Interpretation Comments ACTIVATED CLOTTING TIME 400 sec : 74 -137 seconds, (BEAKER) (test code = Baseli ne: TESTED AT 441) [facility] [address] [place] [address], 770 30: Provider Enrollment Specialist/Techni logan ID = [id number] for ALISON BROUSSARD [id number] 14:02:00 Test Item Value Reference Range Interpretation Comments ACTIVATED CLOTTING TIME 285 sec : 74 -137 seconds, (BEAKER) (test code = Baseli ne: TESTED AT 441) [place] [id number] [facility], 770 30: Provider Enrollment Specialist/Techni logan ID = [id number] for ALISON BROUSSARD RAD, CHEST, 1 VIEW, NON [id number] 11:37:00Reason for exam:->Post-op TAVRShould this be performed [...] pulmonary edema. No fracture. Signed: Akbar Graham MDReport Verified Date/Time: 11/22/2019 11:37:14 Reading Location: [address] Radiology Reading Room [id number] 11:08:00 Test Item Value Reference Range Interpretation Comments PHOSPHORUS (BEAKER) (test code = 3.5 mg/dL 2.3-4.7 604) Provider Enrollment Specialist ID - BRIONNA [id number] 11:08:00 Test Item Value Reference Range Interpretation Comments MAGNESIUM (BEAKER) (test code = 2.2 mg/dL 1.6-2.6 627) Provider Enrollment Specialist ID Sheridan STATON FBASIC METABOLIC [id number] 11:08:00 Test Item Value Reference Range Interpretation [...] S NOT APPLICABLE FOR DIALYSIS PATIEN TS. Provider Enrollment Specialist ID Sheridan STATON [id number] 11:06:00 Test Item Value Reference Range Interpretation Comments PARTIAL THROMBOPLASTIN TIME 29.9 seconds 22.5-36.0 (BEAKER) (test code = 760) PROTHROMBIN [id number] 11:05:00 Test Item Value Reference Range Interpretation [...] mechanical heart valves.CBC W/PLT COUNT & AUTO [id number] 11:03:00 Test Item Value Reference Range Interpretation [...] 0-1 PERCENT (BEAKER) (test code = 2801) BLOOD GAS, [id number] 10:54:00 Test Item Value Reference Range Interpretation [...] (test code = 1819) 36.0 % GLUCOSE-STAT [id number] 10:54:00 Test Item Value Reference Range Interpretation Comments GLUCOSE RANDOM (BEAKER) (test code 121 mg/dL 70-110 H = 652) HGB/HCT (H&H) - STAT [id number] 10:54:00 Test Item Value Reference Range Interpretation Comments HEMOGLOBIN (BEAKER) (test code = 11.0 g/dL 12.0-15.0 L 410) HEMATOCRIT (BEAKER) (test code = 32.0 % 36.0-45.0 L 411) SODIUM NA-STAT [id number] 10:53:00 Test Item Value Reference Range Interpretation Comments SODIUM (BEAKER) (test code = 381) 137 meq/L 135-148 POTASSIUM-STAT [id number] 10:53:00 Test Item Value Reference Range Interpretation Comments POTASSIUM (BEAKER) (test code = 3.7 meq/L 3.6-5.5 379) CALCIUM, [id number] 10:53:00 Test Item Value Reference Range Interpretation Comments CALCIUM IONIZED (BEAKER) (test 1.14 mmol/L 1.12-1.27 code = 698) PH, BLOOD (BEAKER) (test code = 7.41 1810) [id number] 05:57:00 Test Item Value Reference Range Interpretation Comments PHOSPHORUS (BEAKER) (test code = 3.5 mg/dL 2.3-4.7 604) Provider Enrollment Specialist ID - VARSHA [id number] 05:57:00 Test Item Value Reference Range Interpretation Comments MAGNESIUM (BEAKER) (test code = 2.0 mg/dL 1.6-2.6 627) Provider Enrollment Specialist ID - VARSHA MBASIC METABOLIC [id number] 05:57:00 Test Item Value Reference Range Interpretation [...] S NOT APPLICABLE FOR DIALYSIS PATIEN TS. Provider Enrollment Specialist ID - VARSHA [id number] 05:45:00 Test Item Value Reference Range Interpretation Comments PARTIAL THROMBOPLASTIN TIME 30.2 seconds 22.5-36.0 (BEAKER) (test code = 760) PROTHROMBIN [id number] 05:44:00 Test Item Value Reference Range Interpretation [...] mechanical heart valves.CBC W/PLT COUNT & AUTO [id number] 05:40:00 Test Item Value Reference Range Interpretation [...] PERCENT (BEAKER) (test code = 2801) POCT-GLUCOSE [id number] 05:14:00 Test Item Value Reference Range Interpretation Comments POC-GLUCOSE METER 117 mg/dL 70-110 H : TESTED A T [facility] 6720 (BEAKER) (test code = [facility], 153) 93[address]: Provider Enrollment Specialist/Techni logan ID = [id number] for DA VIS, [place] POCT-GLUCOSE [id number] 21:22:00 Test Item Value Reference Range Interpretation Comments POC-GLUCOSE METER 144 mg/dL 70-110 H : TESTED A T [facility] 6720 (BEAKER) (test code = [facility], 153) 52407: Provider Enrollment Specialist/Techni logan ID = [id number] for DA VIS, [place] POCT-GLUCOSE [id number] 18:38:00 Test Item Value Reference Range Interpretation Comments POC-GLUCOSE METER 115 mg/dL 70-110 H : TESTED A T [facility] 6720 (BEAKER) (test code = [facility], 1538) 36[address]: Provider Enrollment Specialist/Techni logan ID = [id number] for KELLY RUDOLPH POCT-GLUCOSE [id number] 12:07:00 Test Item Value Reference Range Interpretation Comments POC-GLUCOSE METER 124 mg/dL 70-110 H : TESTED A T [facility] 6720 (BEAKER) (test code = LORE[place] [facility], 1538) [address]: Provider Enrollment Specialist/Techni logan ID = [id number] for KELLY RUDOLPH POCT-GLUCOSE [id number] 08:04:00 Test Item Value Reference Range Interpretation Comments POC-GLUCOSE METER 147 mg/dL 70-110 H : TESTED A T [facility] 6720 (BEAKER) (test code = [facility] Nikki [facility], 1538) 05[address]: Provider Enrollment Specialist/Techni logan ID = [id number] for KELLY RUDOLPH [id number] 05:49:00 Test Item Value Reference Range Interpretation Comments PHOSPHORUS (BEAKER) (test code = 3.7 mg/dL 2.3-4.7 604) Provider Enrollment Specialist ID - VARSHA [id number] 05:49:00 Test Item Value Reference Range Interpretation Comments MAGNESIUM (BEAKER) (test code = 2.0 mg/dL 1.6-2.6 627) Provider Enrollment Specialist ID - VARSHA MBASIC METABOLIC [id number] 05:49:00 Test Item Value Reference Range Interpretation [...] S NOT APPLICABLE FOR DIALYSIS PATIEN TS. Provider Enrollment Specialist ID - VARSHA MPOCT-GLUCOSE [id number] 21:18:00 Test Item Value Reference Range Interpretation Comments POC-GLUCOSE METER 133 mg/dL 70-110 H : TESTED A T [facility] 6720 (BEAKER) (test code = [facility], 1538) 045[address]: Provider Enrollment Specialist/Techni logan ID = [id number] for DANIELLE CARTER SE POCT-GLUCOSE [id number] 17:21:00 Test Item Value Reference Range Interpretation Comments POC-GLUCOSE METER 113 mg/dL 70-110 H : TESTED A T [facility] 6720 (BEAKER) (test code = [facility], 1538) 27205: Provider Enrollment Specialist/Techni logan ID = [id number] for KELLY RUDOLPH POCT-GLUCOSE [id number] 12:13:00 Test Item Value Reference Range Interpretation Comments POC-GLUCOSE METER 95 mg/dL 70-110 : TESTED A T [facility] 6720 (BEAKER) (test code = [facility], 1538) 93046: Provider Enrollment Specialist/Techni logan ID = [id number] for FAINA MORGAN POCT-GLUCOSE [id number] 08:03:00 Test Item Value Reference Range Interpretation Comments POC-GLUCOSE METER 140 mg/dL 70-110 H : TESTED A T [facility] 6720 (BEAKER) (test code = [facility], 1538) 04382: Provider Enrollment Specialist/Techni logan ID = [id number] for FAINA FOSTER [id number] 06:24:00 Test Item Value Reference Range Interpretation Comments PHOSPHORUS (BEAKER) (test code = 3.9 mg/dL 2.3-4.7 604) Provider Enrollment Specialist ID - KESHIA [id number] 06:24:00 Test Item Value Reference Range Interpretation Comments MAGNESIUM (BEAKER) (test code = 2.0 mg/dL 1.6-2.6 627) Provider Enrollment Specialist ID - KESHIA LBASIC METABOLIC [id number] 06:24:00 Test Item Value Reference Range Interpretation [...] S NOT APPLICABLE FOR DIALYSIS PATIEN TS. Provider Enrollment Specialist ID - PIAYA LPOCT-GLUCOSE [id number] 21:28:00 Test Item Value Reference Range Interpretation Comments POC-GLUCOSE METER 137 mg/dL 70-110 H : TESTED A T [facility] 6720 ([employer]) (test code = [facility], 153) 43602: Provider Enrollment Specialist/Techni logan ID = [id number] for DA VIS, [place] POCT-GLUCOSE [id number] 17:51:00 Test Item Value Reference Range Interpretation Comments POC-GLUCOSE METER 115 mg/dL 70-110 H : TESTED A T [facility] 6720 (BEAKER) (test code = [facility], 1538) 65321: Provider Enrollment Specialist/Techni logan ID = [id number] for ZA VALA, ERANDY POCT-GLUCOSE [id number] 12:30:00 Test Item Value Reference Range Interpretation Comments POC-GLUCOSE METER 98 mg/dL 70-110 : TESTED A T [facility] 6720 (BEAKER) (test code = [facility] Performance Lab [facility], 1538) 92737: Provider Enrollment Specialist/Techni logan ID = [id number] for ZAVA LA, ERANDY POCT-GLUCOSE [id number] 07:42:00 Test Item Value Reference Range Interpretation Comments POC-GLUCOSE METER 88 mg/dL 70-110 : TESTED A T [facility] 6720 (BEAKER) (test code = [facility], 1538) 48380: Provider Enrollment Specialist/Techni logan ID = [id number] for INDIRA MOODY [id number] 06:09:00 Test Item Value Reference Range Interpretation Comments PHOSPHORUS (BEAKER) (test code = 3.7 mg/dL 2.3-4.7 604) Provider Enrollment Specialist ASIA SCHMITT [id number] 06:09:00 Test Item Value Reference Range Interpretation Comments MAGNESIUM (BEAKER) (test code = 1.9 mg/dL 1.6-2.6 627) Provider Enrollment Specialist ID Sheridan SCHMITT LBASIC METABOLIC [id number] 06:09:00 Test Item Value Reference Range Interpretation [...] S NOT APPLICABLE FOR DIALYSIS PATIEN TS. Provider Enrollment Specialist ID Sheridan SCHMITT LPOCT-GLUCOSE [id number] 21:34:00 Test Item Value Reference Range Interpretation Comments POC-GLUCOSE METER 122 mg/dL 70-110 H : TESTED A T [facility] 6720 (BEAKER) (test code = [facility], 1538) 54192: Provider Enrollment Specialist/Techni logan ID = [id number] for COOKIE AMBROSIO [place] POCT-GLUCOSE [id number] 17:18:00 Test Item Value Reference Range Interpretation Comments POC-GLUCOSE METER 139 mg/dL 70-110 H : TESTED A T [facility] 6720 (BEAKER) (test code = [facility], 1538) 71759: Provider Enrollment Specialist/Techni logan ID = [id number] for INDIRA SCHERER POCT-GLUCOSE [id number] 12:23:00 Test Item Value Reference Range Interpretation Comments POC-GLUCOSE METER 78 mg/dL 70-110 : TESTED A T [facility] 6720 (BEAKER) (test code = [facility], 1538) 42281: Provider Enrollment Specialist/Techni logan ID = [id number] for INDIRA MOODY POCT-GLUCOSE [id number] 07:53:00 Test Item Value Reference Range Interpretation Comments POC-GLUCOSE METER 120 mg/dL 70-110 H : TESTED A T [facility] 6720 (BEAKER) (test code = [facility], 1538) 30086: Provider Enrollment Specialist/Techni logan ID = [id number] for INDIRA SCHERER [id number] 05:52:00 Test Item Value Reference Range Interpretation Comments PHOSPHORUS (BEAKER) (test code = 4.0 mg/dL 2.3-4.7 604) Provider Enrollment Specialist ID - VARSHA [id number] 05:52:00 Test Item Value Reference Range Interpretation Comments MAGNESIUM (BEAKER) (test code = 2.0 mg/dL 1.6-2.6 627) Provider Enrollment Specialist ID - VARSHA MBASIC METABOLIC [id number] 05:52:00 Test Item Value Reference Range Interpretation [...] S NOT APPLICABLE FOR DIALYSIS PATIEN TS. Provider Enrollment Specialist ID - VARSHA MPROTHROMBIN TIME/[id number] 05:51:00 Test Item Value Reference Range Interpretation [...] INR is2.5-3.5 for patients wiht mechanical heart valves.[id number] 05:51:00 Test Item Value Reference Range Interpretation [...] 0-0 (BEAKER) (test code = 413) POCT-GLUCOSE [id number] 21:17:00 Test Item Value Reference Range Interpretation Comments POC-GLUCOSE METER 152 mg/dL 70-110 H : TESTED A T [facility] 6720 (BEAKER) (test code = [facility], 1538) 94937: Provider Enrollment Specialist/Techni logan ID = [id number] for [place] PANG POCT-GLUCOSE [id number] 11:38:00 Test Item Value Reference Range Interpretation Comments POC-GLUCOSE METER 111 mg/dL 70-110 H : TESTED A T [facility] 6720 (BEAKER) (test code = [facility], 1538) 49697: Provider Enrollment Specialist/Techni logan ID = [id number] for YENNY NARVAEZ B-type Natriuretic Factor (BNP)2019-11-16 11:10:00 Test Item Value Reference Range Interpretation Comments BNP (test code = 17029-7) 157 pg/mL 0-100 H JANETTE (test code = JANETTE) Provider Enrollment Specialist ID - AAISACID Lab Interpretation (test Abnormal code = 94953-2) [facility]2019-11-16 11:10:00 Test Item Value Reference Range Interpretation Comments B-TYPE NATRIURETIC PEPTIDE (BEAKER) 157 pg/mL 0-100 H (test code = 700) Provider Enrollment Specialist ID - AADANIECOMPREHENSIVE METABOLIC [id number] 11:05:00 Test Item Value Reference Range Interpretation [...] S NOT APPLICABLE FOR DIALYSIS PATIEN TS. Provider Enrollment Specialist ID - AAHAMIDPROTHROMBIN TIME/[id number] 10:50:00 Test Item Value Reference Range Interpretation [...] mechanical heart valves.CBC W/PLT COUNT & AUTO [id number] 10:44:00 Test Item Value Reference Range Interpretation [...] PERCENT (BEAKER) (test code = 2801) POCT-GLUCOSE [id number] 08:18:00 Test Item Value Reference Range Interpretation Comments POC-GLUCOSE METER 141 mg/dL 70-110 H : TESTED A T [facility] 6720 (BEAKER) (test code = [facility], 1538) 29241: Provider Enrollment Specialist/Techni logan ID = [id number] for MATHUR NNY, MURTAZA POCT-GLUCOSE [id number] 22:29:00 Test Item Value Reference Range Interpretation Comments POC-GLUCOSE METER 172 mg/dL 70-110 H : TESTED A T [facility] 6720 (BEAKER) (test code = [facility], 1538) 56623: Provider Enrollment Specialist/Techni logan ID = [id number] for PH ILIP, CHEPE POCT-GLUCOSE [id number] 18:30:00 Test Item Value Reference Range Interpretation Comments POC-GLUCOSE METER 176 mg/dL 70-110 H : TESTED A T [facility] 6720 (BEAKER) (test code = [facility], 1538) 27232: Provider Enrollment Specialist/Techni logan ID = [id number] for MATHUR NNY, MURTAZA BONE AND/OR JOINT IMAGING, WHOLE [id number] 16:33:00FINAL REPORT PROCEDURE: BONE SCAN, WHOLE BODY CPT CODE: 23584 PAT CATION: Lung cancer PROTOCOL: 21.5 mCi [...] MDReport Verified Date/Time: 11/03/2019 16:33:30 Reading Location: [address] Reading Room [place] bone scan whole [id number] 16:33:00Interface, External Ris In - 11/03/2019 4:35 PM CSTFINAL REPORT PROCEDURE: BONE SCAN, WHOLE BODY CPT CODE: 92267 INDICATION: Lung cancer PROTOCOL: 21.5 mCi of [...] were recent chest CT. Signed: Blane Townsend MDRadam[facility] Verified Date/Time: 11/03/2019 16:33:30 Reading Location: [address] [facility] [id number] 16:18:00Addendum BeginsREPORT STATUS:A I have reviewed the [...] Miranda Verified Date/Time: 11/03/2019 16:18:17 Reading Location: [place] [id number] Angio Body Reading RoomAddendum EndsFINAL REPORT CT [...] performed a few days ago by the [employer] [facility] Radiologist. Refer to formal dictation for details, [...] ago. Refer to formal CT report by [employer] Radiologist for details. Pertinentfindings include emphysematous changes [...] dictated regarding the non-vascular findings by the [employer] Radiologist. Signed: Ricardo Broussard MDReport Verified Date/Time: 11/03/2019 07:39:57 CT, CTA, [id number] 16:18:00Addendum BeginsREPORT STATUS:A I have reviewed the [...] Mirandaeport Verified Date/Time: 11/03/2019 16:18:17 Reading Location: [place] [address] Angio Body Reading RoomAddendum EndsFINAL REPORT CT [...] For reference purpose, per [employer]ol[employer] R noel, recommendation are as follows: CT perimeter between 56.5-62.8 mm (23 mm valve); 62.8-72.3 mm (26 mm valve); 72.3-81.7 mm (29 mm valve); and 81.7-94.2. mm (34 mm valve). For reference purpose, per Anali Edge noel, recommendation are as follows: 23mm valve is [...] performed a few days ago by the [employer] Radiologist. Refer to formal dictation for details, [...] ago. Refer to formal CT report by [employer] Radiologist for details. Pertinentfindings include emphysematous changes [...] dictated regarding the non-vascular findings by the [employer] Radiologist. Signed: Ricardo Broussardeport Verified Date/Time: 11/03/2019 07:39:57 POCT-GLUCOSE [id number] 11:34:00 Test Item Value Reference Range Interpretation Comments POC-GLUCOSE METER 109 mg/dL 70-110 : TESTED A T [facility] 6720 (BEAKER) (test code = [employer] Performance Lab [facility], 1538) 0[address]71: Provider Enrollment Specialist/Techni logan ID = [id number] for MURTAZA MEDINA POCT-GLUCOSE [id number] 08:10:00 Test Item Value Reference Range Interpretation Comments POC-GLUCOSE METER 115 mg/dL 70-110 H : TESTED A T [facility] 6720 (BEAKER) (test code = ON24 R [facility], 1538) 96980: Provider Enrollment Specialist/Techni logan ID = [id number] for MURTAZA MEDINA CTA abdomen & [id number] 07:39:00Interface, External Ris In - 11/03/2019 4:20 [...] MDReport Verified Date/Time: 11/03/2019 16:18:17 Reading Location: [place] [address] Angio Body Reading RoomAddendum EndsFINAL REPORT CT angiography of the thoracoabdominal aorta and pelvic arteries, 02 November 2019 INDICATION: This is a 64 year old female with a diagnosis of aortic stenosis, presents for preprocedure TAVR assessment. TECHNIQUE:Spiral acquisition before and during intravenous contrast administration using a [employer]ih[employer] multidetector CT scanner. Images were obtained before [...] ago. Refer to formal CT report by [employer] [facility] Radiologist for details. Pertinent findings include emphysematous [...] dictated regarding the non-vascular findings by the [employer] Radiologist. Signed: Ricardo Broussard [facility] Date/Time: 11/03/2019 07:39:57 [facility] 07:39:00Interface, External Ris In - [...] and bilateral salpingo- oophorectomy. Signed: David Miranda MDReport Verified Date/Time: 11/03/2019 16:18:17 Reading Location: [place] [address] Angio Body Reading RoomAddendum EndsFINAL REPORT CT [...] For reference purpose, per [employer] Evol[employer] R brochsamreen, recommendation are as follows: CT perimeter between [...] performed a few days ago by the [employer] Radiologist. Refer to formal dictation for details, [...] ago. Refer to formal CT report by [employer] Radiologist for details. Pertinent findings include emphysematous [...] dictated regarding the non-vascular findings by the [employer] Radiologist. Signed: Ricardo Broussard [facility] Ver[facility] Date/Time: 11/03/2019 07:39:57 [facility] W/PLT COUNT & AUTO DIFFERENTIAL 2019-11-03 [...] 0-1 PERCENT (BEAKER) (test code = 2801) [id number] 05:13:00 Test Item Value Reference Range Interpretation Comments PHOSPHORUS (BEAKER) (test code = 3.4 mg/dL 2.3-4.7 604) Provider Enrollment Specialist ID - KESHIA [id number] 05:13:00 Test Item Value Reference Range Interpretation Comments MAGNESIUM (BEAKER) (test code = 2.0 mg/dL 1.6-2.6 627) Provider Enrollment Specialist ID - KESHIA LCOMPREHENSIVE METABOLIC [id number] 05:13:00 Test Item Value Reference Range Interpretation [...] S NOT APPLICABLE FOR DIALYSIS PATIEN TS. Provider Enrollment Specialist ID - PIAYA LPOCT-GLUCOSE [id number] 22:07:00 Test Item Value Reference Range Interpretation Comments POC-GLUCOSE METER 157 mg/dL 70-110 H : Notified RN/MD: (MIKE) (test code = TESTED AT [facility] 7689 2500) [facility], [address]: Provider Enrollment Specialist/Techni logan ID = [id number] for CHEN LI Carotid doppler [id number] 18:11:58Ejection FractionSEASTERN [facility] ECHO HEARTLAB MKCKESSON CPACSRight Impression1. There is [...] of Study 11/02/2019 Age 64 Visit Number [id number] Gender Female Accession Number [id number] Date of 1955 Referring Minna Cadet Room Number C634 Physician Rodrigo Manager Customer Amy De La Paz Interpreting Christa Carter [...] the left side. - Additional Measurements:ICAPSV/CCAPSV 0.79.ICAEDV/CCAEDV 0.95.[facility] POCT-GLUCOSE [id number] 17:42:00 Test Item Value Reference Range Interpretation Comments POC-GLUCOSE METER 111 mg/dL 70-110 H : [facility] ([facility]) (test code = [facility], 153) 65470: Provider Enrollment Specialist/Techni logan ID = [id number] for YULIA OJEDA POCT-GLUCOSE [id number] 13:32:00 Test Item Value Reference Range Interpretation Comments POC-GLUCOSE METER 125 mg/dL 70-110 H : [facility] ([facility]) (test code = [facility], 153) [address]646: Provider Enrollment Specialist/Techni logan ID = [id number] for VITOR OJEDAA POCT-GLUCOSE [id number] 13:17:00 Test Item Value Reference Range Interpretation Comments POC-GLUCOSE METER 123 mg/dL 70-110 H : Notified RN/MD: ([facility]) (test code = [facility] 1538) [facility], [address]: Provider Enrollment Specialist/Techni logan ID = [id number] for TH OMAS, COSHA POCT-GLUCOSE [id number] 10:19:00 Test Item Value Reference Range Interpretation Comments POC-GLUCOSE METER 116 mg/dL 70-110 H : TESTED A T [facility] 6720 ([facility]) (test code = [facility], 153) [address]77: Provider Enrollment Specialist/Techni logan ID = [id number] for TH OMAS, COSHA [id number] 05:40:00 Test Item Value Reference Range Interpretation Comments PHOSPHORUS ([facility]) (test code = 3.0 mg/dL 2.3-4.7 604) Provider Enrollment Specialist ID - RAMIRO [id number] 05:40:00 Test Item Value Reference Range Interpretation Comments MAGNESIUM (BEAKER) (test code = 2.1 mg/dL 1.6-2.6 627) Provider Enrollment Specialist ID Sheridan RUBIO WCOMPREHENSIVE METABOLIC [id number] 05:40:00 Test Item Value Reference Range Interpretation [...] S NOT APPLICABLE FOR DIALYSIS PATIEN TS. Provider Enrollment Specialist ID Sheridan RUBIO WCBC W/PLT COUNT & AUTO [id number] 05:22:00 Test Item Value Reference Range Interpretation [...] PERCENT (BEAKER) (test code = 2801) POCT-GLUCOSE [id number] 22:30:00 Test Item Value Reference Range Interpretation Comments POC-GLUCOSE METER 173 mg/dL 70-110 H : TESTED A T [facility] 6720 (MIKE) (test code = [place], 1538) [address]: Provider Enrollment Specialist/Techni logan ID = [id number] for OC BIBIANA DIXON Pulmonary Funct Lab [id number] 17:02:00Leny Almonte, SALES ENGINEER, CLINICAL LABORATORY TECHNOLOGIST 11/01/2019 5:45 PMSLEHS PFT CHARTING REPORT Infection Control/Hand Hygiene procedures followed throughout the encounter with patient: YesPatient Identification Method: Patient name verified on armband, and Medical record on armband, Is the order complete?: Yes Account ID#: [id number] Name: Quiana Valladares Birthdate: 1955 Age: 64 [...] 98 98 - StudyDate: 11/01/19 Study Time: 170 ASSESSMENT History & Physical Mode of Arrival: [...] patient released from the lab without adverse outcome.[facility]2D Echo W/Doppler(CW/PW/Color)2019-11-01 16:21:59Ejection FractionSLEH ECHO HEARTLAB MKCKESSON CPACSInterface, External Ris In - 11/01/2019 4:22 PM CSTTransthoracic Echocardiography Report (TTE) Demographics Patient Name QUIANA VALLADARES Date of Study 11/01/2019 KARINA Gender Female Visit Number [id number] Race Room Number C634-2 Number Date of 1955 Referring Physician Helio Buitrago MD Age 64 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 Customer Delmar Gotti [facility] Photogrammetry Airplane Pilot Asaf Rankin Interpreting Sayda Asif Physician Procedure Type of Study TTE procedure:2DECHO [...] TR Velocity: 2.39 m/s TRGradient: 22.84 mmHgCHI [facility] State HospitalCT-GLUCOSE [id number] 13:31:00 Test Item Value Reference Range Interpretation Comments POC-GLUCOSE METER 187 mg/dL 70-110 H : Notified RN/MD: (MIKE) (test code = TESTED AT [place] [address]) [facility], [address]: Provider Enrollment Specialist/Techni logan ID = [id number] for MARCO RIVERA, [id number] 06:53:00 Test Item Value Reference Range Interpretation Comments ABO Grouping (test code = 2588) O Rh Factor (test code = 2589) POS [facility] [id number] 06:37:00 Test Item Value Reference Range Interpretation Comments POC-GLUCOSE METER 130 mg/dL 70-110 H : TESTED A T [place] [address] (MIKE) ([facility] = [facility], 1538) [address]: Provider Enrollment Specialist/Techni logan ID = [id number] for MIS JOYCE ISHAN [id number] 06:06:00 Test Item Value Reference Range Interpretation Comments PHOSPHORUS (BEAKER) (test code = 3.8 mg/dL 2.3-4.7 604) Provider Enrollment Specialist ID Sheridan RUBIO [id number] 06:06:00 Test Item Value Reference Range Interpretation Comments MAGNESIUM (BEAKER) (test code = 2.1 mg/dL 1.6-2.6 627) Provider Enrollment Specialist ID Sheridan RUBIO WCOMPREHENSIVE METABOLIC [id number] 06:06:00 Test Item Value Reference Range Interpretation [...] S NOT APPLICABLE FOR DIALYSIS PATIEN TS. Provider Enrollment Specialist ID Sheridan RUBIO WPROTHROMBIN TIME/[id number] 06:00:00 Test Item Value Reference Range Interpretation [...] mechanical heart valves.CBC W/PLT COUNT & AUTO [id number] 05:30:00 Test Item Value Reference Range Interpretation [...] PERCENT (BEAKER) (test code = 2801) POCT-GLUCOSE [id number] 00:13:00 Test Item Value Reference Range Interpretation Comments POC-GLUCOSE METER 148 mg/dL 70-110 H : TESTED A T [facility] 6720 (BEAKER) (test code = [facility], [facility]) [address]: Provider Enrollment Specialist/Techni logan ID = [id number] for PE ISIAH, ISHAN POCT-GLUCOSE [id number] 22:12:00 Test Item Value Reference Range Interpretation Comments POC-GLUCOSE METER 140 mg/dL 70-110 H : TESTED A T [facility] 6720 (BEAKER) (test code = [facility], [facility]) [address]: Provider Enrollment Specialist/Techni logan ID = [id number] for PE ISIAH, ISHAN POCT-GLUCOSE [id number] 17:48:00 Test Item Value Reference Range Interpretation Comments POC-GLUCOSE METER 136 mg/dL 70-110 H : TESTED A T [facility] 6720 (BEAKER) (test code = [facility], 1538) [address]: Provider Enrollment Specialist/Techni logan ID = [id number] for DA VIS, KEYAIRA POCT-GLUCOSE [id number] 08:06:00 Test Item Value Reference Range Interpretation Comments POC-GLUCOSE METER 186 mg/dL 70-110 H : TESTED A T [facility] 6720 (BEAKER) (test code = [facility], [facility]8) [address]: Provider Enrollment Specialist/Techni logan ID = [id number] for MALINDA PANG POCT-GLUCOSE [id number] 06:43:00 Test Item Value Reference Range Interpretation Comments POC-GLUCOSE METER 118 mg/dL 70-110 H : TESTED Chandan Mac [facility] 6720 (MIKE) (test code = [facility] [place], 1538) [address]: Provider Enrollment Specialist/Techni logan ID = [id number] for MESERET IVORY CT, CHEST WITH IV CONTRAST- PE TEST [id number] 18:23:00Reason for exam:- >chest painWhat is the [...] Cox MDReport Verified Date/Time:10/30/2019 18:23:35 Reading Location: [facility] B1 C013Y CT Body Reading Room CT [...] 3-4 mm bilateral pulmonary nodules. Signed: Vale Coxeport Verified Date/Time: 10/30/2019 18:23:35 Reading Location: [facility] B1 C013Y CT Body Reading Room [facility] NATRI[facility] FA[facility] (BNP)2019-10-30 16:35:00 Test Item Value Reference Range Interpretation Comments B-TYPE NATRIURETIC PEPTIDE (BEAKER) 360 pg/mL 0-100 H (test code = 700) Provider Enrollment Specialist ID - BSTroponin [id number] 16:34:00 Test Item Value Reference Range Interpretation Comments Troponin I (test code = <0.01 0-0.03 49989-4) JANETTE (test code = JANETTE) Troponin I [...] BS Lab Interpretation (test Normal code = 75768-3) [facility] [id number] 16:34:00 Test Item Value Reference Range Interpretation [...] failure, acidosis, acute neurological disease, and persistent tachyarrhythmia.Provider Enrollment Specialist ID - [id number] 16:28:00 Test Item Value Reference Range Interpretation Comments MAGNESIUM (BEAKER) (test code = 1.9 mg/dL 1.6-2.6 627) Provider Enrollment Specialist ID - BSBASIC METABOLIC [id number] 16:28:00 Test Item Value Reference Range Interpretation [...] S NOT APPLICABLE FOR DIALYSIS PATIEN TS. Provider Enrollment Specialist ID - [id number] 16:26:00 Test Item Value Reference Range Interpretation [...] mechanical heart valves.CBC W/PLT COUNT & AUTO [id number] 16:21:00 Test Item Value Reference Range Interpretation [...] = 2801) RAD, CHEST, 1 VIEW, NON [id number] 15:21:00Reason for exam:->chest pain FINAL REPORT INDICATION: chest pain COMPARISON: None TECHNIQUE: AP and lateral view of the chest. FINDINGS: Lungs and pleura: Clear lungs. No effusion.Heart and mediastinum: Normal heart size. Unremarkable mediastinal contours.Osseous structures: No acute abnormality.Other: Tip overlies the SVC. IMPRESSION: No acute intrathoracic abnormality. Signed: Arlyn Persaud MDReport Verified Date/Time: 10/30/2019 15:21:39 Reading Location: [facility] Radiology Reading Room
[2020-05-06] MEDS ORDERED: ONDANSETRON 4 MG/2 ML VIAL ONE (01:50)
[2020-05-06] MEDS ORDERED: MORPHINE 4 MG/ML SYR ONE (01:50)
[2020-05-06 02:14] LABS: Absolute Lymphocytes (CBC) 1.3 K/uL (0.7-4.9); Basophils % 0.4 % (0-1.3); Hematocrit 32.9 % (36.0-45.0); Lymphocytes % 10.8 % (15.3-44.8); MPV 7.2 fL (7.6-11.3); RBC Red Blood Cell Count 3.88 M/uL (3.86-4.86)
[2020-05-06] MEDS ORDERED: PIPER/TAZO/NS 3.375gm 3.375 GM/100 ML BAG ONE (02:30)
[2020-05-06 02:39] LABS: BUN Blood Urea Nitrogen 13 mg/dL (7-18); Bicarbonate 20 mmol/L (21-32); Glucose Level 122 mg/dL (74-106); Potassium 3.4 mmol/L (3.5-5.1); Sodium Level 138 mmol/L (136-145)
--- NOTE | 2020-05-06 02:42 | EDPHYS ---
Physician Documentation [facility] Name: Lisa Acosta Age: 64 yrs Sex: Female : 1955 Arrival Date: 05/06/2020 Time: 01:11 Bed 5 Private MD: ED Physician Juan Antonio Salazar HPI: 05/06 06:42 This 64 yrs old Female presents to ER via Wheelchair with complaints of Toe tw4 Injury. 06:42 The patient presents with pain. The complaints affect the left foot. Onset: The tw4 symptoms/episode began/occurred today. Modifying factors: The symptoms are alleviated by nothing, the symptoms are aggravated by nothing. The patient has not experienced similar symptoms in the past. Historical: - Allergies: 01:24 Bactrim DS; lp1 01:24 Sulfa (Sulfonamide Antibiotics); lp1 - Home Meds: 01:24 None [Active]; lp1 - PMHx: 01:24 36 radiations and 15 months of chemo after colon cancer.; colon cancer (February 10, 2016); lp1 Diabetes - NIDDM; Hypertension; - PSHx: 01:24 None; lp1 - Immunization history:: Adult Immunizations unknown, Last tetanus immunization: unknown. - Social history:: Smoking status: Patient reports the use of cigarette tobacco products, smokes one pack cigarettes per day. ROS: 06:42 MS/extremity: Positive for ecchymosis, erythema, pain, tenderness. tw4 06:42 Constitutional: Negative for fever, chills, and weight loss, Eyes: Negative for injury, pain, redness, and discharge, Cardiovascular: Negative for chest pain, palpitations, and edema, Respiratory: Negative for shortness of breath, cough, wheezing, and pleuritic chest pain, Abdomen/GI: Negative for abdominal pain, nausea, vomiting, diarrhea, and constipation, Skin: Negative for injury, rash, and discoloration, Neuro: Negative for headache, weakness, numbness, tingling, and seizure. Exam: 06:42 Constitutional: This is a well developed, well nourished patient who is awake, alert, tw4 and in no acute distress. Head/Face: Normocephalic, atraumatic. Eyes: Pupils equal round and reactive to light, extra-ocular motions intact. Lids and lashes normal. Conjunctiva and sclera are non-icteric and not injected. Cornea within normal limits. Periorbital areas with no swelling, redness, or edema. Cardiovascular: Regular rate and rhythm with a normal S1 and S2. No gallops, murmurs, or rubs. Normal PMI, no JVD. No pulse deficits. Respiratory: Lungs have equal breath sounds bilaterally, clear to auscultation and percussion. No rales, rhonchi or wheezes noted. No increased work of breathing, no retractions or nasal flaring. Abdomen/GI: Soft, non-tender, with normal bowel sounds. No distension or tympany. No guarding or rebound. No evidence of tenderness throughout. Back: No spinal tenderness. No costovertebral tenderness. Full range of motion. Neuro: Awake and alert, GCS 15, oriented to person, place, time, and situation. Cranial nerves II-XII grossly intact. Motor strength 5/5 in all extremities. Sensory grossly intact. Cerebellar exam normal. Normal gait. 06:42 Musculoskeletal/extremity: Extremities: noted in the left first toe: ecchymosis, erythema. Vital Signs: 01:22 BP 103 / 65; Pulse 93; Resp 18; Temp 98.6(O); Pulse Ox 100% on R/A; Weight 52.16 kg lp1 (R); Height 5 ft. 5 in. (165.10 cm); Pain 6/10; 02:19 BP 107 / 65; Pulse 92; Resp 18; Pulse Ox 98% on R/A; mg2 03:23 BP 110 / 62; Pulse 83; Resp 16; Temp 97.8; Pulse Ox 100% on R/A; Pain 0/10; mt2 01:22 Body Mass Index 19.14 (52.16 kg, 165.10 cm) lp1 MDM: 01:16 Patient medically screened. tw4 03:21 Data reviewed: vital signs, nurses notes. Data interpreted: Pulse oximetry: tw4 Interpretation: normal. Test interpretation: by ED physician or midlevel provider: plain radiologic studies. Counseling: I had a detailed discussion with the patient and/or guardian regarding: the historical points, exam findings, and any diagnostic results supporting the discharge/admit diagnosis, lab results, radiology results. Physician consultation: Cesar Saldivar MD was contacted at 03:19. 06:42 Differential diagnosis: fracture, penetrating trauma, arthritis. tw4 05/06 01:20 Order name: Basic Metabolic Panel; Complete Time: 02:49 tw4 05/06 01:20 Order name: CBC with Diff tw4 05/06 02:17 Interpretation: Normal except: WBC 12.3; RBC 3.88; HGB 10.5; HCT 32.9; MCHC 31.9; PLT tw4 556; RDW 20.2; MPV 7.2; YING% 83.0; LYM% 10.8; NEUT A 10.2. 05/06 01:20 Order name: Lactate; Complete Time: 02:49 tw4 05/06 01:20 Order name: Blood Culture Adult (2) tw4 05/06 02:15 Order name: CBC Smear Scan EDMS 05/06 03:10 Order name: COVID-19 mg2 05/06 01:20 Order name: Foot Left 2 View XRAY tw4 05/06 03:11 Order name: CORONAVIRUS EDMS 05/06 03:16 Order name: Basic Metabolic Panel EDMS 05/06 03:16 Order name: Basic Metabolic Panel EDMS 05/06 03:16 Order name: CBC with Automated Diff EDMS 05/06 03:16 Order name: CBC with Automated Diff EDMS 05/06 01:20 Order name: IV Saline Lock; Complete Time: 01:33 tw4 05/06 01:20 Order name: Labs collected and sent; Complete Time: 01:33 tw4 Administered Medications: 01:42 Drug: Zofran (Ondansetron) 4 mg Route: IVP; Site: right antecubital; mg2 02:01 Follow up: Response: No adverse reaction mg2 01:43 Drug: morphine 4 mg Route: IVP; Site: right antecubital; mg2 02:01 Follow up: Response: No adverse reaction; Marked relief of symptoms mg2 02:23 Drug: Zosyn 3.375 grams Route: IVPB; Infused Over: 60 mins; Site: right antecubital; mt2 03:24 Follow up: Response: No adverse reaction; IV Status: Completed infusion mt2 02:36 Drug: NS 0.9% 1000 ml Route: IV; Rate: 1000 ml; Site: right antecubital; mg2 03:24 Follow up: Response: No adverse reaction; IV Status: Completed infusion mt2 03:00 Drug: vancoMYCIN 1 grams Route: IVPB; Infused Over: 2 hrs; Site: right antecubital; mt2 Disposition: 05/06/20 02:42 Hospitalization ordered by Cesar Saldivar for Inpatient Admission. Preliminary diagnosis is Cellulitis of left lower limb. - Bed requested for Telemetry/MedSurg (Inpatient). - Status is Inpatient Admission. mg2 - Condition is Fair. - Problem is new. - Symptoms are unchanged. Signatures: Dispatcher [employer] EDMS Rebecca Beatty, RN RN lp1 Edwar Hernández, LIFE ENRICHMENT SPECIALIST-C LIFE ENRICHMENT SPECIALIST-Cla1 Katharine Torre, RN RN cg Juan Antonio Salazar MD MD tw4 Kimani Alamo RN RN mg2 aJne Dooley RN RN mt2 Corrections: (The following items were deleted from the chart) 03:09 02:42 Hospitalization Ordered by Boni Dawn MD for Inpatient Admission. Preliminary tw4 diagnosis is Cellulitis of left lower limb. Bed requested for Telemetry/MedSurg (Inpatient). Status is Inpatient Admission. Condition is Fair. Problem is new. Symptoms are unchanged. tw4 03:37 03:09 05/06/2020 02:42 Hospitalization Ordered by Cesar Saldivar MD for Inpatient cg Admission. Preliminary diagnosis is Cellulitis of left lower limb. Bed requested for Telemetry/MedSurg (Inpatient). Status is Inpatient Admission. Condition is Fair. Problem is new. Symptoms are unchanged. 4 04:11 03:37 05/06/2020 02:42 Hospitalization Ordered by Cesar Saldivar MD for Inpatient mg2 Admission. Preliminary diagnosis is Cellulitis of left lower limb. Bed requested for Telemetry/MedSurg (Inpatient). Status is Inpatient Admission. Condition is Fair. Problem is new. Symptoms are unchanged. cg
--- NOTE | 2020-05-06 02:42 | ER ---
Nurse's Notes [facility] Name: Lisa Acosta Age: 64 yrs Sex: Female : 1955 Arrival Date: 05/06/2020 Time: 01:11 Bed 5 Private MD: Diagnosis: Cellulitis of left lower limb Presentation: 05/06 01:22 Chief complaint: Patient states: Injury to left great toe, some bleeding noted; patient lp1 unable to recall injury to toe; states "It has been like this since 2 in the afternoon". Coronavirus screen: Client denies travel out of the [place] in the last 14 days. At this time, the client does not indicate any symptoms associated with coronavirus-19. Ebola Screen: No symptoms or risks identified at this time. Initial Sepsis Screen: Does the patient meet any 2 criteria? No. Patient's initial sepsis screen is negative. Does the patient have a suspected source of infection? No. Patient's initial sepsis screen is negative. Risk Assessment: Do you want to hurt yourself or someone else? Patient reports no desire to harm self or others. Onset of symptoms was May 05, 2020. 01:22 Method Of Arrival: Wheelchair lp1 01:22 Acuity: KIRAN 4 lp1 Historical: - Allergies: 01:24 Bactrim DS; lp1 01:24 Sulfa (Sulfonamide Antibiotics); lp1 - Home Meds: 01:24 None [Active]; lp1 - PMHx: 01:24 36 radiations and 15 months of chemo after colon cancer.; colon cancer (February 10, 2016); lp1 Diabetes - NIDDM; Hypertension; - PSHx: 01:24 None; lp1 - Immunization history:: Adult Immunizations unknown, Last tetanus immunization: unknown. - Social history:: Smoking status: Patient reports the use of cigarette tobacco products, smokes one pack cigarettes per day. Screenin:24 Abuse screen: Denies threats or abuse. Denies injuries from another. Nutritional lp1 screening: No deficits noted. Tuberculosis screening: No symptoms or risk factors identified. 01:44 Fall Risk IV access (20 points). mg2 Assessment: 01:43 General: Appears in no apparent distress. comfortable, Behavior is calm, cooperative. mg2 Pain: Complains of pain in left foot. Neuro: Level of Consciousness is awake, obeys commands, lethargic, Oriented to person, place, time, situation. Cardiovascular: Capillary refill < 3 seconds Patient's skin is warm and dry. Respiratory: Airway is patent Respiratory effort is even, unlabored, Respiratory pattern is regular, symmetrical. GI: No signs and/or symptoms were reported involving the gastrointestinal system. : No signs and/or symptoms were reported regarding the genitourinary system. EENT: No signs and/or symptoms were reported regarding the EENT system. Derm: Skin is intact, is healthy with good turgor, Skin is pink, warm \\T\\ dry. normal. Musculoskeletal: Circulation, motion, and sensation intact. Capillary refill < 3 seconds. 02:23 Reassessment: Patient and/or family updated on plan of care and expected duration. Pain mt2 level reassessed. Patient is alert, oriented x 3, equal unlabored respirations, skin warm/dry/pink. General: Appears comfortable, Behavior is cooperative. Pain: Denies pain. 02:35 Reassessment: lactate result 4.[address] Salazar. mg2 03:23 Reassessment: Patient and/or family updated on plan of care and expected duration. Pain mt2 level reassessed. Patient is alert, oriented x 3, equal unlabored respirations, skin warm/dry/pink. Patient denies pain at this time. General: Appears comfortable, Behavior is cooperative. Vital Signs: 01:22 BP 103 / 65; Pulse 93; Resp 18; Temp 98.6(O); Pulse Ox 100% on R/A; Weight 52.16 kg lp1 (R); Height 5 ft. 5 in. (165.10 cm); Pain 6/10; 02:19 BP 107 / 65; Pulse 92; Resp 18; Pulse Ox 98% on R/A; mg2 03:23 BP 110 / 62; Pulse 83; Resp 16; Temp 97.8; Pulse Ox 100% on R/A; Pain 0/10; mt2 01:22 Body Mass Index 19.14 (52.16 kg, 165.10 cm) lp1 ED Course: 01:11 Patient arrived in ED. am2 01:13 Jane Dooley RN is Primary Nurse. mt2 01:16 Juan Antonio Salazar MD is Attending Physician. tw4 01:23 Triage completed. lp1 01:23 Arm band placed on. lp1 01:25 Inserted saline lock: 20 gauge in right antecubital area, using aseptic technique. mg2 Blood collected. 01:43 Patient has correct armband on for positive identification. mg2 01:43 No provider procedures requiring assistance completed. mg2 01:49 Foot Left 2 View XRAY In Process Unspecified. EDMS 01:51 Wound care: to abrasion, located on plantar aspect of right first toe was cleaned with mt2 soap and water. 02:41 Boni Dawn MD is Hospitalizing Provider. tw4 03:09 Hospitalizing Provider role handed off by Boni Dawn MD tw4 03:09 Cesar Saldivar MD is Hospitalizing Provider. tw4 04:03 Patient admitted, IV remains in place. mt2 Administered Medications: 01:42 Drug: Zofran (Ondansetron) 4 mg Route: IVP; Site: right antecubital; mg2 02:01 Follow up: Response: No adverse reaction mg2 01:43 Drug: morphine 4 mg Route: IVP; Site: right antecubital; mg2 02:01 Follow up: Response: No adverse reaction; Marked relief of symptoms mg2 02:23 Drug: Zosyn 3.375 grams Route: IVPB; Infused Over: 60 mins; Site: right antecubital; mt2 03:24 Follow up: Response: No adverse reaction; IV Status: Completed infusion mt2 02:36 Drug: NS 0.9% 1000 ml Route: IV; Rate: 1000 ml; Site: right antecubital; mg2 03:24 Follow up: Response: No adverse reaction; IV Status: Completed infusion mt2 03:00 Drug: vancoMYCIN 1 grams Route: IVPB; Infused Over: 2 hrs; Site: right antecubital; mt2 Outcome: 02:42 Decision to Hospitalize by Provider. tw4 04:03 Admitted to Med/surg accompanied by ava stevens 230Sahil RN mt2 04:03 Condition: stable 04:03 Instructed on the need for admit. 04:11 Patient left the ED. mg2 Signatures: Dispatcher [employer] EDMS Rebecca Beatty RN RN lp1 Gisselle Portillo am2 Juan Antonio Salazar MD MD tw4 Kimani Alamo RN RN mg2 Miah, Jane, RN RN mt2
[2020-05-06] MEDS ORDERED: NA CHLORIDE 0.9% 1,000 ML ONE (02:48)
[2020-05-06] MEDS ORDERED: NA CHLORIDE 0.9% 250 ML ONE (03:18)
[2020-05-06] MEDS ORDERED: VANCOMYCIN 1 GM/VIAL ONE (03:18)
[2020-05-06 04:33] VITALS: BMI 17.2
[2020-05-06 04:58] LABS: Anisocytosis 1+; Blood Morphology Comment NOTED (NOT SEEN); Platelet Estimate INCR; White Blood Cell Scan OK (OK)
[2020-05-06 06:30] VITALS: O2SAT 96
[2020-05-06] MEDS ORDERED: AMPICILLIN/SULBACTAM 3GM/VIAL ONE (06:35)
[2020-05-06] MEDS ORDERED: NA CHLORIDE 0.9% 100 ML ONE (06:39)
[2020-05-06] MEDS: AMPICILLIN/SULBACT 3 GM in NA CHLORIDE 0.9% 100 ML IVPB SCH ×2 (06:44→12:34)
--- NOTE | 2020-05-06 08:22 | RAD REPORT ---
EXAM DESCRIPTION: RAD - Foot Left 2 View - 05/06/2020 1:59 am CLINICAL HISTORY: PAINtrauma to the left first toe COMPARISON: No comparisons FINDINGS: No fracture, dislocation or periosteal reaction. No acute or destructive bony process. No air or foreign body in the soft tissues. Degenerative change at the first MTP joint is minimal. IMPRESSION: Negative left foot examination for acute or significant finding.
[2020-05-06] MEDS ORDERED: NA CHLORIDE 0.9% 1,000 ML IV SCH ×2 (09:00→12:00)
[2020-05-06] MEDS ORDERED: THIAMINE 200 MG/2 ML INJ IVP SCH (09:00)
--- NOTE | 2020-05-06 11:33 | P.HP ---
Certification for Inpatient Patient admitted to: Inpatient With expected LOS: >2 Midnights Patient will require the following post-hospital care: Home Health Services Practitioner: I am a practitioner with admitting privileges, knowledge of patient current condition, hospital course, and medical plan of care. Services: Services provided to patient in accordance with Admission requirements found in Title 42 Section 412.3 of the Code of Federal Regulations Patient History Date of Service: 05/06/20 Primary Care Provider: christopher Reason for admission: Vascular insufficency of the left foot. History of Present Illness: Patient is an unfortunate woman who has been a colorful patient of mine recently. She has a history of cancer of the colon. 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 She possible has a primary in the lungs. She left [facility] AM a few weeks ago AMA. Her and her were in the parking lot. There was an open beer can in the car. They both denied drinking. She came to the hospital last night with a painful left foot. She does not recall any injuries. The great toe and the 4th toe had blackened discoloration of the toes. She had an negative foot xray and was admitted. This morning she is complaining of a cold foot and increased pain. As stated above the patient has an active cancer. She denies smoking and drinking. Her serum alcohol level was low. I may have considering the above history of non compliance. Regardless she is a high risk of clotting. She is not diabetic. Her highest a1c is 6.0 Allergies Sulfa (Sulfonamide Antibiotics) Allergy (Verified 04/03/20 21:11) Itching/Hives/Rash sulfamethoxazole [From Bactrim] Allergy (Verified 04/03/20 21:11) Itching/Hives/Rash trimethoprim [From Bactrim] Allergy (Verified 04/03/20 21:11) Itching/Hives/Rash Home Medications: Glucerna Shake [Glucerna*] 237 ml PO BID #60 can 04/12/20 Lidocaine 4% Patch [Lidoderm 5% Patch*] 1 patch TOP DAILY #30 patch 04/12/20 Multivit with Calcium,Iron,Min [Multiple Vitamins For Women] 1 each PO DAILY #90 tablet 04/12/20 Metformin HCl 500 mg PO BID 05/06/20 - Past Medical/Surgical History Has patient received pneumonia vaccine in the past: Yes Diabetic: Yes -: DM-2 -: HTN -: COLON CANCER -: Hernia Repair -: Hysterectomy - Family History Father -: Heart disease, Lung disease, Diabetes Mother -: Diabetes Brother -: Diabetes Notes: IDDM Sister -: Blood disorders - Social History Smoking Status: Former smoker Alcohol use: Yes CD- Drugs: No Caffeine use: Yes Place of Residence: Home Review of Systems 10-point ROS is otherwise unremarkable Musculoskeletal: Foot Pain (cold foot. Painful with black discoloration of the 1st and 4th left toe) Physical Examination - Vital Signs Temperature: 97.1 F Blood Pressure: 109/60 Pulse: 92 Respirations: 18 Pulse Ox (%): 95 - Physical Exam General: Alert, In no apparent distress HEENT: Atraumatic, PERRLA, Mucous membr. moist/pink, EOMI, Sclerae nonicteric Neck: Supple, 2+ carotid pulse no bruit, No LAD, Without JVD or thyroid abnormality Respiratory: Clear to auscultation bilaterally, Normal air movement Cardiovascular: Regular rate/rhythm, Normal S1 S2 Gastrointestinal: Normal bowel sounds, No tenderness Musculoskeletal: No warmth, Tenderness, Other (cold feet bilaterally. She has red and black discoloration of the L great toe and the plantar surface of the 4th toe is dark and hard. ) Integumentary: No rashes Neurological: Normal gait, Normal speech, Normal strength at 5/5 x4 extr, Normal tone, Normal affect Lymphatics: No axilla or inguinal lymphadenopathy - Studies Laboratory Data (last 24 hrs) 05/06/20 01:25: WBC 12.3 H, Hgb 10.5 L D, Hct 32.9 L D, Plt Count 556 H D 05/06/20 01:25: Sodium 138, Potassium 3.4 L, BUN 13, Creatinine 0.66, Glucose 122 H Microbiology Data (last 24 hrs): 05/06/20 03:10 Nasopharnyx Coronavirus COVID-19 PCR - Final 05/06/20 01:25 Blood - Blood Anaerobic Blood Culture - Final Assessment and Plan - Problems (Diagnosis) (1) Vascular insufficiency of extremity Current Visit: Yes Status: Acute Plan: Considering her history of cancer she is at high risk of clotting and occlusions. Will order coagulation studies and a CT angiogram. Will switch her antibiotics to Vanc and meropenem as per guidelines of vascular insufficency. Will start her on fluids. Will give her some iv morphine for pain. This is a bit tricky. Vascular insufficiency is very painful. However her history of alcoholism may make her a high risk for addiction and overdose. The patient may need to be transfered to [facility] in [place] for revascularization. Will consider starting her on Eliquis as well (2) Liver malignancy Current Visit: Yes Status: Chronic Plan: Squamous cell cancer. Possible primary in the lung. She has been referred to Dr. Collado. she has yet to see her. Her sister told the office she just wanted to be left alone. This was also seconded by the home health company we sent to her house. At this point it is important in her diagnosis. She is at high risk for clotting and occlusion. Qualifiers: Liver malignancy type: other carcinoma Qualified Code(s): C22.7 - Other specified carcinomas of liver (3) Non compliance with medical treatment Current Visit: Yes Status: Acute Plan: Have had a meeting with the animal cruelty investigation supervisor, Sebastian Knapp. Her prognosis is poor, she possible have alcohol issues. Lashing out is natural. I have asked if she wants hospice. Her response is she is not ready to give up. Will refer her to Dr. Kinsey. Have her follow up in the office and try treatment. A bit of fear and lashing out should be expected. She is only human after all. (4) Alcohol use Current Visit: No Status: Acute Plan: Currently negative blood work. She may actually not be alcoholic. As stated in the history her previous interaction have been inappropriate. With me she and her spouse are pleasant. With nursing not so much. Have discussed with her how alcoholism is a disease and makes people lash out in inappropriate way. We hate the disease, not our patient. Discharge Plan: Home Plan to discharge in: Greater than 2 days - Advance Directives Does patient have a Living Will: No Does patient have a Durable POA for Healthcare: No - Code Status/Comfort Care Code Status Assessed: No Code Status: Full Code Physician Review: Patient Assessed, Agree with Above Assessment and Plan Critical Care: No Time Spent Managing Pts Care (In Minutes): 70
[2020-05-06] MEDS ORDERED: MORPHINE 4 MG/ML SYR IM PRN (11:52)
[2020-05-06] MEDS ORDERED: IBUPROFEN 100 MG/5 ML UCUP PO PRN (11:53)
[2020-05-06] MEDS ORDERED: MULTIVITAMIN TAB PO ONE (12:15)
[2020-05-06 12:25] LABS: Protime INR 1.11
[2020-05-06] MEDS ORDERED: NICOTINE 14 MG/PAT TD SCH (13:00)
[2020-05-06] MEDS ORDERED: THIAMINE 200 MG/2 ML INJ IM SCH (13:00)
[2020-05-06] MEDS ORDERED: Meropenem 1,000 MG in NA CHLORIDE 0.9% 100 ML IV SCH (13:00)
--- NOTE | 2020-05-06 13:12 | RAD REPORT ---
EXAM DESCRIPTION: CT - Lower Ext Angio - 05/06/2020 12:34 pm CLINICAL HISTORY: Left foot pain. Decreased pulses left foot. Peripheral vascular disease COMPARISON: none TECHNIQUE: Computed tomography angiography of the mid pelvis and both lower extremities obtained. 10 0 cc Isovue 370 administered intravenously. 3D MIPS reconstruction performed All CT scans are performed using dose optimization technique as appropriate and may include automated exposure control or mA/KV adjustment according to patient size. FINDINGS: The left external iliac artery is occluded. The right external iliac artery is patent. A graft is present between the right and left common femoral arteries. The graft is patent. Mild disease involves the right lower extremity arteries. The left common femoral, left superficial femoral and left deep femoral arteries are patent without s ignificant disease. A 4.5 centimeter stent has been placed into the left popliteal artery. The lumen of the stent 3 emet meters. It is not clearly opacified with contrast. Left peroneal artery is thready. The left dorsalis pedis and left posterior tibial arteries are paten t but diminished in caliber. IMPRESSION: Occlusion of the left external iliac artery Graft between the right and left common femoral artery status patent Left popliteal stent. Due to the small size of the lumen and surrounding density of the stent it is d ifficult to determine if the stent is patent. However, it is not clearly opacified and an occlusion i s suspected. If clinically indicated angiography may helpful.
[2020-05-06] MEDS ORDERED: HEPARIN/D5W 25,000 UNIT/500 ML BAG IV SCH (16:00)
[2020-05-06 16:46] VITALS: BP 100/56; TEMP 97.2
[2020-05-06] MEDS ORDERED: ENOXAPARIN 40 MG/0.4 ML SQ SCH (17:00)
[2020-05-06] MEDS ORDERED: Meropenem 1000 MG/VIAL IV SCH (21:00)
--- NOTE | 2020-05-07 07:44 | P.DS ---
Admission Date: 05/06/20 Discharge Date: 05/07/20 Primary Care Provider: christopher Disposition: TRANSFER TO [facility] Reason for Admission: Vascular insufficency of the left foot. - Problems (1) Vascular insufficiency of extremity Status: Acute (2) Liver malignancy Status: Chronic Qualifiers: Liver malignancy type: other carcinoma Qualified Code(s): C22.7 - Other specified carcinomas of liver (3) Non compliance with medical treatment Status: Acute (4) Alcohol use Status: Acute Brief History of Present Illness: Patient is an unfortunate woman who has been a colorful patient of mine recently. She has a history of cancer of the colon. 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 She possible has a primary in the lungs. She left [facility] AM a few weeks ago AMA. Her and her were in the parking lot. There was an open beer can in the car. They both denied drinking. She came to the hospital last night with a painful left foot. She does not recall any injuries. The great toe and the 4th toe had blackened discoloration of the toes. She had an negative foot xray and was admitted. This morning she is complaining of a cold foot and increased pain. As stated above the patient has an active cancer. She denies smoking and drinking. Her serum alcohol level was low. I may have considering the above history of non compliance. Regardless she is a high risk of clotting. She is not diabetic. Her highest a1c is 6.0 Hospital Course: Patient was admitted for vascular insufficency. She had a ct angiogram which showed an occlusion of the left external illiac. Could not determine the lumen of the popliteal stent. We initiated a transfer to [facility] in [place]. I had spoken to the accepting vascular fellow. He was aware of the patient as she had a fem pop bypass with them 04/29. This was information the patient did not share. 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 The patient was discharged on Lovenox. It is unlikely she was not taking this as she never told us that she was on lovenox. As stated in my H&P She has a history of non compliance and possibly alcoholism. She was started on Heparin drip and transfered as this is a medical emergency. Referred to as a "foot attack". In the same way that that a heart attack is an occlusion of blood flow. Vital Signs/Physical Exam: Temp Pulse Resp BP Pulse Ox 97.2 F 80 17 100/56 L 97 05/06/20 16:00 05/06/20 16:00 05/06/20 16:00 05/06/20 16:00 05/06/20 16:00 General: Alert, In no apparent distress HEENT: Atraumatic, PERRLA, EOMI Neck: Supple, JVD not distended Respiratory: Clear to auscultation bilaterally, Normal air movement Cardiovascular: Regular rate/rhythm, Normal S1 S2 Gastrointestinal: Normal bowel sounds, No tenderness Musculoskeletal: No tenderness, Other (left foot cold, tender and blackened 1st and 4th toe) Integumentary: No rashes Neurological: Normal speech, Normal tone, Normal affect Lymphatics: No axilla or inguinal lymphadenopathy Laboratory Data at Discharge: WBC 12.3 K/uL (4.3-10.9) H 05/06/20 01:25 Hgb 10.5 g/dL (12.0-15.0) L D 05/06/20 01:25 Hct 32.9 % (36.0-45.0) L D 05/06/20 01:25 Plt Count 556 K/uL (152-406) H D 05/06/20 01:25 PT 13.1 SECONDS (9.5-12.5) H 05/06/20 12:10 INR 1.11 05/06/20 12:10 APTT 29.9 SECONDS (24.3-36.9) 05/06/20 12:10 Sodium 138 mmol/L (136-145) 05/06/20 01:25 Potassium 3.4 mmol/L (3.5-5.1) L 05/06/20 01:25 BUN 13 mg/dL (7-18) 05/06/20 01:25 Creatinine 0.66 mg/dL (0.55-1.3) 05/06/20 01:25 Glucose 122 mg/dL (74-106) H 05/06/20 01:25 Home Medications: Glucerna Shake [Glucerna*] 237 ml PO BID #60 can 04/12/20 Lidocaine 4% Patch [Lidoderm 5% Patch*] 1 patch TOP DAILY #30 patch 04/12/20 Multivit with Calcium,Iron,Min [Multiple Vitamins For Women] 1 each PO DAILY #90 tablet 04/12/20 Metformin HCl 500 mg PO BID 05/06/20 Diet: Regular Activity: Ad good Physician Review: Patient Assessed, Agree with Above Assessment and Plan Time spent managing pt's care (in minutes): 60
[2020-05-07] MEDS ORDERED: MULTIVIT W/ MINERAL TAB PO SCH (09:00)
[2020-05-07] MEDS ORDERED: LIDOCAINE 4% PATCH TOP SCH (09:00)
[2020-05-07] MEDS ORDERED: MULTIVIT WITH CALCIUM IRON MIN PO SCH (09:00)
[2020-05-07] MEDS ORDERED: THIAMINE 200 MG/2 ML INJ IM SCH (09:00)
== END 2020-05-06 17:36 | disposition short-term general hospital (02) | DRG 300 ==
LOC: ER 01:07 → 2ND 03:13
PROVIDERS: ADMIT Internal Medicine; ATTEND Internal Medicine
DX: I73.9 Peripheral vascular disease, unspecified (principal); C34.90 Malignant neoplasm of unspecified part of unspecified bronchus or lung; C22.7 Other specified carcinomas of liver; I74.3 Embolism and thrombosis of arteries of the lower extremities; I74.5 Embolism and thrombosis of iliac artery; I10 Essential (primary) hypertension; Z91.19 Patient's noncompliance with other medical treatment and regimen; Z88.1 Allergy status to other antibiotic agents; Z79.84 Long term (current) use of oral hypoglycemic drugs; Z79.899 Other long term (current) drug therapy; Z90.710 Acquired absence of both cervix and uterus; Z87.891 Personal history of nicotine dependence; Z85.038 Personal history of other malignant neoplasm of large intestine; Z20.828 Contact with and (suspected) exposure to other viral communicable diseases
CPT/HCPCS: 36415; 73706; 80048; 80320; 82947; 83605; 85025; 85379; 85610; 85730; 87040; 87205; 96365; 96375; 99285; J0295; J1644; J2185; J2405; J2543; J3370; J3411; J7030; J7050; Q9967; U0002